=== PATIENT | male | born 1970 | race African-American/Black ===

== ENCOUNTER 2017-01-31 13:18 | Emergency (ER) | payer OTHER ==
[~2017-01-31] VITALS: Ht 188 cm; Wt 132.0 kg
[~2017-01-31 13:18] MED LIST: ALPR1TAB3 PO; ESCI10TA17 PO; ESCI1TAB18 PO; FLUT0.15 NAE; METO100T44 PO; RTL20 PO; WARF5TAB7 PO; ZOLP10TA PO
[2017-01-31 13:23] VITALS: TEMP 37; Ht 188 cm; Wt 132.0 kg
[2017-01-31] MEDS ORDERED: OXYCODONE HCL IR 5 MG TAB (IMMEDIATE RELEASE) PO STA (13:48)
[2017-01-31] MEDS ORDERED: METHYLPREDNISOLONE 125 MG VIAL IV STA (13:48)
[2017-01-31] MEDS ORDERED: DiphenhydrAMINE HCL 50 MG/ML VIAL IV STA (13:48)
[2017-01-31] MEDS ORDERED: SODIUM CHLORIDE 0.9% 1000ML 1,000 ML IV STA (13:48)
--- NOTE | 2017-01-31 13:51 | EMERGENCY ROOM VISIT NOTE ---
History Report prepared by Chad: Rohan Renteria Under the Supervision of: Dr. Nasim Ramirez D.O. First contact with patient: 13:42 Chief Complaint: CHEST INJURY Stated Complaint: CHEST PAIN - HURT LIFTING AND BAR FELL ON HIM History of Present Illness The patient is a 46 year old male who presents to the Emergency Room with complaints of an acute chest injury that occurred yesterday. The patient was lifting weights when his left side gave out. The weights fell off of the bar then the bar hit his left chest / shoulder area. The patient woke up with significant pain / muscle spasm in the area. He notes swelling in the area along with bruising. The patient denies fevers or chills. He has had some nonproductive dry coughing. The patient is prescribed Coumadin for a history of multiple pulmonary emboli. He ran out of Coumadin and has been off of it for two weeks. The patient is also on Lexapro, Xanax, Ambien, and Ritalin. He is s/ o colorectal surgery for a fissure. The patient denies tobacco or alcohol use. Source of History: patient Onset: yesterday Position: chest (left) Quality: other (injury) Timing: other (acute) Associated Symptoms: + cough, No chills, No fevers Review of Systems See HPI for pertinent positives & negatives. A total of 10 systems reviewed and were otherwise negative. 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 (23) Pharyngitis (24) Pleuritic chest pain (25) Prediabetes (26) Substernal chest pain (27) Suspected pulmonary embolism Surgical Problems: (1) H/O colonoscopy (2) H/O esophagogastroduodenoscopy (3) History of muscle biopsy (4) History of rectal surgery (5) S/P cardiac catheterization Family History Blood clots FH: brain aneurysm MOTHER (mother, age 32) Social History Smoking Status: Never Smoker Alcohol Use: occasionally Drug Use: none Marital Status: single Housing Status: lives alone Occupation Status: disabled Current/Historical Medications Scheduled Alprazolam (Xanax), 1 MG PO TID Escitalopram (Lexapro), 10 MG PO DAILY Escitalopram Oxalate (Lexapro), 20 MG PO DAILY Methylphenidate (Ritalin), 20 MG PO BID Metoprolol Succ (Toprol Xl) (Toprol-Xl ), 100 MG PO DAILY Warfarin Sod (Jantoven), 10 MG PO DAILY Warfarin Sodium (Coumadin), 5 MG PO DAILY Zolpidem Tartrate (Ambien), 10 MG PO HS Scheduled PRN Fluticasone Propionate (Nasal) (Flonase Allergy Relief), 2 SPRAYS WALDEMAR DAILY PRN for ALLERGIC REACTION Oxycodone Immediate Rel Tab (Roxicodone Ir), 1-2 TAB PO Q4H PRN for Severe Pain Allergies Coded Allergies: Iodine (Verified Allergy, Severe, THROAT SWELLING, 01/31/17) 02/18/13: patient denies IV contrast allergy Patient has been pre-treated in the past with methylprednisolone and diphenhydramine without incident following IV dye administration. Shellfish (Verified Allergy, Severe, THROAT SWELLING, 01/31/17) Iodinated Diagnostic Agents (Verified Allergy, Unknown, swelling, 01/31/17) Plasma, Human (Verified Allergy, Unknown, ANAPHYLAXIS, 01/31/17) Acetaminophen (Verified Adverse Reaction, Unknown, GI ISSUES, 01/31/17) Hydrocodone (Verified Adverse Reaction, Unknown, GI ISSUES, 01/31/17) Physical Exam Vital Signs Date Time Temp Pulse Resp B/P Pulse Ox O2 Delivery O2 Flow Rate FiO2 01/31/17 17:25 96 20 152/89 96 Room Air 01/31/17 16:21 87 01/31/17 15:34 85 18 149/99 96 Room Air 01/31/17 14:18 97 01/31/17 14:18 87 18 146/102 97 Room Air 01/31/17 14:18 97 Room Air 01/31/17 13:23 37.0 89 18 151/96 94 Physical Exam GENERAL: Patient is awake, alert, and in no acute distress. Patient is resting comfortably and showing no signs of anxiety EYES: The conjunctivae are clear. The pupils are round and reactive. EARS, NOSE, MOUTH AND THROAT: The nose is without any evidence of any deformity. Mucous membranes are moist tongue is midline NECK: The neck is nontender and supple. RESPIRATORY: Normal respiratory effort is noted there is no evidence of wheezing rhonchi or rales CARDIOVASCULAR: Regular rate and rhythm noted there no murmurs rubs or gallops normal S1 normal S2 GASTROINTESTINAL: The abdomen is soft. Bowel sounds are present in all quadrants. Abdomen is nontender MUSCULOSKELETAL/EXTREMITIES: There is no evidence of gross deformity full range of motion is noted in the hips and shoulders. Significant ecchymosis and tenderness to the left anterior chest wall. SKIN: There is no obvious evidence of any rash. There are no petechiae, pallor or cyanosis noted. NEUROLOGIC: Patient is awake alert and oriented x3. Medical Decision & Procedures ER Provider Diagnostic Interpretation: CT results as stated below per my review and radiologist interpretation. CHEST CTA for PULMONARY ARTERIES CT DOSE: 789.95 mGy.cm HISTORY: Chest pain dyspnea TECHNIQUE: Multiaxial CT images of the chest were performed following the intravenous administration of contrast to evaluate the pulmonary arteries. Maximal intensity projection images were also obtained. COMPARISON STUDY: None. FINDINGS: There is a normal caliber thoracic aorta with no evidence for dissection. There is no evidence for pulmonary embolus. No pleural effusions. No pneumothorax. The liver and spleen are unremarkable. No mediastinal or hilar lymphadenopathy. The central airways are patent. The lungs are clear. Fatty infiltration of liver. IMPRESSION: No evidence for pulmonary embolus. Lungs are clear Electronically signed by: Michael Cabrera M.D. 01/31/2017 4:25 PM Dictated Date/Time: 01/31/2017 4:24 PM Laboratory Results 01/31/17 13:50 Red Blood Count 4.59, Mean Corpuscular Volume 89.8, Mean Corpuscular Hemoglobin 30.5, Mean Corpuscular Hemoglobin Concent 34.0, Mean Platelet Volume 12.3, Neutrophils (%) (Auto) 51.1, Lymphocytes (%) (Auto) 38.5, Monocytes (%) (Auto) 5.7, Eosinophils (%) (Auto) 4.2, Basophils (%) (Auto) 0.3, Neutrophils # (Auto) 3.02, Lymphocytes # (Auto) 2.28, Monocytes # (Auto) 0.34, Eosinophils # (Auto) 0.25, Basophils # (Auto) 0.02 01/31/17 13:50 Test 01/31/17 13:50 01/31/17 14:05 White Blood Count 5.92 K/uL (4.8-10.8) Red Blood Count 4.59 M/uL (4.7-6.1) Hemoglobin 14.0 g/dL (14.0-18.0) Hematocrit 41.2 % (42-52) Mean Corpuscular Volume 89.8 fL (80-100) Mean Corpuscular Hemoglobin 30.5 pg (25-34) Mean Corpuscular Hemoglobin Concent 34.0 g/dl (32-36) Platelet Count 190 K/uL (130-400) Mean Platelet Volume 12.3 fL (7.4-10.4) Neutrophils (%) (Auto) 51.1 % Lymphocytes (%) (Auto) 38.5 % Monocytes (%) (Auto) 5.7 % Eosinophils (%) (Auto) 4.2 % Basophils (%) (Auto) 0.3 % Neutrophils # (Auto) 3.02 K/uL (1.4-6.5) Lymphocytes # (Auto) 2.28 K/uL (1.2-3.4) Monocytes # (Auto) 0.34 K/uL (0.11-0.59) Eosinophils # (Auto) 0.25 K/uL (0-0.5) Basophils # (Auto) 0.02 K/uL (0-0.2) RDW Standard Deviation 45.3 fL (36.4-46.3) RDW Coefficient of Variation 13.9 % (11.5-14.5) Immature Granulocyte % (Auto) 0.2 % Immature Granulocyte # (Auto) 0.01 K/uL (0.00-0.02) Prothrombin Time 11.5 SECONDS (9.0-12.0) Prothromb Time International Ratio 1.1 (0.9-1.1) Activated Partial Thromboplast Time 27.9 SECONDS (21.0-31.0) Partial Thromboplastin Ratio 1.1 Est Creatinine Clear Calc Drug Dose 90.8 ml/min Estimated GFR () 64.7 Estimated GFR (Non- 55.8 BUN/Creatinine Ratio 8.5 (10-20) Calcium Level 8.3 mg/dl (8.5-10.1) Total Bilirubin 0.5 mg/dl (0.2-1) Aspartate Amino Transf (AST/SGOT) 194 U/L (15-37) Alanine Aminotransferase (ALT/SGPT) 255 U/L (12-78) Alkaline Phosphatase 99 U/L (45-117) Total Creatine Kinase 1334 U/L (39-308) Creatine Kinase MB 7.6 ng/ml (0.5-3.6) Creatine Kinase MB Ratio 0.6 (0-3.0) Troponin I < 0.015 ng/ml (0-0.045) Total Protein 8.2 gm/dl (6.4-8.2) Albumin 3.7 gm/dl (3.4-5.0) Globulin 4.5 gm/dl (2.5-4.0) Albumin/Globulin Ratio 0.8 (0.9-2) Bedside Hemoglobin 14.6 g/dl (14.0-18.0) Bedside Hematocrit 43 % (42-52) Bedside Sodium 142 mEq/L (135-144) Bedside Potassium 3.7 mEq/L (3.3-5.0) Bedside Chloride 101 mEq/L (101-112) Bedside Total CO2 25 mEq/l (24-31) Anion Gap 21.0 mmol/L (16-25) Bedside Blood Urea Nitrogen 13 mg/dl (7-18) Bedside Creatinine 1.3 mg/dl (0.6-1.3) Bedside Glucose (other) 120 mg/dl (70-99) Bedside Ionized Calcium (Howard) 1.11 mmol/l (1.12-1.32) Laboratory results per my review. Medications Administered Medications (Trade) Dose Ordered Sig/Roxie Route Start Time Stop Time Status Last Admin Dose Admin Sodium Chloride (Nss 1000ml) 1,000 ml @ 125 mls/hr Q8H STAT IV 01/31/17 13:48 01/31/17 17:57 DC 01/31/17 14:23 125 MLS/HR Oxycodone HCl (Roxicodone Immediate Rel Tab) 10 mg NOW STAT PO 01/31/17 13:48 01/31/17 13:52 DC 01/31/17 14:23 10 MG Methylprednisolone Sodium Succinate (Solu-Medrol IV) 125 mg NOW STAT IV 01/31/17 13:48 01/31/17 13:52 DC 01/31/17 14:23 125 MG Diphenhydramine HCl (Benadryl Inj) 25 mg NOW STAT IV 01/31/17 13:48 01/31/17 13:52 DC 01/31/17 14:23 25 MG ECG Indication: chest pain Rate (beats per minute): 83 Rhythm: normal sinus Findings: no ectopy, other (lateral and inferior T wave abnormalities) Comparison ECG Date: 2015 Change: no significant change ED Course 1343: The patient was evaluated in room B9. A complete history and physical examination were performed. 1348: Benadryl 25 mg IV, Solu-Medrol 125 mg IV, Oxycodone IR 10 mg PO, NSS 1000 ml @ 125 mls/hr. 1700: Reassessed the patient. Discussed the findings with him. He verbalized understanding and agreement of the treatment plan. The patient is ready for discharge. Medical Decision Prior records/ancillary studies reviewed. Triage Nursing notes reviewed. The patient's history was concerning for chest pain. Differential diagnosis: Etiologies such as cardiac ischemia, aortic dissection, pulmonary embolism, pneumonia, pneumothorax, musculoskeletal, infections, pericarditis, myocarditis , esophageal rupture, gastrointestinal, as well as others were entertained. The patient is a 46-year-old male who presented to the emergency department for evaluation musculoskeletal left chest wall pain. The patient was lifting weights with the weight bar came down onto his left chest wall. The patient had ecchymosis and tenderness over this area. He also wanted to be evaluated because he stop taking his Coumadin. The patient doesn't a history of venous thromboembolic disease and pulmonary embolism. The patient had not taken his Coumadin in 3 weeks. He wished to have this refilled. I was concerned about starting him back on his Coumadin because of the large chest wall hematoma. For this reason further studies were undertaken to evaluate for venous thrombolic disease. I discussed the patient's laboratory radiographic studies with him. I also discussed his case with the emergency department case packer. He was able to be evaluated by them and set up with an appointment with the Coumadin clinic for next week. He was encouraged to rest and avoid any strenuous activity. He was encouraged to start the Coumadin next Friday and less the left chest wall hematoma and worsen. He also had an elevated CPK in the emergency department. This was noted to be on a previous exam as well. I'm unsure if this represents muscle injury from the chest wall injury or some other underlying process. He was encouraged to have this laboratory rechecked again next week with his primary care physician. He was also encouraged to return to the emergency department immediately if symptoms change worsen or the need arises. Impression Primary Impression: Contusion of left chest wall Additional Impressions: Left pectoral muscle injury History of pulmonary embolus (PE) Scribe Attestation The scribe's documentation has been prepared under my direction and personally reviewed by me in its entirety. I confirm that the note above accurately reflects all work, treatment, procedures, and medical decision making performed by me. Departure Information Dispostion Home / Self-Care Prescriptions Warfarin Sodium (COUMADIN) 5 Mg Tab 5 MG PO DAILY, #31 TAB Prov: Nasim Ramirez, 01/31/17 Oxycodone Immediate Rel Tab (ROXICODONE IR) 5 Mg Tab 1-2 TAB PO Q4H Y for Severe Pain, #25 TAB Prov: Nasim Ramirez DO 01/31/17 Referrals No Doctor, Assigned (PCP) Forms IMPORTANT VISIT INFORMATION Patient Instructions ED Contusion Chest Wall, ED Strain Muscle Ext, My [facility] Additional Instructions Rest and avoid any strenuous activity. Have your blood work rechecked by your family this week. Continue taking the Coumadin next FridayFebruary 05. Start by taking 2 pills at night followed by one pill every night thereafter. Do not start taking the Coumadin if the swelling pain and bruising on your left chest wall is worsened. Problem Qualifiers Primary Impression: Contusion of left chest wall Encounter type: initial encounter Qualified Codes: S20.212A - Contusion of left front wall of thorax, initial encounter
[2017-01-31 14:10] LABS: BASO % 0.3 %; BASO ABS # 0.02 K/uL (0-0.2); COMPLETE YES; EOS % 4.2 %; HEMATOCRIT 41.2 % (42-52); IG% 0.2 %; LYMPH % 38.5 %; LYMPH ABS # 2.28 K/uL (1.2-3.4); MEAN CELL VOLUME 89.8 fL (80-100); MEAN CORPUSCULAR HEMOGLOBIN 30.5 pg (25-34); MEAN PLATELET VOLUME 12.3 fL (7.4-10.4); MONO % 5.7 %; NEUT % 51.1 %; PLATELET COUNT 190 K/uL (130-400); RED BLOOD COUNT 4.59 M/uL (4.7-6.1); WHITE BLOOD COUNT 5.92 K/uL (4.8-10.8)
[2017-01-31 14:18] VITALS: O2SAT 97
[2017-01-31 14:18] LABS: ISTAT CREATININE 1.3 mg/dl (0.6-1.3); ISTAT HEMOGLOBIN 14.6 g/dl (14.0-18.0); ISTAT IONIZED CALCIUM 1.11 mmol/l (1.12-1.32)
[2017-01-31 14:19] LABS: INR 1.1 (0.9-1.1); PARTIAL THROMBOPLASTIN RATIO 1.1; PROTHROMBIN TIME (PATIENT) 11.5 SECONDS (9.0-12.0)
[2017-01-31] MEDS ORDERED: OPTIRAY 320 IV PRN (14:30)
[2017-01-31 14:33] LABS: ALT/SGPT 255 U/L (12-78); AST/SGOT 194 U/L (15-37); BLOOD UREA NITROGEN 13 mg/dl (7-18); BUN/CREATININE RATIO 8.5 (10-20); CALCIUM 8.3 mg/dl (8.5-10.1); CARBON DIOXIDE 30 mmol/L (21-32); CHLORIDE 105 mmol/L (98-107); GLUCOSE 123 mg/dl (70-99); POTASSIUM 3.7 mmol/L (3.5-5.1); SODIUM 140 mmol/L (136-145)
[2017-01-31 14:49] LABS: ALB/GLOB RATIO 0.8 (0.9-2); ALKALINE PHOSPHATASE 99 U/L (45-117); CKMB/CK RATIO 0.6 (0-3.0)
--- NOTE | 2017-01-31 16:28 | DIAGNOSTIC IMAGING REPORT ---
CHEST CTA for PULMONARY ARTERIES CT DOSE: 789.95 mGy.cm HISTORY: Chest pain dyspnea TECHNIQUE: Multiaxial CT images of the chest were performed following the intravenous administration of contrast to evaluate the pulmonary arteries. Maximal intensity projection images were also obtained. COMPARISON STUDY: None. FINDINGS: There is a normal caliber thoracic aorta with no evidence for dissection. There is no evidence for pulmonary embolus. No pleural effusions. No pneumothorax. The liver and spleen are unremarkable. No mediastinal or hilar lymphadenopathy. The central airways are patent. The lungs are clear. Fatty infiltration of liver. IMPRESSION: No evidence for pulmonary embolus. Lungs are clear Electronically signed by: Michael Cabrera M.D. 01/31/2017 4:25 PM Dictated Date/Time: 01/31/2017 4:24 PM
[2017-01-31] MEDS ORDERED: OXYC1TAB3 PO (16:59)
[2017-01-31] MEDS ORDERED: WARF5TAB90 PO (16:59)
[2017-01-31 17:25] VITALS: BP 152/89; PULSE 96; O2SAT 96
[2017-02-27] MEDS ORDERED: DXY100 PO (09:58)
[2017-02-27] MEDS ORDERED: CYCL10TA6 PO (09:58)
[2017-02-27] MEDS ORDERED: GLC/500 PO (09:58)
[2017-02-27] MEDS ORDERED: RXC5 PO (09:58)
[2017-03-11] MEDS ORDERED: RXC5 PO (13:39)
[2017-03-11] MEDS ORDERED: NVLGIPEN SC (13:39)
[2017-04-10] MEDS ORDERED: INSDGIPEN SQ (03:59)
[2017-04-10] MEDS ORDERED: CYCL10TA6 PO (04:00)
[2017-04-10] MEDS ORDERED: METFTAB PO (04:02)
[2017-04-10] MEDS ORDERED: OXYC1TAB3 PO (04:03)
[2017-04-10] MEDS ORDERED: RIVA1TAB4 PO (04:04)
[2017-04-11] MEDS ORDERED: PANT40TA PO (14:37)
[2017-06-15] MEDS ORDERED: METO100T44 PO ×2 (11:39→12:07)
[2017-06-15] MEDS ORDERED: MRLP17X OR ×2 (11:39→12:07)
[2017-06-15] MEDS ORDERED: SENN-65 PO ×2 (11:39→12:07)
[2017-07-24] MEDS ORDERED: ESCI1TAB18 PO (19:08)
[2017-07-24] MEDS ORDERED: OXYC1TAB3 PO (19:08)
[2017-07-24] MEDS ORDERED: CYCL10TA6 PO (19:08)
[2017-07-24] MEDS ORDERED: PANT40TA PO (19:08)
[2017-07-24] MEDS ORDERED: NVLG SQ (19:08)
[2017-07-24] MEDS ORDERED: ESCI10TA17 PO (19:08)
[2017-07-24] MEDS ORDERED: METFTAB PO (19:08)
[2017-07-24] MEDS ORDERED: INSDGIPEN SQ (19:08)
== END 2017-01-31 17:32 | disposition home or self-care (01) ==
LOC: C.EDB 13:21
DX: S20.212A Contusion of left front wall of thorax, initial encounter (principal); S29.011A Strain of muscle and tendon of front wall of thorax, initial encounter; R05 Cough; M62.838 Other muscle spasm; N18.3 Chronic kidney disease, stage 3 (moderate); I12.9 Hypertensive chronic kidney disease with stage 1 through stage 4 chronic kidney disease, or unspecified chronic kidney disease; E78.5 Hyperlipidemia, unspecified; R73.03 Prediabetes; F41.9 Anxiety disorder, unspecified; F32.9 Major depressive disorder, single episode, unspecified; K21.9 Gastro-esophageal reflux disease without esophagitis; Z79.01 Long term (current) use of anticoagulants; Z79.899 Other long term (current) drug therapy; Z86.2 Personal history of diseases of the blood and blood-forming organs and certain disorders involving the immune mechanism; Z86.711 Personal history of pulmonary embolism; Z83.2 Family history of diseases of the blood and blood-forming organs and certain disorders involving the immune mechanism; X50.0XXA Overexertion from strenuous movement or load, initial encounter; Y93.B3 Activity, free weights

== ENCOUNTER 2017-02-24 04:45 | Inpatient (IN) | payer OTHER ==
[~2017-02-24] VITALS: Ht 188 cm; Wt 138.4 kg
[~2017-02-24 04:45] MED LIST changes: +OXYC1TAB3 PO; +WARF5TAB90 PO
--- NOTE | 2017-02-24 05:08 | EMERGENCY ROOM VISIT NOTE ---
History Report prepared by Chad: Wily Rodriguez Under the Supervision of: Dr. Sharee Lebron D.O. First contact with patient: 04:52 Chief Complaint: ILLNESS Stated Complaint: HEADACHE,CHEST,BACK AND JOINT PAIN History of Present Illness The patient is a 46 year old male who presents to the Emergency Room with complaints of globalized pain that began last night. He rates his pain a 7/10 in severity. At this time, the patient began having pain in multiple places. He is experiencing muscular pain, joint pain, headache, chest pain, and back pain. His joint pain is in his elbows, fingers, shoulders, and muscle pain in his quadriceps. He denies any calf tenderness or pedal edema. He is also experiencing nausea, vomiting, chills, and diaphoresis. He has not been working out recently. He has a past medical history of 4 pulmonary embolisms and multiple re-current episodes of myositis/rhabdomyolysis. Source of History: patient Onset: last night Position: other (global) Symptom Intensity: 7/10 Quality: ache Timing: constant Associated Symptoms: + back pain, + chest pain, + chills, + diaphoresis, + fevers, + nausea, + vomiting Note: He has finger pain, elbow pain, shoulder pain, and quadriceps pain. He denies any calf tenderness or pedal edema. Review of Systems See HPI for pertinent positives & negatives. A total of 10 systems reviewed and were otherwise negative. 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 (25) Pharyngitis (26) Pleuritic chest pain (27) Prediabetes (28) Substernal chest pain (29) Suspected pulmonary embolism (30) Transaminitis Surgical Problems: (1) H/O colonoscopy (2) H/O esophagogastroduodenoscopy (3) History of muscle biopsy (4) History of rectal surgery (5) S/P cardiac catheterization Family History Blood clots FH: brain aneurysm MOTHER (mother, age 32) Social History Smoking Status: Never Smoker Alcohol Use: occasionally Drug Use: none Marital Status: single Housing Status: lives alone Occupation Status: disabled Current/Historical Medications Scheduled Alprazolam (Xanax), 1 MG PO TID Escitalopram (Lexapro), 10 MG PO DAILY Escitalopram Oxalate (Lexapro), 20 MG PO DAILY Methylphenidate (Ritalin), 20 MG PO BID Metoprolol Succ (Toprol Xl) (Toprol-Xl ), 150 MG PO DAILY Warfarin Sod (Jantoven), 5 MG PO DAILY Zolpidem Tartrate (Ambien), 10 MG PO HS Scheduled PRN Cyclobenzaprine Hcl (Flexeril), 10 MG PO TID PRN for Muscle Spasms Fluticasone Propionate (Nasal) (Flonase Allergy Relief), 2 SPRAYS WALDEMAR DAILY PRN for ALLERGIC REACTION Allergies Coded Allergies: Iodine (Verified Allergy, Severe, THROAT SWELLING, 02/24/17) 02/18/13: patient denies IV contrast allergy Patient has been pre-treated in the past with methylprednisolone and diphenhydramine without incident following IV dye administration. Shellfish (Verified Allergy, Severe, THROAT SWELLING, 02/24/17) Iodinated Diagnostic Agents (Verified Allergy, Unknown, swelling, 02/24/17) Plasma, Human (Verified Allergy, Unknown, ANAPHYLAXIS, 02/24/17) Acetaminophen (Verified Adverse Reaction, Unknown, GI ISSUES, 02/24/17) Hydrocodone (Verified Adverse Reaction, Unknown, GI ISSUES, 02/24/17) Physical Exam Vital Signs Date Time Temp Pulse Resp B/P Pulse Ox O2 Delivery O2 Flow Rate FiO2 02/24/17 07:24 37.5 105 27 142/91 93 Room Air 02/24/17 07:17 105 02/24/17 06:52 38.8 110 21 142/91 93 Room Air 02/24/17 05:53 111 20 144/96 91 Room Air 02/24/17 05:36 Room Air 02/24/17 05:16 112 02/24/17 04:49 38.5 118 18 189/97 97 Room Air Physical Exam HEENT: Head - normocephalic and atraumatic Pupils are equal, round, and reactive to light. Extraocular eye muscles are intact, and sclera are anicteric. Nose - moist nasal mucosa without discharge. Mouth - moist buccal mucosa. Oropharynx is nonerythematous and there is no tonsillar exudate or edema noted. Neck: Supple; no JVD, nuchal rigidity, cervical lymphadenopathy, or auscultated bruits. Heart: Tachycardic rate and regular rhythm. There is a normal S1 and S2 with no murmurs, clicks, or gallops appreciated. Lungs: Clear to auscultation bilaterally with no wheezes, rales, or rhonchi. Abdomen: Soft, completely nontender, nondistended, with good bowel sounds. There are no palpable pulsatile masses or hepatosplenomegaly. There is no guarding, rigidity, or rebound noted. Extremities: No evidence of cyanosis, clubbing, or edema. There are easily palpable peripheral pulses. The patient does have some discomfort with palpation to his quadriceps. Skin: warm and slightly diaphoretic with good turgor and no rashes. Medical Decision & Procedures ER Provider Diagnostic Interpretation: Radiology results as stated below per my review and the radiologist's interpretation: PORTABLE CHEST X-RAY: Significantly under penetrative, cardiomegaly, no obvious pulmonary findings. Per me [CT RESULTS] Laboratory Results 02/24/17 05:18 Red Blood Count 5.07, Mean Corpuscular Volume 88.0, Mean Corpuscular Hemoglobin 31.0, Mean Corpuscular Hemoglobin Concent 35.2, Mean Platelet Volume 12.8, Neutrophils (%) (Auto) 78.1, Lymphocytes (%) (Auto) 15.3, Monocytes (%) (Auto) 3.9, Eosinophils (%) (Auto) 2.2, Basophils (%) (Auto) 0.3, Neutrophils # (Auto) 5.08, Lymphocytes # (Auto) 0.99, Monocytes # (Auto) 0.25, Eosinophils # (Auto) 0.14, Basophils # (Auto) 0.02 02/24/17 05:18 Test 02/24/17 03:18 02/24/17 05:10 5/15/17 05:18 02/24/17 05:27 Lyme Disease IgG Antibody NEG (NEG) Lyme Disease IgM Antibody NEG (NEG) Hepatitis B Surface Antigen NEG (NEG) Hepatitis C Antibody NEG (NEG) Urine Color DK YELLOW Urine Appearance CLEAR (CLEAR) Urine pH 5.5 (4.5-7.5) Urine Specific [place] 1.033 (1.000-1.030) Urine Protein 2+ (NEG) Urine Glucose (UA) 3+ (NEG) Urine Ketones TRACE (NEG) Urine Occult Blood 1+ (NEG) Urine Nitrite NEG (NEG) Urine Bilirubin NEG (NEG) Urine Urobilinogen NEG (NEG) Urine Leukocyte Esterase NEG (NEG) Urine WBC (Auto) 1-5 /hpf (0-5) Urine RBC (Auto) 0-4 /hpf (0-4) Urine Hyaline Casts (Auto) 1-5 /lpf (0-5) Urine Epithelial Cells (Auto) 10-20 /lpf (0-5) Urine Bacteria (Auto) NEG (NEG) White Blood Count 6.49 K/uL (4.8-10.8) Red Blood Count 5.07 M/uL (4.7-6.1) Hemoglobin 15.7 g/dL (14.0-18.0) Hematocrit 44.6 % (42-52) Mean Corpuscular Volume 88.0 fL (80-100) Mean Corpuscular Hemoglobin 31.0 pg (25-34) Mean Corpuscular Hemoglobin Concent 35.2 g/dl (32-36) Platelet Count 178 K/uL (130-400) Mean Platelet Volume 12.8 fL (7.4-10.4) Neutrophils (%) (Auto) 78.1 % Lymphocytes (%) (Auto) 15.3 % Monocytes (%) (Auto) 3.9 % Eosinophils (%) (Auto) 2.2 % Basophils (%) (Auto) 0.3 % Neutrophils # (Auto) 5.08 K/uL (1.4-6.5) Lymphocytes # (Auto) 0.99 K/uL (1.2-3.4) Monocytes # (Auto) 0.25 K/uL (0.11-0.59) Eosinophils # (Auto) 0.14 K/uL (0-0.5) Basophils # (Auto) 0.02 K/uL (0-0.2) RDW Standard Deviation 40.6 fL (36.4-46.3) RDW Coefficient of Variation 12.8 % (11.5-14.5) Immature Granulocyte % (Auto) 0.2 % Immature Granulocyte # (Auto) 0.01 K/uL (0.00-0.02) Nucleated RBC Absolute Count (auto) 0.00 K/uL (0-0) Nucleated Red Blood Cells % 0.0 % Peripheral Blood Smear Path Consult Prothrombin Time 12.1 SECONDS (9.0-12.0) Prothromb Time International Ratio 1.1 (0.9-1.1) Activated Partial Thromboplast Time 27.2 SECONDS (21.0-31.0) Partial Thromboplastin Ratio 1.0 Anion Gap 8.0 mmol/L (3-11) Est Creatinine Clear Calc Drug Dose 93.1 ml/min Estimated GFR () 64.7 Estimated GFR (Non- 55.8 BUN/Creatinine Ratio 9.7 (10-20) Estimated Average Glucose 203 mg/dl Hemoglobin A1c 8.7 % (4.5-5.6) Calcium Level 9.2 mg/dl (8.5-10.1) Total Bilirubin 0.4 mg/dl (0.2-1) Aspartate Amino Transf (AST/SGOT) 194 U/L (15-37) Alanine Aminotransferase (ALT/SGPT) 182 U/L (12-78) Alkaline Phosphatase 169 U/L (45-117) Total Creatine Kinase 1572 U/L (39-308) Troponin I < 0.015 ng/ml (0-0.045) Total Protein 8.7 gm/dl (6.4-8.2) Albumin 3.8 gm/dl (3.4-5.0) Globulin 4.9 gm/dl (2.5-4.0) Albumin/Globulin Ratio 0.8 (0.9-2) Triglycerides Level 336 mg/dl (0-150) Cholesterol Level 187 mg/dl (0-200) HDL Cholesterol 29 mg/dl LDL Cholesterol, Calculated 91 mg/dl VLDL Cholesterol, Calculated 67 mg/dl Cholesterol/HDL Ratio 6.4 Beta-Hydroxybutyric Acid 0.93 mg/dL (0.2-2.81) Bedside Lactic Acid Venous 1.40 mmol/L (0.90-1.70) Laboratory results per my review. Medications Administered Medications (Trade) Dose Ordered Sig/Roxie Route Start Time Stop Time Status Last Admin Dose Admin Acetaminophen (Tylenol Tab) 1,000 mg NOW STAT PO 02/24/17 05:30 02/24/17 05:31 DC 02/24/17 05:51 1,000 MG Ondansetron HCl (Zofran Inj) 4 mg NOW STAT IV 02/24/17 05:45 02/24/17 05:46 DC 02/24/17 05:50 4 MG Hydromorphone HCl (Dilaudid Inj) 2 mg NOW STAT IV 02/24/17 06:52 02/24/17 06:53 DC 02/24/17 06:57 2 MG Procedure Tylenol Tab 1000 mg PO Zofran Inj 4 mg IV ECG Indication: chest pain, back/shoulder pain Rate (beats per minute): 110 Rhythm: sinus tachycardia Findings: T-wave inversion (Lateral), no ectopy Comparison ECG Date: January 2017 Change: no significant change ED Course 0452: Past medical records reviewed. The patient was evaluated in room B10. A complete history and physical exam was performed. A twelve-lead EKG was obtained and compared to previous EKGs and appeared unchanged. An IV lock was initiated and labs are drawn as above. 0530: Ordered Tylenol Tab 1000 mg PO 0545: Ordered Zofran Inj 4 mg IV 0610: The patient is resting comfortably at this time. He is slightly more diaphoretic. His headache is slightly better but still persists. His nausea has resolved. He will go for CT scan of the brain 0705: Upon reevaluation, I discussed findings and results with the patient. We talked about his subtherapeutic INR. He is taking 5 mg of Coumadin as directed. He had previously been taking between 10 and 15 mg of Coumadin. He verbalized agreement of the treatment plan. I spoke with a [facility]. The patient will be evaluated for further management and care. Medical Decision The patient is a 46 year old male who presents to the ED with globalized pain and fever. Differential diagnosis includes recurrent myositis, viral illness, pneumonia, sepsis, and UTI. Laboratory Results: No leukocytosis, stable H&H, BUN 15, creatinine 1.5, glucose 318, lactic acid 1.4, AST 194, ALT 182, alkaline phosphatase 169, total bilirubin normal at 0.4, total ck 1572, BHA 0.93, INR 1.1, Urinalysis and trace ketones 1+ blood. This is a 47-year-old obese black male patient who presents to the emergency department with myalgias, arthralgias, chest pain and fever. The patient has an elevated total CK which is not unusual for him as he has a history of myositis. Chest x-ray was unremarkable. Cardiac enzymes were negative. The patient does have a history of multiple recurrent pulmonary emboli and has a subtherapeutic INR at 1.1. He does currently have fever. I am uncertain as to the source of his fever at this time. He is hemodynamically stable. The patient was noted be significantly hyperglycemic. He has been told in the past that he was prediabetic. The patient was given IV Dilaudid which did seem to help the chest discomfort as well as the other arthralgias and myalgias. The patient's headache had persisted so a CT scan of the brain was performed and was negative. We talked about the possibility of obtaining a CT scan of the chest versus a VQ scan. The patient has had both of these done in the past. I discussed this with the admitting service. I discussed the case with the [facility] hospitalist as well as the [place] resident on service. They will evaluate the patient at this time. Consults Time Called: 0700 Consulting Physician: ASIF Harley Returned Call: 0720 They will be evaluating the patient for further management. Impression Primary Impression: Atypical chest pain Additional Impressions: Hyperglycemia Myositis Headache Subtherapeutic international normalized ratio (INR) Scribe Attestation The scribe's documentation has been prepared under my direction and personally reviewed by me in its entirety. I confirm that the note above accurately reflects all work, treatment, procedures, and medical decision making performed by me. Departure Information Dispostion Being Evaluated By Hospitalist Referrals No Doctor, Assigned (PCP) Patient Instructions My [facility] Problem Qualifiers
[2017-02-24 05:25] LABS: URINE APPEARANCE CLEAR (CLEAR); URINE BILIRUBIN NEG (NEG); URINE COLOR DK YELLOW; URINE NITRITE NEG (NEG); URINE PH 5.5 (4.5-7.5); URINE SPECIFIC GRAVITY 1.033 (1.000-1.030); UROBILINOGEN NEG (NEG); ZZUR CULT IF INDIC CLEAN CATCH NO
[2017-02-24] MEDS ORDERED: ACETAMINOPHEN 500 MG TAB PO STA (05:30)
[2017-02-24 05:40] LABS: MANUAL MICROSCOPIC REQUIRED? NO; REVIEW REQ? NO
[2017-02-24 05:41] LABS: BASO % 0.3 %; BASO ABS # 0.02 K/uL (0-0.2); COMPLETE YES; EOS % 2.2 %; HEMATOCRIT 44.6 % (42-52); IG% 0.2 %; LYMPH % 15.3 %; LYMPH ABS # 0.99 K/uL (1.2-3.4); MEAN CORPUSCULAR HGB CONC 35.2 g/dl (32-36); MEAN PLATELET VOLUME 12.8 fL (7.4-10.4); MONO % 3.9 %; NEUT % 78.1 %; PLATELET COUNT 178 K/uL (130-400); RED BLOOD COUNT 5.07 M/uL (4.7-6.1); WHITE BLOOD COUNT 6.49 K/uL (4.8-10.8)
[2017-02-24] MEDS ORDERED: ONDANSETRON INJ 2 MG/ML 2 ML VIAL IV STA (05:45)
[2017-02-24 05:52] LABS: INR 1.1 (0.9-1.1); PROTHROMBIN TIME (PATIENT) 12.1 SECONDS (9.0-12.0)
[2017-02-24 06:06] LABS: ALT/SGPT 182 U/L (12-78); AST/SGOT 194 U/L (15-37); BLOOD UREA NITROGEN 15 mg/dl (7-18); BUN/CREATININE RATIO 9.7 (10-20); CALCIUM 9.2 mg/dl (8.5-10.1); CARBON DIOXIDE 29 mmol/L (21-32); CHLORIDE 99 mmol/L (98-107); GLUCOSE 318 mg/dl (70-99); POTASSIUM 3.5 mmol/L (3.5-5.1); SODIUM 136 mmol/L (136-145)
[2017-02-24] MEDS ORDERED: CYCL10TA6 PO (06:11)
[2017-02-24 06:14] LABS: ALB/GLOB RATIO 0.8 (0.9-2); ALKALINE PHOSPHATASE 169 U/L (45-117)
[2017-02-24 06:21] LABS: BETA-HYDROXYBUTYRATE 0.93 mg/dL (0.2-2.81)
--- NOTE | 2017-02-24 06:34 | DIAGNOSTIC IMAGING REPORT ---
CHEST ONE VIEW PORTABLE CLINICAL HISTORY: Sepsis dyspnea COMPARISON STUDY: 08/23/2016 FINDINGS: Mild stable cardia megaly. Lungs are clear. Diaphragms smooth. IMPRESSION: Mild stable cardia megaly. Otherwise negative study Electronically signed by: Michael Cabrera M.D. 02/24/2017 6:33 AM Dictated Date/Time: 02/24/2017 6:33 AM
--- NOTE | 2017-02-24 06:51 | DIAGNOSTIC IMAGING REPORT ---
CT HEAD WITHOUT CONTRAST (CT) CLINICAL HISTORY: headache CHEST PAIN. JOINT PAIN. COMPARISON STUDY: 06/21/2015 TECHNIQUE: Axial CT of the brain is performed from the vertex to the skull base. IV contrast was not administered for this examination. CT DOSE: 614.27 mGy.cm FINDINGS: No intra or extra-axial mass lesions are visualized. There is no CT evidence of acute cortical infarction. There is no evidence of midline shift. There is no acute hemorrhage. No calvarial fractures are visualized. There is no evidence of pathologic ventricular dilatation. There is no evidence of acute sinusitis IMPRESSION: No acute intracranial findings Electronically signed by: Prakash Flores M.D. 02/24/2017 6:50 AM Dictated Date/Time: 02/24/2017 6:49 AM
[2017-02-24] MEDS ORDERED: HYDROmorphone INJ 2 MG/ML SYR/VIAL IV STA (06:52)
[2017-02-24 07:24] VITALS: BP 142/91; PULSE 105; TEMP 37.5; O2SAT 93; BMI 39.2
[2017-02-24] MEDS ORDERED: FLUTICASONE PROPIONATE NA SPR 16 GM BTL NAE PRN (08:00)
[2017-02-24] MEDS ORDERED: IBUPROFEN 200 MG TAB PO PRN (08:00)
[2017-02-24] MEDS ORDERED: ONDANSETRON INJ 2 MG/ML 2 ML VIAL IV PRN (08:00)
[2017-02-24] MEDS ORDERED: ZOLPIDEM TARTRATE 5 MG TAB PO PRN (08:00)
[2017-02-24] MEDS: MoRPHine SULFATE 4 MG/ML 1 ML CARP\\VIAL IV PRN ×2 (08:53→15:52)
[2017-02-24 09:19] LABS: LYME DISEASE AB IGG NEG (NEG); LYME DISEASE AB IGM NEG (NEG)
[2017-02-24 09:31] VITALS: BP 125/84; PULSE 109; TEMP 36.9; O2SAT 93
[2017-02-24] MEDS ORDERED: ENOXAPARIN 150 MG/1ML SYR SQ ONE (09:47)
[2017-02-24 10:02] LABS: ESTIMATED AVERAGE GLUCOSE 203 mg/dl; HA1C FLAG Normal (Normal)
[2017-02-24] MEDS: SODIUM CHLORIDE 0.9% 1000ML 1,000 ML IV SCH ×3 (11:11→21:46)
[2017-02-24 11:21] LABS: CHOLESTEROL/HDL RATIO 6.4
[2017-02-24] MEDS: ENOXAPARIN 150 MG/1ML SYR SQ SCH ×2 (11:27→20:43)
[2017-02-24] MEDS: ALPRAZOLAM 0.5 MG TAB PO SCH ×2 (13:03→20:41)
[2017-02-24] MEDS: INSULIN ASPART 100 UNITS/ML 3 ML PEN SC SCH ×3 (13:09→21:46)
[2017-02-24] MEDS ORDERED: CYCLOBENZAPRINE HCL 10 MG TAB PO PRN (14:15)
[2017-02-24] MEDS: CYCLOBENZAPRINE HCL 5 MG TAB PO PRN ×2 (14:20→19:08)
[2017-02-24] MEDS: ESCITALOPRAM OXALATE 10 MG TAB PO SCH (14:20)
[2017-02-24] MEDS: ESCITALOPRAM OXALATE 20 MG TAB PO SCH (14:20)
[2017-02-24 14:22] VITALS: BP 177/80; PULSE 105; TEMP 38.8; O2SAT 93
--- NOTE | 2017-02-24 14:23 | History and Physical ---
History & Physical Date & Time of Service: February 24, 2017 at 13:47 Chief Complaint: Fever And Chills, Myositis, Transaminitis Primary Care Physician: No Doctor, Assigned History of Present Illness Source: patient This is a 46 yo m with auto immune myositis, history of pulmonary emboli that is presenting to us with worsening mylagias and fever. The patient states that last night he started to feel generally "unwell" and felt hot and flushed. He did try taking an Ibuprofen but felt nauseated and actually vomited the Ibuprofen. He also notes that he had worsening mylagias starting last night. Since his symptoms were worsening he came to the ED. In the ED he was found to be febrile as well as a CK elevation and transaminitis. He typically will range from 300-1000so this is unusual for him. He denies any abdominal pain, diarrhea, dysuria or rashes. He complains of joint pain but when trying to determine specific sites of pain it seems to be more generalized in the muscles then the joints. He also complains of a headache which a CT head was done and was WNL. He denies any history of tick bites but does occasionally spend some time outside. He also does have a dog. When asked about exercise he will state he has not been exercising but then on a different occasion will state that he is rather active and spends time on a bike etc. He has been evaluated by [facility] rheumatology in the past and according to the patient the work up was equivocal. He does have a history of pulmonary emboli and is supposed to be taking warfarin 5 mg daily however his INR is subtherapeutic. There is question if patient is compliant with the medication. PDMP reviewed and patient's history is reflective of patient's current medication regimen with occasional oxycodone use for myositis as per patient. Past Medical/Surgical History Medical Problems: (1) BRIDGETTE (acute kidney injury) Status: Resolved (2) Anxiety Status: Chronic (3) Blood clot in vein Status: Resolved (4) Chest pain Status: Resolved (5) Chest pain Status: Resolved (6) Chest wall pain Status: Resolved (7) CKD (chronic kidney disease), stage III Status: Chronic (8) Costochondritis Status: Chronic (9) Depression Status: Chronic (10) Elevated CK Status: Chronic (11) Elevated CK Status: Resolved (12) Elevated CPK Status: Resolved (13) Essential hypertension Status: Chronic (14) GERD (gastroesophageal reflux disease) Status: Chronic (15) Hemoptysis Status: Resolved (16) History of esophageal ulcer Permanent Comment: on EGD 06/23/2014 Status: Chronic (17) History of pleural effusion Status: Resolved (18) Hx of pulmonary embolus Status: Chronic (19) Hyperglycemia Status: Resolved (20) Hyperlipidemia Status: Chronic (21) Hypertension Status: Chronic (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 (23) Pharyngitis Status: Resolved (24) Pleuritic chest pain Status: Resolved (25) Prediabetes Status: Chronic (26) Substernal chest pain Status: Resolved (27) Suspected pulmonary embolism Status: Resolved Surgical Problems: (1) H/O colonoscopy Status: Chronic (2) H/O esophagogastroduodenoscopy Permanent Comment: [id number] esophageal ulcer 06/24/2014- bleeding esophageal ulcer 08/29/2014- Grade B reflux esophagitis 11/21/2014- mild-moderate inflammation Status: Chronic (3) History of muscle biopsy Status: Chronic (4) History of rectal surgery Status: Chronic (5) S/P cardiac catheterization Permanent Comment: 2012- normal coronary arteries Status: Chronic Family History Blood clots FH: brain aneurysm MOTHER (mother, age 32) Social History Smoking Status: Never Smoker Smokeless Tobacco Use: No Alcohol Use: none Drug Use: none Marital Status: single Housing status: lives with family (brother) Occupational Status: disabled Immunizations History of Influenza Vaccine: Yes Influenza Vaccine Date: Jul 18, 2013 History of Tetanus Vaccine?: 2008 Tetanus Immunization Date: Aug 21, 2009 History of Pneumococcal: No History of Hepatitis B Vaccine: No Multi-Drug Resistant Organisms History of MDRO: No Allergies Coded Allergies: Iodine (Verified Allergy, Severe, THROAT SWELLING, 02/24/17) 02/18/13: patient denies IV contrast allergy Patient has been pre-treated in the past with methylprednisolone and diphenhydramine without incident following IV dye administration. Shellfish (Verified Allergy, Severe, THROAT SWELLING, 02/24/17) Iodinated Diagnostic Agents (Verified Allergy, Unknown, swelling, 02/24/17) Plasma, Human (Verified Allergy, Unknown, ANAPHYLAXIS, 02/24/17) Acetaminophen (Verified Adverse Reaction, Unknown, GI ISSUES, 02/24/17) Hydrocodone (Verified Adverse Reaction, Unknown, GI ISSUES, 02/24/17) Home Medications Scheduled Alprazolam (Xanax), 1 MG PO TID Escitalopram (Lexapro), 10 MG PO DAILY Escitalopram Oxalate (Lexapro), 20 MG PO DAILY Methylphenidate (Ritalin), 20 MG PO BID Metoprolol Succ (Toprol Xl) (Toprol-Xl ), 150 MG PO DAILY Warfarin Sod (Jantoven), 5 MG PO DAILY Zolpidem Tartrate (Ambien), 10 MG PO HS Scheduled PRN Cyclobenzaprine Hcl (Flexeril), 10 MG PO TID PRN for Muscle Spasms Fluticasone Propionate (Nasal) (Flonase Allergy Relief), 2 SPRAYS WALDEMAR DAILY PRN for ALLERGIC REACTION Review of Systems Constitutional: + chills, + fever, + sweats Eyes: No worsening of vision ENT: No hearing loss Respiratory: No cough, No dyspnea at rest, No dyspnea on exertion, No shortness of breath, No sputum, No wheezing Cardiovascular: No chest pain Abdomen: + nausea, + vomiting, No constipation, No diarrhea, No pain Musculoskeletal: + muscle pain, No joint pain Genitourinary - Male: No dysuria, No hematuria Neurologic: No balance problems, No numbness/tingling, No weakness Psychiatric: + anxiety Endocrine: + fatigue Integumentary: No rash Physical Exam Vital Signs Date Time Temp Pulse Resp B/P Pulse Ox O2 Delivery O2 Flow Rate FiO2 02/24/17 09:31 36.9 109 20 125/84 93 Room Air 02/24/17 09:01 134/89 02/24/17 08:15 37.8 106 20 127/91 02/24/17 07:24 37.5 105 27 142/91 93 Room Air 02/24/17 07:17 105 02/24/17 06:52 38.8 110 21 142/91 93 Room Air 02/24/17 05:53 111 20 144/96 91 Room Air 02/24/17 05:36 Room Air 02/24/17 05:16 112 02/24/17 04:49 38.5 118 18 189/97 97 Room Air General Appearance: no apparent distress, + pertinent finding (flushed, diaphoretic) Head: normocephalic, atraumatic Eyes: normal inspection ENT: normal ENT inspection Neck: supple Respiratory/Chest: normal breath sounds, no respiratory distress, no accessory muscle use Cardiovascular: no murmur, normal peripheral pulses, + tachycardia Abdomen/GI: normal bowel sounds, non tender, soft Back: normal inspection Extremities/Musculoskelatal: no calf tenderness, no pedal edema Neurologic/Psych: alert, normal mood/affect, oriented x 3 Skin: normal color, no rash, + diaphoresis Lymphatic: no adenopathy Diagnostics Laboratory Results Results Past 24 Hours Test 02/24/17 03:18 02/24/17 05:10 02/24/17 05:18 02/24/17 05:27 Range/Units Lyme Disease IgG Antibody NEG NEG Lyme Disease IgM Antibody NEG NEG Hepatitis B Surface Antigen NEG NEG Hepatitis C Antibody NEG NEG Urine Color DK YELLOW Urine Appearance CLEAR CLEAR Urine pH 5.5 4.5-7.5 Urine Specific [place] 1.033 1.000-1.030 Urine Protein 2+ NEG Urine Glucose (UA) 3+ NEG Urine Ketones TRACE NEG Urine Occult Blood 1+ NEG Urine Nitrite NEG NEG Urine Bilirubin NEG NEG Urine Urobilinogen NEG NEG Urine Leukocyte Esterase NEG NEG Urine WBC (Auto) 1-5 0-5 /hpf Urine RBC (Auto) 0-4 0-4 /hpf Urine Hyaline Casts (Auto) 1-5 0-5 /lpf Urine Epithelial Cells (Auto) 10-20 0-5 /lpf Urine Bacteria (Auto) NEG NEG White Blood Count 6.49 4.8-10.8 K/uL Red Blood Count 5.07 4.7-6.1 M/uL Hemoglobin 15.7 14.0-18.0 g/dL Hematocrit 44.6 42-52 % Mean Corpuscular Volume 88.0 80-100 fL Mean Corpuscular Hemoglobin 31.0 25-34 pg Mean Corpuscular Hemoglobin Concent 35.2 32-36 g/dl Platelet Count 178 130-400 K/uL Mean Platelet Volume 12.8 7.4-10.4 fL Neutrophils (%) (Auto) 78.1 % Lymphocytes (%) (Auto) 15.3 % Monocytes (%) (Auto) 3.9 % Eosinophils (%) (Auto) 2.2 % Basophils (%) (Auto) 0.3 % Neutrophils # (Auto) 5.08 1.4-6.5 K/uL Lymphocytes # (Auto) 0.99 1.2-3.4 K/uL Monocytes # (Auto) 0.25 0.11-0.59 K/uL Eosinophils # (Auto) 0.14 0-0.5 K/uL Basophils # (Auto) 0.02 0-0.2 K/uL RDW Standard Deviation 40.6 36.4-46.3 fL RDW Coefficient of Variation 12.8 11.5-14.5 % Immature Granulocyte % (Auto) 0.2 % Immature Granulocyte # (Auto) 0.01 0.00-0.02 K/uL Nucleated RBC Absolute Count (auto) 0.00 0-0 K/uL Nucleated Red Blood Cells % 0.0 % Peripheral Blood Smear Path Consult Prothrombin Time 12.1 9.0-12.0 SECONDS Prothromb Time International Ratio 1.1 0.9-1.1 Activated Partial Thromboplast Time 27.2 21.0-31.0 SECONDS Partial Thromboplastin Ratio 1.0 Sodium Level 136 136-145 mmol/L Potassium Level 3.5 3.5-5.1 mmol/L Chloride Level 99 98-107 mmol/L Carbon Dioxide Level 29 21-32 mmol/L Anion Gap 8.0 3-11 mmol/L Blood Urea Nitrogen 15 7-18 mg/dl Creatinine 1.50 0.60-1.40 mg/dl Est Creatinine Clear Calc Drug Dose 93.1 ml/min Estimated GFR () 64.7 Estimated GFR (Non- 55.8 BUN/Creatinine Ratio 9.7 10-20 Random Glucose 318 70-99 mg/dl Estimated Average Glucose 203 mg/dl Hemoglobin A1c 8.7 4.5-5.6 % Calcium Level 9.2 8.5-10.1 mg/dl Total Bilirubin 0.4 0.2-1 mg/dl Aspartate Amino Transf (AST/SGOT) 194 15-37 U/L Alanine Aminotransferase (ALT/SGPT) 182 12-78 U/L Alkaline Phosphatase 169 45-117 U/L Total Creatine Kinase 1572 39-308 U/L Troponin I < 0.015 0-0.045 ng/ml Total Protein 8.7 6.4-8.2 gm/dl Albumin 3.8 3.4-5.0 gm/dl Globulin 4.9 2.5-4.0 gm/dl Albumin/Globulin Ratio 0.8 0.9-2 Triglycerides Level 336 0-150 mg/dl Cholesterol Level 187 0-200 mg/dl HDL Cholesterol 29 mg/dl LDL Cholesterol, Calculated 91 mg/dl VLDL Cholesterol, Calculated 67 mg/dl Cholesterol/HDL Ratio 6.4 Beta-Hydroxybutyric Acid 0.93 0.2-2.81 mg/dL Bedside Lactic Acid Venous 1.40 0.90-1.70 mmol/L Test 02/24/17 11:45 Range/Units Bedside Glucose 228 70-99 mg/dl Microbiology Results 02/24/17 Blood Culture, Received Pending 02/24/17 Blood Culture, Received Pending Diagnostic Radiology [~ rep ct add3]] CT HEAD WITHOUT CONTRAST (CT) CLINICAL HISTORY: headache CHEST PAIN. JOINT PAIN. COMPARISON STUDY: 06/21/2015 TECHNIQUE: Axial CT of the brain is performed from the vertex to the skull base. IV contrast was not administered for this examination. CT DOSE: 614.27 mGy.cm FINDINGS: No intra or extra-axial mass lesions are visualized. There is no CT evidence of acute cortical infarction. There is no evidence of midline shift. There is no acute hemorrhage. No calvarial fractures are visualized. There is no evidence of pathologic ventricular dilatation. There is no evidence of acute sinusitis IMPRESSION: No acute intracranial findings CHEST ONE VIEW PORTABLE CLINICAL HISTORY: Sepsis dyspnea COMPARISON STUDY: 08/23/2016 FINDINGS: Mild stable cardia megaly. Lungs are clear. Diaphragms smooth. IMPRESSION: Mild stable cardia megaly. Otherwise negative study EKG Sinus tachycardia Possible Left atrial enlargement T wave abnormality, consider anterolateral ischemia Abnormal ECG When compared with ECG of 31-JAN-2017 14:18, No significant change was found Impression Assessment and Plan This is a 46 yo m with a significant history of myositis and pulmonary emboli which presented to the ED with myositis, transaminitis, fever and general malaise. SIRS criteria (fever, tachycardia) - patient received tylenol for fever which improved after receiving - blood cultures pending - UA did not reflect infection - med surg admission as stable otherwise and well appearing Elevated CK reflecting myositis - follow CK - will try and get results from [facility] - will continue to educate refraining from strenuous exercise - morphine 4 mg q 6 for pain control BRIDGETTE secondary to dehydration vs rhabdomyolysis - NSS @ 150cc/h - continue to follow I&O and bmp Transaminitis - GGT to r/o hepatic vs rhabdo as the source Subtherapeutic INR with a history of pulmonary embolism - will bridge INR with Lovenox Elevated BSG; new onset DM - HBA1C to confirm - insulin ISS Depression/ Anxiety - continue lexapro and xanax ADHD - hold ritalin because of the tachy DVT Prophylaxis - lovenox and warfarin FULL CODE Resident Physician Supervision Note: I interviewed and examined the patient. Discussed with Dr. Cheney and agree with findings and plan as documented in the note. Any exceptions or clarifications are listed here: None Documented By: Ha Harley diffuse muscle pain - chest arms back quads. gets these types of pains about 3- 4 days a week. exercise does not seem to affect the timing or frequency of the pain. fevers - often when the pain is worse - notes that while he doesn't always check temperature, he guesses about 5-6 febrile days a month. ongoing for years. last extensive w/u is what was chronicled by dr hale in consult from 2014, otherwise since has been managing on flexeril and oxycodone ros otherwise negative except for as above vitals noted pleasant nad breathing unlabored, significant (+) muscle mass diffuse muscle pain / elevated CPK - ?myositis, autoimmune pathology? other? review prior w/u and then eval for ?further testing chronic recurrent PEs - no need for diagnostic w/u since he requires anticoagulation and is subtherapeutic - lovenox bridge otherwise as above Level of Care Med/Surg Advanced Directives Existing Living Will: No Existing Power of Manifest Clerk: No Resuscitation Status FULL RESUSCITATION VTE Prophylaxis VTE Risk Assessment Done? Y/N: Yes Risk Level: High Given or contraindicated: Enoxaparin (Lovenox)SQ, Warfarin (Coumadin) Social Service Consult None Apply Note Total Time: Critical Care 30 - 74 minutes
[2017-02-24] MEDS ORDERED: ACETAMINOPHEN 325 MG TAB PO PRN (15:15)
[2017-02-24 15:34] VITALS: BP 148/90; PULSE 104; TEMP 38.8; O2SAT 91
[2017-02-24] MEDS: WARFARIN SOD 5 MG TAB PO SCH (15:54)
[2017-02-24 16:25] VITALS: BMI 39.2
[2017-02-24 17:28] VITALS: TEMP 38.4
[2017-02-24] MEDS ORDERED: SODIUM CHLORIDE 0.9% 1000ML 1,000 ML IV SCH (17:45)
[2017-02-24] MEDS: OXYCODONE HCL IR 5 MG TAB (IMMEDIATE RELEASE) PO PRN (17:54)
[2017-02-24] MEDS: IBUPROFEN 200 MG TAB PO PRN (19:06)
[2017-02-24 23:44] VITALS: BP 114/75; PULSE 82; TEMP 36.8; O2SAT 93
[2017-02-25] VITALS (7 sets, daily range): BP systolic 124–151; BP diastolic 73–90; PULSE 67–99; TEMP 36.4–37.4; O2SAT 93–95
[2017-02-25 07:58] LABS: INR 1.1 (0.9-1.1); PARTIAL THROMBOPLASTIN RATIO 1.4; PROTHROMBIN TIME (PATIENT) 11.8 SECONDS (9.0-12.0)
[2017-02-25] MEDS ORDERED: GLUCAGON FOR INJ 1 MG VIAL SQ PRN (08:00)
[2017-02-25] MEDS ORDERED: DEXTROSE 50% 50 ML SYR IV PRN (08:00)
[2017-02-25] MEDS ORDERED: GLUCOSE 40% GEL 15 GM TUBE PO PRN (08:00)
[2017-02-25] MEDS ORDERED: GLUCOSE 10 TABS/TUBE PO PRN (08:00)
[2017-02-25 08:11] LABS: HEMATOCRIT 42.1 % (42-52); MEAN CELL VOLUME 89.2 fL (80-100); MEAN CORPUSCULAR HEMOGLOBIN 30.3 pg (25-34); MEAN PLATELET VOLUME 12.5 fL (7.4-10.4); PLATELET COUNT 129 K/uL (130-400); PLT ESTIMATE DECREASED; RED BLOOD COUNT 4.72 M/uL (4.7-6.1)
[2017-02-25 08:54] LABS: ALB/GLOB RATIO 0.8 (0.9-2); BUN/CREATININE RATIO 7.2 (10-20); C-REACTIVE PROTEIN 6.85 mg/dl (0-0.29); CREATININE 1.5 mg/dl (0.60-1.40); POTASSIUM 4.1 mmol/L (3.5-5.1)
[2017-02-25 08:59] LABS: CALCIUM 8.5 mg/dl (8.5-10.1)
[2017-02-25] MEDS: METOPROLOL SUCC 50MG EXT REL TAB PO SCH (09:16)
[2017-02-25] MEDS: IBUPROFEN 200 MG TAB PO PRN ×2 (09:17→16:16)
[2017-02-25] MEDS: INSULIN ASPART 100 UNITS/ML 3 ML PEN SC SCH ×4 (09:21→21:46)
[2017-02-25] MEDS: ENOXAPARIN 150 MG/1ML SYR SQ SCH ×2 (09:22→19:56)
[2017-02-25] MEDS: ALPRAZOLAM 0.5 MG TAB PO SCH ×3 (09:23→19:55)
[2017-02-25] MEDS: ESCITALOPRAM OXALATE 20 MG TAB PO SCH (09:38)
[2017-02-25] MEDS: ESCITALOPRAM OXALATE 10 MG TAB PO SCH (09:38)
[2017-02-25] MEDS: OXYCODONE HCL IR 5 MG TAB (IMMEDIATE RELEASE) PO PRN ×2 (09:56→16:14)
[2017-02-25] MEDS: SODIUM CHLORIDE 0.9% 1000ML 1,000 ML IV SCH ×3 (10:06→19:55)
--- NOTE | 2017-02-25 10:45 | Medical Consult ---
Consultation Date of Consultation: February 25, 2017. Attending Physician: Ha Harley D.O. Reason for Consultation: FUO History of Present Illness 46-year-old male with long history of unexplained myositis with elevated CPK levels, as well as chronic elevation of liver enzymes, also unexplained, who is now admitted with several days of progressively worsening myalgias associated with fever, chills, and severe sore throat. Patient has had occasional cough without sputum production, mild nausea with 1 episode of vomiting. He eventually came to the emergency department where he was found to have significant elevations of CPK and liver enzymes, higher than his baseline. Thus far blood cultures have been negative. Patient has frequent outdoor activities showed denies any obvious tick bites. No history of rash. No ill contacts. No other significant travel or exposure history. Past Medical/Surgical History Medical Problems: (1) Acute renal failure (ARF) Status: Acute (2) Anticoagulated by anticoagulation treatment Status: Acute (3) Anxiety Status: Chronic (4) Atypical chest pain Status: Acute (5) CKD (chronic kidney disease), stage III Status: Chronic (6) Contusion of left chest wall Status: Acute (7) Costochondritis Status: Chronic (8) Depression Status: Chronic (9) Dyspnea Status: Acute (10) Elevated CK Status: Chronic (11) Epigastric abdominal pain Status: Acute (12) Essential hypertension Status: Chronic (13) GERD (gastroesophageal reflux disease) Status: Chronic (14) Headache Status: Acute (15) Hematemesis Status: Acute (16) History of esophageal ulcer Permanent Comment: on EGD 06/23/2014 Status: Chronic (17) History of pulmonary embolus (PE) Status: Acute (18) Hx of pulmonary embolus Status: Chronic (19) Hyperlipidemia Status: Chronic (20) Hypertension Status: Chronic (21) Leg pain, left Status: Acute (22) Leg pain, right Status: Acute (23) Myositis Status: Acute (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 (25) Precordial chest pain Status: Acute (26) Prediabetes Status: Chronic (27) Right leg swelling Status: Acute (28) Subtherapeutic international normalized ratio (INR) Status: Acute Surgical Problems: (1) H/O colonoscopy Status: Chronic (2) H/O esophagogastroduodenoscopy Permanent Comment: [id number]- esophageal ulcer 06/24/2014- bleeding esophageal ulcer 08/29/2014- Grade B reflux esophagitis 11/21/2014- mild-moderate inflammation Status: Chronic (3) History of muscle biopsy Status: Chronic (4) History of rectal surgery Status: Chronic (5) S/P cardiac catheterization Permanent Comment: 2012- normal coronary arteries Status: Chronic Medical Problems: (1) BRIDGETTE (acute kidney injury) (2) Anxiety (3) Blood clot in vein (4) Chest pain (5) Chest pain (6) Chest wall pain (7) CKD (chronic kidney disease), stage III (8) Costochondritis (9) Depression (10) Elevated CK (11) Elevated CK (12) Elevated CPK (13) Essential hypertension (14) Fever and chills (15) GERD (gastroesophageal reflux disease) (16) Hemoptysis (17) History of esophageal ulcer (18) History of pleural effusion (19) Hx of pulmonary embolus (20) Hyperglycemia (21) Hyperlipidemia (22) Hypertension (23) Myositis (24) Non-autoimmune myositis (25) Pharyngitis (26) Pleuritic chest pain (27) Prediabetes (28) Substernal chest pain (29) Suspected pulmonary embolism (30) Transaminitis Surgical Problems: (1) H/O colonoscopy (2) H/O esophagogastroduodenoscopy (3) History of muscle biopsy (4) History of rectal surgery (5) S/P cardiac catheterization Family History Blood clots FH: brain aneurysm MOTHER (mother, age 32) Social History Smoking Status: Never Smoker Smokeless Tobacco Use: No Alcohol Use: none Drug Use: none Marital Status: single Housing Status: lives alone Occupation Status: disabled Allergies Coded Allergies: Iodine (Verified Allergy, Severe, THROAT SWELLING, 02/24/17) 02/18/13: patient denies IV contrast allergy Patient has been pre-treated in the past with methylprednisolone and diphenhydramine without incident following IV dye administration. Shellfish (Verified Allergy, Severe, THROAT SWELLING, 02/24/17) Iodinated Diagnostic Agents (Verified Allergy, Unknown, swelling, 02/24/17) Plasma, Human (Verified Allergy, Unknown, ANAPHYLAXIS, 02/24/17) Acetaminophen (Verified Adverse Reaction, Unknown, GI ISSUES, 02/24/17) Hydrocodone (Verified Adverse Reaction, Unknown, GI ISSUES, 02/24/17) Current Inpatient Medications Current Inpatient Medications Medications (Trade) Dose Ordered Sig/Roxie Route Start Time Stop Time Status Last Admin Dose Admin Zolpidem Tartrate (Ambien Tab) 5 mg HSZ PRN PO 02/24/17 08:00 03/26/17 07:59 Ondansetron HCl (Zofran Inj) 4 mg Q6H PRN IV 02/24/17 08:00 03/26/17 07:59 Enoxaparin Sodium (Lovenox Inj) 141 mg Q12H SQ 02/24/17 08:00 03/26/17 07:59 02/25/17 09:22 141 MG Alprazolam (Xanax Tab) 1 mg TID PO 02/24/17 09:00 03/26/17 08:59 02/25/17 09:23 1 MG Fluticasone Propionate (Flonase Nasal [place]) 2 sprays DAILY PRN WALDEMAR 02/24/17 08:00 03/26/17 07:59 Metoprolol Succinate (Toprol Xl Tab) 150 mg DAILY PO 02/24/17 09:00 03/26/17 08:59 02/25/17 09:16 150 MG Warfarin Sodium (Coumadin Tab) 5 mg DAILY@1600 PO 02/24/17 16:00 03/26/17 15:59 02/24/17 15:54 5 MG Morphine Sulfate (MoRPHine SULFATE INJ) 4 mg Q6H PRN IV 02/24/17 08:00 03/10/17 07:59 02/24/17 15:52 4 MG Insulin Aspart (novoLOG ASPART) SLIDING SCALE G... ACHS SC 02/24/17 11:00 03/26/17 10:59 02/25/17 09:21 2 UNITS Cyclobenzaprine HCl (Flexeril Tab) 10 mg TID PRN PO 02/24/17 13:15 03/26/17 13:14 02/24/17 19:08 10 MG Escitalopram Oxalate (Lexapro Tab) 10 mg DAILY PO 02/24/17 14:10 03/26/17 14:09 02/25/17 09:38 10 MG Escitalopram Oxalate (Lexapro Tab) 20 mg DAILY PO 02/24/17 14:09 03/26/17 14:08 02/25/17 09:38 20 MG Ibuprofen (Advil Tab) 400 mg QID PRN PO 02/24/17 17:45 03/26/17 17:44 02/25/17 09:17 400 MG Oxycodone HCl (Roxicodone Immediate Rel Tab) 5 mg Q4 PRN PO 02/24/17 17:45 03/10/17 17:44 02/25/17 09:56 5 MG Glucose (Glucose 40% Gel) 15-30 GRAMS 15 GRAMS... UD PRN PO 02/25/17 08:00 03/27/17 07:59 Glucose (Glucose Chew Tab) 4-8 Tablets 4 Tabl... UD PRN PO 02/25/17 08:00 03/27/17 07:59 Dextrose (Dextrose 50% 50ML Syringe) 25-50ML OF 50% DW IV FOR... UD PRN IV 02/25/17 08:00 03/27/17 07:59 Glucagon 1 mg 1 mg UD PRN SQ 02/25/17 08:00 03/27/17 07:59 Sodium Chloride (Nss 1000ml) 1,000 ml @ 200 mls/hr Q5H IV 02/25/17 10:00 02/26/17 00:59 02/25/17 10:06 200 MLS/HR Review of Systems Constitutional: + chills, + fatigue, + fever, + sweats, + weakness Eyes: No problem reported ENT: + sore throat Respiratory: + cough Cardiovascular: + chest pain Abdomen: + nausea Musculoskeletal: + muscle pain Genitourinary - Male: No problem reported Neurologic: No problem reported Psychiatric: No problem reported Endocrine: + fatigue Hematologic / Lymphatic: No problem reported Integumentary: No problem reported Allergic / Immunologic: No problem reported Physical Exam Date Time Temp Pulse Resp B/P Pulse Ox O2 Delivery O2 Flow Rate FiO2 02/25/17 07:14 37.3 99 20 151/90 93 Room Air 02/24/17 23:44 36.8 82 18 114/75 93 Room Air 02/24/17 23:42 Room Air 02/24/17 17:28 38.4 02/24/17 16:00 Room Air 02/24/17 15:34 38.8 104 24 148/90 91 Room Air 02/24/17 14:22 38.8 105 20 177/80 93 Room Air General Appearance: WD/WN, no apparent distress Head: normocephalic, atraumatic Eyes: normal inspection, EOMI, sclerae normal ENT: normal ENT inspection, hearing grossly normal, pharynx normal Neck: supple, no adenopathy, thyroid normal, trachea midline Respiratory/Chest: chest non-tender, lungs clear, normal breath sounds, no respiratory distress Cardiovascular: regular rate, rhythm, no gallop, no murmur Abdomen/GI: normal bowel sounds, non tender, soft, no organomegaly Back: normal inspection, no CVA tenderness Extremities/Musculoskelatal: normal inspection, normal capillary refill, + pertinent finding (muscle tenderness) Neurologic/Psych: alert, oriented x 3 Skin: normal color, warm/dry, no rash Lymphatic: no adenopathy Laboratory Results Date/Time Source Procedure Growth Status 02/24/17 18:05 Blood Blood Culture Pending Received 02/24/17 17:58 Blood Blood Culture Pending Received Last 24 Hours Test 02/24/17 11:45 02/24/17 16:31 02/24/17 20:09 02/25/17 07:32 Bedside Glucose 228 mg/dl 168 mg/dl 239 mg/dl White Blood Count 5.80 K/uL Red Blood Count 4.72 M/uL Hemoglobin 14.3 g/dL Hematocrit 42.1 % Mean Corpuscular Volume 89.2 fL Mean Corpuscular Hemoglobin 30.3 pg Mean Corpuscular Hemoglobin Concent 34.0 g/dl RDW Standard Deviation 42.2 fL RDW Coefficient of Variation 12.9 % Platelet Count 129 K/uL Mean Platelet Volume 12.5 fL Platelet Estimate DECREASED Prothrombin Time 11.8 SECONDS Prothromb Time International Ratio 1.1 Activated Partial Thromboplast Time 36.1 SECONDS Partial Thromboplastin Ratio 1.4 Sodium Level 138 mmol/L Potassium Level 4.1 mmol/L Chloride Level 102 mmol/L Carbon Dioxide Level 32 mmol/L Anion Gap 4.0 mmol/L Blood Urea Nitrogen 11 mg/dl Creatinine 1.50 mg/dl Est Creatinine Clear Calc Drug Dose 93.1 ml/min Estimated GFR () 64.7 Estimated GFR (Non- 55.8 BUN/Creatinine Ratio 7.2 Random Glucose 266 mg/dl Calcium Level 8.5 mg/dl Total Bilirubin 0.4 mg/dl Aspartate Amino Transf (AST/SGOT) 521 U/L Alanine Aminotransferase (ALT/SGPT) 315 U/L Alkaline Phosphatase 119 U/L Total Creatine Kinase 1132 U/L C-Reactive Protein 6.85 mg/dl Total Protein 7.3 gm/dl Albumin 3.3 gm/dl Globulin 4.0 gm/dl Albumin/Globulin Ratio 0.8 Test 02/25/17 07:38 02/25/17 08:30 02/25/17 09:55 Bedside Glucose 223 mg/dl Monoscreen NEG [~ rep ct add3]] CHEST ONE VIEW PORTABLE CLINICAL HISTORY: Sepsis dyspnea COMPARISON STUDY: 08/23/2016 FINDINGS: Mild stable cardia megaly. Lungs are clear. Diaphragms smooth. IMPRESSION: Mild stable cardia megaly. Otherwise negative study Electronically signed by: Michael Cabrera M.D. 02/24/2017 6:33 AM Dictated Date/Time: 02/24/2017 6:33 AM The status of this report is Signed. Draft = Not yet reviewed or approved by Radiologist. Signed = Reviewed and approved by Radiologist. <AttendingPhy></AttendingPhy> <FamilyPhy>No Doctor, Assigned</FamilyPhy> < PrimaryPhy>No Doctor, Assigned</PrimaryPhy> <UnitNumber>[id number]</UnitNumber> <VisitNumber>[id number]</VisitNumber> <PatientName>LASHANDA GAMEZ JR</ PatientName> <DateOfBirth>1970</DateOfBirth> <Location>[facility]</Location> < ServiceDate>02/24/17</ServiceDate> <MNE>ESINDI</MNE> <OrderingPhy>Sharee Lebron D.O.</OrderingPhy> <OrderingPhyMNE>f rep ord dr roa</OrderingPhyMNE> < DictatingPhyMNE>f rep dict dr roa</DictatingPhyMNE> <CCListMNE>f rep ct mne</ CCListMNE> <AdmittingPhyMNE>f pt admit dr roa</AdmittingPhyMNE> <AttendingPhyMNE >f pt attend dr roa</AttendingPhyMNE> <ConsultingPhyMNE>f pt consult dr roa</ConsultingPhyMNE> <FamilyPhyMNE>f pt fa Assessment & Plan 46 yo male with undiagnosed "autoimmune" myositis/ hepatitis now with 3 days of fevers, myalgias with elevation of CPK and LFTs and now dropping platelet count. I am concerned about possibility of anaplasma infection, even with negative peripheral smear, and have started empirically on doxycycline pending serology results. Blood cultures and further autoimmune workup is pending. Will follow.
--- NOTE | 2017-02-25 11:29 | DIAGNOSTIC IMAGING REPORT ---
ABDOMINAL ULTRASOUND COMPLETE HISTORY: Pain. Abnormal liver function tests elevated LFT. COMPARISON: None. FINDINGS: Pancreas: The pancreas demonstrates a normal echotexture. Liver: Fatty infiltration Gallbladder: No gallbladder wall thickening. No gallstones. CBD: 5 mm Kidneys: No hydronephrosis. Spleen: Normal in size. Aorta: Normal in caliber. IVC: Patent. IMPRESSION: Fatty infiltration of liver. Otherwise negative study Electronically signed by: Michael Cabrera M.D. 02/25/2017 11:27 AM Dictated Date/Time: 02/25/2017 11:26 AM
[2017-02-25] MEDS: MoRPHine SULFATE 4 MG/ML 1 ML CARP\\VIAL IV PRN (12:15)
[2017-02-25] MEDS: DOXYCYCLINE HYCLATE 100 MG CAP PO SCH ×2 (14:14→19:55)
--- NOTE | 2017-02-25 14:54 | Family Medicine Progress Note ---
Progress Note Date of Service February 25, 2017. Subjective Pt evaluation today including: conversation w/ patient, physical exam, chart review, lab review, review of studies Pain: 02/19 PO Intake: WNL Voiding: no voiding problems Patient has ongoing generalized myalgias and states he "just doesn't feel well" He does note that he used to be on xarleto however did not continue because of insurance He also notes he has never been diagnosed with diabetes He does not have a PCP Constitutional: + chills, + fever Eyes: No worsening of vision ENT: No hearing loss Respiratory: No cough, No dyspnea on exertion, No shortness of breath, No sputum, No wheezing Cardiovascular: No chest pain Abdomen: No constipation, No diarrhea, No nausea, No pain, No vomiting Musculoskeletal: + joint pain, + muscle pain Male : No dysuria Neurologic: No balance problems, No weakness Psychiatric: No depression symptoms Endo: + fatigue Skin: No rash Medications Medications Administered Medications (Trade) Dose Ordered Sig/Roxie Route Start Time Stop Time Status Last Admin Dose Admin Acetaminophen (Tylenol Tab) 1,000 mg NOW STAT PO 02/24/17 05:30 02/24/17 05:31 DC 02/24/17 05:51 1,000 MG Ondansetron HCl (Zofran Inj) 4 mg NOW STAT IV 02/24/17 05:45 02/24/17 05:46 DC 02/24/17 05:50 4 MG Hydromorphone HCl (Dilaudid Inj) 2 mg NOW STAT IV 02/24/17 06:52 02/24/17 06:53 DC 02/24/17 06:57 2 MG Enoxaparin Sodium (Lovenox Inj) 141 mg Q12H SQ 02/24/17 08:00 03/26/17 07:59 02/25/17 09:22 141 MG Alprazolam (Xanax Tab) 1 mg TID PO 02/24/17 09:00 03/26/17 08:59 02/25/17 14:16 1 MG Metoprolol Succinate (Toprol Xl Tab) 150 mg DAILY PO 02/24/17 09:00 03/26/17 08:59 02/25/17 09:16 150 MG Warfarin Sodium (Coumadin Tab) 5 mg DAILY@1600 PO 02/24/17 16:00 03/26/17 15:59 02/24/17 15:54 5 MG Morphine Sulfate (MoRPHine SULFATE INJ) 4 mg Q6H PRN IV 02/24/17 08:00 03/10/17 07:59 02/25/17 12:15 4 MG Insulin Aspart SLIDING SCALE G... ACHS SC 02/24/17 11:00 03/26/17 10:59 02/25/17 14:20 6 UNITS Sodium Chloride (Nss 1000ml) 1,000 ml @ 150 mls/hr Q6H40M IV 02/24/17 09:00 02/25/17 03:50 DC 02/24/17 21:46 150 MLS/HR Cyclobenzaprine HCl (Flexeril Tab) 10 mg TID PRN PO 02/24/17 13:15 03/26/17 13:14 02/24/17 19:08 10 MG Escitalopram Oxalate (Lexapro Tab) 10 mg DAILY PO 02/24/17 14:10 03/26/17 14:09 02/25/17 09:38 10 MG Escitalopram Oxalate (Lexapro Tab) 20 mg DAILY PO 02/24/17 14:09 03/26/17 14:08 02/25/17 09:38 20 MG Acetaminophen 650 mg 650 mg Q4H PRN PO 02/24/17 15:15 02/24/17 17:42 DC 02/24/17 15:58 650 MG Sodium Chloride (Nss 1000ml) 1,000 ml @ 999 mls/hr Q1H1M IV 02/24/17 17:45 02/24/17 18:45 DC 02/24/17 17:55 999 MLS/HR Ibuprofen (Advil Tab) 400 mg QID PRN PO 02/24/17 17:45 03/26/17 17:44 02/25/17 09:17 400 MG Oxycodone HCl 5 mg 5 mg Q4 PRN PO 02/24/17 17:45 03/10/17 17:44 02/25/17 09:56 5 MG Sodium Chloride (Nss 1000ml) 1,000 ml @ 200 mls/hr Q5H IV 02/25/17 10:00 02/26/17 00:59 02/25/17 10:06 200 MLS/HR Doxycycline Hyclate (Vibramycin Cap) 100 mg BID PO 02/25/17 14:00 03/07/17 13:59 02/25/17 14:14 100 MG Objective Vital Signs Date Time Temp Pulse Resp B/P Pulse Ox O2 Delivery O2 Flow Rate FiO2 02/25/17 12:27 133/81 02/25/17 11:30 36.9 02/25/17 09:45 37.4 02/25/17 07:45 93 Room Air 02/25/17 07:14 37.3 99 20 151/90 93 Room Air 02/24/17 23:44 36.8 82 18 114/75 93 Room Air 02/24/17 23:42 Room Air 02/24/17 17:28 38.4 02/24/17 16:00 Room Air 02/24/17 15:34 38.8 104 24 148/90 91 Room Air Physical Exam General Appearance: no apparent distress, + pertinent finding (looks uncomfortable) Eyes: normal inspection ENT: normal ENT inspection Neck: supple Respiratory/Chest: normal breath sounds, no respiratory distress, no accessory muscle use Cardiovascular: regular rate, rhythm, no murmur Abdomen: normal bowel sounds, non tender, soft Extremities: normal inspection, no pedal edema, no calf tenderness Neurologic/Psychiatric: alert, normal mood/affect, oriented x 3 Skin: normal color, warm/dry, no rash Lymphatic: no adenopathy Laboratory Results Results Past 24 Hours Test 02/24/17 16:31 02/24/17 20:09 02/25/17 07:32 02/25/17 07:38 Range/Units Bedside Glucose 168 239 223 70-99 mg/dl White Blood Count 5.80 4.8-10.8 K/uL Red Blood Count 4.72 4.7-6.1 M/uL Hemoglobin 14.3 14.0-18.0 g/dL Hematocrit 42.1 42-52 % Mean Corpuscular Volume 89.2 80-100 fL Mean Corpuscular Hemoglobin 30.3 25-34 pg Mean Corpuscular Hemoglobin Concent 34.0 32-36 g/dl RDW Standard Deviation 42.2 36.4-46.3 fL RDW Coefficient of Variation 12.9 11.5-14.5 % Platelet Count 129 130-400 K/uL Mean Platelet Volume 12.5 7.4-10.4 fL Platelet Estimate DECREASED Erythrocyte Sedimentation Rate 28 0-14 mm/hr Prothrombin Time 11.8 9.0-12.0 SECONDS Prothromb Time International Ratio 1.1 0.9-1.1 Activated Partial Thromboplast Time 36.1 21.0-31.0 SECONDS Partial Thromboplastin Ratio 1.4 Sodium Level 138 136-145 mmol/L Potassium Level 4.1 3.5-5.1 mmol/L Chloride Level 102 98-107 mmol/L Carbon Dioxide Level 32 21-32 mmol/L Anion Gap 4.0 3-11 mmol/L Blood Urea Nitrogen 11 7-18 mg/dl Creatinine 1.50 0.60-1.40 mg/dl Est Creatinine Clear Calc Drug Dose 93.1 ml/min Estimated GFR () 64.7 Estimated GFR (Non- 55.8 BUN/Creatinine Ratio 7.2 10-20 Random Glucose 266 70-99 mg/dl Calcium Level 8.5 8.5-10.1 mg/dl Total Bilirubin 0.4 0.2-1 mg/dl Aspartate Amino Transf (AST/SGOT) 521 15-37 U/L Alanine Aminotransferase (ALT/SGPT) 315 12-78 U/L Alkaline Phosphatase 119 45-117 U/L Total Creatine Kinase 1132 39-308 U/L C-Reactive Protein 6.85 0-0.29 mg/dl Total Protein 7.3 6.4-8.2 gm/dl Albumin 3.3 3.4-5.0 gm/dl Globulin 4.0 2.5-4.0 gm/dl Albumin/Globulin Ratio 0.8 0.9-2 Test 02/25/17 08:30 02/25/17 10:28 02/25/17 14:50 Range/Units Monoscreen NEG NEG Microbiology Results 02/24/17 Blood Culture, Received Pending 02/24/17 Blood Culture, Received Pending Assessment and Plan This is a 46 yo m with a significant history of myositis and pulmonary emboli which presented to the ED with myositis, transaminitis, fever and general malaise. A review of previous notes from [facility] SIRS criteria (fever, tachycardia) - improving, autoimmune vs infection vs fever of unknown origin - patient received tylenol/Ibuprofen for fever which improved after receiving - blood cultures pending - UA did not reflect infection - CMV and EBV antigen - ID consult - appreciate input - because of ongoing concern for anaplasmosis patient will be placed on doxycycline empirically Elevated CK reflecting myositis - follow CK - will try and get [place] [facility] [place] will continue to educate refraining from strenuous exercise - morphine 4 mg q 6 and oxycodone q4 for pain control 2015 labs: - ceruloplasmin - 30 (n); [place] - Neg, IgA - 585 (elevated), Aldolase - 37.6 (elevated), Anti smooth muscle and Anti mitochondrial - negative, tTG IgA- neg, Ferritin - 204, Fe Sat - 25, Iron- 75, TIBC- 299, alpha 1 antitrypsin - 167 (nm) , CMV non reactive HCV negative; ANCA- negative; Anticardiolipin - negative; B 2 GPI- Negative BRIDGETTE secondary to dehydration vs rhabdomyolysis - NSS @ 200cc/h - continue to follow I&O and bmp Transaminitis - GGT to r/o hepatic vs rhabdo as the source Subtherapeutic INR with a history of pulmonary embolism - will bridge INR with Lovenox - Xarelto requires a pre auth so in the meantime will continue lovenox and coumadin Elevated BSG; new onset DM - HBA1C > 8% - insulin 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 Discussed with Dr. Cheney and agree with findings and plan as documented in the note. Any exceptions or clarifications are listed here: None Documented By: Ha Harley feeling about the same - meds do help w aches some. ros otherwise negative except for as above ID input noted and appreciated vitals noted fatigued appearing mmm breathing unlabored no pallor or icterus (+ ) large muscle mass labs/diagnostics noted fever/myalgias -acutely certainly could fit w anaplasmosis - discussed empiric treatment wtih pt -chronically - appearing this & recurrent PE's w high suspicion for more autoimmune or inflammatory -continue w/u as above -ongoing symptomatic care as well uncontrolled / new onset DM -insulin for now, likely metformin after discharge -lifestyle change otherwise as above Continued [facility] stay due to: other Discharge planning: uncertain
[2017-02-25] MEDS: WARFARIN SOD 5 MG TAB PO SCH (16:11)
[2017-02-25] MEDS: CYCLOBENZAPRINE HCL 5 MG TAB PO PRN (16:15)
[2017-02-25] MEDS ORDERED: DOXYCYCLINE HYCLATE 100 MG CAP PO SCH (20:00)
[2017-02-25] MEDS: INSULIN GLARGINE SOLOSTAR 100 UNITS/ML 3 ML PEN SC SCH (20:01)
[2017-02-26] VITALS: O2SAT 93
[2017-02-26 07:45] VITALS: O2SAT 95
[2017-02-26 08:15] VITALS: BP 146/83; PULSE 72; TEMP 36.6; O2SAT 95
[2017-02-26 08:17] LABS: INR 1.1 (0.9-1.1); PARTIAL THROMBOPLASTIN RATIO 1.4; PROTHROMBIN TIME (PATIENT) 12.2 SECONDS (9.0-12.0)
[2017-02-26 08:31] LABS: HEMATOCRIT 39.4 % (42-52); MEAN CELL VOLUME 88.5 fL (80-100); MEAN CORPUSCULAR HEMOGLOBIN 30.6 pg (25-34); MEAN CORPUSCULAR HGB CONC 34.5 g/dl (32-36); PLATELET COUNT 124 K/uL (130-400); RED BLOOD COUNT 4.45 M/uL (4.7-6.1); WHITE BLOOD COUNT 5.32 K/uL (4.8-10.8)
[2017-02-26 08:46] LABS: BUN/CREATININE RATIO 7.3 (10-20); CREATININE 1.2 mg/dl (0.60-1.40); POTASSIUM 3.9 mmol/L (3.5-5.1)
[2017-02-26 08:49] LABS: ALB/GLOB RATIO 0.8 (0.9-2)
[2017-02-26 08:51] LABS: CALCIUM 8.2 mg/dl (8.5-10.1)
[2017-02-26] MEDS: ESCITALOPRAM OXALATE 10 MG TAB PO SCH (09:10)
[2017-02-26] MEDS: ESCITALOPRAM OXALATE 20 MG TAB PO SCH (09:11)
[2017-02-26] MEDS: DOXYCYCLINE HYCLATE 100 MG CAP PO SCH ×2 (09:11→20:38)
[2017-02-26] MEDS: METOPROLOL SUCC 50MG EXT REL TAB PO SCH (09:11)
[2017-02-26] MEDS: ENOXAPARIN 150 MG/1ML SYR SQ SCH ×2 (09:12→20:39)
[2017-02-26] MEDS: ALPRAZOLAM 0.5 MG TAB PO SCH ×3 (09:14→20:38)
[2017-02-26] MEDS: INSULIN ASPART 100 UNITS/ML 3 ML PEN SC SCH ×4 (09:16→20:43)
[2017-02-26] MEDS: INSULIN GLARGINE SOLOSTAR 100 UNITS/ML 3 ML PEN SC SCH ×2 (09:17→20:42)
[2017-02-26] MEDS: OXYCODONE HCL IR 5 MG TAB (IMMEDIATE RELEASE) PO PRN ×2 (12:59→17:50)
[2017-02-26 14:56] VITALS: Ht 188 cm; Wt 138.4 kg
[2017-02-26 15:23] VITALS: BP 117/69; PULSE 78; TEMP 36.9; O2SAT 95
[2017-02-26 15:41] LABS: CREATININE 1.2 mg/dl (0.6-1.4)
[2017-02-26 16:16] LABS: URINE TOTAL PROTEIN CALC 513.5 mg/24 hr (0-149.1)
--- NOTE | 2017-02-26 16:34 | Family Medicine Progress Note ---
Progress Note Date of Service February 26, 2017. Subjective Pt evaluation today including: conversation w/ patient, physical exam, chart review, lab review, review of studies Pain: 3 PO Intake: WNL Voiding: no voiding problems Patient states that he is feeling better however ongoing muscle aches. Well controlled with the Flexeril and Oxycodone He has been actively asking questions about the care and is engaged however can have some high carb choices as snacks, ongoing education on diet was given Patient has apparently been discharged from the [facility] for non compliance and was on 10 mg of warfarin in the past Constitutional: No fever Eyes: No worsening of vision ENT: No hearing loss Respiratory: No cough, No dyspnea on exertion, No shortness of breath, No sputum, No wheezing Cardiovascular: No chest pain Abdomen: No constipation, No diarrhea, No nausea, No pain, No vomiting Musculoskeletal: + muscle pain, No joint pain Male : No dysuria Neurologic: No balance problems, No weakness Psychiatric: No depression symptoms Endo: No fatigue Skin: No rash Medications Medications Administered Medications (Trade) Dose Ordered Sig/Roxie Route Start Time Stop Time Status Last Admin Dose Admin Acetaminophen (Tylenol Tab) 1,000 mg NOW STAT PO 02/24/17 05:30 02/24/17 05:31 DC 02/24/17 05:51 1,000 MG Ondansetron HCl (Zofran Inj) 4 mg NOW STAT IV 02/24/17 05:45 02/24/17 05:46 DC 02/24/17 05:50 4 MG Hydromorphone HCl (Dilaudid Inj) 2 mg NOW STAT IV 02/24/17 06:52 02/24/17 06:53 DC 02/24/17 06:57 2 MG Enoxaparin Sodium (Lovenox Inj) 141 mg Q12H SQ 02/24/17 08:00 03/26/17 07:59 02/26/17 09:12 141 MG Alprazolam (Xanax Tab) 1 mg TID PO 02/24/17 09:00 03/26/17 08:59 02/26/17 13:41 1 MG Metoprolol Succinate (Toprol Xl Tab) 150 mg DAILY PO 02/24/17 09:00 03/26/17 08:59 02/26/17 09:11 150 MG Warfarin Sodium (Coumadin Tab) 5 mg DAILY@1600 PO 02/24/17 16:00 03/26/17 15:59 02/25/17 16:11 5 MG Morphine Sulfate (MoRPHine SULFATE INJ) 4 mg Q6H PRN IV 02/24/17 08:00 03/10/17 07:59 02/25/17 12:15 4 MG Insulin Aspart SLIDING SCALE G... ACHS SC 02/24/17 11:00 03/28/17 10:59 02/26/17 12:53 18 UNITS Sodium Chloride (Nss 1000ml) 1,000 ml @ 150 mls/hr Q6H40M IV 02/24/17 09:00 02/25/17 03:50 DC 02/24/17 21:46 150 MLS/HR Cyclobenzaprine HCl (Flexeril Tab) 10 mg TID PRN PO 02/24/17 13:15 03/26/17 13:14 02/25/17 16:15 10 MG Escitalopram Oxalate (Lexapro Tab) 10 mg DAILY PO 02/24/17 14:10 03/26/17 14:09 02/26/17 09:10 10 MG Escitalopram Oxalate (Lexapro Tab) 20 mg DAILY PO 02/24/17 14:09 03/26/17 14:08 02/26/17 09:11 20 MG Acetaminophen 650 mg 650 mg Q4H PRN PO 02/24/17 15:15 02/24/17 17:42 DC 02/24/17 15:58 650 MG Sodium Chloride (Nss 1000ml) 1,000 ml @ 999 mls/hr Q1H1M IV 02/24/17 17:45 02/24/17 18:45 DC 02/24/17 17:55 999 MLS/HR Ibuprofen (Advil Tab) 400 mg QID PRN PO 02/24/17 17:45 03/26/17 17:44 02/25/17 16:16 400 MG Oxycodone HCl 5 mg 5 mg Q4 PRN PO 02/24/17 17:45 03/10/17 17:44 02/26/17 12:59 5 MG Sodium Chloride (Nss 1000ml) 1,000 ml @ 200 mls/hr Q5H IV 02/25/17 10:00 02/26/17 00:59 DC 02/25/17 19:55 200 MLS/HR Doxycycline Hyclate (Vibramycin Cap) 100 mg BID PO 02/25/17 14:00 03/07/17 13:59 02/26/17 09:11 100 MG Insulin Glargine (Lantus Solostar Pen) 5 unit BID SC 02/25/17 20:00 02/26/17 14:20 DC 02/26/17 09:17 5 UNIT Objective Vital Signs Date Time Temp Pulse Resp B/P Pulse Ox O2 Delivery O2 Flow Rate FiO2 02/26/17 15:23 36.9 78 18 117/69 95 Room Air 02/26/17 08:15 36.6 72 20 146/83 95 Room Air 02/26/17 07:45 95 Room Air 02/26/17 00:00 93 Room Air 02/25/17 23:45 36.4 67 20 124/82 94 Room Air Physical Exam General Appearance: no apparent distress Eyes: normal inspection ENT: normal ENT inspection Neck: supple Respiratory/Chest: normal breath sounds, no respiratory distress, no accessory muscle use Cardiovascular: regular rate, rhythm, no murmur Abdomen: normal bowel sounds, non tender, soft Extremities: non-tender, normal inspection, no pedal edema, no calf tenderness Neurologic/Psychiatric: alert, normal mood/affect, oriented x 3 Skin: normal color, warm/dry, no rash Lymphatic: no adenopathy Laboratory Results Results Past 24 Hours Test 02/25/17 16:36 02/25/17 19:51 02/26/17 07:41 02/26/17 11:22 Range/Units Bedside Glucose 230 247 211 277 70-99 mg/dl White Blood Count 5.32 4.8-10.8 K/uL Red Blood Count 4.45 4.7-6.1 M/uL Hemoglobin 13.6 14.0-18.0 g/dL Hematocrit 39.4 42-52 % Mean Corpuscular Volume 88.5 80-100 fL Mean Corpuscular Hemoglobin 30.6 25-34 pg Mean Corpuscular Hemoglobin Concent 34.5 32-36 g/dl RDW Standard Deviation 42.4 36.4-46.3 fL RDW Coefficient of Variation 13.0 11.5-14.5 % Platelet Count 124 130-400 K/uL Mean Platelet Volume 12.0 7.4-10.4 fL Prothrombin Time 12.2 9.0-12.0 SECONDS Prothromb Time International Ratio 1.1 0.9-1.1 Activated Partial Thromboplast Time 37.3 21.0-31.0 SECONDS Partial Thromboplastin Ratio 1.4 Sodium Level 140 136-145 mmol/L Potassium Level 3.9 3.5-5.1 mmol/L Chloride Level 105 98-107 mmol/L Carbon Dioxide Level 30 21-32 mmol/L Anion Gap 5.0 3-11 mmol/L Blood Urea Nitrogen 9 7-18 mg/dl Creatinine 1.20 0.60-1.40 mg/dl Est Creatinine Clear Calc Drug Dose 116.3 ml/min Estimated GFR () 84.7 Estimated GFR (Non- 73.1 BUN/Creatinine Ratio 7.3 10-20 Random Glucose 233 70-99 mg/dl Calcium Level 8.2 8.5-10.1 mg/dl Total Bilirubin 0.3 0.2-1 mg/dl Aspartate Amino Transf (AST/SGOT) 330 15-37 U/L Alanine Aminotransferase (ALT/SGPT) 277 12-78 U/L Alkaline Phosphatase 98 45-117 U/L Total Creatine Kinase 651 39-308 U/L Total Protein 6.6 6.4-8.2 gm/dl Albumin 2.9 3.4-5.0 gm/dl Globulin 3.7 2.5-4.0 gm/dl Albumin/Globulin Ratio 0.8 0.9-2 Test 02/26/17 14:50 Range/Units Urine Collection Time 24 HOURS Urine Total Volume 3950 mL Urine Creatinine 68.0 mg/dl Urine Creatinine 24 Hour 2.7 0.6-2.5 gm/24 HR Urine Creatinine Clearance 24 Hour 103.4 97-137 ml/min Urine Total Protein 24 Hour 513.5 0-149.1 mg/24 hr Urine Total Protein 13.0 0-11.9 mg/dl Assessment and Plan This is a 46 yo m with a significant history of myositis and pulmonary emboli which presented to the ED with myositis, transaminitis, fever and general malaise. A review of previous notes from [facility] reflected that he did have some previous rheumatologic work up which is noted below. The patient's symptoms are very suspicious for a rheumatologic disorder however because of his fever and no specific origin ID was consulted. Even thought his peripheral smear was WNL, because patient was very ill doxycycline was started empirically for potential anaplasmosis infection. SIRS criteria (fever, tachycardia) - improving, autoimmune vs infection vs fever of unknown origin - patient received tylenol/Ibuprofen for fever which improved after receiving- has been afebrile - blood cultures negative to date - UA did not reflect infection - CMV and EBV antigen - anaplasmosis antigen pending - ID consult - appreciate input - because of ongoing concern for anaplasmosis patient will be placed on doxycycline empirically Elevated CK reflecting myositis - follow CK - trending down - will try and get results from [facility] [place] - will continue to educate refraining from strenuous exercise - morphine 4 mg q 6 and oxycodone q4 for pain control 2015 labs: - ceruloplasmin - 30 (n); [place] - Neg, IgA - 585 (elevated), Aldolase - 37.6 (elevated), Anti smooth muscle and Anti mitochondrial - negative, tTG IgA- neg, Ferritin - 204, Fe Sat - 25, Iron- 75, TIBC- 299, alpha 1 antitrypsin - 167 (nm) , CMV non reactive HCV negative; ANCA- negative; Anticardiolipin - negative; B 2 GPI- Negative [place] secondary to dehydration vs rhabdomyolysis - continue to follow I&O and bmp Transaminitis - GGT was elevated which reflects some potential hepatic involvement - Abd USG - fatty liver otherwise neg Subtherapeutic INR with a history of pulmonary embolism - will bridge INR with Lovenox - Xarelto requires a pre auth so in the meantime will continue lovenox and coumadin Elevated BSG; new onset DM - HBA1C > 8% - insulin ISS, lantus has been added - hope is to d/c on metformin - Dm educator Depression/ Anxiety - continue lexapro and xanax ADHD - hold ritalin because of the tachy DVT Prophylaxis - lovenox and warfarin FULL CODE Dispo: d/c tomorrow if remains afebrile Resident Physician Supervision Note: I interviewed and examined the patient. Discussed with Dr. Cheney and agree with findings and plan as documented in the note. Any exceptions or clarifications are listed here: None feeling better, labs still pending ros otherwise negative except for as above vitals noted nad breathing unlabored no pallor or icterus myalgia/fever/elevated CPK/elevated LFTs -treat acutely for presumed anaplasmosis -ongoing w/u for presumed autoimmune or inflammatory disorder -hopefully home by tomorrow PE's - warfarin, working on hopefully xarelto. chronic does not appear acute PE 's this admission otherwise as above Documented By: Ha Harley Continued [facility] stay due to: other Discharge planning: uncertain
[2017-02-26] MEDS: WARFARIN SOD 5 MG TAB PO SCH (16:43)
[2017-02-26] MEDS: CYCLOBENZAPRINE HCL 5 MG TAB PO PRN (16:43)
--- NOTE | 2017-02-26 17:18 | Infectious Disease Progress Nt ---
Progress Note Date of Service February 26, 2017. Subjective Pt evaluation today including: conversation w/ patient, physical exam, chart review, lab review, review of studies, conversation w/ professional benefits sales consultant, review of inpatient medication list patient feeling better today with less myalgias. Remains afebrile. All cultures remain negative. Liver enzymes improving. All Other Systems: Reviewed and Negative Medications Current Inpatient Medications Medications (Trade) Dose Ordered Sig/Roxie Route Start Time Stop Time Status Last Admin Dose Admin Zolpidem Tartrate (Ambien Tab) 5 mg HSZ PRN PO 02/24/17 08:00 03/26/17 07:59 Ondansetron HCl (Zofran Inj) 4 mg Q6H PRN IV 02/24/17 08:00 03/26/17 07:59 Enoxaparin Sodium (Lovenox Inj) 141 mg Q12H SQ 02/24/17 08:00 03/26/17 07:59 02/26/17 09:12 141 MG Alprazolam (Xanax Tab) 1 mg TID PO 02/24/17 09:00 03/26/17 08:59 02/26/17 13:41 1 MG Fluticasone Propionate (Flonase Nasal [place]) 2 sprays DAILY PRN WALDEMAR 02/24/17 08:00 03/26/17 07:59 Metoprolol Succinate (Toprol Xl Tab) 150 mg DAILY PO 02/24/17 09:00 03/26/17 08:59 02/26/17 09:11 150 MG Warfarin Sodium (Coumadin Tab) 5 mg DAILY@1600 PO 02/24/17 16:00 03/26/17 15:59 02/26/17 16:43 5 MG Morphine Sulfate (MoRPHine SULFATE INJ) 4 mg Q6H PRN IV 02/24/17 08:00 03/10/17 07:59 02/25/17 12:15 4 MG Insulin Aspart (novoLOG ASPART) SLIDING SCALE G... ACHS SC 02/24/17 11:00 03/28/17 10:59 02/26/17 12:53 18 UNITS Cyclobenzaprine HCl (Flexeril Tab) 10 mg TID PRN PO 02/24/17 13:15 03/26/17 13:14 02/26/17 16:43 10 MG Escitalopram Oxalate (Lexapro Tab) 10 mg DAILY PO 02/24/17 14:10 03/26/17 14:09 02/26/17 09:10 10 MG Escitalopram Oxalate (Lexapro Tab) 20 mg DAILY PO 02/24/17 14:09 03/26/17 14:08 02/26/17 09:11 20 MG Ibuprofen (Advil Tab) 400 mg QID PRN PO 02/24/17 17:45 03/26/17 17:44 02/25/17 16:16 400 MG Oxycodone HCl (Roxicodone Immediate Rel Tab) 5 mg Q4 PRN PO 02/24/17 17:45 03/10/17 17:44 02/26/17 12:59 5 MG Glucose (Glucose 40% Gel) 15-30 GRAMS 15 GRAMS... UD PRN PO 02/25/17 08:00 03/27/17 07:59 Glucose (Glucose Chew Tab) 4-8 Tablets 4 Tabl... UD PRN PO 02/25/17 08:00 03/27/17 07:59 Dextrose (Dextrose 50% 50ML Syringe) 25-50ML OF 50% DW IV FOR... UD PRN IV 02/25/17 08:00 03/27/17 07:59 Glucagon (Glucagon Inj) 1 mg UD PRN SQ 02/25/17 08:00 03/27/17 07:59 Doxycycline Hyclate (Vibramycin Cap) 100 mg BID PO 02/25/17 14:00 03/07/17 13:59 02/26/17 09:11 100 MG Insulin Glargine (Lantus Solostar Pen) 10 unit BID SC 02/26/17 20:00 03/28/17 19:59 Objective Vital Signs Date Time Temp Pulse Resp B/P Pulse Ox O2 Delivery O2 Flow Rate FiO2 02/26/17 15:23 36.9 78 18 117/69 95 Room Air 02/26/17 08:15 36.6 72 20 146/83 95 Room Air 02/26/17 07:45 95 Room Air 02/26/17 00:00 93 Room Air 02/25/17 23:45 36.4 67 20 124/82 94 Room Air Physical Exam General Appearance: WD/WN, no apparent distress Eyes: normal inspection, EOMI, sclerae normal ENT: normal ENT inspection, pharynx normal Neck: supple, no adenopathy, trachea midline Respiratory/Chest: chest non-tender, lungs clear, normal breath sounds, no respiratory distress Cardiovascular: regular rate, rhythm, no gallop, no murmur Abdomen: normal bowel sounds, non tender, soft, no organomegaly Extremities: normal inspection, + pertinent finding ( Diffuse muscle tenderness) Neurologic/Psychiatric: alert, oriented x 3 Skin: normal color, warm/dry, no rash Lymphatic: no adenopathy Laboratory Results RUN DATE: 02/26/17 [facility] PAGE 1 RUN TIME: 702 Specimen Inquiry PATIENT: LASHANDA GAMEZ LOC: [id number] U # : [id number] AGE/SX: 46/M ROOM: [facility] REG : 02/24/[address]: Ha Harley D.O. : 1970 BED: 2 DIS : STATUS: ADM IN TLOC: SPEC #: [id number] JAMES: 02/24/17 STATUS: RES REQ #: [id number] RECD: 02/24/[address]: Cherri, Ha, D.O. SOURCE: BLOOD ENTR: 02/24/17-[address]: Jennifer Shah, Assigned [facility]: Kaylyn Cheney MD ORDERED: BLOOD CULTURE Procedure Result Verified Site BLD CULT Preliminary 02/26/17-702 NO GROWTH TO DATE. Last 24 Hours Test 02/25/17 19:51 02/26/17 07:41 02/26/17 11:22 02/26/17 14:50 Bedside Glucose 247 mg/dl 211 mg/dl 277 mg/dl White Blood Count 5.32 K/uL Red Blood Count 4.45 M/uL Hemoglobin 13.6 g/dL Hematocrit 39.4 % Mean Corpuscular Volume 88.5 fL Mean Corpuscular Hemoglobin 30.6 pg Mean Corpuscular Hemoglobin Concent 34.5 g/dl RDW Standard Deviation 42.4 fL RDW Coefficient of Variation 13.0 % Platelet Count 124 K/uL Mean Platelet Volume 12.0 fL Prothrombin Time 12.2 SECONDS Prothromb Time International Ratio 1.1 Activated Partial Thromboplast Time 37.3 SECONDS Partial Thromboplastin Ratio 1.4 Sodium Level 140 mmol/L Potassium Level 3.9 mmol/L Chloride Level 105 mmol/L Carbon Dioxide Level 30 mmol/L Anion Gap 5.0 mmol/L Blood Urea Nitrogen 9 mg/dl Creatinine 1.20 mg/dl Est Creatinine Clear Calc Drug Dose 116.3 ml/min Estimated GFR () 84.7 Estimated GFR (Non- 73.1 BUN/Creatinine Ratio 7.3 Random Glucose 233 mg/dl Calcium Level 8.2 mg/dl Total Bilirubin 0.3 mg/dl Aspartate Amino Transf (AST/SGOT) 330 U/L Alanine Aminotransferase (ALT/SGPT) 277 U/L Alkaline Phosphatase 98 U/L Total Creatine Kinase 651 U/L Total Protein 6.6 gm/dl Albumin 2.9 gm/dl Globulin 3.7 gm/dl Albumin/Globulin Ratio 0.8 Urine Collection Time 24 HOURS Urine Total Volume 3950 mL Urine Creatinine 68.0 mg/dl Urine Creatinine 24 Hour 2.7 gm/24 HR Urine Creatinine Clearance 24 Hour 103.4 ml/min Urine Total Protein 24 Hour 513.5 mg/24 hr Urine Total Protein 13.0 mg/dl Test 02/26/17 16:36 Bedside Glucose 159 mg/dl Patient Name: LASHANDA GAMEZ JR Unit Number: [id number] Dictated: 02/25/171125 Transcribed: 02/25/171125 MS Printed Date/Time: [~ rep prt dt]/[~ rep prt tm] [~ rep ct labl] - [~ rep ct ivnm] [facility] [place] [address] Dictated: 02/25/171125 Transcribed: 02/25/17 112 MS Printed Date/Time: [~ rep prt dt]/[~ rep prt tm] [~ rep ct labl] - [~ rep ct ivnm] [~ rep ct add3]] ABDOMINAL ULTRASOUND COMPLETE HISTORY: Pain. Abnormal liver function tests elevated LFT. COMPARISON: None. FINDINGS: Pancreas: The pancreas demonstrates a normal echotexture. Liver: Fatty infiltration Gallbladder: No gallbladder wall thickening. No gallstones. CBD: 5 mm Kidneys: No hydronephrosis. Spleen: Normal in size. Aorta: Normal in caliber. IVC: Patent. IMPRESSION: Fatty infiltration of liver. Otherwise negative study Electronically signed by: Michael Cabrera M.D. 02/25/2017 11:27 AM Dictated Date/Time: 02/25/2017 11:26 AM The status of this report is Signed. Draft = Not yet reviewed or approved by Radiologist. Signed = Reviewed and approved by Radiologist. <AttendingPhy>Ha Harley D.O.</AttendingPhy> <FamilyPhy>No Doctor, Assigned </FamilyPhy> <PrimaryPhy>No Doctor, Assigned</PrimaryPhy> <UnitNumber>[id number] </UnitNumber> <VisitNumber>[id number]</VisitNumber> <PatientName>LASHANDA GAMEZ JR</PatientName> <DateOfBirth>1970</DateOfBirth> <Location>[facility]</ Location> <ServiceDate>02/24/17</ServiceDate> <MNE>ESINDI</MNE> <OrderingPhy> Kaylyn Cheney MD</OrderingPhy> <OrderingPhyMNE>f rep ord dr roa</ OrderingPhyMNE> <DictatingPhyMNE>f rep dict dr roa</DictatingPhyMNE> <CCListMNE> f rep ct janina</CCListMNE> <AdmittingPhyMNE>f pt admit dr roa</AdmittingPhyMNE> < AttendingPhyMNE>f pt attend dr roa</AttendingPhyMNE> <ConsultingPhyMNE>f pt consult dr roa</ConsultingPhyMNE> <FamilyPhyMNE>f pt fam dr roa</FamilyPhyMNE> <OtherPhyMNE>f pt other dr roa</OtherPhyMNE> < PrimaryPhyMNE>f pt prim care dr roa</PrimaryPhyMNE> <ReferringPhyMNE>f pt referring dr roa</ReferringPhyMNE> Assessment and Plan 46 yo male with undiagnosed "autoimmune" myositis/ hepatitis now with 3 days of fevers, myalgias with elevation of CPK and LFTs and now dropping platelet count. I am concerned about possibility of anaplasma infection, even with negative peripheral smear, and have started empirically on doxycycline pending serology results. Blood cultures and further autoimmune workup is pending. Will follow.
[2017-02-27] VITALS: BP 147/89; PULSE 70; TEMP 36.7; O2SAT 95
[2017-02-27 07:35] VITALS: BP 124/83; PULSE 63; TEMP 36.6; O2SAT 97
[2017-02-27 07:40] LABS: HEMATOCRIT 41.3 % (42-52); MEAN CELL VOLUME 87.3 fL (80-100); MEAN CORPUSCULAR HGB CONC 34.4 g/dl (32-36); MEAN PLATELET VOLUME 12.7 fL (7.4-10.4); PLATELET COUNT 168 K/uL (130-400); RED BLOOD COUNT 4.73 M/uL (4.7-6.1); WHITE BLOOD COUNT 5.52 K/uL (4.8-10.8)
[2017-02-27 07:45] VITALS: O2SAT 97
[2017-02-27 07:49] LABS: INR 1.1 (0.9-1.1); PARTIAL THROMBOPLASTIN RATIO 1.3; PROTHROMBIN TIME (PATIENT) 12.3 SECONDS (9.0-12.0)
[2017-02-27 08:25] LABS: BUN/CREATININE RATIO 5.6 (10-20); CREATININE 1.3 mg/dl (0.60-1.40); POTASSIUM 3.9 mmol/L (3.5-5.1)
[2017-02-27 08:28] LABS: ALB/GLOB RATIO 0.7 (0.9-2)
[2017-02-27] MEDS: ESCITALOPRAM OXALATE 20 MG TAB PO SCH (08:45)
[2017-02-27] MEDS: ESCITALOPRAM OXALATE 10 MG TAB PO SCH (08:45)
[2017-02-27] MEDS: DOXYCYCLINE HYCLATE 100 MG CAP PO SCH (08:45)
[2017-02-27 08:46] LABS: CALCIUM 8.7 mg/dl (8.5-10.1)
[2017-02-27] MEDS: ENOXAPARIN 150 MG/1ML SYR SQ SCH (08:46)
[2017-02-27] MEDS: METOPROLOL SUCC 50MG EXT REL TAB PO SCH (08:46)
[2017-02-27] MEDS: IBUPROFEN 200 MG TAB PO PRN (08:47)
[2017-02-27] MEDS: ALPRAZOLAM 0.5 MG TAB PO SCH (08:50)
[2017-02-27] MEDS: INSULIN GLARGINE SOLOSTAR 100 UNITS/ML 3 ML PEN SC SCH (09:09)
[2017-02-27] MEDS: INSULIN ASPART 100 UNITS/ML 3 ML PEN SC SCH ×2 (09:09→12:04)
[2017-02-27] MEDS ORDERED: LANC-393 EX (09:52)
[2017-02-27] MEDS: OXYCODONE HCL IR 5 MG TAB (IMMEDIATE RELEASE) PO PRN (09:54)
[2017-02-27] MEDS ORDERED: GLC/500 PO (09:58)
[2017-02-27] MEDS ORDERED: DXY100 PO (09:58)
[2017-02-27] MEDS ORDERED: RXC5 PO (09:58)
[2017-02-27] MEDS ORDERED: CYCL10TA6 PO (09:58)
--- NOTE | 2017-02-27 10:18 | Discharge Instructions ---
Discharge Instructions Date of Service February 27, 2017. Admission Reason for Admission: Fever And Chills, Myositis, Transaminitis Discharge Discharge Diagnosis / Problem: presumed autoimmune process still under workup, new onset diabetes Discharge Goals Goal(s): Diagnostic testing, Therapeutic intervention Activity Recommendations Activity Limitations: resume your previous activity . Instructions / Follow-Up Instructions / Follow-Up a) muscle ache/fever/blood clots -your whole syndrome certainly appears that something inflammatory or autoimmune is going on -- this is still a "work in progress" as some of the labs we sent that might define this are still pending and likely won't be back till early next week -follow up at Dr Azevedo's office next week as scheduled; depending on what they see on the labs we've sent, they may need to set up further testing or may just need the help from rheumatology. -because of this, we've gotten you already scheduled with Dr Blair at [facility] - unfortunately that's not until April - after your appointment at Dr Azevedo's next week, if it's clear that they need input from rheumatology, I would recommend calling once or twice a week to check on any cancellations. from personal experience with needing to get in with backlogged specialists with situations with my , it's surprising how often that will allow you to move an appointment up (sometimes even weeks!) -for now, continue the "band aid" of symptom control: -flexeril (cyclobenzaprine) up to three times a day for spasms -oxycodone or ibuprofen (over the counter - 400mg - so two over the counter pills) as needed for pain --- use both alternatingly so as to minimize side effect possibilities (the oxycodone can cause grogginess, mental slowing, constipation; ibuprofen can cause stomach upset/ulcers, and kidney troubles) -stay well hydrated (whatever is going on will likely hurt more if you're dehydrated) b) blood clots in the lungs --there's nothing that looked worrisome for new blood clots at this time, but since you've formed multiple clots over your lifetime, it is necessary to have you on a blood thinner indefinitely --fortunately the xarelto got approved, so no more coumadin. the xarelto is a 20mg pill once a day - the Rx has been sent to your pharmacy c) new onset diabetes -as we discussed, this has likely been slowly building for a while -most of the time the biggest part of what causes type 2 diabetes is lifestyle. since you exercise regularly the biggest thing to look at is what you eat -check sugars ~1.5 - 2 hours after you eat - goal of 100-150 for a sugar reading then. if you see sugars higher than 150, look back at what you just ate - in real time it will give you feedback on what the food has done to you - - both in terms of "high sugars clog arteries" and in terms of insulin resistance being a progressive problem (meaning that anytime you eat/drink something that bumps your sugar above 150, you've clogged a few small blood vessels that you can't get back, and you've made your muscles want a little more insulin -- made yourself slightly worse as a diabetic -- each time. the beauty of that is when you start to see the foods you eat that bump your sugar ( typically breads, pastas, potatos, sugars/starches) and you start to minimize those, not only could you get the sugar under better control and reduce risk of future heart attacks and strokes, but also there's good odds you could put your diabetes "into remission" and get rid of the sugar medications -typically for a diabetic, we also need to give strong consideration to an aspirin for small blood vessel clogging protection, and a statin (like lipitor) to protect arteries from the double-hit of sugar and cholesterol clogging -- but for now, with the need for blood thinner for the blood clots, and the elevated liver enzymes, and the "[id number]" with the fever/muscle ache issue, it's going to be safer to keep these possibilities on the back- burner...once all of the above is dealt with/figured out/stabilized, then it will be worth discussion on an aspirin and a statin (or maybe by then you'll have made yourself an "ex-diabetic" and the whole conversation will be moot!) -metformin is the typical first-line medication for type 2 diabetes - it's usual range is 500mg once a day up to 1000mg twice a day. most people tolerate it really well, sometimes people will get stomach cramps or diarrhea -- but while studies would say that might be ~15-20% of people, in my personal practice i'd say i see more like 5% have to stop it because of problems. it works to make your muscles more sensitive to the insulin your pancreas makes, and it slows down how much your liver dumps sugar into your bloodstream - because of this mechanism of action, it really can't cause low sugars, which is a nice protection -your current A1c of 8.7% is definitely in "artery clogging" range -- a nondiabetic would be less than about 6.4%. if you're able to change eating habits enough to make yourself an ex-diabetic, then perfect...if we're treating to goal with medications, because of being otherwise young and healthy, a reasonable initial target to protect you from clogging arteries and also protect you from being overmedicated would be an A1c around 6.5% (again if you make it lower by eating/exercise and you throw away the medication, great! but that is different with risks/benefits because the lifestyle has "cured" the disease as opposed to the risk/benefit balance you strike when you're medicating a disease under control) anaplasmosis -we're treating for a presumptive diagnosis of anaplasmosis - a common tick borne infection that we see around here that if we "put on blinders" and just look at how you look in the here and now (rather than the big picture of these symptoms coming and going) could easily cause exactly how you're feeling. anaplasmosis can be tough to "perfectly" diagnose since most tests for it can miss as many as 40% of people with the infection - so we're treating with the antibiotic (doxycycline) for 2 weeks with what we call empiric treatment ( meaning there's enough suspicion that this is going on, and the diagnostic tests are so inaccurate, that it's safer to treat and be sure it's no longer a factor) --the main possible thing to worry about with doxycycline is sun sensitivity. what we'd suggest is that for the time you're on the doxycycline (and a week or two after) you basically act as though you're at the beach as far as wearing sunblock, protective clothing, etc elevated liver enzymes -there's probably a few things going on there: the sugar/cholesterol end of things makes livers infiltrated with fat - that can definitely cause a big part of the elevation in your liver enzymes, and as you get that under control this will improve. it's also very common that anaplasmosis infections elevate liver enzymes, and lastly, it's also quite possible that when we "get a face" on your inflammatory/autoimmune disease that this could be elevating liver enzymes as well -for now we'll want dr azevedo to check labs again next week and then periodically thereafter depending on next weeks' results -until this is settled and done, protect your liver from other possible harms: avoid anything with tylenol (acetaminophen) as it is pretty toxic on the liver ( hence why we prescribed oxycodone instead of percocet (which combines oxycodone and acetaminophen); and obviously avoid any alcohol at all have labs (CBC, CMP) drawn at your office follow up next week (in addition to anything else that might be warranted based on your above results/progress) Current Hospital Diet Patient's current hospital diet: Diabetes Type 2 Diet, Low Sodium Diet (2gm Na) , AHA Diet (Heart Healthy) Discharge Diet Recommended Diet: Diabetes Type 2 Diet (low in sugars/starches/breads/etc) Pending Studies Studies pending at discharge: yes List of pending studies: antiphospholipid antibodies, other serology tests - that should be back by your follow up next week Laboratory Results Hemoglobin A1c Test 02/24/17 05:18 Range/Units Estimated Average Glucose 203 mg/dl Hemoglobin A1c 8.7 H 4.5-5.6 % Lipid Panel Test 02/24/17 05:18 Range/Units Triglycerides Level 336 H 0-150 mg/dl Cholesterol Level 187 0-200 mg/dl HDL Cholesterol 29 mg/dl Cholesterol/HDL Ratio 6.4 LDL Cholesterol, Calculated 91 mg/dl Medical Emergencies . Who to Call and When: Medical Emergencies: If at any time you feel your situation is an emergency, please call 911 immediately. . Non-Emergent Contact Non-Emergency issues call your: Primary Care Provider . . "Provider Documentation" section prepared by Ha Harley. . VTE Core Measure Inpt VTE Proph given/why not?: Enoxaparin (Lovenox)SQ, Warfarin (Coumadin)
[2017-02-27] MEDS ORDERED: RIVA1TAB4 PO (10:55)
[2017-02-27 11:00] VITALS: BP 124/83; PULSE 63; TEMP 36.6; O2SAT 97
--- NOTE | 2017-02-27 11:58 | Discharge Summary ---
Discharge Summary Date of Service February 27, 2017. (Kaylyn Cheney MD) Discharge Summary Admission Date: February 24, 2017 at 07:54 Discharge Date: February 27, 2017 Discharge Disposition: Home Principal Diagnosis: myositis, bridgette Problems/Secondary Diagnoses: (1) Anxiety Status: Chronic (2) CKD (chronic kidney disease), stage III Status: Chronic (3) Costochondritis Status: Chronic (4) Depression Status: Chronic (5) Elevated CK Status: Chronic (6) Essential hypertension Status: Chronic (7) GERD (gastroesophageal reflux disease) Status: Chronic (8) H/O colonoscopy Status: Chronic (9) H/O esophagogastroduodenoscopy Status: Chronic (10) History of esophageal ulcer Status: Chronic (11) History of muscle biopsy Status: Chronic (12) History of rectal surgery Status: Chronic (13) Hx of pulmonary embolus Status: Chronic (14) Hyperlipidemia Status: Chronic (15) Hypertension Status: Chronic (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 (17) Prediabetes Status: Chronic (18) S/P cardiac catheterization Status: Chronic Immunizations: Have You Had Influenza Vaccine: Yes Influenza Vaccine Date: Jul 18, 2013 History of Tetanus Vaccine?: 2008 Tetanus Immunization Date: Aug 21, 2009 History of Pneumococcal: No History of Hepatitis B Vaccine: No Consultations: Dr Hernández- infectious disease (Kaylyn Cheney MD) Medication Reconciliation New Medications: Doxycycline Hyclate (Doxycycline Hyclate) 100 Mg Cap 1 TAB PO BID, #23 TAB Lancets (Onetouch Delica Lancets) 1 Mis Mis BOX EX DIRECTED, #1 Metformin Hcl (Glucophage) 500 Mg Tab 500 MG PO DAILY, #30 TAB Rivaroxaban (Xarelto) 20 Mg Tab 1 TAB PO DAILY for 30 Days, #30 TAB 11 Refills Oxycodone HCl (Oxycodone HCl) 5 Mg Tab 5 MG PO Q4 PRN for moderate pain, #45 TAB Continued Medications: Alprazolam (Xanax) 1 Mg Tab 1 MG PO TID, TAB Cyclobenzaprine Hcl (Flexeril) 10 Mg Tab 10 MG PO TID PRN for Muscle Spasms, #30 TAB (This prescription has been renewed) Escitalopram (Lexapro) 10 Mg Tab 10 MG PO DAILY, TAB Escitalopram Oxalate (Lexapro) 20 Mg Tab 20 MG PO DAILY, TAB Fluticasone Propionate (Nasal) (Flonase Allergy Relief) 50 Mcg/Act Spr 2 SPRAYS WALDEMAR DAILY PRN for ALLERGIC REACTION Methylphenidate (Ritalin) 20 Mg Tab 20 MG PO BID, TAB Metoprolol Succ (Toprol Xl) (Toprol-Xl ) 100 Mg Tabcr 150 MG PO DAILY Zolpidem Tartrate (Ambien) 10 Mg Tab 10 MG PO HS for 30 Days, #30 TAB 5 Refills Discontinued Medications: Warfarin Sod (Jantoven) 5 Mg Tab 5 MG PO DAILY Discharge Exam Patient is feeling better, muscle aches only involving the quads and shoulders now extensive instructions given regarding diabetes and appropriate diet and reflected understanding Aware of follow up instructions Patient is agreeable to d/c Review of Systems: Constitutional: No fever Eyes: No worsening of vision ENT: No hearing loss Respiratory: No cough, No dyspnea at rest, No dyspnea on exertion, No shortness of breath, No sputum, No wheezing Cardiovascular: No chest pain Abdomen: No constipation, No diarrhea, No nausea, No pain, No vomiting Musculoskeletal: + muscle pain, No joint pain Genitourinary - Male: No dysuria, No hematuria Neurologic: No balance problems, No numbness/tingling, No weakness Psychiatric: No depression symptoms Endocrine: No fatigue Integumentary: No rash Physical Exam: General Appearance: no apparent distress Eyes: normal inspection ENT: normal ENT inspection Neck: supple Respiratory/Chest: normal breath sounds, no respiratory distress, no accessory muscle use Cardiovascular: regular rate, rhythm, no murmur Abdomen / GI: normal bowel sounds, non tender, soft Extremities: no calf tenderness, no pedal edema Neurologic/Psychiatric: alert, normal mood/affect, oriented x 3 Skin: normal color, warm/dry, no rash Lymphatic: no adenopathy (Kaylyn Cheney MD) Hospital Course This is a 46 yo m with a significant history of myositis and pulmonary emboli which presented to the ED with myositis, transaminitis, fever and general malaise. A review of previous notes from [place] reflected that he did have some previous rheumatologic work up which is noted below. The patient's symptoms are very suspicious for a rheumatologic disorder however because of his fever and no specific origin ID was consulted. Even thought his peripheral smear was WNL, because patient was very ill doxycycline was started empirically for potential anaplasmosis infection. this will be continued in the outpt setting for a 14 day course. SIRS criteria (fever, tachycardia) - improving, autoimmune vs infection vs fever of unknown origin - blood cultures negative to date - UA did not reflect infection - CMV and EBV antigen- pending - anaplasmosis antigen pending - ID consult - because of ongoing concern for anaplasmosis patient will be placed on doxycycline empirically - side effect of doxycyline instructions given Elevated CK reflecting myositis - follow CK - trending down - will continue to educate refraining from strenuous exercise 2015 labs: - ceruloplasmin - 30 (n); [place] - Neg, IgA - 585 (elevated), Aldolase - 37.6 (elevated), Anti smooth muscle and Anti mitochondrial - negative, tTG IgA- neg, Ferritin - 204, Fe Sat - 25, Iron- 75, TIBC- 299, alpha 1 antitrypsin - 167 (nm) , CMV non reactive HCV negative; ANCA- negative; Anticardiolipin - negative; B 2 GPI- Negative - Has a follow up with rheumatology in April for further investigations BRIDGETTE secondary to dehydration - resolved on d/c Transaminitis - GGT was elevated which reflects some potential hepatic involvement - Abd USG - fatty liver otherwise neg - recommend follow up LFT in approx a week Subtherapeutic INR with a history of pulmonary embolism - Xarelto pre auth accepted- rx given Elevated BSG; new onset DM - HBA1C > 8% - d/c with metformin Depression/ Anxiety - continue lexapro and xanax ADHD - hold ritalin FULL CODE Total Time Spent: Greater than 30 minutes This includes examination of the patient, discharge planning, medication reconciliation, and communication with other providers. (Kaylyn Cheney MD) Resident Physician Supervision Note: I interviewed and examined the patient. Discussed with Dr. Cheney and agree with findings and plan as documented in the note. Any exceptions or clarifications are listed here: None Documented By: Ha Harley feeling OK for discharge, explained plan - labs pending, current meds, f/u PCP then if current labs provide all answers ongoing management/if not ongoing w/u. rheumatology scheduled. 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 treating presumptively w doxy per ID elevated LFTs -possibly related to anaplasmosis, fatty liver -treat as above, follow serial CMP new onset DM -metformin -extensive lifestyle discussions, check postprandial glucoses otehrwise as above and as per discharge instructions stable for home Total Time Spent: Greater than 30 minutes (Ha Harley D.O.) Discharge Instructions Please refer to the electronic Patient Visit Report (Discharge Instructions) for additional information. (Kaylyn Cheney MD) Additional Copies To Edgardo Azevedo D.O.
[2017-02-27 18:33] LABS: ANAPLASMA PHAGOCYTOPHIL IGG <1:64 (<1:64); ANAPLASMA PHAGOCYTOPHIL IGM <1:20 (<1:20)
[2017-02-28 07:33] LABS: B2 GLYCOPROTEIN IGA <9 SAU (<=20); B2 GLYCOPROTEIN IGG <9 SGU (<=20); B2 GLYCOPROTEIN IGM <9 SMU (<=20); DRVVT MIX INTERPRETAION Not Indicated; LAC PTT SCREEN 77 sec (<=40); PHOSPHATIDYLSERINE IGA <20 U/mL (<20); PHOSPHATIDYLSERINE IGG <10 U/mL (<10); PHOSPHATIDYLSERINE IGM <25 U/mL (<25)
[2017-02-28 10:40] LABS: EBV EARLY ANTIGEN AB <0.91 INDEX; EPSTEIN BARR VIR CAPSID IGG 3.81 INDEX
[2017-03-03 12:09] LABS: LUPUS ANTICOAGULANT** TC36573X Positive (Negative); THROMBIN TIME(REFLEX!DO NOTORD 25 sec (13-19)
[2017-03-11] MEDS ORDERED: RXC5 PO (13:39)
[2017-03-11] MEDS ORDERED: NVLGIPEN SC (13:39)
[2017-04-10] MEDS ORDERED: INSDGIPEN SQ (03:59)
[2017-04-10] MEDS ORDERED: CYCL10TA6 PO (04:00)
[2017-04-10] MEDS ORDERED: METFTAB PO (04:02)
[2017-04-10] MEDS ORDERED: OXYC1TAB3 PO (04:03)
[2017-04-10] MEDS ORDERED: RIVA1TAB4 PO (04:04)
[2017-04-11] MEDS ORDERED: PANT40TA PO (14:37)
[2017-06-15] MEDS ORDERED: METO100T44 PO ×2 (11:39→12:07)
[2017-06-15] MEDS ORDERED: SENN-65 PO ×2 (11:39→12:07)
[2017-06-15] MEDS ORDERED: MRLP17X OR ×2 (11:39→12:07)
[2017-07-24] MEDS ORDERED: NVLG SQ (19:08)
[2017-07-24] MEDS ORDERED: ESCI1TAB18 PO (19:08)
[2017-07-24] MEDS ORDERED: CYCL10TA6 PO (19:08)
[2017-07-24] MEDS ORDERED: METFTAB PO (19:08)
[2017-07-24] MEDS ORDERED: ESCI10TA17 PO (19:08)
[2017-07-24] MEDS ORDERED: OXYC1TAB3 PO (19:08)
[2017-07-24] MEDS ORDERED: INSDGIPEN SQ (19:08)
[2017-07-24] MEDS ORDERED: PANT40TA PO (19:08)
[2017-09-19] MEDS ORDERED: GLC500 PO (13:03)
[2017-09-19] MEDS ORDERED: CYCL10TA6 PO (13:03)
[2017-09-19] MEDS ORDERED: NVLG SC (13:03)
[2017-09-19] MEDS ORDERED: OXYC-164 PO (13:03)
[2017-09-19] MEDS ORDERED: FSTTS EXT (13:03)
[2017-09-19] MEDS ORDERED: LVMI SC (13:03)
== END 2017-02-27 12:42 | disposition home or self-care (01) | DRG 868 ==
LOC: ENRESERVDT → ENRESERVTM → C.EDB 04:46 → C.MS4W 07:54
PROVIDERS: ADMIT Family Medicine; ATTEND Family Medicine
DX: A77.49 Other ehrlichiosis (principal); N17.9 Acute kidney failure, unspecified; M60.80 Other myositis, unspecified site; E11.65 Type 2 diabetes mellitus with hyperglycemia; E86.0 Dehydration; R74.0 Nonspecific elevation of levels of transaminase and lactic acid dehydrogenase [LDH]; R79.1 Abnormal coagulation profile; K76.0 Fatty (change of) liver, not elsewhere classified; F41.9 Anxiety disorder, unspecified; F32.9 Major depressive disorder, single episode, unspecified; F90.9 Attention-deficit hyperactivity disorder, unspecified type; Z91.14 Patient's other noncompliance with medication regimen; Z86.711 Personal history of pulmonary embolism; Z79.01 Long term (current) use of anticoagulants; Z79.899 Other long term (current) drug therapy

== ENCOUNTER 2017-03-04 19:05 | Inpatient (IN) | payer OTHER ==
[~2017-03-04] VITALS: Ht 188 cm; Wt 135.2 kg
[~2017-03-04 19:05] MED LIST changes: -FSTTS; -FSTTS EXT; -GLC500 PO; -INSDGIPEN SC; -INSDGIPEN SQ; -INSU32MI13; -LANC-393; -LISI-461 PO; -LSN20 PO; -LSN5 PO; -LVMI SC; -METFTAB PO; -METO100T7 PO; -METO50TA7 PO; -MRLP17X OR; -NVLG SC; -NVLG SQ; -NVLGIPEN SC; -OXYC-164 PO; -OXYC1TAB3 PO; -PANT40TA PO; -SENN-65 PO
[2017-03-04 19:32] LABS: BASO % 0.6 %; BASO ABS # 0.04 K/uL (0-0.2); COMPLETE YES; EOS % 2.1 %; IG% 0.2 %; LYMPH % 38.4 %; LYMPH ABS # 2.56 K/uL (1.2-3.4); MEAN CELL VOLUME 86.7 fL (80-100); MEAN CORPUSCULAR HEMOGLOBIN 29.5 pg (25-34); MEAN PLATELET VOLUME 13.2 fL (7.4-10.4); MONO % 6.2 %; NEUT % 52.5 %; PLATELET COUNT 219 K/uL (130-400); RED BLOOD COUNT 5.19 M/uL (4.7-6.1); WHITE BLOOD COUNT 6.66 K/uL (4.8-10.8)
--- NOTE | 2017-03-04 19:35 | EMERGENCY ROOM VISIT NOTE ---
History Report prepared by Chad: Jason Cavanaugh Under the Supervision of: Dr. Ha Fox D.O. First contact with patient: 19:10 Chief Complaint: HYPERGLYCEMIA Stated Complaint: DIZZINESS,FATIGUE,MUSCLE AND CHEST PAIN,HIGH SUGAR History of Present Illness The patient is a 46 year old male who presents to the Emergency Room with complaints of abnormal blood work occurring today. He had an elevated creatinine level and a blood sugar level of 761. He has not been diagnosed with diabetes and is not on any medications. He denies any family history of diabetes. He has lost about 15 pounds in the past week. He has not received any steroids recently. He has a history of borderline kidney disease. He also currently complains of chest pain which occurs with exertion. He was evaluated from February 24 to February 27 at [facility] for a similar chest pain to today. He did not receive a CT scan to check for blood clots due to elevated creatinine levels. He has a history of pulmonary embolism. He was recently switched from Coumadin to Xarelto. He also has a history of clotting disorder. He also complains of generalized weakness and generalized pain in bilateral arms and legs. He has a history of myositis. He reports nausea but denies vomiting. He has an increased frequency of urination. Pt denies headache, change in vision, fevers, shortness of breath, diarrhea, pain with urination, and melena. Source of History: patient Onset: today Position: other (global) Symptom Intensity: elevated creatinine level and a blood sugar level of 761 Quality: other (abnormal blood work) Associated Symptoms: + chest pain, + nausea, + weakness, No SOB, No diarrhea , No fevers, No headache, No vomiting Review of Systems See HPI for pertinent positives & negatives. A total of 10 systems reviewed and were otherwise negative. 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 (25) Pharyngitis (26) Pleuritic chest pain (27) Prediabetes (28) Substernal chest pain (29) Suspected pulmonary embolism (30) Transaminitis Surgical Problems: (1) H/O colonoscopy (2) H/O esophagogastroduodenoscopy (3) History of muscle biopsy (4) History of rectal surgery (5) S/P cardiac catheterization Family History Blood clots FH: brain aneurysm MOTHER (mother, age 32) Social History Smoking Status: Never Smoker Alcohol Use: occasionally Drug Use: none Marital Status: single Housing Status: lives alone Occupation Status: disabled Current/Historical Medications Scheduled Alprazolam (Xanax), 1 MG PO TID Escitalopram (Lexapro), 10 MG PO DAILY Escitalopram Oxalate (Lexapro), 20 MG PO DAILY Metformin Hcl (Glucophage), 500 MG PO DAILY Methylphenidate (Ritalin), 20 MG PO BID Metoprolol Succ (Toprol Xl) (Toprol-Xl ), 150 MG PO DAILY Rivaroxaban (Xarelto), 1 TAB PO DAILY Zolpidem Tartrate (Ambien), 10 MG PO HS Scheduled PRN Cyclobenzaprine Hcl (Flexeril), 10 MG PO TID PRN for Muscle Spasms Fluticasone Propionate (Nasal) (Flonase Allergy Relief), 2 SPRAYS WALDEMAR DAILY PRN for ALLERGIC REACTION Oxycodone HCl (Oxycodone HCl), 5 MG PO Q4 PRN for moderate pain Durable Medical Equipment Lancets (AVdirect Lancets), BOX EX DIRECTED Allergies Coded Allergies: Iodine (Verified Allergy, Severe, THROAT SWELLING, 03/04/17) 02/18/13: patient denies IV contrast allergy Patient has been pre-treated in the past with methylprednisolone and diphenhydramine without incident following IV dye administration. Shellfish (Verified Allergy, Severe, THROAT SWELLING, 03/04/17) Iodinated Diagnostic Agents (Verified Allergy, Unknown, swelling, 03/04/17) Plasma, Human (Verified Allergy, Unknown, ANAPHYLAXIS, 03/04/17) Acetaminophen (Verified Adverse Reaction, Unknown, GI ISSUES, 03/04/17) Hydrocodone (Verified Adverse Reaction, Unknown, GI ISSUES, 03/04/17) Physical Exam Vital Signs Date Time Temp Pulse Resp B/P Pulse Ox O2 Delivery O2 Flow Rate FiO2 03/04/17 21:52 Room Air 03/04/17 21:38 92 03/04/17 20:14 99 18 114/56 94 Room Air 03/04/17 19:09 36.9 76 16 121/77 95 Room Air Physical Exam GENERAL: Sitting up in bed, no distress, non-toxic EYE EXAM: normal conjunctiva OROPHARYNX: no exudate, no erythema, lips, buccal mucosa, and tongue normal and mucous membranes are moist NECK: supple, no nuchal rigidity, no adenopathy, non-tender LUNGS: Clear to auscultation. Normal chest wall mechanics HEART: Tachycardic rate and regular rhythm. no murmurs, S1 normal and S2 normal ABDOMEN: abdomen soft, non-tender, normo-active bowel sounds, no masses, no rebound or guarding. BACK: Back is symmetrical on inspection and there is no deformity, no midline tenderness, no CVA tenderness. SKIN: no rashes and no bruising UPPER EXTREMITIES: upper extremities are grossly normal. LOWER EXTREMITIES: No pitting edema. NEURO EXAM: Normal sensorium, cranial nerves II-XII grossly intact, normal speech, no gross weakness of arms, no gross weakness of legs. Medical Decision & Procedures ER Provider Diagnostic Interpretation: X-ray results as stated below per my and radiologist's interpretation: CHEST ONE VIEW PORTABLE HISTORY: Dizziness. Atypical chest pain. Fatigue. COMPARISON: Chest 02/24/2017. FINDINGS: The lungs are clear. Cardiac silhouette is normal in size. No pleural effusions. No pneumothorax. IMPRESSION: No acute process. Electronically signed by: Pete Lawson M.D. 03/04/2017 8:00 PM Dictated Date/Time: 03/04/2017 7:59 PM Laboratory Results 03/04/17 19:15 Red Blood Count 5.19, Mean Corpuscular Volume 86.7, Mean Corpuscular Hemoglobin 29.5, Mean Corpuscular Hemoglobin Concent 34.0, Mean Platelet Volume 13.2, Neutrophils (%) (Auto) 52.5, Lymphocytes (%) (Auto) 38.4, Monocytes (%) (Auto) 6.2, Eosinophils (%) (Auto) 2.1, Basophils (%) (Auto) 0.6, Neutrophils # (Auto) 3.50, Lymphocytes # (Auto) 2.56, Monocytes # (Auto) 0.41, Eosinophils # (Auto) 0.14, Basophils # (Auto) 0.04 Test 03/04/17 19:15 03/04/17 19:27 03/04/17 19:32 03/04/17 21:55 White Blood Count 6.66 K/uL (4.8-10.8) Red Blood Count 5.19 M/uL (4.7-6.1) Hemoglobin 15.3 g/dL (14.0-18.0) Hematocrit 45.0 % (42-52) Mean Corpuscular Volume 86.7 fL (80-100) Mean Corpuscular Hemoglobin 29.5 pg (25-34) Mean Corpuscular Hemoglobin Concent 34.0 g/dl (32-36) Platelet Count 219 K/uL (130-400) Mean Platelet Volume 13.2 fL (7.4-10.4) Neutrophils (%) (Auto) 52.5 % Lymphocytes (%) (Auto) 38.4 % Monocytes (%) (Auto) 6.2 % Eosinophils (%) (Auto) 2.1 % Basophils (%) (Auto) 0.6 % Neutrophils # (Auto) 3.50 K/uL (1.4-6.5) Lymphocytes # (Auto) 2.56 K/uL (1.2-3.4) Monocytes # (Auto) 0.41 K/uL (0.11-0.59) Eosinophils # (Auto) 0.14 K/uL (0-0.5) Basophils # (Auto) 0.04 K/uL (0-0.2) RDW Standard Deviation 40.0 fL (36.4-46.3) RDW Coefficient of Variation 12.6 % (11.5-14.5) Immature Granulocyte % (Auto) 0.2 % Immature Granulocyte # (Auto) 0.01 K/uL (0.00-0.02) Total Bilirubin 0.8 mg/dl (0.2-1) Direct Bilirubin 0.3 mg/dl (0-0.2) Aspartate Amino Transf (AST/SGOT) 155 U/L (15-37) Alanine Aminotransferase (ALT/SGPT) 316 U/L (12-78) Alkaline Phosphatase 168 U/L (45-117) Total Creatine Kinase 571 U/L (39-308) Troponin I < 0.015 ng/ml (0-0.045) Total Protein 9.6 gm/dl (6.4-8.2) Albumin 4.3 gm/dl (3.4-5.0) Lipase 282 U/L (73-393) HIV (1&2) Ab and P24 Ag, 4th Gener NEG (NEG) Bedside Lactic Acid Venous 2.94 mmol/L (0.90-1.70) Bedside Hemoglobin 17.0 g/dl (14.0-18.0) Bedside Hematocrit 50 % (42-52) Bedside Sodium 128 mEq/L (135-144) Bedside Potassium 4.0 mEq/L (3.3-5.0) Bedside Chloride 86 mEq/L (101-112) Bedside Total CO2 28 mEq/l (24-31) Bedside Blood Urea Nitrogen 22 mg/dl (7-18) Bedside Creatinine 2.4 mg/dl (0.6-1.3) Bedside Glucose (other) 637 mg/dl (70-99) Bedside Ionized Calcium (Howard) 1.16 mmol/l (1.12-1.32) Venous Blood pH 7.37 (7.36-7.41) Venous Blood Partial Pressure CO2 56 mmHg (38.0-50.0) Venous Blood Partial Pressure O2 28 mmHg Venous Blood HCO3 31 mmol/L Venous Blood Oxygen Saturation < 60.0 % Venous Blood Base Excess 4.7 mmol/L Laboratory results per my review. Medications Administered Medications (Trade) Dose Ordered Sig/Roxie Route Start Time Stop Time Status Last Admin Dose Admin Potassium Chloride 30 meq 30 meq NOW STAT PO 03/04/17 20:12 03/04/17 20:13 DC 03/04/17 20:48 30 MEQ Sodium Chloride 2,000 ml @ 999 mls/hr Q2H1M STAT IV 03/04/17 20:12 03/04/17 22:12 DC 03/04/17 20:45 999 MLS/HR Insulin Human Regular 4 unit/ Syringe 4 ml @ 1 mls/min TODAY@2019 IV 03/04/17 20:20 03/04/17 20:23 DC 03/04/17 20:42 1 MLS/MIN Insulin Human Regular/Sodium Chloride (novoLIN-R/Nss 250ml) 252.5 ml @ 0 mls/hr TODAY@2029 IV 03/04/17 20:30 03/04/17 23:59 DC 03/04/17 20:43 4 MLS/HR Morphine Sulfate (MoRPHine SULFATE INJ) 4 mg NOW STAT IV 03/04/17 20:27 03/04/17 20:28 DC 03/04/17 21:08 4 MG Ondansetron HCl (Zofran Inj) 4 mg NOW STAT IV 03/04/17 20:27 03/04/17 20:28 DC 03/04/17 21:07 4 MG ECG Indication: chest pain Rate (beats per minute): 103 Rhythm: sinus tachycardia Findings: T-wave inversion (Lateral), other (normal axis) Comparison ECG Date: February 24, 2017 Change: Slight ST elevation in v2 and inverted T-waves are old when compared to February 24, 2017. ED Course ED COURSE: Vital signs were reviewed and showed tachycardic. The patients medical record was reviewed The above diagnostic studies were performed and reviewed. ED treatments and interventions as stated above. 0: The patient was evaluated in room B10. A complete history and physical examination was performed. 2012: Sodium Chloride 2000 ml @ 999 mls/hr IV, Potassium Chloride 30 meq PO 2013: Insulin Human Regular 1 ea N/A 2020: Insulin Human Regular 4 unit/Syringe 4 ml @ 1 mls/min IV 2026: Zofran Inj 4 mg IV, Morphine Sulfate 4 mg IV 2030: Insulin Human Regular 250 units/Sodium Chloride 252.5 ml @ 0 mls/hr Protocol IV 2043: Upon reevaluation, the patient is resting comfortably. I discussed my findings with the patient and he understands and agrees with the treatment plan. Based on the patients age, coexisting illnesses, exam and lab findings the decision to treat as an inpatient was made. The patient remained stable while under my care. The patient will be evaluated for further management. 2049: I discussed the patient's case with Dr. Esteves, from [facility]. 2100: Insulin Aspart Sliding Scale SC Medical Decision Differential Diagnosis includes but is not limited to dehydration, stroke, anemia, hypoglycemia, hyponatremia, hypernatremia, urinary tract infection, pneumonia, bronchitis, sepsis, gastroenteritis, additional abdominal pathology, metabolic abnormalities and infections. Patient is a 46-year-old male who was referred in by his primary care doctor. He is recently seen here admitted and discharged. Upon presentation he is found to be hyperglycemic with blood sugars greater than 600. Creatinine was elevated into the threes from 1.4 baseline. Sodium is 128. He also had a large transaminitis. Lactic acid was elevated at 2.9 as well. Patient was given 2 L normal saline. UA did have ketones present. There is no significant. I do believe that this most consistent with new-onset diabetes and acute dehydration. He was given a bolus of insulin and placed on insulin drip. Potassium was repleted. Patient was updated at bedside. Blood sugar and vitals were monitored closely. He was admitted to internal medicine for further workup. EKG was unchanged from his previous. Consults Time Called: 2047 Consulting Physician: Dr. Esteves, from [facility] Returned Call: 2049 I discussed the patient's case with Dr. Esteves, from [facility]. Impression Primary Impression: Hyperglycemia Additional Impressions: Transaminitis Lactic acidosis Critical Care I have personally spent greater than 35 minutes of critical care time in the direct management of this patient. This includes bedside care, interpretation of diagnostic studies, and testing, discussion with consultants, patient, and other required patient management activities. This 35 minutes is in excess of all separately billable procedures. Scribe Attestation The scribe's documentation has been prepared under my direction and personally reviewed by me in its entirety. I confirm that the note above accurately reflects all work, treatment, procedures, and medical decision making performed by me. Departure Information Dispostion Being Evaluated By Hospitalist Referrals Edgardo Azevedo D.O. (PCP) Patient Instructions My [facility] Problem Qualifiers
--- NOTE | 2017-03-04 20:01 | DIAGNOSTIC IMAGING REPORT ---
CHEST ONE VIEW PORTABLE HISTORY: Dizziness. Atypical chest pain. Fatigue. COMPARISON: Chest 02/24/2017. FINDINGS: The lungs are clear. Cardiac silhouette is normal in size. No pleural effusions. No pneumothorax. IMPRESSION: No acute process. Electronically signed by: Pete Lawson M.D. 03/04/2017 8:00 PM Dictated Date/Time: 03/04/2017 7:59 PM
[2017-03-04 20:05] LABS: BUN/CREATININE RATIO 6.4 (10-20); CALCIUM 9.9 mg/dl (8.5-10.1); MAGNESIUM 2.4 mg/dl (1.8-2.4); POTASSIUM 3.9 mmol/L (3.5-5.1)
[2017-03-04] MEDS ORDERED: POTASSIUM CHLORIDE 10 MEQ TABCR PO STA (20:12)
[2017-03-04] MEDS ORDERED: SODIUM CHLORIDE 0.9% 1000ML 2,000 ML IV STA (20:12)
[2017-03-04] MEDS ORDERED: INSULIN IV INFUSION PROTOCOL STA ×2 (20:13→21:50)
[2017-03-04 20:15] LABS: ISTAT CREATININE 2.4 mg/dl (0.6-1.3); ISTAT IONIZED CALCIUM 1.16 mmol/l (1.12-1.32)
[2017-03-04] MEDS ORDERED: MODERATE STRESS LEVEL ONE (20:15)
[2017-03-04 20:20] LABS: BETA-HYDROXYBUTYRATE 2.42 mg/dL (0.2-2.81)
[2017-03-04] MEDS ORDERED: INSULIN HUMAN REGULAR IV BOLUS 4 UNIT in SYRINGE 0 ML IV SCH (20:20)
[2017-03-04] MEDS ORDERED: MoRPHine SULFATE 4 MG/ML 1 ML CARP\\VIAL IV STA (20:27)
[2017-03-04] MEDS ORDERED: ONDANSETRON INJ 2 MG/ML 2 ML VIAL IV STA (20:27)
[2017-03-04] MEDS ORDERED: INSULIN REGULAR 250 UNITS in SODIUM CHLORIDE 0.9% 250ML 250 ML IV SCH (20:30)
[2017-03-04] MEDS ORDERED: INSULIN ASPART 100 UNITS/ML 3 ML PEN SC SCH (21:00)
[2017-03-04 21:52] VITALS: BMI 37.4
[2017-03-04] MEDS ORDERED: PHARMACY GLYCEMIC MGMT CONSULT PRN (21:58)
[2017-03-04] MEDS ORDERED: ONDANSETRON INJ 2 MG/ML 2 ML VIAL IV PRN (22:00)
[2017-03-04] MEDS ORDERED: HHS GOAL RANGE 250-350 mg/dl ONE (22:00)
[2017-03-04] MEDS ORDERED: PENDING 1/2NSS+20mEq KCL IVF SCH (22:00)
[2017-03-04] MEDS ORDERED: DC ALL PREVIOUSLY ORDERED DIABETES MEDS ONE (22:00)
[2017-03-04 22:08] LABS: VEN BLOOD GAS BASE EXCESS 4.7 mmol/L; VENOUS BLOOD GAS PCO2 56 mmHg (38.0-50.0); VENOUS BLOOD GAS PO2 28 mmHg
[2017-03-04 22:11] LABS: VEN BLD GAS O2 SATURATION < 60.0 %
[2017-03-04] MEDS ORDERED: FLUTICASONE PROPIONATE NA SPR 16 GM BTL NAE PRN (22:15)
--- NOTE | 2017-03-04 22:36 | History and Physical ---
History & Physical Date & Time of Service: March 04, 2017 at 22:00 Chief Complaint: Dizziness,Fatigue,Muscle And Chest Pain,High Sugar Primary Care Physician: Edgardo Azevedo D.O. History of Present Illness Source: patient This is a 46 yo m with known history of chronically elevated LFT and CK, four separate incidents of pulmonary emboli and recently diagnosed diabetes. The patient was admitted recently on February 24, 2017 for fever of unknown origin, BRIDGETTE and was diagnosed with DM. the patient was treated in house with lantus and ISS and also received a glucometer for ongoing monitoring on d/c. The patient had an HBA1C of 8.4% and was asymptomatic so decision was made to continue metformin. Since the patient's discharge he started to develop polyuria, polydipsia and actually lost 6 kg from the last admission. When asked if he was checking his sugars at home at all he stated he checked it " a couple times I think they were fine". He states he has been compliant with his metformin. He was asked to come to the ED for further evaluation because he had his hospital follow up along with lab results and the patient was found to have aPSG of > 700 and an AG of 10. He was asked to come to the ED for further evaluation. Patient was being treated for potential tick borne disease as a cause of his fever with doxycycline however the patient mentions the drug was not covered so he did not purchase the drug and has not taken it since d/c. Past Medical/Surgical History Medical Problems: (1) BRIDGETTE (acute kidney injury) Status: Resolved (2) Anxiety Status: Chronic (3) Blood clot in vein Status: Resolved (4) Chest pain Status: Resolved (5) Chest pain Status: Resolved (6) Chest wall pain Status: Resolved (7) CKD (chronic kidney disease), stage III Status: Chronic (8) Costochondritis Status: Chronic (9) Depression Status: Chronic (10) Elevated CK Status: Chronic (11) Elevated CK Status: Resolved (12) Elevated CPK Status: Resolved (13) Essential hypertension Status: Chronic (14) GERD (gastroesophageal reflux disease) Status: Chronic (15) Hemoptysis Status: Resolved (16) History of esophageal ulcer Permanent Comment: on EGD 06/23/2014 Status: Chronic (17) History of pleural effusion Status: Resolved (18) Hx of pulmonary embolus Status: Chronic (19) Hyperglycemia Status: Resolved (20) Hyperlipidemia Status: Chronic (21) Hypertension Status: Chronic (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 (23) Pharyngitis Status: Resolved (24) Pleuritic chest pain Status: Resolved (25) Prediabetes Status: Chronic (26) Substernal chest pain Status: Resolved (27) Suspected pulmonary embolism Status: Resolved Surgical Problems: (1) H/O colonoscopy Status: Chronic (2) H/O esophagogastroduodenoscopy Permanent Comment: [id number]- esophageal ulcer 06/24/2014- bleeding esophageal ulcer 08/29/2014- Grade B reflux esophagitis 11/21/2014- mild-moderate inflammation Status: Chronic (3) History of muscle biopsy Status: Chronic (4) History of rectal surgery Status: Chronic (5) S/P cardiac catheterization Permanent Comment: 2012- normal coronary arteries Status: Chronic Family History Blood clots FH: brain aneurysm MOTHER (mother, age 32) Social History Smoking Status: Never Smoker Smokeless Tobacco Use: No Alcohol Use: none Drug Use: none Marital Status: single Housing status: lives with family Occupational Status: disabled Immunizations History of Influenza Vaccine: Yes Influenza Vaccine Date: Jul 18, 2013 History of Tetanus Vaccine?: 2008 Tetanus Immunization Date: Aug 21, 2009 History of Pneumococcal: No History of Hepatitis B Vaccine: No Multi-Drug Resistant Organisms History of MDRO: No Allergies Coded Allergies: Iodine (Verified Allergy, Severe, THROAT SWELLING, 03/04/17) 02/18/13: patient denies IV contrast allergy Patient has been pre-treated in the past with methylprednisolone and diphenhydramine without incident following IV dye administration. Shellfish (Verified Allergy, Severe, THROAT SWELLING, 03/04/17) Iodinated Diagnostic Agents (Verified Allergy, Unknown, swelling, 03/04/17) Plasma, Human (Verified Allergy, Unknown, ANAPHYLAXIS, 03/04/17) Acetaminophen (Verified Adverse Reaction, Unknown, GI ISSUES, 03/04/17) Hydrocodone (Verified Adverse Reaction, Unknown, GI ISSUES, 03/04/17) Home Medications Scheduled Alprazolam (Xanax), 1 MG PO TID Escitalopram (Lexapro), 10 MG PO DAILY Escitalopram Oxalate (Lexapro), 20 MG PO DAILY Metformin Hcl (Glucophage), 500 MG PO DAILY Methylphenidate (Ritalin), 20 MG PO BID Metoprolol Succ (Toprol Xl) (Toprol-Xl ), 150 MG PO DAILY Rivaroxaban (Xarelto), 1 TAB PO DAILY Zolpidem Tartrate (Ambien), 10 MG PO HS Scheduled PRN Cyclobenzaprine Hcl (Flexeril), 10 MG PO TID PRN for Muscle Spasms Fluticasone Propionate (Nasal) (Flonase Allergy Relief), 2 SPRAYS WALDEMAR DAILY PRN for ALLERGIC REACTION Oxycodone HCl (Oxycodone HCl), 5 MG PO Q4 PRN for moderate pain Review of Systems Constitutional: No fever Eyes: No worsening of vision ENT: No hearing loss Respiratory: No cough, No dyspnea at rest, No dyspnea on exertion, No shortness of breath, No sputum, No wheezing Cardiovascular: No chest pain Abdomen: No constipation, No diarrhea, No nausea, No pain, No vomiting Musculoskeletal: + muscle pain (BL), No joint pain Genitourinary - Male: No dysuria, No hematuria Neurologic: + weakness, No balance problems, No numbness/tingling Endocrine: + fatigue Hematologic / Lymphatic: No abnormal bleeding/bruising Integumentary: No rash Physical Exam Vital Signs Date Time Temp Pulse Resp B/P Pulse Ox O2 Delivery O2 Flow Rate FiO2 03/04/17 21:38 92 03/04/17 20:14 99 18 114/56 94 Room Air 03/04/17 19:09 36.9 76 16 121/77 95 Room Air General Appearance: no apparent distress Head: normocephalic, atraumatic Eyes: normal inspection ENT: normal ENT inspection Neck: supple Respiratory/Chest: normal breath sounds, no respiratory distress, no accessory muscle use Cardiovascular: regular rate, rhythm, no murmur Abdomen/GI: normal bowel sounds, non tender, soft Back: normal inspection Extremities/Musculoskelatal: no calf tenderness, no pedal edema Neurologic/Psych: alert, normal mood/affect, oriented x 3 Skin: normal color, warm/dry, no rash Lymphatic: no adenopathy Diagnostics Laboratory Results Results Past 24 Hours Test 03/04/17 19:10 03/04/17 19:15 03/04/17 19:27 03/04/17 19:32 Range/Units Bedside Glucose > 600 70-99 mg/dl White Blood Count 6.66 4.8-10.8 K/uL Red Blood Count 5.19 4.7-6.1 M/uL Hemoglobin 15.3 14.0-18.0 g/dL Hematocrit 45.0 42-52 % Mean Corpuscular Volume 86.7 80-100 fL Mean Corpuscular Hemoglobin 29.5 25-34 pg Mean Corpuscular Hemoglobin Concent 34.0 32-36 g/dl Platelet Count 219 130-400 K/uL Mean Platelet Volume 13.2 7.4-10.4 fL Neutrophils (%) (Auto) 52.5 % Lymphocytes (%) (Auto) 38.4 % Monocytes (%) (Auto) 6.2 % Eosinophils (%) (Auto) 2.1 % Basophils (%) (Auto) 0.6 % Neutrophils # (Auto) 3.50 1.4-6.5 K/uL Lymphocytes # (Auto) 2.56 1.2-3.4 K/uL Monocytes # (Auto) 0.41 0.11-0.59 K/uL Eosinophils # (Auto) 0.14 0-0.5 K/uL Basophils # (Auto) 0.04 0-0.2 K/uL RDW Standard Deviation 40.0 36.4-46.3 fL RDW Coefficient of Variation 12.6 11.5-14.5 % Immature Granulocyte % (Auto) 0.2 % Immature Granulocyte # (Auto) 0.01 0.00-0.02 K/uL Sodium Level 128 136-145 mmol/L Potassium Level 3.9 3.5-5.1 mmol/L Chloride Level 87 98-107 mmol/L Carbon Dioxide Level 30 21-32 mmol/L Anion Gap 11.0 20.0 16-25 mmol/L Blood Urea Nitrogen 19 7-18 mg/dl Creatinine 3.00 0.60-1.40 mg/dl Est Creatinine Clear Calc Drug Dose 45.4 ml/min Estimated GFR () 28.0 Estimated GFR (Non- 24.1 BUN/Creatinine Ratio 6.4 10-20 Random Glucose 645 70-99 mg/dl Calcium Level 9.9 8.5-10.1 mg/dl Magnesium Level 2.4 1.8-2.4 mg/dl Total Bilirubin 0.8 0.2-1 mg/dl Direct Bilirubin 0.3 0-0.2 mg/dl Aspartate Amino Transf (AST/SGOT) 155 15-37 U/L Alanine Aminotransferase (ALT/SGPT) 316 12-78 U/L Alkaline Phosphatase 168 45-117 U/L Total Creatine Kinase 571 39-308 U/L Troponin I < 0.015 0-0.045 ng/ml Total Protein 9.6 6.4-8.2 gm/dl Albumin 4.3 3.4-5.0 gm/dl Lipase 282 73-393 U/L Beta-Hydroxybutyric Acid 2.42 0.2-2.81 mg/dL Bedside Lactic Acid Venous 2.94 0.90-1.70 mmol/L Bedside Hemoglobin 17.0 14.0-18.0 g/dl Bedside Hematocrit 50 42-52 % Bedside Sodium 128 135-144 mEq/L Bedside Potassium 4.0 3.3-5.0 mEq/L Bedside Chloride 86 101-112 mEq/L Bedside Total CO2 28 24-31 mEq/l Bedside Blood Urea Nitrogen 22 7-18 mg/dl Bedside Creatinine 2.4 0.6-1.3 mg/dl Bedside Glucose (other) 637 70-99 mg/dl Bedside Ionized Calcium (Howard) 1.16 1.12-1.32 mmol/l Test 03/04/17 21:43 Range/Units Diagnostic Radiology [~ rep ct add3]] CHEST ONE VIEW PORTABLE HISTORY: Dizziness. Atypical chest pain. Fatigue. COMPARISON: Chest 02/24/2017. FINDINGS: The lungs are clear. Cardiac silhouette is normal in size. No pleural effusions. No pneumothorax. IMPRESSION: No acute process. Impression Assessment and Plan This is a 46 yo m presenting with Hyperglycemia and a normal AG. His rapid onset of worsening DM is concerning as he has a long history of LFT elevations, myositis and this recent fever of unknown origin. Hyperglycemia in DMII not in DKA - insulin drip started - glycemic consult overnight - plan to switch to maintenance fluids of 1/2 NSS c 20 me q @ 250cc/h - BMP q 4 hr to monitor BSG - DM educator - hold metformin Fever of unknown origin - considering the rapid nature of onset and his chronic myositis and recent fever of unknown origin will get rheum consult for a second look at the patient for further evaluation - afebrile here - Anaplasmosis was negative - will hold doxy for now BRIDGETTE secondary to dehydration - IVF per hyperglycemia protocol - follow Cr Hyponatremia - corrected sodium is 137--> 1/2 NSS for IVF - follow with hyperglycemia labs Elevated LFT and CK - continue to follow levels - rheum consult as above - chronic pain from this, continue his home oxycodone and flexeril - PDMP was reviewed and no concerns were noted HTN - continue toprol History of pulmonary emboli - continue xarelto Anxiety -continue lexapro and ativan - hold ritalin for ADHD DVT Prophylaxis - on xarelto Resident Physician Supervision Note: I was present with resident during the history and exam. I discussed the case with the resident and agree with the findings and plan as documented in the note. Any exceptions or clarifications are listed here: 46 y/o M with constellation of issues including chronic CK elevation, CKD and recent DM - no unifying etiology Has been especially weak with muscle aches over the past week - presented to the ER where it was noted that his blood Glu was > 600 with acute on chronic RF - no anion gap was present OE AAO x 3 S1.2 R CTAB NT, ND BS+ no CCE P: Placed on insulin drip overnight Will be aggressively hydrated Requested endocrine consult as he has likely become insulin-dependent Pt should likely f/u at tertiary center upon D/C due to persistent issues without etiology Documented By: Pablo Esteves Level of Care Med/Surg Resuscitation Status FULL RESUSCITATION VTE Prophylaxis VTE Risk Assessment Done? Y/N: Yes Risk Level: Moderate Given or contraindicated: Other Anticoagulation Social Service Consult None Apply Note Total Time: Critical Care 30 - 74 minutes Additional Copies To Edgardo Azevedo D.O.
[2017-03-04] MEDS ORDERED: GLUCOSE 40% GEL 15 GM TUBE PO PRN (23:00)
[2017-03-04] MEDS ORDERED: GLUCOSE 10 TABS/TUBE PO PRN (23:00)
[2017-03-04] MEDS ORDERED: DEXTROSE 50% 50 ML SYR IV PRN (23:00)
[2017-03-04] MEDS ORDERED: GLUCAGON FOR INJ 1 MG VIAL SQ PRN (23:00)
[2017-03-04 23:23] LABS: URINE APPEARANCE CLEAR (CLEAR); URINE BILIRUBIN NEG (NEG); URINE COLOR YELLOW; URINE EPITHELIAL CELL AUTO 0-5 /lpf (0-5); URINE NITRITE NEG (NEG); URINE SPECIFIC GRAVITY 1.033 (1.000-1.030); UROBILINOGEN NEG (NEG); ZZUR CULT IF INDIC CLEAN CATCH NO
[2017-03-04] MEDS: INSULIN REGULAR 250 UNITS in SODIUM CHLORIDE 0.9% 250ML 250 ML IV SCH (23:23)
[2017-03-04 23:41] LABS: MANUAL MICROSCOPIC REQUIRED? NO; REVIEW REQ? NO
[2017-03-04 23:43] VITALS: BP 152/96; PULSE 97; TEMP 36.9; O2SAT 92
[2017-03-04] MEDS: OXYCODONE HCL IR 5 MG TAB (IMMEDIATE RELEASE) PO PRN (23:55)
[2017-03-04 23:56] LABS: BUN/CREATININE RATIO 8.2 (10-20); CREATININE 2.2 mg/dl (0.60-1.40); MAGNESIUM 2.4 mg/dl (1.8-2.4); PHOSPHORUS 3.7 mg/dl (2.5-4.9); POTASSIUM 3.8 mmol/L (3.5-5.1)
[2017-03-05 00:11] LABS: BETA-HYDROXYBUTYRATE 1.56 mg/dL (0.2-2.81)
[2017-03-05] MEDS ORDERED: ZOLPIDEM TARTRATE 10 MG TAB ONE (00:12)
[2017-03-05] MEDS: RIVAROXABAN 10 MG TAB PO SCH ×2 (00:33→17:09)
[2017-03-05] MEDS: INSULIN REGULAR 250 UNITS in SODIUM CHLORIDE 0.9% 250ML 250 ML IV SCH ×11 (01:02→17:38)
[2017-03-05] MEDS: SODIUM CHLOR 0.45% + 20MEQ KCL 1,000 ML IV SCH ×3 (02:15→14:21)
[2017-03-05 04:00] LABS: HEMATOCRIT 38.4 % (42-52); MEAN CELL VOLUME 87.9 fL (80-100); MEAN CORPUSCULAR HEMOGLOBIN 30.4 pg (25-34); MEAN CORPUSCULAR HGB CONC 34.6 g/dl (32-36); PLATELET COUNT 160 K/uL (130-400); RED BLOOD COUNT 4.37 M/uL (4.7-6.1); WHITE BLOOD COUNT 6.06 K/uL (4.8-10.8)
[2017-03-05] MEDS: OXYCODONE HCL IR 5 MG TAB (IMMEDIATE RELEASE) PO PRN ×5 (04:12→23:45)
[2017-03-05 04:26] LABS: BUN/CREATININE RATIO 9.9 (10-20); CALCIUM 8.4 mg/dl (8.5-10.1); CREATININE 1.9 mg/dl (0.60-1.40); MAGNESIUM 2.1 mg/dl (1.8-2.4); POTASSIUM 4.1 mmol/L (3.5-5.1)
[2017-03-05 04:27] LABS: PHOSPHORUS 3.8 mg/dl (2.5-4.9)
--- NOTE | 2017-03-05 07:07 | Family Medicine Progress Note ---
Progress Note Date of Service March 05, 2017. Subjective Pt evaluation today including: conversation w/ patient, physical exam, chart review, lab review The patient was seen and examined at bedside. Pt is complaining of pleuritic chest pain while taking a deep breath. Patient is eating and urinating well. Plan of care was described to the patient and all questions were answered. Objective Physical Exam General Appearance: WD/WN, + obese Respiratory/Chest: no respiratory distress, no accessory muscle use, + pertinent finding (anterior wheezing, non tender chest) Abdomen: normal bowel sounds, non tender, soft, no organomegaly, no pulsatile mass Extremities: normal range of motion, no pedal edema, + calf tenderness ( bilaterally) Neurologic/Psychiatric: no motor/sensory deficits, alert, normal mood/affect, oriented x 3 Assessment and Plan This is a 46 yo m presenting with Hyperglycemia and a normal AG. His rapid onset of worsening DM is concerning as he has a long history of LFT elevations, myositis and this recent fever of unknown origin. We are transitioning to SQ insulin. Hyperglycemia in DMII not in DKA - SQ insulin, Lantus 25units + carb coverage and ISS. - c/w 1/2 NSS c 20 me q @ 250cc/h - BMP q4 hr to monitor BSG - DM educator - hold metformin Fever of unknown origin - considering the rapid nature of onset and his chronic myositis and recent fever of unknown origin will get rheum consult for a second look at the patient for further evaluation - afebrile here - Anaplasmosis was negative - will hold doxy for now BRIDGETTE secondary to dehydration - IVF per hyperglycemia protocol - follow Cr Hyponatremia - Sodium is 147. - follow with hyperglycemia labs Elevated LFT and CK - continue to follow levels - rheum consult as above - chronic pain from this, continue his home oxycodone and flexeril - PDMP was reviewed and no concerns were noted HTN - continue toprol History of pulmonary emboli - continue Xarelto Anxiety -continue lexapro and ativan - hold ritalin for ADHD DVT Prophylaxis - on Xarelto Resident Involvement: Resident Care Provided Care Provided: Adult Hospital Medicine History Resident Physician Supervision Note: I was present with Dr. Rascon during the history and exam. I discussed the case with the resident and agree with the findings and plan as documented in the note. Any exceptions or clarifications are listed here. Pt seen and examined at bedside. MSK cramping pain well controlled w/ increased pain med regimen. 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 underlying rheum disease Transaminitis - hyperglycemia .v. underlying rheum dz - trend CMP in AM BRIDGETTE - improving w/ hydration Hyponatremia - improving HTN - continue toprol h/o PE - continue xarelto Anxiety - conitnue Lexapro, Ativan
[2017-03-05 07:36] VITALS: BP 105/72; PULSE 82; TEMP 36.6; O2SAT 91
[2017-03-05] MEDS: ESCITALOPRAM OXALATE 20 MG TAB PO SCH (07:40)
[2017-03-05] MEDS: ESCITALOPRAM OXALATE 10 MG TAB PO SCH (07:40)
[2017-03-05] MEDS: ALPRAZOLAM 0.5 MG TAB PO SCH ×3 (07:40→21:29)
[2017-03-05] MEDS: METOPROLOL SUCC 50MG EXT REL TAB PO SCH (07:41)
[2017-03-05] MEDS ORDERED: INSULIN ASPART 100 UNITS/ML 3 ML PEN SC SCH (09:00)
[2017-03-05 09:10] LABS: BUN/CREATININE RATIO 9.8 (10-20); CREATININE 1.8 mg/dl (0.60-1.40); POTASSIUM 3.6 mmol/L (3.5-5.1)
[2017-03-05 09:12] LABS: PHOSPHORUS 3.1 mg/dl (2.5-4.9)
[2017-03-05] MEDS ORDERED: INSULIN GLARGINE SOLOSTAR 100 UNITS/ML 3 ML PEN SC ONE (12:30)
[2017-03-05] MEDS: INSULIN ASPART 100 UNITS/ML 3 ML PEN SC SCH ×4 (12:54→23:43)
[2017-03-05 13:04] LABS: CALCIUM 8.4 mg/dl (8.5-10.1)
[2017-03-05 13:12] LABS: BUN/CREATININE RATIO 9.2 (10-20); CREATININE 1.7 mg/dl (0.60-1.40); MAGNESIUM 2.1 mg/dl (1.8-2.4); PHOSPHORUS 2.8 mg/dl (2.5-4.9); POTASSIUM 3.8 mmol/L (3.5-5.1)
[2017-03-05 13:51] VITALS: BMI 38.3
[2017-03-05 14:57] VITALS: BP 98/64; PULSE 76; TEMP 36.6; O2SAT 94
--- NOTE | 2017-03-05 14:57 | Pharmacy Progress Note ---
Glycemic Control Intl Consult Date of Service March 05, 2017. Scope Glycemic Pharmacist consulted by Dr Cheney on 03/04/17 for glycemic control and to write orders per [facility] inpatient glycemic control protocol Objective Weight (Kilograms): 135.200 Accuchecks BSG (last 24hrs): Test 03/04/17 19:10 03/04/17 19:15 03/04/17 21:50 03/04/17 23:04 Bedside Glucose > 600 mg/dl (70-99) 447 mg/dl (70-99) 364 mg/dl (70-99) Random Glucose 645 mg/dl (70-99) Test 03/04/17 23:25 03/04/17 23:59 03/05/17 01:00 03/05/17 02:14 Random Glucose 360 mg/dl (70-99) Bedside Glucose 334 mg/dl (70-99) 379 mg/dl (70-99) 360 mg/dl (70-99) Test 03/05/17 03:02 03/05/17 03:50 03/05/17 04:02 03/05/17 04:59 Bedside Glucose 287 mg/dl (70-99) 258 mg/dl (70-99) 247 mg/dl (70-99) Random Glucose 287 mg/dl (70-99) Test 03/05/17 07:02 03/05/17 08:12 03/05/17 08:37 03/05/17 09:16 Bedside Glucose 216 mg/dl (70-99) 222 mg/dl (70-99) 207 mg/dl (70-99) Random Glucose 204 mg/dl (70-99) Test 03/05/17 10:18 03/05/17 11:16 03/05/17 12:13 03/05/17 12:31 Bedside Glucose 247 mg/dl (70-99) 236 mg/dl (70-99) 202 mg/dl (70-99) Random Glucose 210 mg/dl (70-99) Test 03/05/17 13:17 Bedside Glucose 243 mg/dl (70-99) Laboratory Data (last 24hrs) Test 03/04/17 19:15 03/04/17 19:32 03/04/17 23:25 03/05/17 03:50 Anion Gap 11.0 mmol/L 20.0 mmol/L 11.0 mmol/L 5.0 mmol/L BUN/Creatinine Ratio 6.4 8.2 9.9 Blood Urea Nitrogen 19 mg/dl 18 mg/dl 19 mg/dl Creatinine 3.00 mg/dl 2.20 mg/dl 1.90 mg/dl Potassium Level 3.9 mmol/L 3.8 mmol/L 4.1 mmol/L Sodium Level 128 mmol/L 137 mmol/L 137 mmol/L White Blood Count 6.66 K/uL 6.06 K/uL Red Blood Count 5.19 M/uL Hemoglobin 15.3 g/dL Hematocrit 45.0 % Mean Corpuscular Volume 86.7 fL Mean Corpuscular Hemoglobin 29.5 pg Mean Corpuscular Hemoglobin Concent 34.0 g/dl Platelet Count 219 K/uL Mean Platelet Volume 13.2 fL Neutrophils (%) (Auto) 52.5 % Lymphocytes (%) (Auto) 38.4 % Monocytes (%) (Auto) 6.2 % Eosinophils (%) (Auto) 2.1 % Basophils (%) (Auto) 0.6 % Neutrophils # (Auto) 3.50 K/uL Lymphocytes # (Auto) 2.56 K/uL Monocytes # (Auto) 0.41 K/uL Eosinophils # (Auto) 0.14 K/uL Basophils # (Auto) 0.04 K/uL Test 03/05/17 08:37 03/05/17 12:31 Anion Gap 5.0 mmol/L 5.0 mmol/L BUN/Creatinine Ratio 9.8 9.2 Blood Urea Nitrogen 18 mg/dl 16 mg/dl Creatinine 1.80 mg/dl 1.70 mg/dl Potassium Level 3.6 mmol/L 3.8 mmol/L Sodium Level 133 mmol/L 134 mmol/L Recent Pertinent Medications Outpatient Anti-diabetic Regimen: * Metformin * A1c = 8.7 % 02/24/17 The patient is currently receiving: * IV regular insulin drip Risk Factors for Insulin Resistance: * Diet: AHA/T2DM/low NA Assessment & Plan ASSESSMENT: * ADA & AACE recommend a goal blood sugar range 140-180 mg/dl for the majority of critically ill & non-critically ill patients. * Pt is maintained on oral antidiabetic agents as an outpatient * Oral agents are not recommended for inpatient use d/t drug interactions, changing PO intake, and difficulty titrating for acute hyper/hypoglycemia. ADA recommends re-initiating outpatient oral agents 1-2 days prior to discharge if/ when appropriate if they were held on admission. * 46 year old T2DM admitted with severe hyperglycemia of unknown cause (not DKA or HHS) and fever of unknown origin with h/o myositis. He was placed on doxycycline as an outpatient for tick borne disease - anaplasmosis test is negative thus this medication is on hold. Patient was dehydrated on admission - Scr improving. * Patient initiated on IV insulin drip at time of admission. Current rate is 1.5 units per hour. Of note patient was ordered an oral diet while on the drip. * Patient's BSGs have improved and have ranged from 202 to 243 mg/dL thus far today. Discussed transitioning to SQ basal/bolus regimen with provider, who is in agreement. * Basal and bolus parameters will be based on weight and stress of 1-2 in an insulin naive patient * Continue goal range of 140 to 180 mg/dL PLAN FOR INPATIENT GLYCEMIC CONTROL: * Transition from IV insulin drip to SQ basal/bolus regimen * Overlap insulin drip for 6 hours, unless drip shuts its self off earlier * Basal insulin: * Lantus 25 units x1 at 1230 * Lantus 12-28 units SQ BID 12 units for BSG less than 140 mg/dL 20 units for BSG 140 - 180 mg/dL 28 units for BSG greater than 180 mg/dL * Bolus Insulin with NOVOLOG per scale ACHS * Goal Range: Low 140 mg/dL - High 180 mg/dL * Correction Factor: 15 mg/dL/unit * Nutritional / Prandial insulin per carb ratio of 1 unit per 6 grams CHO consumed * Overnight checks with coverage added for 00 and 04 -> Correction factor 20 mg /dL/unit * Holding outpatient metformin * Please note that the plan above was derived based on current level of insulin resistance and hospital stress. These recommendations are appropriate for inpatient admission only. Plan of care upon discharge will need to be reassessed to avoid potential outpatient hypo/hyperglycemia. Thank you.
[2017-03-05 16:00] VITALS: O2SAT 96
[2017-03-05 16:44] LABS: BUN/CREATININE RATIO 9.7 (10-20); CALCIUM 7.9 mg/dl (8.5-10.1); CREATININE 1.5 mg/dl (0.60-1.40); MAGNESIUM 2.1 mg/dl (1.8-2.4); POTASSIUM 3.8 mmol/L (3.5-5.1)
[2017-03-05 16:45] LABS: PHOSPHORUS 2.4 mg/dl (2.5-4.9)
[2017-03-05] MEDS ORDERED: OXYCODONE HCL IR 5 MG TAB (IMMEDIATE RELEASE) PO PRN (16:45)
[2017-03-05] MEDS ORDERED: OXYCODONE HCL IR 5 MG TAB (IMMEDIATE RELEASE) ONE (17:07)
[2017-03-05] MEDS ORDERED: [UNRECOGNIZED DRUG - REMARK] ONE (18:00)
[2017-03-05] MEDS: ZOLPIDEM TARTRATE 10 MG TAB PO SCH (21:29)
[2017-03-05] MEDS: INSULIN GLARGINE SOLOSTAR 100 UNITS/ML 3 ML PEN SC SCH (21:50)
[2017-03-05] MEDS ORDERED: INSULIN GLARGINE SOLOSTAR 100 UNITS/ML 3 ML PEN SC SCH (23:00)
[2017-03-06 00:12] VITALS: BP 112/76; PULSE 76; TEMP 36.8; O2SAT 91
[2017-03-06] MEDS: INSULIN ASPART 100 UNITS/ML 3 ML PEN SC SCH ×7 (04:01→23:57)
[2017-03-06 06:47] LABS: BUN/CREATININE RATIO 8.3 (10-20); CREATININE 1.4 mg/dl (0.60-1.40); MAGNESIUM 2.2 mg/dl (1.8-2.4); POTASSIUM 4.2 mmol/L (3.5-5.1)
[2017-03-06 06:48] LABS: PHOSPHORUS 2.2 mg/dl (2.5-4.9)
[2017-03-06 07:33] VITALS: BP 132/91; PULSE 77; TEMP 36.6; O2SAT 96
[2017-03-06] MEDS: ESCITALOPRAM OXALATE 20 MG TAB PO SCH (07:42)
[2017-03-06] MEDS: ESCITALOPRAM OXALATE 10 MG TAB PO SCH (07:42)
[2017-03-06] MEDS: OXYCODONE HCL IR 5 MG TAB (IMMEDIATE RELEASE) PO PRN ×3 (07:42→21:35)
[2017-03-06] MEDS: METOPROLOL SUCC 50MG EXT REL TAB PO SCH (07:42)
--- NOTE | 2017-03-06 07:42 | Family Medicine Progress Note ---
Progress Note Date of Service March 06, 2017. Subjective Pt evaluation today including: conversation w/ patient, physical exam, chart review, lab review The patient was seen and examined at bedside. Pt received 7.5mg of Oxycodone ( one dose) overnight. In the AM pt reports that his pain is hurting him. Rheumatology from [facility] saw the pt in the AM. Pt's sugars were in the 220- 260s overnight. Patient is resting in bed. Eating and urinating well. Plan of care was described to the patient and all questions were answered. Objective Physical Exam General Appearance: WD/WN, no apparent distress, + obese Respiratory/Chest: chest non-tender, lungs clear, normal breath sounds, no respiratory distress, no accessory muscle use Cardiovascular: regular rate, rhythm, no edema, no gallop, no JVD, no murmur Abdomen: normal bowel sounds, non tender, soft, no organomegaly, no pulsatile mass Extremities: + pertinent finding (legs are tender to palpation anteriorly and posteriorly (calves), pt has FROM in the upper and lower extremities, 5/5 muscle strengh bilaterally, chest non tender. ) Assessment and Plan This is a 46M presenting with Hyperglycemia and a normal AG. His rapid onset of worsening DM is concerning as he has a long history of LFT elevations, myositis and this recent fever of unknown origin. We are transitioning to SQ insulin. Hyperglycemia in DMII not in DKA - SQ insulin, Lantus 35units BID + carb ratio 4:1, goal range of 140-180, Correction factor of 20 units. - CMP in the AM. - DM educator Rising LFTs and CK - AST, ALT have approx double in 24 hours. CK is also rising. Will restart the IVF 1/2 NSS c 20 meq @ 150cc/h - According to uptodate in 2% of individuals Xarelto can cause Increased serum transaminases (>3 x ULN) " - continue to follow levels - chronic pain from this, continue his home oxycodone and flexeril - PDMP was reviewed and no concerns were noted - Consider GI consult. Fever of unknown origin - Afebrile during the entire admission. - considering the rapid nature of onset and his chronic myositis and recent fever of unknown origin will get rheum consult for a second look at the patient for further evaluation - Will obtain Anti Yaritza antibodies. - Anaplasmosis was negative - will hold doxycycline for now BRIDGETTE secondary to dehydration -Creatinine is improving, pt is eating and drinking well. Hyponatremia - Sodium is 137. - follow with hyperglycemia labs HTN - continue toprol History of pulmonary emboli - continue Xarelto Anxiety -continue lexapro and ativan - hold ritalin for ADHD DVT Prophylaxis - on Xarelto Resident Involvement: Resident Care Provided Care Provided: Adult Hospital Medicine History Resident Physician Supervision Note: I was present with Dr. Person during the history and exam. I discussed the case with the resident and agree with the findings and plan as documented in the note. Any exceptions or clarifications are listed here. Pt reports persistent improved aching/cramping of the muscles controlled with present pain medication. In regards to diabetes - was checking sugars regularly as outpatient, seen in the 200s following recent hospital discharge. Had made modifications to diet including avoidance of sweets, decreased some carbohydrate intake, though still eating a considerable amount of cereal qAM and bread etc in the afternoons. Adherent to metformin therapy 500mg daily. General Appearance: WD/WN, no apparent distress Respiratory: chest non-tender, lungs clear, normal breath sounds, no respiratory distress Cardiovascular: normal peripheral pulses, regular rate, rhythm, no edema, no murmur Gastrointestinal: normal bowel sounds, non tender, soft, no organomegaly Extremities: normal range of motion, normal inspection, other (TTP throughout the b/l LE) Assessment/Plan 46 y/o male h/o DMII, FUO presents complaining following hyperglycemia on outpatient labs Hyperglycemia w/ DMII - glycemic consult - on lantus BID at present w/ meal coverage and ISS CK elevation/FUO - rheumatology consulted, input appreciated - testing recommended as inpatient ordered Transaminitis - increase in AST/ALT noted this AM - will repeat abd US w/ doppler, though elevation could be from involvement of MSK component of complaint. No apparent toxicity or infective cause. BRIDGETTE - improving w/ hydration Hyponatremia - improving HTN - continue toprol h/o PE - continue xarelto Anxiety - conitnue Lexapro, Ativan
[2017-03-06] MEDS: ALPRAZOLAM 0.5 MG TAB PO SCH ×3 (07:43→21:25)
--- NOTE | 2017-03-06 08:00 | Rheumatology Consultation ---
Rheumatology Consultation Date of Consultation: March 06, 2017. Reason for Consultation: Myositis History of Present Illness Mr. Delaney is a pleasant 46 year old man admitted for abnormal labs and chest pain. He was hospitalized here last week for fevers and myalgias. Etiology of his fevers were not elucidated but he became afebrile and was discharged home. He saw his PCP on the day of admission and had labs drawn which showed a glucose of 761 thus he was advised to present to the emergency room. He does not have a history of diabetes. He is now on insulin therapy. His past medical history is significant for elevated CK for several years. 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 He would often have muscle pain with intense physical activity. He was noted to have elevated CK levels at the time. He was diagnosed with pulmonary embolism in 2008 and was treated with Coumadin for 6 months. He unfortunately suffered 2 more episodes of PE and is now on Xerleto. He informs me that he has undergone workup for his elevated muscle enzymes including having an EMG that was inconclusive and a muscle biopsy from his right upper thigh that was also inconclusive. I was not able to locate these reports in the [facility] website or [facility] system. He notes that he has seen several specialists regarding his persistently elevated CK levels and myalgias. He was actually seen by Dr. Fitzgerald in 2012 and per documentation and EMG/NCS at the time was normal. He was seen in consultation by Dr. Cotter in 2014 and his presentation was not suggestive of an inflammatory muscle disease. He also reports that he was seen at [place] and in [place] and no conclusive diagnosis regarding his elevated muscle enzymes were made. Currently, he has pain in his thighs and notes pain in his ankles. He has no joint swelling. He denies any recent travel or sick contacts. He has not noticed any rashes. Fevers last week are new as he notes that is not normally ill. No past history or family history of diabetes. Parents when he was young. He does have a sister who gets muscle pain with activity but is unsure if she has elevated CK levels. Past Medical/Surgical History Anxiety Depression Elevated CK levels Myalgias Pulmonary Embolism x 3 Chronic anticoagulation CKD PSH Muscle biopsy Social History Smoking Status: Never Smoker History of Alcohol Use: Yes (seldom (Beer)) Drug Use: none Marital Status: single Housing Status: lives with family Occupation Status: disabled Review of Systems Constitutional: + fever, + weakness, + weight loss Respiratory: No cough, No dyspnea on exertion, No shortness of breath Cardiac: + chest pain Abdomen: No diarrhea, No nausea, No pain, No vomiting Musculoskeletal: + joint pain, + muscle pain Endo: + fatigue Allergies Coded Allergies: Iodine (Verified Allergy, Severe, THROAT SWELLING, 03/04/17) 02/18/13: patient denies IV contrast allergy Patient has been pre-treated in the past with methylprednisolone and diphenhydramine without incident following IV dye administration. Shellfish (Verified Allergy, Severe, THROAT SWELLING, 03/04/17) Iodinated Diagnostic Agents (Verified Allergy, Unknown, swelling, 03/04/17) Plasma, Human (Verified Allergy, Unknown, ANAPHYLAXIS, 03/04/17) Acetaminophen (Verified Adverse Reaction, Unknown, GI ISSUES, 03/04/17) Hydrocodone (Verified Adverse Reaction, Unknown, GI ISSUES, 03/04/17) Medications Current Inpatient Medications Medications (Trade) Dose Ordered Sig/Roxie Route Start Time Stop Time Status Last Admin Dose Admin Miscellaneous Information (Consult Glycemic Management Pharmacy) 1 ea UD PRN N/A 03/04/17 21:58 04/03/17 21:57 Ondansetron HCl (Zofran Inj) 4 mg Q6H PRN IV 03/04/17 22:00 04/03/17 21:59 Alprazolam (Xanax Tab) 1 mg TID PO 03/05/17 08:00 04/04/17 08:59 03/05/17 21:29 1 MG Cyclobenzaprine HCl (Flexeril Tab) 10 mg TID PRN PO 03/04/17 22:15 04/03/17 22:14 Escitalopram Oxalate (Lexapro Tab) 10 mg DAILY PO 03/05/17 08:00 04/04/17 08:59 03/05/17 07:40 10 MG Escitalopram Oxalate (Lexapro Tab) 20 mg DAILY PO 03/05/17 08:00 04/04/17 08:59 03/05/17 07:40 20 MG Fluticasone Propionate (Flonase Nasal [place]) 2 sprays DAILY PRN [place]DEMAR 03/04/17 22:15 04/03/17 22:14 Metoprolol Succinate (Toprol Xl Tab) 150 mg DAILY PO 03/05/17 08:00 04/04/17 08:59 03/05/17 07:41 150 MG Rivaroxaban (Xarelto Tab) 20 mg QDD PO 03/04/17 23:00 04/03/17 22:59 03/05/17 17:09 20 MG Zolpidem Tartrate (Ambien Tab) 10 mg HS PO 03/05/17 21:00 04/04/17 20:59 03/05/17 21:29 10 MG Glucose (Glucose 40% Gel) 15-30 GRAMS 15 GRAMS... UD PRN PO 03/04/17 23:00 04/03/17 22:59 Glucose (Glucose Chew Tab) 4-8 Tablets 4 Tabl... UD PRN PO 03/04/17 23:00 04/03/17 22:59 Dextrose (Dextrose 50% 50ML Syringe) 25-50ML OF 50% DW IV FOR... UD PRN IV 03/04/17 23:00 04/03/17 22:59 Glucagon (Glucagon Inj) 1 mg UD PRN SQ 03/04/17 23:00 04/03/17 22:59 Insulin Aspart (novoLOG ASPART) SLIDING SCALE ACHS SC 03/05/17 11:30 04/04/17 11:29 03/05/17 21:51 12 UNITS Insulin Aspart (novoLOG ASPART) SLIDING SCALE 0000,0400 SC 03/06/17 00:00 04/05/17 00:00 03/06/17 04:01 4 UNITS Insulin Glargine (Lantus Solostar Pen) SEE PROTOCOL TEXT ... BID SC 03/05/17 21:00 04/04/17 20:59 03/05/17 21:50 28 UNIT Oxycodone HCl (Roxicodone Immediate Rel Tab) 7.5 mg Q4 PRN PO 03/05/17 20:00 03/19/17 19:59 03/05/17 23:45 7.5 MG Oxycodone HCl (Roxicodone Immediate Rel Tab) 5 mg Q6H PRN PO 03/05/17 16:45 03/19/17 16:44 Physical Exam Date Time Temp Pulse Resp B/P Pulse Ox O2 Delivery O2 Flow Rate FiO2 03/06/17 00:12 36.8 76 19 112/76 91 Room Air 03/06/17 00:01 Room Air 03/05/17 16:00 96 Room Air 03/05/17 14:57 36.6 76 18 98/64 94 Room Air 03/05/17 08:00 Room Air Eyes: bilateral eyes EOMI, bilateral eyes normal inspection ENT: normal ENT inspection, hearing grossly normal Neck: supple, no adenopathy Respiratory: chest non-tender, lungs clear, normal breath sounds, no respiratory distress Cardiovascular: regular rate, rhythm, no edema Abdomen: normal bowel sounds, non tender Neurologic/Psychiatric: alert, normal mood/affect, oriented x 3, + pertinent finding (4+/5 strength in bilateral hip flexors secondary to pain per patient) Laboratory Results Last 24 Hours Test 03/05/17 08:12 03/05/17 08:32 03/05/17 08:37 03/05/17 09:16 Bedside Glucose 222 mg/dl 207 mg/dl Venous Blood pH 7.36 Sodium Level 133 mmol/L Potassium Level 3.6 mmol/L Chloride Level 96 mmol/L Carbon Dioxide Level 32 mmol/L Anion Gap 5.0 mmol/L Blood Urea Nitrogen 18 mg/dl Creatinine 1.80 mg/dl Est Creatinine Clear Calc Drug Dose 76.6 ml/min Estimated GFR () 51.9 Estimated GFR (Non- 44.8 BUN/Creatinine Ratio 9.8 Random Glucose 204 mg/dl Calcium Level 9.0 mg/dl Phosphorus Level 3.1 mg/dl Magnesium Level 2.0 mg/dl Test 03/05/17 10:18 03/05/17 11:16 03/05/17 12:13 03/05/17 12:31 Bedside Glucose 247 mg/dl 236 mg/dl 202 mg/dl Venous Blood pH 7.34 Sodium Level 134 mmol/L Potassium Level 3.8 mmol/L Chloride Level 99 mmol/L Carbon Dioxide Level 30 mmol/L Anion Gap 5.0 mmol/L Blood Urea Nitrogen 16 mg/dl Creatinine 1.70 mg/dl Est Creatinine Clear Calc Drug Dose 81.1 ml/min Estimated GFR () 55.6 Estimated GFR (Non- 48.0 BUN/Creatinine Ratio 9.2 Random Glucose 210 mg/dl Calcium Level 8.4 mg/dl Phosphorus Level 2.8 mg/dl Magnesium Level 2.1 mg/dl Test 03/05/17 13:17 03/05/17 14:22 03/05/17 15:16 03/05/17 16:03 Bedside Glucose 243 mg/dl 256 mg/dl 269 mg/dl Venous Blood pH 7.35 Sodium Level 137 mmol/L Potassium Level 3.8 mmol/L Chloride Level 101 mmol/L Carbon Dioxide Level 29 mmol/L Anion Gap 7.0 mmol/L Blood Urea Nitrogen 15 mg/dl Creatinine 1.50 mg/dl Est Creatinine Clear Calc Drug Dose 91.9 ml/min Estimated GFR () 64.7 Estimated GFR (Non- 55.8 BUN/Creatinine Ratio 9.7 Random Glucose 241 mg/dl Calcium Level 7.9 mg/dl Phosphorus Level 2.4 mg/dl Magnesium Level 2.1 mg/dl Test 03/05/17 16:17 03/05/17 17:28 03/05/17 18:18 03/05/17 20:14 Bedside Glucose 234 mg/dl 245 mg/dl 256 mg/dl 224 mg/dl Test 03/05/17 23:39 03/06/17 03:56 03/06/17 05:43 Bedside Glucose 251 mg/dl 258 mg/dl Sodium Level 137 mmol/L Potassium Level 4.2 mmol/L Chloride Level 103 mmol/L Carbon Dioxide Level 30 mmol/L Anion Gap 4.0 mmol/L Blood Urea Nitrogen 12 mg/dl Creatinine 1.40 mg/dl Est Creatinine Clear Calc Drug Dose 98.5 ml/min Estimated GFR () 70.3 Estimated GFR (Non- 60.7 BUN/Creatinine Ratio 8.3 Random Glucose 249 mg/dl Calcium Level 8.0 mg/dl Phosphorus Level 2.2 mg/dl Magnesium Level 2.2 mg/dl CK 571, XUD057, ALT 316, alk phos 168 past LDH 316, TSH 1.58 hepatitis A, B, C testing were negative HIV negative RPR negative Monospot negative Anaplasmosis negative Immune serologies: [place] neg ANCA neg APS labs neg ESR 8 Complements normal Assessment & Plan Assessment & Plan: 46 year old man with longstanding history of elevated CK levels and abnormal LFTs. Imaging did show fatty liver disease. Past evaluation for inflammatory muscle disease has been "inconclusive" per patient but review of his medical records show that his test results were reportedly normal. His exam today notable for hip flexor weakness in the setting of chronic muscle pain. New development of diabetes mellitus requiring insulin. It is unclear if this is related to his persistently elevated CK. He may benefit from repeat testing to elucidate the cause of his hyperCKemia. It could be metabolic in origin instead of autoimmune. First line treatment of inflammatory myopathies is corticosteroids which I do not believe are necessary at this time. Recommendations 1. Please trend CK, AST, ALT levels 2. Check Yaritza+ Myositis panel 3. Further work up which will include EMG, MRI of the thigh with STIR sequence, and possible muscle biopsy can be done as an outpatient. 4. Diabetes treatment per primary team 5. Will have patient follow-up with me in clinic on March 25 at the [facility] in [facility] either at 8 am or at 12:30 pm. Thank you for allowing rheumatology to participate in the care of this patient.
[2017-03-06] MEDS: CYCLOBENZAPRINE HCL 10 MG TAB PO PRN (08:35)
[2017-03-06] MEDS: INSULIN GLARGINE SOLOSTAR 100 UNITS/ML 3 ML PEN SC SCH ×2 (08:39→21:29)
[2017-03-06 10:52] LABS: ALKALINE PHOSPHATASE 117 U/L (45-117); ALT/SGPT 622 U/L (12-78); AST/SGOT 828 U/L (15-37)
--- NOTE | 2017-03-06 11:41 | Pharmacy Progress Note ---
Glycemic Control: Progress Nt Date of Service March 06, 2017. Scope Glycemic Pharmacist consulted by Dr Cheney on 03/04/17 for glycemic control and to write orders per [facility] inpatient glycemic control protocol. Objective Accuchecks BSG (last 24hrs): Test 03/05/17 12:13 03/05/17 12:31 03/05/17 13:17 03/05/17 14:22 Bedside Glucose 202 mg/dl (70-99) 243 mg/dl (70-99) 256 mg/dl (70-99) Random Glucose 210 mg/dl (70-99) Test 03/05/17 15:16 03/05/17 16:03 03/05/17 16:17 03/05/17 17:28 Bedside Glucose 269 mg/dl (70-99) 234 mg/dl (70-99) 245 mg/dl (70-99) Random Glucose 241 mg/dl (70-99) Test 03/05/17 18:18 03/05/17 20:14 03/05/17 23:39 03/06/17 03:56 Bedside Glucose 256 mg/dl (70-99) 224 mg/dl (70-99) 251 mg/dl (70-99) 258 mg/dl (70-99) Test 03/06/17 05:43 03/06/17 07:41 Random Glucose 249 mg/dl (70-99) Bedside Glucose 233 mg/dl (70-99) Laboratory Data (last 24hrs) Test 03/05/17 12:31 03/05/17 16:03 03/06/17 05:43 Anion Gap 5.0 mmol/L 7.0 mmol/L 4.0 mmol/L BUN/Creatinine Ratio 9.2 9.7 8.3 Blood Urea Nitrogen 16 mg/dl 15 mg/dl 12 mg/dl Creatinine 1.70 mg/dl 1.50 mg/dl 1.40 mg/dl Potassium Level 3.8 mmol/L 3.8 mmol/L 4.2 mmol/L Sodium Level 134 mmol/L 137 mmol/L 137 mmol/L Recent Pertinent Medications Outpatient Anti-diabetic Regimen: * Metformin * A1c = 8.7 % 02/24/17 The patient is currently receiving: * IV regular insulin drip Risk Factors for Insulin Resistance: * Diet: AHA/T2DM/low NA Assessment & Plan ASSESSMENT: * ADA & AACE recommend a goal blood sugar range 140-180 mg/dl for the majority of critically ill & non-critically ill patients. * Pt is maintained on oral antidiabetic agents as an outpatient * Oral agents are not recommended for inpatient use d/t drug interactions, changing PO intake, and difficulty titrating for acute hyper/hypoglycemia. ADA recommends re-initiating outpatient oral agents 1-2 days prior to discharge if/ when appropriate if they were held on admission. * 46 year old T2DM admitted with severe hyperglycemia of unknown cause (not DKA or HHS) and fever of unknown origin with h/o myositis. He was placed on doxycycline as an outpatient for tick borne disease - anaplasmosis test is negative thus this medication is on hold. Patient was dehydrated on admission - Scr improving. * Patient initiated on IV insulin drip at time of admission. He was transitioned to basal/bolus insulin regimen (based on wt and stress of 2) yesterday afternoon and remains hyperglycemic. Blood sugars have ranged from 202 to 258 mg/dL over that past 24 hours. * Continue to titrate basal insulin - will keep patient on Lantus scale until insulin needs are better known * Further titrate bolus insulin parameters to wt/stress 3 (this will likely need to be loosened once BSGs are in range) PLAN FOR INPATIENT GLYCEMIC CONTROL: * Basal insulin with Lantus * Lantus 35 units SQ qam * Lantus pm dose based on scale 25 units for BSG less than 160 mg/dL 35 units for BSG 160 mg/dL or greater * Bolus Insulin with NOVOLOG per scale ACHS * Goal Range: Low 140 mg/dL - High 180 mg/dL * Correction Factor: 10 mg/dL/unit * Nutritional / Prandial insulin per carb ratio of 1 unit per 4 grams CHO consumed * Overnight checks with coverage added for 00 and 04 -> Correction factor 15 mg /dL/unit * Holding outpatient metformin - will resume 1-2 days prior to discharge * Please note that the plan above was derived based on current level of insulin resistance and hospital stress. These recommendations are appropriate for inpatient admission only. Plan of care upon discharge will need to be reassessed to avoid potential outpatient hypo/hyperglycemia. Thank you.
[2017-03-06 13:53] VITALS: BMI 38.3
[2017-03-06] MEDS ORDERED: POLYETHYLENE (MIRALAX) 17 GM PACK PO PRN (14:45)
[2017-03-06 15:07] VITALS: BP 120/72; PULSE 70; TEMP 36.6; O2SAT 97
[2017-03-06] MEDS: SODIUM CHLOR 0.45% + 20MEQ KCL 1,000 ML IV SCH ×2 (15:42→21:32)
[2017-03-06] MEDS: RIVAROXABAN 10 MG TAB PO SCH (17:31)
--- NOTE | 2017-03-06 18:55 | DIAGNOSTIC IMAGING REPORT ---
ABDOMINAL ULTRASOUND, RIGHT UPPER QUADRANT HISTORY: Nausea. Vomiting. rising LFTs, new onset DM2, check liver, pancreas and GB. COMPARISON: None. FINDINGS: Pancreas: The pancreas demonstrates a normal echotexture. Liver: Fatty infiltration Gallbladder: No gallbladder wall thickening. No gallstones. CBD: 5 mm Right kidney: No hydronephrosis. IMPRESSION: Fatty infiltration of the liver. Otherwise negative study Electronically signed by: Michael Cabrera M.D. 03/06/2017 6:54 PM Dictated Date/Time: 03/06/2017 6:53 PM
--- NOTE | 2017-03-06 18:56 | DIAGNOSTIC IMAGING REPORT ---
Abdominal Doppler DUPLEX PORTAL HEPATIC VEINS CLINICAL HISTORY: rising LFTs, new onset diabetes, r/o mass, pancreas, liver, GB pain. Nausea. TECHNIQUE: Doppler COMPARISON STUDY: None FINDINGS: Venous flow is antegrade and normal within the portal and hepatic venous structures. No evidence for vascular occlusion. No evidence for thrombus formation. IMPRESSION: Normal study. Electronically signed by: Michael Cabrera M.D. 03/06/2017 6:55 PM Dictated Date/Time: 03/06/2017 6:54 PM
[2017-03-06] MEDS: ZOLPIDEM TARTRATE 10 MG TAB PO SCH (21:25)
[2017-03-06 22:58] VITALS: BP 107/69; PULSE 72; TEMP 36.8; O2SAT 95
[2017-03-07] MEDS: SODIUM CHLOR 0.45% + 20MEQ KCL 1,000 ML IV SCH ×2 (04:16→11:00)
[2017-03-07] MEDS: INSULIN ASPART 100 UNITS/ML 3 ML PEN SC SCH ×3 (04:25→12:52)
[2017-03-07 06:17] LABS: HEMATOCRIT 39.1 % (42-52); MEAN CELL VOLUME 89.5 fL (80-100); MEAN CORPUSCULAR HGB CONC 33.5 g/dl (32-36); PLATELET COUNT 154 K/uL (130-400); RED BLOOD COUNT 4.37 M/uL (4.7-6.1); WHITE BLOOD COUNT 4.75 K/uL (4.8-10.8)
[2017-03-07 06:54] LABS: BUN/CREATININE RATIO 5.3 (10-20); CALCIUM 8.2 mg/dl (8.5-10.1); CREATININE 1.6 mg/dl (0.60-1.40); MAGNESIUM 2.2 mg/dl (1.8-2.4)
[2017-03-07 07:14] LABS: ESTIMATED AVERAGE GLUCOSE 246 mg/dl; HA1C FLAG Normal (Normal)
[2017-03-07 07:29] LABS: ALB/GLOB RATIO 0.7 (0.9-2); PHOSPHORUS 1.7 mg/dl (2.5-4.9)
[2017-03-07 07:44] VITALS: BP 137/83; PULSE 74; TEMP 36.6; O2SAT 92
[2017-03-07] MEDS ORDERED: INSULIN GLARGINE SOLOSTAR 100 UNITS/ML 3 ML PEN SC SCH ×2 (08:00→12:00)
--- NOTE | 2017-03-07 08:08 | Family Medicine Progress Note ---
Progress Note Date of Service March 07, 2017. Subjective Pt evaluation today including: conversation w/ patient, physical exam, chart review, lab review The patient was seen and examined at bedside. Pt is reporting that his diffuse muscle and body pain is well controlled. Pt verbalizes that he understand how to administer insulin and the insulin regime he should be taking. Eating and urinating well. Plan of care was described to the patient and all questions were answered. Abdominal Doppler DUPLEX PORTAL HEPATIC VEINS FINDINGS: Venous flow is antegrade and normal within the portal and hepatic venous structures. No evidence for vascular occlusion. No evidence for thrombus formation. IMPRESSION: Normal study. Liver, GB and Pancreatic US. FINDINGS: Pancreas: The pancreas demonstrates a normal echotexture. Liver: Fatty infiltration Gallbladder: No gallbladder wall thickening. No gallstones. CBD: 5 mm Right kidney: No hydronephrosis. IMPRESSION: Fatty infiltration of the liver. Otherwise negative study Objective Physical Exam General Appearance: WD/WN, no apparent distress, + obese, + pertinent finding ( exam grossly unchanged from previous day) Respiratory/Chest: chest non-tender, lungs clear, normal breath sounds, no respiratory distress, no accessory muscle use Cardiovascular: regular rate, rhythm, no edema, no gallop, no JVD, no murmur Abdomen: normal bowel sounds, non tender, soft, no organomegaly, no pulsatile mass Extremities: non-tender, normal inspection, no calf tenderness, + pertinent finding (diffuse extremity tenderness, unchanged from previous day) Neurologic/Psychiatric: alert, normal mood/affect, oriented x 3 Assessment and Plan This is a 46M presenting with Hyperglycemia and a normal AG. His rapid onset of worsening DM is concerning as he has a long history of LFT elevations, myositis and this recent fever of unknown origin. We are transitioning to SQ insulin. Hyperglycemia in DMII not in DKA - Discharge on Lantus 50 units daily and 15 Novolog with meals. Rising LFTs and CK - AST, ALT and CK are stable. - continue to follow levels - chronic pain from this, continue his home oxycodone and flexeril - PDMP was reviewed and no concerns were noted - Will obtain Anti Yaritza antibodies. - Anaplasmosis was negative - [facility] rheumatology follow up in 2.5 weeks in [place]. BRIDGETTE secondary to dehydration -Creatinine is improving, pt is eating and drinking well. Hyponatremia - Sodium is 137. - follow with hyperglycemia labs HTN - continue toprol History of pulmonary emboli - continue Xarelto Anxiety -continue lexapro and ativan - hold ritalin for ADHD DVT Prophylaxis - on Xarelto Resident Involvement: Resident Care Provided Care Provided: Adult Hospital Medicine History Resident Physician Supervision Note: I was present with Dr. Person during the history and exam. I discussed the case with the resident and agree with the findings and plan as documented in the note. Any exceptions or clarifications are listed here. Aching muscular pain persists diffusely but is controlled on present pain medication regimen. Hydrating well by mouth, no issues with urination. Reviewed glucose control regimen and sugar tracking with resident in room and expresses understanding. Encourage close follow up and review of red flag sx. General Appearance: WD/WN, no apparent distress Respiratory: chest non-tender, lungs clear, normal breath sounds, no respiratory distress Cardiovascular: normal peripheral pulses, regular rate, rhythm, no edema, no gallop, no murmur Gastrointestinal: normal bowel sounds, non tender, soft, no organomegaly Assessment/Plan 46 y/o male h/o DMII, FUO presents complaining following hyperglycemia on outpatient labs Hyperglycemia w/ DMII - lantus and aspart regimen w/ qAC and qAM sugar logging and close follow up with primary care CK elevation/FUO - rheumatology will follow in 2 wks after lab results return from inpatient stay - pain control w/ percocet and flexeril Transaminitis - remains elevated, though improved compared to last admit, would repeat as outpatient Elevated creatinine - persistent in the setting of elevated CK, encouraged hydration and close monitoring of BMP as outpatient HTN - continue toprol h/o PE - continue xarelto Anxiety - conitnue Lexapro
[2017-03-07] MEDS: ESCITALOPRAM OXALATE 10 MG TAB PO SCH (09:05)
[2017-03-07] MEDS: ESCITALOPRAM OXALATE 20 MG TAB PO SCH (09:05)
[2017-03-07] MEDS: METOPROLOL SUCC 50MG EXT REL TAB PO SCH (09:05)
[2017-03-07] MEDS: OXYCODONE HCL IR 5 MG TAB (IMMEDIATE RELEASE) PO PRN ×2 (09:14→13:22)
[2017-03-07] MEDS: ALPRAZOLAM 0.5 MG TAB PO SCH ×2 (09:15→14:12)
--- NOTE | 2017-03-07 09:58 | Pharmacy Progress Note ---
Glycemic Control: Progress Nt Date of Service March 07, 2017. Scope Glycemic Pharmacist consulted by Dr Cheney on 03/04/17 for glycemic control and to write orders per [facility] inpatient glycemic control protocol. Objective Accuchecks BSG (last 24hrs): Test 03/06/17 11:38 03/06/17 16:30 03/06/17 20:20 03/06/17 23:54 Bedside Glucose 206 mg/dl (70-99) 151 mg/dl (70-99) 153 mg/dl (70-99) 122 mg/dl (70-99) Test 03/07/17 04:20 03/07/17 06:03 03/07/17 07:25 Bedside Glucose 261 mg/dl (70-99) 246 mg/dl (70-99) Random Glucose 263 mg/dl (70-99) Laboratory Data (last 24hrs) Test 03/07/17 06:03 Anion Gap 3.0 mmol/L BUN/Creatinine Ratio 5.3 Blood Urea Nitrogen 9 mg/dl Creatinine 1.60 mg/dl Hemoglobin A1c 10.2 % Potassium Level 4.0 mmol/L Sodium Level 139 mmol/L White Blood Count 4.75 K/uL HbA1c: Test 03/07/17 06:03 Hemoglobin A1c 10.2 % (4.5-5.6) H Recent Pertinent Medications Outpatient Anti-diabetic Regimen: * Metformin 500mg daily (new Rx just started after 02/27/17 admission discharge) The patient is currently receiving: * Basal insulin: Lantus 35 units every 12 hours * Correctional Insulin: Novolog Correction per scale ACHS Goal Range: Low 140 mg/dL - High 180 mg/dL Correction Factor: 10 mg/dL/unit * Prandial insulin: Per carb ratio of 1 unit per 4 grams CHO consumed * Oral Agents: Metformin on hold for [place] and per ADA guidelines * Oral agents are not recommended for inpatient use d/t drug interactions, changing PO intake, and difficulty titrating for acute hyper/hypoglycemia. ADA recommends re-initiating outpatient oral agents 1-2 days prior to discharge if/ when appropriate if they were held on admission. Risk Factors for Insulin Resistance: * ?Infection? * Baseline poor control Assessment & Plan ASSESSMENT: Initial: * 46yo newly diagnosed T2DM male initiated on metformin for A1c 8.7% from recent admission 02/24-02/27 * Pt readmitted 03/04/17 secondary to severe hyperglycemia. * Pt initiated on IV insulin infusion on admission * Pt transitioned to SQ basal bolus insulin regimen based on gtt rates and weight based insulin dosing * A1c now 10.2% (most likely secondary to significantly elevated BSGs over the past week or so). Regardless, Patient will need combination injectable therapy as A1c > 10% 03/07: * Pt has been requiring ~ 123 units of insulin over the past 24hrs with near adequate control * 60 units of basal insulin * 63 units of prandial/correctional insulin * BSGs ranging 122 - 261 over the past 24hrs * Changes needed for the next 24hrs to improve glycemic control: * AM Fasting BSG = 246mg/dl therefore Basal insulin needs increased * BSGs trending downwards throughout the day but are not low. No changes needed to CF/CR PLAN FOR INPATIENT GLYCEMIC CONTROL: * Metformin * Continue to hold for now. Will d/w provider re: resuming metformin at discharge based on renal function. * The FDA has updated its recommendations for using metformin with renal impairment. OK to start metformin with eGFR is > 45ml/min. * Additional caution is required in patients with anticipated significant fluctuations in renal status or those at risk for abrupt deterioration in kidney function, based on previous history, other comorbidities, albuminuria, and medication regimen * Metformin is the cornerstone of therapy along with healthy eating, weight control, increased physical activity, and diabetes education. Recommend continuing at discharge and titrating dosing upwards as tolerated. * Basal insulin * Slightly increasing dosing and change to once daily dosing for to minimize number of injections * Lantus 35 units SQ BID --> Will convert to Lantus 50 units SQ daily for outpatient. Empirically reducing dosing for outpatient since metformin may be restarted. * Bolus Insulin * NovoLog per scale ACHS or Q6hrs while NPO * LOWER Goal Range: Low 110 mg/dL - High 140 mg/dL. More stringent goal range based on age, minimal co-morbidities, and new diagnosis. * Correction Factor: 10 mg/dL/unit * Nutritional / Prandial insulin per carb ratio of 1 unit per 4 grams CHO consumed RECOMMENDATIONS FOR DISCHARGE: * A1c is greater than or equal to 10% --> per ADA guidelines, recommend: metformin + combination injectable therapy (basal insulin + rapid acting insulin OR GLP1-RA) * Discussed discharge planning with rcp. Pt agreeable to multiple daily insulin injections. Pt feels very poorly with high BSGs and is motivated to control hyperglycemia. * Pt has been administering own insulin injections in house for practice * DM educator consulted pt insurance ([employer]) --> $0 copay for Lantus & NovoLog Recommend: * Resuming Metformin but change to the XR version, 500mg PO daily with evening meal. * Typically the XR version of metformin is better tolerated {less GI side effects} and still low co-pay. Pt to work with PCP to continue to titrate metformin dosing upwards as recommended. Dosage increases should be made in increments of 500 mg weekly, up to 2,000 mg/day PO, given in divided doses. Doses above 2000 mg/day may be better tolerated if divided and given 3 times per day with meals. Max: 2,550 mg/day PO, in divided doses * Lantus 50 units SQ Daily in the morning * Dose will be given today prior to discharge. Pt to start this dosing 03/08/17 AM * Test blood sugar immediately upon waking up in the morning while fasting. If blood sugar is below 80mg/dl, give Lantus 25 units instead of 50 units. * Work with PCP to continue to titrate Lantus dosing for a goal fasting BSG of 80-130mg/dl * NovoLog 15 units SQ with meals * Do not administer this dose if a meal is skipped!!! * Check blood sugar before meals. Goal blood sugar before meals is 80-130mg/ dl. * May administer smaller dose of 8 units if smaller meal is consumed or carbohydrate content is very low. * May consider administering additional NovoLog for per-meal BSG above 130mg/ dl patient may want to start this after he adjusts to basal + prandial insulin Blood Sugar 131-180 Give additional 2 units of NovoLog Blood Sugar 181-240 Give additional 4 units of NovoLog Blood Sugar 241-300 Give additional 6 units of NovoLog Blood Sugar 301-350 Give additional 8 units of NovoLog Blood Sugar 351-400 Give additional 10 units of NovoLog Blood Sugar above 400 Give additional 12 units of NovoLog * Work with PCP to continue to titrate NovoLog dosing for a goal port-prandial glucose of less than 180mg/dl * Rx Needed: * Metformin XR 500mg PO daily with dinner * Lantus 50 units SQ daily in the morning (25 units if Blood sugar is below 80mg/dl) * NovoLog 15 units SQ three times daily with meals (8 units if only consuming a snack or carbohydrate content is low) * Insulin Pen [place] * One Touch Verio test strips to monitor BSG ACHS * Delica Lancets * Please note that the plan above was derived based on current level of insulin resistance and hospital stress. These recommendations are appropriate for inpatient admission only. Plan of care upon discharge will need to be reassessed to avoid potential outpatient hypo/hyperglycemia. Thank you.
[2017-03-07 11:22] VITALS: Ht 188 cm; Wt 135.2 kg
[2017-03-07] MEDS: CYCLOBENZAPRINE HCL 10 MG TAB PO PRN (13:22)
--- NOTE | 2017-03-07 13:50 | Discharge Instructions ---
Discharge Instructions Date of Service March 07, 2017. Admission Reason for Admission: Franki, Hyperglycemia Discharge Discharge Diagnosis / Problem: Hyperglycemia, Elevated CK, Elevated Liver Enzymes Discharge Goals Goal(s): Decrease discomfort, Improve function Activity Recommendations Activity Limitations: resume your previous activity . Instructions / Follow-Up Instructions / Follow-Up Follow up with your Events Specialist (Dr. Charlette Pérez) on March 25 at the [facility] in [place] either at 8 am or at 12:30 pm. Please call 2-3 days before your visit to confirm your appointment. Please continue to take your insulin and metformin as prescribed. These are your medications to treat your diabetes. We have shown you how to inject insulin, check your blood sugars and record the values in a daily log, and how to count carbohydrates. Please continue to do this . Please keep your PCP follow up appointment on March 15. We have prescribed some pain medications for you to take for your chronic muscle pains. Remember to drink a lot of water and stay well hydrated. Please continue to take your regular home medications, including Xarelto for your blood clots. Diabetes Instructions (brief) Test blood sugar immediately upon waking up in the morning while fasting. If blood sugar is below 80mg/dl, give Lantus 25 units instead of 50 units. Work with Primary Care Provider to continue to titrate Lantus dosing for a goal fasting BSG of 80-130mg/dl Use NovoLog 15 units injection with meals - Do not administer this dose if a meal is skipped!!! Check blood sugar before meals. Goal blood sugar before meals is 80-130mg/dl. May administer smaller dose of 8 units if smaller meal is consumed or carbohydrate content is very low. May consider administering additional NovoLog for per-meal BSG above 130mg/dl This is a recommended sliding scale based on your blood sugar level before meals. Blood Sugar 131-180 Give additional 2 units of NovoLog Blood Sugar 181-240 Give additional 4 units of NovoLog Blood Sugar 241-300 Give additional 6 units of NovoLog Blood Sugar 301-350 Give additional 8 units of NovoLog Blood Sugar 351-400 Give additional 10 units of NovoLog Blood Sugar above 400 Give additional 12 units of NovoLog Work with PCP to continue to titrate NovoLog dosing for a goal port-prandial glucose of less than 180mg/dl Current Hospital Diet Patient's current hospital diet: Diabetes Type 2 Diet, AHA Diet (Heart Healthy) , Low Sodium Diet (2gm Na) Discharge Diet Recommended Diet: Diabetes Type 2 Diet Pending Studies Studies pending at discharge: no Laboratory Results Hemoglobin A1c Test 03/07/17 06:03 Range/Units Estimated Average Glucose 246 mg/dl Hemoglobin A1c 10.2 H 4.5-5.6 % Lipid Panel Test 02/24/17 05:18 Range/Units Triglycerides Level 336 H 0-150 mg/dl Cholesterol Level 187 0-200 mg/dl HDL Cholesterol 29 mg/dl Cholesterol/HDL Ratio 6.4 LDL Cholesterol, Calculated 91 mg/dl Medical Emergencies . Who to Call and When: Medical Emergencies: If at any time you feel your situation is an emergency, please call 911 immediately. . Non-Emergent Contact Non-Emergency issues call your: Primary Care Provider, Specialist ( Events Specialist) . . "Provider Documentation" section prepared by Michael Person. . VTE Core Measure Inpt VTE Proph given/why not?: Other Anticoagulation Resident Involvement: Resident Care Provided Care Provided: Adult Hospital Medicine
[2017-03-07] MEDS ORDERED: NVLGIPEN SC (15:02)
[2017-03-07] MEDS ORDERED: INSDGIPEN SC (15:02)
[2017-03-07] MEDS ORDERED: FSTTS (15:13)
[2017-03-07] MEDS ORDERED: LANC-393 (15:13)
[2017-03-07] MEDS ORDERED: INSU32MI13 (15:13)
[2017-03-07] MEDS ORDERED: METFTAB PO (15:14)
[2017-03-07] MEDS ORDERED: OXYC1TAB3 PO (15:18)
[2017-03-07 15:39] VITALS: BP 137/83; PULSE 74; TEMP 36.6; O2SAT 92
--- NOTE | 2017-03-07 21:12 | Discharge Summary ---
Discharge Summary Date of Service March 07, 2017. Discharge Summary Admission Date: March 04, 2017 at 21:55 Discharge Date: March 07, 2017 Discharge Disposition: Home Principal Diagnosis: Hyperglycemia Problems/Secondary Diagnoses: (1) Anxiety Status: Chronic (2) CKD (chronic kidney disease), stage III Status: Chronic (3) Costochondritis Status: Chronic (4) Depression Status: Chronic (5) Elevated CK Status: Chronic (6) Essential hypertension Status: Chronic (7) GERD (gastroesophageal reflux disease) Status: Chronic (8) H/O colonoscopy Status: Chronic (9) H/O esophagogastroduodenoscopy Status: Chronic (10) History of esophageal ulcer Status: Chronic (11) History of muscle biopsy Status: Chronic (12) History of rectal surgery Status: Chronic (13) Hx of pulmonary embolus Status: Chronic (14) Hyperlipidemia Status: Chronic (15) Hypertension Status: Chronic (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 (17) Prediabetes Status: Chronic (18) S/P cardiac catheterization Status: Chronic Immunizations: Have You Had Influenza Vaccine: Yes Influenza Vaccine Date: Jul 18, 2013 History of Tetanus Vaccine?: 2008 Tetanus Immunization Date: Aug 21, 2009 History of Pneumococcal: No History of Hepatitis B Vaccine: No Medication Reconciliation New Medications: Glucostix Blood Test Strips (Gudogtouch Ultra Control) 1 Ea Strp PIECE, #120 Insulin Pen Needle (Bd Pen Needle/Michelle/Ultra) 1 Mis Mis SYR, #120 Lancets (Gudogtouch Delica Lancets) 1 Mis Mis APPL, #2 Metformin Ext Rel (Glucophage Ext Rel) 500 Mg Tab 1 TAB PO DAILY for 30 Days, #30 TAB 1 Refill Oxycodone Ir (Roxicodone Ir) 5 Mg Tab 5 MG PO Q6H PRN for Pain, #30 TAB Take 1 pill (5mg) or 1.5 pills (7.5mg) for pain. Insulin Aspart (Novolog Flexpen) 100 Units/Ml Inj 0 UNITS SC ACHS for 30 Days, #2 PEN Insulin Glargine (Lantus Solostar) 100 Unit/Ml Inj 50 UNIT SC DAILY for 30 Days, #2 PEN Continued Medications: Alprazolam (Xanax) 1 Mg Tab 1 MG PO TID, TAB Cyclobenzaprine Hcl (Flexeril) 10 Mg Tab 10 MG PO TID PRN for Muscle Spasms, #30 TAB Escitalopram (Lexapro) 10 Mg Tab 10 MG PO DAILY, TAB Escitalopram Oxalate (Lexapro) 20 Mg Tab 20 MG PO DAILY, TAB Fluticasone Propionate (Nasal) (Flonase Allergy Relief) 50 Mcg/Act Spr 2 SPRAYS WALDEMAR DAILY PRN for ALLERGIC REACTION Lancets (Onetouch Delica Lancets) 1 Mis Mis BOX EX DIRECTED, #1 Methylphenidate (Ritalin) 20 Mg Tab 20 MG PO BID, TAB Metoprolol Succ (Toprol Xl) (Toprol-Xl ) 100 Mg Tabcr 150 MG PO DAILY Oxycodone HCl (Oxycodone HCl) 5 Mg Tab 5 MG PO Q4 PRN for moderate pain, #45 TAB Rivaroxaban (Xarelto) 20 Mg Tab 1 TAB PO DAILY for 30 Days, #30 TAB 11 Refills Zolpidem Tartrate (Ambien) 10 Mg Tab 10 MG PO HS for 30 Days, #30 TAB 5 Refills Discontinued Medications: Metformin Hcl (Glucophage) 500 Mg Tab 500 MG PO DAILY, #30 TAB Discharge Exam The patient was seen and examined at bedside. Pt is reporting that his diffuse muscle and body pain is well controlled. Pt verbalizes that he understand how to administer insulin and the insulin regime he should be taking. Eating and urinating well. Plan of care was described to the patient and all questions were answered. Physical Exam General Appearance: WD/WN, no apparent distress, + obese, + pertinent finding ( exam grossly unchanged from previous day) Respiratory/Chest: chest non-tender, lungs clear, normal breath sounds, no respiratory distress, no accessory muscle use Cardiovascular: regular rate, rhythm, no edema, no gallop, no JVD, no murmur Abdomen: normal bowel sounds, non tender, soft, no organomegaly, no pulsatile mass Extremities: non-tender, normal inspection, no calf tenderness, + pertinent finding (diffuse extremity tenderness, unchanged from previous day) Neurologic/Psychiatric: alert, normal mood/affect, oriented x 3 Hospital Course This is a 46M presenting with Hyperglycemia (blood sugars were in the 600s) and a normal AG. His HBA1C just approximately 2 units to 10.2 in approximately two weeks. His rapid onset of worsening DM is concerning as he has a long history of LFT elevations, myositis and this recent fever of unknown origin. US imaging of the pancreas, liver and biliary tree revealed no obstruction and no other abnormalities. Rheumatology was consulted and recommended outpatient follow up. Steroids were not started due to pt's new onset DM2. Pt was discharged on the following insulin regimen: Lantus 50 units daily and 15 Novolog with meals as well as the necessary materials as well as Metformin XR 500mg daily. Total Time Spent: Greater than 30 minutes This includes examination of the patient, discharge planning, medication reconciliation, and communication with other providers. Discharge Instructions Follow up with your Vest Tailor (Dr. Charlette Pérez) on March 25 at the [facility] in [place] either at 8 am or at 12:30 pm. Please call 2-3 days before your visit to confirm your appointment. Please continue to take your insulin and metformin as prescribed. These are your medications to treat your diabetes. We have shown you how to inject insulin, check your blood sugars and record the values in a daily log, and how to count carbohydrates. Please continue to do this . Please keep your PCP follow up appointment on March 15. We have prescribed some pain medications for you to take for your chronic muscle pains. Remember to drink a lot of water and stay well hydrated. Please continue to take your regular home medications, including Xarelto for your blood clots. Diabetes Instructions (brief) Test blood sugar immediately upon waking up in the morning while fasting. If blood sugar is below 80mg/dl, give Lantus 25 units instead of 50 units. Work with Primary Care Provider to continue to titrate Lantus dosing for a goal fasting BSG of 80-130mg/dl Use NovoLog 15 units injection with meals - Do not administer this dose if a meal is skipped!!! Check blood sugar before meals. Goal blood sugar before meals is 80-130mg/dl. May administer smaller dose of 8 units if smaller meal is consumed or carbohydrate content is very low. May consider administering additional NovoLog for per-meal BSG above 130mg/dl This is a recommended sliding scale based on your blood sugar level before meals. Blood Sugar 131-180 Give additional 2 units of NovoLog Blood Sugar 181-240 Give additional 4 units of NovoLog Blood Sugar 241-300 Give additional 6 units of NovoLog Blood Sugar 301-350 Give additional 8 units of NovoLog Blood Sugar 351-400 Give additional 10 units of NovoLog Blood Sugar above 400 Give additional 12 units of NovoLog Work with PCP to continue to titrate NovoLog dosing for a goal port-prandial glucose of less than 180mg/dl Additional Copies To Edgardo Azevedo D.O. Resident Involvement: Resident Care Provided Care Provided: Adult [facility] Medicine
[2017-03-08] MEDS ORDERED: INSULIN GLARGINE SOLOSTAR 100 UNITS/ML 3 ML PEN SC SCH (08:00)
[2017-03-11] MEDS ORDERED: RXC5 PO (13:39)
[2017-03-11] MEDS ORDERED: NVLGIPEN SC (13:39)
[2017-04-10] MEDS ORDERED: INSDGIPEN SQ (03:59)
[2017-04-10] MEDS ORDERED: CYCL10TA6 PO (04:00)
[2017-04-10] MEDS ORDERED: METFTAB PO (04:02)
[2017-04-10] MEDS ORDERED: OXYC1TAB3 PO (04:03)
[2017-04-10] MEDS ORDERED: RIVA1TAB4 PO (04:04)
[2017-04-11] MEDS ORDERED: PANT40TA PO (14:37)
[2017-06-15] MEDS ORDERED: MRLP17X OR ×2 (11:39→12:07)
[2017-06-15] MEDS ORDERED: SENN-65 PO ×2 (11:39→12:07)
[2017-06-15] MEDS ORDERED: METO100T44 PO ×2 (11:39→12:07)
[2017-07-24] MEDS ORDERED: ESCI1TAB18 PO (19:08)
[2017-07-24] MEDS ORDERED: ESCI10TA17 PO (19:08)
[2017-07-24] MEDS ORDERED: INSDGIPEN SQ (19:08)
[2017-07-24] MEDS ORDERED: METFTAB PO (19:08)
[2017-07-24] MEDS ORDERED: NVLG SQ (19:08)
[2017-07-24] MEDS ORDERED: PANT40TA PO (19:08)
[2017-07-24] MEDS ORDERED: CYCL10TA6 PO (19:08)
[2017-07-24] MEDS ORDERED: OXYC1TAB3 PO (19:08)
[2017-09-19] MEDS ORDERED: OXYC-164 PO (13:03)
[2017-09-19] MEDS ORDERED: GLC500 PO (13:03)
[2017-09-19] MEDS ORDERED: LVMI SC (13:03)
[2017-09-19] MEDS ORDERED: FSTTS EXT (13:03)
[2017-09-19] MEDS ORDERED: NVLG SC (13:03)
[2017-09-19] MEDS ORDERED: CYCL10TA6 PO (13:03)
== END 2017-03-07 16:26 | disposition home or self-care (01) | DRG 638 ==
LOC: ENRESERVTM → ENRESERVDT → C.EDB 19:06 → C.4E 21:55
PROVIDERS: ADMIT Internal Medicine; ATTEND Family Medicine
DX: E11.65 Type 2 diabetes mellitus with hyperglycemia (principal); N17.9 Acute kidney failure, unspecified; M62.82 Rhabdomyolysis; E87.1 Hypo-osmolality and hyponatremia; R50.9 Fever, unspecified; E86.0 Dehydration; R74.0 Nonspecific elevation of levels of transaminase and lactic acid dehydrogenase [LDH]; R94.5 Abnormal results of liver function studies; M60.9 Myositis, unspecified; G89.29 Other chronic pain; I12.9 Hypertensive chronic kidney disease with stage 1 through stage 4 chronic kidney disease, or unspecified chronic kidney disease; E11.22 Type 2 diabetes mellitus with diabetic chronic kidney disease; N18.9 Chronic kidney disease, unspecified; F32.9 Major depressive disorder, single episode, unspecified; F41.9 Anxiety disorder, unspecified; E66.9 Obesity, unspecified; Z68.38 Body mass index [BMI] 38.0-38.9, adult; Z91.14 Patient's other noncompliance with medication regimen; Z86.711 Personal history of pulmonary embolism; Z79.01 Long term (current) use of anticoagulants; Z79.84 Long term (current) use of oral hypoglycemic drugs; Z79.891 Long term (current) use of opiate analgesic; Z79.899 Other long term (current) drug therapy

== ENCOUNTER → 2017-03-04 | Outpatient (CLI) | payer OTHER ==
[~2017-03-04] MED LIST changes: +CYCL10TA6 PO; +DXY100 PO; +FSTTS; +FSTTS EXT; +GLC/500 PO; +GLC500 PO; +INSDGIPEN SC; +INSDGIPEN SQ; +INSU32MI13; +LANC-393; +LANC-393 EX; +LISI-461 PO; +LSN20 PO; +LSN5 PO; +LVMI SC; +METFTAB PO; +METO100T7 PO; +METO50TA7 PO; +MRLP17X OR; +NVLG SC; +NVLG SQ; +NVLGIPEN SC; +OXYC-164 PO; +PANT40TA PO; +RIVA1TAB4 PO; +RXC5 PO; +SENN-65 PO; -WARF5TAB7 PO; -WARF5TAB90 PO
[2017-03-04 17:30] LABS: BASO % 0.5 %; BASO ABS # 0.03 K/uL (0-0.2); COMPLETE YES; EOS % 2.7 %; HEMATOCRIT 45.4 % (42-52); LYMPH % 36.2 %; LYMPH ABS # 2.16 K/uL (1.2-3.4); MEAN CELL VOLUME 88.2 fL (80-100); MEAN CORPUSCULAR HEMOGLOBIN 30.3 pg (25-34); MEAN CORPUSCULAR HGB CONC 34.4 g/dl (32-36); MEAN PLATELET VOLUME 13.9 fL (7.4-10.4); MONO % 4.4 %; NEUT % 56.2 %; PLATELET COUNT 223 K/uL (130-400); RED BLOOD COUNT 5.15 M/uL (4.7-6.1); WHITE BLOOD COUNT 5.96 K/uL (4.8-10.8)
[2017-03-04 17:38] LABS: PROTHROMBIN TIME (PATIENT) 10.9 SECONDS (9.0-12.0)
[2017-03-04 17:38] LABS: URINE APPEARANCE CLEAR (CLEAR); URINE BILIRUBIN NEG (NEG); URINE COLOR YELLOW; URINE NITRITE NEG (NEG); URINE SPECIFIC GRAVITY 1.038 (1.000-1.030); UROBILINOGEN NEG (NEG)
[2017-03-04 17:40] LABS: MANUAL MICROSCOPIC REQUIRED? YES; REVIEW REQ? NO
[2017-03-04 18:00] LABS: ALB/GLOB RATIO 0.8 (0.9-2); ALKALINE PHOSPHATASE 174 U/L (45-117); ALT/SGPT 320 U/L (12-78); AST/SGOT 140 U/L (15-37); BLOOD UREA NITROGEN 19 mg/dl (7-18); BUN/CREATININE RATIO 7.9 (10-20); CALCIUM 10.2 mg/dl (8.5-10.1); CARBON DIOXIDE 29 mmol/L (21-32); CHLORIDE 88 mmol/L (98-107); GLUCOSE 761 mg/dl (70-99); POTASSIUM 4.1 mmol/L (3.5-5.1); SODIUM 127 mmol/L (136-145)
[2017-03-04 18:02] LABS: URINE BACTERIA 1+ (NEG)
[2017-03-04 18:58] LABS: ZZUR CULT IF INDIC CLEAN CATCH YES
== END | disposition home or self-care (01) ==
LOC: C.LABPBG 14:09
PROVIDERS: ATTEND Physician Assistant
DX: I26.99 Other pulmonary embolism without acute cor pulmonale (principal); N19 Unspecified kidney failure; R07.2 Precordial pain; G89.29 Other chronic pain

== ENCOUNTER 2017-03-10 04:47 | Inpatient (IN) | payer OTHER ==
[~2017-03-10] VITALS: Ht 188 cm; Wt 131.1 kg
[~2017-03-10 04:47] MED LIST changes: -DXY100 PO; +FSTTS; -GLC/500 PO; +INSDGIPEN SC; +INSU32MI13; +LANC-393; +METFTAB PO; +NVLGIPEN SC; +OXYC1TAB3 PO
[2017-03-10] MEDS ORDERED: SODIUM CHLORIDE 0.9% 1000ML 1,000 ML IV STA (05:16)
[2017-03-10 05:44] LABS: ALB/GLOB RATIO 0.8 (0.9-2); ALKALINE PHOSPHATASE 177 U/L (45-117); ALT/SGPT 405 U/L (12-78); AST/SGOT 171 U/L (15-37); BLOOD UREA NITROGEN 14 mg/dl (7-18); BUN/CREATININE RATIO 6.9 (10-20); CALCIUM 9.6 mg/dl (8.5-10.1); CARBON DIOXIDE 30 mmol/L (21-32); CHLORIDE 91 mmol/L (98-107); CKMB/CK RATIO 0.4 (0-3.0); GLUCOSE 845 mg/dl (70-99); POTASSIUM 3.8 mmol/L (3.5-5.1); SODIUM 130 mmol/L (136-145)
[2017-03-10 05:50] LABS: BASO % 0.6 %; BASO ABS # 0.04 K/uL (0-0.2); COMPLETE YES; EOS % 2.1 %; HEMATOCRIT 46.1 % (42-52); IG% 0.1 %; LYMPH % 36.1 %; LYMPH ABS # 2.58 K/uL (1.2-3.4); MEAN CELL VOLUME 89.5 fL (80-100); MEAN CORPUSCULAR HEMOGLOBIN 30.5 pg (25-34); MEAN CORPUSCULAR HGB CONC 34.1 g/dl (32-36); MONO % 4.9 %; NEUT % 56.2 %; PLATELET COUNT 219 K/uL (130-400); RED BLOOD COUNT 5.15 M/uL (4.7-6.1); WHITE BLOOD COUNT 7.15 K/uL (4.8-10.8)
[2017-03-10 05:52] LABS: URINE APPEARANCE CLEAR (CLEAR); URINE BILIRUBIN NEG (NEG); URINE COLOR YELLOW; URINE NITRITE NEG (NEG); URINE SPECIFIC GRAVITY 1.035 (1.000-1.030); UROBILINOGEN NEG (NEG)
[2017-03-10 05:59] LABS: ARTERIAL BLD GAS O2 SATURATION 95.5 % (90-95); ARTERIAL BLOOD GAS BASE EXCESS 2.7 mEq/L (-9-1.8); ARTERIAL BLOOD GAS HCO3 27 mmol/L (19-24); ARTERIAL BLOOD GAS PO2 79 mm/Hg (80-95); ARTERIAL BLOOD GAS pH 7.43 (7.35-7.45)
[2017-03-10 05:59] LABS: MANUAL MICROSCOPIC REQUIRED? NO; REVIEW REQ? NO
[2017-03-10] MEDS ORDERED: MoRPHine SULFATE 4 MG/ML 1 ML CARP\\VIAL IV STA (05:59)
[2017-03-10] MEDS ORDERED: ONDANSETRON INJ 2 MG/ML 2 ML VIAL IV STA (05:59)
[2017-03-10 06:00] LABS: ALLEN TEST POS (POS); O2 ADMINISTRATION ROOM AIR
[2017-03-10 06:12] LABS: BETA-HYDROXYBUTYRATE 1.39 mg/dL (0.2-2.81)
--- NOTE | 2017-03-10 06:17 | EMERGENCY ROOM VISIT NOTE ---
History Report prepared by Chad: Duane Huntley Under the Supervision of: Dr. Sharee Lebron D.O. First contact with patient: 05:04 Chief Complaint: HYPERGLYCEMIA Stated Complaint: DIZZINESS,NAUSEA,BODY ACHES,FAINTNESS History of Present Illness The patient is a 46 year old male who presents to the Emergency Room with complaints of persistent hyperglycemia beginning four days ago. He states that he has been having problems controlling his blood sugar. He was started on insulin as well as Metformin recently. The patient states that he has been taking his Metformin and insulin regularly. He takes insulin twice a day regularly at the same time each day. He states that he has been checking his blood sugar roughly once per day, and states that they have been consistently high readings. The patient states that he does not take insulin to compensate for his meals. He also complains of abdominal pain, lightheadedness, chest pain , calf cramping, and lack of appetite. He states that he was not able to sleep last night. The patient is on Xarelto for a previous history of PE. He denies any SOB. He was discharged from the hospital four days ago for which he was there for hyperglycemia. Source of History: patient Onset: Four days ago Quality: other (hyperglycemia) Timing: other (persistent) Associated Symptoms: + abdominal pain, + chest pain, No SOB Note: The patient also complains of lightheadedness, calf cramping, and lack of appetite. Review of Systems See HPI for pertinent positives & negatives. A total of 10 systems reviewed and were otherwise negative. 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 (25) Pharyngitis (26) Pleuritic chest pain (27) Prediabetes (28) Substernal chest pain (29) Suspected pulmonary embolism (30) Transaminitis Surgical Problems: (1) H/O colonoscopy (2) H/O esophagogastroduodenoscopy (3) History of muscle biopsy (4) History of rectal surgery (5) S/P cardiac catheterization Family History Blood clots FH: brain aneurysm MOTHER (mother, age 32) Social History Smoking Status: Never Smoker Alcohol Use: occasionally Drug Use: none Marital Status: single Housing Status: lives alone Occupation Status: disabled Current/Historical Medications Scheduled Alprazolam (Xanax), 1 MG PO TID Escitalopram (Lexapro), 10 MG PO DAILY Escitalopram Oxalate (Lexapro), 20 MG PO DAILY Insulin Aspart (Novolog Flexpen), 0 UNITS SC ACHS Insulin Glargine (Lantus Solostar), 50 UNIT SC DAILY Metformin Ext Rel (Glucophage Ext Rel), 1 TAB PO DAILY Methylphenidate (Ritalin), 20 MG PO BID Metoprolol Succ (Toprol Xl) (Toprol-Xl ), 150 MG PO DAILY Rivaroxaban (Xarelto), 1 TAB PO DAILY Zolpidem Tartrate (Ambien), 10 MG PO HS Scheduled PRN Cyclobenzaprine Hcl (Flexeril), 10 MG PO TID PRN for Muscle Spasms Fluticasone Propionate (Nasal) (Flonase Allergy Relief), 2 SPRAYS WALDEMAR DAILY PRN for ALLERGIC REACTION Oxycodone HCl (Oxycodone HCl), 5 MG PO Q4 PRN for moderate pain Oxycodone Ir (Roxicodone Ir), 5 MG PO Q6H PRN for Pain Allergies Coded Allergies: Iodine (Verified Allergy, Severe, THROAT SWELLING, 03/10/17) 02/18/13: patient denies IV contrast allergy Patient has been pre-treated in the past with methylprednisolone and diphenhydramine without incident following IV dye administration. Shellfish (Verified Allergy, Severe, THROAT SWELLING, 03/10/17) Iodinated Diagnostic Agents (Verified Allergy, Unknown, swelling, 03/10/17) Plasma, Human (Verified Allergy, Unknown, ANAPHYLAXIS, 03/10/17) Acetaminophen (Verified Adverse Reaction, Unknown, GI ISSUES, 03/10/17) Hydrocodone (Verified Adverse Reaction, Unknown, GI ISSUES, 03/10/17) Physical Exam Vital Signs Date Time Temp Pulse Resp B/P Pulse Ox O2 Delivery O2 Flow Rate FiO2 03/10/17 06:07 101 20 138/98 95 Room Air 03/10/17 05:12 95 03/10/17 04:51 36.7 118 18 169/77 95 Room Air Physical Exam HEENT: Head - normocephalic and atraumatic Pupils are equal, round, and reactive to light. Extraocular eye muscles are intact, and sclera are anicteric. Nose - moist nasal mucosa without discharge. Mouth - moist buccal mucosa. Oropharynx is nonerythematous and there is no tonsillar exudate or edema noted. Neck: Supple; no JVD, nuchal rigidity, cervical lymphadenopathy. Heart: Regular rate and rhythm. There is a normal S1 and S2 with no murmurs, clicks, or gallops appreciated. Lungs: Clear to auscultation bilaterally with no wheezes, rales, or rhonchi. Abdomen: Soft, completely nontender, nondistended, with good bowel sounds. There are no palpable pulsatile masses or hepatosplenomegaly. There is no guarding, rigidity, or rebound noted. Extremities: No evidence of cyanosis, clubbing, or edema. There are easily palpable peripheral pulses. Skin: warm and dry with good turgor and no rashes. Medical Decision & Procedures Laboratory Results 03/10/17 05:00 Red Blood Count 5.15, Mean Corpuscular Volume 89.5, Mean Corpuscular Hemoglobin 30.5, Mean Corpuscular Hemoglobin Concent 34.1, Neutrophils (%) (Auto) 56.2, Lymphocytes (%) (Auto) 36.1, Monocytes (%) (Auto) 4.9, Eosinophils (%) (Auto) 2.1, Basophils (%) (Auto) 0.6, Neutrophils # (Auto) 4.02, Lymphocytes # (Auto) 2.58, Monocytes # (Auto) 0.35, Eosinophils # (Auto) 0.15, Basophils # (Auto) 0.04 03/10/17 05:00 Test 03/10/17 00:00 03/10/17 05:00 03/10/17 05:47 Urine Color YELLOW Urine Appearance CLEAR (CLEAR) Urine pH 6.0 (4.5-7.5) Urine Specific [place] 1.035 (1.000-1.030) Urine Protein NEG (NEG) Urine Glucose (UA) 3+ (NEG) Urine Ketones NEG (NEG) Urine Occult Blood NEG (NEG) Urine Nitrite NEG (NEG) Urine Bilirubin NEG (NEG) Urine Urobilinogen NEG (NEG) Urine Leukocyte Esterase NEG (NEG) White Blood Count 7.15 K/uL (4.8-10.8) Red Blood Count 5.15 M/uL (4.7-6.1) Hemoglobin 15.7 g/dL (14.0-18.0) Hematocrit 46.1 % (42-52) Mean Corpuscular Volume 89.5 fL (80-100) Mean Corpuscular Hemoglobin 30.5 pg (25-34) Mean Corpuscular Hemoglobin Concent 34.1 g/dl (32-36) Platelet Count 219 K/uL (130-400) Neutrophils (%) (Auto) 56.2 % Lymphocytes (%) (Auto) 36.1 % Monocytes (%) (Auto) 4.9 % Eosinophils (%) (Auto) 2.1 % Basophils (%) (Auto) 0.6 % Neutrophils # (Auto) 4.02 K/uL (1.4-6.5) Lymphocytes # (Auto) 2.58 K/uL (1.2-3.4) Monocytes # (Auto) 0.35 K/uL (0.11-0.59) Eosinophils # (Auto) 0.15 K/uL (0-0.5) Basophils # (Auto) 0.04 K/uL (0-0.2) Immature Granulocyte % (Auto) 0.1 % Immature Granulocyte # (Auto) 0.01 K/uL (0.00-0.02) Anion Gap 9.0 mmol/L (3-11) Est Creatinine Clear Calc Drug Dose 67.9 ml/min Estimated GFR () 45.7 Estimated GFR (Non- 39.4 BUN/Creatinine Ratio 6.9 (10-20) Bedside Glucose > 600 mg/dl (70-99) Calcium Level 9.6 mg/dl (8.5-10.1) Total Bilirubin 0.5 mg/dl (0.2-1) Aspartate Amino Transf (AST/SGOT) 171 U/L (15-37) Alanine Aminotransferase (ALT/SGPT) 405 U/L (12-78) Alkaline Phosphatase 177 U/L (45-117) Total Creatine Kinase 542 U/L (39-308) Creatine Kinase MB 2.4 ng/ml (0.5-3.6) Creatine Kinase MB Ratio 0.4 (0-3.0) Troponin I < 0.015 ng/ml (0-0.045) Total Protein 9.4 gm/dl (6.4-8.2) Albumin 4.1 gm/dl (3.4-5.0) Globulin 5.3 gm/dl (2.5-4.0) Albumin/Globulin Ratio 0.8 (0.9-2) Beta-Hydroxybutyric Acid 1.39 mg/dL (0.2-2.81) Arterial Blood pH 7.43 (7.35-7.45) Arterial Blood Partial Pressure CO2 42 mmHg (35-46) Arterial Blood Partial Pressure O2 79 mm/Hg (80-95) Arterial Blood HCO3 27 mmol/L (19-24) Arterial Blood Oxygen Saturation 95.5 % (90-95) Arterial Blood Base Excess 2.7 mEq/L (-9-1.8) Arterial Blood Gas Delivery ROOM AIR Abner Test POS (POS) Laboratory results per my review. Medications Administered Medications (Trade) Dose Ordered Sig/Roxie Route Start Time Stop Time Status Last Admin Dose Admin Sodium Chloride (Nss 1000ml) 1,000 ml @ 999 mls/hr Q1H1M STAT IV 03/10/17 05:16 03/10/17 06:16 DC 03/10/17 05:20 999 MLS/HR Morphine Sulfate (MoRPHine SULFATE INJ) 4 mg NOW STAT IV 03/10/17 05:59 03/10/17 06:00 DC 03/10/17 06:06 4 MG Ondansetron HCl (Zofran Inj) 4 mg NOW STAT IV 03/10/17 05:59 03/10/17 06:00 DC 03/10/17 06:04 4 MG Procedure Medications include: Sodium Chloride IV, Zofran IV, Morphine Sulfate IV. ECG Indication: chest pain Rate (beats per minute): 98 Rhythm: normal sinus Findings: ST depression (Inferior), T-wave inversion (lateral and inferior leads) Comparison ECG Date: February 24, 2017 Change: The inferior T-wave inversions, and ST depressions are new. ED Course 0506: Past medical records reviewed. The patient was evaluated in room A3. A complete history and physical exam was performed. An IV lock was initiated and labs are drawn as above. A twelve-lead EKG was obtained as described above. 0516: Ordered Sodium Chloride 1000 ml @ 999 mls/hr IV. 0556: I reassessed the patient. He still has chest discomfort, but would not like any Nitroglycerin for his pain because Nitroglycerin has given him headaches in the past, and has never helped with chest pain. 0559: Ordered Zofran Inj 4 mg IV, Morphine Sulfate 4 mg IV. 0610: Upon reevaluation, I discussed findings and results with the patient. He verbalized agreement of the treatment plan. I spoke with Dr. Esteves of the [facility]. The patient will be evaluated for further management and care. Medical Decision The patient is a 46 year old male who presents to the ED with hyperglycemia. Differential diagnosis includes cardiac ischemia, DKA, PE, recurrent myositis, and uncontrolled hyperglycemia. Laboratory studies: Urinalysis normal. Sodium of 130. Chloride of 91. BUN of 14. Creatinine of 2.0. Glucose 845. AST 171. ALT 405. Alk-Phos of 177. Total CK of 542. CKMB of 2.4. Troponin > 0.015. Blood gas reveals a pH of 7.4. pCO2 of 42, P02 of 79. Bicarb of 27. Stable H&H. No leukocytosis. BHA of 1.39. The patient was recently discharged from the hospital with a diagnosis of hyperglycemia. The patient was placed on twice a day dosing of insulin along with metformin. The patient explains that since he was discharged from the hospital, he has not had a reading less plan on his HIGH on his glucometer. The patient has not slept tonight and was concerned about these high blood sugar readings. The patient was started on insulin protocol for moderate stress. The patient has a blood sugar greater than 800 here in the emergency department. He was complaining of some chest discomfort. He does have new EKG findings but the troponin is negative. The patient has persistent elevated LFTs. Creatinine is up to 2.0. I discussed the case with the [facility] Hospitalist and they will evaluate for further management. Consults Time Called: [id number] Consulting Physician: Dr. Esteves -[facility] Returned Call: [phone] Discussed the patient's case. The patient will be evaluated for further management. Impression Primary Impression: Hyperglycemia Additional Impression: BRIDGETTE (acute kidney injury) Scribe Attestation The scribe's documentation has been prepared under my direction and personally reviewed by me in its entirety. I confirm that the note above accurately reflects all work, treatment, procedures, and medical decision making performed by me. Departure Information Dispostion Being Evaluated By Hospitalist Referrals No Doctor, Assigned (PCP) Patient Instructions My [facility] Problem Qualifiers
[2017-03-10] MEDS ORDERED: DKA GOAL RANGE 150-250 mg/dl 1 EA ONE (06:30)
[2017-03-10] MEDS ORDERED: INSULIN IV INFUSION PROTOCOL STA (06:40)
[2017-03-10] MEDS ORDERED: MODERATE STRESS LEVEL ONE (06:45)
[2017-03-10] MEDS ORDERED: GLUCOSE 10 TABS/TUBE PO PRN ×2 (07:00→08:30)
[2017-03-10] MEDS ORDERED: INSULIN REGULAR 250 UNITS in SODIUM CHLORIDE 0.9% 250ML 250 ML IV ONE (07:00)
[2017-03-10] MEDS ORDERED: GLUCAGON FOR INJ 1 MG VIAL SQ PRN ×2 (07:00→08:30)
[2017-03-10] MEDS ORDERED: GLUCOSE 40% GEL 15 GM TUBE PO PRN ×2 (07:00→08:30)
[2017-03-10] MEDS ORDERED: DEXTROSE 50% 50 ML SYR IV PRN ×2 (07:00→08:30)
[2017-03-10] MEDS ORDERED: INSULIN HUMAN REGULAR IV BOLUS 3.5 UNIT in SYRINGE 0 ML IV SCH (07:00)
[2017-03-10] MEDS: INSULIN REGULAR 250 UNITS in SODIUM CHLORIDE 0.9% 250ML 250 ML IV SCH ×4 (07:04→12:56)
[2017-03-10 07:10] VITALS: O2SAT 95; BMI 37.1
[2017-03-10 08:20] VITALS: O2SAT 94
[2017-03-10] MEDS ORDERED: OXYCODONE HCL IR 5 MG TAB (IMMEDIATE RELEASE) PO PRN (08:30)
[2017-03-10] MEDS ORDERED: MAGNESIUM HYDROXIDE SUSP 30 ML UDC PO PRN (08:30)
[2017-03-10] MEDS ORDERED: ALUMINUM/MAGNESIUM/SIMETH (MAALOX MAX) 30 ML UDC PO PRN (08:30)
[2017-03-10] MEDS ORDERED: POLYETHYLENE (MIRALAX) 17 GM PACK PO PRN (08:30)
[2017-03-10] MEDS ORDERED: ONDANSETRON INJ 2 MG/ML 2 ML VIAL IV PRN (08:30)
[2017-03-10] MEDS ORDERED: FLUTICASONE PROPIONATE NA SPR 16 GM BTL NAE PRN (08:30)
[2017-03-10] MEDS ORDERED: INSULIN GLARGINE SOLOSTAR 100 UNITS/ML 3 ML PEN SC ONE (09:00)
--- NOTE | 2017-03-10 09:02 | History and Physical ---
History & Physical Date & Time of Service: March 10, 2017 at 08:59 Chief Complaint: Dizziness,Nausea,Body Aches,Faintness Primary Care Physician: No Doctor, Assigned History of Present Illness Mr. Delaney is a 46 y/o male with PMHx of T2DM (Uncontrolled) , Chronic Myositis, H/O Esophageal Ulcer, and Pulmonary Emboli x 4 episodes who presents due to multiple complaints of dizziness, nausea, body aches, and hyperglycemia. He was recently admitted and D/C'd in February for similar issues. He reports that his glucose readings were in the 200s when he was hospitalized but since returning home he has been unable to control his glucose readings. He was changed from Metformin to Metformin XL on previous admission. Instructed to do the following: Metformin XL one tablet daily, Lantus 50 units SC daily, and Humalog 15 units with each meal and sliding scale for extra coverage. Patient currently doing the following: Metformin XL in AM with Lantus 25 units SC in AM and Humalog 15 units in AM. He has been injecting insulin into the side of his buttocks unsure if this is going into SC or muscle. He reports only checking his glucose readings 3 times a day and reporting all high readings from 400-600 range. He reports that he does not have much of an appetite but has not adjusted his dietary habits yet. He also plans to start exercising to help with glucose readings but hasn't. He does report an associated 20 lbs weightloss over the past few weeks. He stated that it is hard to him to retain this information because it was explained to him "when he was on his pain medications ". He does report increased anxiety as he feels like this may be instead his blood clots, as he has had 4 episodes of PEs. He is mildly tachy but with adequate oxygenation. He was originally on Coumadin but reports subtherapeutic INRs and was recently switched to Xarelto and reporting compliance. In the ED, glucose noted to be 845 without acidosis. He was initiated on an insulin gtt and BSG at 491 prior to admission. Transaminitis present but improving from previous admission. Electrolytes are largely stable except for mild hyponatremia. Plan to bridge Lantus with current insulin gtt to wean off as glucose is controlled and no evidence of DKA/Honk. He will be admitted to Med /Surg and will need extensive DM education. Past Medical/Surgical History Medical Problems: (1) BRIDGETTE (acute kidney injury) Status: Resolved (2) Anxiety Status: Chronic (3) Blood clot in vein Status: Resolved (4) Chest pain Status: Resolved (5) Chest pain Status: Resolved (6) Chest wall pain Status: Resolved (7) CKD (chronic kidney disease), stage III Status: Chronic (8) Costochondritis Status: Chronic (9) Depression Status: Chronic (10) Elevated CK Status: Chronic (11) Elevated CK Status: Resolved (12) Elevated CPK Status: Resolved (13) Essential hypertension Status: Chronic (14) GERD (gastroesophageal reflux disease) Status: Chronic (15) Hemoptysis Status: Resolved (16) History of esophageal ulcer Permanent Comment: on EGD 06/23/2014 Status: Chronic (17) History of pleural effusion Status: Resolved (18) Hx of pulmonary embolus Status: Chronic (19) Hyperglycemia Status: Resolved (20) Hyperlipidemia Status: Chronic (21) Hypertension Status: Chronic (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 (23) Pharyngitis Status: Resolved (24) Pleuritic chest pain Status: Resolved (25) Prediabetes Status: Chronic (26) Substernal chest pain Status: Resolved (27) Suspected pulmonary embolism Status: Resolved Surgical Problems: (1) H/O colonoscopy Status: Chronic (2) H/O esophagogastroduodenoscopy Permanent Comment: [id number]- esophageal ulcer 06/24/2014- bleeding esophageal ulcer 08/29/2014- Grade B reflux esophagitis 11/21/2014- mild-moderate inflammation Status: Chronic (3) History of muscle biopsy Status: Chronic (4) History of rectal surgery Status: Chronic (5) S/P cardiac catheterization Permanent Comment: 2012- normal coronary arteries Status: Chronic Family History Blood clots FH: brain aneurysm MOTHER (mother, age 32) Social History Smoking Status: Never Smoker Drug Use: none Marital Status: single Housing status: lives with family Occupational Status: disabled Immunizations History of Influenza Vaccine: Yes Influenza Vaccine Date: Jul 18, 2013 History of Tetanus Vaccine?: 2008 Tetanus Immunization Date: Aug 21, 2009 History of Pneumococcal: No History of Hepatitis B Vaccine: No Multi-Drug Resistant Organisms History of MDRO: No Allergies Coded Allergies: Iodine (Verified Allergy, Severe, THROAT SWELLING, 03/10/17) 02/18/13: patient denies IV contrast allergy Patient has been pre-treated in the past with methylprednisolone and diphenhydramine without incident following IV dye administration. Shellfish (Verified Allergy, Severe, THROAT SWELLING, 03/10/17) Iodinated Diagnostic Agents (Verified Allergy, Unknown, swelling, 03/10/17) Plasma, Human (Verified Allergy, Unknown, ANAPHYLAXIS, 03/10/17) Acetaminophen (Verified Adverse Reaction, Unknown, GI ISSUES, 03/10/17) Hydrocodone (Verified Adverse Reaction, Unknown, GI ISSUES, 03/10/17) Home Medications Scheduled Alprazolam (Xanax), 1 MG PO TID Escitalopram (Lexapro), 10 MG PO DAILY Escitalopram Oxalate (Lexapro), 20 MG PO DAILY Insulin Aspart (Novolog Flexpen), 0 UNITS SC ACHS Insulin Glargine (Lantus Solostar), 50 UNIT SC DAILY Metformin Ext Rel (Glucophage Ext Rel), 1 TAB PO DAILY Methylphenidate (Ritalin), 20 MG PO BID Metoprolol Succ (Toprol Xl) (Toprol-Xl ), 150 MG PO DAILY Rivaroxaban (Xarelto), 1 TAB PO DAILY Zolpidem Tartrate (Ambien), 10 MG PO HS Scheduled PRN Cyclobenzaprine Hcl (Flexeril), 10 MG PO TID PRN for Muscle Spasms Fluticasone Propionate (Nasal) (Flonase Allergy Relief), 2 SPRAYS WALDEMAR DAILY PRN for ALLERGIC REACTION Oxycodone HCl (Oxycodone HCl), 5 MG PO Q4 PRN for moderate pain Oxycodone Ir (Roxicodone Ir), 5 MG PO Q6H PRN for Pain Review of Systems Constitutional: + sweats, + weight loss, No chills, No fever Eyes: No worsening of vision ENT: No nasal symptoms, No sore throat, No trouble swallowing Respiratory: + shortness of breath (intermittent) Cardiovascular: + chest pain (chronic - intermittent), No palpitations Abdomen: + nausea, No GI bleeding, No constipation, No diarrhea, No pain, No vomiting Musculoskeletal: + problem reported (chronic myalgias), No calf pain, No swelling Genitourinary - Male: + urinary frequency, No dysuria Neurologic: + problem reported (dizziness/lightheaded) Psychiatric: + anxiety Endocrine: + excessive thirst, + excessive urination Hematologic / Lymphatic: + clotting problems (multiple PEs (4 episodes)) Integumentary: No rash Physical Exam Vital Signs Date Time Temp Pulse Resp B/P Pulse Ox O2 Delivery O2 Flow Rate FiO2 03/10/17 08:28 101 03/10/17 08:20 103 18 125/87 94 Room Air 03/10/17 07:10 95 Room Air 03/10/17 06:07 101 20 138/98 95 Room Air 03/10/17 05:12 95 03/10/17 04:51 36.7 118 18 169/77 95 Room Air General Appearance: WD/WN, no apparent distress, + pertinent finding (mild diaphoresis) Head: normocephalic, atraumatic Eyes: sclerae normal ENT: hearing grossly normal Neck: supple, no JVD, trachea midline Respiratory/Chest: lungs clear, normal breath sounds, no respiratory distress, no accessory muscle use Cardiovascular: regular rate, rhythm, no gallop, no murmur Abdomen/GI: normal bowel sounds, non tender, soft Back: normal inspection Extremities/Musculoskelatal: no calf tenderness, no pedal edema Neurologic/Psych: no motor/sensory deficits, alert, oriented x 3 Skin: normal color, warm/dry Diagnostics Laboratory Results Results Past 24 Hours Test 03/10/17 00:00 03/10/17 05:00 03/10/17 05:47 03/10/17 08:16 Range/Units Urine Color YELLOW Urine Appearance CLEAR CLEAR Urine pH 6.0 4.5-7.5 Urine Specific [place] 1.035 1.000-1.030 Urine Protein NEG NEG Urine Glucose (UA) 3+ NEG Urine Ketones NEG NEG Urine Occult Blood NEG NEG Urine Nitrite NEG NEG Urine Bilirubin NEG NEG Urine Urobilinogen NEG NEG Urine Leukocyte Esterase NEG NEG White Blood Count 7.15 4.8-10.8 K/uL Red Blood Count 5.15 4.7-6.1 M/uL Hemoglobin 15.7 14.0-18.0 g/dL Hematocrit 46.1 42-52 % Mean Corpuscular Volume 89.5 80-100 fL Mean Corpuscular Hemoglobin 30.5 25-34 pg Mean Corpuscular Hemoglobin Concent 34.1 32-36 g/dl Platelet Count 219 130-400 K/uL Neutrophils (%) (Auto) 56.2 % Lymphocytes (%) (Auto) 36.1 % Monocytes (%) (Auto) 4.9 % Eosinophils (%) (Auto) 2.1 % Basophils (%) (Auto) 0.6 % Neutrophils # (Auto) 4.02 1.4-6.5 K/uL Lymphocytes # (Auto) 2.58 1.2-3.4 K/uL Monocytes # (Auto) 0.35 0.11-0.59 K/uL Eosinophils # (Auto) 0.15 0-0.5 K/uL Basophils # (Auto) 0.04 0-0.2 K/uL Immature Granulocyte % (Auto) 0.1 % Immature Granulocyte # (Auto) 0.01 0.00-0.02 K/uL Sodium Level 130 136-145 mmol/L Potassium Level 3.8 3.5-5.1 mmol/L Chloride Level 91 98-107 mmol/L Carbon Dioxide Level 30 21-32 mmol/L Anion Gap 9.0 3-11 mmol/L Blood Urea Nitrogen 14 7-18 mg/dl Creatinine 2.00 0.60-1.40 mg/dl Est Creatinine Clear Calc Drug Dose 67.9 ml/min Estimated GFR () 45.7 Estimated GFR (Non- 39.4 BUN/Creatinine Ratio 6.9 10-20 Bedside Glucose > 600 491 70-99 mg/dl Random Glucose 845 70-99 mg/dl Calcium Level 9.6 8.5-10.1 mg/dl Total Bilirubin 0.5 0.2-1 mg/dl Aspartate Amino Transf (AST/SGOT) 171 15-37 U/L Alanine Aminotransferase (ALT/SGPT) 405 12-78 U/L Alkaline Phosphatase 177 45-117 U/L Total Creatine Kinase 542 39-308 U/L Creatine Kinase MB 2.4 0.5-3.6 ng/ml Creatine Kinase MB Ratio 0.4 0-3.0 Troponin I < 0.015 0-0.045 ng/ml Total Protein 9.4 6.4-8.2 gm/dl Albumin 4.1 3.4-5.0 gm/dl Globulin 5.3 2.5-4.0 gm/dl Albumin/Globulin Ratio 0.8 0.9-2 Beta-Hydroxybutyric Acid 1.39 0.2-2.81 mg/dL Arterial Blood pH 7.43 7.35-7.45 Arterial Blood Partial Pressure CO2 42 35-46 mmHg Arterial Blood Partial Pressure O2 79 80-95 mm/Hg Arterial Blood HCO3 27 19-24 mmol/L Arterial Blood Oxygen Saturation 95.5 90-95 % Arterial Blood Base Excess 2.7 -9-1.8 mEq/L Arterial Blood Gas Delivery ROOM AIR Abner Test POS POS Impression Assessment and Plan Mr. Delaney is a 46 y/o male with PMHx of T2DM (Uncontrolled) , Chronic Myositis, and Pulmonary Emboli x 4 episodes who presents due to multiple complaints of dizziness, nausea, body aches, and hyperglycemia. He was recently admitted and D/C'd in February for similar issues. Presentation today appears due to non-compliance. Hyperglycemia in T2DM without DKA/HONK: Non-Compliance - Reporting taking Metformin 1 tablet in AM and not completely sure on insulin dosing but stated Lantus 25 units in AM and taking Humalog 15 units in AM only - injecting in side of buttocks and checking sugars TID and reporting poor control - Started on insulin gtt in ED and will give Lantus 50 units SC now and allow to taper down of gtt and DC - Continue Lantus 50 units SC daily with SSI - goal 110-150, correction of 10, carb ratio 4 - Glycemic control consult and personal development educator -- Will need multiple teaching sessions, hands on demonstration, and easy to follow instructions - patient does report that he does not feel like he knows what he is doing -- D/C instructions from previous admission reviewed which stated plan however patient was not able to follow BRIDGETTE 2/2 Dehydration/Hyperglycemia: - Labile Cr per records unsure of baseline/new baseline - likely some underlying kidney dysfunction related to T2DM - 1/2 NSS + 20 mEq KCl at 100 mL/hr with repeat BMP at noon - given insulin requirements will monitor for hypokalemia from uptake and gently replace - continue monitoring and replete as necessary - Will monitor hyponatremia H/O Pulmonary Emboli: Lupus Anticoagulant Detected - Reporting Xarelto was only started approx. 1 week ago because of subtherapeutic INR on Coumadin - Xarelto 20 mg daily Chronic Elevated LFTS and CK and Chronic Myositis: TRENDING DOWN - Unknown etiology - does have fatty liver on imaging - Rheumatology on previous admission - Outpatient F/U on March 25 with Yaritza+ myositis panel performed - Chronic pain - Flexeril 10 mg TID PRN and Roxicodone 5-7.5 mg Q6H PRN HTN: - Metoprolol 150 mg daily Anxiety/Mood/ADHD: - Xanax 1 mg TID, Lexapro 30 mg daily, Ambien 10 mg HS, and Ritalin 20 mg BID DVT Prophylaxis: Xarelto Disposition: - Needs extensive DM education PA Physician Supervision Note: I interviewed and examined the patient. Discussed with Nel Rutherford PAC and agree with findings and plan as documented in the note. Any exceptions or clarifications are listed here: None Recent discharge with insulin requiring diabetes, now returns with marked hyperglycemia, upon questioning there are some gaps in his knowledge of his diabetic care. vitals stable car is tachy,lungs are clear, no fruity breath Poorly controlled diabetes without DKA or HONK will transition to basal bolus with assistance of pharmacy, will re educate patient for better home compliance Documented By: Eddie Meyers Level of Care Med/Surg Advanced Directives Existing Living Will: No Existing Power of Tool And Production Planner: No Resuscitation Status FULL RESUSCITATION VTE Prophylaxis VTE Risk Assessment Done? Y/N: Yes Risk Level: High Given or contraindicated: Other Anticoagulation (Xarelto), T.E.D. Stockings, SCD's
[2017-03-10] MEDS: ALPRAZOLAM 0.5 MG TAB PO SCH ×3 (09:15→20:38)
[2017-03-10] MEDS ORDERED: PNEUMOCOCCAL ADMINISTRATION CHARGE ONE (10:15)
[2017-03-10] MEDS ORDERED: PNEUMOCOCCAL POLYSACCHARIDES 25 MCG/0.5 ML VIAL/SYR IM. ONE (10:15)
[2017-03-10] MEDS: SODIUM CHLOR 0.45% + 20MEQ KCL 1,000 ML IV SCH ×2 (10:45→20:38)
[2017-03-10] MEDS: ESCITALOPRAM OXALATE 20 MG TAB PO SCH (10:46)
[2017-03-10] MEDS: ESCITALOPRAM OXALATE 10 MG TAB PO SCH (10:46)
[2017-03-10] MEDS ORDERED: PHARMACY GLYCEMIC MGMT CONSULT PRN (10:47)
[2017-03-10] MEDS: PANTOprazole SOD 40 MG TAB PO SCH (11:09)
[2017-03-10] MEDS: METOPROLOL SUCC 50MG EXT REL TAB PO SCH (11:09)
[2017-03-10] MEDS: INSULIN ASPART 100 UNITS/ML 3 ML PEN SC SCH ×4 (11:11→21:52)
[2017-03-10] MEDS ORDERED: NURSING VERBAL MED ORDER ONE (11:15)
[2017-03-10 12:51] LABS: BUN/CREATININE RATIO 7.1 (10-20); CALCIUM 9.3 mg/dl (8.5-10.1); CREATININE 1.8 mg/dl (0.60-1.40); MAGNESIUM 2.2 mg/dl (1.8-2.4); PHOSPHORUS 4.1 mg/dl (2.5-4.9); POTASSIUM 3.4 mmol/L (3.5-5.1)
[2017-03-10 13:06] LABS: BETA-HYDROXYBUTYRATE 1.17 mg/dL (0.2-2.81)
[2017-03-10 13:30] VITALS: BMI 37.1
--- NOTE | 2017-03-10 14:05 | Pharmacy Progress Note ---
Glycemic Control Intl Consult Date of Service March 10, 2017. Scope Glycemic Pharmacist consulted by Nel Rutherford PA-C on 03/10/17 for glycemic control and to write orders per [facility] inpatient glycemic control protocol Objective Weight (Kilograms): 131.100 Accuchecks BSG (last 24hrs): Test 03/10/17 05:00 03/10/17 08:16 03/10/17 09:21 03/10/17 10:13 Bedside Glucose > 600 mg/dl (70-99) 491 mg/dl (70-99) 425 mg/dl (70-99) 421 mg/dl (70-99) Random Glucose 845 mg/dl (70-99) Test 03/10/17 11:37 03/10/17 12:15 03/10/17 12:48 Bedside Glucose 300 mg/dl (70-99) 231 mg/dl (70-99) Random Glucose 308 mg/dl (70-99) HbA1c 10.2% on 03/07/17 Recent Pertinent Medications Outpatient Anti-diabetic Regimen: * Metformin XR 500mg PO daily with evening meal. --> pt is taking in AM * Lantus 50 units SQ Daily in the morning --> pt taking Lantus 25 units in AM * NovoLog 15 units SQ with meals --> pt only taking in AM * Do not administer this dose if a meal is skipped!!! * May administer smaller dose of 8 units if smaller meal is consumed or carbohydrate content is very low. * NovoLog for hyperglycemia {pt not doing this additional insulin} Blood Sugar 131-180 Give additional 2 units of NovoLog Blood Sugar 181-240 Give additional 4 units of NovoLog Blood Sugar 241-300 Give additional 6 units of NovoLog Blood Sugar 301-350 Give additional 8 units of NovoLog Blood Sugar 351-400 Give additional 10 units of NovoLog Blood Sugar above 400 Give additional 12 units of NovoLog Assessment & Plan ASSESSMENT: * 46yo newly diagnosed T2DM male with recurrent admissions for hyperglycemia. * Pt initiated on metformin upon discharge from 02/24 - 02/27 admission & A1c = 8.7% * Pt readmitted 03/04-03/07 and was initiated on metformin XR, Lantus, & Novolog at discharge A1c 10.2% * Pt did get new Rx filled but has been taking lower than prescribed doses and is unsure about his administration technique. * Pt with SEVERE hyperglycemia on admission but no metabolic abnormalities. Pt is dehydrated secondary to osmotic diuresis. * Rehydration results in a more robust response to low-dose insulin therapy * IV insulin infusion warranted but will not be needed for a long period of time * Will start transition from IV --> SQ basal bolus insulin regimen based on previous admission glycemic data * Pt will need to work with diabetes educations for additional insulin training. Pt would benefit from outpatient DSME. PLAN FOR INPATIENT GLYCEMIC CONTROL: * Metformin * Hold for admission as Scr elevated * Basal insulin * Lantus 50 units SQ daily in AM * Additional Lantus 15 units SQ x 1 dose tonight if BSG > 180mg/dl. Additional dose may be needed secondary to highly insulin resistance state and glucose toxicity. * Bolus Insulin * NovoLog per scale ACHS or Q6hrs while NPO. Additional checks + coverage at 0000 & 0400 for sustained severe hyperglycemia * Please note that the plan above was derived based on current level of insulin resistance and hospital stress. These recommendations are appropriate for inpatient admission only. Plan of care upon discharge will need to be reassessed to avoid potential outpatient hypo/hyperglycemia. Thank you.
[2017-03-10] MEDS ORDERED: DC IV INSULIN INFUSION ONE (15:00)
[2017-03-10] MEDS: CYCLOBENZAPRINE HCL 10 MG TAB PO PRN (15:21)
[2017-03-10 15:41] VITALS: BP 92/60; PULSE 70; TEMP 36.7; O2SAT 96
[2017-03-10] MEDS ORDERED: MoRPHine SULFATE 2 MG/ML CARP IV PRN (17:30)
[2017-03-10] MEDS ORDERED: OXYCODONE HCL IR 5 MG TAB (IMMEDIATE RELEASE) ONE (17:52)
[2017-03-10] MEDS: RIVAROXABAN 20 MG TAB PO SCH (17:56)
[2017-03-10] MEDS: OXYCODONE HCL IR 5 MG TAB (IMMEDIATE RELEASE) PO PRN ×2 (17:59→23:35)
[2017-03-10] MEDS: METHYLPHENIDATE HCL 10 MG TAB PO SCH (20:38)
[2017-03-10] MEDS ORDERED: ZOLPIDEM TARTRATE 10 MG TAB PO SCH (21:00)
[2017-03-10] MEDS ORDERED: INSULIN GLARGINE SOLOSTAR 100 UNITS/ML 3 ML PEN SC SCH (21:00)
[2017-03-10 23:50] VITALS: BP 118/73; PULSE 73; TEMP 37; O2SAT 93
[2017-03-11] MEDS: INSULIN ASPART 100 UNITS/ML 3 ML PEN SC SCH ×5 (00:19→18:43)
[2017-03-11] MEDS: MoRPHine SULFATE 4 MG/ML 1 ML CARP\\VIAL IV PRN ×2 (02:11→09:20)
[2017-03-11] MEDS: CYCLOBENZAPRINE HCL 10 MG TAB PO PRN (04:11)
[2017-03-11] MEDS: SODIUM CHLOR 0.45% + 20MEQ KCL 1,000 ML IV SCH (06:06)
[2017-03-11 06:50] LABS: HEMATOCRIT 41.8 % (42-52); MEAN CELL VOLUME 87.6 fL (80-100); MEAN CORPUSCULAR HEMOGLOBIN 29.1 pg (25-34); MEAN CORPUSCULAR HGB CONC 33.3 g/dl (32-36); MEAN PLATELET VOLUME 12.9 fL (7.4-10.4); PLATELET COUNT 204 K/uL (130-400); RED BLOOD COUNT 4.77 M/uL (4.7-6.1); WHITE BLOOD COUNT 7.35 K/uL (4.8-10.8)
[2017-03-11 07:07] VITALS: BP 128/83; PULSE 72; TEMP 37; O2SAT 94
--- NOTE | 2017-03-11 07:17 | Progress Note ---
Subjective Date of Service: March 11, 2017. Problem List Medical Problems: (1) Acute renal failure (ARF) Status: Acute (2) Anticoagulated by anticoagulation treatment Status: Acute (3) Anxiety Status: Chronic (4) Atypical chest pain Status: Acute (5) CKD (chronic kidney disease), stage III Status: Chronic (6) Contusion of left chest wall Status: Acute (7) Costochondritis Status: Chronic (8) Depression Status: Chronic (9) DKA (diabetic ketoacidoses) Status: Acute (10) Dyspnea Status: Acute (11) Elevated CK Status: Chronic (12) Epigastric abdominal pain Status: Acute (13) Essential hypertension Status: Chronic (14) GERD (gastroesophageal reflux disease) Status: Chronic (15) Headache Status: Acute (16) Hematemesis Status: Acute (17) History of esophageal ulcer Permanent Comment: on EGD 06/23/2014 Status: Chronic (18) History of pulmonary embolus (PE) Status: Acute (19) Hx of pulmonary embolus Status: Chronic (20) Hyperlipidemia Status: Chronic (21) Hypertension Status: Chronic (22) Lactic acidosis Status: Acute (23) Leg pain, left Status: Acute (24) Leg pain, right Status: Acute (25) Myositis Status: Acute (26) Non-autoimmune myositis Status: Chronic (27) Precordial chest pain Status: Acute (28) Prediabetes Status: Chronic (29) Right leg swelling Status: Acute Surgical Problems: (1) H/O colonoscopy Status: Chronic (2) H/O esophagogastroduodenoscopy Permanent Comment: [id number] esophageal ulcer 06/24/2014- bleeding esophageal ulcer 08/29/2014- Grade B reflux esophagitis 11/21/2014- mild-moderate inflammation Status: Chronic (3) History of muscle biopsy Status: Chronic (4) History of rectal surgery Status: Chronic (5) S/P cardiac catheterization Permanent Comment: 2012- normal coronary arteries Status: Chronic Objective Vital Signs Date Time Temp Pulse Resp B/P Pulse Ox O2 Delivery O2 Flow Rate FiO2 03/11/17 07:07 37.0 72 16 128/83 94 Room Air 03/11/17 00:15 Room Air 03/10/17 23:50 37.0 73 18 118/73 93 Room Air 03/10/17 15:50 Room Air 03/10/17 15:41 36.7 70 18 92/60 96 Room Air 03/10/17 08:28 101 03/10/17 08:20 103 18 125/87 94 Room Air Laboratory Results Last 24 Hours Test 03/10/17 08:16 03/10/17 09:21 03/10/17 10:13 03/10/17 11:37 Bedside Glucose 491 mg/dl 425 mg/dl 421 mg/dl 300 mg/dl Test 03/10/17 12:15 03/10/17 12:48 03/10/17 13:56 03/10/17 15:06 Sodium Level 136 mmol/L Potassium Level 3.4 mmol/L Chloride Level 98 mmol/L Carbon Dioxide Level 31 mmol/L Anion Gap 7.0 mmol/L Blood Urea Nitrogen 13 mg/dl Creatinine 1.80 mg/dl Est Creatinine Clear Calc Drug Dose 75.4 ml/min Estimated GFR () 51.9 Estimated GFR (Non- 44.8 BUN/Creatinine Ratio 7.1 Random Glucose 308 mg/dl Calcium Level 9.3 mg/dl Phosphorus Level 4.1 mg/dl Magnesium Level 2.2 mg/dl Beta-Hydroxybutyric Acid 1.17 mg/dL Bedside Glucose 231 mg/dl 243 mg/dl 180 mg/dl Test 03/10/17 17:05 03/10/17 20:54 03/11/17 00:04 03/11/17 04:04 Bedside Glucose 122 mg/dl 187 mg/dl 353 mg/dl 253 mg/dl Test 03/11/17 06:40 White Blood Count 7.35 K/uL Red Blood Count 4.77 M/uL Hemoglobin 13.9 g/dL Hematocrit 41.8 % Mean Corpuscular Volume 87.6 fL Mean Corpuscular Hemoglobin 29.1 pg Mean Corpuscular Hemoglobin Concent 33.3 g/dl RDW Standard Deviation 40.8 fL RDW Coefficient of Variation 12.7 % Platelet Count 204 K/uL Mean Platelet Volume 12.9 fL Assessment and Plan 46 M with uncontrolled diabetes, Chronic Myositis of undetermined diagnosis, , and Pulmonary Emboli Hyperglycemia in T2DM without DKA/HONK: Lantus 50 units SC daily with SSI - goal 110-150, correction of 10, carb ratio 4 - Glycemic control consult and early childhood special educator BRIDGETTE 2/2 Dehydration/Hyperglycemia: hydrate H/O Pulmonary Emboli: Lupus Anticoagulant Detected Xarelto 20 mg daily was only started approx. 1 week ago because of subtherapeutic INR on Coumadin Chronic Elevated LFTS and CK and Chronic Myositis:unknown etiology - does have fatty liver on imaging - Rheumatology on previous admission - Outpatient F/U on March 25 with Yaritza+ myositis panel performed HTN stable Metoprolol 150 mg daily Anxiety/Mood/ADHD:- Xanax 1 mg TID, Lexapro 30 mg daily, Ambien 10 mg HS, and Ritalin 20 mg BID DVT Prophylaxis: Xarelto
[2017-03-11 07:23] LABS: BUN/CREATININE RATIO 8.1 (10-20); CALCIUM 8.3 mg/dl (8.5-10.1); CREATININE 1.6 mg/dl (0.60-1.40); MAGNESIUM 2.1 mg/dl (1.8-2.4); POTASSIUM 3.3 mmol/L (3.5-5.1)
[2017-03-11] MEDS: PANTOprazole SOD 40 MG TAB PO SCH (07:35)
[2017-03-11] MEDS: ESCITALOPRAM OXALATE 10 MG TAB PO SCH (07:37)
[2017-03-11] MEDS: METOPROLOL SUCC 50MG EXT REL TAB PO SCH (07:37)
[2017-03-11] MEDS: ESCITALOPRAM OXALATE 20 MG TAB PO SCH (07:37)
[2017-03-11] MEDS: OXYCODONE HCL IR 5 MG TAB (IMMEDIATE RELEASE) PO PRN ×2 (07:53→13:51)
[2017-03-11] MEDS: ALPRAZOLAM 0.5 MG TAB PO SCH ×2 (08:56→13:50)
[2017-03-11] MEDS: METHYLPHENIDATE HCL 10 MG TAB PO SCH (08:57)
[2017-03-11] MEDS ORDERED: INSULIN GLARGINE SOLOSTAR 100 UNITS/ML 3 ML PEN SC SCH (09:00)
--- NOTE | 2017-03-11 09:37 | Pharmacy Progress Note ---
Glycemic Control: Progress Nt Date of Service March 11, 2017. Scope Glycemic Pharmacist consulted by Dr Rutherford on 03/10/17 for glycemic control and to write orders per [facility] inpatient glycemic control protocol. Objective Accuchecks BSG (last 24hrs): Test 03/10/17 10:13 03/10/17 11:37 03/10/17 12:15 03/10/17 12:48 Bedside Glucose 421 mg/dl (70-99) 300 mg/dl (70-99) 231 mg/dl (70-99) Random Glucose 308 mg/dl (70-99) Test 03/10/17 13:56 03/10/17 15:06 03/10/17 17:05 03/10/17 20:54 Bedside Glucose 243 mg/dl (70-99) 180 mg/dl (70-99) 122 mg/dl (70-99) 187 mg/dl (70-99) Test 03/11/17 00:04 03/11/17 04:04 03/11/17 06:40 03/11/17 07:59 Bedside Glucose 353 mg/dl (70-99) 253 mg/dl (70-99) 136 mg/dl (70-99) Random Glucose 169 mg/dl (70-99) Laboratory Data (last 24hrs) Test 03/10/17 12:15 03/11/17 06:40 Anion Gap 7.0 mmol/L 5.0 mmol/L BUN/Creatinine Ratio 7.1 8.1 Blood Urea Nitrogen 13 mg/dl 13 mg/dl Creatinine 1.80 mg/dl 1.60 mg/dl Potassium Level 3.4 mmol/L 3.3 mmol/L Sodium Level 136 mmol/L 137 mmol/L White Blood Count 7.35 K/uL Recent Pertinent Medications Outpatient Anti-diabetic Regimen: * Metformin XR 500mg PO daily with evening meal. --> pt is taking in AM * Lantus 50 units SQ Daily in the morning --> pt taking Lantus 25 units in AM * NovoLog 15 units SQ with meals --> pt only taking in AM * Do not administer this dose if a meal is skipped!!! * May administer smaller dose of 8 units if smaller meal is consumed or carbohydrate content is very low. * NovoLog for hyperglycemia {pt not doing this additional insulin} Blood Sugar 131-180 Give additional 2 units of NovoLog Blood Sugar 181-240 Give additional 4 units of NovoLog Blood Sugar 241-300 Give additional 6 units of NovoLog Blood Sugar 301-350 Give additional 8 units of NovoLog Blood Sugar 351-400 Give additional 10 units of NovoLog Blood Sugar above 400 Give additional 12 units of NovoLog Current Inpatient Regimen: * Oral agents: on hold due to renal impairment * Basal insulin: Lantus 50 units SQ daily + additional 15 units qPM if BSG is greater than 180 md/dL * Correctional Insulin: Novolog Correction per scale ACHS Goal Range: Low 110 mg/dL - High 140 mg/dL Correction Factor: 10 mg/dL/unit * Prandial insulin: Per carb ratio of 1 unit per 4 grams CHO consumed Assessment & Plan ASSESSMENT: * 46yo newly diagnosed T2DM male with recurrent admissions for hyperglycemia. * Pt initiated on metformin upon discharge from 02/24 - 02/27 admission & A1c = 8.7% * Pt readmitted 03/04-03/07 and was initiated on metformin XR, Lantus, & Novolog at discharge A1c 10.2% * Pt did get new Rx filled but has been taking lower than prescribed doses and is unsure about his administration technique. * Pt admitted with SEVERE hyperglycemia requiring IV insulin drip. Patient transitioned to SQ basal/bolus insulin on 03/10 * Pt has been followed by the diabetes educations this admission. Will attempt to coordinate outpatient follow up with Plant Electrician. PLAN FOR INPATIENT GLYCEMIC CONTROL: * Metformin * Continue to hold for admission as Scr elevated * Basal insulin * Continue Lantus 50 units SQ daily in AM * Bolus Insulin * NovoLog per scale ACHS * Correction factor: 10 * Carb ration: 1 units per 4 grams of carbohydrate * Additional checks + coverage at 0000 & 0400 RECOMMENDATIONS FOR DISCHARGE: * Discussed out patient regimen with Preprint Analyst, Vangie Espinoza, and Dr. Meyers. * Based on my discussion with Vangie, it was determined that the patient would benefit from a simpler insulin dosing regimen initially. The patient was not following his prescribed outpatient regimen due to confusion and uncertainty of technique. * [facility], Endocrinology contacted to arrange out patient follow up. * The following regimen was reviewed with the patient and family member prior to discharge. Patient was agreeable. * Continue Metformin (as renal function permits) * Dose can be titrated as an outpatient to a maximum of 2550 mg/day divided twice daily * Increase by 500 mg per week as tolerated * Continue to administer with food to decrease incidence of GI side effects * Basal Insulin - Lantus 50 units SQ daily in the morning * Recommend giving half dose (25 units) if BSG is less than 80 mg/dL * Novolog 12 units SQ three times daily with meals and at bedtime if snack is eaten * DO NOT administer if meal is skipped * Check blood sugar before meals. Goal blood sugar before meals is 80-130 mg/dL * If eating a low carbohydrate meal, may administer smaller insulin dose of 6 units Note, initial dosing is on the conservative side - Insulin dosing will require further titration as an outpatient. * Please note that the plan above was derived based on current level of insulin resistance and hospital stress. These recommendations are appropriate for inpatient admission only. Plan of care upon discharge will need to be reassessed to avoid potential outpatient hypo/hyperglycemia. Thank you. Discharge Information Upcoming appointment at [facility], Endocrinology Where: [facility], [address], [place] [address] When: March at 8:30 am March at 1:00 pm Please arrive 30 minutes early. Appointment will last two hours.
[2017-03-11] MEDS ORDERED: NVLGIPEN SC (13:39)
[2017-03-11] MEDS ORDERED: RXC5 PO (13:39)
--- NOTE | 2017-03-11 13:42 | Discharge Instructions ---
Discharge Instructions Date of Service March 11, 2017. Admission Reason for Admission: Hyperglycemia Discharge Discharge Diagnosis / Problem: uncontrolled diabetes Discharge Goals Goal(s): Diagnostic testing, Therapeutic intervention Activity Recommendations Activity Limitations: resume your previous activity . Instructions / Follow-Up Instructions / Follow-Up follow up with diabetic physician office in one week Current Hospital Diet Patient's current hospital diet: Diabetes Type 2 Diet Discharge Diet Recommended Diet: Diabetes Type 1 Diet Pending Studies Studies pending at discharge: no Laboratory Results Hemoglobin A1c Test 03/07/17 06:03 Range/Units Estimated Average Glucose 246 mg/dl Hemoglobin A1c 10.2 H 4.5-5.6 % Lipid Panel Test 02/24/17 05:18 Range/Units Triglycerides Level 336 H 0-150 mg/dl Cholesterol Level 187 0-200 mg/dl HDL Cholesterol 29 mg/dl Cholesterol/HDL Ratio 6.4 LDL Cholesterol, Calculated 91 mg/dl Medical Emergencies . Who to Call and When: Medical Emergencies: If at any time you feel your situation is an emergency, please call 911 immediately. . Non-Emergent Contact Non-Emergency issues call your: Primary Care Provider Call Non-Emergent contact if: temperature is above 101, your pain is unusual for you . . "Provider Documentation" section prepared by Eddie Meyers. . VTE Core Measure Inpt VTE Proph given/why not?: Other Anticoagulation (Xarelto), T.E.Bert Stockings, SCD's
--- NOTE | 2017-03-11 13:50 | Discharge Summary ---
Discharge Summary Date of Service March 11, 2017. Discharge Summary Admission Date: March 10, 2017 at 08:26 Discharge Date: March 11, 2017 Discharge Disposition: Home Principal Diagnosis: uncontrolled diabetes Problems/Secondary Diagnoses: (1) Anxiety Status: Chronic (2) CKD (chronic kidney disease), stage III Status: Chronic (3) Costochondritis Status: Chronic (4) Depression Status: Chronic (5) Elevated CK Status: Chronic (6) Essential hypertension Status: Chronic (7) GERD (gastroesophageal reflux disease) Status: Chronic (8) H/O colonoscopy Status: Chronic (9) H/O esophagogastroduodenoscopy Status: Chronic (10) History of esophageal ulcer Status: Chronic (11) History of muscle biopsy Status: Chronic (12) History of rectal surgery Status: Chronic (13) Hx of pulmonary embolus Status: Chronic (14) Hyperlipidemia Status: Chronic (15) Hypertension Status: Chronic (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 (17) Prediabetes Status: Chronic (18) S/P cardiac catheterization Status: Chronic Immunizations: Have You Had Influenza Vaccine: Yes Influenza Vaccine Date: Jul 18, 2013 History of Tetanus Vaccine?: 2008 Tetanus Immunization Date: Aug 21, 2009 History of Pneumococcal: No History of Hepatitis B Vaccine: No Medication Reconciliation Changed Medications: Insulin Aspart (Novolog Flexpen) 100 Units/Ml Inj 12 UNITS SC ACHS for 30 Days, #2 PEN 6 Refills (Changed from: 0 UNITS; Refills: ) please be sure the pen capacity will be enough for one month Oxycodone HCl (Oxycodone HCl) 5 Mg Tab 10 MG PO Q4 PRN for moderate pain, #30 TAB (Changed from: 5 MG; 45) Continued Medications: Alprazolam (Xanax) 1 Mg Tab 1 MG PO TID, TAB Cyclobenzaprine Hcl (Flexeril) 10 Mg Tab 10 MG PO TID PRN for Muscle Spasms, #30 TAB Escitalopram (Lexapro) 10 Mg Tab 10 MG PO DAILY, TAB Escitalopram Oxalate (Lexapro) 20 Mg Tab 20 MG PO DAILY, TAB Fluticasone Propionate (Nasal) (Flonase Allergy Relief) 50 Mcg/Act Spr 2 SPRAYS WALDEMAR DAILY PRN for ALLERGIC REACTION Insulin Glargine (Lantus Solostar) 100 Unit/Ml Inj 50 UNIT SC DAILY for 30 Days, #2 PEN Metformin Ext Rel (Glucophage Ext Rel) 500 Mg Tab 1 TAB PO DAILY for 30 Days, #30 TAB 1 Refill Methylphenidate (Ritalin) 20 Mg Tab 20 MG PO BID, TAB Metoprolol Succ (Toprol Xl) (Toprol-Xl ) 100 Mg Tabcr 150 MG PO DAILY Rivaroxaban (Xarelto) 20 Mg Tab 1 TAB PO DAILY for 30 Days, #30 TAB 11 Refills Zolpidem Tartrate (Ambien) 10 Mg Tab 10 MG PO HS for 30 Days, #30 TAB 5 Refills Discontinued Medications: Oxycodone Ir (Roxicodone Ir) 5 Mg Tab 5 MG PO Q6H PRN for Pain, #30 TAB Take 1 pill (5mg) or 1.5 pills (7.5mg) for pain. Discharge Exam Review of Systems: Constitutional: No chills, No fever Respiratory: No cough, No sputum Cardiovascular: No chest pain, No orthopnea Abdomen: No diarrhea, No nausea, No pain, No vomiting Physical Exam: General Appearance: WD/WN, + mild distress Neck: supple, no JVD Respiratory/Chest: chest non-tender, lungs clear, normal breath sounds Cardiovascular: regular rate, rhythm, no edema, no murmur Abdomen / GI: normal bowel sounds, non tender, soft Hospital Course 46 M with uncontrolled diabetes, Chronic Myositis of undetermined diagnosis, , and Pulmonary Emboli Hyperglycemia in T2DM without DKA/HONK: Lantus 50 units SC daily since carb counting did create some confusion for now will use 12 units with each meal and snack and follow up with out pt educator senior clinical for further education. has been seen inpt by pharmacy and educator senior clinical BRIDGETTE 2/2 Dehydration/Hyperglycemia: hydrate H/O Pulmonary Emboli: Lupus Anticoagulant Detected Xarelto 20 mg daily was only started approx. 1 week ago because of subtherapeutic INR on Coumadin Chronic Elevated LFTS and CK and Chronic Myositis:unknown etiology - does have fatty liver on imaging - Rheumatology on previous admission - Outpatient F/U on March 25 with Yaritza+ myositis panel performed, will follow up as outpt HTN stable Metoprolol 150 mg daily Anxiety/Mood/ADHD:- Xanax 1 mg TID, Lexapro 30 mg daily, Ambien 10 mg HS, and Ritalin 20 mg BID Total Time Spent: Greater than 30 minutes This includes examination of the patient, discharge planning, medication reconciliation, and communication with other providers. Discharge Instructions Please refer to the electronic Patient Visit Report (Discharge Instructions) for additional information.
[2017-03-11 14:27] VITALS: BMI 37.1
[2017-03-11 15:02] VITALS: BP 122/72; PULSE 76; TEMP 36.7; O2SAT 94
[2017-03-11 16:54] VITALS: BP 122/72; PULSE 76; TEMP 36.7; O2SAT 94
[2017-03-11 17:32] VITALS: BP 125/80; PULSE 69; O2SAT 92
[2017-03-11] MEDS ORDERED: NALOXONE HCL 0.4 MG/1 ML VIAL/CARP ONE (18:14)
[2017-03-11] MEDS ORDERED: NURSING VERBAL MED ORDER ONE (18:15)
[2017-03-11] MEDS ORDERED: NALOXONE HCL 0.4 MG/1 ML VIAL/CARP IV STA (18:25)
--- NOTE | 2017-03-11 18:30 | Progress Note ---
Progress Note Date of Service March 11, 2017. Progress Note Called by nursing that pt is lethargic, pt did receive oxycodone at 1350. Nurse was uncomfortable with discharge gave 0.4 mg narcan iv, ecg shows nsr no acute changes, cxr without significant changes remarkable recovery after narcan cautioned pt about pain medicine use will discharge
--- NOTE | 2017-03-11 18:34 | DIAGNOSTIC IMAGING REPORT ---
SINGLE VIEW CHEST CLINICAL HISTORY: Dyspnea. Hyperglycemia. FINDINGS: An AP, portable, upright chest radiograph is compared to study dated 03/04/2017 and correlated with chest CT dated 01/31/2017. The examination is degraded by portable technique, large body habitus, and patient rotation. The heart is mildly enlarged. The pulmonary vasculature is noncongested. There are low lung volumes and bibasilar atelectasis. No focal airspace consolidation is seen and there is no large pleural effusion. No pneumothorax is seen. The bony thorax is grossly intact. IMPRESSION: Low lung volume and cardiomegaly. No acute cardiopulmonary abnormality is seen. Electronically signed by: Kendall Dee M.D. 03/11/2017 6:32 PM Dictated Date/Time: 03/11/2017 6:31 PM
[2017-03-11] MEDS: RIVAROXABAN 20 MG TAB PO SCH (18:42)
[2017-03-12 13:30] VITALS: Ht 188 cm; Wt 131.1 kg
[2017-04-10] MEDS ORDERED: INSDGIPEN SQ (03:59)
[2017-04-10] MEDS ORDERED: CYCL10TA6 PO (04:00)
[2017-04-10] MEDS ORDERED: METFTAB PO (04:02)
[2017-04-10] MEDS ORDERED: OXYC1TAB3 PO (04:03)
[2017-04-10] MEDS ORDERED: RIVA1TAB4 PO (04:04)
[2017-04-11] MEDS ORDERED: PANT40TA PO (14:37)
[2017-06-15] MEDS ORDERED: SENN-65 PO ×2 (11:39→12:07)
[2017-06-15] MEDS ORDERED: METO100T44 PO ×2 (11:39→12:07)
[2017-06-15] MEDS ORDERED: MRLP17X OR ×2 (11:39→12:07)
[2017-07-24] MEDS ORDERED: NVLG SQ (19:08)
[2017-07-24] MEDS ORDERED: OXYC1TAB3 PO (19:08)
[2017-07-24] MEDS ORDERED: INSDGIPEN SQ (19:08)
[2017-07-24] MEDS ORDERED: ESCI1TAB18 PO (19:08)
[2017-07-24] MEDS ORDERED: CYCL10TA6 PO (19:08)
[2017-07-24] MEDS ORDERED: METFTAB PO (19:08)
[2017-07-24] MEDS ORDERED: ESCI10TA17 PO (19:08)
[2017-07-24] MEDS ORDERED: PANT40TA PO (19:08)
[2017-09-19] MEDS ORDERED: NVLG SC (13:03)
[2017-09-19] MEDS ORDERED: LVMI SC (13:03)
[2017-09-19] MEDS ORDERED: GLC500 PO (13:03)
[2017-09-19] MEDS ORDERED: FSTTS EXT (13:03)
[2017-09-19] MEDS ORDERED: OXYC-164 PO (13:03)
[2017-09-19] MEDS ORDERED: CYCL10TA6 PO (13:03)
== END 2017-03-11 19:20 | disposition home health service (06) | DRG 638 ==
LOC: ENRESERVDT → ENRESERVTM → C.EDB 04:48 → C.MSN 08:26
PROVIDERS: ADMIT Internal Medicine; ATTEND Internal Medicine
DX: E11.65 Type 2 diabetes mellitus with hyperglycemia (principal); N17.9 Acute kidney failure, unspecified; D68.62 Lupus anticoagulant syndrome; M60.9 Myositis, unspecified; E86.0 Dehydration; R53.83 Other fatigue; T40.2X5A Adverse effect of other opioids, initial encounter; Y92.230 Patient room in hospital as the place of occurrence of the external cause; R94.5 Abnormal results of liver function studies; R74.8 Abnormal levels of other serum enzymes; K76.0 Fatty (change of) liver, not elsewhere classified; I10 Essential (primary) hypertension; G89.29 Other chronic pain; F41.9 Anxiety disorder, unspecified; F32.9 Major depressive disorder, single episode, unspecified; F90.9 Attention-deficit hyperactivity disorder, unspecified type; Z91.14 Patient's other noncompliance with medication regimen; Z86.711 Personal history of pulmonary embolism; Z79.01 Long term (current) use of anticoagulants; Z79.4 Long term (current) use of insulin; Z79.84 Long term (current) use of oral hypoglycemic drugs; Z79.891 Long term (current) use of opiate analgesic; Z79.899 Other long term (current) drug therapy

== ENCOUNTER 2017-04-10 02:25 | Observation (INO) | payer OTHER ==
[~2017-04-10] VITALS: Ht 188 cm; Wt 137.9 kg
[~2017-04-10 02:25] MED LIST changes: -FSTTS; -INSU32MI13; -LANC-393; -LANC-393 EX; -METO100T44 PO; +METO1TAB69 PO; -OXYC1TAB3 PO
[2017-04-10] MEDS ORDERED: ONDANSETRON INJ 2 MG/ML 2 ML VIAL ONE (03:12)
[2017-04-10] MEDS ORDERED: DEXTROSE 50% 50 ML SYR ONE (03:13)
[2017-04-10] MEDS ORDERED: SODIUM CHLORIDE 0.9% 1000ML 1,000 ML IV SCH (03:15)
[2017-04-10] MEDS ORDERED: INSDGIPEN SQ ×2 (03:59)
[2017-04-10] MEDS ORDERED: INSDGIPEN SC (03:59)
[2017-04-10] MEDS ORDERED: CYCL10TA6 PO ×2 (04:00)
[2017-04-10] MEDS ORDERED: METFTAB PO ×2 (04:02)
[2017-04-10] MEDS ORDERED: OXYC1TAB3 PO ×2 (04:03)
[2017-04-10] MEDS ORDERED: RIVA1TAB4 PO ×2 (04:04)
[2017-04-10 04:14] LABS: ALKALINE PHOSPHATASE 126 U/L (45-117); ALT/SGPT 247 U/L (12-78); AST/SGOT 175 U/L (15-37); BLOOD UREA NITROGEN 12 mg/dl (7-18); BUN/CREATININE RATIO 7.9 (10-20); CARBON DIOXIDE 24 mmol/L (21-32); CHLORIDE 111 mmol/L (98-107); GLUCOSE 61 mg/dl (70-99); POTASSIUM 3.1 mmol/L (3.5-5.1); SODIUM 146 mmol/L (136-145)
[2017-04-10] MEDS ORDERED: DEXTROSE 50% 50 ML SYR IV STA ×2 (04:20→05:50)
--- NOTE | 2017-04-10 04:22 | EMERGENCY ROOM VISIT NOTE ---
History Report prepared by Chad: Crissy Byrne Under the Supervision of: Dr. Catalino Dale M.D. First contact with patient: 03:45 Stated Complaint: EXTREME PAIN, LOW SUGAR, DIABETIC History of Present Illness The patient is a 46 year old male who presents to the Emergency Room with complaints of persistent vomiting that began several days ago. The patient states that he has a history of diabetes and notes that he ran out of his insulin today. He states that his blood glucose was 289 mg/dL this evening. The patient states that his blood glucose dropped this evening. He additionally notes chest pain, shortness of breath, abdominal pain, dizziness, and fatigue. The patient states that he has a history of pulmonary emboli, noting that he is on Xarelto. He denies any history of heart problems. The patient denies any recent sick contacts. He denies any history of a cholecystectomy. Source of History: patient Onset: several days ago Position: other (global) Quality: other (vomiting) Timing: other (persistent) Associated Symptoms: + chest pain, + SOB, + abdominal pain, + fatigue Note: Associated Symptoms: dizziness, drop in blood glucose Review of Systems See HPI for pertinent positives & negatives. A total of 10 systems reviewed and were otherwise negative. Past Medical & Surgical Medical Problems: (1) BRIDGETTE (acute kidney injury) (2) Anxiety (3) Blood clot in vein (4) Chest pain (5) Chest pain (6) Chest wall pain (7) CKD (chronic kidney disease), stage III (8) Costochondritis (9) Depression (10) Diabetes (11) Elevated CK (12) Elevated CK (13) Elevated CPK (14) Essential hypertension (15) Fever and chills (16) GERD (gastroesophageal reflux disease) (17) Hemoptysis (18) History of esophageal ulcer (19) History of pleural effusion (20) Hx of pulmonary embolus (21) Hyperglycemia (22) Hyperlipidemia (23) Hypertension (24) Myositis (25) Non-autoimmune myositis (26) Pharyngitis (27) Pleuritic chest pain (28) Prediabetes (29) Substernal chest pain (30) Suspected pulmonary embolism (31) Transaminitis Surgical Problems: (1) H/O colonoscopy (2) H/O esophagogastroduodenoscopy (3) History of muscle biopsy (4) History of rectal surgery (5) S/P cardiac catheterization Family History Blood clots FH: brain aneurysm MOTHER (mother, age 32) Social History Smoking Status: Never Smoker Alcohol Use: occasionally Drug Use: none Marital Status: single Housing Status: lives alone Occupation Status: disabled Current/Historical Medications Scheduled Alprazolam (Xanax), 1 MG PO TID Escitalopram (Lexapro), 10 MG PO DAILY Escitalopram Oxalate (Lexapro), 20 MG PO DAILY Insulin Aspart (Novolog Flexpen), 12 UNITS SC ACHS Insulin Glargine (Lantus Solostar), 50 UNITS SQ QAM Metformin Ext Rel (Glucophage Ext Rel), 500 MG PO DAILY Methylphenidate (Ritalin), 20 MG PO BID Metoprolol Succ (Toprol Xl) (Toprol-Xl ), 150 MG PO DAILY Rivaroxaban (Xarelto), 20 MG PO DAILY Zolpidem Tartrate (Ambien), 10 MG PO HS Scheduled PRN Cyclobenzaprine Hcl (Flexeril), 10 MG PO TID PRN for SPASMS Fluticasone Propionate (Nasal) (Flonase Allergy Relief), 2 SPRAYS WALDEMAR DAILY PRN for ALLERGIC REACTION Oxycodone Ir (Roxicodone Ir), 10 MG PO Q4H PRN for Severe Pain Allergies Coded Allergies: Iodine (Verified Allergy, Severe, THROAT SWELLING, 03/10/17) 02/18/13: patient denies IV contrast allergy Patient has been pre-treated in the past with methylprednisolone and diphenhydramine without incident following IV dye administration. Shellfish (Verified Allergy, Severe, THROAT SWELLING, 03/10/17) Iodinated Diagnostic Agents (Verified Allergy, Unknown, swelling, 03/10/17) Plasma, Human (Verified Allergy, Unknown, ANAPHYLAXIS, 03/10/17) Acetaminophen (Verified Adverse Reaction, Unknown, GI ISSUES, 03/10/17) Hydrocodone (Verified Adverse Reaction, Unknown, GI ISSUES, 03/10/17) Physical Exam Vital Signs Date Time Temp Pulse Resp B/P (MAP) Pulse Ox O2 Delivery O2 Flow Rate FiO2 04/10/17 02:50 74 Physical Exam GENERAL: Patient is uncomfortable appearing and in mild distress. Periodically dry heaving. HEENT: No acute trauma, normocephalic atraumatic, mucous membranes moist, no nasal congestion, no scleral icterus. NECK: No stridor, no adenopathy, no meningismus, trachea is midline. LUNGS: No dyspnea. Clear to auscultation and equal bilaterally. No wheeze, no rhonchi. HEART: Regular rate and rhythm. No murmurs, rubs, gallops appreciated. ABDOMEN: Vague right upper quadrant tenderness to palpation. Soft, bowel sounds positive, no masses appreciated, no peritonitis. BACK: No midline tenderness, no CVA tenderness EXTREMITIES: Normal motion all extremities, no cyanosis, no edema. NEUROLOGIC: Alert and oriented, no acute motor or sensory deficits, no focal weakness, cranial nerves grossly intact. SKIN: No rash, no jaundice, no diaphoresis. Medical Decision & Procedures ER Provider Diagnostic Interpretation: X ray results are stated below per my interpretation: Chest: 1 view: No infiltrate, no effusion, normal cardiac border. No free air under the diaphragm. Radiology results and stated below per my review and radiologist interpretation: US GALLBLADDER: Hepatic steatosis. Biliary sludge. Gallbladder wall is at the upper limits of normal in thickness. No pericholecystic fluid. CBD is mildly dilated to 6 mm in caliber. Right kidney is unremarkable. Radiologist: Sloan Juárez MD Study ready at 0354 and initial results transmitted at 1072 Laboratory Results 04/10/17 02:50 Red Blood Count 4.51, Mean Corpuscular Volume 89.6, Mean Corpuscular Hemoglobin 30.2, Mean Corpuscular Hemoglobin Concent 33.7, Mean Platelet Volume 12.9, Neutrophils (%) (Auto) 41.0, Lymphocytes (%) (Auto) 50.5, Monocytes (%) (Auto) 5.7, Eosinophils (%) (Auto) 2.3, Basophils (%) (Auto) 0.3, Neutrophils # (Auto) 2.72, Lymphocytes # (Auto) 3.34, Monocytes # (Auto) 0.38, Eosinophils # (Auto) 0.15, Basophils # (Auto) 0.02 04/10/17 02:50 Test 04/10/17 02:50 04/10/17 04:58 White Blood Count 6.62 K/uL (4.8-10.8) Red Blood Count 4.51 M/uL (4.7-6.1) Hemoglobin 13.6 g/dL (14.0-18.0) Hematocrit 40.4 % (42-52) Mean Corpuscular Volume 89.6 fL (80-100) Mean Corpuscular Hemoglobin 30.2 pg (25-34) Mean Corpuscular Hemoglobin Concent 33.7 g/dl (32-36) Platelet Count 160 K/uL (130-400) Mean Platelet Volume 12.9 fL (7.4-10.4) Neutrophils (%) (Auto) 41.0 % Lymphocytes (%) (Auto) 50.5 % Monocytes (%) (Auto) 5.7 % Eosinophils (%) (Auto) 2.3 % Basophils (%) (Auto) 0.3 % Neutrophils # (Auto) 2.72 K/uL (1.4-6.5) Lymphocytes # (Auto) 3.34 K/uL (1.2-3.4) Monocytes # (Auto) 0.38 K/uL (0.11-0.59) Eosinophils # (Auto) 0.15 K/uL (0-0.5) Basophils # (Auto) 0.02 K/uL (0-0.2) RDW Standard Deviation 45.4 fL (36.4-46.3) RDW Coefficient of Variation 14.0 % (11.5-14.5) Immature Granulocyte % (Auto) 0.2 % Immature Granulocyte # (Auto) 0.01 K/uL (0.00-0.02) Large Platelets 1+ Prothrombin Time 12.0 SECONDS (9.0-12.0) Prothromb Time International Ratio 1.1 (0.9-1.1) Activated Partial Thromboplast Time 28.9 SECONDS (21.0-31.0) Partial Thromboplastin Ratio 1.1 Anion Gap 11.0 mmol/L (3-11) Estimated GFR () 64.7 Estimated GFR (Non- 55.8 BUN/Creatinine Ratio 7.9 (10-20) Calcium Level 9.0 mg/dl (8.5-10.1) Total Bilirubin 0.3 mg/dl (0.2-1) Direct Bilirubin < 0.1 mg/dl (0-0.2) Aspartate Amino Transf (AST/SGOT) 175 U/L (15-37) Alanine Aminotransferase (ALT/SGPT) 247 U/L (12-78) Alkaline Phosphatase 126 U/L (45-117) Total Protein 8.0 gm/dl (6.4-8.2) Albumin 3.5 gm/dl (3.4-5.0) Lipase 316 U/L (73-393) Bedside Glucose 85 mg/dl (70-99) Laboratory results as reviewed by me. Medications Administered Medications (Trade) Dose Ordered Sig/Roxie Route Start Time Stop Time Status Last Admin Dose Admin Dextrose (Dextrose 50% 50ML Syringe) 50 ml NOW STAT IV 04/10/17 04:20 04/10/17 04:21 DC 04/10/17 04:28 50 ML Ondansetron HCl (Zofran Inj) 4 mg NOW STAT IV 04/10/17 04:30 04/10/17 04:32 DC 04/10/17 05:00 4 MG ECG Rate (beats per minute): 74 Rhythm: normal sinus Findings: T-wave inversion (Lateral), no acute ischemic change, no ectopy Comparison ECG Date: 03/11/17 Change: no significant change ED Course 0246: The patient was evaluated in room A3. A complete history and physical exam was performed. 0420: Ordered Dextrose 50 ml IV. 0425: I reevaluated the patient and he is still nauseous and vomiting. He states that he cannot drink orange juice due to nausea. I discussed the exam findings with him and I discussed the treatment plan. He verbalized complete understanding and agreement. He will be evaluated for further treatment. 0430: Ordered Zofran Inj 4 mg IV. 0520: I discussed the patient's case with Dr. Jon [facility]. He will evaluate the patient for further treatment. Medical Decision Differential: Sepsis, Infectious (UTI/Pneumonia/Meningitis/etc), Metabolic/ Electrolyte Abnormality, Cardiac, Hepatic, Endocrine, Toxicologic, Neurologic, amongst other pathologies entertained. Medication Reconciliation: I attest that I have personally reviewed the patient 's current medication list. Blood pressure screening: Patient was found to have an elevated blood pressure and will be monitored by the hospitalist for further treatment. 46 yr old non-compliant diabetic with host of other comorbidities including previous PEs. He is not acutely sob, nor hypoxic, nor do symptoms go with PE thus I do not feel this is PE, plus he does state he has been taking his xarelto. BG is quite low and even after total 2 amps D50 can not keep glucose elevated. Drank some OJ than started vomiting again. I suspect he will not do well if discharged given persistent hypoglycemia. LFTs elevated though actually improved from normal. US RUQ with questionable GB findings though non- specific. Discussed with hospitalist who will bring him in with plan for HIDA scan later. He is not actively septic nor does he have surgical/peritonitis abdomen. EKG unchanged from previous and Trop negative. Consults Time Called: [phone] Consulting Physician: ASIF Rodas Returned Call: [phone] I discussed the patient's case with ASIF Rodas. He will evaluate the patient for further treatment. Impression Primary Impression: Hypoglycemia Additional Impression: Intractable vomiting Scribe Attestation The scribe's documentation has been prepared under my direction and personally reviewed by me in its entirety. I confirm that the note above accurately reflects all work, treatment, procedures, and medical decision making performed by me. Departure Information Dispostion Being Evaluated By Hospitalist Referrals Edgardo Azevedo D.O. (PCP) Problem Qualifiers
[2017-04-10 04:26] LABS: HEMATOCRIT 40.4 % (42-52); MEAN CELL VOLUME 89.6 fL (80-100); MEAN CORPUSCULAR HEMOGLOBIN 30.2 pg (25-34); MEAN CORPUSCULAR HGB CONC 33.7 g/dl (32-36); MEAN PLATELET VOLUME 12.9 fL (7.4-10.4); PLATELET COUNT 160 K/uL (130-400); RED BLOOD COUNT 4.51 M/uL (4.7-6.1); WHITE BLOOD COUNT 6.62 K/uL (4.8-10.8)
[2017-04-10 04:29] LABS: INR 1.1 (0.9-1.1); PARTIAL THROMBOPLASTIN RATIO 1.1
[2017-04-10] MEDS ORDERED: ONDANSETRON INJ 2 MG/ML 2 ML VIAL IV STA (04:30)
[2017-04-10] MEDS ORDERED: CIPROFLOXACIN 400MG / 200ML D5W IV STA (05:26)
[2017-04-10 05:27] LABS: BASO % 0.3 %; BASO ABS # 0.02 K/uL (0-0.2); COMPLETE YES; EOS % 2.3 %; IG% 0.2 %; LARGE PLATELETS 1+; LYMPH % 50.5 %; LYMPH ABS # 3.34 K/uL (1.2-3.4); MONO % 5.7 %
[2017-04-10] MEDS ORDERED: PROMETHAZINE HCL INJ 25 MG in SODIUM CHLORIDE 0.9% 50ML 50 ML IV PRN (05:30)
[2017-04-10] MEDS ORDERED: DEXTROSE 50% 50 ML SYR IV PRN (05:30)
[2017-04-10] MEDS ORDERED: FLUTICASONE PROPIONATE NA SPR 16 GM BTL NAE PRN (05:30)
[2017-04-10] MEDS ORDERED: GLUCOSE 10 TABS/TUBE PO PRN (05:30)
[2017-04-10] MEDS ORDERED: GLUCAGON FOR INJ 1 MG VIAL SQ PRN (05:30)
[2017-04-10] MEDS ORDERED: ONDANSETRON INJ 2 MG/ML 2 ML VIAL IV PRN (05:30)
[2017-04-10] MEDS ORDERED: DiphenhydrAMINE HCL 50 MG/ML VIAL IV PRN ×2 (05:30)
[2017-04-10] MEDS ORDERED: GLUCOSE 40% GEL 15 GM TUBE PO PRN (05:30)
[2017-04-10] MEDS ORDERED: IV FLUIDS COMPLETED PRN (05:30)
--- NOTE | 2017-04-10 05:51 | History and Physical ---
History & Physical Date & Time of Service: Apr 10, 2017 at 05:35 Chief Complaint: Extreme Pain, Low Sugar, Diabetic Primary Care Physician: Edgardo Azevedo D.O. History of Present Illness Source: patient, hospital records The patient is a 46-year-old male who presents emergency department with complaint of several days of persistent vomiting. He also reports that he ran out of his insulin earlier in the day today, that his last blood glucose testing was 289 earlier this evening, and that it feels like his blood sugar dropped this evening. He also complains of chest pain, shortness of breath, abdominal pain, dizziness and fatigue. He has not had any recent travels or any sick contacts. His most recent hospitalizations at [facility] are from February 24 to February 27, March 04 to March 07, and March 10 to March 11. Past Medical/Surgical History Medical Problems: (1) BRIDGETTE (acute kidney injury) Status: Resolved (2) Anxiety Status: Chronic (3) Blood clot in vein Status: Resolved (4) Chest pain Status: Resolved (5) Chest pain Status: Resolved (6) Chest wall pain Status: Resolved (7) CKD (chronic kidney disease), stage III Status: Chronic (8) Costochondritis Status: Chronic (9) Depression Status: Chronic (10) Elevated CK Status: Chronic (11) Elevated CK Status: Resolved (12) Elevated CPK Status: Resolved (13) Essential hypertension Status: Chronic (14) GERD (gastroesophageal reflux disease) Status: Chronic (15) Hemoptysis Status: Resolved (16) History of esophageal ulcer Permanent Comment: on EGD 06/23/2014 Status: Chronic (17) History of pleural effusion Status: Resolved (18) Hx of pulmonary embolus Status: Chronic (19) Hyperglycemia Status: Resolved (20) Hyperlipidemia Status: Chronic (21) Hypertension Status: Chronic (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 (23) Pharyngitis Status: Resolved (24) Pleuritic chest pain Status: Resolved (25) Prediabetes Status: Chronic (26) Substernal chest pain Status: Resolved (27) Suspected pulmonary embolism Status: Resolved Surgical Problems: (1) H/O colonoscopy Status: Chronic (2) H/O esophagogastroduodenoscopy Permanent Comment: [id number]- esophageal ulcer 06/24/2014- bleeding esophageal ulcer 08/29/2014- Grade B reflux esophagitis 11/21/2014- mild-moderate inflammation Status: Chronic (3) History of muscle biopsy Status: Chronic (4) History of rectal surgery Status: Chronic (5) S/P cardiac catheterization Permanent Comment: 2012- normal coronary arteries Status: Chronic Family History Blood clots FH: brain aneurysm MOTHER (mother, age 32) Social History Smoking Status: Never Smoker Smokeless Tobacco Use: No Alcohol Use: none Drug Use: none Marital Status: single Housing status: lives with family Occupational Status: disabled Immunizations History of Influenza Vaccine: Yes Influenza Vaccine Date: Jul 18, 2013 History of Tetanus Vaccine?: 2008 Tetanus Immunization Date: Aug 21, 2009 History of Pneumococcal: No History of Hepatitis B Vaccine: No Multi-Drug Resistant Organisms History of MDRO: No Allergies Coded Allergies: Iodine (Verified Allergy, Severe, THROAT SWELLING, 03/10/17) 02/18/13: patient denies IV contrast allergy Patient has been pre-treated in the past with methylprednisolone and diphenhydramine without incident following IV dye administration. Shellfish (Verified Allergy, Severe, THROAT SWELLING, 03/10/17) Iodinated Diagnostic Agents (Verified Allergy, Unknown, swelling, 03/10/17) Plasma, Human (Verified Allergy, Unknown, ANAPHYLAXIS, 03/10/17) Acetaminophen (Verified Adverse Reaction, Unknown, GI ISSUES, 03/10/17) Hydrocodone (Verified Adverse Reaction, Unknown, GI ISSUES, 03/10/17) Home Medications Scheduled Alprazolam (Xanax), 1 MG PO TID Escitalopram (Lexapro), 10 MG PO DAILY Escitalopram Oxalate (Lexapro), 20 MG PO DAILY Insulin Aspart (Novolog Flexpen), 12 UNITS SC ACHS Insulin Glargine (Lantus Solostar), 50 UNITS SQ QAM Metformin Ext Rel (Glucophage Ext Rel), 500 MG PO DAILY Methylphenidate (Ritalin), 20 MG PO BID Metoprolol Succ (Toprol Xl) (Toprol-Xl ), 150 MG PO DAILY Rivaroxaban (Xarelto), 20 MG PO DAILY Zolpidem Tartrate (Ambien), 10 MG PO HS Scheduled PRN Cyclobenzaprine Hcl (Flexeril), 10 MG PO TID PRN for SPASMS Fluticasone Propionate (Nasal) (Flonase Allergy Relief), 2 SPRAYS WALDEMAR DAILY PRN for ALLERGIC REACTION Oxycodone Ir (Roxicodone Ir), 10 MG PO Q4H PRN for Severe Pain Review of Systems The patient denies lower extremity swelling, sore throat, fevers, chills, sweats, blood in urine or stool, dysuria, urinary frequency or urgency, memory loss, rash, abnormal bruising or bleeding, imbalance, focal weakness, numbness or tingling in arms or legs, arthralgias or myalgias, back or neck pain, night sweats. The review of systems is otherwise negative other than for that already noted above, and at least 10 systems have been reviewed. Physical Exam Vital Signs Date Time Temp Pulse Resp B/P (MAP) Pulse Ox O2 Delivery O2 Flow Rate FiO2 04/10/17 02:50 74 The patient is awake, well-developed and adequately nourished, alert and oriented 3, normocephalic and atraumatic, lying in bed and in no acute distress. HEENT--PERRL, EOMI, mucous membranes and oropharynx dry. Neck--supple, no JVD or bruits, thyroid normal, trachea midline, no adenopathy. Heart--normal S1 and S2, no extra beats, no murmurs, rubs or gallops. Lungs--clear bilaterally but diminished throughout, no respiratory distress, no accessory muscle use. Abdomen--normal bowel sounds and soft, nontender and nondistended, no hernias or masses, no organomegaly. Extremities--no cyanosis, clubbing or edema. There are good distal pulses b/l. Dermatologic--normal skin turgor, normal color, warm and dry, no abnormal lymph nodes, no rash. Neurologic--cranial nerves II through XII grossly intact. Rheumatologic--deferred Psychiatric--normal affect. Diagnostics Laboratory Results Results Past 24 Hours Test 04/10/17 02:50 04/10/17 04:19 04/10/17 04:58 Range/Units White Blood Count 6.62 4.8-10.8 K/uL Red Blood Count 4.51 4.7-6.1 M/uL Hemoglobin 13.6 14.0-18.0 g/dL Hematocrit 40.4 42-52 % Mean Corpuscular Volume 89.6 80-100 fL Mean Corpuscular Hemoglobin 30.2 25-34 pg Mean Corpuscular Hemoglobin Concent 33.7 32-36 g/dl Platelet Count 160 130-400 K/uL Mean Platelet Volume 12.9 7.4-10.4 fL Neutrophils (%) (Auto) 41.0 % Lymphocytes (%) (Auto) 50.5 % Monocytes (%) (Auto) 5.7 % Eosinophils (%) (Auto) 2.3 % Basophils (%) (Auto) 0.3 % Neutrophils # (Auto) 2.72 1.4-6.5 K/uL Lymphocytes # (Auto) 3.34 1.2-3.4 K/uL Monocytes # (Auto) 0.38 0.11-0.59 K/uL Eosinophils # (Auto) 0.15 0-0.5 K/uL Basophils # (Auto) 0.02 0-0.2 K/uL RDW Standard Deviation 45.4 36.4-46.3 fL RDW Coefficient of Variation 14.0 11.5-14.5 % Immature Granulocyte % (Auto) 0.2 % Immature Granulocyte # (Auto) 0.01 0.00-0.02 K/uL Large Platelets 1+ Prothrombin Time 12.0 9.0-12.0 SECONDS Prothromb Time International Ratio 1.1 0.9-1.1 Activated Partial Thromboplast Time 28.9 21.0-31.0 SECONDS Partial Thromboplastin Ratio 1.1 Sodium Level 146 136-145 mmol/L Potassium Level 3.1 3.5-5.1 mmol/L Chloride Level 111 98-107 mmol/L Carbon Dioxide Level 24 21-32 mmol/L Anion Gap 11.0 3-11 mmol/L Blood Urea Nitrogen 12 7-18 mg/dl Creatinine 1.50 0.60-1.40 mg/dl Estimated GFR () 64.7 Estimated GFR (Non- 55.8 BUN/Creatinine Ratio 7.9 10-20 Random Glucose 61 70-99 mg/dl Calcium Level 9.0 8.5-10.1 mg/dl Total Bilirubin 0.3 0.2-1 mg/dl Direct Bilirubin < 0.1 0-0.2 mg/dl Aspartate Amino Transf (AST/SGOT) 175 15-37 U/L Alanine Aminotransferase (ALT/SGPT) 247 12-78 U/L Alkaline Phosphatase 126 45-117 U/L Total Protein 8.0 6.4-8.2 gm/dl Albumin 3.5 3.4-5.0 gm/dl Lipase 316 73-393 U/L Bedside Glucose 46 85 70-99 mg/dl Diagnostic Radiology Gallbladder ultrasound: Fatty liver, biliary sludge, common bile duct at top normal of 6 mm, gallbladder wall thickening at upper limit of normal. Impression Assessment and Plan Intractable nausea, vomiting and abdominal pain--the patient will be admitted to the medical surgical floor and will be kept nothing by mouth except essential medications. His gallbladder ultrasound is somewhat abnormal, with abnormal liver enzymes, and will therefore order a HIDA scan with gallbladder ejection fraction. Start on Cipro 400 mg IV every 12 hours with first dose now. We'll follow CBC with differential, BMP, liver function and magnesium levels. Insulin-requiring Diabetes mellitus--patient reports that he ran out of insulin earlier in the day. He is quite hypoglycemic in the emergency department with a blood sugar of 46, requiring amps of D50 bolus pushes IV. There is question as to whether the patient intentionally or inadvertently took too much insulin and/or metformin. We'll hold his Lantus 50 units subcutaneous every morning, NovoLog 12 units subcutaneous before meals and at bedtime, and metformin 500 mg by mouth daily. We'll place on Accu-Cheks before meals and at bedtime with NovoLog coverage. He'll be placed on D5 1/2 NSS with KCl 20 mEq at 100 mils per hour. Hypertension/renal insufficiency/hypokalemia/hypernatremia--IV fluids as noted above. Follow serial BMP and magnesium levels. Change metoprolol succinate from 150 mg by mouth daily to 50 mg by mouth every 8 hours with hold parameters. Pulmonary embolism/DVT history--hold Xarelto 20 mg by mouth daily for now, in the event of an upcoming procedure. Anxiety/depression--continue alprazolam 1 mg by mouth 3 times a day, and hold Lexapro 30 mg by mouth daily for now. Attention deficit--hold Ritalin 20 mg by mouth twice a day. Level of Care Med/Surg Advanced Directives Existing Advance Directive: No Existing Living Will: No Existing Power of Back Grinder: No Resuscitation Status FULL RESUSCITATION VTE Prophylaxis VTE Risk Assessment Done? Y/N: Yes Risk Level: Moderate Given or contraindicated: Other Anticoagulation (Xarelto)
[2017-04-10] MEDS ORDERED: D5W AND 1/2NSS + 20MEQ KCL 1,000 ML IV ONE (06:00)
[2017-04-10 06:35] VITALS: BP 118/74; PULSE 69; TEMP 36.8; O2SAT 96; BMI 39.0
--- NOTE | 2017-04-10 07:17 | DIAGNOSTIC IMAGING REPORT ---
ULTRASOUND RIGHT UPPER QUADRANT ABDOMEN CLINICAL HISTORY: Right upper quadrant abdominal pain.. COMPARISON STUDY: Abdominal ultrasound dated 03/06/2017. TECHNIQUE: Real-time, grayscale, and color flow sonography of the right upper quadrant of the abdomen was performed. Images are reviewed in the transverse and longitudinal planes. FINDINGS: Liver: The liver is enlarged and demonstrates heterogeneously increased echotexture consistent with severe hepatic steatosis. Note that this degrades acoustic penetration of the liver. Fatty sparing is seen adjacent to the gallbladder fossa. There is no intrahepatic biliary ductal dilatation. The main portal vein is patent. Gallbladder: The gallbladder is partially contracted and normal in appearance. Minimal biliary sludge is questioned. No gallstones are identified. There is no gallbladder wall thickening or pericholecystic fluid. A sonographic Blair's sign is reportedly absent. The common bile duct measures up to 0.5 cm in diameter. Pancreas: Not well visualized due to overlying bowel gas. Right kidney: Survey images of the right kidney demonstrate normal size and echotexture. There is no hydronephrosis. Ascites: None. IMPRESSION: 1. No acute sonographic abnormality is identified. No shadowing gallstones are seen. 2. Hepatomegaly and severe hepatic steatosis. Electronically signed by: Kendall Dee M.D. 04/10/2017 7:16 AM Dictated Date/Time: 04/10/2017 7:14 AM
--- NOTE | 2017-04-10 07:58 | DIAGNOSTIC IMAGING REPORT ---
CHEST ONE VIEW PORTABLE CLINICAL HISTORY: CHEST PAIN dyspnea COMPARISON STUDY: 03/11/2017 FINDINGS: Mild stable cardiomegaly. Diaphragms smooth. Lungs are clear. IMPRESSION: Mild stable cardiomegaly. Otherwise negative study Electronically signed by: Michael Cabrera M.D. 04/10/2017 7:57 AM Dictated Date/Time: 04/10/2017 7:56 AM
[2017-04-10 08:00] VITALS: O2SAT 96
[2017-04-10] MEDS: CIPROFLOXACIN / D5W 400 MG in PREMIXED IN D5W 200 ML IV SCH ×2 (08:02→19:45)
[2017-04-10] MEDS: METOPROLOL SUCC 50MG EXT REL TAB PO SCH ×3 (08:03→20:41)
[2017-04-10] MEDS: ALPRAZOLAM 0.5 MG TAB PO SCH ×3 (08:13→20:41)
[2017-04-10] MEDS ORDERED: SODIUM CHLORIDE 0.9% IV ONE (10:15)
[2017-04-10] MEDS ORDERED: SINCALIDE IV ONE (10:15)
[2017-04-10 11:39] LABS: ISTAT CREATININE 1.4 mg/dl (0.6-1.3); ISTAT HEMOGLOBIN 14.3 g/dl (14.0-18.0); ISTAT IONIZED CALCIUM 1.16 mmol/l (1.12-1.32)
--- NOTE | 2017-04-10 11:59 | DIAGNOSTIC IMAGING REPORT ---
NUCLEAR MEDICINE HEPATOBILIARY SCAN WITH EJECTION FRACTION HISTORY: Pain. Nausea. ABNORMAL Lift's COMPARISON: None. TECHNIQUE: Immediately following the intravenous administration of 5.8 mCi Tc-99m Choletec, dynamic anterior abdominal imaging pre/post 2.76 mcg of Kinevac was performed. FINDINGS: Uniform hepatic accumulation. Normal visualization of the biliary ductal system and gallbladder within 15 minutes. Small bowel activity is somewhat delayed. The gallbladder ejection fraction following administration of Kinevac was 85%. Small bowel activity is unremarkable. % (normal >35%). IMPRESSION: 1. No evidence for cystic duct obstruction. 2. Gallbladder ejection fraction calculated to be 85% %. 3. Slight delay in isotope transit to the small bowel which may indicate a component of mild distal common duct sphincter dysfunction Electronically signed by: Michael Cabrera M.D. 04/10/2017 11:58 AM Dictated Date/Time: 04/10/2017 11:45 AM
[2017-04-10] MEDS: INSULIN ASPART 100 UNITS/ML 3 ML PEN SC SCH ×2 (13:30→17:37)
[2017-04-10 15:11] VITALS: BP 132/82; PULSE 68; TEMP 36.9; O2SAT 96
--- NOTE | 2017-04-10 15:16 | Medical Student: [facility] ---
Med Student Progress Note Date of Service Apr 10, 2017. Subjective Pt evaluation today including: conversation w/ patient, chart review, lab review PO Intake: NPO 46 year old male with a history of GERD, HTN, and DM presents with several days of vomiting. Along with that he complains of chest pain, shortness of breath, abdominal pain, dizziness, and fatigue. He says that his chest pain is in the middle of his chest and is constantly there. He feels both the chest pain and shortness of breath at rest. He says that his abdominal pain is all over and diffuse. He also recently ran out of his insulin and his last blood sugar was 289. He was recently hospitalized at [facility] 3 times during the month of February 2017 for diabetic complications. Review of Systems Constitutional: + fatigue, No fever, No chills Eyes: No worsening of vision, No eye pain, No redness, No discharge ENT: No hearing loss, No tinnitus Respiratory: + shortness of breath Cardiac: + chest pain Abdomen: + pain, No nausea, No vomiting Musculoskeletal: No swelling Objective Vital Signs Date Time Temp Pulse Resp B/P (MAP) Pulse Ox O2 Delivery O2 Flow Rate FiO2 04/10/17 08:00 96 Room Air 04/10/17 06:35 36.8 69 18 118/74 96 Room Air 04/10/17 02:50 74 Physical Exam General Appearance: WD/WN, no apparent distress Eyes: bilateral eyes PERRL ENT: normal ENT inspection, hearing grossly normal, pharynx normal Neck: no adenopathy, no JVD, trachea midline Respiratory/Chest: lungs clear, normal breath sounds, no respiratory distress, no accessory muscle use, + pertinent finding (chest tenderness along the sternal area upon palpation) Cardiovascular: regular rate, rhythm, no edema, no gallop, no JVD, no murmur Abdomen: normal bowel sounds, soft, no organomegaly, no pulsatile mass, + tenderness (diffuse tenderness) Extremities: normal inspection, no pedal edema Neurologic/Psychiatric: alert, oriented x 3 Skin: normal color Laboratory Results Last 24 Hours Test 04/10/17 02:50 04/10/17 03:00 04/10/17 04:19 04/10/17 04:58 White Blood Count 6.62 K/uL Red Blood Count 4.51 M/uL Hemoglobin 13.6 g/dL Hematocrit 40.4 % Mean Corpuscular Volume 89.6 fL Mean Corpuscular Hemoglobin 30.2 pg Mean Corpuscular Hemoglobin Concent 33.7 g/dl Platelet Count 160 K/uL Mean Platelet Volume 12.9 fL Neutrophils (%) (Auto) 41.0 % Lymphocytes (%) (Auto) 50.5 % Monocytes (%) (Auto) 5.7 % Eosinophils (%) (Auto) 2.3 % Basophils (%) (Auto) 0.3 % Neutrophils # (Auto) 2.72 K/uL Lymphocytes # (Auto) 3.34 K/uL Monocytes # (Auto) 0.38 K/uL Eosinophils # (Auto) 0.15 K/uL Basophils # (Auto) 0.02 K/uL RDW Standard Deviation 45.4 fL RDW Coefficient of Variation 14.0 % Immature Granulocyte % (Auto) 0.2 % Immature Granulocyte # (Auto) 0.01 K/uL Large Platelets 1+ Prothrombin Time 12.0 SECONDS Prothromb Time International Ratio 1.1 Activated Partial Thromboplast Time 28.9 SECONDS Partial Thromboplastin Ratio 1.1 Sodium Level 146 mmol/L Potassium Level 3.1 mmol/L Chloride Level 111 mmol/L Carbon Dioxide Level 24 mmol/L Anion Gap 11.0 mmol/L 19.0 mmol/L Blood Urea Nitrogen 12 mg/dl Creatinine 1.50 mg/dl Estimated GFR () 64.7 Estimated GFR (Non- 55.8 BUN/Creatinine Ratio 7.9 Random Glucose 61 mg/dl Calcium Level 9.0 mg/dl Total Bilirubin 0.3 mg/dl Direct Bilirubin < 0.1 mg/dl Aspartate Amino Transf (AST/SGOT) 175 U/L Alanine Aminotransferase (ALT/SGPT) 247 U/L Alkaline Phosphatase 126 U/L Total Protein 8.0 gm/dl Albumin 3.5 gm/dl Lipase 316 U/L Bedside Hemoglobin 14.3 g/dl Bedside Hematocrit 42 % Bedside Sodium 145 mEq/L Bedside Potassium 3.1 mEq/L Bedside Chloride 107 mEq/L Bedside Total CO2 22 mEq/l Bedside Blood Urea Nitrogen 11 mg/dl Bedside Creatinine 1.4 mg/dl Bedside Glucose (other) 64 mg/dl Bedside Ionized Calcium (Howard) 1.16 mmol/l Bedside Glucose 46 mg/dl 85 mg/dl Test 04/10/17 05:43 04/10/17 06:39 04/10/17 11:52 04/10/17 12:19 Bedside Glucose 60 mg/dl 127 mg/dl 47 mg/dl 136 mg/dl Medications Current Inpatient Medications Medications (Trade) Dose Ordered Sig/Roxie Route Start Time Stop Time Status Last Admin Dose Admin Alprazolam (Xanax Tab) 1 mg TID PO 04/10/17 08:00 05/10/17 08:59 04/10/17 08:13 1 MG Fluticasone Propionate (Flonase Nasal [place]) 2 sprays DAILY PRN WALDEMAR 04/10/17 05:30 05/10/17 05:29 Metoprolol Succinate (Toprol Xl Tab) 50 mg Q8 PO 04/10/17 07:00 05/10/17 06:59 04/10/17 08:03 50 MG Ondansetron HCl (Zofran Inj) 4 mg Q6H PRN IV 04/10/17 05:30 05/10/17 05:29 Insulin Aspart (novoLOG ASPART) SLIDING SCALE If C... Q6 SC 04/10/17 12:00 05/10/17 11:59 04/10/17 13:30 6 UNITS Glucose (Glucose 40% Gel) UD PRN PO 04/10/17 05:30 05/10/17 05:29 Glucose (Glucose Chew Tab) 1 tabs UD PRN PO 04/10/17 05:30 05/10/17 05:29 Dextrose (Dextrose 50% 50ML Syringe) 50 ml UD PRN IV 04/10/17 05:30 05/10/17 05:29 04/10/17 12:02 50 ML Glucagon (Glucagon Inj) 1 mg UD PRN SQ 04/10/17 05:30 05/10/17 05:29 Potassium Chloride/Dextrose/ Sod Cl 1,000 ml @ 100 mls/hr Q10H IV 04/10/17 16:00 05/10/17 15:59 Diphenhydramine HCl (Benadryl Inj) 25 mg Q4H PRN IV 04/10/17 05:30 05/10/17 05:29 Diphenhydramine HCl (Benadryl Inj) 50 mg Q6H PRN IV 04/10/17 05:30 05/10/17 05:29 Ciprofloxacin/ Dextrose 400 mg/ Prmx 200 ml @ 100 mls/hr Q12H IV 04/10/17 07:00 04/20/17 06:59 04/10/17 08:02 100 MLS/HR Miscellaneous (Iv Fluids Completed) 1 ea PRN PRN N/A 04/10/17 05:30 04/10/18 05:29 Promethazine HCl 25 mg/Sodium Chloride 51 ml @ 204 mls/hr Q6H PRN IV 04/10/17 05:30 05/10/17 05:29 Potassium Chloride/Dextrose/ Sod Cl 1,000 ml @ 100 mls/hr Q10H ONCE IV 04/10/17 06:00 04/10/17 15:59 04/10/17 08:08 100 MLS/HR Assessment and Plan Problems Chest pain Hypoglycemia Intractable vomiting Assessment and Plan: 46 year old male who presented to the ED with persistent vomiting and diffuse abdominal pain. He has a history of DM II, HTN, Costochondritis, Esophageal Ulcers, GERD, PE, Depression and Anxiety. DDx includes: cholecystitis, choledocholithiasis, pancreatitis, and gastroparesis Intractable vomiting & Abdominal Pain To investigate the cause of his vomiting, abdominal pain and elevated LFTs, an abdominal ultrasound was done and showed: * Hepatic steatosis/Fatty liver * Biliary Sludge * Common Bile Duct dilation * Gall bladder wall thickening To further investigate the findings from the ultrasound and rule out cholecystitis, a HIDA scan was done. The HIDA scan showed no cholecystitis but there was a slowing of the dye when moving through the CBD. There is a concern for possible bile duct obstruction. Plan: Based on the results from the HIDA scan, a GI consult was ordered. Hypoglycemia Although insulin had not been administered, labs low levels glucose. It is possible that he may have not taken his insulin and metformin properly. Plan: Stop diabetes medications (Insulin and Metformin), administer IV Fluids with Dextrose, and monitor glucose levels. Chest Pain Chest x-ray came back with clear lungs and midstable cardiomegaly. It is possible that this is a flare up of his costochondritis. Hypokalemia & Hypernatremia Administer IV fluids with K+ and monitor electrolytes. Depression & Anxiety Hold Lexapro, continue alazopram ADHD Hold Ritalin Continued [facility] stay due to: other (GI evaluation )
[2017-04-10 15:19] VITALS: Ht 188 cm; Wt 137.9 kg
[2017-04-10] MEDS: D5W AND 1/2NSS + 20MEQ KCL 1,000 ML IV SCH (15:24)
--- NOTE | 2017-04-10 16:47 | Anesthesiology Progress Note ---
Anesthesia Progress Note Date of Service Apr 10, 2017. Progress Notes Pt is scheduled for ERCP on 04/11/17. Pt is 46M h/o PE, DM, CKD, GERD, obesity, anxiety/depression, ADHD who recently presented with nausea/vomiting and elevated liver enzymes. Pt has good functional status. Labs and studies have been reviewed. He has mild hypokalemia with a potassium of 3.1. He recently received potassium. Pt is an acceptable candidate for general anesthesia. Consent was obtained from the patient. All questions/concerns were addressed.
--- NOTE | 2017-04-10 17:46 | Family Medicine Progress Note ---
Progress Note Date of Service Apr 10, 2017. Subjective Pt evaluation today including: conversation w/ patient, physical exam, chart review, lab review Pain: abdominal pain Voiding: no voiding problems Patient was seen at the bedside. When I enter the room, patient was sleeping comfortably. He states that he doesn't feel nauseated anymore and denies vomiting this morning. Continues to complain of generalized abdominal pain radiating to his chest. Denies SOB. Constitutional: No fever Respiratory: No cough, No sputum, No wheezing, No shortness of breath Cardiovascular: + chest pain (generalized chest pain), No orthopnea, No edema Abdomen: + pain (generalized abdominal pain), No nausea, No vomiting, No diarrhea, No constipation, No GI bleeding Male : No dysuria Skin: No rash Medications Current Inpatient Medications Medications (Trade) Dose Ordered Sig/Roxie Route Start Time Stop Time Status Last Admin Dose Admin Alprazolam (Xanax Tab) 1 mg TID PO 04/10/17 08:00 05/10/17 08:59 04/10/17 15:23 1 MG Fluticasone Propionate (Flonase Nasal [place]) 2 sprays DAILY PRN WALDEMAR 04/10/17 05:30 05/10/17 05:29 Metoprolol Succinate (Toprol Xl Tab) 50 mg Q8 PO 04/10/17 07:00 05/10/17 06:59 04/10/17 15:23 50 MG Ondansetron HCl (Zofran Inj) 4 mg Q6H PRN IV 04/10/17 05:30 05/10/17 05:29 Insulin Aspart (novoLOG ASPART) SLIDING SCALE If C... Q6 SC 04/10/17 12:00 05/10/17 11:59 04/10/17 13:30 6 UNITS Glucose (Glucose 40% Gel) UD PRN PO 04/10/17 05:30 05/10/17 05:29 Glucose (Glucose Chew Tab) 1 tabs UD PRN PO 04/10/17 05:30 05/10/17 05:29 Dextrose (Dextrose 50% 50ML Syringe) 50 ml UD PRN IV 04/10/17 05:30 05/10/17 05:29 04/10/17 12:02 50 ML Glucagon (Glucagon Inj) 1 mg UD PRN SQ 04/10/17 05:30 05/10/17 05:29 Potassium Chloride/Dextrose/ Sod Cl 1,000 ml @ 100 mls/hr Q10H IV 04/10/17 16:00 05/10/17 15:59 04/10/17 15:24 100 MLS/HR Diphenhydramine HCl (Benadryl Inj) 25 mg Q4H PRN IV 04/10/17 05:30 05/10/17 05:29 Diphenhydramine HCl (Benadryl Inj) 50 mg Q6H PRN IV 04/10/17 05:30 05/10/17 05:29 Ciprofloxacin/ Dextrose 400 mg/ Prmx 200 ml @ 100 mls/hr Q12H IV 04/10/17 07:00 04/20/17 06:59 04/10/17 08:02 100 MLS/HR Miscellaneous (Iv Fluids Completed) 1 ea PRN PRN N/A 04/10/17 05:30 04/10/18 05:29 Promethazine HCl 25 mg/Sodium Chloride 51 ml @ 204 mls/hr Q6H PRN IV 04/10/17 05:30 05/10/17 05:29 Objective Vital Signs Date Time Temp Pulse Resp B/P (MAP) Pulse Ox O2 Delivery O2 Flow Rate FiO2 04/10/17 15:53 Room Air 04/10/17 15:11 36.9 68 18 132/82 (99) 96 Room Air 04/10/17 08:00 96 Room Air 04/10/17 06:35 36.8 69 18 118/74 96 Room Air 04/10/17 02:50 74 Physical Exam General Appearance: WD/WN, no apparent distress Neck: supple, trachea midline Respiratory/Chest: chest non-tender, lungs clear, normal breath sounds, no respiratory distress, no accessory muscle use Cardiovascular: regular rate, rhythm, no edema Abdomen: normal bowel sounds, soft, no pulsatile mass, + tenderness ( generalized tenderness on palpation) Extremities: non-tender, no pedal edema Neurologic/Psychiatric: alert, normal mood/affect, oriented x 3 Skin: normal color, warm/dry, no rash Laboratory Results Results Past 24 Hours Test 04/10/17 02:50 04/10/17 03:00 04/10/17 04:19 04/10/17 04:58 Range/Units White Blood Count 6.62 4.8-10.8 K/uL Red Blood Count 4.51 4.7-6.1 M/uL Hemoglobin 13.6 14.0-18.0 g/dL Hematocrit 40.4 42-52 % Mean Corpuscular Volume 89.6 80-100 fL Mean Corpuscular Hemoglobin 30.2 25-34 pg Mean Corpuscular Hemoglobin Concent 33.7 32-36 g/dl Platelet Count 160 130-400 K/uL Mean Platelet Volume 12.9 7.4-10.4 fL Neutrophils (%) (Auto) 41.0 % Lymphocytes (%) (Auto) 50.5 % Monocytes (%) (Auto) 5.7 % Eosinophils (%) (Auto) 2.3 % Basophils (%) (Auto) 0.3 % Neutrophils # (Auto) 2.72 1.4-6.5 K/uL Lymphocytes # (Auto) 3.34 1.2-3.4 K/uL Monocytes # (Auto) 0.38 0.11-0.59 K/uL Eosinophils # (Auto) 0.15 0-0.5 K/uL Basophils # (Auto) 0.02 0-0.2 K/uL RDW Standard Deviation 45.4 36.4-46.3 fL RDW Coefficient of Variation 14.0 11.5-14.5 % Immature Granulocyte % (Auto) 0.2 % Immature Granulocyte # (Auto) 0.01 0.00-0.02 K/uL Large Platelets 1+ Prothrombin Time 12.0 9.0-12.0 SECONDS Prothromb Time International Ratio 1.1 0.9-1.1 Activated Partial Thromboplast Time 28.9 21.0-31.0 SECONDS Partial Thromboplastin Ratio 1.1 Sodium Level 146 136-145 mmol/L Potassium Level 3.1 3.5-5.1 mmol/L Chloride Level 111 98-107 mmol/L Carbon Dioxide Level 24 21-32 mmol/L Anion Gap 11.0 19.0 16-25 mmol/L Blood Urea Nitrogen 12 7-18 mg/dl Creatinine 1.50 0.60-1.40 mg/dl Estimated GFR () 64.7 Estimated GFR (Non- 55.8 BUN/Creatinine Ratio 7.9 10-20 Random Glucose 61 70-99 mg/dl Calcium Level 9.0 8.5-10.1 mg/dl Total Bilirubin 0.3 0.2-1 mg/dl Direct Bilirubin < 0.1 0-0.2 mg/dl Aspartate Amino Transf (AST/SGOT) 175 15-37 U/L Alanine Aminotransferase (ALT/SGPT) 247 12-78 U/L Alkaline Phosphatase 126 45-117 U/L Total Protein 8.0 6.4-8.2 gm/dl Albumin 3.5 3.4-5.0 gm/dl Lipase 316 73-393 U/L Bedside Hemoglobin 14.3 14.0-18.0 g/dl Bedside Hematocrit 42 42-52 % Bedside Sodium 145 135-144 mEq/L Bedside Potassium 3.1 3.3-5.0 mEq/L Bedside Chloride 107 101-112 mEq/L Bedside Total CO2 22 24-31 mEq/l Bedside Blood Urea Nitrogen 11 7-18 mg/dl Bedside Creatinine 1.4 0.6-1.3 mg/dl Bedside Glucose (other) 64 70-99 mg/dl Bedside Ionized Calcium (Howard) 1.16 1.12-1.32 mmol/l Bedside Glucose 46 85 70-99 mg/dl Test 04/10/17 05:43 04/10/17 06:39 04/10/17 11:52 04/10/17 12:19 Range/Units Bedside Glucose 60 127 47 136 70-99 mg/dl Test 04/10/17 16:46 Range/Units Bedside Glucose 128 70-99 mg/dl Assessment and Plan This is a 46 y/o male with PMHx of DM, GERD, HTN, and PE presented to the hospital complaining of nausea, vomiting, and abdominal pain X2-3days. Lab works showed elevated LFTs. Patient was recently diagnosed with DM on his last admission in [facility] and started on insulin and metformin. * Nausea/Vomiting/Abdominal pain/elevated LFTs - This could be secondary to liver or gallbladder pathology (cholecystitis, viral hepatitis, hepatic steatosis, alcoholic cirrhosis) - Gallbladder US showed hepatomegaly and severe hepatic steatosis. No gallstones were noted - HIDA scan showed 1. no evidence for cystic duct obstruction, 2. Gallbladder ejection fraction calculated to be 85% %. 3. Slight delay in isotope transit to the small bowel which may indicate a component of mild distal common duct sphincter dysfunction - Given the abnormal finding on HIDA scan, MRCP ordered - pending - Will continue with Ciprofloxacin 400mg for now q12h - C/w D5 + 1/2 NSS + 20KCL @ 100mls/hr - GI consulted. * DMII - recently diagnosed - Patient was diagnosed with DM recently (about 3 wks ago) on his last admission in [facility] - Patient was hypoglycemic in ED (glucose level 46) requiring D50 bolus. Questionable whether patient intentionally or inadvertently took too much insulin. - Will continue to hold Lantus 50unit and metformin - start on sliding scale with NovoLog * HTN - Changed Metoprolol succinate from 150mg to 50mg q8h. *Electrolytes abnormalities - Patient has hypokalemia and hypernatremia - Will continue with the IVF with potassium - F/u on BMP tomorrow am * History of PE - Will continue to hold Xarelto 20mg for now given the upcoming procedure, Resume Xarelto after the procedure * Anxiety/Depression - C/w alprazolam 1mg QID - C/w to hold Lexapro 30mg *ADD - C/w to hold Ritalin 20mg * DVT Prophylaxis - Will continue to hold chemical prophylaxis given upcoming procedure. - SCDs Reviewed: Pt Seen/Exam by Me History nausea is better but continues to complain of abd pain Constitutional: denies: fever Respiratory: negative: short of breath Cardiovascular: denies chest pain Gastrointestinal/Abdominal: positive: abdominal pain General Appearance: no apparent distress Respiratory: lungs clear, no respiratory distress Cardiovascular: regular rate, rhythm Gastrointestinal: normal bowel sounds, soft, tenderness (? diffuse upper abdomen tenderness) Neurologic/Psychiatric: alert, oriented x 3 Skin Characteristics: warm/dry Assessment/Plan Resident Physician Supervision Note: I was present with Dr. Jimenez in bedside. I verified the hines history and physical , reviewed labs and image studies, discussed the case with the resident and agree with the findings and care plan.
--- NOTE | 2017-04-10 23:26 | DIAGNOSTIC IMAGING REPORT ---
MRCP CLINICAL HISTORY: Abnormal HIDA scan. Right upper quadrant pain, nausea and vomiting. COMPARISON STUDY: CT of the abdomen and pelvis March 24, 2016, right upper quadrant ultrasound and hepatobiliary scan April 10, 2017. TECHNIQUE: Utilizing a 1.5 [place] magnet, multiplanar, multi echo imaging of the upper abdomen was performed without IV contrast. FINDINGS: There is no intra or extrahepatic biliary ductal dilatation. Common bile duct measures 6 mm in caliber. No common bile duct calculi are identified. The course and caliber of the main pancreatic duct is normal. There is no peripancreatic infiltration or fluid. No gallstones are identified. Hepatomegaly and fatty infiltration of the liver is noted. Fatty infiltration is better appreciated on ultrasound performed earlier today. There is no abdominal adenopathy or ascites. Unenhanced images of the spleen, adrenal glands and kidneys are normal. There is no hydronephrosis. IMPRESSION: 1. No biliary ductal dilatation. 2. No choledocholithiasis. 3. Hepatomegaly and fatty infiltration of the liver. Electronically signed by: Lukas Duke M.D. 04/10/2017 11:25 PM Dictated Date/Time: 04/10/2017 11:19 PM
[2017-04-10] MEDS ORDERED: KETOROLAC TROMETHAMINE 30 MG/ML VIAL IV STA (23:57)
[2017-04-11 00:26] VITALS: BP 146/74; PULSE 78; TEMP 36.3; O2SAT 93
[2017-04-11] MEDS: INSULIN ASPART 100 UNITS/ML 3 ML PEN SC SCH ×3 (00:39→11:41)
[2017-04-11] MEDS: D5W AND 1/2NSS + 20MEQ KCL 1,000 ML IV SCH ×2 (00:49→11:40)
--- NOTE | 2017-04-11 05:43 | Gastrointestinal Consultation ---
Gastrointestinal Consultation Date of Consultation: Apr 10, 2017 Attending Physician: Dr John Consulting Physician: Yoel Werner MD Reason for Consultation: abnormal HIDA, abbnormal LFTs, N/V History of Present Illness Patient is a 46 year old male with several days of N/V RUQ abd pain.Pt has poorly controlled DM which is a new Dx by pt hx ( last few weeks). Pt hospitalized last year and found to have esophagitis and ulcer. Pt has had LFT elevations ( transaminases greater than alk phos) for at least one lear. + fatty liver suggested on imaging. Pt reports weight gain. No changes in BMs ( diarrhea, constipation, BRB or melena). Pt denies hematemesis/coffee emesis. No prior hx of liver disease. Past Medical/Surgical History Medical Problems: (1) Acute renal failure (ARF) Status: Acute (2) Anticoagulated by anticoagulation treatment Status: Acute (3) Anxiety Status: Chronic (4) Atypical chest pain Status: Acute (5) CKD (chronic kidney disease), stage III Status: Chronic (6) Contusion of left chest wall Status: Acute (7) Costochondritis Status: Chronic (8) Depression Status: Chronic (9) DKA (diabetic ketoacidoses) Status: Acute (10) Dyspnea Status: Acute (11) Elevated CK Status: Chronic (12) Epigastric abdominal pain Status: Acute (13) Essential hypertension Status: Chronic (14) GERD (gastroesophageal reflux disease) Status: Chronic (15) Headache Status: Acute (16) Hematemesis Status: Acute (17) History of esophageal ulcer Permanent Comment: on EGD 06/23/2014 Status: Chronic (18) History of pulmonary embolus (PE) Status: Acute (19) Hx of pulmonary embolus Status: Chronic (20) Hyperlipidemia Status: Chronic (21) Hypertension Status: Chronic (22) Hypoglycemia Status: Acute (23) Intractable vomiting Status: Acute (24) Lactic acidosis Status: Acute (25) Leg pain, left Status: Acute (26) Leg pain, right Status: Acute (27) Myositis Status: Acute (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 (29) Precordial chest pain Status: Acute (30) Prediabetes Status: Chronic (31) Right leg swelling Status: Acute Surgical Problems: (1) H/O colonoscopy Status: Chronic (2) H/O esophagogastroduodenoscopy Permanent Comment: [id number]- esophageal ulcer 06/24/2014- bleeding esophageal ulcer 08/29/2014- Grade B reflux esophagitis 11/21/2014- mild-moderate inflammation Status: Chronic (3) History of muscle biopsy Status: Chronic (4) History of rectal surgery Status: Chronic (5) S/P cardiac catheterization Permanent Comment: 2012- normal coronary arteries Status: Chronic Family History Blood clots FH: brain aneurysm MOTHER (mother, age 32) No history of chronic liver disease. No hx of CRC; otherwise FH non contributory Social History Smoking Status: Never Smoker Alcohol Use: occasionally Drug Use: none Marital Status: single Housing Status: lives alone Occupation Status: disabled Allergies Coded Allergies: Iodine (Verified Allergy, Severe, THROAT SWELLING, 03/10/17) 02/18/13: patient denies IV contrast allergy Patient has been pre-treated in the past with methylprednisolone and diphenhydramine without incident following IV dye administration. Shellfish (Verified Allergy, Severe, THROAT SWELLING, 03/10/17) Iodinated Diagnostic Agents (Verified Allergy, Unknown, swelling, 03/10/17) Plasma, Human (Verified Allergy, Unknown, ANAPHYLAXIS, 03/10/17) Acetaminophen (Verified Adverse Reaction, Unknown, GI ISSUES, 03/10/17) Hydrocodone (Verified Adverse Reaction, Unknown, GI ISSUES, 03/10/17) Current Medications Home Meds and Scripts Medications Dose Route/Sig Max Daily Dose Days Date Category Dose Instructions Xarelto (Rivaroxaban) 20 Mg Tab 20 Mg PO DAILY 04/10/17 Reported Roxicodone Ir (Oxycodone HCl) 5 Mg Tab 10 Mg PO Q4H PRN 04/10/17 Reported Glucophage Ext Rel (Metformin HCl) 500 Mg Tab 500 Mg PO DAILY 04/10/17 Reported Flexeril (Cyclobenzaprine Hcl) 10 Mg Tab 10 Mg PO TID PRN 04/10/17 Reported Lantus Solostar (Insulin Glargine) 100 Unit/Ml Inj 50 Units SQ QAM 04/10/17 Reported Novolog Flexpen (Insulin Aspart) 100 Units/Ml Inj 12 Units SC ACHS 30 03/11/17 Rx please be sure the pen capacity will be enough for one month Lexapro (Escitalopram Oxalate) 20 Mg Tab 20 Mg PO DAILY 08/23/16 Reported Flonase Allergy Relief (Fluticasone Propionate (Nasal)) 50 Mcg/Act Spr 2 Sprays WALDEMAR DAILY PRN 08/20/16 Reported Lexapro (Escitalopram Oxalate) 10 Mg Tab 10 Mg PO DAILY 08/20/16 Reported Toprol-Xl (Metoprolol Succinate) 100 Mg Tabcr 150 Mg PO DAILY 08/20/16 Reported Ritalin (Methylphenidate HCl) 20 Mg Tab 20 Mg PO BID 08/20/16 Reported Xanax (Alprazolam) 1 Mg Tab 1 Mg PO TID 08/20/16 Reported Ambien (Zolpidem Tartrate) 10 Mg Tab 10 Mg PO HS 08/20/16 Reported Review of Systems Constitutional: No see HPI, No fever, No chills, No sweats, No weight loss, No weakness, No fatigue, No problem reported Eyes: No see HPI, No worsening of vision, No eye pain, No redness, No discharge , No diplopia, No problem reported ENT: No see HPI, No hearing loss, No unusual epistaxis, No nasal symptoms, No sore throat, No tinnitus, No dental problems, No trouble swallowing, No pain on swallowing, No problem reported Respiratory: No see HPI, No cough, No sputum, No wheezing, No shortness of breath, No dyspnea on exertion, No dyspnea at rest, No hemoptysis, No problem reported Cardiac: No see HPI, No chest pain, No orthopnea, No PND, No edema, No claudication, No palpitations, No problem reported Abdomen: + see HPI, + pain, + nausea, + vomiting, + diarrhea, + constipation, + GI bleeding, + dysphagia, + odynophagia, + acolic stools, + jaundice, + dark urine, + problem reported Musculoskeletal: + see HPI, + joint pain, + muscle pain, + swelling, + calf pain, + problem reported Male : No see HPI, No dysuria, No urinary frequency, No incontinence, No nocturia more than once/night, No slowing stream, No hematuria, No sexual dysfunction, No problem reported Neuro: No see HPI, No memory loss, No paralysis, No weakness, No numbness/ tingling, No vertigo, No balance problems, No problem reported Psych: No see HPI, No depression symptoms, No anhedonism, No anxiety, No insomnia, No substance abuse, No problem reported Heme: + see HPI, + abnormal bleeding/bruising, + clotting problems, + swollen lymph nodes, + night sweats, + problem reported Physical Exam Date Time Temp Pulse Resp B/P (MAP) Pulse Ox O2 Delivery O2 Flow Rate FiO2 04/11/17 00:26 36.3 78 18 146/74 (98) 93 Room Air 04/11/17 00:00 Room Air 04/10/17 23:24 Room Air 04/10/17 15:53 Room Air 04/10/17 15:11 36.9 68 18 132/82 (99) 96 Room Air 04/10/17 08:00 96 Room Air 04/10/17 06:35 36.8 69 18 118/74 96 Room Air General Appearance: WD/WN, + mild distress Eyes: normal inspection, PERRL ENT: hearing grossly normal Neck: supple, no adenopathy Respiratory/Chest: chest non-tender, lungs clear, normal breath sounds, no respiratory distress Cardiovascular: regular rate, rhythm, no edema, no JVD, no murmur Abdomen: normal bowel sounds, soft, + tenderness Extremities: normal range of motion, non-tender, no pedal edema Neurologic/Psych: no motor/sensory deficits, alert, oriented x 3 Skin: normal color, warm/dry, no rash AAOx3 Nls1s2 Lungs CTA Abd soft ND, + obese, tender in RUQ without rebound -CCE no abdominal bruits no adenopathy, no thyromegaly rectal deferred. Stools Heme negative per labs Laboratory Results Test 04/10/17 02:50 04/10/17 03:00 04/10/17 16:46 04/11/17 00:31 White Blood Count 6.62 Red Blood Count 4.51 Hemoglobin 13.6 Hematocrit 40.4 Mean Corpuscular Volume 89.6 Mean Corpuscular Hemoglobin 30.2 Mean Corpuscular Hemoglobin Concent 33.7 Platelet Count 160 Mean Platelet Volume 12.9 Neutrophils (%) (Auto) 41.0 Lymphocytes (%) (Auto) 50.5 Monocytes (%) (Auto) 5.7 Eosinophils (%) (Auto) 2.3 Basophils (%) (Auto) 0.3 Neutrophils # (Auto) 2.72 Lymphocytes # (Auto) 3.34 Monocytes # (Auto) 0.38 Eosinophils # (Auto) 0.15 Basophils # (Auto) 0.02 RDW Standard Deviation 45.4 RDW Coefficient of Variation 14.0 Immature Granulocyte % (Auto) 0.2 Immature Granulocyte # (Auto) 0.01 Large Platelets 1+ Prothrombin Time 12.0 Prothrombin Time INR 1.1 PTT 28.9 Partial Thromboplastin Ratio 1.1 Sodium Level 146 Potassium Level 3.1 Chloride Level 111 Carbon Dioxide Level 24 Blood Urea Nitrogen 12 Creatinine 1.50 Estimated GFR () 64.7 Estimated GFR (Non- 55.8 BUN/Creatinine Ratio 7.9 Random Glucose 61 Calcium Level 9.0 Total Bilirubin 0.3 Direct Bilirubin < 0.1 Aspartate Amino Transferase (AST) 175 Alanine Aminotransferase (ALT) 247 Alkaline Phosphatase 126 Total Protein 8.0 Albumin 3.5 Lipase 316 POC Hemoglobin 14.3 POC Hematocrit 42 POC Sodium 145 POC Potassium 3.1 POC Chloride 107 POC Total CO2 22 Anion Gap 19.0 POC Blood Urea Nitrogen 11 POC Creatinine 1.4 POC Glucose 64 128 161 POC Ionized Calcium (Howard) 1.16 Test 04/11/17 04:44 White Blood Count Pending Red Blood Count Pending Hemoglobin Pending Hematocrit Pending Mean Corpuscular Volume Pending Mean Corpuscular Hemoglobin Pending Mean Corpuscular Hemoglobin Concent Pending Platelet Count Pending Prothrombin Time Pending Prothrombin Time INR Pending PTT Pending Partial Thromboplastin Ratio Pending Sodium Level Pending Potassium Level Pending Chloride Level Pending Carbon Dioxide Level Pending Anion Gap Pending Blood Urea Nitrogen Pending Creatinine Pending Estimated GFR () Pending Estimated GFR (Non- Pending BUN/Creatinine Ratio Pending Random Glucose Pending Calcium Level Pending Magnesium Level Pending Ferritin Pending Total Bilirubin Pending Direct Bilirubin Pending Aspartate Amino Transferase (AST) Pending Alanine Aminotransferase (ALT) Pending Alkaline Phosphatase Pending Total Protein Pending Albumin Pending [id number] Pending [id number] Pending [id number] Pending [id number] Pending Gamma Globulins Pending Prot Electrophor Monoclonal Peak 3 Pending Serum Monoclonal Protein Pending Serum Monoclonal Protein (2) Pending Protein Electrophoresis Interpret Pending [id number] Pending Ceruloplasmin Pending Serum Immunofixation Pending Total Protein (YAS) Pending Albumin (YAS) Pending Anti-Nuclear Antibody Screen Pending Anti-Mitochondrial Antibody Pending Hepatitis A Antibody Total Pending Hepatitis B Surface Antibody Pending Reported Home Medications Medications Dose Route/Sig Max Daily Dose Days Date Category Dose Instructions Xarelto (Rivaroxaban) 20 Mg Tab 20 Mg PO DAILY 04/10/17 Reported Roxicodone Ir (Oxycodone HCl) 5 Mg Tab 10 Mg PO Q4H PRN 04/10/17 Reported Glucophage Ext Rel (Metformin HCl) 500 Mg Tab 500 Mg PO DAILY 04/10/17 Reported Flexeril (Cyclobenzaprine Hcl) 10 Mg Tab 10 Mg PO TID PRN 04/10/17 Reported Lantus Solostar (Insulin Glargine) 100 Unit/Ml Inj 50 Units SQ QAM 04/10/17 Reported Novolog Flexpen (Insulin Aspart) 100 Units/Ml Inj 12 Units SC ACHS 30 03/11/17 Rx please be sure the pen capacity will be enough for one month Lexapro (Escitalopram Oxalate) 20 Mg Tab 20 Mg PO DAILY 08/23/16 Reported Flonase Allergy Relief (Fluticasone Propionate (Nasal)) 50 Mcg/Act Spr 2 Sprays WALDEMAR DAILY PRN 08/20/16 Reported Lexapro (Escitalopram Oxalate) 10 Mg Tab 10 Mg PO DAILY 08/20/16 Reported Toprol-Xl (Metoprolol Succinate) 100 Mg Tabcr 150 Mg PO DAILY 08/20/16 Reported Ritalin (Methylphenidate HCl) 20 Mg Tab 20 Mg PO BID 08/20/16 Reported Xanax (Alprazolam) 1 Mg Tab 1 Mg PO TID 08/20/16 Reported Ambien (Zolpidem Tartrate) 10 Mg Tab 10 Mg PO HS 08/20/16 Reported Results Past 24 Hours Test 04/10/17 05:43 04/10/17 06:39 04/10/17 11:52 04/10/17 12:19 Range/Units Bedside Glucose 60 127 47 136 70-99 mg/dl Test 04/10/17 16:46 04/11/17 00:31 04/11/17 04:44 Range/Units Bedside Glucose 128 161 70-99 mg/dl Last 24 Hours Test 04/10/17 04:58 04/10/17 05:43 04/10/17 06:39 04/10/17 11:52 Bedside Glucose 85 mg/dl 60 mg/dl 127 mg/dl 47 mg/dl Test 04/10/17 12:19 04/10/17 16:46 04/11/17 00:31 04/11/17 04:21 Bedside Glucose 136 mg/dl 128 mg/dl 161 mg/dl Impression Patient is a 46 year old male with poorly controlled and newly diagnosed DM, with N/V hx of LFT elevations and RUQ pain. HIDA with delayed distal CBD emptying although US is unrevealing for CBD dialtion or CBD stones. sludge in GB. DDX N/V due to poor gylcemic control, possible retained stones/sludge. Also with elevated CPK of unclear etiology Plan 1) recommend MRCP; if retained CBD stone or ductal dilation, ERCP recommended 2) for N/V- plan for EGD Friday with Dr Rangel if ERCP is not needed 3)source of persistently elevated LFT unclear(ALT/AST > alk phos, steatohepatitis, AIH or other chronic live disroder. Will add additional markers but if no evidence for bilary obstruction, then may need liver biopsy. DDx also need to exclude amyloid. 4) with new onset of DM, may need to consider cross sectional imaging of the pancreas to exclude malignancy especially in light of hypercoag state. ( pt on home anticoagulants) Further recs once MRCP available. Thank You marvin
[2017-04-11] MEDS: CIPROFLOXACIN / D5W 400 MG in PREMIXED IN D5W 200 ML IV SCH (05:47)
[2017-04-11] MEDS: METOPROLOL SUCC 50MG EXT REL TAB PO SCH ×2 (05:47→14:24)
[2017-04-11 06:51] LABS: BASO % 0.3 %; BASO ABS # 0.02 K/uL (0-0.2); COMPLETE YES; EOS % 1.7 %; HEMATOCRIT 38.5 % (42-52); IG% 0.2 %; LYMPH ABS # 2.56 K/uL (1.2-3.4); MEAN CELL VOLUME 89.1 fL (80-100); MEAN CORPUSCULAR HEMOGLOBIN 29.6 pg (25-34); MEAN CORPUSCULAR HGB CONC 33.2 g/dl (32-36); MEAN PLATELET VOLUME 12.3 fL (7.4-10.4); MONO % 5.6 %; NEUT % 53.2 %; PLATELET COUNT 144 K/uL (130-400); RED BLOOD COUNT 4.32 M/uL (4.7-6.1); WHITE BLOOD COUNT 6.57 K/uL (4.8-10.8)
[2017-04-11 06:56] LABS: INR 1.1 (0.9-1.1); PROTHROMBIN TIME (PATIENT) 11.4 SECONDS (9.0-12.0)
[2017-04-11 07:27] LABS: BUN/CREATININE RATIO 4.6 (10-20); CREATININE 1.3 mg/dl (0.60-1.40); MAGNESIUM 1.8 mg/dl (1.8-2.4); POTASSIUM 3.5 mmol/L (3.5-5.1)
[2017-04-11 07:32] LABS: CALCIUM 8.9 mg/dl (8.5-10.1); FERRITIN 168.4 ng/ml (8.0-388.0)
[2017-04-11 07:36] VITALS: BP 147/80; PULSE 68; TEMP 36.9; O2SAT 96
--- NOTE | 2017-04-11 07:50 | Family Medicine Progress Note ---
Progress Note Date of Service Apr 11, 2017. Subjective Pt evaluation today including: conversation w/ patient, physical exam, chart review, lab review Pain: complains of generalized abdominal pain Voiding: no voiding problems Patient was comfortably lying down on his. No acute event overnight. MRCP will be performed today. Patient continues to complain of generalized abdominal pain radiating to his chest. Denies any nausea or vomiting this morning. Constitutional: No fever Respiratory: No cough, No sputum, No wheezing, No shortness of breath Cardiovascular: No palpitations Abdomen: + pain (generalized pain (6/10)), No nausea, No vomiting, No diarrhea, No constipation Musculoskeletal: No muscle pain Skin: No rash Medications Current Inpatient Medications Medications (Trade) Dose Ordered Sig/Roxie Route Start Time Stop Time Status Last Admin Dose Admin Alprazolam (Xanax Tab) 1 mg TID PO 04/10/17 08:00 05/10/17 08:59 04/10/17 20:41 1 MG Fluticasone Propionate (Flonase Nasal [place]) 2 sprays DAILY PRN WALDEMAR 04/10/17 05:30 05/10/17 05:29 Metoprolol Succinate (Toprol Xl Tab) 50 mg Q8 PO 04/10/17 07:00 05/10/17 06:59 04/11/17 05:47 50 MG Ondansetron HCl (Zofran Inj) 4 mg Q6H PRN IV 04/10/17 05:30 05/10/17 05:29 Insulin Aspart (novoLOG ASPART) SLIDING SCALE If C... Q6 SC 04/10/17 12:00 05/10/17 11:59 04/11/17 05:54 4 UNITS Glucose (Glucose 40% Gel) UD PRN PO 04/10/17 05:30 05/10/17 05:29 Glucose (Glucose Chew Tab) 1 tabs UD PRN PO 04/10/17 05:30 05/10/17 05:29 Dextrose (Dextrose 50% 50ML Syringe) 50 ml UD PRN IV 04/10/17 05:30 05/10/17 05:29 04/10/17 12:02 50 ML Glucagon (Glucagon Inj) 1 mg UD PRN SQ 04/10/17 05:30 05/10/17 05:29 Potassium Chloride/Dextrose/ Sod Cl 1,000 ml @ 100 mls/hr Q10H IV 04/10/17 16:00 05/10/17 15:59 04/11/17 00:49 100 MLS/HR Diphenhydramine HCl (Benadryl Inj) 25 mg Q4H PRN IV 04/10/17 05:30 05/10/17 05:29 04/10/17 21:01 50 MG Diphenhydramine HCl (Benadryl Inj) 50 mg Q6H PRN IV 04/10/17 05:30 05/10/17 05:29 Ciprofloxacin/ Dextrose 400 mg/ Prmx 200 ml @ 100 mls/hr Q12H IV 04/10/17 07:00 04/20/17 06:59 04/11/17 05:47 100 MLS/HR Miscellaneous (Iv Fluids Completed) 1 ea PRN PRN N/A 04/10/17 05:30 04/10/18 05:29 Promethazine HCl 25 mg/Sodium Chloride 51 ml @ 204 mls/hr Q6H PRN IV 04/10/17 05:30 05/10/17 05:29 Objective Vital Signs Date Time Temp Pulse Resp B/P (MAP) Pulse Ox O2 Delivery O2 Flow Rate FiO2 04/11/17 07:36 36.9 68 18 147/80 (102) 96 Room Air 04/11/17 06:16 Room Air 04/11/17 00:26 36.3 78 18 146/74 (98) 93 Room Air 04/11/17 00:00 Room Air 04/10/17 23:24 Room Air 04/10/17 15:53 Room Air 04/10/17 15:11 36.9 68 18 132/82 (99) 96 Room Air 04/10/17 08:00 96 Room Air Physical Exam General Appearance: WD/WN, no apparent distress, + obese Neck: supple, trachea midline Respiratory/Chest: chest non-tender, lungs clear, normal breath sounds, no respiratory distress, no accessory muscle use Cardiovascular: regular rate, rhythm, no edema Abdomen: normal bowel sounds, soft, + tenderness Extremities: non-tender, no pedal edema Neurologic/Psychiatric: alert, normal mood/affect, oriented x 3 Skin: normal color, warm/dry, no rash Laboratory Results Results Past 24 Hours Test 04/10/17 11:52 04/10/17 12:19 04/10/17 16:46 04/11/17 00:31 Range/Units Bedside Glucose 47 136 128 161 70-99 mg/dl Test 04/11/17 05:50 04/11/17 06:26 Range/Units Bedside Glucose 270 70-99 mg/dl White Blood Count 6.57 4.8-10.8 K/uL Red Blood Count 4.32 4.7-6.1 M/uL Hemoglobin 12.8 14.0-18.0 g/dL Hematocrit 38.5 42-52 % Mean Corpuscular Volume 89.1 80-100 fL Mean Corpuscular Hemoglobin 29.6 25-34 pg Mean Corpuscular Hemoglobin Concent 33.2 32-36 g/dl Platelet Count 144 130-400 K/uL Mean Platelet Volume 12.3 7.4-10.4 fL Neutrophils (%) (Auto) 53.2 % Lymphocytes (%) (Auto) 39.0 % Monocytes (%) (Auto) 5.6 % Eosinophils (%) (Auto) 1.7 % Basophils (%) (Auto) 0.3 % Neutrophils # (Auto) 3.50 1.4-6.5 K/uL Lymphocytes # (Auto) 2.56 1.2-3.4 K/uL Monocytes # (Auto) 0.37 0.11-0.59 K/uL Eosinophils # (Auto) 0.11 0-0.5 K/uL Basophils # (Auto) 0.02 0-0.2 K/uL RDW Standard Deviation 45.7 36.4-46.3 fL RDW Coefficient of Variation 13.9 11.5-14.5 % Immature Granulocyte % (Auto) 0.2 % Immature Granulocyte # (Auto) 0.01 0.00-0.02 K/uL Prothrombin Time 11.4 9.0-12.0 SECONDS Prothromb Time International Ratio 1.1 0.9-1.1 Activated Partial Thromboplast Time 27.1 21.0-31.0 SECONDS Partial Thromboplastin Ratio 1.0 Sodium Level 140 136-145 mmol/L Potassium Level 3.5 3.5-5.1 mmol/L Chloride Level 108 98-107 mmol/L Carbon Dioxide Level 25 21-32 mmol/L Anion Gap 7.0 3-11 mmol/L Creatinine 1.30 0.60-1.40 mg/dl Est Creatinine Clear Calc Drug Dose 107.2 ml/min Estimated GFR () 76.9 Estimated GFR (Non- 66.4 BUN/Creatinine Ratio 4.6 10-20 Random Glucose 253 70-99 mg/dl Calcium Level 8.9 8.5-10.1 mg/dl Magnesium Level 1.8 1.8-2.4 mg/dl Ferritin 168.4 8.0-388.0 ng/ml Total Bilirubin 0.3 0.2-1 mg/dl Direct Bilirubin 0.1 0-0.2 mg/dl Aspartate Amino Transf (AST/SGOT) 195 15-37 U/L Alanine Aminotransferase (ALT/SGPT) 219 12-78 U/L Alkaline Phosphatase 105 45-117 U/L Total Protein 6.5 6.4-8.2 gm/dl Albumin 2.9 3.4-5.0 gm/dl Assessment and Plan This is a 46 y/o male with PMHx of DM, GERD, HTN, and PE presented to the hospital complaining of nausea, vomiting, and abdominal pain X2-3days. Lab works showed elevated LFTs. Patient was recently diagnosed with DM on his last admission in [facility] and started on insulin and metformin. * Nausea/Vomiting/Abdominal pain/elevated LFTs - This could be secondary to liver or gallbladder pathology (cholecystitis, viral hepatitis, hepatic steatosis, alcoholic cirrhosis) - Gallbladder US showed hepatomegaly and severe hepatic steatosis. No gallstones were noted - HIDA scan showed 1. no evidence for cystic duct obstruction, 2. Gallbladder ejection fraction calculated to be 85% %. 3. Slight delay in isotope transit to the small bowel which may indicate a component of mild distal common duct sphincter dysfunction - Given the abnormal finding on HIDA scan, MRCP was ordered - pending - Will continue with Ciprofloxacin 400mg for now q12h - C/w D5 + 1/2 NSS + 20KCL @ 100mls/hr - [place], anti-mitochondrial Ab, serum immunofixation, and viral serology (Hep A & Hep B) ordered - pending - GI was consulted and Dr. Suarez recommended MRCP; if retained CBD stone or ductal dilation, ERCP recommended. For N/V - EGD today with Dr Rangel if ERCP is not needed. Will continue to appreciate his recommendation. * DMII - recently diagnosed - Patient was recently diagnosed with DM on his last admission in [facility] and started on insulin and metformin. - Patient was hypoglycemic in ED (glucose level 46) requiring D50 bolus. Questionable whether patient intentionally or inadvertently took too much insulin. - Will continue to hold Lantus 50unit and metformin - start on sliding scale with NovoLog - Given new onset of DM, and state of hypercoagulability, Dr. Werner recommended imaging of pancreas * HTN - Changed Metoprolol succinate from 150mg to 50mg q8h. *Electrolytes abnormalities - Patient has hypokalemia and hypernatremia - Will continue with the IVF with potassium - F/u on BMP tomorrow am * History of PE - Will continue to hold Xarelto 20mg for now given the upcoming procedure, Resume Xarelto after the procedure * Anxiety/Depression - C/w alprazolam 1mg QID - C/w to hold Lexapro 30mg *ADD - C/w to hold Ritalin 20mg * DVT Prophylaxis - Will continue to hold chemical prophylaxis given upcoming procedure. - SCDs
[2017-04-11] MEDS: ALPRAZOLAM 0.5 MG TAB PO SCH ×2 (08:52→14:24)
[2017-04-11] MEDS ORDERED: ESCITALOPRAM OXALATE 10 MG TAB PO ONE (11:00)
[2017-04-11] MEDS ORDERED: CIPROFLOXACIN 400MG / 200ML D5W ONE (11:43)
[2017-04-11] MEDS ORDERED: FENTANYL CITRATE INJ 50 MCG/1 ML 2 ML VIAL ONE (12:40)
[2017-04-11] MEDS ORDERED: LIDOCAINE HCL 2% 2 ML VIAL (20MG/ML) ONE (12:40)
[2017-04-11] MEDS ORDERED: PROPOFOL IV EMULSION 10 MG/ML 20 ML VIAL IV ONE ×2 (12:40→13:09)
--- NOTE | 2017-04-11 13:03 | Endo History and Physical ---
History & Physical Date of Service: Apr 11, 2017. Chief Complaint: RUQ pain Referring Physician: Dr Werner History of Present Illness For EGD Past Medical History Pulmonary Emboli, Anxiety, Reflux, Hypertension, Kidney Disease, Depression Past Surgical History Hx Cardiac Surgery: Yes (cardiac cath) Hx Internal Defibrillator: No Hx Pacemaker: No Hx Abdominal Surgery: Yes (rectal) Hx Post-Op Nausea and Vomiting: No Hx Cancer Surgery: No Hx Thoracic Surgery: No Hx Orthopedic: No Hx Urinary Tract Surgery: No Social History Smoking Status: Never Smoker Smokeless Tobacco Use: No Hx Substance Use: Yes Hx Alcohol Use: No Allergies Coded Allergies: Iodine (Verified Allergy, Severe, THROAT SWELLING, 03/10/17) 02/18/13: patient denies IV contrast allergy Patient has been pre-treated in the past with methylprednisolone and diphenhydramine without incident following IV dye administration. Shellfish (Verified Allergy, Severe, THROAT SWELLING, 03/10/17) Iodinated Diagnostic Agents (Verified Allergy, Unknown, swelling, 03/10/17) Plasma, Human (Verified Allergy, Unknown, ANAPHYLAXIS, 03/10/17) Acetaminophen (Verified Adverse Reaction, Unknown, GI ISSUES, 03/10/17) Hydrocodone (Verified Adverse Reaction, Unknown, GI ISSUES, 03/10/17) Current Medications Reported Home Medications Medications Dose Route/Sig Max Daily Dose Days Date Category Dose Instructions Xarelto (Rivaroxaban) 20 Mg Tab 20 Mg PO DAILY 04/10/17 Reported Roxicodone Ir (Oxycodone HCl) 5 Mg Tab 10 Mg PO Q4H PRN 04/10/17 Reported Glucophage Ext Rel (Metformin HCl) 500 Mg Tab 500 Mg PO DAILY 04/10/17 Reported Flexeril (Cyclobenzaprine Hcl) 10 Mg Tab 10 Mg PO TID PRN 04/10/17 Reported Lantus Solostar (Insulin Glargine) 100 Unit/Ml Inj 50 Units SQ QAM 04/10/17 Reported Novolog Flexpen (Insulin Aspart) 100 Units/Ml Inj 12 Units SC ACHS 30 03/11/17 Rx please be sure the pen capacity will be enough for one month Lexapro (Escitalopram Oxalate) 20 Mg Tab 20 Mg PO DAILY 08/23/16 Reported Flonase Allergy Relief (Fluticasone Propionate (Nasal)) 50 Mcg/Act Spr 2 Sprays WALDEMAR DAILY PRN 08/20/16 Reported Lexapro (Escitalopram Oxalate) 10 Mg Tab 10 Mg PO DAILY 08/20/16 Reported Toprol-Xl (Metoprolol Succinate) 100 Mg Tabcr 150 Mg PO DAILY 08/20/16 Reported Ritalin (Methylphenidate HCl) 20 Mg Tab 20 Mg PO BID 08/20/16 Reported Xanax (Alprazolam) 1 Mg Tab 1 Mg PO TID 08/20/16 Reported Ambien (Zolpidem Tartrate) 10 Mg Tab 10 Mg PO HS 08/20/16 Reported Vital Signs Weight (Kilograms): 137.900 Height (Feet): 6 Height (Inches): 2.00 Date Time Temp Pulse Resp B/P (MAP) Pulse Ox O2 Delivery O2 Flow Rate FiO2 04/11/17 08:00 Room Air 04/11/17 07:36 36.9 68 18 147/80 (102) 96 Room Air 04/11/17 06:16 Room Air 04/11/17 00:26 36.3 78 18 146/74 (98) 93 Room Air 04/11/17 00:00 Room Air 04/10/17 23:24 Room Air 04/10/17 15:53 Room Air 04/10/17 15:11 36.9 68 18 132/82 (99) 96 Room Air Physical Exam General Appearance: WD/WN Respiratory/Chest: Respiratory effort: no dyspnea Cardiovascular: Heart Auscultation: RRR Abdomen: Inspection & Palpation: soft Assessment and Plan RUQ pain for EGD
--- NOTE | 2017-04-11 13:04 | Discharge Instructions ---
Endoscopy Patient Instructions Date / Procedure(s) Performed Apr 11, 2017. EGD Allergy Information Coded Allergies: Iodine (Verified Allergy, Severe, THROAT SWELLING, 03/10/17) 02/18/13: patient denies IV contrast allergy Patient has been pre-treated in the past with methylprednisolone and diphenhydramine without incident following IV dye administration. Shellfish (Verified Allergy, Severe, THROAT SWELLING, 03/10/17) Iodinated Diagnostic Agents (Verified Allergy, Unknown, swelling, 03/10/17) Plasma, Human (Verified Allergy, Unknown, ANAPHYLAXIS, 03/10/17) Acetaminophen (Verified Adverse Reaction, Unknown, GI ISSUES, 03/10/17) Hydrocodone (Verified Adverse Reaction, Unknown, GI ISSUES, 03/10/17) Discharge Date / Findings Apr 11, 2017. esophagitis Medication Instructions Restart Stopped Medication(s): resume meds Current Inpatient Medications Medications (Trade) Dose Ordered Sig/Roxie Route Start Time Stop Time Status Last Admin Dose Admin Alprazolam (Xanax Tab) 1 mg TID PO 04/10/17 08:00 05/10/17 08:59 04/11/17 08:52 1 MG Fluticasone Propionate (Flonase Nasal [place]) 2 sprays DAILY PRN WALDEMAR 04/10/17 05:30 05/10/17 05:29 Metoprolol Succinate (Toprol Xl Tab) 50 mg Q8 PO 04/10/17 07:00 05/10/17 06:59 04/11/17 05:47 50 MG Ondansetron HCl (Zofran Inj) 4 mg Q6H PRN IV 04/10/17 05:30 05/10/17 05:29 Insulin Aspart (novoLOG ASPART) SLIDING SCALE If C... Q6 SC 04/10/17 12:00 05/10/17 11:59 04/11/17 05:54 4 UNITS Glucose (Glucose 40% Gel) UD PRN PO 04/10/17 05:30 05/10/17 05:29 Glucose (Glucose Chew Tab) 1 tabs UD PRN PO 04/10/17 05:30 05/10/17 05:29 Dextrose (Dextrose 50% 50ML Syringe) 50 ml UD PRN IV 04/10/17 05:30 05/10/17 05:29 04/10/17 12:02 50 ML Glucagon (Glucagon Inj) 1 mg UD PRN SQ 04/10/17 05:30 05/10/17 05:29 Potassium Chloride/Dextrose/ Sod Cl 1,000 ml @ 100 mls/hr Q10H IV 04/10/17 16:00 05/10/17 15:59 04/11/17 11:40 100 MLS/HR Diphenhydramine HCl (Benadryl Inj) 25 mg Q4H PRN IV 04/10/17 05:30 05/10/17 05:29 04/10/17 21:01 50 MG Diphenhydramine HCl (Benadryl Inj) 50 mg Q6H PRN IV 04/10/17 05:30 05/10/17 05:29 Ciprofloxacin/ Dextrose 400 mg/ Prmx 200 ml @ 100 mls/hr Q12H IV 04/10/17 07:00 04/20/17 06:59 04/11/17 05:47 100 MLS/HR Miscellaneous (Iv Fluids Completed) 1 ea PRN PRN N/A 04/10/17 05:30 04/10/18 05:29 Promethazine HCl 25 mg/Sodium Chloride 51 ml @ 204 mls/hr Q6H PRN IV 04/10/17 05:30 05/10/17 05:29 Escitalopram Oxalate (Lexapro Tab) 10 mg DAILY PO 04/12/17 08:00 05/12/17 07:59 Escitalopram Oxalate (Lexapro Tab) 20 mg DAILY PO 04/12/17 08:00 05/12/17 07:59 Zolpidem Tartrate (Ambien Tab) 10 mg HS PO 04/11/17 21:00 05/11/17 20:59 Provider Instructions Activity Restrictions - No exercising or heavy lifting for 24 hours. - Do not drink alcohol the day of the procedure. - Do not drive a car or operate machinery until the day after the procedure. - Do not make any important decisions or sign important papers in 24 hours after the procedure. Following Day: - Return to full activity which may include returning to work/school. Diet Start your diet with liquids and light foods (jello, soup, juice, toast). Then eat your usual diet if not nauseated. Treatment For Common After Affects For mild abdominal pain, bloating, or excessive gas: - Rest - Eat lightly - Lie on right side Follow-Up Information Follow-up with as scheduled Anesthesia Information What You Should Know You have had a procedure that required some medicine to reduce anxiety and discomfort. This treatment is called moderate sedation. After receiving the treatment, you may be sleepy, but you will be able to breathe on your own. The effects of the treatment may last for several hours. Follow these instructions along with Activity/Diet recommendations noted above: * Do NOT do anything where dizziness or clumsiness would be dangerous. * Rest quietly at home today, then you can be up and about tomorrow. * Have a responsible person stay with you the rest of today. * You may have had an I.V. today. If so, you may take the dressing off later today. Recommendations Call your doctor if: * Trouble breathing * Continuous vomiting for more than 24 hours * Temperature above 101 degrees * Severe abdominal pain or bloating * Pain not relieved by pain medicine ordered * There is increased drainage or redness from any incision * A large amount of rectal bleeding greater than 2-3 tablespoons. (If you had a polyp/s removed or have hemorrhoids, a small amount of blood - from the rectum is to be expected.) * You have any unanswered questions or concerns. IN THE EVENT OF A SERIOUS EMERGENCY, GO TO THE NEAREST EMERGENCY ROOM Your discharge instructions were prepared by provider Rashel Rangel. Patient Instructions Signature Page Jordan Delaney Patient (or Guardian) Signature/Date: I have read and understand the instructions given to me by my caregivers. Caregiver/RN/Doctor Signature/Date: The above-named patient and/or guardian has received patient instructions on this date. + Original Patient Signature Page (only) stays with chart. Please make copy for patient.
--- NOTE | 2017-04-11 13:15 | GI REPORT ---
Procedure Date: 04/11/2017 12:27 PM Procedure: Upper GI endoscopy Indications: Abdominal pain in the right upper quadrant Medicines: Fentanyl 100 micrograms IV, Propofol total dose 250 mg IV, Lidocaine 40 mg IV Complications: No immediate complications. Estimated Blood Loss: Estimated blood loss was minimal. Procedure: Pre-Anesthesia Assessment: - Prior to the procedure, a History and Physical was performed, and patient medications, allergies and sensitivities were reviewed. The patient's tolerance of previous anesthesia was reviewed. - The risks and benefits of the procedure and the sedation options and risks were discussed with the patient. All questions were answered and informed consent was obtained. After obtaining informed consent, the endoscope was passed under direct vision. Throughout the procedure, the patient's blood pressure, pulse, and oxygen saturations were monitored continuously. The On-site loaner was introduced through the mouth, and advanced to the second part of duodenum. The upper GI endoscopy was accomplished without difficulty. The patient tolerated the procedure well. Findings: The Z-line was regular and was found 40 cm from the incisors. LA Grade B (one or more mucosal breaks greater than 5 mm, not extending between the tops of two mucosal folds) esophagitis with no bleeding was found 40 cm from the incisors. The entire examined stomach was normal. The 2nd part of the duodenum was normal. Biopsies were taken with a cold forceps for histology. Estimated blood loss was minimal. Impression: - Z-line regular, 40 cm from the incisors. - LA Grade B reflux esophagitis. - Normal stomach. - Normal 2nd part of the duodenum. Biopsied. Recommendation: - [facility] care. Rashel Rangel M.D. Rashel Rangel MD 04/11/2017 1:15:21 PM This report has been signed electronically. Note Initiated On: 04/11/2017 12:27 PM I attest to the content of the Intraoperative Record and orders documented therein, exceptions below
--- NOTE | 2017-04-11 13:19 | Anesthesiology Progress Note ---
Anesthesia Post Op Note Date & Time Apr 11, 2017 at 13:19 Vital Signs Pain Intensity: 8 Vital Signs Past 12 Hours Date Time Temp Pulse Resp B/P (MAP) Pulse Ox O2 Delivery O2 Flow Rate FiO2 04/11/17 13:06 72 20 126/79 (95) 97 Room Air 04/11/17 12:20 64 20 143/98 (113) 96 Room Air 04/11/17 08:00 Room Air 04/11/17 07:36 36.9 68 18 147/80 (102) 96 Room Air 04/11/17 06:16 Room Air Notes Mental Status: alert / awake / arousable, participated in evaluation Pt Amnestic to Procedure: Yes Nausea / Vomiting: adequately controlled Pain: adequately controlled Airway Patency, RR, SpO2: stable & adequate BP & HR: stable & adequate Hydration State: stable & adequate Anesthetic Complications: no major complications apparent
[2017-04-11 13:39] VITALS: BP 146/87; PULSE 73; TEMP 36.6; O2SAT 97
[2017-04-11] MEDS ORDERED: PANT40TA PO ×2 (14:37)
--- NOTE | 2017-04-11 14:41 | Discharge Instructions ---
Discharge Instructions Date of Service Apr 11, 2017. Admission Reason for Admission: Intractable Vomiting Discharge Discharge Diagnosis / Problem: Esophagitis, Elevated LFT Discharge Goals Goal(s): Improve disease control Activity Recommendations Activity Limitations: resume your previous activity . Instructions / Follow-Up Instructions / Follow-Up With family physician in one week With Dr. Werner in 2 weeks Current Hospital Diet Patient's current hospital diet: Clear Liquid Diet Discharge Diet Recommended Diet: Low Fat Diet Procedures Procedures Performed: EGD, BX Pending Studies Studies pending at discharge: yes List of pending studies: Multiple labs as work up for elevated liver enzymes. Laboratory Results Hemoglobin A1c Test 03/07/17 06:03 Range/Units Estimated Average Glucose 246 mg/dl Hemoglobin A1c 10.2 H 4.5-5.6 % Lipid Panel Test 02/24/17 05:18 Range/Units Triglycerides Level 336 H 0-150 mg/dl Cholesterol Level 187 0-200 mg/dl HDL Cholesterol 29 mg/dl Cholesterol/HDL Ratio 6.4 LDL Cholesterol, Calculated 91 mg/dl Medical Emergencies . Who to Call and When: Medical Emergencies: If at any time you feel your situation is an emergency, please call 911 immediately. . Non-Emergent Contact Non-Emergency issues call your: Primary Care Provider . . "Provider Documentation" section prepared by Jess John. . VTE Core Measure Inpt VTE Proph given/why not?: Other Anticoagulation (Xarelto)
[2017-04-11 15:10] VITALS: BP 146/87; PULSE 73; TEMP 36.6; O2SAT 97
[2017-04-11 16:00] VITALS: BP 153/85; PULSE 72
--- NOTE | 2017-04-11 16:44 | Discharge Summary ---
Discharge Summary Date of Service Apr 11, 2017. Discharge Summary Admission Date: Apr 10, 2017 at 05:19 Discharge Date: Apr 11, 2017 Discharge Disposition: Home Principal Diagnosis: Esophagitis, Abnormal LFT Problems/Secondary Diagnoses: (1) Anxiety Status: Chronic (2) CKD (chronic kidney disease), stage III Status: Chronic (3) Costochondritis Status: Chronic (4) Depression Status: Chronic (5) Elevated CK Status: Chronic (6) Essential hypertension Status: Chronic (7) GERD (gastroesophageal reflux disease) Status: Chronic (8) H/O colonoscopy Status: Chronic (9) H/O esophagogastroduodenoscopy Status: Chronic (10) History of esophageal ulcer Status: Chronic (11) History of muscle biopsy Status: Chronic (12) History of rectal surgery Status: Chronic (13) Hx of pulmonary embolus Status: Chronic (14) Hyperlipidemia Status: Chronic (15) Hypertension Status: Chronic (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 Rangel Consultations: [place] - [facility] [place]ication Reconciliation New Medications: Pantoprazole (Protonix) 40 Mg Tab 40 MG PO DAILY, #30 TAB Continued Medications: Alprazolam (Xanax) 1 Mg Tab 1 MG PO TID, TAB Cyclobenzaprine Hcl (Flexeril) 10 Mg Tab 10 MG PO TID PRN for SPASMS, TAB Escitalopram (Lexapro) 10 Mg Tab 10 MG PO DAILY, TAB Escitalopram Oxalate (Lexapro) 20 Mg Tab 20 MG PO DAILY, TAB Fluticasone Propionate (Nasal) (Flonase Allergy Relief) 50 Mcg/Act Spr 2 SPRAYS WALDEMAR DAILY PRN for ALLERGIC REACTION Insulin Aspart (Novolog Flexpen) 100 Units/Ml Inj 12 UNITS SC ACHS for 30 Days, #2 PEN 6 Refills please be sure the pen capacity will be enough for one month Insulin Glargine (Lantus Solostar) 100 Unit/Ml Inj 50 UNITS SQ QAM, PEN Metformin Ext Rel (Glucophage Ext Rel) 500 Mg Tab 500 MG PO DAILY, TAB Methylphenidate (Ritalin) 20 Mg Tab 20 MG PO BID, TAB Metoprolol Succ (Toprol Xl) (Toprol-Xl ) 100 Mg Tabcr 150 MG PO DAILY Oxycodone Ir (Roxicodone Ir) 5 Mg Tab 10 MG PO Q4H PRN for Severe Pain, TAB Rivaroxaban (Xarelto) 20 Mg Tab 20 MG PO DAILY, TAB Zolpidem Tartrate (Ambien) 10 Mg Tab 10 MG PO HS, TAB 5 Refills Discharge Exam no more nausea, vomiting, abdominal pain improved tolerated his meal Review of Systems: Constitutional: No fever Respiratory: No shortness of breath Cardiovascular: No chest pain Abdomen: No pain, No nausea, No vomiting Physical Exam: General Appearance: no apparent distress Respiratory/Chest: lungs clear, no respiratory distress Cardiovascular: regular rate, rhythm Abdomen / GI: normal bowel sounds, non tender, soft Neurologic/Psychiatric: alert, oriented x 3 Skin: warm/dry Hospital Course 46 y/o male with PMHx of DM, GERD, HTN, and PE presented to the hospital complaining of nausea, vomiting, and abdominal pain X2-3days. Lab works showed elevated LFTs. Patient was recently diagnosed with DM on his last admission in [facility] and started on insulin and metformin. * Nausea/Vomiting/Abdominal pain/elevated LFTs - Gallbladder US showed hepatomegaly and severe hepatic steatosis. No gallstones were noted - HIDA scan showed 1. no evidence for cystic duct obstruction, 2. Gallbladder ejection fraction calculated to be 85% %. 3. Slight delay in isotope transit to the small bowel which may indicate a component of mild distal common duct sphincter dysfunction - Given the abnormal finding on HIDA scan, MRCP ordered - results negative. - [place], anti-mitochondrial Ab, serum immunofixation, and viral serology (Hep A & Hep B) ordered - pending - EGD done for nausea and vomiting showed esophagitis and patient started sent home on protonix. - Xarelto was held in anticipation of procedure. Resumed at the time of discharge. * DMII - recently diagnosed - Recommended compliance with lantus and metformin. Total Time Spent: Greater than 30 minutes This includes examination of the patient, discharge planning, medication reconciliation, and communication with other providers. Discharge Instructions Please refer to the electronic Patient Visit Report (Discharge Instructions) for additional information. Additional Copies To Yoel Werner M.D.; Edgardo Azevedo D.O.
[2017-04-11] MEDS ORDERED: ZOLPIDEM TARTRATE 10 MG TAB PO SCH (21:00)
[2017-04-12] MEDS ORDERED: ESCITALOPRAM OXALATE 20 MG TAB PO SCH (08:00)
[2017-04-12] MEDS ORDERED: ESCITALOPRAM OXALATE 10 MG TAB PO SCH (08:00)
[2017-04-16 11:34] LABS: ALBUMIN 3.4 G/DL (3.8-4.8); ALPHA-1-ANTITRYPSIN TC 67710E 129 MG/DL (83-199); GAMMA GLOBULIN 1.2 G/DL (0.8-1.7); TOTAL PROTEIN 6.3 G/DL (6.2-8.3)
[2017-06-15] MEDS ORDERED: SENN-65 PO ×2 (11:39→12:07)
[2017-06-15] MEDS ORDERED: METO1TAB69 PO ×2 (11:39→12:07)
[2017-06-15] MEDS ORDERED: MRLP17X OR ×2 (11:39→12:07)
[2017-07-24] MEDS ORDERED: CYCL10TA6 PO (19:08)
[2017-07-24] MEDS ORDERED: METFTAB PO (19:08)
[2017-07-24] MEDS ORDERED: PANT40TA PO (19:08)
[2017-07-24] MEDS ORDERED: NVLG SQ (19:08)
[2017-07-24] MEDS ORDERED: OXYC1TAB3 PO (19:08)
[2017-07-24] MEDS ORDERED: ESCI1TAB18 PO (19:08)
[2017-07-24] MEDS ORDERED: ESCI10TA17 PO (19:08)
[2017-07-24] MEDS ORDERED: INSDGIPEN SQ (19:08)
== END 2017-04-11 16:51 | disposition home or self-care (01) ==
LOC: C.EDA 02:25 → C.4E 05:19 → ENRESERV 05:35
PROVIDERS: ADMIT Hospitalist; ATTEND Family Medicine
DX: E11.649 Type 2 diabetes mellitus with hypoglycemia without coma (principal); E11.22 Type 2 diabetes mellitus with diabetic chronic kidney disease; I12.9 Hypertensive chronic kidney disease with stage 1 through stage 4 chronic kidney disease, or unspecified chronic kidney disease; N18.3 Chronic kidney disease, stage 3 (moderate); E13.10 Other specified diabetes mellitus with ketoacidosis without coma; E78.5 Hyperlipidemia, unspecified; K21.0 Gastro-esophageal reflux disease with esophagitis; K92.0 Hematemesis; M94.0 Chondrocostal junction syndrome [Tietze]; M60.9 Myositis, unspecified; F41.9 Anxiety disorder, unspecified; F32.9 Major depressive disorder, single episode, unspecified; M79.605 Pain in left leg; M79.604 Pain in right leg; Z86.711 Personal history of pulmonary embolism; Z79.4 Long term (current) use of insulin; Z79.899 Other long term (current) drug therapy

== ENCOUNTER → 2017-04-16 | Outpatient (CLI) | payer OTHER ==
[~2017-04-16] MED LIST changes: +INSDGIPEN SQ; +LISI-461 PO; +LSN20 PO; +LSN5 PO; +METO100T7 PO; +METO50TA7 PO; +MRLP17X OR; +NVLG SQ; +OXYC1TAB3 PO; +PANT40TA PO; +SENN-65 PO
[2017-04-16 17:37] LABS: ALT/SGPT 178 U/L (12-78); AST/SGOT 182 U/L (15-37); BLOOD UREA NITROGEN 13 mg/dl (7-18); CALCIUM 8.7 mg/dl (8.5-10.1); CARBON DIOXIDE 25 mmol/L (21-32); CHLORIDE 108 mmol/L (98-107); GLUCOSE 120 mg/dl (70-99); POTASSIUM 3.7 mmol/L (3.5-5.1); SODIUM 141 mmol/L (136-145)
[2017-04-16 17:48] LABS: ALB/GLOB RATIO 0.8 (0.9-2); ALKALINE PHOSPHATASE 139 U/L (45-117); CHOLESTEROL 151 mg/dl (0-200); CHOLESTEROL/HDL RATIO 5.4; HDL CHOLESTEROL 28 mg/dl; LDL CHOLESTEROL CALCULATED 79 mg/dl; TRIGLYCERIDES 221 mg/dl (0-150); VERY LOW DENSITY LIPOPROT CALC 44 mg/dl
[2017-04-16 18:04] LABS: RATIO 25.8 mcg/mg (0-30.0)
[2017-04-16 19:35] LABS: MAGNESIUM 1.8 mg/dl (1.8-2.4); PHOSPHORUS 1.6 mg/dl (2.5-4.9)
[2017-04-17 06:35] LABS: ESTIMATED AVERAGE GLUCOSE 258 mg/dl; HA1C FLAG Normal (Normal)
== END | disposition home or self-care (01) ==
LOC: C.LABPBG 12:25
PROVIDERS: ATTEND Neuromusculoskeletal Medicine & OMM
DX: Z00.00 Encounter for general adult medical examination without abnormal findings (principal); E11.65 Type 2 diabetes mellitus with hyperglycemia; I10 Essential (primary) hypertension; F32.9 Major depressive disorder, single episode, unspecified

== ENCOUNTER 2017-05-07 20:04 | Emergency (ER) | payer OTHER ==
[~2017-05-07] VITALS: Ht 188 cm; Wt 141.6 kg
[2017-05-07 20:04] VITALS: TEMP 36.8; Ht 188 cm; Wt 141.6 kg
[~2017-05-07 20:04] MED LIST changes: -INSDGIPEN SC; -LISI-461 PO; -LSN20 PO; -LSN5 PO; -METO100T7 PO; -METO50TA7 PO; -MRLP17X OR; -NVLG SQ; -RXC5 PO; -SENN-65 PO
[2017-05-07] MEDS ORDERED: SODIUM CHLORIDE 0.9% 1000ML 1,000 ML IV STA (20:18)
[2017-05-07] MEDS ORDERED: DEXTROSE 50% 50 ML SYR IV STA (20:23)
[2017-05-07 20:31] LABS: BASO % 0.3 %; BASO ABS # 0.03 K/uL (0-0.2); COMPLETE YES; EOS % 1.8 %; HEMATOCRIT 42.5 % (42-52); IG% 0.2 %; LYMPH ABS # 3.45 K/uL (1.2-3.4); MEAN CELL VOLUME 90.6 fL (80-100); MEAN CORPUSCULAR HEMOGLOBIN 31.3 pg (25-34); MEAN CORPUSCULAR HGB CONC 34.6 g/dl (32-36); MEAN PLATELET VOLUME 12.6 fL (7.4-10.4); MONO % 7.8 %; NEUT % 55.9 %; PLATELET COUNT 229 K/uL (130-400); RED BLOOD COUNT 4.69 M/uL (4.7-6.1); WHITE BLOOD COUNT 10.16 K/uL (4.8-10.8)
--- NOTE | 2017-05-07 20:44 | DIAGNOSTIC IMAGING REPORT ---
CHEST ONE VIEW PORTABLE CLINICAL HISTORY: Chest pain. COMPARISON STUDY: Chest radiograph April 10, 2017. FINDINGS: Lung volumes are at the lower limits of normal. There is no pneumothorax or pleural effusion. Cardiomediastinal silhouette is stable. There is no evidence of pulmonary edema. IMPRESSION: No acute cardiopulmonary findings. Electronically signed by: Lukas Duke M.D. 05/07/2017 8:43 PM Dictated Date/Time: 05/07/2017 8:42 PM
[2017-05-07 20:47] LABS: INR 1.1 (0.9-1.1); PARTIAL THROMBOPLASTIN RATIO 1.1; PROTHROMBIN TIME (PATIENT) 11.5 SECONDS (9.0-12.0)
[2017-05-07 20:59] LABS: ALT/SGPT 256 U/L (12-78); AST/SGOT 296 U/L (15-37); BLOOD UREA NITROGEN 11 mg/dl (7-18); BUN/CREATININE RATIO 8.2 (10-20); CALCIUM 9.3 mg/dl (8.5-10.1); CARBON DIOXIDE 28 mmol/L (21-32); CHLORIDE 104 mmol/L (98-107); POTASSIUM 3.1 mmol/L (3.5-5.1); SODIUM 141 mmol/L (136-145)
[2017-05-07 21:00] LABS: GLUCOSE 43 mg/dl (70-99)
[2017-05-07 21:05] LABS: ALKALINE PHOSPHATASE 135 U/L (45-117); CKMB/CK RATIO 0.5 (0-3.0)
--- NOTE | 2017-05-07 21:08 | EMERGENCY ROOM VISIT NOTE ---
History Report prepared by Chad: Georges Joseph Under the Supervision of: Dr. Nasim Ramirez D.O. First contact with patient: 20:10 Chief Complaint: HYPOGLYCEMIA Stated Complaint: Hypoglycemia History of Present Illness The patient is a 46 year old male who presents to the Emergency Room with complaints of worsening hypoglycemia starting this morning. The patient states that he is additionally having some chest tightness. The patient states that he did not eat this morning, though later in the day he had two strawberry yogurts. The patient did not hit his head or fall, though he just fell asleep The patient states that he just started taking insulin about a month ago, so he is still getting used to it. Source of History: patient Onset: this morning Position: other (global) Quality: other (hypoglycemia) Timing: worsening Associated Symptoms: + chest pain Review of Systems See HPI for pertinent positives & negatives. A total of 10 systems reviewed and were otherwise negative. Past Medical & Surgical Medical Problems: (1) Abdominal pain (2) BR[place]GETTE (acute kidney injury) (3) Anxiety (4) Blood clot in vein (5) Chest pain (6) Chest pain (7) Chest wall pain (8) CKD (chronic kidney disease), stage III (9) Costochondritis (10) Depression (11) Diabetes (12) Elevated CK (13) Elevated CK (14) Elevated CPK (15) Essential hypertension (16) Fever and chills (17) GERD (gastroesophageal reflux disease) (18) Hemoptysis (19) History of esophageal ulcer (20) History of pleural effusion (21) Hx of pulmonary embolus (22) Hyperglycemia (23) Hyperlipidemia (24) Hypertension (25) Myositis (26) Non-autoimmune myositis (27) Pharyngitis (28) Pleuritic chest pain (29) Prediabetes (30) Substernal chest pain (31) Suspected pulmonary embolism (32) Transaminitis Surgical Problems: (1) H/O colonoscopy (2) H/O esophagogastroduodenoscopy (3) History of muscle biopsy (4) History of rectal surgery (5) S/P cardiac catheterization Family History Blood clots FH: brain aneurysm MOTHER (mother, age 32) Social History Smoking Status: Never Smoker Alcohol Use: occasionally Drug Use: none Marital Status: single Housing Status: lives alone Occupation Status: disabled Current/Historical Medications Scheduled Alprazolam (Xanax), 1 MG PO TID Escitalopram (Lexapro), 10 MG PO DAILY Escitalopram Oxalate (Lexapro), 20 MG PO DAILY Insulin Aspart (Novolog Flexpen), 12 UNITS SC ACHS Insulin Glargine (Lantus Solostar), 50 UNITS SQ QAM Lisinopril (Lisinopril), 1 TAB PO DAILY Metformin Ext Rel (Glucophage Ext Rel), 500 MG PO DAILY Methylphenidate (Ritalin), 20 MG PO BID Metoprolol Succ (Toprol Xl) (Toprol-Xl ), 150 MG PO DAILY Pantoprazole (Protonix), 40 MG PO DAILY Rivaroxaban (Xarelto), 20 MG PO DAILY Zolpidem Tartrate (Ambien), 10 MG PO HS Scheduled PRN Cyclobenzaprine Hcl (Flexeril), 10 MG PO TID PRN for SPASMS Fluticasone Propionate (Nasal) (Flonase Allergy Relief), 2 SPRAYS WALDEMAR DAILY PRN for ALLERGIC REACTION Oxycodone Ir (Roxicodone Ir), 10 MG PO Q4H PRN for Severe Pain Allergies Coded Allergies: Iodine (Verified Allergy, Severe, THROAT SWELLING, 05/07/17) 02/18/13: patient denies IV contrast allergy Patient has been pre-treated in the past with methylprednisolone and diphenhydramine without incident following IV dye administration. Shellfish (Verified Allergy, Severe, THROAT SWELLING, 05/07/17) Iodinated Diagnostic Agents (Verified Allergy, Unknown, swelling, 05/07/17) Plasma, Human (Verified Allergy, Unknown, ANAPHYLAXIS, 05/07/17) Acetaminophen (Verified Adverse Reaction, Unknown, GI ISSUES, 05/07/17) Hydrocodone (Verified Adverse Reaction, Unknown, GI ISSUES, 05/07/17) Physical Exam Vital Signs Date Time Temp Pulse Resp B/P (MAP) Pulse Ox O2 Delivery O2 Flow Rate FiO2 05/07/17 22:31 179/115 05/07/17 22:14 76 24 05/07/17 22:01 168/115 05/07/17 21:44 75 27 05/07/17 21:31 159/111 05/07/17 21:14 74 25 95 05/07/17 21:09 77 20 05/07/17 21:01 167/113 05/07/17 20:39 80 22 95 05/07/17 20:34 83 28 94 05/07/17 20:31 183/96 05/07/17 20:25 82 05/07/17 20:24 179/105 05/07/17 20:16 176/150 05/07/17 20:04 36.8 83 18 179/105 96 Room Air Physical Exam GENERAL: Patient is awake, alert, somewhat anxious appearing, but comfortable. EYES: The conjunctivae are clear. The pupils are round and reactive. EARS, NOSE, MOUTH AND THROAT: The nose is without any evidence of any deformity. Mucous membranes are moist tongue is midline NECK: The neck is nontender and supple. RESPIRATORY: Normal respiratory effort is noted there is no evidence of wheezing rhonchi or rales CARDIOVASCULAR: Regular rate and rhythm noted there no murmurs rubs or gallops normal S1 normal S2 GASTROINTESTINAL: The abdomen is soft. Bowel sounds are present in all quadrants. Abdomen is nontender MUSCULOSKELETAL/EXTREMITIES: There is no evidence of gross deformity full range of motion is noted in the hips and shoulders SKIN: Cool, diaphoretic. No pedal edema. NEUROLOGIC: Patient is awake alert and oriented x3 Medical Decision & Procedures ER Provider Diagnostic Interpretation: Radiology results as stated below per my review and radiologist interpretation: CHEST ONE VIEW PORTABLE CLINICAL HISTORY: Chest pain. COMPARISON STUDY: Chest radiograph April 10, 2017. FINDINGS: Lung volumes are at the lower limits of normal. There is no pneumothorax or pleural effusion. Cardiomediastinal silhouette is stable. There is no evidence of pulmonary edema. IMPRESSION: No acute cardiopulmonary findings. Electronically signed by: Lukas Duke M.D. 05/07/2017 8:43 PM Dictated Date/Time: 05/07/2017 8:42 PM Laboratory Results 05/07/17 20:15 Red Blood Count 4.69, Mean Corpuscular Volume 90.6, Mean Corpuscular Hemoglobin 31.3, Mean Corpuscular Hemoglobin Concent 34.6, Mean Platelet Volume 12.6, Neutrophils (%) (Auto) 55.9, Lymphocytes (%) (Auto) 34.0, Monocytes (%) (Auto) 7.8, Eosinophils (%) (Auto) 1.8, Basophils (%) (Auto) 0.3, Neutrophils # (Auto) 5.69, Lymphocytes # (Auto) 3.45, Monocytes # (Auto) 0.79, Eosinophils # (Auto) 0.18, Basophils # (Auto) 0.03 05/07/17 20:15 Test 05/07/17 20:15 05/07/17 23:06 White Blood Count 10.16 K/uL (4.8-10.8) Red Blood Count 4.69 M/uL (4.7-6.1) Hemoglobin 14.7 g/dL (14.0-18.0) Hematocrit 42.5 % (42-52) Mean Corpuscular Volume 90.6 fL (80-100) Mean Corpuscular Hemoglobin 31.3 pg (25-34) Mean Corpuscular Hemoglobin Concent 34.6 g/dl (32-36) Platelet Count 229 K/uL (130-400) Mean Platelet Volume 12.6 fL (7.4-10.4) Neutrophils (%) (Auto) 55.9 % Lymphocytes (%) (Auto) 34.0 % Monocytes (%) (Auto) 7.8 % Eosinophils (%) (Auto) 1.8 % Basophils (%) (Auto) 0.3 % Neutrophils # (Auto) 5.69 K/uL (1.4-6.5) Lymphocytes # (Auto) 3.45 K/uL (1.2-3.4) Monocytes # (Auto) 0.79 K/uL (0.11-0.59) Eosinophils # (Auto) 0.18 K/uL (0-0.5) Basophils # (Auto) 0.03 K/uL (0-0.2) RDW Standard Deviation 46.9 fL (36.4-46.3) RDW Coefficient of Variation 14.3 % (11.5-14.5) Immature Granulocyte % (Auto) 0.2 % Immature Granulocyte # (Auto) 0.02 K/uL (0.00-0.02) Prothrombin Time 11.5 SECONDS (9.0-12.0) Prothromb Time International Ratio 1.1 (0.9-1.1) Activated Partial Thromboplast Time 28.9 SECONDS (21.0-31.0) Partial Thromboplastin Ratio 1.1 Anion Gap 9.0 mmol/L (3-11) Est Creatinine Clear Calc Drug Dose 108.7 ml/min Estimated GFR () 76.9 Estimated GFR (Non- 66.4 BUN/Creatinine Ratio 8.2 (10-20) Calcium Level 9.3 mg/dl (8.5-10.1) Total Bilirubin 0.3 mg/dl (0.2-1) Direct Bilirubin 0.1 mg/dl (0-0.2) Aspartate Amino Transf (AST/SGOT) 296 U/L (15-37) Alanine Aminotransferase (ALT/SGPT) 256 U/L (12-78) Alkaline Phosphatase 135 U/L (45-117) Total Creatine Kinase 1444 U/L (39-308) Creatine Kinase MB 7.2 ng/ml (0.5-3.6) Creatine Kinase MB Ratio 0.5 (0-3.0) Troponin I < 0.015 ng/ml (0-0.045) Total Protein 9.1 gm/dl (6.4-8.2) Albumin 3.8 gm/dl (3.4-5.0) Lipase 283 U/L (73-393) Bedside Glucose 93 mg/dl (70-99) Laboratory results per my review. Medications Administered Medications (Trade) Dose Ordered Sig/Roxie Route Start Time Stop Time Status Last Admin Dose Admin Sodium Chloride 1,000 ml @ 999 mls/hr Q1H1M STAT IV 05/07/17 20:18 05/07/17 21:18 DC 05/07/17 20:28 999 MLS/HR Dextrose (Dextrose 50% 50ML Syringe) 50 ml NOW STAT IV 05/07/17 20:23 05/07/17 20:24 DC 05/07/17 20:29 50 ML ECG Indication: chest pain, other (hypoglycemia) Rate (beats per minute): 83 Rhythm: normal sinus Findings: T-wave inversion (Lateral), other (LVH by voltage criteria) Comparison ECG Date: 04/10/17 Change: no significant change ED Course 2009: The patient was evaluated in room B9. A complete history and physical examination were performed. 2018: NSS 1,000 ml @ 999 mls/hr IV 2022: Dextrose 50% 50ml syringe IV 2204: Upon reevaluation, the patient is feeling well. I discussed the results and treatment plan with him. He verbalized agreement of the treatment plan. He was discharged home. Medical Decision Differential diagnosis: Etiologies such as metabolic, infection, hypo/hyperglycemia, electrolyte abnormalities, cardiac sources, intracerebral event, toxicologic, neurologic, as well as others were entertained. Nursing notes reviewed. Additional history is obtained from the patient's significant other. The patient is a 46-year-old male who presented to emergency department for an evaluation of altered mental status. The patient was recently started on insulin for diabetes. He states that he is unsure but thinks she may have missed a meal earlier in the day. The patient was diaphoretic and hypoglycemic prior to arrival. He was treated with IV dextrose and oral dextrose in the emergency department. On subsequent reevaluation he was feeling much better. I discussed the patient's laboratory and radiographic studies with him. He doesn' t a history of having rhabdomyolysis in the past. He states that he is currently being referred for this condition. The patient was reevaluated multiple times. He was given a full meal in the emergency department. He was encouraged to continue all medications as prescribed. He was also encouraged to rest and avoid any strenuous activity. He was also encouraged to return to the emergency Department immediately if symptoms change worsen or the need arises. Medication Reconcilliation Current Medication List: was personally reviewed by me Blood Pressure Screening Patient's blood pressure: Elevated blood pressure Blood pressure disposition: Referred to PCP Impression Primary Impression: Precordial chest pain Additional Impressions: Hypoglycemia Rhabdomyolysis Scribe Attestation The scribe's documentation has been prepared under my direction and personally reviewed by me in its entirety. I confirm that the note above accurately reflects all work, treatment, procedures, and medical decision making performed by me. Departure Information Dispostion Home / Self-Care Referrals Edgardo Azevedo D.O. (PCP) Forms HOME CARE DOCUMENTATION FORM, IMPORTANT VISIT INFORMATION, WORK / SCHOOL INSTRUCTIONS, Work Instructions Patient Instructions Hypoglycemia, My [facility] Additional Instructions Continue all medications as prescribed. Follow-up with your doctor tomorrow. Continue to monitor your blood sugar 4-5 times a day. Do not miss any meals. Return to the emergency department immediately if symptoms change worsen or the need arises. Problem Qualifiers Additional Impressions: Rhabdomyolysis Rhabdomyolysis type: non-traumatic Qualified Codes: M62.82 - Rhabdomyolysis
[2017-05-07] MEDS ORDERED: LSN5 PO (21:13)
[2017-05-08 00:24] VITALS: BP 151/95; PULSE 75; O2SAT 98
[2017-06-15] MEDS ORDERED: METO1TAB69 PO ×2 (11:39→12:07)
[2017-06-15] MEDS ORDERED: SENN-65 PO ×2 (11:39→12:07)
[2017-06-15] MEDS ORDERED: MRLP17X OR ×2 (11:39→12:07)
[2017-07-24] MEDS ORDERED: OXYC1TAB3 PO (19:08)
[2017-07-24] MEDS ORDERED: CYCL10TA6 PO (19:08)
[2017-07-24] MEDS ORDERED: NVLG SQ (19:08)
[2017-07-24] MEDS ORDERED: PANT40TA PO (19:08)
[2017-07-24] MEDS ORDERED: ESCI10TA17 PO (19:08)
[2017-07-24] MEDS ORDERED: INSDGIPEN SQ (19:08)
[2017-07-24] MEDS ORDERED: ESCI1TAB18 PO (19:08)
[2017-07-24] MEDS ORDERED: METFTAB PO (19:08)
== END 2017-05-08 00:25 | disposition home or self-care (01) ==
LOC: EDBD 20:04 → C.EDB 20:05
DX: R07.2 Precordial pain (principal); E11.649 Type 2 diabetes mellitus with hypoglycemia without coma; M62.82 Rhabdomyolysis; E11.22 Type 2 diabetes mellitus with diabetic chronic kidney disease; N18.3 Chronic kidney disease, stage 3 (moderate); I12.9 Hypertensive chronic kidney disease with stage 1 through stage 4 chronic kidney disease, or unspecified chronic kidney disease; F41.9 Anxiety disorder, unspecified; F32.9 Major depressive disorder, single episode, unspecified; K21.9 Gastro-esophageal reflux disease without esophagitis; E78.5 Hyperlipidemia, unspecified; Z86.711 Personal history of pulmonary embolism; Z86.718 Personal history of other venous thrombosis and embolism; Z79.4 Long term (current) use of insulin; Z79.84 Long term (current) use of oral hypoglycemic drugs; Z83.2 Family history of diseases of the blood and blood-forming organs and certain disorders involving the immune mechanism

== ENCOUNTER 2017-06-13 00:16 | Inpatient (IN) | payer OTHER ==
[~2017-06-13] VITALS: Ht 188 cm; Wt 132.8 kg
[~2017-06-13 00:16] MED LIST changes: +LSN5 PO
[2017-06-13] MEDS ORDERED: LIDOCAINE HCL 2% VISC SOLN 20 ML UDC PO STA (00:52)
[2017-06-13] MEDS ORDERED: ALUMINUM/MAGNESIUM SUSP 30 ML UDC PO STA (00:52)
[2017-06-13 01:04] LABS: BASO % 0.7 %; BASO ABS # 0.05 K/uL (0-0.2); COMPLETE YES; EOS % 2.7 %; IG% 0.1 %; LYMPH % 40.6 %; LYMPH ABS # 3.06 K/uL (1.2-3.4); MEAN CELL VOLUME 88.1 fL (80-100); MEAN CORPUSCULAR HEMOGLOBIN 31.2 pg (25-34); MEAN CORPUSCULAR HGB CONC 35.5 g/dl (32-36); MONO % 5.7 %; NEUT % 50.2 %; PLATELET COUNT 184 K/uL (130-400); RED BLOOD COUNT 4.77 M/uL (4.7-6.1); WHITE BLOOD COUNT 7.53 K/uL (4.8-10.8)
[2017-06-13 01:30] LABS: INR 1.2 (0.9-1.1); PARTIAL THROMBOPLASTIN RATIO 1.3; PROTHROMBIN TIME (PATIENT) 13.4 SECONDS (9.0-12.0)
[2017-06-13 01:52] LABS: ALKALINE PHOSPHATASE 137 U/L (45-117); ALT/SGPT 244 U/L (12-78); AST/SGOT 243 U/L (15-37); BLOOD UREA NITROGEN 11 mg/dl (7-18); BUN/CREATININE RATIO 7.4 (10-20); CARBON DIOXIDE 23 mmol/L (21-32); CHLORIDE 105 mmol/L (98-107); GLUCOSE 211 mg/dl (70-99); POTASSIUM 3.6 mmol/L (3.5-5.1); SODIUM 138 mmol/L (136-145)
[2017-06-13] MEDS ORDERED: SUCRALFATE 1 GM/10 ML UDC PO STA (02:19)
[2017-06-13 03:08] LABS: CKMB/CK RATIO 0.6 (0-3.0)
[2017-06-13] MEDS ORDERED: ONDANSETRON INJ 2 MG/ML 2 ML VIAL IV STA (03:23)
[2017-06-13] MEDS ORDERED: SODIUM CHLORIDE 0.9% 1000ML 1,000 ML IV STA ×2 (03:23)
[2017-06-13] MEDS ORDERED: MoRPHine SULFATE 4 MG/ML 1 ML CARP\\VIAL IV STA (03:23)
[2017-06-13] MEDS ORDERED: PANTOprazole INJ 80 MG in DEXTROSE 5% 100ML 100 ML IV SCH (03:30)
[2017-06-13] MEDS ORDERED: ONDANSETRON INJ 2 MG/ML 2 ML VIAL IV PRN (05:30)
--- NOTE | 2017-06-13 05:43 | EMERGENCY ROOM VISIT NOTE ---
History First contact with patient: 00:34 Chief Complaint: ABDOMINAL PAIN Stated Complaint: SEVERE STOMACH & BACK PAIN.BLEEDING WITH GOING TO History of Present Illness The patient is a 47 year old male who presents to the Emergency Room with complaints of epigastric discomfort for the past few days who was on Protonix and pain is currently 5 out of 10. Nothing makes it better or worse. It Does not radiate. Patient states today he had 2 episodes of blood in his stool. His stools are brown. He has a history of a fissure that was repaired by GI in 2012. Patient denies chest pain, dyspnea, nausea, vomiting, diarrhea, black stool, urinary symptoms, fever, chills. No prior heart disease. No history of stroke. He has had GI bleeding in the past. He is on Xarelto. Review of Systems See HPI for pertinent positives & negatives. A total of 10 systems reviewed and were otherwise negative. Past Medical/Surgical History Medical Problems: (1) Abdominal pain (2) BRIDGETTE (acute kidney injury) (3) Anxiety (4) Blood clot in vein (5) Chest pain (6) Chest pain (7) Chest wall pain (8) CKD (chronic kidney disease), stage III (9) Costochondritis (10) Depression (11) Diabetes (12) Elevated CK (13) Elevated CK (14) Elevated CPK (15) Essential hypertension (16) Fever and chills (17) GERD (gastroesophageal reflux disease) (18) GI bleed (19) Hemoptysis (20) History of esophageal ulcer (21) History of pleural effusion (22) Hx of pulmonary embolus (23) Hyperglycemia (24) Hyperlipidemia (25) Hypertension (26) Myositis (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 (28) Pharyngitis (29) Pleuritic chest pain (30) Prediabetes (31) Substernal chest pain (32) Suspected pulmonary embolism (33) Transaminitis Surgical Problems: (1) H/O colonoscopy (2) H/O esophagogastroduodenoscopy (3) History of muscle biopsy (4) History of rectal surgery (5) S/P cardiac catheterization Family History Blood clots FH: brain aneurysm MOTHER (mother, age 32) Social History Smoking Status: Never Smoker Alcohol Use: occasionally Drug Use: none Marital Status: single Housing Status: lives alone Occupation Status: disabled Current/Historical Medications Scheduled Alprazolam (Xanax), 1 MG PO TID Escitalopram (Lexapro), 10 MG PO DAILY Escitalopram Oxalate (Lexapro), 20 MG PO DAILY Insulin Aspart (Novolog Flexpen), 12 UNITS SC ACHS Insulin Glargine (Lantus Solostar), 50 UNITS SQ QAM Lisinopril (Lisinopril), 1 TAB PO DAILY Metformin Ext Rel (Glucophage Ext Rel), 500 MG PO DAILY Methylphenidate (Ritalin), 20 MG PO BID Metoprolol Succ (Toprol Xl) (Toprol-Xl ), 150 MG PO DAILY Pantoprazole (Protonix), 40 MG PO DAILY Rivaroxaban (Xarelto), 20 MG PO DAILY Zolpidem Tartrate (Ambien), 10 MG PO HS Scheduled PRN Cyclobenzaprine Hcl (Flexeril), 10 MG PO TID PRN for SPASMS Fluticasone Propionate (Nasal) (Flonase Allergy Relief), 2 SPRAYS WALDEMAR DAILY PRN for ALLERGIC REACTION Oxycodone Ir (Roxicodone Ir), 10 MG PO Q4H PRN for Severe Pain Allergies Coded Allergies: Iodine (Verified Allergy, Severe, THROAT SWELLING, 06/13/17) 02/18/13: patient denies IV contrast allergy Patient has been pre-treated in the past with methylprednisolone and diphenhydramine without incident following IV dye administration. Shellfish (Verified Allergy, Severe, THROAT SWELLING, 06/13/17) Iodinated Diagnostic Agents (Verified Allergy, Unknown, swelling, 06/13/17) Plasma, Human (Verified Allergy, Unknown, ANAPHYLAXIS, 06/13/17) Acetaminophen (Verified Adverse Reaction, Unknown, GI ISSUES, 06/13/17) Hydrocodone (Verified Adverse Reaction, Unknown, GI ISSUES, 06/13/17) Physical Exam Vital Signs Date Time Temp Pulse Resp B/P (MAP) Pulse Ox O2 Delivery O2 Flow Rate FiO2 06/13/17 03:51 101 18 159/105 96 Room Air 06/13/17 02:04 86 18 149/90 95 Room Air 06/13/17 00:19 37.2 109 18 151/90 95 Room Air Physical Exam VITALS: Vitals are noted on the nurse's note and reviewed by myself. Vital signs stable. GENERAL: Pleasant male, in no acute distress, nondiaphoretic, well-developed well-nourished. SKIN: The skin was without rashes, erythema, edema, or bruising. There is no tenting of the skin. Capillary reflex less than 2 seconds. HEAD: Normocephalic atraumatic. EARS: External auditory canals clear, tympanic membranes pearly conte without erythema or effusion bilaterally. EYES: Pupils equal round and reactive to light and accommodation. Conjunctivae without injection, sclerae without icterus. Extraocular movements intact. NOSE: Patent, turbinates without inflammation or discharge. MOUTH: Mucous membranes moist. Pharynx without erythema or exudate. Uvula midline. Airway patent. Tongue does not deviate. NECK: Supple without nuchal rigidity. No lymphadenopathy. No thyromegaly. Cervical spine is nontender. No JVD. HEART: Regular rate and rhythm LUNGS: Clear to auscultation bilaterally without wheezes, rales or rhonchi. No dullness to percussion. No retractions or accessory muscle use. ABDOMEN: Positive bowel sounds x 4. Normal tympanic percussion. Soft, minimally tender epigastric region, no CVA tenderness, without masses or organomegaly. Blair sign negative. No guarding or rebound tenderness. Rectal exam: Brown stool, guaiac positive, no external hemorrhoids appreciated, acquisitions analyst present MUSCULOSKELETAL: No muscle atrophy, erythema, or edema noted. NEURO: Patient was alert and oriented to person place and time. Normal sensation to light and sharp touch. No focal neurological deficits. Medical Decision & Procedures Laboratory Results 06/13/17 00:35 Red Blood Count 4.77, Mean Corpuscular Volume 88.1, Mean Corpuscular Hemoglobin 31.2, Mean Corpuscular Hemoglobin Concent 35.5, Mean Platelet Volume 13.0, Neutrophils (%) (Auto) 50.2, Lymphocytes (%) (Auto) 40.6, Monocytes (%) (Auto) 5.7, Eosinophils (%) (Auto) 2.7, Basophils (%) (Auto) 0.7, Neutrophils # (Auto) 3.78, Lymphocytes # (Auto) 3.06, Monocytes # (Auto) 0.43, Eosinophils # (Auto) 0.20, Basophils # (Auto) 0.05 06/13/17 00:35 Test 06/13/17 00:35 06/13/17 01:03 White Blood Count 7.53 K/uL (4.8-10.8) Red Blood Count 4.77 M/uL (4.7-6.1) Hemoglobin 14.9 g/dL (14.0-18.0) Hematocrit 42.0 % (42-52) Mean Corpuscular Volume 88.1 fL (80-100) Mean Corpuscular Hemoglobin 31.2 pg (25-34) Mean Corpuscular Hemoglobin Concent 35.5 g/dl (32-36) Platelet Count 184 K/uL (130-400) Mean Platelet Volume 13.0 fL (7.4-10.4) Neutrophils (%) (Auto) 50.2 % Lymphocytes (%) (Auto) 40.6 % Monocytes (%) (Auto) 5.7 % Eosinophils (%) (Auto) 2.7 % Basophils (%) (Auto) 0.7 % Neutrophils # (Auto) 3.78 K/uL (1.4-6.5) Lymphocytes # (Auto) 3.06 K/uL (1.2-3.4) Monocytes # (Auto) 0.43 K/uL (0.11-0.59) Eosinophils # (Auto) 0.20 K/uL (0-0.5) Basophils # (Auto) 0.05 K/uL (0-0.2) RDW Standard Deviation 43.0 fL (36.4-46.3) RDW Coefficient of Variation 13.3 % (11.5-14.5) Immature Granulocyte % (Auto) 0.1 % Immature Granulocyte # (Auto) 0.01 K/uL (0.00-0.02) Prothrombin Time 13.4 SECONDS (9.0-12.0) Prothromb Time International Ratio 1.2 (0.9-1.1) Activated Partial Thromboplast Time 33.9 SECONDS (21.0-31.0) Partial Thromboplastin Ratio 1.3 Anion Gap 10.0 mmol/L (3-11) Est Creatinine Clear Calc Drug Dose 90.1 ml/min Estimated GFR () 64.2 Estimated GFR (Non- 55.4 BUN/Creatinine Ratio 7.4 (10-20) Calcium Level 9.0 mg/dl (8.5-10.1) Total Bilirubin 0.3 mg/dl (0.2-1) Direct Bilirubin < 0.1 mg/dl (0-0.2) Aspartate Amino Transf (AST/SGOT) 243 U/L (15-37) Alanine Aminotransferase (ALT/SGPT) 244 U/L (12-78) Alkaline Phosphatase 137 U/L (45-117) Total Creatine Kinase 1509 U/L (39-308) Creatine Kinase MB 9.2 ng/ml (0.5-3.6) Creatine Kinase MB Ratio 0.6 (0-3.0) Troponin I 0.021 ng/ml (0-0.045) Total Protein 8.3 gm/dl (6.4-8.2) Albumin 3.7 gm/dl (3.4-5.0) Lipase 211 U/L (73-393) Chemistry Specimen Hemolysis Bedside Troponin I < 0.030 ng/ml (0-0.045) Medications Administered Medications (Trade) Dose Ordered Sig/Roxie Route Start Time Stop Time Status Last Admin Dose Admin Lidocaine HCl (Viscous Lidocaine 2% Soln) 10 ml NOW STAT PO 06/13/17 00:52 06/13/17 00:54 DC 06/13/17 01:15 10 ML Al Hydroxide/Mg Hydroxide (Maalox Susp) 30 ml NOW STAT PO 06/13/17 00:52 06/13/17 00:54 DC 06/13/17 01:15 30 ML Sucralfate (Carafate Susp) 1 gm NOW STAT PO 06/13/17 02:19 06/13/17 02:21 DC 06/13/17 02:29 1 GM Morphine Sulfate (MoRPHine SULFATE INJ) 4 mg NOW STAT IV 06/13/17 03:23 06/13/17 03:25 DC 06/13/17 03:45 4 MG Ondansetron HCl (Zofran Inj) 4 mg NOW STAT IV 06/13/17 03:23 06/13/17 03:25 DC 06/13/17 03:44 4 MG Pantoprazole Sodium 80 mg/ Dextrose 120 ml @ 400 mls/hr NOW IV 06/13/17 03:30 07/13/17 03:29 06/13/17 04:14 400 MLS/HR Sodium Chloride 1,000 ml @ 999 mls/hr Q1H1M STAT IV 06/13/17 03:23 06/13/17 04:23 DC 06/13/17 03:42 999 MLS/HR Sodium Chloride 1,000 ml @ 125 mls/hr Q8H STAT IV 06/13/17 03:23 06/13/17 11:22 06/13/17 04:51 125 MLS/HR ED Course Prior records/ancillary studies reviewed. Triage Nursing notes reviewed. The patient's history was concerning for possible gastrointestinal bleeding. Differential diagnosis: Etiologies such as diverticulosis, AVM, coagulopathy, colitis, inflammatory bowel disease, malignancy, [place]-Pop tear, esophagitis, peptic ulcer disease , variceal bleed, gastritis, epistaxis, fissure, hemorrhoids, as well as others were entertained. Physical exam: As above. The patients vital signs were stable. ER treatment provided: GI cocktail On reassessment the patient felt better. Diagnostics interpreted by me: ECG: Normal sinus, T-wave inversions in the lateral leads, rate of 101, impression sinus tachycardia with T-wave inversions in lateral leads interpreted by myself. EKG compared to prior EKG from April 2017 and unchanged. The labs revealed negative troponin. Mildly elevated LFTs unchanged from prior. Negative hepatitis panel from a few months ago from chart review Imaging studies: Ultrasound negative for cholecystitis Chest x-ray with no acute consolidation, pneumothorax or free air per my interpretation Consultation: A consultation was placed with Dr. Esteves, hospitalist. The case was discussed and diagnostics were reviewed. The patient was evaluated in the ER for further treatment. This appears to be consistent with epigastric discomfort with rectal bleeding he was on Xarelto. Patient does not have acute abdomen on exam. Patient had another bloody bowel movement while in the ER. He is currently on Xarelto. He will be evaluated by medicine for possible admission. By the evaluation outlined above emergent etiologies such as esophageal perforation, variceal bleed, gastritis, epistaxis, malignancy, inflammatory bowel disease, as well as others were deemed relatively unlikely. The pt informed about the findings as listed above. All questions were answered and pleased with the treatment. Case reviewed with my attending Medical Decision as above Impression Primary Impression: GI bleeding Additional Impression: Rectal bleeding Departure Information Dispostion Being Evaluated By Hospitalist Condition FAIR Referrals Edgardo Azevedo D.O. (PCP) Patient Instructions My [facility] Problem Qualifiers Primary Impression: GI bleeding GI bleed type/associated pathology: unspecified gastrointestinal hemorrhage type Qualified Codes: K92.2 - Gastrointestinal hemorrhage, unspecified
--- NOTE | 2017-06-13 05:51 | History and Physical ---
History & Physical Date & Time of Service: Jun 13, 2017 at 05:34 Chief Complaint: Severe Stomach & Back Pain.bleeding With Going To Primary Care Physician: Edgardo Azevedo D.O. History of Present Illness Source: patient 47 y/o M Hx hypercoagulable state, multiple PEs, DM, HTN, esophageal ulcer, Chronic myositis - chronically elevated CK and chronic LFT elevation. The pt is prescribed Xarelto for PEs. He developed upper abdominal pain earlier in the day which was followed by black/tarry stool. He presented to the ER where he had an additional episode of Melena. He denies CP, SOB or lightheadedness. Initial Hb was WNL. The pt's vital signs are stable at the time of admission. Past Medical/Surgical History Medical Problems: (1) BRIDGETTE (acute kidney injury) Status: Resolved (2) Anxiety Status: Chronic (3) Blood clot in vein Status: Resolved (4) Chest pain Status: Resolved (5) Chest pain Status: Resolved (6) Chest wall pain Status: Resolved (7) CKD (chronic kidney disease), stage III Status: Chronic (8) Costochondritis Status: Chronic (9) Depression Status: Chronic (10) Elevated CK Status: Chronic (11) Elevated CK Status: Resolved (12) Elevated CPK Status: Resolved (13) Essential hypertension Status: Chronic (14) GERD (gastroesophageal reflux disease) Status: Chronic (15) Hemoptysis Status: Resolved (16) History of esophageal ulcer Permanent Comment: on EGD 06/23/2014 Status: Chronic (17) History of pleural effusion Status: Resolved (18) Hx of pulmonary embolus Status: Chronic (19) Hyperglycemia Status: Resolved (20) Hyperlipidemia Status: Chronic (21) Hypertension Status: Chronic (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 (23) Pharyngitis Status: Resolved (24) Pleuritic chest pain Status: Resolved (25) Prediabetes Status: Chronic (26) Substernal chest pain Status: Resolved (27) Suspected pulmonary embolism Status: Resolved Surgical Problems: (1) H/O colonoscopy Status: Chronic (2) H/O esophagogastroduodenoscopy Permanent Comment: [id number]- esophageal ulcer 06/24/2014- bleeding esophageal ulcer 08/29/2014- Grade B reflux esophagitis 11/21/2014- mild-moderate inflammation Status: Chronic (3) History of muscle biopsy Status: Chronic (4) History of rectal surgery Status: Chronic (5) S/P cardiac catheterization Permanent Comment: 2012- normal coronary arteries Status: Chronic Family History Blood clots FH: brain aneurysm MOTHER (mother, age 32) Social History Smoking Status: Never Smoker Drug Use: none Marital Status: single Housing status: lives with family Occupational Status: disabled Immunizations History of Influenza Vaccine: Yes Influenza Vaccine Date: Jul 18, 2013 History of Tetanus Vaccine?: 2008 Tetanus Immunization Date: Aug 21, 2009 History of Pneumococcal: No History of Hepatitis B Vaccine: No Multi-Drug Resistant Organisms History of MDRO: No Allergies Coded Allergies: Iodine (Verified Allergy, Severe, THROAT SWELLING, 06/13/17) 02/18/13: patient denies IV contrast allergy Patient has been pre-treated in the past with methylprednisolone and diphenhydramine without incident following IV dye administration. Shellfish (Verified Allergy, Severe, THROAT SWELLING, 06/13/17) Iodinated Diagnostic Agents (Verified Allergy, Unknown, swelling, 06/13/17) Plasma, Human (Verified Allergy, Unknown, ANAPHYLAXIS, 06/13/17) Acetaminophen (Verified Adverse Reaction, Unknown, GI ISSUES, 06/13/17) Hydrocodone (Verified Adverse Reaction, Unknown, GI ISSUES, 06/13/17) Home Medications Scheduled Alprazolam (Xanax), 1 MG PO TID Escitalopram (Lexapro), 10 MG PO DAILY Escitalopram Oxalate (Lexapro), 20 MG PO DAILY Insulin Aspart (Novolog Flexpen), 12 UNITS SC ACHS Insulin Glargine (Lantus Solostar), 50 UNITS SQ QAM Lisinopril (Lisinopril), 1 TAB PO DAILY Metformin Ext Rel (Glucophage Ext Rel), 500 MG PO DAILY Methylphenidate (Ritalin), 20 MG PO BID Metoprolol Succ (Toprol Xl) (Toprol-Xl ), 150 MG PO DAILY Pantoprazole (Protonix), 40 MG PO DAILY Rivaroxaban (Xarelto), 20 MG PO DAILY Zolpidem Tartrate (Ambien), 10 MG PO HS Scheduled PRN Cyclobenzaprine Hcl (Flexeril), 10 MG PO TID PRN for SPASMS Fluticasone Propionate (Nasal) (Flonase Allergy Relief), 2 SPRAYS WALDEMAR DAILY PRN for ALLERGIC REACTION Oxycodone Ir (Roxicodone Ir), 10 MG PO Q4H PRN for Severe Pain Physical Exam Vital Signs Date Time Temp Pulse Resp B/P (MAP) Pulse Ox O2 Delivery O2 Flow Rate FiO2 06/13/17 03:51 101 18 159/105 96 Room Air 06/13/17 02:04 86 18 149/90 95 Room Air 06/13/17 00:19 37.2 109 18 151/90 95 Room Air General Appearance: WD/WN, no apparent distress Head: normocephalic Eyes: normal inspection ENT: pharynx normal Neck: supple, no JVD Respiratory/Chest: chest non-tender, lungs clear, normal breath sounds Cardiovascular: regular rate, rhythm, no edema, no gallop, no JVD Abdomen/GI: normal bowel sounds, non tender, soft Back: normal inspection, no CVA tenderness, no muscle spasm, normal range of motion Extremities/Musculoskelatal: normal inspection, no calf tenderness, normal capillary refill, no pedal edema, normal range of motion Neurologic/Psych: 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-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 nml as tested, no motor/sensory deficits, alert, oriented x 3 Skin: normal color Diagnostics Laboratory Results Results Past 24 Hours Test 06/13/17 00:35 06/13/17 01:03 Range/Units White Blood Count 7.53 4.8-10.8 K/uL Red Blood Count 4.77 4.7-6.1 M/uL Hemoglobin 14.9 14.0-18.0 g/dL Hematocrit 42.0 42-52 % Mean Corpuscular Volume 88.1 80-100 fL Mean Corpuscular Hemoglobin 31.2 25-34 pg Mean Corpuscular Hemoglobin Concent 35.5 32-36 g/dl Platelet Count 184 130-400 K/uL Mean Platelet Volume 13.0 7.4-10.4 fL Neutrophils (%) (Auto) 50.2 % Lymphocytes (%) (Auto) 40.6 % Monocytes (%) (Auto) 5.7 % Eosinophils (%) (Auto) 2.7 % Basophils (%) (Auto) 0.7 % Neutrophils # (Auto) 3.78 1.4-6.5 K/uL Lymphocytes # (Auto) 3.06 1.2-3.4 K/uL Monocytes # (Auto) 0.43 0.11-0.59 K/uL Eosinophils # (Auto) 0.20 0-0.5 K/uL Basophils # (Auto) 0.05 0-0.2 K/uL RDW Standard Deviation 43.0 36.4-46.3 fL RDW Coefficient of Variation 13.3 11.5-14.5 % Immature Granulocyte % (Auto) 0.1 % Immature Granulocyte # (Auto) 0.01 0.00-0.02 K/uL Prothrombin Time 13.4 9.0-12.0 SECONDS Prothromb Time International Ratio 1.2 0.9-1.1 Activated Partial Thromboplast Time 33.9 21.0-31.0 SECONDS Partial Thromboplastin Ratio 1.3 Sodium Level 138 136-145 mmol/L Potassium Level 3.6 3.5-5.1 mmol/L Chloride Level 105 98-107 mmol/L Carbon Dioxide Level 23 21-32 mmol/L Anion Gap 10.0 3-11 mmol/L Blood Urea Nitrogen 11 7-18 mg/dl Creatinine 1.50 0.60-1.40 mg/dl Est Creatinine Clear Calc Drug Dose 90.1 ml/min Estimated GFR () 64.2 Estimated GFR (Non- 55.4 BUN/Creatinine Ratio 7.4 10-20 Random Glucose 211 70-99 mg/dl Calcium Level 9.0 8.5-10.1 mg/dl Total Bilirubin 0.3 0.2-1 mg/dl Direct Bilirubin < 0.1 0-0.2 mg/dl Aspartate Amino Transf (AST/SGOT) 243 15-37 U/L Alanine Aminotransferase (ALT/SGPT) 244 12-78 U/L Alkaline Phosphatase 137 45-117 U/L Total Creatine Kinase 1509 39-308 U/L Creatine Kinase MB 9.2 0.5-3.6 ng/ml Creatine Kinase MB Ratio 0.6 0-3.0 Troponin I 0.021 0-0.045 ng/ml Total Protein 8.3 6.4-8.2 gm/dl Albumin 3.7 3.4-5.0 gm/dl Lipase 211 73-393 U/L Chemistry Specimen Hemolysis Bedside Troponin I < 0.030 0-0.045 ng/ml Impression Assessment and Plan 47 y/o M Hx hypercoagulable state, multiple PEs, DM, HTN, esophageal ulcer, Chronic myositis - chronically elevated CK and chronic LFT elevation. The pt is prescribed Xarelto for PEs. He developed upper abdominal pain earlier in the day which was followed by black/tarry stool. He presented to the ER where he had an additional episode of Melena. He denies CP, SOB or lightheadedness. Initial Hb was WNL. The pt's vital signs are stable at the time of admission. 1) GI bleed - likely upper - we will obtain serial Hbs, IVF, NPO, GI consult - hold Xarelto, placed on Protonix drip. 2) Multiple PEs - Will need to restart anticoagulation at earliest time - this may merit early endoscopy regardless if bleeding resolves. 3) Chronic myositis and CK, LFT elevations - Labs are approximately at baseline. 4) DM - placed on SS - long-acting held while NPO 5) HTN - Cont B tristan - Lisinopril held for potential procedure Full code - SCDs Total time for this admit including review of labs, meds, extensive records - discussion with pt and ER attending - 38 min Level of Care Med/Surg Resuscitation Status FULL RESUSCITATION VTE Prophylaxis VTE Risk Assessment Done? Y/N: Yes Risk Level: High Given or contraindicated: SCD's
[2017-06-13 06:20] VITALS: BP 147/87; PULSE 104; TEMP 36.8; O2SAT 95; Ht 188 cm; Wt 132.8 kg
[2017-06-13] MEDS ORDERED: NSS + 20MEQ KCL 1000ML 1,000 ML IV SCH (06:30)
[2017-06-13] MEDS: MoRPHine SULFATE 4 MG/ML 1 ML CARP\\VIAL IV PRN ×5 (06:37→21:32)
[2017-06-13] MEDS: PANTOprazole INJ 40 MG in DEXTROSE 5% 100ML IV SCH ×4 (06:46→21:31)
--- NOTE | 2017-06-13 07:17 | DIAGNOSTIC IMAGING REPORT ---
CHEST ONE VIEW PORTABLE CLINICAL HISTORY: 47 years-old Male presenting with CHEST PAIN. TECHNIQUE: Portable upright AP view of the chest was obtained. COMPARISON: 05/07/2017. FINDINGS: Cardiomediastinal silhouette normal. Lungs and pleural spaces clear. Osseous structures normal. Upper abdomen normal. IMPRESSION: 1. No acute cardiopulmonary disease. Electronically signed by: Ras Day M.D. 06/13/2017 7:15 AM Dictated Date/Time: 06/13/2017 7:15 AM
--- NOTE | 2017-06-13 07:19 | DIAGNOSTIC IMAGING REPORT ---
GALLBLADDER-ABD LIMITED CLINICAL HISTORY: 47 years-old Male presenting with epigastric pain, nausea, hematochezia, abdominal pain for 2 days. TECHNIQUE: Real-time grayscale and limited color Doppler ultrasound imaging of the abdomen limited to the right upper quadrant was performed. COMPARISON: 04/10/2017. FINDINGS: Pancreas: Obscured due to overlying bowel gas. Liver: Moderately hyperechogenic parenchyma with partial obscuration of the right hemidiaphragm, likely indicating moderate steatosis. The liver measures 20 cm in maximal sagittal dimension. Hypoechoic region in the gallbladder fossa likely represents fatty sparing. Main portal vein patent with normal directional flow. Biliary: No intrahepatic biliary ductal dilatation. Common bile duct measures up to 3-5 mm in diameter. Gallbladder: No evidence of gallstones, gallbladder wall thickening, gallbladder distention, or pericholecystic fluid or inflammatory change. Sonographic Blair's sign negative. Right kidney: Normal in appearance. No hydronephrosis. Ascites: None. IMPRESSION: 1. Hepatic steatosis. 2. Hepatomegaly. 3. No biliary ductal dilatation. No cholecystitis. Electronically signed by: Ras Day M.D. 06/13/2017 7:18 AM Dictated Date/Time: 06/13/2017 7:16 AM
[2017-06-13 07:20] VITALS: BP 171/107; PULSE 95; TEMP 37.3; O2SAT 92
[2017-06-13] MEDS: ESCITALOPRAM OXALATE 10 MG TAB PO SCH (08:59)
[2017-06-13] MEDS: ESCITALOPRAM OXALATE 20 MG TAB PO SCH (08:59)
[2017-06-13] MEDS: METOPROLOL SUCC 50MG EXT REL TAB PO SCH (09:00)
[2017-06-13] MEDS: ALPRAZOLAM 0.5 MG TAB PO SCH ×3 (09:04→21:31)
[2017-06-13] MEDS: INSULIN ASPART 100 UNITS/ML 3 ML PEN SC SCH ×4 (10:03→21:38)
--- NOTE | 2017-06-13 14:31 | Endo History and Physical ---
History & Physical Date of Service: Jun 13, 2017. Chief Complaint: Nausea, rectal bleeding Referring Physician: Dr Azevedo History of Present Illness For EGD Past Medical History Pulmonary Emboli, Anxiety, Reflux, Hypertension, Kidney Disease, Depression Past Surgical History Hx Cardiac Surgery: Yes (cath) Hx Internal Defibrillator: No Hx Pacemaker: No Hx Abdominal Surgery: Yes (colorectal-2013, abdominal fissure repair) Hx Post-Op Nausea and Vomiting: No Hx Cancer Surgery: No Hx Thoracic Surgery: No Hx Orthopedic: No Hx Urinary Tract Surgery: No Social History Smoking Status: Never Smoker Hx Substance Use: No Hx Alcohol Use: Yes (beer-seldom) Allergies Coded Allergies: Iodine (Verified Allergy, Severe, THROAT SWELLING, 06/13/17) 02/18/13: patient denies IV contrast allergy Patient has been pre-treated in the past with methylprednisolone and diphenhydramine without incident following IV dye administration. Shellfish (Verified Allergy, Severe, THROAT SWELLING, 06/13/17) Iodinated Diagnostic Agents (Verified Allergy, Unknown, swelling, 06/13/17) Plasma, Human (Verified Allergy, Unknown, ANAPHYLAXIS, 06/13/17) Acetaminophen (Verified Adverse Reaction, Unknown, GI ISSUES, 06/13/17) Hydrocodone (Verified Adverse Reaction, Unknown, GI ISSUES, 06/13/17) Current Medications Reported Home Medications Medications Dose Route/Sig Max Daily Dose Days Date Category Dose Instructions Lisinopril 5 Mg Tab 1 Tab PO DAILY 05/07/17 Reported Protonix (Pantoprazole Sodium) 40 Mg Tab 40 Mg PO DAILY 04/11/17 Rx Xarelto (Rivaroxaban) 20 Mg Tab 20 Mg PO DAILY 04/10/17 Reported Roxicodone Ir (Oxycodone HCl) 5 Mg Tab 10 Mg PO Q4H PRN 04/10/17 Reported Glucophage Ext Rel (Metformin HCl) 500 Mg Tab 500 Mg PO DAILY 04/10/17 Reported Flexeril (Cyclobenzaprine Hcl) 10 Mg Tab 10 Mg PO TID PRN 04/10/17 Reported Lantus Solostar (Insulin Glargine) 100 Unit/Ml Inj 50 Units SQ QAM 04/10/17 Reported Novolog Flexpen (Insulin Aspart) 100 Units/Ml Inj 12 Units SC ACHS 30 03/11/17 Rx please be sure the pen capacity will be enough for one month Lexapro (Escitalopram Oxalate) 20 Mg Tab 20 Mg PO DAILY 08/23/16 Reported Flonase Allergy Relief (Fluticasone Propionate (Nasal)) 50 Mcg/Act Spr 2 Sprays WALDEMAR DAILY PRN 08/20/16 Reported Lexapro (Escitalopram Oxalate) 10 Mg Tab 10 Mg PO DAILY 08/20/16 Reported Toprol-Xl (Metoprolol Succinate) 100 Mg Tabcr 150 Mg PO DAILY 08/20/16 Reported Ritalin (Methylphenidate HCl) 20 Mg Tab 20 Mg PO BID 08/20/16 Reported Xanax (Alprazolam) 1 Mg Tab 1 Mg PO TID 08/20/16 Reported Ambien (Zolpidem Tartrate) 10 Mg Tab 10 Mg PO HS 08/20/16 Reported Vital Signs Weight (Kilograms): 132.800 Height (Feet): 6 Height (Inches): 2.00 Date Time Temp Pulse Resp B/P (MAP) Pulse Ox O2 Delivery O2 Flow Rate FiO2 06/13/17 13:47 37.1 78 20 158/81 (106) 94 Room Air 06/13/17 08:45 Room Air 06/13/17 07:20 37.3 95 18 171/107 (128) 92 Room Air 06/13/17 06:20 36.8 104 18 147/87 95 Room Air 06/13/17 05:41 94 16 156/100 94 Room Air 06/13/17 03:51 101 18 159/105 96 Room Air 06/13/17 02:04 86 18 149/90 95 Room Air 06/13/17 00:19 37.2 109 18 151/90 95 Room Air Physical Exam General Appearance: + thin, + obese Respiratory/Chest: Respiratory effort: no dyspnea Cardiovascular: Heart Auscultation: RRR Abdomen: Inspection & Palpation: soft Assessment and Plan Nausea for EGD
[2017-06-13] MEDS ORDERED: FENTANYL CITRATE INJ 50 MCG/1 ML 2 ML VIAL ONE (14:35)
--- NOTE | 2017-06-13 14:51 | Discharge Instructions ---
Endoscopy Patient Instructions Date / Procedure(s) Performed Jun 13, 2017. Push Enteroscopy, EGD Allergy Information Coded Allergies: Iodine (Verified Allergy, Severe, THROAT SWELLING, 06/13/17) 02/18/13: patient denies IV contrast allergy Patient has been pre-treated in the past with methylprednisolone and diphenhydramine without incident following IV dye administration. Shellfish (Verified Allergy, Severe, THROAT SWELLING, 06/13/17) Iodinated Diagnostic Agents (Verified Allergy, Unknown, swelling, 06/13/17) Plasma, Human (Verified Allergy, Unknown, ANAPHYLAXIS, 06/13/17) Acetaminophen (Verified Adverse Reaction, Unknown, GI ISSUES, 06/13/17) Hydrocodone (Verified Adverse Reaction, Unknown, GI ISSUES, 06/13/17) Discharge Date / Findings Jun 13, 2017. Normal EGD Medication Instructions Restart Stopped Medication(s): Current Inpatient Medications Medications (Trade) Dose Ordered Sig/Roxie Route Start Time Stop Time Status Last Admin Dose Admin Alprazolam (Xanax Tab) 1 mg TID PO 06/13/17 09:00 07/13/17 08:59 06/13/17 09:04 1 MG Cyclobenzaprine HCl (Flexeril Tab) 10 mg TID PRN PO 06/13/17 05:30 07/13/17 05:29 Escitalopram Oxalate (Lexapro Tab) 10 mg DAILY PO 06/13/17 09:00 07/13/17 08:59 06/13/17 08:59 10 MG Escitalopram Oxalate (Lexapro Tab) 20 mg DAILY PO 06/13/17 09:00 07/13/17 08:59 06/13/17 08:59 20 MG Metoprolol Succinate (Toprol Xl Tab) 150 mg DAILY PO 06/13/17 09:00 07/13/17 08:59 06/13/17 09:00 150 MG Zolpidem Tartrate (Ambien Tab) 10 mg HS PO 06/13/17 21:00 07/13/17 20:59 Ondansetron HCl (Zofran Inj) 4 mg Q6H PRN IV 06/13/17 05:30 07/13/17 05:29 Morphine Sulfate (MoRPHine SULFATE INJ) 4 mg Q3H PRN IV 06/13/17 06:00 06/27/17 05:59 06/13/17 13:24 4 MG Potassium Chloride/Sodium Chloride 1,000 ml @ 100 mls/hr Q10H IV 06/13/17 06:30 06/13/17 16:29 06/13/17 06:45 100 MLS/HR Insulin Aspart (novoLOG ASPART) SLIDING SCALE G... Q6 SC 06/13/17 06:30 07/13/17 06:29 Pantoprazole Sodium 40 mg/ Dextrose 100 ml @ 20 mls/hr Q5H IV 06/13/17 06:30 07/13/17 06:29 06/13/17 11:56 20 MLS/HR Nitroglycerin (Nitroglycerin 2% Oint) 0.5 inch Q6H EXT 06/13/17 13:00 07/13/17 12:59 Current Inpatient Medications Medications (Trade) Dose Ordered Sig/Roxie Route Start Time Stop Time Status Last Admin Dose Admin Alprazolam (Xanax Tab) 1 mg TID PO 06/13/17 09:00 07/13/17 08:59 06/13/17 09:04 1 MG Cyclobenzaprine HCl (Flexeril Tab) 10 mg TID PRN PO 06/13/17 05:30 07/13/17 05:29 Escitalopram Oxalate (Lexapro Tab) 10 mg DAILY PO 06/13/17 09:00 07/13/17 08:59 06/13/17 08:59 10 MG Escitalopram Oxalate (Lexapro Tab) 20 mg DAILY PO 06/13/17 09:00 07/13/17 08:59 06/13/17 08:59 20 MG Metoprolol Succinate (Toprol Xl Tab) 150 mg DAILY PO 06/13/17 09:00 07/13/17 08:59 06/13/17 09:00 150 MG Zolpidem Tartrate (Ambien Tab) 10 mg HS PO 06/13/17 21:00 07/13/17 20:59 Ondansetron HCl (Zofran Inj) 4 mg Q6H PRN IV 06/13/17 05:30 07/13/17 05:29 Morphine Sulfate (MoRPHine SULFATE INJ) 4 mg Q3H PRN IV 06/13/17 06:00 06/27/17 05:59 06/13/17 13:24 4 MG Potassium Chloride/Sodium Chloride 1,000 ml @ 100 mls/hr Q10H IV 06/13/17 06:30 06/13/17 16:29 06/13/17 06:45 100 MLS/HR Insulin Aspart (novoLOG ASPART) SLIDING SCALE G... Q6 SC 06/13/17 06:30 07/13/17 06:29 Pantoprazole Sodium 40 mg/ Dextrose 100 ml @ 20 mls/hr Q5H IV 06/13/17 06:30 07/13/17 06:29 06/13/17 11:56 20 MLS/HR Nitroglycerin (Nitroglycerin 2% Oint) 0.5 inch Q6H EXT 06/13/17 13:00 07/13/17 12:59 Provider Instructions Activity Restrictions - No exercising or heavy lifting for 24 hours. - Do not drink alcohol the day of the procedure. - Do not drive a car or operate machinery until the day after the procedure. - Do not make any important decisions or sign important papers in 24 hours after the procedure. Following Day: - Return to full activity which may include returning to work/school. Diet Start your diet with liquids and light foods (jello, soup, juice, toast). Then eat your usual diet if not nauseated. Treatment For Common After Affects For mild abdominal pain, bloating, or excessive gas: - Rest - Eat lightly - Lie on right side Follow-Up Information Follow-up with as scheduled Anesthesia Information What You Should Know You have had a procedure that required some medicine to reduce anxiety and discomfort. This treatment is called moderate sedation. After receiving the treatment, you may be sleepy, but you will be able to breathe on your own. The effects of the treatment may last for several hours. Follow these instructions along with Activity/Diet recommendations noted above: * Do NOT do anything where dizziness or clumsiness would be dangerous. * Rest quietly at home today, then you can be up and about tomorrow. * Have a responsible person stay with you the rest of today. * You may have had an I.V. today. If so, you may take the dressing off later today. Recommendations Call your doctor if: * Trouble breathing * Continuous vomiting for more than 24 hours * Temperature above 101 degrees * Severe abdominal pain or bloating * Pain not relieved by pain medicine ordered * There is increased drainage or redness from any incision * A large amount of rectal bleeding greater than 2-3 tablespoons. (If you had a polyp/s removed or have hemorrhoids, a small amount of blood - from the rectum is to be expected.) * You have any unanswered questions or concerns. IN THE EVENT OF A SERIOUS EMERGENCY, GO TO THE NEAREST EMERGENCY ROOM Your discharge instructions were prepared by provider Rashel Rangel. Patient Instructions Signature Page Jordan Delaney Patient (or Guardian) Signature/Date: I have read and understand the instructions given to me by my caregivers. Caregiver/RN/Doctor Signature/Date: The above-named patient and/or guardian has received patient instructions on this date. + Original Patient Signature Page (only) stays with chart. Please make copy for patient.
--- NOTE | 2017-06-13 14:55 | GI REPORT ---
Procedure Date: 06/13/2017 2:36 PM Procedure: Upper GI endoscopy Indications: Hematochezia, Nausea Medicines: Fentanyl 100 micrograms IV, Propofol total dose 100 mg IV, Lidocaine 80 mg IV Complications: No immediate complications. Estimated Blood Loss: Estimated blood loss: none. Procedure: Pre-Anesthesia Assessment: - Prior to the procedure, a History and Physical was performed, and patient medications, allergies and sensitivities were reviewed. The patient's tolerance of previous anesthesia was reviewed. - The risks and benefits of the procedure and the sedation options and risks were discussed with the patient. All questions were answered and informed consent was obtained. After obtaining informed consent, the endoscope was passed under direct vision. Throughout the procedure, the patient's blood pressure, pulse, and oxygen saturations were monitored continuously. The scope was introduced through the mouth, and advanced to the second part of duodenum. The upper GI endoscopy was accomplished without difficulty. The patient tolerated the procedure fairly well. Findings: The esophagus was normal. The stomach was normal. The examined duodenum was normal. Impression: - Normal esophagus. - Normal stomach. - Normal examined duodenum. - No specimens collected. Recommendation: - [facility]. - Continue present medications. Rashel Rangel M.D. Rashel Rangel MD 06/13/2017 2:54:45 PM This report has been signed electronically. Note Initiated On: 06/13/2017 2:36 PM I attest to the content of the Intraoperative Record and orders documented therein, exceptions below
[2017-06-13] MEDS ORDERED: LIDOCAINE HCL 2% 2 ML VIAL (20MG/ML) ONE (14:56)
[2017-06-13] MEDS ORDERED: PROPOFOL IV EMULSION 10 MG/ML 20 ML VIAL IV ONE (14:56)
--- NOTE | 2017-06-13 15:27 | PROGRESS NOTE ---
DATE: 06/13/2017 The patient underwent an EGD today which was carried down to the second portion of the duodenum. The exam was completely normal without any signs of inflammation, ulceration, or other pathology. Inspection of the anal area while the patient was sedated revealed a posterior anal fissure which most likely explains his bright red rectal bleeding and anal pain. IMPRESSION: The patient has normal EGD, has an anal fissure which most likely explains rectal bleeding and anal pain and I suspect he can go back on Xarelto at this point. His abnormal liver tests will be evaluated with further tests. His ultrasound showed some hepatic steatosis, which is not unusual given his body habitus, but I think given his elevated CPK over 1500 that a lot of his ALT and AST elevations may be coming from muscle rather than liver. Dr. Hallman will be covering over the weekend.
--- NOTE | 2017-06-13 15:41 | Anesthesiology Progress Note ---
Anesthesia Post Op Note Date & Time Jun 13, 2017 at 15:40 Vital Signs Pain Intensity: 0 Vital Signs Past 12 Hours Date Time Temp Pulse Resp B/P (MAP) Pulse Ox O2 Delivery O2 Flow Rate FiO2 06/13/17 15:20 76 20 126/83 (97) 94 Room Air 06/13/17 15:10 77 20 140/81 (100) 96 Room Air 06/13/17 15:06 79 20 130/83 (99) 97 Room Air 06/13/17 15:00 82 20 134/82 (99) 92 Room Air 06/13/17 13:47 37.1 78 20 158/81 (106) 94 Room Air 06/13/17 08:45 Room Air 06/13/17 07:20 37.3 95 18 171/107 (128) 92 Room Air 06/13/17 06:20 36.8 104 18 147/87 95 Room Air 06/13/17 05:41 94 16 156/100 94 Room Air 06/13/17 03:51 101 18 159/105 96 Room Air Notes Mental Status: alert / awake / arousable, participated in evaluation Pt Amnestic to Procedure: Yes Nausea / Vomiting: adequately controlled Pain: adequately controlled Airway Patency, RR, SpO2: stable & adequate BP & HR: stable & adequate Hydration State: stable & adequate Anesthetic Complications: no major complications apparent
[2017-06-13 15:45] VITALS: BP 143/93; PULSE 85; TEMP 37; O2SAT 92
[2017-06-13] MEDS: NITROGLYCERIN OINT 2% 1GM PACKET EXT SCH ×2 (16:19→19:00)
[2017-06-13] MEDS ORDERED: NURSING VERBAL MED ORDER ONE ×3 (16:30→20:45)
--- NOTE | 2017-06-13 17:25 | Progress Note ---
Subjective Date of Service: Jun 13, 2017. Subjective Pt evaluation today including: conversation w/ patient, physical exam, chart review, lab review, review of inpatient medication list Problem List Medical Problems: (1) Acute renal failure (ARF) Status: Acute (2) Anticoagulated by anticoagulation treatment Status: Acute (3) Anxiety Status: Chronic (4) Atypical chest pain Status: Acute (5) CKD (chronic kidney disease), stage III Status: Chronic (6) Contusion of left chest wall Status: Acute (7) Costochondritis Status: Chronic (8) Depression Status: Chronic (9) DKA (diabetic ketoacidoses) Status: Acute (10) Dyspnea Status: Acute (11) Elevated CK Status: Chronic (12) Epigastric abdominal pain Status: Acute (13) Essential hypertension Status: Chronic (14) GERD (gastroesophageal reflux disease) Status: Chronic (15) GI bleeding Status: Acute (16) Headache Status: Acute (17) Hematemesis Status: Acute (18) History of esophageal ulcer Permanent Comment: on EGD 06/23/2014 Status: Chronic (19) History of pulmonary embolus (PE) Status: Acute (20) Hx of pulmonary embolus Status: Chronic (21) Hyperlipidemia Status: Chronic (22) Hypertension Status: Chronic (23) Hypoglycemia Status: Acute (24) Hypoglycemia Status: Acute (25) Intractable vomiting Status: Acute (26) Lactic acidosis Status: Acute (27) Leg pain, left Status: Acute (28) Leg pain, right Status: Acute (29) Myositis Status: Acute (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 (31) Precordial chest pain Status: Acute (32) Prediabetes Status: Chronic (33) Rectal bleeding Status: Acute (34) Rhabdomyolysis Status: Acute (35) Right leg swelling Status: Acute Surgical Problems: (1) H/O colonoscopy Status: Chronic (2) H/O esophagogastroduodenoscopy Permanent Comment: [id number]- esophageal ulcer 06/24/2014- bleeding esophageal ulcer 08/29/2014- Grade B reflux esophagitis 11/21/2014- mild-moderate inflammation Status: Chronic (3) History of muscle biopsy Status: Chronic (4) History of rectal surgery Status: Chronic (5) S/P cardiac catheterization Permanent Comment: 2012- normal coronary arteries Status: Chronic Review of Systems Constitutional: + weakness, + fatigue, No see HPI, No fever, No chills, No sweats, No weight loss, No problem reported Eyes: No see HPI, No worsening of vision, No eye pain, No redness, No discharge , No diplopia, No problem reported ENT: No see HPI, No hearing loss, No unusual epistaxis, No nasal symptoms, No sore throat, No tinnitus, No dental problems, No trouble swallowing, No problem reported Respiratory: No see HPI, No cough, No sputum, No wheezing, No shortness of breath, No dyspnea on exertion, No dyspnea at rest, No hemoptysis, No problem reported Cardiac: No see HPI, No chest pain, No orthopnea, No PND, No edema, No claudication, No palpitations, No problem reported Abdomen: + GI bleeding, No see HPI, No pain, No nausea, No vomiting, No diarrhea, No constipation, No problem reported Musculoskeletal: + joint pain, + muscle pain, No see HPI, No swelling, No calf pain, No problem reported Neurologic: No see HPI, No memory loss, No paralysis, No weakness, No numbness/ tingling, No vertigo, No balance problems, No problem reported Psychiatric: No see HPI, No depression symptoms, No anhedonism, No anxiety, No insomnia, No substance abuse, No problem reported Heme: No see HPI, No abnormal bleeding/bruising, No clotting problems, No swollen lymph nodes, No night sweats, No problem reported Endo: No see HPI, No fatigue, No excessive thirst, No excessive urination, No problem reported Skin: No see HPI, No rash, No itch, No new/changing skin lesions, No color change, No bleeding, No problem reported Objective Vital Signs Date Time Temp Pulse Resp B/P (MAP) Pulse Ox O2 Delivery O2 Flow Rate FiO2 06/13/17 15:45 37.0 85 18 143/93 (110) 92 Room Air 06/13/17 15:20 76 20 126/83 (97) 94 Room Air 06/13/17 15:10 77 20 140/81 (100) 96 Room Air 06/13/17 15:06 79 20 130/83 (99) 97 Room Air 06/13/17 15:00 82 20 134/82 (99) 92 Room Air 06/13/17 13:47 37.1 78 20 158/81 (106) 94 Room Air 06/13/17 08:45 Room Air 06/13/17 07:20 37.3 95 18 171/107 (128) 92 Room Air 06/13/17 06:20 36.8 104 18 147/87 95 Room Air 06/13/17 05:41 94 16 156/100 94 Room Air 06/13/17 03:51 101 18 159/105 96 Room Air 06/13/17 02:04 86 18 149/90 95 Room Air 06/13/17 00:19 37.2 109 18 151/90 95 Room Air Physical Exam General Appearance: WD/WN, no apparent distress Eyes: normal inspection, EOMI ENT: normal ENT inspection, hearing grossly normal Neck: supple Respiratory/Chest: chest non-tender, lungs clear, normal breath sounds, no respiratory distress, no accessory muscle use Cardiovascular: regular rate, rhythm, no edema, no gallop, no JVD, no murmur, + JVD Abdomen: normal bowel sounds, soft, no pulsatile mass, + tenderness Extremities: normal range of motion, non-tender, normal inspection, no pedal edema Neurologic/Psychiatric: 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 tested, no motor/sensory deficits, alert, normal mood/affect, oriented x 3 Skin: normal color, warm/dry, no rash Laboratory Results Last 24 Hours Test 06/13/17 00:35 06/13/17 01:03 06/13/17 07:56 06/13/17 10:01 White Blood Count 7.53 K/uL Red Blood Count 4.77 M/uL Hemoglobin 14.9 g/dL 13.4 g/dL Hematocrit 42.0 % Mean Corpuscular Volume 88.1 fL Mean Corpuscular Hemoglobin 31.2 pg Mean Corpuscular Hemoglobin Concent 35.5 g/dl Platelet Count 184 K/uL Mean Platelet Volume 13.0 fL Neutrophils (%) (Auto) 50.2 % Lymphocytes (%) (Auto) 40.6 % Monocytes (%) (Auto) 5.7 % Eosinophils (%) (Auto) 2.7 % Basophils (%) (Auto) 0.7 % Neutrophils # (Auto) 3.78 K/uL Lymphocytes # (Auto) 3.06 K/uL Monocytes # (Auto) 0.43 K/uL Eosinophils # (Auto) 0.20 K/uL Basophils # (Auto) 0.05 K/uL RDW Standard Deviation 43.0 fL RDW Coefficient of Variation 13.3 % Immature Granulocyte % (Auto) 0.1 % Immature Granulocyte # (Auto) 0.01 K/uL Prothrombin Time 13.4 SECONDS Prothromb Time International Ratio 1.2 Activated Partial Thromboplast Time 33.9 SECONDS Partial Thromboplastin Ratio 1.3 Sodium Level 138 mmol/L Potassium Level 3.6 mmol/L Chloride Level 105 mmol/L Carbon Dioxide Level 23 mmol/L Anion Gap 10.0 mmol/L Blood Urea Nitrogen 11 mg/dl Creatinine 1.50 mg/dl Est Creatinine Clear Calc Drug Dose 90.1 ml/min Estimated GFR () 64.2 Estimated GFR (Non- 55.4 BUN/Creatinine Ratio 7.4 Random Glucose 211 mg/dl Calcium Level 9.0 mg/dl Total Bilirubin 0.3 mg/dl Direct Bilirubin < 0.1 mg/dl Aspartate Amino Transf (AST/SGOT) 243 U/L Alanine Aminotransferase (ALT/SGPT) 244 U/L Alkaline Phosphatase 137 U/L Total Creatine Kinase 1509 U/L Creatine Kinase MB 9.2 ng/ml Creatine Kinase MB Ratio 0.6 Troponin I 0.021 ng/ml Total Protein 8.3 gm/dl Albumin 3.7 gm/dl Lipase 211 U/L Chemistry Specimen Hemolysis Bedside Troponin I < 0.030 ng/ml Bedside Glucose 108 mg/dl Test 06/13/17 11:53 06/13/17 12:53 Hemoglobin 13.0 g/dL Bedside Glucose 102 mg/dl Assessment and Plan 47 years old man with persistently elevated LFT , uncontrolled diabetes mellitus , chronic myositis, hypercoagulable state with multiple PEs currently on Xarelto and hypertension Presented to the ED with black tarry stool. GI bleed/melena EGD was done today and was negative for any acute ulcer Colonoscopy will be done over the weekend persistently elevated LFT , differential diagnoses includes chronic viral hepatitis, steatohepatitis or autoimmune hepatitis. previous alpha-1- antitrypsin and ceruloplasmin both were checked 03/2017 and were negative. may need liver biopsy at some point Multiple PEs Xarelto is on hold Need clearance from GI prior to starting Xarelto Keep on SCD boot for now Chronic myositis and CK, We'll inquire about marijuana use from him DM - last hemoglobin A1c is 10.6 in April 2017 , placed on SS HTN - Cont B tristan - and continue holding Lisinopril
[2017-06-13] MEDS: OXYCODONE/ACETAMINOPHEN 5-325 TAB PO PRN (19:15)
--- NOTE | 2017-06-13 20:37 | CARDIOLOGY CONSULTATION ---
DATE OF CONSULTATION: 06/13/2017 REFERRING PHYSICIANS: Dr. Esteves, Dr. Sharpe. INDICATIONS: Preoperative evaluation planned and upper endoscopy. HISTORY OF PRESENT ILLNESS: The patient is a 47-year-old male with complex history. PAST MEDICAL HISTORY: Notable for: 1. Chronic chest pain and chronic myositis. 2. Past cardiac catheterization in 2012 without coronary disease. 3. Hypercoagulable state, ill-defined with history of past multiple pulmonary emboli, on chronic anticoagulation with Xarelto. 4. Hypertension. 5. Chronic gastroesophageal reflux. 6. Recent diagnosis of diabetes mellitus. The patient presents today, noting having developed abdominal pain and discomfort approximately 4 days prior to admission. Symptoms progressed and then were notable for episodes of melena and hematochezia with resultant ER presentation. He continues to complain of abdominal bloating, fullness and mild tenderness. Notes no fevers, chills or productive cough. Notes no recent use of nonsteroidals. Notes no recent injury. He has been taking medications as previously prescribed. Has had multiple episodes of bloody stools, now less since last night on admission. He anticipates upper endoscopy later today. His past medical history is notable for esophageal ulcer and recurrent esophageal irritation and esophagitis. Last ulcer documented in 2013. He is generally active about his home, notes no limitations. Notes no change in exercise capacity. Does note myositis can be inflamed by exercise, though he does work out at the gym, walks his dog, etc. in tolerance. Findings generally well. Notes no acute decline in functional capacity. Notes no tachypalpitations, syncope or near syncope. Notes no prior history of congestive heart failure, rheumatic fever, scarlet fever, renal or hepatic disease. REVIEW OF SYSTEMS: As per HPI and otherwise negative. ALLERGIES: IODINE, SHELLFISH, IODINATED CONTRAST, HYDROCODONE. MEDICATIONS: Prior to admission were alprazolam 1 mg t.i.d., Lexapro 10 mg p.o. q. day and 20 mg p.o. q. day for a total of 30. Per list, Novolin and Lantus insulin, lisinopril 5 mg p.o. q. day, metformin 500 mg p.o. q. day, Ritalin 20 mg b.i.d., Toprol-XL 150 mg p.o. q. day, Protonix 40 mg p.o. q. day, rivaroxaban 20 mg p.o. q. day, Ambien p.r.n. PAST SURGICAL HISTORY: Notable for repair of rectal fissure, prior muscle biopsy. FAMILY HISTORY: Not specifically notable for coronary disease. There is a history of brain aneurysm and clotting disorders. SOCIAL HISTORY: The patient is a resident of [place]. He is currently on disability. He is a nonsmoker and very, very rare alcohol user. He is physically active without change in exercise capacity, uses no significant [id number] medications other than as described. PHYSICAL EXAMINATION: GENERAL: The patient is an male. Currently, denying any acute distress other than mild abdominal tenderness and bloating. VITAL SIGNS: Heart rate is 95, blood pressure is 110/107. HEENT: Normocephalic and atraumatic. Nares without discharge. Throat was clear. NECK: Supple without thyromegaly, lymphadenopathy, JVD. There are no carotid bruits. LUNGS: Clear to auscultation. CARDIOVASCULAR: Regular with normal S1, S2. There is no murmur, gallop or rub. ABDOMEN: Soft with mild distention. There is tenderness in the left upper quadrant. There is no rebound. EXTREMITIES: Without cyanosis or clubbing. Femoral and distal pulses are 2+/4. There are no femoral bruits. NEUROLOGIC: The patient is answering questions, moving extremities with strength. LABORATORY DATA: Initial hemoglobin was 14.9. Hemoglobin this morning was 13.0. EKG reveals sinus rhythm with nonspecific ST segment changes, lateral T-wave abnormalities consistent with left ventricular hypertrophy, rate is 101 on EKG tracing. In comparison to prior studies, there is no significant change. Sodium is 138, potassium is 3.6, chloride is 105, bicarb is 23, BUN is 11, creatinine is 1.5. AST and ALT are elevated at 243, 244. Troponin on 2 testings are negative. Albumin is 3.7. CK is 1509. IMPRESSION: A 47-year-old male with history of chronic myositis, past history of hypercoagulable state and multiple pulmonary emboli, on chronic anticoagulation with Xarelto who presents now with presumed upper gastrointestinal bleeding with anticipated upper endoscopy, carries a history of past esophageal ulcer and gastrointestinal bleeds. Xarelto has been held now for 24 hours. He currently denies any chest pain or discomfort. There are no cardiac contraindications to patient proceeding with procedure and activities as planned. Blood pressures are trending higher. Would resume lisinopril as soon as possible post-procedure. Re-initiation of anticoagulation will be dependent on results of studies. With noted effect of Xarelto, patient will be immediately anticoagulated within 1-1/2 hours after initiating drug. The patient's prior cardiac history is notable for noncardiac chest pains with evaluations on multiple occasions including left heart catheterization without coronary artery disease. We will follow patient as clinical course proceeds. In the interim, we will add low dose topical nitrates 1/2 inch q. 6 hours for blood pressure control only. This may be removed if blood pressures diminish and when lisinopril is restarted.
[2017-06-13] MEDS: ZOLPIDEM TARTRATE 10 MG TAB PO SCH (21:31)
[2017-06-13] MEDS: RIVAROXABAN 20 MG TAB PO SCH (21:33)
[2017-06-13 23:18] VITALS: BP 130/82; PULSE 76; TEMP 36.2; O2SAT 94
[2017-06-14] MEDS: OXYCODONE/ACETAMINOPHEN 5-325 TAB PO PRN ×4 (00:38→20:34)
[2017-06-14] MEDS: NITROGLYCERIN OINT 2% 1GM PACKET EXT SCH ×4 (01:00→18:28)
--- NOTE | 2017-06-14 01:58 | GASTROINTESTINAL CONSULTATION ---
DATE OF CONSULTATION: 06/13/2017 CHIEF COMPLAINT: Acute gastrointestinal bleeding, abdominal pain, nausea. HISTORY OF PRESENT ILLNESS: Mr. Delaney is a 47-year-old male who reports an approximate 4-day history of abdominal distress with nausea. The patient did not experience any vomiting or initially any changes in his stool patterns. However, over the last several hours prior to admission, the patient experienced maroon colored stools and upon arrival at [facility], bright red blood per rectum. The patient takes Xarelto chronically for recurrent pulmonary emboli of unclear origin. The patient denied any hematemesis, coffee-ground emesis. PAST MEDICAL HISTORY: Extensive and includes pulmonary emboli, chronic kidney disease, hypertension, and diabetes requiring insulin, which is a relatively new diagnosis. Chronic myositis, chronically elevated CPKs with MB fraction. SOCIAL HISTORY: The patient denies tobacco and drinks alcoholic beverages perhaps 1 or 2 beers a month. ALLERGIES: HE HAS ALLERGIES TO IODINE, SHELLFISH, ACETAMINOPHEN, HYDROCODONE. CURRENT MEDICATIONS AT HOME: Include lisinopril, Protonix, Xarelto, Roxicodone, Glucophage, Flexeril, Lantus, NovoLog, Lexapro, Flonase, Toprol, Ritalin, Xanax and Ambien. FAMILY HISTORY: Noncontributory. REVIEW OF SYSTEMS: Otherwise noncontributory based on 13-point exam. PHYSICAL EXAMINATION: VITAL SIGNS: On admission, the patient was hypertensive, blood pressure 151/90, pulse ox 95% on room air, heart rate 109, afebrile at 37.2, respirations 18. This morning, patient remains hypertensive at 171/107, heart rate 95, afebrile, 92% on room air, 18 respirations. HEENT: The patient's sclerae are anicteric. Oral mucosa moist, conjunctiva moist. GENERAL: The patient is awake, alert and oriented x3. HEART: Normal S1, S2. LUNGS: Clear to auscultation without rales, rhonchi or wheezes. ABDOMEN: Soft, minimally tender in the epigastrium without rebound or guarding. The abdomen is obese. I do not appreciate hepatosplenomegaly. EXTREMITIES: Without clubbing, cyanosis. There is minimal pretibial edema bilaterally. RECTAL: Deferred at this time. LABORATORY STUDIES: On admission reveal a white count of 7.5, hemoglobin 14.9 and platelets 184,000. MCV is 88.1. Serum chemistry shows a BUN and creatinine of 11 and 1.5, potassium 3.6. LFTs are chronically elevated with a total bilirubin of 0.3; however, transaminases are AST 243, ALT 244, alkaline phosphatase 137. In addition, CPK is 1509 with an MB fraction of 9.2, total protein is 8.3 with albumin of 3.1, lipase is normal at 211. EKG changes showed perhaps nonspecific ST-T wave changes in the lateral leads. The patient underwent an ultrasound which revealed a gallbladder that was normal without stones, ductal dilation although did show a moderately hyperechoic parenchyma to the liver. This suggests steatosis and liver size is enlarged at 20 cm. Portal vein is patent. The gallbladder is normal. Chest x-ray showed no acute distress. IMPRESSION AND PLAN: I spoke with Dr. Sharpe regarding this patient's presentation. From a gastrointestinal standpoint, although there was a change in the color of the patient's stools, BUN is low. The hemoglobin is stable and I do not suspect a brisk upper gastrointestinal bleed; however, with his Xarelto requirements for recurrent PEs, upper endoscopy today is reasonable, particularly with his symptoms of nausea and epigastric abdominal discomfort which he has been recently experiencing although also has chronic symptoms. If this is unrevealing, then ultimately a colonoscopy may be needed. The patient did report having had a colonoscopy in 2012 where a fissure was identified, which historically had bled and caused discomfort. Today's episodes were a nonpainful bleeding. The patient will require eventual resumption of the Xarelto. The patient did report a pattern of dyspnea on exertion and with his chronically elevated CPKs, which do have an MB fraction, perhaps cardiac workup may be necessary to exclude occult coronary artery disease. I did ask Dr. Sharpe if it was acceptable to proceed with EGD and he plans to reevaluate the patient this morning prior to the study. One other note is a persistently elevated transaminase pattern with mild alkaline phosphatase elevation in the setting of a normal bilirubin. The etiology of this is unclear, but these have been chronic elevations that are for the most part, stable in pattern. This would suggest either a cholestatic or hepatocellular origin to this and does not necessarily suggest biliary obstruction. This may be multifactorial including medications, possibly fatty liver, although these transaminase levels seem to be higher than one would expect for nonalcoholic steatohepatitis. Regarding prior workup, the patient did have a normal alpha-1 antitrypsin and ceruloplasmin earlier this year and I would recommend a serum protein electrophoresis, viral markers to exclude hepatitis B and C along with A to ensure that vaccination is not needed. Ultimately a liver biopsy may be necessary either by percutaneous or a transjugular approach in order to better identify the nature of this abnormal liver tests and hepatomegaly. Dr. Rangel will be performing upperendoscopy today. All questions answered. Further recommendations once the upper endoscopy is completed. Historically, in March 2017, there is no description of portal hypertension by way of varices and prior endoscopy did show esophagitis and inflammation, but did not suggest evidence of portal gastropathy. All questions answered. Thank you for allowing me to participate in this patient's care. DONELL
[2017-06-14] MEDS: PANTOprazole INJ 40 MG in DEXTROSE 5% 100ML IV SCH ×3 (03:08→12:27)
[2017-06-14 06:34] LABS: BASO % 0.6 %; BASO ABS # 0.03 K/uL (0-0.2); COMPLETE YES; EOS % 4.2 %; HEMATOCRIT 38.4 % (42-52); LYMPH ABS # 2.36 K/uL (1.2-3.4); MEAN CELL VOLUME 90.6 fL (80-100); MEAN CORPUSCULAR HGB CONC 33.1 g/dl (32-36); MEAN PLATELET VOLUME 12.8 fL (7.4-10.4); MONO % 6.2 %; PLATELET COUNT 131 K/uL (130-400); RED BLOOD COUNT 4.24 M/uL (4.7-6.1); WHITE BLOOD COUNT 5.02 K/uL (4.8-10.8)
[2017-06-14 06:58] LABS: BUN/CREATININE RATIO 10.1 (10-20); CALCIUM 8.4 mg/dl (8.5-10.1); CREATININE 1.5 mg/dl (0.60-1.40); MAGNESIUM 2.1 mg/dl (1.8-2.4)
[2017-06-14 07:01] LABS: ALB/GLOB RATIO 0.7 (0.9-2); PHOSPHORUS 3.6 mg/dl (2.5-4.9)
[2017-06-14 07:36] VITALS: BP 138/77; PULSE 72; TEMP 36.2; O2SAT 92
[2017-06-14] MEDS: INSULIN ASPART 100 UNITS/ML 3 ML PEN SC SCH ×4 (08:00→20:30)
[2017-06-14] MEDS: CYCLOBENZAPRINE HCL 10 MG TAB PO PRN ×2 (08:41→10:54)
[2017-06-14] MEDS: ESCITALOPRAM OXALATE 10 MG TAB PO SCH (08:41)
[2017-06-14] MEDS: ESCITALOPRAM OXALATE 20 MG TAB PO SCH (08:42)
[2017-06-14] MEDS: METOPROLOL SUCC 50MG EXT REL TAB PO SCH (08:43)
[2017-06-14] MEDS: ALPRAZOLAM 0.5 MG TAB PO SCH ×3 (08:47→21:52)
--- NOTE | 2017-06-14 14:20 | Gastroenterology Progress Note ---
Progress Note Date of Service: Jun 14, 2017 Subjective Pt evaluation today including: conversation w/ patient, physical exam, chart review, lab review, review of studies, review of inpatient medication list CC F/U rectal bleeding, LUQ pain HPI Pt states has ongoing LUQ pain needing meds for that. Some nausea and anorexia but is eating solid food. NO stools or rectal bleeding overnight or today. Pt was having red bleeding per rectum at home. EGD yesterday negative and RUQ u/s hepatomegaly and fatty liver but no explanation for abd pain. Review of Systems Respiratory: No shortness of breath Cardiac: No chest pain Medications Current Inpatient Medications Medications (Trade) Dose Ordered Sig/Roxie Route Start Time Stop Time Status Last Admin Dose Admin Alprazolam (Xanax Tab) 1 mg TID PO 06/13/17 09:00 07/13/17 08:59 06/14/17 13:40 1 MG Cyclobenzaprine HCl (Flexeril Tab) 10 mg TID PRN PO 06/13/17 05:30 07/13/17 05:29 06/14/17 10:54 10 MG Escitalopram Oxalate (Lexapro Tab) 10 mg DAILY PO 06/13/17 09:00 07/13/17 08:59 06/14/17 08:41 10 MG Escitalopram Oxalate (Lexapro Tab) 20 mg DAILY PO 06/13/17 09:00 07/13/17 08:59 06/14/17 08:42 20 MG Metoprolol Succinate (Toprol Xl Tab) 150 mg DAILY PO 06/13/17 09:00 07/13/17 08:59 06/14/17 08:43 150 MG Zolpidem Tartrate (Ambien Tab) 10 mg HS PO 06/13/17 21:00 07/13/17 20:59 06/13/17 21:31 10 MG Ondansetron HCl (Zofran Inj) 4 mg Q6H PRN IV 06/13/17 05:30 07/13/17 05:29 Morphine Sulfate (MoRPHine SULFATE INJ) 4 mg Q3H PRN IV 06/13/17 06:00 06/27/17 05:59 06/13/17 21:32 4 MG Pantoprazole Sodium 40 mg/ Dextrose 100 ml @ 20 mls/hr Q5H IV 06/13/17 06:30 07/13/17 06:29 06/14/17 12:27 20 MLS/HR Nitroglycerin (Nitroglycerin 2% Oint) 0.5 inch Q6H EXT 06/13/17 13:00 07/13/17 12:59 Oxycodone/ Acetaminophen (Percocet 5-325mg Tab) Percocet 1-2 tab PO q4h ... Q4H PRN PO 06/13/17 16:45 06/27/17 16:44 06/14/17 07:52 2 TAB Rivaroxaban (Xarelto Tab) 20 mg QDD PO 06/14/17 17:45 07/14/17 17:44 06/13/17 21:33 20 MG Insulin Aspart (novoLOG ASPART) SLIDING SCALE G... ACHS SC 06/13/17 21:00 07/13/17 20:59 06/13/17 21:38 1 UNITS Objective Vital Signs Date Time Temp Pulse Resp B/P (MAP) Pulse Ox O2 Delivery O2 Flow Rate FiO2 06/14/17 11:31 Room Air 06/14/17 07:36 36.2 72 18 138/77 (97) 92 Room Air 06/14/17 00:30 Room Air 06/13/17 23:18 36.2 76 17 130/82 (98) 94 Room Air 06/13/17 16:00 Room Air 06/13/17 15:45 37.0 85 18 143/93 (110) 92 Room Air 06/13/17 15:20 76 20 126/83 (97) 94 Room Air 06/13/17 15:10 77 20 140/81 (100) 96 Room Air 06/13/17 15:06 79 20 130/83 (99) 97 Room Air 06/13/17 15:00 82 20 134/82 (99) 92 Room Air Physical Exam General Appearance: WD/WN, no apparent distress ENT: hearing grossly normal, pharynx normal Respiratory/Chest: lungs clear, no respiratory distress Cardiovascular: regular rate, rhythm, no edema Abdomen: normal bowel sounds, soft, + pertinent finding (no guarding nor rebound, ) Skin: normal color, no jaundice Laboratory Results Last 24 Hours Test 06/13/17 17:40 06/13/17 18:04 06/13/17 20:39 06/14/17 05:54 Erythrocyte Sedimentation Rate 17 mm/hr C-Reactive Protein 2.07 mg/dl Bedside Glucose 72 mg/dl 162 mg/dl White Blood Count 5.02 K/uL Red Blood Count 4.24 M/uL Hemoglobin 12.7 g/dL Hematocrit 38.4 % Mean Corpuscular Volume 90.6 fL Mean Corpuscular Hemoglobin 30.0 pg Mean Corpuscular Hemoglobin Concent 33.1 g/dl Platelet Count 131 K/uL Mean Platelet Volume 12.8 fL Neutrophils (%) (Auto) 42.0 % Lymphocytes (%) (Auto) 47.0 % Monocytes (%) (Auto) 6.2 % Eosinophils (%) (Auto) 4.2 % Basophils (%) (Auto) 0.6 % Neutrophils # (Auto) 2.11 K/uL Lymphocytes # (Auto) 2.36 K/uL Monocytes # (Auto) 0.31 K/uL Eosinophils # (Auto) 0.21 K/uL Basophils # (Auto) 0.03 K/uL RDW Standard Deviation 44.9 fL RDW Coefficient of Variation 13.6 % Immature Granulocyte % (Auto) 0.0 % Immature Granulocyte # (Auto) 0.00 K/uL Sodium Level 139 mmol/L Potassium Level 4.0 mmol/L Chloride Level 106 mmol/L Carbon Dioxide Level 27 mmol/L Anion Gap 6.0 mmol/L Blood Urea Nitrogen 15 mg/dl Creatinine 1.50 mg/dl Est Creatinine Clear Calc Drug Dose 90.1 ml/min Estimated GFR () 64.2 Estimated GFR (Non- 55.4 BUN/Creatinine Ratio 10.1 Random Glucose 151 mg/dl Calcium Level 8.4 mg/dl Phosphorus Level 3.6 mg/dl Magnesium Level 2.1 mg/dl Total Bilirubin 0.4 mg/dl Aspartate Amino Transf (AST/SGOT) 281 U/L Alanine Aminotransferase (ALT/SGPT) 222 U/L Alkaline Phosphatase 111 U/L Total Protein 7.1 gm/dl Albumin 3.0 gm/dl Globulin 4.1 gm/dl Albumin/Globulin Ratio 0.7 Test 06/14/17 08:27 06/14/17 12:21 Bedside Glucose 127 mg/dl 105 mg/dl Assessment and Plan LUQ pain--no etiology on EGD or u/s. Check A/P CT. Oral contrast only since elevated CK hard on kidneys. abdominal distension by history--A/P CT rectal bleeding--mostly likely lower from anal fissure--xarelto has been restarted. No need for IV protonix so switch to po.
[2017-06-14 15:01] VITALS: BP 132/93; PULSE 77; TEMP 36.5; O2SAT 94
--- NOTE | 2017-06-14 16:26 | DIAGNOSTIC IMAGING REPORT ---
ABD/PELVIS NO IV OR ORAL CONT HISTORY: 47 years-old Male ABD PAIN acute generalized abdominal pain with possible GI bleed. COMPARISON: Right upper quadrant ultrasound 06/13/2017, MRCP 04/10/2017, CT abdomen and pelvis 03/24/2016 TECHNIQUE: Multiple axial CT images of the abdomen and pelvis were obtained without IV contrast. A dose lowering technique was used consistent with the principals of DYLON. FINDINGS: Linear subsegmental bibasilar opacities suggest atelectasis. There is no pneumoperitoneum. The imaged inferior cardiac chambers are unremarkable with trace pericardial effusion. There is enlargement of the liver with marked fatty infiltration. Minimal fatty infiltration is seen adjacent to the paul hepatis. The spleen, pancreas and adrenal glands are within normal limits. There is a nonspecific 10 x 6 mm nodular density adjacent to the posterior right hepatic lobe in the region of the right posterior perirenal space as seen on image 147 which appears new from prior study. Kidneys, ureters, urinary bladder and prostate are unremarkable. Abdominal aorta is normal in course and caliber. No bulky adenopathy identified. Mild wall thickening of the distal esophagus is seen, improved from prior. There is no bowel obstruction. No focal bowel wall thickening identified. Scattered noninflamed colonic diverticula are noted. Moderate stool burden. The appendix appears normal. Soft tissues are unremarkable. Bones are intact. IMPRESSION: 1. No acute intra-abdominal or intrapelvic abnormality identified. Normal appendix. 2. Mild circumferential wall thickening of the distal esophagus, improved from prior study. 3. Hepatomegaly with marked hepatic steatosis. 4. 10 x 6 mm nodular density adjacent to the posterior right hepatic lobe within the region of the right posterior pararenal space is new from prior study dated 03/24/2016 and is nonspecific. Attention at follow-up recommended. The above report was generated using voice recognition software. It may contain grammatical, syntax or spelling errors. Electronically signed by: Romulo Madden M.D. 06/14/2017 4:24 PM Dictated Date/Time: 06/14/2017 3:21 PM
--- NOTE | 2017-06-14 17:26 | Progress Note ---
Subjective Date of Service: Jun 14, 2017. Subjective Pt evaluation today including: conversation w/ patient, physical exam, chart review, lab review, review of studies, review of inpatient medication list Problem List Medical Problems: (1) Acute renal failure (ARF) Status: Acute (2) Anticoagulated by anticoagulation treatment Status: Acute (3) Anxiety Status: Chronic (4) Atypical chest pain Status: Acute (5) CKD (chronic kidney disease), stage III Status: Chronic (6) Contusion of left chest wall Status: Acute (7) Costochondritis Status: Chronic (8) Depression Status: Chronic (9) DKA (diabetic ketoacidoses) Status: Acute (10) Dyspnea Status: Acute (11) Elevated CK Status: Chronic (12) Epigastric abdominal pain Status: Acute (13) Essential hypertension Status: Chronic (14) GERD (gastroesophageal reflux disease) Status: Chronic (15) GI bleeding Status: Acute (16) Headache Status: Acute (17) Hematemesis Status: Acute (18) History of esophageal ulcer Permanent Comment: on EGD 06/23/2014 Status: Chronic (19) History of pulmonary embolus (PE) Status: Acute (20) Hx of pulmonary embolus Status: Chronic (21) Hyperlipidemia Status: Chronic (22) Hypertension Status: Chronic (23) Hypoglycemia Status: Acute (24) Hypoglycemia Status: Acute (25) Intractable vomiting Status: Acute (26) Lactic acidosis Status: Acute (27) Leg pain, left Status: Acute (28) Leg pain, right Status: Acute (29) Myositis Status: Acute (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 (31) Precordial chest pain Status: Acute (32) Prediabetes Status: Chronic (33) Rectal bleeding Status: Acute (34) Rhabdomyolysis Status: Acute (35) Right leg swelling Status: Acute Surgical Problems: (1) H/O colonoscopy Status: Chronic (2) H/O esophagogastroduodenoscopy Permanent Comment: [id number]- esophageal ulcer 06/24/2014- bleeding esophageal ulcer 08/29/2014- Grade B reflux esophagitis 11/21/2014- mild-moderate inflammation Status: Chronic (3) History of muscle biopsy Status: Chronic (4) History of rectal surgery Status: Chronic (5) S/P cardiac catheterization Permanent Comment: 2012- normal coronary arteries Status: Chronic Review of Systems Constitutional: No see HPI, No fever, No chills, No sweats, No weight loss, No weakness, No fatigue, No problem reported Eyes: No see HPI, No worsening of vision, No eye pain, No redness, No discharge , No diplopia, No problem reported ENT: No see HPI, No hearing loss, No unusual epistaxis, No nasal symptoms, No sore throat, No tinnitus, No dental problems, No trouble swallowing, No problem reported Respiratory: No see HPI, No cough, No sputum, No wheezing, No shortness of breath, No dyspnea on exertion, No dyspnea at rest, No hemoptysis, No problem reported Cardiac: No see HPI, No chest pain, No orthopnea, No PND, No edema, No claudication, No palpitations, No problem reported Abdomen: + pain, + GI bleeding, No see HPI, No nausea, No vomiting, No diarrhea , No constipation, No problem reported Musculoskeletal: + joint pain, + muscle pain, No see HPI, No swelling, No calf pain, No problem reported Male : No see HPI, No dysuria, No urinary frequency, No incontinence, No nocturia more than once/night, No slowing stream, No hematuria, No sexual dysfunction, No problem reported Neurologic: No see HPI, No memory loss, No paralysis, No weakness, No numbness/ tingling, No vertigo, No balance problems, No problem reported Heme: No see HPI, No abnormal bleeding/bruising, No clotting problems, No swollen lymph nodes, No night sweats, No problem reported Endo: No see HPI, No fatigue, No excessive thirst, No excessive urination, No problem reported Skin: No see HPI, No rash, No itch, No new/changing skin lesions, No color change, No bleeding, No problem reported Objective Vital Signs Date Time Temp Pulse Resp B/P (MAP) Pulse Ox O2 Delivery O2 Flow Rate FiO2 06/14/17 15:01 36.5 77 18 132/93 (106) 94 Room Air 06/14/17 11:31 Room Air 06/14/17 07:36 36.2 72 18 138/77 (97) 92 Room Air 06/14/17 00:30 Room Air 06/13/17 23:18 36.2 76 17 130/82 (98) 94 Room Air Physical Exam General Appearance: no apparent distress, + obese Eyes: normal inspection, EOMI ENT: normal ENT inspection, hearing grossly normal Neck: supple Respiratory/Chest: chest non-tender, lungs clear, normal breath sounds, no respiratory distress, no accessory muscle use Cardiovascular: regular rate, rhythm, no edema, no gallop, no JVD, no murmur Abdomen: normal bowel sounds, soft, no organomegaly, no pulsatile mass, + tenderness Extremities: normal range of motion, non-tender, normal inspection, no pedal edema, no calf tenderness 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, no motor/sensory deficits, alert, normal mood/affect, oriented x 3 Skin: normal color, warm/dry, no rash Laboratory Results Last 24 Hours Test 06/13/17 17:40 06/13/17 18:04 06/13/17 20:39 06/14/17 05:54 Erythrocyte Sedimentation Rate 17 mm/hr C-Reactive Protein 2.07 mg/dl Bedside Glucose 72 mg/dl 162 mg/dl White Blood Count 5.02 K/uL Red Blood Count 4.24 M/uL Hemoglobin 12.7 g/dL Hematocrit 38.4 % Mean Corpuscular Volume 90.6 fL Mean Corpuscular Hemoglobin 30.0 pg Mean Corpuscular Hemoglobin Concent 33.1 g/dl Platelet Count 131 K/uL Mean Platelet Volume 12.8 fL Neutrophils (%) (Auto) 42.0 % Lymphocytes (%) (Auto) 47.0 % Monocytes (%) (Auto) 6.2 % Eosinophils (%) (Auto) 4.2 % Basophils (%) (Auto) 0.6 % Neutrophils # (Auto) 2.11 K/uL Lymphocytes # (Auto) 2.36 K/uL Monocytes # (Auto) 0.31 K/uL Eosinophils # (Auto) 0.21 K/uL Basophils # (Auto) 0.03 K/uL RDW Standard Deviation 44.9 fL RDW Coefficient of Variation 13.6 % Immature Granulocyte % (Auto) 0.0 % Immature Granulocyte # (Auto) 0.00 K/uL Sodium Level 139 mmol/L Potassium Level 4.0 mmol/L Chloride Level 106 mmol/L Carbon Dioxide Level 27 mmol/L Anion Gap 6.0 mmol/L Blood Urea Nitrogen 15 mg/dl Creatinine 1.50 mg/dl Est Creatinine Clear Calc Drug Dose 90.1 ml/min Estimated GFR () 64.2 Estimated GFR (Non- 55.4 BUN/Creatinine Ratio 10.1 Random Glucose 151 mg/dl Calcium Level 8.4 mg/dl Phosphorus Level 3.6 mg/dl Magnesium Level 2.1 mg/dl Total Bilirubin 0.4 mg/dl Aspartate Amino Transf (AST/SGOT) 281 U/L Alanine Aminotransferase (ALT/SGPT) 222 U/L Alkaline Phosphatase 111 U/L Total Protein 7.1 gm/dl Albumin 3.0 gm/dl Globulin 4.1 gm/dl Albumin/Globulin Ratio 0.7 Test 06/14/17 08:27 06/14/17 12:21 Bedside Glucose 127 mg/dl 105 mg/dl Assessment and Plan 47 years old man with persistently elevated LFT , uncontrolled diabetes mellitus , chronic myositis, hypercoagulable state with multiple PEs currently on Xarelto and hypertension Presented to the ED with black tarry stool. GI bleed/melena S/P EGD negative for any acute ulcer likely anal fissure start Anusol PPI switched to po by GI persistently elevated LFT , differential diagnoses includes chronic viral hepatitis, steatohepatitis or autoimmune hepatitis. previous alpha-1- antitrypsin and ceruloplasmin both were checked 03/2017 and were negative. may need liver biopsy at some point Multiple PEs Xarelto was restarted Chronic myositis and CK, denies marijuana use DM - last hemoglobin A1c is 10.6 in April 2017 , placed on SS HTN - Cont B tristan - and continue holding Lisinopril
[2017-06-14] MEDS: RIVAROXABAN 20 MG TAB PO SCH (18:26)
[2017-06-14] MEDS: ZOLPIDEM TARTRATE 10 MG TAB PO SCH (21:51)
[2017-06-14 23:15] VITALS: BP 117/75; PULSE 72; TEMP 36.9; O2SAT 93
[2017-06-15] MEDS: NITROGLYCERIN OINT 2% 1GM PACKET EXT SCH ×2 (01:00→06:19)
[2017-06-15] MEDS: OXYCODONE/ACETAMINOPHEN 5-325 TAB PO PRN ×2 (03:38→11:35)
[2017-06-15 07:13] LABS: ALB/GLOB RATIO 0.7 (0.9-2); BUN/CREATININE RATIO 9.1 (10-20); CALCIUM 8.1 mg/dl (8.5-10.1); CREATININE 1.4 mg/dl (0.60-1.40); MAGNESIUM 1.8 mg/dl (1.8-2.4); POTASSIUM 3.9 mmol/L (3.5-5.1)
[2017-06-15 07:48] LABS: BASO % 0.4 %; BASO ABS # 0.02 K/uL (0-0.2); COMPLETE YES; EOS % 4.5 %; GIANT PLATELETS 2+; HEMATOCRIT 38.3 % (42-52); LYMPH % 48.3 %; LYMPH ABS # 2.15 K/uL (1.2-3.4); MEAN CELL VOLUME 91.2 fL (80-100); MEAN CORPUSCULAR HEMOGLOBIN 29.3 pg (25-34); MEAN CORPUSCULAR HGB CONC 32.1 g/dl (32-36); MEAN PLATELET VOLUME 12.5 fL (7.4-10.4); MONO % 4.9 %; NEUT % 41.9 %; PLATELET COUNT 117 K/uL (130-400); WHITE BLOOD COUNT 4.45 K/uL (4.8-10.8)
[2017-06-15 07:49] VITALS: BP 126/89; PULSE 80; TEMP 36.8; O2SAT 93
[2017-06-15] MEDS ORDERED: PANTOprazole SOD 40 MG TAB PO SCH (09:00)
[2017-06-15] MEDS: ALPRAZOLAM 0.5 MG TAB PO SCH (09:09)
[2017-06-15] MEDS: ESCITALOPRAM OXALATE 20 MG TAB PO SCH (09:09)
[2017-06-15] MEDS: ESCITALOPRAM OXALATE 10 MG TAB PO SCH (09:09)
[2017-06-15] MEDS: METOPROLOL SUCC 50MG EXT REL TAB PO SCH (09:10)
[2017-06-15] MEDS: INSULIN ASPART 100 UNITS/ML 3 ML PEN SC SCH (09:14)
[2017-06-15] MEDS: CYCLOBENZAPRINE HCL 10 MG TAB PO PRN (09:16)
[2017-06-15] MEDS ORDERED: MRLP17X OR ×2 (11:39→12:07)
[2017-06-15] MEDS ORDERED: SENN-65 PO ×2 (11:39→12:07)
[2017-06-15] MEDS ORDERED: METO1TAB69 PO ×2 (11:39→12:07)
[2017-06-15 12:24] VITALS: BP 126/89; PULSE 80; TEMP 36.8; O2SAT 93
--- NOTE | 2017-06-15 15:43 | Discharge Summary ---
Discharge Summary Date of Service Jun 15, 2017. Discharge Summary Admission Date: Jun 13, 2017 at 05:31 Discharge Date: Jun 15, 2017 Discharge Disposition: Home Principal Diagnosis: GI bleed Problems/Secondary Diagnoses: (1) Anxiety Status: Chronic (2) CKD (chronic kidney disease), stage III Status: Chronic (3) Costochondritis Status: Chronic (4) Depression Status: Chronic (5) Elevated CK Status: Chronic (6) Essential hypertension Status: Chronic (7) GERD (gastroesophageal reflux disease) Status: Chronic (8) H/O colonoscopy Status: Chronic (9) H/O esophagogastroduodenoscopy Status: Chronic (10) History of esophageal ulcer Status: Chronic (11) History of muscle biopsy Status: Chronic (12) History of rectal surgery Status: Chronic (13) Hx of pulmonary embolus Status: Chronic (14) Hyperlipidemia Status: Chronic (15) Hypertension Status: Chronic (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 (17) Prediabetes Status: Chronic (18) S/P cardiac catheterization Status: Chronic Immunizations: Have You Had Influenza Vaccine: Yes Influenza Vaccine Date: Jul 18, 2013 History of Tetanus Vaccine?: 2008 Tetanus Immunization Date: Aug 21, 2009 History of Pneumococcal: No History of Hepatitis B Vaccine: No Medication Reconciliation New Medications: Polyethylene (Miralax) 17 Gm Pow 1 PKT OR DAILY for 30 Days, #30 PKT 3 Refills Senna/Docusate Sod (Senokot S) 1 Tab Tab 1 TAB PO BID for 30 Days, #60 TAB 3 Refills stop if you develope diarrhea Continued Medications: Alprazolam (Xanax) 1 Mg Tab 1 MG PO TID, TAB Cyclobenzaprine Hcl (Flexeril) 10 Mg Tab 10 MG PO TID PRN for SPASMS, TAB Escitalopram (Lexapro) 10 Mg Tab 10 MG PO DAILY, TAB Escitalopram Oxalate (Lexapro) 20 Mg Tab 20 MG PO DAILY, TAB Fluticasone Propionate (Nasal) (Flonase Allergy Relief) 50 Mcg/Act Spr 2 SPRAYS WALDEMAR DAILY PRN for ALLERGIC REACTION Insulin Aspart (Novolog Flexpen) 100 Units/Ml Inj 12 UNITS SC ACHS for 30 Days, #2 PEN 6 Refills please be sure the pen capacity will be enough for one month Insulin Glargine (Lantus Solostar) 100 Unit/Ml Inj 50 UNITS SQ QAM, PEN Lisinopril (Lisinopril) 5 Mg Tab 1 TAB PO DAILY, #30 Metformin Ext Rel (Glucophage Ext Rel) 500 Mg Tab 500 MG PO DAILY, TAB Methylphenidate (Ritalin) 20 Mg Tab 20 MG PO BID, TAB Metoprolol Succ (Toprol Xl) (Toprol-Xl ) 100 Mg Tabcr 100 MG PO DAILY for 30 Days, #30 TAB 1 Refill (This prescription has been renewed) Oxycodone Ir (Roxicodone Ir) 5 Mg Tab 10 MG PO Q4H PRN for Severe Pain, TAB Pantoprazole (Protonix) 40 Mg Tab 40 MG PO DAILY, #30 TAB Rivaroxaban (Xarelto) 20 Mg Tab 20 MG PO DAILY, TAB Zolpidem Tartrate (Ambien) 10 Mg Tab 10 MG PO HS, TAB 5 Refills Referrals At Discharge Follow up Referrals: Distributor [facility]er Referral - Within 1-2 Weeks with Yoel Werner M.D. Discharge Exam Review of Systems: Constitutional: No fever, No chills, No sweats, No weight loss, No weakness , No fatigue, No problem reported Eyes: No worsening of vision, No eye pain, No redness, No discharge, No diplopia, No problem reported ENT: No hearing loss, No unusual epistaxis, No nasal symptoms, No sore throat, No tinnitus, No dental problems, No trouble swallowing, No problem reported Respiratory: No cough, No sputum, No wheezing, No shortness of breath, No dyspnea on exertion, No dyspnea at rest, No hemoptysis, No problem reported Cardiovascular: No chest pain, No orthopnea, No PND, No edema, No claudication, No palpitations, No problem reported Abdomen: No pain, No nausea, No vomiting, No diarrhea, No constipation, No GI bleeding, No problem reported Musculoskeletal: + muscle pain, No joint pain, No swelling, No calf pain, No problem reported Genitourinary - Male: No hematuria, No dysuria, No urinary frequency, No urinary urgency, No urinary hesitancy, No urinary retention, No urinary incontinence, No penile discharge, No lesions, No impotence, No problem reported Neurologic: No memory loss, No paralysis, No weakness, No numbness/tingling , No vertigo, No balance problems, No problem reported Psychiatric: No depression symptoms, No anhedonism, No anxiety, No insomnia , No substance abuse, No problem reported Endocrine: No fatigue, No excessive thirst, No excessive urination, No problem reported Hematologic / Lymphatic: No abnormal bleeding/bruising, No clotting problems , No swollen lymph nodes, No night sweats, No problem reported Integumentary: No rash, No itch, No new/changing skin lesions, No color change, No bleeding, No problem reported Physical Exam: General Appearance: no apparent distress Eyes: normal inspection, EOMI ENT: normal ENT inspection Neck: supple Respiratory/Chest: chest non-tender, lungs clear, normal breath sounds, no respiratory distress, no accessory muscle use Cardiovascular: regular rate, rhythm, no edema, no gallop Abdomen / GI: normal bowel sounds, non tender, soft, no organomegaly, no pulsatile mass Extremities: normal inspection, no calf tenderness, normal capillary refill , no pedal edema, normal range of motion 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 For his GI bleed/melena S/P EGD negative for any acute ulcer likely bleeding is secondary to anal fissure PPI switched to po by GI. CT scan abdomen with ordered, results as attached below 10 x 6 mm nodular density adjacent to the posterior right hepatic lobe within the region of the right posterior pararenal space is new from prior study dated 03/24/2016 and is nonspecific. Attention at follow-up recommended. I contacted the patient and informed him about results and that he needs to see GI physicians within 2 weeks of discharge. For his persistently elevated LFT , differential diagnoses includes chronic viral hepatitis, steatohepatitis or autoimmune hepatitis. 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 Clinically suspected obstructive sleep apnea he was instructed to have sleep study as an outpatient Total Time Spent: Greater than 30 minutes This includes examination of the patient, discharge planning, medication reconciliation, and communication with other providers. Discharge Instructions Please refer to the electronic Patient Visit Report (Discharge Instructions) for additional information.
[2017-07-24] MEDS ORDERED: INSDGIPEN SQ (19:08)
[2017-07-24] MEDS ORDERED: OXYC1TAB3 PO (19:08)
[2017-07-24] MEDS ORDERED: CYCL10TA6 PO (19:08)
[2017-07-24] MEDS ORDERED: PANT40TA PO (19:08)
[2017-07-24] MEDS ORDERED: ESCI10TA17 PO (19:08)
[2017-07-24] MEDS ORDERED: METFTAB PO (19:08)
[2017-07-24] MEDS ORDERED: ESCI1TAB18 PO (19:08)
[2017-07-24] MEDS ORDERED: NVLG SQ (19:08)
== END 2017-06-15 12:54 | disposition home or self-care (01) | DRG 394 ==
LOC: C.EDB 00:17 → C.MSW 05:31 → ENRESERV 05:41
PROVIDERS: ADMIT Internal Medicine; ATTEND Internal Medicine
PROC: 0DJ08ZZ Inspection of Upper Intestinal Tract, Via Natural or Artificial Opening Endoscopic (ICD-10-PCS; principal; 2017-06-13 13:39)
DX: K60.2 Anal fissure, unspecified (principal); D68.59 Other primary thrombophilia; K92.2 Gastrointestinal hemorrhage, unspecified; R79.89 Other specified abnormal findings of blood chemistry; N18.3 Chronic kidney disease, stage 3 (moderate); E11.9 Type 2 diabetes mellitus without complications; I12.9 Hypertensive chronic kidney disease with stage 1 through stage 4 chronic kidney disease, or unspecified chronic kidney disease; M60.9 Myositis, unspecified; K21.9 Gastro-esophageal reflux disease without esophagitis; F41.9 Anxiety disorder, unspecified; F32.9 Major depressive disorder, single episode, unspecified; Z79.899 Other long term (current) drug therapy; Z79.01 Long term (current) use of anticoagulants; Z79.4 Long term (current) use of insulin; Z86.711 Personal history of pulmonary embolism; Z82.49 Family history of ischemic heart disease and other diseases of the circulatory system; Z83.2 Family history of diseases of the blood and blood-forming organs and certain disorders involving the immune mechanism

== ENCOUNTER 2017-06-23 15:53 | Emergency (ER) | payer OTHER ==
[~2017-06-23] VITALS: Ht 188 cm; Wt 131.1 kg
[~2017-06-23 15:53] MED LIST changes: +MRLP17X OR; +SENN-65 PO
[2017-06-23 15:59] VITALS: TEMP 36.7; Ht 188 cm; Wt 131.1 kg
[2017-06-23] MEDS ORDERED: SODIUM CHLORIDE 0.9% 1000ML 1,000 ML IV STA (16:07)
[2017-06-23] MEDS ORDERED: ONDANSETRON INJ 2 MG/ML 2 ML VIAL IV STA (16:11)
[2017-06-23] MEDS ORDERED: FENTANYL CITRATE INJ 50 MCG/1 ML 2 ML VIAL IV PRN (16:15)
--- NOTE | 2017-06-23 16:19 | DIAGNOSTIC IMAGING REPORT ---
CHEST ONE VIEW PORTABLE CLINICAL HISTORY: ABDOMINAL PAIN/GI pain. Nausea. COMPARISON STUDY: 06/13/2017 FINDINGS: Mild cardiomegaly. Diaphragms smooth. Lungs are clear. IMPRESSION: Mild cardia megaly. Otherwise negative study. The above report was generated using voice recognition software. It may contain grammatical, syntax or spelling errors. Electronically signed by: Michael Cabrera M.D. 06/23/2017 4:18 PM Dictated Date/Time: 06/23/2017 4:18 PM
--- NOTE | 2017-06-23 16:41 | EMERGENCY ROOM VISIT NOTE ---
History Report prepared by Chad: Bijan Corona Under the Supervision of: Dr. Nasim Ramirez D.O. First contact with patient: 16:02 Chief Complaint: ABDOMINAL PAIN Stated Complaint: ABD & BACK PAIN History of Present Illness The patient is a 47 year old male who presents to the Emergency Room with complaints of intermittent upper abdominal pain that started June 06. He rates his pain as a 7/10 in severity. He describes the pain as a sharp sensation and reports that the pain is worsened with exertion. The patient states that the pain is relieved with pain medication. He states that he came into the ED June 13 for abdominal pain and rectal bleeding. The patient states saw Dr. Vargas, Dr. Rangel, and Dr. Lombardo for his pain and rectal bleeding and was admitted for a couple of days. The patient states that he had an endoscope and a CT scan done, which showed a fissure and lesion on his liver. He states that he has had fissure in the past, which he had surgery for in 2012 along with colorectal surgery. The patient states that he was given pain medication, but denies any relief of pain. He states that he is still experiencing abdominal pain and rectal bleeding. The patient also admits to experiencing constipation four days ago. He states that he takes Xarelto for blood clots in his lungs, which he admits has occurred four times. The patient states that his PCP is Dr. Azevedo, but denies seeing him for his symptoms. He denies any ulcers, hemorrhoids, and cholecystectomy, Source of History: patient Onset: June 06 Position: abdomen Symptom Intensity: 7/10 Quality: sharp Timing: intermittent Modifying Factors (Worsening): exertion Modifying Factors (Relieving): other (pain medication) Note: Associated symptoms include: constipation and rectal bleeding Review of Systems See HPI for pertinent positives & negatives. A total of 10 systems reviewed and were otherwise negative. Past Medical & Surgical Medical Problems: (1) Abdominal pain (2) BRIDGETTE (acute kidney injury) (3) Anxiety (4) Blood clot in vein (5) Chest pain (6) Chest pain (7) Chest wall pain (8) CKD (chronic kidney disease), stage III (9) Costochondritis (10) Depression (11) Diabetes (12) Elevated CK (13) Elevated CK (14) Elevated CPK (15) Essential hypertension (16) Fever and chills (17) GERD (gastroesophageal reflux disease) (18) GI bleed (19) Hemoptysis (20) History of esophageal ulcer (21) History of pleural effusion (22) Hx of pulmonary embolus (23) Hyperglycemia (24) Hyperlipidemia (25) Hypertension (26) Myositis (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 (28) Pharyngitis (29) Pleuritic chest pain (30) Prediabetes (31) Substernal chest pain (32) Suspected pulmonary embolism (33) Transaminitis Surgical Problems: (1) H/O colonoscopy (2) H/O esophagogastroduodenoscopy (3) History of muscle biopsy (4) History of rectal surgery (5) S/P cardiac catheterization Family History Blood clots FH: brain aneurysm MOTHER (mother, age 32) Social History Smoking Status: Never Smoker Alcohol Use: occasionally Drug Use: none Marital Status: single Housing Status: lives alone Occupation Status: disabled Current/Historical Medications Scheduled Alprazolam (Xanax), 1 MG PO TID Escitalopram (Lexapro), 10 MG PO DAILY Escitalopram Oxalate (Lexapro), 20 MG PO DAILY Insulin Aspart (Novolog), 12 UNITS SQ ACHS Insulin Glargine (Lantus Solostar), 50 UNITS SQ QAM Lisinopril (Zestril), 10 MG PO QAM Metformin Ext Rel (Glucophage Ext Rel), 500 MG PO DAILY Methylphenidate (Ritalin), 20 MG PO BID Metoprolol Succinate (Toprol Xl), 100 MG PO DAILY Pantoprazole (Protonix), 40 MG PO DAILY Rivaroxaban (Xarelto), 20 MG PO DAILY Zolpidem Tartrate (Ambien), 10 MG PO HS Scheduled PRN Cyclobenzaprine Hcl (Flexeril), 10 MG PO TID PRN for SPASMS Fluticasone Propionate (Nasal) (Flonase Allergy Relief), 2 SPRAYS WALDEMAR DAILY PRN for ALLERGIC REACTION Oxycodone Ir (Roxicodone Ir), 10 MG PO Q4H PRN for Severe Pain Allergies Coded Allergies: Iodine (Verified Allergy, Severe, THROAT SWELLING, 06/23/17) 02/18/13: patient denies IV contrast allergy Patient has been pre-treated in the past with methylprednisolone and diphenhydramine without incident following IV dye administration. Shellfish (Verified Allergy, Severe, THROAT SWELLING, 06/23/17) Iodinated Diagnostic Agents (Verified Allergy, Unknown, swelling, 06/23/17) Plasma, Human (Verified Allergy, Unknown, ANAPHYLAXIS, 06/23/17) Acetaminophen (Verified Adverse Reaction, Unknown, GI ISSUES, 06/23/17) Hydrocodone (Verified Adverse Reaction, Unknown, GI ISSUES, 06/23/17) Physical Exam Vital Signs Date Time Temp Pulse Resp B/P (MAP) Pulse Ox O2 Delivery O2 Flow Rate FiO2 06/23/17 19:15 71 19 164/91 96 06/23/17 17:00 69 18 154/87 96 06/23/17 16:45 71 06/23/17 15:59 36.7 76 20 152/101 97 Room Air Physical Exam GENERAL: Patient is awake, alert, and in no acute distress. Patient is resting comfortably and showing no signs of anxiety EYES: The conjunctivae are clear. The pupils are round and reactive. EARS, NOSE, MOUTH AND THROAT: The nose is without any evidence of any deformity. Mucous membranes are moist tongue is midline NECK: The neck is nontender and supple. RESPIRATORY: Normal respiratory effort is noted there is no evidence of wheezing rhonchi or rales CARDIOVASCULAR: Regular rate and rhythm noted there no murmurs rubs or gallops normal S1 normal S2 GASTROINTESTINAL: Mildly distended but soft. Diffuse tenderness upon palpation, especially in the upper quadrant. No guarding or rigidity. MUSCULOSKELETAL/EXTREMITIES: There is no evidence of gross deformity full range of motion is noted in the hips and shoulders SKIN: There is no obvious evidence of any rash. There are no petechiae, pallor or cyanosis noted. NEUROLOGIC: Awake and alert oriented x3. Medical Decision & Procedures ER Provider Diagnostic Interpretation: X-ray results as stated below per interpretation by me and the radiologist. CHEST ONE VIEW PORTABLE CLINICAL HISTORY: ABDOMINAL PAIN/GI pain. Nausea. COMPARISON STUDY: 06/13/2017 FINDINGS: Mild cardiomegaly. Diaphragms smooth. Lungs are clear. IMPRESSION: Mild cardia megaly. Otherwise negative study. The above report was generated using voice recognition software. It may contain grammatical, syntax or spelling errors. Electronically signed by: Michael Cabrera M.D. 06/23/2017 4:18 PM Dictated Date/Time: 06/23/2017 4:18 PM Laboratory Results 06/23/17 16:30 Red Blood Count 4.68, Mean Corpuscular Volume 87.6, Mean Corpuscular Hemoglobin 29.9, Mean Corpuscular Hemoglobin Concent 34.1, Mean Platelet Volume 13.0, Neutrophils (%) (Auto) 49.8, Lymphocytes (%) (Auto) 40.5, Monocytes (%) (Auto) 4.9, Eosinophils (%) (Auto) 4.0, Basophils (%) (Auto) 0.6, Neutrophils # (Auto) 3.15, Lymphocytes # (Auto) 2.56, Monocytes # (Auto) 0.31, Eosinophils # (Auto) 0.25, Basophils # (Auto) 0.04 06/23/17 16:30 Test 06/23/17 16:30 06/23/17 16:42 06/23/17 18:30 White Blood Count 6.32 K/uL (4.8-10.8) Red Blood Count 4.68 M/uL (4.7-6.1) Hemoglobin 14.0 g/dL (14.0-18.0) Hematocrit 41.0 % (42-52) Mean Corpuscular Volume 87.6 fL (80-100) Mean Corpuscular Hemoglobin 29.9 pg (25-34) Mean Corpuscular Hemoglobin Concent 34.1 g/dl (32-36) Platelet Count 194 K/uL (130-400) Mean Platelet Volume 13.0 fL (7.4-10.4) Neutrophils (%) (Auto) 49.8 % Lymphocytes (%) (Auto) 40.5 % Monocytes (%) (Auto) 4.9 % Eosinophils (%) (Auto) 4.0 % Basophils (%) (Auto) 0.6 % Neutrophils # (Auto) 3.15 K/uL (1.4-6.5) Lymphocytes # (Auto) 2.56 K/uL (1.2-3.4) Monocytes # (Auto) 0.31 K/uL (0.11-0.59) Eosinophils # (Auto) 0.25 K/uL (0-0.5) Basophils # (Auto) 0.04 K/uL (0-0.2) RDW Standard Deviation 42.8 fL (36.4-46.3) RDW Coefficient of Variation 13.4 % (11.5-14.5) Immature Granulocyte % (Auto) 0.2 % Immature Granulocyte # (Auto) 0.01 K/uL (0.00-0.02) Prothrombin Time 13.8 SECONDS (9.0-12.0) Prothromb Time International Ratio 1.3 (0.9-1.1) Activated Partial Thromboplast Time 34.9 SECONDS (21.0-31.0) Partial Thromboplastin Ratio 1.3 Anion Gap 9.0 mmol/L (3-11) Est Creatinine Clear Calc Drug Dose 111.9 ml/min Estimated GFR () 84.1 Estimated GFR (Non- 72.6 BUN/Creatinine Ratio 9.9 (10-20) Calcium Level 8.7 mg/dl (8.5-10.1) Total Bilirubin 0.3 mg/dl (0.2-1) Direct Bilirubin 0.1 mg/dl (0-0.2) Aspartate Amino Transf (AST/SGOT) 219 U/L (15-37) Alanine Aminotransferase (ALT/SGPT) 234 U/L (12-78) Alkaline Phosphatase 168 U/L (45-117) Total Creatine Kinase 982 U/L (39-308) Creatine Kinase MB 5.7 ng/ml (0.5-3.6) Creatine Kinase MB Ratio 0.6 (0-3.0) Troponin I < 0.015 ng/ml (0-0.045) Total Protein 8.6 gm/dl (6.4-8.2) Albumin 3.6 gm/dl (3.4-5.0) Lipase 344 U/L (73-393) Bedside Lactic Acid Venous 1.16 mmol/L (0.90-1.70) Urine Color YELLOW Urine Appearance CLEAR (CLEAR) Urine pH 6.0 (4.5-7.5) Urine Specific [place] 1.026 (1.000-1.030) Urine Protein 1+ (NEG) Urine Glucose (UA) NEG (NEG) Urine Ketones NEG (NEG) Urine Occult Blood NEG (NEG) Urine Nitrite NEG (NEG) Urine Bilirubin NEG (NEG) Urine Urobilinogen NEG (NEG) Urine Leukocyte Esterase NEG (NEG) Urine WBC (Auto) 1-5 /hpf (0-5) Urine RBC (Auto) 0-4 /hpf (0-4) Urine Hyaline Casts (Auto) 1-5 /lpf (0-5) Urine Epithelial Cells (Auto) 5-10 /lpf (0-5) Urine Bacteria (Auto) NEG (NEG) Laboratory results per my review. Medications Administered Medications (Trade) Dose Ordered Sig/Roxie Route Start Time Stop Time Status Last Admin Dose Admin Sodium Chloride 1,000 ml @ 999 mls/hr Q1H1M STAT IV 06/23/17 16:07 06/23/17 17:07 DC 06/23/17 16:07 999 MLS/HR Fentanyl Citrate (Fentanyl Inj) 100 mcg Q15M PRN IV 06/23/17 16:15 06/23/17 20:21 DC 06/23/17 16:41 100 MCG Ondansetron HCl (Zofran Inj) 4 mg NOW STAT IV 06/23/17 16:11 06/23/17 16:12 DC 06/23/17 16:41 4 MG Oxycodone HCl (Roxicodone Immediate Rel 5MG Home Pack) 1 homepack UD ONCE PO 06/23/17 19:00 06/23/17 19:01 DC 06/23/17 19:00 1 HOMEPACK ECG Indication: abdominal pain Rate (beats per minute): 71 Rhythm: normal sinus Findings: T-wave inversion (Anterior, Lateral), no ectopy Comparison ECG Date: 06/13/17 Change: no significant change ED Course 1603: The patient was evaluated in room A09A. A complete history and physical examination were performed. 1607: Ordered Sodium Chloride 1000 ml @ 999 mls/hr IV. 1611: Ordered Zofran Injection 4 mg IV. 1615: Ordered Fentanyl Injection 100 mcg IV. 1815: I discussed the patients case with Dr. Rangel, [facility]. He advises that the patient follows up with him tomorrow. 1845: Upon reevaluation, the patient is doing well. I discussed the results and treatment plan with him. The patient verbalized agreement of the treatment plan. He was discharged home. 1900: Ordered Oxycodone HCl 1 homepack PO. Medical Decision The differential diagnosis includes etiologies such as appendicitis, diverticulitis, PUD, biliary pathology, UTI, pancreatitis, obstruction, mesenteric ischemia, aortic pathology, infections, inflammatory bowel disease, renal colic, as well as others were entertained. Nursing notes reviewed. Patient's previous electronic medical were reviewed. The patient is a 47-year-old male who has a history of abdominal pain who presented to the emergency department for an evaluation of upper abdominal pain. The patient also was having rectal bleeding but he has a known rectal fissure appears to be some bleeding. The patient was treated with IV fluids IV pain medicine and IV antiemetics in the emergency department. I discussed the patient's laboratory and radiographic studies with him. I also discussed his case with his primary GI physician. I reviewed the patient's recent workup which included CT the abdomen and pelvis. At this time his physical exam was not consistent with an acute surgical abdomen. Studies do not suggest a different process at this time. He is feeling much better on subsequent reevaluation. 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 He was also encouraged to drink plenty clear liquids and continue all medications as prescribed. He was also encouraged to return to emergency department immediately if symptoms change worsen or the need arises. Medication Reconcilliation Current Medication List: was personally reviewed by me Blood Pressure Screening Patient's blood pressure: Elevated blood pressure Blood pressure disposition: Elevated BP felt to be situational Consults Time Called: 1814 Consulting Physician: Dr. Rangel, [facility] Returned Call: [id number]: I discussed the patients case with Dr. Rangel, [facility]. He advises that the patient follows up with him tomorrow. Impression Primary Impression: Upper abdominal pain Additional Impressions: Rectal bleeding Elevated liver function tests Rhabdomyolysis Scribe Attestation The scribe's documentation has been prepared under my direction and personally reviewed by me in its entirety. I confirm that the note above accurately reflects all work, treatment, procedures, and medical decision making performed by me. Departure Information Dispostion Home / Self-Care Referrals Edgardo Azevedo D.O. (PCP) Forms Call Back Authorization, HOME CARE DOCUMENTATION FORM, IMPORTANT VISIT INFORMATION Patient Instructions Abdominal Pain, My [facility] tabulate Additional Instructions Call the GI doctor in the morning to schedule a follow-up appointment. Drink plenty clear liquids. Continue all medications as prescribed. Problem Qualifiers Additional Impressions: Rhabdomyolysis Rhabdomyolysis type: non-traumatic Qualified Codes: M62.82 - Rhabdomyolysis
[2017-06-23 16:57] LABS: INR 1.3 (0.9-1.1); PARTIAL THROMBOPLASTIN RATIO 1.3; PROTHROMBIN TIME (PATIENT) 13.8 SECONDS (9.0-12.0)
[2017-06-23 17:01] LABS: BASO % 0.6 %; BASO ABS # 0.04 K/uL (0-0.2); COMPLETE YES; IG% 0.2 %; LYMPH % 40.5 %; LYMPH ABS # 2.56 K/uL (1.2-3.4); MEAN CELL VOLUME 87.6 fL (80-100); MEAN CORPUSCULAR HEMOGLOBIN 29.9 pg (25-34); MEAN CORPUSCULAR HGB CONC 34.1 g/dl (32-36); MONO % 4.9 %; NEUT % 49.8 %; PLATELET COUNT 194 K/uL (130-400); RED BLOOD COUNT 4.68 M/uL (4.7-6.1); WHITE BLOOD COUNT 6.32 K/uL (4.8-10.8)
[2017-06-23] MEDS ORDERED: PANT40TA PO (17:12)
[2017-06-23] MEDS ORDERED: METO100T7 PO (17:12)
[2017-06-23] MEDS ORDERED: LISI-461 PO (17:12)
[2017-06-23] MEDS ORDERED: NVLG SQ (17:12)
[2017-06-23 17:28] LABS: POTASSIUM 3.5 mmol/L (3.5-5.1)
[2017-06-23 17:36] LABS: AST/SGOT 219 U/L (15-37)
[2017-06-23 17:39] LABS: ALKALINE PHOSPHATASE 168 U/L (45-117); ALT/SGPT 234 U/L (12-78); BLOOD UREA NITROGEN 12 mg/dl (7-18); BUN/CREATININE RATIO 9.9 (10-20); CALCIUM 8.7 mg/dl (8.5-10.1); CARBON DIOXIDE 26 mmol/L (21-32); CHLORIDE 106 mmol/L (98-107); CKMB/CK RATIO 0.6 (0-3.0); GLUCOSE 148 mg/dl (70-99)
[2017-06-23 17:40] LABS: SODIUM 139 mmol/L (136-145)
[2017-06-23 18:52] LABS: URINE APPEARANCE CLEAR (CLEAR); URINE BILIRUBIN NEG (NEG); URINE COLOR YELLOW; URINE NITRITE NEG (NEG); URINE SPECIFIC GRAVITY 1.026 (1.000-1.030); UROBILINOGEN NEG (NEG)
[2017-06-23 18:55] LABS: MANUAL MICROSCOPIC REQUIRED? NO; REVIEW REQ? NO
[2017-06-23] MEDS ORDERED: OXYCODONE IR HOME PACK PO ONE (19:00)
[2017-06-23 19:15] VITALS: BP 164/91; PULSE 71; O2SAT 96
[2017-07-24] MEDS ORDERED: NVLG SQ (19:08)
[2017-07-24] MEDS ORDERED: CYCL10TA6 PO (19:08)
[2017-07-24] MEDS ORDERED: PANT40TA PO (19:08)
[2017-07-24] MEDS ORDERED: METFTAB PO (19:08)
[2017-07-24] MEDS ORDERED: ESCI10TA17 PO (19:08)
[2017-07-24] MEDS ORDERED: INSDGIPEN SQ (19:08)
[2017-07-24] MEDS ORDERED: ESCI1TAB18 PO (19:08)
[2017-07-24] MEDS ORDERED: OXYC1TAB3 PO (19:08)
== END 2017-06-23 19:42 | disposition home or self-care (01) ==
LOC: C.EDB 15:54 → C.EDA 19:42
DX: R10.10 Upper abdominal pain, unspecified (principal); K62.5 Hemorrhage of anus and rectum; R79.89 Other specified abnormal findings of blood chemistry; M62.82 Rhabdomyolysis; N17.9 Acute kidney failure, unspecified; F41.9 Anxiety disorder, unspecified; Z86.718 Personal history of other venous thrombosis and embolism; N18.3 Chronic kidney disease, stage 3 (moderate); F32.9 Major depressive disorder, single episode, unspecified; E11.9 Type 2 diabetes mellitus without complications; I12.9 Hypertensive chronic kidney disease with stage 1 through stage 4 chronic kidney disease, or unspecified chronic kidney disease; K21.9 Gastro-esophageal reflux disease without esophagitis; Z86.711 Personal history of pulmonary embolism; E78.5 Hyperlipidemia, unspecified; Z82.49 Family history of ischemic heart disease and other diseases of the circulatory system; Z79.01 Long term (current) use of anticoagulants; Z79.4 Long term (current) use of insulin; Z79.899 Other long term (current) drug therapy

== ENCOUNTER 2017-07-22 10:42 | Inpatient (IN) | payer OTHER ==
[~2017-07-22] VITALS: Ht 188 cm; Wt 141.8 kg
[~2017-07-22 10:42] MED LIST changes: +LISI-461 PO; -LSN5 PO; +METO100T7 PO; -METO1TAB69 PO; -MRLP17X OR; +NVLG SQ; -NVLGIPEN SC; -SENN-65 PO
--- NOTE | 2017-07-22 11:01 | EMERGENCY ROOM VISIT NOTE ---
History First contact with patient: 10:47 Chief Complaint: HEADACHE Stated Complaint: URIAS AND NOSEBLEEDS History of Present Illness The patient is a 47 year old male who presents to the Emergency Room via private vehicle with complaints of "headache and nosebleeds". The patient states that he is on Xarelto 2 years for a life time history of 4x pulmonary embolisms. He states that about one week ago he started to have spontaneous nose bleeds, sometimes in his sleep. He states that about one day after he began to have headaches. He is at the headaches for about 4 days now. He points to the back of the head as the location of pain. He rates the headache pain as a 6/10. He notes that sometimes she will feel lightheaded. He states that today while having a bowel movement he noticed some dark red blood he believes. He also has cold sweats. He denies any chest pain, shortness of breath. He denies any history of hemorrhoids. Review of Systems A complete 10-point Review of Systems was discussed with the patient, with pertinent positives and negatives listed in the History of Present Illness. All remaining Review of Systems questions can be considered negative unless otherwise specified. Past Medical/Surgical History Medical Problems: (1) Abdominal pain (2) Abnormal EKG (3) BRIDGETTE (acute kidney injury) (4) Anxiety (5) Blood clot in vein (6) Chest pain (7) Chest pain (8) Chest wall pain (9) CKD (chronic kidney disease), stage III (10) Costochondritis (11) Depression (12) Diabetes (13) Elevated CK (14) Elevated CK (15) Elevated CPK (16) Essential hypertension (17) Fever and chills (18) GERD (gastroesophageal reflux disease) (19) GI bleed (20) Hemoptysis (21) History of esophageal ulcer (22) History of pleural effusion (23) Hx of pulmonary embolus (24) Hyperglycemia (25) Hyperlipidemia (26) Hypertension (27) Myositis (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 (29) Pharyngitis (30) Pleuritic chest pain (31) Prediabetes (32) Substernal chest pain (33) Suspected pulmonary embolism (34) Transaminitis Surgical Problems: (1) H/O colonoscopy (2) H/O esophagogastroduodenoscopy (3) History of muscle biopsy (4) History of rectal surgery (5) S/P cardiac catheterization Family History Blood clots FH: brain aneurysm MOTHER (mother, age 32) Social History Smoking Status: Never Smoker Alcohol Use: occasionally Drug Use: none Marital Status: single Housing Status: lives alone Occupation Status: disabled Current/Historical Medications Scheduled Alprazolam (Xanax), 1 MG PO TID Escitalopram (Lexapro), 10 MG PO DAILY Escitalopram Oxalate (Lexapro), 20 MG PO DAILY Insulin Aspart (Novolog), 12 UNITS SQ ACHS Insulin Glargine (Lantus Solostar), 50 UNITS SQ QAM Lisinopril (Lisinopril), 1 TAB PO QAM Metformin Ext Rel (Glucophage Ext Rel), 500 MG PO DAILY Methylphenidate (Ritalin), 20 MG PO BID Metoprolol Succ (Toprol Xl) (Toprol-Xl), 150 MG PO DAILY Pantoprazole (Protonix), 40 MG PO DAILY Rivaroxaban (Xarelto), 20 MG PO DAILY Zolpidem Tartrate (Ambien), 10 MG PO HS Scheduled PRN Cyclobenzaprine Hcl (Flexeril), 10 MG PO TID PRN for SPASMS Oxycodone Ir (Roxicodone Ir), 10 MG PO Q4H PRN for Severe Pain Physical Exam Vital Signs Date Time Temp Pulse Resp B/P (MAP) Pulse Ox O2 Delivery O2 Flow Rate FiO2 07/22/17 13:36 88 18 120/72 99 Room Air 07/22/17 13:30 99 Room Air 07/22/17 12:12 93 16 113/72 96 Room Air 07/22/17 10:45 36.9 102 16 146/97 99 Room Air Physical Exam VITAL SIGNS - Vital signs and nursing notes were reviewed. Stable. Hypertensive. GENERAL -47-year-old male appearing his stated age who is in no acute distress. Communicates well with provider and answers questions appropriately. SKIN - Without rashes. No petechial rashes. HEAD - NC/AT. EYES - PERRL with EOMI bilaterally. Sclera anicteric. No hyphema. EARS - No deformities of external structures noted on gross examination bilaterally. No pain elicited with palpation of the tragus bilaterally. External auditory canals without discharge or otorrhea. Tympanic membranes pearly conte without retraction or bulging. No fluid or purulent material visualized behind the TM. Handle of malleus, umbo, cone of light, pars tensa/ flaccid all easily visualized. No hemotympanum. NOSE - Midline and without cyanosis. There is a scant amount of bleeding from the bilateral nostrils, with evidence of a tissue rolled into the first nostril. No active hemorrhaging. Septum midline without deviation or septal hematoma noted. MOUTH/OROPHARYNX - Without perioral cyanosis. Buccal mucosa pink and moist and without leukoplakia. Tongue midline with equal elevation of palate bilaterally. No tonsillar hypertrophy, erythema, or exudates noted. Fair dentition noted. No blood in the posterior pharynx. LUNGS - Chest wall symmetric without accessory muscle use, intercostals retractions, or central cyanosis. Normal vesicular breath sounds CTA B/L. No wheezes, rales, or rhonchi appreciated. CARDIAC - RRR with S1/S2. No murmur, rubs, or gallops appreciated. ABDOMEN - Abdominal contour normal without pulsations or visible masses. BS normoactive all four quadrants. No tenderness, palpable masses, hepatosplenomegaly, or ascites noted. EXTREMITIES - No clubbing or peripheral cyanosis. No pretibial edema present. +5 /5 strength noted in UE/LE bilaterally. NEUROLOGIC - Cranial nerves II through XII grossly intact. PSYCH - A&O, and cooperates fully with examiner. Pt is very pleasant and interacts well with examiner. Medical Decision & Procedures ER Provider Diagnostic Interpretation: HEAD WITHOUT CONTRAST (CT) CLINICAL HISTORY: 47 years-old Male presenting with On xarelto, spontaneous headache x 4 days.. TECHNIQUE: Multidetector CT imaging of the head was performed without the use of intravenous contrast. IV contrast: None. A dose lowering technique was used consistent with the principles of ALARA (as low as reasonably achievable). COMPARISON: 02/24/2017. CT DOSE (mGy.cm): The estimated cumulative dose is 558.98 mGy.cm. FINDINGS: Wet Room Worker topogram: Unremarkable. Ventricles and sulci normal in size. Brain parenchyma normal in appearance with preserved conte-white differentiation. No mass effect or midline shift. No hemorrhage or acute territorial infarct. No extra-axial fluid collection. Paranasal sinuses and mastoid air cells clear. Calvarium intact. IMPRESSION: 1. No acute intracranial pathology. Electronically signed by: Ras Day M.D. 07/22/2017 12:03 PM Dictated Date/Time: 07/22/2017 12:00 PM Laboratory Results 07/22/17 11:04 Red Blood Count 4.84, Mean Corpuscular Volume 86.8, Mean Corpuscular Hemoglobin 30.4, Mean Corpuscular Hemoglobin Concent 35.0, Mean Platelet Volume 13.7, Neutrophils (%) (Auto) 62.7, Lymphocytes (%) (Auto) 29.6, Monocytes (%) (Auto) 5.3, Eosinophils (%) (Auto) 1.5, Basophils (%) (Auto) 0.7, Neutrophils # (Auto) 3.77, Lymphocytes # (Auto) 1.78, Monocytes # (Auto) 0.32, Eosinophils # (Auto) 0.09, Basophils # (Auto) 0.04 07/22/17 11:04 Test 07/22/17 11:04 07/22/17 13:43 White Blood Count 6.01 K/uL (4.8-10.8) Red Blood Count 4.84 M/uL (4.7-6.1) Hemoglobin 14.7 g/dL (14.0-18.0) Hematocrit 42.0 % (42-52) Mean Corpuscular Volume 86.8 fL (80-100) Mean Corpuscular Hemoglobin 30.4 pg (25-34) Mean Corpuscular Hemoglobin Concent 35.0 g/dl (32-36) Platelet Count 142 K/uL (130-400) Mean Platelet Volume 13.7 fL (7.4-10.4) Neutrophils (%) (Auto) 62.7 % Lymphocytes (%) (Auto) 29.6 % Monocytes (%) (Auto) 5.3 % Eosinophils (%) (Auto) 1.5 % Basophils (%) (Auto) 0.7 % Neutrophils # (Auto) 3.77 K/uL (1.4-6.5) Lymphocytes # (Auto) 1.78 K/uL (1.2-3.4) Monocytes # (Auto) 0.32 K/uL (0.11-0.59) Eosinophils # (Auto) 0.09 K/uL (0-0.5) Basophils # (Auto) 0.04 K/uL (0-0.2) RDW Standard Deviation 41.5 fL (36.4-46.3) RDW Coefficient of Variation 13.0 % (11.5-14.5) Immature Granulocyte % (Auto) 0.2 % Immature Granulocyte # (Auto) 0.01 K/uL (0.00-0.02) Platelet Estimate NORMAL Giant Platelets 2+ Prothrombin Time 13.8 SECONDS (9.0-12.0) Prothromb Time International Ratio 1.3 (0.9-1.1) Activated Partial Thromboplast Time 34.7 SECONDS (21.0-31.0) Partial Thromboplastin Ratio 1.3 Anion Gap 9.0 mmol/L (3-11) Est Creatinine Clear Calc Drug Dose 65.6 ml/min Estimated GFR () 42.8 Estimated GFR (Non- 36.9 BUN/Creatinine Ratio 8.9 (10-20) Calcium Level 9.4 mg/dl (8.5-10.1) Magnesium Level 2.1 mg/dl (1.8-2.4) Total Bilirubin 0.7 mg/dl (0.2-1) Aspartate Amino Transf (AST/SGOT) 275 U/L (15-37) Alanine Aminotransferase (ALT/SGPT) 310 U/L (12-78) Alkaline Phosphatase 231 U/L (45-117) Total Protein 9.3 gm/dl (6.4-8.2) Albumin 3.9 gm/dl (3.4-5.0) Globulin 5.4 gm/dl (2.5-4.0) Albumin/Globulin Ratio 0.7 (0.9-2) Beta-Hydroxybutyric Acid 1.15 mg/dL (0.2-2.81) Troponin I < 0.015 ng/ml (0-0.045) Medications Administered Medications (Trade) Dose Ordered Sig/Roxie Route Start Time Stop Time Status Last Admin Dose Admin Oxymetazoline HCl (Afrin 0.05% Nasal [place]) 75 sprays STK-MED ONCE .ROUTE 07/22/17 11:14 07/22/17 11:15 DC 07/22/17 11:25 75 SPRAYS Sodium Chloride 1,000 ml @ 999 mls/hr Q1H1M STAT IV 07/22/17 12:16 07/22/17 13:16 DC 07/22/17 12:16 999 MLS/HR Oxycodone HCl (Roxicodone Immediate Rel Tab) 5 mg NOW STAT PO 07/22/17 12:16 07/22/17 12:18 DC 07/22/17 12:36 5 MG Insulin Human Regular (novoLIN-R U-100 PER UNIT) 5 units NOW STAT IV 07/22/17 12:29 07/22/17 12:30 DC 07/22/17 12:36 5 UNITS Insulin Human Regular (novoLIN-R U-100 PER UNIT) 5 units ONE ONCE IV 07/22/17 14:00 07/22/17 14:01 DC 07/22/17 14:27 5 UNITS Insulin Human Regular (novoLIN-R U-100 PER UNIT) 24 units ONE ONCE SC 07/22/17 14:00 07/22/17 14:01 DC 07/22/17 14:27 24 UNITS Medical Decision Patient was seen and evaluated as above. He presents to us today with headache , nosebleeds, and is diaphoretic. He has a history of pulmonary embolism of which he is on Xarelto for. He is also diabetic. He has been having cold sweats. He states that he has been experiencing more nosebleeds, any bad headache. The concern is that he may be experiencing an intracranial bleed, or hypertension Xarelto. CT scan was obtained with results as above. This was found to be negative. Beta EKG does reveal concerning changes with nonspecific T wave changes, as well as some elevation in the lateral leads of the ST segment. I was called by the chip tester reading the EKG and notes that although it is similar to previous, there is some concern that there are changes. I was called by Dr. Moncada. I performed troponins which were initially negative. Repeat EKG is similar compared to previous. Repeat troponin was negative. I consult with the admission team because of the patient 's interval elevation of creatinine, diaphoresis, EKG changes, recurrent nosebleeds, headache and glucose that was severely high. He was given insulin here which helped slightly. With an inpatient management is warranted. Case was discussed with Dr. Bearden who will evaluate the patient for admission. Please refer to further documentation regarding the patient's stay. CBC reveals no concerning leukocytosis or anemia. Coags reveal INR 1.3, noting Xarelto is not gauged based upon this. Random glucose was 578. Sodium low at 1 :30, creatinine high at 2.1. AST, L2 and alkaline phosphatase were all elevated. Troponin negative 2. In evaluation treatment of this patient following differential diagnoses were entertained: CA, PE, intracranial bleed, concussion, epistaxis, among others. Impression Primary Impression: Headache Additional Impressions: Abnormal EKG GI bleed BRIDGETTE (acute kidney injury) Epistaxis Departure Information Dispostion Admitted as an inpatient Condition FAIR Referrals No Doctor, Assigned (PCP) Patient Instructions [facility] Problem Qualifiers
[2017-07-22] MEDS ORDERED: OXYMETAZOLINE HCL 0.05% NA SPR 15 ML BTL ONE (11:14)
[2017-07-22 11:23] LABS: MEAN CELL VOLUME 86.8 fL (80-100); MEAN CORPUSCULAR HEMOGLOBIN 30.4 pg (25-34); RED BLOOD COUNT 4.84 M/uL (4.7-6.1); WHITE BLOOD COUNT 6.01 K/uL (4.8-10.8)
[2017-07-22 11:32] LABS: INR 1.3 (0.9-1.1); PARTIAL THROMBOPLASTIN RATIO 1.3; PROTHROMBIN TIME (PATIENT) 13.8 SECONDS (9.0-12.0)
[2017-07-22 11:49] LABS: ALB/GLOB RATIO 0.7 (0.9-2); ALKALINE PHOSPHATASE 231 U/L (45-117); ALT/SGPT 310 U/L (12-78); AST/SGOT 275 U/L (15-37); BLOOD UREA NITROGEN 19 mg/dl (7-18); BUN/CREATININE RATIO 8.9 (10-20); CALCIUM 9.4 mg/dl (8.5-10.1); CARBON DIOXIDE 28 mmol/L (21-32); CHLORIDE 93 mmol/L (98-107); GLUCOSE 578 mg/dl (70-99); MAGNESIUM 2.1 mg/dl (1.8-2.4); SODIUM 130 mmol/L (136-145)
[2017-07-22 11:53] LABS: MEAN PLATELET VOLUME 13.7 fL (7.4-10.4); PLATELET COUNT 142 K/uL (130-400)
[2017-07-22 11:56] LABS: BASO % 0.7 %; BASO ABS # 0.04 K/uL (0-0.2); COMPLETE YES; EOS % 1.5 %; GIANT PLATELETS 2+; IG% 0.2 %; LYMPH % 29.6 %; LYMPH ABS # 1.78 K/uL (1.2-3.4); MONO % 5.3 %; NEUT % 62.7 %; PLT ESTIMATE NORMAL
--- NOTE | 2017-07-22 12:04 | DIAGNOSTIC IMAGING REPORT ---
HEAD WITHOUT CONTRAST (CT) CLINICAL HISTORY: 47 years-old Male presenting with On xarelto, spontaneous headache x 4 days.. TECHNIQUE: Multidetector CT imaging of the head was performed without the use of intravenous contrast. IV contrast: None. A dose lowering technique was used consistent with the principles of ALARA (as low as reasonably achievable). COMPARISON: 02/24/2017. CT DOSE (mGy.cm): The estimated cumulative dose is 558.98 mGy.cm. FINDINGS: Director Advanced topogram: Unremarkable. Ventricles and sulci normal in size. Brain parenchyma normal in appearance with preserved conte-white differentiation. No mass effect or midline shift. No hemorrhage or acute territorial infarct. No extra-axial fluid collection. Paranasal sinuses and mastoid air cells clear. Calvarium intact. IMPRESSION: 1. No acute intracranial pathology. Electronically signed by: Ras Day M.D. 07/22/2017 12:03 PM Dictated Date/Time: 07/22/2017 12:00 PM
[2017-07-22] MEDS ORDERED: SODIUM CHLORIDE 0.9% 1000ML 1,000 ML IV STA (12:16)
[2017-07-22] MEDS ORDERED: OXYCODONE HCL IR 5 MG TAB (IMMEDIATE RELEASE) PO STA (12:16)
[2017-07-22] MEDS ORDERED: LSN20 PO (12:17)
[2017-07-22] MEDS ORDERED: METO50TA7 PO (12:17)
[2017-07-22] MEDS ORDERED: SILVER NITR/POTASSIUM NITRATE 10 APPLICATOR PACK EXT STA (12:22)
[2017-07-22] MEDS ORDERED: NovoLIN-R INSULIN PER UNIT CHARGE IV STA (12:29)
[2017-07-22 12:43] LABS: BETA-HYDROXYBUTYRATE 1.15 mg/dL (0.2-2.81)
[2017-07-22 13:30] VITALS: O2SAT 99; BMI 39.0
[2017-07-22] MEDS ORDERED: MoRPHine SULFATE 2 MG/ML CARP IV PRN (13:30)
[2017-07-22] MEDS ORDERED: NITROGLYCERIN 0.4 MG SL PER TAB CHARGE SL PRN (13:30)
[2017-07-22] MEDS ORDERED: GLUCOSE 10 TABS/TUBE PO PRN (13:45)
[2017-07-22] MEDS ORDERED: DEXTROSE 50% 50 ML SYR IV PRN (13:45)
[2017-07-22] MEDS ORDERED: GLUCOSE 40% GEL 15 GM TUBE PO PRN (13:45)
[2017-07-22] MEDS ORDERED: GLUCAGON FOR INJ 1 MG VIAL SQ PRN (13:45)
[2017-07-22] MEDS ORDERED: ONDANSETRON INJ 2 MG/ML 2 ML VIAL IV PRN (13:45)
[2017-07-22] MEDS ORDERED: NovoLIN-R INSULIN PER UNIT CHARGE IV ONE (14:00)
[2017-07-22] MEDS ORDERED: NovoLIN-R INSULIN PER UNIT CHARGE SC ONE (14:00)
--- NOTE | 2017-07-22 15:26 | DIAGNOSTIC IMAGING REPORT ---
ABDOMEN CT WITHOUT CONTRAST CT DOSE: 742.77 mGycm HISTORY: abnormal lfts and renal function TECHNIQUE: Multiaxial CT images of the abdomen were performed without contrast. A dose lowering technique was utilized adhering to the principles of ALARA. COMPARISON STUDY: Abdomen and pelvis CT 06/14/2017. FINDINGS: Mild dependent changes seen at the lung bases posteriorly. No suspicious lytic or blastic osseous lesions. Mild thickening of the distal esophagus, unchanged. The visualized loops of bowel show no wall thickening or obstruction. Hepatic steatosis is again noted with a few scattered areas of focal fatty sparing. The unenhanced gallbladder, pancreas, spleen, adrenal glands, and kidneys are unremarkable. No retroperitoneal lymphadenopathy. Stable 9 mm nodule posterior to the right hepatic lobe on image 131. This may contain a few punctate calcifications and is likely benign. The liver remains enlarged at 21 cm in length. IMPRESSION: 1. No significant change compared to the prior study. 2. Mild thickening of the distal esophagus is again noted. 3. Hepatomegaly with fatty change. 4. Stable 9 mm nodule posterior to the right hepatic lobe. This may contain a few punctate calcifications and is therefore likely benign. Electronically signed by: Pete Lawson M.D. 07/22/2017 3:25 PM Dictated Date/Time: 07/22/2017 3:20 PM
[2017-07-22] MEDS ORDERED: METOPROLOL TARTRATE 25 MG TAB PO STA (15:53)
--- NOTE | 2017-07-22 16:16 | ECHOCARDIOGRAM REPORT ---
*NOTICE TO RECEIVING [employer] This information is strictly Confidential and protected under [place] law. [place] law prohibits you from making any further disclosure of this information unless further disclosure is expressly permitted by the written consent of the person to whom it pertains or is authorized by law. A general authorization for the release of medical or other information is not sufficient for this purpose. Hospital accepts no responsibility if the information is made available to any other person, INCLUDING THE PATIENT. Interpretation Summary * Name: LASHANDA GAMEZ JR Study Date: 07/22/2017 03:03 PM BP: 120/72 mmHg * Patient Location: [facility] HR: 88 * : 1970 (M/d/yyyy) Gender: Male Height: 74 in * Age: 47 yrs Ethnicity: AA Weight: 303 lb * Ordering Physician: Azael Jon * Performed By: Lissy Azevedo * * Reason For Study: CHEST PAIN * BSA: 2.6 m2 * -- Conclusions -- * 1. Normal LV size, mild concentric LVH. * 2. Normal LV systolic function. LVEF 60-65%. No regional wall motion abnormalities. * 3. Normal RV size and function. * 4. No significant valvular pathology. * 5. Compared with prior study on 03/27/2015: No significant changes. Procedure Details * A complete two-dimensional transthoracic echocardiogram was performed (2D, M-mode, Doppler and color flow Doppler). Left Ventricle * The left ventricle is grossly normal size. * There is mild concentric left ventricular hypertrophy. * Ejection Fraction = 60-65%. * No regional wall motion abnormalities noted. Right Ventricle * The right ventricle is grossly normal size. * The right ventricular systolic function is normal as assessed by tricuspid annular plane systolic excursion (TAPSE) (normal >1.5 cm). Atria * The left atrial size is normal. * Right atrial size is normal. * No ASD detected; PFO is not assessed. Mitral Valve * The mitral valve leaflets appear thickened, but open well. * There is no mitral valve stenosis. * There is trace mitral regurgitation. Tricuspid Valve * The tricuspid valve is not well visualized, but is grossly normal. * Significant tricuspid regurgitation is absent. Aortic Valve * The aortic valve opens well. * No hemodynamically significant valvular aortic stenosis. * There is no significant aortic regurgitation. Pulmonic Valve * The pulmonic valve is not well seen, but is grossly normal. * Pulmonic stenosis is absent. * Trace pulmonic valvular regurgitation. Great Vessels * The aortic root and proximal ascending aorta are normal sized. Pericardium/Pleural * There is no pericardial effusion. MMode 2D Measurements and Calculations IVSd 1.3 cm IVSs 1.7 cm LVIDd 4.3 cm LVIDs 2.8 cm LVPWd 1.4 cm LVPWs 2.5 cm IVS/LVPW 0.89 FS 35.2 % EDV(Teich) 82.5 ml ESV(Teich) 29.0 ml EF(Teich) 64.8 % EDV(cubed) 78.9 ml ESV(cubed) 21.5 ml EF(cubed) 72.7 % % IVS thick 34.6 % % LVPW thick 69.9 % LV mass(C)d 222.9 grams LV mass(C)dI 86.0 grams/m\S\2 LV mass(C)s 264.2 grams LV mass(C)sI 101.9 grams/m\S\2 CO(Teich) 4.7 l/min CI(Teich) 1.8 l/min/m\S\2 SV(Teich) 53.5 ml SI(Teich) 20.6 ml/m\S\2 CO(cubed) 5.0 l/min CI(cubed) 1.9 l/min/m\S\2 SV(cubed) 57.4 ml SI(cubed) 22.1 ml/m\S\2 ACS 1.8 cm LA dimension 4.0 cm asc Aorta Diam 2.8 cm LVOT diam 2.3 cm LVOT area 4.2 cm\S\2 LVAd ap4 36.9 cm\S\2 LVLd ap4 8.4 cm EDV(MOD-sp4) 133.0 ml LVAs ap4 22.4 cm\S\2 LVLs ap4 7.2 cm ESV(MOD-sp4) 61.6 ml EF(MOD-sp4) 53.7 % LVAd ap2 23.5 cm\S\2 LVLd ap2 8.0 cm EDV(MOD-sp2) 60.3 ml LVAs ap2 13.9 cm\S\2 LVLs ap2 6.6 cm ESV(MOD-sp2) 27.6 ml EF(MOD-sp2) 54.2 % CO(MOD-sp4) 6.2 l/min CI(MOD-sp4) 2.4 l/min/m\S\2 SV(MOD-sp4) 71.4 ml SI(MOD-sp4) 27.5 ml/m\S\2 CO(MOD-sp2) 2.8 l/min CI(MOD-sp2) 1.1 l/min/m\S\2 SV(MOD-sp2) 32.7 ml SI(MOD-sp2) 12.6 ml/m\S\2 Doppler Measurements and Calculations MV E max siomara 67.5 cm/sec MV A max siomara 58.3 cm/sec MV E/A 1.2 MV dec time 0.17 sec Ao V2 max 108.6 cm/sec Ao max PG 4.7 mmHg Ao max PG (full) 1.7 mmHg TETO(V,A) 3.4 cm\S\2 TETO(V,D) 3.4 cm\S\2 LV V1 max PG 3.0 mmHg LV V1 max 87.1 cm/sec PA V2 max 74.7 cm/sec PA max PG 2.2 mmHg PI end-d siomara 150.7 cm/sec
[2017-07-22] MEDS: SODIUM CHLORIDE 0.9% 1000ML 1,000 ML IV SCH (17:12)
[2017-07-22] MEDS: OXYCODONE HCL IR 5 MG TAB (IMMEDIATE RELEASE) PO PRN (17:14)
[2017-07-22] MEDS: INSULIN ASPART 100 UNITS/ML 3 ML PEN SC SCH ×2 (18:23→21:00)
[2017-07-22 19:24] VITALS: BP 143/87; PULSE 95; TEMP 37; O2SAT 92
[2017-07-22] MEDS: CYCLOBENZAPRINE HCL 10 MG TAB PO PRN (19:41)
[2017-07-22] MEDS: METOPROLOL TARTRATE 25 MG TAB PO SCH (22:16)
[2017-07-22] MEDS: ZOLPIDEM TARTRATE 10 MG TAB PO SCH (22:16)
[2017-07-22] MEDS: ALPRAZOLAM 0.5 MG TAB PO SCH (22:20)
[2017-07-22 22:27] LABS: CKMB/CK RATIO 0.5 (0-3.0)
[2017-07-23] VITALS (10 sets, daily range): BP systolic 105–134; BP diastolic 68–88; PULSE 80–91; TEMP 36.5–36.9; O2SAT 92–97
[2017-07-23] MEDS: SODIUM CHLORIDE 0.9% 1000ML 1,000 ML IV SCH ×3 (02:43→22:38)
[2017-07-23 07:16] LABS: INR 1.2 (0.9-1.1); PARTIAL THROMBOPLASTIN RATIO 1.2; PROTHROMBIN TIME (PATIENT) 12.4 SECONDS (9.0-12.0)
[2017-07-23 07:28] LABS: BUN/CREATININE RATIO 8.8 (10-20); CALCIUM 8.1 mg/dl (8.5-10.1); CREATININE 1.5 mg/dl (0.60-1.40); MAGNESIUM 1.8 mg/dl (1.8-2.4); POTASSIUM 3.5 mmol/L (3.5-5.1)
[2017-07-23 07:41] LABS: HEMATOCRIT 37.9 % (42-52); MEAN CELL VOLUME 86.9 fL (80-100); MEAN CORPUSCULAR HEMOGLOBIN 29.4 pg (25-34); MEAN CORPUSCULAR HGB CONC 33.8 g/dl (32-36); PLATELET COUNT 110 K/uL (130-400); RED BLOOD COUNT 4.36 M/uL (4.7-6.1); WHITE BLOOD COUNT 4.87 K/uL (4.8-10.8)
[2017-07-23 07:42] LABS: BASO % 0.4 %; BASO ABS # 0.02 K/uL (0-0.2); COMPLETE YES; EOS % 2.7 %; IG% 0.2 %; LYMPH % 42.9 %; LYMPH ABS # 2.09 K/uL (1.2-3.4); MONO % 5.1 %; NEUT % 48.7 %; PLT ESTIMATE DECREASED
[2017-07-23 07:46] LABS: CKMB/CK RATIO 0.5 (0-3.0)
[2017-07-23] MEDS ORDERED: METOPROLOL SUCC 50MG EXT REL TAB PO SCH (09:00)
[2017-07-23] MEDS: PANTOprazole SOD 40 MG TAB PO SCH (09:03)
[2017-07-23] MEDS: METOPROLOL TARTRATE 25 MG TAB PO SCH ×2 (09:03→21:13)
[2017-07-23] MEDS: ESCITALOPRAM OXALATE 20 MG TAB PO SCH (09:04)
[2017-07-23] MEDS: ALPRAZOLAM 0.5 MG TAB PO SCH ×3 (09:12→21:19)
[2017-07-23] MEDS: OXYCODONE HCL IR 5 MG TAB (IMMEDIATE RELEASE) PO PRN ×2 (09:12→17:53)
[2017-07-23] MEDS: INSULIN ASPART 100 UNITS/ML 3 ML PEN SC SCH ×4 (09:17→21:16)
[2017-07-23] MEDS: INSULIN GLARGINE SOLOSTAR 100 UNITS/ML 3 ML PEN SQ SCH (09:18)
[2017-07-23] MEDS: CYCLOBENZAPRINE HCL 10 MG TAB PO PRN ×2 (09:19→21:12)
--- NOTE | 2017-07-23 09:42 | History and Physical ---
History & Physical Date & Time of Service: Jul 23, 2017 at 09:23. The patient was seen and examined on 07/22/2017 Chief Complaint: Abnormal Ekg, Transaminitis Primary Care Physician: No Doctor, Assigned History of Present Illness Source: patient, hospital records The patient is a 47-year-old male with a past medical history of pulmonary emboli on chronic Xarelto for 2 years, who presents to the emergency department with nosebleeds and occipital headaches that began about one week ago, occasionally starting in his sleep. His stools have become occasionally dark, and has not noted any bright red blood. He's had no recent trauma. Past Medical/Surgical History Medical Problems: (1) BRIDGETTE (acute kidney injury) Status: Resolved (2) Anxiety Status: Chronic (3) Blood clot in vein Status: Resolved (4) Chest pain Status: Resolved (5) Chest pain Status: Resolved (6) Chest wall pain Status: Resolved (7) CKD (chronic kidney disease), stage III Status: Chronic (8) Costochondritis Status: Chronic (9) Depression Status: Chronic (10) Elevated CK Status: Chronic (11) Elevated CK Status: Resolved (12) Elevated CPK Status: Resolved (13) Essential hypertension Status: Chronic (14) GERD (gastroesophageal reflux disease) Status: Chronic (15) Hemoptysis Status: Resolved (16) History of esophageal ulcer Permanent Comment: on EGD 06/23/2014 Status: Chronic (17) History of pleural effusion Status: Resolved (18) Hx of pulmonary embolus Status: Chronic (19) Hyperglycemia Status: Resolved (20) Hyperlipidemia Status: Chronic (21) Hypertension Status: Chronic (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 (23) Pharyngitis Status: Resolved (24) Pleuritic chest pain Status: Resolved (25) Prediabetes Status: Chronic (26) Substernal chest pain Status: Resolved (27) Suspected pulmonary embolism Status: Resolved Surgical Problems: (1) H/O colonoscopy Status: Chronic (2) H/O esophagogastroduodenoscopy Permanent Comment: [id number]- esophageal ulcer 06/24/2014- bleeding esophageal ulcer 08/29/2014- Grade B reflux esophagitis 11/21/2014- mild-moderate inflammation Status: Chronic (3) History of muscle biopsy Status: Chronic (4) History of rectal surgery Status: Chronic (5) S/P cardiac catheterization Permanent Comment: 2012- normal coronary arteries Status: Chronic Family History Blood clots FH: brain aneurysm MOTHER (mother, age 32) Social History Smoking Status: Never Smoker Smokeless Tobacco Use: No Alcohol Use: none Drug Use: none Marital Status: single Housing status: lives with family Occupational Status: disabled Immunizations History of Influenza Vaccine: Yes Influenza Vaccine Date: Jul 18, 2013 History of Tetanus Vaccine?: 2008 Tetanus Immunization Date: Aug 21, 2009 History of Pneumococcal: No History of Hepatitis B Vaccine: No Multi-Drug Resistant Organisms History of MDRO: No Allergies Coded Allergies: Iodine (Verified Allergy, Severe, THROAT SWELLING, 07/22/17) 02/18/13: patient denies IV contrast allergy Patient has been pre-treated in the past with methylprednisolone and diphenhydramine without incident following IV dye administration. Shellfish (Verified Allergy, Severe, THROAT SWELLING, 07/22/17) Iodinated Diagnostic Agents (Verified Allergy, Unknown, swelling, 07/22/17 ) Plasma, Human (Verified Allergy, Unknown, ANAPHYLAXIS, 07/22/17) Acetaminophen (Verified Adverse Reaction, Unknown, GI ISSUES, 07/22/17) Hydrocodone (Verified Adverse Reaction, Unknown, GI ISSUES, 07/22/17) Home Medications Scheduled Alprazolam (Xanax), 1 MG PO TID Escitalopram (Lexapro), 10 MG PO DAILY Escitalopram Oxalate (Lexapro), 20 MG PO DAILY Insulin Aspart (Novolog), 12 UNITS SQ ACHS Insulin Glargine (Lantus Solostar), 50 UNITS SQ QAM Lisinopril (Lisinopril), 1 TAB PO QAM Metformin Ext Rel (Glucophage Ext Rel), 500 MG PO DAILY Methylphenidate (Ritalin), 20 MG PO BID Metoprolol Succ (Toprol Xl) (Toprol-Xl), 150 MG PO DAILY Pantoprazole (Protonix), 40 MG PO DAILY Rivaroxaban (Xarelto), 20 MG PO DAILY Zolpidem Tartrate (Ambien), 10 MG PO HS Scheduled PRN Cyclobenzaprine Hcl (Flexeril), 10 MG PO TID PRN for SPASMS Oxycodone Ir (Roxicodone Ir), 10 MG PO Q4H PRN for Severe Pain Review of Systems The patient denies chest pain, palpitations, shortness of breath, cough, lower extremity swelling, vision change, hearing change, sore throat, fevers, chills, sweats, weight change, fatigue, nausea, vomiting, diarrhea or constipation, abdominal pain, pelvic pain, blood in urine or stool, dysuria, urinary frequency or urgency, memory loss, rash, imbalance, focal or generalized weakness, numbness or tingling in arms or legs, generalized arthralgias or myalgias, back or neck pain, or night sweats. The review of systems is otherwise negative other than for that already noted above, and at least 10 systems have been reviewed. Physical Exam Vital Signs Date Time Temp Pulse Resp B/P (MAP) Pulse Ox O2 Delivery O2 Flow Rate FiO2 07/23/17 07:56 36.5 80 20 105/68 (80) 94 Room Air 07/23/17 04:00 Room Air 07/23/17 04:00 36.5 83 20 133/72 (92) 94 Room Air 07/23/17 00:24 36.8 89 20 109/72 (84) 93 Room Air 07/23/17 00:05 Room Air 07/22/17 19:24 37.0 95 18 143/87 (105) 92 Room Air 07/22/17 14:56 36.6 85 18 139/96 96 Room Air 07/22/17 13:36 88 18 120/72 99 Room Air 07/22/17 13:30 99 Room Air 07/22/17 12:12 93 16 113/72 96 Room Air 07/22/17 10:45 36.9 102 16 146/97 99 Room Air The patient is awake, well-developed and adequately nourished, alert and oriented 3, normocephalic and atraumatic, lying in bed and in no acute distress. HEENT--PERRL, EOMI, mucous membranes and oropharynx dry. Neck--supple, no JVD or bruits, thyroid normal, trachea midline, no adenopathy. Heart--normal S1 and S2, no extra beats, no murmurs, rubs or gallops. Lungs--clear bilaterally with good air movement, no respiratory distress, no accessory muscle use. Abdomen--normal bowel sounds and soft, nontender and nondistended, no hernias or masses, no organomegaly. Extremities--no cyanosis, clubbing or edema. There are good distal pulses b/l. Dermatologic--normal skin turgor, normal color, warm and dry, no abnormal lymph nodes, no rash. Neurologic--cranial nerves II through XII grossly intact, motor and sensory examination normal. Rheumatologic--normal range of motion, nontender, muscles and joints. Psychiatric--normal affect. Diagnostics Laboratory Results Results Past 24 Hours Test 07/22/17 11:04 07/22/17 13:43 07/22/17 14:54 07/22/17 16:37 Range/Units White Blood Count 6.01 4.8-10.8 K/uL Red Blood Count 4.84 4.7-6.1 M/uL Hemoglobin 14.7 14.0-18.0 g/dL Hematocrit 42.0 42-52 % Mean Corpuscular Volume 86.8 80-100 fL Mean Corpuscular Hemoglobin 30.4 25-34 pg Mean Corpuscular Hemoglobin Concent 35.0 32-36 g/dl Platelet Count 142 130-400 K/uL Mean Platelet Volume 13.7 7.4-10.4 fL Neutrophils (%) (Auto) 62.7 % Lymphocytes (%) (Auto) 29.6 % Monocytes (%) (Auto) 5.3 % Eosinophils (%) (Auto) 1.5 % Basophils (%) (Auto) 0.7 % Neutrophils # (Auto) 3.77 1.4-6.5 K/uL Lymphocytes # (Auto) 1.78 1.2-3.4 K/uL Monocytes # (Auto) 0.32 0.11-0.59 K/uL Eosinophils # (Auto) 0.09 0-0.5 K/uL Basophils # (Auto) 0.04 0-0.2 K/uL RDW Standard Deviation 41.5 36.4-46.3 fL RDW Coefficient of Variation 13.0 11.5-14.5 % Immature Granulocyte % (Auto) 0.2 % Immature Granulocyte # (Auto) 0.01 0.00-0.02 K/uL Platelet Estimate NORMAL Giant Platelets 2+ Prothrombin Time 13.8 9.0-12.0 SECONDS Prothromb Time International Ratio 1.3 0.9-1.1 Activated Partial Thromboplast Time 34.7 21.0-31.0 SECONDS Partial Thromboplastin Ratio 1.3 Sodium Level 130 136-145 mmol/L Potassium Level 4.0 3.5-5.1 mmol/L Chloride Level 93 98-107 mmol/L Carbon Dioxide Level 28 21-32 mmol/L Anion Gap 9.0 3-11 mmol/L Blood Urea Nitrogen 19 7-18 mg/dl Creatinine 2.10 0.60-1.40 mg/dl Est Creatinine Clear Calc Drug Dose 65.6 ml/min Estimated GFR () 42.8 Estimated GFR (Non- 36.9 BUN/Creatinine Ratio 8.9 10-20 Random Glucose 578 70-99 mg/dl Calcium Level 9.4 8.5-10.1 mg/dl Magnesium Level 2.1 1.8-2.4 mg/dl Total Bilirubin 0.7 0.2-1 mg/dl Aspartate Amino Transf (AST/SGOT) 275 15-37 U/L Alanine Aminotransferase (ALT/SGPT) 310 12-78 U/L Alkaline Phosphatase 231 45-117 U/L Troponin I < 0.015 < 0.015 0-0.045 ng/ml Total Protein 9.3 6.4-8.2 gm/dl Albumin 3.9 3.4-5.0 gm/dl Globulin 5.4 2.5-4.0 gm/dl Albumin/Globulin Ratio 0.7 0.9-2 Beta-Hydroxybutyric Acid 1.15 0.2-2.81 mg/dL Hepatitis B Surface Antigen NEG NEG Hepatitis C Antibody NEG NEG Bedside Glucose 298 241 70-99 mg/dl Test 07/22/17 20:47 07/22/17 21:34 07/22/17 22:11 07/23/17 06:46 Range/Units Bedside Glucose 163 133 70-99 mg/dl Total Creatine Kinase 4383 5750 39-308 U/L Creatine Kinase MB 21.7 27.8 0.5-3.6 ng/ml Creatine Kinase MB Ratio 0.5 0.5 0-3.0 Troponin I 0.018 0.021 0-0.045 ng/ml White Blood Count 4.87 4.8-10.8 K/uL Red Blood Count 4.36 4.7-6.1 M/uL Hemoglobin 12.8 14.0-18.0 g/dL Hematocrit 37.9 42-52 % Mean Corpuscular Volume 86.9 80-100 fL Mean Corpuscular Hemoglobin 29.4 25-34 pg Mean Corpuscular Hemoglobin Concent 33.8 32-36 g/dl Platelet Count 110 130-400 K/uL Neutrophils (%) (Auto) 48.7 % Lymphocytes (%) (Auto) 42.9 % Monocytes (%) (Auto) 5.1 % Eosinophils (%) (Auto) 2.7 % Basophils (%) (Auto) 0.4 % Neutrophils # (Auto) 2.37 1.4-6.5 K/uL Lymphocytes # (Auto) 2.09 1.2-3.4 K/uL Monocytes # (Auto) 0.25 0.11-0.59 K/uL Eosinophils # (Auto) 0.13 0-0.5 K/uL Basophils # (Auto) 0.02 0-0.2 K/uL RDW Standard Deviation 42.2 36.4-46.3 fL RDW Coefficient of Variation 13.2 11.5-14.5 % Immature Granulocyte % (Auto) 0.2 % Immature Granulocyte # (Auto) 0.01 0.00-0.02 K/uL Platelet Estimate DECREASED Prothrombin Time 12.4 9.0-12.0 SECONDS Prothromb Time International Ratio 1.2 0.9-1.1 Activated Partial Thromboplast Time 30.8 21.0-31.0 SECONDS Partial Thromboplastin Ratio 1.2 Sodium Level 138 136-145 mmol/L Potassium Level 3.5 3.5-5.1 mmol/L Chloride Level 104 98-107 mmol/L Carbon Dioxide Level 26 21-32 mmol/L Anion Gap 8.0 3-11 mmol/L Blood Urea Nitrogen 13 7-18 mg/dl Creatinine 1.50 0.60-1.40 mg/dl Est Creatinine Clear Calc Drug Dose 91.9 ml/min Estimated GFR () 64.2 Estimated GFR (Non- 55.4 BUN/Creatinine Ratio 8.8 10-20 Random Glucose 271 70-99 mg/dl Calcium Level 8.1 8.5-10.1 mg/dl Magnesium Level 1.8 1.8-2.4 mg/dl Total Bilirubin 0.5 0.2-1 mg/dl Direct Bilirubin 0.2 0-0.2 mg/dl Aspartate Amino Transf (AST/SGOT) 488 15-37 U/L Alanine Aminotransferase (ALT/SGPT) 298 12-78 U/L Alkaline Phosphatase 136 45-117 U/L Total Protein 7.4 6.4-8.2 gm/dl Albumin 3.0 3.4-5.0 gm/dl Diagnostic Radiology Patient Name: LASHANDA GAMEZ JR Unit Number: [id number] Dictated: 07/22/171199 Transcribed: 07/22/171199 [facility] Printed Date/Time: [~ rep prt dt]/[~ rep prt tm] [~ rep ct labl] - [~ rep ct ivnm] [facility] [place] [address] Dictated: 07/22/171199 Transcribed: 07/22/171199 [facility] Printed Date/Time: [~ rep prt dt]/[~ rep prt tm] [~ rep ct labl] - [~ rep ct ivnm] HEAD WITHOUT CONTRAST (CT) CLINICAL HISTORY: 47 years-old Male presenting with On xarelto, spontaneous headache x 4 days.. TECHNIQUE: Multidetector CT imaging of the head was performed without the use of intravenous contrast. IV contrast: None. A dose lowering technique was used consistent with the principles of ALARA (as low as reasonably achievable). COMPARISON: 02/24/2017. CT DOSE (mGy.cm): The estimated cumulative dose is 558.98 mGy.cm. FINDINGS: [employer] Production topogram: Unremarkable. Ventricles and sulci normal in size. Brain parenchyma normal in appearance with preserved conte-white differentiation. No mass effect or midline shift. No hemorrhage or acute territorial infarct. No extra-axial fluid collection. Paranasal sinuses and mastoid air cells clear. Calvarium intact. IMPRESSION: 1. No acute intracranial pathology. Electronically signed by: Ras Day M.D. 07/22/2017 12:03 PM Dictated Date/Time: 07/22/2017 12:00 PM The status of this report is Signed. Draft = Not yet reviewed or approved by Radiologist. Signed = Reviewed and approved by Radiologist. <AttendingPhy></AttendingPhy> <FamilyPhy>No Doctor, Assigned</FamilyPhy> < PrimaryPhy>No Doctor, Assigned</PrimaryPhy> <UnitNumber>[id number]</UnitNumber> <VisitNumber>[id number]</VisitNumber> <PatientName>LASHANDA GAMEZ </ PatientName> <DateOfBirth>1970</DateOfBirth> <Location>[facility]</Location> < ServiceDate>07/22/17</ServiceDate> <MNE>ESINDI</MNE> <OrderingPhy>Richard Domo Aranda PA-C</OrderingPhy> <OrderingPhyMNE>f rep ord dr roa</OrderingPhyMNE> < DictatingPhyMNE>f rep dict dr roa</DictatingPhyMNE> <CCListMNE>f rep ct mne</ CCListMNE> <AdmittingPhyMNE>f pt admit dr roa</AdmittingPhyMNE> <AttendingPhyMNE >f pt attend dr roa</AttendingPhyMNE> <ConsultingPhyMNE>f pt consult dr roa</ConsultingPhyMNE> <FamilyPhyMNE>f pt fam dr roa</FamilyPhyMNE> <OtherPhyMNE>f pt other dr roa</OtherPhyMNE> < PrimaryPhyMNE>f pt prim care dr roa</PrimaryPhyMNE> <ReferringPhyMNE>f pt referring dr roa</ReferringPhyMNE> Patient Name: LASHANDA GAMEZ JR Unit Number: [id number] Dictated: 07/22/171519 Transcribed: 07/22/171519 [facility] Printed Date/Time: [~ rep prt dt]/[~ rep prt tm] [~ rep ct labl] - [~ rep ct ivnm] [facility] [place] [address] Dictated: 07/22/171519 Transcribed: 07/22/171519 [facility] Printed Date/Time: [~ rep prt dt]/[~ rep prt tm] [~ rep ct labl] - [~ rep ct ivnm] [~ rep ct add3]] ABDOMEN CT WITHOUT CONTRAST CT DOSE: 742.77 mGycm HISTORY: abnormal lfts and renal function TECHNIQUE: Multiaxial CT images of the abdomen were performed without contrast. A dose lowering technique was utilized adhering to the principles of ALARA. COMPARISON STUDY: Abdomen and pelvis CT 06/14/2017. FINDINGS: Mild dependent changes seen at the lung bases posteriorly. No suspicious lytic or blastic osseous lesions. Mild thickening of the distal esophagus, unchanged. The visualized loops of bowel show no wall thickening or obstruction. Hepatic steatosis is again noted with a few scattered areas of focal fatty sparing. The unenhanced gallbladder, pancreas, spleen, adrenal glands, and kidneys are unremarkable. No retroperitoneal lymphadenopathy. Stable 9 mm nodule posterior to the right hepatic lobe on image 131. This may contain a few punctate calcifications and is likely benign. The liver remains enlarged at 21 cm in length. IMPRESSION: 1. No significant change compared to the prior study. 2. Mild thickening of the distal esophagus is again noted. 3. Hepatomegaly with fatty change. 4. Stable 9 mm nodule posterior to the right hepatic lobe. This may contain a few punctate calcifications and is therefore likely benign. Electronically signed by: Pete Lawson M.D. 07/22/2017 3:25 PM Dictated Date/Time: 07/22/2017 3:20 PM The status of this report is Signed. Draft = Not yet reviewed or approved by Radiologist. Signed = Reviewed and approved by Radiologist. <AttendingPhy></AttendingPhy> <FamilyPhy>No Doctor, Assigned</FamilyPhy> < PrimaryPhy>No Doctor, Assigned</PrimaryPhy> <UnitNumber>[id number]</UnitNumber> <VisitNumber>[id number]</VisitNumber> <PatientName>LASHANDA GAMEZ JR</ PatientName> <DateOfBirth>1970</DateOfBirth> <Location>[facility]</Location> < ServiceDate>07/22/17</ServiceDate> <MNE>ESINDI</MNE> <OrderingPhy>Azael Jon M.D.</OrderingPhy> <OrderingPhyMNE>f rep ord dr roa</OrderingPhyMNE> < DictatingPhyMNE>f rep dict dr roa</DictatingPhyMNE> <CCListMNE>f rep ct milagrose</ CCListMNE> <AdmittingPhyMNE>f pt admit dr roa</AdmittingPhyMNE> <AttendingPhyMNE >f pt attend dr roa</AttendingPhyMNE> <ConsultingPhyMNE>f pt consult dr roa</ConsultingPhyMNE> <FamilyPhyMNE>f pt fam dr roa</FamilyPhyMNE> <OtherPhyMNE>f pt other dr roa</OtherPhyMNE> < PrimaryPhyMNE>f pt prim care dr roa</PrimaryPhyMNE> <ReferringPhyMNE>f pt referring dr roa</ReferringPhyMNE> EKG EKG shows normal sinus rhythm at 94 bpm, J-point elevation in leads 1 and aVL, V1 and V2, with T-wave inversions in the lateral chest leads. This EKG was discussed with Dr. Moncada who felt that with normal troponin ( was not an acute finding. Impression Assessment and Plan Headache with epistaxis on Xarelto-- Normal CT of the head. Hold Xarelto. No active site of bleeding noted in the ED. He begins to bleed again, we'll consult ENT. Abnormal EKG-- Patient does have some exertional chest pressure as he's tried to begin an exercise program over the past 2 weeks. The patient will be admitted to telemetry for serial cardiac enzymes, cardiac rhythm monitoring and a 2-D echocardiogram with Dopplers. Start aspirin 324 mg by mouth every morning. Start metoprolol tartrate 12.5 mg by mouth twice a day. Normal saline at 75 ML's per hour. His EKG was discussed in detail with Dr. Moncada, who will expedite an echocardiogram to be completed SABA. His blood pressure is low at this time to tolerate any further interventions including Nitropaste. Hold lisinopril. Diabetes mellitus/hyperglycemia-- Patient reports that he drank Gatorade this morning, was likely has caused the significant elevation in his blood sugar this morning. Continue Lantus 50 units subcutaneous every morning. Give Additional regular insulin IV and NovoLog subcutaneous in the ED. Place on Accu-Cheks before meals and at bedtime with NovoLog coverage per scale. Hydrate with IV fluids as above. Acute renal insufficiency/creatinine is 2.10-- Hold lisinopril. Hydrate with normal saline. Repeat BMP and magnesium levels in the a.m. Transaminitis-- Order CT of abdomen and pelvis without contrast to assess liver and kidney abnormalities. Serial laboratories. Suspect fatty liver on the basis of diabetes, hyperlipidemia and obesity. Level of Care Telemetry Advanced Directives Existing Advance Directive: No Existing Living Will: No Existing Power of Systems Navigator: No Resuscitation Status FULL RESUSCITATION VTE Prophylaxis VTE Risk Assessment Done? Y/N: Yes Risk Level: Moderate Given or contraindicated: SCD's
--- NOTE | 2017-07-23 16:19 | Hospitalist Progress Note ---
Hospitalist Progress Note Date of Service Jul 23, 2017. (Digna Tran ., FABIANA-C) Subjective Pt evaluation today including: conversation w/ patient, physical exam, chart review, lab review, review of studies, review of inpatient medication list Pain: 8/10 upper abdominal pain PO Intake: Tolerating PO diet Voiding: no voiding problems The patient states that his nose bleeds have stopped. His headache is also improving. He states that he has intermittent 6/10 sharp mid chest pain but denies any currently. This pain happens with exertion only. In the last 2 weeks, he has had pretty much constant upper abdominal pain. He has not noticed any alleviating or aggravating factors. He currently complains of an 8/ 10 sharp pain, but he looks very comfortable. He has nausea but denies vomiting. The patient denies fevers, chills, sweats, palpitations, claudication , cough, wheezing, shortness of breath, vomiting, dysuria, hematuria, urinary retention, paralysis, weakness, numbness and tingling. Additional Comments: .See HPI for pertinent positives and negatives. All other systems reviewed and negative. (Digna Tran ., PA-C) Objective Vital Signs Date Time Temp Pulse Resp B/P (MAP) Pulse Ox O2 Delivery O2 Flow Rate FiO2 07/23/17 15:25 36.9 89 20 134/88 (103) 92 Room Air 07/23/17 12:00 94 Room Air 07/23/17 11:45 36.6 88 18 124/84 (97) 97 Room Air 07/23/17 08:00 94 Room Air 07/23/17 07:56 36.5 80 20 105/68 (80) 94 Room Air 07/23/17 04:00 Room Air 07/23/17 04:00 36.5 83 20 133/72 (92) 94 Room Air 07/23/17 00:24 36.8 89 20 109/72 (84) 93 Room Air 07/23/17 00:05 Room Air 07/22/17 19:24 37.0 95 18 143/87 (105) 92 Room Air (Digna Tran ., FABIANA-C) Physical Exam Notes: General appearance: +Obese. Well-developed, well-nourished, no apparent distress Head: Normocephalic, atraumatic Eyes: Normal inspection, PERRL, EOMI ENT: Normal ENT inspection, hearing grossly normal, pharynx normal Neck: Supple, no JVD, trachea midline Respiratory/Chest: Lungs clear to auscultation, normal breath sounds, no respiratory distress Cardiovascular: Regular rate & rhythm, no gallop, no murmur Abdomen/GI: +Upper abdominal quadrants TTP. Normal bowel sounds, non-tender, soft Extremities/Musculoskeletal: Normal inspection, no calf tenderness, no pedal edema Neurological/Psych: Alert, normal mood/affect, oriented x 3 Skin: Normal color, warm/dry, no rash (Digna Tran, RADHA) Laboratory Results Last 24 Hours Test 07/22/17 16:37 07/22/17 20:47 07/22/17 21:34 07/22/17 22:11 Bedside Glucose 241 mg/dl 163 mg/dl 133 mg/dl Total Creatine Kinase 4383 U/L Creatine Kinase MB 21.7 ng/ml Creatine Kinase MB Ratio 0.5 Troponin I 0.018 ng/ml Test 07/23/17 06:46 07/23/17 07:43 07/23/17 11:27 White Blood Count 4.87 K/uL Red Blood Count 4.36 M/uL Hemoglobin 12.8 g/dL Hematocrit 37.9 % Mean Corpuscular Volume 86.9 fL Mean Corpuscular Hemoglobin 29.4 pg Mean Corpuscular Hemoglobin Concent 33.8 g/dl Platelet Count 110 K/uL Neutrophils (%) (Auto) 48.7 % Lymphocytes (%) (Auto) 42.9 % Monocytes (%) (Auto) 5.1 % Eosinophils (%) (Auto) 2.7 % Basophils (%) (Auto) 0.4 % Neutrophils # (Auto) 2.37 K/uL Lymphocytes # (Auto) 2.09 K/uL Monocytes # (Auto) 0.25 K/uL Eosinophils # (Auto) 0.13 K/uL Basophils # (Auto) 0.02 K/uL RDW Standard Deviation 42.2 fL RDW Coefficient of Variation 13.2 % Immature Granulocyte % (Auto) 0.2 % Immature Granulocyte # (Auto) 0.01 K/uL Platelet Estimate DECREASED Prothrombin Time 12.4 SECONDS Prothromb Time International Ratio 1.2 Activated Partial Thromboplast Time 30.8 SECONDS Partial Thromboplastin Ratio 1.2 Sodium Level 138 mmol/L Potassium Level 3.5 mmol/L Chloride Level 104 mmol/L Carbon Dioxide Level 26 mmol/L Anion Gap 8.0 mmol/L Blood Urea Nitrogen 13 mg/dl Creatinine 1.50 mg/dl Est Creatinine Clear Calc Drug Dose 91.9 ml/min Estimated GFR () 64.2 Estimated GFR (Non- 55.4 BUN/Creatinine Ratio 8.8 Random Glucose 271 mg/dl Calcium Level 8.1 mg/dl Magnesium Level 1.8 mg/dl Total Bilirubin 0.5 mg/dl Direct Bilirubin 0.2 mg/dl Aspartate Amino Transf (AST/SGOT) 488 U/L Alanine Aminotransferase (ALT/SGPT) 298 U/L Alkaline Phosphatase 136 U/L Total Creatine Kinase 5750 U/L Creatine Kinase MB 27.8 ng/ml Creatine Kinase MB Ratio 0.5 Troponin I 0.021 ng/ml Total Protein 7.4 gm/dl Albumin 3.0 gm/dl Bedside Glucose 253 mg/dl 300 mg/dl (Digna Tran, RADHA) Diagnostic Results Echo Interpretation Summary * Name: LASHANDA GAMEZ JR Study Date: 07/22/2017 03:03 PM BP: 120/72 mmHg * Patient Location: [facility] HR: 88 * : 1970 (M/d/yyyy) Gender: Male Height: 74 in * Age: 47 yrs Ethnicity: AA Weight: 303 lb * Ordering Physician: Azael Jon * Performed By: Lissy Azevedo * * Reason For Study: CHEST PAIN * BSA: 2.6 m2 * -- Conclusions -- * 1. Normal LV size, mild concentric LVH. * 2. Normal LV systolic function. LVEF 60-65%. No regional wall motion abnormalities. * 3. Normal RV size and function. * 4. No significant valvular pathology. * 5. Compared with prior study on 03/27/2015: No significant changes. Procedure Details * A complete two-dimensional transthoracic echocardiogram was performed (2D, M- mode, Doppler and color flow Doppler). Left Ventricle * The left ventricle is grossly normal size. * There is mild concentric left ventricular hypertrophy. * Ejection Fraction = 60-65%. * No regional wall motion abnormalities noted. Right Ventricle * The right ventricle is grossly normal size. * The right ventricular systolic function is normal as assessed by tricuspid annular plane systolic excursion (TAPSE) (normal >1.5 cm). Atria * The left atrial size is normal. * Right atrial size is normal. * No ASD detected; PFO is not assessed. Mitral Valve * The mitral valve leaflets appear thickened, but open well. * There is no mitral valve stenosis. * There is trace mitral regurgitation. Tricuspid Valve * The tricuspid valve is not well visualized, but is grossly normal. * Significant tricuspid regurgitation is absent. Aortic Valve * The aortic valve opens well. * No hemodynamically significant valvular aortic stenosis. * There is no significant aortic regurgitation. Pulmonic Valve * The pulmonic valve is not well seen, but is grossly normal. * Pulmonic stenosis is absent. * Trace pulmonic valvular regurgitation. Great Vessels * The aortic root and proximal ascending aorta are normal sized. Pericardium/Pleural * There is no pericardial effusion. (Digna Tran ., PA-C) Assessment and Plan 47 y/o male with a history of chronic PE on Xarelto, DM II, and HTN who presented to the ED on 07/22 with nosebleeds and headache. Exertional chest pain -Admit to tele. Pt in sinus rhythm with HR 80s-90s -Troponin negative x 3 -CK elevated on admission, increased further to 5750 on 07/23 -Increase NSS to 150 cc/hr -EKG with T wave inversions -Echo shows LVEF of 60-65%, no WMA -Continue ASA, Lopressor 12.5 mg PO BID -Cardiology consulted, appreciate recs BRIDGETTE--improving -Baseline creatinine 1.2-1.4 -IVF as above -Hold lisinopril -Creatinine 2.1 on admission -Creatinine 1.5 on 07/23 Abdominal pain, elevated LFTs -A/P CT on admission stable from previous study. Hepatic nodule likely benign. Pt had liver ultrasound last month showing the hepatic nodule and no GB disease -LFTs continuing to increase -NPO after midnight for HIDA scan Headache with epistaxis on Xarelto--resolved -Normal CT of the head -Bleeding has stopped, resume Xarelto DM II--last HgbA1c 10.6 on 04/16/17 -Hold metformin -Continue Lantus 50 units SC qam -Insulin sliding scale -Check BSGs q ac and qhs -Recheck HgbA1c HTN--stable -Lisinopril held due to BRIDGETTE DVT prophylaxis -Xarelto -MIKE ritchie and SCDs Code Status -Level I, FULL RESUSCITATION STATUS (Digna Tran ., PA-C) I examined patient. I agree with above note. I discussed plan with patient and APC. My exam did not differ from the exam done by the APC. (Naresh Calabrese M.D.)
[2017-07-23] MEDS ORDERED: RIVAROXABAN 20 MG TAB PO ONE (16:30)
--- NOTE | 2017-07-23 18:07 | Cardiology Consultation ---
Cardiology Consultation Date of Consultation: Jul 23, 2017. Requesting Physician: Marc Reason for Consultation: Chest Pain Pt evaluation today including: conversation w/ patient, physical exam, chart review, lab review, review of studies, review of inpatient medication list, conversation w/ attending History of Present Illness The patient is a 47-year-old gentleman without a known history of coronary disease who was admitted to [facility] for symptoms of persistent headache and nose bleeds. The patient is an active individual who was accustomed to routine exercise. He performed a aerobic activity as well as weightlifting. He does have some symptoms when he is active. However, he has not had reduce his exercise regimen recently he does not have limiting symptoms. He does have some discomfort in aches and pains in his muscles. He also reports a sensation of abdominal bloating with activity. This is described primarily as epigastric in nature. His resolve with discontinuation of his activity. He denies precordial pain. He has not had any precordial or chest pain with activity. On occasion he will have some chest discomfort which also involves the back and shoulders. This appears to be primarily pleuritic in nature. He also has some tenderness in his muscles at times. The patient has also been diagnosed with pulmonary embolus in the past. The symptoms surrounding these events are unclear. They do appear to be distinct from symptoms he is experiencing at this time. He does relate diagnosis of a clotting disorder. Claims to have been compliant with his anticoagulation. Past Medical/Surgical History Diabetes mellitus Depression Esophagitis History of gastrointestinal hemorrhage Hypertension Hyperlipidemia Myositis Pulmonary embolism Renal insufficiency Past surgical history Colon surgery Family History Blood clots FH: brain aneurysm MOTHER (mother, age 32) Social History Smoking Status: Never Smoker History of Alcohol Use: Yes (beer-seldom) No premature coronary disease Review of Systems He denies recent gastrointestinal symptoms such as nausea and vomiting. He does have chronic muscle aches and pains. He denies any palpitations or racing heartbeats. He has not had symptoms of dizziness or lightheadedness. He denies any syncopal episodes. Denies orthopnea or paroxysmal nocturnal dyspnea. All Other Systems: Reviewed and Negative Allergies Coded Allergies: Iodine (Verified Allergy, Severe, THROAT SWELLING, 07/22/17) 02/18/13: patient denies IV contrast allergy Patient has been pre-treated in the past with methylprednisolone and diphenhydramine without incident following IV dye administration. Shellfish (Verified Allergy, Severe, THROAT SWELLING, 07/22/17) Iodinated Diagnostic Agents (Verified Allergy, Unknown, swelling, 07/22/17 ) Plasma, Human (Verified Allergy, Unknown, ANAPHYLAXIS, 07/22/17) Acetaminophen (Verified Adverse Reaction, Unknown, GI ISSUES, 07/22/17) Hydrocodone (Verified Adverse Reaction, Unknown, GI ISSUES, 07/22/17) Medications Current Inpatient Medications Medications (Trade) Dose Ordered Sig/Roxie Route Start Time Stop Time Status Last Admin Dose Admin Sodium Chloride 1,000 ml @ 150 mls/hr Q6H40M IV 07/22/17 13:23 08/21/17 13:22 07/23/17 16:12 150 MLS/HR Nitroglycerin (Nitrostat Tab) 0.4 mg UD PRN SL 07/22/17 13:30 08/21/17 13:29 Morphine Sulfate (MoRPHine SULFATE INJ) 2 mg Q30M PRN IV 07/22/17 13:30 08/05/17 13:29 Alprazolam (Xanax Tab) 1 mg TID PO 07/22/17 21:00 08/21/17 20:59 07/23/17 14:22 1 MG Cyclobenzaprine HCl (Flexeril Tab) 10 mg TID PRN PO 07/22/17 13:30 08/21/17 13:29 07/23/17 09:19 10 MG Escitalopram Oxalate (Lexapro Tab) 30 mg DAILY PO 07/23/17 09:00 08/22/17 08:59 07/23/17 09:04 30 MG Insulin Glargine (Lantus Solostar Pen) 50 units QAM SQ 07/23/17 09:00 08/22/17 08:59 07/23/17 09:18 50 UNITS Oxycodone HCl (Roxicodone Immediate Rel Tab) 10 mg Q4H PRN PO 07/22/17 13:30 08/05/17 13:29 07/23/17 17:53 10 MG Pantoprazole Sodium (Protonix Tab) 40 mg DAILY PO 07/23/17 09:00 08/22/17 08:59 07/23/17 09:03 40 MG Zolpidem Tartrate (Ambien Tab) 10 mg HS PO 07/22/17 21:00 08/21/17 20:59 07/22/17 22:16 10 MG Ondansetron HCl (Zofran Inj) 4 mg Q6H PRN IV 07/22/17 13:45 08/21/17 13:44 Insulin Aspart (novoLOG ASPART) SLIDING SCALE If C... ACHS SC 07/22/17 16:30 08/21/17 16:29 07/23/17 17:49 12 UNITS Glucose (Glucose 40% Gel) UD PRN PO 07/22/17 13:45 08/21/17 13:44 Glucose (Glucose Chew Tab) 1 tabs UD PRN PO 07/22/17 13:45 08/21/17 13:44 Dextrose (Dextrose 50% 50ML Syringe) 50 ml UD PRN IV 07/22/17 13:45 08/21/17 13:44 Glucagon (Glucagon Inj) 1 mg UD PRN SQ 07/22/17 13:45 08/21/17 13:44 Metoprolol Tartrate (Lopressor Tab) 12.5 mg BID PO 07/22/17 21:00 08/21/17 20:59 07/23/17 09:03 12.5 MG Rivaroxaban (Xarelto Tab) 20 mg QDD PO 07/24/17 17:00 08/23/17 16:59 Physical Exam Vital Signs Past 12 Hours Date Time Temp Pulse Resp B/P (MAP) Pulse Ox O2 Delivery O2 Flow Rate FiO2 07/23/17 16:08 92 Room Air 07/23/17 15:25 36.9 89 20 134/88 (103) 92 Room Air 07/23/17 12:00 94 Room Air 07/23/17 11:45 36.6 88 18 124/84 (97) 97 Room Air 07/23/17 08:00 94 Room Air 07/23/17 07:56 36.5 80 20 105/68 (80) 94 Room Air The patient is alert and oriented. Mood and affect appeared normal. He answered all questions appropriately. HEENT: Pupils are equal and reactive to light and accommodation. Extraocular movements are intact. The sclerae are anicteric. Neuro: Cranial nerves intact Neck: Patient's neck is supple. He has palpable carotid pulses bilaterally without bruits on auscultation. There is no evidence of jugular venous distention. The thyroid is not enlarged. Lungs: Clear to auscultation bilaterally. He has good air movement without use of accessory muscles. No rales wheezes or rhonchi. Cardiac: Heart demonstrates a regular rate and rhythm. Normal S1 and S2. No murmurs on examination. Pulses: The patient has palpable radial pulses bilaterally that are equal in intensity Extremities: There was no evidence of hypoperfusion. There is no cyanosis or clubbing. There is no edema. Skin: I did not appreciate any rashes on examination today. Data Laboratory Results: Last 24 Hours Test 07/22/17 20:47 07/22/17 21:34 07/22/17 22:11 07/23/17 06:46 Bedside Glucose 163 mg/dl 133 mg/dl Total Creatine Kinase 4383 U/L 5750 U/L Creatine Kinase MB 21.7 ng/ml 27.8 ng/ml Creatine Kinase MB Ratio 0.5 0.5 Troponin I 0.018 ng/ml 0.021 ng/ml White Blood Count 4.87 K/uL Red Blood Count 4.36 M/uL Hemoglobin 12.8 g/dL Hematocrit 37.9 % Mean Corpuscular Volume 86.9 fL Mean Corpuscular Hemoglobin 29.4 pg Mean Corpuscular Hemoglobin Concent 33.8 g/dl Platelet Count 110 K/uL Neutrophils (%) (Auto) 48.7 % Lymphocytes (%) (Auto) 42.9 % Monocytes (%) (Auto) 5.1 % Eosinophils (%) (Auto) 2.7 % Basophils (%) (Auto) 0.4 % Neutrophils # (Auto) 2.37 K/uL Lymphocytes # (Auto) 2.09 K/uL Monocytes # (Auto) 0.25 K/uL Eosinophils # (Auto) 0.13 K/uL Basophils # (Auto) 0.02 K/uL RDW Standard Deviation 42.2 fL RDW Coefficient of Variation 13.2 % Immature Granulocyte % (Auto) 0.2 % Immature Granulocyte # (Auto) 0.01 K/uL Platelet Estimate DECREASED Prothrombin Time 12.4 SECONDS Prothromb Time International Ratio 1.2 Activated Partial Thromboplast Time 30.8 SECONDS Partial Thromboplastin Ratio 1.2 Sodium Level 138 mmol/L Potassium Level 3.5 mmol/L Chloride Level 104 mmol/L Carbon Dioxide Level 26 mmol/L Anion Gap 8.0 mmol/L Blood Urea Nitrogen 13 mg/dl Creatinine 1.50 mg/dl Est Creatinine Clear Calc Drug Dose 91.9 ml/min Estimated GFR () 64.2 Estimated GFR (Non- 55.4 BUN/Creatinine Ratio 8.8 Random Glucose 271 mg/dl Calcium Level 8.1 mg/dl Magnesium Level 1.8 mg/dl Total Bilirubin 0.5 mg/dl Direct Bilirubin 0.2 mg/dl Aspartate Amino Transf (AST/SGOT) 488 U/L Alanine Aminotransferase (ALT/SGPT) 298 U/L Alkaline Phosphatase 136 U/L Total Protein 7.4 gm/dl Albumin 3.0 gm/dl Test 07/23/17 07:43 07/23/17 11:27 07/23/17 16:35 Bedside Glucose 253 mg/dl 300 mg/dl 319 mg/dl Imaging: I reviewed the results of HIDA scan which was negative. I reviewed the results of his head CT and abdominal CT. These are unremarkable with the exception of a liver nodule measured at 9 millimeters. EKG: Serial EKGs were performed and I reviewed the source images. This reveals sinus rhythm with marked ST and T-wave changes. These appear to be stable however. Telemetry reviewed: No significant arrhythmia Echocardiogram performed during this admission was essentially normal. Preserved LV systolic function without significant valvular disease. Assessment & Plan 1. Chest pain: I think more accurate description of the patient's symptoms involved epigastric discomfort and bloating. He has multiple risk factors for coronary artery disease but I do not think his symptoms are anginal in nature. He is very active individual despite his medical history. He is able to exercise routinely without development of any precordial symptoms. At this point would seem reasonable to continue with aggressive risk factor modification. He is on an [place] inhibitor, and beta-tristan. He would definitely benefit from being on at least moderate dose atorvastatin. I suspect that his myositis has limited use of this medication. I think would be important to see him in the clinic. We can continue to follow his symptoms on an outpatient basis and at some point consider perfusion imaging for additional evaluation. 2. Pulmonary embolus: He is not appear to have symptoms related to chronic thromboembolic disease. He has been maintained on Xarelto and this can be continued. 3. Hypertension: Patient appears to have reasonable control on current medical regimen.
[2017-07-23] MEDS: ZOLPIDEM TARTRATE 10 MG TAB PO SCH (21:11)
[2017-07-24] VITALS (8 sets, daily range): BP systolic 126–137; BP diastolic 74–91; PULSE 79–88; TEMP 36.5–37.1; O2SAT 92–95; Ht 188 cm; Wt 141.8 kg
[2017-07-24] MEDS: SODIUM CHLORIDE 0.9% 1000ML 1,000 ML IV SCH ×3 (05:48→18:46)
[2017-07-24 06:00] LABS: INR 1.2 (0.9-1.1); PARTIAL THROMBOPLASTIN RATIO 1.2; PROTHROMBIN TIME (PATIENT) 12.5 SECONDS (9.0-12.0)
[2017-07-24 06:25] LABS: BUN/CREATININE RATIO 8.3 (10-20); CALCIUM 7.8 mg/dl (8.5-10.1); CREATININE 1.3 mg/dl (0.60-1.40); MAGNESIUM 1.9 mg/dl (1.8-2.4); POTASSIUM 4.4 mmol/L (3.5-5.1)
[2017-07-24 06:39] LABS: BETA-HYDROXYBUTYRATE 1.41 mg/dL (0.2-2.81)
[2017-07-24 06:51] LABS: HEMATOCRIT 36.4 % (42-52); MEAN CELL VOLUME 87.1 fL (80-100); MEAN CORPUSCULAR HEMOGLOBIN 28.7 pg (25-34); MEAN PLATELET VOLUME 13.8 fL (7.4-10.4); PLATELET COUNT 101 K/uL (130-400); RED BLOOD COUNT 4.18 M/uL (4.7-6.1); WHITE BLOOD COUNT 4.39 K/uL (4.8-10.8)
[2017-07-24 06:58] LABS: BASO % 0.2 %; BASO ABS # 0.01 K/uL (0-0.2); COMPLETE YES; EOS % 2.7 %; LYMPH % 51.7 %; LYMPH ABS # 2.27 K/uL (1.2-3.4); MONO % 5.7 %; NEUT % 39.7 %; PLT ESTIMATE DECREASED
[2017-07-24] MEDS: INSULIN ASPART 100 UNITS/ML 3 ML PEN SC SCH ×3 (08:05→17:33)
[2017-07-24] MEDS: INSULIN GLARGINE SOLOSTAR 100 UNITS/ML 3 ML PEN SQ SCH (08:06)
[2017-07-24] MEDS: ESCITALOPRAM OXALATE 20 MG TAB PO SCH (09:13)
[2017-07-24] MEDS: METOPROLOL TARTRATE 25 MG TAB PO SCH (09:14)
[2017-07-24] MEDS: PANTOprazole SOD 40 MG TAB PO SCH (09:14)
[2017-07-24] MEDS: CYCLOBENZAPRINE HCL 10 MG TAB PO PRN (09:14)
[2017-07-24] MEDS: OXYCODONE HCL IR 5 MG TAB (IMMEDIATE RELEASE) PO PRN (09:15)
[2017-07-24] MEDS: ALPRAZOLAM 0.5 MG TAB PO SCH ×2 (09:15→13:50)
--- NOTE | 2017-07-24 10:01 | DIAGNOSTIC IMAGING REPORT ---
NUCLEAR MEDICINE HEPATOBILIARY SCAN HISTORY: Generalized abdominal pain, elevated LFTs COMPARISON: Abdomen and pelvis CT 07/22/2017. Hepatobiliary scan 04/10/2017. TECHNIQUE: Immediately following the intravenous administration of 5.6 mCi Tc-99m Choletec, dynamic anterior abdominal imaging was performed. FINDINGS: Uniform hepatic tracer accumulation is shown. Prompt intrahepatic biliary excretion is seen. The gallbladder, common bile duct, and small bowel are all visualized by 50 minutes. This appearance represents the normal sequence of biliary excretion. IMPRESSION: 1. No evidence for cystic duct obstruction. Electronically signed by: Pete Lawson M.D. 07/24/2017 9:59 AM Dictated Date/Time: 07/24/2017 9:58 AM
[2017-07-24 13:30] LABS: ESTIMATED AVERAGE GLUCOSE 292 mg/dl; HA1C FLAG Normal (Normal)
[2017-07-24] MEDS ORDERED: RIVAROXABAN 20 MG TAB PO SCH (17:00)
[2017-07-24] MEDS ORDERED: SODIUM CHLORIDE 0.9% 1000ML 1,000 ML IV ONE (17:15)
[2017-07-24] MEDS ORDERED: PANT40TA PO (19:08)
[2017-07-24] MEDS ORDERED: CYCL10TA6 PO (19:08)
[2017-07-24] MEDS ORDERED: METFTAB PO (19:08)
[2017-07-24] MEDS ORDERED: ESCI10TA17 PO (19:08)
[2017-07-24] MEDS ORDERED: INSDGIPEN SQ (19:08)
[2017-07-24] MEDS ORDERED: NVLG SQ (19:08)
[2017-07-24] MEDS ORDERED: ESCI1TAB18 PO (19:08)
[2017-07-24] MEDS ORDERED: OXYC1TAB3 PO (19:08)
--- NOTE | 2017-07-24 19:12 | Discharge Instructions ---
Discharge Instructions Date of Service Jul 24, 2017. Admission Reason for Admission: Abnormal Ekg, Transaminitis Discharge Discharge Diagnosis / Problem: Rhabdomyolisis Discharge Goals Goal(s): Decrease discomfort, Improve function Activity Recommendations Activity Limitations: as noted below Lifting Limitations: gradually increase as tolerated Exercise/Sports Limitations: until after follow-up appointment May Resume Sexual Activity: when tolerated Shower/Bathe: no limitations Driving or Machine Use: no limitations Do not exercise for a week. Drink plenty of fluids such as water with goal of clear urine (water cleared) Instructions / Follow-Up Instructions / Follow-Up F/U with PCP in 1 week Current Hospital Diet Patient's current hospital diet: AHA Diet (Heart Healthy), Diabetes Type 2 Diet Discharge Diet Recommended Diet: AHA Diet (Heart Healthy), Diabetes Type 2 Diet Pending Studies Studies pending at discharge: no Laboratory Results Hemoglobin A1c Test 07/24/17 05:34 Range/Units Estimated Average Glucose 292 mg/dl Hemoglobin A1c 11.8 H 4.5-5.6 % Medical Emergencies . Who to Call and When: Medical Emergencies: If at any time you feel your situation is an emergency, please call 911 immediately. . Non-Emergent Contact Non-Emergency issues call your: Primary Care Provider Call Non-Emergent contact if: you have any medication questions (increased pain ) . . "Provider Documentation" section prepared by Naresh Calabrese. . VTE Core Measure Inpt VTE Proph given/why not?: SCD's [place] Drug Monitoring Program Search Results: no issues identified
--- NOTE | 2017-08-03 17:57 | Discharge Summary ---
Discharge Summary Date of Service Aug 03, 2017. Discharge Summary Admission Date: Jul 22, 2017 at 13:23 Discharge Date: Jul 24, 2017 Discharge Disposition: Home Principal Diagnosis: Rhabdomyolisis Problems/Secondary Diagnoses: (1) Anxiety Status: Chronic (2) CKD (chronic kidney disease), stage III Status: Chronic (3) Costochondritis Status: Chronic (4) Depression Status: Chronic (5) Elevated CK Status: Chronic (6) Essential hypertension Status: Chronic (7) GERD (gastroesophageal reflux disease) Status: Chronic (8) H/O colonoscopy Status: Chronic (9) H/O esophagogastroduodenoscopy Status: Chronic (10) History of esophageal ulcer Status: Chronic (11) History of muscle biopsy Status: Chronic (12) History of rectal surgery Status: Chronic (13) Hx of pulmonary embolus Status: Chronic (14) Hyperlipidemia Status: Chronic (15) Hypertension Status: Chronic (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 (17) Prediabetes Status: Chronic (18) S/P cardiac catheterization Status: Chronic Immunizations: Have You Had Influenza Vaccine: Yes Influenza Vaccine Date: Jul 18, 2013 History of Tetanus Vaccine?: 2008 Tetanus Immunization Date: Aug 21, 2009 History of Pneumococcal: No History of Hepatitis B Vaccine: No Consultations: Cardiology Consultation Date of Consultation: Jul 23, 2017. Requesting Physician: Marc Reason for Consultation: Chest Pain Pt evaluation today including: conversation w/ patient, physical exam, chart review, lab review, review of studies, review of inpatient medication list, conversation w/ attending History of Present Illness The patient is a 47-year-old gentleman without a known history of coronary disease who was admitted to [facility] for symptoms of persistent headache and nose bleeds. The patient is an active individual who was accustomed to routine exercise. He performed a aerobic activity as well as weightlifting. He does have some symptoms when he is active. However, he has not had reduce his exercise regimen recently he does not have limiting symptoms. He does have some discomfort in aches and pains in his muscles. He also reports a sensation of abdominal bloating with activity. This is described primarily as epigastric in nature. His resolve with discontinuation of his activity. He denies precordial pain. He has not had any precordial or chest pain with activity. On occasion he will have some chest discomfort which also involves the back and shoulders. This appears to be primarily pleuritic in nature. He also has some tenderness in his muscles at times. The patient has also been diagnosed with pulmonary embolus in the past. The symptoms surrounding these events are unclear. They do appear to be distinct from symptoms he is experiencing at this time. He does relate diagnosis of a clotting disorder. Claims to have been compliant with his anticoagulation. Past Medical/Surgical History Diabetes mellitus Depression Esophagitis History of gastrointestinal hemorrhage Hypertension Hyperlipidemia Myositis Pulmonary embolism Renal insufficiency Past surgical history Colon surgery Family History Blood clots FH: brain aneurysm MOTHER (mother, age 32) Social History Smoking Status: Never Smoker History of Alcohol Use: Yes (beer-seldom) No premature coronary disease Review of Systems He denies recent gastrointestinal symptoms such as nausea and vomiting. He does have chronic muscle aches and pains. He denies any palpitations or racing heartbeats. He has not had symptoms of dizziness or lightheadedness. He denies any syncopal episodes. Denies orthopnea or paroxysmal nocturnal dyspnea. All Other Systems: Reviewed and Negative Allergies Coded Allergies: Iodine (Verified Allergy, Severe, THROAT SWELLING, 07/22/17) 02/18/13: patient denies IV contrast allergy Patient has been pre-treated in the past with methylprednisolone and diphenhydramine without incident following IV dye administration. Shellfish (Verified Allergy, Severe, THROAT SWELLING, 07/22/17) Iodinated Diagnostic Agents (Verified Allergy, Unknown, swelling, 07/22/17 ) Plasma, Human (Verified Allergy, Unknown, ANAPHYLAXIS, 07/22/17) Acetaminophen (Verified Adverse Reaction, Unknown, GI ISSUES, 07/22/17) Hydrocodone (Verified Adverse Reaction, Unknown, GI ISSUES, 07/22/17) Medications Current Inpatient Medications Medications (Trade) Dose Ordered Sig/Roxie Route Start Time Stop Time Status Last Admin Dose Admin Sodium Chloride 1,000 ml @ 150 mls/hr Q6H40M IV 07/22/17 13:23 08/21/17 13:22 07/23/17 16:12 150 MLS/HR Nitroglycerin (Nitrostat Tab) 0.4 mg UD PRN SL 07/22/17 13:30 08/21/17 13:29 Morphine Sulfate (MoRPHine SULFATE INJ) 2 mg Q30M PRN IV 07/22/17 13:30 08/05/17 13:29 Alprazolam (Xanax Tab) 1 mg TID PO 07/22/17 21:00 08/21/17 20:59 07/23/17 14:22 1 MG Cyclobenzaprine HCl (Flexeril Tab) 10 mg TID PRN PO 07/22/17 13:30 08/21/17 13:29 07/23/17 09:19 10 MG Escitalopram Oxalate (Lexapro Tab) 30 mg DAILY PO 07/23/17 09:00 08/22/17 08:59 07/23/17 09:04 30 MG Insulin Glargine (Lantus Solostar Pen) 50 units QAM SQ 07/23/17 09:00 08/22/17 08:59 07/23/17 09:18 50 UNITS Oxycodone HCl (Roxicodone Immediate Rel Tab) 10 mg Q4H PRN PO 07/22/17 13:30 08/05/17 13:29 07/23/17 17:53 10 MG Pantoprazole Sodium (Protonix Tab) 40 mg DAILY PO 07/23/17 09:00 08/22/17 08:59 07/23/17 09:03 40 MG Zolpidem Tartrate (Ambien Tab) 10 mg HS PO 07/22/17 21:00 08/21/17 20:59 07/22/17 22:16 10 MG Ondansetron HCl (Zofran Inj) 4 mg Q6H PRN IV 07/22/17 13:45 08/21/17 13:44 Insulin Aspart (novoLOG ASPART) SLIDING SCALE If C... ACHS SC 07/22/17 16:30 08/21/17 16:29 07/23/17 17:49 12 UNITS Glucose (Glucose 40% Gel) UD PRN PO 07/22/17 13:45 08/21/17 13:44 Glucose (Glucose Chew Tab) 1 tabs UD PRN PO 07/22/17 13:45 08/21/17 13:44 Dextrose (Dextrose 50% 50ML Syringe) 50 ml UD PRN IV 07/22/17 13:45 08/21/17 13:44 Glucagon (Glucagon Inj) 1 mg UD PRN SQ 07/22/17 13:45 08/21/17 13:44 Metoprolol Tartrate (Lopressor Tab) 12.5 mg BID PO 07/22/17 21:00 08/21/17 20:59 07/23/17 09:03 12.5 MG Rivaroxaban (Xarelto Tab) 20 mg QDD PO 07/24/17 17:00 08/23/17 16:59 Physical Exam Vital Signs Past 12 Hours Date Time Temp Pulse Resp B/P (MAP) Pulse Ox O2 Delivery O2 Flow Rate FiO2 07/23/17 16:08 92 Room Air 07/23/17 15:25 36.9 89 20 134/88 (103) 92 Room Air 07/23/17 12:00 94 Room Air 07/23/17 11:45 36.6 88 18 124/84 (97) 97 Room Air 07/23/17 08:00 94 Room Air 07/23/17 07:56 36.5 80 20 105/68 (80) 94 Room Air The patient is alert and oriented. Mood and affect appeared normal. He answered all questions appropriately. HEENT: Pupils are equal and reactive to light and accommodation. Extraocular movements are intact. The sclerae are anicteric. Neuro: Cranial nerves intact Neck: Patient's neck is supple. He has palpable carotid pulses bilaterally without bruits on auscultation. There is no evidence of jugular venous distention. The thyroid is not enlarged. Lungs: Clear to auscultation bilaterally. He has good air movement without use of accessory muscles. No rales wheezes or rhonchi. Cardiac: Heart demonstrates a regular rate and rhythm. Normal S1 and S2. No murmurs on examination. Pulses: The patient has palpable radial pulses bilaterally that are equal in intensity Extremities: There was no evidence of hypoperfusion. There is no cyanosis or clubbing. There is no edema. Skin: I did not appreciate any rashes on examination today. Data Laboratory Results: Last 24 Hours Test 07/22/17 20:47 07/22/17 21:34 07/22/17 22:11 07/23/17 06:46 Bedside Glucose 163 mg/dl 133 mg/dl Total Creatine Kinase 4383 U/L 5750 U/L Creatine Kinase MB 21.7 ng/ml 27.8 ng/ml Creatine Kinase MB Ratio 0.5 0.5 Troponin I 0.018 ng/ml 0.021 ng/ml White Blood Count 4.87 K/uL Red Blood Count 4.36 M/uL Hemoglobin 12.8 g/dL Hematocrit 37.9 % Mean Corpuscular Volume 86.9 fL Mean Corpuscular Hemoglobin 29.4 pg Mean Corpuscular Hemoglobin Concent 33.8 g/dl Platelet Count 110 K/uL Neutrophils (%) (Auto) 48.7 % Lymphocytes (%) (Auto) 42.9 % Monocytes (%) (Auto) 5.1 % Eosinophils (%) (Auto) 2.7 % Basophils (%) (Auto) 0.4 % Neutrophils # (Auto) 2.37 K/uL Lymphocytes # (Auto) 2.09 K/uL Monocytes # (Auto) 0.25 K/uL Eosinophils # (Auto) 0.13 K/uL Basophils # (Auto) 0.02 K/uL RDW Standard Deviation 42.2 fL RDW Coefficient of Variation 13.2 % Immature Granulocyte % (Auto) 0.2 % Immature Granulocyte # (Auto) 0.01 K/uL Platelet Estimate DECREASED Prothrombin Time 12.4 SECONDS Prothromb Time International Ratio 1.2 Activated Partial Thromboplast Time 30.8 SECONDS Partial Thromboplastin Ratio 1.2 Sodium Level 138 mmol/L Potassium Level 3.5 mmol/L Chloride Level 104 mmol/L Carbon Dioxide Level 26 mmol/L Anion Gap 8.0 mmol/L Blood Urea Nitrogen 13 mg/dl Creatinine 1.50 mg/dl Est Creatinine Clear Calc Drug Dose 91.9 ml/min Estimated GFR () 64.2 Estimated GFR (Non- 55.4 BUN/Creatinine Ratio 8.8 Random Glucose 271 mg/dl Calcium Level 8.1 mg/dl Magnesium Level 1.8 mg/dl Total Bilirubin 0.5 mg/dl Direct Bilirubin 0.2 mg/dl Aspartate Amino Transf (AST/SGOT) 488 U/L Alanine Aminotransferase (ALT/SGPT) 298 U/L Alkaline Phosphatase 136 U/L Total Protein 7.4 gm/dl Albumin 3.0 gm/dl Test 07/23/17 07:43 07/23/17 11:27 07/23/17 16:35 Bedside Glucose 253 mg/dl 300 mg/dl 319 mg/dl Imaging: I reviewed the results of HIDA scan which was negative. I reviewed the results of his head CT and abdominal CT. These are unremarkable with the exception of a liver nodule measured at 9 millimeters. EKG: Serial EKGs were performed and I reviewed the source images. This reveals sinus rhythm with marked ST and T-wave changes. These appear to be stable however. Telemetry reviewed: No significant arrhythmia Echocardiogram performed during this admission was essentially normal. Preserved LV systolic function without significant valvular disease. Assessment & Plan 1. Chest pain: I think more accurate description of the patient's symptoms involved epigastric discomfort and bloating. He has multiple risk factors for coronary artery disease but I do not think his symptoms are anginal in nature. He is very active individual despite his medical history. He is able to exercise routinely without development of any precordial symptoms. At this point would seem reasonable to continue with aggressive risk factor modification. He is on an [place] inhibitor, and beta-tristan. He would definitely benefit from being on at least moderate dose atorvastatin. I suspect that his myositis has limited use of this medication. I think would be important to see him in the clinic. We can continue to follow his symptoms on an outpatient basis and at some point consider perfusion imaging for additional evaluation. 2. Pulmonary embolus: He is not appear to have symptoms related to chronic thromboembolic disease. He has been maintained on Xarelto and this can be continued. 3. Hypertension: Patient appears to have reasonable control on current medical regimen. <Electronically signed by Delroy López MD> Signed: 07/29/17 0923 Signed: The status of this report is Signed * If report status is Draft, the document has not been finalized by the responsible provider. Medication Reconciliation Continued Medications: Alprazolam (Xanax) 1 Mg Tab 1 MG PO TID, TAB Cyclobenzaprine Hcl (Flexeril) 10 Mg Tab 10 MG PO TID PRN for SPASMS for 3 Days, #9 TAB (This prescription has been renewed) Escitalopram (Lexapro) 10 Mg Tab 10 MG PO DAILY for 30 Days, #30 TAB (This prescription has been renewed) WITH 20MG TAB FOR 30MG DOSE Escitalopram Oxalate (Lexapro) 20 Mg Tab 20 MG PO DAILY for 30 Days, #30 TAB (This prescription has been renewed) WITH 10MG TAB FOR 30MG DOSE Insulin Aspart (Novolog) 100 Units/Ml Inj 12 UNITS SQ ACHS for 7 Days, #1 BTL (This prescription has been renewed) Insulin Glargine (Lantus Solostar) 100 Unit/Ml Inj 50 UNITS SQ QAM for 30 Days, #2 PEN (This prescription has been renewed) Lisinopril (Lisinopril) 20 Mg Tab 1 TAB PO QAM Metformin Ext Rel (Glucophage Ext Rel) 500 Mg Tab 500 MG PO DAILY for 30 Days, #30 TAB (This prescription has been renewed) Methylphenidate (Ritalin) 20 Mg Tab 20 MG PO BID, TAB Metoprolol Succ (Toprol Xl) (Toprol-Xl) 50 Mg Tabcr 150 MG PO DAILY, #30 TAB Oxycodone Ir (Roxicodone Ir) 5 Mg Tab 10 MG PO Q4H PRN for Severe Pain for 3 Days, #24 TAB (This prescription has been renewed) Pantoprazole (Protonix) 40 Mg Tab 40 MG PO DAILY, #30 TAB (This prescription has been renewed) Rivaroxaban (Xarelto) 20 Mg Tab 20 MG PO DAILY, TAB Zolpidem Tartrate (Ambien) 10 Mg Tab 10 MG PO HS, TAB 5 Refills Discharge Exam Review of Systems: Constitutional: No fever, No chills, No sweats Respiratory: No cough, No sputum, No wheezing Cardiovascular: No chest pain, No orthopnea, No PND Abdomen: No pain, No nausea, No vomiting Psychiatric: No depression symptoms, No anhedonism Endocrine: No fatigue Physical Exam: General Appearance: WD/WN, no apparent distress Neck: supple, no adenopathy Respiratory/Chest: chest non-tender, lungs clear, normal breath sounds Cardiovascular: regular rate, rhythm, no edema, no gallop Abdomen / GI: normal bowel sounds, non tender, soft Extremities: normal inspection, no calf tenderness Skin: normal color Lymphatic: no adenopathy Hospital Course History & Physical Date & Time of Service: Jul 23, 2017 at 09:23. The patient was seen and examined on 07/22/2017 Chief Complaint: Abnormal Ekg, Transaminitis Primary Care Physician: No Doctor, Assigned History of Present Illness Source: patient, hospital records The patient is a 47-year-old male with a past medical history of pulmonary emboli on chronic Xarelto for 2 years, who presents to the emergency department with nosebleeds and occipital headaches that began about one week ago, occasionally starting in his sleep. His stools have become occasionally dark, and has not noted any bright red blood. He's had no recent trauma. Past Medical/Surgical History Medical Problems: (1) BRIDGETTE (acute kidney injury) Status: Resolved (2) Anxiety Status: Chronic (3) Blood clot in vein Status: Resolved (4) Chest pain Status: Resolved (5) Chest pain Status: Resolved (6) Chest wall pain Status: Resolved (7) CKD (chronic kidney disease), stage III Status: Chronic (8) Costochondritis Status: Chronic (9) Depression Status: Chronic (10) Elevated CK Status: Chronic (11) Elevated CK Status: Resolved (12) Elevated CPK Status: Resolved (13) Essential hypertension Status: Chronic (14) GERD (gastroesophageal reflux disease) Status: Chronic (15) Hemoptysis Status: Resolved (16) History of esophageal ulcer Permanent Comment: on EGD 06/23/2014 Status: Chronic (17) History of pleural effusion Status: Resolved (18) Hx of pulmonary embolus Status: Chronic (19) Hyperglycemia Status: Resolved (20) Hyperlipidemia Status: Chronic (21) Hypertension Status: Chronic (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 (23) Pharyngitis Status: Resolved (24) Pleuritic chest pain Status: Resolved (25) Prediabetes Status: Chronic (26) Substernal chest pain Status: Resolved (27) Suspected pulmonary embolism Status: Resolved Surgical Problems: (1) H/O colonoscopy Status: Chronic (2) H/O esophagogastroduodenoscopy Permanent Comment: [id number]- esophageal ulcer 06/24/2014- bleeding esophageal ulcer 08/29/2014- Grade B reflux esophagitis 11/21/2014- mild-moderate inflammation Status: Chronic (3) History of muscle biopsy Status: Chronic (4) History of rectal surgery Status: Chronic (5) S/P cardiac catheterization Permanent Comment: 2012- normal coronary arteries Status: Chronic Family History Blood clots FH: brain aneurysm MOTHER (mother, age 32) Social History Smoking Status: Never Smoker Smokeless Tobacco Use: No Alcohol Use: none Drug Use: none Marital Status: single Housing status: lives with family Occupational Status: disabled Immunizations History of Influenza Vaccine: Yes Influenza Vaccine Date: Jul 18, 2013 History of Tetanus Vaccine?: 2008 Tetanus Immunization Date: Aug 21, 2009 History of Pneumococcal: No History of Hepatitis B Vaccine: No Multi-Drug Resistant Organisms History of MDRO: No Allergies Coded Allergies: Iodine (Verified Allergy, Severe, THROAT SWELLING, 07/22/17) 02/18/13: patient denies IV contrast allergy Patient has been pre-treated in the past with methylprednisolone and diphenhydramine without incident following IV dye administration. Shellfish (Verified Allergy, Severe, THROAT SWELLING, 07/22/17) Iodinated Diagnostic Agents (Verified Allergy, Unknown, swelling, 07/22/17 ) Plasma, Human (Verified Allergy, Unknown, ANAPHYLAXIS, 07/22/17) Acetaminophen (Verified Adverse Reaction, Unknown, GI ISSUES, 07/22/17) Hydrocodone (Verified Adverse Reaction, Unknown, GI ISSUES, 07/22/17) Home Medications Scheduled Alprazolam (Xanax), 1 MG PO TID Escitalopram (Lexapro), 10 MG PO DAILY Escitalopram Oxalate (Lexapro), 20 MG PO DAILY Insulin Aspart (Novolog), 12 UNITS SQ ACHS Insulin Glargine (Lantus Solostar), 50 UNITS SQ QAM Lisinopril (Lisinopril), 1 TAB PO QAM Metformin Ext Rel (Glucophage Ext Rel), 500 MG PO DAILY Methylphenidate (Ritalin), 20 MG PO BID Metoprolol Succ (Toprol Xl) (Toprol-Xl), 150 MG PO DAILY Pantoprazole (Protonix), 40 MG PO DAILY Rivaroxaban (Xarelto), 20 MG PO DAILY Zolpidem Tartrate (Ambien), 10 MG PO HS Scheduled PRN Cyclobenzaprine Hcl (Flexeril), 10 MG PO TID PRN for SPASMS Oxycodone Ir (Roxicodone Ir), 10 MG PO Q4H PRN for Severe Pain Review of Systems The patient denies chest pain, palpitations, shortness of breath, cough, lower extremity swelling, vision change, hearing change, sore throat, fevers, chills, sweats, weight change, fatigue, nausea, vomiting, diarrhea or constipation, abdominal pain, pelvic pain, blood in urine or stool, dysuria, urinary frequency or urgency, memory loss, rash, imbalance, focal or generalized weakness, numbness or tingling in arms or legs, generalized arthralgias or myalgias, back or neck pain, or night sweats. The review of systems is otherwise negative other than for that already noted above, and at least 10 systems have been reviewed. Physical Exam Vital Signs Date Time Temp Pulse Resp B/P (MAP) Pulse Ox O2 Delivery O2 Flow Rate FiO2 07/23/17 07:56 36.5 80 20 105/68 (80) 94 Room Air 07/23/17 04:00 Room Air 07/23/17 04:00 36.5 83 20 133/72 (92) 94 Room Air 07/23/17 00:24 36.8 89 20 109/72 (84) 93 Room Air 07/23/17 00:05 Room Air 07/22/17 19:24 37.0 95 18 143/87 (105) 92 Room Air 07/22/17 14:56 36.6 85 18 139/96 96 Room Air 07/22/17 13:36 88 18 120/72 99 Room Air 07/22/17 13:30 99 Room Air 07/22/17 12:12 93 16 113/72 96 Room Air 07/22/17 10:45 36.9 102 16 146/97 99 Room Air The patient is awake, well-developed and adequately nourished, alert and oriented 3, normocephalic and atraumatic, lying in bed and in no acute distress. HEENT--PERRL, EOMI, mucous membranes and oropharynx dry. Neck--supple, no JVD or bruits, thyroid normal, trachea midline, no adenopathy. Heart--normal S1 and S2, no extra beats, no murmurs, rubs or gallops. Lungs--clear bilaterally with good air movement, no respiratory distress, no accessory muscle use. Abdomen--normal bowel sounds and soft, nontender and nondistended, no hernias or masses, no organomegaly. Extremities--no cyanosis, clubbing or edema. There are good distal pulses b/l. Dermatologic--normal skin turgor, normal color, warm and dry, no abnormal lymph nodes, no rash. Neurologic--cranial nerves II through XII grossly intact, motor and sensory examination normal. Rheumatologic--normal range of motion, nontender, muscles and joints. Psychiatric--normal affect. Diagnostics Laboratory Results Results Past 24 Hours Test 07/22/17 11:04 07/22/17 13:43 07/22/17 14:54 07/22/17 16:37 Range/Units White Blood Count 6.01 4.8-10.8 K/uL Red Blood Count 4.84 4.7-6.1 M/uL Hemoglobin 14.7 14.0-18.0 g/dL Hematocrit 42.0 42-52 % Mean Corpuscular Volume 86.8 80-100 fL Mean Corpuscular Hemoglobin 30.4 25-34 pg Mean Corpuscular Hemoglobin Concent 35.0 32-36 g/dl Platelet Count 142 130-400 K/uL Mean Platelet Volume 13.7 7.4-10.4 fL Neutrophils (%) (Auto) 62.7 % Lymphocytes (%) (Auto) 29.6 % Monocytes (%) (Auto) 5.3 % Eosinophils (%) (Auto) 1.5 % Basophils (%) (Auto) 0.7 % Neutrophils # (Auto) 3.77 1.4-6.5 K/uL Lymphocytes # (Auto) 1.78 1.2-3.4 K/uL Monocytes # (Auto) 0.32 0.11-0.59 K/uL Eosinophils # (Auto) 0.09 0-0.5 K/uL Basophils # (Auto) 0.04 0-0.2 K/uL RDW Standard Deviation 41.5 36.4-46.3 fL RDW Coefficient of Variation 13.0 11.5-14.5 % Immature Granulocyte % (Auto) 0.2 % Immature Granulocyte # (Auto) 0.01 0.00-0.02 K/uL Platelet Estimate NORMAL Giant Platelets 2+ Prothrombin Time 13.8 9.0-12.0 SECONDS Prothromb Time International Ratio 1.3 0.9-1.1 Activated Partial Thromboplast Time 34.7 21.0-31.0 SECONDS Partial Thromboplastin Ratio 1.3 Sodium Level 130 136-145 mmol/L Potassium Level 4.0 3.5-5.1 mmol/L Chloride Level 93 98-107 mmol/L Carbon Dioxide Level 28 21-32 mmol/L Anion Gap 9.0 3-11 mmol/L Blood Urea Nitrogen 19 7-18 mg/dl Creatinine 2.10 0.60-1.40 mg/dl Est Creatinine Clear Calc Drug Dose 65.6 ml/min Estimated GFR () 42.8 Estimated GFR (Non- 36.9 BUN/Creatinine Ratio 8.9 10-20 Random Glucose 578 70-99 mg/dl Calcium Level 9.4 8.5-10.1 mg/dl Magnesium Level 2.1 1.8-2.4 mg/dl Total Bilirubin 0.7 0.2-1 mg/dl Aspartate Amino Transf (AST/SGOT) 275 15-37 U/L Alanine Aminotransferase (ALT/SGPT) 310 12-78 U/L Alkaline Phosphatase 231 45-117 U/L Troponin I < 0.015 < 0.015 0-0.045 ng/ml Total Protein 9.3 6.4-8.2 gm/dl Albumin 3.9 3.4-5.0 gm/dl Globulin 5.4 2.5-4.0 gm/dl Albumin/Globulin Ratio 0.7 0.9-2 Beta-Hydroxybutyric Acid 1.15 0.2-2.81 mg/dL Hepatitis B Surface Antigen NEG NEG Hepatitis C Antibody NEG NEG Bedside Glucose 298 241 70-99 mg/dl Test 07/22/17 20:47 07/22/17 21:34 07/22/17 22:11 07/23/17 06:46 Range/Units Bedside Glucose 163 133 70-99 mg/dl Total Creatine Kinase 4383 5750 39-308 U/L Creatine Kinase MB 21.7 27.8 0.5-3.6 ng/ml Creatine Kinase MB Ratio 0.5 0.5 0-3.0 Troponin I 0.018 0.021 0-0.045 ng/ml White Blood Count 4.87 4.8-10.8 K/uL Red Blood Count 4.36 4.7-6.1 M/uL Hemoglobin 12.8 14.0-18.0 g/dL Hematocrit 37.9 42-52 % Mean Corpuscular Volume 86.9 80-100 fL Mean Corpuscular Hemoglobin 29.4 25-34 pg Mean Corpuscular Hemoglobin Concent 33.8 32-36 g/dl Platelet Count 110 130-400 K/uL Neutrophils (%) (Auto) 48.7 % Lymphocytes (%) (Auto) 42.9 % Monocytes (%) (Auto) 5.1 % Eosinophils (%) (Auto) 2.7 % Basophils (%) (Auto) 0.4 % Neutrophils # (Auto) 2.37 1.4-6.5 K/uL Lymphocytes # (Auto) 2.09 1.2-3.4 K/uL Monocytes # (Auto) 0.25 0.11-0.59 K/uL Eosinophils # (Auto) 0.13 0-0.5 K/uL Basophils # (Auto) 0.02 0-0.2 K/uL RDW Standard Deviation 42.2 36.4-46.3 fL RDW Coefficient of Variation 13.2 11.5-14.5 % Immature Granulocyte % (Auto) 0.2 % Immature Granulocyte # (Auto) 0.01 0.00-0.02 K/uL Platelet Estimate DECREASED Prothrombin Time 12.4 9.0-12.0 SECONDS Prothromb Time International Ratio 1.2 0.9-1.1 Activated Partial Thromboplast Time 30.8 21.0-31.0 SECONDS Partial Thromboplastin Ratio 1.2 Sodium Level 138 136-145 mmol/L Potassium Level 3.5 3.5-5.1 mmol/L Chloride Level 104 98-107 mmol/L Carbon Dioxide Level 26 21-32 mmol/L Anion Gap 8.0 3-11 mmol/L Blood Urea Nitrogen 13 7-18 mg/dl Creatinine 1.50 0.60-1.40 mg/dl Est Creatinine Clear Calc Drug Dose 91.9 ml/min Estimated GFR () 64.2 Estimated GFR (Non- 55.4 BUN/Creatinine Ratio 8.8 10-20 Random Glucose 271 70-99 mg/dl Calcium Level 8.1 8.5-10.1 mg/dl Magnesium Level 1.8 1.8-2.4 mg/dl Total Bilirubin 0.5 0.2-1 mg/dl Direct Bilirubin 0.2 0-0.2 mg/dl Aspartate Amino Transf (AST/SGOT) 488 15-37 U/L Alanine Aminotransferase (ALT/SGPT) 298 12-78 U/L Alkaline Phosphatase 136 45-117 U/L Total Protein 7.4 6.4-8.2 gm/dl Albumin 3.0 3.4-5.0 gm/dl Diagnostic Radiology Patient Name: LASHANDA GAMEZ JR Unit Number: [id number] Dictated: [id number]/[id number] Transcribed: 07/22/171199 PBS Printed Date/Time: / - [facility] [place] [address] Dictated: 07/[id number] Transcribed: 07/22/171199 PBS Printed Date/Time: / - HEAD WITHOUT CONTRAST (CT) CLINICAL HISTORY: 47 years-old Male presenting with On xarelto, spontaneous headache x 4 days.. TECHNIQUE: Multidetector CT imaging of the head was performed without the use of intravenous contrast. IV contrast: None. A dose lowering technique was used consistent with the principles of ALARA (as low as reasonably achievable). COMPARISON: 02/24/2017. CT DOSE (mGy.cm): The estimated cumulative dose is 558.98 mGy.cm. FINDINGS: Hairspring Adjuster topogram: Unremarkable. Ventricles and sulci normal in size. Brain parenchyma normal in appearance with preserved conte-white differentiation. No mass effect or midline shift. No hemorrhage or acute territorial infarct. No extra-axial fluid collection. Paranasal sinuses and mastoid air cells clear. Calvarium intact. IMPRESSION: 1. No acute intracranial pathology. Electronically signed by: Ras Day M.D. 07/22/2017 12:03 PM Dictated Date/Time: 07/22/2017 12:00 PM The status of this report is Signed. Draft = Not yet reviewed or approved by Radiologist. Signed = Reviewed and approved by Radiologist. <AttendingPhy></AttendingPhy> <FamilyPhy>No Doctor, Assigned</FamilyPhy> < PrimaryPhy>No Doctor, Assigned</PrimaryPhy> <UnitNumber>[id number]</UnitNumber> <VisitNumber>[id number]</VisitNumber> <PatientName>LASHANDA GAMEZ JR</ PatientName> <DateOfBirth>1970</DateOfBirth> <Location>[facility]</Location> < ServiceDate>07/22/17</ServiceDate> <MNE>ESINDI</MNE> <OrderingPhy>Domo Ramos PA-C</OrderingPhy> <OrderingPhyMNE>f rep ord dr roa</OrderingPhyMNE> < DictatingPhyMNE>f rep dict dr roa</DictatingPhyMNE> <CCListMNE>f rep ct mne</ CCListMNE> <AdmittingPhyMNE>f pt admit dr roa</AdmittingPhyMNE> <AttendingPhyMNE >f pt attend dr roa</AttendingPhyMNE> <ConsultingPhyMNE>f pt consult dr roa</ConsultingPhyMNE> <FamilyPhyMNE>f pt fam dr roa</FamilyPhyMNE> <OtherPhyMNE>f pt other dr roa</OtherPhyMNE> < PrimaryPhyMNE>f pt prim care dr roa</PrimaryPhyMNE> <ReferringPhyMNE>f pt referring dr roa</ReferringPhyMNE> Patient Name: LASHANDA GAMEZ JR Unit Number: [id number] Dictated: 07/22/171519 Transcribed: 07/22/171519 PAJ Printed Date/Time: / - [facility] [place] [address] Dictated: 07/22/171519 Transcribed: 07/22/171519 PAJ Printed Date/Time: / - ] ABDOMEN CT WITHOUT CONTRAST CT DOSE: 742.77 mGycm HISTORY: abnormal lfts and renal function TECHNIQUE: Multiaxial CT images of the abdomen were performed without contrast. A dose lowering technique was utilized adhering to the principles of ALARA. COMPARISON STUDY: Abdomen and pelvis CT 06/14/2017. FINDINGS: Mild dependent changes seen at the lung bases posteriorly. No suspicious lytic or blastic osseous lesions. Mild thickening of the distal esophagus, unchanged. The visualized loops of bowel show no wall thickening or obstruction. Hepatic steatosis is again noted with a few scattered areas of focal fatty sparing. The unenhanced gallbladder, pancreas, spleen, adrenal glands, and kidneys are unremarkable. No retroperitoneal lymphadenopathy. Stable 9 mm nodule posterior to the right hepatic lobe on image 131. This may contain a few punctate calcifications and is likely benign. The liver remains enlarged at 21 cm in length. IMPRESSION: 1. No significant change compared to the prior study. 2. Mild thickening of the distal esophagus is again noted. 3. Hepatomegaly with fatty change. 4. Stable 9 mm nodule posterior to the right hepatic lobe. This may contain a few punctate calcifications and is therefore likely benign. Electronically signed by: Pete Lawson M.D. 07/22/2017 3:25 PM Dictated Date/Time: 07/22/2017 3:20 PM The status of this report is Signed. Draft = Not yet reviewed or approved by Radiologist. Signed = Reviewed and approved by Radiologist. <AttendingPhy></AttendingPhy> <FamilyPhy>No Doctor, Assigned</FamilyPhy> < PrimaryPhy>No Doctor, Assigned</PrimaryPhy> <UnitNumber>[id number]</UnitNumber> <VisitNumber>[id number]</VisitNumber> <PatientName>LASHANDA GAMEZ JR</ PatientName> <DateOfBirth>1970</DateOfBirth> <Location>[facility]</Location> < ServiceDate>07/22/17</ServiceDate> <MNE>ESINDI</MNE> <OrderingPhy>Azael Jon M.D.</OrderingPhy> <OrderingPhyMNE>f rep ord dr roa</OrderingPhyMNE> < DictatingPhyMNE>f rep dict dr roa</DictatingPhyMNE> <CCListMNE>f rep ct janina</ CCListMNE> <AdmittingPhyMNE>f pt admit dr roa</AdmittingPhyMNE> <AttendingPhyMNE >f pt attend dr roa</AttendingPhyMNE> <ConsultingPhyMNE>f pt consult dr roa</ConsultingPhyMNE> <FamilyPhyMNE>f pt fam dr roa</FamilyPhyMNE> <OtherPhyMNE>f pt other dr roa</OtherPhyMNE> < PrimaryPhyMNE>f pt prim care dr roa</PrimaryPhyMNE> <ReferringPhyMNE>f pt referring dr roa</ReferringPhyMNE> EKG EKG shows normal sinus rhythm at 94 bpm, J-point elevation in leads 1 and aVL, V1 and V2, with T-wave inversions in the lateral chest leads. This EKG was discussed with Dr. Moncada who felt that with normal troponin ( was not an acute finding. Impression Assessment and Plan Headache with epistaxis on Xarelto-- Normal CT of the head. Hold Xarelto. No active site of bleeding noted in the ED. He begins to bleed again, we'll consult ENT. Abnormal EKG-- Patient does have some exertional chest pressure as he's tried to begin an exercise program over the past 2 weeks. The patient will be admitted to telemetry for serial cardiac enzymes, cardiac rhythm monitoring and a 2-D echocardiogram with Dopplers. Start aspirin 324 mg by mouth every morning. Start metoprolol tartrate 12.5 mg by mouth twice a day. Normal saline at 75 ML's per hour. His EKG was discussed in detail with Dr. Moncada, who will expedite an echocardiogram to be completed [facility]. His blood pressure is low at this time to tolerate any further interventions including Nitropaste. Hold lisinopril. Diabetes mellitus/hyperglycemia-- Patient reports that he drank Gatorade this morning, was likely has caused the significant elevation in his blood sugar this morning. Continue Lantus 50 units subcutaneous every morning. Give Additional regular insulin IV and NovoLog subcutaneous in the ED. Place on Accu-Cheks before meals and at bedtime with NovoLog coverage per scale. Hydrate with IV fluids as above. Acute renal insufficiency/creatinine is 2.10-- Hold lisinopril. Hydrate with normal saline. Repeat BMP and magnesium levels in the a.m. Transaminitis-- Order CT of abdomen and pelvis without contrast to assess liver and kidney abnormalities. Serial laboratories. Suspect fatty liver on the basis of diabetes, hyperlipidemia and obesity. Level of Care Telemetry Advanced Directives Existing Advance Directive: No Existing Living Will: No Existing Power of Silk Finisher: No Resuscitation Status FULL RESUSCITATION VTE Prophylaxis VTE Risk Assessment Done? Y/N: Yes Risk Level: Moderate Given or contraindicated: SCD's <Electronically signed by Azael Jon M.D.> Signed: 07/23/17 0942 Signed: The status of this report is Signed * If report status is Draft, the document has not been finalized by the responsible provider. Hospitasl Course Patient had elevated CK and LFTs likely from Rhabdomyolisis. This is attributed likely from his dehydration, from not drinking adequate fluids, to his uncontrolled diabetes. Patient received IVFs and his CK peaked at 5,000 and began to improve. Patient however, did not want to stay in the hospital and wanted to leave. I exlained the risks to the patient. But he states that he needs to go home to take care of his dog. I explained that his CK is going down and that CK is not toxic, its the myoglobin and that this has a short half life. owveevr, I would want the patient to recheck his LFTS and CK in 1 week. Patient understood. Below is the AP for other problems. Exertional chest pain -Admit to tele. Pt in sinus rhythm with HR 80s-90s -Troponin negative x 3 -CK elevated on admission, increased further to 5750 on 07/23 -Increase NSS to 150 cc/hr -EKG with T wave inversions -Echo shows LVEF of 60-65%, no WMA -Continue ASA, Lopressor 12.5 mg PO BID -Cardiology consulted, appreciate recs BRIDGETTE--improving Abdominal pain, elevated LFTs -A/P CT on admission stable from previous study. Hepatic nodule likely benign. Pt had liver ultrasound last month showing the hepatic nodule and no GB disease HIDA scan was normal Headache with epistaxis on Xarelto--resolved -Normal CT of the head DM II--last HgbA1c 10.6 on 04/16/17 - HTN--stable -Lisinopril held due to BRIDGETTE DVT prophylaxis -Xarelto -MIKE hose and SCDs Total Time Spent: Greater than 30 minutes This includes examination of the patient, discharge planning, medication reconciliation, and communication with other providers. Discharge Instructions Please refer to the electronic Patient Visit Report (Discharge Instructions) for additional information. Follow-Up F/U with PCP IN 1-2 WEEKS
== END 2017-07-24 19:49 | disposition home or self-care (01) | DRG 558 ==
LOC: C.EDB 10:43 → C.MED 13:23 → ENRESERV 14:32
PROVIDERS: ADMIT Hospitalist; ATTEND Internal Medicine Sports Medicine
DX: M62.82 Rhabdomyolysis (principal); I27.82 Chronic pulmonary embolism; N17.9 Acute kidney failure, unspecified; R04.0 Epistaxis; E86.0 Dehydration; E11.65 Type 2 diabetes mellitus with hyperglycemia; R74.0 Nonspecific elevation of levels of transaminase and lactic acid dehydrogenase [LDH]; I12.9 Hypertensive chronic kidney disease with stage 1 through stage 4 chronic kidney disease, or unspecified chronic kidney disease; E11.22 Type 2 diabetes mellitus with diabetic chronic kidney disease; N18.3 Chronic kidney disease, stage 3 (moderate); F32.9 Major depressive disorder, single episode, unspecified; K21.9 Gastro-esophageal reflux disease without esophagitis; E78.5 Hyperlipidemia, unspecified; E66.9 Obesity, unspecified; Z79.01 Long term (current) use of anticoagulants; Z79.4 Long term (current) use of insulin; Z79.84 Long term (current) use of oral hypoglycemic drugs; Z79.899 Other long term (current) drug therapy

== ENCOUNTER 2017-09-15 10:19 | Inpatient (IN) | payer OTHER ==
[2017-09-15] VITALS (15 sets, daily range): BP systolic 95–134; BP diastolic 60–83; PULSE 77–90; TEMP 36.7–37.1; O2SAT 90–97; BMI 35.4
[~2017-09-15] VITALS: Ht 188 cm; Wt 128.5 kg
[~2017-09-15 10:19] MED LIST changes: -FLUT0.15 NAE; -LISI-461 PO; +LSN20 PO; -METO100T7 PO; +METO50TA7 PO
[2017-09-15] MEDS ORDERED: ONDANSETRON INJ 2 MG/ML 2 ML VIAL IV STA (10:39)
[2017-09-15] MEDS ORDERED: SODIUM CHLORIDE 0.9% 1000ML 1,000 ML IV STA ×2 (10:39→12:49)
[2017-09-15] MEDS ORDERED: FAMOTIDINE 20MG/5ML IV PUSH IV STA (10:39)
--- NOTE | 2017-09-15 11:03 | EMERGENCY ROOM VISIT NOTE ---
History Report prepared by Chad: Wily Rodriguez Under the Supervision of: Dr. Ayaz Baez M.D. First contact with patient: 10:37 Chief Complaint: ABDOMINAL PAIN Stated Complaint: CHEST AND ABDPAIN, EXCESSIVE URINATION/WEIGHT LOSS Nursing Triage Summary: pt reports losing weight in last 2 weeks approx 37 lbs . reports feeling nauseated has been urinating alot. left upper abd pain. History of Present Illness The patient is a 47 year old male who presents to the Emergency Room with complaints of generalized cramping body aches that began a couple of weeks ago. He rates his pain moderate in severity. He has a past medical history of previous PE's and type 2 diabetes. Over this time period, he has been experiencing randomized pains through his body with very frequent urination. He has lost 41 pounds in the past month. He notes that his diet has not changed, and he had been working out 4 times a week. However, he has lost his appetite and has only been working out 2 times a week recently. He denies any fevers, cough, congestion, hematuria, or burning with urination. He is currently nauseated. He is currently on Metformin and Protonics. He has a family history of blood clots as well. He is currently on Xarelto. Source of History: patient Onset: a couple weeks ago Position: other (global) Symptom Intensity: moderate Quality: ache Timing: constant Associated Symptoms: + urinary symptoms (Frequent urination, no burning or hematuria), No fevers, No cough Note: He has lost 41 pounds over the past month. Review of Systems See HPI for pertinent positives and negatives. A total of ten systems were reviewed and were otherwise negative. Past Medical & Surgical Medical Problems: (1) Abdominal pain (2) Abnormal EKG (3) Acute renal failure (4) BRIDGETTE (acute kidney injury) (5) Anxiety (6) Blood clot in vein (7) Chest pain (8) Chest pain (9) Chest wall pain (10) CKD (chronic kidney disease), stage III (11) Costochondritis (12) Depression (13) Diabetes (14) Elevated CK (15) Elevated CK (16) Elevated CPK (17) Essential hypertension (18) Fever and chills (19) GERD (gastroesophageal reflux disease) (20) GI bleed (21) Hemoptysis (22) History of esophageal ulcer (23) History of pleural effusion (24) Hx of pulmonary embolus (25) Hyperglycemia (26) Hyperlipidemia (27) Hypertension (28) Myositis (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 (30) Pharyngitis (31) Pleuritic chest pain (32) Prediabetes (33) Substernal chest pain (34) Suspected pulmonary embolism (35) Transaminitis Surgical Problems: (1) H/O colonoscopy (2) H/O esophagogastroduodenoscopy (3) History of muscle biopsy (4) History of rectal surgery (5) S/P cardiac catheterization Family History Blood clots FH: brain aneurysm MOTHER (mother, age 32) Social History Smoking Status: Never Smoker Alcohol Use: occasionally Drug Use: none Marital Status: single Housing Status: lives alone Occupation Status: disabled Current/Historical Medications Scheduled Alprazolam (Xanax), 1 MG PO TID Escitalopram (Lexapro), 10 MG PO DAILY Escitalopram Oxalate (Lexapro), 20 MG PO DAILY Insulin Aspart (Novolog), 12 UNITS SC AC Insulin Glargine (Lantus Solostar), 50 UNITS SC HS Lisinopril (Lisinopril), 1 TAB PO QAM Metformin Ext Rel (Glucophage Ext Rel), 500 MG PO DAILY Methylphenidate (Ritalin), 20 MG PO BID Metoprolol Succ (Toprol Xl) (Toprol-Xl), 150 MG PO DAILY Pantoprazole (Protonix), 40 MG PO DAILY Rivaroxaban (Xarelto), 20 MG PO DAILY Zolpidem Tartrate (Ambien), 10 MG PO HS Scheduled PRN Cyclobenzaprine Hcl (Flexeril), 10 MG PO TID PRN for SPASMS Oxycodone Ir (Roxicodone Ir), 10 MG PO Q4H PRN for Severe Pain Allergies Coded Allergies: Iodine (Verified Allergy, Severe, THROAT SWELLING, 09/15/17) 02/18/13: patient denies IV contrast allergy Patient has been pre-treated in the past with methylprednisolone and diphenhydramine without incident following IV dye administration. Shellfish (Verified Allergy, Severe, THROAT SWELLING, 09/15/17) Iodinated Diagnostic Agents (Verified Allergy, Unknown, swelling, 09/15/17) Plasma, Human (Verified Allergy, Unknown, ANAPHYLAXIS, 09/15/17) Acetaminophen (Verified Adverse Reaction, Unknown, GI ISSUES, 09/15/17) Hydrocodone (Verified Adverse Reaction, Unknown, GI ISSUES, 09/15/17) Physical Exam Vital Signs Date Time Temp Pulse Resp B/P (MAP) Pulse Ox O2 Delivery O2 Flow Rate FiO2 09/15/17 13:48 78 18 134/77 98 Room Air 09/15/17 13:32 36.7 84 18 134/83 96 Room Air 09/15/17 12:06 81 09/15/17 10:22 36.7 98 18 134/83 96 Room Air Physical Exam GENERAL: Awake, alert, well-appearing, in no distress HENT: Normocephalic, atraumatic. Oropharynx unremarkable. EYES: Normal conjunctiva. Sclera non-icteric. NECK: Supple. No nuchal rigidity. FROM. No JVD. RESPIRATORY: Clear to auscultation. CARDIAC: Regular rate, normal rhythm. Extremities warm and well perfused. Pulses equal. ABDOMEN: Soft, non-distended. No tenderness to palpation. No rebound or guarding. No masses. RECTAL: Deferred. MUSCULOSKELETAL: Chest examination reveals no tenderness. The back is symmetrical on inspection without obvious abnormality. There is no CVA tenderness to palpation. No joint edema. LOWER EXTREMITIES: Calves are equal size bilaterally and non-tender. No edema. No discoloration. NEURO: Normal sensorium. No sensory or motor deficits noted. SKIN: No rash or jaundice noted. Medical Decision & Procedures ER Provider Diagnostic Interpretation: Radiology results as stated below per my review and radiologist interpretation: CHEST ONE VIEW PORTABLE CLINICAL HISTORY: ABDOMINAL PAIN/GI pain COMPARISON STUDY: 2016 FINDINGS: The bones soft tissues and hemidiaphragms are normal. The cardiomediastinal silhouette is normal. The lungs are clear. The pulmonary vasculature is normal. IMPRESSION: Negative chest. The above report was generated using voice recognition software. It may contain grammatical, syntax or spelling errors. Electronically signed by: Michael Cabrera M.D. 09/15/2017 11:10 AM Dictated Date/Time: 09/15/2017 11:10 AM Laboratory Results 09/15/17 11:45 Red Blood Count 4.91, Mean Corpuscular Volume 88.2, Mean Corpuscular Hemoglobin 31.0, Mean Corpuscular Hemoglobin Concent 35.1, Mean Platelet Volume 13.9, Neutrophils (%) (Auto) 64.0, Lymphocytes (%) (Auto) 28.4, Monocytes (%) (Auto) 5.5, Eosinophils (%) (Auto) 1.0, Basophils (%) (Auto) 0.9, Neutrophils # (Auto) 3.70, Lymphocytes # (Auto) 1.64, Monocytes # (Auto) 0.32, Eosinophils # (Auto) 0.06, Basophils # (Auto) 0.05 Test 09/15/17 11:45 09/15/17 12:59 White Blood Count 5.78 K/uL (4.8-10.8) Red Blood Count 4.91 M/uL (4.7-6.1) Hemoglobin 15.2 g/dL (14.0-18.0) Hematocrit 43.3 % (42-52) Mean Corpuscular Volume 88.2 fL (80-100) Mean Corpuscular Hemoglobin 31.0 pg (25-34) Mean Corpuscular Hemoglobin Concent 35.1 g/dl (32-36) Platelet Count 177 K/uL (130-400) Mean Platelet Volume 13.9 fL (7.4-10.4) Neutrophils (%) (Auto) 64.0 % Lymphocytes (%) (Auto) 28.4 % Monocytes (%) (Auto) 5.5 % Eosinophils (%) (Auto) 1.0 % Basophils (%) (Auto) 0.9 % Neutrophils # (Auto) 3.70 K/uL (1.4-6.5) Lymphocytes # (Auto) 1.64 K/uL (1.2-3.4) Monocytes # (Auto) 0.32 K/uL (0.11-0.59) Eosinophils # (Auto) 0.06 K/uL (0-0.5) Basophils # (Auto) 0.05 K/uL (0-0.2) RDW Standard Deviation 44.8 fL (36.4-46.3) RDW Coefficient of Variation 13.8 % (11.5-14.5) Immature Granulocyte % (Auto) 0.2 % Immature Granulocyte # (Auto) 0.01 K/uL (0.00-0.02) Nucleated RBC Absolute Count (auto) 0.02 K/uL (0-0) Nucleated Red Blood Cells % 0.3 % Urine Color YELLOW Urine Appearance CLEAR (CLEAR) Urine pH 5.0 (4.5-7.5) Urine Specific [place] 1.037 (1.000-1.030) Urine Protein NEG (NEG) Urine Glucose (UA) 3+ (NEG) Urine Ketones TRACE (NEG) Urine Occult Blood TRACE (NEG) Urine Nitrite NEG (NEG) Urine Bilirubin NEG (NEG) Urine Urobilinogen NEG (NEG) Urine Leukocyte Esterase NEG (NEG) Urine WBC (Auto) /hpf (0-5) Urine RBC (Auto) /hpf (0-4) Urine Hyaline Casts (Auto) /lpf (0-5) Urine Epithelial Cells (Auto) /lpf (0-5) Urine Bacteria (Auto) (NEG) Urine RBC 0-4 /hpf (0-4) Urine WBC 1-5 /hpf (0-5) Urine Epithelial Cells 0-5 /lpf (0-5) Urine Bacteria NEG (NEG) Osmolality 306 mOsm/kg (280-300) Total Bilirubin 0.9 mg/dl (0.2-1) Direct Bilirubin 0.4 mg/dl (0-0.2) Aspartate Amino Transf (AST/SGOT) 171 U/L (15-37) Alanine Aminotransferase (ALT/SGPT) 254 U/L (12-78) Alkaline Phosphatase 225 U/L (45-117) Total Creatine Kinase 474 U/L (39-308) Troponin I < 0.015 ng/ml (0-0.045) Total Protein 9.8 gm/dl (6.4-8.2) Albumin 4.1 gm/dl (3.4-5.0) Triglycerides Level 503 mg/dl (0-150) Lipase 474 U/L (73-393) Lactic Acid Level 1.3 mmol/L (0.4-2.0) Laboratory results reviewed by me Medications Administered Medications (Trade) Dose Ordered Sig/Roxie Route Start Time Stop Time Status Last Admin Dose Admin Sodium Chloride 1,000 ml @ 999 mls/hr Q1H1M STAT IV 09/15/17 10:39 09/15/17 11:39 DC 09/15/17 12:06 999 MLS/HR Ondansetron HCl (Zofran Inj) 4 mg NOW STAT IV 09/15/17 10:39 09/15/17 10:47 DC 09/15/17 12:07 4 MG Famotidine (Pepcid 20mg Iv Push) 20 mg NOW STAT IV 09/15/17 10:39 09/15/17 10:47 DC 09/15/17 12:06 20 MG Sodium Chloride 1,000 ml @ 125 mls/hr Q8H STAT IV 09/15/17 12:49 09/15/17 16:29 DC 09/15/17 14:42 125 MLS/HR Miscellaneous (Insulin Protocol Hhs Goal Range) 1 ea ONE ONCE N/A 09/15/17 13:00 09/15/17 13:01 DC 09/15/17 14:42 1 EA Insulin Human Regular 3 unit/ Syringe 3 ml @ 1 mls/min TODAY@1400 IV 09/15/17 14:00 09/15/17 16:00 DC 09/15/17 14:38 1 MLS/MIN Insulin Human Regular 250 units/ Sodium Chloride 252.5 ml @ 0 mls/hr TODAY@1400 IV 09/15/17 14:00 09/15/17 16:45 DC 09/15/17 14:34 3.1 MLS/HR ECG Indication: abdominal pain Rate (beats per minute): 86 Rhythm: normal sinus Findings: other (normal axis, convex ST segment in V2 with mild elevation, early repolarization in 1, V5, V6) Comparison ECG Date: 24 Jul 2017 Change: no significant change ED Course 1037: The patient was evaluated in room B4. A complete history and physical exam was performed. 1308: Upon reexamination, the patient was resting. I discussed the test results and treatment plan with him. I discussed the patient's case with Dr. Delacruz of [facility]. The patient will be evaluated for further management. Medical Decision I reviewed the patient's past medical history, medications, and the nursing notes as described above. Differential diagnosis includes but is not limited to: dehydration, electrolyte abnormality, rapid myolysis, metformin induced hyper-lacticemia, and uncontrolled diabetes. The patient is a 47-year-old gentleman with IDDM2 on metformin and insulin, history of PE on Xarelto since emergency Department with generalized body aches for the past couple of weeks per history of present illness. Arrival the patient is in no acute distress, afebrile stable vital signs. Labs notable for elevated glucose to 700s with seated sodium of 116. There is no Agap. However , he does have elevated ketones. Osmolarity is marginally elevated at 306. She also has a mild BRIDGETTE with creatinine to 2.2 which is up from 1.3 last month. Thus, his presentation is likely consistent with an early HHS, and so the patient was treated with IV fluid hydration and insulin drip. Case was discussed with Dr. Delacruz, [facility] hospitalist who will admit the patient for further management. Case was also discussed with Dr. Eid, ICU rural health consultant given the patient will be admitted to ICU for frequent lab draws. Cardiology was consulted on behalf of admitting team for ? of V2 elevation on EKG, which EKG machine read as STEMI. However, concave morphology is similar to prior EKGs. Otherwise patient does have convex earlier report in lead I, V5,V6 that is similar to prior. Given this and negative trop, unlikely to be ACS. Case was d/ w cardiology, Dr. Tam, who will see the patient. Medication Reconcilliation Current Medication List: was personally reviewed by me Blood Pressure Screening Patient's blood pressure: Elevated blood pressure Blood pressure disposition: Elevated BP felt to be situational Consults Time Called: 1305 Consulting Physician: Dr. Delacruz - [facility] Returned Call: 1308 I discussed the patient with him - he will evaluate the patient for further treatment. Impression Primary Impression: Hyperglycemia Additional Impressions: Hyponatremia BRIDGETTE (acute kidney injury) Type 2 diabetes mellitus with hyperosmolar nonketotic hyperglycemia Critical Care I have personally spent greater than 35 minutes of critical care time in the direct management of this patient. This includes bedside care, interpretation of diagnostic studies, and testing, discussion with consultants, patient, and family members, and other required patient management activities. This 35 minutes is in excess of all separately billable procedures. Scribe Attestation The scribe's documentation has been prepared under my direction and personally reviewed by me in its entirety. I confirm that the note above accurately reflects all work, treatment, procedures, and medical decision making performed by me. Departure Information Dispostion Being Evaluated By Hospitalist Referrals No Doctor, Assigned (PCP) Patient Instructions My [facility] Problem Qualifiers
--- NOTE | 2017-09-15 11:12 | DIAGNOSTIC IMAGING REPORT ---
CHEST ONE VIEW PORTABLE CLINICAL HISTORY: ABDOMINAL PAIN/GI pain COMPARISON STUDY: -2016 FINDINGS: The bones soft tissues and hemidiaphragms are normal. The cardiomediastinal silhouette is normal. The lungs are clear. The pulmonary vasculature is normal. IMPRESSION: Negative chest. The above report was generated using voice recognition software. It may contain grammatical, syntax or spelling errors. Electronically signed by: Michael Cabrera M.D. 09/15/2017 11:10 AM Dictated Date/Time: 09/15/2017 11:10 AM
[2017-09-15 12:11] LABS: BASO % 0.9 %; BASO ABS # 0.05 K/uL (0-0.2); COMPLETE YES; HEMATOCRIT 43.3 % (42-52); IG% 0.2 %; LYMPH % 28.4 %; LYMPH ABS # 1.64 K/uL (1.2-3.4); MEAN CELL VOLUME 88.2 fL (80-100); MEAN CORPUSCULAR HGB CONC 35.1 g/dl (32-36); MEAN PLATELET VOLUME 13.9 fL (7.4-10.4); MONO % 5.5 %; PLATELET COUNT 177 K/uL (130-400); RED BLOOD COUNT 4.91 M/uL (4.7-6.1); WHITE BLOOD COUNT 5.78 K/uL (4.8-10.8)
[2017-09-15 12:21] LABS: URINE APPEARANCE CLEAR (CLEAR); URINE BILIRUBIN NEG (NEG); URINE COLOR YELLOW; URINE NITRITE NEG (NEG); URINE SPECIFIC GRAVITY 1.037 (1.000-1.030); UROBILINOGEN NEG (NEG); ZZUR CULT IF INDIC CLEAN CATCH NO
[2017-09-15 12:24] LABS: BUN/CREATININE RATIO 11.5 (10-20); CALCIUM 10.2 mg/dl (8.5-10.1); CREATININE 2.22 mg/dl (0.60-1.40); MAGNESIUM 2.4 mg/dl (1.8-2.4); MANUAL MICROSCOPIC REQUIRED? YES; POTASSIUM 5.3 mmol/L (3.5-5.1); REVIEW REQ? NO
[2017-09-15 12:30] LABS: PHOSPHORUS 3.9 mg/dl (2.5-4.9)
[2017-09-15 12:34] LABS: BETA-HYDROXYBUTYRATE 16.98 mg/dL (0.2-2.81)
[2017-09-15 12:47] LABS: URINE BACTERIA NEG (NEG); URINE RBC 0-4 /hpf (0-4)
[2017-09-15] MEDS ORDERED: HHS GOAL RANGE 250-350 mg/dl ONE ×3 (13:00→15:15)
[2017-09-15] MEDS ORDERED: INSDGIPEN SC (13:16)
[2017-09-15] MEDS ORDERED: NVLG SC (13:16)
[2017-09-15] MEDS ORDERED: INSULIN IV INFUSION PROTOCOL SCH (13:30)
[2017-09-15] MEDS ORDERED: INSULIN HUMAN REGULAR IV BOLUS 3 UNIT in SYRINGE 0 ML IV SCH (14:00)
[2017-09-15] MEDS ORDERED: INSULIN REGULAR 250 UNITS in SODIUM CHLORIDE 0.9% 250ML 250 ML IV SCH (14:00)
[2017-09-15] MEDS ORDERED: SODIUM CHLORIDE 0.9% 1000ML 1,000 ML IV SCH ×2 (14:35→15:09)
[2017-09-15] MEDS ORDERED: INSULIN IV INFUSION PROTOCOL STA ×2 (14:35→15:09)
[2017-09-15] MEDS ORDERED: SEVERE STRESS LEVEL ONE (14:45)
[2017-09-15] MEDS ORDERED: ONDANSETRON INJ 2 MG/ML 2 ML VIAL IV PRN ×2 (14:45→15:15)
[2017-09-15] MEDS ORDERED: DC ALL PREVIOUSLY ORDERED DIABETES MEDS ONE (14:45)
--- NOTE | 2017-09-15 15:14 | Critical Care Consultation ---
Critical Care Consultation Date of Consultation: Sep 15, 2017. Attending Physician: Nubia Reason for Consultation: Hyperglycemic Hyperosmolar Syndrome History of Present Illness Patient is a 47-year-old male with a past medical history of diabetes, hypertension, depression, and multiple PEs with one episode while on Xarelto that presented with abdominal pain, cramping, and nausea. The patient states that he was mowing his lawn this morning and the cramping made him increasingly short of breath, and he was having worsening abdominal pain throughout the day and decided to come to the emergency department. He has been feeling exceedingly worse over the last 2 weeks since being discharged from the hospital for evaluation of elevated sugars and shortness of breath. The patient also reports a 40 pound weight loss since July during his last episode of PEs. The patient states that he takes 50 units of Lantus every night , and is on a sliding scale of 12 units of NovoLog 3 times per day. The patient also takes metformin for his diabetes. The patient states that he usually checks his sugars, but misses a reading here or there. He states that his blood sugars were in the 130s this morning when he checked. He states that the abdominal pain as a bandlike sensation along his upper abdomen and also in the chest. The pain is a 7 out of 10 at its worst. He states that when he lays still he is no longer short of breath and his cramping stops. He is also having significant cramping in his hands and feet. Denies any confusion or any altered mental status. Past Medical/Surgical History Past medical history Diabetes mellitus Depression Esophagitis History of gastrointestinal hemorrhage Hypertension Hyperlipidemia Myositis Pulmonary embolism Renal insufficiency Past surgical history Colon surgery Family History Blood clots FH: brain aneurysm MOTHER (mother, age 32) Social History Smoking Status: Never Smoker Drug Use: none Marital Status: single Housing Status: lives alone Occupation Status: disabled Allergies Coded Allergies: Iodine (Verified Allergy, Severe, THROAT SWELLING, 09/15/17) 02/18/13: patient denies IV contrast allergy Patient has been pre-treated in the past with methylprednisolone and diphenhydramine without incident following IV dye administration. Shellfish (Verified Allergy, Severe, THROAT SWELLING, 09/15/17) Iodinated Diagnostic Agents (Verified Allergy, Unknown, swelling, 09/15/17) Plasma, Human (Verified Allergy, Unknown, ANAPHYLAXIS, 09/15/17) Acetaminophen (Verified Adverse Reaction, Unknown, GI ISSUES, 09/15/17) Hydrocodone (Verified Adverse Reaction, Unknown, GI ISSUES, 09/15/17) Home Medications Scheduled Alprazolam (Xanax), 1 MG PO TID Escitalopram (Lexapro), 10 MG PO DAILY Escitalopram Oxalate (Lexapro), 20 MG PO DAILY Insulin Aspart (Novolog), 12 UNITS SC AC Insulin Glargine (Lantus Solostar), 50 UNITS SC HS Lisinopril (Lisinopril), 1 TAB PO QAM Metformin Ext Rel (Glucophage Ext Rel), 500 MG PO DAILY Methylphenidate (Ritalin), 20 MG PO BID Metoprolol Succ (Toprol Xl) (Toprol-Xl), 150 MG PO DAILY Pantoprazole (Protonix), 40 MG PO DAILY Rivaroxaban (Xarelto), 20 MG PO DAILY Zolpidem Tartrate (Ambien), 10 MG PO HS Scheduled PRN Cyclobenzaprine Hcl (Flexeril), 10 MG PO TID PRN for SPASMS Oxycodone Ir (Roxicodone Ir), 10 MG PO Q4H PRN for Severe Pain Current Inpatient Medications Current Inpatient Medications Medications (Trade) Dose Ordered Sig/Roxie Route Start Time Stop Time Status Last Admin Dose Admin Sodium Chloride 1,000 ml @ 125 mls/hr Q8H STAT IV 09/15/17 12:49 09/15/17 20:48 09/15/17 14:42 125 MLS/HR Insulin Human Regular 3 unit/ Syringe 3 ml @ 1 mls/min TODAY@1400 IV 09/15/17 14:00 09/15/17 16:00 09/15/17 14:38 1 MLS/MIN Insulin Human Regular 250 units/ Sodium Chloride 252.5 ml @ 0 mls/hr TODAY@1400 IV 09/15/17 14:00 09/15/17 23:59 09/15/17 14:34 3.1 MLS/HR Insulin Aspart (novoLOG ASPART) SLIDING SCALE P[facility]S [place] 09/15/17 19:00 10/15/17 18:59 UNV Sodium Chloride 1,000 ml @ 250 mls/hr Q4H IV 09/15/17 14:35 10/15/17 14:34 UNV Miscellaneous Information (Pending D5 1/ 2nss Ivf) 1 ea Q2H N/A 09/15/17 14:45 10/15/17 14:44 UNV Miscellaneous (Insulin Protocol Hhs Goal Range) 1 ea ONE ONCE N/A 09/15/17 14:45 09/15/17 14:46 UNV Insulin Human Regular (Insulin IV Infusion Protocol) 1 ea NOW STAT N/A 09/15/17 14:35 09/15/17 14:36 UNV Miscellaneous (Insulin Protocol Severe Stress) 1 ea ONE ONCE N/A 09/15/17 14:45 09/15/17 14:46 UNV Miscellaneous Information (Dc All Previously Ordered Diabetes Meds) 1 ea ONE ONCE N/A 09/15/17 14:45 09/15/17 14:46 UNV Ondansetron HCl (Zofran Inj) 4 mg Q6H PRN IV 09/15/17 14:45 10/15/17 14:44 UNV Review of Systems Constitutional: + chills, + sweats, + weight loss, + fatigue, No fever Respiratory: No cough, No sputum, No shortness of breath Cardiovascular: + chest pain, No edema, No palpitations Abdomen: + pain, + nausea, No vomiting, No diarrhea, No constipation, No GI bleeding Musculoskeletal: + muscle pain, + problem reported (Cramping), No joint pain Neurologic: + weakness, + numbness/tingling, No paralysis, No vertigo Endocrine: + fatigue, + excessive urination Integumentary: No rash Physical Exam Date Time Temp Pulse Resp B/P (MAP) Pulse Ox O2 Delivery O2 Flow Rate FiO2 09/15/17 13:48 78 18 134/77 98 Room Air 09/15/17 13:32 36.7 84 18 134/83 96 Room Air 09/15/17 12:06 81 09/15/17 10:22 36.7 98 18 134/83 96 Room Air General Appearance: well-appearing, WD/WN, no apparent distress Head: normocephalic, atraumatic Eyes: PERRLA, EOMI, sclerae normal, conjunctivae normal ENT: normal mouth exam, normal throat exam Respiratory: breath sounds normal, clear to auscultation Cardiovasular: regular rate/rhythm, normal S1S2, no M/G/R Abdomen: normal bowel sounds, no rebound, other (Tenderness to palpation in all 4 quadrants, most significant at the LUQ and RUQ) Back: normal inspection, no CVA tenderness Upper Extremities: no edema Lower Extremities: no edema Pulses: radial (R) (2+), radial (L) (2+) Neuro: alert, oriented x 3, normal motor exam Laboratory Results Last 24 Hours Test 09/15/17 11:45 09/15/17 12:59 09/15/17 14:35 09/15/17 14:59 White Blood Count 5.78 K/uL Red Blood Count 4.91 M/uL Hemoglobin 15.2 g/dL Hematocrit 43.3 % Mean Corpuscular Volume 88.2 fL Mean Corpuscular Hemoglobin 31.0 pg Mean Corpuscular Hemoglobin Concent 35.1 g/dl Platelet Count 177 K/uL Mean Platelet Volume 13.9 fL Neutrophils (%) (Auto) 64.0 % Lymphocytes (%) (Auto) 28.4 % Monocytes (%) (Auto) 5.5 % Eosinophils (%) (Auto) 1.0 % Basophils (%) (Auto) 0.9 % Neutrophils # (Auto) 3.70 K/uL Lymphocytes # (Auto) 1.64 K/uL Monocytes # (Auto) 0.32 K/uL Eosinophils # (Auto) 0.06 K/uL Basophils # (Auto) 0.05 K/uL RDW Standard Deviation 44.8 fL RDW Coefficient of Variation 13.8 % Immature Granulocyte % (Auto) 0.2 % Immature Granulocyte # (Auto) 0.01 K/uL Nucleated RBC Absolute Count (auto) 0.02 K/uL Nucleated Red Blood Cells % 0.3 % Urine Color YELLOW Urine Appearance CLEAR Urine pH 5.0 Urine Specific [place] 1.037 Urine Protein NEG Urine Glucose (UA) 3+ Urine Ketones TRACE Urine Occult Blood TRACE Urine Nitrite NEG Urine Bilirubin NEG Urine Urobilinogen NEG Urine Leukocyte Esterase NEG Urine WBC (Auto) /hpf Urine RBC (Auto) /hpf Urine Hyaline Casts (Auto) /lpf Urine Epithelial Cells (Auto) /lpf Urine Bacteria (Auto) Urine RBC 0-4 /hpf Urine WBC 1-5 /hpf Urine Epithelial Cells 0-5 /lpf Urine Bacteria NEG Sodium Level 116 mmol/L Potassium Level 5.3 mmol/L Chloride Level 80 mmol/L Carbon Dioxide Level 26 mmol/L Anion Gap 11.0 mmol/L Blood Urea Nitrogen 26 mg/dl Creatinine 2.22 mg/dl Est Creatinine Clear Calc Drug Dose 59.0 ml/min Estimated GFR () 40.0 Estimated GFR (Non- 34.5 BUN/Creatinine Ratio 11.5 Random Glucose 706 mg/dl Osmolality 306 mOsm/kg Calcium Level 10.2 mg/dl Phosphorus Level 3.9 mg/dl Magnesium Level 2.4 mg/dl Total Bilirubin 0.9 mg/dl Direct Bilirubin 0.4 mg/dl Aspartate Amino Transf (AST/SGOT) 171 U/L Alanine Aminotransferase (ALT/SGPT) 254 U/L Alkaline Phosphatase 225 U/L Total Creatine Kinase 474 U/L Troponin I < 0.015 ng/ml Total Protein 9.8 gm/dl Albumin 4.1 gm/dl Lipase 474 U/L Beta-Hydroxybutyric Acid 16.98 mg/dL Lactic Acid Level 1.3 mmol/L Diagnostic Results BILIARY ABDOMEN LIMITED CLINICAL HISTORY: Elevated LFTs COMPARISON STUDY: CT scan dated 07/22/2017 FINDINGS: The pancreas appears normal as visualized. The liver measures 19.4 cm. The liver is slightly heterogeneous in echotexture. There is increased hepatic echogenicity, nonspecific finding most often seen in hepatic steatosis. There is no ductal dilatation. The common bile duct measures 5 mm in maximal diameter. There is no right-sided hydronephrosis. There is a small amount of sludge in the gallbladder. No shadowing calculi are visualized. IMPRESSION: 1. Increased hepatic echogenicity, a nonspecific finding most often seen in hepatic steatosis 2. No evidence of ductal dilatation 3. Small amount of sludge within the gallbladder. No shadowing calculi are visualized. PORTAL AND HEPATIC VEIN ULTRASOUND DUPLEX EXAMINATION CLINICAL HISTORY: Elevated LFTs. History of pulmonary embolism. Abdominal pain. COMPARISON STUDY: Biliary ultrasound dated 06/13/2017 FINDINGS: Color flow and spectral analysis was performed. The hepatic veins were patent with normal directional flow. The portal veins were patent with normal directional flow. The hepatic artery was patent with a normal waveform with peak systolic velocity of 42 cm/s. The splenic vein was patent with normal directional flow. IMPRESSION: No evidence of portal or hepatic vein thrombosis. Electronically signed by: Parkash Flores M.D. 09/15/2017 4:11 PM Dictated Date/Time: 09/15/2017 4:09 PM Assessment & Plan The patient is a 47-year-old male with a past medical history of diabetes, hypertension, and history of multiple bilateral PEs that presents with nausea, weakness, cramping in the upper and lower extremities, and abdominal pain. He was found in the emergency department to be hyperglycemic (706), hyponatremic ( 116), and an elevated lipase with transaminitis. Neuro: - Cam ICU negative - Alert and oriented 3 - Dilaudid 0.5 mg every 4 hours when necessary for severe pain - Reviewed PDMP and patient currently on almost 16 mg per day of oxycodone CV: - Hypertension: Continue home metoprolol, holding home lisinopril due to acute kidney injury - EKG: Possible ST changes in inferior leads - Consult cardiology - Serial troponins - initial troponin less than 0.015 - Echo: 07/29 - EF 60-65%, No regional wall abnormalities, LVH Resp: - Chest x-ray: No acute cardiopulmonary abnormalities - Satting 98% on room air GI: - Transaminitis: D Bili - 0.4, AST -171, ALT - 254, Alk Phos - 225 - Lipase 474 - Portal and Hepatic Vein Duplex US: No sign of thrombosis - Triglycerides ordered - Acute Hepatitis Panel Ordered - RUQ US ordered Renal: - BRIDGETTE --> Cr 2.22 (Baseline 1.3) - IV - Normosol 250 mls/hr - Hold Nephrotoxic Medications - Hypovolemia with dehydration (BUN 26), Hyperkalemia, and Hyponatremia - Corrected sodium of 131 (116 on BMP) - BMP q6h x 4 Heme: - History of multiple PEs - Xarelto 20mg PO daily Endocrine: - Diabetic Ketoacidosis - Received Insulin bolus in the ED - Insulin drip using bolus of 3.1 with rate of 3.1 - Beta-Hydroxybutyric Acid of 16.98 DVT Prophylaxis: - Xarelto GI Prophylaxis: - Protonix Code Status: - Full Resuscitation Lines: - 1 peripheral IV currently Resident Physician Supervision Note: Dr. Restrepo was resident physician during care of patient. I separately evaluated patient and did history and exam. I discussed the case with the resident and generally agree with the findings and plan. Patient with diabetic ketoacidosis who is improving with an insulin infusion, he is experiencing hypovolemic hyponatremia, his curve corrected sodium equates to approximately 131. He'll be supplementing his potassium given the insulin infusion there has been significant improvement in his beta hydroxybutyrate and mild improvement in his acute kidney injury. Given his transaminitis and history of extensive venous thromboembolism we will obtain an ultrasound to exclude portal venous thrombus and further elucidate his biliary tree. His hepatitis panel is unremarkable at this point. He has hypertriglyceridemia which may be contributing to hepatic steatosis. Will likely need lifestyle modification and possibly statin medication. I reviewed his [employer], he is on regular oxycodone, Ambien, methylphenidate, and Xanax. I am concerned about the potential habit-forming qualities of these medications. I have personally spent 50 minutes of critical care time in the direct management of this patient. This is a life/limb threatening event. This includes time spent evaluating patient, direct bedside care, chart review, placing orders, interpretation of diagnostic studies, discussion with consultants, patient, and family members, as well as other required patient management activities. This time is exclusive of all separately billable procedures, and teaching time and separate from and in addition to any other critical care service time. Documented By: Darren Eid DO Resident Tracking Resident Involvement: Resident Care Provided Care Provided: Adult Hospital Medicine
[2017-09-15] MEDS ORDERED: MAGNESIUM HYDROXIDE SUSP 30 ML UDC PO PRN (15:15)
[2017-09-15] MEDS ORDERED: ALUMINUM/MAGNESIUM/SIMETH (MAALOX MAX) 30 ML UDC PO PRN (15:15)
[2017-09-15] MEDS ORDERED: ICU PROTOCOL FOR HYPERGLYCEMIA PRN (15:15)
[2017-09-15] MEDS ORDERED: OXYCODONE HCL IR 5 MG TAB (IMMEDIATE RELEASE) PO PRN (15:30)
--- NOTE | 2017-09-15 15:49 | History and Physical ---
History & Physical Date & Time of Service: Sep 15, 2017 at 15:27 Chief Complaint: Chest And Abdpain, Excessive Urination/Weight Loss Primary Care Physician: Edgardo Azevedo D.O. History of Present Illness Source: patient, clinic records, hospital records This is a 47 y/o male with a history of uncontrolled DM II, HTN, hypertriglyceridemia, CKD stage III, chronic PE, anxiety/depression, and GERD who presented to the ED on 09/15 with generalized cramping pain, excessive urination and unintentional weight loss. The patient states that he has lost about 41 pounds over the last month unintentionally. He complains of decreased appetite and increased fatigue. He states he has had ongoing generalized cramping pain diffusely over his body, up to a 7/10 in severity, that has been going on for weeks. This pain is exacerbated by certain movements and is sometimes accompanied by diaphoresis. The pain is sometimes in his chest and abdomen, but is really all over his body. The patient also complains of nausea but denies any vomiting. He states he has had excessive urination, going 10-15 times at night, as well as increased thirst. He also complains of night chills for the last several weeks. The patient denies fevers, palpitations, claudication, cough, wheezing, shortness of breath, vomiting, dysuria, hematuria , urinary retention, paralysis, weakness, numbness and tingling. Past Medical/Surgical History Medical Problems: (1) BRIDGETTE (acute kidney injury) Status: Resolved (2) Anxiety Status: Chronic (3) Blood clot in vein Status: Resolved (4) Chest pain Status: Resolved (5) Chest pain Status: Resolved (6) Chest wall pain Status: Resolved (7) CKD (chronic kidney disease), stage III Status: Chronic (8) Costochondritis Status: Chronic (9) Depression Status: Chronic (10) Elevated CK Status: Chronic (11) Elevated CK Status: Resolved (12) Elevated CPK Status: Resolved (13) Essential hypertension Status: Chronic (14) GERD (gastroesophageal reflux disease) Status: Chronic (15) Hemoptysis Status: Resolved (16) History of esophageal ulcer Permanent Comment: on EGD 06/23/2014 Status: Chronic (17) History of pleural effusion Status: Resolved (18) Hx of pulmonary embolus Status: Chronic (19) Hyperglycemia Status: Resolved (20) Hyperlipidemia Status: Chronic (21) Hypertension Status: Chronic (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 (23) Pharyngitis Status: Resolved (24) Pleuritic chest pain Status: Resolved (25) Prediabetes Status: Chronic (26) Substernal chest pain Status: Resolved (27) Suspected pulmonary embolism Status: Resolved DM II Hypertriglyceridemia Surgical Problems: (1) H/O colonoscopy Status: Chronic (2) H/O esophagogastroduodenoscopy Permanent Comment: [id number]- esophageal ulcer 06/24/2014- bleeding esophageal ulcer 08/29/2014- Grade B reflux esophagitis 11/21/2014- mild-moderate inflammation Status: Chronic (3) History of muscle biopsy Status: Chronic (4) History of rectal surgery Status: Chronic (5) S/P cardiac catheterization Permanent Comment: 2012- normal coronary arteries Status: Chronic Family History Blood clots FH: brain aneurysm MOTHER (mother, age 32) Social History Smoking Status: Never Smoker Smokeless Tobacco Use: No Alcohol Use: none Drug Use: none Marital Status: single Housing status: lives alone Occupational Status: disabled Immunizations History of Influenza Vaccine: Yes Influenza Vaccine Date: Jul 18, 2013 History of Tetanus Vaccine?: 2008 Tetanus Immunization Date: Aug 21, 2009 History of Pneumococcal: No History of Hepatitis B Vaccine: No Multi-Drug Resistant Organisms History of MDRO: No Allergies Coded Allergies: Iodine (Verified Allergy, Severe, THROAT SWELLING, 09/15/17) 02/18/13: patient denies IV contrast allergy Patient has been pre-treated in the past with methylprednisolone and diphenhydramine without incident following IV dye administration. Shellfish (Verified Allergy, Severe, THROAT SWELLING, 09/15/17) Iodinated Diagnostic Agents (Verified Allergy, Unknown, swelling, 09/15/17) Plasma, Human (Verified Allergy, Unknown, ANAPHYLAXIS, 09/15/17) Acetaminophen (Verified Adverse Reaction, Unknown, GI ISSUES, 09/15/17) Hydrocodone (Verified Adverse Reaction, Unknown, GI ISSUES, 09/15/17) Home Medications Scheduled Alprazolam (Xanax), 1 MG PO TID Escitalopram (Lexapro), 10 MG PO DAILY Escitalopram Oxalate (Lexapro), 20 MG PO DAILY Insulin Aspart (Novolog), 12 UNITS SC AC Insulin Glargine (Lantus Solostar), 50 UNITS SC HS Lisinopril (Lisinopril), 1 TAB PO QAM Metformin Ext Rel (Glucophage Ext Rel), 500 MG PO DAILY Methylphenidate (Ritalin), 20 MG PO BID Metoprolol Succ (Toprol Xl) (Toprol-Xl), 150 MG PO DAILY Pantoprazole (Protonix), 40 MG PO DAILY Rivaroxaban (Xarelto), 20 MG PO DAILY Zolpidem Tartrate (Ambien), 10 MG PO HS Scheduled PRN Cyclobenzaprine Hcl (Flexeril), 10 MG PO TID PRN for SPASMS Oxycodone Ir (Roxicodone Ir), 10 MG PO Q4H PRN for Severe Pain Review of Systems Constitutional: +Chills at night, intermittent sweats. No fever Eyes: No worsening of vision, No eye pain, No diplopia ENT: No hearing loss, No nasal symptoms, No trouble swallowing Respiratory: No cough, No wheezing, No shortness of breath Cardiovascular: +Chest pain. No claudication, No palpitations Abdomen: +Abdominal pain, nausea. No vomiting Musculoskeletal: +Diffuse cramping pain. No joint pain, No swelling Genitourinary - Male: +Increased urinary frequency. No dysuria, No urinary retention, No hematuria Neurologic: No paralysis, No weakness, No numbness/tingling Integumentary: No rash, No itch, No color change Physical Exam Vital Signs Date Time Temp Pulse Resp B/P (MAP) Pulse Ox O2 Delivery O2 Flow Rate FiO2 09/15/17 13:48 78 18 134/77 98 Room Air 09/15/17 13:32 36.7 84 18 134/83 96 Room Air 09/15/17 12:06 81 09/15/17 10:22 36.7 98 18 134/83 96 Room Air General appearance: +Obese. Well-developed, well-nourished, no apparent distress Head: Normocephalic, atraumatic Eyes: Normal inspection, PERRL, EOMI ENT: Normal ENT inspection, hearing grossly normal, pharynx normal Neck: Supple, no JVD, trachea midline Respiratory/Chest: +Chest pain reproducible with palpation. Lungs clear to auscultation, normal breath sounds, no respiratory distress Cardiovascular: Regular rate & rhythm, no gallop, no murmur Abdomen/GI: +Diffuse tenderness. Normal bowel sounds, soft Extremities/Musculoskeletal: Normal inspection, no calf tenderness, no pedal edema Neurological/Psych: Alert, normal mood/affect, oriented x 3 Skin: Normal color, warm/dry, no rash Diagnostics Laboratory Results Results Past 24 Hours Test 09/15/17 11:45 09/15/17 12:59 09/15/17 14:35 09/15/17 14:59 Range/Units White Blood Count 5.78 4.8-10.8 K/uL Red Blood Count 4.91 4.7-6.1 M/uL Hemoglobin 15.2 14.0-18.0 g/dL Hematocrit 43.3 42-52 % Mean Corpuscular Volume 88.2 80-100 fL Mean Corpuscular Hemoglobin 31.0 25-34 pg Mean Corpuscular Hemoglobin Concent 35.1 32-36 g/dl Platelet Count 177 130-400 K/uL Mean Platelet Volume 13.9 7.4-10.4 fL Neutrophils (%) (Auto) 64.0 % Lymphocytes (%) (Auto) 28.4 % Monocytes (%) (Auto) 5.5 % Eosinophils (%) (Auto) 1.0 % Basophils (%) (Auto) 0.9 % Neutrophils # (Auto) 3.70 1.4-6.5 K/uL Lymphocytes # (Auto) 1.64 1.2-3.4 K/uL Monocytes # (Auto) 0.32 0.11-0.59 K/uL Eosinophils # (Auto) 0.06 0-0.5 K/uL Basophils # (Auto) 0.05 0-0.2 K/uL RDW Standard Deviation 44.8 36.4-46.3 fL RDW Coefficient of Variation 13.8 11.5-14.5 % Immature Granulocyte % (Auto) 0.2 % Immature Granulocyte # (Auto) 0.01 0.00-0.02 K/uL Nucleated RBC Absolute Count (auto) 0.02 0-0 K/uL Nucleated Red Blood Cells % 0.3 % Urine Color YELLOW Urine Appearance CLEAR CLEAR Urine pH 5.0 4.5-7.5 Urine Specific [place] 1.037 1.000-1.030 Urine Protein NEG NEG Urine Glucose (UA) 3+ NEG Urine Ketones TRACE NEG Urine Occult Blood TRACE NEG Urine Nitrite NEG NEG Urine Bilirubin NEG NEG Urine Urobilinogen NEG NEG Urine Leukocyte Esterase NEG NEG Urine WBC (Auto) 0-5 /hpf Urine RBC (Auto) 0-4 /hpf Urine Hyaline Casts (Auto) 0-5 /lpf Urine Epithelial Cells (Auto) 0-5 /lpf Urine Bacteria (Auto) NEG Urine RBC 0-4 0-4 /hpf Urine WBC 1-5 0-5 /hpf Urine Epithelial Cells 0-5 0-5 /lpf Urine Bacteria NEG NEG Sodium Level 116 136-145 mmol/L Potassium Level 5.3 3.5-5.1 mmol/L Chloride Level 80 98-107 mmol/L Carbon Dioxide Level 26 21-32 mmol/L Anion Gap 11.0 3-11 mmol/L Blood Urea Nitrogen 26 7-18 mg/dl Creatinine 2.22 0.60-1.40 mg/dl Est Creatinine Clear Calc Drug Dose 59.0 ml/min Estimated GFR () 40.0 Estimated GFR (Non- 34.5 BUN/Creatinine Ratio 11.5 10-20 Random Glucose 706 70-99 mg/dl Osmolality 306 280-300 mOsm/kg Calcium Level 10.2 8.5-10.1 mg/dl Phosphorus Level 3.9 2.5-4.9 mg/dl Magnesium Level 2.4 1.8-2.4 mg/dl Total Bilirubin 0.9 0.2-1 mg/dl Direct Bilirubin 0.4 0-0.2 mg/dl Aspartate Amino Transf (AST/SGOT) 171 15-37 U/L Alanine Aminotransferase (ALT/SGPT) 254 12-78 U/L Alkaline Phosphatase 225 45-117 U/L Total Creatine Kinase 474 39-308 U/L Troponin I < 0.015 0-0.045 ng/ml Total Protein 9.8 6.4-8.2 gm/dl Albumin 4.1 3.4-5.0 gm/dl Lipase 474 73-393 U/L Beta-Hydroxybutyric Acid 16.98 0.2-2.81 mg/dL Lactic Acid Level 1.3 0.4-2.0 mmol/L Diagnostic Radiology Reviewed the following studies and agree with interpretation as follows: CHEST ONE VIEW PORTABLE CLINICAL HISTORY: ABDOMINAL PAIN/GI pain COMPARISON STUDY: 2016 FINDINGS: The bones soft tissues and hemidiaphragms are normal. The cardiomediastinal silhouette is normal. The lungs are clear. The pulmonary vasculature is normal. IMPRESSION: Negative chest. EKG Reviewed EKG and agree with interpretation as follows: 86 bpm, NSR, lateral ST elevations are UNCHANGED from 07/24/17 (chronic) Impression Assessment and Plan 47 y/o male with a history of uncontrolled DM II, HTN, hypertriglyceridemia, CKD stage III, chronic PE, anxiety/depression, and GERD who presented to the ED on 09/15 with generalized cramping pain, excessive urination and unintentional weight loss. Pt afebrile, VSS on arrival. BSG 706. Pt was given IVF and started on insulin drip. Potassium 5.3. Sodium 116. Serum osmolality high at 306. Creatinine 2.22. Beta hydroxybutyric acid 16.98. LFTs elevated but improved from last admission. Troponin negative. Hyperglycemia/HHS, h/o uncontrolled DM II -Admit to ICU. Speeder Worker consulted and will manage -Insulin drip per [facility] protocol -Check serial labs -Pseudohyponatremia with sodium of 116. Corrected sodium 128. Continue NSS at 250 cc/hr -Potassium stable at 5.3 -NPO -Last HgbA1c checked 07/24/17 was 11.8. Repeat A1c pending Acute renal failure on CKD stage III -Baseline creatinine 1.3 -Creatinine 2.22 on arrival -IVF as above, continue to monitor -Hold lisinopril and metformin Chest pain--reproducible w/palpation, initial troponin negative. ST elevations on EKG are chronic and EKG actually improved compared to Jul 2017 -Cardiology consulted, appreciate recs: Spoke with Dr. Gonzales, will trend cardiac enzymes x 3. No need to repeat echo -Trend cardiac enzymes q8h x 3 sets, first set negative -EKG q am and prn chest pain -Echo 07/22/17 showed LVEF of 60-65%, no WMA. No significant valvular pathology. Normal LV and RV size and function. HTN--stable -Lisinopril on hold due to ARF -Continue metoprolol succinate 150 mg PO qd Chronic PE--stable, not tachycardic or hypoxic -Continue Xarelto 20 mg PO qd Anxiety/depression--stable -Continue Lexapro 30 mg PO qd and Xanax 1 mg PO TID Elevated LFTs--improving -LFTs still elevated but improved compared to previous admission in July 2017 -Pt had unremarkable abdomen CT, RUQ US and HIDA Jun-Jul 2017 DVT prophylaxis -Xarelto -MIKE ritchie and SCDs Code Status -Level I, FULL RESUSCITATION STATUS Level of Care Critical Care Advanced Directives Existing Living Will: No Existing Power of Taper/Finisher: No Resuscitation Status FULL RESUSCITATION VTE Prophylaxis VTE Risk Assessment Done? Y/N: Yes Risk Level: Moderate Given or contraindicated: Other Anticoagulation (Xarelto), T.E.D. Stockings, SCD's
--- NOTE | 2017-09-15 16:13 | DIAGNOSTIC IMAGING REPORT ---
PORTAL AND HEPATIC VEIN ULTRASOUND DUPLEX EXAMINATION CLINICAL HISTORY: Elevated LFTs. History of pulmonary embolism. Abdominal pain. COMPARISON STUDY: Biliary ultrasound dated 06/13/2017 FINDINGS: Color flow and spectral analysis was performed. The hepatic veins were patent with normal directional flow. The portal veins were patent with normal directional flow. The hepatic artery was patent with a normal waveform with peak systolic velocity of 42 cm/s. The splenic vein was patent with normal directional flow. IMPRESSION: No evidence of portal or hepatic vein thrombosis. Electronically signed by: Prakash Flores M.D. 09/15/2017 4:11 PM Dictated Date/Time: 09/15/2017 4:09 PM
--- NOTE | 2017-09-15 16:49 | CARDIOLOGY CONSULTATION ---
DATE OF CONSULTATION: 09/15/2017 TIME: 15:32 p.m. CONSULTING PHYSICIAN: Dr. Baez. REASON FOR CONSULTATION: ST elevations. PRIMARY CHILD DEVELOPMENT ASSOCIATE TEACHER: Dr. López. HISTORY OF PRESENT ILLNESS: Mr. Delaney is a pleasant 47-year-old gentleman who presented to the Emergency Department with abdominal and chest pain. He has a history of type 2 diabetes, pulmonary embolism, and hypertension as well as gastric ulcers and esophagitis. He was seen by Dr. López on 07/23/2017 with chest discomfort while hospitalized at [facility]. He was noted to have ST elevation at that time and had an echocardiogram without wall motion abnormalities. He also had serial troponin levels, which were unremarkable. He states that for the past 2 weeks, he has had body aching in his hands, his toes, his legs and his abdomen. Whenever he had the abdominal cramping, it would radiate into his central chest. It was not related with exertion and rather occurred at rest. The only specific trigger that he is identified is that it was more likely to occur if he did not eat or drink. Chest discomfort would last for 1-2 minutes before spontaneously resolving. He described it as a cramping sensation with the severity as high as 7/10. It was accompanied by shortness of breath, nausea and diaphoresis. He denies any vomiting. He has lost 41 pounds in the past 2 weeks. He states he is trying to lose weight, but has not done any measures to account for 41-pound weight loss over 2 weeks. He had been working out at the gym 4 days per week including stationary bicycle for 20 minutes and other cardiovascular exercises. He also does some light weight lifting, but no heavy weights. While exercising, he denies any chest discomfort or dyspnea with exertion. He also denies orthopnea, syncope, near syncope, or palpitations. He denies bleeding. He denies edema. He has had chest pain intermittently for approximately 4 years. He underwent cardiac catheterization on 09/08/2013, which was described as normal coronary arteries without CAD. He also has chronically elevated transaminase levels. He had an echocardiogram done during his last hospitalization with similar symptoms, which demonstrated normal LV systolic function without wall motion abnormality. During his initial presentation today, he was found to have a glucose level of 706 as well as hyponatremia, mild hyperkalemia, and worsening renal function compared to his baseline. REVIEW OF SYSTEMS: As above and review of systems otherwise negative/unremarkable. PAST MEDICAL HISTORY: 1. Type 2 diabetes. 2. Pulmonary embolism x4. 3. Depression. 4. Esophagitis. 5. Gastric ulcers. 6. Hypertension. 7. GI bleeding. 8. Myositis. 9. Renal insufficiency. 10. Status post colon surgery. 11. Noncompliance: He admits that he sometimes misses the doses of his diabetic regimen, but not on a regular basis. HOME MEDICATIONS: Include metoprolol succinate 150 mg daily, lisinopril 20 mg daily, metformin, insulin, Lexapro, Xanax, Protonix, Ritalin 20 mg p.o. b.i.d. ALLERGIES AND INTOLERANCES: LISTED ACETAMINOPHEN, HYDROCODONE, IV CONTRAST AND PLASMA. FAMILY HISTORY: No known premature CAD. Both of his parents are . SOCIAL HISTORY: Denies smoking. Occasional alcohol. No drugs. He lives alone. He is . He has 3 children and remain active in their life. 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 He is currently alone in his hospital room in the Emergency Department. PHYSICAL EXAMINATION: VITAL SIGNS: Temperature 36.7 degrees, heart rate 78 beats per minute, respiratory rate 18, blood pressure 134/77 mmHg, and oxygen saturation 98% on room air. Weight 125 kg. GENERAL: In no acute distress. He is alert and oriented. HEENT: Anicteric sclerae. NECK: Thick, but no appreciable JVD. No bruits. Normal carotid upstrokes bilaterally. CARDIAC EXAMINATION: PMI was nondisplaced. There was no ventricular heave. Regular, normal S1 and S2. There were no audible murmurs, rubs or gallops. LUNGS: Clear to auscultation bilaterally without wheezes, rales or rhonchi. ABDOMEN: Soft and nondistended. Normoactive bowel sounds. No bruits noted. Tenderness in the epigastric and left upper quadrant areas, reproducing his abdominal discomfort described above. EXTREMITIES: No cyanosis or pitting edema. 2+ radial pulses bilaterally. 2+ dorsalis pedis pulses bilaterally. PSYCHIATRIC: Affect appears appropriate. CHEST: Tender to palpation, reproducing his chest discomfort as described in the HPI. He is tender along the sternum. No rash or palpable mass in that area. ECG on 09/15/2017 at 11:30 a.m. personally reviewed. Normal sinus rhythm at [address] elevation in the lateral leads. No significant change from prior ECG on 07/24/2017. Repeat ECG at 13:46 also personally reviewed. Sinus rhythm at [address] elevation in the lateral leads and also lead 2, similar to prior ECG. Echocardiogram on 07/22/2017 report reviewed. Normal LV size and systolic function. EF 60%-65%. Normal wall motion. No significant valvular abnormalities. LABORATORY DATA: Sodium 116, potassium 5.3, BUN 26, creatinine 2.22, and glucose 706. AST 171 and ALT 254. Troponin undetectable. Lipase 474 and albumin 4.1. WBC 5.78, hemoglobin 15.2, platelets 177, and magnesium 2.4. Chest x-ray report reviewed, negative chest per radiology. Cardiac catheterization on 09/08/2013: No coronary artery disease reported. ASSESSMENT AND PLAN: 1. Abnormal ECG: He does have ST elevations, which appear to be a chronic issue when reviewing prior ECGs. He denies angina and has had echocardiogram done for the same chest discomfort and ECG findings without wall motion abnormalities and has had negative troponins. Recommend no further ischemic evaluation at this time unless clinical course changes for a higher suspicion of ischemic heart disease as playing a role. His chest pain is reproducible. 2. Chest pain: Reproducible and likely musculoskeletal. It also seems to be radiating from his abdominal pain as it was in July 2017 when he was evaluated by Dr. López. Recommend further evaluation for noncardiac chest pain. He does have a history of esophagitis and gastric ulcers. 3. Hypertension: Continue the patient on outpatient medications as his blood pressure appears to be adequately controlled currently. Risk factor modification given his risk factors for coronary disease is recommended. 4. Hyperglycemia: Treatment as per primary service. 5. Elevated transaminases: This can be followed at primary service. This is a chronic issue as well. 6. Disposition: Cardiology will sign off at this time. If there are any further questions or concerns, please do not hesitate to contact Dr. López or the on-call motorbike courier for [facility]. Plan of care has been discussed with Digna Tran of the admitting hospitalist service. Thank you for allowing me to participate in the care of Mr. Delaney. Sincerely,
[2017-09-15] MEDS ORDERED: INSULIN ASPART 100 UNITS/ML 3 ML PEN SC SCH (17:15)
[2017-09-15 17:26] LABS: BUN/CREATININE RATIO 13.2 (10-20); CALCIUM 9.6 mg/dl (8.5-10.1); CREATININE 1.92 mg/dl (0.60-1.40); MAGNESIUM 2.5 mg/dl (1.8-2.4); PHOSPHORUS 3.7 mg/dl (2.5-4.9); POTASSIUM 3.6 mmol/L (3.5-5.1)
--- NOTE | 2017-09-15 17:32 | DIAGNOSTIC IMAGING REPORT ---
BILIARY ABDOMEN LIMITED CLINICAL HISTORY: Elevated LFTs COMPARISON STUDY: CT scan dated 07/22/2017 FINDINGS: The pancreas appears normal as visualized. The liver measures 19.4 cm. The liver is slightly heterogeneous in echotexture. There is increased hepatic echogenicity, nonspecific finding most often seen in hepatic steatosis. There is no ductal dilatation. The common bile duct measures 5 mm in maximal diameter. There is no right-sided hydronephrosis. There is a small amount of sludge in the gallbladder. No shadowing calculi are visualized. IMPRESSION: 1. Increased hepatic echogenicity, a nonspecific finding most often seen in hepatic steatosis 2. No evidence of ductal dilatation 3. Small amount of sludge within the gallbladder. No shadowing calculi are visualized. Electronically signed by: Prakash Flores M.D. 09/15/2017 5:31 PM Dictated Date/Time: 09/15/2017 5:29 PM
[2017-09-15 17:38] LABS: BETA-HYDROXYBUTYRATE 6.46 mg/dL (0.2-2.81)
[2017-09-15] MEDS ORDERED: PENDING D5 1/2NSS IVF SCH (18:00)
[2017-09-15] MEDS: NORMOSOL R 1,000 ML IV SCH ×2 (18:01→20:30)
[2017-09-15] MEDS: HYDROmorphone INJ 0.5 MG/0.5 ML SYR IV PRN ×2 (18:24→23:34)
[2017-09-15] MEDS: METHYLPHENIDATE HCL 10 MG TAB PO SCH (18:24)
[2017-09-15] MEDS: INSULIN ASPART 100 UNITS/ML 3 ML PEN SC SCH ×2 (18:32→21:00)
[2017-09-15] MEDS ORDERED: POTASSIUM ACETATE INJ 10 MEQ in SODIUM CHLORIDE 0.9% 100ML 100 ML IV ONE (19:30)
[2017-09-15 20:36] LABS: CKMB/CK RATIO 0.6 (0-3.0)
[2017-09-15] MEDS: POTASSIUM CHLORIDE 20 MEQ TABCR PO SCH ×2 (20:59→21:00)
[2017-09-15] MEDS: INSULIN GLARGINE SOLOSTAR 100 UNITS/ML 3 ML PEN SC SCH (21:03)
[2017-09-15 21:15] LABS: BUN/CREATININE RATIO 13.3 (10-20); CALCIUM 9.3 mg/dl (8.5-10.1); CREATININE 1.88 mg/dl (0.60-1.40); MAGNESIUM 2.5 mg/dl (1.8-2.4); PHOSPHORUS 3.6 mg/dl (2.5-4.9); POTASSIUM 3.7 mmol/L (3.5-5.1)
[2017-09-15] MEDS ORDERED: NURSING VERBAL MED ORDER ONE (21:30)
[2017-09-15] MEDS: ALPRAZOLAM 0.5 MG TAB PO SCH (21:30)
[2017-09-15] MEDS: ZOLPIDEM TARTRATE 10 MG TAB PO SCH (21:31)
[2017-09-15 21:32] LABS: BETA-HYDROXYBUTYRATE 5.29 mg/dL (0.2-2.81)
[2017-09-15] MEDS ORDERED: D5W AND 1/2NSS 1,000 ML IV SCH (21:45)
[2017-09-16] VITALS (11 sets, daily range): BP systolic 94–119; BP diastolic 45–70; PULSE 72–83; TEMP 36.7–36.8; O2SAT 89–96; BMI 36.9
[2017-09-16] MEDS: NORMOSOL R 1,000 ML IV SCH ×2 (01:30→06:17)
[2017-09-16 01:33] LABS: BUN/CREATININE RATIO 11.9 (10-20); CALCIUM 8.3 mg/dl (8.5-10.1); CREATININE 1.73 mg/dl (0.60-1.40); MAGNESIUM 2.1 mg/dl (1.8-2.4); PHOSPHORUS 3.5 mg/dl (2.5-4.9); POTASSIUM 3.7 mmol/L (3.5-5.1)
[2017-09-16 01:43] LABS: BETA-HYDROXYBUTYRATE 6.71 mg/dL (0.2-2.81)
[2017-09-16] MEDS ORDERED: POTASSIUM CHLORIDE 20 MEQ TABCR PO ONE (02:00)
[2017-09-16] MEDS ORDERED: AMIODARONE 360MG / 200ML D5W ONE (03:52)
[2017-09-16] MEDS ORDERED: AMIODARONE 150MG / 100ML D5W ONE (03:53)
[2017-09-16 03:55] LABS: HEMATOCRIT 38.9 % (42-52); MEAN CELL VOLUME 87.8 fL (80-100); MEAN CORPUSCULAR HGB CONC 34.2 g/dl (32-36); MEAN PLATELET VOLUME 13.3 fL (7.4-10.4); PLATELET COUNT 156 K/uL (130-400); RED BLOOD COUNT 4.43 M/uL (4.7-6.1); WHITE BLOOD COUNT 6.13 K/uL (4.8-10.8)
[2017-09-16 04:18] LABS: BLOOD UREA NITROGEN 21 mg/dl (7-18); BUN/CREATININE RATIO 12.1 (10-20); CALCIUM 8.6 mg/dl (8.5-10.1); CARBON DIOXIDE 31 mmol/L (21-32); CHLORIDE 95 mmol/L (98-107); CREATININE 1.72 mg/dl (0.60-1.40); GLUCOSE 273 mg/dl (70-99); MAGNESIUM 2.3 mg/dl (1.8-2.4); POTASSIUM 3.8 mmol/L (3.5-5.1); SODIUM 128 mmol/L (136-145)
[2017-09-16 04:25] LABS: CHOLESTEROL 214 mg/dl (0-200); CHOLESTEROL/HDL RATIO 7.9; CKMB/CK RATIO 0.5 (0-3.0); HDL CHOLESTEROL 27 mg/dl; LDL CHOLESTEROL CALCULATED 120 mg/dl; PHOSPHORUS 2.6 mg/dl (2.5-4.9); TRIGLYCERIDES 333 mg/dl (0-150); VERY LOW DENSITY LIPOPROT CALC 67 mg/dl
[2017-09-16] MEDS ORDERED: HEPARIN 25,000 UNIT/500ML D5W 500 ML IV PRN (07:00)
[2017-09-16] MEDS: INSULIN ASPART 100 UNITS/ML 3 ML PEN SC SCH ×5 (08:00→21:48)
[2017-09-16 08:32] LABS: ESTIMATED AVERAGE GLUCOSE > 438 mg/dl
[2017-09-16 08:43] LABS: BUN/CREATININE RATIO 13.1 (10-20); CALCIUM 8.6 mg/dl (8.5-10.1); CREATININE 1.41 mg/dl (0.60-1.40); MAGNESIUM 2.3 mg/dl (1.8-2.4); PHOSPHORUS 2.7 mg/dl (2.5-4.9); POTASSIUM 3.7 mmol/L (3.5-5.1)
[2017-09-16] MEDS ORDERED: ESCITALOPRAM OXALATE 20 MG TAB PO SCH (09:00)
[2017-09-16] MEDS ORDERED: RIVAROXABAN 10 MG TAB PO SCH (09:00)
[2017-09-16 09:31] LABS: HA1C FLAG Reference Range (Normal)
[2017-09-16] MEDS: PANTOprazole SOD 40 MG TAB PO SCH (10:33)
[2017-09-16] MEDS: ESCITALOPRAM OXALATE 10 MG TAB PO SCH (10:33)
[2017-09-16] MEDS: METOPROLOL SUCC 50MG EXT REL TAB PO SCH (10:33)
[2017-09-16] MEDS: POTASSIUM CHLORIDE 20 MEQ TABCR PO SCH (10:34)
[2017-09-16] MEDS: METHYLPHENIDATE HCL 10 MG TAB PO SCH ×2 (10:38→17:04)
[2017-09-16] MEDS: ALPRAZOLAM 0.5 MG TAB PO SCH ×3 (10:38→21:43)
[2017-09-16] MEDS ORDERED: RIVAROXABAN 20 MG TAB PO SCH (11:30)
[2017-09-16 12:38] LABS: BUN/CREATININE RATIO 11.7 (10-20); CALCIUM 8.3 mg/dl (8.5-10.1); CREATININE 1.4 mg/dl (0.60-1.40); MAGNESIUM 2.3 mg/dl (1.8-2.4); POTASSIUM 4.1 mmol/L (3.5-5.1)
[2017-09-16 12:45] LABS: PHOSPHORUS 1.9 mg/dl (2.5-4.9)
[2017-09-16] MEDS ORDERED: INSULIN REGULAR 250 UNITS in SODIUM CHLORIDE 0.9% 250ML 250 ML IV SCH (14:00)
--- NOTE | 2017-09-16 14:03 | Critical Care Progress Note ---
Critical Care Progress Note Date of Service Sep 16, 2017. ICU Day ICU Day Number: [address] Eid Subjective Patient resting comfortably in bed this morning in no acute distress. States that his discomfort is improved from yesterday, currently 5/10 and the same character, a crampy like pain in the upper abdomen. His nausea has also improved from yesterday. Objective GENERAL: Awake, alert, well-appearing, in no distress HENT: Normocephalic, atraumatic. Oropharynx unremarkable. EYES: Normal conjunctiva. Sclera non-icteric. NECK: Supple. RESPIRATORY: Clear to auscultation. CARDIAC: Regular rate, normal rhythm. Extremities warm and well perfused. Pulses equal. ABDOMEN: Soft, non-distended. Mild tenderness over RUQ of abdomen RECTAL: Deferred. MUSCULOSKELETAL: Chest examination reveals no tenderness. The back is symmetrical on inspection without obvious abnormality. There is no CVA tenderness to palpation. LOWER EXTREMITIES: Calves are equal size bilaterally and non-tender. No edema. No discoloration. NEURO: Normal sensorium. No sensory or motor deficits noted. SKIN: No rash or jaundice noted. Current SOFA Score SOFA Score Response (Comments) Value Platelets (x10) > 150 0 Bilirubin (mg/dL) < 1.2 0 [place] Coma Score 15 0 Level of Hypotension No Hypotension 0 Creatinine (mg/dL) 1.2 - 1.9 1 Total 1 Assessment & Plan The patient is a 47-year-old male with a past medical history of diabetes, hypertension, and history of multiple bilateral PEs that presents with nausea, weakness, cramping in the upper and lower extremities, and abdominal pain. He was found in the emergency department to be hyperglycemic (706), hyponatremic ( 116), and an elevated lipase with transaminitis. His blood sugars improved overnight while on the insulin drip that was running at 4.2 units/hr this morning with a blood glucose of 126. Although his sodium appears to have rapidly corrected that must be corrected for his significantly elevated blood sugars. The patient is not at goal, we have discontinued his fluids, he has tolerated PO diet, and we will transfer him to the floor. Neuro: - Cam ICU negative - Alert and oriented 3 - Oxycodone 5mg q4h PRN for pain - Reviewed PDMP and patient currently on almost 16 mg per day of oxycodone CV: - Hypertension: Continue home metoprolol, holding home lisinopril due to acute kidney injury - EKG: Possible ST changes in inferior leads - Consult cardiology - Serial troponins - initial troponin less than 0.015 - Echo: 07/29 - EF 60-65%, No regional wall abnormalities, LVH Resp: - Chest x-ray: No acute cardiopulmonary abnormalities - Satting 98% on room air GI: - Patient tolerating PO intake this morning and abdominal pain improving - Transaminitis and elevated lipase on admission --> Plan to repeat LFTs and Lipase ordered for tomorrow - Transaminitis: D Bili - 0.4, AST -171, ALT - 254, Alk Phos - 225 - Lipase 474 - Portal and Hepatic Vein Duplex US: No sign of thrombosis - Triglycerides > 500 on admission + Elevated Total Cholesterol - Calculated ASCVD 16.4% - Hold adding Statin at this time due to elevated CK - Acute Hepatitis Panel pending - RUQ US: 1. Increased hepatic echogenicity, a nonspecific finding most often seen in hepatic steatosis 2. No evidence of ductal dilatation 3. Small amount of sludge within the gallbladder. No shadowing calculi are visualized. Renal: - BRIDGETTE --> Cr improved with IV fluids overnight 2.22 --> 1.72 (Baseline 1.3) - D/C IV Fluids - Hold Nephrotoxic Medications - Hypovolemic Hyponatremia dehydration improving - BMP q6h tomorrow morning Heme: - History of multiple PEs - Xarelto 20mg PO daily - Factor 10 level pending Endocrine: - Diabetic Ketoacidosis/ HHS - Insulin drip over last 24 hours range from 5.3 - 3.1, blood sugar now well controlled, although clearly poorly compliant with HbA1c > 16 - Ordered 40 units of Lantus at 1400 on 09/16 when transitioning patient - Will discontinue the drip in 6 hours - Continue 50 units of lantus at bedtime - ISS with CR of 10 and carb coverage 1:4 - BSG checks every 4 hours - Beta-Hydroxybutyric Acid of 16.98 Sleep: - Element of OHS/MEAGAN - Desaturating at night + clear snoring at bedside evaluation - Outpatient evaluations recommended DVT Prophylaxis: - Xarelto GI Prophylaxis: - Protonix Code Status: - Full Resuscitation Resident Physician Supervision Note: Dr. Restrepo was resident physician during care of patient. I separately evaluated patient and did history and exam. I discussed the case with the resident and generally agree with the findings and plan. Stable for downgrade out of ICU Documented By: Darren Eid DO Consults & Procedures Consultants: Cardiology Procedures: None Data Medications: Current Inpatient Medications Medications (Trade) Dose Ordered Sig/Roxie Route Start Time Stop Time Status Last Admin Dose Admin Insulin Aspart (novoLOG ASPART) SLIDING SCALE PCHS SC 09/15/17 17:15 10/15/17 18:59 09/16/17 12:04 9 UNITS Ondansetron HCl (Zofran Inj) 4 mg Q6H PRN IV 09/15/17 14:45 10/15/17 14:44 Alprazolam (Xanax Tab) 1 mg TID PO 09/15/17 21:00 10/15/17 20:59 09/16/17 10:38 1 MG Escitalopram Oxalate (Lexapro Tab) 30 mg DAILY PO 09/16/17 09:00 10/16/17 08:59 09/16/17 10:33 30 MG Methylphenidate HCl (Ritalin Tab) 20 mg BID17 PO 09/15/17 17:00 09/29/17 16:59 09/16/17 10:38 20 MG Metoprolol Succinate (Toprol Xl Tab) 150 mg DAILY PO 09/16/17 09:00 10/16/17 08:59 09/16/17 10:33 150 MG Pantoprazole Sodium (Protonix Tab) 40 mg DAILY PO 09/16/17 09:00 10/16/17 08:59 09/16/17 10:33 40 MG Zolpidem Tartrate (Ambien Tab) 10 mg HS PO 09/15/17 21:00 10/15/17 20:59 09/15/17 21:31 10 MG Al Hydrox/Mg Hydrox/Simethicone (Maalox Max Susp) 15 ml Q4H PRN PO 09/15/17 15:15 10/15/17 15:14 Magnesium Hydroxide (Milk Of Magnesia Susp) 30 ml Q12H PRN PO 09/15/17 15:15 10/15/17 15:14 Oxycodone HCl (Roxicodone Immediate Rel Tab) 10 mg Q4H PRN PO 09/15/17 15:30 09/29/17 15:29 09/16/17 11:54 10 MG Hydromorphone HCl (Dilaudid Inj) 0.5 mg Q4H PRN IV 09/15/17 15:45 09/29/17 15:44 09/15/17 23:34 0.5 MG Insulin Human Regular 250 units/ Sodium Chloride 252.5 ml @ 0 mls/hr Q24H IV 09/15/17 14:30 10/15/17 14:29 Potassium Chloride (Klor-Con Tab) 60 meq BID PO 09/15/17 18:30 10/15/17 18:29 09/16/17 10:34 60 MEQ Insulin Glargine (Lantus Solostar Pen) 50 units HS SC 09/15/17 21:00 10/15/17 20:59 09/15/17 21:03 50 UNITS Rivaroxaban (Xarelto Tab) 20 mg DAILYBD PO 09/16/17 13:30 10/16/17 13:29 Vital Signs: Date Time Temp Pulse Resp B/P (MAP) Pulse Ox O2 Delivery O2 Flow Rate FiO2 09/16/17 12:00 36.7 83 17 110/68 (82) 95 Room Air 09/16/17 12:00 Room Air 09/16/17 10:00 83 16 116/64 (81) 94 Room Air 09/16/17 08:00 Room Air 09/16/17 08:00 36.8 72 16 110/59 (76) 94 Room Air 09/16/17 08:00 Room Air 09/16/17 06:01 72 18 94/46 (62) 92 Room Air 09/16/17 04:07 76 12 95/57 (70) 93 Room Air 09/16/17 04:01 36.8 75 16 96/48 (64) 96 Room Air 09/16/17 04:00 Room Air 09/16/17 03:01 75 15 111/55 (73) 95 Room Air 09/16/17 01:00 75 14 119/59 (79) 89 Room Air 09/16/17 00:01 36.8 79 16 106/45 (65) 95 Room Air 09/16/17 00:00 Room Air 09/15/17 22:01 81 23 113/60 (68) 95 09/15/17 22:00 37.0 09/15/17 21:00 85 18 94 09/15/17 20:00 83 15 96 09/15/17 20:00 94 Room Air 09/15/17 20:00 37.0 09/15/17 19:04 79 21 95/60 (83) 95 09/15/17 19:01 77 14 125/65 (83) 92 09/15/17 18:02 85 23 125/80 (97) 97 09/15/17 17:49 79 23 123/62 (94) 90 09/15/17 17:30 81 20 93 09/15/17 17:15 82 22 90 09/15/17 17:14 90 26 104/70 (83) 96 09/15/17 16:45 82 19 94 09/15/17 16:30 83 14 93 09/15/17 16:23 37.1 83 17 109/65 (76) 94 09/15/17 16:00 18 137/77 98 09/15/17 13:48 78 18 134/77 98 Room Air 09/15/17 13:32 36.7 84 18 134/83 96 Room Air Laboratory Results: Last 24 Hours Test 09/15/17 14:30 09/15/17 16:27 09/15/17 16:38 09/15/17 17:35 Bedside Glucose 519 mg/dl 467 mg/dl 412 mg/dl Venous Blood pH 7.42 Sodium Level 127 mmol/L Potassium Level 3.6 mmol/L Chloride Level 90 mmol/L Carbon Dioxide Level 29 mmol/L Anion Gap 8.0 mmol/L Blood Urea Nitrogen 25 mg/dl Creatinine 1.92 mg/dl Est Creatinine Clear Calc Drug Dose 68.3 ml/min Estimated GFR () 47.7 Estimated GFR (Non- 41.1 BUN/Creatinine Ratio 13.2 Random Glucose 486 mg/dl Calcium Level 9.6 mg/dl Phosphorus Level 3.7 mg/dl Magnesium Level 2.5 mg/dl Beta-Hydroxybutyric Acid 6.46 mg/dL Hepatitis B Surface Antigen NEG Hepatitis C Antibody NEG Test 09/15/17 18:37 09/15/17 19:40 09/15/17 20:01 09/15/17 20:38 Bedside Glucose 405 mg/dl 399 mg/dl 340 mg/dl Venous Blood pH 7.44 Sodium Level 129 mmol/L Potassium Level 3.7 mmol/L Chloride Level 91 mmol/L Carbon Dioxide Level 28 mmol/L Anion Gap 10.0 mmol/L Blood Urea Nitrogen 25 mg/dl Creatinine 1.88 mg/dl Est Creatinine Clear Calc Drug Dose 69.7 ml/min Estimated GFR () 48.9 Estimated GFR (Non- 42.2 BUN/Creatinine Ratio 13.3 Random Glucose 381 mg/dl Calcium Level 9.3 mg/dl Phosphorus Level 3.6 mg/dl Magnesium Level 2.5 mg/dl Total Creatine Kinase 502 U/L Creatine Kinase MB 2.8 ng/ml Creatine Kinase MB Ratio 0.6 Troponin I < 0.015 ng/ml Beta-Hydroxybutyric Acid 5.29 mg/dL Test 09/15/17 21:37 09/15/17 22:49 09/15/17 23:42 09/16/17 00:51 Bedside Glucose 377 mg/dl 363 mg/dl 364 mg/dl 394 mg/dl Test 09/16/17 00:53 09/16/17 02:00 09/16/17 03:10 09/16/17 03:47 Venous Blood pH 7.38 7.36 Sodium Level 126 mmol/L 128 mmol/L Potassium Level 3.7 mmol/L 3.8 mmol/L Chloride Level 92 mmol/L 95 mmol/L Carbon Dioxide Level 29 mmol/L 31 mmol/L Anion Gap 5.0 mmol/L 2.0 mmol/L Blood Urea Nitrogen 21 mg/dl 21 mg/dl Creatinine 1.73 mg/dl 1.72 mg/dl Est Creatinine Clear Calc Drug Dose 75.8 ml/min 76.2 ml/min Estimated GFR () 54.1 54.4 Estimated GFR (Non- 46.6 47.0 BUN/Creatinine Ratio 11.9 12.1 Random Glucose 416 mg/dl 273 mg/dl Calcium Level 8.3 mg/dl 8.6 mg/dl Phosphorus Level 3.5 mg/dl 2.6 mg/dl Magnesium Level 2.1 mg/dl 2.3 mg/dl Beta-Hydroxybutyric Acid 6.71 mg/dL Bedside Glucose 345 mg/dl 333 mg/dl White Blood Count 6.13 K/uL Red Blood Count 4.43 M/uL Hemoglobin 13.3 g/dL Hematocrit 38.9 % Mean Corpuscular Volume 87.8 fL Mean Corpuscular Hemoglobin 30.0 pg Mean Corpuscular Hemoglobin Concent 34.2 g/dl RDW Standard Deviation 44.9 fL RDW Coefficient of Variation 13.8 % Platelet Count 156 K/uL Mean Platelet Volume 13.3 fL Total Creatine Kinase 617 U/L Creatine Kinase MB 2.9 ng/ml Creatine Kinase MB Ratio 0.5 Troponin I < 0.015 ng/ml Triglycerides Level 333 mg/dl Cholesterol Level 214 mg/dl HDL Cholesterol 27 mg/dl LDL Cholesterol, Calculated 120 mg/dl VLDL Cholesterol, Calculated 67 mg/dl Cholesterol/HDL Ratio 7.9 Test 09/16/17 04:06 09/16/17 05:14 09/16/17 07:26 09/16/17 07:58 Bedside Glucose 261 mg/dl 208 mg/dl 126 mg/dl Venous Blood pH 7.39 Sodium Level 135 mmol/L Potassium Level 3.7 mmol/L Chloride Level 99 mmol/L Carbon Dioxide Level 28 mmol/L Anion Gap 8.0 mmol/L Blood Urea Nitrogen 19 mg/dl Creatinine 1.41 mg/dl Est Creatinine Clear Calc Drug Dose 95.0 ml/min Estimated GFR () 69.2 Estimated GFR (Non- 59.7 BUN/Creatinine Ratio 13.1 Random Glucose 144 mg/dl Calcium Level 8.6 mg/dl Phosphorus Level 2.7 mg/dl Magnesium Level 2.3 mg/dl Test 09/16/17 08:32 09/16/17 11:53 Bedside Glucose 136 mg/dl Venous Blood pH 7.35 Sodium Level 129 mmol/L Potassium Level 4.1 mmol/L Chloride Level 97 mmol/L Carbon Dioxide Level 32 mmol/L Anion Gap 0.0 mmol/L Blood Urea Nitrogen 16 mg/dl Creatinine 1.40 mg/dl Est Creatinine Clear Calc Drug Dose 95.7 ml/min Estimated GFR () 69.8 Estimated GFR (Non- 60.3 BUN/Creatinine Ratio 11.7 Random Glucose 278 mg/dl Calcium Level 8.3 mg/dl Phosphorus Level 1.9 mg/dl Magnesium Level 2.3 mg/dl Resident Tracking Resident Involvement: Resident Care Provided Care Provided: Adult Hospital Medicine
[2017-09-16] MEDS ORDERED: INSULIN GLARGINE SOLOSTAR 100 UNITS/ML 3 ML PEN SC ONE (14:15)
[2017-09-16] MEDS: RIVAROXABAN 10 MG TAB PO SCH (14:19)
[2017-09-16] MEDS: INSULIN REGULAR 250 UNITS in SODIUM CHLORIDE 0.9% 250ML 250 ML IV SCH ×2 (15:07→18:08)
[2017-09-16] MEDS ORDERED: DC IV INSULIN INFUSION ONE (20:00)
[2017-09-16] MEDS: OXYCODONE HCL IR 5 MG TAB (IMMEDIATE RELEASE) PO PRN (20:04)
[2017-09-16] MEDS: ZOLPIDEM TARTRATE 10 MG TAB PO SCH (21:44)
[2017-09-16] MEDS: INSULIN GLARGINE SOLOSTAR 100 UNITS/ML 3 ML PEN SC SCH (21:47)
[2017-09-16] MEDS: DICYCLOMINE HCL 20 MG TAB PO SCH (23:14)
[2017-09-17] MEDS: OXYCODONE HCL IR 5 MG TAB (IMMEDIATE RELEASE) PO PRN ×4 (00:02→20:58)
--- NOTE | 2017-09-17 00:06 | Hospitalist Progress Note ---
Hospitalist Progress Note Date of Service Sep 16, 2017. Subjective Pt evaluation today including: conversation w/ patient Pt feeling much better than yesterday. Still having epigastric pain with tight bands of pain across entire upper abdomen. No heartburn symptoms. He had EGD about 6 weeks ago that was normal. Lipase mildly elevated this admission. Pain has been going on x 2 weeks, is not worse with eating here. Pt reports he always took his Lantus 50 units, but often did not take his Novolog with meals. He only checks his glucose 1-2x/week Musculoskeletal: + muscle pain (all over but much improved from previous) Male : + urinary frequency (but improving) All Other Systems: Reviewed and Negative Objective Vital Signs Date Time Temp Pulse Resp B/P (MAP) Pulse Ox O2 Delivery O2 Flow Rate FiO2 09/16/17 16:07 36.8 73 18 108/70 (83) 90 Room Air 09/16/17 15:45 Room Air 09/16/17 14:00 80 20 116/70 (85) 96 Room Air 09/16/17 12:00 36.7 83 17 110/68 (82) 95 Room Air 09/16/17 12:00 Room Air 09/16/17 10:00 83 16 116/64 (81) 94 Room Air 09/16/17 08:00 Room Air 09/16/17 08:00 36.8 72 16 110/59 (76) 94 Room Air 09/16/17 08:00 Room Air 09/16/17 06:01 72 18 94/46 (62) 92 Room Air 09/16/17 04:07 76 12 95/57 (70) 93 Room Air 09/16/17 04:01 36.8 75 16 96/48 (64) 96 Room Air 09/16/17 04:00 Room Air 09/16/17 03:01 75 15 111/55 (73) 95 Room Air 09/16/17 01:00 75 14 119/59 (79) 89 Room Air 09/16/17 00:01 36.8 79 16 106/45 (65) 95 Room Air 09/16/17 00:00 Room Air Physical Exam General Appearance: WD/WN, no apparent distress Eyes: normal inspection, sclerae normal ENT: hearing grossly normal Neck: trachea midline Respiratory/Chest: lungs clear, normal breath sounds, no respiratory distress, no accessory muscle use Cardiovascular: regular rate, rhythm, no edema, no gallop, no murmur Abdomen: normal bowel sounds, soft, no organomegaly, no pulsatile mass, + tenderness (in epigastric region without guarding or rebound) Extremities: non-tender, normal inspection, no pedal edema, no calf tenderness Neurologic/Psychiatric: alert, normal mood/affect, oriented x 3 Skin: normal color, warm/dry, no rash Laboratory Results Last 24 Hours Test 09/15/17 23:42 09/16/17 00:51 09/16/17 00:53 09/16/17 02:00 Bedside Glucose 364 mg/dl 394 mg/dl 345 mg/dl Venous Blood pH 7.38 Sodium Level 126 mmol/L Potassium Level 3.7 mmol/L Chloride Level 92 mmol/L Carbon Dioxide Level 29 mmol/L Anion Gap 5.0 mmol/L Blood Urea Nitrogen 21 mg/dl Creatinine 1.73 mg/dl Est Creatinine Clear Calc Drug Dose 75.8 ml/min Estimated GFR () 54.1 Estimated GFR (Non- 46.6 BUN/Creatinine Ratio 11.9 Random Glucose 416 mg/dl Calcium Level 8.3 mg/dl Phosphorus Level 3.5 mg/dl Magnesium Level 2.1 mg/dl Beta-Hydroxybutyric Acid 6.71 mg/dL Test 09/16/17 03:10 09/16/17 03:47 09/16/17 04:06 09/16/17 05:14 Bedside Glucose 333 mg/dl 261 mg/dl 208 mg/dl White Blood Count 6.13 K/uL Red Blood Count 4.43 M/uL Hemoglobin 13.3 g/dL Hematocrit 38.9 % Mean Corpuscular Volume 87.8 fL Mean Corpuscular Hemoglobin 30.0 pg Mean Corpuscular Hemoglobin Concent 34.2 g/dl RDW Standard Deviation 44.9 fL RDW Coefficient of Variation 13.8 % Platelet Count 156 K/uL Mean Platelet Volume 13.3 fL Venous Blood pH 7.36 Sodium Level 128 mmol/L Potassium Level 3.8 mmol/L Chloride Level 95 mmol/L Carbon Dioxide Level 31 mmol/L Anion Gap 2.0 mmol/L Blood Urea Nitrogen 21 mg/dl Creatinine 1.72 mg/dl Est Creatinine Clear Calc Drug Dose 76.2 ml/min Estimated GFR () 54.4 Estimated GFR (Non- 47.0 BUN/Creatinine Ratio 12.1 Random Glucose 273 mg/dl Calcium Level 8.6 mg/dl Phosphorus Level 2.6 mg/dl Magnesium Level 2.3 mg/dl Total Creatine Kinase 617 U/L Creatine Kinase MB 2.9 ng/ml Creatine Kinase MB Ratio 0.5 Troponin I < 0.015 ng/ml Triglycerides Level 333 mg/dl Cholesterol Level 214 mg/dl HDL Cholesterol 27 mg/dl LDL Cholesterol, Calculated 120 mg/dl VLDL Cholesterol, Calculated 67 mg/dl Cholesterol/HDL Ratio 7.9 Test 09/16/17 07:26 09/16/17 07:58 09/16/17 08:32 09/16/17 09:29 Bedside Glucose 126 mg/dl 136 mg/dl 132 mg/dl Venous Blood pH 7.39 Sodium Level 135 mmol/L Potassium Level 3.7 mmol/L Chloride Level 99 mmol/L Carbon Dioxide Level 28 mmol/L Anion Gap 8.0 mmol/L Blood Urea Nitrogen 19 mg/dl Creatinine 1.41 mg/dl Est Creatinine Clear Calc Drug Dose 95.0 ml/min Estimated GFR () 69.2 Estimated GFR (Non- 59.7 BUN/Creatinine Ratio 13.1 Random Glucose 144 mg/dl Calcium Level 8.6 mg/dl Phosphorus Level 2.7 mg/dl Magnesium Level 2.3 mg/dl Test 09/16/17 10:45 09/16/17 11:53 09/16/17 11:57 09/16/17 13:14 Bedside Glucose 147 mg/dl 263 mg/dl 316 mg/dl Venous Blood pH 7.35 Sodium Level 129 mmol/L Potassium Level 4.1 mmol/L Chloride Level 97 mmol/L Carbon Dioxide Level 32 mmol/L Anion Gap 0.0 mmol/L Blood Urea Nitrogen 16 mg/dl Creatinine 1.40 mg/dl Est Creatinine Clear Calc Drug Dose 95.7 ml/min Estimated GFR () 69.8 Estimated GFR (Non- 60.3 BUN/Creatinine Ratio 11.7 Random Glucose 278 mg/dl Calcium Level 8.3 mg/dl Phosphorus Level 1.9 mg/dl Magnesium Level 2.3 mg/dl Test 09/16/17 14:01 09/16/17 15:07 09/16/17 16:04 09/16/17 16:48 Bedside Glucose 299 mg/dl 297 mg/dl 262 mg/dl 274 mg/dl Test 09/16/17 18:03 09/16/17 19:08 09/16/17 20:51 Bedside Glucose 309 mg/dl 226 mg/dl 303 mg/dl Assessment and Plan This pt is a 47 y/o male with a history of uncontrolled DM II, HTN, hypertriglyceridemia, CKD stage III, 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 BSG 706 and had HHS. Pt was given IVF and started on insulin drip. Also with dehydration and BRIDGETTE with Creatinine 2.22. LFTs elevated but improved from last admission. Troponin negative. Hyperglycemia/HHS, h/o uncontrolled DM II- HgbA1C >16% here and was 10% 6 weeks ago at last admission. Not compliant with short acting insulin, but obviously also needs improved control of glucose with higher dose of Lantus as well. Has received diabetic education. -Admitted to ICU on insulin gtt, improved and transferred to medical floor today -Extra Lantus 40 units given today and will continue Lantus 50 units qhs, dc insulin gtt 6 hours after afternoon Lantus given -continue accuchecks q4h -Pseudohyponatremia with sodium of 116 and Corrected sodium 128 on admission. 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 Mild elevation in lipase on admission. Also has h/o PUD but had recent EGD in 07/2017 that was normal. -continue PPI -will allow him to eat for now -consult GI in AM for opinion on pain -consider repeat imaging of pancreas Suspected OHS/MEAGAN - Desaturating at night + clear snoring at bedside evaluation - Outpatient evaluations recommended for formal sleep study -overnight oximetry prior to discharge to see if qualifies for nocturnal O2 Chest pain--reproducible w/palpation, troponins negative. ST elevations on EKG are chronic and EKG actually improved compared to Jul 2017 -Cardiology consulted, appreciate recs: No need to repeat echo as just had one 1 month ago -Echo 07/22/17 showed LVEF of 60-65%, no WMA. No significant valvular pathology. Normal LV and RV size and function. -resolved HTN--stable -Lisinopril on hold due to ARF -Continue metoprolol succinate 150 mg PO qd H/o recurrent PEs--stable, not tachycardic or hypoxic. All previous w/u for hypercoag d/o negative -Continue Xarelto 20 mg PO qd Anxiety/depression, ADHD--stable -Continue Lexapro 30 mg PO qd and Xanax 1 mg PO TID -continue stimulant drug Elevated LFTs--still elevated but improved compared to previous admission in July 2017. Abd US here is consistent with fatty liver, had gallbladder sludge , no portal vein thrombosis -recommended improved control of DM, low fat and low carb diet -should be followed by GI and considering liver biopsy -f/u hepatitis panel DVT prophylaxis -Xarelto -MIKE ritchie and SCDs GI Prophylaxis: - Protonix Code Status -Level I, FULL RESUSCITATION STATUS
[2017-09-17 00:13] VITALS: BP 108/70; PULSE 77; TEMP 36.5; O2SAT 94
[2017-09-17 07:25] VITALS: BP 106/71; PULSE 74; TEMP 36.6; O2SAT 96
[2017-09-17 07:25] LABS: BUN/CREATININE RATIO 9.6 (10-20); CALCIUM 8.2 mg/dl (8.5-10.1); CREATININE 1.32 mg/dl (0.60-1.40); MAGNESIUM 2.3 mg/dl (1.8-2.4); POTASSIUM 4.1 mmol/L (3.5-5.1)
[2017-09-17 08:05] LABS: HEMATOCRIT 36.1 % (42-52); MEAN CELL VOLUME 89.1 fL (80-100); MEAN CORPUSCULAR HEMOGLOBIN 29.9 pg (25-34); MEAN CORPUSCULAR HGB CONC 33.5 g/dl (32-36); MEAN PLATELET VOLUME 12.6 fL (7.4-10.4); PLATELET COUNT 119 K/uL (130-400); RED BLOOD COUNT 4.05 M/uL (4.7-6.1)
[2017-09-17 08:06] LABS: PLT ESTIMATE NORMAL
[2017-09-17] MEDS: DICYCLOMINE HCL 20 MG TAB PO SCH ×2 (08:06→13:11)
[2017-09-17] MEDS: ESCITALOPRAM OXALATE 10 MG TAB PO SCH (08:07)
[2017-09-17] MEDS: METOPROLOL SUCC 50MG EXT REL TAB PO SCH (08:07)
[2017-09-17] MEDS: PANTOprazole SOD 40 MG TAB PO SCH (08:08)
[2017-09-17] MEDS: INSULIN ASPART 100 UNITS/ML 3 ML PEN SC SCH ×4 (08:15→20:59)
[2017-09-17 08:20] LABS: INR 1.1 (0.9-1.1)
[2017-09-17] MEDS: METHYLPHENIDATE HCL 10 MG TAB PO SCH ×2 (08:22→17:06)
[2017-09-17] MEDS: ALPRAZOLAM 0.5 MG TAB PO SCH ×3 (08:22→20:57)
[2017-09-17] MEDS ORDERED: INSULIN GLARGINE SOLOSTAR 100 UNITS/ML 3 ML PEN SC SCH ×2 (09:00→21:00)
[2017-09-17 11:03] VITALS: BMI 36.3
[2017-09-17 15:25] VITALS: BP 107/66; PULSE 86; TEMP 37.1; O2SAT 95
[2017-09-17] MEDS: RIVAROXABAN 10 MG TAB PO SCH (17:06)
[2017-09-17] MEDS ORDERED: GI COCKTAIL PO PRN (17:15)
[2017-09-17] MEDS ORDERED: ALUMINUM/MAGNESIUM SUSP 72 ML, LIDOCAINE HCL 2% VISCOUS SOLN 24 ML, BARCODE IDENTIFIER ... PO PRN ×2 (17:30)
[2017-09-17] MEDS: CYCLOBENZAPRINE HCL 10 MG TAB PO PRN (18:06)
[2017-09-17] MEDS: ZOLPIDEM TARTRATE 10 MG TAB PO SCH (20:57)
--- NOTE | 2017-09-17 22:58 | Progress Note ---
Post ICU Progress Note Date & Time Sep 17, 2017 at 22:24 Vital Signs Vital Signs Past 12 Hours Date Time Temp Pulse Resp B/P (MAP) Pulse Ox O2 Delivery O2 Flow Rate FiO2 09/17/17 20:00 Room Air 09/17/17 16:00 Room Air 09/17/17 15:25 37.1 86 18 107/66 (80) 95 Room Air Notes Mental Status: see Notes (Chart Review) Nausea / Vomiting: adequately controlled Pain: see Notes (See Notes) Airway Patency, RR, SpO2: stable & adequate BP & HR: stable & adequate Jordan Delaney is a 47 yo male who presented to [facility] on 09/15 for abdominal pain , cramping, and nausea. He was brought to the ICU for hyperglycemia (gluc 706) and BRIDGETTE (Cr 2.2). Pt was treated with insulin infusion and IV fluids. He remained hemodynamically stable overnight and was downgraded out of the ICU the following day. His glucose has remained elevated and the hospital team continues to titrate his Lantus in effects to stabilize the pts DM. Pt is still complaining of abd pain, GI and Rheum were consulted. Pt did not require intubation or invasive monitoring during this admission. Pt remains hemodynamically stable. Consider outpatient follow up in 1 to 2 weeks with: Dr. Delfina Morgan ( Endocrinology) September 23 @ 10:[address] Edgardo Azevedo September 24 @ 10:00 ( Case management has already set up appointments for follow up.) Repeat imaging needed: Per GI Follow up cultures: N/A Reviewed progress notes, labs, and inpatient medication list Continue current management Additional recommendations: None Pt remains stable, CCM will sign off at this time. Thank you for including us in the care of this patient; please feel free to reconsult as needed. Consults & Procedures Consultants: Cardiology: Dr. Gonzales GI: Dr. Rangel Rheum: Dr. Figueroa Procedures: None
[2017-09-17 23:20] VITALS: BP 110/70; PULSE 77; TEMP 36.9; O2SAT 95
--- NOTE | 2017-09-18 00:44 | Hospitalist Progress Note ---
Hospitalist Progress Note Date of Service Sep 17, 2017. Subjective Pt evaluation today including: conversation w/ patient, conversation w/ network consultant (GI), review of inpatient medication list Pt reports he is still having diffuse myalgias and muscle cramps especially in his hamstrings. States that the oxycodone 5mg tabs are not helping enough for the pain. Also he states flexeril has helped him in the past. He has a 10 year h /o myalgias and cramping that waxes and wanes. He feels like it was more manageable until the last month when he started having the polyuria, polydipsia , and weight loss associated with his hyperglycemia. He reports having a muscle biopsy with [facility] in 2015 but thinks the results were inconclusive. He also reports seeing some sort of Muscular Specialist at [facility] [place] at that time who ran a bunch of tests and then told him they did not know what was wrong with him. He does not recall ever seeing a Core Java Software Engineer. Denies joints pains except knees. 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 His mother of a ruptured cerebral aneurysm at age 33; his father of a traumatic head injury in his early 40s and had depression and EtOH-ism. Siblings have no health problems. No autoimmune problems in the family. Glucose readings still inthe 200s-300s at times today Constitutional: + weight loss, + fatigue, No fever Eyes: No problem reported ENT: No problem reported Respiratory: No problem reported Cardiovascular: + chest pain (some muscle cramping in chest) Breast: + problem reported Abdomen: + pain (in abdominal muscles) Musculoskeletal: + joint pain (chronic in knees only), + muscle pain Male : No problem reported Neurologic: No problem reported Psychiatric: + depression symptoms, + anxiety, + insomnia Heme: + clotting problems Endo: No excessive thirst, No excessive urination Skin: No rash All Other Systems: Reviewed and Negative Objective Vital Signs Date Time Temp Pulse Resp B/P (MAP) Pulse Ox O2 Delivery O2 Flow Rate FiO2 09/18/17 00:00 Room Air 09/17/17 23:20 36.9 77 18 110/70 (83) 95 Room Air 09/17/17 20:00 Room Air 09/17/17 16:00 Room Air 09/17/17 15:25 37.1 86 18 107/66 (80) 95 Room Air 09/17/17 08:00 Room Air 09/17/17 07:25 36.6 74 12 106/71 (83) 96 Room Air Physical Exam General Appearance: WD/WN, no apparent distress Eyes: normal inspection, sclerae normal ENT: hearing grossly normal Neck: trachea midline Respiratory/Chest: lungs clear, normal breath sounds, no respiratory distress, no accessory muscle use Cardiovascular: regular rate, rhythm, no edema, no gallop, no murmur Abdomen: normal bowel sounds, soft, + tenderness (diffusely without guarding) Extremities: no pedal edema, + pertinent finding (+TTP over all muscle groups palpated in upper and lower extremities as well as back and torso) Neurologic/Psychiatric: alert, normal mood/affect, oriented x 3 Skin: normal color, warm/dry, no rash Lymphatic: no adenopathy Laboratory Results Last 24 Hours Test 09/17/17 03:01 09/17/17 06:37 09/17/17 07:43 09/17/17 07:54 Bedside Glucose 231 mg/dl 223 mg/dl White Blood Count 4.40 K/uL Red Blood Count 4.05 M/uL Hemoglobin 12.1 g/dL Hematocrit 36.1 % Mean Corpuscular Volume 89.1 fL Mean Corpuscular Hemoglobin 29.9 pg Mean Corpuscular Hemoglobin Concent 33.5 g/dl RDW Standard Deviation 45.9 fL RDW Coefficient of Variation 14.0 % Platelet Count 119 K/uL Mean Platelet Volume 12.6 fL Platelet Estimate NORMAL Sodium Level 133 mmol/L Potassium Level 4.1 mmol/L Chloride Level 99 mmol/L Carbon Dioxide Level 29 mmol/L Anion Gap 5.0 mmol/L Blood Urea Nitrogen 13 mg/dl Creatinine 1.32 mg/dl Est Creatinine Clear Calc Drug Dose 100.6 ml/min Estimated GFR () 75.0 Estimated GFR (Non- 64.7 BUN/Creatinine Ratio 9.6 Random Glucose 228 mg/dl Calcium Level 8.2 mg/dl Phosphorus Level 2.0 mg/dl Magnesium Level 2.3 mg/dl Total Bilirubin 0.7 mg/dl Direct Bilirubin 0.3 mg/dl Aspartate Amino Transf (AST/SGOT) 705 U/L Alanine Aminotransferase (ALT/SGPT) 489 U/L Alkaline Phosphatase 146 U/L Total Creatine Kinase 576 U/L Total Protein 7.3 gm/dl Albumin 2.9 gm/dl Lipase 331 U/L Prothrombin Time 12.0 SECONDS Prothromb Time International Ratio 1.1 Test 09/17/17 11:16 09/17/17 16:08 09/17/17 20:12 Bedside Glucose 312 mg/dl 193 mg/dl 222 mg/dl Assessment and Plan This pt is a 47 y/o male with a history of uncontrolled DM II, HTN, hypertriglyceridemia, unspecified myositis, CKD stage III, chronic recurrent 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 BSG 706 and had HHS. Pt was given IVF and started on insulin drip. Also with dehydration and BRIDGETTE with Creatinine 2.22. LFTs elevated but improved from last admission. Troponin negative. Hyperglycemia/HHS, h/o uncontrolled DM II- HgbA1C >16% here and was 10% 6 weeks ago at last admission. Not compliant with short acting insulin, but obviously also needs improved control of glucose with higher dose of Lantus as well. Has received diabetic education. Continues to have hyperglycemia in 200s-300s -Admitted to ICU on insulin gtt, improved and transferred to medical floor -increase Lantus to 45 units in AM and 55 units in PM based on total requirement of daily insulin with half being in long acting form--> continue to titrate up as needed -continue accuchecks qachs -Pseudohyponatremia with sodium of 116 and Corrected sodium 128 on admission. Received large amounts of IVFs and Na+ improved -needs close PCP follow up and Endocrine as outpt -cannot be on statin due to myositis Myositis/Myalgias/Elevated AST/ALT/CPK/Fatty liver--> ongoing for many years, waxing and waning, exacerbated currently by severe dehydration with HHS, 40 lb weight loss from hyperglycemia. CPK and ALT, AST elevated for 8 years in our records. Previous muscle biopsy performed, results not available but were not telling as per pt. Having diffuse pains. Has not yet seen Rheumatology that he is aware of. Has Lupus anticoagulant positive x 1 in the past, hypercoagulable state with h/ o recurrent PEs. CPK elevated to 500s-600s or higher for many years, currently 576 AST and ALT elevated which is likely a combo of myositis and fatty liver, while TBili normal and Alk phos actually almost normal Hepatitis panel negative. Abd US here is consistent with fatty liver, had gallbladder sludge, no portal vein thrombosis -restart IVFs for hydration -Consult Rheumatology for further workup for myositis and hypercoagulable disorder -consult GI for further evaluation of fatty liver and elevated LFTs -follow AST/ALT/CPK -increase oxycodone to 10mg po q4 h prn pain for now -add on flexeril for muscle cramping -may need liver bx at some point Acute renal failure on CKD stage III -Baseline creatinine 1.3 -Creatinine 2.22 on arrival -IVF were given as above, auricular detoxification specialist improved to 1.3 today -Holding lisinopril and metformin for now -follow PRP Abdominal pain-epigastric and more diffuse in all abdominal muscles. Lipase initially mildly elevated and now normal despite persistent pain which is likely his myositis. He has h/o PUD but had recent EGD in 07/2017 that was normal. -continue PPI -add on GI cocktail as needed Suspected OHS/MEAGAN - Desaturating at night + clear snoring at bedside evaluation - Outpatient evaluations recommended for formal sleep study -overnight oximetry prior to discharge to see if qualifies for nocturnal O2 Chest pain--reproducible w/palpation, troponins negative. ST elevations on EKG are chronic and EKG actually improved compared to Jul 2017. Noncardiac and again likely related to myositis -Cardiology consulted, appreciate recs: No need to repeat echo as just had one 1 month ago -Echo 07/22/17 showed LVEF of 60-65%, no WMA. No significant valvular pathology. Normal LV and RV size and function. HTN--stable -Lisinopril on hold due to ARF -Continue metoprolol succinate 150 mg PO qd H/o recurrent PEs--stable, not tachycardic or hypoxic. Has lupus anticoagulant positive x 1, all other hypercoag workup in our system is negative. Seen by Dr. Baig at [facility] in the past -Continue Xarelto 20 mg PO qd Thrombocytopenia-mild today, plts down to 119 -could be related to liver issues? -follow CBC Anxiety/depression, ADHD--stable -Continue Lexapro 30 mg PO qd and Xanax 1 mg PO TID -continue stimulant drug DVT prophylaxis -Xarelto GI Prophylaxis: - Protonix Code Status -Level I, FULL RESUSCITATION STATUS Dispo- to home in 1-2 days when glucose under better control and after Rheum eval for elevated muscle enzymes
[2017-09-18] MEDS: SODIUM CHLORIDE 0.9% 1000ML 1,000 ML IV SCH ×3 (01:21→21:20)
[2017-09-18 06:47] LABS: HEMATOCRIT 35.5 % (42-52); MEAN CELL VOLUME 90.8 fL (80-100); MEAN CORPUSCULAR HEMOGLOBIN 29.7 pg (25-34); MEAN CORPUSCULAR HGB CONC 32.7 g/dl (32-36); MEAN PLATELET VOLUME 13.4 fL (7.4-10.4); PLATELET COUNT 108 K/uL (130-400); RED BLOOD COUNT 3.91 M/uL (4.7-6.1)
[2017-09-18 06:50] LABS: BASO % 0.3 %; BASO ABS # 0.01 K/uL (0-0.2); COMPLETE YES; EOS % 2.2 %; LYMPH % 61.1 %; LYMPH ABS # 2.26 K/uL (1.2-3.4); MONO % 5.9 %; NEUT % 30.5 %
[2017-09-18 07:01] VITALS: BP 112/67; PULSE 70; TEMP 36.6; O2SAT 94
[2017-09-18 07:19] LABS: BUN/CREATININE RATIO 6.2 (10-20); CALCIUM 7.8 mg/dl (8.5-10.1); CREATININE 1.37 mg/dl (0.60-1.40); MAGNESIUM 2.3 mg/dl (1.8-2.4); PHOSPHORUS 1.8 mg/dl (2.5-4.9); POTASSIUM 4.7 mmol/L (3.5-5.1)
--- NOTE | 2017-09-18 07:20 | GASTROINTESTINAL CONSULTATION ---
DATE OF CONSULTATION: 09/17/2017 CHIEF COMPLAINT: Abnormal liver function tests, chest pressure, reflux. REQUESTING PHYSICIAN: Charley Gallardo MD. HISTORY OF PRESENT ILLNESS: Mr. Delaney is a 47-year-old -Chinese male known to me from a prior hospitalization for a similar presentation. The patient was admitted on September 15 for abdominal pain, excessive urination, weight loss. The patient was admitted with findings suggesting of a marked hyperglycemia, profound weight loss over 41 pounds over the past month. He also has anorexia. The patient has had a longstanding history of abnormal CKPs, felt to be related to skeletal muscle myositis. He has also had abnormal liver tests. The patient has symptoms of diffuse body aches, although some of his symptoms also reflect epigastric discomfort and also a substernal chest pressure and pain for which there is no specific evidence for an active cardiac issue per his consultation. The patient is on Protonix chronically and this does seem to help reflux symptoms. He does not believe that the current symptoms that he experience that present as a band-like chest pressure at times are reflux related specifically. He denies odynophagia, dysphagia. He has not reported any melena or bright red blood per rectum. PAST MEDICAL HISTORY: Extensive and includes acute kidney injury, anxiety, DVTs and PEs, chest pain, diffuse skeletal muscle pain, depression, chronically elevated CPK, essential hypertension, GERD, hemoptysis, history of esophageal ulceration. PAST SURGICAL HISTORY: He had a colonoscopy and EGD. In June 2014, there was an esophageal ulcer, bleeding ulcer along with esophagitis and in the calendar year 2013. He did undergo a recent upper endoscopy. FAMILY HISTORY: Significant for blood clots and mother who at age 32 from a brain aneurysm. SOCIAL HISTORY: The patient denies tobacco or alcohol use. He is single, lives alone. ALLERGIES: INCLUDE IODINE, SHELLFISH, ACETAMINOPHEN, HYDROCODONE. CURRENT HOME MEDICATIONS: Include Xanax, Lexapro, Lantus, lisinopril, Glucophage, Ritalin, Protonix, Xarelto and Ambien. REVIEW OF SYSTEMS: Otherwise noncontributory based on 13-point exam except for mentioned above. The patient denies any vomiting, hematemesis or coffee-ground emesis but does report abdominal pain along with chest pain. PHYSICAL EXAMINATION: VITAL SIGNS: At the present time afebrile at 37.1, blood pressure 107/66, respirations 18, 95% on room air, heart rate 86. GENERAL: The patient is awake, alert and oriented x3. HEENT: Sclerae are anicteric, conjunctiva moist. Oral mucosa moist. HEART: Normal S1, S2. LUNGS: Clear to auscultation. ABDOMEN: Soft, mildly tender in the epigastrium without rebound or guarding. There is no costochondral or costal margin tenderness. There was noted tenderness along with palpation over the sternum. EXTREMITIES: Without clubbing, cyanosis. Trace edema. RECTAL: Deferred. LABORATORY STUDIES: On admission showed a white count of 5.7, this is now 4.4, hemoglobin was 15.2, down to 12.1 with hydration, platelet count 177 down to 119 today. Serum chemistries today sodium 133, BUN and creatinine are 13 and 1.3. Blood sugars are averaging mid 200 range. Phosphorus low at 2.0, calcium 8.2, total bilirubin 0.7, direct 0.3, AST markedly elevated at 705, ALT 49, alkaline phosphatase 149, total creatinine kinase 576. His albumin is low at 2.9, lipase 331. Urinalysis showed trace ketones and blood, leukocyte esterase and nitrite negative. Hepatitis C antibody, core IgM, hepatitis A IgM and B surface antigen are all negative. Imaging studies on admission showed a chest x-ray that was negative. A liver ultrasound that demonstrated no evidence for portal or hepatic vein thrombosis and an abdominal ultrasound that revealed increased hepatic echogenicity consistent with steatosis, no evidence of ductal dilation. There is a small amount of sludge in the gallbladder without shadow. The liver panel trend since admission showed a rise in his liver enzymes since admission at which time they were total indirect bilirubin of 0.9 and 0.4, AST of 171. On 09/15/2017, ALT 254, alkaline phosphatase 225. Total protein is markedly elevated at 9.8, although some of these numbers may reflect a hyperosmolar state given his hyperglycemia, bicarbonate was normal on admission, although his sodium and chloride were markedly diminished. IMPRESSION AND PLAN: Mr. Delaney is a complex medical case with multiorgan effects including diffuse myositis of unclear origin, poorly controlled diabetes, abnormal LFTs that appear mostly in a hepatocellular pattern, although there is alkaline phosphatase elevation that could suggest infiltrative cholestatic process. Infiltrative process such as amyloid should also be considered. At the present time, liver biopsy would not be warranted given his anticoagulation requirement, although this may need to be considered at some point if these values persistent no other source is identified especially as his other metabolic derangements are brought into a more stable pattern. The source of the patient's chest discomfort is unclear. On June 13, the patient did have an upper endoscopy by Dr. Rangel which revealed a normal examination. Reflux may be an issue, although chest wall tenderness due to his diffuse myositis may be a culprit. I believe it is reasonable to continue his Protonix as well as a GI cocktail on an as needed basis for these events of chest pressure and chest discomfort to see if this can curb any breakthrough reflux that may be happening. At the present time, I do not see a need to perform an upper endoscopy given his recent results of a normal EGD in June. However, this may change depending on symptoms. We would carefully monitor his liver function tests. Ultimately, an MR may be necessary. We will review his prior laboratory studies and see if I can obtain any information from his [facility] workup regarding rheumatologic assessment. All questions answered. We will follow with you.
[2017-09-18 07:29] LABS: BETA-HYDROXYBUTYRATE 2.17 mg/dL (0.2-2.81)
[2017-09-18] MEDS ORDERED: INSULIN ASPART 100 UNITS/ML 3 ML PEN SC ONE (08:00)
[2017-09-18] MEDS: ALPRAZOLAM 0.5 MG TAB PO SCH ×3 (08:36→19:40)
[2017-09-18] MEDS: METHYLPHENIDATE HCL 10 MG TAB PO SCH ×2 (08:36→17:22)
[2017-09-18] MEDS: ESCITALOPRAM OXALATE 10 MG TAB PO SCH (08:36)
[2017-09-18] MEDS: METOPROLOL SUCC 50MG EXT REL TAB PO SCH (08:36)
[2017-09-18] MEDS: PANTOprazole SOD 40 MG TAB PO SCH (08:37)
[2017-09-18] MEDS ORDERED: PHARMACY GLYCEMIC MGMT CONSULT PRN (08:39)
[2017-09-18] MEDS ORDERED: INSULIN GLARGINE SOLOSTAR 100 UNITS/ML 3 ML PEN SC SCH ×2 (09:00)
[2017-09-18] MEDS: INSULIN ASPART 100 UNITS/ML 3 ML PEN SC SCH ×4 (09:02→19:40)
--- NOTE | 2017-09-18 11:09 | Pharmacy Progress Note ---
Glycemic Control Intl Consult Date of Service Sep 18, 2017. Scope Glycemic Pharmacist consulted by Dr Painting on 09/18/17 for glycemic control and to write orders per [facility] inpatient glycemic control protocol Objective Weight (Kilograms): 127.400 Accuchecks BSG (last 24hrs): Test 09/17/17 11:16 09/17/17 16:08 09/17/17 20:12 09/18/17 06:03 Bedside Glucose 312 mg/dl (70-99) 193 mg/dl (70-99) 222 mg/dl (70-99) Random Glucose 370 mg/dl (70-99) Test 09/18/17 07:28 Bedside Glucose 295 mg/dl (70-99) Laboratory Data (last 24hrs) Test 09/18/17 06:03 Anion Gap 3.0 mmol/L BUN/Creatinine Ratio 6.2 Blood Urea Nitrogen 9 mg/dl Creatinine 1.37 mg/dl Potassium Level 4.7 mmol/L Sodium Level 134 mmol/L White Blood Count 3.70 K/uL Red Blood Count 3.91 M/uL Hemoglobin 11.6 g/dL Hematocrit 35.5 % Mean Corpuscular Volume 90.8 fL Mean Corpuscular Hemoglobin 29.7 pg Mean Corpuscular Hemoglobin Concent 32.7 g/dl Platelet Count 108 K/uL Mean Platelet Volume 13.4 fL Neutrophils (%) (Auto) 30.5 % Lymphocytes (%) (Auto) 61.1 % Monocytes (%) (Auto) 5.9 % Eosinophils (%) (Auto) 2.2 % Basophils (%) (Auto) 0.3 % Neutrophils # (Auto) 1.13 K/uL Lymphocytes # (Auto) 2.26 K/uL Monocytes # (Auto) 0.22 K/uL Eosinophils # (Auto) 0.08 K/uL Basophils # (Auto) 0.01 K/uL HbA1c Test 09/15/17 11:45 Hemoglobin A1c > 16.9 % (4.5-5.6) H Recent Pertinent Medications Outpatient Anti-diabetic Regimen: * Lantus 50 units qHS * Novolog 12 units with meals * Metformin 500 mg daily The patient is currently receiving: * Basal insulin: Lantus 40 units in the AM, 55 units in the PM * Correctional Insulin: Novolog Correction per scale ACHS Goal Range: Low 140 mg/dL - High 180 mg/dL Correction Factor: 10 mg/dL/unit * Prandial insulin: Per carb ratio of 1 unit per 4 grams CHO consumed * Oral Agents: None at this time Risk Factors for Insulin Resistance: * Diet: type 2 diabetes - ave of 60 gm CHO with each meal * Baseline insulin resistance with significantly elevated A1c Assessment & Plan ASSESSMENT: * 47 y/o male admitted with HHS, poorly controlled diabetes with significantly elevated A1c * He was initiated on an insulin infusion which was transitioned to SQ on 09/16. Since then, SQ insulin regimen has been adjusted to control BSGs * Yesterday, he received 164 units of insulin with BSGs ranging from 193-370 mg/ dL in the past 24 hours * No changes to stressors from yesterday to today * Anticipate total daily insulin dose to be ~200 units/day * Physician already increased the Lantus dose which I am in agreement with * Will plan to tighten CF/CR to be consistent with this PLAN FOR INPATIENT GLYCEMIC CONTROL: * Continue with Lantus 55 units BID - increased by provider this AM * Continue Novolog ACHS * Goal 140-180 (okay for now since patient has been used to much higher BSGs) * TIGHTEN CF to 8 * TIGHTEN CR to 3 * Spoke with the nurse this AM and told her to not give the 10 units of Novolog that was ordered, but to instead follow the tightened Novolog scale * Can consider resuming metformin (recommend increasing to 500 mg BID) if SCr remains stable and no plans for upcoming procedures Discharge Recommendations: * Insulin requirements still being determined but at this point, would recommend : * Levemir 50 units BID (CDE reports patient's insurance has a limit of 15 mL w / both Lantus and Basaglar; Levemir would be free) * Novolog 20 units with meals * Metformin 500 mg BID Thank you.
[2017-09-18 11:24] VITALS: Ht 188 cm; Wt 128.5 kg
--- NOTE | 2017-09-18 13:02 | Progress Note ---
Subjective Date of Service: Sep 18, 2017. Subjective Pt evaluation today including: conversation w/ patient, physical exam, chart review, lab review, review of studies, review of inpatient medication list Pt reports pain in lower back and hamstrings, worse this AM No fevers or chills Resting comfortably in bed No acute events overnight Pain controlled on current regimen Problem List Medical Problems: (1) Acute renal failure (ARF) Status: Acute (2) Anticoagulated by anticoagulation treatment Status: Acute (3) Anxiety Status: Chronic (4) Atypical chest pain Status: Acute (5) CKD (chronic kidney disease), stage III Status: Chronic (6) Contusion of left chest wall Status: Acute (7) Costochondritis Status: Chronic (8) Depression Status: Chronic (9) DKA (diabetic ketoacidoses) Status: Acute (10) Dyspnea Status: Acute (11) Elevated CK Status: Chronic (12) Elevated liver function tests Status: Acute (13) Epigastric abdominal pain Status: Acute (14) Epistaxis Status: Acute (15) Essential hypertension Status: Chronic (16) GERD (gastroesophageal reflux disease) Status: Chronic (17) GI bleeding Status: Acute (18) Headache Status: Acute (19) Headache Status: Acute (20) Hematemesis Status: Acute (21) HHS (hypothenar hammer syndrome) Status: Acute (22) History of esophageal ulcer Permanent Comment: on EGD 06/23/2014 Status: Chronic (23) History of pulmonary embolus (PE) Status: Acute (24) Hx of pulmonary embolus Status: Chronic (25) Hyperlipidemia Status: Chronic (26) Hypertension Status: Chronic (27) Hypoglycemia Status: Acute (28) Hypoglycemia Status: Acute (29) Hyponatremia Status: Acute (30) Intractable vomiting Status: Acute (31) Lactic acidosis Status: Acute (32) Leg pain, left Status: Acute (33) Leg pain, right Status: Acute (34) Myositis Status: Acute (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 (36) Precordial chest pain Status: Acute (37) Prediabetes Status: Chronic (38) Rectal bleeding Status: Acute (39) Rectal bleeding Status: Acute (40) Rhabdomyolysis Status: Acute (41) Rhabdomyolysis Status: Acute (42) Right leg swelling Status: Acute (43) Type 2 diabetes mellitus with hyperosmolar nonketotic hyperglycemia Status: Acute (44) Upper abdominal pain Status: Acute Surgical Problems: (1) H/O colonoscopy Status: Chronic (2) H/O esophagogastroduodenoscopy Permanent Comment: [id number]- esophageal ulcer 06/24/2014- bleeding esophageal ulcer 08/29/2014- Grade B reflux esophagitis 11/21/2014- mild-moderate inflammation Status: Chronic (3) History of muscle biopsy Status: Chronic (4) History of rectal surgery Status: Chronic (5) S/P cardiac catheterization Permanent Comment: 2012- normal coronary arteries Status: Chronic Review of Systems Constitutional: No fever, No chills, No sweats, No weakness Eyes: No worsening of vision, No eye pain, No redness, No discharge ENT: No hearing loss, No unusual epistaxis, No nasal symptoms, No sore throat Respiratory: No cough, No sputum, No wheezing, No shortness of breath Cardiac: No chest pain, No orthopnea, No PND, No edema Abdomen: No pain, No nausea, No vomiting, No diarrhea, No constipation Musculoskeletal: + muscle pain, No joint pain, No swelling, No calf pain Male : No dysuria, No urinary frequency, No incontinence, No slowing stream Neurologic: No memory loss, No paralysis, No weakness, No numbness/tingling Psychiatric: No depression symptoms, No anhedonism, No anxiety Endo: No fatigue, No excessive thirst, No excessive urination Skin: No rash, No itch, No new/changing skin lesions Objective Vital Signs Date Time Temp Pulse Resp B/P (MAP) Pulse Ox O2 Delivery O2 Flow Rate FiO2 09/18/17 08:00 Room Air 09/18/17 07:01 36.6 70 18 112/67 (82) 94 Room Air 09/18/17 00:00 Room Air 09/17/17 23:20 36.9 77 18 110/70 (83) 95 Room Air 09/17/17 20:00 Room Air 09/17/17 16:00 Room Air 09/17/17 15:25 37.1 86 18 107/66 (80) 95 Room Air Physical Exam General Appearance: WD/WN, no apparent distress Eyes: normal inspection, PERRL, EOMI, sclerae normal Neck: supple, no adenopathy, thyroid normal, no JVD Respiratory/Chest: chest non-tender, lungs clear, normal breath sounds, no respiratory distress Cardiovascular: regular rate, rhythm, no edema, no gallop, no JVD Abdomen: normal bowel sounds, non tender, soft, no organomegaly Extremities: normal range of motion, non-tender, normal inspection, no pedal edema Neurologic/Psychiatric: no motor/sensory deficits, alert, normal mood/affect, oriented x 3 Laboratory Results Last 24 Hours Test 09/17/17 16:08 09/17/17 20:12 09/18/17 06:03 09/18/17 06:08 Bedside Glucose 193 mg/dl 222 mg/dl White Blood Count 3.70 K/uL Red Blood Count 3.91 M/uL Hemoglobin 11.6 g/dL Hematocrit 35.5 % Mean Corpuscular Volume 90.8 fL Mean Corpuscular Hemoglobin 29.7 pg Mean Corpuscular Hemoglobin Concent 32.7 g/dl Platelet Count 108 K/uL Mean Platelet Volume 13.4 fL Neutrophils (%) (Auto) 30.5 % Lymphocytes (%) (Auto) 61.1 % Monocytes (%) (Auto) 5.9 % Eosinophils (%) (Auto) 2.2 % Basophils (%) (Auto) 0.3 % Neutrophils # (Auto) 1.13 K/uL Lymphocytes # (Auto) 2.26 K/uL Monocytes # (Auto) 0.22 K/uL Eosinophils # (Auto) 0.08 K/uL Basophils # (Auto) 0.01 K/uL RDW Standard Deviation 46.5 fL RDW Coefficient of Variation 14.2 % Immature Granulocyte % (Auto) 0.0 % Immature Granulocyte # (Auto) 0.00 K/uL Sodium Level 134 mmol/L Potassium Level 4.7 mmol/L Chloride Level 101 mmol/L Carbon Dioxide Level 29 mmol/L Anion Gap 3.0 mmol/L Blood Urea Nitrogen 9 mg/dl Creatinine 1.37 mg/dl Est Creatinine Clear Calc Drug Dose 96.6 ml/min Estimated GFR () 71.7 Estimated GFR (Non- 61.8 BUN/Creatinine Ratio 6.2 Random Glucose 370 mg/dl Calcium Level 7.8 mg/dl Phosphorus Level 1.8 mg/dl Magnesium Level 2.3 mg/dl Total Bilirubin 0.5 mg/dl Direct Bilirubin 0.2 mg/dl Aspartate Amino Transf (AST/SGOT) 631 U/L Alanine Aminotransferase (ALT/SGPT) 518 U/L Alkaline Phosphatase 196 U/L Total Creatine Kinase 421 U/L Total Protein 7.1 gm/dl Albumin 2.8 gm/dl Beta-Hydroxybutyric Acid 2.17 mg/dL Venous Blood pH 7.36 Test 09/18/17 07:28 09/18/17 11:36 Bedside Glucose 295 mg/dl 339 mg/dl Assessment and Plan This pt is a 47 y/o male with a history of uncontrolled DM II, HTN, hypertriglyceridemia, unspecified myositis, CKD stage III, chronic recurrent PEs 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 BSG 706 and had HHS. Pt was given IVF and started on insulin drip. Also with dehydration and BRIDGETTE with Creatinine 2.22. LFTs elevated but improved from last admission. Troponin negative. Hyperglycemia/HHS, h/o uncontrolled DM II- HgbA1C >16% here and was 10% 6 weeks ago at last admission. Not compliant with short acting insulin, but obviously also needs improved control of glucose with higher dose of Lantus as well. Has received diabetic education. Continues to have hyperglycemia in 200s-300s -Admitted to ICU on insulin gtt, improved and transferred to medical floor -Increase Lantus to 65 units BID per pharmacist rec, still uncontrolled, restart on metformin -continue accuchecks qachs -Pseudohyponatremia with sodium of 116 and Corrected sodium 128 on admission. Received large amounts of IVFs and Na+ improved -needs close PCP follow up and Endocrine as outpt -cannot be on statin due to myositis Myositis/Myalgias/Elevated AST/ALT/CPK/Fatty liver--> ongoing for many years, waxing and waning, exacerbated currently by severe dehydration with HHS, 40 lb weight loss from hyperglycemia. CPK and ALT, AST elevated for 8 years in our records. Previous muscle biopsy performed, results not available but were not telling as per pt. Having diffuse pains. Has not yet seen Rheumatology that he is aware of. Has Lupus anticoagulant positive x 1 in the past, hypercoagulable state with h/ o recurrent PEs. CPK elevated to 500s-600s or higher for many years, currently 576 AST and ALT elevated which is likely a combo of myositis and fatty liver, while TBili normal and Alk phos actually almost normal Hepatitis panel negative. Abd US here is consistent with fatty liver, had gallbladder sludge, no portal vein thrombosis -restart IVFs for hydration -Consult Rheumatology for further workup for myositis and hypercoagulable disorder -consult GI for further evaluation of fatty liver and elevated LFTs -follow AST/ALT/CPK -cont oxycodone to 10mg po q4 h prn pain for now -cont flexeril for muscle cramping Acute renal failure on CKD stage III -Baseline creatinine 1.3 -Creatinine 2.22 on arrival -Holding lisinopril and metformin for now, can resume at this time Abdominal pain-epigastric and more diffuse in all abdominal muscles. Lipase initially mildly elevated and now normal despite persistent pain which is likely his myositis. He has h/o PUD but had recent EGD in 07/2017 that was normal. -continue PPI -add on GI cocktail as needed, GI eval completed, no EGD at this time, cont PPI Suspected OHS/MEAGAN - Desaturating at night + clear snoring at bedside evaluation - Outpatient evaluations recommended for formal sleep study -overnight oximetry prior to discharge to see if qualifies for nocturnal O2 Chest pain--reproducible w/palpation, troponins negative. ST elevations on EKG are chronic and EKG actually improved compared to Jul 2017. Noncardiac and again likely related to myositis -Cardiology consulted, appreciate recs: No need to repeat echo as just had one 1 month ago -Echo 07/22/17 showed LVEF of 60-65%, no WMA. No significant valvular pathology. Normal LV and RV size and function. HTN--stable -Lisinopril on hold due to ARF -Continue metoprolol succinate 150 mg PO qd H/o recurrent PEs--stable, not tachycardic or hypoxic. Has lupus anticoagulant positive x 1, all other hypercoag workup in our system is negative. Seen by Dr. Baig at [facility] in the past -Continue Xarelto 20 mg PO qd Thrombocytopenia-mild today, plts down to 108 - Cont to monitor, no evidence of bleeding, likely hepatic etiology Anxiety/depression, ADHD--stable -Continue Lexapro 30 mg PO qd and Xanax 1 mg PO TID -continue stimulant drug DVT prophylaxis -Xarelto GI Prophylaxis: - Protonix Code Status -Level I, FULL RESUSCITATION STATUS
[2017-09-18] MEDS: OXYCODONE HCL IR 5 MG TAB (IMMEDIATE RELEASE) PO PRN ×3 (14:01→23:19)
[2017-09-18 15:55] VITALS: BP 115/72; PULSE 71; TEMP 36.9; O2SAT 94
--- NOTE | 2017-09-18 16:56 | Rheumatology Consultation ---
Rheumatology Consultation Date of Consultation: Sep 18, 2017. Reason for Consultation: chronic elevation of muscle enzymes,myalgias and history of PE on Xarelto History of Present Illness patient was admitted for DKA,in to the ICU , patient has had a history of elevated cpk for over 8 years . A biopsy was performed and was sent to the neuromuscular clinic at [facility]. He was told that he did not have an active polymyositis of his muscles and that he did not require any specific treatment at this time. His enzymes today were 451. He has no muscle weakness. He complains of muscle twitching and achiness. These symptoms are not part of an inflammatory myositis. He has had a full autoimmune work up in the past twice and all of the work up was negative. Other than his diabetes related symptoms he does not have any other symptoms associated with an autoimmune disease. He has had multiple PE and an anticoagulant and is on Xarelto. Past Medical/Surgical History Medical History: chronic back pain, diabetes Surgical History: no surgical history Family History he has no history of an autoimmune disease Social History Smoking Status: Never Smoker History of Alcohol Use: Yes (beer-seldom) Drug Use: none Marital Status: single Housing Status: lives alone Occupation Status: disabled Review of Systems Constitutional: + weight loss (40pound), No see HPI, No fever, No chills, No sweats, No weakness, No fatigue, No problem reported Eyes: No see HPI, No worsening of vision, No eye pain, No redness, No discharge , No diplopia, No problem reported ENT: No see HPI, No hearing loss, No unusual epistaxis, No nasal symptoms, No sore throat, No tinnitus, No dental problems, No trouble swallowing, No problem reported Respiratory: No see HPI, No cough, No sputum, No wheezing, No shortness of breath, No dyspnea on exertion, No dyspnea at rest, No hemoptysis, No problem reported Cardiac: No see HPI, No chest pain, No orthopnea, No PND, No edema, No claudication, No palpitations, No problem reported Musculoskeletal: + joint pain (her has some mild rib pain), + muscle pain ( generalized muscle tenderness and twitching that has lessened with the correction of his DKA) Male : No see HPI, No dysuria, No urinary frequency, No incontinence, No nocturia more than once/night, No slowing stream, No hematuria, No sexual dysfunction, No problem reported Neurologic: No see HPI, No memory loss, No paralysis, No weakness, No numbness/ tingling, No vertigo, No balance problems, No problem reported Psychiatric: No see HPI, No depression symptoms, No anhedonism, No anxiety, No insomnia, No substance abuse, No problem reported Endo: + see HPI Skin: No see HPI, No rash, No itch, No new/changing skin lesions, No color change, No bleeding, No problem reported patient has good motor strength 02/14 throughout Allergies Coded Allergies: Iodine (Verified Allergy, Severe, THROAT SWELLING, 09/15/17) 02/18/13: patient denies IV contrast allergy Patient has been pre-treated in the past with methylprednisolone and diphenhydramine without incident following IV dye administration. Shellfish (Verified Allergy, Severe, THROAT SWELLING, 09/15/17) Iodinated Diagnostic Agents (Verified Allergy, Unknown, swelling, 09/15/17) Plasma, Human (Verified Allergy, Unknown, ANAPHYLAXIS, 09/15/17) Acetaminophen (Verified Adverse Reaction, Unknown, GI ISSUES, 09/15/17) Hydrocodone (Verified Adverse Reaction, Unknown, GI ISSUES, 09/15/17) Medications Current Inpatient Medications Medications (Trade) Dose Ordered Sig/Roxie Route Start Time Stop Time Status Last Admin Dose Admin Ondansetron HCl (Zofran Inj) 4 mg Q6H PRN IV 09/15/17 14:45 10/15/17 14:44 Alprazolam (Xanax Tab) 1 mg TID PO 09/15/17 21:00 10/15/17 20:59 09/18/17 14:01 1 MG Escitalopram Oxalate (Lexapro Tab) 30 mg DAILY PO 09/16/17 09:00 10/16/17 08:59 09/18/17 08:36 30 MG Methylphenidate HCl (Ritalin Tab) 20 mg BID17 PO 09/15/17 17:00 09/29/17 16:59 09/18/17 08:36 20 MG Metoprolol Succinate (Toprol Xl Tab) 150 mg DAILY PO 09/16/17 09:00 10/16/17 08:59 09/18/17 08:36 150 MG Pantoprazole Sodium (Protonix Tab) 40 mg DAILY PO 09/16/17 09:00 10/16/17 08:59 09/18/17 08:37 40 MG Zolpidem Tartrate (Ambien Tab) 10 mg HS PO 09/15/17 21:00 10/15/17 20:59 09/17/17 20:57 10 MG Al Hydrox/Mg Hydrox/Simethicone (Maalox Max Susp) 15 ml Q4H PRN PO 09/15/17 15:15 10/15/17 15:14 Magnesium Hydroxide (Milk Of Magnesia Susp) 30 ml Q12H PRN PO 09/15/17 15:15 10/15/17 15:14 Rivaroxaban (Xarelto Tab) 20 mg DAILYBD PO 09/16/17 13:30 10/16/17 13:29 09/17/17 17:06 20 MG Insulin Aspart (novoLOG ASPART) SLIDING SCALE If CARB RA... ACHS SC 09/16/17 16:00 10/16/17 15:59 09/18/17 12:30 52 UNITS Oxycodone HCl (Roxicodone Immediate Rel Tab) 10 mg Q4H PRN PO 09/17/17 17:00 09/30/17 13:44 09/18/17 14:01 10 MG Cyclobenzaprine HCl (Flexeril Tab) 10 mg TID PRN PO 09/17/17 17:15 10/17/17 17:14 09/17/17 18:06 10 MG Al Hydroxide/Mg Hydroxide/ Lidocaine HCl/ Barcode BID PRN PO 09/17/17 17:30 10/17/17 17:29 Sodium Chloride 1,000 ml @ 100 mls/hr Q10H IV 09/18/17 00:30 10/18/17 00:29 09/18/17 12:30 100 MLS/HR Miscellaneous Information (Consult Glycemic Management Pharmacy) 1 ea UD PRN N/A 09/18/17 08:39 10/18/17 08:38 Insulin Glargine (Lantus Solostar Pen) 65 units BID SC 09/18/17 21:00 10/18/17 20:59 Insulin Aspart (novoLOG ASPART) SLIDING SCALE If CARB RA... 0200 ONCE SC 09/19/17 02:00 09/19/17 02:01 Metformin HCl (Glucophage Tab) 500 mg BIDM PO 09/18/17 17:00 10/18/17 16:59 Physical Exam Date Time Temp Pulse Resp B/P (MAP) Pulse Ox O2 Delivery O2 Flow Rate FiO2 09/18/17 15:55 36.9 71 18 115/72 (86) 94 Room Air 09/18/17 08:00 Room Air 09/18/17 07:01 36.6 70 18 112/67 (82) 94 Room Air 09/18/17 00:00 Room Air 09/17/17 23:20 36.9 77 18 110/70 (83) 95 Room Air 09/17/17 20:00 Room Air General Appearance: WD/WN, no apparent distress Eyes: bilateral eyes normal inspection, bilateral eyes PERRL, bilateral eyes EOMI ENT: normal ENT inspection Neck: supple, no adenopathy Respiratory: chest non-tender, lungs clear, normal breath sounds, no respiratory distress Cardiovascular: regular rate, rhythm, no edema Abdomen: non tender, soft Neurologic/Psychiatric: no motor/sensory deficits, alert, normal mood/affect, oriented x 3 Skin: normal color, warm/dry Lymphatic: no adenopathy Laboratory Results Last 24 Hours Test 09/17/17 20:12 09/18/17 06:03 09/18/17 06:08 09/18/17 07:28 Bedside Glucose 222 mg/dl 295 mg/dl White Blood Count 3.70 K/uL Red Blood Count 3.91 M/uL Hemoglobin 11.6 g/dL Hematocrit 35.5 % Mean Corpuscular Volume 90.8 fL Mean Corpuscular Hemoglobin 29.7 pg Mean Corpuscular Hemoglobin Concent 32.7 g/dl Platelet Count 108 K/uL Mean Platelet Volume 13.4 fL Neutrophils (%) (Auto) 30.5 % Lymphocytes (%) (Auto) 61.1 % Monocytes (%) (Auto) 5.9 % Eosinophils (%) (Auto) 2.2 % Basophils (%) (Auto) 0.3 % Neutrophils # (Auto) 1.13 K/uL Lymphocytes # (Auto) 2.26 K/uL Monocytes # (Auto) 0.22 K/uL Eosinophils # (Auto) 0.08 K/uL Basophils # (Auto) 0.01 K/uL RDW Standard Deviation 46.5 fL RDW Coefficient of Variation 14.2 % Immature Granulocyte % (Auto) 0.0 % Immature Granulocyte # (Auto) 0.00 K/uL Sodium Level 134 mmol/L Potassium Level 4.7 mmol/L Chloride Level 101 mmol/L Carbon Dioxide Level 29 mmol/L Anion Gap 3.0 mmol/L Blood Urea Nitrogen 9 mg/dl Creatinine 1.37 mg/dl Est Creatinine Clear Calc Drug Dose 96.6 ml/min Estimated GFR () 71.7 Estimated GFR (Non- 61.8 BUN/Creatinine Ratio 6.2 Random Glucose 370 mg/dl Calcium Level 7.8 mg/dl Phosphorus Level 1.8 mg/dl Magnesium Level 2.3 mg/dl Total Bilirubin 0.5 mg/dl Direct Bilirubin 0.2 mg/dl Aspartate Amino Transf (AST/SGOT) 631 U/L Alanine Aminotransferase (ALT/SGPT) 518 U/L Alkaline Phosphatase 196 U/L Total Creatine Kinase 421 U/L Total Protein 7.1 gm/dl Albumin 2.8 gm/dl Beta-Hydroxybutyric Acid 2.17 mg/dL Venous Blood pH 7.36 Test 09/18/17 11:36 Bedside Glucose 339 mg/dl Assessment & Plan Assessment & Plan: patient s/p DKA/myalgias and an elevated CPK/ history of clots on Xarelto 1)elevated CKP: This is not new. according to the patient he fluctuates between 400 and 1000 EPK elevation. A prior muscle biopsy was performed and was sent along with the patient to [place] [facility]. According to the patient ,he was told that there was not specific diagnosis and that he did not need specific medication.They would call him if any treatments were developed. He had a full autoimmune disease work up twice and it was completely negative. 2)Recurrent PE and a hypercoagulative state on intermediate Xarelto.If this need further work up . Hematology would be most helpful even if there is a lupus inhibitor. 3)Myalgias: this is usually not seen with a myositis . With myositis one would see weakness only The patient notes cramping. unclear of this etiology I do not have any specific recommendation for this patients the muscle issue has been quantified. I would not recommend treatment as there is not a specific diagnosis form a tertiary neuro muscular center. Return to this center would be appropriate if muscular issue arise.
[2017-09-18] MEDS: RIVAROXABAN 10 MG TAB PO SCH (17:22)
[2017-09-18] MEDS: METFORMIN HCL 500 MG TAB PO SCH (18:12)
[2017-09-18] MEDS: ZOLPIDEM TARTRATE 10 MG TAB PO SCH (19:39)
[2017-09-18] MEDS: INSULIN GLARGINE SOLOSTAR 100 UNITS/ML 3 ML PEN SC SCH (19:42)
[2017-09-18 23:43] VITALS: BP 112/79; PULSE 83; TEMP 36.8; O2SAT 94
[2017-09-19] MEDS ORDERED: INSULIN ASPART 100 UNITS/ML 3 ML PEN SC ONE (02:00)
[2017-09-19] MEDS: OXYCODONE HCL IR 5 MG TAB (IMMEDIATE RELEASE) PO PRN ×2 (06:29→11:43)
[2017-09-19 07:18] VITALS: BP 91/56; PULSE 73; TEMP 36.5; O2SAT 97
[2017-09-19] MEDS: SODIUM CHLORIDE 0.9% 1000ML 1,000 ML IV SCH (07:36)
[2017-09-19] MEDS: ALPRAZOLAM 0.5 MG TAB PO SCH (07:44)
[2017-09-19] MEDS: ESCITALOPRAM OXALATE 10 MG TAB PO SCH (07:45)
[2017-09-19] MEDS: PANTOprazole SOD 40 MG TAB PO SCH (07:45)
--- NOTE | 2017-09-19 07:45 | GASTROENTEROLOGY PROGRESS NOTE ---
DATE: 09/18/2017 This is an inpatient gastroenterology progress note. SUBJECTIVE: The chart reviewed. The patient examined. The patient continues to feel about the same. He found no appreciable benefit from the GI cocktail during episodes of chest discomfort. I reviewed his laboratory studies, which show a white count of 3.7, hemoglobin 11.6, platelets of 108,000. His serum chemistries continue to show markedly elevated blood sugar in the 200 to 300 range and sometimes higher. His liver tests remain elevated with an alkaline phosphatase of 196, ALT 518, and AST 631. Total creatine kinase is 421, phosphorous is low at 1.8, calcium 7.8, BUN and creatinine are 9 and 1.37. Prior LFTs showed a total and direct bilirubin of 0.7 and 0.3 respectively. AST 705, ALT 489, alkaline phosphatase 146. Therefore, some of the liver tests are variable in their pattern, but generally remain elevated in the similar range. CURRENT MEDICATIONS: Include insulin, metformin, cyclobenzaprine, oxycodone, Lexapro, Toprol, Xanax, Ritalin, milk of magnesia, Zofran. REVIEW OF SYSTEMS: Otherwise noncontributory based on 13-point exam except for mentioned above. The patient denies any melena or bright red blood per rectum. IMAGING STUDIES: Since admission, again found no evidence of bile duct dilation, though there is a heterogenous pattern to the liver that suggests hepatic steatosis. There is no evidence for portal or hepatic vein thrombosis on Dopplers. PHYSICAL EXAMINATION: GENERAL: Today, the patient is awake, alert, and oriented x3. HEENT: Sclerae are anicteric. Conjunctivae moist. Oral mucosa moist. HEART: Normal S1 and S2. LUNGS: Clear to auscultation. ABDOMEN: Minimally diffusely tender, although this may reflect the abdominal wall origin and not specifically a visceral source. EXTREMITIES: Without clubbing, cyanosis, or edema. RECTAL: Exam is deferred. LUNGS: Clear to auscultation. HEART: Normal S1 and S2. IMPRESSION: I reviewed the patient's labs and imaging studies. The patient's liver pattern may be multifactorial, although fatty liver and the early development of cirrhosis may be a culprit. His prior endoscopy several weeks did not show evidence of portal hypertension and this certainly is good and there is no evidence for abnormal portal flows based on recent Dopplers. His complex medical history that is multi-systemic presents a challenge for Mr. Delaney in diagnosing. Ultimately, a liver biopsy, I believe is prudent. He has been off of his Xarelto for a period of time, and it may be reasonable to consider a liver biopsy if Radiology is willing to obtain. However, given the complexity of potentially other sources of his transaminase including those of muscle origin, at some point, a referral to Hepatology at [place] may be prudent. Additionally, follow up with the neuromuscular experts down in [place] may also be helpful to see if there are any new thoughts or diagnostics approaches for the patient's diffuse myositis. But until now it is characterized as a nonspecific inflammation. It is unclear of the specific timing of all of this and whether or not it could be related to a medication or medications. Liver biopsy, I believe is ultimately necessary. If percutaneous liver biopsy is not possible, then a transjugular approach may provide an alternatives to minimize bleeding risk. Lastly, it may be helpful for the patient to have an evaluation by Endocrinology to address the challenges with his lipids and diabetes as the lipid management with statins may be problematic with the already elevated CPKs and transaminitis. However, it is possible that with good glycemic control, some of these number may in fact improve and eventually permit some opportunity to use a statin or other lipid lowering agent. We would also obtain a vitamin D level if not recently performed and treat if there is evidence of low vitamin D level. All questions answered to the patient. We would maintain normal electrolytes including magnesium, phosphorous, and potassium.
[2017-09-19] MEDS: CYCLOBENZAPRINE HCL 10 MG TAB PO PRN (08:27)
[2017-09-19] MEDS: METHYLPHENIDATE HCL 10 MG TAB PO SCH (08:27)
[2017-09-19] MEDS ORDERED: SODIUM PHOSPHATE 3 MMOL/1 ML INFUSION IV STA (08:32)
[2017-09-19] MEDS: INSULIN GLARGINE SOLOSTAR 100 UNITS/ML 3 ML PEN SC SCH (08:33)
[2017-09-19] MEDS: INSULIN ASPART 100 UNITS/ML 3 ML PEN SC SCH ×2 (08:33→12:25)
[2017-09-19] MEDS ORDERED: SODIUM PHOSPHATE INJ 24 MMOL in SODIUM CHLORIDE 0.9% 500ML 500 ML IV ONE (08:45)
[2017-09-19] MEDS: METFORMIN HCL 500 MG TAB PO SCH (08:49)
[2017-09-19 09:04] VITALS: BP 107/70; PULSE 102
[2017-09-19] MEDS: METOPROLOL SUCC 50MG EXT REL TAB PO SCH (09:10)
[2017-09-19 10:05] LABS: BUN/CREATININE RATIO 5.2 (10-20); CALCIUM 7.8 mg/dl (8.5-10.1); CREATININE 1.21 mg/dl (0.60-1.40); POTASSIUM 4.3 mmol/L (3.5-5.1)
[2017-09-19 10:09] LABS: ALB/GLOB RATIO 0.7 (0.9-2)
[2017-09-19] MEDS ORDERED: CYCL10TA6 PO (13:03)
[2017-09-19] MEDS ORDERED: OXYC-164 PO (13:03)
[2017-09-19] MEDS ORDERED: GLC500 PO (13:03)
[2017-09-19] MEDS ORDERED: NVLG SC (13:03)
[2017-09-19] MEDS ORDERED: FSTTS EXT (13:03)
[2017-09-19] MEDS ORDERED: LVMI SC (13:03)
--- NOTE | 2017-09-19 13:12 | Discharge Instructions ---
Discharge Instructions Date of Service Sep 19, 2017. Admission Reason for Admission: Acute Renal Failure, Hyperglycemia Discharge Discharge Diagnosis / Problem: Acute renal failure, hyperglycemia Discharge Goals Goal(s): Decrease discomfort, Improve function, Increase independence, Improve disease control, Diagnostic testing, Therapeutic intervention, Prevent Disease Progression Activity Recommendations Activity Limitations: resume your previous activity Exercise/Sports Limitations: as tolerated . Instructions / Follow-Up Instructions / Follow-Up Patient to be discharged home Instructed to adhere to diabetic diet Patient will now take levemir in place of lantus, prescription sent to pharmacy for 50 units twice a day Also increase novolog to 20 units to take before EVERY meal Prescription sent for more test strips as well Finally prescriptions for oxycodone and flexeril, to take as directed Please follow up with Dr Morgan as directed Please follow up with Dr Azevedo in 1 week Current Hospital Diet Patient's current hospital diet: Low Fat Diet, Diabetes Type 2 Diet Discharge Diet Recommended Diet: Diabetes Type 2 Diet, Low Fat Diet Pending Studies Studies pending at discharge: no Laboratory Results Hemoglobin A1c Test 09/15/17 11:45 Range/Units Estimated Average Glucose > 438 mg/dl Hemoglobin A1c > 16.9 H 4.5-5.6 % Lipid Panel Test 09/16/17 03:47 Range/Units Triglycerides Level 333 H 0-150 mg/dl Cholesterol Level 214 H 0-200 mg/dl HDL Cholesterol 27 mg/dl Cholesterol/HDL Ratio 7.9 LDL Cholesterol, Calculated 120 mg/dl Medical Emergencies . Who to Call and When: Medical Emergencies: If at any time you feel your situation is an emergency, please call 911 immediately. . Non-Emergent Contact Non-Emergency issues call your: Primary Care Provider Call Non-Emergent contact if: you have a fever, your pain is worsening, you have any medication questions . . "Provider Documentation" section prepared by Dwayne Painting. . VTE Core Measure Inpt VTE Proph given/why not?: Other Anticoagulation (Xarelto), T.E.DSimona Stockings, SCD's
[2017-09-19 13:55] VITALS: BP 107/70; PULSE 102; TEMP 36.5; O2SAT 97
--- NOTE | 2017-09-19 17:26 | Discharge Summary ---
Discharge Summary Date of Service Sep 19, 2017. Discharge Summary Admission Date: Sep 15, 2017 at 15:25 Discharge Date: Sep 19, 2017 Discharge Disposition: Home Principal Diagnosis: Hyperglycemia Problems/Secondary Diagnoses: (1) Anxiety Status: Chronic (2) CKD (chronic kidney disease), stage III Status: Chronic (3) Costochondritis Status: Chronic (4) Depression Status: Chronic (5) Elevated CK Status: Chronic (6) Essential hypertension Status: Chronic (7) GERD (gastroesophageal reflux disease) Status: Chronic (8) H/O colonoscopy Status: Chronic (9) H/O esophagogastroduodenoscopy Status: Chronic (10) History of esophageal ulcer Status: Chronic (11) History of muscle biopsy Status: Chronic (12) History of rectal surgery Status: Chronic (13) Hx of pulmonary embolus Status: Chronic (14) Hyperlipidemia Status: Chronic (15) Hypertension Status: Chronic (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 (17) Prediabetes Status: Chronic (18) S/P cardiac catheterization Status: Chronic Immunizations: Have You Had Influenza Vaccine: Yes Influenza Vaccine Date: Jul 18, 2013 History of Tetanus Vaccine?: 2008 Tetanus Immunization Date: Aug 21, 2009 History of Pneumococcal: No History of Hepatitis B Vaccine: No Consultations: Endocrine GI Medication Reconciliation New Medications: Glucostix Blood Test Strips (LUXAuch Ultra Control) 1 Ea Strp BOX EXT, #1 Insulin Detemir (Levemir) 100 Units/Ml Inj 50 UNITS SC BID, #1 BOX 5 Refills Oxycodone Hcl (Oxycodone Hcl) 10 Mg Tab 1 TAB PO QID PRN for Pain for 14 Days, #56 TAB Metformin HCl (Metformin HCl) 500 Mg Tab 500 MG PO BIDM, #60 TAB Changed Medications: Insulin Aspart (Novolog) 100 Units/Ml Inj 20 UNITS SC AC, #1 VIAL 3 Refills (Changed from: 12 UNITS; Refills: ) Continued Medications: Alprazolam (Xanax) 1 Mg Tab 1 MG PO TID, TAB Cyclobenzaprine Hcl (Flexeril) 10 Mg Tab 10 MG PO TID PRN for SPASMS, #30 TAB (This prescription has been renewed) Escitalopram (Lexapro) 10 Mg Tab 10 MG PO DAILY for 30 Days, #30 TAB WITH 20MG TAB FOR 30MG DOSE Escitalopram Oxalate (Lexapro) 20 Mg Tab 20 MG PO DAILY for 30 Days, #30 TAB WITH 10MG TAB FOR 30MG DOSE Lisinopril (Lisinopril) 20 Mg Tab 1 TAB PO QAM Methylphenidate (Ritalin) 20 Mg Tab 20 MG PO BID, TAB Metoprolol Succ (Toprol Xl) (Toprol-Xl) 50 Mg Tabcr 150 MG PO DAILY, #30 TAB Pantoprazole (Protonix) 40 Mg Tab 40 MG PO DAILY, #30 TAB Rivaroxaban (Xarelto) 20 Mg Tab 20 MG PO DAILY, TAB Zolpidem Tartrate (Ambien) 10 Mg Tab 10 MG PO HS, TAB 5 Refills Discontinued Medications: Insulin Glargine (Lantus Solostar) 100 Unit/Ml Inj 50 UNITS SC HS Metformin Ext Rel (Glucophage Ext Rel) 500 Mg Tab 500 MG PO DAILY for 30 Days, #30 TAB Oxycodone Ir (Roxicodone Ir) 5 Mg Tab 10 MG PO Q4H PRN for Severe Pain for 3 Days, #24 TAB Discharge Exam Review of Systems: Constitutional: No fever, No chills, No sweats, No weakness ENT: No hearing loss, No unusual epistaxis, No nasal symptoms, No sore throat Respiratory: No cough, No sputum, No wheezing, No shortness of breath Cardiovascular: No chest pain, No orthopnea, No PND, No edema Abdomen: No pain, No nausea, No vomiting, No diarrhea Musculoskeletal: + muscle pain, No joint pain, No swelling, No calf pain Genitourinary - Male: No hematuria, No dysuria, No urinary frequency, No urinary urgency Neurologic: No memory loss, No paralysis, No weakness, No numbness/tingling Psychiatric: No depression symptoms, No anhedonism, No anxiety, No insomnia Endocrine: No fatigue, No excessive thirst Integumentary: No rash, No itch Physical Exam: General Appearance: WD/WN, no apparent distress Eyes: normal inspection, PERRL, EOMI, sclerae normal Neck: supple, no adenopathy, thyroid normal, no JVD Respiratory/Chest: chest non-tender, lungs clear, normal breath sounds, no respiratory distress Cardiovascular: regular rate, rhythm, no edema, no gallop, no JVD Abdomen / GI: normal bowel sounds, non tender, soft, no organomegaly Extremities: normal inspection, no calf tenderness, normal capillary refill , no pedal edema Neurologic/Psychiatric: no motor/sensory deficits, alert, normal mood/affect , normal reflexes Skin: normal color, warm/dry, no rash Lymphatic: no adenopathy Hospital Course This pt is a 47 y/o male with a history of uncontrolled DM II, HTN, hypertriglyceridemia, unspecified myositis, CKD stage III, chronic recurrent PEs on mcc AC with 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 BSG 706 and had HHS. Pt was given IVF and started on insulin drip. Also with dehydration and BRIDGETTE with Creatinine 2.22. LFTs elevated but improved from last admission. Troponin negative. Hyperglycemia/HHS, h/o uncontrolled DM II- HgbA1C >16% here and was 10% 6 weeks ago at last admission. Not compliant with short acting insulin, but obviously also needs improved control of glucose with higher dose of Lantus as well. Has received diabetic education. Continues to have hyperglycemia in 200s-300s -Admitted to ICU on insulin gtt, improved and transferred to medical floor -Increase Lantus to 65 units BID per pharmacist rec, still uncontrolled, restart on metformin but increased to metformin 500 mg PO BID -Switched to levemir 50 mg DC BID, and novolog increased to 20 units with every meal, instructed on adhering to diabetic diet, also f/u with Dr Delfina Morgan on DC -Pseudohyponatremia with sodium of 116 and Corrected sodium 128 on admission. Received large amounts of IVFs and Na+ improved -needs close PCP follow up and Endocrine as outpt -cannot be on statin due to ?myositis Myositis/Myalgias/Elevated AST/ALT/CPK/Fatty liver--> ongoing for many years, waxing and waning, exacerbated currently by severe dehydration with HHS, 40 lb weight loss from hyperglycemia. CPK and ALT, AST elevated for 8 years in our records. Previous muscle biopsy performed, results not available but were not telling as per pt. Having diffuse pains. Has not yet seen Rheumatology that he is aware of. Has Lupus anticoagulant positive x 1 in the past, hypercoagulable state with h/ o recurrent PEs. CPK elevated to 500s-600s or higher for many years, currently 576 AST and ALT elevated which is likely a combo of myositis and fatty liver, while Tbili normal and Alk phos actually almost normal Hepatitis panel negative. Abd US here is consistent with fatty liver, had gallbladder sludge, no portal vein thrombosis -restart IVFs for hydration -Consulted rheumatology, no further w/u at this time, has has autoimmune workup in past and was neg, will likely need to f/u at tertiary care and likely will need neurology workup -GI consulted for further evaluation of fatty liver and elevated LFTs, ? early cirrhosis, no sign or portal HTN or varcies on previous EGD, would best benefit with hepatology w/u at tertiary care -Cont oxycodone to 10mg po q4 h prn pain for now in addition to flexeril Acute renal failure on CKD stage III -Baseline creatinine 1.3 -Creatinine 2.22 on arrival -Holding lisinopril and metformin for now, can resume on DC Abdominal pain-epigastric and more diffuse in all abdominal muscles. Lipase initially mildly elevated and now normal despite persistent pain which is likely his myositis. He has h/o PUD but had recent EGD in 07/2017 that was normal. -continue PPI -add on GI cocktail as needed, GI eval completed, no EGD at this time, cont PPI Suspected OHS/MEAGAN - Desaturating at night + clear snoring at bedside evaluation - Outpatient evaluations recommended for formal sleep study -overnight oximetry prior to discharge to see if qualifies for nocturnal O2 Chest pain--reproducible w/palpation, troponins negative. ST elevations on EKG are chronic and EKG actually improved compared to Jul 2017. Noncardiac and again likely related to myositis -Cardiology consulted, appreciate recs: No need to repeat echo as just had one 1 month ago -Echo 07/22/17 showed LVEF of 60-65%, no WMA. No significant valvular pathology. Normal LV and RV size and function. HTN--stable -Lisinopril on hold due to ARF, see above -Continue metoprolol succinate 150 mg PO qd H/o recurrent PEs--stable, not tachycardic or hypoxic. Has lupus anticoagulant positive x 1, all other hypercoag workup in our system is negative. Seen by Dr. Baig at [facility] in the past -Continue Xarelto 20 mg PO qd Thrombocytopenia-mild today, plts down to 108 - Cont to monitor, no evidence of bleeding, likely hepatic etiology Anxiety/depression, ADHD--stable -Continue Lexapro 30 mg PO qd and Xanax 1 mg PO TID -continue stimulant drug DVT prophylaxis -Xarelto GI Prophylaxis: - Protonix Code Status -Level I, FULL RESUSCITATION STATUS Total Time Spent: Greater than 30 minutes This includes examination of the patient, discharge planning, medication reconciliation, and communication with other providers. Discharge Instructions Please refer to the electronic Patient Visit Report (Discharge Instructions) for additional information. Additional Copies To Edgardo Azevedo D.O.
== END 2017-09-19 14:08 | disposition home or self-care (01) | DRG 638 ==
LOC: C.EDB 10:21 → C.MSICU 15:25 → ENRESERV 15:31 → C.MS2W 09-16 15:31
PROVIDERS: ADMIT Hospitalist; ATTEND Hospitalist
DX: E11.69 Type 2 diabetes mellitus with other specified complication (principal); I27.82 Chronic pulmonary embolism; E87.1 Hypo-osmolality and hyponatremia; N17.9 Acute kidney failure, unspecified; N18.3 Chronic kidney disease, stage 3 (moderate); F32.9 Major depressive disorder, single episode, unspecified; K21.9 Gastro-esophageal reflux disease without esophagitis; E78.5 Hyperlipidemia, unspecified; E11.65 Type 2 diabetes mellitus with hyperglycemia; E11.22 Type 2 diabetes mellitus with diabetic chronic kidney disease; I12.9 Hypertensive chronic kidney disease with stage 1 through stage 4 chronic kidney disease, or unspecified chronic kidney disease; G47.33 Obstructive sleep apnea (adult) (pediatric); E86.0 Dehydration; D69.6 Thrombocytopenia, unspecified; F41.9 Anxiety disorder, unspecified; M79.1 Myalgia; K76.0 Fatty (change of) liver, not elsewhere classified; Z79.4 Long term (current) use of insulin; Z79.899 Other long term (current) drug therapy; Z79.84 Long term (current) use of oral hypoglycemic drugs; Z91.041 Radiographic dye allergy status; Z88.6 Allergy status to analgesic agent

== ENCOUNTER 2017-10-23 23:32 | Emergency (ER) | payer OTHER ==
[~2017-10-23] VITALS: Ht 188 cm; Wt 135.4 kg
[~2017-10-23 23:32] MED LIST changes: +FSTTS EXT; +GLC500 PO; -INSDGIPEN SQ; +LVMI SC; -METFTAB PO; +NVLG SC; -NVLG SQ; -OXYC1TAB3 PO
[2017-10-24 00:05] VITALS: TEMP 36.7; Ht 188 cm; Wt 135.4 kg
[2017-10-24] MEDS ORDERED: SODIUM CHLORIDE 0.9% 500ML 500 ML IV STA (00:50)
--- NOTE | 2017-10-24 01:01 | EMERGENCY ROOM VISIT NOTE ---
History Report prepared by Chad: Yoel Kim Under the Supervision of: Dr. Tiffanie Medrano M.D. First contact with patient: 00:39 Chief Complaint: FALL Stated Complaint: FELL DOWN THE STEPS, NECK, BACK, ARMS HURT History of Present Illness The patient is a 47 year old male who presents to the Emergency Room with complaints of worsening neck and back pain beginning a few days ago. The patient states he slipped and fell down four stairs a few days ago. He reports his pain worsened because he stiffened up. The patient notes he hit his head, neck, and back when he fell. He states he has been dizzy since. The patient reports he took an oxycodone and Flexeril for pain about 13 hours ago. He notes he tried to go to the gym and everything tightened up on him. He states he is on Xarelto for a history with blood clots. The patient reports his last recorded blood sugar was 480 ten hours ago. He notes he doubled his Metformin dose. The patient denies vomiting. Source of History: patient Onset: a few days ago Position: neck, back Timing: worsening Associated Symptoms: + headache, No vomiting Note: Associated symptoms: dizziness, blood sugar of 480 Review of Systems See HPI for pertinent positives & negatives. A total of 10 systems reviewed and were otherwise negative. Past Medical & Surgical Medical Problems: (1) Abdominal pain (2) Abnormal EKG (3) Acute renal failure (4) BRIDGETTE (acute kidney injury) (5) Anxiety (6) Blood clot in vein (7) Chest pain (8) Chest pain (9) Chest wall pain (10) CKD (chronic kidney disease), stage III (11) Costochondritis (12) Depression (13) Diabetes (14) Elevated CK (15) Elevated CK (16) Elevated CPK (17) Essential hypertension (18) Fever and chills (19) GERD (gastroesophageal reflux disease) (20) GI bleed (21) Hemoptysis (22) History of esophageal ulcer (23) History of pleural effusion (24) Hx of pulmonary embolus (25) Hyperglycemia (26) Hyperlipidemia (27) Hypertension (28) Myositis (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 (30) Pharyngitis (31) Pleuritic chest pain (32) Prediabetes (33) Substernal chest pain (34) Suspected pulmonary embolism (35) Transaminitis Surgical Problems: (1) H/O colonoscopy (2) H/O esophagogastroduodenoscopy (3) History of muscle biopsy (4) History of rectal surgery (5) S/P cardiac catheterization Family History Blood clots FH: brain aneurysm MOTHER (mother, age 32) Social History Smoking Status: Never Smoker Alcohol Use: occasionally Drug Use: none Marital Status: single Housing Status: lives alone Occupation Status: disabled Current/Historical Medications Scheduled Alprazolam (Xanax), 1 MG PO TID Escitalopram (Lexapro), 10 MG PO DAILY Escitalopram Oxalate (Lexapro), 20 MG PO DAILY Insulin Aspart (Novolog), 20 UNITS SC AC Insulin Detemir (Levemir), 50 UNITS SC BID Lisinopril (Lisinopril), 1 TAB PO QAM Metformin HCl (Metformin HCl), 500 MG PO BIDM Methylphenidate (Ritalin), 20 MG PO BID Metoprolol Succ (Toprol Xl) (Toprol-Xl), 150 MG PO DAILY Pantoprazole (Protonix), 40 MG PO DAILY Rivaroxaban (Xarelto), 20 MG PO DAILY Zolpidem Tartrate (Ambien), 10 MG PO HS Scheduled PRN Cyclobenzaprine Hcl (Flexeril), 10 MG PO TID PRN for SPASMS Durable Medical Equipment Glucostix Blood Test Strips (kontoblick Ultra Control), BOX EXT Allergies Coded Allergies: Iodine (Verified Allergy, Severe, THROAT SWELLING, 10/24/17) 02/18/13: patient denies IV contrast allergy Patient has been pre-treated in the past with methylprednisolone and diphenhydramine without incident following IV dye administration. Plasma, Human (Verified Allergy, Severe, ANAPHYLAXIS, 10/24/17) Shellfish (Verified Allergy, Severe, THROAT SWELLING, 10/24/17) Iodinated Diagnostic Agents (Verified Allergy, Intermediate, swelling, 09/29) Acetaminophen (Verified Adverse Reaction, Intermediate, GI ISSUES, 10/24/17 ) Hydrocodone (Verified Adverse Reaction, Intermediate, GI ISSUES, 10/24/17) Physical Exam Vital Signs Date Time Temp Pulse Resp B/P (MAP) Pulse Ox O2 Delivery O2 Flow Rate FiO2 10/24/17 02:27 85 19 10/24/17 02:12 88 13 97 10/24/17 02:00 118/64 10/24/17 01:57 89 21 95 10/24/17 01:48 88 18 129/78 97 Room Air 10/24/17 01:22 90 18 97 10/24/17 01:17 90 20 97 10/24/17 01:12 93 20 96 10/24/17 01:10 92 10/24/17 01:07 93 17 96 Room Air 10/24/17 01:00 117/72 10/24/17 00:05 36.7 97 20 136/80 94 Room Air Physical Exam Vital signs reviewed. General: Well-appearing 47 yo male, in no significant distress. HEENT: No scleral icterus, PERRLA, neck supple. Atraumatic. Cardiovascular: Regular rate and rhythm, no extra sounds. Pulmonary: Clear to auscultation bilaterally, normal work of breathing. Abdomen: Soft, nontender, nondistended, positive bowel sounds. Musculoskeletal: Atraumatic, no significant deformity. Mild diffuse tenderness along the lower cervical spine. Tenderness to the low lumbar spine. Thoracic spine was palpated, nontender, no step-off or deformity appreciated. Neurologic: Patient awake alert and oriented x 3, full strength in all 4 extremities. Skin: Warm, dry, no rash. No significant abrasions/laceration. Medical Decision & Procedures ER Provider Diagnostic Interpretation: Per stat rad: CT Head: negative for acute IC abnl CT cervical spine: negative acute fx or subluxation. CT lumbar spine: Negative for acute fx or subluxation. Laboratory Results 10/24/17 01:20 Red Blood Count 4.11, Mean Corpuscular Volume 90.3, Mean Corpuscular Hemoglobin 30.2, Mean Corpuscular Hemoglobin Concent 33.4, Mean Platelet Volume 12.6, Neutrophils (%) (Auto) 43.8, Lymphocytes (%) (Auto) 49.2, Monocytes (%) (Auto) 4.6, Eosinophils (%) (Auto) 2.0, Basophils (%) (Auto) 0.3, Neutrophils # (Auto) 3.07, Lymphocytes # (Auto) 3.45, Monocytes # (Auto) 0.32, Eosinophils # (Auto) 0.14, Basophils # (Auto) 0.02 10/24/17 01:20 Test 10/24/17 01:17 10/24/17 01:20 Bedside Glucose 287 mg/dl (70-99) White Blood Count 7.01 K/uL (4.8-10.8) Red Blood Count 4.11 M/uL (4.7-6.1) Hemoglobin 12.4 g/dL (14.0-18.0) Hematocrit 37.1 % (42-52) Mean Corpuscular Volume 90.3 fL (80-100) Mean Corpuscular Hemoglobin 30.2 pg (25-34) Mean Corpuscular Hemoglobin Concent 33.4 g/dl (32-36) Platelet Count 199 K/uL (130-400) Mean Platelet Volume 12.6 fL (7.4-10.4) Neutrophils (%) (Auto) 43.8 % Lymphocytes (%) (Auto) 49.2 % Monocytes (%) (Auto) 4.6 % Eosinophils (%) (Auto) 2.0 % Basophils (%) (Auto) 0.3 % Neutrophils # (Auto) 3.07 K/uL (1.4-6.5) Lymphocytes # (Auto) 3.45 K/uL (1.2-3.4) Monocytes # (Auto) 0.32 K/uL (0.11-0.59) Eosinophils # (Auto) 0.14 K/uL (0-0.5) Basophils # (Auto) 0.02 K/uL (0-0.2) RDW Standard Deviation 47.3 fL (36.4-46.3) RDW Coefficient of Variation 14.4 % (11.5-14.5) Immature Granulocyte % (Auto) 0.1 % Immature Granulocyte # (Auto) 0.01 K/uL (0.00-0.02) Anion Gap 6.0 mmol/L (3-11) Est Creatinine Clear Calc Drug Dose 113.8 ml/min Estimated GFR () 84.1 Estimated GFR (Non- 72.6 BUN/Creatinine Ratio 5.6 (10-20) Calcium Level 8.2 mg/dl (8.5-10.1) Total Bilirubin 0.4 mg/dl (0.2-1) Direct Bilirubin 0.1 mg/dl (0-0.2) Aspartate Amino Transf (AST/SGOT) 301 U/L (15-37) Alanine Aminotransferase (ALT/SGPT) 216 U/L (12-78) Alkaline Phosphatase 136 U/L (45-117) Total Protein 8.2 gm/dl (6.4-8.2) Albumin 3.3 gm/dl (3.4-5.0) Laboratory results per my review. Medications Administered Medications (Trade) Dose Ordered Sig/Roxie Route Start Time Stop Time Status Last Admin Dose Admin Sodium Chloride 500 ml @ 999 mls/hr Q31M STAT IV 10/24/17 00:50 10/24/17 01:20 DC 10/24/17 01:20 999 MLS/HR Oxycodone HCl (Roxicodone Immediate Rel Tab) 10 mg NOW STAT PO 10/24/17 01:48 10/24/17 01:50 DC 10/24/17 02:02 10 MG Potassium Chloride (Klor-Con M10) 40 meq NOW STAT PO 10/24/17 02:05 10/24/17 02:06 DC 10/24/17 02:44 40 MEQ ED Course 0048: Past medical records reviewed. The patient was evaluated in room A10. A complete history and physical examination was performed. 0050: Ordered Sodium Chloride 500 ml @ 999 mls/hr IV Medical Decision DDx: Intracranial injury, cervical spine injury, intrathoracic injury, intra- abdominal injury, musculoskeletal injury, hyperglycemia, medication noncompliance. This pt was evaluated and appeared to be in no distress. PE is significant for tenderness along the cervical and lumbar spines. Pt is on xaralto, therefore a head CT was performed. This study is negative. CT cervical and lumbar spines were performed and are negative for fx or subluxation. Lab work is stable er baseline, potassium is mildly depleted but likely related to shifts in glucose. Pt was given 10 mg of oxy and 40 MEq of potassium. He was informed of the findings and then stated he had sent his ride home. He drove himself to the ED and he lives>1 hr away. Pt was d/c to the waiting room and advised not to drive. He has an appt with his PCP in the am locally. Pt will return to the ED for worsening of symptoms or any medical concerns. Impression Primary Impression: Fall Additional Impression: Contusion of multiple sites Scribe Attestation The scribe's documentation has been prepared under my direction and personally reviewed by me in its entirety. I confirm that the note above accurately reflects all work, treatment, procedures, and medical decision making performed by me. Departure Information Referrals Edgardo Azevedo D.O. (PCP) Patient Instructions My [facility] Problem Qualifiers
[2017-10-24 01:33] LABS: BASO % 0.3 %; BASO ABS # 0.02 K/uL (0-0.2); EOS ABS # 0.14 K/uL (0-0.5); HEMATOCRIT 37.1 % (42-52); HEMOGLOBIN 12.4 g/dL (14.0-18.0); IG# 0.01 K/uL (0.00-0.02); LYMPH % 49.2 %; LYMPH ABS # 3.45 K/uL (1.2-3.4); MEAN CELL VOLUME 90.3 fL (80-100); MEAN CORPUSCULAR HEMOGLOBIN 30.2 pg (25-34); MEAN CORPUSCULAR HGB CONC 33.4 g/dl (32-36); MEAN PLATELET VOLUME 12.6 fL (7.4-10.4); MONO % 4.6 %; MONO ABS # 0.32 K/uL (0.11-0.59); NEUT % 43.8 %; NEUT ABS # 3.07 K/uL (1.4-6.5); PLATELET COUNT 199 K/uL (130-400); RED CELL DISTRIBUTION WIDTH CV 14.4 % (11.5-14.5); RED CELL DISTRIBUTION WIDTH SD 47.3 fL (36.4-46.3); WHITE BLOOD COUNT 7.01 K/uL (4.8-10.8)
[2017-10-24] MEDS ORDERED: OXYCODONE HCL IR 5 MG TAB (IMMEDIATE RELEASE) PO STA (01:48)
[2017-10-24 01:56] LABS: ALBUMIN 3.3 gm/dl (3.4-5.0); CALCIUM 8.2 mg/dl (8.5-10.1); CREATININE 1.2 mg/dl (0.60-1.40); POTASSIUM 3.2 mmol/L (3.5-5.1)
[2017-10-24 01:59] LABS: TOTAL PROTEIN 8.2 gm/dl (6.4-8.2)
[2017-10-24 02:00] VITALS: BP 118/64
[2017-10-24] MEDS ORDERED: POTASSIUM CHLORIDE 10 MEQ TABCR PO STA (02:05)
[2017-10-24 02:12] VITALS: O2SAT 97
[2017-10-24 02:27] VITALS: PULSE 85
--- NOTE | 2017-10-24 06:33 | DIAGNOSTIC IMAGING REPORT ---
CT HEAD WITHOUT CONTRAST (CT) CLINICAL HISTORY: Head trauma. Patient on anticoagulants. COMPARISON STUDY: 07/22/2017 TECHNIQUE: Axial CT of the brain is performed from the vertex to the skull base. IV contrast was not administered for this examination. A dose lowering technique was utilized adhering to the principles of ALARA. CT DOSE: 1356.40 mGy.cm FINDINGS: No intra or extra-axial mass lesions are visualized. There is no CT evidence of acute cortical infarction. There is no evidence of midline shift. There is no acute hemorrhage. No calvarial fractures are visualized. There is no evidence of pathologic ventricular dilatation. There is no evidence of acute sinusitis IMPRESSION: No acute intracranial findings Electronically signed by: Prakash Flores M.D. 10/24/2017 6:31 AM Dictated Date/Time: 10/24/2017 6:31 AM
--- NOTE | 2017-10-24 07:03 | DIAGNOSTIC IMAGING REPORT ---
CT SCAN OF THE CERVICAL SPINE CLINICAL HISTORY: Fall. COMPARISON STUDY: No priors. TECHNIQUE: CT scan of the cervical spine is performed from the skull base to the upper thoracic spine. Images are reviewed in the axial, sagittal, and coronal planes. IV contrast was not administered for this examination. A dose lowering technique was utilized adhering to the principles of ALARA. FINDINGS: Skeletal structures: The skeletal structures are well mineralized. There is no evidence of fracture or subluxation involving the cervical spine. Vertebral body height and alignment are maintained. The odontoid process and lateral masses are intact. The atlantoaxial articulation is preserved noting mild productive degenerative change. The spinous processes appear intact. Intervertebral discs: The disc spaces are well maintained. Central canal: Widely patent. Soft tissues: The prevertebral and paraspinous soft tissues are within normal limits. Calvarium: The visualized calvarium at the skull base appears intact. Brain parenchyma: Partially visualized brain parenchyma the skull base is within normal limits. Sinuses and mastoids: The visualized paranasal sinuses are clear. The mastoid air cells are well pneumatized. Lung apices: Clear as visualized. IMPRESSION: There is no evidence of fracture or subluxation involving the cervical spine. Electronically signed by: Kendall Dee M.D. 10/24/2017 7:02 AM Dictated Date/Time: 10/24/2017 7:01 AM
--- NOTE | 2017-10-24 07:39 | DIAGNOSTIC IMAGING REPORT ---
LUMBAR SPINE WITHOUT CLINICAL HISTORY: fall, xaralto COMPARISON STUDY: Lumbar spine radiographs April 04, 2014. FINDINGS: Alignment of the lumbar spine is anatomic. Vertebral body heights are maintained. No fracture or suspicious lesion is identified. Paravertebral soft tissues are unremarkable. There is joint space narrowing with sclerosis and irregularity of the sacroiliac joints. Statistically, this likely reflects osteoarthritis however sacroiliitis could appear similar. IMPRESSION: No acute lumbar spine fracture or subluxation. Electronically signed by: Lukas Duke M.D. 10/24/2017 7:38 AM Dictated Date/Time: 10/24/2017 7:33 AM
== END 2017-10-24 02:46 | disposition home or self-care (01) ==
LOC: C.EDB 23:35 → C.EDA 10-24 02:46
DX: S30.0XXA Contusion of lower back and pelvis, initial encounter (principal); S10.93XA Contusion of unspecified part of neck, initial encounter; W10.9XXA Fall (on) (from) unspecified stairs and steps, initial encounter; E11.22 Type 2 diabetes mellitus with diabetic chronic kidney disease; I12.9 Hypertensive chronic kidney disease with stage 1 through stage 4 chronic kidney disease, or unspecified chronic kidney disease; N18.3 Chronic kidney disease, stage 3 (moderate); F41.9 Anxiety disorder, unspecified; F32.9 Major depressive disorder, single episode, unspecified; K21.9 Gastro-esophageal reflux disease without esophagitis; E78.5 Hyperlipidemia, unspecified; Z86.711 Personal history of pulmonary embolism; Z79.01 Long term (current) use of anticoagulants; Z79.84 Long term (current) use of oral hypoglycemic drugs; Z79.4 Long term (current) use of insulin; Z83.2 Family history of diseases of the blood and blood-forming organs and certain disorders involving the immune mechanism

== ENCOUNTER → 2018-05-06 | Outpatient (CLI) | payer OTHER ==
[~2018-05-06] MED LIST changes: +ESCI1TAB10 PO; +GLC/500 PO; +LISI-726 PO; -LSN20 PO; -METO50TA7 PO; +METO50TA8 PO; +OXYC-737 PO
[2018-05-06 10:02] LABS: BASO % 0.5 %; BASO ABS # 0.03 K/uL (0-0.2); EOS ABS # 0.11 K/uL (0-0.5); HEMATOCRIT 39.9 % (42-52); HEMOGLOBIN 13.3 g/dL (14.0-18.0); LYMPH ABS # 2.65 K/uL (1.2-3.4); MEAN CELL VOLUME 86.6 fL (80-100); MEAN CORPUSCULAR HEMOGLOBIN 28.9 pg (25-34); MEAN CORPUSCULAR HGB CONC 33.3 g/dl (32-36); MONO % 4.5 %; MONO ABS # 0.25 K/uL (0.11-0.59); NEUT ABS # 2.48 K/uL (1.4-6.5); PLATELET COUNT 200 K/uL (130-400); RED CELL DISTRIBUTION WIDTH CV 14.4 % (11.5-14.5); RED CELL DISTRIBUTION WIDTH SD 44.9 fL (36.4-46.3); WHITE BLOOD COUNT 5.52 K/uL (4.8-10.8)
[2018-05-06 13:31] LABS: HEMOGLOBIN A1C 6.9 % (4.5-5.6)
[2018-05-06 13:41] LABS: LIPASE 198 U/L (73-393)
[2018-05-06 13:49] LABS: ALBUMIN 3.5 gm/dl (3.4-5.0); ALKALINE PHOSPHATASE 129 U/L (45-117); ALT/SGPT 120 U/L (12-78); AST/SGOT 99 U/L (15-37); BLOOD UREA NITROGEN 9 mg/dl (7-18); CALCIUM 8.4 mg/dl (8.5-10.1); CARBON DIOXIDE 25 mmol/L (21-32); CHOLESTEROL 158 mg/dl (0-200); GLUCOSE 221 mg/dl (70-99); LDL CHOLESTEROL CALCULATED 81 mg/dl; POTASSIUM 3.7 mmol/L (3.5-5.1); SODIUM 138 mmol/L (136-145); TOTAL PROTEIN 7.9 gm/dl (6.4-8.2)
== END | disposition home or self-care (01) ==
LOC: C.LAB1850 09:21
PROVIDERS: ATTEND Neuromusculoskeletal Medicine & OMM
DX: I12.9 Hypertensive chronic kidney disease with stage 1 through stage 4 chronic kidney disease, or unspecified chronic kidney disease (principal); E11.65 Type 2 diabetes mellitus with hyperglycemia; N18.3 Chronic kidney disease, stage 3 (moderate); E78.1 Pure hyperglyceridemia; K76.9 Liver disease, unspecified

== ENCOUNTER 2018-05-16 03:28 | Emergency (ER) | payer OTHER ==
[~2018-05-16] VITALS: Ht 188 cm; Wt 141.8 kg
[~2018-05-16 03:28] MED LIST changes: -ESCI1TAB18 PO; -FSTTS EXT; -GLC500 PO
[2018-05-16 03:38] VITALS: TEMP 37; Ht 188 cm; Wt 141.8 kg
[2018-05-16 06:19] VITALS: BP 108/58; PULSE 95; O2SAT 94
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
--- NOTE | 2018-05-16 08:16 | DIAGNOSTIC IMAGING REPORT ---
LUMBAR SPINE 5 VIEWS CLINICAL HISTORY: Low back pain. FINDINGS: 5 views of the lumbar spine are compared to study dated 11/21/2012 and correlated with lumbar spine CT dated 10/24/2017. The skeletal structures are well mineralized. There is no radiographic evidence of fracture or malalignment. Vertebral body height and alignment are maintained. The transverse and spinous processes are intact. There is no evidence of spondylolysis. The intervertebral disc spaces are well-maintained. Tiny anterior osteophytes are noted at L3-L4. The visualized bony pelvis appears intact. Mild sclerotic degenerative change is noted in the sacroiliac joints. There is a nonobstructed abdominal bowel gas pattern. IMPRESSION: No acute bony abnormality is seen involving the lumbosacral spine. Electronically signed by: Kendall Dee M.D. 05/16/2018 8:15 AM Dictated Date/Time: 05/16/2018 8:14 AM
--- NOTE | 2018-05-16 08:40 | DIAGNOSTIC IMAGING REPORT ---
SINGLE VIEW PELVIS; 2 VIEWS RIGHT HIP CLINICAL HISTORY: Right hip and leg pain. FINDINGS: An AP view of the pelvis with AP and frog-leg views of the right hip are correlated with pelvic CT dated 06-29. The skeletal structures are well mineralized. No fracture is seen in the hips or bony pelvis. The joint spaces of the hips are well-maintained. Mild sclerotic change is noted in the sacroiliac joints. The overlying soft tissues are within normal limits. No bowel obstruction is seen. IMPRESSION: No acute bony abnormality is identified in the hips or pelvis. Electronically signed by: Kendall Dee M.D. 05/16/2018 8:39 AM Dictated Date/Time: 05/16/2018 8:37 AM
[2018-05-17] MEDS ORDERED: OXYC-90 PO (01:54)
== END 2018-05-16 06:20 | disposition home or self-care (01) ==
LOC: EDBD 03:28 → C.EDB 03:30
DX: S39.92XA Unspecified injury of lower back, initial encounter (principal); S79.911A Unspecified injury of right hip, initial encounter; W51.XXXA Accidental striking against or bumped into by another person, initial encounter; F10.929 Alcohol use, unspecified with intoxication, unspecified; F41.9 Anxiety disorder, unspecified; N18.3 Chronic kidney disease, stage 3 (moderate); I12.9 Hypertensive chronic kidney disease with stage 1 through stage 4 chronic kidney disease, or unspecified chronic kidney disease; F32.9 Major depressive disorder, single episode, unspecified; K21.9 Gastro-esophageal reflux disease without esophagitis; Z86.711 Personal history of pulmonary embolism; Z79.84 Long term (current) use of oral hypoglycemic drugs; Z79.4 Long term (current) use of insulin; Z79.899 Other long term (current) drug therapy; Z79.01 Long term (current) use of anticoagulants

== ENCOUNTER 2018-05-17 00:46 | Emergency (ER) | payer OTHER ==
[~2018-05-17] VITALS: Ht 188 cm; Wt 132.1 kg
[2018-05-17 00:50] VITALS: TEMP 37.1; Ht 188 cm; Wt 132.1 kg
[2018-05-17] MEDS ORDERED: METHYLPREDNISOLONE 125 MG VIAL IV STA (01:40)
[2018-05-17] MEDS ORDERED: SODIUM CHLORIDE 0.9% 1000ML 1,000 ML IV STA ×3 (01:40→04:28)
[2018-05-17] MEDS ORDERED: DiphenhydrAMINE HCL 50 MG/ML VIAL IV STA (01:40)
[2018-05-17] MEDS ORDERED: OPTIRAY 320 IV PRN (01:45)
[2018-05-17] MEDS ORDERED: OXYC-90 PO (01:54)
[2018-05-17 02:00] LABS: BASO % 0.5 %; BASO ABS # 0.04 K/uL (0-0.2); EOS % 1.7 %; EOS ABS # 0.15 K/uL (0-0.5); HEMATOCRIT 38.1 % (42-52); HEMOGLOBIN 12.8 g/dL (14.0-18.0); IG# 0.01 K/uL (0.00-0.02); LYMPH ABS # 3.79 K/uL (1.2-3.4); MEAN CORPUSCULAR HEMOGLOBIN 29.6 pg (25-34); MEAN CORPUSCULAR HGB CONC 33.6 g/dl (32-36); MEAN PLATELET VOLUME 11.9 fL (7.4-10.4); MONO % 5.6 %; MONO ABS # 0.48 K/uL (0.11-0.59); NEUT % 48.1 %; NEUT ABS # 4.14 K/uL (1.4-6.5); PLATELET COUNT 184 K/uL (130-400); RED CELL DISTRIBUTION WIDTH CV 14.8 % (11.5-14.5); RED CELL DISTRIBUTION WIDTH SD 47.8 fL (36.4-46.3); WHITE BLOOD COUNT 8.61 K/uL (4.8-10.8)
[2018-05-17 02:03] LABS: ISTAT CREATININE 1.7 mg/dl (0.6-1.3); ISTAT IONIZED CALCIUM 1.05 mmol/l (1.12-1.32); ISTAT POTASSIUM 3.7 mEq/L (3.3-5.0)
[2018-05-17 02:45] LABS: BLOOD UREA NITROGEN 11 mg/dl (7-18); CALCIUM 8.3 mg/dl (8.5-10.1); CARBON DIOXIDE 24 mmol/L (21-32); CREATININE 1.43 mg/dl (0.60-1.40); GLUCOSE 122 mg/dl (70-99); POTASSIUM 3.8 mmol/L (3.5-5.1); SODIUM 140 mmol/L (136-145)
[2018-05-17 03:41] LABS: PTT PATIENT 26.4 SECONDS (21.0-31.0)
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
[2018-05-17 05:11] LABS: CALCIUM 7.5 mg/dl (8.5-10.1); CREATININE 1.41 mg/dl (0.60-1.40); POTASSIUM 4.4 mmol/L (3.5-5.1)
[2018-05-17 06:14] VITALS: BP 155/98; PULSE 93; O2SAT 95
--- NOTE | 2018-05-17 06:42 | DIAGNOSTIC IMAGING REPORT ---
(CHEST FOR PE) ANGIO WITH CT DOSE: 715.42 mGy.cm HISTORY: Chest pain dyspnea TECHNIQUE: Multiaxial CT images of the chest were performed following the intravenous administration of contrast to evaluate the pulmonary arteries. Maximal intensity projection images were also obtained. A dose lowering technique was utilized adhering to the principles of ALARA. COMPARISON STUDY: None. FINDINGS: There is a normal caliber thoracic aorta with no evidence for dissection. There is no evidence for pulmonary embolus. No pleural effusions. No pneumothorax. The liver and spleen are unremarkable. No mediastinal or hilar lymphadenopathy. The central airways are patent. The lungs are clear. IMPRESSION: No evidence for pulmonary embolus. The lungs are clear. Small hiatal hernia. The above report was generated using voice recognition software. It may contain grammatical, syntax or spelling errors. Electronically signed by: Michael Cabrera M.D. 05/17/2018 6:40 AM Dictated Date/Time: 05/17/2018 6:39 AM
--- NOTE | 2018-05-17 06:42 | DIAGNOSTIC IMAGING REPORT ---
CHEST ONE VIEW PORTABLE CLINICAL HISTORY: Chest Pain dyspnea COMPARISON STUDY: 09/15/2017 FINDINGS: The bones soft tissues and hemidiaphragms are normal. The cardiomediastinal silhouette is normal. The lungs are clear. The pulmonary vasculature is normal. IMPRESSION: Negative chest. The above report was generated using voice recognition software. It may contain grammatical, syntax or spelling errors. Electronically signed by: Michael Cabrera M.D. 05/17/2018 6:41 AM Dictated Date/Time: 05/17/2018 6:41 AM
--- NOTE | 2018-05-17 06:44 | DIAGNOSTIC IMAGING REPORT ---
L ANKLE MIN 3 VIEWS ROUTINE CLINICAL HISTORY: left ankle injury trauma. Pain. COMPARISON: None. DISCUSSION: Small old avulsions from the medial as well as lateral malleolus. Moderate soft tissue edema. Subtalar joint is intact. No well-defined fracture. IMPRESSION: Soft tissue edema. Small old avulsions from the medial as well as lateral malleolus. No acute bony abnormality. The above report was generated using voice recognition software. It may contain grammatical, syntax or spelling errors. Electronically signed by: Michael Cabrera M.D. 05/17/2018 6:43 AM Dictated Date/Time: 05/17/2018 6:42 AM
== END 2018-05-17 06:33 | disposition home or self-care (01) ==
LOC: C.EDB 00:48 → C.EDA 06:33
DX: M25.572 Pain in left ankle and joints of left foot (principal); W50.1XXA Accidental kick by another person, initial encounter; R07.89 Other chest pain; F10.929 Alcohol use, unspecified with intoxication, unspecified; R74.8 Abnormal levels of other serum enzymes; I12.9 Hypertensive chronic kidney disease with stage 1 through stage 4 chronic kidney disease, or unspecified chronic kidney disease; Y90.6 Blood alcohol level of 120-199 mg/100 ml; R00.0 Tachycardia, unspecified; T76.11XA Adult physical abuse, suspected, initial encounter; N18.3 Chronic kidney disease, stage 3 (moderate); E11.22 Type 2 diabetes mellitus with diabetic chronic kidney disease; Z86.711 Personal history of pulmonary embolism; Z79.01 Long term (current) use of anticoagulants; Z79.84 Long term (current) use of oral hypoglycemic drugs; Z79.899 Other long term (current) drug therapy; Z91.041 Radiographic dye allergy status; Z91.048 Other nonmedicinal substance allergy status; Z91.013 Allergy to seafood; Z88.6 Allergy status to analgesic agent

== ENCOUNTER 2018-11-23 12:33 | Inpatient (IN) ==
[2018-11-23] MEDS ORDERED: NovoLIN-R INSULIN PER UNIT CHARGE IV STA (13:19)
[2018-11-23 13:27] LABS: Basophils # (auto) 0.02 K/uL (0-0.2); Basophils % (auto) 0.3 %; Eosinophils # (auto) 0.09 K/uL (0-0.5); Eosinophils % (auto) 1.5 %; Hematocrit (blood only) 40.3 % (42-52); Hemoglobin 14.3 g/dL (14.0-18.0); Immature Granulocytes # (auto) 0.01 K/uL (0.00-0.02); Immature Granulocytes % (auto) 0.2 %; Lymphocytes # (auto) 1.13 K/uL (1.2-3.4); Lymphocytes % (auto) 18.4 %; Mean Corpuscular Hgb Conc 35.5 g/dL (32-36); Mean Corpuscular Volume 86.1 fL (80-100); Mean Platelet Volume 13.4 fL (7.4-10.4); Monocytes % (auto) 3.3 %; Neutrophils # (auto) 4.69 K/uL (1.4-6.5); Neutrophils % (auto) 76.3 %; Platelet Count 157 K/uL (130-400); RDW Standard Deviation 40.8 fL (36.4-46.3); Red Blood Count 4.68 M/uL (4.7-6.1); White Blood Count 6.14 K/uL (4.8-10.8)
[2018-11-23] MEDS ORDERED: SODIUM CHLORIDE 0.9% 1000ML 1,000 ML IV SCH (13:30)
[2018-11-23 13:31] LABS: Appearance Urine Clear (Clear); Bilirubin Urine Negative (Negative); Color Urine Yellow; Glucose Urine UA 3+ (Negative); Ketones Urine Negative (Negative); Leukocyte Esterase Urine Negative (Negative); Nitrite Urine Negative (Negative); Protein Urine Negative (Negative); Specific Gravity Urine 1.033 (1.000-1.030); Urobilinogen Urine Negative (Negative); pH Urine 5.5 (4.5-7.5)
--- NOTE | 2018-11-23 13:42 | XRay Report ---
XR chest 1V portable HISTORY: weakness COMPARISON: Chest 05/17/2018. FINDINGS: The lungs are clear. Cardiac silhouette is normal in size. No pleural effusions. No pneumot horax. IMPRESSION: No acute process. Electronically signed by: Pete Lawson M.D. 11/23/2018 1:41 PM
[2018-11-23 13:55] LABS: Alanine Aminotransferase 95 U/L (12-78); Albumin Globulin Ratio 0.9 (0.9-2); Albumin Level 3.8 gm/dl (3.4-5.0); Alkaline Phosphatase 220 U/L (45-117); Aspartate Aminotransferase 58 U/L (15-37); BUN Creatinine Ratio 7.7 (10-20); Bilirubin,Total 0.3 mg/dl (0.2-1); Blood Urea Nitrogen 15 mg/dl (7-18); Calcium 9.7 mg/dl (8.5-10.1); Carbon Dioxide 26 mmol/L (21-32); Chloride 88 mmol/L (98-107); Creatinine Clr Calc Pharmacy 64.6 ml/min; Est GFR (African American) 44.8; Est GFR (Non-African American) 38.6; Globulin 4.4 gm/dl (2.5-4.0); Glucose 968 mg/dl (70-99); Potassium 4.3 mmol/L (3.5-5.1); Sodium 124 mmol/L (136-145); Total Protein 8.2 gm/dl (6.4-8.2); Troponin I < 0.015 ng/ml (0-0.045)
[2018-11-23] MEDS ORDERED: SODIUM CHLORIDE 0.9% 1000ML 1,000 ML IV STA (14:04)
[2018-11-23] MEDS ORDERED: SEVERE STRESS LEVEL ONE (14:14)
[2018-11-23] MEDS ORDERED: INSULIN PROTOCOL GOAL RANGE ONE (14:14)
[2018-11-23] MEDS ORDERED: HHS GOAL RANGE 250-350 mg/dl ONE ×2 (14:14→18:23)
[2018-11-23] MEDS ORDERED: NovoLIN-R BOLUS FROM BAG IV ONE (14:21)
[2018-11-23] MEDS ORDERED: GLUCOSE 40% GEL 15 GM TUBE PO PRN (14:21)
[2018-11-23] MEDS ORDERED: DEXTROSE 50% 50 ML SYRINGE IV PRN (14:21)
[2018-11-23] MEDS ORDERED: GLUCOSE 10 TABS/TUBE PO PRN (14:21)
[2018-11-23] MEDS ORDERED: CARBOHYDRATES FOR HYPOGLYCEMIA PO PRN (14:21)
[2018-11-23] MEDS ORDERED: GLUCAGON FOR INJ 1 MG VIAL IM PRN (14:21)
[2018-11-23] MEDS: INSULIN REGULAR 250 UNITS in SODIUM CHLORIDE 0.9% 247.5 ML IV SCH (15:05)
[2018-11-23] MEDS ORDERED: MoRPHine SULFATE 4 MG/ML 1 ML CARP\\VIAL IV STA (15:46)
--- NOTE | 2018-11-23 16:15 | Emergency Department Note ---
Entered by Elisa King acting as a scribe for History of Present Illness General Chief complaint: Hyperglycemia Stated complaint: LIGHT-HEADED,BLOOD SUGAR 600,COLLAR BONE,CHESTPAIN Time Seen by Provider: 11/23/18 13:12 Source: patient History of Present Illness Onset (ago): day(s) (this morning) Severity: severe (too high for the meter to read) Pain Consistency: + other (episode) Maximum Pain Intensity: 7 Quality: + other (hyperglycemia) Associated symptoms: + denies other symptoms (diarrhea), + cough and + other ( increased thirst, increased urination, weight loss); no fever/chills (fever) and no nausea/vomiting (vomiting) The patient is a 48 year old male who presents to the Emergency Room with complaints of an episode of hyperglycemia starting this morning. The patient states that he has a history of Diabetes, but recently his sugars have been all over the place. He states that he is supposed to be on Novalog, but hasnt been for a month since the insurance company wont pay for it. He states that he has only been on his long acting insulin. The patient states that today he went to check his blood sugar and it was so high, his meter wouldnt read it. The patient complains of increased thirst, increased urination, and weight loss. He notes that he was in DKA once before 2 years ago. He notes that he had an episode of diarrhea a few days ago, but none today. He notes that he is still on Xarelto. The patient states that he had bronchitis a month ago, but feels like it is coming back because he has had a productive cough. The patient denies vomiting and fever. Home Medications Home Medications Medication Instructions Recorded Confirmed Type alprazolam [Xanax] 1 mg PO TID PRN 10/22/18 11/23/18 History cefdinir 300 mg PO BID #14 cap 10/22/18 11/23/18 Rx codeine-guaifenesin [Guaifenesin 10 ml PO HS #118 ml 10/22/18 11/23/18 Rx AC] duloxetine [Cymbalta] 20 mg PO QAM 10/22/18 11/23/18 History escitalopram oxalate [Lexapro] 20 mg PO QAM 10/22/18 11/23/18 History insulin aspart U-100 20 unit SUBCUT AC 10/22/18 11/23/18 History insulin glargine [Basaglar KwikPen 50 unit SUBCUT BID 10/22/18 11/23/18 History U-100 Insulin] lisinopril 20 mg PO QAM 10/22/18 11/23/18 History methylphenidate HCl [Ritalin] 20 mg PO BID 10/22/18 11/23/18 History oxycodone 5 - 10 mg PO Q4H PRN 10/22/18 11/23/18 History pantoprazole 40 mg PO QAM 10/22/18 11/23/18 History rivaroxaban [Xarelto] 20 mg PO PM 10/22/18 11/23/18 History zolpidem [Ambien] 10 mg PO HS 10/22/18 11/23/18 History epinephrine 0.3 mg IM UD 11/23/18 11/23/18 History methocarbamol 500 mg PO TID PRN 11/23/18 11/23/18 History metoprolol succinate 150 mg PO QAM 11/23/18 11/23/18 History Allergies Allergy/AdvReac Type Severity Reaction Status Date / Time iodine Allergy Severe THROAT Verified 11/23/18 15:00 SWELLING shellfish derived Allergy Severe THROAT Verified 11/23/18 15:00 SWELLING Iodinated Contrast- Oral and Allergy Intermediate swelling Verified 11/23/18 15: 00 IV Dye acetaminophen AdvReac Intermediate GI ISSUES Verified 11/23/18 15:00 hydrocodone AdvReac Intermediate GI ISSUES Verified 11/23/18 15:00 Plasma, Human Allergy Severe ANAPHYLAXIS Uncoded 11/23/18 15:00 Past Med/Surg History Medical History History of pleural effusion (Resolved) Chest pain (Resolved) Blood clot in vein (Resolved) Hyperglycemia (Resolved) Substernal chest pain (Resolved) Hemoptysis (Resolved) Pharyngitis (Resolved) Pleuritic chest pain (Resolved) Chest wall pain (Resolved) Elevated CPK (Resolved) Abdominal pain Elevated CK (Resolved) BRIDGETTE (acute kidney injury) (Resolved) Suspected pulmonary embolism (Resolved) Right knee pain (Acute) Precordial chest pain (Acute) Pulmonary emboli (Acute) Alcohol intoxication (Acute) Subtherapeutic international normalized ratio (INR) (Acute) Myositis Fever and chills Transaminitis Diabetes Abnormal EKG Acute renal failure Contusion of multiple sites (Acute) Fall (Acute) GI bleed Hypertension (Acute) Left ankle sprain (Acute) Family History Mother , s/p brain aneurysm Aneurysm Other HTN (hypertension) Social History marital status: Single Current Living Situation: Alone current occupational status: disabled Other Information That Helps Us Care for You: No Feels Safe at Home: Yes Safety Concerns: Feels Safe At This Time Smoking Status: Never smoker Do You Dip or Chew Tobacco: No Hx Alcohol Use: No Hx Substance Use: No Beliefs That Will Affect Care: Spiritism Spiritism Beliefs: Mu-Ism Preferred Language: Slovak Communication Ability: Effective Tobacco Hanger Required: No Review of Systems See HPI for pertinent positives & negatives. and A total of 10 systems reviewed and were otherwise negative Physical Exam Vital Signs Vital Signs - 24 hr 11/23/18 12:37 11/23/18 13:07 11/23/18 13:24 Temperature 36.9 C Temperature Source Oral Sepsis Recent Fever Within 48 Hours No Sepsis New/Unexplained Change in Mental Status No Sepsis Action Taken by Nursing No Action Required Pulse Rate 109 H Pulse Rate [Left Apical] Pulse Rate [Left Finger] Pulse Rhythm [Left Apical] Pulse Strength [Left Apical] Respiratory Rate 18 Respiratory Effort / Characteristics Non-Labored Spontaneous Respiratory Depth Normal Respiratory Pattern Regular Blood Pressure 145/84 H Blood Pressure [Left Arm] Blood Pressure Mean 104 Blood Pressure Mean [Left Arm] Blood Pressure Position Sitting Blood Pressure Position [Left Arm] Pulse Oximetry 96 96 97 Oxygen Delivery Method Room Air Room Air Room Air 11/23/18 13:56 11/23/18 15:00 11/23/18 16:52 Temperature Temperature Source Sepsis Recent Fever Within 48 Hours Sepsis New/Unexplained Change in Mental Status Sepsis Action Taken by Nursing Pulse Rate Pulse Rate [Left Apical] 101 H 108 H Pulse Rate [Left Finger] 112 H Pulse Rhythm [Left Apical] Regular Regular Pulse Strength [Left Apical] Normal Normal Respiratory Rate 22 18 20 Respiratory Effort / Characteristics Non-Labored Spontaneous Non-Labored Spontaneous Respiratory Depth Normal Normal Respiratory Pattern Regular Regular Blood Pressure Blood Pressure [Left Arm] 133/77 134/83 121/81 Blood Pressure Mean Blood Pressure Mean [Left Arm] 95 100 94 Blood Pressure Position Blood Pressure Position [Left Arm] Sitting Sitting Pulse Oximetry 95 96 97 Oxygen Delivery Method Room Air Room Air Room Air 11/23/18 17:31 11/23/18 17:55 Temperature Temperature Source Sepsis Recent Fever Within 48 Hours Sepsis New/Unexplained Change in Mental Status Sepsis Action Taken by Nursing Pulse Rate 101 H Pulse Rate [Left Apical] Pulse Rate [Left Finger] Pulse Rhythm [Left Apical] Pulse Strength [Left Apical] Respiratory Rate 18 Respiratory Effort / Characteristics Respiratory Depth Respiratory Pattern Regular Blood Pressure 117/82 Blood Pressure [Left Arm] Blood Pressure Mean Blood Pressure Mean [Left Arm] Blood Pressure Position Blood Pressure Position [Left Arm] Pulse Oximetry 97 Oxygen Delivery Method Room Air Room Air GENERAL: Patient is in no acute distress. HEENT: No acute trauma, normocephalic atraumatic, mucous membranes are dry, no nasal congestion, no scleral icterus. NECK: No stridor, no adenopathy, no meningismus, trachea is midline. LUNGS: Clear to auscultation bilaterally, no wheeze, no rhonchi, breath sounds equal. HEART: Tachycardic with a regular rhythm. No murmurs. ABDOMEN: Soft, nontender, bowel sounds positive, no hernias, no peritonitis. EXTREMITIES: No cyanosis or edema, full range of motion of all the joints without pain or difficulty, no signs for acute trauma. NEUROLOGIC: Oriented x 3, no acute motor or sensory deficits, no focal weakness. SKIN: No rash, no jaundice, no diaphoresis. Course 1316: Past medical records reviewed. The patient was evaluated in room B11A, and a complete history and physical examination were performed. 1400: I reevaluated the patient and updated him on his test results. I discussed the treatment plan with him. He verbally agrees and understands. 1402: I paged the hospitalist at this time. 1408: I reviewed the patient's case with Dr. Wilfred GOLD Hospitalist. She will evaluate the patient for further management. Consultations Consultation #1: I reviewed the patient's case with Dr. Wilfred GOLD Hospitalist. She will evaluate the patient for further management. Time: 14:08 Administered Medications Insulin Human Regular 250 (units/ Sodium Chloride) 250 mls @ 4.7 mls/hr IV .Q24H [facility]; Protocol Stop: 12/23/18 14:14 Last Titration: 11/23/18 16:57 Dose: Titration: 11/23/18 16:40 Dose: 2.8 units/hr, 2.8 mls/hr Titration: 11/23/18 16:21 Dose: Titration: 11/23/18 16:00 Dose: 0 units/hr, 0 mls/hr Admin: 11/23/18 15:05 Dose: 4.7 units/hr, 4.7 mls/hr Discontinued Medications Sodium Chloride (Nss 1000ml) 1,000 mls @ 999 mls/hr IV .Q1H1M DIAMOND Stop: 11/23/18 14:30 Last Infusion: 11/23/18 14:46 Dose: 0 mls/hr Admin: 11/23/18 13:45 Dose: 999 mls/hr Sodium Chloride (Nss 1000ml) 1,000 mls @ 999 mls/hr IV .Q1H1M STA Stop: 11/23/18 15:04 Last Infusion: 11/23/18 16:10 Dose: 0 mls/hr Admin: 11/23/18 15:08 Dose: 999 mls/hr Insulin Human Regular (Novolin R U-100 Per Unit) 10 units IV NOW STA Stop: 11/23/18 13:20 Last Admin: 11/23/18 13:45 Dose: 10 units Insulin Human Regular (Novolin R Bolus From Bag) 4.5 units IV ONE ONE Stop: 11/23/18 14:22 Last Admin: 11/23/18 15:05 Dose: 4.5 units Morphine Sulfate (Morphine Sulfate) 4 mg IV NOW STA Stop: 11/23/18 15:47 Last Admin: 11/23/18 16:10 Dose: 4 mg Medical Decision Making Differential Diagnosis Differential diagnoses include DKA, hyperglycemia, dehydration, electrolyte imbalance, anemia, UTI, pneumonia or bronchitis. Medical Records Attestation: I reviewed the patient's medical records. Home Medications Current Medication List: was personally reviewed by me Laboratory Data Attestation: I reviewed the patient's lab results. Result diagrams: 11/23/18 13:15 11/23/18 13:15 Lab Results 11/23/18 11/23/18 11/23/18 Range/Units 12:40 12:41 13:00 WBC (4.8-10.8) K/uL RBC (4.7-6.1) M/uL Hgb (14.0-18.0) g/dL Hct (42-52) % MCV (80-100) fL MCH (25-34) pg MCHC (32-36) g/dL RDW Std Deviation (36.4-46.3) fL RDW Coeff of Lillie (11.5-14.5) % Plt Count (130-400) K/uL MPV (7.4-10.4) fL Immature Gran % (Auto) % Neut % (Auto) % Lymph % (Auto) % [place] % (Auto) % Eos % (Auto) % Baso % (Auto) % Immature Gran # (Auto) (0.00-0.02) K/uL Neut # (Auto) (1.4-6.5) K/uL Lymph # (Auto) (1.2-3.4) K/uL [place] # (Auto) (0.11-0.59) K/uL Eos # (Auto) (0-0.5) K/uL Baso # (Auto) (0-0.2) K/uL Sodium (136-145) mmol/L Potassium (3.5-5.1) mmol/L Chloride (98-107) mmol/L Carbon Dioxide (21-32) mmol/L Anion Gap (3-11) BUN (7-18) mg/dl Creatinine (0.6-1.4) mg/dl Est Cr Clr Drug Dosing ml/min Est GFR ( Amer) Est GFR (Non-Af Amer) BUN/Creatinine Ratio (10-20) Glucose (70-99) mg/dl POC Glucose > 600 H* > 600 H* (70-99) Calcium (8.5-10.1) mg/dl Magnesium (1.8-2.4) mg/dl Total Bilirubin (0.2-1) mg/dl AST (15-37) U/L ALT (12-78) U/L Alkaline Phosphatase (45-117) U/L Troponin I (0-0.045) ng/ml Total Protein (6.4-8.2) gm/dl Albumin (3.4-5.0) gm/dl Globulin (2.5-4.0) gm/dl Albumin/Globulin Ratio (0.9-2) Beta-Hydroxybutyric Acd (0.2-2.81) mg/dl Urine Color Yellow Urine Appearance Clear (Clear) Urine pH 5.5 (4.5-7.5) Ur Specific Boyce 1.033 H (1.000-1.030) Urine Protein Negative (Negative) Urine Glucose (UA) 3+ H (Negative) Urine Ketones Negative (Negative) Urine Blood Negative (Negative) Urine Nitrite Negative (Negative) Urine Bilirubin Negative (Negative) Urine Urobilinogen Negative (Negative) Ur Leukocyte Esterase Negative (Negative) 11/23/18 11/23/18 11/23/18 Range/Units 13:09 13:15 13:15 WBC 6.14 (4.8-10.8) K/uL RBC 4.68 L (4.7-6.1) M/uL Hgb 14.3 (14.0-18.0) g/dL Hct 40.3 L (42-52) % MCV 86.1 (80-100) fL MCH 30.6 (25-34) pg MCHC 35.5 (32-36) g/dL RDW Std Deviation 40.8 (36.4-46.3) fL RDW Coeff of Lillie 13.0 (11.5-14.5) % Plt Count 157 (130-400) K/uL MPV 13.4 H (7.4-10.4) fL Immature Gran % (Auto) 0.2 % Neut % (Auto) 76.3 % Lymph % (Auto) 18.4 % [place] % (Auto) 3.3 % Eos % (Auto) 1.5 % Baso % (Auto) 0.3 % Immature Gran # (Auto) 0.01 (0.00-0.02) K/uL Neut # (Auto) 4.69 (1.4-6.5) K/uL Lymph # (Auto) 1.13 L (1.2-3.4) K/uL [place] # (Auto) 0.20 (0.11-0.59) K/uL Eos # (Auto) 0.09 (0-0.5) K/uL Baso # (Auto) 0.02 (0-0.2) K/uL Sodium 124 L (136-145) mmol/L Potassium 4.3 (3.5-5.1) mmol/L Chloride 88 L (98-107) mmol/L Carbon Dioxide 26 (21-32) mmol/L Anion Gap 11.0 (3-11) BUN 15 (7-18) mg/dl Creatinine 2.01 H (0.6-1.4) mg/dl Est Cr Clr Drug Dosing 64.6 ml/min Est GFR ( Amer) 44.8 Est GFR (Non-Af Amer) 38.6 BUN/Creatinine Ratio 7.7 L (10-20) Glucose 968 H* (70-99) mg/dl POC Glucose > 600 H* (70-99) Calcium 9.7 (8.5-10.1) mg/dl Magnesium 2.0 (1.8-2.4) mg/dl Total Bilirubin 0.3 (0.2-1) mg/dl AST 58 H (15-37) U/L ALT 95 H (12-78) U/L Alkaline Phosphatase 220 H (45-117) U/L Troponin I < 0.015 (0-0.045) ng/ml Total Protein 8.2 (6.4-8.2) gm/dl Albumin 3.8 (3.4-5.0) gm/dl Globulin 4.4 H (2.5-4.0) gm/dl Albumin/Globulin Ratio 0.9 (0.9-2) Beta-Hydroxybutyric Acd 1.42 (0.2-2.81) mg/dl Urine Color Urine Appearance (Clear) Urine pH (4.5-7.5) Ur Specific [place] (1.000-1.030) Urine Protein (Negative) Urine Glucose (UA) (Negative) Urine Ketones (Negative) Urine Blood (Negative) Urine Nitrite (Negative) Urine Bilirubin (Negative) Urine Urobilinogen (Negative) Ur Leukocyte Esterase (Negative) 11/23/18 11/23/18 11/23/18 Range/Units 14:29 15:57 16:00 WBC (4.8-10.8) K/uL RBC (4.7-6.1) M/uL Hgb (14.0-18.0) g/dL Hct (42-52) % MCV (80-100) fL MCH (25-34) pg MCHC (32-36) g/dL RDW Std Deviation (36.4-46.3) fL RDW Coeff of Lillie (11.5-14.5) % Plt Count (130-400) K/uL MPV (7.4-10.4) fL Immature Gran % (Auto) % Neut % (Auto) % Lymph % (Auto) % [place] % (Auto) % Eos % (Auto) % Baso % (Auto) % Immature Gran # (Auto) (0.00-0.02) K/uL Neut # (Auto) (1.4-6.5) K/uL Lymph # (Auto) (1.2-3.4) K/uL [place] # (Auto) (0.11-0.59) K/uL Eos # (Auto) (0-0.5) K/uL Baso # (Auto) (0-0.2) K/uL Sodium (136-145) mmol/L Potassium (3.5-5.1) mmol/L Chloride (98-107) mmol/L Carbon Dioxide (21-32) mmol/L Anion Gap (3-11) BUN (7-18) mg/dl Creatinine (0.6-1.4) mg/dl Est Cr Clr Drug Dosing ml/min Est GFR ( Amer) Est GFR (Non-Af Amer) BUN/Creatinine Ratio (10-20) Glucose (70-99) mg/dl POC Glucose > 600 H* 418 H* 447 H* (70-99) Calcium (8.5-10.1) mg/dl Magnesium (1.8-2.4) mg/dl Total Bilirubin (0.2-1) mg/dl AST (15-37) U/L ALT (12-78) U/L Alkaline Phosphatase (45-117) U/L Troponin I (0-0.045) ng/ml Total Protein (6.4-8.2) gm/dl Albumin (3.4-5.0) gm/dl Globulin (2.5-4.0) gm/dl Albumin/Globulin Ratio (0.9-2) Beta-Hydroxybutyric Acd (0.2-2.81) mg/dl Urine Color Urine Appearance (Clear) Urine pH (4.5-7.5) Ur Specific [place] (1.000-1.030) Urine Protein (Negative) Urine Glucose (UA) (Negative) Urine Ketones (Negative) Urine Blood (Negative) Urine Nitrite (Negative) Urine Bilirubin (Negative) Urine Urobilinogen (Negative) Ur Leukocyte Esterase (Negative) 11/23/18 11/23/18 11/23/18 Range/Units 16:43 16:45 17:38 WBC (4.8-10.8) K/uL RBC (4.7-6.1) M/uL Hgb (14.0-18.0) g/dL Hct (42-52) % MCV (80-100) fL MCH (25-34) pg MCHC (32-36) g/dL RDW Std Deviation (36.4-46.3) fL RDW Coeff of Lillie (11.5-14.5) % Plt Count (130-400) K/uL MPV (7.4-10.4) fL Immature Gran % (Auto) % Neut % (Auto) % Lymph % (Auto) % [place] % (Auto) % Eos % (Auto) % Baso % (Auto) % Immature Gran # (Auto) (0.00-0.02) K/uL Neut # (Auto) (1.4-6.5) K/uL Lymph # (Auto) (1.2-3.4) K/uL [place] # (Auto) (0.11-0.59) K/uL Eos # (Auto) (0-0.5) K/uL Baso # (Auto) (0-0.2) K/uL Sodium (136-145) mmol/L Potassium (3.5-5.1) mmol/L Chloride (98-107) mmol/L Carbon Dioxide (21-32) mmol/L Anion Gap (3-11) BUN (7-18) mg/dl Creatinine (0.6-1.4) mg/dl Est Cr Clr Drug Dosing ml/min Est GFR ( Amer) Est GFR (Non-Af Amer) BUN/Creatinine Ratio (10-20) Glucose (70-99) mg/dl POC Glucose 414 H* 422 H* 404 H* (70-99) Calcium (8.5-10.1) mg/dl Magnesium (1.8-2.4) mg/dl Total Bilirubin (0.2-1) mg/dl AST (15-37) U/L ALT (12-78) U/L Alkaline Phosphatase (45-117) U/L Troponin I (0-0.045) ng/ml Total Protein (6.4-8.2) gm/dl Albumin (3.4-5.0) gm/dl Globulin (2.5-4.0) gm/dl Albumin/Globulin Ratio (0.9-2) Beta-Hydroxybutyric Acd (0.2-2.81) mg/dl Urine Color Urine Appearance (Clear) Urine pH (4.5-7.5) Ur Specific [place] (1.000-1.030) Urine Protein (Negative) Urine Glucose (UA) (Negative) Urine Ketones (Negative) Urine Blood (Negative) Urine Nitrite (Negative) Urine Bilirubin (Negative) Urine Urobilinogen (Negative) Ur Leukocyte Esterase (Negative) 11/23/18 Range/Units 17:40 WBC (4.8-10.8) K/uL RBC (4.7-6.1) M/uL Hgb (14.0-18.0) g/dL Hct (42-52) % MCV (80-100) fL MCH (25-34) pg MCHC (32-36) g/dL RDW Std Deviation (36.4-46.3) fL RDW Coeff of Lillie (11.5-14.5) % Plt Count (130-400) K/uL MPV (7.4-10.4) fL Immature Gran % (Auto) % Neut % (Auto) % Lymph % (Auto) % [place] % (Auto) % Eos % (Auto) % Baso % (Auto) % Immature Gran # (Auto) (0.00-0.02) K/uL Neut # (Auto) (1.4-6.5) K/uL Lymph # (Auto) (1.2-3.4) K/uL [place] # (Auto) (0.11-0.59) K/uL Eos # (Auto) (0-0.5) K/uL Baso # (Auto) (0-0.2) K/uL Sodium (136-145) mmol/L Potassium (3.5-5.1) mmol/L Chloride (98-107) mmol/L Carbon Dioxide (21-32) mmol/L Anion Gap (3-11) BUN (7-18) mg/dl Creatinine (0.6-1.4) mg/dl Est Cr Clr Drug Dosing ml/min Est GFR ( Amer) Est GFR (Non-Af Amer) BUN/Creatinine Ratio (10-20) Glucose (70-99) mg/dl POC Glucose 389 H* (70-99) Calcium (8.5-10.1) mg/dl Magnesium (1.8-2.4) mg/dl Total Bilirubin (0.2-1) mg/dl AST (15-37) U/L ALT (12-78) U/L Alkaline Phosphatase (45-117) U/L Troponin I (0-0.045) ng/ml Total Protein (6.4-8.2) gm/dl Albumin (3.4-5.0) gm/dl Globulin (2.5-4.0) gm/dl Albumin/Globulin Ratio (0.9-2) Beta-Hydroxybutyric Acd (0.2-2.81) mg/dl Urine Color Urine Appearance (Clear) Urine pH (4.5-7.5) Ur Specific [place] (1.000-1.030) Urine Protein (Negative) Urine Glucose (UA) (Negative) Urine Ketones (Negative) Urine Blood (Negative) Urine Nitrite (Negative) Urine Bilirubin (Negative) Urine Urobilinogen (Negative) Ur Leukocyte Esterase (Negative) Imaging Data Radiologist's Impression: Radiology results as stated below per my review and the radiologist's interpretation: XR chest 1V portable HISTORY: weakness COMPARISON: Chest 05/17/2018. FINDINGS: The lungs are clear. Cardiac silhouette is normal in size. No pleural effusions. No pneumothorax. IMPRESSION: No acute process. Electronically signed by: Pete Lawson M.D. 11/23/2018 1:41 PM ECG Data Attestation: I personally reviewed and interpreted this ECG as follows: Indication: toxicologic Rate (beats per minute): 102 Rhythm: sinus tachycardia Findings: + other (ST flattening laterally), + T-wave inversion (inferior leads ) and + ST elevation (subtle in anterior and high lateral leads) Comparison ECG Date: from (10/22/2018) Change: no significant change Blood Pressure Blood Pressure Findings: Elevated blood pressure Blood Pressure Disposition: further management by hospitalist [facility] Narrative There is no leukocytosis or worrisome anemia. Renal panel testing shows a low sodium and chloride, likely from his high sugar. Sugar returned elevated at 968. There was a bump to the creatinine at 2.01, this is consistent with dehydration. LFTs are mildly elevated. EKG shows a sinus tachycardia, no acute ischemia. This EKG is somewhat abnormal in appearance but baseline looking back at previous EKGs. Cardiac enzyme testing x1 is not consistent with acute cardiac injury. Urinalysis shows glucose, no signs of infection. Chest film does not show pneumonia or CHF. The patient presents with a high blood sugar. He is dehydrated. He does have some acute kidney injury. He received IV saline, 2 L. He was given a bolus of IV insulin and then placed on an insulin drip. Given the high sugar value, given the elevated creatinine, I do think a hospital stay is warranted. This is not an issue that can be fixed in a few hours in the ED. I spoke to the patient and manager rn case. The on-call hospitalist was consulted. The patient is aware of all his findings. Impression & Plan Hyperglycemia, Acute kidney injury, Dehydration, Hyponatremia Critical Care Time I have personally spent greater than 31 minutes of critical care time in the direct management of this patient. This includes bedside care, interpretation of diagnostic studies and testing, discussion with consultants, the patient, and family members, and other required patient management activities. This 31 minutes is in excess of all separately billable procedures. Critical Care Time: Yes Total Critical Care Time: 31 Discharge Plan Visit Data Chief Complaint: Hyperglycemia Stated Complaint: LIGHT-HEADED,BLOOD SUGAR 600,COLLAR BONE,CHESTPAIN ED Provider: Kendall Dobbins Discharge Problem: Hyperglycemia, Acute kidney injury, Dehydration, Hyponatremia Patient Disposition: Being Evaluated by Hospitalist Discharge Instructions Interventions: ED Discharge Assessment Last Done: 11/23/18 17:55 The scribe's documentation has been prepared under my direction and personally reviewed by me in its entirety. I confirm that the note above accurately reflects all work, treatment, procedures, and medical decision making performed by me.
--- NOTE | 2018-11-23 17:13 | History & Physical Report ---
Date of Service November 23, 2018 Assessment & Plan (1) Hyperglycemia: In the setting of insurance no longer covering SSI A1c with PCP Friday reported as 10.8 DKA protocol CM assistance for medication coverage Improving on insulin drip and IVF Continue (2) Acute kidney injury: In the setting of HHS Monitor with improved BS and hydration (3) Hyponatremia: Likely related to HHS Monitor with insulin tx (4) Pulmonary emboli: Hx x4 States hypercoag panels x4 have been neg Continue xarelto (5) Hypertension: continue home meds (6) Depression: continue home meds (7) DM type 2 (diabetes mellitus, type 2): As noted above Holding home regimen for now (8) Anxiety: continue home meds (9) DVT prophylaxis: Xarelto History of Present Illness Primary Care Provider: Edgardo Azevedo, DO 48 y/o M c/o elevated BS. Pt states he was doing well with his DM management until 1 month ago when his insurance would no longer cover his novolog. Pt was able to continue taking his long acting insulin and has been watching his diet as well. He monitors his BS and his meter was not able to read them as they were >600. He started to feel lightheaded, nauseated, abd cramping, increased thirst and urination, and diarrhea over the last two days, much worse today. He was seen by PCP last Friday. Labs were checked. His A1c had been in the 5 range, it was 10.8 on recheck last week. He was to have f/u with PCP today, however he developed these sx and came to the ED instead. Pt denies fever, SOB, chest pain, abd pain, LE pain or swelling. Allergies Allergy/AdvReac Type Severity Reaction Status Date / Time iodine Allergy Severe THROAT Verified 11/23/18 15:00 SWELLING shellfish derived Allergy Severe THROAT Verified 11/23/18 15:00 SWELLING Iodinated Contrast- Oral and Allergy Intermediate swelling Verified 11/23/18 15: 00 IV Dye acetaminophen AdvReac Intermediate GI ISSUES Verified 11/23/18 15:00 hydrocodone AdvReac Intermediate GI ISSUES Verified 11/23/18 15:00 Plasma, Human Allergy Severe ANAPHYLAXIS Uncoded 11/23/18 15:00 Home Medications Home Medications Medication Instructions Recorded Confirmed Type alprazolam [Xanax] 1 mg PO TID PRN 10/22/18 11/23/18 History cefdinir 300 mg PO BID #14 cap 10/22/18 11/23/18 Rx codeine-guaifenesin [Guaifenesin 10 ml PO HS #118 ml 10/22/18 11/23/18 Rx AC] duloxetine [Cymbalta] 20 mg PO QAM 10/22/18 11/23/18 History escitalopram oxalate [Lexapro] 20 mg PO QAM 10/22/18 11/23/18 History insulin aspart U-100 20 unit SUBCUT AC 10/22/18 11/23/18 History insulin glargine [Basaglar KwikPen 50 unit SUBCUT BID 10/22/18 11/23/18 History U-100 Insulin] lisinopril 20 mg PO QAM 10/22/18 11/23/18 History methylphenidate HCl [Ritalin] 20 mg PO BID 10/22/18 11/23/18 History oxycodone 5 - 10 mg PO Q4H PRN 10/22/18 11/23/18 History pantoprazole 40 mg PO QAM 10/22/18 11/23/18 History rivaroxaban [Xarelto] 20 mg PO PM 10/22/18 11/23/18 History zolpidem [Ambien] 10 mg PO HS 10/22/18 11/23/18 History epinephrine 0.3 mg IM UD 11/23/18 11/23/18 History methocarbamol 500 mg PO TID PRN 11/23/18 11/23/18 History metoprolol succinate 150 mg PO QAM 11/23/18 11/23/18 History Past Med/Surg History Medical History History of pleural effusion (Resolved) Chest pain (Resolved) Blood clot in vein (Resolved) Hyperglycemia (Resolved) Substernal chest pain (Resolved) Hemoptysis (Resolved) Pharyngitis (Resolved) Pleuritic chest pain (Resolved) Chest wall pain (Resolved) Elevated CPK (Resolved) Abdominal pain Elevated CK (Resolved) BRIDGETTE (acute kidney injury) (Resolved) Suspected pulmonary embolism (Resolved) Right knee pain (Acute) Precordial chest pain (Acute) Pulmonary emboli (Acute) Alcohol intoxication (Acute) Subtherapeutic international normalized ratio (INR) (Acute) Myositis Fever and chills Transaminitis Diabetes Abnormal EKG Acute renal failure Contusion of multiple sites (Acute) Fall (Acute) GI bleed Hypertension (Acute) Left ankle sprain (Acute) Family History Mother , s/p brain aneurysm Aneurysm Other HTN (hypertension) Social History marital status: Single Current Living Situation: Alone current occupational status: disabled Feels Safe at Home: Yes Smoking Status: Never smoker Hx Alcohol Use: No Hx Substance Use: No Preferred Language: Serbian Review of Systems Pertinent positives and negatives reviewed in HPI--all others negative Physical Exam 2 Vital Signs (Past 24 Hours): Last Vital Signs Temp 36.9 C 11/23/18 12:37 Pulse 108 H 11/23/18 16:52 Resp 20 11/23/18 16:52 BP 121/81 11/23/18 16:52 Pulse Ox 97 11/23/18 16:52 Constitutional: WD/WN, vitals as above Eyes: normal visual méndez by confrontation and + anicteric sclerae Neck: normal visual inspection and trachea midline Respiratory: normal respiratory effort, lungs clear to auscultation Cardiovascular: Rate/Rhythm: regular rate and regular rhythm Gastrointestinal (Abdomen): Inspection/Auscultation: abdomen not distended Percussion/Palpation: abdomen soft; abdomen nontender Musculoskeletal: Head/Neck/Chest: normocephalic and head atraumatic negative for edema, peripheral pulses intact Skin: no rashes, warm and dry Neurologic: awake; not confused Speech / Cognition: normal speech Psychiatric: A+Ox3, euthymic affect Results & Data Diagnostic Findings CXR: neg for acute ECG Rhythm: sinus tachycardia Code Status & VTE Plan Code Status Full code VTE Prophylaxis Plan VTE Prophylaxis will be ordered: Yes
[2018-11-23] MEDS ORDERED: ACETAMINOPHEN 325 MG TAB PO PRN (18:23)
[2018-11-23] MEDS ORDERED: MAGNESIUM HYDROXIDE SUSP 30 ML UDC PO PRN (18:23)
[2018-11-23] MEDS ORDERED: EPINEPHRINE ADULT AUTO-INJECT 0.3 MG SYR IM SCH (18:23)
[2018-11-23] MEDS ORDERED: ONDANSETRON INJ 2 MG/ML 2 ML VIAL IV PRN (18:23)
[2018-11-23] MEDS ORDERED: INSULIN REGULAR 250 UNITS in SODIUM CHLORIDE 0.9% 247.5 ML IV SCH (18:23)
[2018-11-23] MEDS ORDERED: INSULIN ASPART 100 UNITS/ML 3 ML PEN SC SCH (18:23)
[2018-11-23] MEDS ORDERED: METHOCARBAMOL 500 MG TABLET PO PRN (18:23)
[2018-11-23] MEDS ORDERED: PHARMACY GLYCEMIC MGMT CONSULT PRN (18:45)
[2018-11-23] MEDS ORDERED: PENDING NSS+20mEq KCL IVF SCH (19:00)
[2018-11-23] MEDS ORDERED: PENDING D5 1/2NS+20mEq KCL IVF SCH (19:00)
[2018-11-23 19:27] LABS: BUN Creatinine Ratio 7.6 (10-20); Calcium 9.5 mg/dl (8.5-10.1); Creatinine Clr Calc Pharmacy 80.7 ml/min; Est GFR (African American) 58.6; Est GFR (Non-African American) 50.5; Magnesium 1.9 mg/dl (1.8-2.4); Phosphorus 3.4 mg/dl (2.5-4.9)
[2018-11-23] MEDS ORDERED: INSULIN GLARGINE SOLOSTAR 100 UNITS/ML 3 ML PEN SC ONE ×2 (19:45→20:00)
[2018-11-23] MEDS: INSULIN ASPART 100 UNITS/ML 3 ML PEN SC SCH ×2 (19:57→21:06)
[2018-11-23 20:05] LABS: Potassium 3.5 mmol/L (3.5-5.1)
[2018-11-23] MEDS: OXYCODONE HCL IR 5 MG TAB (IMMEDIATE RELEASE) PO PRN (20:09)
[2018-11-23] MEDS: SODIUM CHLORIDE 0.45 % 1,000 ML IV SCH (20:10)
[2018-11-23] MEDS ORDERED: METHYLPHENIDATE HCL 10 MG TABLET PO SCH (21:00)
[2018-11-23] MEDS ORDERED: GUAIFENESIN/CODEINE 100MG/10MG 5ML UDC PO SCH (21:00)
[2018-11-23] MEDS: ZOLPIDEM TARTRATE 10 MG TAB PO SCH (21:36)
[2018-11-23] MEDS: RIVAROXABAN 20 MG TAB PO SCH (21:36)
[2018-11-23 23:10] LABS: BUN Creatinine Ratio 8.5 (10-20); Calcium 9.2 mg/dl (8.5-10.1); Est GFR (African American) 65.9; Est GFR (Non-African American) 56.9; Magnesium 1.8 mg/dl (1.8-2.4); Phosphorus 3.5 mg/dl (2.5-4.9); Potassium 3.2 mmol/L (3.5-5.1)
[2018-11-24] MEDS ORDERED: INSULIN ASPART 100 UNITS/ML 3 ML PEN SC ONE (01:00)
[2018-11-24 02:38] LABS: BUN Creatinine Ratio 7.4 (10-20); Calcium 8.5 mg/dl (8.5-10.1); Est GFR (African American) 65.9; Est GFR (Non-African American) 56.9; Magnesium 1.6 mg/dl (1.8-2.4); Potassium 3.2 mmol/L (3.5-5.1)
[2018-11-24 02:39] LABS: Phosphorus 3.5 mg/dl (2.5-4.9)
[2018-11-24] MEDS: SODIUM CHLORIDE 0.45 % 1,000 ML IV SCH ×2 (05:43→16:19)
[2018-11-24] MEDS: OXYCODONE HCL IR 5 MG TAB (IMMEDIATE RELEASE) PO PRN ×4 (05:43→22:45)
[2018-11-24] MEDS ORDERED: METHYLPHENIDATE HCL 10 MG TABLET PO SCH (06:00)
[2018-11-24 07:22] LABS: BUN Creatinine Ratio 7.9 (10-20); Calcium 8.3 mg/dl (8.5-10.1); Creatinine Clr Calc Pharmacy 96.2 ml/min; Est GFR (African American) 72.5; Est GFR (Non-African American) 62.5; Magnesium 1.6 mg/dl (1.8-2.4); Phosphorus 3.1 mg/dl (2.5-4.9); Potassium 3.1 mmol/L (3.5-5.1)
[2018-11-24] MEDS: INSULIN ASPART 100 UNITS/ML 3 ML PEN SC SCH ×4 (07:34→22:35)
[2018-11-24] MEDS: METOPROLOL SUCC 50MG EXT REL TAB PO SCH (07:38)
[2018-11-24] MEDS: LISINOPRIL 20 MG TAB PO SCH (07:38)
[2018-11-24] MEDS: DULOXETINE HCL 20 MG CAP PO SCH (07:39)
[2018-11-24] MEDS: PANTOprazole 40 MG TAB PO SCH (07:39)
[2018-11-24] MEDS: METHYLPHENIDATE HCL 10 MG TABLET PO SCH ×2 (07:42→11:45)
[2018-11-24] MEDS: ALPRAZolam 0.5 MG TABLET PO PRN ×2 (07:46→20:48)
[2018-11-24] MEDS: MAGNESIUM SULFATE / D5W 1 GM/100 ML BAG IV SCH ×2 (08:42→09:59)
[2018-11-24] MEDS: POTASSIUM CHLORIDE 20 MEQ TABCR PO SCH ×3 (08:43→20:49)
[2018-11-24] MEDS ORDERED: INSULIN GLARGINE SOLOSTAR 100 UNITS/ML 3 ML PEN SC ONE (09:00)
[2018-11-24 11:00] LABS: BUN Creatinine Ratio 7.5 (10-20); Calcium 8.3 mg/dl (8.5-10.1); Creatinine Clr Calc Pharmacy 98.4 ml/min; Est GFR (African American) 74.5; Est GFR (Non-African American) 64.2; Magnesium 2.1 mg/dl (1.8-2.4); Potassium 3.4 mmol/L (3.5-5.1)
[2018-11-24 11:02] LABS: Phosphorus 2.4 mg/dl (2.5-4.9)
[2018-11-24] MEDS: THIAMINE HCL 100 MG TAB PO SCH ×2 (11:25→20:49)
[2018-11-24] MEDS: FOLIC ACID 1 MG TAB PO SCH (11:25)
--- NOTE | 2018-11-24 11:30 | XRay Report ---
LEFT SHOULDER 3 VIEWS HISTORY: impingement syndrome/tendonitis COMPARISON: None. FINDINGS: There is no fracture or dislocation. Soft tissues are unremarkable. No radiopaque foreign b odies. Minimal cartilage space narrowing within the glenohumeral joint consistent with developing deg enerative change. IMPRESSION: No fractures. Minimal degenerative change at the glenohumeral joint. Electronically signed by: Pete Lawson M.D. 11/24/2018 11:29 AM
[2018-11-24] MEDS: DICLOFENAC SOD 1% GEL 100 GM TUBE EXT SCH ×3 (11:45→20:49)
--- NOTE | 2018-11-24 15:21 | Pharmacy Report ---
Glycemic Control Progress Note - Date of Service November 24, 2018 - Scope Glycemic Pharmacist consulted for glycemic control to write orders per [facility] inpatient glycemic control protocol. - Objective Accuchecks BSG(last 24 hours):: 11/23/18 11/23/18 11/23/18 15:57 16:00 16:43 Glucose POC Glucose 418 H* 447 H* 414 H* 11/23/18 11/23/18 11/23/18 16:45 17:38 17:40 Glucose POC Glucose 422 H* 404 H* 389 H* 11/23/18 11/23/18 11/23/18 18:33 18:42 19:42 Glucose 383 H* POC Glucose 371 H* 331 H 11/23/18 11/23/18 11/23/18 20:40 21:40 22:45 Glucose 247 H POC Glucose 313 H 267 H 11/23/18 11/24/18 11/24/18 23:45 00:40 01:46 Glucose POC Glucose 223 H 200 H 238 H 11/24/18 11/24/18 11/24/18 02:10 02:25 03:32 Glucose 269 H POC Glucose 260 H 281 H 11/24/18 11/24/18 11/24/18 05:34 06:21 06:44 Glucose 221 H POC Glucose 207 H 216 H 11/24/18 11/24/18 11/24/18 07:26 08:28 09:26 Glucose POC Glucose 215 H 360 H* 422 H* 11/24/18 11/24/18 11/24/18 10:28 10:34 11:32 Glucose 345 H POC Glucose 366 H* 305 H 11/24/18 11/24/18 11/24/18 12:32 13:32 14:29 Glucose POC Glucose 361 H* 317 H 303 H - Recent Pertinent Medications The patient is currently receiving: * Basal insulin: Lantus 40 units X1 last evening in addition to insulin infusion * Correctional Insulin: Novolog Correction per scale [facility] Goal Range: Low 250 mg/dL - High 350 mg/dL Correction Factor: per calculator * Prandial insulin: Per calculator - Outpatient Anti-Diabetic Meds Basaglar 50 units BID 20 units TID before meals - Assessment & Plan ASSESSMENT: * Patient admitted with HHS with last known basal administration 11/22. Patient also indicated he has not been taking humolog at home. Patient started on insulin infusion and received one dose of 40 units of lantus last evening. BSG downtrending nicely until the patient started eating. I will order a fixed carb ratio as the insulin infusion calculator carb ratio is likely not enough. I will also lower the goal range of the insulin infusion. PLAN FOR INPATIENT GLYCEMIC CONTROL: * IV insulin infusion per severe stress protocol was started last evening (goal range 250-350), will continue but lower goal range * Goal Range 110 - 180 mg/dl * Basal insulin- will continue to dose with lantus in order to help ease eventual drip transition * Lantus 40 units SQ BID * Bolus insulin * NovoLog per scale PCHS * Correction Factor: per calculator * Nutritional / Prandial insulin per carb ratio of 1 unit per 3 grams CHO consumed * Please note that the plan above was derived based on current level of insulin resistance and hospital stress. These recommendations are appropriate for inpatient admission only. Plan of care upon discharge will need to be reassessed to avoid potential outpatient hypo/hyperglycemia. Thank you.
[2018-11-24 15:26] LABS: BUN Creatinine Ratio 7.1 (10-20); Calcium 8.2 mg/dl (8.5-10.1); Creatinine Clr Calc Pharmacy 87.2 ml/min; Est GFR (African American) 64.3; Est GFR (Non-African American) 55.5; Magnesium 1.9 mg/dl (1.8-2.4); Potassium 3.9 mmol/L (3.5-5.1)
[2018-11-24] MEDS: RIVAROXABAN 20 MG TAB PO SCH (16:20)
[2018-11-24] MEDS: INSULIN REGULAR 250 UNITS in SODIUM CHLORIDE 0.9% 247.5 ML IV SCH (17:17)
[2018-11-24] MEDS: GUAIFENESIN/CODEINE 100MG/10MG 5ML UDC PO PRN (18:22)
--- NOTE | 2018-11-24 20:26 | Hospitalist Progress Note ---
Date of Service November 24, 2018 Assessment & Plan (1) DM w/o complication type II, uncontrolled: Insurance formulary changes occurred about 1 month ago and patient reports he stopped taking novolog because of that. Our DM educator and social workers looked into this and his insurance will cover Admelog. They will continue to cover the basaglar. He is on insulin drip; pharmacy managing; should be able to wean off the drip later today. Once off drip continue lantus BID + novolog; then transition to basaglar & admelog at d/c. Present on Admission?: Yes (2) Acute kidney injury: 2nd to dehydration in setting of severe hyperglycemia at admission. Resolved. Present on Admission?: Yes (3) Dehydration: Resolving. Should be able to stop fluids in the AM. (4) Hyponatremia: Pseudohyponatremia from hyperglycemia + volume depletion - resolved. (5) Hemoptysis: associated with bronchitis in the setting of chronic anticoagulation - hemoptysis now resolved. CTA chest in 10/2018 negative for PE or other acute findings. Present on Admission?: No (6) Rotator cuff syndrome of left shoulder: voltaren gel QID. x-rays. consider injection if pain is refractory. is already set up for outpatient MRI. (7) Hypokalemia: KCL 40meq TID x 3 doses. serial labs. 2nd to hyperglycemia and wasting from such. (8) History of pulmonary embolus (PE): remains on xarelto chronically. (9) Depression: cont outpatient meds. (10) History of alcohol abuse: place on thiamine and folic acid. low threshold to institute etoh withdrawal pathway if symptoms/signs of etoh withdrawal but nothing to suggest such at this time. (11) DVT prophylaxis: xarelto could potentially d/c home tomorrow if stable off insulin drip & has decent glycemic control Subjective patient states his insurance changed its formulary coverage about 1 month ago and they no longer covered novolog. they did continue to cover his basaglar and thus he continued 50 units BID of such. he did not have bolus coverage however for the last few weeks. he reports battling "bronchitis" for at least 6-8 weeks. during the early phases of it he had hemoptysis - he showed me pictures of the phlegm on his phone. the hemoptysis has resolved. he cont with dry cough. no dyspnea. he also c/o left shoulder pain with movement. saw local PCP (Dr. Azevedo) and MRI left shoulder was ordered as outpatient. he plans to return to [facility] soon remains on insulin drip Constitutional: no fever Respiratory: + cough; no dyspnea and no dyspnea on exertion Cardiovascular: no chest pain Gastrointestinal: no abdominal pain, no nausea and no vomiting Physical Exam 2 Vital Signs (Past 24 Hours): Last Vital Signs Temp 36.4 C L 11/24/18 16:00 Pulse 75 11/24/18 17:00 Resp 20 11/24/18 16:00 BP 132/81 11/24/18 16:00 Pulse Ox 94 11/24/18 16:00 Constitutional: well developed and well nourished; no acute distress and not ill appearing ENMT: external ear and nose normal, oropharynx normal Respiratory: normal respiratory effort, lungs clear to auscultation Cardiovascular: RRR, no murmur, no edema Heart Sounds: normal S1 and normal S2 Vessels: posterior tibial pulses present and dorsalis pedis pulses present; no JVD Gastrointestinal (Abdomen): normal bowel sounds, soft, nontender, no hepatosplenomegaly Musculoskeletal: left shoulder - tender over subacromial bursa region; tender with passive external rotation and abduction of arm Psychiatric: A+Ox3, euthymic affect Results & Data Laboratory Results Laboratory Results - last 24 hr 11/23/18 11/23/18 11/23/18 20:40 21:40 22:45 Sodium 137 Potassium 3.2 L Chloride 100 Carbon Dioxide 29 Anion Gap 8.0 BUN 12 Creatinine 1.46 H Est Cr Clr Drug Dosing 89.0 Est GFR ( Amer) 65.9 Est GFR (Non-Af Amer) 56.9 BUN/Creatinine Ratio 8.5 L Glucose 247 H POC Glucose 313 H 267 H Calcium 9.2 Phosphorus 3.5 Magnesium 1.8 Beta-Hydroxybutyric Acd 11/23/18 11/24/18 11/24/18 23:45 00:40 01:46 Sodium Potassium Chloride Carbon Dioxide Anion Gap BUN Creatinine Est Cr Clr Drug Dosing Est GFR ( Amer) Est GFR (Non-Af Amer) BUN/Creatinine Ratio Glucose POC Glucose 223 H 200 H 238 H Calcium Phosphorus Magnesium Beta-Hydroxybutyric Acd 11/24/18 11/24/18 11/24/18 02:10 02:25 03:32 Sodium 136 Potassium 3.2 L Chloride 102 Carbon Dioxide 30 Anion Gap 4.0 BUN 11 Creatinine 1.46 H Est Cr Clr Drug Dosing 89.0 Est GFR ( Amer) 65.9 Est GFR (Non-Af Amer) 56.9 BUN/Creatinine Ratio 7.4 L Glucose 269 H POC Glucose 260 H 281 H Calcium 8.5 Phosphorus 3.5 Magnesium 1.6 L Beta-Hydroxybutyric Acd 11/24/18 11/24/18 11/24/18 05:34 06:21 06:44 Sodium 136 Potassium 3.1 L Chloride 103 Carbon Dioxide 26 Anion Gap 7.0 BUN 11 Creatinine 1.35 Est Cr Clr Drug Dosing 96.2 Est GFR ( Amer) 72.5 Est GFR (Non-Af Amer) 62.5 BUN/Creatinine Ratio 7.9 L Glucose 221 H POC Glucose 207 H 216 H Calcium 8.3 L Phosphorus 3.1 Magnesium 1.6 L Beta-Hydroxybutyric Acd 11/24/18 11/24/18 11/24/18 07:26 08:28 09:26 Sodium Potassium Chloride Carbon Dioxide Anion Gap BUN Creatinine Est Cr Clr Drug Dosing Est GFR ( Amer) Est GFR (Non-Af Amer) BUN/Creatinine Ratio Glucose POC Glucose 215 H 360 H* 422 H* Calcium Phosphorus Magnesium Beta-Hydroxybutyric Acd 11/24/18 11/24/18 11/24/18 10:28 10:34 11:32 Sodium 131 L Potassium 3.4 L Chloride 100 Carbon Dioxide 27 Anion Gap 4.0 BUN 10 Creatinine 1.32 Est Cr Clr Drug Dosing 98.4 Est GFR ( Amer) 74.5 Est GFR (Non-Af Amer) 64.2 BUN/Creatinine Ratio 7.5 L Glucose 345 H POC Glucose 366 H* 305 H Calcium 8.3 L Phosphorus 2.4 L Magnesium 2.1 Beta-Hydroxybutyric Acd 1.22 11/24/18 11/24/18 11/24/18 12:32 13:32 14:17 Sodium 135 L Potassium 3.9 Chloride 100 Carbon Dioxide 30 Anion Gap 4.0 BUN 11 Creatinine 1.49 H Est Cr Clr Drug Dosing 87.2 Est GFR ( Amer) 64.3 Est GFR (Non-Af Amer) 55.5 BUN/Creatinine Ratio 7.1 L Glucose 300 H POC Glucose 361 H* 317 H Calcium 8.2 L Phosphorus 2.0 L Magnesium 1.9 Beta-Hydroxybutyric Acd 11/24/18 11/24/18 11/24/18 14:29 15:31 16:32 Sodium Potassium Chloride Carbon Dioxide Anion Gap BUN Creatinine Est Cr Clr Drug Dosing Est GFR ( Amer) Est GFR (Non-Af Amer) BUN/Creatinine Ratio Glucose POC Glucose 303 H 287 H 252 H Calcium Phosphorus Magnesium Beta-Hydroxybutyric Acd 11/24/18 11/24/18 17:18 18:31 Sodium Potassium Chloride Carbon Dioxide Anion Gap BUN Creatinine Est Cr Clr Drug Dosing Est GFR ( Amer) Est GFR (Non-Af Amer) BUN/Creatinine Ratio Glucose POC Glucose 244 H 212 H Calcium Phosphorus Magnesium Beta-Hydroxybutyric Acd _ (1) DM w/o complication type II, uncontrolled Glycemic state: with hyperglycemia Qualified Code(s): E11.65 - Type 2 diabetes mellitus with hyperglycemia (2) Depression Depression Type: other depression Qualified Code(s): F32.89 - Other specified depressive episodes
[2018-11-24] MEDS: INSULIN GLARGINE SOLOSTAR 100 UNITS/ML 3 ML PEN SC SCH (20:50)
[2018-11-24] MEDS ORDERED: CHLORASEPTIC 1.4% SOLN 180 ML BTL MT PRN (21:42)
[2018-11-24] MEDS ORDERED: COUGH DROP (SUGAR FREE) LOZ 24 LOZ/1 BOX BUCCAL PRN (21:42)
[2018-11-24] MEDS ORDERED: BENZONATATE 100 MG CAPSULE PO ONE (22:00)
[2018-11-25] MEDS: ZOLPIDEM TARTRATE 10 MG TAB PO SCH ×2 (00:18→21:27)
[2018-11-25] MEDS ORDERED: INSULIN ASPART 100 UNITS/ML 3 ML PEN SC ONE (00:30)
[2018-11-25] MEDS: SODIUM CHLORIDE 0.45 % 1,000 ML IV SCH ×2 (02:26→11:43)
[2018-11-25] MEDS: INSULIN ASPART 100 UNITS/ML 3 ML PEN SC SCH ×5 (04:10→21:24)
[2018-11-25 06:29] LABS: BUN Creatinine Ratio 8.1 (10-20); Calcium 7.9 mg/dl (8.5-10.1); Creatinine Clr Calc Pharmacy 110.1 ml/min; Est GFR (African American) 85.3; Est GFR (Non-African American) 73.6; Potassium 3.7 mmol/L (3.5-5.1)
[2018-11-25] MEDS: OXYCODONE HCL IR 5 MG TAB (IMMEDIATE RELEASE) PO PRN ×3 (08:41→21:27)
[2018-11-25] MEDS: METHYLPHENIDATE HCL 10 MG TABLET PO SCH ×2 (08:41→11:43)
[2018-11-25] MEDS: DULOXETINE HCL 20 MG CAP PO SCH (08:42)
[2018-11-25] MEDS: METOPROLOL SUCC 50MG EXT REL TAB PO SCH (08:43)
[2018-11-25] MEDS: FOLIC ACID 1 MG TAB PO SCH (08:43)
[2018-11-25] MEDS: PANTOprazole 40 MG TAB PO SCH (08:43)
[2018-11-25] MEDS: LISINOPRIL 20 MG TAB PO SCH (08:43)
[2018-11-25] MEDS: THIAMINE HCL 100 MG TAB PO SCH ×2 (08:43→19:18)
[2018-11-25] MEDS: DICLOFENAC SOD 1% GEL 100 GM TUBE EXT SCH ×4 (08:44→21:30)
[2018-11-25] MEDS: INSULIN GLARGINE SOLOSTAR 100 UNITS/ML 3 ML PEN SC SCH ×2 (08:44→21:23)
[2018-11-25] MEDS: ALPRAZolam 0.5 MG TABLET PO PRN ×2 (08:54→19:18)
[2018-11-25] MEDS: GUAIFENESIN/CODEINE 100MG/10MG 5ML UDC PO PRN (11:47)
--- NOTE | 2018-11-25 13:43 | Pharmacy Report ---
Pharmacy Glycemic Short Note 2 - Date of Service November 25, 2018 - Glycemic Short BSG Results (Last 24 hours): 11/24/18 11/24/18 11/24/18 13:32 14:17 14:29 Glucose 300 H POC Glucose 317 H 303 H 11/24/18 11/24/18 11/24/18 15:31 16:32 17:18 Glucose POC Glucose 287 H 252 H 244 H 11/24/18 11/24/18 11/24/18 18:31 20:32 21:16 Glucose POC Glucose 212 H 140 H 177 H 11/24/18 11/24/18 11/25/18 22:27 23:04 00:06 Glucose POC Glucose 110 H 117 H 121 H 11/25/18 11/25/18 11/25/18 02:22 03:59 05:28 Glucose 134 H POC Glucose 125 H 146 H 11/25/18 11/25/18 07:00 11:05 Glucose POC Glucose 131 H 223 H OUTPATIENT ANTIDIABETIC REGIMEN: * Basaglar 50 units BID, Novolog 20 units AC * A1c 10.9% 11/20/18 ASSESSMENT: * Patient transitioned off of insulin drip yesterday, fasting this AM 131 * Patient's outpatient regimen estimates lantus 40 BID, CF 10, CR 3 * Patient started on CF 20, CR 6 with elevated post prandial BSG this morning in the 200s- will tighten * No change in lantus for now PLAN FOR INPATIENT GLYCEMIC CONTROL: * Hold outpatient oral diabetes medications * Basal insulin * Lantus 40 units SQ BID * Bolus insulin * NovoLog per scale ACHS or Q6hrs while NPO * Goal Range: Low 110 mg/dL - High 180 mg/dL * Correction Factor: 20 mg/dL/unit * Nutritional / Prandial insulin per carb ratio of 1 unit per 4 grams CHO consumed
[2018-11-25] MEDS: RIVAROXABAN 20 MG TAB PO SCH (15:35)
--- NOTE | 2018-11-25 16:52 | Discharge Summary ---
Date of Service November 26, 2018 Admission HPI Per Admitting Provider 48 y/o M c/o elevated BS. Pt states he was doing well with his DM management until 1 month ago when his insurance would no longer cover his novolog. Pt was able to continue taking his long acting insulin and has been watching his diet as well. He monitors his BS and his meter was not able to read them as they were >600. He started to feel lightheaded, nauseated, abd cramping, increased thirst and urination, and diarrhea over the last two days, much worse today. He was seen by PCP last Friday. Labs were checked. His A1c had been in the 5 range, it was 10.8 on recheck last week. He was to have f/u with PCP today, however he developed these sx and came to the ED instead. Pt denies fever, SOB, chest pain, abd pain, LE pain or swelling. Principal Diagnosis Hyperosmolar hyperglycemic state Discharge Exam Constitutional WD/WN, vitals as above Eyes PERRL, conjunctivae normal, anicteric sclerae ENMT external ear and nose normal, oropharynx normal Neck trachea midline, no thyromegaly Respiratory normal respiratory effort, lungs clear to auscultation Cardiovascular RRR, no murmur, no edema Gastrointestinal (Abdomen) normal bowel sounds, soft, nontender, no hepatosplenomegaly Musculoskeletal Extremities: no cyanosis and no clubbing Skin no rashes, warm and dry Neurologic moves all extremities and awake; no focal motor deficits Psychiatric A+Ox3, euthymic affect Discharge Data Allergies Allergy/AdvReac Type Severity Reaction Status Date / Time iodine Allergy Severe THROAT Verified 11/23/18 15:00 SWELLING shellfish derived Allergy Severe THROAT Verified 11/23/18 15:00 SWELLING Iodinated Contrast- Oral and Allergy Intermediate swelling Verified 11/23/18 15: 00 IV Dye acetaminophen AdvReac Intermediate GI ISSUES Verified 11/23/18 15:00 hydrocodone AdvReac Intermediate GI ISSUES Verified 11/23/18 15:00 Plasma, Human Allergy Severe ANAPHYLAXIS Uncoded 11/23/18 15:00 Consultations Cardiology Procedures Performed Stress ECHO Resting ECHO Ordered Studies Left shoulder xray CXR Hospital Course (1) DM w/o complication type II, uncontrolled: Blood sugars greater than 600-900 upon admission, with [facility] Insurance formulary changes occurred about 1 month ago and patient reports he stopped taking novolog because of that. Our DM educator and social workers looked into this and his insurance will cover Admelog-[facility] and they are ordering this in and will be available tomorrow They will continue to cover the basaglar 20 units bid -continue insulin lispro 12 units qac and adjust as outpt Blood sugars much improved, hemoglobin A1c here significantly elevated at 10.9% (2) Acute kidney injury: 2nd to dehydration in setting of severe hyperglycemia at admission. Resolved. (3) Dehydration: Resolved, secondary to hyperglycemia DC IV fluids (4) Hyponatremia: Pseudohyponatremia from hyperglycemia + volume depletion - resolved. (5) Hemoptysis: associated with bronchitis in the setting of chronic anticoagulation - hemoptysis now resolved. CTA chest in 10/2018 negative for PE or other acute findings. (6) Rotator cuff syndrome of left shoulder: voltaren gel QID. x-rays. consider injection if pain is refractory. is already set up for outpatient MRI, yet patient continues to request that it be done inpatient so that it will "be covered by insurance"-explained that it would not be covered as is not related to the reason for this hospital admission. (7) Hypokalemia: 2nd to hyperglycemia and wasting from such. Replaced with p.o. potassium and now resolved (8) History of pulmonary embolus (PE): Has had for episodes of VTE, reports being seen by a specialist at [place] and had a negative genetic workup -Remains on xarelto chronically. (9) Depression: cont outpatient meds. (10) History of alcohol abuse: place on thiamine and folic acid. low threshold to institute etoh withdrawal pathway if symptoms/signs of etoh withdrawal but nothing to suggest such at this time. (11) Abnormal EKG: Has had numerous ECGs in the past which showed T wave inversions throughout the precordial leads, as well as some ST elevation almost diffusely. This is intermittent. T wave inversions on ECG on hospital day #3 are actually now resolved. -Troponin negative x2 here I do not believe his left shoulder pain is cardiac in nature as it is musculoskeletal -he had a resting EHCO which showed mild LVH, otherwise normal Cardiology was consulted and decided to pursue exercise stress ECHO which was negative for inducible ischemia -advised he has an abnormal appearing ECG but normal functioning heart -continue to monitor for HTN and treat accordingly with PCP (12) DVT prophylaxis: xarelto Disposition-stable for dc to home Total Time Total Time Spent Total Time Spent (In Minutes): >30 min Total Time Includes: Examination of the Patient, Discharge Planning, Medication Reconciliation and Communication With Other Providers (Cardiology) Discharge Plan Discharge Items Patient Disposition: Home - Self-Care Reason For Visit: HYPERGLYCEMIA Discharge Diagnosis: Diabetes mellitus with hyperglycemia Condition: Good Discharge Goals: Decrease discomfort, Learn about illness and Therapeutic intervention Activity: Resume your previous activity Lifting: Gradually increase as tolerated Bathing: No limitations Exercise/Sports: Gradually increase as tolerated Non-emergency contact: Primary Care Provider Call non-emergency contact if: you have any medication questions and your symptoms worsen Follow-up/Referrals: Edgardo Azevedo, DO [Primary Care Provider] - 12/01/18 9:20 am (Please, follow up with Dr. Edgardo Azevedo on FridayDecember 01 at 9:20 am. *If you need to change this appointment, call the office at [phone].) Diet: Carb Consistent or DM2 and Heart Healthy Addtl Provider Instructions: You were admitted with high blood sugars due to running out of your insulin. Please continue the insulin regimen as prescribed for you from the hospital. Please follow up with Dr. Azevedo for your other chronic issues such as your left shoulder pain and you cough. Prescriptions: New diclofenac sodium [Voltaren] 1 % Gel 1 % EXT QID PRN (Reason: shoulder pain) Qty: 100 RF: 0 folic acid 1 mg Tablet 1 mg PO QAM Qty: 30 RF: 0 thiamine HCl (vitamin B1) [Vitamin B-1] 100 mg Tablet 100 mg PO BID Qty: 30 RF: 0 insulin glargine [Basaglar KwikPen U-100 Insulin] 100 unit/mL (3 mL) Insulin Pen 40 unit SUBCUT BID Qty: 15 RF: 0 albuterol sulfate 90 mcg/actuation HFA aerosol inhaler 2 inha INH Q4H PRN (Reason: cough) Qty: 18 RF: 0 insulin lispro [Admelog SoloStar U-100 Insulin] 100 unit/mL insulin pen 12 units SQ AC Qty: 15 RF: 0 Continue alprazolam [Xanax] 1 mg Tablet 1 mg PO TID PRN (Reason: Anxiety) RF: 0 escitalopram oxalate [Lexapro] 20 mg Tablet 20 mg PO QAM RF: 0 lisinopril 20 mg Tablet 20 mg PO QAM RF: 0 methylphenidate HCl [Ritalin] 20 mg Tablet 20 mg PO BID RF: 0 oxycodone 10 mg Tablet 5 - 10 mg PO Q4H PRN (Reason: Pain) RF: 0 pantoprazole 40 mg Tablet,Delayed Release (Dr/Ec) 40 mg PO QAM RF: 0 rivaroxaban [Xarelto] 20 mg Tablet 20 mg PO PM RF: 0 zolpidem [Ambien] 10 mg Tablet 10 mg PO HS RF: 0 duloxetine [Cymbalta] 20 mg Capsule,Delayed Release(Dr/Ec) 20 mg PO QAM RF: 0 methocarbamol 500 mg tablet 500 mg PO TID PRN (Reason: Muscle Spasm) RF: 0 metoprolol succinate 100 mg tablet extended release 24 hr 150 mg PO QAM RF: 0 epinephrine 0.3 mg/0.3 mL auto-injector 0.3 mg IM UD RF: 0 metformin 500 mg tablet 500 mg PO BID Qty: 60 RF: 0 Discontinued insulin aspart U-100 100 unit/mL Solution 20 unit SUBCUT AC RF: 0 codeine-guaifenesin [Guaifenesin AC] 10-100 mg/5 mL liquid 10 ml PO HS Qty: 118 RF: 0 cefdinir 300 mg capsule 300 mg PO BID Qty: 14 RF: 0 Stand-Alone Forms: [facility] Discharge Orders: Discharge Order (Routine); Ordered 11/26/18 Ordered By: Charley Gallardo Admission Data Admit Date/Time: 11/23/18 17:03 Attending Provider: Charley Gallardo Admit Provider: Desiree Preciado Primary Care Provider: Edgardo Azevedo Other Providers: Desiree Preciado ; Daniel Moncada Service: Telemetry Other Pending Studies at Discharge: No
--- NOTE | 2018-11-25 17:11 | Hospitalist Progress Note ---
Date of Service November 25, 2018 Assessment & Plan (1) Abnormal EKG: Has had numerous ECGs in the past which showed T wave inversions throughout the precordial leads, as well as some ST elevation almost diffusely. This is intermittent. T wave inversions on ECG today are actually now resolved. He reports no stress test in at least 5 years and has not had any imaging of the heart such as echocardiogram -Troponin negative x2 here I do not believe his left shoulder pain is cardiac in nature as it is musculoskeletal -Despite this, I feel he should stay overnight for continued telemetry monitoring, resting echocardiogram, possible stress echocardiogram, and evaluation with cardiology (2) DM w/o complication type II, uncontrolled: Blood sugars greater than 600 upon admission Insurance formulary changes occurred about 1 month ago and patient reports he stopped taking novolog because of that. Our DM educator and social workers looked into this and his insurance will cover Admelog-called his [facility] and they do not have this type of insulin-we will have to find a different pharmacy for this. They will continue to cover the basaglar which is [place] called into [facility]. He is now off the insulin drip; pharmacy managing and on Lantus Blood sugars much improved, hemoglobin A1c here significantly elevated at 10.9% -Lantus BID + novolog; then transition to basaglar & admelog at d/c. (3) Acute kidney injury: 2nd to dehydration in setting of severe hyperglycemia at admission. Resolved. (4) Dehydration: Resolved, secondary to hyperglycemia DC IV fluids (5) Hyponatremia: Pseudohyponatremia from hyperglycemia + volume depletion - resolved. (6) Hemoptysis: associated with bronchitis in the setting of chronic anticoagulation - hemoptysis now resolved. CTA chest in 10/2018 negative for PE or other acute findings. (7) Rotator cuff syndrome of left shoulder: voltaren gel QID. x-rays. consider injection if pain is refractory. is already set up for outpatient MRI, yet patient continues to request that it be done inpatient so that it will "be covered by insurance"-explained that it would not be covered as is not related to the reason for this hospital admission. (8) Hypokalemia: 2nd to hyperglycemia and wasting from such. Replaced with p.o. potassium and now resolved (9) History of pulmonary embolus (PE): Has had for episodes of VTE, reports being seen by a specialist at [place] and had a negative genetic workup -Remains on xarelto chronically. (10) Depression: cont outpatient meds. (11) History of alcohol abuse: place on thiamine and folic acid. low threshold to institute etoh withdrawal pathway if symptoms/signs of etoh withdrawal but nothing to suggest such at this time. (12) DVT prophylaxis: xarelto Disposition-remain on telemetry overnight for further cardiac workup given abnormal ECGs Subjective Blood sugars are much improved today. Plan was for discharge, but his ECG review revealed dynamically changing and abnormal EKGs. Patient has been having constant left shoulder pain as well as pain under the left clavicle for 6 weeks. It is not worse with exertion. It is worse with movement of the left upper extremity such as reaching overhead. He also reports a cough for 6 weeks and is requesting a prescription for cough syrup with codeine on top of his normal oxycodone for when he goes home which I promptly declined. I discussed his EKGs with the fitness coordinator on the phone-decision made to keep him overnight for more of a cardiac workup -Telemetry with normal sinus rhythm, rates in the 70s Review of Systems All systems reviewed & are unremarkable except as noted in HPI & below (Denies shortness of breath, but with chronic cough for 6 weeks, no abdominal pain or nausea, he is tolerating p.o. well) Physical Exam 2 Vital Signs (Past 24 Hours): Last Vital Signs Temp 37.4 C 11/25/18 15:25 Pulse 79 11/25/18 15:25 Resp 16 11/25/18 15:25 BP 144/80 H 11/25/18 15:25 Pulse Ox 97 11/25/18 15:25 Constitutional: WD/WN, vitals as above Eyes: PERRL, conjunctivae normal, anicteric sclerae ENMT: external ear and nose normal, oropharynx normal Neck: trachea midline, no thyromegaly Respiratory: normal respiratory effort, lungs clear to auscultation Cardiovascular: RRR, no murmur, no edema Gastrointestinal (Abdomen): normal bowel sounds, soft, nontender, no hepatosplenomegaly Musculoskeletal: Extremities: extremities normal to inspection (He is able to raise his left upper extremity over his head but causes pain, positive tenderness palpation over the left anterior shoulder); no cyanosis and no clubbing Skin: no rashes, warm and dry Neurologic: moves all extremities and awake; no focal motor deficits Psychiatric: A+Ox3, euthymic affect Results & Data Laboratory Results 11/26/18 11/25/18 11/25/18 Range/Units 05:32 20:18 16:35 Sodium 140 (136-145) mmol/L Potassium 3.7 (3.5-5.1) mmol/L Chloride 108 H (98-107) mmol/L Carbon Dioxide 29 (21-32) mmol/L Anion Gap 3.0 (3-11) BUN 9 (7-18) mg/dl Creatinine 1.26 (0.6-1.4) mg/dl Est Cr Clr Drug Dosing 102.0 ml/min Est GFR ( Amer) 78.8 Est GFR (Non-Af Amer) 68.0 BUN/Creatinine Ratio 7.0 L (10-20) Glucose 104 H (70-99) mg/dl POC Glucose 93 143 H (70-99) Calcium 7.9 L (8.5-10.1) mg/dl Phosphorus 2.8 (2.5-4.9) mg/dl Magnesium 1.9 (1.8-2.4) mg/dl Troponin I (0-0.045) ng/ml 11/25/18 11/25/18 11/25/18 Range/Units 11:05 09:21 07:00 Sodium (136-145) mmol/L Potassium (3.5-5.1) mmol/L Chloride (98-107) mmol/L Carbon Dioxide (21-32) mmol/L Anion Gap (3-11) BUN (7-18) mg/dl Creatinine (0.6-1.4) mg/dl Est Cr Clr Drug Dosing ml/min Est GFR ( Amer) Est GFR (Non-Af Amer) BUN/Creatinine Ratio (10-20) Glucose (70-99) mg/dl POC Glucose 223 H 131 H (70-99) Calcium (8.5-10.1) mg/dl Phosphorus (2.5-4.9) mg/dl Magnesium (1.8-2.4) mg/dl Troponin I < 0.015 (0-0.045) ng/ml _ (1) Depression Active/Remission status: Depression Type: other depression Major depression episode severity: Major depression recurrence: Psychotic features : Trimester: Qualified Code(s): F32.89 - Other specified depressive episodes (2) DM w/o complication type II, uncontrolled Coma presence: Glycemic state: with hyperglycemia Qualified Code(s): E11.65 - Type 2 diabetes mellitus with hyperglycemia
[2018-11-26] MEDS: OXYCODONE HCL IR 5 MG TAB (IMMEDIATE RELEASE) PO PRN ×3 (04:31→14:22)
[2018-11-26 06:16] LABS: Calcium 7.9 mg/dl (8.5-10.1); Est GFR (African American) 78.8; Magnesium 1.9 mg/dl (1.8-2.4); Potassium 3.7 mmol/L (3.5-5.1)
[2018-11-26 06:18] LABS: Phosphorus 2.8 mg/dl (2.5-4.9)
[2018-11-26] MEDS: FOLIC ACID 1 MG TAB PO SCH (07:41)
[2018-11-26] MEDS: THIAMINE HCL 100 MG TAB PO SCH (07:41)
[2018-11-26] MEDS: DULOXETINE HCL 20 MG CAP PO SCH (07:42)
[2018-11-26] MEDS: LISINOPRIL 20 MG TAB PO SCH (07:42)
[2018-11-26] MEDS: PANTOprazole 40 MG TAB PO SCH (07:42)
[2018-11-26] MEDS: METOPROLOL SUCC 50MG EXT REL TAB PO SCH (07:42)
[2018-11-26] MEDS: INSULIN ASPART 100 UNITS/ML 3 ML PEN SC SCH ×2 (07:44→12:02)
[2018-11-26] MEDS: METHYLPHENIDATE HCL 10 MG TABLET PO SCH ×2 (07:49→12:01)
[2018-11-26] MEDS: DICLOFENAC SOD 1% GEL 100 GM TUBE EXT SCH ×2 (07:54→12:03)
[2018-11-26] MEDS ORDERED: INSULIN GLARGINE SOLOSTAR 100 UNITS/ML 3 ML PEN SC SCH ×2 (09:00→21:00)
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
== END 2018-11-26 15:43 | disposition home or self-care (01) | DRG 638 ==
LOC: ED 12:33 → SUATTDRO 17:03 → 2E 17:03
DX: T38.3X6A Underdosing of insulin and oral hypoglycemic [antidiabetic] drugs, initial encounter; M75.102 Unspecified rotator cuff tear or rupture of left shoulder, not specified as traumatic; N17.9 Acute kidney failure, unspecified; Z79.899 Other long term (current) drug therapy; Z79.01 Long term (current) use of anticoagulants; R94.31 Abnormal electrocardiogram [ECG] [EKG]; Z86.718 Personal history of other venous thrombosis and embolism; J40 Bronchitis, not specified as acute or chronic; F32.9 Major depressive disorder, single episode, unspecified; E87.6 Hypokalemia; Z86.59 Personal history of other mental and behavioral disorders; Z91.013 Allergy to seafood; F98.8 Other specified behavioral and emotional disorders with onset usually occurring in childhood and adolescence; Z88.6 Allergy status to analgesic agent; Z88.8 Allergy status to other drugs, medicaments and biological substances; F41.0 Panic disorder [episodic paroxysmal anxiety]; Z86.711 Personal history of pulmonary embolism; Z88.5 Allergy status to narcotic agent; E86.0 Dehydration; Z91.041 Radiographic dye allergy status; E11.65 Type 2 diabetes mellitus with hyperglycemia; R07.9 Chest pain, unspecified; Z79.4 Long term (current) use of insulin; E87.1 Hypo-osmolality and hyponatremia; Z91.120 Patient's intentional underdosing of medication regimen due to financial hardship; E11.00 Type 2 diabetes mellitus with hyperosmolarity without nonketotic hyperglycemic-hyperosmolar coma (NKHHC); D68.59 Other primary thrombophilia

== ENCOUNTER 2019-02-25 23:51 | Inpatient (IN) ==
[2019-02-26] MEDS ORDERED: KETOROLAC 30 MG/ML VIAL IV STA (00:31)
[2019-02-26 00:51] LABS: Basophils # (auto) 0.03 K/uL (0-0.2); Basophils % (auto) 0.4 %; Eosinophils # (auto) 0.19 K/uL (0-0.5); Eosinophils % (auto) 2.6 %; Hematocrit (blood only) 40.6 % (42-52); Hemoglobin 14.7 g/dL (14.0-18.0); Immature Granulocytes # (auto) 0.01 K/uL (0.00-0.02); Immature Granulocytes % (auto) 0.1 %; Lymphocytes # (auto) 3.19 K/uL (1.2-3.4); Mean Corpuscular Hgb Conc 36.2 g/dL (32-36); Mean Corpuscular Volume 84.9 fL (80-100); Mean Platelet Volume 11.8 fL (7.4-10.4); Monocytes # (auto) 0.39 K/uL (0.11-0.59); Monocytes % (auto) 5.3 %; Neutrophils # (auto) 3.61 K/uL (1.4-6.5); Neutrophils % (auto) 48.6 %; Platelet Count 272 K/uL (130-400); RDW Coefficient of Variation 13.7 % (11.5-14.5); RDW Standard Deviation 41.9 fL (36.4-46.3); Red Blood Count 4.78 M/uL (4.7-6.1); White Blood Count 7.42 K/uL (4.8-10.8)
[2019-02-26 01:00] LABS: Alanine Aminotransferase 69 U/L (12-78); Albumin Level 3.6 gm/dl (3.4-5.0); Aspartate Aminotransferase 92 U/L (15-37); BUN Creatinine Ratio 9.4 (10-20); Blood Urea Nitrogen 14 mg/dl (7-18); Calcium 8.6 mg/dl (8.5-10.1); Carbon Dioxide 25 mmol/L (21-32); Chloride 109 mmol/L (98-107); Creatinine Clr Calc Pharmacy 91.2 ml/min; Est GFR (African American) 66.5; Est GFR (Non-African American) 57.3; Glucose 127 mg/dl (70-99); Potassium 3.7 mmol/L (3.5-5.1); Sodium 141 mmol/L (136-145)
[2019-02-26 01:02] LABS: D Dimer 250 ug/L FEU (0-500)
[2019-02-26 01:04] LABS: Albumin Globulin Ratio 0.8 (0.9-2); Alkaline Phosphatase 114 U/L (45-117); Bilirubin,Total 0.3 mg/dl (0.2-1); Globulin 4.4 gm/dl (2.5-4.0); Troponin I < 0.015 ng/ml (0-0.045)
[2019-02-26] MEDS ORDERED: DICLOFENAC SOD 1% GEL 100 GM TUBE EXT PRN (03:53)
[2019-02-26] MEDS ORDERED: MoRPHine SULFATE 4 MG/ML 1 ML CARP\\VIAL IV PRN (03:53)
[2019-02-26] MEDS ORDERED: ONDANSETRON INJ 2 MG/ML 2 ML VIAL IV PRN (03:53)
[2019-02-26] MEDS ORDERED: MAGNESIUM HYDROXIDE SUSP 30 ML UDC PO PRN (03:53)
[2019-02-26] MEDS ORDERED: ACETAMINOPHEN 325 MG TAB PO PRN (03:53)
[2019-02-26] MEDS ORDERED: ALUMINUM/MAGNESIUM SUSP 30 ML UDC PO PRN (03:53)
[2019-02-26] MEDS ORDERED: NSS + 20MEQ KCL 20 MEQ/1,000 ML BAG IV SCH (03:53)
[2019-02-26] MEDS ORDERED: METHOCARBAMOL 500 MG TABLET PO PRN (03:53)
[2019-02-26] MEDS ORDERED: NITROGLYCERIN SL 0.4 MG/TAB TAB SL PRN (03:53)
[2019-02-26] MEDS ORDERED: ALBUTEROL HFA 8 GM INHALER INH PRN (03:53)
[2019-02-26 04:08] VITALS: TEMP 98.6; O2SAT 93
--- NOTE | 2019-02-26 04:10 | History & Physical Report ---
Date of Service February 26, 2019 Assessment & Plan (1) Left-sided chest pain: Chest pain/hypertension/CKD stage III Patient presents with left-sided chest pain and EKG with ischemic type changes, T wave inversions in leads V4, V5 and V6 that are new compared to previous. The patient will be admitted to telemetry for serial cardiac enzymes, serial EKG's, cardiac rhythm monitoring and a 2-D echocardiogram with Dopplers. We will change from Xopenex to IV heparin at 8:30 this AM, Pending evaluation by cardiology. Continue metoprolol succinate 150 mg p.o. every morning with hold parameters. Aspirin 81 mg p.o. every morning. Present on Admission?: Yes (2) Left-sided weakness: Patient as above presented with left shoulder discomfort and left arm weakness, and also reports he noticed his left leg weakness when he has been working out recently. No CT at yet been ordered in the ED, will therefore order an MRI of the brain, with which we can assess both for bleeding while on Xarelto, and for any possible acute stroke. Present on Admission?: Yes (3) Hypertriglyceridemia: Not presently listed as being on any medication. We will check a fasting lipid panel. Present on Admission?: Yes (4) Chronic pain: Continue duloxetine. Continue PRN methocarbamol. Continue oxycodone 5 mg p.o. every 4 hours as needed for moderate pain. Add morphine sulfate 4 mg IV every 3 hours as needed severe pain. Present on Admission?: Yes (5) CKD (chronic kidney disease), stage III: See above Present on Admission?: Yes (6) Hypertension: See above Present on Admission?: Yes (7) Esophagitis: Continue pantoprazole 40 mg every morning Present on Admission?: Yes (8) History of pulmonary embolus (PE): History of pulmonary embolism/chronic anticoagulation- Has been on Xarelto 20 mg daily, usually taking it around 8:30 AM. The Xarelto will be discontinued at 830 this a.m., in favor of IV heparin standard dosing via protocol. Present on Admission?: Yes (9) Chronic anticoagulation: As above. Present on Admission?: Yes (10) Anxiety: Anxiety/depression- Continue duloxetine, methylphenidate, and alprazolam. Present on Admission?: Yes (11) History of alcohol abuse: History of Present Illness Chief Complaint: The patient presents to the emergency department with left- sided chest pain and shoulder pain, initially began several months ago, with worsening over the past month. He also describes weakness of his left arm and left leg worsening over the past week or so. Primary Care Provider: Edgardo Azevedo DO The patient is a 48-year-old male with a past medical history including diabetes mellitus insulin-dependent, pulmonary embolism, hypertriglyceridemia, esophagitis, CKD stage III, history of alcohol abuse, hypertension and anxiety who presents to the emergency department with progressively worsening symptoms of left shoulder and chest discomfort, left arm and leg decreased strength, and EKG changes suggestive of lateral ischemia with T wave inversions in leads V4, V5 and V6. Allergies Allergy/AdvReac Type Severity Reaction Status Date / Time iodine Allergy Severe THROAT Verified 02/26/19 00:55 SWELLING shellfish derived Allergy Severe THROAT Verified 02/26/19 00:55 SWELLING Iodinated Contrast- Oral and Allergy Intermediate swelling Verified 02/26/19 00:55 IV Dye acetaminophen AdvReac Intermediate GI ISSUES Verified 02/26/19 00:55 hydrocodone AdvReac Intermediate GI ISSUES Verified 02/26/19 00:55 Plasma, Human Allergy Severe ANAPHYLAXIS Uncoded 01/28/19 19:06 Home Medications Home Medications Medication Instructions Recorded Confirmed Type Xarelto 20 mg PO PM 10/22/18 02/26/19 History alprazolam [Xanax] 1 mg PO TID 10/22/18 02/26/19 History duloxetine [Cymbalta] 20 mg PO QAM 10/22/18 02/26/19 History methylphenidate HCl [Ritalin] 20 mg PO BID 10/22/18 02/26/19 History oxycodone 5 - 10 mg PO Q4H PRN 10/22/18 02/26/19 History pantoprazole 40 mg PO QAM 10/22/18 02/26/19 History zolpidem [Ambien] 10 mg PO HS 10/22/18 02/26/19 History methocarbamol 500 mg PO TID PRN 11/23/18 02/26/19 History metoprolol succinate 150 mg PO QAM 11/23/18 02/26/19 History diclofenac sodium [Voltaren] 1 % EXT QID PRN #100 gm 11/25/18 02/26/19 Rx metformin 500 mg PO BID #60 tab 11/25/18 02/26/19 Rx albuterol sulfate 2 inha INH Q4H PRN #18 gm 11/26/18 02/26/19 Rx insulin lispro [Admelog SoloStar 12 units SQ AC #15 ml 11/26/18 02/26/19 Rx U-] insulin glargine [Basaglar KwikPen 50 unit SUBCUT BID 02/26/19 02/26/19 History U-100 Insulin] Past Med/Surg History Medical History Vitamin D deficiency (Acute) Uncontrolled type 2 diabetes mellitus with insulin therapy (Acute) Seafood allergy (Acute) Pulmonary embolism (Acute) Precordial chest pain (Acute) Obesity (Acute) Myalgia and myositis (Acute) Lesion of liver (Acute) Insomnia (Acute) Hypertriglyceridemia (Acute) Gastrointestinal hemorrhage (Acute) Esophagitis (Acute) Chronic use of opiate for therapeutic purpose (Acute) Chronic pain (Acute) Chest pain (Acute) CKD (chronic kidney disease), stage III (Acute) History of pleural effusion (Resolved) Abnormal EKG Hypertension (Acute) Alcohol intoxication Blood clot in vein Chest pain Fall GI bleed Hemoptysis Left ankle sprain Pulmonary emboli Right knee pain Transaminitis Family History Mother , s/p brain aneurysm Aneurysm Other Hypertension Social History Preferred Language: [place] Communication Ability: Effective Beliefs That Will Affect Care: Latter Day Latter Day Beliefs: Mormonism marital status: Single Current Living Situation: Alone current occupational status: disabled Feels Safe at Home: Yes Safety Concerns: Feels Safe At This Time Smoking Status: Never smoker Hx Alcohol Use: No Hx Substance Use: No Review of Systems Review of Systems: The patient denies palpitations, cough, lower extremity swelling, sore throat, fevers, chills, sweats, weight change, fatigue, nausea, vomiting, diarrhea , constipation, abdominal pain, pelvic pain, blood in urine or stool, dysuria, urinary frequency or urgency, lightheadedness, dizziness, headache, memory loss, loss of consciousness, rash, abnormal bruising or bleeding, imbalance, focal weakness, numbness or tingling in right arm or leg, generalized arthralgias or myalgias, neck pain, or night sweats. The review of systems is otherwise negative other than for that already noted above, and at least 10 systems have been reviewed. Physical Exam Physical Exam: The patient is awake, alert and oriented 3, well developed and well nourished, normocephalic and atraumatic, lying in bed and in no acute distress. HEENT--PERRL, EOMI, mucous membranes and oropharynx normal. Neck--supple. No JVD. No bruits. Thyroid normal, trachea midline, no adenopathy. Heart--normal S1 and S2. No murmurs, rubs or gallops. Lungs--clear bilaterally, no respiratory distress, no accessory muscle use. Abdomen--normal bowel sounds and soft. Nontender. Nondistended. Obese. Extremities--no cyanosis or clubbing. No edema. There are good distal pulses b/l. Dermatologic--normal skin turgor, normal color, no abnormal lymph nodes, no rash. Neurologic--cranial nerves II through XII grossly intact. Rheumatologic--normal range of motion. Psychiatric--normal affect. Results & Data Vital Signs (Past 12 Hours) Vital Signs Temp Pulse Pulse Resp BP BP Pulse Ox 02/26/19 03:45 98.6 F 78 18 159/79 H 93 02/26/19 02:49 76 16 152/88 H 95 02/26/19 01:39 76 16 148/75 H 96 02/26/19 00:36 72 16 138/81 94 02/26/19 00:31 95 02/26/19 00:06 95 02/25/19 23:56 98.2 F 74 16 138/79 96 Laboratory Results Laboratory Results WBC 6.76 K/uL (4.8-10.8) 02/26/19 04:13 RBC 4.37 M/uL (4.7-6.1) L 02/26/19 04:13 Hgb 13.3 g/dL (14.0-18.0) L 02/26/19 04:13 Hct 37.4 % (42-52) L 02/26/19 04:13 MCV 85.6 fL (80-100) 02/26/19 04:13 MCH 30.4 pg (25-34) 02/26/19 04:13 MCHC 35.6 g/dL (32-36) 02/26/19 04:13 RDW Std Deviation 42.8 fL (36.4-46.3) 02/26/19 04:13 RDW Coeff of Lillie 13.8 % (11.5-14.5) 02/26/19 04:13 Plt Count 229 K/uL (130-400) 02/26/19 04:13 MPV 11.4 fL (7.4-10.4) H 02/26/19 04:13 Immature Gran % (Auto) 0.1 % 02/26/19 04:13 Neut % (Auto) 43.9 % 02/26/19 04:13 Lymph % (Auto) 49.3 % 02/26/19 04:13 [place] % (Auto) 4.9 % 02/26/19 04:13 Eos % (Auto) 1.5 % 02/26/19 04:13 Baso % (Auto) 0.3 % 02/26/19 04:13 Immature Gran # (Auto) 0.01 K/uL (0.00-0.02) 02/26/19 04:13 Neut # (Auto) 2.97 K/uL (1.4-6.5) 02/26/19 04:13 Lymph # (Auto) 3.33 K/uL (1.2-3.4) 02/26/19 04:13 [place] # (Auto) 0.33 K/uL (0.11-0.59) 02/26/19 04:13 Eos # (Auto) 0.10 K/uL (0-0.5) 02/26/19 04:13 Baso # (Auto) 0.02 K/uL (0-0.2) 02/26/19 04:13 PT 11.4 Seconds (9.0-12.0) 02/26/19 04:13 INR 1.1 (0.9-1.1) 02/26/19 04:13 APTT 28.3 Seconds (21.0-31.0) 02/26/19 04:13 PTT Ratio 1.0 02/26/19 04:13 250 ug/L FEU (0-500) 02/26/19 00:08 Sodium 139 mmol/L (136-145) 02/26/19 04:13 Potassium 3.6 mmol/L (3.5-5.1) 02/26/19 04:13 Chloride 107 mmol/L (98-107) 02/26/19 04:13 Carbon Dioxide 26 mmol/L (21-32) 02/26/19 04:13 6.0 (3-11) 02/26/19 04:13 BUN 16 mg/dl (7-18) 02/26/19 04:13 1.49 mg/dl (0.6-1.4) H 02/26/19 04:13 Est Cr Clr Drug Dosing 88.5 ml/min 02/26/19 04:13 Est GFR ( Amer) 64.3 02/26/19 04:13 Est GFR (Non-Af Amer) 55.5 02/26/19 04:13 10.9 (10-20) 02/26/19 04:13 Glucose 158 mg/dl (70-99) H 02/26/19 04:13 POC Glucose 165 (70-99) H 02/26/19 04:22 Calcium 8.0 mg/dl (8.5-10.1) L 02/26/19 04:13 0.3 mg/dl (0.2-1) 02/26/19 04:13 AST 76 U/L (15-37) H 02/26/19 04:13 ALT 58 U/L (12-78) 02/26/19 04:13 111 U/L (45-117) 02/26/19 04:13 < 0.015 ng/ml (0-0.045) 02/26/19 04:13 7.3 gm/dl (6.4-8.2) 02/26/19 04:13 3.3 gm/dl (3.4-5.0) L 02/26/19 04:13 4.0 gm/dl (2.5-4.0) 02/26/19 04:13 0.8 (0.9-2) L 02/26/19 04:13 Code Status & VTE Plan Code Status Full code VTE Prophylaxis Plan VTE Prophylaxis will be ordered: Yes
[2019-02-26] MEDS ORDERED: GLUCAGON FOR INJ 1 MG VIAL SQ PRN (04:15)
[2019-02-26] MEDS ORDERED: GLUCOSE 10 TABS/TUBE PO PRN (04:15)
[2019-02-26] MEDS ORDERED: GLUCOSE 40% GEL 15 GM TUBE PO PRN (04:15)
[2019-02-26] MEDS ORDERED: DEXTROSE 50% 50 ML SYRINGE IV PRN (04:15)
[2019-02-26] MEDS ORDERED: CARBOHYDRATES FOR HYPOGLYCEMIA PO PRN (04:15)
--- NOTE | 2019-02-26 04:30 | Emergency Department Note ---
Entered by Colette Keith acting as a scribe for Sharee Lebron DO History of Present Illness General Chief complaint: Chest Pain Stated complaint: CHEST,SHOULDER PAIN Time Seen by Provider: 02/26/19 00:01 Source: patient Limitations: no limitations History of Present Illness Onset (ago): month(s) 6 Location: chest and upper extremity (left shoulder) Pain Consistency: + constant Maximum Pain Intensity: 8 Quality: + other (worsening pain) Relieved By: + movement Associated symptoms: + denies other symptoms (abdominal pain) and + other (diarrhea, weakness in the left upper extremity) The patient is a 48 year old male who presents to the ED complaining of constant left shoulder and chest pain that began 6 months ago. He states that the pain worsened over the past month, noting that he began to have difficulty breathing yesterday. The patient states that the chest pain occurs when he breaths deeply, and he notes that the shoulder pain worsens with movement. He complains that he had a fever and a cough, but he denies any current fever or cough. The patient complains of weakness in the left arm and diarrhea a few days ago. The patient denies any abdominal pain. He notes that he has been getting SOB quicker when biking and doing the elliptical. He notes a history of blood clots and bronchitis. The patient states that he takes Xarelto daily, and he has not missed any doses recently. Home Medications Home Medications Medication Instructions Recorded Confirmed Type Xarelto 20 mg PO PM 10/22/18 02/26/19 History alprazolam [Xanax] 1 mg PO TID 10/22/18 02/26/19 History duloxetine [Cymbalta] 20 mg PO QAM 10/22/18 02/26/19 History methylphenidate HCl [Ritalin] 20 mg PO BID 10/22/18 02/26/19 History oxycodone 5 - 10 mg PO Q4H PRN 10/22/18 02/26/19 History pantoprazole 40 mg PO QAM 10/22/18 02/26/19 History zolpidem [Ambien] 10 mg PO HS 10/22/18 02/26/19 History methocarbamol 500 mg PO TID PRN 11/23/18 02/26/19 History metoprolol succinate 150 mg PO QAM 11/23/18 02/26/19 History diclofenac sodium [Voltaren] 1 % EXT QID PRN #100 gm 11/25/18 02/26/19 Rx metformin 500 mg PO BID #60 tab 11/25/18 02/26/19 Rx albuterol sulfate 2 inha INH Q4H PRN #18 gm 11/26/18 02/26/19 Rx insulin lispro [Admelog SoloStar 12 units SQ AC #15 ml 11/26/18 02/26/19 Rx U-] insulin glargine [Basaglar KwikPen 50 unit SUBCUT BID 02/26/19 02/26/19 History U-100 Insulin] Allergies Allergy/AdvReac Type Severity Reaction Status Date / Time iodine Allergy Severe THROAT Verified 02/26/19 00:55 SWELLING shellfish derived Allergy Severe THROAT Verified 02/26/19 00:55 SWELLING Iodinated Contrast- Oral and Allergy Intermediate swelling Verified 02/26/19 00:55 IV Dye acetaminophen AdvReac Intermediate GI ISSUES Verified 02/26/19 00:55 hydrocodone AdvReac Intermediate GI ISSUES Verified 02/26/19 00:55 Plasma, Human Allergy Severe ANAPHYLAXIS Uncoded 01/28/19 19:06 Past Med/Surg History Medical History Vitamin D deficiency (Acute) Uncontrolled type 2 diabetes mellitus with insulin therapy (Acute) Seafood allergy (Acute) Pulmonary embolism (Acute) Precordial chest pain (Acute) Obesity (Acute) Myalgia and myositis (Acute) Lesion of liver (Acute) Insomnia (Acute) Hypertriglyceridemia (Acute) Gastrointestinal hemorrhage (Acute) Esophagitis (Acute) Chronic use of opiate for therapeutic purpose (Acute) Chronic pain (Acute) Chest pain (Acute) CKD (chronic kidney disease), stage III (Acute) History of pleural effusion (Resolved) Abnormal EKG Hypertension (Acute) Alcohol intoxication Blood clot in vein Chest pain Fall GI bleed Hemoptysis Left ankle sprain Pulmonary emboli Right knee pain Transaminitis Family History Mother , s/p brain aneurysm Aneurysm Other Hypertension Social History Preferred Language: American Communication Ability: Effective Beliefs That Will Affect Care: Congregation Congregation Beliefs: Denominational marital status: Single Current Living Situation: Alone current occupational status: disabled Feels Safe at Home: Yes Safety Concerns: Feels Safe At This Time Smoking Status: Never smoker Hx Alcohol Use: No Hx Substance Use: No Review of Systems See HPI for pertinent positives & negatives. and A total of 10 systems reviewed and were otherwise negative Physical Exam Vital Signs Vital Signs - 24 hr 02/25/19 23:56 02/26/19 00:06 02/26/19 00:31 Temperature 36.8 C Temperature Source Oral Sepsis Recent Fever Within 48 Hours No Sepsis New/Unexplained Change in Mental Status No Sepsis Action Taken by Nursing No Action Required Pulse Rate 74 Pulse Rate [Apical] Pulse Rhythm [Apical] Pulse Strength [Apical] Respiratory Rate 16 Respiratory Effort / Characteristics Non-Labored Spontaneous Respiratory Depth Normal Blood Pressure 138/79 Blood Pressure [Left Arm] Blood Pressure Mean 98 Blood Pressure Mean [Left Arm] Blood Pressure Position [Left Arm] Pulse Oximetry 96 95 95 Oxygen Delivery Method Room Air Room Air Room Air 02/26/19 00:36 02/26/19 01:39 Temperature Temperature Source Sepsis Recent Fever Within 48 Hours Sepsis New/Unexplained Change in Mental Status Sepsis Action Taken by Nursing Pulse Rate Pulse Rate [Apical] 72 76 Pulse Rhythm [Apical] Regular Regular Pulse Strength [Apical] Normal Normal Respiratory Rate 16 16 Respiratory Effort / Characteristics Non-Labored Spontaneous Non-Labored Respiratory Depth Normal Normal Blood Pressure Blood Pressure [Left Arm] 138/81 148/75 H Blood Pressure Mean Blood Pressure Mean [Left Arm] 100 99 Blood Pressure Position [Left Arm] Sitting Pulse Oximetry 94 96 Oxygen Delivery Method Room Air Room Air HEENT: Head - normocephalic and atraumatic Pupils are equal, round, and reactive to light. Extraocular eye muscles are intact, and sclera are anicteric. Nose - moist nasal mucosa without discharge. Mouth - moist buccal mucosa. Oropharynx is nonerythematous and there is no tonsillar exudate or edema noted. Neck: Supple; no JVD, nuchal rigidity, cervical lymphadenopathy. Heart: Regular rate and rhythm. There is a normal S1 and S2 with no murmurs, clicks, or gallops appreciated. Lungs: Clear to auscultation bilaterally with no wheezes, rales, or rhonchi. Abdomen: Soft, completely nontender, nondistended, with good bowel sounds. There are no palpable pulsatile masses or hepatosplenomegaly. There is no guarding, rigidity, or rebound noted. Extremities: No evidence of cyanosis, clubbing, or edema. There are easily palpable peripheral pulses. He has pain to palpation over the left trapezius and supraspinatus muscle. Skin: warm and dry with good turgor and no rashes. Neuro: The patient is moving all 4 extremities without difficulty. Course 0018: The patient was evaluated in room A12B. A complete history and physical exam was performed. A saline lock was initiated, and labs were drawn as above. A twelve-lead EKG was obtained. The patient was observed on the assistant professor surgical technology and pulse oximeter. Previous electronic medical records were reviewed. 0031: Toradol 30 mg IV. The patient had a chest x-ray as described above. 0141: I spoke with Dr. Jon, [facility] hospitalist, about the patients case. He will further evaluate the patient. Consultations Consultation #1: I spoke with Dr. Jon, [facility] hospitalist, about the patients case. He will further evaluate the patient. Time: 01:41 Administered Medications Potassium Chloride/Sodium Chloride (Normal Saline W/20 Meq Kcl) 20 meq in 1,000 mls @ 100 mls/hr IV .Q10H DIAMOND Stop: 03/28/19 03:52 Last Admin: 02/26/19 04:20 Dose: 100 mls/hr Documented by: [id number] Discontinued Medications Ketorolac Tromethamine (Toradol) 30 mg IV NOW STA Stop: 02/26/19 00:32 Last Admin: 02/26/19 00:35 Dose: 30 mg Documented by: [id number] Medical Decision Making Differential Diagnosis The differential diagnosis includes: musculoskeletal pain, PE, cardiac ischemia, pleurisy, and costochondritis. Medical Records Attestation: I reviewed the patient's medical records. Home Medications Current Medication List: was personally reviewed by me Laboratory Data Attestation: I reviewed the patient's lab results. Result diagrams: 02/26/19 00:08 02/26/19 00:08 Lab Results 02/26/19 02/26/19 02/26/19 Range/Units 00:08 00:08 00:08 WBC 7.42 (4.8-10.8) K/uL RBC 4.78 (4.7-6.1) M/uL Hgb 14.7 (14.0-18.0) g/dL Hct 40.6 L (42-52) % MCV 84.9 (80-100) fL MCH 30.8 (25-34) pg MCHC 36.2 H (32-36) g/dL RDW Std Deviation 41.9 (36.4-46.3) fL RDW Coeff of Lillie 13.7 (11.5-14.5) % Plt Count 272 (130-400) K/uL MPV 11.8 H (7.4-10.4) fL Immature Gran % (Auto) 0.1 % Neut % (Auto) 48.6 % Lymph % (Auto) 43.0 % [place] % (Auto) 5.3 % Eos % (Auto) 2.6 % Baso % (Auto) 0.4 % Immature Gran # (Auto) 0.01 (0.00-0.02) K/uL Neut # (Auto) 3.61 (1.4-6.5) K/uL Lymph # (Auto) 3.19 (1.2-3.4) K/uL [place] # (Auto) 0.39 (0.11-0.59) K/uL Eos # (Auto) 0.19 (0-0.5) K/uL Baso # (Auto) 0.03 (0-0.2) K/uL D-Dimer 250 (0-500) ug/L FEU Sodium 141 (136-145) mmol/L Potassium 3.7 (3.5-5.1) mmol/L Chloride 109 H (98-107) mmol/L Carbon Dioxide 25 (21-32) mmol/L Anion Gap 8.0 (3-11) BUN 14 (7-18) mg/dl Creatinine 1.45 H (0.6-1.4) mg/dl Est Cr Clr Drug Dosing 91.2 ml/min Est GFR ( Amer) 66.5 Est GFR (Non-Af Amer) 57.3 BUN/Creatinine Ratio 9.4 L (10-20) Glucose 127 H (70-99) mg/dl Calcium 8.6 (8.5-10.1) mg/dl Total Bilirubin 0.3 (0.2-1) mg/dl AST 92 H (15-37) U/L ALT 69 (12-78) U/L Alkaline Phosphatase 114 (45-117) U/L Troponin I < 0.015 (0-0.045) ng/ml Total Protein 8.0 (6.4-8.2) gm/dl Albumin 3.6 (3.4-5.0) gm/dl Globulin 4.4 H (2.5-4.0) gm/dl Albumin/Globulin Ratio 0.8 L (0.9-2) Imaging Data Attestation: I personally reviewed and interpreted this imaging study as follows: My Impression: XR CHEST 1V: Borderline cardiomegaly. No obvious pulmonary infiltrates or pneumothorax. Unchanged compared to previous. ECG Data Attestation: I personally reviewed and interpreted this ECG as follows: Indication: chest pain Rate (beats per minute): 71 Rhythm: normal sinus Findings: + T-wave inversion (Anterior) Comparison ECG Date: from (previous EKGs) Change: the following changes noted (T-wave inversion is new) Blood Pressure Blood Pressure Findings: Elevated blood pressure Blood Pressure Disposition: further management by hospitalist JEFF Carrasquillo The patient is a 48 year old male who presents to the ED complaining of constant left shoulder and chest pain that began 6 months ago. The pain in the patient's left shoulder is easily reproducible with palpation to the left trapezius muscle as well as the supraspinatus muscle. Range of motion seems to exacerbate the pain as well. I spent a great deal time talking to the patient about his histor y and remember seeing him in the past where he was diagnosed with pulmonary emboli despite having a negative d-dimer. The patient is currently taking Xarelto. He does describe previous history of PEs while on anticoagulation. However, the patient's oxygen saturation is 96 or higher and pulse is in the 70s. He is not currently short of breath. The patient got minimal relief of the left shoulder pain after receiving IV Toradol. The patient had new T wave inversions in the lateral leads of his EKG. This was concerning for ischemia. I discussed the case with Dr. Bearden and he will evaluate for further management. Impression & Plan Left-sided chest pain Discharge Plan Visit Data *Final* Discharge Date/Time: 02/26/19 02:49 Chief Complaint: Chest Pain Stated Complaint: CHEST,SHOULDER PAIN ED Provider: Sharee Lebron Discharge Problem: Left-sided chest pain Patient Disposition: Admitted As Inpatient Discharge Instructions Interventions: ED Discharge Assessment Last Done: 02/26/19 02:49 The scribe's documentation has been prepared under my direction and personally reviewed by me in its entirety. I confirm that the note above accurately reflects all work, treatment, procedures, and medical decision making performed by me.
[2019-02-26 04:35] LABS: Basophils # (auto) 0.02 K/uL (0-0.2); Basophils % (auto) 0.3 %; Eosinophils % (auto) 1.5 %; Hematocrit (blood only) 37.4 % (42-52); Hemoglobin 13.3 g/dL (14.0-18.0); Immature Granulocytes # (auto) 0.01 K/uL (0.00-0.02); Immature Granulocytes % (auto) 0.1 %; Lymphocytes # (auto) 3.33 K/uL (1.2-3.4); Lymphocytes % (auto) 49.3 %; Mean Corpuscular Hgb Conc 35.6 g/dL (32-36); Mean Corpuscular Volume 85.6 fL (80-100); Mean Platelet Volume 11.4 fL (7.4-10.4); Monocytes # (auto) 0.33 K/uL (0.11-0.59); Monocytes % (auto) 4.9 %; Neutrophils # (auto) 2.97 K/uL (1.4-6.5); Neutrophils % (auto) 43.9 %; Platelet Count 229 K/uL (130-400); RDW Coefficient of Variation 13.8 % (11.5-14.5); RDW Standard Deviation 42.8 fL (36.4-46.3); Red Blood Count 4.37 M/uL (4.7-6.1); White Blood Count 6.76 K/uL (4.8-10.8)
[2019-02-26 04:46] LABS: INR 1.1 (0.9-1.1); Partial Thromboplastin Time 28.3 Seconds (21.0-31.0); Prothrombin Time 11.4 Seconds (9.0-12.0)
[2019-02-26 04:53] LABS: Alanine Aminotransferase 58 U/L (12-78); Albumin Level 3.3 gm/dl (3.4-5.0); Aspartate Aminotransferase 76 U/L (15-37); BUN Creatinine Ratio 10.9 (10-20); Blood Urea Nitrogen 16 mg/dl (7-18); Carbon Dioxide 26 mmol/L (21-32); Chloride 107 mmol/L (98-107); Creatinine Clr Calc Pharmacy 88.5 ml/min; Est GFR (African American) 64.3; Est GFR (Non-African American) 55.5; Glucose 158 mg/dl (70-99); Potassium 3.6 mmol/L (3.5-5.1); Sodium 139 mmol/L (136-145)
[2019-02-26 04:58] LABS: Albumin Globulin Ratio 0.8 (0.9-2); Alkaline Phosphatase 111 U/L (45-117); Bilirubin,Total 0.3 mg/dl (0.2-1); Total Protein 7.3 gm/dl (6.4-8.2); Troponin I < 0.015 ng/ml (0-0.045)
[2019-02-26] MEDS ORDERED: NITROGLYCERIN 2% OINTMENT 30GM TUBE EXT SCH (06:00)
[2019-02-26] MEDS: OXYCODONE HCL IR 5 MG TAB (IMMEDIATE RELEASE) PO PRN ×2 (06:05→10:48)
[2019-02-26 06:24] VITALS: BP 149/81; PULSE 76
--- NOTE | 2019-02-26 06:25 | Magnetic Resonance Report ---
MR brain wo con HISTORY: Pain. Neuropathy. left arm and leg weakness TECHNIQUE: Multiplanar multisequence MRI of the brain was performed without the use of contrast. COMPARISON STUDY: 05/10/2015 FINDINGS: There are no areas of restricted diffusion to suggest acute infarction. The midline structu res are intact. The paranasal sinuses are clear. The mastoid air cells are clear. The ventricles and sulci are within normal limits for age. There is no mass, hematoma, midline shift. The major vascular flow-voids at the skull base are well maintained. Minimal development of 2 small foci of increased s ignal posterior left frontal lobe. These are nonspecific for age and can be seen with a history of ch ronic headache. IMPRESSION: No acute intracranial abnormality. No significant change from the prior study. The above report was generated using voice recognition software. It may contain grammatical, syntax or spelling errors. Electronically signed by: Michael Cabrera M.D. 02/26/2019 6:24 AM
--- NOTE | 2019-02-26 06:59 | XRay Report ---
XR chest 1V portable CLINICAL HISTORY: 48 years-old Male presenting with left-sided Chest Pain. TECHNIQUE: Portable upright AP view of the chest was obtained. COMPARISON: . FINDINGS: The heart is borderline enlarged. No focal opacity. No large effusion or pneumothorax. Osseous struct ures normal. Upper abdomen normal. IMPRESSION: 1. Borderline cardiomegaly. Otherwise no acute cardiopulmonary disease. Electronically signed by: Ras Day M.D. 02/26/2019 6:57 AM
[2019-02-26] MEDS ORDERED: DULOXETINE HCL 20 MG CAP PO SCH (09:00)
[2019-02-26] MEDS ORDERED: INSULIN GLARGINE SOLOSTAR 100 UNITS/ML 3 ML PEN SQ SCH (09:00)
[2019-02-26] MEDS ORDERED: ALPRAZolam 0.5 MG TABLET PO SCH (09:00)
[2019-02-26] MEDS ORDERED: METOPROLOL SUCC 50MG EXT REL TAB PO SCH (09:00)
[2019-02-26] MEDS ORDERED: PANTOprazole 40 MG TAB PO SCH (09:00)
[2019-02-26] MEDS ORDERED: ASPIRIN 81 MG ECTAB PO SCH (09:00)
--- NOTE | 2019-02-26 12:51 | Cardiology Consultation ---
Date of Consultation February 26, 2019 Assessment & Plan (1) Left-sided chest pain: The patient's description of a left-sided sharp stabbing chest pain occurring at rest, not with exercise is atypical for angina pectoris. The patient is summer presentation back in November and had a normal stress echocardiogram. No need for further evaluation at this time. (2) Abnormal EKG: His EKG notes left ventricle hypertrophy with repolarization changes. This is unchanged when compared to prior tracings done both in January in November. (3) LVH (left ventricular hypertrophy): Mild left ventricular hypertrophy was noted on his echocardiogram performed in November 2018. (4) Hypertension: Adequate control on current medical regimen. History of Present Illness Attending Physician: Omid Azevedo MD History of Present Illness Mr. Delaney is a 48-year-old male admitted yesterday with a chest pain syndrome. This consultation was ordered cysts management. The patient explains his usual state of health until approximately 2-3 weeks prior to presentation. He would notice the abrupt onset of a sharp stabbing sensation in the left chest which typically occurred while driving or when at rest. His discomfort would last for several seconds up to 1 minute and resolved spontaneously. There are no other associated symptoms such as shortness of breath, nausea, vomiting, diaphoresis, or radiation of the discomfort. The patient does exercise routinely. He often plays basketball, or exercises using elliptical security trainer. He has never experienced chest discomfort during physical activity. He further denies syncope, presyncope, PND, orthopnea, palpitations, lower extremity edema, and claudication. The patient has also complained of a persistent discomfort in the left shoulder for several years. He attributes this to his left rotator cuff injury. He is contemplating an appointment with an orthopedic surgeon. The patient was hospitalized back in November 26 with similar complaints of chest discomfort. He had a stress echocardiogram performed at that time which showed no evidence of myocardial ischemia at a high exercise level. Currently, patient is resting comfortably in bed without complaints. Past medical and surgical history 1. Hypertension 2. Mild LVH 3. Hypercholesterolemia 4. Diabetes mellitus 5. Chronic renal failure 6. History of recurrent pulmonary emboli 7. Blood clotting disorder-[facility]-2015-chronic anticoagulation 8. GERD 9. Obesity 10. Left rotator cuff syndrome 11. Anxiety/depression Social history Single, currently on disability Travels to [place] frequently to visit children No tobacco Stopped alcohol use 8 months ago Family history Mother at 35 from a brain aneurysm Father at 49 in a traumatic accident No early coronary artery disease Review of systems A 10 point review of systems was undertaken and negative except for that described above. Allergies Allergy/AdvReac Type Severity Reaction Status Date / Time iodine Allergy Severe THROAT Verified 02/26/19 00:55 SWELLING shellfish derived Allergy Severe THROAT Verified 02/26/19 00:55 SWELLING Iodinated Contrast- Oral and Allergy Intermediate swelling Verified 02/26/19 00:55 IV Dye acetaminophen AdvReac Intermediate GI ISSUES Verified 02/26/19 00:55 hydrocodone AdvReac Intermediate GI ISSUES Verified 02/26/19 00:55 Plasma, Human Allergy Severe ANAPHYLAXIS Uncoded 01/28/19 19:06 Home Medications Home Medications Medication Instructions Recorded Confirmed Type alprazolam [Xanax] 1 mg PO TID 10/22/18 02/26/19 History duloxetine [Cymbalta] 20 mg PO QAM 10/22/18 02/26/19 History methylphenidate HCl [Ritalin] 20 mg PO BID 10/22/18 02/26/19 History oxycodone 5 - 10 mg PO Q4H PRN 10/22/18 02/26/19 History zolpidem [Ambien] 10 mg PO HS 10/22/18 02/26/19 History methocarbamol 500 mg PO TID PRN 11/23/18 02/26/19 History metoprolol succinate 150 mg PO QAM 11/23/18 02/26/19 History diclofenac sodium [Voltaren] 1 % EXT QID PRN #100 gm 11/25/18 02/26/19 Rx metformin 500 mg PO BID #60 tab 11/25/18 02/26/19 Rx albuterol sulfate 2 inha INH Q4H PRN #18 gm 11/26/18 02/26/19 Rx insulin lispro [Admelog SoloStar 12 units SQ AC #15 ml 11/26/18 02/26/19 Rx U-100 Insulin] Basaglar KwikPen U-100 Insulin 50 unit SUBCUT BID 02/26/19 02/26/19 History apixaban 5 mg PO BID #60 tab 02/26/19 Rx pantoprazole 40 mg PO BID #60 tab 02/26/19 Rx Patient History Medical History Vitamin D deficiency (Acute) Uncontrolled type 2 diabetes mellitus with insulin therapy (Resolved) Seafood allergy (Acute) Pulmonary embolism (Acute) Precordial chest pain (Acute) Obesity (Acute) Myalgia and myositis (Acute) Lesion of liver (Acute) Insomnia (Acute) Hypertriglyceridemia (Acute) Gastrointestinal hemorrhage (Acute) Esophagitis (Acute) Chronic use of opiate for therapeutic purpose (Acute) Chronic pain (Acute) Chest pain (Acute) CKD (chronic kidney disease), stage III (Acute) History of pleural effusion (Resolved) Abnormal EKG Hypertension (Acute) Alcohol intoxication Blood clot in vein Chest pain Fall GI bleed Hemoptysis Left ankle sprain Pulmonary emboli Right knee pain Transaminitis Family History Mother , s/p brain aneurysm Aneurysm Other Hypertension Social History Preferred Language: Surinamese Communication Ability: Effective Beliefs That Will Affect Care: Anabaptist Anabaptist Beliefs: Anabaptist marital status: Single Current Living Situation: Alone current occupational status: disabled Feels Safe at Home: Yes Safety Concerns: Feels Safe At This Time Smoking Status: Never smoker Hx Alcohol Use: No Hx Substance Use: No Physical Exam Physical Exam: In general this is a well-developed well-nourished black male in no acute distress. HEENT exam is negative. Neck is supple with full carotid upstrokes. There are no carotid bruits. Jugular venous pressure is flat at 90. There is no thyromegaly. Cardiovascular exam reveals a regular rhythm with a normal S1 and S2. No S3, S4, or murmurs are noted. Lungs are clear without rales, rhonchi, or wheezes. Abdomen is soft and nontender without bruits. Extremities reveal intact radial artery and posterior tibial pulses bilaterally. There is no peripheral edema. Results & Data Vital Signs (Past 12 Hours) Vital Signs Temp Pulse Pulse Resp BP BP Pulse Ox 02/26/19 11:49 37 C 76 18 149/81 H 93 02/26/19 06:00 76 149/81 H 02/26/19 04:40 72 02/26/19 03:45 37 C 78 18 159/79 H 93 02/26/19 02:49 76 16 152/88 H 95 02/26/19 01:39 76 16 148/75 H 96 Laboratory Results CBC notes hemoglobin 13.3, hematocrit 37.4, white count 6.76, and a platelet count of [id number]. Electrolytes noted a sodium of 139, potassium 3.6, chloride 107, bicarb 26, BUN 16, creatinine 1.49, and glucose of 158. Two troponin I levels are undetectable less than 0.015. EKG notes normal sinus rhythm and left ventricular hypertrophy with repolarization changes. This is unchanged when compared with a tracing done January 28, 2019. Diagnostic Findings EKG notes normal sinus rhythm and left ventricular hypertrophy with repolarization changes. This is unchanged when compared with a tracing done January 28, 2019.
--- NOTE | 2019-02-26 17:54 | Discharge Summary ---
Date of Service February 26, 2019 Admission HPI Per Admitting Provider The patient is a 48-year-old male with a past medical history including diabetes mellitus insulin-dependent, pulmonary embolism, hypertriglyceridemia, esophagitis, CKD stage III, history of alcohol abuse, hypertension and anxiety who presents to the emergency department with progressively worsening symptoms of left shoulder and chest discomfort, left arm and leg decreased strength, and EKG changes suggestive of lateral ischemia with T wave inversions in leads V4, V5 and V6. Principal Diagnosis GERD and possible rotator cuff pain Discharge Exam Constitutional WD/WN, vitals as above Eyes EOM intact bilaterally; no conjunctival abnormality ENMT external ear and nose normal, oropharynx normal Neck trachea midline, no thyromegaly normal visual inspection Respiratory normal respiratory effort, lungs clear to auscultation no respiratory distress Cardiovascular RRR, no murmur, no edema Gastrointestinal (Abdomen) Inspection/Auscultation: abdomen normal to inspection; abdomen not distended Musculoskeletal no cyanosis or clubbing, extremities motor strength 5/5 Skin no rashes, warm and dry Neurologic moves all extremities and awake Psychiatric Orientation: alert, oriented to person and cooperative Discharge Data Allergies Allergy/AdvReac Type Severity Reaction Status Date / Time iodine Allergy Severe THROAT Verified 02/26/19 00:55 SWELLING shellfish derived Allergy Severe THROAT Verified 02/26/19 00:55 SWELLING Iodinated Contrast- Oral and Allergy Intermediate swelling Verified 02/26/19 00:55 IV Dye acetaminophen AdvReac Intermediate GI ISSUES Verified 02/26/19 00:55 hydrocodone AdvReac Intermediate GI ISSUES Verified 02/26/19 00:55 Plasma, Human Allergy Severe ANAPHYLAXIS Uncoded 01/28/19 19:06 Consultations 02/26/19 01:42 ED Decision to Admit Stat 02/26/19 03:53 Consult Cardiology Routine Consult Case Management - Discharge Planning Routine Ordered Studies 02/26/19 02:44 MR brain wo con Urgent Hospital Course (1) Left-sided chest pain: Possibly GERD vs. sternal pain. Shoulder pain likely from rotator cuff. - Seen by cardiology with no concern for cardiac disease. Had negative stress in November and all EKGs/troponins negative. - Dishcarged on protonix BID and GI follow up. Recommended ortho follow up for rotator cuff. (2) Left-sided weakness: Patient as above presented with left shoulder discomfort and left arm weakness, and also reports he noticed his left leg weakness when he has been working out recently. - MRI brain was normal. Denied any further weakness that was not related to rotator cuff pain. (3) Hypertriglyceridemia: Not presently listed as being on any medication. We will check a fasting lipid panel. (4) Chronic pain: Continue duloxetine. Continue PRN methocarbamol. Continue oxycodone 5 mg p.o. every 4 hours as needed for moderate pain. Add morphine sulfate 4 mg IV every 3 hours as needed severe pain. (5) CKD (chronic kidney disease), stage III: See above (6) Hypertension: See above (7) Esophagitis: Continue pantoprazole 40 mg every morning (8) History of pulmonary embolus (PE): History of pulmonary embolism/chronic anticoagulation- Has been on Xarelto 20 mg daily, usually taking it around 8:30 AM. - Requested switch to Eliquis. Script and coupon card provided. (9) Chronic anticoagulation: As above. (10) Anxiety: Anxiety/depression- Continue duloxetine, methylphenidate, and alprazolam. (11) History of alcohol abuse: Total Time Total Time Spent Total Time Spent (In Minutes): 30 Discharge Plan Discharge Items Patient Disposition: Home - Self-Care Reason For Visit: LEFT SIDE WEAKNESS, CHEST DISCOMFORT Discharge Diagnosis: Chest and shoulder pain - Possibly GI-related vs. rotator cuff Discharge Goals: Decrease discomfort and Diagnostic testing Activity: Resume your previous activity Non-emergency contact: Primary Care Provider Call non-emergency contact if: you have any medication questions, your symptoms worsen and your pain is not controlled Follow-up/Referrals: Edgardo Azevedo, [Primary Care Provider] - Diet: Regular Addtl Provider Instructions: You were admitte for chest and left shoulder pain. We do not think this pain is heart-related. It may be due to stomach irritation, as you have had stomach ulcers in the past. You also have had some pain in the left shoulder that appears to be rotator cuff related. Please follow up with your GI doctor (Dr. Callejas) for the stomach issues. We will send you out on twice a day Protonix in case there is some stomach irritation. Please follow up with the orthopedic doctors for your rotator cuff. We also switched you from Xarelto to Eliquis for your history of pulmonary embolism per your request. Prescriptions: New apixaban 5 mg tablet 5 mg PO BID Qty: 60 RF: 0 Continued alprazolam [Xanax] 1 mg Tablet 1 mg PO TID RF: 0 methylphenidate HCl [Ritalin] 20 mg Tablet 20 mg PO BID RF: 0 oxycodone 10 mg Tablet 5 - 10 mg PO Q4H PRN (Reason: Pain) RF: 0 zolpidem [Ambien] 10 mg Tablet 10 mg PO HS RF: 0 duloxetine [Cymbalta] 20 mg Capsule,Delayed Release(Dr/Ec) 20 mg PO QAM RF: 0 methocarbamol 500 mg tablet 500 mg PO TID PRN (Reason: Muscle Spasm) RF: 0 metoprolol succinate 100 mg tablet extended release 24 hr 150 mg PO QAM RF: 0 diclofenac sodium [Voltaren] 1 % Gel 1 % EXT QID PRN (Reason: shoulder pain) Qty: 100 RF: 0 metformin 500 mg tablet 500 mg PO BID Qty: 60 RF: 0 albuterol sulfate 90 mcg/actuation HFA aerosol inhaler 2 inha INH Q4H PRN (Reason: cough) Qty: 18 RF: 0 insulin lispro [Admelog SoloStar U-100 Insulin] 100 unit/mL insulin pen 12 units SQ AC Qty: 15 RF: 0 Basaglar KwikPen U-100 Insulin 100 unit/mL (3 mL) insulin pen 50 unit SUBCUT BID RF: 0 Changed pantoprazole 40 mg Tablet,Delayed Release (Dr/Ec) 40 mg PO BID Qty: 60 RF: 0 Discontinued Xarelto 20 mg Tablet 20 mg PO PM RF: 0 Stand-Alone Forms: Call Back Authorization, [facility] Discharge Orders: Discharge Order (Routine); Ordered 02/26/19 Ordered By: Omid Azevedo Admission Data Admit Date/Time: 02/26/19 02:14 Attending Provider: Omid Azevedo Admit Provider: Azael Jon Primary Care Provider: Edgardo Azevedo Other Providers: Srikanth Gonzales ; Omid Azevedo Service: Telemetry Other Interventions: Discharge Summary Assessment (RN) Last Done: 02/26/19 11:49 DC Date/Time DO NOT enter until pt leaves facility: 02/26/19 12:40
[2019-02-26] MEDS ORDERED: ZOLPIDEM TARTRATE 10 MG TAB PO SCH (21:00)
== END 2019-02-26 12:40 | disposition home or self-care (01) | DRG 392 ==
LOC: ED 23:51 → SUATTDRO 02-26 02:14 → 2S 02-26 02:14
DX: I12.9 Hypertensive chronic kidney disease with stage 1 through stage 4 chronic kidney disease, or unspecified chronic kidney disease; E78.1 Pure hyperglyceridemia; Z79.4 Long term (current) use of insulin; N18.3 Chronic kidney disease, stage 3 (moderate); E11.9 Type 2 diabetes mellitus without complications; Z79.01 Long term (current) use of anticoagulants; E55.9 Vitamin D deficiency, unspecified; R07.9 Chest pain, unspecified; Z79.84 Long term (current) use of oral hypoglycemic drugs; Z86.718 Personal history of other venous thrombosis and embolism; G89.29 Other chronic pain; Z79.891 Long term (current) use of opiate analgesic; Z68.36 Body mass index [BMI] 36.0-36.9, adult; K21.0 Gastro-esophageal reflux disease with esophagitis; Z86.711 Personal history of pulmonary embolism; E66.9 Obesity, unspecified; Z82.49 Family history of ischemic heart disease and other diseases of the circulatory system; M75.81 Other shoulder lesions, right shoulder

== ENCOUNTER 2020-08-10 13:06 | Observation (INO) ==
[2020-08-10] MEDS ORDERED: diphenhydrAMINE 50 MG/ML VIAL IV STA (13:29)
[2020-08-10] MEDS ORDERED: KETOROLAC TROMETHAMINE 15 MG/ML VIAL IV STA (13:29)
[2020-08-10] MEDS ORDERED: methylPREDNISolone 125 MG/2 ML VIAL IV STA (13:29)
[2020-08-10 13:44] LABS: Basophils # (auto) 0.03 K/uL (0-0.2); Basophils % (auto) 0.5 %; Eosinophils # (auto) 0.15 K/uL (0-0.5); Eosinophils % (auto) 2.5 %; Hematocrit (blood only) 44.2 % (42-52); Hemoglobin 14.9 g/dL (14.0-18.0); Immature Granulocytes # (auto) 0.01 K/uL (0.00-0.02); Immature Granulocytes % (auto) 0.2 %; Lymphocytes # (auto) 2.69 K/uL (1.2-3.4); Mean Corpuscular Hemoglobin 29.8 pg (25-34); Mean Corpuscular Hgb Conc 33.7 g/dL (32-36); Mean Corpuscular Volume 88.4 fL (80-100); Mean Platelet Volume 12.2 fL (7.4-10.4); Monocytes # (auto) 0.34 K/uL (0.11-0.59); Monocytes % (auto) 5.6 %; Neutrophils # (auto) 2.89 K/uL (1.4-6.5); Neutrophils % (auto) 47.2 %; Platelet Count 224 K/uL (130-400); RDW Coefficient of Variation 13.4 % (11.5-14.5); RDW Standard Deviation 43.4 fL (36.4-46.3); White Blood Count 6.11 K/uL (4.8-10.8)
[2020-08-10 13:51] LABS: INR 1.1 (0.9-1.1); Partial Thromboplastin Ratio 1.1; Partial Thromboplastin Time 30.5 Seconds (21.0-31.0); Prothrombin Time 11.4 Seconds (9.0-12.0)
[2020-08-10 14:01] LABS: BUN Creatinine Ratio 7.6 (10-20); Blood Urea Nitrogen 11 mg/dl (7-18); Calcium 8.9 mg/dl (8.5-10.1); Carbon Dioxide 29 mmol/L (21-32); Chloride 110 mmol/L (98-107); Est GFR (African American) 66.1; Glucose 95 mg/dl (70-99); Potassium 3.8 mmol/L (3.5-5.1); Sodium 142 mmol/L (136-145)
[2020-08-10] MEDS ORDERED: MoRPHine SULFATE 2 MG/ML CARP IV STA (14:01)
[2020-08-10] MEDS ORDERED: NITROGLYCERIN SL 0.4 MG/TAB TAB SL STA (14:04)
[2020-08-10 14:06] LABS: Troponin I < 0.015 ng/ml (0-0.045)
--- NOTE | 2020-08-10 15:42 | Emergency Department Note ---
History of Present Illness General Chief Complaint: Chest Pain Stated Complaint: CHEST PAIN Time Seen by Provider: 08/10/20 13:15 History of Present Illness Provider Complaint: chest pain Onset (ago): week(s) Onset (Weeks): 1 Duration: intermittent Onset: during rest Pain Location: substernal, left chest and right chest Pain Radiation: none Severity: moderate Maximum Pain Intensity: 8 Current Pain Intensity: 8 Quality: + aching, + sharp and + dull Relieved By: + nothing Exacerbated By: + nothing Context: + history of DVT/PE (History of PE, feels similar to his previous PEs.) Associated symptoms: + dyspnea; no syncope, no palpitations, no fever, no cough and no leg swelling Patient states he was recently admitted and [facility]. He states there they did a CT scan but were not able to evaluate if he had small PEs. Patient is on Eliquis. He states he has not missed any doses of Eliquis. Patient states he saw his PCP, Dr. Azevedo today who did a blood test, a D-dimer test which was elevated and told him to come to the emergency department to get a CTA of the chest to rule out PE. Home Medications Home Medications Medication Instructions Recorded Confirmed Type albuterol sulfate 90 mcg/actuation 2 inha INH Q4H PRN gm 03/16/19 08/10/20 History aerosol inhaler thiamine HCl (vitamin B1) 100 mg 100 mg PO BID tab 06/10/19 08/10/20 History tablet naloxone 4 mg/actuation nasal spray 1 sprays INTRANASAL Q2M PRN ea 07/27/19 08/10/20 History enoxaparin [Lovenox] 120 mg SUBCUT UD PRN 11/25/19 08/10/20 History baclofen 10 mg tablet 10 mg PO TID #270 tab 01/10/20 08/10/20 Rx insulin glargine 100 unit/mL 50 units SQ BID #30 ml 04/10/20 08/10/20 Rx subcutaneous solution pantoprazole 40 mg tablet,delayed 40 mg PO QAM #90 tab 04/20/20 08/10/20 Rx release blood-glucose meter #1 ea 04/27/20 08/10/20 Rx metformin 500 mg tablet 500 mg PO BID #180 tab 05/11/20 08/10/20 Rx blood sugar diagnostic #400 ea 07/14/20 08/10/20 Rx lancets 33 gauge #400 ea 07/14/20 08/10/20 Rx epinephrine 0.3 mg/0.3 mL 0.3 mg IM UD #1 ea 07/26/20 08/10/20 Rx injection, auto-injector diclofenac sodium 1 % topical gel 2 g TOP QID PRN #100 g 07/31/20 08/10/20 Rx lisinopril 20 mg tablet 20 mg PO QAM #90 tab 07/31/20 08/10/20 Rx metoprolol succinate 100 mg 150 mg PO DAILY #135 tab 07/31/20 08/10/20 Rx tablet,extended release 24 hr clonazepam 1 mg tablet 1 mg PO TID #90 tab 08/01/20 08/10/20 Rx oxycodone 10 mg tablet 10 mg PO Q8H PRN 30 Days #90 tab 08/01/20 08/10/20 Rx insulin aspart U-100 100 unit/mL 12 unit SQ AC #15 ml 08/02/20 08/10/20 Rx (3 mL) subcutaneous pen dextroamphetamine-amphetamine ER 25 mg PO DAILY #7 cap 08/04/20 08/10/20 Rx 25 mg 24hr capsule,extend release amlodipine 5 mg tablet 5 mg PO DAILY #30 tab 08/10/20 08/10/20 Rx apixaban 5 mg tablet 5 mg PO BID #180 tab 08/10/20 08/10/20 Rx duloxetine 60 mg PO DAILY 08/10/20 08/10/20 History methylphenidate HCl 20 mg tablet 20 mg PO BIDM #14 tab 08/10/20 08/10/20 Rx trazodone 50 mg PO HS 08/10/20 08/10/20 History Allergies Allergy/AdvReac Type Severity Reaction Status Date / Time iodine Allergy Severe THROAT Verified 08/10/20 10:48 SWELLING shellfish derived Allergy Severe THROAT Verified 08/10/20 10:48 SWELLING Iodinated Contrast Media Allergy Intermediate swelling Verified 08/10/20 10:48 hydrocodone AdvReac Intermediate GI ISSUES Verified 08/10/20 10:48 Plasma, Human Allergy Severe ANAPHYLAXIS Uncoded 08/10/20 10:48 Past Med/Surg History Medical History Abnormal EKG 2017 > no further follow up needed per patient Alcohol intoxication hx Anxiety Blood clotting disorder unsure of specific details > Dr. Azevedo PCP Chest pain Chronic pain Chronic use of opiate for therapeutic purpose CKD (chronic kidney disease), stage III pt denies > says kidneys are normal Depression DM w/o complication type II, uncontrolled Esophagitis Gastrointestinal hemorrhage 2016 > resolved Hemoptysis resolved History of pleural effusion 2014> [facility] Hypertension Hypertriglyceridemia Insomnia Left ankle sprain Lesion of liver just watching > Dr. Azevedo Myalgia and myositis Obesity Precordial chest pain resolved Pulmonary embolism 4 total> last one 2016> Eliquis > came to [facility] Right knee pain Seafood allergy Transaminitis Uncontrolled type 2 diabetes mellitus with insulin therapy Vitamin D deficiency Surgical History History of cardiac cath 2016 due to chest pain> was clear per patient> no stents> [facility] History of colonoscopy History of esophagogastroduodenoscopy (EGD) Hx of surgical procedure colorectal for fissure S/P arthroscopy of shoulder 07/23/19 Dr. Cortes Carranza- Left shoulder arthroscopy with superior labrum anterior to posterior repair; Debridement of glenoid labrum; Synovectomy; Subacromial decompression with acromioplasty; Distal clavicle excision with excision of 10 mm of distal clavicle. Family History Mother , s/p brain aneurysm Aneurysm Other Hypertension Denies family history of Ovarian cancer Prostate cancer Myocardial infarction Breast cancer Colorectal cancer Social History Smoking Status: Never smoker Second Hand Exposure: No; Hx Alcohol Use: No Hx Substance Use: No Preferred Language: Telugu Communication Ability: Effective Visual Impairment: No Limitations Hearing Ability: Normal [employer] Helper Required: No Beliefs That Will Affect Care: [employer] Beliefs: Baptist marital status: Single Current Living Situation: Alone current occupational status: disabled Feels Safe at Home: Yes Dental Care, Regularly: Yes Physical Activity Frequency: Does not Exercise Seatbelt Use: always Sunscreen Use: No Assistive Devices: None Review of Systems A total of 10 systems reviewed and were otherwise negative Physical Exam Vital Signs Vital Signs - 24 hr 08/10/20 13:08 08/10/20 13:23 08/10/20 13:29 Temperature 36.8 C Temperature Source Oral Pulse Rate 82 80 80 Pulse Rate [Right Finger] Pulse Rate from SpO2 Sensor 79 Respiratory Rate 20 16 20 Respiratory Effort / Characteristics Non-Labored Respiratory Depth Normal Respiratory Pattern Regular Blood Pressure 182/113 H 192/148 H Blood Pressure [Right Radial Artery] Blood Pressure Mean 136 155 Blood Pressure Mean [Right Radial Artery] Blood Pressure Position [Right Radial Artery] Pulse Oximetry 97 97 Oxygen Delivery Method Room Air Sepsis Recent Fever Within 48 Hours No Sepsis New/Unexplained Change in Mental Status No Sepsis Action Taken by Nursing No Action Required 08/10/20 13:30 08/10/20 13:40 08/10/20 13:50 Temperature Temperature Source Pulse Rate 80 83 81 Pulse Rate [Right Finger] Pulse Rate from SpO2 Sensor 80 83 Respiratory Rate 19 19 20 Respiratory Effort / Characteristics Respiratory Depth Respiratory Pattern Blood Pressure 167/112 H Blood Pressure [Right Radial Artery] Blood Pressure Mean 139 Blood Pressure Mean [Right Radial Artery] Blood Pressure Position [Right Radial Artery] Pulse Oximetry 97 97 Oxygen Delivery Method Sepsis Recent Fever Within 48 Hours Sepsis New/Unexplained Change in Mental Status Sepsis Action Taken by Nursing 08/10/20 14:00 08/10/20 14:01 08/10/20 14:05 Temperature Temperature Source Pulse Rate Pulse Rate [Right Finger] Pulse Rate from SpO2 Sensor 80 79 Respiratory Rate 32 H 20 Respiratory Effort / Characteristics Respiratory Depth Respiratory Pattern Blood Pressure 206/123 H 193/119 H Blood Pressure [Right Radial Artery] Blood Pressure Mean 144 140 Blood Pressure Mean [Right Radial Artery] Blood Pressure Position [Right Radial Artery] Pulse Oximetry 97 97 96 Oxygen Delivery Method Room Air Sepsis Recent Fever Within 48 Hours Sepsis New/Unexplained Change in Mental Status Sepsis Action Taken by Nursing 08/10/20 14:10 08/10/20 14:20 08/10/20 14:30 Temperature Temperature Source Pulse Rate Pulse Rate [Right Finger] Pulse Rate from SpO2 Sensor 80 84 77 Respiratory Rate 25 H 17 17 Respiratory Effort / Characteristics Respiratory Depth Respiratory Pattern Blood Pressure 185/110 H Blood Pressure [Right Radial Artery] Blood Pressure Mean 131 Blood Pressure Mean [Right Radial Artery] Blood Pressure Position [Right Radial Artery] Pulse Oximetry 97 94 92 Oxygen Delivery Method Sepsis Recent Fever Within 48 Hours Sepsis New/Unexplained Change in Mental Status Sepsis Action Taken by Nursing 08/10/20 14:40 08/10/20 14:49 08/10/20 14:50 Temperature Temperature Source Pulse Rate Pulse Rate [Right Finger] 80 Pulse Rate from SpO2 Sensor 81 84 Respiratory Rate 25 H 20 19 Respiratory Effort / Characteristics Non-Labored Respiratory Depth Normal Respiratory Pattern Regular Blood Pressure 183/116 H Blood Pressure [Right Radial Artery] 183/116 H Blood Pressure Mean 133 Blood Pressure Mean [Right Radial Artery] 138 Blood Pressure Position [Right Radial Artery] Sitting Pulse Oximetry 96 100 96 Oxygen Delivery Method Room Air Sepsis Recent Fever Within 48 Hours Sepsis New/Unexplained Change in Mental Status Sepsis Action Taken by Nursing 08/10/20 14:51 08/10/20 15:00 08/10/20 15:10 Temperature Temperature Source Pulse Rate Pulse Rate [Right Finger] Pulse Rate from SpO2 Sensor 83 80 86 Respiratory Rate 18 23 20 Respiratory Effort / Characteristics Respiratory Depth Respiratory Pattern Blood Pressure 188/111 H Blood Pressure [Right Radial Artery] Blood Pressure Mean 128 Blood Pressure Mean [Right Radial Artery] Blood Pressure Position [Right Radial Artery] Pulse Oximetry 97 96 95 Oxygen Delivery Method Sepsis Recent Fever Within 48 Hours Sepsis New/Unexplained Change in Mental Status Sepsis Action Taken by Nursing 08/10/20 15:20 08/10/20 15:25 08/10/20 15:30 Temperature Temperature Source Pulse Rate Pulse Rate [Right Finger] Pulse Rate from SpO2 Sensor 84 85 78 Respiratory Rate 21 21 16 Respiratory Effort / Characteristics Respiratory Depth Respiratory Pattern Blood Pressure 191/123 H 205/129 H Blood Pressure [Right Radial Artery] Blood Pressure Mean 134 149 Blood Pressure Mean [Right Radial Artery] Blood Pressure Position [Right Radial Artery] Pulse Oximetry 96 97 97 Oxygen Delivery Method Sepsis Recent Fever Within 48 Hours Sepsis New/Unexplained Change in Mental Status Sepsis Action Taken by Nursing 08/10/20 15:40 08/10/20 15:50 08/10/20 16:00 Temperature Temperature Source Pulse Rate Pulse Rate [Right Finger] Pulse Rate from SpO2 Sensor 81 81 81 Respiratory Rate 18 16 25 H Respiratory Effort / Characteristics Respiratory Depth Respiratory Pattern Blood Pressure 179/110 H Blood Pressure [Right Radial Artery] Blood Pressure Mean 133 Blood Pressure Mean [Right Radial Artery] Blood Pressure Position [Right Radial Artery] Pulse Oximetry 96 95 95 Oxygen Delivery Method Sepsis Recent Fever Within 48 Hours Sepsis New/Unexplained Change in Mental Status Sepsis Action Taken by Nursing 08/10/20 16:10 Temperature Temperature Source Pulse Rate Pulse Rate [Right Finger] Pulse Rate from SpO2 Sensor 85 Respiratory Rate 22 Respiratory Effort / Characteristics Respiratory Depth Respiratory Pattern Blood Pressure Blood Pressure [Right Radial Artery] Blood Pressure Mean Blood Pressure Mean [Right Radial Artery] Blood Pressure Position [Right Radial Artery] Pulse Oximetry 96 Oxygen Delivery Method Sepsis Recent Fever Within 48 Hours Sepsis New/Unexplained Change in Mental Status Sepsis Action Taken by Nursing Physical Exam GENERAL: He is oriented to person, place, and time. He appears well-developed and well-nourished. He does not appear distressed. HENT: Exam performed. - Head: Normocephalic and atraumatic. - Right Ear: External ear normal. No mastoid tenderness. - Left Ear: External ear normal. No mastoid tenderness. - Mouth/Throat: The oropharynx is clear and moist. No trismus in the jaw. No dental abscesses or uvula swelling. No oropharyngeal exudate or tonsillar abscesses. EYES: Conjunctivae and EOM are normal. Pupils are equal, round, and reactive to light. Right eye exhibits no discharge. Left eye exhibits no discharge. No scleral icterus. NECK: Normal range of motion. Neck supple. No JVD present. No spinous process tenderness present. No carotid bruit present. No rigidity. No tracheal deviation and normal range of motion present. No Brudzinski's sign and no Kernig's sign noted. CV: Normal rate, regular rhythm, normal heart sounds and intact distal pulses. There is no peripheral edema. Palpable radial pulses bue. PULM/CHEST: Effort normal and breath sounds normal. No respiratory distress. No stridor. He has no wheezes. He has no rales. - Chest Wall: He exhibits no tenderness. ABD: The abdomen is soft. Bowel sounds are normal. He has no distension. No mass is present. There is no tenderness. There is no rebound, no guarding, no Blair's sign and no tenderness at McBurney's point. Rovsig negative. MUSC/SKEL: Normal range of motion. There is no peripheral edema, tenderness or deformity. LYMPH: No cervical adenopathy. NEURO: He is alert and oriented to person, place, and time. He has normal strength. No cranial nerve deficit or sensory deficit. Coordination and gait normal. GCS eye subscore is 4. GCS verbal subscore is 5. GCS motor subscore is 6. Cerebellar tests wnl. SKIN: Skin is warm and dry. He is not diaphoretic. PSYCH: He has a normal mood and affect. Behavior is normal. Judgment and thought content normal. Course Course 1315: The patient was evaluated in room C6. A complete history and physical exam was performed. Cardiac monitoring: An order was placed for continuous cardiac monitoring. The monitor shows a rate of 80 with sinus rhythm 1350: Spoke with radiology who states that they do not feel comfortable administering contrast to the patient given he has a history of throat swelling and closing when receiving iodine contrast. I did discuss with him that he has had multiple CTAs in the past here after being pretreated with Benadryl and Solu-Medrol however they still recommended against this and recommended getting a VQ scan. EMR reviewed. Patient has had 2 CTAs of the chest in 2019 in our system which were both negative for PE. Patient has scanned in radiology reports from [facility]. CTA of the chest done on July 27 showed no evidence of a large central PE but distal PEs cannot be excluded. Patient had a negative NM stress test done on July 28 at [facility] which was also negative. 1407: Patient was hypertensive in the emergency department still reporting chest pain. He states his pain feels exactly like when he has had PEs in the past. Discussed with Dr. Azevedo, the patient's PCP who referred him to the emergency department. Dr. Azevedo states he was concerned that the patient might have a small PE in the segmental branches and that is why he referred him to the emergency department to have a CTA of his chest. I informed him of the patient's blood pressure, and both Dr. Azevedo and I felt that if the patient was comfortable staying overnight that it would be prudent to admit him overnight for observation to have a VQ scan done in the morning. There is no available contrast to perform VQ scan in the emergency department right now. I feel it is extremely low risk that the patient has a PE given he is on Eliquis and states he has not missed any doses and he is not tachypneic and his oxygen saturation is normal, however given this is the reason the patient was sent to the emergency department by his PCP who knows him much better than I do has an established care I felt we would stick with their plan. [facility] hospitalist Dr. Neumann was notified of the patient. Administered Medications Discontinued Medications Diphenhydramine HCl (Diphenhydramine 50 Mg/Ml Vial) 25 mg IV NOW STA Stop: 08/10/20 13:30 Last Admin: 08/10/20 13:56 Dose: 25 mg Documented by: [id number] Ketorolac Tromethamine (Ketorolac Tromethamine 15 Mg/Ml Vial) 15 mg IV NOW STA Stop: 08/10/20 13:30 Last Admin: 08/10/20 13:56 Dose: 15 mg Documented by: [id number] Methylprednisolone (Methylprednisolone 125 Mg/2 Ml Vial) 125 mg IV NOW STA Stop: 08/10/20 13:30 Last Admin: 08/10/20 13:56 Dose: 125 mg Documented by: [id number] Morphine Sulfate (Morphine Sulfate 2 Mg/Ml Carp) 2 mg IV NOW STA Stop: 08/10/20 14:02 Last Admin: 08/10/20 14:12 Dose: 2 mg Documented by: [id number] Nitroglycerin (Nitroglycerin Sl 0.4 Mg/Tab Tab) 0.4 mg SL NOW STA Stop: 08/10/20 14:05 Last Admin: 08/10/20 14:12 Dose: 0.4 mg Documented by: [id number] Medical Decision Making Laboratory Data Result diagrams: 08/10/20 13:30 08/10/20 13:30 Labs: Lab Results 08/10/20 08/10/20 08/10/20 Range/Units 13:30 13:30 13:30 WBC 6.11 (4.8-10.8) K/uL RBC 5.00 (4.7-6.1) M/uL Hgb 14.9 (14.0-18.0) g/dL Hct 44.2 (42-52) % MCV 88.4 (80-100) fL MCH 29.8 (25-34) pg MCHC 33.7 (32-36) g/dL RDW Std Deviation 43.4 (36.4-46.3) fL RDW Coeff of Lillie 13.4 (11.5-14.5) % Plt Count 224 (130-400) K/uL MPV 12.2 H (7.4-10.4) fL Immature Gran % (Auto) 0.2 % Neut % (Auto) 47.2 % Lymph % (Auto) 44.0 % [place] % (Auto) 5.6 % Eos % (Auto) 2.5 % Baso % (Auto) 0.5 % Neut # (Auto) 2.89 (1.4-6.5) K/uL Lymph # (Auto) 2.69 (1.2-3.4) K/uL [place] # (Auto) 0.34 (0.11-0.59) K/uL Eos # (Auto) 0.15 (0-0.5) K/uL Baso # (Auto) 0.03 (0-0.2) K/uL Immature Gran # (Auto) 0.01 (0.00-0.02) K/uL PT 11.4 (9.0-12.0) Seconds INR 1.1 (0.9-1.1) APTT 30.5 (21.0-31.0) Seconds PTT Ratio 1.1 Sodium 142 (136-145) mmol/L Potassium 3.8 (3.5-5.1) mmol/L Chloride 110 H (98-107) mmol/L Carbon Dioxide 29 (21-32) mmol/L Anion Gap 3.0 (3-11) BUN 11 (7-18) mg/dl Creatinine 1.44 H (0.6-1.4) mg/dl Est Cr Clr Drug Dosing 93.0 ml/min Est GFR ( Amer) 66.1 Est GFR (Non-Af Amer) 57.0 BUN/Creatinine Ratio 7.6 L (10-20) Glucose 95 (70-99) mg/dl Calcium 8.9 (8.5-10.1) mg/dl Troponin I < 0.015 (0-0.045) ng/ml Imaging Data Chest x-ray: Radiologist's impression: SINGLE VIEW CHEST CLINICAL HISTORY: Atypical chest pain. FINDINGS: An AP, portable, upright chest radiograph is compared to study dated 02/26/2019. The examination is degraded by portable technique and apical lordotic positioning. The cardiomediastinal silhouette is unremarkable. The lungs and pleural spaces are clear. No pneumothorax is seen. The bony thorax is grossly intact. IMPRESSION: No active disease in the chest. ACT 112: Negative or not required by law. Electronically signed by: Kendall Dee M.D. 08/10/2020 4:02 PM Dictated: 08/10/20 160 Transcribed: 08/10/20 160 ECG Data Indication: chest pain Rate (beats per minute): 79 Rhythm: normal sinus Findings: + T-wave inversion (Lead III only); no ST depression and no ST elevation Additional Comments: GA QRS and QTc intervals are within normal limits MDM Narrative 1315: The patient was evaluated in room C6. A complete history and physical exam was performed. Cardiac monitoring: An order was placed for continuous cardiac monitoring. The monitor shows a rate of 80 with sinus rhythm 1350: Spoke with radiology who states that they do not feel comfortable administering contrast to the patient given he has a history of throat swelling and closing when receiving iodine contrast. I did discuss with him that he has had multiple CTAs in the past here after being pretreated with Benadryl and Solu-Medrol however they still recommended against this and recommended getting a VQ scan. EMR reviewed. Patient has had 2 CTAs of the chest in 2019 in our system which were both negative for PE. Patient has scanned in radiology reports from [facility]. CTA of the chest done on July 27 showed no evidence of a large central PE but distal PEs cannot be excluded. Patient had a negative NM stress test done on July 28 at [facility] which was also negative. 1407: Patient was hypertensive in the emergency department still reporting chest pain. He states his pain feels exactly like when he has had PEs in the past. Discussed with Dr. Azevedo, the patient's PCP who referred him to the emergency department. Dr. Azevedo states he was concerned that the patient might have a small PE in the segmental branches and that is why he referred him to the emergency department to have a CTA of his chest. I informed him of the patien t's blood pressure, and both Dr. Azevedo and I felt that if the patient was comfortable staying overnight that it would be prudent to admit him overnight for observation to have a VQ scan done in the morning. There is no available contrast to perform VQ scan in the emergency department right now. I feel it is extremely low risk that the patient has a PE given he is on Eliquis and states he has not missed any doses and he is not tachypneic and his oxygen saturation is normal, however given this is the reason the patient was sent to the emergency department by his PCP who knows him much better than I do has an established care I felt we would stick with their plan. [facility] hospitalist Dr. Neumann was notified of the patient. Impression & Plan Chest pain Discharge Plan Visit Data Chief Complaint: Chest Pain Stated Complaint: CHEST PAIN ED Provider: Eugenio Azar Discharge Problem: Chest pain Patient Disposition: Being Evaluated by Hospitalist Forms Stand Alone Forms: My [facility] Prescriptions Prescriptions: No Action baclofen 10 mg tablet 10 mg PO TID Qty: 270 RF: 1 Lantus U-100 Insulin 100 unit/mL solution 50 units SQ BID Qty: 30 RF: 5 pantoprazole 40 mg tablet,delayed release (DR/EC) 40 mg PO QAM Qty: 90 RF: 1 (DME) blood-glucose meter [QuanttusTouch Verio Meter] Misc See Rx Instructions .ROUTE .MEDSUPPLY Qty: 1 RF: 0 metformin 500 mg tablet 500 mg PO BID Qty: 180 RF: 3 (DME) OneTouch Verio test strips Strip See Rx Instructions .ROUTE .MEDSUPPLY Qty: 400 RF: 1 (DME) lancets [QuanttusTouch Delica Lancets] 33 gauge misc See Rx Instructions .ROUTE .MEDSUPPLY Qty: 400 RF: 1 epinephrine 0.3 mg/0.3 mL auto-injector 0.3 mg IM UD Qty: 1 RF: 2 diclofenac sodium 1 % gel 2 g TOP QID PRN (Reason: L shoulder postoperative pain) Qty: 100 RF: 2 lisinopril 20 mg tablet 20 mg PO QAM Qty: 90 RF: 1 metoprolol succinate 100 mg tablet extended release 24 hr 150 mg PO DAILY Qty: 135 RF: 1 clonazepam [Klonopin] 1 mg tablet 1 mg PO TID Qty: 90 RF: 0 insulin aspart U-100 [Novolog Flexpen U-100 Insulin] 100 unit/mL (3 mL) insulin pen 12 unit SQ AC Qty: 15 RF: 2 dextroamphetamine-amphetamine [Adderall XR] 25 mg capsule,extended release 24hr 25 mg PO DAILY Qty: 7 RF: 0 albuterol sulfate 90 mcg/actuation HFA aerosol inhaler 2 inha INH Q4H PRN (Reason: cough) RF: 0 thiamine HCl (vitamin B1) 100 mg tablet 100 mg PO BID RF: 0 naloxone 4 mg/actuation spray,non-aerosol 1 sprays intranasal Q2M PRN (Reason: (Drug) Ingestion) RF: 0 oxycodone 10 mg tablet 10 mg PO Q8H PRN (Reason: Pain) 30 Days Qty: 90 RF: 0 methylphenidate HCl [Ritalin] 20 mg tablet 20 mg PO BIDM Qty: 14 RF: 0 Eliquis 5 mg tablet 5 mg PO BID Qty: 180 RF: 1 amlodipine 5 mg tablet 5 mg PO DAILY Qty: 30 RF: 5 trazodone 50 mg tablet 50 mg PO HS RF: 0 duloxetine 60 mg capsule,delayed release(DR/EC) 60 mg PO DAILY RF: 0 enoxaparin [Lovenox] 120 mg/0.8 mL Syringe 120 mg SUBCUT UD PRN (Reason: ..) RF: 0 Referrals Referrals: Edgardo Azevedo DO [Primary Care Provider] - Discharge Problem: Chest pain Qualifiers: Chest pain type: unspecified Qualified Code(s): R07.9 - Chest pain, unspecified
--- NOTE | 2020-08-10 16:01 | History & Physical Report ---
Date of Service August 10, 2020 Assessment & Plan (1) Chest pain: Patient with acute on chronic chest pain. Questionable diagnosis of myositis previously described as causing his chest pain although patient adamantly feels this is the same pain he gets when he has had PEs before in the past. Plan for V/Q scan tomorrow. Despite apparent compliance with Eliquis possible failure due to his increased BMI - would consider switch back to warfarin if positive. Given constant nature for the last 2 weeks with recent negative NM stress at [place] no plan for further cardiac workup here. Patient reports prior negative testing for sickle cell therefore no suspicion of sickle cell crisis causing his ongoing pains. Discussed the possibility of pleuritis caused by alternative etiology other than PEs although patient is current not open to this suggestion at this stage. (2) Elevated creatine kinase: Suspect related to his muscle mass and stimulant use. IV fluids overnight. Possible myositis flare but given normal ESR suspect this is less likely unless he has a definitive rheumatological diagnosis of this in the past. Possible this with his elevated BP is causing his pain. Recommend discontinuation of stimulants (3) Hypertensive urgency: (4) DM type 2 (diabetes mellitus, type 2): HbA1C 7.3 Will continue patients usual Lantus 50 units BID with Novolog correction and carb coverage based on his basal dosing of insulin. (5) Anxiety: Continue his usual clonazepam and duloxetine (6) Elevated LFTs: Prior history of alcohol abuse. [facility] with hepatic steatosis - monitor with PCP, recommend weight loss. Possibly also from muscle given concurrent CK increase. Discontinue/wean stimulants as above. (7) Esophagitis: Continue pantoprazole Admission and Anticipated Discharge Date Admission Date: 08/10/2020 History of Present Illness Chief Complaint: Chest pain Primary Care Provider: DO Jordan Aguilar is a 50 year old male with history of rhabdomyolysis/myositis, pulmonary embolism, DKA who presents to the ER with chest pain. Pain is currently severity 8/10, across anterior chest wall, occasional radiation to his left arm, dull ache, worse on inspiration, feels like his lungs are being squeezed, ongoing since July 24 (never completely resolved since then. The patient also reports having night sweats and elevated blood pressure. He notes having all the same symptoms prior to his prior diagnoses of having a pulmonary embolism with negative d-dimers at that time. He was hospitalized at [facility] overnight from 07/27-07/28 and already had a workup for this same pain which has been persistent since then. Stayed overnight and had CT for PE however contrast timed such that distal PE could not be ruled out. Patient read this therefore feels it was not adequate to say he does not have a pulmonary embolism. NM perfusion scan was negative. He was started on amlodipine for hypertension but reported not picking this up yet. Per PCP note he missed his cardiology appointment. He reports compliance with taking his Eliquis. Previously only warfarin although he reports it was difficult to maintain adequate INR as per patient recollection. Of note he has had multiple prior workups for chest pain in the past most recently here in February 2019en he was diagnosed with GERD and rotator cuff pain. Normal stress echo here in Nov 2018. Patient reports this episode is different to those. He was followed up by his PCP today who performed a d-dimer which was elevated and therefore recommended coming to the ER for further evaluation. In the ER physician planned for CT for PE with pre-treatment of steroids/Benadryl however concerned about history of throat swelling to iodinated contrast that scan was not approved despite patient having multiple prior CT scans with contrast that he has not had symptoms. Therefore patient was referred to medicine for admission overnight for V/Q scan. Of note he is on a concerning combination of benzodiazepines, opiates and stimulants as an outpatient - reportedly unhappy with changing his psychiatrist as many of his medications were changed therefore planning on making smaller changes with his PCP currently. Most recently switching Xanax to clonazepam. Allergies Allergy/AdvReac Type Severity Reaction Status Date / Time iodine Allergy Severe THROAT Verified 08/10/20 10:48 SWELLING shellfish derived Allergy Severe THROAT Verified 08/10/20 10:48 SWELLING Iodinated Contrast Media Allergy Intermediate swelling Verified 08/10/20 10:48 hydrocodone AdvReac Intermediate GI ISSUES Verified 08/10/20 10:48 Plasma, Human Allergy Severe ANAPHYLAXIS Uncoded 08/10/20 10:48 Home Medications Home Medications Medication Instructions Recorded Confirmed Type albuterol sulfate 90 mcg/actuation 2 inha INH Q4H PRN gm 03/16/19 08/10/20 History aerosol inhaler thiamine HCl (vitamin B1) 100 mg 100 mg PO BID tab 06/10/19 08/10/20 History tablet naloxone 4 mg/actuation nasal spray 1 sprays INTRANASAL Q2M PRN ea 07/27/19 08/10/20 History enoxaparin [Lovenox] 120 mg SUBCUT UD PRN 11/25/19 08/10/20 History baclofen 10 mg tablet 10 mg PO TID #270 tab 01/10/20 08/10/20 Rx insulin glargine 100 unit/mL 50 units SQ BID #30 ml 04/10/20 08/10/20 Rx subcutaneous solution pantoprazole 40 mg tablet,delayed 40 mg PO QAM #90 tab 04/20/20 08/10/20 Rx release blood-glucose meter #1 ea 04/27/20 08/10/20 Rx metformin 500 mg tablet 500 mg PO BID #180 tab 05/11/20 08/10/20 Rx blood sugar diagnostic #400 ea 07/14/20 08/10/20 Rx lancets 33 gauge #400 ea 07/14/20 08/10/20 Rx epinephrine 0.3 mg/0.3 mL 0.3 mg IM UD #1 ea 07/26/20 08/10/20 Rx injection, auto-injector diclofenac sodium 1 % topical gel 2 g TOP QID PRN #100 g 07/31/20 08/10/20 Rx lisinopril 20 mg tablet 20 mg PO QAM #90 tab 07/31/20 08/10/20 Rx metoprolol succinate 100 mg 150 mg PO DAILY #135 tab 07/31/20 08/10/20 Rx tablet,extended release 24 hr clonazepam 1 mg tablet 1 mg PO TID #90 tab 08/01/20 08/10/20 Rx oxycodone 10 mg tablet 10 mg PO Q8H PRN 30 Days #90 tab 08/01/20 08/10/20 Rx insulin aspart U-100 100 unit/mL 12 unit SQ AC #15 ml 08/02/20 08/10/20 Rx (3 mL) subcutaneous pen dextroamphetamine-amphetamine ER 25 mg PO DAILY #7 cap 08/04/20 08/10/20 Rx 25 mg 24hr capsule,extend release amlodipine 5 mg tablet 5 mg PO DAILY #30 tab 08/10/20 08/10/20 Rx apixaban 5 mg tablet 5 mg PO BID #180 tab 08/10/20 08/10/20 Rx duloxetine 60 mg PO DAILY 08/10/20 08/10/20 History methylphenidate HCl 20 mg tablet 20 mg PO BIDM #14 tab 08/10/20 08/10/20 Rx trazodone 50 mg PO HS 08/10/20 08/10/20 History Past Med/Surg History Medical History Abnormal EKG 2017 > no further follow up needed per patient Alcohol intoxication hx Anxiety Blood clotting disorder unsure of specific details > Dr. Azevedo PCP Chest pain Chronic pain Chronic use of opiate for therapeutic purpose CKD (chronic kidney disease), stage III pt denies > says kidneys are normal Depression DM w/o complication type II, uncontrolled Esophagitis Gastrointestinal hemorrhage 2016 > resolved Hemoptysis resolved History of pleural effusion 2013> [facility] Hypertension Hypertriglyceridemia Insomnia Left ankle sprain Lesion of liver just watching > Dr. Azevedo Myalgia and myositis Obesity Precordial chest pain resolved Pulmonary embolism 4 total> last one 2015> Eliquis > came to [facility] Right knee pain Seafood allergy Transaminitis Uncontrolled type 2 diabetes mellitus with insulin therapy Vitamin D deficiency Surgical History History of cardiac cath 2016 due to chest pain> was clear per patient> no stents> [facility] History of colonoscopy History of esophagogastroduodenoscopy (EGD) Hx of surgical procedure colorectal for fissure S/P arthroscopy of shoulder 07/23/19 Dr. Cortes Carranza- Left shoulder arthroscopy with superior labrum anterior to posterior repair; Debridement of glenoid labrum; Synovectomy; Subacromial decompression with acromioplasty; Distal clavicle excision with excision of 10 mm of distal clavicle. Family History Mother , s/p brain aneurysm Aneurysm Other Hypertension Denies family history of Ovarian cancer Prostate cancer Myocardial infarction Breast cancer Colorectal cancer Social History Smoking Status: Never smoker Second Hand Exposure: No; Do You Dip or Chew Tobacco: No; Tobacco Cessation Education Requested by Patient: No Hx Alcohol Use: Yes Hx Substance Use: No Preferred Language: [place] Communication Ability: Effective Visual Impairment: No Limitations Hearing Ability: Normal Staff Writer Required: No Beliefs That Will Affect Care: None marital status: Single Current Living Situation: Alone current occupational status: disabled Other Information That Helps Us Care for You: No Feels Safe at Home: Yes Safety Concerns: Feels Safe At This Time Dental Care, Regularly: Yes Physical Activity Frequency: Does not Exercise Seatbelt Use: always Sunscreen Use: No Assistive Devices: None Review of Systems Review of Systems: All systems reviewed & are unremarkable except as noted in HPI & below Physical Exam Constitutional: well developed, well nourished and + obese; no acute distress Eyes: + anicteric sclerae; normal pupil size ENMT: external ear and nose normal, oropharynx normal Neck: trachea midline, no thyromegaly Respiratory: normal respiratory effort, lungs clear to auscultation Cardiovascular: RRR, no murmur, no edema Gastrointestinal (Abdomen): normal bowel sounds, soft, nontender, no hepatosplenomegaly Musculoskeletal: no cyanosis or clubbing, extremities motor strength 5/5 Skin: no rashes, warm and dry Neurologic: moves all extremities and awake; not confused Psychiatric: A+Ox3, euthymic affect Genitourinary: no CVA tenderness Results & Data Results & Data ([facility]) Vital Signs (Past 12 Hours) Vital Signs Temp Pulse Pulse Resp BP BP Pulse Ox 08/10/20 15:25 21 191/123 H 97 08/10/20 15:20 21 96 08/10/20 15:10 20 95 08/10/20 15:00 23 188/111 H 96 08/10/20 14:51 18 97 08/10/20 14:50 19 183/116 H 96 08/10/20 14:49 80 20 183/116 H 100 08/10/20 14:40 25 H 96 08/10/20 14:30 17 185/110 H 92 08/10/20 14:20 17 94 08/10/20 14:10 25 H 97 08/10/20 14:05 96 08/10/20 14:01 20 193/119 H 97 08/10/20 14:00 32 H 206/123 H 97 08/10/20 13:50 81 20 08/10/20 13:40 83 19 97 08/10/20 13:30 80 19 167/112 H 97 08/10/20 13:29 80 20 97 08/10/20 13:23 80 16 192/148 H 08/10/20 13:08 36.8 C 82 20 182/113 H 97 Diagnostic Findings SINGLE VIEW CHEST IMPRESSION: No active disease in the chest. ECG Indication: chest pain Rate (beats per minute): 79 Rhythm: normal sinus Findings: + T-wave inversion (Inferior) Comparison ECG Date: from (02/26/2019) Change: the following changes noted (TWI inferiorly new from last EKG but similar to prior EKGs prior to this) Code Status & VTE Plan Code Status Full VTE Prophylaxis Plan VTE Prophylaxis will be ordered: Yes PG Care Time/CCT Total # of Minutes Spent Total Time Spent with Patient: Total time spent is greater than 50% in coordination of care (as documented) at patient's floor/unit and/or counseling patient: Coding Level of Care Code 37365 OBS Care - Level 3 Diagnoses Chest pain R07.9 Chest pain type: unspecified Elevated creatine kinase R74.8 Hypertensive urgency I16.0 DM type 2 (diabetes mellitus, type 2) E11.9 Anxiety F41.9 Elevated LFTs R79.89 Esophagitis K20.9 (1) Chest pain Chest pain type: unspecified Qualified Code(s): R07.9 - Chest pain, unspecified
--- NOTE | 2020-08-10 16:03 | XRay Report ---
SINGLE VIEW CHEST CLINICAL HISTORY: Atypical chest pain. FINDINGS: An AP, portable, upright chest radiograph is compared to study dated 02/26/2019. The examina tion is degraded by portable technique and apical lordotic positioning. The cardiomediastinal silhoue tte is unremarkable. The lungs and pleural spaces are clear. No pneumothorax is seen. The bony thorax is grossly intact. IMPRESSION: No active disease in the chest. ACT 112: Negative or not required by law. Electronically signed by: Kendall Dee M.D. 08/10/2020 4:02 PM
[2020-08-10 16:52] LABS: C Reactive Protein 1.04 mg/dl (0-0.29)
[2020-08-10] MEDS: oxyCODONE HCL IR 5 MG TAB (IMMEDIATE RELEASE) PO PRN (17:46)
[2020-08-10] MEDS ORDERED: oxyCODONE HCL IR 5 MG TAB (IMMEDIATE RELEASE) PO PRN (19:20)
[2020-08-10] MEDS ORDERED: GLUCOSE 10 TABS/TUBE PO PRN (19:20)
[2020-08-10] MEDS ORDERED: GLUCAGON FOR INJ 1 MG VIAL SQ PRN (19:20)
[2020-08-10] MEDS ORDERED: POLYETHYLENE (MIRALAX) 17 GM PACK PO PRN (19:20)
[2020-08-10] MEDS ORDERED: DICLOFENAC SOD 1% GEL 100 GM TUBE EXT PRN (19:20)
[2020-08-10] MEDS ORDERED: DEXTROSE 50% 50 ML SYRINGE IV PRN (19:20)
[2020-08-10] MEDS ORDERED: ACETAMINOPHEN 325 MG TAB PO PRN (19:20)
[2020-08-10] MEDS ORDERED: ONDANSETRON INJ 2 MG/ML 2 ML VIAL IV PRN (19:20)
[2020-08-10] MEDS ORDERED: CARBOHYDRATES FOR HYPOGLYCEMIA PO PRN (19:20)
[2020-08-10] MEDS ORDERED: GLUCOSE 40% GEL 15 GM TUBE PO PRN (19:20)
[2020-08-10] MEDS ORDERED: hydrALAZINE HCL 20 MG/ML VIAL IV PRN (19:20)
[2020-08-10] MEDS: INSULIN ASPART 100 UNITS/ML 3 ML PEN SC SCH ×2 (20:15→21:10)
[2020-08-10] MEDS: ALBUT/IPRATROP 3MG/0.5MG NEB 3 ML VIAL NEB SCH (20:28)
[2020-08-10] MEDS ORDERED: traZODone HCL 50 MG TAB PO SCH (21:00)
[2020-08-10] MEDS: clonazePAM 1 MG TAB PO SCH (21:07)
[2020-08-10] MEDS: APIXABAN 5 MG TABLET PO SCH (21:08)
[2020-08-10] MEDS: amLODIPine BESYLATE 5 MG TAB PO SCH (21:08)
[2020-08-10] MEDS: BACLOFEN 10 MG TAB PO SCH (21:08)
[2020-08-10] MEDS: MoRPHine SULFATE 2 MG/ML CARP IV PRN ×2 (21:09→23:48)
[2020-08-10] MEDS: THIAMINE HCL 100 MG TAB PO SCH (21:09)
[2020-08-10] MEDS: INSULIN GLARGINE SOLOSTAR 100 UNITS/ML 3 ML PEN SQ SCH (21:09)
[2020-08-10] MEDS: NSS + 20MEQ KCL 20 MEQ/1,000 ML BAG IV SCH (21:27)
[2020-08-11] MEDS: oxyCODONE HCL IR 5 MG TAB (IMMEDIATE RELEASE) PO PRN ×2 (03:00→12:04)
[2020-08-11] MEDS: NSS + 20MEQ KCL 20 MEQ/1,000 ML BAG IV SCH ×2 (03:01→11:58)
[2020-08-11] MEDS: MoRPHine SULFATE 2 MG/ML CARP IV PRN (06:44)
[2020-08-11] MEDS: ALBUT/IPRATROP 3MG/0.5MG NEB 3 ML VIAL NEB SCH ×2 (07:46→11:12)
--- NOTE | 2020-08-11 08:32 | Nuclear Medicine Report ---
NM pulmonary perfusion CLINICAL HISTORY: Suspected pulmonary embolism COMPARISON STUDY: Chest x-ray dated 08/10/2020 FINDINGS: The patient was injected with 5.8 mCi of technetium 99m MAA. Images were acquired in the anterior pos terior and oblique projections. There are no significant perfusion abnormalities. IMPRESSION: Normal study. ACT 112: Negative or not required by law. Electronically signed by: Prakash Flores M.D. 08/11/2020 8:31 AM
[2020-08-11] MEDS: INSULIN ASPART 100 UNITS/ML 3 ML PEN SC SCH ×3 (08:36→16:49)
[2020-08-11] MEDS: INSULIN GLARGINE SOLOSTAR 100 UNITS/ML 3 ML PEN SQ SCH (08:37)
[2020-08-11] MEDS: THIAMINE HCL 100 MG TAB PO SCH (08:41)
[2020-08-11] MEDS: APIXABAN 5 MG TABLET PO SCH (08:42)
[2020-08-11] MEDS: BACLOFEN 10 MG TAB PO SCH ×2 (08:42→15:58)
[2020-08-11] MEDS: amLODIPine BESYLATE 5 MG TAB PO SCH (08:42)
[2020-08-11] MEDS: clonazePAM 1 MG TAB PO SCH ×2 (08:45→15:58)
[2020-08-11] MEDS ORDERED: METOPROLOL SUCC 50MG EXT REL TAB PO SCH (09:00)
[2020-08-11] MEDS ORDERED: PANTOprazole 40 MG TAB PO SCH (09:00)
[2020-08-11] MEDS ORDERED: DULoxetine HCL 60 MG CAP PO SCH (09:00)
[2020-08-11] MEDS ORDERED: lisinopril 20 MG TAB PO SCH (09:00)
[2020-08-11] MEDS ORDERED: diphenhydrAMINE 50 MG/ML VIAL IV STA (11:44)
[2020-08-11] MEDS ORDERED: methylPREDNISolone 40 MG in SYRINGE 0 ML IV ONE (12:00)
[2020-08-11 12:32] LABS: BUN Creatinine Ratio 9.5 (10-20); Calcium 8.4 mg/dl (8.5-10.1); Creatinine Clr Calc Pharmacy 97.1 ml/min; Est GFR (African American) 69.6; Potassium 3.7 mmol/L (3.5-5.1)
[2020-08-11] MEDS ORDERED: ALBUT/IPRATROP 3MG/0.5MG NEB 3 ML VIAL NEB PRN (13:43)
[2020-08-11] MEDS ORDERED: diphenhydrAMINE 50 MG/ML VIAL IV SCH (15:00)
[2020-08-11] MEDS ORDERED: OPTIRAY 320 125ml IV ONE (15:54)
--- NOTE | 2020-08-11 16:08 | CT Scan Report ---
CT ANGIOGRAM OF THE CHEST CLINICAL HISTORY: Atypical chest pain. COMPARISON STUDY: Chest CT scans dated 01/28/2019 and 05/17/2018. Nuclear pulmonary perfusion scan date d 08/11/2020. TECHNIQUE: Following the IV administration of 116 cc of Optiray 320, CT angiogram of the chest was pe rformed from the upper abdomen to the thoracic inlet utilizing the pulmonary embolus protocol. Images are reviewed in the axial, sagittal, and coronal planes. 3-D MIPS images are created and assessed. I V contrast was administered without complication. A dose lowering technique was utilized adhering to the principles of ALARA. CT DOSE: 844.45 mGy.cm FINDINGS: Thyroid: Imaged portions of the thyroid gland are normal in size and attenuation. Thoracic aorta: The thoracic aorta is normal in caliber and demonstrates standard 3-vessel arch anato my. No dissection is seen. Pulmonary vasculature: The pulmonary trunk is normal in caliber. There are no filling defects identif ied in main, lobar, or segmental pulmonary branches to suggest pulmonary embolus. Heart: The heart is normal in size and without pericardial effusion. Lungs and pleural spaces: There is no airspace consolidation or pleural effusion. Dependent atelectas is is seen bilaterally. The trachea and central airways are clear. Mediastinum: There is no mediastinal lymphadenopathy. Leisa: Clear. Axillae: There is no axillary lymphadenopathy. Upper abdomen: There is a small hiatal hernia. The liver appears steatotic. Skeletal structures: No lytic or blastic bony lesions are seen. IMPRESSION: 1. There is no evidence of pulmonary embolus in the main, lobar, or segmental pulmonary arteries. 2. There is no airspace consolidation or pleural effusion. ACT 112: Negative or not required by law. Electronically signed by: Kendall Dee M.D. 08/11/2020 4:07 PM
--- NOTE | 2020-08-11 17:04 | Discharge Summary ---
Date of Service August 11, 2020 Admission HPI Per Admitting Provider Jordan Delaney is a 50 year old male with history of rhabdomyolysis/myositis, pulmonary embolism, DKA who presents to the ER with chest pain. Pain is currently severity 8/10, across anterior chest wall, occasional radiation to his left arm, dull ache, worse on inspiration, feels like his lungs are being squeezed, ongoing since July 24 (never completely resolved since then. The patient also reports having night sweats and elevated blood pressure. He notes having all the same symptoms prior to his prior diagnoses of having a pulmonary embolism with negative d-dimers at that time. He was hospitalized at [facility] overnight from 07/27-07/28 and already had a workup for this same pain which has been persistent since then. Stayed overnight and had CT for PE however contrast timed such that distal PE could not be ruled out. Patient read this therefore feels it was not adequate to say he does not have a pulmonary embolism. NM perfusion scan was negative. He was started on amlodipine for hypertension but reported not picking this up yet. Per PCP note he missed his cardiology appointment. He reports compliance with taking his Eliquis. Previously only warfarin although he reports it was difficult to maintain adequate INR as per patient recollection. Of note he has had multiple prior workups for chest pain in the past most recently here in February 2019en he was diagnosed with GERD and rotator cuff pain. Normal stress echo here in Nov 2018. Patient reports this episode is different to those. He was followed up by his PCP today who performed a d-dimer which was elevated and therefore recommended coming to the ER for further evaluation. In the ER physician planned for CT for PE with pre-treatment of steroids/Benadryl however concerned about history of throat swelling to iodinated contrast that scan was not approved despite patient having multiple prior CT scans with contrast that he has not had symptoms. Therefore patient was referred to medicine for admission overnight for V/Q scan. Of note he is on a concerning combination of benzodiazepines, opiates and stimulants as an outpatient - reportedly unhappy with changing his psychiatrist as many of his medications were changed therefore planning on making smaller changes with his PCP currently. Most recently switching Xanax to clonazepam. Principal Diagnosis Pleuritic chest pain Discharge Exam Constitutional WD/WN, vitals as above Neck trachea midline, no thyromegaly Respiratory normal respiratory effort, lungs clear to auscultation Cardiovascular RRR, no murmur, no edema Gastrointestinal (Abdomen) normal bowel sounds, soft, nontender, no hepatosplenomegaly Musculoskeletal no cyanosis or clubbing, extremities motor strength 5/5 Skin no rashes, warm and dry Neurologic patellar DTR's 2+ bilat, sensation intact and PERRL, EOMI, accommodation nl, no face palsy, no dysarthria Psychiatric A+Ox3, euthymic affect Lymphatic no cervical or axillary lymphadenopathy Discharge Data Allergies Allergy/AdvReac Type Severity Reaction Status Date / Time iodine Allergy Severe THROAT Verified 08/10/20 10:48 SWELLING shellfish derived Allergy Severe THROAT Verified 08/10/20 10:48 SWELLING Iodinated Contrast Media Allergy Intermediate swelling Verified 08/10/20 10:48 hydrocodone AdvReac Intermediate GI ISSUES Verified 08/10/20 10:48 Plasma, Human Allergy Severe ANAPHYLAXIS Uncoded 08/10/20 10:48 Consultations 08/10/20 14:36 ED Decision to Admit Stat Ordered Studies 08/11/20 15:30 CT angio chest PE protocol Urgent Hospital Course (1) Chest pain: Patient with acute on chronic chest pain. Questionable diagnosis of myositis previously described as causing his chest pain although patient adamantly feels this is the same pain he gets when he has had PEs before in the past. V/Q scan was normal on 08/11 he was still concerned about a PE, said that he has had 5 PE's in his lifetime he has been on Coumadin and then Xarelto and then Coumadin and now Eliquis he said he has been tested for hypercoagulable mutations, he has seen specialists at [place] and [place] with no explanation for his recurrent clots on anticoagulation CTA of the chest done after he was premedicated with Solu Medrol and Benadryl no evidence of segmental or subsegmental PE, no infiltrate, no changes in pleural lining discussed with patient that on imaging there is no explanation for his pain he said that he has a stress test last week at [place] so there is no need to repeat that will discharge to home, recommend follow up with his PCP (2) Elevated creatine kinase: Suspect related to his muscle mass and stimulant use. IV fluids overnight. Possible myositis flare but given normal ESR suspect this is less likely unless he has a definitive rheumatological diagnosis of this in the past. Possible this with his elevated BP is causing his pain. Recommend discontinuation of stimulants, follow up with PCP (3) Hypertensive urgency: (4) DM type 2 (diabetes mellitus, type 2): HbA1C 7.3 Will continue patients usual Lantus 50 units BID with Novolog correction and carb coverage based on his basal dosing of insulin. (5) Anxiety: Continue his usual clonazepam and duloxetine (6) Elevated LFTs: Prior history of alcohol abuse. [facility] [place] with hepatic steatosis - monitor with PCP, recommend weight loss. Possibly also from muscle given concurrent CK increase. Discontinue/wean stimulants as above. (7) Esophagitis: Continue pantoprazole Total Time Total Time Spent Total Time Spent (In Minutes): 32 Total Time Includes: Examination of the Patient, Discharge Planning and Medication Reconciliation Discharge Plan Discharge Items Patient Disposition: Home - Self-Care Reason For Visit: CHEST PAIN, CONCERN FOR PE Discharge Diagnosis: Pleuritic chest pain, unclear etiology Condition on Discharge: Good Activity: Resume your previous activity Non-emergency contact: Primary Care Provider Call non-emergency contact if: you have any medication questions Follow-up/Referrals: Edgardo Azevedo DO [Primary Care Provider] - 08/17/20 2:00 pm (one week) Diet: Carb Consistent or DM2 and Heart Healthy Addtl Attending Provider Instructions: No medication changes No evidence of pulmonary embolism on testing V/Q scan was normal this morning CT angiogram of the chest shows no evidence of pulmonary embolism, no pneumonia, no rib injury, no thickening of pleural lining recommend follow up with PCP if pain continues Pending Studies at Discharge: No Stand-Alone Forms: My [facility] [employer], Smoking Cessation Medications and DC Order Prescriptions: Continued baclofen 10 mg tablet 10 mg PO TID Qty: 270 RF: 1 Lantus U-100 Insulin 100 unit/mL solution 50 units SQ BID Qty: 30 RF: 5 pantoprazole 40 mg tablet,delayed release (DR/EC) 40 mg PO QAM Qty: 90 RF: 1 (DME) blood-glucose meter [OneTouch Verio Meter] Misc See Rx Instructions .ROUTE .MEDSUPPLY Qty: 1 RF: 0 metformin 500 mg tablet 500 mg PO BID Qty: 180 RF: 3 (DME) OneTouch Verio test strips Strip See Rx Instructions .ROUTE .MEDSUPPLY Qty: 400 RF: 1 (DME) lancets [OneTouch Delica Lancets] 33 gauge misc See Rx Instructions .ROUTE .MEDSUPPLY Qty: 400 RF: 1 epinephrine 0.3 mg/0.3 mL auto-injector 0.3 mg IM UD Qty: 1 RF: 2 diclofenac sodium 1 % gel 2 g TOP QID PRN (Reason: L shoulder postoperative pain) Qty: 100 RF: 2 lisinopril 20 mg tablet 20 mg PO QAM Qty: 90 RF: 1 metoprolol succinate 100 mg tablet extended release 24 hr 150 mg PO DAILY Qty: 135 RF: 1 clonazepam [Klonopin] 1 mg tablet 1 mg PO TID Qty: 90 RF: 0 insulin aspart U-100 [Novolog Flexpen U-100 Insulin] 100 unit/mL (3 mL) insulin pen 12 unit SQ AC Qty: 15 RF: 2 dextroamphetamine-amphetamine [Adderall XR] 25 mg capsule,extended release 24hr 25 mg PO DAILY Qty: 7 RF: 0 albuterol sulfate 90 mcg/actuation HFA aerosol inhaler 2 inha INH Q4H PRN (Reason: cough) RF: 0 thiamine HCl (vitamin B1) 100 mg tablet 100 mg PO BID RF: 0 naloxone 4 mg/actuation spray,non-aerosol 1 sprays intranasal Q2M PRN (Reason: (Drug) Ingestion) RF: 0 oxycodone 10 mg tablet 10 mg PO Q8H PRN (Reason: Pain) 30 Days Qty: 90 RF: 0 methylphenidate HCl [Ritalin] 20 mg tablet 20 mg PO BIDM Qty: 14 RF: 0 Eliquis 5 mg tablet 5 mg PO BID Qty: 180 RF: 1 amlodipine 5 mg tablet 5 mg PO DAILY Qty: 30 RF: 5 trazodone 50 mg tablet 50 mg PO HS RF: 0 duloxetine 60 mg capsule,delayed release(DR/EC) 60 mg PO DAILY RF: 0 enoxaparin [Lovenox] 120 mg/0.8 mL Syringe 120 mg SUBCUT UD PRN (Reason: ..) RF: 0 Discharge Orders: Discharge Order (Routine); Ordered 08/11/20 Ordered By: Marcus Morgan Admission Data Admit Date/Time: 08/10/20 16:29 Attending Provider: Marcus Morgan Admit Provider: Charlie Neumann Primary Care Provider: Edgardo Azevedo Other Providers: Charlie Neumann Other Interventions: Discharge Summary Assessment (RN) Last Done: 08/11/20 16:40 Coding Level of Care Code 59799 OBS Care - Discharge Diagnoses Chest pain R07.9 Chest pain type: unspecified Elevated creatine kinase R74.8 Hypertensive urgency I16.0 DM type 2 (diabetes mellitus, type 2) E11.9 Anxiety F41.9 Elevated LFTs R79.89 Esophagitis K20.9
--- NOTE | 2020-08-11 19:11 | Electrocardiogram Report ---
Test Reason : Blood Pressure : / mmHG Vent. Rate : 079 BPM Atrial Rate : 079 BPM P-R Int : 156 ms QRS Dur : 086 ms QT Int : 378 ms P-R-T Axes : 056 028 -21 degrees QTc Int : 433 ms Normal sinus rhythm T wave abnormality, consider inferolateral ischemia Abnormal ECG When compared with ECG of 26-FEB-2019 00:03, Inverted T waves have replaced nonspecific T wave abnormality in Inferior leads T wave inversion less evident in Anterolateral leads Confirmed by Srikanth Gonzales ([id number]) on 08/11/2020 7:11:06 PM Referred By: Edgardo Azevedo Confirmed By:Srikanth Gonzales
== END 2020-08-11 17:40 | disposition home or self-care (01) ==
LOC: ED 13:06 → 2N 13:06 → SUATTDRO 16:29 → 2N 19:09

== ENCOUNTER 2022-01-19 00:12 | Observation (INO) ==
--- NOTE | 2022-01-19 00:25 | Emergency Department Note ---
Impression & Plan Acute cholecystitis ADMIT ED Provider Note HPI: The patient is a 51-year-old male who presents the emergency department with a chief complaint of 3 days of nausea and vomiting, patient states he has had some pain in his upper abdomen during this time. Patient states he is also had some mild shortness of breath, states he has had discomfort in the lower portion of his chest/upper abdomen. Patient states he is concerned because he is supposed to be taking Eliquis for history of PE, states that he has been vomiting so much that he believes he has vomited up his Eliquis when he is taking it over the past 3 days. On arrival here to the ED the patient is tachycardic in the 120s, he is otherwise saturating well on room air and he is in hemodynamically stable condition aside from his tachycardia on presentation. ROS: -GI: Upper abdominal pain, nausea and vomiting -Pulmonary: Shortness of breath *10 point review systems was conducted and is otherwise negative unless stated above *Outpatient medications and allergy history reviewed PE: General: Alert, NAD, Obese HEENT: Normocephalic, atraumatic Eyes: Extraocular eye movement is intact, no scleral erythema Pulmonary: Clear to auscultation bilaterally, no wheezing Cardio: Tachycardic rate with regular rhythm GI: Abdomen is soft, moderate tenderness to palpation in the upper abdomen, there is tenderness in the right upper quadrant to palpation : No suprapubic tenderness MSK: No evidence of trauma or malformation of the extremities, no edema Skin: No evidence of rash Neuro: Alert, no focal deficits 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 No aortic aneurysm or dissection. The heart size is normal. Lungs are clear. No pathologically enlarged lymph nodes. No fracture. CT ABDOMEN & PELVIS With Contrast: Fatty infiltration of the liver. The remaining solid organs are within normal limits. No bowel obstruction. Normal appendix. Diverticulosis. Thickening of the urinary bladder wall is concerning for cystitis. There is a small amount of fluid in the pelvis which is nonspecific. No fracture. Radiologist: Carlene Palacios MD US RUQ: Hepatomegaly and fatty infiltration of the liver. Gallbladder sludge. Mild thickening of the wall of the gallbladder with pericholecystic fluid is concerning for acute cholecystitis. No other acute finding. Radiologist: Carlene Palacios MD EKG: Rate: 131 Rhythm: Sinus tachycardia Intervals: Within normal limits ST changes: No ST elevation Time: 0044 Medical Decision Making: Patient presented to the emergency department with nausea and vomiting, com plained of some upper abdominal pain, he states he does have a history of PE and he is unsure whether or not he has tolerated his Eliquis over the past several days secondary to his vomiting. Shortly after arrival IV was established, lab work obtained, patient was placed on a monitoring analyst, noted to be tachycardic but otherwise hemodynamically stable. Patient was given morphine and Zofran, lab work shows evidence of a mildly elevated troponin at 0.05, patient denies any chest pain, lab work also shows evidence of acute on chronic kidney injury with creatinine of 2.16, this is slightly above the patient's baseline, he was given IV fluids in the ED, also noted to have a very significant transaminitis with AST elevated at greater than 7000, ALT greater than 2500, bilirubin of 2.7. CT imaging of the chest does not show any evidence of pulmonary embolism or dissection, CT imaging of the abdomen pelvis does not show any acute surgical abnormality. Given the patient's transaminitis and hyperbilirubinemia I did obtain ultrasound imaging of the right upper quadrant as the patient was having some tenderness in this area on my exam as well, ultrasound imaging is concerning for acute cholecystitis with mention of gallbladder sludge, mild thickening of the wall of the gallbladder as well as pericholecystic fluid. Case was discussed with on-call general surgery midlevel provider, Miles Lee PA-C, for surgical consultation here in the ED. Patient will be admitted to the medicine service given his ongoing comorbidities as well as a slightly elevated troponin, I suspect this is demand ischemia in the setting of his tachycardia given that he does not have any chest pain his EKG does not show any acute ischemic changes. Given the patient's multiple comorbidities as well as his e levated troponin, transaminitis, elevated bilirubin, patient will be admitted to the medicine service following my discussion with the on-call hospitalist, Dr. Stanton. Patient is in agreement to the above plan he was admitted in stable condition. Diagnosis: 1. Acute cholecystitis 2. Transaminitis, hyperbilirubinemia 3. Acute abdominal pain, upper portion 4. Elevated troponin 5. Tachycardia 6. Nausea and vomiting Disposition: ADMIT Michael Smith, DO Emergency Medicine Past Med/Surg History Medical History Abnormal EKG 2017 > no further follow up needed per patient Alcohol intoxication hx Anxiety Blood clotting disorder unsure of specific details > Dr. Azevedo PCP Chest pain Chronic pain Chronic use of opiate for therapeutic purpose CKD (chronic kidney disease), stage III pt denies > says kidneys are normal Depression DM w/o complication type II, uncontrolled Esophagitis Gastrointestinal hemorrhage 2016 > resolved Hemoptysis resolved History of pleural effusion 2013> [facility] Hypertension Hypertriglyceridemia Insomnia Left ankle sprain Lesion of liver just watching > Dr. Azevedo Myalgia and myositis Obesity Precordial chest pain resolved Pulmonary embolism 4 total> last one 2015> Eliquis > came to [facility] Right knee pain Seafood allergy Transaminitis Uncontrolled type 2 diabetes mellitus with insulin therapy Vitamin D deficiency Surgical History History of cardiac cath 2016 due to chest pain> was clear per patient> no stents> [facility] History of colonoscopy History of esophagogastroduodenoscopy (EGD) History of shoulder surgery (~11/2019) left Hx of surgical procedure colorectal for fissure S/P arthroscopy of shoulder 07/23/19 Dr. Cortes Carranza- Left shoulder arthroscopy with superior labrum anterior to posterior repair; Debridement of glenoid labrum; Synovectomy; Subacromial decompression with acromioplasty; Distal clavicle excision with excision of 10 mm of distal clavicle. Family History Mother , s/p brain aneurysm Aneurysm Other Hypertension Denies family history of Ovarian cancer Prostate cancer Myocardial infarction Breast cancer Colorectal cancer Social History Smoking Status: Never smoker Second Hand Exposure: No; Hx Alcohol Use: No Hx Substance Use: No Preferred Language: Malay Communication Ability: Effective Visual Impairment: No Limitations Hearing Ability: Normal Unix Engineer Required: No Beliefs That Will Affect Care: None marital status: Single Current Living Situation: Alone current occupational status: disabled Feels Safe at Home: Yes Dental Care, Regularly: Yes Physical Activity Frequency: Does not Exercise Seatbelt Use: always Sunscreen Use: No Assistive Devices: None Allergies Allergies Allergy/AdvReac Type Severity Reaction Status Date / Time iodine Allergy Severe THROAT Verified 12/13/21 15:54 SWELLING shellfish derived Allergy Severe THROAT Verified 12/13/21 15:54 SWELLING acetaminophen Allergy Intermediate Chest Pain Verified 12/13/21 15:54 Iodinated Contrast Media Allergy Intermediate swelling Verified 12/13/21 15:54 hydrocodone AdvReac Intermediate GI ISSUES Verified 12/13/21 15:54 Plasma, Human Allergy Severe ANAPHYLAXIS Uncoded 12/13/21 15:54 Home Meds Home Medications Medication Instructions Recorded Confirmed naloxone 4 mg/actuation nasal spray 1 sprays INTRANASAL Q2M PRN ea 07/27/19 12/13/21 Previous Rx's Medication Instructions Recorded blood-glucose meter (OneTouch #1 ea 04/27/20 Verio Meter) blood sugar diagnostic (OneTouch #400 ea 07/14/20 Verio test strips) lancets 33 gauge (OneTouch Delica #400 ea 07/14/20 Lancets) epinephrine 0.3 mg/0.3 mL 0.3 mg IM UD #1 ea 07/26/20 injection, auto-injector miscellaneous medical supply #1 ea 08/21/20 (Blood Pressure Cuff) blood sugar diagnostic (FreeStyle #100 ea 10/16/20 Test) diclofenac sodium 1 % topical gel 2 g TOPICAL QID #100 g 03/30/21 lisinopril 20 mg tablet 20 mg PO QAM #90 tab 06/26/21 TENS units (TENS 502) #1 ea 08/06/21 pantoprazole 40 mg tablet,delayed 40 mg PO QAM #90 tab 08/20/21 release apixaban 5 mg tablet (Eliquis) 5 mg PO BID #180 tab 09/14/21 insulin aspart U-100 100 unit/mL 12 unit SQ AC #45 ml 09/19/21 (3 mL) subcutaneous pen (Novolog Flexpen U-100 Insulin aspart) insulin glargine 100 unit/mL (3 50 unit SUBCUT BID #45 ml 09/19/21 mL) subcutaneous pen (Lantus Solostar U-100 Insulin) pen needle, diabetic 32 gauge x #300 ea 09/19/2110/16" (BD Ultra-Fine Micro Pen Needle) duloxetine 60 mg capsule,delayed 60 mg PO QAM #30 cap 10/22/21 release baclofen 10 mg tablet 10 mg PO TID #270 tab 11/14/21 duloxetine 20 mg capsule,delayed 20 mg PO QAM #30 cap 01/07/22 release clonazepam 2 mg tablet 2 mg PO BID 30 Days #60 tab 01/11/22 methylphenidate HCl 20 mg tablet 20 mg PO BIDM 30 Days #60 tab 01/11/22 (Ritalin) Results & Data (ED) Vital Signs Vital Signs - 24 hr 01/19/22 00:22 01/19/22 01:10 01/19/22 02:17 Temperature 37 C Temperature Source Oral Pulse Rate 127 H Pulse Rate [Right Radial] 122 H 115 H Respiratory Rate 22 22 20 Respiratory Effort / Characteristics Non-Labored Spontaneous Non-Labored Spontaneous Non-Labored Respiratory Depth Normal Normal Normal Blood Pressure 127/91 Blood Pressure [Right Arm] 126/59 L 128/97 Blood Pressure Mean 103 Blood Pressure Mean [Right Arm] 81 107 Blood Pressure Position Sitting Blood Pressure Position [Right Arm] Sitting Sitting Pulse Oximetry 97 97 98 Oxygen Delivery Method Room Air Room Air Room Air Sepsis Recent Fever Within 48 Hours No Sepsis New/Unexplained Change in Mental Status No Sepsis Action Taken by Nursing No Action Required 01/19/22 03:17 01/19/22 04:55 Temperature Temperature Source Pulse Rate Pulse Rate [Right Radial] 113 H 118 H Respiratory Rate 22 20 Respiratory Effort / Characteristics Non-Labored Spontaneous Non-Labored Respiratory Depth Normal Normal Blood Pressure Blood Pressure [Right Arm] 149/87 H 135/87 Blood Pressure Mean Blood Pressure Mean [Right Arm] 107 103 Blood Pressure Position Blood Pressure Position [Right Arm] Sitting Sitting Pulse Oximetry 95 95 Oxygen Delivery Method Room Air Room Air Sepsis Recent Fever Within 48 Hours Sepsis New/Unexplained Change in Mental Status Sepsis Action Taken by Nursing Laboratory Data Result diagrams: 01/19/22 00:04 01/19/22 00:04 Lab Results 01/19/22 01/19/22 01/19/22 Range/Units 00:04 00:04 03:30 WBC 8.60 (4.8-10.8) K/uL RBC 5.16 (4.7-6.1) M/uL Hgb 15.7 (14.0-18.0) g/dL Hct 44.8 (42-52) % MCV 86.8 (80-100) fL MCH 30.4 (25-34) pg MCHC 35.0 (32-36) g/dL RDW Std Deviation 42.8 (36.4-46.3) fL RDW Coeff of Lillie 13.6 (11.5-14.5) % Plt Count 33 L (130-400) K/uL Immature Gran % (Auto) 0.1 % Neut % (Auto) 86.8 % Lymph % (Auto) 8.6 % [place] % (Auto) 4.4 % Eos % (Auto) 0.0 % Baso % (Auto) 0.1 % Neut # (Auto) 7.46 H (1.4-6.5) K/uL Lymph # (Auto) 0.74 L (1.2-3.4) K/uL [place] # (Auto) 0.38 (0.11-0.59) K/uL Eos # (Auto) 0.00 (0-0.5) K/uL Baso # (Auto) 0.01 (0-0.2) K/uL Immature Gran # (Auto) 0.01 (0.00-0.02) K/uL Platelet Estimate SIGNIFIC DECREASED (Normal) Sodium 140 (136-145) mmol/L Potassium 4.6 (3.5-5.1) mmol/L Chloride 99 (98-107) mmol/L Carbon Dioxide 20 L (21-32) mmol/L Anion Gap 21 H (3-11) BUN 25 H (6-23) mg/dl Creatinine 2.19 H (0.6-1.4) mg/dl Est Cr Clr Drug Dosing 55.7 ml/min Est GFR ( Amer) 39.5 ml/min Est GFR (Non-Af Amer) 34.1 ml/min BUN/Creatinine Ratio 11.4 (10-20) Glucose 180 H (70-99(Fasting)) mg/dl Calcium 10.0 (8.5-10.1) mg/dl Total Bilirubin 2.7 H (0.2-1.0) mg/dl AST 7295 H (13-39) U/L ALT > 2500 H (7-52) U/L Alkaline Phosphatase 149 H (34-104) U/L Troponin I 0.05 H* (0-0.04) ng/ml Total Protein 9.0 H (6.0-8.3) gm/dl Albumin 4.7 (3.4-5.0) gm/dl Globulin 4.3 H (2.5-4.0) gm/dl Albumin/Globulin Ratio 1.1 (0.9-2) Lipase 105 H (11-82) U/L Urine Color Urine Appearance (Clear) Urine pH (4.5-7.5) Ur Specific [place] (1.000-1.030) Urine Protein (Negative) Urine Glucose (UA) (Negative) Urine Ketones (Negative) Urine Blood (Negative) Urine Nitrite (Negative) Urine Bilirubin (Negative) Urine Urobilinogen (Negative) Ur Leukocyte Esterase (Negative) Ethyl Alcohol mg/dL < 10.0 (<10.0) mg/dl 01/19/22 Range/Units 03:30 WBC (4.8-10.8) K/uL RBC (4.7-6.1) M/uL Hgb (14.0-18.0) g/dL Hct (42-52) % MCV (80-100) fL MCH (25-34) pg MCHC (32-36) g/dL RDW Std Deviation (36.4-46.3) fL RDW Coeff of Lillie (11.5-14.5) % Plt Count (130-400) K/uL Immature Gran % (Auto) % Neut % (Auto) % Lymph % (Auto) % [place] % (Auto) % Eos % (Auto) % Baso % (Auto) % Neut # (Auto) (1.4-6.5) K/uL Lymph # (Auto) (1.2-3.4) K/uL [place] # (Auto) (0.11-0.59) K/uL Eos # (Auto) (0-0.5) K/uL Baso # (Auto) (0-0.2) K/uL Immature Gran # (Auto) (0.00-0.02) K/uL Platelet Estimate (Normal) Sodium (136-145) mmol/L Potassium (3.5-5.1) mmol/L Chloride (98-107) mmol/L Carbon Dioxide (21-32) mmol/L Anion Gap (3-11) BUN (6-23) mg/dl Creatinine (0.6-1.4) mg/dl Est Cr Clr Drug Dosing ml/min Est GFR ( Amer) ml/min Est GFR (Non-Af Amer) ml/min BUN/Creatinine Ratio (10-20) Glucose (70-99(Fasting)) mg/dl Calcium (8.5-10.1) mg/dl Total Bilirubin (0.2-1.0) mg/dl AST (13-39) U/L ALT (7-52) U/L Alkaline Phosphatase (34-104) U/L Troponin I (0-0.04) ng/ml Total Protein (6.0-8.3) gm/dl Albumin (3.4-5.0) gm/dl Globulin (2.5-4.0) gm/dl Albumin/Globulin Ratio (0.9-2) Lipase (11-82) U/L Urine Color Dark Yellow Urine Appearance Turbid A (Clear) Urine pH 5.0 (4.5-7.5) Ur Specific [place] > 1.045 H (1.000-1.030) Urine Protein 3+ H (Negative) Urine Glucose (UA) Negative (Negative) Urine Ketones Trace H (Negative) Urine Blood 3+ H (Negative) Urine Nitrite Negative (Negative) Urine Bilirubin Negative (Negative) Urine Urobilinogen Negative (Negative) Ur Leukocyte Esterase Negative (Negative) Ethyl Alcohol mg/dL (<10.0) mg/dl Administered Medications Discontinued Medications Diphenhydramine HCl (Diphenhydramine 50 Mg/Ml Vial) 25 mg IV NOW STA Stop: 01/19/22 00:31 Last Admin: 01/19/22 00:50 Dose: 25 mg Documented by: [id number] Hydromorphone HCl (Hydromorphone Inj 1 Mg/Ml Syringe) 1 mg IV NOW STA Stop: 01/19/22 04:30 Last Admin: 01/19/22 04:43 Dose: 1 mg Documented by: [id number] Sodium Chloride (Nss 1000ml) 1,000 mls @ 999 mls/hr IV .Q1H1M ONE Stop: 01/19/22 01:31 Last Infusion: 01/19/22 01:39 Dose: 0 mls/hr Documented by: [id number] Admin: 01/19/22 00:50 Dose: 999 mls/hr Documented by: [id number] Sodium Chloride (Nss 1000ml) 1,000 mls @ 999 mls/hr IV .Q1H1M ONE Stop: 01/19/22 02:36 Last Infusion: 01/19/22 02:42 Dose: 0 mls/hr Documented by: [id number] Admin: 01/19/22 02:13 Dose: 999 mls/hr Documented by: [id number] Ioversol (Optiray 320 125ml) 120 ml IV ONCE ONE Stop: 01/19/22 01:59 Last Admin: 01/19/22 01:54 Dose: 120 ml Documented by: [id number] Methylprednisolone (Methylprednisolone 125 Mg/2 Ml Vial) 125 mg IV NOW STA Stop: 01/19/22 00:31 Last Admin: 01/19/22 00:50 Dose: 125 mg Documented by: [id number] Morphine Sulfate (Morphine Sulfate 4 Mg/Ml 1 Ml Carp\\Vial) 4 mg IV NOW STA Stop: 01/19/22 00:31 Last Admin: 01/19/22 00:50 Dose: 4 mg Documented by: [id number] Morphine Sulfate (Morphine Sulfate 4 Mg/Ml 1 Ml Carp\\Vial) 4 mg IV NOW STA Stop: 01/19/22 01:33 Last Admin: 01/19/22 01:35 Dose: 4 mg Documented by: [id number] Ondansetron HCl (Ondansetron Inj 2 Mg/Ml 2 Ml Vial) 4 mg IV NOW STA Stop: 01/19/22 00:31 Last Admin: 01/19/22 00:50 Dose: 4 mg Documented by: [id number] Discharge Plan Visit Data Chief Complaint: Flank Pain Stated Complaint: Flank Pain ED Provider: Michael Smith Discharge Problem: Acute cholecystitis Forms Stand Alone Forms: [facility] Prescriptions Prescriptions: No Action (DME) blood-glucose meter [OneTouch Verio Meter] Misc See Rx Instructions .ROUTE .MEDSUPPLY Qty: 1 RF: 0 (DME) OneTouch Verio test strips Strip See Rx Instructions .ROUTE .MEDSUPPLY Qty: 400 RF: 1 (DME) lancets [OneTouch Delica Lancets] 33 gauge misc See Rx Instructions .ROUTE .MEDSUPPLY Qty: 400 RF: 1 epinephrine 0.3 mg/0.3 mL auto-injector 0.3 mg IM UD Qty: 1 RF: 2 (DME) Blood Pressure Cuff Misc See Rx Instructions .ROUTE .MEDSUPPLY Qty: 1 RF: 0 (DME) FreeStyle Test Strip See Rx Instructions .ROUTE .MEDSUPPLY Qty: 100 RF: 0 diclofenac sodium 1 % gel 2 g topical QID Qty: 100 RF: 2 lisinopril 20 mg tablet 20 mg PO QAM Qty: 90 RF: 1 (DME) TENS 502 Device See Rx Instructions .Route Qty: 1 RF: 0 pantoprazole 40 mg tablet,delayed release (DR/EC) 40 mg PO QAM Qty: 90 RF: 1 Eliquis 5 mg tablet 5 mg PO BID Qty: 180 RF: 1 insulin aspart U-100 [Novolog Flexpen U-100 Insulin] 100 unit/mL (3 mL) insulin pen 12 unit SQ AC Qty: 45 RF: 1 Lantus Solostar U-100 Insulin 100 unit/mL (3 mL) insulin pen 50 unit subcut BID Qty: 45 RF: 1 (DME) pen needle, diabetic [BD Ultra-Fine Micro Pen Needle] 32 gauge x 1/4" needle See Rx Instructions .Route Qty: 300 RF: 1 duloxetine 60 mg capsule,delayed release(DR/EC) 60 mg PO QAM Qty: 30 RF: 11 baclofen 10 mg tablet 10 mg PO TID Qty: 270 RF: 1 duloxetine 20 mg capsule,delayed release(DR/EC) 20 mg PO QAM Qty: 30 RF: 11 clonazepam 2 mg tablet 2 mg PO BID 30 Days Qty: 60 RF: 0 methylphenidate HCl [Ritalin] 20 mg tablet 20 mg PO BIDM 30 Days Qty: 60 RF: 0 naloxone 4 mg/actuation spray,non-aerosol 1 sprays intranasal Q2M PRN (Reason: (Drug) Ingestion) RF: 0 Referrals Referrals: PCP,NO [Primary Care Provider] -
[2022-01-19] MEDS ORDERED: methylPREDNISolone 125 MG/2 ML VIAL IV STA (00:30)
[2022-01-19] MEDS ORDERED: diphenhydrAMINE 50 MG/ML VIAL IV STA (00:30)
[2022-01-19] MEDS ORDERED: MoRPHine SULFATE 4 MG/ML 1 ML CARP\\VIAL IV STA ×2 (00:30→01:32)
[2022-01-19] MEDS ORDERED: ONDANSETRON INJ 2 MG/ML 2 ML VIAL IV STA (00:30)
[2022-01-19] MEDS ORDERED: SODIUM CHLORIDE 0.9% 1000ML 1,000 ML IV ONE ×2 (00:31→01:36)
[2022-01-19 01:12] LABS: Basophils # (auto) 0.01 K/uL (0-0.2); Basophils % (auto) 0.1 %; Hematocrit (blood only) 44.8 % (42-52); Hemoglobin 15.7 g/dL (14.0-18.0); Immature Granulocytes # (auto) 0.01 K/uL (0.00-0.02); Immature Granulocytes % (auto) 0.1 %; Lymphocytes # (auto) 0.74 K/uL (1.2-3.4); Lymphocytes % (auto) 8.6 %; Mean Corpuscular Hemoglobin 30.4 pg (25-34); Mean Corpuscular Volume 86.8 fL (80-100); Monocytes # (auto) 0.38 K/uL (0.11-0.59); Monocytes % (auto) 4.4 %; Neutrophils # (auto) 7.46 K/uL (1.4-6.5); Neutrophils % (auto) 86.8 %; Platelet Count 33 K/uL (130-400); Platelet Estimate SIGNIFIC DECREASED (Normal); RDW Coefficient of Variation 13.6 % (11.5-14.5); RDW Standard Deviation 42.8 fL (36.4-46.3); Red Blood Count 5.16 M/uL (4.7-6.1)
[2022-01-19 01:13] LABS: Anion Gap 21 (3-11); BUN Creatinine Ratio 11.4 (10-20); Blood Urea Nitrogen 25 mg/dl (6-23); Carbon Dioxide 20 mmol/L (21-32); Chloride 99 mmol/L (98-107); Creatinine Clr Calc Pharmacy 55.7 ml/min; Est GFR (African American) 39.5 ml/min; Est GFR (Non-African American) 34.1 ml/min; Glucose 180 mg/dl (70-99(Fasting)); Potassium 4.6 mmol/L (3.5-5.1); Sodium 140 mmol/L (136-145)
[2022-01-19 01:21] LABS: Albumin Globulin Ratio 1.1 (0.9-2); Albumin Level 4.7 gm/dl (3.4-5.0); Alkaline Phosphatase 149 U/L (34-104); Bilirubin,Total 2.7 mg/dl (0.2-1.0); Globulin 4.3 gm/dl (2.5-4.0); Lipase 105 U/L (11-82); Troponin I 0.05 ng/ml (0-0.04)
[2022-01-19 01:26] LABS: Alanine Aminotransferase > 2500 U/L (7-52); Aspartate Aminotransferase 7295 U/L (13-39)
[2022-01-19] MEDS ORDERED: OPTIRAY 320 125ml IV ONE (01:58)
[2022-01-19 03:46] LABS: Appearance Urine Turbid (Clear); Bilirubin Urine Negative (Negative); Blood Urine 3+ (Negative); Color Urine Dark Yellow; Epithelial Cell Urine Auto >30 /lpf (0-5); Glucose Urine UA Negative (Negative); Ketones Urine Trace (Negative); Leukocyte Esterase Urine Negative (Negative); Nitrite Urine Negative (Negative); Protein Urine 3+ (Negative); Specific Gravity Urine > 1.045 (1.000-1.030); Urobilinogen Urine Negative (Negative)
--- NOTE | 2022-01-19 04:08 | Surgery Consultation ---
Date of Consultation January 19, 2022 Assessment & Plan (1) Cholecystitis: Due to the patient's imaging and clinical presentation he is being admitted to the hospital on the hospitalist service. We recommend proceeding as follows: Provide analgesics Provide antiemetics Recommend initiating antibiotics provide IV fluid for hydration Patient has several confounding issues that will need to be addressed prior to surgical intervention is entertained.: He has known chronic kidney disease with superimposed acute kidney injury. This may be on the basis of hydration. Would recommend avoiding nephrotoxins and hydrating with IV fluids above. Serial labs to be followed Patient is noted to have elevated LFTs. This may be to passing microlithiasis, stones, or sludge through the biliary system. Would recommend following serial labs. Would recommend obtaining a GI consult and consideration should be given to performing an MRCP. Patient has a slight elevation of his lipase and does have some clinical evidence of pancreatitis. Would recommend keeping the patient n.p.o. and provi ding hydration with IV fluids and follow serial labs. The patient has a history of pulmonary emboli for which he takes Eliquis. The patient notes that this PE were diagnosed in 2008. Patient's primary care records were reviewed and apparently patient underwent a hypercoagulable evaluation that was inconclusive. Did discuss with the medical service if Eliquis can be held prior to surgery. It would be preferable to have the patient off Eliquis for several days before any surgery is performed. The patient is noted to have thrombocytopenia. Because of this is on clear at this time but review of records show that he has never had platelet count this low before. His current platelet count this would need to be addressed prior to any surgical intervention. Patient is noted to have an elevated troponin. Will await evaluation by medicine to determine if further cardiac evaluation is required. Additional recommendations be forthcoming as his clinical course unfolds. Supervising Physician Co-Signing Physician Notes 51-year-old male admitted with right flank pain and elevated liver enzymes. He does have a history of PEs in the past and is on anticoagulation. Pain has been going on for several weeks but is been getting worse. He also noted some blood in his urine. On exam he is afebrile with mild tachycardia. He appears in no distress. His abdomen is soft, mildly tender in the right upper quadrant and flank. Labs with normal WBC, platelet count 33, INR 2.3, creatinine 2.2, lactate 10.8, bilirubin 2.5, direct bilirubin 1.4, AST greater than 10,000, ALT greater than 2500, ammonia 436, creatine kinase 1294. Ultrasound with no stones and small amount of sludge with edematous wall along the hepatic surface likely related to liver findings. CT with hepatomegaly and severe hepatic steatosis. Given his symptoms, laboratory findings, and imaging studies, this is unlikely to be related to his gallbladder. An MRCP may give us more information. I believe this is a primary hepatic problem that may be viral, drug-related, or autoimmune. He denies much alcohol use. Recommend GI consultation. Given his elevated INR and low platelets, we would not entertain surgery unless his INR was less than 1.5 and his platelets were above 50,000. Surgery will follow peripherally. History of Present Illness Reason for Consultation: Cholecystitis History of Present Illness This is a 51-year-old male who presented to the [facility] emergency department secondary to abdominal pain. Patient notes that the pain has been present for approximately 3 days and first became severe after eating a meal. He notes the pain is in the epigastric area as well as the right upper quadrant. Patient notes over the past several weeks he does note some vague right upper quadrant abdominal pain after eating but became markedly worse 3 days ago prompting his visit to the emergency department. He denies any fevers, shakes, chills. He notes that the pain is described as an ache and bloating. He has associated nausea vomiting. He notes the pain does not radiate. He notes that he has never had prior abdominal surgery. He does add that he has a history of pulmonary emboli first diagnosed in 2008 for which he takes Eliquis. In the emergency department the patient had labs and imaging which I independently reviewed. He did undergo a gallbladder ultrasound that showed gallbladder sludge with mild thickening of the wall the gallbladder with pericholecystic fluid. He had a CT scan of the chest that showed no evidence of pulmonary emboli. CT scan of the abdomen did not identify any acute cholecystitis. Labs include a CBC her white blood cell count, hemoglobin, hematocrit, were within the normal range. His platelet count was low at 33,000. Chemistry profile showed sodium and potassium were both normal. His BUN and creatinine were 25 and 2.1. This creatinine level was noted to be above his baseline which usually runs between 1.4 and 1.8. Patient was noted to have elevation of his LFTs with a total bilirubin of 2.7. His transaminases were also elevated with an AST of 7295 and an ALT of greater than 2500. His alkaline phosphatase was elevated at 149. His lipase had a slight elevation at 105. Patient did have a slight elevation of his troponin at 0.05. A Covid test has been ordered and is pending. An EKG showed sinus tachycardia with nonspecific T wave abnormalities but there is no evidence of ST segment elevation. At the time of my interview he was resting comfortably in bed in no distress Allergies Allergy/AdvReac Type Severity Reaction Status Date / Time iodine Allergy Severe THROAT Verified 12/13/21 15:54 SWELLING shellfish derived Allergy Severe THROAT Verified 12/13/21 15:54 SWELLING acetaminophen Allergy Intermediate Chest Pain Verified 12/13/21 15:54 Iodinated Contrast Media Allergy Intermediate swelling Verified 12/13/21 15:54 hydrocodone AdvReac Intermediate GI ISSUES Verified 12/13/21 15:54 Plasma, Human Allergy Severe ANAPHYLAXIS Uncoded 12/13/21 15:54 Home Medications Medication Instructions Recorded Confirmed Type naloxone 4 mg/actuation nasal spray 1 sprays INTRANASAL Q2M PRN ea 07/27/19 12/13/21 History blood-glucose meter (OneTouch #1 ea 04/27/20 12/13/21 Rx Verio Meter) blood sugar diagnostic (OneTouch #400 ea 07/14/20 12/13/21 Rx Verio test strips) lancets 33 gauge (OneTouch Delica #400 ea 07/14/20 12/13/21 Rx Lancets) epinephrine 0.3 mg/0.3 mL 0.3 mg IM UD #1 ea 07/26/20 01/19/22 Rx injection, auto-injector miscellaneous medical supply #1 ea 08/21/20 12/13/21 Rx (Blood Pressure Cuff) blood sugar diagnostic (FreeStyle #100 ea 10/16/20 12/13/21 Rx Test) diclofenac sodium 1 % topical gel 2 g TOPICAL QID #100 g 03/30/21 01/19/22 Rx lisinopril 20 mg tablet 20 mg PO QAM #90 tab 06/26/21 01/19/22 Rx TENS units (TENS 502) #1 ea 08/06/21 12/13/21 Rx pantoprazole 40 mg tablet,delayed 40 mg PO QAM #90 tab 08/20/21 01/19/22 Rx release apixaban 5 mg tablet (Eliquis) 5 mg PO BID #180 tab 09/14/21 01/19/22 Rx insulin aspart U-100 100 unit/mL 12 unit SQ AC #45 ml 09/19/21 01/19/22 Rx (3 mL) subcutaneous pen (Novolog Flexpen U-100 Insulin aspart) insulin glargine 100 unit/mL (3 50 unit SUBCUT BID #45 ml 09/19/21 01/19/22 Rx mL) subcutaneous pen (Lantus Solostar U-100 Insulin) pen needle, diabetic 32 gauge x #300 ea 09/19/21 12/13/21 Rx 1/4" (BD Ultra-Fine Micro Pen Needle) duloxetine 60 mg capsule,delayed 60 mg PO QAM #30 cap 10/22/21 01/19/22 Rx release baclofen 10 mg tablet 10 mg PO TID #270 tab 11/14/21 01/19/22 Rx duloxetine 20 mg capsule,delayed 20 mg PO QAM #30 cap 01/07/22 Rx release clonazepam 2 mg tablet 2 mg PO BID 30 Days #60 tab 01/11/22 01/19/22 Rx methylphenidate HCl 20 mg tablet 20 mg PO BIDM 30 Days #60 tab 01/11/22 01/19/22 Rx (Ritalin) Patient History Medical History (Updated 01/19/22 @ 05:31 by Crissy Stanton DO) Abnormal EKG 2017 > no further follow up needed per patient Anxiety Blood clotting disorder unsure of specific details > Dr. Azevedo PCP Chest pain CKD (chronic kidney disease), stage III pt denies > says kidneys are normal Depression DM w/o complication type II, uncontrolled Esophagitis Gastrointestinal hemorrhage 2016 > resolved Hemoptysis resolved History of pleural effusion 2013> [facility] Hypertension Hypertriglyceridemia Insomnia Lesion of liver just watching > Dr. Azevedo Myalgia and myositis Obesity Precordial chest pain resolved Pulmonary embolism 4 total> last one 2016> Eliquis > came to [facility] Seafood allergy Transaminitis Uncontrolled type 2 diabetes mellitus with insulin therapy Vitamin D deficiency Surgical History History of cardiac cath 2016 due to chest pain> was clear per patient> no stents> [facility] History of colonoscopy History of esophagogastroduodenoscopy (EGD) History of shoulder surgery (~11/2019) left Hx of surgical procedure colorectal for fissure S/P arthroscopy of shoulder 07/23/19 Dr. Cortes Carranza- Left shoulder arthroscopy with superior labrum anterior to posterior repair; Debridement of glenoid labrum; Synovectomy; Subacromial decompression with acromioplasty; Distal clavicle excision with excision of 10 mm of distal clavicle. Family History Mother , s/p brain aneurysm Aneurysm Other Hypertension Denies family history of Ovarian cancer Prostate cancer Myocardial infarction Breast cancer Colorectal cancer Social History Smoking Status: Never smoker Second Hand Exposure: No; Hx Alcohol Use: Yes Hx Substance Use: No Preferred Language: [place] Communication Ability: Effective Visual Impairment: No Limitations Hearing Ability: Normal Cutter Inspector Required: No Beliefs That Will Affect Care: None marital status: Single Current Living Situation: Alone current occupational status: disabled Feels Safe at Home: Yes Dental Care, Regularly: Yes Physical Activity Frequency: Does not Exercise Seatbelt Use: always Sunscreen Use: No Assistive Devices: None Review of Systems Constitutional: no fever and no chills Eyes: no diplopia Ear, Nose, Mouth, Throat: no ear pain Respiratory: no cough and no dyspnea Cardiovascular: no chest pain Gastrointestinal: + abdominal pain, + nausea and + vomiting Genitourinary: no dysuria Musculoskeletal: no back pain Integumentary: no rash Neurologic: no localized weakness Physical Exam Constitutional: WD/WN, vitals as above Eyes: no conjunctival abnormality ENMT: Ears: no hearing impairment and no external ear abnormality Mouth: no oropharynx abnormality Neck: trachea midline Respiratory: normal respiratory effort; no respiratory distress and no labored breathing Cardiovascular: Rate/Rhythm: regular rate and regular rhythm Gastrointestinal (Abdomen): Ms. nondistended. Bowel sounds are present. The patient had marked tenderness over the right upper quadrant and to a lesser degree the epigastric area with palpation. Musculoskeletal: No calf tenderness Skin: no rashes Neurologic: moves all extremities Psychiatric: A+Ox3, euthymic affect Results & Data ([facility]) Vital Signs (Past 12 Hours) Vital Signs Temp Pulse Pulse Resp BP BP Pulse Ox 01/19/22 03:17 113 H 22 149/87 H 95 01/19/22 02:17 115 H 20 128/97 98 01/19/22 01:10 122 H 22 126/59 L 97 01/19/22 00:22 37 C 127 H 22 127/91 97 PG Care Time/CCT Total # of Minutes Spent Total Time Spent with Patient: Total time spent is greater than 50% in coordination of care (as documented) at patient's floor/unit and/or counseling patient: Coding Level of Care Code 23958 Inpt Consult Level 5 Diagnoses Cholecystitis K81.9
[2022-01-19] MEDS ORDERED: HYDROmorphone INJ 1 MG/ML SYRINGE IV STA (04:29)
[2022-01-19 05:05] LABS: Bacteria Urine Automated 3+ (Negative)
[2022-01-19 05:06] LABS: Mucus Urine Present (None Prsent)
--- NOTE | 2022-01-19 05:27 | History & Physical Report ---
Date of Service January 19, 2022 Assessment & Plan (1) Acute cholecystitis: Plan: 51yo male with history of DM, HTN, CKD, remote PE on lifelong anticoagulation with Apixaban presenting with 3 days of upper abdominal pain, nausea, poor oral intake. Workup significant for abnormal LFTs in mixed - obstructive/hepatocellular pattern with marked elevation of AST/ALT of 7295 and >2500, respectively. RUQUS suggestive of acute cholecystitis. Gallbladder sludge present but no mention of stones or CBD dilatation. Patient does not drink EtOH. He is allergic to Tylenol and does not take any at all. No history of blood transfusion. He does report taking an herbal supplement that he bought online one month ago but is now sure of the name. Ddx to include: hepatic ischemia, toxin/acetaminophen overdose, acute hepatitis, acute cholecystitis -Admit to PCU -Keep NPO except ice chips/sips -Dilaudid as needed for pain with rescue Narcan available -Zofran as needed for nausea -Zosyn 3.375gm IV q 6 hours -Appreciate General Surgery assessment -Will consult GI -MRCP ordered - elevated Tbili, AP as well as Lipase (2) Abnormal liver function test: Plan: Patient with abnormal liver studies in mixed obstructive/hepatocellular pattern with FH=062, Tbili=2.7, JGA=8526, ALT >2500. Also with thrombocytopenia with platelets=33 which is a new finding. Albumin is normal at 4.7. Na normal as well. -Check INR -Check Lactate -Check ammonia level -Check Ferritin, Acetaminophen level, acute hepatitis panel -Check LFTs -Check Liver doppler to assess for PVT - patient with history of prior VTE - uncertain if he vomited his Apixaban over the last 3 days -GI consultation appreciated -Avoid hepatotoxic medications (3) Acute kidney injury superimposed on CKD: Plan: BUN=25, Cr=2.19 which is increased from last measurement of 26 and 1.85, respectively, on 08/30/21. Suspect multifactorial - dehydration, decreased oral intake, medication effects -Check CK total -Check urine Na and Cr for FeNA -IVF with LR at 125mL/hr x 2 liters -Avoid nephrotoxic agents -Renal dosing where needed for CrCl of 55.7, GFR of 39.5 (4) Thrombocytopenia: Plan: Platelets = 33. No active bleed, epistaxis or petechiae. Ddx to include liver disease, sepsis, medication effects -Check Lyme and Anaplasmosis smear - abnormal LFTs + thrombocytopenia + history of night sweats -Checking INR as above -Continue to monitor -Will avoid tx with heparin or lovenox for now (5) Elevated troponin: Plan: Patient with mild elevation in troponin. Does endorse some vague, non- exertional chest discomfort. -Trend troponin -Telemetry monitoring -Check 2D echo -Consider Cardiology consultation (6) Pulmonary embolism: Plan: Remote history of PE. Patient is presently on anticoagulation with Apixaban 5mg BID. He states he may have vomited his last couple of doses, unsure. -Continue Apixaban 5mg po BID for now. Will need to be addressed pending surgic al needs, platelet count, etc -Ordered for today at 21:00 in event of possible ERCP or other GI intervention (7) Hypertension: Plan: Blood pressure elevated -Pain control as above -Hold Lisinopril in setting of BRIDGETTE (8) DM type 2 (diabetes mellitus, type 2): Plan: Patient takes his insulin as needed. Blood sugar =180. WEll controlled - last AIC on 12/12/20 = 6.5 -Lantus 10u BID -ISS -Goal blood sugar 100 - 140 (9) Depression: Plan: Chronic. -Continue Duloxetine 60mg po daily Patient with diagnosis of ADHD -Continue Methylphenidate 20mg PO BID (10) Anxiety: Plan: Chronic. Controlled with medications -Continue Duloxetine -Continue Clonazepam BID. Cautious with opioid use in acute pain (11) Chronic pain: Plan: -Continue Baclofen -Continue Diclofenac Plan: F/E/N - LR at 125mL/hr, monitor electrolytes, NPO Ppx - On Apixaban Code - Full Dispo -Admit to PCU History of Present Illness Chief Complaint: Abdominal pain Primary Care Provider: NO PCP Jordan Delaney is a pleasant 51yo male presenting with abdominal pain. Patient states he has had 3 days of persistent nausea with non-bloody/non-bilious vomiting, poor appetite with decreased po intake and diffuse abdominal pain. Abdominal pain originally started as bandlike discomfort across the upper abdomen with radiation into the back, 8-9/10 in severity, worse with meals. Also with abdominal bloating. Now with diffuse abdominal pain, still worst in upper abdomen and RUQ. He reports mild, intermittent right sided chest discomfort. Dry cough. Chills. Night sweats for which he was seen by his PCP. He noted his urine to be orange in color today which prompted him to come to the ER. He denies URIAS, SOB, diarrhea, dysuria. No additional complaints at this time. In the ER patient afebrile, tachycardic, hypertensive. He is in acute pain during my encounter with diaphoresis. Dilaudid x 1mg ordered Patient evaluated by General Surgery ER Course: Morphine 4mg IV x 2, Zofran 4mg IV, NSS x 2L, Dilaudid 1mg Solumedrol 125mg x 1, Benadryl 25mg IV, Contrast dye Allergies Allergy/AdvReac Type Severity Reaction Status Date / Time iodine Allergy Severe THROAT Verified 12/13/21 15:54 SWELLING shellfish derived Allergy Severe THROAT Verified 12/13/21 15:54 SWELLING acetaminophen Allergy Intermediate Chest Pain Verified 12/13/21 15:54 Iodinated Contrast Media Allergy Intermediate swelling Verified 12/13/21 15:54 hydrocodone AdvReac Intermediate GI ISSUES Verified 12/13/21 15:54 Plasma, Human Allergy Severe ANAPHYLAXIS Uncoded 12/13/21 15:54 Home Medications Medication Instructions Recorded Confirmed Type naloxone 4 mg/actuation nasal spray 1 sprays INTRANASAL Q2M PRN ea 07/27/19 12/13/21 History blood-glucose meter (OneTouch #1 ea 04/27/20 12/13/21 Rx Verio Meter) blood sugar diagnostic (OneTouch #400 ea 07/14/20 12/13/21 Rx Verio test strips) lancets 33 gauge (OneTouch Delica #400 ea 07/14/20 12/13/21 Rx Lancets) epinephrine 0.3 mg/0.3 mL 0.3 mg IM UD #1 ea 07/26/20 01/19/22 Rx injection, auto-injector miscellaneous medical supply #1 ea 08/21/20 12/13/21 Rx (Blood Pressure Cuff) blood sugar diagnostic (FreeStyle #100 ea 10/16/20 12/13/21 Rx Test) diclofenac sodium 1 % topical gel 2 g TOPICAL QID #100 g 03/30/21 01/19/22 Rx lisinopril 20 mg tablet 20 mg PO QAM #90 tab 06/26/21 01/19/22 Rx TENS units (TENS 502) #1 ea 08/06/21 12/13/21 Rx pantoprazole 40 mg tablet,delayed 40 mg PO QAM #90 tab 08/20/21 01/19/22 Rx release apixaban 5 mg tablet (Eliquis) 5 mg PO BID #180 tab 09/14/21 01/19/22 Rx insulin aspart U-100 100 unit/mL 12 unit SQ AC #45 ml 09/19/21 01/19/22 Rx (3 mL) subcutaneous pen (Novolog Flexpen U-100 Insulin aspart) insulin glargine 100 unit/mL (3 50 unit SUBCUT BID #45 ml 09/19/21 01/19/22 Rx mL) subcutaneous pen (Lantus Solostar U-100 Insulin) pen needle, diabetic 32 gauge x #300 ea 09/19/21 12/13/21 Rx 1/4" (BD Ultra-Fine Micro Pen Needle) duloxetine 60 mg capsule,delayed 60 mg PO QAM #30 cap 10/22/21 01/19/22 Rx release baclofen 10 mg tablet 10 mg PO TID #270 tab 11/14/21 01/19/22 Rx duloxetine 20 mg capsule,delayed 20 mg PO QAM #30 cap 01/07/22 Rx release clonazepam 2 mg tablet 2 mg PO BID 30 Days #60 tab 01/11/22 01/19/22 Rx methylphenidate HCl 20 mg tablet 20 mg PO BIDM 30 Days #60 tab 01/11/22 01/19/22 Rx (Ritalin) Past Med/Surg History Medical History (Updated 01/19/22 @ 05:31 by Crissy Stanton DO) Abnormal EKG 2017 > no further follow up needed per patient Anxiety Blood clotting disorder unsure of specific details > Dr. Azevedo PCP Chest pain CKD (chronic kidney disease), stage III pt denies > says kidneys are normal Depression DM w/o complication type II, uncontrolled Esophagitis Gastrointestinal hemorrhage 2016 > resolved Hemoptysis resolved History of pleural effusion 2013> [facility] Hypertension Hypertriglyceridemia Insomnia Lesion of liver just watching > Dr. Azevedo Myalgia and myositis Obesity Precordial chest pain resolved Pulmonary embolism 4 total> last one 2016> Eliquis > came to [facility] Seafood allergy Transaminitis Uncontrolled type 2 diabetes mellitus with insulin therapy Vitamin D deficiency Surgical History History of cardiac cath 2016 due to chest pain> was clear per patient> no stents> [facility] History of colonoscopy History of esophagogastroduodenoscopy (EGD) History of shoulder surgery (~11/2019) left Hx of surgical procedure colorectal for fissure S/P arthroscopy of shoulder 07/23/19 Dr. Cortes Carranza- Left shoulder arthroscopy with superior labrum anterior to posterior repair; Debridement of glenoid labrum; Synovectomy; Subacromial decompression with acromioplasty; Distal clavicle excision with excision of 10 mm of distal clavicle. Family History Mother , s/p brain aneurysm Aneurysm Other Hypertension Denies family history of Ovarian cancer Prostate cancer Myocardial infarction Breast cancer Colorectal cancer Social History Smoking Status: Never smoker Second Hand Exposure: No; Hx Alcohol Use: No Hx Substance Use: No Preferred Language: [place] Communication Ability: Effective Visual Impairment: No Limitations Hearing Ability: Normal Research Engineer Required: No Beliefs That Will Affect Care: None marital status: Single Current Living Situation: Alone current occupational status: disabled Feels Safe at Home: Yes Dental Care, Regularly: Yes Physical Activity Frequency: Does not Exercise Seatbelt Use: always Sunscreen Use: No Assistive Devices: None Review of Systems Review of Systems: All systems reviewed & are unremarkable except as noted in HPI & below Physical Exam Physical Exam: General: patient appears uncomfortable, restless, mildly diaphoretic, NAD, non-toxic in appearance, AA&O x 4 Skin: warm, dry, intact, no rashes or lesions, tattoos present - professionally done HEENT: NC/AT, PERRL, EOMI, anicteric sclera, conjunctiva without injection, external ear normal to inspection and nontender, nares patent, moist mucus membranes, dentition intact, no oropharyngeal lesions, neck supple, trachea midline, no LAD, no thyromegaly, no JVD Heart: +S1/S2, regular, tachycardic, no m/r/g Lungs: equal air entry bilaterally, no rales/rhonchi/wheezes Abd: Diminished bowel sounds, soft, tenderness in RUQ, upper abdomen and lower abdomen with voluntary guarding, +Blair's sign, no rebound, no peritoneal signs Ext: warm, 2+ pulses in UE/LE bilaterally, no clubbing/cyanosis or edema Neuro: nonfocal, patient AA&O x 4, speech intact, no facial droop, moving all extremities on command with equal strength 5/5 Results & Data Results & Data ([facility]) Vital Signs (Past 12 Hours) Vital Signs Temp Pulse Pulse Resp BP BP Pulse Ox 01/19/22 04:55 118 H 20 135/87 95 01/19/22 03:17 113 H 22 149/87 H 95 01/19/22 02:17 115 H 20 128/97 98 01/19/22 01:10 122 H 22 126/59 L 97 01/19/22 00:22 37 C 127 H 22 127/91 97 Laboratory Results Laboratory Results WBC 8.60 K/uL (4.8-10.8) 01/19/22 00:04 RBC 5.16 M/uL (4.7-6.1) 01/19/22 00:04 Hgb 15.7 g/dL (14.0-18.0) 01/19/22 00:04 Hct 44.8 % (42-52) 01/19/22 00:04 MCV 86.8 fL (80-100) 01/19/22 00:04 MCH 30.4 pg (25-34) 01/19/22 00:04 MCHC 35.0 g/dL (32-36) 01/19/22 00:04 RDW Std Deviation 42.8 fL (36.4-46.3) 01/19/22 00:04 RDW Coeff of Lillie 13.6 % (11.5-14.5) 01/19/22 00:04 Plt Count 33 K/uL (130-400) L 01/19/22 00:04 Immature Gran % (Auto) 0.1 % 01/19/22 00:04 Neut % (Auto) 86.8 % 01/19/22 00:04 Lymph % (Auto) 8.6 % 01/19/22 00:04 Hale % (Auto) 4.4 % 01/19/22 00:04 Eos % (Auto) 0.0 % 01/19/22 00:04 Baso % (Auto) 0.1 % 01/19/22 00:04 Neut # (Auto) 7.46 K/uL (1.4-6.5) H 01/19/22 00:04 Lymph # (Auto) 0.74 K/uL (1.2-3.4) L 01/19/22 00:04 Hale # (Auto) 0.38 K/uL (0.11-0.59) 01/19/22 00:04 Eos # (Auto) 0.00 K/uL (0-0.5) 01/19/22 00:04 Baso # (Auto) 0.01 K/uL (0-0.2) 01/19/22 00:04 Immature Gran # (Auto) 0.01 K/uL (0.00-0.02) 01/19/22 00:04 Platelet Estimate SIGNIFIC DECREASED (Normal) 01/19/22 00:04 Sodium 140 mmol/L (136-145) 01/19/22 00:04 Potassium 4.6 mmol/L (3.5-5.1) 01/19/22 00:04 Chloride 99 mmol/L (98-107) 01/19/22 00:04 Carbon Dioxide 20 mmol/L (21-32) L 01/19/22 00:04 Anion Gap 21 (3-11) H 01/19/22 00:04 BUN 25 mg/dl (6-23) H 01/19/22 00:04 Creatinine 2.19 mg/dl (0.6-1.4) H 01/19/22 00:04 Est Cr Clr Drug Dosing 55.7 ml/min 01/19/22 00:04 Est GFR ( Amer) 39.5 ml/min 01/19/22 00:04 Est GFR (Non-Af Amer) 34.1 ml/min 01/19/22 00:04 BUN/Creatinine Ratio 11.4 (10-20) 01/19/22 00:04 Glucose 180 mg/dl (70-99(Fasting)) H 01/19/22 00:04 Calcium 10.0 mg/dl (8.5-10.1) 01/19/22 00:04 Total Bilirubin 2.7 mg/dl (0.2-1.0) H 01/19/22 00:04 AST 7295 U/L (13-39) H 01/19/22 00:04 ALT > 2500 U/L (7-52) H 01/19/22 00:04 Alkaline Phosphatase 149 U/L (34-104) H 01/19/22 00:04 Troponin I 0.05 ng/ml (0-0.04) H* 01/19/22 00:04 Total Protein 9.0 gm/dl (6.0-8.3) H 01/19/22 00:04 Albumin 4.7 gm/dl (3.4-5.0) 01/19/22 00:04 Globulin 4.3 gm/dl (2.5-4.0) H 01/19/22 00:04 Albumin/Globulin Ratio 1.1 (0.9-2) 01/19/22 00:04 Lipase 105 U/L (11-82) H 01/19/22 00:04 Urine Color Dark Yellow 01/19/22 03:30 Urine Appearance Turbid (Clear) A 01/19/22 03:30 Urine pH 5.0 (4.5-7.5) 01/19/22 03:30 Ur Specific Cedar > 1.045 (1.000-1.030) H 01/19/22 03:30 Urine Protein 3+ (Negative) H 01/19/22 03:30 Urine Glucose (UA) Negative (Negative) 01/19/22 03:30 Urine Ketones Trace (Negative) H 01/19/22 03:30 Urine Blood 3+ (Negative) H 01/19/22 03:30 Urine Nitrite Negative (Negative) 01/19/22 03:30 Urine Bilirubin Negative (Negative) 01/19/22 03:30 Urine Urobilinogen Negative (Negative) 01/19/22 03:30 Ur Leukocyte Esterase Negative (Negative) 01/19/22 03:30 Urine WBC (Auto) 10-30 /hpf (0-5) H 01/19/22 03:30 Urine RBC (Auto) 5-10 /hpf (0-4) H 01/19/22 03:30 U Hyaline Cast (Auto) 1-5 /lpf (0-5) 01/19/22 03:30 U Epithel Cells (Auto) >30 /lpf (0-5) H 01/19/22 03:30 Urine Bacteria (Auto) 3+ (Negative) H 01/19/22 03:30 Ur Renal Epithelial Cell Not Reportable 01/19/22 03:30 Granular Casts 5-10 /lpf (0) H 01/19/22 03:30 Urine Mucus Present (None Prsent) A 01/19/22 03:30 Ethyl Alcohol mg/dL < 10.0 mg/dl (<10.0) 01/19/22 03:30 Diagnostic Findings Gallbladder US - Per STAT rad - Hepatomegaly and fatty infiltration of the liver. Gallbladder sludge. Mild thickening of the wall of the gallbladder with pericholecystic fluid is concerning for acute cholecystitis. No other acute findings. CTA Chest - Per STAT rad - No PE. No aortic aneurysm or dissection. The heart size is normal. Lungs are clear. No pathologically enlarged lymph nodes. No fracture. CT A/P with Contrast: Per STAT rad - Fatty infiltration of the liver. The remaining solid organs are within normal limits. No bowel obstruction. Normal appendix. Diverticulosis. Thickening of th eurinary bladder wall is concerning for cystitis. There is a small amount of fluid in the pelvis which is nonspecific. No fractures ECG Additional Comments: EKG wtih ST at 131, VW=655, QRS=70, HGy=574, nonspecific T wave abnormality Code Status & VTE Plan VTE Prophylaxis Plan VTE Prophylaxis will be ordered: Yes PG Care Time/CCT Total # of Minutes Spent Total Time Spent with Patient: Total time spent is greater than 50% in coordination of care (as documented) at patient's floor/unit and/or counseling patient: Coding Level of Care Code 82712 Initial Inpt Care Lvl 3 Diagnoses Hypertension I10 Depression F32.89 Depression Type: other depression DM type 2 (diabetes mellitus, type 2) E11.9 Anxiety F41.9 Chronic pain G89.29 Pulmonary embolism I26.99 Acute cholecystitis K81.0 Acute kidney injury superimposed on CKD N17.9; N18.9 Elevated troponin R77.8 Thrombocytopenia D69.6 Abnormal liver function test R79.89 (1) Depression Depression Type: other depression Qualified Code(s): F32.89 - Other specified depressive episodes
[2022-01-19] MEDS ORDERED: NALOXONE HCL 0.4 MG/1 ML VIAL/CARP IV PRN (06:40)
[2022-01-19] MEDS ORDERED: LACTATED RINGER'S 1,000 ML IV SCH (06:40)
[2022-01-19] MEDS ORDERED: GLUCOSE 40% GEL 15 GM TUBE PO PRN (06:40)
[2022-01-19] MEDS ORDERED: GLUCAGON FOR INJ 1 MG VIAL SQ PRN (06:40)
[2022-01-19] MEDS ORDERED: HYDROmorphone INJ 0.5 MG/0.5 ML SYR IV PRN (06:40)
[2022-01-19] MEDS ORDERED: GLUCOSE 10 TABS/TUBE PO PRN (06:40)
[2022-01-19] MEDS ORDERED: POLYETHYLENE (MIRALAX) 17 GM PACK PO PRN (06:40)
[2022-01-19] MEDS ORDERED: CARBOHYDRATES FOR HYPOGLYCEMIA PO PRN (06:40)
[2022-01-19] MEDS ORDERED: DEXTROSE 50% 50 ML SYRINGE IV PRN (06:40)
[2022-01-19] MEDS ORDERED: PIPERACILL/TAZOBAC CONSULT ACTIVE PRN (06:40)
[2022-01-19] MEDS ORDERED: DOCUSATE SODIUM 100 MG CAP PO PRN (06:40)
[2022-01-19] MEDS ORDERED: bisacodyL 10 MG SUPP PR PRN (06:40)
--- NOTE | 2022-01-19 06:56 | Ultrasound Report ---
ABDOMINAL ULTRASOUND, RIGHT UPPER QUADRANT HISTORY: Transaminitis, elevated bilirubin. COMPARISON: Abdomen and pelvis CT 01/19/2022. FINDINGS: Pancreas: The pancreatic head and tail are obscured by overlying bowel gas. The remaining portions of the pancreas are within normal limits. Liver: The liver is echogenic consistent with fatty change. 21 cm in length. Gallbladder: Edematous gallbladder wall measuring up to 6 mm along the hepatic service. Trace sludge within the gallbladder. Negative sonographic Blair's sign. No gallstones. CBD: 4 mm. Right kidney: No hydronephrosis. IMPRESSION: 1. Hepatomegaly demonstrating fatty change. 2. Edematous gallbladder wall along the hepatic surface. This is likely secondary to the underlying h epatic disease. Acute cholecystitis is considered less likely but not entirely excluded. 3. Trace gallbladder sludge. ACT 112: Negative or not required by law. Electronically signed by: Pete Lawson M.D. 01/19/2022 6:54 AM
[2022-01-19] MEDS ORDERED: PIPERACILLIN/TAZOBACTAM 3.375 GM in DEXTROSE 5% 100 ML IV ONE (07:15)
[2022-01-19] MEDS: ONDANSETRON INJ 2 MG/ML 2 ML VIAL IV PRN ×2 (07:25→14:19)
[2022-01-19] MEDS: HYDROmorphone INJ 0.5 MG/0.5 ML SYR IV PRN ×3 (07:26→14:09)
[2022-01-19 07:30] LABS: INR 2.3 (0.9-1.1); Prothrombin Time 23.9 Seconds (9.0-12.0)
[2022-01-19 07:55] LABS: Troponin I 0.08 ng/ml (0-0.04)
--- NOTE | 2022-01-19 08:05 | CT Scan Report ---
CHEST CTA for PULMONARY ARTERIES CT DOSE: HISTORY: Right-sided chest pain. Assess for pulmonary embolus. TECHNIQUE: Multiaxial CT images of the chest were performed following the intravenous administration of contrast to evaluate the pulmonary arteries. Maximal intensity projection images were also obtaine d. A dose lowering technique was utilized adhering to the principles of ALARA. COMPARISON STUDY: Chest CTA 08/11/2020. FINDINGS: Mild respiratory motion artifact. There is a normal caliber thoracic aorta with no evidence for dissection. There is no evidence for pulmonary embolus. No pleural effusions. No pneumothorax. N o mediastinal or hilar lymphadenopathy. The central airways are patent. The lungs are clear. IMPRESSION: No evidence for pulmonary embolus. ACT 112: Negative or not required by law. Electronically signed by: Pete Lawson M.D. 01/19/2022 8:02 AM
[2022-01-19 08:09] LABS: Lyme Ab IgG w/WB Rflx Negative (Negative); Lyme Ab IgM w/WB Rflx Negative (Negative)
--- NOTE | 2022-01-19 08:09 | CT Scan Report ---
ABDOMEN AND PELVIS CT WITH IV CONTRAST CT DOSE: 2017.51 mGy.cm HISTORY: Right flank pain. Upper ABD pain, N/V TECHNIQUE: Multiaxial CT images of the abdomen and pelvis were performed following the use of intrave nous contrast. A dose lowering technique was utilized adhering to the principles of ALARA. COMPARISON STUDY: Abdomen and pelvis CT 01/28/2019. FINDINGS: The lung bases are clear. No pneumoperitoneum. No pneumatosis. No fractures within the visu alized osseous structures. Severe hepatic steatosis. The main portal vein is patent. Trace pericholec ystic fluid along the hepatic surface. No gallbladder wall thickening. The spleen, adrenal glands, pa ncreas, and kidneys are unremarkable. No hydronephrosis. Moderate bladder wall thickening. This could be due to underdistention. Trace ascites is noted. Normal caliber abdominal aorta. No retroperitonea l lymphadenopathy. No bowel wall thickening or obstruction. Normal appendix. Colonic diverticulosis. No evidence for acute diverticulitis. IMPRESSION: 1. Severe hepatic steatosis. 2. Trace ascites. 3. No bowel wall thickening or obstruction. 4. Normal appendix. 5. Colonic diverticulosis. No evidence for acute diverticulitis. 6. Bladder wall thickening. This is likely due to underdistention. Recommend correlation with urinaly sis to exclude a cystitis. ACT 112: Negative or not required by law. Electronically signed by: Pete Lawson M.D. 01/19/2022 8:07 AM
[2022-01-19] MEDS: INSULIN ASPART PER UNIT SC SCH ×3 (08:20→17:32)
[2022-01-19] MEDS: BACLOFEN 10 MG TAB PO SCH ×2 (08:37→14:15)
[2022-01-19] MEDS: METHYLPHENIDATE HCL 10 MG TABLET PO SCH ×2 (08:37→16:42)
[2022-01-19] MEDS: DICLOFENAC SOD 1% GEL 100 GM TUBE EXT SCH ×3 (08:38→16:08)
[2022-01-19] MEDS ORDERED: clonazePAM 1 MG TAB PO SCH (09:00)
[2022-01-19] MEDS ORDERED: DULoxetine HCL 60 MG CAP PO SCH (09:00)
[2022-01-19] MEDS ORDERED: PANTOprazole 40 MG TAB PO SCH (09:00)
[2022-01-19] MEDS ORDERED: INSULIN GLARGINE SOLOSTAR 100 UNITS/ML 3 ML PEN SC SCH (09:00)
[2022-01-19 09:04] LABS: Alanine Aminotransferase > 2500 U/L (7-52); Albumin Level 4.3 gm/dl (3.4-5.0); Alkaline Phosphatase 143 U/L (34-104); Aspartate Aminotransferase > 10000 U/L (13-39); Bilirubin Direct 1.4 mg/dl (0-0.2); Bilirubin,Total 2.5 mg/dl (0.2-1.0); Creatine Kinase 1294 U/L (30-223); Magnesium 1.9 mg/dl (1.7-2.4); Total Protein 8.4 gm/dl (6.0-8.3)
--- NOTE | 2022-01-19 09:43 | Critical Care Consultation ---
Date of Consultation January 19, 2022 Assessment & Plan (1) Fulminant hepatic failure: Reason Critically Ill: 51-year-old male with fulminant liver failure likely secondary to nutritional supplement use containing acetaminophen PLAN: Neuro: Hyperammonemia -Patient alert oriented and appropriate. Has capacity at this time. Cymbalta 60mg daily Klonopin 2mg bid Baclofen 10mg TID CV: Tachycardia Fluids/Renal: Acute kidney injury High gap metabolic acidosis -likely secondary to lactic acidosis -Normosol at 80 mils per hour - discontinue LR ID: Obtaining blood and fungal cultures -Zosyn every 8 hours GI/Nutrition: Fulminant liver failure -loading with Mucomyst -Duplex of portal veins ordered -MRCP ordered - MELD: 26 Heme: History of venous thromboembolism -Lifelong apixaban DVT prophylaxis: Apixaban 5mg BID Endocrine: ICU hyperglycemia protocol A1C pending Vascular access: Peripherial IVs Code Status: Full Code Disposition: Transfer to [facility] Obtaining Durable healthcare power of commercial litigation attorney for patient to complete as he desires his fiance to be his medical decision-maker should he become incapacitated (2) High anion gap metabolic acidosis: (3) Acute kidney injury superimposed on CKD: Supervising Physician Co-Signing Physician Notes I have personally spent 70 minutes of critical care time in the direct management of this patient. This is a life/limb threatening event. This includes time spent evaluating patient, direct bedside care, chart review, placing orders, interpretation of diagnostic studies, discussion with con sultants, patient, and/or family members regarding treatment decisions, as well as other required patient management activities. This time is exclusive of all separately billable procedures, and teaching time and separate from and in addition to any other critical care service time. 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 Patient had recently been taking a workout supplements from [facility], he was unaware that the supplements contained Tylenol in some form. He had been taking 3 scoops of the supplement daily. Over the last 3 to 4 weeks he has had increasing abdominal pain and nausea along with low back pain. He presented to the emergency room yesterday evening for vomiting poor oral intake and nausea. At that time he was found to have acute hepatitis and advanced imaging demonstrated concerns for acute cholecystitis. He was seen by general surgery and was felt required additional medical work-up and management. Repeat laboratory analysis demonstrated significant worsening in transaminitis, I am concerned for fulminant liver failure. He denies tobacco use, occasional alcohol use last drink being approximately 1 week ago, no daily use no history of abuse or withdrawal symptoms. No history of drug use including IVDA. History of prior blood transfusion after having gastrointestinal bleeding several years ago. Currently he has continued nausea and upper abdominal pain. No shortness of breath, no headaches no dizziness. Patient reports that he is engaged, he has no adult children, his parents have , he expresses desire to have his fiance be his medical power of commercial litigation attorney in event of incapacitation. Allergies Allergy/AdvReac Type Severity Reaction Status Date / Time iodine Allergy Severe THROAT Verified 12/13/21 15:54 SWELLING shellfish derived Allergy Severe THROAT Verified 12/13/21 15:54 SWELLING acetaminophen Allergy Intermediate Chest Pain Verified 12/13/21 15:54 Iodinated Contrast Media Allergy Intermediate swelling Verified 12/13/21 15:54 hydrocodone AdvReac Intermediate GI ISSUES Verified 12/13/21 15:54 Plasma, Human Allergy Severe ANAPHYLAXIS Uncoded 12/13/21 15:54 Home Medications Medication Instructions Recorded Confirmed Type naloxone 4 mg/actuation nasal spray 1 sprays INTRANASAL Q2M PRN ea 07/27/19 12/13/21 History blood-glucose meter (OneTouch #1 ea 04/27/20 12/13/21 Rx Verio Meter) blood sugar diagnostic (OneTouch #400 ea 07/14/20 12/13/21 Rx Verio test strips) lancets 33 gauge (OneTouch Delica #400 ea 07/14/20 12/13/21 Rx Lancets) epinephrine 0.3 mg/0.3 mL 0.3 mg IM UD #1 ea 07/26/20 01/19/22 Rx injection, auto-injector miscellaneous medical supply #1 ea 08/21/20 12/13/21 Rx (Blood Pressure Cuff) blood sugar diagnostic (FreeStyle #100 ea 10/16/20 12/13/21 Rx Test) diclofenac sodium 1 % topical gel 2 g TOPICAL QID #100 g 03/30/21 01/19/22 Rx lisinopril 20 mg tablet 20 mg PO QAM #90 tab 06/26/21 01/19/22 Rx TENS units (TENS 502) #1 ea 08/06/21 12/13/21 Rx pantoprazole 40 mg tablet,delayed 40 mg PO QAM #90 tab 08/20/21 01/19/22 Rx release apixaban 5 mg tablet (Eliquis) 5 mg PO BID #180 tab 09/14/21 01/19/22 Rx insulin aspart U-100 100 unit/mL 12 unit SQ AC #45 ml 09/19/21 01/19/22 Rx (3 mL) subcutaneous pen (Novolog Flexpen U-100 Insulin aspart) insulin glargine 100 unit/mL (3 50 unit SUBCUT BID #45 ml 09/19/21 01/19/22 Rx mL) subcutaneous pen (Lantus Solostar U-100 Insulin) pen needle, diabetic 32 gauge x #300 ea 09/19/21 12/13/21 Rx 1/4" (BD Ultra-Fine Micro Pen Needle) duloxetine 60 mg capsule,delayed 60 mg PO QAM #30 cap 10/22/21 01/19/22 Rx release baclofen 10 mg tablet 10 mg PO TID #270 tab 11/14/21 01/19/22 Rx duloxetine 20 mg capsule,delayed 20 mg PO QAM #30 cap 01/07/22 Rx release clonazepam 2 mg tablet 2 mg PO BID 30 Days #60 tab 01/11/22 01/19/22 Rx methylphenidate HCl 20 mg tablet 20 mg PO BIDM 30 Days #60 tab 01/11/22 01/19/22 Rx (Ritalin) Patient History Medical History Abnormal EKG 2017 > no further follow up needed per patient Anxiety Blood clotting disorder unsure of specific details > Dr. Azevedo PCP Chest pain CKD (chronic kidney disease), stage III pt denies > says kidneys are normal Depression DM w/o complication type II, uncontrolled Esophagitis Gastrointestinal hemorrhage 2016 > resolved Hemoptysis resolved History of pleural effusion 2013> [facility] Hypertension Hypertriglyceridemia Insomnia Lesion of liver just watching > Dr. Azevedo Myalgia and myositis Obesity Precordial chest pain resolved Pulmonary embolism 4 total> last one 2016> Eliquis > came to [facility] Seafood allergy Transaminitis Uncontrolled type 2 diabetes mellitus with insulin therapy Vitamin D deficiency Surgical History History of cardiac cath 2016 due to chest pain> was clear per patient> no stents> [facility] History of colonoscopy History of esophagogastroduodenoscopy (EGD) History of shoulder surgery (~11/2019) left Hx of surgical procedure colorectal for fissure S/P arthroscopy of shoulder 07/23/19 Dr. Cortes Carranza- Left shoulder arthroscopy with superior labrum anterior to posterior repair; Debridement of glenoid labrum; Synovectomy; Subacromial decompression with acromioplasty; Distal clavicle excision with excision of 10 mm of distal clavicle. 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 nontoxic. Skin: Warm, dry, no jaundice, no scleral icterus Head: Atraumatic Ears, nose, mouth and throat: airway patent Cardiovascular: Normal peripheral perfusion, tachycardia Respiratory: no respiratory distress Gastrointestinal: Non distended, tenderness with deep palpation, no guarding no rebound, negative rise of eggs, this is a nonsurgical abdomen Musculoskeletal: No deformity, trace edema in bilateral lower extremities Results & Data Results [facility] ([facility] Vital Signs (Past 12 Hours) Vital Signs Temp Pulse Pulse Resp BP BP Pulse Ox 01/19/22 06:30 37.3 C 115 H 18 143/84 H 94 01/19/22 06:16 118 H 20 125/83 97 01/19/22 05:58 118 H 20 125/83 97 01/19/22 04:55 118 H 20 135/87 95 01/19/22 03:17 113 H 22 149/87 H 95 01/19/22 02:17 115 H 20 128/97 98 01/19/22 01:10 122 H 22 126/59 L 97 01/19/22 00:22 37 C 127 H 22 127/91 97 Critical Care Results & Data Vital Signs (Past 12 Hours) Vital Signs Temp Pulse Pulse Resp BP BP Pulse Ox 01/19/22 08:00 117 H 01/19/22 06:30 37.3 C 115 H 18 143/84 H 94 01/19/22 06:16 118 H 20 125/83 97 01/19/22 05:58 118 H 20 125/83 97 01/19/22 04:55 118 H 20 135/87 95 01/19/22 03:17 113 H 22 149/87 H 95 01/19/22 02:17 115 H 20 128/97 98 01/19/22 01:10 122 H 22 126/59 L 97 01/19/22 00:22 37 C 127 H 22 127/91 97 Lab & Micro Results (Past 24 Hours) RBC 5.16 M/uL (4.7-6.1) 01/19/22 WBC 8.60 K/uL (4.8-10.8) 01/19/22 Hgb 15.7 g/dL (14.0-18.0) 01/19/22 Hct 44.8 % (42-52) 01/19/22 MCV 86.8 fL (80-100) 01/19/22 MCH 30.4 pg (25-34) 01/19/22 MCHC 35.0 g/dL (32-36) 01/19/22 RDW Standard Deviation 42.8 fL (36.4-46.3) 01/19/22 RDW Coefficient of Variation 13.6 % (11.5-14.5) 01/19/22 Plt Count 33 K/uL (130-400) L 01/19/22 Neutrophils (%) (Auto) 86.8 % 01/19/22 Lymphocytes (%) (Auto) 8.6 % 01/19/22 Monocytes # (Auto) 0.38 K/uL (0.11-0.59) 01/19/22 Eosinophils # (Auto) 0.00 K/uL (0-0.5) 01/19/22 Immature Granulocyte % (Auto) 0.1 % 01/19/22 Neutrophils # (Auto) 7.46 K/uL (1.4-6.5) H 01/19/22 Lymphocytes # (Auto) 0.74 K/uL (1.2-3.4) L 01/19/22 Monocytes # (Auto) 0.38 K/uL (0.11-0.59) 01/19/22 Eosinophils # (Auto) 0.00 K/uL (0-0.5) 01/19/22 Basophils # (Auto) 0.01 K/uL (0-0.2) 01/19/22 Immature Granulocyte # (Auto) 0.01 K/uL (0.00-0.02) 01/19/22 Na 140 mmol/L (136-145) 01/19/22 K 4.6 mmol/L (3.5-5.1) 01/19/22 Cl 99 mmol/L (98-107) 01/19/22 CO2 20 mmol/L (21-32) L 01/19/22 Anion Gap 21 (3-11) H 01/19/22 BUN 25 mg/dl (6-23) H 01/19/22 Creatinine 2.19 mg/dl (0.6-1.4) H 01/19/22 Estimated GFR ( Amer) 39.5 ml/min 01/19/22 Estimated GFR (Non-Af Amer) 34.1 ml/min 01/19/22 BUN/Creatinine Ratio 11.4 (10-20) 01/19/22 Glu 180 mg/dl (70-99(Fasting)) H 01/19/22 Ca 10.0 mg/dl (8.5-10.1) 01/19/22 Total Bilirubin 2.5 mg/dl (0.2-1.0) H 01/19/22 Direct Bilirubin 1.4 mg/dl (0-0.2) H 01/19/22 AST > 79471 U/L (13-39) H 01/19/22 ALT > 2500 U/L (7-52) H 01/19/22 Alkaline Phosphatase 143 U/L (34-104) H 01/19/22 TP 8.4 gm/dl (6.0-8.3) H 01/19/22 Albumin 4.3 gm/dl (3.4-5.0) 01/19/22 Globulin 4.3 gm/dl (2.5-4.0) H 01/19/22 Albumin/Globulin Ratio 1.1 (0.9-2) 01/19/22 Mg 1.9 mg/dl (1.7-2.4) 01/19/22 06:58 01/19/22 Calcium Level 10.0 mg/dl (8.5-10.1) 01/19/22 00:04 01/19/22 Prothromb Time International Ratio 2.3 (0.9-1.1) H 01/19/22 06:58 01/19/22 Diagnostic Findings (Past 24 Hours) Abdomen/Pelvis CT 01/19/22 00:[address] WITH IV CONTRAST CT DOSE: 2017.51 mGy.cm HISTORY: Right flank pain. Upper ABD pain, N/V TECHNIQUE: Multiaxial CT images of the abdomen and pelvis were performed following the use of intravenous contrast. A dose lowering technique was utilized adhering to the principles of ALARA. COMPARISON STUDY: Abdomen and pelvis CT 01/28/2019. FINDINGS: The lung bases are clear. No pneumoperitoneum. No pneumatosis. No fractures within the visualized osseous structures. Severe hepatic steatosis. The main portal vein is patent. Trace pericholecystic fluid along the hepatic surface. No gallbladder wall thickening. The spleen, adrenal glands, pancreas, and kidneys are unremarkable. No hydronephrosis. Moderate bladder wall thickening. This could be due to underdistention. Trace ascites is noted. Normal caliber abdominal aorta. No retroperitoneal lymphadenopathy. No bowel wall thickening or obstruction. Normal appendix. Colonic diverticulosis. No evidence for acute diverticulitis. IMPRESSION: 1. Severe hepatic steatosis. 2. Trace ascites. 3. No bowel wall thickening or obstruction. 4. Normal appendix. 5. Colonic diverticulosis. No evidence for acute diverticulitis. 6. Bladder wall thickening. This is likely due to underdistention. Recommend correlation with urinalysis to exclude a cystitis. ACT 112: Negative or not required by law. Electronically signed by: Pete Lawson M.D. 01/19/2022 8:07 AM Chest CTA 01/19/22 00:29 CHEST CTA for PULMONARY ARTERIES CT DOSE: HISTORY: Right-sided chest pain. Assess for pulmonary embolus. TECHNIQUE: Multiaxial CT images of the chest were performed following the intravenous administration of contrast to evaluate the pulmonary arteries. Maximal intensity projection images were also obtained. A dose lowering technique was utilized adhering to the principles of ALARA. COMPARISON STUDY: Chest CTA 08/11/2020. FINDINGS: Mild respiratory motion artifact. There is a normal caliber thoracic aorta with no evidence for dissection. There is no evidence for pulmonary embolus. No pleural effusions. No pneumothorax. No mediastinal or hilar lymphadenopathy. The central airways are patent. The lungs are clear. IMPRESSION: No evidence for pulmonary embolus. ACT 112: Negative or not required by law. Electronically signed by: Pete Lawson M.D. 01/19/2022 8:02 AM Gallbladder Ultrasound 01/19/22 01:28 ABDOMINAL ULTRASOUND, RIGHT UPPER QUADRANT HISTORY: Transaminitis, elevated bilirubin. COMPARISON: Abdomen and pelvis CT 01/19/2022. FINDINGS: Pancreas: The pancreatic head and tail are obscured by overlying bowel gas. The remaining portions of the pancreas are within normal limits. Liver: The liver is echogenic consistent with fatty change. 21 cm in length. Gallbladder: Edematous gallbladder wall measuring up to 6 mm along the hepatic service. Trace sludge within the gallbladder. Negative sonographic Blair's sign. No gallstones. CBD: 4 mm. Right kidney: No hydronephrosis. IMPRESSION: 1. Hepatomegaly demonstrating fatty change. 2. Edematous gallbladder wall along the hepatic surface. This is likely secondar y to the underlying hepatic disease. Acute cholecystitis is considered less likely but not entirely excluded. 3. Trace gallbladder sludge. ACT 112: Negative or not required by law. Electronically signed by: Pete Lawson M.D. 01/19/2022 6:54 AM I & O Totals 24 Hours 01/18/22 01/19/22 01/20/22 06:59 06:59 06:59 Intake Total 1999 115 / 115 Output Total 450 / 450 Balance 1999 -335 / -335 Cumulative 01/19/22 00:10 thru 01/19/22 10:16 Intake Total 2115 Output Total 450 Balance 1665 RT Ventilator Mngmt (Last Documented) Ventilator Ordered Settings Respiratory Rate 18 01/19/22 06:30 Ventilator - PT Measurements Respiratory Rate 18 Coding Level of Care Code Critical Care 1st 30-74 mins Diagnoses Fulminant hepatic failure K72.90 High anion gap metabolic acidosis E87.2 Acute kidney injury superimposed on CKD N17.9; N18.9
[2022-01-19] MEDS ORDERED: CONSULT PHARMACY STA ×2 (09:54→16:33)
[2022-01-19] MEDS ORDERED: AcetylCYSTEINE 15,000 MG in D5W 200mL (Load) IV ONE (10:15)
[2022-01-19] MEDS ORDERED: NORMOSOL-R 1,000 ML IV SCH (10:45)
[2022-01-19 11:02] LABS: Fibrinogen 261 mg/dl (184-400)
[2022-01-19 11:39] LABS: Estimated Average Glucose 223 mg/dl; Hemoglobin A1C 9.4 % (4.5-5.6)
[2022-01-19 11:59] LABS: Acetaminophen 3 ug/ml (10-30); Salicylate < 3.0 mg/dl (3.0-30)
[2022-01-19] MEDS ORDERED: PIPERACILLIN/TAZOBACTAM 3.375 GM in DEXTROSE 5% 100 ML IV SCH (12:00)
--- NOTE | 2022-01-19 13:17 | Electrocardiogram Report ---
Test Reason : Blood Pressure : / mmHG Vent. Rate : 131 BPM Atrial Rate : 131 BPM P-R Int : 112 ms QRS Dur : 070 ms QT Int : 322 ms P-R-T Axes : 059 031 -30 degrees QTc Int : 475 ms Poor data quality, interpretation may be adversely affected Sinus tachycardia Nonspecific T wave abnormality Abnormal ECG When compared with ECG of 10-SEP-2021 15:01, Vent. rate has increased BY 49 BPM Confirmed by Daniel Moncada ([id number]) on 01/19/2022 1:16:32 PM Referred By: REFERRED SELF Confirmed By:Daniel Moncada
--- NOTE | 2022-01-19 13:36 | Magnetic Resonance Report ---
MR MRCP HISTORY: abnormal LFTs TECHNIQUE: MRCP of the abdomen was performed without contrast according to standard departmental prot ocol. COMPARISON STUDY: Abdominal ultrasound 01/19/2022. MRCP 04/10/2017. FINDINGS: Suboptimal evaluation due to the mild motion artifact. The lung bases appear clear. Hepatic steatosis is again noted. No hepatic or splenic masses. The adrenal glands, kidneys, and pancreas ap pear unremarkable. There is mild periportal edema and trace pericholecystic fluid. No gallbladder wal l thickening or gallstones identified. Normal caliber common bile duct and main pancreatic duct. The common bile duct measuring up to 5 mm. No definite filling defects within the common bile duct to sug gest choledocholithiasis. Of note, the distal common bile duct is partially obscured by the motion ar tifact. The stomach is distended and filled with fluid. This raises the possibility of gastroparesis. No intrapancreatic bile duct dilatation. IMPRESSION: 1. Suboptimal evaluation due to the mild motion artifact. 2. Normal caliber common bile duct. No evidence for choledocholithiasis. 3. Mild periportal edema and trace pericholecystic fluid. 4. No gallbladder wall thickening or gallstones identified. 5. Hepatic steatosis, unchanged. 6. Distended and fluid-filled stomach. Although nonspecific this raises the possibility of gastropare sis. ACT 112: Negative or not required by law. Electronically signed by: Pete Lawson M.D. 01/19/2022 1:34 PM
[2022-01-19] MEDS ORDERED: THIAMINE HCL 500 MG in SODIUM CHLORIDE 0.9% 50 ML IV STA (14:58)
[2022-01-19] MEDS ORDERED: AcetylCYSTEINE 5,000mg in D5W 500mL (Maint Dose #1) IV SCH (15:45)
[2022-01-19 15:46] LABS: Base Excess VBG -16.4 mEq/L; Oxygen Saturation VBG 80.7 %; pH VBG 7.05 (7.36-7.41)
[2022-01-19 16:16] LABS: Fibrinogen 246 mg/dl (184-400); Partial Thromboplastin Ratio 1.3; Partial Thromboplastin Time 35.7 Seconds (21.0-31.0)
[2022-01-19 16:24] LABS: Albumin Level 4.1 gm/dl (3.4-5.0); Alkaline Phosphatase 126 U/L (34-104); Anion Gap 26 (3-11); BUN Creatinine Ratio 8.9 (10-20); Bilirubin Direct 1.4 mg/dl (0-0.2); Bilirubin,Total 2.3 mg/dl (0.2-1.0); Blood Urea Nitrogen 41 mg/dl (6-23); Carbon Dioxide 16 mmol/L (21-32); Chloride 91 mmol/L (98-107); Creatinine Clr Calc Pharmacy 27.3 ml/min; Est GFR (Non-African American) 13.8 ml/min; Glucose 243 mg/dl (70-99(Fasting)); Phosphorus 9.6 mg/dl (2.5-4.9); Sodium 133 mmol/L (136-145); Total Protein 7.8 gm/dl (6.0-8.3); Troponin I 0.17 ng/ml (0-0.04)
[2022-01-19 16:30] LABS: Alanine Aminotransferase > 2500 U/L (7-52); Aspartate Aminotransferase > 10000 U/L (13-39)
[2022-01-19] MEDS ORDERED: STAT IV STA (16:31)
[2022-01-19] MEDS ORDERED: SODIUM BICARB 8.4% INJ 50 MEQ/50 ML SYR IV STA (16:36)
--- NOTE | 2022-01-19 16:42 | XCELERA ---
[id number]
[2022-01-19] MEDS ORDERED: SODIUM BICARBONATE 8.4% 150 MEQ in DEXTROSE 5% 1,000 ML IV SCH (16:45)
[2022-01-19] MEDS ORDERED: DEXTROSE 50% 50 ML SYRINGE IV ONE (16:45)
[2022-01-19] MEDS ORDERED: SODIUM POLYSTYRENE SULFONATE 15G/60ML SUSP PO ONE (17:00)
[2022-01-19] MEDS ORDERED: INSULIN HUMAN REGULAR PER UNIT 10 UNITS in SYRINGE 9.9 ML IV ONE (17:00)
[2022-01-19] MEDS ORDERED: LIDOCAINE 2% JELLY 5 ML TUBE ONE (17:13)
[2022-01-19] MEDS ORDERED: AcetylCYSTEINE 10,000 MG in D5W 1L (Maint Dose #2) IV SCH (20:00)
[2022-01-19] MEDS ORDERED: APIXABAN 5 MG TABLET PO SCH (21:00)
[2022-01-20 03:42] LABS: HBSAG NON-REACTIVE (NON-REACTIVE); Hepatitis A Antibody IgM NON-REACTIVE (NON-REACTIVE); Hepatitis B Core Antibody IgM NON-REACTIVE (NON-REACTIVE)
--- NOTE | 2022-01-21 20:33 | Discharge Summary ---
Date of Service January 19, 2022 Admission HPI Per Admitting Provider Jordan Delaney is a pleasant 51yo male presenting with abdominal pain. Patient states he has had 3 days of persistent nausea with non-bloody/non-bilious vomiting, poor appetite with decreased po intake and diffuse abdominal pain. Abdominal pain originally started as bandlike discomfort across the upper abdomen with radiation into the back, 8-9/10 in severity, worse with meals. Also with abdominal bloating. Now with diffuse abdominal pain, still worst in upper abdomen and RUQ. He reports mild, intermittent right sided chest discomfort. Dry cough. Chills. Night sweats for which he was seen by his PCP. He noted his urine to be orange in color today which prompted him to come to the ER. He denies URIAS, SOB, diarrhea, dysuria. No additional complaints at this time. In the ER patient afebrile, tachycardic, hypertensive. He is in acute pain during my encounter with diaphoresis. Dilaudid x 1mg ordered Patient evaluated by General Surgery ER Course: Morphine 4mg IV x 2, Zofran 4mg IV, NSS x 2L, Dilaudid 1mg Solumedrol 125mg x 1, Benadryl 25mg IV, Contrast dye Principal Diagnosis fulminant hepatic failure Discharge Exam General: patient appears uncomfortable, restless, mildly diaphoretic, NAD, non- toxic in appearance, AA&O x 4 Skin: warm, dry, intact, no rashes or lesions, tattoos present - professionally done HEENT: NC/AT, PERRL, EOMI, anicteric sclera, conjunctiva without injection, external ear normal to inspection and nontender, nares patent, moist mucus membranes, dentition intact, no oropharyngeal lesions, neck supple, trachea midline, no LAD, no thyromegaly, no JVD Heart: +S1/S2, regular, tachycardic, no m/r/g Lungs: equal air entry bilaterally, no rales/rhonchi/wheezes Abd: Diminished bowel sounds, soft, tenderness in RUQ, upper abdomen and lower abdomen with voluntary guarding, +Blair's sign, no rebound, no peritoneal signs Ext: warm, 2+ pulses in UE/LE bilaterally, no clubbing/cyanosis or edema Neuro: nonfocal, patient AA&O x 4, speech intact, no facial droop, moving all extremities on command with equal strength 5/5 Discharge Data Allergies Allergy/AdvReac Type Severity Reaction Status Date / Time iodine Allergy Severe THROAT Verified 12/13/21 15:54 SWELLING shellfish derived Allergy Severe THROAT Verified 12/13/21 15:54 SWELLING acetaminophen Allergy Intermediate Chest Pain Verified 12/13/21 15:54 Iodinated Contrast Media Allergy Intermediate swelling Verified 12/13/21 15:54 hydrocodone AdvReac Intermediate GI ISSUES Verified 12/13/21 15:54 Plasma, Human Allergy Severe ANAPHYLAXIS Uncoded 12/13/21 15:54 Consultations 01/19/22 04:39 ED Decision to Admit Stat 01/19/22 06:40 Consult General Surgery Routine 01/19/22 12:30 Consult Media Librarian Routine 01/19/22 13:44 Burn CD for patient Stat Ordered Studies 01/19/22 00:29 CT abd pelvis IV con only Urgent CT angio chest PE protocol Urgent 01/19/22 01:28 US gallbladder Urgent 01/19/22 06:40 MR MRCP Routine Diabetes Follow up Diabetes Follow-up Needed for HgbA1c >9% Hospital Course (1) Fulminant hepatic failure: Patient is admitted with fulminant hepatic failure. /T ALT are extremely elevated and above lab threshold. Lactic acid is 10. Concern over hepatic steatosis and or acetaminophen toxicity. Patient reports he has not been drinking. Patient was transferred to ICU. However, patient was then placed to a tertiary center as he was having worsening acidosis. (2) Acute cholecystitis: Does not appar to be acute cholecystitis. (3) Abnormal liver function test: Patient with abnormal liver studies in mixed obstructive/hepatocellular pattern with NH=048, Tbili=2.7, BDT=4737, ALT >2500. Also with thrombocytopenia with platelets=33 which is a new finding. Albumin is normal at 4.7. Na normal as well. -Check INR -Check Lactate -Check ammonia level -Check Ferritin, Acetaminophen level, acute hepatitis panel -Check LFTs -Check Liver doppler to assess for PVT - patient with history of prior VTE - uncertain if he vomited his Apixaban over the last 3 days -GI consultation appreciated -Avoid hepatotoxic medications (4) Acute kidney injury superimposed on CKD: BUN=25, Cr=2.19 which is increased from last measurement of 26 and 1.85, respectively, on 08/30/21. Suspect multifactorial - dehydration, decreased oral intake, medication effects -Check CK total -Check urine Na and Cr for FeNA -IVF with LR at 125mL/hr x 2 liters -Avoid nephrotoxic agents -Renal dosing where needed for CrCl of 55.7, GFR of 39.5 (5) Thrombocytopenia: Platelets = 33. No active bleed, epistaxis or petechiae. Ddx to include liver disease, sepsis, medication effects -Check Lyme and Anaplasmosis smear - abnormal LFTs + thrombocytopenia + history of night sweats -Checking INR as above -Continue to monitor -Will avoid tx with heparin or lovenox for now (6) Elevated troponin: Patient with mild elevation in troponin. Does endorse some vague, non- exertional chest discomfort. -Trend troponin -Telemetry monitoring -Check 2D echo -Consider Cardiology consultation (7) Pulmonary embolism: Remote history of PE. Patient is presently on anticoagulation with Apixaban 5mg BID. He states he may have vomited his last couple of doses, unsure. -Continue Apixaban 5mg po BID for now. Will need to be addressed pending surgical needs, platelet count, etc -Ordered for today at 21:00 in event of possible ERCP or other GI intervention (8) Hypertension: Blood pressure elevated -Pain control as above -Hold Lisinopril in setting of BRIDGETTE (9) DM type 2 (diabetes mellitus, type 2): Patient takes his insulin as needed. Blood sugar =180. WEll controlled - last AIC on 12/12/20 = 6.5 -Lantus 10u BID -ISS -Goal blood sugar 100 - 140 (10) Depression: Chronic. -Continue Duloxetine 60mg po daily Patient with diagnosis of ADHD -Continue Methylphenidate 20mg PO BID (11) Anxiety: Chronic. Controlled with medications -Continue Duloxetine -Continue Clonazepam BID. Cautious with opioid use in acute pain (12) Chronic pain: -Continue Baclofen -Continue Diclofenac F/E/N - LR at 125mL/hr, monitor electrolytes, NPO Ppx - On Apixaban Code - Full Dispo -Admit to PCU Total Time Total Time Spent Total Time Spent (In Minutes): 45 Discharge Plan Discharge Items Patient Disposition: Transfer Acute Care Hospital Reason For Visit: ABDOMINAL PAIN, ACUTE CHOLECYSTITIS Discharge Diagnosis: fulminant liver failure Activity: Resume your previous activity Non-emergency contact: Primary Care Provider Call non-emergency contact if: you have any medication questions Follow-up/Referrals: PCP,NO [Primary Care Provider] - Diet: Other - See Diet Comment Addtl Attending Provider Instructions: transfer Pending Studies at Discharge: No Stand-Alone Forms: My [facility] Skilled Items Patient informed of condition?: Yes DNR: No Discharge Level of Care: Other Communicable Disease: No Discharge Prognosis: Deteriorating Lines: Saline Lock Urinary Catheter: No Medications and DC Order Prescriptions: Continued (DME) blood-glucose meter [OneTouch Verio Meter] Misc See Rx Instructions .ROUTE .MEDSUPPLY Qty: 1 RF: 0 (DME) OneTouch Verio test strips Strip See Rx Instructions .ROUTE .MEDSUPPLY Qty: 400 RF: 1 (DME) lancets [OneTouch Delica Lancets] 33 gauge misc See Rx Instructions .ROUTE .MEDSUPPLY Qty: 400 RF: 1 epinephrine 0.3 mg/0.3 mL auto-injector 0.3 mg IM UD Qty: 1 RF: 2 (DME) Blood Pressure Cuff Misc See Rx Instructions .ROUTE .MEDSUPPLY Qty: 1 RF: 0 (DME) FreeStyle Test Strip See Rx Instructions .ROUTE .MEDSUPPLY Qty: 100 RF: 0 diclofenac sodium 1 % gel 2 g topical QID Qty: 100 RF: 2 lisinopril 20 mg tablet 20 mg PO QAM Qty: 90 RF: 1 (DME) TENS 502 Device See Rx Instructions .Route Qty: 1 RF: 0 pantoprazole 40 mg tablet,delayed release (DR/EC) 40 mg PO QAM Qty: 90 RF: 1 Eliquis 5 mg tablet 5 mg PO BID Qty: 180 RF: 1 insulin aspart U-100 [Novolog Flexpen U-100 Insulin] 100 unit/mL (3 mL) insulin pen 12 unit SQ AC Qty: 45 RF: 1 Lantus Solostar U-100 Insulin 100 unit/mL (3 mL) insulin pen 50 unit subcut BID Qty: 45 RF: 1 (DME) pen needle, diabetic [BD Ultra-Fine Micro Pen Needle] 32 gauge x 1/4" needle See Rx Instructions .Route Qty: 300 RF: 1 duloxetine 60 mg capsule,delayed release(DR/EC) 60 mg PO QAM Qty: 30 RF: 11 baclofen 10 mg tablet 10 mg PO TID Qty: 270 RF: 1 duloxetine 20 mg capsule,delayed release(DR/EC) 20 mg PO QAM Qty: 30 RF: 11 clonazepam 2 mg tablet 2 mg PO BID 30 Days Qty: 60 RF: 0 methylphenidate HCl [Ritalin] 20 mg tablet 20 mg PO BIDM 30 Days Qty: 60 RF: 0 naloxone 4 mg/actuation spray,non-aerosol 1 sprays intranasal Q2M PRN (Reason: (Drug) Ingestion) RF: 0 Discharge Orders: Discharge Order (Routine); Ordered 01/19/22 Ordered By: Naresh Davis/Other Patient Handouts: Managing Type 2 Diabetes Admission Data Admit Date/Time: 01/19/22 05:02 Attending Provider: Naresh Calabrese Admit Provider: Crissy Stanton Primary Care Provider: PCP,NO Other Providers: Crissy Stanton ; Jaspreet Samayoa ; Darren Eid Other Interventions: Discharge Summary Assessment (RN) Last Done: 01/19/22 17:58 Coding Level of Care Code D/C DAY MANAGEMENT >30 MINS Diagnoses Acute cholecystitis K81.0 Abnormal liver function test R79.89 Acute kidney injury superimposed on CKD N17.9; N18.9 Thrombocytopenia D69.6 Elevated troponin R77.8 Pulmonary embolism I26.99 Hypertension I10 DM type 2 (diabetes mellitus, type 2) E11.9 Depression F32.89 Depression Type: other depression Anxiety F41.9 Chronic pain G89.29 Fulminant hepatic failure K72.90 Time Spent (min) 45
== END 2022-01-19 18:03 | disposition short-term general hospital (02) ==
LOC: ED 00:12 → INTOOBSV 05:02 → 2S 05:02 → SUATTDRO 05:02 → 2S 06:16 → 1E 09:50

== ENCOUNTER 2022-02-08 06:19 | Inpatient (IN) ==
[2022-02-08] MEDS ORDERED: SODIUM CHLORIDE 0.9% 1000ML 1,000 ML IV STA (07:29)
[2022-02-08] MEDS ORDERED: ONDANSETRON INJ 2 MG/ML 2 ML VIAL IV STA (07:33)
[2022-02-08] MEDS ORDERED: MoRPHine SULFATE 4 MG/ML 1 ML CARP\\VIAL IV STA ×2 (07:33→10:34)
[2022-02-08 07:43] LABS: Basophils # (auto) 0.06 K/uL (0-0.2); Basophils % (auto) 0.9 %; Eosinophils # (auto) 0.21 K/uL (0-0.5); Eosinophils % (auto) 3.1 %; Hematocrit (blood only) 29.6 % (42-52); Hemoglobin 9.3 g/dL (14.0-18.0); Immature Granulocytes # (auto) 0.01 K/uL (0.00-0.02); Immature Granulocytes % (auto) 0.1 %; Lymphocytes # (auto) 1.96 K/uL (1.2-3.4); Lymphocytes % (auto) 29.3 %; Mean Corpuscular Hemoglobin 29.4 pg (25-34); Mean Corpuscular Hgb Conc 31.4 g/dL (32-36); Mean Corpuscular Volume 93.7 fL (80-100); Mean Platelet Volume 12.9 fL (7.4-10.4); Monocytes # (auto) 0.32 K/uL (0.11-0.59); Monocytes % (auto) 4.8 %; Neutrophils # (auto) 4.12 K/uL (1.4-6.5); Neutrophils % (auto) 61.8 %; Platelet Count 357 K/uL (130-400); RDW Coefficient of Variation 16.1 % (11.5-14.5); RDW Standard Deviation 55.5 fL (36.4-46.3); Red Blood Count 3.16 M/uL (4.7-6.1); White Blood Count 6.68 K/uL (4.8-10.8)
--- NOTE | 2022-02-08 07:50 | Emergency Department Note ---
History of Present Illness General Chief complaint: Abdominal Pain Stated complaint: ABD PAIN,GALL BLADDER Time Seen by Provider: 02/08/22 07:04 History of Present Illness Maximum Pain Intensity: 8 This is a 51-year-old male with a history of type 2 diabetes, CKD, hypertension, pulmonary embolism on Eliquis, recent acute liver failure requiring transfer to [facility], acute cholecystitis still has his gallbladder, who presents with right upper abdominal pain that has been ongoing since he was discharged about 1 week ago. This is a continuation of the pain that he was experiencing that brought him to the emergency department on 01/19/2022. This pain is exacerbated by eating any types of food and is accompanied by nausea, but no vomiting. Endorses anorexia. He does endorse a history of constipation recently. This pain is alleviated by not eating, so he feels like he has not been eating enough. Patient initially presented to this ED on 01/19/2022 for RUQ pain, nausea, vomiting. RUQ US was concerning for acute cholecystitis, MRI subsequently demonstrated no evidence of acute cholecystitis. Patient was initially admitted however his liver enzymes continue to increase so he was transferred to [facility], and ended up being intubated for a period of time in the ICU. Per patient, this was felt to be secondary to a preworkout drink that he was taking that had Tylenol in it. Patient is frustrated because he feels like all these other issues were identified but the issue that initially brought him to the emergency department was never discussed. He did follow-up with his primary care provider after being discharged and his liver enzymes and renal function had returned to a baseline status. He has not followed up with general surgery although he was under the impression that he needed to have his gallbladder removed. He denies any fevers, chills, body aches, chest pain, shortness of breath, lightheadedness, dizziness, dark tarry stools or blood in his stools, dysuria, generalized weakness. Denies any alcohol use recently since being discharged Home Medications Medication Instructions Recorded Confirmed Type naloxone 4 mg/actuation nasal spray 1 sprays INTRANASAL Q2M PRN ea 07/27/19 History insulin aspart U-100 100 unit/mL 12 unit SQ AC #45 ml 09/19/21 02/08/22 Rx (3 mL) subcutaneous pen (Novolog Flexpen U-100 Insulin aspart) insulin glargine 100 unit/mL (3 50 unit SUBCUT BID #45 ml 09/19/21 02/08/22 Rx mL) subcutaneous pen (Lantus Solostar U-100 Insulin) duloxetine 60 mg capsule,delayed 60 mg PO QAM #30 cap 10/22/21 02/08/22 Rx release duloxetine 20 mg capsule,delayed 20 mg PO QAM #30 cap 01/07/22 02/08/22 Rx release diclofenac sodium 1 % topical gel 2 g TOPICAL QID PRN 02/02/22 02/08/22 History epinephrine 0.3 mg/0.3 mL 0.3 mg IM DIRECTED PRN 02/02/22 02/08/22 History injection, auto-injector apixaban 5 mg tablet (Eliquis) 5 mg PO BID #180 tab 02/06/22 02/08/22 Rx clonazepam 2 mg tablet 2 mg PO BID 30 Days #60 tab 02/06/22 02/08/22 Rx methylphenidate HCl 20 mg tablet 20 mg PO BIDM 30 Days #60 tab 02/06/22 02/08/22 Rx (Ritalin) Allergies Allergy/AdvReac Type Severity Reaction Status Date / Time iodine Allergy Severe THROAT Verified 02/08/22 07:33 SWELLING shellfish derived Allergy Severe THROAT Verified 02/08/22 07:33 SWELLING acetaminophen Allergy Intermediate Chest Pain Verified 02/08/22 07:33 Iodinated Contrast Media Allergy Intermediate swelling Verified 02/08/22 07:33 hydrocodone AdvReac Intermediate GI ISSUES Verified 02/08/22 07:33 Plasma, Human Allergy Severe ANAPHYLAXIS Uncoded 02/08/22 07:33 Past Med/Surg History Medical History Abnormal EKG 2017 > no further follow up needed per patient Anxiety Blood clotting disorder unsure of specific details > Dr. Azevedo PCP Chest pain CKD (chronic kidney disease), stage III pt denies > says kidneys are normal Depression DM w/o complication type II, uncontrolled Esophagitis Gastrointestinal hemorrhage 2016 > resolved Hemoptysis resolved History of pleural effusion 2014> [facility] Hypertension Hypertriglyceridemia Insomnia Lesion of liver just watching > Dr. Azevedo Myalgia and myositis Obesity Precordial chest pain resolved Pulmonary embolism 4 total> last one 2016> Eliquis > came to [facility] Seafood allergy Transaminitis Uncontrolled type 2 diabetes mellitus with insulin therapy Vitamin D deficiency Surgical History History of cardiac cath 2016 due to chest pain> was clear per patient> no stents> [facility] History of colonoscopy History of esophagogastroduodenoscopy (EGD) History of shoulder surgery (~11/2019) left Hx of surgical procedure colorectal for fissure S/P arthroscopy of shoulder 07/23/19 Dr. Cortes Carranza- Left shoulder arthroscopy with superior labrum anterior to posterior repair; Debridement of glenoid labrum; Synovectomy; Subacromial decompression with acromioplasty; Distal clavicle excision with excision of 10 mm of distal clavicle. Family History Mother , s/p brain aneurysm Aneurysm Other Hypertension Denies family history of Ovarian cancer Prostate cancer Myocardial infarction Breast cancer Colorectal cancer Social History Smoking Status: Never smoker Second Hand Exposure: No; Hx Alcohol Use: No Hx Substance Use: No Preferred Language: Latvian Communication Ability: Effective Visual Impairment: No Limitations Hearing Ability: Normal Commutator Tester Required: No Beliefs That Will Affect Care: None marital status: Single Current Living Situation: Alone current occupational status: disabled Feels Safe at Home: Yes Childhood Exposure to Second-Hand Smoke: No Dental Care, Regularly: Yes Physical Activity Frequency: Does not Exercise Seatbelt Use: always Sunscreen Use: No Assistive Devices: None Review of Systems See HPI for pertinent positives & negatives. and A total of 10 systems reviewed and were otherwise negative Physical Exam Vital Signs Vital Signs - 24 hr 02/08/22 06:27 02/08/22 06:39 02/08/22 07:36 Temperature 99.0 F Temperature Source Temporal Artery Scan Pulse Rate 111 H Pulse Rate [Right] 97 H Pulse Rhythm [Right] Regular Pulse Strength [Right] Normal Respiratory Rate 18 20 Respiratory Effort / Characteristics Non-Labored Respiratory Depth Normal Respiratory Pattern Regular Blood Pressure 98/64 L Blood Pressure [Right Arm] 143/91 H Blood Pressure Mean 75 Blood Pressure Mean [Right Arm] 108 Blood Pressure Position Sitting Blood Pressure Position [Right Arm] Sitting Pulse Oximetry 98 100 98 Oxygen Delivery Method Room Air Room Air Room Air Sepsis Recent Fever Within 48 Hours No Sepsis New/Unexplained Change in Mental Status No Sepsis Action Taken by Nursing No Action Required 02/08/22 08:19 02/08/22 10:00 Temperature Temperature Source Pulse Rate Pulse Rate [Right] 87 82 Pulse Rhythm [Right] Pulse Strength [Right] Respiratory Rate 18 18 Respiratory Effort / Characteristics Respiratory Depth Respiratory Pattern Blood Pressure Blood Pressure [Right Arm] 137/84 132/78 Blood Pressure Mean Blood Pressure Mean [Right Arm] 101 96 Blood Pressure Position Blood Pressure Position [Right Arm] Pulse Oximetry 97 95 Oxygen Delivery Method Room Air Room Air Sepsis Recent Fever Within 48 Hours Sepsis New/Unexplained Change in Mental Status Sepsis Action Taken by Nursing CONSTITUTIONAL: Well developed, well nourished, in no acute distress. HEAD: Normocephalic, atraumatic. EYES: PERRL, conjunctivae normal, extraocular muscles intact. ENMT: External ears normal. Nose with normal external appearance, no congestion. Oral mucous membranes dry. Oropharynx normal. No tongue fas ciculations NECK: Full active range of motion. RESPIRATORY: Breathing unlabored and symmetric. Lungs clear to auscultation bilaterally. No wheeze, rales, or rhonchi. CARDIOVASCULAR: Regular rate and rhythm. No murmurs, rubs, or gallops. ABDOMEN: Normal bowel sounds. Abdomen is soft, there is diffuse abdominal tenderness noted especially in the upper region with a positive Blair sign. Left-sided CVA tenderness noted. No masses. Occult blood guaiac is negative per my evaluation. MUSCULOSKELETAL: Moves all extremities at all joints without pain or difficulty. No cyanosis or edema. Back with full range of motion. SKIN: [place], warm, dry. No jaundice NEUROLOGIC: Alert and oriented x 3. No acute motor or sensory deficits. Cranial nerves grossly intact. PSYCHIATRIC: Appropriate. Normal affect. Course Administered Medications Lactated Ringer's (Lr) 1,000 mls @ 200 mls/hr IV .Q5H DIAMOND Stop: 03/10/22 11:14 Last Admin: 02/08/22 11:43 Dose: 200 mls/hr Documented by: [id number] Piperacillin Sod/Tazobactam Sod (Zosyn) 4.5 gm in 120 mls @ 200 mls/hr IV NOW STA; Protocol Stop: 02/08/22 12:02 Last Admin: 02/08/22 11:56 Dose: 200 mls/hr Documented by: [id number] Discontinued Medications Sodium Chloride (Nss 1000ml) 1,000 mls @ 999 mls/hr IV .Q1H1M STA Stop: 02/08/22 08:29 Last Infusion: 02/08/22 08:47 Dose: 0 mls/hr Documented by: [id number] Admin: 02/08/22 07:46 Dose: 999 mls/hr Documented by: [id number] Morphine Sulfate (Morphine Sulfate 4 Mg/Ml 1 Ml Carp\Vial) 4 mg IV NOW STA Stop: 02/08/22 07:34 Last Admin: 02/08/22 07:46 Dose: 4 mg Documented by: [id number] Morphine Sulfate (Morphine Sulfate 4 Mg/Ml 1 Ml Carp\Vial) 4 mg IV NOW STA Stop: 02/08/22 10:35 Last Admin: 02/08/22 10:48 Dose: 4 mg Documented by: [id number] Ondansetron HCl (Ondansetron Inj 2 Mg/Ml 2 Ml Vial) 4 mg IV NOW STA Stop: 02/08/22 07:34 Last Admin: 02/08/22 07:46 Dose: 4 mg Documented by: [id number] Medical Decision Making Differential Diagnosis Appendicitis, testicular torsion, infections, diverticulitis, UTI, obstruction, mesenteric ischemia, aortic pathology, inflammatory bowel disease, renal colic, PUD, pancreatitis, biliary pathology, hernia, volvulus, constipation, as well as other pathologies. Medical Records Attestation: I reviewed the patient's medical records. Laboratory Data Result diagrams: 02/08/22 09:43 02/08/22 06:45 Lab Results 02/08/22 02/08/22 02/08/22 Range/Units 06:45 06:45 06:45 WBC 6.68 (4.8-10.8) K/uL RBC 3.16 L (4.7-6.1) M/uL Hgb 9.3 L (14.0-18.0) g/dL Hct 29.6 L (42-52) % MCV 93.7 (80-100) fL MCH 29.4 (25-34) pg MCHC 31.4 L (32-36) g/dL RDW Std Deviation 55.5 H (36.4-46.3) fL RDW Coeff of Lillie 16.1 H (11.5-14.5) % Plt Count 357 (130-400) K/uL MPV 12.9 H (7.4-10.4) fL Immature Gran % (Auto) 0.1 % Neut % (Auto) 61.8 % Lymph % (Auto) 29.3 % Gordon % (Auto) 4.8 % Eos % (Auto) 3.1 % Baso % (Auto) 0.9 % Neut # (Auto) 4.12 (1.4-6.5) K/uL Lymph # (Auto) 1.96 (1.2-3.4) K/uL Gordon # (Auto) 0.32 (0.11-0.59) K/uL Eos # (Auto) 0.21 (0-0.5) K/uL Baso # (Auto) 0.06 (0-0.2) K/uL Immature Gran # (Auto) 0.01 (0.00-0.02) K/uL PT (9.0-12.0) Seconds INR (0.9-1.1) APTT (21.0-31.0) Seconds PTT Ratio Sodium 133 L (136-145) mmol/L Potassium 4.6 (3.5-5.1) mmol/L Chloride 104 (98-107) mmol/L Carbon Dioxide 23 (21-32) mmol/L Anion Gap 6 (3-11) BUN 23 (6-23) mg/dl Creatinine 1.87 H (0.6-1.4) mg/dl Est Cr Clr Drug Dosing 65.7 ml/min Est GFR ( Amer) 47.8 ml/min Est GFR (Non-Af Amer) 41.3 ml/min BUN/Creatinine Ratio 12.3 (10-20) Glucose 301 H* (70-99(Fasting)) mg/dl POC Glucose (70-99) mg/dl Calcium 8.7 (8.5-10.1) mg/dl Iron (35-175) mcg/dl TIBC (250-450) mcg/dl Unsaturated IBC (155-355) mcg/dl Transferrin % Sat (20-50) % Total Bilirubin 1.6 H (0.2-1.0) mg/dl AST 171 H (13-39) U/L ALT 170 H (7-52) U/L Alkaline Phosphatase 364 H (34-104) U/L Total Protein 8.2 (6.0-8.3) gm/dl Albumin 3.1 L (3.4-5.0) gm/dl Globulin 5.1 H (2.5-4.0) gm/dl Albumin/Globulin Ratio 0.6 L (0.9-2) Lipase 2023 H (11-82) U/L Vitamin B12 (180-914) pg/ml Folate (>5.38) ng/ml Urine Color Yellow Urine Appearance Clear (Clear) Urine pH 6.0 (4.5-7.5) Ur Specific [place] 1.014 (1.000-1.030) Urine Protein Negative (Negative) Urine Glucose (UA) 3+ H (Negative) Urine Ketones Negative (Negative) Urine Blood Negative (Negative) Urine Nitrite Negative (Negative) Urine Bilirubin Negative (Negative) Urine Urobilinogen Negative (Negative) Ur Leukocyte Esterase Negative (Negative) SARS-CoV-2, RNA, NAAT (NEGATIVE) 02/08/22 02/08/22 02/08/22 Range/Units 09:43 09:43 09:46 WBC (4.8-10.8) K/uL RBC (4.7-6.1) M/uL Hgb 8.8 L (14.0-18.0) g/dL Hct 28.5 L (42-52) % MCV (80-100) fL MCH (25-34) pg MCHC (32-36) g/dL RDW Std Deviation (36.4-46.3) fL RDW Coeff of Lillie (11.5-14.5) % Plt Count (130-400) K/uL MPV (7.4-10.4) fL Immature Gran % (Auto) % Neut % (Auto) % Lymph % (Auto) % Gordon % (Auto) % Eos % (Auto) % Baso % (Auto) % Neut # (Auto) (1.4-6.5) K/uL Lymph # (Auto) (1.2-3.4) K/uL Gordon # (Auto) (0.11-0.59) K/uL Eos # (Auto) (0-0.5) K/uL Baso # (Auto) (0-0.2) K/uL Immature Gran # (Auto) (0.00-0.02) K/uL PT 11.9 (9.0-12.0) Seconds INR 1.1 (0.9-1.1) APTT 28.6 (21.0-31.0) Seconds PTT Ratio 1.0 Sodium (136-145) mmol/L Potassium (3.5-5.1) mmol/L Chloride (98-107) mmol/L Carbon Dioxide (21-32) mmol/L Anion Gap (3-11) BUN (6-23) mg/dl Creatinine (0.6-1.4) mg/dl Est Cr Clr Drug Dosing ml/min Est GFR ( Amer) ml/min Est GFR (Non-Af Amer) ml/min BUN/Creatinine Ratio (10-20) Glucose (70-99(Fasting)) mg/dl POC Glucose (70-99) mg/dl Calcium (8.5-10.1) mg/dl Iron 70 (35-175) mcg/dl TIBC 223 L (250-450) mcg/dl Unsaturated IBC 153 L (155-355) mcg/dl Transferrin % Sat 31 (20-50) % Total Bilirubin (0.2-1.0) mg/dl AST (13-39) U/L ALT (7-52) U/L Alkaline Phosphatase (34-104) U/L Total Protein (6.0-8.3) gm/dl Albumin (3.4-5.0) gm/dl Globulin (2.5-4.0) gm/dl Albumin/Globulin Ratio (0.9-2) Lipase (11-82) U/L Vitamin B12 (180-914) pg/ml Folate (>5.38) ng/ml Urine Color Urine Appearance (Clear) Urine pH (4.5-7.5) Ur Specific [place] (1.000-1.030) Urine Protein (Negative) Urine Glucose (UA) (Negative) Urine Ketones (Negative) Urine Blood (Negative) Urine Nitrite (Negative) Urine Bilirubin (Negative) Urine Urobilinogen (Negative) Ur Leukocyte Esterase (Negative) SARS-CoV-2, RNA, NAAT (NEGATIVE) 02/08/22 02/08/22 02/08/22 Range/Units 09:46 10:27 11:16 WBC (4.8-10.8) K/uL RBC (4.7-6.1) M/uL Hgb (14.0-18.0) g/dL Hct (42-52) % MCV (80-100) fL MCH (25-34) pg MCHC (32-36) g/dL RDW Std Deviation (36.4-46.3) fL RDW Coeff of Lillie (11.5-14.5) % Plt Count (130-400) K/uL MPV (7.4-10.4) fL Immature Gran % (Auto) % Neut % (Auto) % Lymph % (Auto) % Gordon % (Auto) % Eos % (Auto) % Baso % (Auto) % Neut # (Auto) (1.4-6.5) K/uL Lymph # (Auto) (1.2-3.4) K/uL [place] # (Auto) (0.11-0.59) K/uL Eos # (Auto) (0-0.5) K/uL Baso # (Auto) (0-0.2) K/uL Immature Gran # (Auto) (0.00-0.02) K/uL PT (9.0-12.0) Seconds INR (0.9-1.1) APTT (21.0-31.0) Seconds PTT Ratio Sodium (136-145) mmol/L Potassium (3.5-5.1) mmol/L Chloride (98-107) mmol/L Carbon Dioxide (21-32) mmol/L Anion Gap (3-11) BUN (6-23) mg/dl Creatinine (0.6-1.4) mg/dl Est Cr Clr Drug Dosing ml/min Est GFR ( Amer) ml/min Est GFR (Non-Af Amer) ml/min BUN/Creatinine Ratio (10-20) Glucose (70-99(Fasting)) mg/dl POC Glucose 167 H (70-99) mg/dl Calcium (8.5-10.1) mg/dl Iron (35-175) mcg/dl TIBC (250-450) mcg/dl Unsaturated IBC (155-355) mcg/dl Transferrin % Sat (20-50) % Total Bilirubin (0.2-1.0) mg/dl AST (13-39) U/L ALT (7-52) U/L Alkaline Phosphatase (34-104) U/L Total Protein (6.0-8.3) gm/dl Albumin (3.4-5.0) gm/dl Globulin (2.5-4.0) gm/dl Albumin/Globulin Ratio (0.9-2) Lipase (11-82) U/L Vitamin B12 > 1500 H (180-914) pg/ml Folate 7.75 (>5.38) ng/ml Urine Color Urine Appearance (Clear) Urine pH (4.5-7.5) Ur Specific [place] (1.000-1.030) Urine Protein (Negative) Urine Glucose (UA) (Negative) Urine Ketones (Negative) Urine Blood (Negative) Urine Nitrite (Negative) Urine Bilirubin (Negative) Urine Urobilinogen (Negative) Ur Leukocyte Esterase (Negative) SARS-CoV-2, RNA, NAAT NEGATIVE (NEGATIVE) Imaging Data Radiologist's Impression: Gallbladder Ultrasound 02/08/22 07:29 US gallbladder CLINICAL HISTORY: RUQ pain, worse after eating, hx same. COMPARISON: None. TECHNIQUE: Multiple grayscale and color images of the right upper quadrant of the abdomen. FINDINGS: The study is limited by overlying bowel gas. Pancreas: The imaged portion of the pancreas is within normal limits with no focal mass or peripancreatic fluid collection identified. Liver: The liver is homogeneous in echogenicity There is no evidence for a focal mass. There is no intrahepatic biliary duct dilatation. Gallbladder: The gallbladder is well distended with no evidence of cholelithiasis, wall thickening or pericholecystic edema. However, there is mobile sludge within the gallbladder. Common Bile Duct: (CBD): It is normal in size measuring 5 mm. However, there is question of minimal sludge within the common bile duct as well. Inferior Vena Cava (IVC): The imaged IVC is patent. Right kidney: There is no evidence for hydronephrosis, calculus or gross renal mass. The kidney is normal in size. IMPRESSION: 1. Limited examination with sludge present within the gallbladder. 2. There is also suspicion of sludge within the common bile duct without dilatation of the common bile duct. ACT 112: Negative or not required by law. Electronically signed by: Richard Ortega M.D. 02/08/2022 8:52 AM Chest X-Ray 02/08/22 09:37 XR chest 1V portable CLINICAL HISTORY: Atypical chest pain. COMPARISON STUDY: Chest CT January 19, 2022. FINDINGS: Lung volumes are mildly diminished. There is no pneumothorax or pleural effusion. Minimal left basilar opacity favors atelectasis. No consolidation to suggest pneumonia. Cardiac size is within normal limits on this hypoventilatory AP study. IMPRESSION: No acute cardiopulmonary findings. ACT 112: Negative or not required by law. Electronically signed by: Lukas Duke M.D. 02/08/2022 10:13 AM MDM Narrative 51-year-old male presents with ongoing abdominal pain, anorexia, difficulty eating. This is complicated by a recent transfer to [facility] for acute liver and renal failure where he was subsequently intubated for a period of time, and received hemodialysis for acute renal failure. Per chart review from [facility] he was also placed on antibiotics for suspected pneumonia. He was encouraged to follow-up with nephrology and primary care. He returns with symptoms that he was initially having prior to his first presentation to this facility on 01/19/2022. On exam, patient is overall well-appearing in no acute distress although he does have significant abdominal tenderness especially in the right upper quadrant with a positive Blair sign. His oral mucous membranes are dry likely secondary to decreased oral intake due to his ongoing symptoms. Patient was placed on the domestic housekeeper and normal sinus rhythm was visualized, not tachycardic. Overall concern for ongoing hepatobiliary dysfunction. Labs and fluids obtained and administered. Right upper quadrant ultrasound ordered. Overall labs demonstrate an anemia with a hemoglobin of 9.3 which she was 15.7 recently at this facility although per chart review at time of discharge from [facility] hemoglobin was 10.6. No thrombocytopenia noted today although he was low at time of discharge from [facility]. Sodium decreased at 133, likely secondary to decreased intake. Creatinine 1.87, likely about his baseline. Hyperglycemic at 301. Liver enzymes likely back to baseline in the 170 range. Alkaline phosphatase now 364 from 126 from most recent visit to [facility]. Urine no evidence of infection although he has 3+ glucose. Most notably, patient's lipase is now elevated at 2022 and it was near normal 2 weeks ago, acute pancreatitis Ultrasound demonstrates sludge in the gallbladder as well as the common bile duct although no stones or evidence of cholecystitis was noted. Patient's pain was controlled with 2 doses of morphine, and he received IV fluids which did lower his blood glucose levels to 160 so he did not receive any insulin in the emergency department. I consulted with general surgery, GI, and the hospitalist and a plan was de termined to admit the patient for ongoing management and perform an ERCP today. Patient will be admitted under Dr. Gallardo. Impression & Plan Acute pancreatitis, Hyperglycemia, Anemia, Acute hyponatremia Discharge Plan Visit Data Chief Complaint: Abdominal Pain Stated Complaint: ABD PAIN,GALL BLADDER ED Provider: Jose Garcia ED Midlevel Provider: [place] Discharge Problem: Acute pancreatitis, Hyperglycemia, Anemia, Acute hyponatremia Forms Stand Alone Forms: My [facility] [employer] Prescriptions Prescriptions: No Action insulin aspart U-100 [Novolog Flexpen U-100 Insulin] 100 unit/mL (3 mL) insulin pen 12 unit SQ AC Qty: 45 RF: 1 Lantus Solostar U-100 Insulin 100 unit/mL (3 mL) insulin pen 50 unit subcut BID Qty: 45 RF: 1 duloxetine 60 mg capsule,delayed release(DR/EC) 60 mg PO QAM Qty: 30 RF: 11 duloxetine 20 mg capsule,delayed release(DR/EC) 20 mg PO QAM Qty: 30 RF: 11 clonazepam 2 mg tablet 2 mg PO BID 30 Days Qty: 60 RF: 0 methylphenidate HCl [Ritalin] 20 mg tablet 20 mg PO BIDM 30 Days Qty: 60 RF: 0 Eliquis 5 mg tablet 5 mg PO BID Qty: 180 RF: 1 naloxone 4 mg/actuation spray,non-aerosol 1 sprays intranasal Q2M PRN (Reason: (Drug) Ingestion) RF: 0 epinephrine 0.3 mg/0.3 mL auto-injector 0.3 mg IM DIRECTED PRN (Reason: Allergic Reaction) RF: 0 diclofenac sodium 1 % gel 2 g topical QID PRN (Reason: Pain) RF: 0 Referrals Referrals: Edgardo Azevedo DO [Primary Care Provider] - Discharge Problem: Acute pancreatitis Qualifiers: Pancreatitis type: unspecified pancreatitis type Acute pancreatitis complication: unspecified Qualified Code(s): K85.90 - Acute pancreatitis without necrosis or infection, unspecified Anemia Qualifiers: Anemia type: unspecified type Qualified Code(s): D64.9 - Anemia, unspecified
[2022-02-08 07:54] LABS: Appearance Urine Clear (Clear); Bilirubin Urine Negative (Negative); Blood Urine Negative (Negative); Color Urine Yellow; Glucose Urine UA 3+ (Negative); Ketones Urine Negative (Negative); Leukocyte Esterase Urine Negative (Negative); Nitrite Urine Negative (Negative); Protein Urine Negative (Negative); Specific Gravity Urine 1.014 (1.000-1.030); Urobilinogen Urine Negative (Negative)
[2022-02-08 08:20] LABS: Albumin Globulin Ratio 0.6 (0.9-2); Albumin Level 3.1 gm/dl (3.4-5.0); BUN Creatinine Ratio 12.3 (10-20); Bilirubin,Total 1.6 mg/dl (0.2-1.0); Calcium 8.7 mg/dl (8.5-10.1); Creatinine Clr Calc Pharmacy 65.7 ml/min; Est GFR (African American) 47.8 ml/min; Est GFR (Non-African American) 41.3 ml/min; Globulin 5.1 gm/dl (2.5-4.0); Potassium 4.6 mmol/L (3.5-5.1); Total Protein 8.2 gm/dl (6.0-8.3)
--- NOTE | 2022-02-08 08:54 | Ultrasound Report ---
US gallbladder CLINICAL HISTORY: RUQ pain, worse after eating, hx same. COMPARISON: None. TECHNIQUE: Multiple grayscale and color images of the right upper quadrant of the abdomen. FINDINGS: The study is limited by overlying bowel gas. Pancreas: The imaged portion of the pancreas is within normal limits with no focal mass or peripancre atic fluid collection identified. Liver: The liver is homogeneous in echogenicity There is no evidence for a focal mass. There is no in trahepatic biliary duct dilatation. Gallbladder: The gallbladder is well distended with no evidence of cholelithiasis, wall thickening or pericholecystic edema. However, there is mobile sludge within the gallbladder. Common Bile Duct: (CBD): It is normal in size measuring 5 mm. However, there is question of minimal s ludge within the common bile duct as well. Inferior Vena Cava (IVC): The imaged IVC is patent. Right kidney: There is no evidence for hydronephrosis, calculus or gross renal mass. The kidney is no rmal in size. IMPRESSION: 1. Limited examination with sludge present within the gallbladder. 2. There is also suspicion of sludge within the common bile duct without dilatation of the common makenzie e duct. ACT 112: Negative or not required by law. Electronically signed by: Richard Ortega M.D. 02/08/2022 8:52 AM
[2022-02-08 09:59] LABS: Hematocrit (blood only) 28.5 % (42-52); Hemoglobin 8.8 g/dL (14.0-18.0)
[2022-02-08] MEDS ORDERED: INSULIN ASPART PER UNIT SC ONE (10:00)
[2022-02-08] MEDS ORDERED: INSULIN GLARGINE SOLOSTAR 100 UNITS/ML 3 ML PEN SC ONE (10:15)
--- NOTE | 2022-02-08 10:15 | XRay Report ---
XR chest 1V portable CLINICAL HISTORY: Atypical chest pain. COMPARISON STUDY: Chest CT January 19, 2022. FINDINGS: Lung volumes are mildly diminished. There is no pneumothorax or pleural effusion. Minimal l eft basilar opacity favors atelectasis. No consolidation to suggest pneumonia. Cardiac size is within normal limits on this hypoventilatory AP study. IMPRESSION: No acute cardiopulmonary findings. ACT 112: Negative or not required by law. Electronically signed by: Lukas Duke M.D. 02/08/2022 10:13 AM
[2022-02-08 10:30] LABS: Iron 70 mcg/dl (35-175); Total Iron Binding Cap Calc 223 mcg/dl (250-450); Transferrin (FE) Percent Satur 31 % (20-50); Unsaturated Iron Binding Cap 153 mcg/dl (155-355)
[2022-02-08 10:48] LABS: INR 1.1 (0.9-1.1); Partial Thromboplastin Time 28.6 Seconds (21.0-31.0); Prothrombin Time 11.9 Seconds (9.0-12.0)
[2022-02-08 10:50] LABS: Folate (Folic Acid) 7.75 ng/ml (>5.38); Vitamin B12 > 1500 pg/ml (180-914)
[2022-02-08] MEDS ORDERED: INDOMETHACIN 50 MG SUPP PR ONE ×2 (10:52→13:14)
--- NOTE | 2022-02-08 10:55 | History & Physical Report ---
Date of Service February 08, 2022 Assessment & Plan (1) Acute pancreatitis: Plan: - Elevated lipase, with abdominal pain consistent with pancreatitis, ? gallstone pancreatitis, RUQ U/S shows gallbladder sludge and CBD sludge. - GI consulted, plan for EGD/EUS with potential ERCP with Dr. Valdivia today. - NPO, LRs @ 200 cc/hr, Zosyn q8h for coverage of possible acute cholecystitis/cholangitis especially as blood cultures positive from last admission-unclear if this was treated - Eliquis for recurrent PEs/possible clotting disorder, last dose yesterday 07. Will continue to hold. Dr. Shultz consulted, plan for [facility]cent[facility] in pre-op. - General surgery also consulted for for cholecystectomy when medically stable (2) Fulminant hepatic failure: Plan: - Hospitalized 01/19 - 02/02 at [facility], thought to be due to a preworkout mix containing Tylenol. See scanned discharge summary note from 02/02. - AST/ALT 171/170, improving. - Alk phos 364, T bili 1.6. - Coag panel wnl today and platelets back to normal indicating normal synthetic function of the liver -With work-up for gallstone pancreatitis as above (3) Blood clotting disorder: Plan: - 4 blood clots between 2008- 2015, reportedly being evaluated for possible clotting disorder. Without recurrence since starting Eliquis. - Holding Eliquis as above. -SCDs for now for DVT prophylaxis (4) CKD (chronic kidney disease), stage III: Plan: - Baseline Cr ~1.8, is 1.87 today. Creatinine was noted to be 3.6 on the day of discharge from [facility] on 02/02 -He did require temporary CRRT during his ICU hospitalization at [facility] - PCP note states a possible nephrology referral in future. He reports he has an appointment with nephrology scheduled for next week - LRs @ 200cc/hr for NPO, pancreatitis. - Renally dose medications, avoid nephrotoxic agents. (5) DM type 2 (diabetes mellitus, type 2): Plan: - Home insulin regimen is basal/bolus with 50 units BID and 12 units with meals. - Continue this while inpatient, will decrease basal dose by 50% while NPO and use NovoLog correction factor every 6 hours - Initially hyperglycemic with glucose 301, repeat 4 hours later after fluids and Lantus 25 units is 167. - last AIC on 12/12/20 = 6.5 (6) Anxiety: Plan: - Chronic, stable. - Continue Duloxetine - Clonazepam BID. (7) Depression: Plan: Continue duloxetine as above (8) Hypertension: Plan: - Recently on lisinopril, held in setting of BRIDGETTE and then d/c'd by PCP following reported 60 lb weight loss this month due to prolonged hospitalization. - Slightly hypertensive in ED, likely in setting of pain. - Monitor, can consider adding on a new anti-hypertensive at discharge if patient continues to be hypertensive despite adequate pain control. (9) Acute hyponatremia: Plan: - 133, corrects to normal when accounting for glucose 301. (10) Anemia: Plan: - Hgb 8.8, on d/c one week ago was 8.6. MCV 93.7 MCHC 31.4 - No reports of acute bleeding; no hematemesis, hematuria, dark, tarry stools or hematochezia. -Could be due to previous GI bleeding as black stools noted on discharge summary from [facility]; also with recent renal failure requiring dialysis - TIBC 223, transferrin 31% Fe 70 - Folate, B12 normal. -Follow CBC and transfuse PRBCs as needed if hemoglobin less than 7 (11) Bacteremia: Plan: -Blood cultures from 01/19 here growing alpha Streptococcus-not strep pneumo or Enterococcus in 1/ bottles-it is unclear if this was ever treated once he was transferred to [facility] - Per d/c summary on 02/02, blood cultures were negative. He is afebrile here, VS wnl, repeating blood cultures today prior to Zosyn. - Lactate 1.1. Plan: - PCU. - SCDs, hold Eliquis due to planned procedures. - Full Code. History of Present Illness Chief Complaint: Abdominal pain Primary Care Provider: Edgardo Azevedo DO Mr. Delaney is a 51-year-old male with past medical history of fulminant liver failure with BRIDGETTE on CKD hospitalized from 01/19- 02/02 (see 02/02 scanned discharge summary report) DM2, hypertension, recurrent PEs on Eliquis, depression, anxiety, and ADHD who presents today with right upper quadrant pain. This was actually the patient's presenting symptom in our ED 01/19 he was diagnosed with liver failure, he was transferred to [facility] for further management, and states they were not able to operate on his gallbladder at the time due to his liver and kidney function. Since discharge 6 days ago, his right upper quadrant pain has not acutely however it persists, and is migrating to his back and right side as well as bilateral shoulders. He has constantly been nauseous and unable to eat much. The largest meal he has had over the past 6 days is a salad, and he was very nauseous after this. He says he had 1 or 2 episodes of emesis earlier this week, otherwise has not been vomiting, no hematemesis. Bowel movements unchanged, although he has had been having less as he is not eating. No dark tarry stools, no jomar red blood, diarrhea. Without urinary symptoms, no dysuria or hematuria. No fever/chills, weakness, chest pain, SOB. Allergies Allergy/AdvReac Type Severity Reaction Status Date / Time iodine Allergy Severe THROAT Verified 02/08/22 07:33 SWELLING shellfish derived Allergy Severe THROAT Verified 02/08/22 07:33 SWELLING acetaminophen Allergy Intermediate Chest Pain Verified 02/08/22 07:33 Iodinated Contrast Media Allergy Intermediate swelling Verified 02/08/22 07:33 hydrocodone AdvReac Intermediate GI ISSUES Verified 02/08/22 07:33 Plasma, Human Allergy Severe ANAPHYLAXIS Uncoded 02/08/22 07:33 Home Medications Medication Instructions Recorded Confirmed Type naloxone 4 mg/actuation nasal spray 1 sprays INTRANASAL Q2M PRN ea 07/27/19 02/08/22 History insulin aspart U-100 100 unit/mL 12 unit SQ AC #45 ml 09/19/21 02/08/22 Rx (3 mL) subcutaneous pen (Novolog Flexpen U-100 Insulin aspart) insulin glargine 100 unit/mL (3 50 unit SUBCUT BID #45 ml 09/19/21 02/08/22 Rx mL) subcutaneous pen (Lantus Solostar U-100 Insulin) duloxetine 60 mg capsule,delayed 60 mg PO QAM #30 cap 10/22/21 02/08/22 Rx release duloxetine 20 mg capsule,delayed 20 mg PO QAM #30 cap 01/07/22 02/08/22 Rx release diclofenac sodium 1 % topical gel 2 g TOPICAL QID PRN 02/02/22 02/08/22 History epinephrine 0.3 mg/0.3 mL 0.3 mg IM DIRECTED PRN 02/02/22 02/08/22 History injection, auto-injector apixaban 5 mg tablet (Eliquis) 5 mg PO BID #180 tab 02/06/22 02/08/22 Rx clonazepam 2 mg tablet 2 mg PO BID 30 Days #60 tab 02/06/22 02/08/22 Rx methylphenidate HCl 20 mg tablet 20 mg PO BIDM 30 Days #60 tab 02/06/22 02/08/22 Rx (Ritalin) Past Med/Surg History Medical History (Updated 02/08/22 @ 13:43 by Charley Gallardo MD) Abnormal EKG 2017 > no further follow up needed per patient Anxiety Blood clotting disorder unsure of specific details > Dr. Azevedo PCP Chest pain CKD (chronic kidney disease), stage III Depression DM w/o complication type II, uncontrolled Esophagitis Gastrointestinal hemorrhage 2016 > resolved Hemoptysis resolved History of liver failure History of pleural effusion 2013> [facility] Hypertension Hypertriglyceridemia Insomnia Lesion of liver just watching > Dr. Azevedo Myalgia and myositis Obesity Precordial chest pain resolved Pulmonary embolism 4 total> last one 2016> Eliquis > came to [facility] Seafood allergy Transaminitis Uncontrolled type 2 diabetes mellitus with insulin therapy Vitamin D deficiency Surgical History History of cardiac cath 2016 due to chest pain> was clear per patient> no stents> [facility] History of colonoscopy History of esophagogastroduodenoscopy (EGD) History of shoulder surgery (~11/2019) left Hx of surgical procedure colorectal for fissure S/P arthroscopy of shoulder 07/23/19 Dr. Cortes Carranza- Left shoulder arthroscopy with superior labrum anterior to posterior repair; Debridement of glenoid labrum; Synovectomy; Subacromial decompression with acromioplasty; Distal clavicle excision with excision of 10 mm of distal clavicle. Family History Mother , s/p brain aneurysm Aneurysm Other Hypertension Denies family history of Ovarian cancer Prostate cancer Myocardial infarction Breast cancer Colorectal cancer Social History Smoking Status: Never smoker Second Hand Exposure: No; Hx Alcohol Use: No Hx Substance Use: No Preferred Language: Afghan Communication Ability: Effective Visual Impairment: No Limitations Hearing Ability: Normal Treatment Plant Mechanic Required: No Beliefs That Will Affect Care: None marital status: Single Current Living Situation: Alone current occupational status: disabled Feels Safe at Home: Yes Childhood Exposure to Second-Hand Smoke: No Dental Care, Regularly: Yes Physical Activity Frequency: Does not Exercise Seatbelt Use: always Sunscreen Use: No Assistive Devices: None Review of Systems Review of Systems: Constitutional: No fever/chills, weakness, fatigue, myalgias, anorexia, night sweats Eyes: No diplopia, no worsening or blurred vision ENT: normal hearing, no trouble swallowing Respiratory: No cough, sputum, dyspnea at rest or on exertion Cardiovascular: No chest pain, tightness or palpitations Abdomen: Right upper quadrant abdominal pain that radiates to his back, right side, bilateral shoulders associated with nausea, 1-2 episodes of nonbloody emesis earlier this week, no diarrhea or constipation : Denies dysuria, hematuria, increased urgency/frequency, urinary retention Musculoskeletal: No joint pain, calf pain, swelling Neurologic: No weakness, numbness/tingling, or balance problems Psychiatric: No anxiety or depression Skin: Reports knots in his abdomen with bruising since discharge from [facility] 6 days ago, however states they developed while he was in the hospital and not after discharge Physical Exam Physical Exam: General: awake, alert, no apparent distress, on room air Head: Normocephalic, atraumatic ENT: PERRL, EOMI, no pharyngeal exudate, mucous membranes moist Chest: Clear to auscultation, on room air, no adventitious breath sounds Cardiac: Regular rate and rhythm, no murmur, no JVD, normal peripheral pulses, good capillary refill Abdominal: Right upper quadrant tenderness with some radiation to the epigastric region, otherwise no abdominal pain, no rebound, guarding; NABS throughout Extremities: Normal inspection, no peripheral edema or erythema, calfs nontender to palpation Psych: Normal mood and affect Neuro: AAO x 3, strength intact bilaterally and rated 5/5, no motor deficits, speech is clear, no peripheral sensory deficits Skin: There is some minor bruising in the lower quadrants of his abdomen with 2 SQ nodules palpated in right lower quadrant near surface of skin, 1 about quarter size and 1 about half dollar size consistent with where patient reports he was receiving SQ injections at [facility] Results & Data Results & Data ([facility]) Vital Signs (Past 12 Hours) Vital Signs Temp Pulse Pulse Resp BP BP Pulse Ox 02/08/22 10:00 82 18 132/78 95 02/08/22 08:19 87 18 137/84 97 02/08/22 07:36 98 02/08/22 06:39 97 H 20 143/91 H 100 02/08/22 06:27 37.2 C 111 H 18 98/64 L 98 Laboratory Results Abnormal lab results 02/08/22 02/08/22 02/08/22 Range/Units 06:45 06:45 06:45 RBC 3.16 L (4.7-6.1) M/uL Hgb 9.3 L (14.0-18.0) g/dL Hct 29.6 L (42-52) % MCHC 31.4 L (32-36) g/dL RDW Std Deviation 55.5 H (36.4-46.3) fL RDW Coeff of Lillie 16.1 H (11.5-14.5) % MPV 12.9 H (7.4-10.4) fL Sodium 133 L (136-145) mmol/L Creatinine 1.87 H (0.6-1.4) mg/dl Glucose 301 H* (70-99(Fasting)) mg/dl POC Glucose (70-99) mg/dl TIBC (250-450) mcg/dl Unsaturated IBC (155-355) mcg/dl Total Bilirubin 1.6 H (0.2-1.0) mg/dl AST 171 H (13-39) U/L ALT 170 H (7-52) U/L Alkaline Phosphatase 364 H (34-104) U/L Albumin 3.1 L (3.4-5.0) gm/dl Globulin 5.1 H (2.5-4.0) gm/dl Albumin/Globulin Ratio 0.6 L (0.9-2) Lipase 2023 H (11-82) U/L Vitamin B12 (180-914) pg/ml Urine Glucose (UA) 3+ H (Negative) 02/08/22 02/08/22 02/08/22 Range/Units 09:43 09:46 09:46 RBC (4.7-6.1) M/uL Hgb 8.8 L (14.0-18.0) g/dL Hct 28.5 L (42-52) % MCHC (32-36) g/dL RDW Std Deviation (36.4-46.3) fL RDW Coeff of Lillie (11.5-14.5) % MPV (7.4-10.4) fL Sodium (136-145) mmol/L Creatinine (0.6-1.4) mg/dl Glucose (70-99(Fasting)) mg/dl POC Glucose (70-99) mg/dl TIBC 223 L (250-450) mcg/dl Unsaturated IBC 153 L (155-355) mcg/dl Total Bilirubin (0.2-1.0) mg/dl AST (13-39) U/L ALT (7-52) U/L Alkaline Phosphatase (34-104) U/L Albumin (3.4-5.0) gm/dl Globulin (2.5-4.0) gm/dl Albumin/Globulin Ratio (0.9-2) Lipase (11-82) U/L Vitamin B12 > 1500 H (180-914) pg/ml Urine Glucose (UA) (Negative) 02/08/22 Range/Units 10:27 RBC (4.7-6.1) M/uL Hgb (14.0-18.0) g/dL Hct (42-52) % MCHC (32-36) g/dL RDW Std Deviation (36.4-46.3) fL RDW Coeff of Lillie (11.5-14.5) % MPV (7.4-10.4) fL Sodium (136-145) mmol/L Creatinine (0.6-1.4) mg/dl Glucose (70-99(Fasting)) mg/dl POC Glucose 167 H (70-99) mg/dl TIBC (250-450) mcg/dl Unsaturated IBC (155-355) mcg/dl Total Bilirubin (0.2-1.0) mg/dl AST (13-39) U/L ALT (7-52) U/L Alkaline Phosphatase (34-104) U/L Albumin (3.4-5.0) gm/dl Globulin (2.5-4.0) gm/dl Albumin/Globulin Ratio (0.9-2) Lipase (11-82) U/L Vitamin B12 (180-914) pg/ml Urine Glucose (UA) (Negative) Diagnostic Findings Gallbladder Ultrasound 02/08/22 07:29 US gallbladder CLINICAL HISTORY: RUQ pain, worse after eating, hx same. COMPARISON: None. TECHNIQUE: Multiple grayscale and color images of the right upper quadrant of the abdomen. FINDINGS: The study is limited by overlying bowel gas. Pancreas: The imaged portion of the pancreas is within normal limits with no focal mass or peripancreatic fluid collection identified. Liver: The liver is homogeneous in echogenicity There is no evidence for a focal mass. There is no intrahepatic biliary duct dilatation. Gallbladder: The gallbladder is well distended with no evidence of cholelithiasis, wall thickening or pericholecystic edema. However, there is mobile sludge within the gallbladder. Common Bile Duct: (CBD): It is normal in size measuring 5 mm. However, there is question of minimal sludge within the common bile duct as well. Inferior Vena Cava (IVC): The imaged IVC is patent. Right kidney: There is no evidence for hydronephrosis, calculus or gross renal mass. The kidney is normal in size. IMPRESSION: 1. Limited examination with sludge present within the gallbladder. 2. There is also suspicion of sludge within the common bile duct without dilatation of the common bile duct. ACT 112: Negative or not required by law. Electronically signed by: Richard Ortega M.D. 02/08/2022 8:52 AM Chest X-Ray 02/08/22 09:37 XR chest 1V portable CLINICAL HISTORY: Atypical chest pain. COMPARISON STUDY: Chest CT January 19, 2022. FINDINGS: Lung volumes are mildly diminished. There is no pneumothorax or pl eural effusion. Minimal left basilar opacity favors atelectasis. No consolidation to suggest pneumonia. Cardiac size is within normal limits on this hypoventilatory AP study. IMPRESSION: No acute cardiopulmonary findings. ACT 112: Negative or not required by law. Electronically signed by: Lukas Duke M.D. 02/08/2022 10:13 AM Code Status & VTE Plan Code Status Full Code. VTE Prophylaxis Plan VTE Prophylaxis will be ordered: Yes Supervising Physician Co-Signing Physician Notes PA Supervision Note: I personally saw and examined the patient. I verified all hines points and agree with FABIANA Phipps with the following exceptions and/or additions: This patient is a 51-year-old male with a history of recent prolonged ICU hospitalization first here and then [facility] in [place] for acute fulminant liver failure and acute kidney injury requiring temporary hemodialysis. The cause of his liver failure and then hepatorenal syndrome is unclear but was thought perhaps to be due to a preworkout supplement that did include Tylenol although his APAP levels here were negative. He also has been having the same right upper quadrant pain for several weeks which is why he presented back again today because he is unable to tolerate any p.o., has continued significant upper abdominal pain radiating through to the back and shoulder blades. Although his LFTs are improving today except alkaline phosphatase is back up, his lipase is newly elevated at 1999 consistent with pancreatitis. Right upper quadrant ultrasound shows gallbladder sludge and possible sludge in the CBD without dilatation. Fortunately the synthetic function of his liver has improved with normal coags and platelets have recovered to normal. He is chronically anemic but it is stable from discharge from [facility] 1 week ago as per review of their records. He has not had any GI bleeding recently. History and ROS reviewed as above I discussed his case with the GI nurse practitioner and the general surgeon on- call. O- Vitals reviewed Gen: AAOx3, NAD HEENT: Anicteric sclerae, EOMI CV: RRR no mgr nl S1S2 Pulm: CTAB no wcr Abd: +BS soft mildly tender in the upper abdomen right upper quadrant and epigastric region without guarding or rebound tenderness, ND no masses or hernias Ext: No edema, 2+ DP pulses Skin: No rashes, warm/dry Neuro: Full strength throughout Labs and rads reviewed A/M-87-pkt[age]-old male with history noted as above, here with persistent epigastric and right upper quadrant pain with acute pancreatitis. Appreciate GI consultation-plan for EUS and ERCP today to see/rule out choledocholithiasis as cause of pancreatitis Start empiric antibiotics for acute cholecystitis/cholangitis given recent hepatic failure and with recent bacteremia Repeat blood cultures -Check lactate-normal -Follow LFTs, renal function Continue n.p.o. status, IV fluids, pain medicine as needed General surgery consult for cholecystectomy PG Care Time/CCT Total # of Minutes Spent Total Time Spent with Patient: Total time spent is greater than 50% in coordination of care (as documented) at patient's floor/unit and/or counseling patient: Coding Level of Care Code 41755 Initial Inpt Care Lvl 3 Diagnoses Acute pancreatitis K85.90 Acute pancreatitis complication: unspecified Pancreatitis type: unspecified pancreatitis type Fulminant hepatic failure K72.90 Blood clotting disorder D68.9 CKD (chronic kidney disease), stage III N18.3 DM type 2 (diabetes mellitus, type 2) E11.9 Anxiety F41.9 Depression F32.89 Depression Type: other depression Hypertension I10 Acute hyponatremia E87.1 Anemia D64.9 Anemia type: unspecified type Bacteremia R78.81 (1) Anemia Anemia type: unspecified type Qualified Code(s): D64.9 - Anemia, unspecified (2) Depression Depression Type: other depression Qualified Code(s): F32.89 - Other specified depressive episodes (3) Acute pancreatitis Acute pancreatitis complication: unspecified Pancreatitis type: unspecified pancreatitis type Qualified Code(s): K85.90 - Acute pancreatitis without necrosis or infection, unspecified
--- NOTE | 2022-02-08 11:02 | Gastrointestinal Consultation ---
Date of Consultation February 08, 2022 Assessment & Plan (1) Pancreatitis: Pt is a 51 yo male w symptoms of abd pain, n/v, noted to have elevated lipase, LFTs. Recent hx of acute liver and kidney failure suspected to be related to preworkout supplement containing APAP. U/S showed signs of gallb ladder and CBD sludge. ? gallstone pancreatitis. - Keep NPO - Start IV antibiotics - Plan for EGD/EUS with potential ERCP in OR by Dr. Valdivia today - He is on Eliquis for hx of PEs, last dose 7:30a yesterday. Spoke w Dr. Tobias, plan for Kcentra 2000units while pt is in pre-op holding Supervising Physician Co-Signing Physician Notes I saw and evaluated the patient. He had presented in the recent past with significant elevation of his liver associated enzymes thought to be related to medication he presented to the ER this morning with abdominal discomfort persistent elevation of liver enzymes although improved from past and imaging suggestive of biliary sludge. The patient reports he has right-sided abdominal discomfort associate with nausea. Physical examination Patient in mild distress Right upper quadrant tender palpation ImPression patient with a significant elevation of his liver associated enzymes and I think it would be prudent to proceed with upper endoscopy and endoscopic ultrasound to determine if the patient may have process within the biliary tree, imaging which seems to suggest biliary sludge. I think it would be prudent to proceed with upper endoscopy endoscopic ultrasound to screen for evidence of choledocholithiasis. If positive we would then plan for ERCP during the same procedure. I discussed the risks of the procedure with the patient to include bleeding infection perforation pain pancreatitis and need for follow-up studies. History of Present Illness Reason for Consultation: Elevated Lipase Requesting Physician: Dr. Jose Sanchez Attending Physician: Dr. Sahra Valdivia History of Present Illness Pt presented to ED w c/o abd pain, nausea, vomiting. He presented w similar symptoms 3 weeks ago, found at that time to have ARF, liver failure 2/2 pre workout drink which contained APAP. [place] [facility] 02/02. He was stable on DC. However returns today to ED w original symptoms. States he's been having diffuse abd pain, soon after eating. Last food intake was yesterday evening, some soup. On eval, labs notable for anemia, H/H 06/09, Cr 1.8, LFTs: Tbili 10/18, AST/ALT 171/170, Alk phos 364, lipase 2022. He denies tobacco, ETOH, illicit drugs. US: 1. Limited examination with sludge present within the gallbladder. 2. There is also suspicion of sludge within the common bile duct without dilatation of the common bile duct. CXR: negative Allergies Allergy/AdvReac Type Severity Reaction Status Date / Time iodine Allergy Severe THROAT Verified 02/08/22 07:33 SWELLING shellfish derived Allergy Severe THROAT Verified 02/08/22 07:33 SWELLING acetaminophen Allergy Intermediate Chest Pain Verified 02/08/22 07:33 Iodinated Contrast Media Allergy Intermediate swelling Verified 02/08/22 07:33 hydrocodone AdvReac Intermediate GI ISSUES Verified 02/08/22 07:33 Plasma, Human Allergy Severe ANAPHYLAXIS Uncoded 02/08/22 07:33 Home Medications Medication Instructions Recorded Confirmed Type naloxone 4 mg/actuation nasal spray 1 sprays INTRANASAL Q2M PRN ea 07/27/19 02/08/22 History insulin aspart U-100 100 unit/mL 12 unit SQ AC #45 ml 09/19/21 02/08/22 Rx (3 mL) subcutaneous pen (Novolog Flexpen U-100 Insulin aspart) insulin glargine 100 unit/mL (3 50 unit SUBCUT BID #45 ml 09/19/21 02/08/22 Rx mL) subcutaneous pen (Lantus Solostar U-100 Insulin) duloxetine 60 mg capsule,delayed 60 mg PO QAM #30 cap 10/22/21 02/08/22 Rx release duloxetine 20 mg capsule,delayed 20 mg PO QAM #30 cap 01/07/22 02/08/22 Rx release diclofenac sodium 1 % topical gel 2 g TOPICAL QID PRN 02/02/22 02/08/22 History epinephrine 0.3 mg/0.3 mL 0.3 mg IM DIRECTED PRN 02/02/22 02/08/22 History injection, auto-injector apixaban 5 mg tablet (Eliquis) 5 mg PO BID #180 tab 02/06/22 02/08/22 Rx clonazepam 2 mg tablet 2 mg PO BID 30 Days #60 tab 02/06/22 02/08/22 Rx methylphenidate HCl 20 mg tablet 20 mg PO BIDM 30 Days #60 tab 02/06/22 02/08/22 Rx (Ritalin) Patient History Medical History Abnormal EKG 2017 > no further follow up needed per patient Anxiety Blood clotting disorder unsure of specific details > Dr. Azevedo PCP Chest pain CKD (chronic kidney disease), stage III pt denies > says kidneys are normal Depression DM w/o complication type II, uncontrolled Esophagitis Gastrointestinal hemorrhage 2016 > resolved Hemoptysis resolved History of pleural effusion 2013> [facility] Hypertension Hypertriglyceridemia Insomnia Lesion of liver just watching > Dr. Azevedo Myalgia and myositis Obesity Precordial chest pain resolved Pulmonary embolism 4 total> last one 2016> Eliquis > came to [facility] Seafood allergy Transaminitis Uncontrolled type 2 diabetes mellitus with insulin therapy Vitamin D deficiency Surgical History History of cardiac cath 2016 due to chest pain> was clear per patient> no stents> [facility] History of colonoscopy History of esophagogastroduodenoscopy (EGD) History of shoulder surgery (~11/2019) left Hx of surgical procedure colorectal for fissure S/P arthroscopy of shoulder 07/23/19 Dr. Cortes Carranza- Left shoulder arthroscopy with superior labrum anterior to posterior repair; Debridement of glenoid labrum; Synovectomy; Subacromial decompression with acromioplasty; Distal clavicle excision with excision of 10 mm of distal clavicle. Family History Mother , s/p brain aneurysm Aneurysm Other Hypertension Denies family history of Ovarian cancer Prostate cancer Myocardial infarction Breast cancer Colorectal cancer Social History Smoking Status: Never smoker Second Hand Exposure: No; Hx Alcohol Use: No Hx Substance Use: No Preferred Language: Croatian Communication Ability: Effective Visual Impairment: No Limitations Hearing Ability: Normal Die Equipment Operator Required: No Beliefs That Will Affect Care: None marital status: Single Current Living Situation: Alone current occupational status: disabled Feels Safe at Home: Yes Childhood Exposure to Second-Hand Smoke: No Dental Care, Regularly: Yes Physical Activity Frequency: Does not Exercise Seatbelt Use: always Sunscreen Use: No Assistive Devices: None Review of Systems Review of Systems: All systems reviewed & are unremarkable except as noted in HPI & below Physical Exam Constitutional: WD/WN, vitals as above well groomed, cooperative and comfortable Eyes: PERRL, conjunctivae normal, anicteric sclerae ENMT: external ear and nose normal, oropharynx normal Respiratory: normal respiratory effort, lungs clear to auscultation Cardiovascular: RRR, no murmur, no edema Gastrointestinal (Abdomen): Diffuse TTP on abd areas. BS hypoactive Skin: no rashes, warm and dry no jaundice Neurologic: Motor/Sensory: no asterixis Psychiatric: A+Ox3, euthymic affect Lymphatic: no lymphedema Results & Data ([facility]) Vital Signs (Past 12 Hours) Vital Signs Temp Pulse Pulse Resp BP BP Pulse Ox 02/08/22 10:00 82 18 132/78 95 02/08/22 08:19 87 18 137/84 97 02/08/22 07:36 98 02/08/22 06:39 97 H 20 143/91 H 100 02/08/22 06:27 37.2 C 111 H 18 98/64 L 98
[2022-02-08] MEDS ORDERED: PIPERACILL/TAZOBAC CONSULT ACTIVE PRN ×2 (11:07→15:56)
[2022-02-08] MEDS ORDERED: PIPERACILLIN/TAZOBACTAM 4.5 GM/120 ML BAG IV STA (11:27)
--- NOTE | 2022-02-08 11:37 | Anesthesiology Consultation ---
Date of Service February 08, 2022 Assessment & Plan Chart Review Chart Review: Acceptable Risk for Surgery and Patient NOT seen in Pre Admission Testing Consults Requested none ASA [id number] Proposed Anesthesia Anesthesia Type: General History Surgery Operation Date: 02/08/22 14:35 Proposed Procedures p Esophagogastroduodenoscopy - Sahra Valdivia DO s Endoscopic Retrograde Cholangiopancreatogram - DO paula Aguirre Endoscopic Ultrasonography Upper - Sahra Valdivia DO Height/Weight Height: 6 ft 2 in Weight: 119.6 kg Allergies Allergy/AdvReac Type Severity Reaction Status Date / Time iodine Allergy Severe THROAT Verified 02/08/22 07:33 SWELLING shellfish derived Allergy Severe THROAT Verified 02/08/22 07:33 SWELLING acetaminophen Allergy Intermediate Chest Pain Verified 02/08/22 07:33 Iodinated Contrast Media Allergy Intermediate swelling Verified 02/08/22 07:33 hydrocodone AdvReac Intermediate GI ISSUES Verified 02/08/22 07:33 Plasma, Human Allergy Severe ANAPHYLAXIS Uncoded 02/08/22 07:33 Medications Home Medications Medication Instructions Recorded Confirmed Last Taken naloxone 4 mg/actuation nasal spray 1 sprays INTRANASAL Q2M PRN ea 07/27/19 02/08/22 02/07/22 insulin aspart U-100 100 unit/mL 12 unit SQ AC #45 ml 09/19/21 02/08/22 02/07/22 (3 mL) subcutaneous pen (Novolog Flexpen U-100 Insulin aspart) insulin glargine 100 unit/mL (3 50 unit SUBCUT BID #45 ml 09/19/21 02/08/22 02/07/22 mL) subcutaneous pen (Lantus Solostar U-100 Insulin) duloxetine 60 mg capsule,delayed 60 mg PO QAM #30 cap 10/22/21 02/08/22 02/07/22 release duloxetine 20 mg capsule,delayed 20 mg PO QAM #30 cap 01/07/22 02/08/22 02/07/22 release diclofenac sodium 1 % topical gel 2 g TOPICAL QID PRN 02/02/22 02/08/22 Unknown epinephrine 0.3 mg/0.3 mL 0.3 mg IM DIRECTED PRN 02/02/22 02/08/22 Unknown injection, auto-injector apixaban 5 mg tablet (Eliquis) 5 mg PO BID #180 tab 02/06/22 02/08/2222 clonazepam 2 mg tablet 2 mg PO BID 30 Days #60 tab 02/06/22 02/08/22 02/07/22 methylphenidate HCl 20 mg tablet 20 mg PO BIDM 30 Days #60 tab 02/06/22 02/08/22 02/07/22 (Ritalin) Past Medical History Medical History Abnormal EKG 2017 > no further follow up needed per patient Anxiety Blood clotting disorder unsure of specific details > Dr. Azevedo PCP Chest pain CKD (chronic kidney disease), stage III pt denies > says kidneys are normal Depression DM w/o complication type II, uncontrolled Esophagitis Gastrointestinal hemorrhage 2016 > resolved Hemoptysis resolved History of pleural effusion 2013> [facility] Hypertension Hypertriglyceridemia Insomnia Lesion of liver just watching > Dr. Azevedo Myalgia and myositis Obesity Precordial chest pain resolved Pulmonary embolism 4 total> last one 2015> Eliquis > came to [facility] Seafood allergy Transaminitis Uncontrolled type 2 diabetes mellitus with insulin therapy Vitamin D deficiency Exercise / Class Metabolic Activity II 4-5 Yardwork/Stairs/Walk up hill Past Family History Family History Mother , s/p brain aneurysm Aneurysm Other Hypertension Denies family history of Ovarian cancer Prostate cancer Myocardial infarction Breast cancer Colorectal cancer Past Surgical History Surgical History History of cardiac cath 2016 due to chest pain> was clear per patient> no stents> [facility] History of colonoscopy History of esophagogastroduodenoscopy (EGD) History of shoulder surgery (~11/2019) left Hx of surgical procedure colorectal for fissure S/P arthroscopy of shoulder 07/23/19 Dr. Cortes Carranza- Left shoulder arthroscopy with superior labrum anterior to posterior repair; Debridement of glenoid labrum; Synovectomy; Subacromial decompression with acromioplasty; Distal clavicle excision with excision of 10 mm of distal clavicle. Past Anesthesia History No Hx of Anesthesia Complications and No Family Hx of Anesthesia Complications History of PONV No Hx of PONV and No Hx of Motion Sickness Social History Smoking Status: Never smoker Hx Alcohol Use: No alcohol intake frequency: holidays/special occasions only Hx Substance Use: No substance use type: does not use Physical Exam Vital Signs Last Vital Signs Temp 37.2 C 02/08/22 06:27 Pulse 82 02/08/22 10:00 Resp 18 02/08/22 10:00 BP 132/78 02/08/22 10:00 Pulse Ox 95 02/08/22 10:00 Testing Laboratory Results 02/08/22 09:43 02/08/22 06:45 PT 11.9 Seconds (9.0-12.0) 02/08/22 09:43 INR 1.1 (0.9-1.1) 02/08/22 09:43 APTT 28.6 Seconds (21.0-31.0) 02/08/22 09:43 Urine Color Yellow 02/08/22 06:45 Urine Appearance Clear (Clear) 02/08/22 06:45 Urine pH 6.0 (4.5-7.5) 02/08/22 06:45 Ur Specific [place] 1.014 (1.000-1.030) 02/08/22 06:45 Urine Protein Negative (Negative) 02/08/22 06:45 Urine Glucose (UA) 3+ (Negative) H 02/08/22 06:45 Urine Ketones Negative (Negative) 02/08/22 06:45 Urine Nitrite Negative (Negative) 02/08/22 06:45 Ur Leukocyte Esterase Negative (Negative) 02/08/22 06:45 02/08/22 10:27 POC Glucose 167 H Electrocardiogram Date: 01/24/22 Findings: + NSR @ (at 89) Chest X-Ray Date: 02/08/22 Findings: + NAD Echocardiogram Date: 01/20/22 EF: 60% LV Function: normal RWMA: + none Other Findings: + LVH and + diastolic dysfunction (grade 1) Valvular Disease: + no significant valvular disease RV cavity mildly dilated
[2022-02-08] MEDS: LACTATED RINGER'S 1,000 ML IV SCH ×3 (11:43→21:56)
[2022-02-08] MEDS ORDERED: KCENTRA (500unit vial) 2000 units IVP IV ONE (12:15)
[2022-02-08] MEDS ORDERED: FLUMAZENIL 0.1 MG/1 ML 10 ML VIAL IV PRN (12:41)
[2022-02-08] MEDS ORDERED: NALOXONE HCL 0.4 MG/1 ML VIAL/CARP IV PRN (12:41)
[2022-02-08] MEDS ORDERED: ONDANSETRON INJ 2 MG/ML 2 ML VIAL IV PRN (12:41)
[2022-02-08] MEDS ORDERED: ATROPINE SULFATE 0.1 MG/ML 10ML SYR IV PRN (12:41)
[2022-02-08] MEDS ORDERED: fentaNYL citrate 100 MCG/2 ML VIAL IV PRN (12:41)
[2022-02-08] MEDS ORDERED: PROMETHAZINE HCL 12.5 MG in SODIUM CHLORIDE 0.9% 50 ML IV PRN (12:41)
[2022-02-08] MEDS ORDERED: LABETALOL HCL IV 5 MG/ML 20ML IV PRN (12:41)
[2022-02-08] MEDS ORDERED: ePHEDrine sulfate 50 MG/ML AMP IV PRN (12:41)
[2022-02-08] MEDS ORDERED: LIDOCAINE 2% 2 ML VIAL/AMP(20MG/ML) INFIL ONE (13:06)
[2022-02-08] MEDS ORDERED: ROCURONIUM BROMIDE 10 MG/ML 5 ML VIAL IV ONE (13:06)
[2022-02-08] MEDS ORDERED: PROPOFOL IV EMULSION 10 MG/ML 20 ML VIAL IV ONE (13:06)
[2022-02-08] MEDS ORDERED: MIDAZOLAM HCL 1 MG/ML 2ML VIAL ONE (13:06)
[2022-02-08] MEDS ORDERED: fentaNYL citrate 100 MCG/2 ML VIAL ONE (13:07)
[2022-02-08] MEDS ORDERED: KETAMINE 50 MG/5 ML SYRINGE ONE (13:26)
--- NOTE | 2022-02-08 13:42 | GI REPORT ---
Patient Name: Jordan Delaney Procedure Date: 02/08/2022 1:34 PM Date of : 1970 Admit Type: Inpatient Age: 51 Gender: Male Attending MD: Sahra Valdivia DO Procedure: Upper GI endoscopy Providers: Sahra Valdivia DO Referring MD: Edgardo Azevedo Indications: Epigastric abdominal pain Medicines: General Anesthesia Complications: No immediate complications. Estimated blood loss: Minimal. Estimated Blood Loss: Estimated blood loss: none. Procedure: Pre-Anesthesia Assessment: - Prior to the procedure, a History and Physical was performed, and patient medications, allergies and sensitivities were reviewed. The patient's tolerance of previous anesthesia was reviewed. - The risks and benefits of the procedure and the sedation options and risks were discussed with the patient. All questions were answered and informed consent was obtained. - Patient identification and proposed procedure were verified prior to the procedure by the physician, the nurse and the geoscience laboratory technician. The procedure was verified in the procedure room. - Pre-procedure physical examination revealed no contraindications to sedation. - ASA Grade Assessment: IV - A patient with severe systemic disease that is a constant threat to life. - After reviewing the risks and benefits, the patient was deemed in satisfactory condition to undergo the procedure. - The anesthesia plan was to use general anesthesia. - Immediately prior to administration of medications, the patient was re-assessed for adequacy to receive sedatives. - The heart rate, respiratory rate, oxygen saturations, blood pressure, adequacy of pulmonary ventilation, and response to care were monitored throughout the procedure. - The physical status of the patient was re-assessed after the procedure. After obtaining informed consent, the endoscope was passed under direct vision. Throughout the procedure, the patient's blood pressure, pulse, and oxygen saturations were monitored continuously. The Endoscope was introduced through the mouth, and advanced to the third part of duodenum. The upper GI endoscopy was accomplished without difficulty. The patient tolerated the procedure well. Findings: The examined esophagus was normal. The Z-line was regular and was found 35 cm from the incisors. The entire examined stomach was normal. The examined duodenum was normal. Impression: - Normal esophagus. - Z-line regular, 35 cm from the incisors. - Normal stomach. - Normal examined duodenum. - No specimens collected. Recommendation: - Perform an upper endoscopic ultrasound (UEUS) today. Sahra Valdivia D.O. Sahra Valdivia, 02/08/2022 1:41:52 PM This report has been signed electronically. Note Initiated On: 02/08/2022 1:34 PM Number of Addenda: 0 I attest to the content of the Intraoperative Record and orders documented therein, exceptions below {[id number]}
[2022-02-08] MEDS ORDERED: ONDANSETRON INJ 2 MG/ML 2 ML VIAL ONE (13:57)
[2022-02-08] MEDS ORDERED: NEOSTIGMINE METHYLSULFATE 1 MG/ML 10ML VIAL ONE (13:57)
[2022-02-08] MEDS ORDERED: GLYCOPYRROLATE 0.2 MG/ML VIAL ONE (13:57)
[2022-02-08] MEDS ORDERED: DEXAMETHASONE SOD INJ 4 MG/ML VIAL ONE (13:57)
[2022-02-08] MEDS ORDERED: LABETALOL HCL IV 5 MG/ML 20ML IV ONE (14:32)
--- NOTE | 2022-02-08 14:44 | Fluoroscopy Report ---
[place] ERCP biliary ductal CLINICAL HISTORY: Right upper quadrant pain. COMPARISON STUDY: Abdominal ultrasound 02/08/2022. FLUOROSCOPY TIME: 26 seconds. FINDINGS: 6 fluoroscopic spot image of the right upper quadrant were submitted. The ampulla was cannu lated and contrast injected into the common bile duct. A main pancreatic duct stent is identified but is not present on the final image and may have been removed. A common bile duct stent was placed and appears in good position. IMPRESSION: Fluoroscopic assistance provided for ERCP as above. ACT 112: Negative or not required by law. Electronically signed by: Pete Lawson M.D. 02/08/2022 2:42 PM
--- NOTE | 2022-02-08 14:54 | Post Operative Brief Note ---
Immediate Post Op Note v1 Date of Surgery February 08, 2022 Pre & Post Diagnosis Operation Date: 02/08/22 14:35 Pre-Op Diagnosis: ABD PAIN,GALL BLADDER Post-Op Diagnosis: NORMAL UPPER ENDOSCOPY COMMON BILE DUCT SLUDGE, GALL BLADDER SLUDGE CHOLELITHIASIS I identified the patient and participated in the time-out.: Yes Procedure Operation Date: 02/08/22 14:35 Actual Procedures p Esophagogastroduodenoscopy - DO paula Aguirre Endoscopic Ultrasonography Upper - DO paula Aguirre Endoscopic Retrograde Cholangiopancreato - Sahra Valdivia DO Surgeon Sahra Valdivia DO Washer Assembler none Estimated Blood Loss 0 Findings Consistent with Post-Op Diagnosis
--- NOTE | 2022-02-08 15:01 | GI REPORT ---
Patient Name: Jordan Delaney Procedure Date: 02/08/2022 1:41 PM Date of : 1970 Admit Type: Outpatient Age: 51 Gender: Male Attending MD: Sahra Valdivia DO Procedure: Upper EUS Providers: Sahra Valdivia DO Referring MD: Edgardo Azevedo Indications: Abnormal ultrasound of the abdomen, Elevated liver enzymes Medicines: General Anesthesia Complications: No immediate complications. Estimated blood loss: Minimal. Estimated Blood Loss: Estimated blood loss was minimal. Procedure: Pre-Anesthesia Assessment: - Prior to the procedure, a History and Physical was performed, and patient medications, allergies and sensitivities were reviewed. The patient's tolerance of previous anesthesia was reviewed. - The risks and benefits of the procedure and the sedation options and risks were discussed with the patient. All questions were answered and informed consent was obtained. - Patient identification and proposed procedure were verified prior to the procedure by the physician, the nurse and the block engraver. The procedure was verified in the procedure room. - Pre-procedure physical examination revealed no contraindications to sedation. - ASA Grade Assessment: IV - A patient with severe systemic disease that is a constant threat to life. - After reviewing the risks and benefits, the patient was deemed in satisfactory condition to undergo the procedure. - The anesthesia plan was to use general anesthesia. - Immediately prior to administration of medications, the patient was re-assessed for adequacy to receive sedatives. - The heart rate, respiratory rate, oxygen saturations, blood pressure, adequacy of pulmonary ventilation, and response to care were monitored throughout the procedure. - The physical status of the patient was re-assessed after the procedure. After obtaining informed consent, the endoscope was passed under direct vision. Throughout the procedure, the patient's blood pressure, pulse, and oxygen saturations were monitored continuously. The Endosonoscope was introduced through the mouth, and advanced to the second part of duodenum. The upper EUS was accomplished without difficulty. Findings: ENDOSONOGRAPHIC FINDING: : There was dilation in the common bile duct which measured up to 8 mm. Moderate hyperechoic material consistent with sludge was visualized endosonographically in the common bile duct. Extensive hyperechoic material consistent with sludge was visualized endosonographically filling a majority of the gallbladder. There was no sign of significant endosonographic abnormality in the visualized portion of the liver. Homogeneous parenchyma, no focal pathology and no pathologic lymphadenopathy were identified. Pancreatic parenchymal abnormalities were noted in the entire pancreas. These consisted of lobularity consistent with acute pancreatitis. No lymphadenopathy seen. There was no sign of significant endosonographic abnormality in the left adrenal gland. No adrenal gland enlargement was identified. Impression: - There was dilation in the common bile duct which measured up to 8 mm. - Hyperechoic material consistent with sludge was visualized endosonographically in the common bile duct. - Hyperechoic material consistent with sludge was visualized endosonographically in the gallbladder. - There was no evidence of significant pathology in the visualized portion of the liver. - Pancreatic parenchymal abnormalities consisting of lobularity were noted in the entire pancreas. - Endosonographic images of the left adrenal gland were unremarkable. - No specimens collected. Recommendation: - Perform an ERCP today. Sahra Valdivia D.O. Sahra Valdivia, 02/08/2022 3:00:37 PM This report has been signed electronically. Note Initiated On: 02/08/2022 1:41 PM Number of Addenda: 0 I attest to the content of the Intraoperative Record and orders documented therein, exceptions below {[id number]}
--- NOTE | 2022-02-08 15:06 | Anesthesiology Progress Note ---
Date of Service February 08, 2022 Anesthesia Post Procedure Vital Signs Vital Signs: Temp Pulse Pulse Resp BP BP Pulse Ox 02/08/22 12:18 37.0 C 88 18 138/84 98 02/08/22 10:00 82 18 132/78 95 02/08/22 08:19 87 18 137/84 97 02/08/22 07:36 98 02/08/22 06:39 97 H 20 143/91 H 100 02/08/22 06:27 37.2 C 111 H 18 98/64 L 98 Pain Intensity Bilateral Abdomen: Pain Intensity: 8 Transfer of Care Handoff Completed per policy Notes Mental Status: alert / awake / arousable Patient Amnestic to Procedure: Yes Nausea / Vomiting: adequately controlled Pain: adequately controlled Airway Patency, RR, SpO2: stable & adequate BP & HR: stable & adequate Hydration State: stable & adequate Anesthetic Complications: no major complications apparent
--- NOTE | 2022-02-08 15:17 | GI REPORT ---
Patient Name: Jordan Delaney Procedure Date: 02/08/2022 1:52 PM Date of : 1970 Admit Type: Outpatient Age: 51 Gender: Male Attending MD: Sahra Valdivia DO Procedure: ERCP Providers: Sahra Valdivia DO Referring MD: Edgardo Azevedo Indications: Common bile duct stone(s) Medicines: Indomethacin 100 mg DE, General Anesthesia Complications: No immediate complications. Estimated Blood Loss: Estimated blood loss was minimal. Procedure: Pre-Anesthesia Assessment: - Prior to the procedure, a History and Physical was performed, and patient medications, allergies and sensitivities were reviewed. The patient's tolerance of previous anesthesia was reviewed. - The risks and benefits of the procedure and the sedation options and risks were discussed with the patient. All questions were answered and informed consent was obtained. - Patient identification and proposed procedure were verified prior to the procedure by the physician, the nurse and the scrap iron loader. The procedure was verified in the procedure room. - Pre-procedure physical examination revealed no contraindications to sedation. - ASA Grade Assessment: IV - A patient with severe systemic disease that is a constant threat to life. - After reviewing the risks and benefits, the patient was deemed in satisfactory condition to undergo the procedure. - The anesthesia plan was to use general anesthesia. - Immediately prior to administration of medications, the patient was re-assessed for adequacy to receive sedatives. - The heart rate, respiratory rate, oxygen saturations, blood pressure, adequacy of pulmonary ventilation, and response to care were monitored throughout the procedure. - The physical status of the patient was re-assessed after the procedure. After obtaining informed consent, the scope was passed under direct vision. Throughout the procedure, the patient's blood pressure, pulse, and oxygen saturations were monitored continuously. The Duodenoscope was introduced through the mouth, and advanced to the duodenum and used to inject contrast into the bile duct and ventral pancreatic duct. The total fluoroscopy exposure time was 24 seconds. The ERCP was somewhat difficult due to challenging cannulation because of papillary stenosis. Successful completion of the procedure was aided by performing the maneuvers documented (below) in this report. Findings: The calculation reviewer film was normal. The esophagus was successfully intubated under direct vision without detailed examination of the pharynx, larynx, and associated structures, and upper GI tract. The upper GI tract was grossly normal. The major papilla was congested. The ventral pancreatic duct was inadvertently cannulated with the short-nosed traction sphincterotome and guidewire without any complications, this was left in place to aid in biliary cannulation with a double wire technique and later place a prophylactic pancreatic stent. The bile duct was deeply cannulated with the short-nosed traction sphincterotome and guidewire. Contrast was injected. I personally interpreted the bile duct images. Contrast extended to the hepatic ducts. The main bile duct was moderately dilated. The largest diameter was 9 mm. The biliary orifice was stenotic. This appeared benign. The lower third of the main bile duct and middle third of the main bile duct contained filling defect(s) thought to be a stone and sludge. Biliary sphincterotomy was made with a monofilament Fusion OMNI sphincterotome using ERBE electrocautery. There was no post-sphincterotomy bleeding. One 5 Fr by 7 cm pancreatic stent with a full external pigtail and no internal flaps was placed 7 cm into the ventral pancreatic duct. Clear fluid flowed through the stent. The stent was in good position. To discover objects, the biliary tree was swept with a 12 mm balloon and 15 mm balloon starting at the bifurcation. Sludge was swept from the duct. One stone was removed. No stones remained. One 10 Fr by 7 cm biliary stent with a single external flap and a single internal flap was placed 7 cm into the common bile duct. Bile flowed through the stent. The stent was in good position. The endoscope was withdrawn from the patient. Impression: - The major papilla appeared congested. - Biliary papillary stenosis, benign. - Choledocholithiasis was found. Complete removal was accomplished by biliary sphincterotomy and balloon extraction. - A biliary sphincterotomy was performed. - One pancreatic stent was placed into the ventral pancreatic duct. - One biliary stent was placed into the common bile duct. Recommendation: - Avoid aspirin and nonsteroidal anti-inflammatory medicines for 1 week. - Clear liquid diet today. - Use broad spectrum antibiotics for 10 days. - Refer to a surgeon to discuss cholecystectomy. Sahra Valdivia D.O. Sahra Valdivia DO 02/08/2022 3:16:43 PM This report has been signed electronically. Note Initiated On: 02/08/2022 1:52 PM Number of Addenda: 0 I attest to the content of the Intraoperative Record and orders documented therein, exceptions below {[id number]}
[2022-02-08] MEDS ORDERED: POLYETHYLENE (MIRALAX) 17 GM PACK PO PRN (15:56)
[2022-02-08] MEDS ORDERED: GLUCAGON FOR INJ 1 MG VIAL SQ PRN (15:56)
[2022-02-08] MEDS ORDERED: MoRPHine SULFATE 2 MG/ML CARP IV PRN (15:56)
[2022-02-08] MEDS ORDERED: GLUCOSE 40% GEL 15 GM TUBE PO PRN (15:56)
[2022-02-08] MEDS ORDERED: GLUCOSE 10 TABS/TUBE PO PRN (15:56)
[2022-02-08] MEDS ORDERED: CARBOHYDRATES FOR HYPOGLYCEMIA PO PRN (15:56)
[2022-02-08] MEDS ORDERED: DEXTROSE 50% 50 ML SYRINGE IV PRN (15:56)
--- NOTE | 2022-02-08 16:05 | Surgery Consultation ---
Date of Consultation February 08, 2022 Assessment & Plan (1) Pancreatitis: Biliary pancreatitis with recent drug-related liver failure. WBC 6, Cr 1.8, Lipase 2,023. He anxious to undergo cholecystectomy although we would prefer he have a longer recovery period if possible. There was not evidence of cholecystitis on ultrasound. We will continue to monitor symptoms, trend white count and lipase, and discuss options with him over the next 24-48 hours. Supervising Physician Co-Signing Physician Notes I personally saw and evaluated the patient with [place] PA-C and agree with the assessment and plan. 51-year-old male with recent fulminant hepatic failure due to acetaminophen overdose, now here with gallstone pancreatitis He scheduled for an ERCP will follow up these results Does not look like he has acute cholecystitis We will continue to follow History of Present Illness Attending Physician: Charley Gallardo MD History of Present Illness 51 y/o male returned to ED today with RUQ pain. He presented with similar symptoms on 01/19/22 and was transferred to [facility] for hepatic failure related to pre workout mix containing acetaminophen. Was discharged from [facility] on 02/02. Today was noted to have sludge in in CBD and pancreatitis and underwent ERCP and stenting this afternoon. We were asked to evaluate for cholecystectomy. Allergies Allergy/AdvReac Type Severity Reaction Status Date / Time iodine Allergy Severe THROAT Verified 02/08/22 07:33 SWELLING shellfish derived Allergy Severe THROAT Verified 02/08/22 07:33 SWELLING acetaminophen Allergy Intermediate Chest Pain Verified 02/08/22 07:33 Iodinated Contrast Media Allergy Intermediate swelling Verified 02/08/22 07:33 hydrocodone AdvReac Intermediate GI ISSUES Verified 02/08/22 07:33 Plasma, Human Allergy Severe ANAPHYLAXIS Uncoded 02/08/22 07:33 Home Medications Medication Instructions Recorded Confirmed Type naloxone 4 mg/actuation nasal spray 1 sprays INTRANASAL Q2M PRN ea 07/27/19 02/08/22 History insulin aspart U-100 100 unit/mL 12 unit SQ AC #45 ml 09/19/21 02/08/22 Rx (3 mL) subcutaneous pen (Novolog Flexpen U-100 Insulin aspart) insulin glargine 100 unit/mL (3 50 unit SUBCUT BID #45 ml 09/19/21 02/08/22 Rx mL) subcutaneous pen (Lantus Solostar U-100 Insulin) duloxetine 60 mg capsule,delayed 60 mg PO QAM #30 cap 10/22/21 02/08/22 Rx release duloxetine 20 mg capsule,delayed 20 mg PO QAM #30 cap 01/07/22 02/08/22 Rx release diclofenac sodium 1 % topical gel 2 g TOPICAL QID PRN 02/02/22 02/08/22 History epinephrine 0.3 mg/0.3 mL 0.3 mg IM DIRECTED PRN 02/02/22 02/08/22 History injection, auto-injector apixaban 5 mg tablet (Eliquis) 5 mg PO BID #180 tab 02/06/22 02/08/22 Rx clonazepam 2 mg tablet 2 mg PO BID 30 Days #60 tab 02/06/22 02/08/22 Rx methylphenidate HCl 20 mg tablet 20 mg PO BIDM 30 Days #60 tab 02/06/22 02/08/22 Rx (Ritalin) Patient History Medical History Abnormal EKG 2017 > no further follow up needed per patient Anxiety Blood clotting disorder unsure of specific details > Dr. Azevedo PCP Chest pain CKD (chronic kidney disease), stage III Depression DM w/o complication type II, uncontrolled Esophagitis Gastrointestinal hemorrhage 2016 > resolved Hemoptysis resolved History of liver failure History of pleural effusion 2013> [facility] Hypertension Hypertriglyceridemia Insomnia Lesion of liver just watching > Dr. Azevedo Myalgia and myositis Obesity Precordial chest pain resolved Pulmonary embolism 4 total> last one 2016> Eliquis > came to [facility] Seafood allergy Transaminitis Uncontrolled type 2 diabetes mellitus with insulin therapy Vitamin D deficiency Surgical History History of cardiac cath 2016 due to chest pain> was clear per patient> no stents> [facility] History of colonoscopy History of esophagogastroduodenoscopy (EGD) History of shoulder surgery (~11/2019) left Hx of surgical procedure colorectal for fissure S/P arthroscopy of shoulder 07/23/19 Dr. Cortes Carranza- Left shoulder arthroscopy with superior labrum anterior to posterior repair; Debridement of glenoid labrum; Synovectomy; Subacromial decompression with acromioplasty; Distal clavicle excision with excision of 10 mm of distal clavicle. Family History Mother , s/p brain aneurysm Aneurysm Other Hypertension Denies family history of Ovarian cancer Prostate cancer Myocardial infarction Breast cancer Colorectal cancer Social History Smoking Status: Never smoker Second Hand Exposure: No; Hx Alcohol Use: No Hx Substance Use: No Preferred Language: Yoruba Communication Ability: Effective Visual Impairment: No Limitations Hearing Ability: Normal Offset Machine Operator Required: No Beliefs That Will Affect Care: None marital status: Single Current Living Situation: Significant Other current occupational status: disabled Other Information That Helps Us Care for You: No Feels Safe at Home: Yes Safety Concerns: Feels Safe At This Time Childhood Exposure to Second-Hand Smoke: No Dental Care, Regularly: Yes Physical Activity Frequency: Does not Exercise Seatbelt Use: always Sunscreen Use: No Assistive Devices: None Review of Systems Constitutional: no fever and no chills Gastrointestinal: + abdominal pain and + nausea; no vomiting Physical Exam Constitutional: WD/WN, vitals as above Gastrointestinal (Abdomen): Inspection/Auscultation: abdomen not distended Percussion/Palpation: + abdomen tender (mild RUQ) and abdomen soft Results & Data ([facility]) Vital Signs (Past 12 Hours) Vital Signs Temp Pulse Pulse Resp BP BP Pulse Ox 02/08/22 15:25 36.8 C 75 21 117/76 98 02/08/22 15:15 75 21 120/87 99 02/08/22 15:05 75 22 129/82 98 02/08/22 14:55 78 25 H 140/83 95 02/08/22 14:45 79 13 128/82 98 02/08/22 14:38 37.0 C 84 18 126/78 95 02/08/22 12:18 37.0 C 88 18 138/84 98 02/08/22 10:00 82 18 132/78 95 02/08/22 08:19 87 18 137/84 97 02/08/22 07:36 98 02/08/22 06:39 97 H 20 143/91 H 100 02/08/22 06:27 37.2 C 111 H 18 98/64 L 98 PG Care Time/CCT Total # of Minutes Spent Total Time Spent with Patient: Total time spent is greater than 50% in coordination of care (as documented) at patient's floor/unit and/or counseling patient: Coding Level of Care Code 14813 Inpt Consult Level 3 Diagnoses Pancreatitis K85.90
[2022-02-08] MEDS: MoRPHine SULFATE 4 MG/ML 1 ML CARP\\VIAL IV PRN ×3 (16:17→21:46)
--- NOTE | 2022-02-08 16:29 | Communication Note ---
Date of Service: February 08, 2022 The patient underwent upper endoscopy endoscopic ultrasound and ultimately ERCP this afternoon. He was found to have evidence of sludge and stone material within the common bile duct. In addition his gallbladder is almost completely filled with thick sludge. Performed ERCP with gallstones and sludge extraction. A prophylactic pancreatic stent was placed and a biliary stent was placed. Recommendations Continue IV hydration May have clear liquids from my standpoint Broad-spectrum antibiotic coverage for total of 10 days Avoid nonsteroidals for 1 week Avoid anticoagulation for 1 week please Consult general surgery to discuss cholecystectomy timing Repeat ERCP in 6 to 8 weeks for biliary stent removal Please call with any questions or concerns over the weekend
[2022-02-08] MEDS ORDERED: METHYLPHENIDATE HCL 5 MG TABLET PO SCH (17:00)
[2022-02-08] MEDS: INSULIN ASPART PER UNIT SC SCH ×2 (18:00→21:55)
[2022-02-08] MEDS: PIPERACILLIN/TAZOBACTAM 3.375 GM in DEXTROSE 5% 100 ML IV SCH (18:11)
[2022-02-08] MEDS: clonazePAM 1 MG TAB PO SCH (21:41)
[2022-02-08] MEDS: INSULIN GLARGINE SOLOSTAR 100 UNITS/ML 3 ML PEN SQ SCH (21:55)
[2022-02-09] MEDS: PIPERACILLIN/TAZOBACTAM 3.375 GM in DEXTROSE 5% 100 ML IV SCH ×3 (01:23→18:41)
[2022-02-09] MEDS: MoRPHine SULFATE 4 MG/ML 1 ML CARP\\VIAL IV PRN ×4 (01:36→14:26)
[2022-02-09] MEDS: LACTATED RINGER'S 1,000 ML IV SCH ×2 (02:19→09:36)
[2022-02-09] MEDS ORDERED: diphenhydrAMINE Capsule 25 MG CAP PO PRN (03:59)
--- NOTE | 2022-02-09 05:57 | Surgery Progress Note ---
Date of Service February 09, 2022 Assessment & Plan (1) Pancreatitis: Plan: Patient has been admitted by the hospitalist. He has undergone an ERCP on 02/08/2022 revealing choledocholithiasis. From a surgical perspective we recommend proceeding as follows: Continue analgesics Continue antiemetics Continue antibiotics in form of Zosyn Continue IV fluid for hydration Continue n.p.o. status Continue to follow serial labs We will consider performing cholecystectomy once his pancreatitis has improved/resolved Admission and Anticipated Discharge Date Admission Date: February 08, 2022 Supervising Physician Co-Signing Physician Notes I personally saw and evaluated the patient with Gene Lee PA-C and agree with the assessment and plan. 51-year-old male with recent fulminant hepatic failure due to acetaminophen overdose, now here with gallstone pancreatitis status post ERCP ERCP results and images noted He still having a decent mount of pain from his pancreatitis Okay to advance to clear liquids for today Plan will be to have him follow-up as an outpatient a week or 2 after discharge and set him up electively for cholecystectomy No plans for cholecystectomy this admission Will continue to follow Subjective Patient notes continued pain in his abdomen greatest in the epigastric area and somewhat in the right upper quadrant. He denies any nausea vomiting. No bowel movement or flatus noted Physical Exam Gastrointestinal (Abdomen): Abdomen is soft and nondistended. Patient does have significant pain with palpation in the epigastric area. Results & Data ([facility]) Vital Signs (Past 12 Hours) Vital Signs Temp Pulse Pulse Resp BP Pulse Ox 02/09/22 03:55 36.3 C L 93 H 18 114/63 98 02/08/22 23:48 36.9 C 88 18 122/71 94 02/08/22 23:45 91 H 02/08/22 20:17 36.6 C 72 18 162/86 H 95 PG Care Time/CCT Total # of Minutes Spent Total Time Spent with Patient: Total time spent is greater than 50% in coordination of care (as documented) at patient's floor/unit and/or counseling patient: Coding Level of Care Code 32313 Subseq Hosp Care Lvl 1 Diagnoses Pancreatitis K85.90
[2022-02-09] MEDS: INSULIN GLARGINE SOLOSTAR 100 UNITS/ML 3 ML PEN SQ SCH (08:45)
[2022-02-09] MEDS: INSULIN ASPART PER UNIT SC SCH ×4 (08:45→20:32)
[2022-02-09 09:11] LABS: Basophils # (auto) 0.02 K/uL (0-0.2); Basophils % (auto) 0.2 %; Eosinophils # (auto) 0.01 K/uL (0-0.5); Eosinophils % (auto) 0.1 %; Hematocrit (blood only) 27.9 % (42-52); Hemoglobin 8.8 g/dL (14.0-18.0); Immature Granulocytes # (auto) 0.03 K/uL (0.00-0.02); Immature Granulocytes % (auto) 0.3 %; Lymphocytes # (auto) 0.87 K/uL (1.2-3.4); Lymphocytes % (auto) 7.8 %; Mean Corpuscular Hgb Conc 31.5 g/dL (32-36); Mean Corpuscular Volume 92.1 fL (80-100); Mean Platelet Volume 12.1 fL (7.4-10.4); Monocytes # (auto) 0.37 K/uL (0.11-0.59); Monocytes % (auto) 3.3 %; Neutrophils # (auto) 9.89 K/uL (1.4-6.5); Neutrophils % (auto) 88.3 %; Platelet Count 407 K/uL (130-400); RDW Coefficient of Variation 16.2 % (11.5-14.5); RDW Standard Deviation 54.9 fL (36.4-46.3); Red Blood Count 3.03 M/uL (4.7-6.1); White Blood Count 11.19 K/uL (4.8-10.8)
[2022-02-09 09:25] LABS: INR 1.1 (0.9-1.1); Prothrombin Time 12.1 Seconds (9.0-12.0)
[2022-02-09] MEDS: clonazePAM 1 MG TAB PO SCH ×2 (09:35→20:30)
[2022-02-09] MEDS: DULoxetine HCL 60 MG CAP PO SCH (09:37)
[2022-02-09] MEDS: DULoxetine HCL 20 MG CAP PO SCH (09:37)
[2022-02-09 09:41] LABS: Estimated Average Glucose 192 mg/dl; Hemoglobin A1C 8.3 % (4.5-5.6)
[2022-02-09 09:50] LABS: Albumin Level 3.2 gm/dl (3.4-5.0); BUN Creatinine Ratio 14.1 (10-20); Bilirubin Direct 0.7 mg/dl (0-0.2); Calcium 8.8 mg/dl (8.5-10.1); Creatinine Clr Calc Pharmacy 67.2 ml/min; Est GFR (African American) 48.5 ml/min; Est GFR (Non-African American) 41.8 ml/min; Phosphorus 3.8 mg/dl (2.5-4.9); Potassium 5.6 mmol/L (3.5-5.1); Total Protein 7.9 gm/dl (6.0-8.3)
[2022-02-09] MEDS ORDERED: SODIUM POLYSTYRENE SULFONATE 15G/60ML SUSP PO STA (10:21)
--- NOTE | 2022-02-09 10:32 | Hospitalist Progress Note ---
Date of Service February 09, 2022 Assessment & Plan (1) Acute pancreatitis: Plan: - Elevated lipase (now improving), with abdominal pain consistent with pancreatitis. Secondary to gallstone pancreatitis, RUQ U/S shows gallbladder sludge and CBD sludge. - s/p ERCP 02/08 - biliary papillary stenosis, choledocholithiasis, biliary sphincterectomy and balloon extraction, pancreatic and biliary stents placed. - 10 days of broad spectrum antibiotics, currently on Zosyn - Advanced to clear liquids (emphasized to avoid anything that makes his pain worse), switch IV fluids to NSS @ 125ml/hr - Continue to hold Eliquis for cholecystectomy on Friday - Appreciate general surgery consult - planning on cholecystectomy on Friday (2) Choledocholithiasis with obstruction: Plan: see above (3) Fulminant hepatic failure: Plan: Diagnosis on prior hospitalization. No concern for this currently - Hospitalized 01/19 - 02/02 at [facility], thought to be due to a preworkout mix containing Tylenol. See scanned discharge summary note from 02/02. - AST/ALT 171/170, improving. - Alk phos 364, T bili 1.6. - Coag panel wnl today and platelets back to normal indicating normal synthetic function of the liver -With work-up for gallstone pancreatitis as above (4) Blood clotting disorder: Plan: - 4 blood clots between 2008- 2015, reportedly being evaluated for possible clotting disorder. Without recurrence since starting Eliquis. - Holding Eliquis as above. -SCDs for now for DVT prophylaxis (5) CKD (chronic kidney disease), stage III: Plan: Secondary to biliary obstruction and reduced oral intake. Unknown if new baseline following recent need for CRRT No need for urgent dialysis but will watch potassium closely as increased today. Will give kayexalate and repeat this afternoon Continue IV fluids as above (6) DM type 2 (diabetes mellitus, type 2): Plan: HbA1C 8.3 - Home insulin regimen is basal/bolus with 50 units BID and 12 units with meals. - Increase Lantus back to 30 units BID now eating - Novolog: Goal BSG Range: Low 100 mg/dL, High 140 mg/dL Correction Factor: 10 mg/dL/unit Carbohydrate ratio = 3 g/unit BSGs ACHS if eating, q6h if npo (7) Anxiety: Plan: - Chronic, stable. - Continue Duloxetine - Clonazepam BID. (8) Depression: Plan: Continue duloxetine as above (9) Hypertension: Plan: - Recently on lisinopril, held in setting of [place] and then d/c'd by PCP following reported 60 lb weight loss this month due to prolonged hospitalization. - Slightly hypertensive in ED, likely in setting of pain. - Monitor, can consider adding on a new anti-hypertensive at discharge if patient continues to be hypertensive despite adequate pain control. (10) Acute hyponatremia: Plan: - Switch to NSS as above (11) Anemia: Plan: - Hgb 8.8, on d/c one week ago was 8.6. MCV 93.7 MCHC 31.4. Currently 8.8 today. - No reports of acute bleeding; no hematemesis, hematuria, dark, tarry stools or hematochezia. - Could be due to previous GI bleeding as black stools noted on discharge summary from [facility]; also with recent renal failure requiring dialysis - TIBC 223, transferrin 31% Fe 70 - Folate, B12 normal. - Follow CBC and transfuse PRBCs as needed if hemoglobin less than 7 (12) Bacteremia: Plan: Suspect contaminant from prior hospitalization - Blood cultures from 01/19 here growing alpha Streptococcus-not strep pneumo or Enterococcus in / bottles-it is unclear if this was ever treated once he was transferred to [facility] - Per d/c summary on 02/02, blood cultures were negative. He is afebrile here, VS wnl, repeating blood cultures today prior to Zosyn. - Lactate 1.1. Plan: Diet - clear liquids, T2DM, low fat VTE Prophylaxis - SCDs, hold Eliquis due to planned procedures. - Full Code. Disposition - continue on PCU given severity of illness Admission and Anticipated Discharge Date Admission Date: February 08, 2022 Subjective No nausea or vomiting. Still having epigastric pain. Started on clear liquids by surgery this morning and he has noticed some worsening of pain with liquids other than water. Not yet had a bowel movement. Reports having a lot of urine output. Review of Systems Review of Systems: All systems reviewed & are unremarkable except as noted in Subjective Physical Exam Constitutional: WD/WN, vitals as above + obese ENMT: external ear and nose normal, oropharynx normal Neck: trachea midline, no thyromegaly Respiratory: normal respiratory effort, lungs clear to auscultation Cardiovascular: RRR, no murmur, no edema Gastrointestinal (Abdomen): Inspection/Auscultation: normal bowel sounds Percussion/Palpation: + abdomen tender (generalized but epigastric worst, no guarding or rebound) and abdomen soft; abdomen not rigid Musculoskeletal: no cyanosis or clubbing, extremities motor strength 5/5 Skin: no rashes, warm and dry Neurologic: moves all extremities and awake; not confused Psychiatric: A+Ox3, euthymic affect Genitourinary: no CVA tenderness Results & Data Results & Data ([facility]) Vital Signs (Past 12 Hours) Vital Signs Temp Pulse Pulse Resp BP Pulse Ox 02/09/22 08:03 36.7 C 90 18 115/72 96 02/09/22 03:55 36.3 C L 93 H 18 114/63 98 02/08/22 23:48 36.9 C 88 18 122/71 94 02/08/22 23:45 91 H PG Care Time/CCT Total # of Minutes Spent Total Time Spent with Patient: Total time spent is greater than 50% in coordination of care (as documented) at patient's floor/unit and/or counseling patient: Coding Level of Care Code 24539 Subseq Hosp Care Lvl 3 Diagnoses Acute pancreatitis K85.90 Acute pancreatitis complication: unspecified Pancreatitis type: unspecified pancreatitis type Fulminant hepatic failure K72.90 Blood clotting disorder D68.9 CKD (chronic kidney disease), stage III N18.3 DM type 2 (diabetes mellitus, type 2) E11.9 Anxiety F41.9 Depression F32.89 Depression Type: other depression Hypertension I10 Acute hyponatremia E87.1 Anemia D64.9 Anemia type: unspecified type Bacteremia R78.81 Choledocholithiasis with obstruction K80.51 (1) Anemia Anemia type: unspecified type Qualified Code(s): D64.9 - Anemia, unspecified (2) Depression Depression Type: other depression Qualified Code(s): F32.89 - Other specified depressive episodes (3) Acute pancreatitis Acute pancreatitis complication: unspecified Pancreatitis type: unspecified pancreatitis type Qualified Code(s): K85.90 - Acute pancreatitis without necrosis or infection, unspecified
[2022-02-09] MEDS: MAGNESIUM SULFATE / D5W 1 GM/100 ML BAG IV SCH ×3 (11:29→15:20)
[2022-02-09] MEDS: SODIUM CHLORIDE 0.9% 1000ML 1,000 ML IV SCH ×2 (11:30→18:45)
[2022-02-09] MEDS: HYDROmorphone INJ 1 MG/ML SYRINGE IV PRN ×2 (17:32→21:53)
[2022-02-09 18:03] LABS: Calcium 8.6 mg/dl (8.5-10.1); Creatinine Clr Calc Pharmacy 72.3 ml/min; Est GFR (African American) 52.9 ml/min; Est GFR (Non-African American) 45.7 ml/min; Potassium 4.5 mmol/L (3.5-5.1)
[2022-02-09] MEDS ORDERED: INSULIN GLARGINE SOLOSTAR 100 UNITS/ML 3 ML PEN SQ STA (20:53)
[2022-02-09] MEDS ORDERED: INSULIN GLARGINE SOLOSTAR 100 UNITS/ML 3 ML PEN SQ SCH (21:00)
[2022-02-10] MEDS: PIPERACILLIN/TAZOBACTAM 3.375 GM in DEXTROSE 5% 100 ML IV SCH ×3 (01:53→20:36)
[2022-02-10] MEDS: SODIUM CHLORIDE 0.9% 1000ML 1,000 ML IV SCH ×2 (01:55→12:15)
[2022-02-10] MEDS: HYDROmorphone INJ 1 MG/ML SYRINGE IV PRN ×5 (02:00→20:37)
--- NOTE | 2022-02-10 05:36 | Surgery Progress Note ---
Date of Service February 10, 2022 Assessment & Plan (1) Pancreatitis: Plan: Patient has been admitted by the hospitalist. He has undergone an ERCP on 02/08/2022 revealing choledocholithiasis. From a surgical perspective we recommend proceeding as follows: Continue analgesics Continue antiemetics Continue antibiotics in form of Zosyn Continue IV fluid for hydration Continue clear liquids Continue to follow serial labs Then will be for patient to recover from his acute illness with plans for consideration of elective cholecystectomy as an outpatient Admission and Anticipated Discharge Date Admission Date: February 08, 2022 Supervising Physician Co-Signing Physician Notes I personally saw and evaluated the patient with Gene Lee PA-C and agree with the assessment and plan. 51-year-old male with recent fulminant hepatic failure due to acetaminophen overdose, now here with gallstone pancreatitis status post ERCP His labs are improved, is tolerating clear liquids Can advance his diet slowly as tolerated Plan will be to have him follow-up as an outpatient a week or 2 after discharge and set him up electively for cholecystectomy No plans for cholecystectomy this admission Will continue to follow Subjective Patient notes continued epigastric pain. He denies any nausea or vomiting at the present time. Physical Exam Gastrointestinal (Abdomen): Abdomen is nondistended. Patient did have pain with palpation in the epigastric area. Results & Data ([facility]) Vital Signs (Past 12 Hours) Vital Signs Temp Pulse Pulse Resp BP Pulse Ox 02/10/22 03:58 36.5 C 83 18 104/62 93 02/09/22 23:33 36.5 C 89 18 105/52 L 92 02/09/22 22:20 79 02/09/22 19:38 36.5 C 107 H 18 113/68 93 02/09/22 17:44 92 H PG Care Time/CCT Total # of Minutes Spent Total Time Spent with Patient: Total time spent is greater than 50% in coordination of care (as documented) at patient's floor/unit and/or counseling patient: Coding Level of Care Code 81461 Subseq Hosp Care Lvl 1 Diagnoses Pancreatitis K85.90
[2022-02-10 06:27] LABS: Basophils # (auto) 0.03 K/uL (0-0.2); Basophils % (auto) 0.4 %; Eosinophils # (auto) 0.23 K/uL (0-0.5); Eosinophils % (auto) 2.9 %; Hemoglobin 8.6 g/dL (14.0-18.0); Immature Granulocytes # (auto) 0.02 K/uL (0.00-0.02); Immature Granulocytes % (auto) 0.3 %; Lymphocytes # (auto) 1.94 K/uL (1.2-3.4); Lymphocytes % (auto) 24.7 %; Mean Corpuscular Hemoglobin 29.5 pg (25-34); Mean Corpuscular Hgb Conc 30.7 g/dL (32-36); Mean Corpuscular Volume 95.9 fL (80-100); Mean Platelet Volume 12.4 fL (7.4-10.4); Monocytes # (auto) 0.39 K/uL (0.11-0.59); Neutrophils # (auto) 5.25 K/uL (1.4-6.5); Neutrophils % (auto) 66.7 %; Platelet Count 362 K/uL (130-400); RDW Coefficient of Variation 16.4 % (11.5-14.5); RDW Standard Deviation 57.7 fL (36.4-46.3); Red Blood Count 2.92 M/uL (4.7-6.1); White Blood Count 7.86 K/uL (4.8-10.8)
[2022-02-10 06:59] LABS: Albumin Globulin Ratio 0.7 (0.9-2); Albumin Level 2.9 gm/dl (3.4-5.0); Bilirubin,Total 1.7 mg/dl (0.2-1.0); Calcium 8.4 mg/dl (8.5-10.1); Creatinine Clr Calc Pharmacy 79.6 ml/min; Est GFR (African American) 58.7 ml/min; Est GFR (Non-African American) 50.6 ml/min; Globulin 4.3 gm/dl (2.5-4.0); Magnesium 1.6 mg/dl (1.7-2.4); Potassium 4.5 mmol/L (3.5-5.1); Total Protein 7.2 gm/dl (6.0-8.3)
[2022-02-10] MEDS: INSULIN ASPART PER UNIT SC SCH ×4 (07:57→20:42)
[2022-02-10] MEDS: INSULIN GLARGINE SOLOSTAR 100 UNITS/ML 3 ML PEN SQ SCH ×2 (07:57→20:42)
[2022-02-10] MEDS: DULoxetine HCL 20 MG CAP PO SCH (08:37)
[2022-02-10] MEDS: clonazePAM 1 MG TAB PO SCH ×2 (08:37→20:48)
[2022-02-10] MEDS: DULoxetine HCL 60 MG CAP PO SCH (08:37)
--- NOTE | 2022-02-10 09:39 | Hospitalist Progress Note ---
Date of Service February 10, 2022 Assessment & Plan (1) Acute pancreatitis: Plan: - Elevated lipase (now improving), with abdominal pain consistent with pancreatitis. Secondary to gallstone pancreatitis, RUQ U/S shows gallbladder sludge and CBD sludge. - s/p ERCP 02/08 - biliary papillary stenosis, choledocholithiasis, biliary sphincterectomy and balloon extraction, pancreatic and biliary stents placed. - 10 days of broad spectrum antibiotics, currently on Zosyn - Continue on clear liquids (emphasized to avoid anything that makes his pain worse), reduce IV fluids to NSS @ 80ml/hr - Continue to hold Eliquis for cholecystectomy on Friday - Appreciate general surgery consult - planning on cholecystectomy as outpatient (2) Choledocholithiasis with obstruction: Plan: see above (3) Fulminant hepatic failure: Plan: Diagnosis on prior hospitalization. No concern for this currently - Hospitalized 01/19 - 02/02 at [facility], thought to be due to a preworkout mix containing Tylenol. See scanned discharge summary note from 02/02. - AST/ALT 171/170, improving. - Alk phos 364, T bili 1.6. - Coag panel wnl today and platelets back to normal indicating normal synthetic function of the liver - With work-up for gallstone pancreatitis as above (4) Blood clotting disorder: Plan: - 4 blood clots between 2008- 2015, reportedly being evaluated for possible clotting disorder. Without recurrence since starting Eliquis. - Restart Eliquis now no immediate surgery planned. (5) CKD (chronic kidney disease), stage III: Plan: Secondary to biliary obstruction and reduced oral intake. Unknown if new baseline following recent need for CRRT Potassium 4.5 Continue IV fluids as above (6) DM type 2 (diabetes mellitus, type 2): Plan: HbA1C 8.3 - Home insulin regimen is basal/bolus with 50 units BID and 12 units with meals. - Continue Lantus 30 units BID now eating - Novolog: Goal BSG Range: Low 100 mg/dL, High 140 mg/dL Correction Factor: 10 mg/dL/unit Carbohydrate ratio = 3 g/unit BSGs ACHS if eating, q6h if npo (7) Anxiety: Plan: - Chronic, stable. - Continue Duloxetine - Clonazepam BID. (8) Depression: Plan: Continue duloxetine as above (9) Hypertension: Plan: - Recently on lisinopril, held in setting of BRIDGETTE and then d/c'd by PCP following reported 60 lb weight loss this month due to prolonged hospitalization. - Slightly hypertensive in ED, likely in setting of pain. - Monitor, can consider adding on a new anti-hypertensive at discharge if patient continues to be hypertensive despite adequate pain control. (10) Acute hyponatremia: Plan: Resolved - Switched to NSS as above (11) Anemia: Plan: - Hgb 8.8, on d/c one week ago was 8.6. MCV 93.7 MCHC 31.4. Currently 8.8 today. - No reports of acute bleeding; no hematemesis, hematuria, dark, tarry stools or hematochezia. - Could be due to previous GI bleeding as black stools noted on discharge summary from [facility]; also with recent renal failure requiring dialysis - TIBC 223, transferrin 31% Fe 70 - Folate, B12 normal. - Follow CBC and transfuse PRBCs as needed if hemoglobin less than 7 (12) Bacteremia: Plan: Suspect contaminant from prior hospitalization - Blood cultures from 01/19 here growing alpha Streptococcus-not strep pneumo or Enterococcus in / bottles-it is unclear if this was ever treated once he was transferred to [facility] - Per d/c summary on 02/02, blood cultures were negative. He is afebrile here, VS wnl, repeating blood cultures on admission prior to Zosyn. - Lactate 1.1. Plan: Diet - clear liquids, T2DM, low fat VTE Prophylaxis - SCDs, Eliquis 5mg PO BID - Full Code. Disposition - stable for downgrade to med/surg, no abnormal rhythms on telemetry Admission and Anticipated Discharge Date Admission Date: February 08, 2022 Subjective No nausea or vomiting. Still having epigastric pain, no radiation, he reports worse with some liquids but not water. Had a BM yesterday. No fever or chills. Review of Systems Review of Systems: All systems reviewed & are unremarkable except as noted in Subjective Physical Exam Constitutional: WD/WN, vitals as above + obese ENMT: external ear and nose normal, oropharynx normal Neck: trachea midline, no thyromegaly Respiratory: normal respiratory effort, lungs clear to auscultation Cardiovascular: RRR, no murmur, no edema Gastrointestinal (Abdomen): Inspection/Auscultation: normal bowel sounds Percussion/Palpation: + abdomen tender (generalized (improved) but epigastric worst, no guarding or rebound) and abdomen soft; abdomen not rigid Musculoskeletal: no cyanosis or clubbing, extremities motor strength 5/5 Skin: no rashes, warm and dry Neurologic: moves all extremities and awake; not confused Psychiatric: A+Ox3, euthymic affect Results & Data Results & Data ([facility]) Vital Signs (Past 12 Hours) Vital Signs Temp Pulse Pulse Resp BP Pulse Ox 02/10/22 07:58 36.8 C 88 18 116/62 97 02/10/22 07:49 78 02/10/22 03:58 36.5 C 83 18 104/62 93 02/09/22 23:33 36.5 C 89 18 105/52 L 92 02/09/22 22:20 79 PG Care Time/CCT Total # of Minutes Spent Total Time Spent with Patient: Total time spent is greater than 50% in coordination of care (as documented) at patient's floor/unit and/or counseling patient: Coding Level of Care Code 40042 Subseq Hosp Care Lvl 3 Diagnoses Acute pancreatitis K85.90 Acute pancreatitis complication: unspecified Pancreatitis type: unspecified pancreatitis type Choledocholithiasis with obstruction K80.51 Fulminant hepatic failure K72.90 Blood clotting disorder D68.9 CKD (chronic kidney disease), stage III N18.3 DM type 2 (diabetes mellitus, type 2) E11.9 Anxiety F41.9 Depression F32.89 Depression Type: other depression Hypertension I10 Acute hyponatremia E87.1 Anemia D64.9 Anemia type: unspecified type Bacteremia R78.81 (1) Anemia Anemia type: unspecified type Qualified Code(s): D64.9 - Anemia, unspecified (2) Depression Depression Type: other depression Qualified Code(s): F32.89 - Other specified depressive episodes (3) Acute pancreatitis Acute pancreatitis complication: unspecified Pancreatitis type: unspecified pancreatitis type Qualified Code(s): K85.90 - Acute pancreatitis without necrosis or infection, unspecified
[2022-02-10] MEDS: MAGNESIUM SULFATE / D5W 1 GM/100 ML BAG IV SCH ×2 (10:08→12:10)
[2022-02-10] MEDS: APIXABAN 5 MG TABLET PO SCH ×2 (12:11→20:37)
[2022-02-10] MEDS ORDERED: PIPERACILLIN/TAZOBACTAM 3.375 GM in DEXTROSE 5% 100 ML IV ONE (15:30)
[2022-02-10] MEDS: ONDANSETRON INJ 2 MG/ML 2 ML VIAL IV PRN (18:11)
[2022-02-10] MEDS: oxyCODONE HCL IR 5 MG TAB (IMMEDIATE RELEASE) PO PRN (18:48)
[2022-02-11] MEDS: oxyCODONE HCL IR 5 MG TAB (IMMEDIATE RELEASE) PO PRN ×2 (00:51→08:02)
[2022-02-11] MEDS: ONDANSETRON INJ 2 MG/ML 2 ML VIAL IV PRN ×2 (00:54→08:10)
[2022-02-11] MEDS: HYDROmorphone INJ 1 MG/ML SYRINGE IV PRN ×2 (04:00→10:53)
[2022-02-11] MEDS: PIPERACILLIN/TAZOBACTAM 3.375 GM in DEXTROSE 5% 100 ML IV SCH (04:00)
[2022-02-11 07:48] LABS: Basophils # (auto) 0.04 K/uL (0-0.2); Basophils % (auto) 0.9 %; Eosinophils # (auto) 0.29 K/uL (0-0.5); Eosinophils % (auto) 6.3 %; Hematocrit (blood only) 26.2 % (42-52); Hemoglobin 8.1 g/dL (14.0-18.0); Lymphocytes # (auto) 1.87 K/uL (1.2-3.4); Lymphocytes % (auto) 40.3 %; Mean Corpuscular Hemoglobin 29.5 pg (25-34); Mean Corpuscular Hgb Conc 30.9 g/dL (32-36); Mean Corpuscular Volume 95.3 fL (80-100); Mean Platelet Volume 11.9 fL (7.4-10.4); Monocytes # (auto) 0.32 K/uL (0.11-0.59); Monocytes % (auto) 6.9 %; Neutrophils # (auto) 2.12 K/uL (1.4-6.5); Neutrophils % (auto) 45.6 %; Platelet Count 297 K/uL (130-400); RDW Coefficient of Variation 16.4 % (11.5-14.5); RDW Standard Deviation 57.1 fL (36.4-46.3); Red Blood Count 2.75 M/uL (4.7-6.1); White Blood Count 4.64 K/uL (4.8-10.8)
[2022-02-11] MEDS: clonazePAM 1 MG TAB PO SCH (08:03)
[2022-02-11] MEDS: APIXABAN 5 MG TABLET PO SCH (08:03)
[2022-02-11] MEDS: DULoxetine HCL 60 MG CAP PO SCH (08:03)
[2022-02-11] MEDS: DULoxetine HCL 20 MG CAP PO SCH (08:03)
[2022-02-11 08:15] LABS: Albumin Globulin Ratio 0.8 (0.9-2); Albumin Level 2.8 gm/dl (3.4-5.0); BUN Creatinine Ratio 9.6 (10-20); Bilirubin,Total 1.2 mg/dl (0.2-1.0); Calcium 8.2 mg/dl (8.5-10.1); Creatinine Clr Calc Pharmacy 80.1 ml/min; Est GFR (African American) 59.1 ml/min; Globulin 3.7 gm/dl (2.5-4.0); Potassium 4.5 mmol/L (3.5-5.1); Total Protein 6.5 gm/dl (6.0-8.3)
[2022-02-11] MEDS: INSULIN ASPART PER UNIT SC SCH ×2 (09:24→13:09)
[2022-02-11] MEDS: INSULIN GLARGINE SOLOSTAR 100 UNITS/ML 3 ML PEN SQ SCH (09:24)
--- NOTE | 2022-02-11 10:28 | Surgery Progress Note ---
Date of Service February 11, 2022 Assessment & Plan (1) Pancreatitis: Plan: Patient here with gallstone pancreatitis, s/p ERCP on 02/08. Recent hepatic failure requiring hospitalization at [facility] for APAP overdose Labs today WBC 4.6, Lipase 410, Tb 1.2 He may continue on a diet as tolerates. Pain overall improving Will need f/u with his PCP Dr. Azevedo upon discharge for surgical clearance prior to surgery No plans for cholecystectomy while inpt... he may f/u with Dr. Vela next week and we will schedule surgery in the upcoming weeks to continue to allow him to heal from his ailments He may discharge to home when medicine okay. We will sign off, but please call with any questions/concerns. Admission and Anticipated Discharge Date Admission Date: February 08, 2022 Supervising Physician Co-Signing Physician Notes I personally saw and evaluated the patient with Erica Card PA-C and agree with the assessment and plan. 51-year-old male with recent fulminant hepatic failure due to acetaminophen overdose, now here with gallstone pancreatitis status post ERCP He continues to improve slowly and is tolerating a diet Plan will be to have him follow-up as an outpatient a week or 2 after discharge and set him up electively for cholecystectomy No plans for cholecystectomy this admission Please call with any questions or concerns Subjective Patient is feeling better, but still having some mild abdominal pain and nausea. He did eat a little bit of food for bfast, no emesis. Physical Exam Physical Exam: awake/alert Gastrointestinal (Abdomen): Percussion/Palpation: + abdomen tender and abdomen soft Results & Data ([facility]) Vital Signs (Past 12 Hours) Vital Signs Temp Pulse Resp BP Pulse Ox 02/11/22 07:46 36.6 C 70 16 128/78 96 02/10/22 23:12 36.5 C 85 18 125/73 91 PG Care Time/CCT Total # of Minutes Spent Total Time Spent with Patient: Total time spent is greater than 50% in coordination of care (as documented) at patient's floor/unit and/or counseling patient: Coding Level of Care Code 16883 Subseq Hosp Care Lvl 1 Diagnoses Pancreatitis K85.90
[2022-02-11] MEDS ORDERED: AMOXICILLIN/CLAVULANATE 875 MG TAB PO SCH (12:00)
--- NOTE | 2022-02-11 13:24 | Discharge Summary ---
Date of Service February 11, 2022 Admission HPI Per Admitting Provider Mr. Delaney is a 51-year-old male with past medical history of fulminant liver failure with BRIDGETTE on CKD hospitalized from 01/19- 02/02 (see 02/02 scanned discharge summary report) DM2, hypertension, recurrent PEs on Eliquis, depression, anxiety, and ADHD who presents today with right upper quadrant pain. This was actually the patient's presenting symptom in our ED 01/19 he was diagnosed with liver failure, he was transferred to [facility] for further management, and states they were not able to operate on his gallbladder at the time due to his liver and kidney function. Since discharge 6 days ago, his right upper quadrant pain has not acutely however it persists, and is migrating to his back and right side as well as bilateral shoulders. He has constantly been nauseous and unable to eat much. The largest meal he has had over the past 6 days is a salad, and he was very nauseous after this. He says he had 1 or 2 episodes of emesis earlier this week, otherwise has not been vomiting, no hematemesis. Bowel movements unchanged, although he has had been having less as he is not eating. No dark tarry stools, no jomar red blood, diarrhea. Without urinary symptoms, no dysuria or hematuria. No fever/chills, weakness, chest pain, SOB. Principal Diagnosis Gallstone pancreatitis Discharge Exam Constitutional WD/WN, vitals as above + obese ENMT external ear and nose normal, oropharynx normal Respiratory normal respiratory effort, lungs clear to auscultation Cardiovascular RRR, no murmur, no edema Gastrointestinal (Abdomen) Inspection/Auscultation: normal bowel sounds Percussion/Palpation: + abdomen tender (epigastric (improving), no guarding or rebound) and abdomen soft; abdomen not rigid Musculoskeletal no cyanosis or clubbing, extremities motor strength 5/5 Skin no rashes, warm and dry Neurologic moves all extremities and awake; not confused Psychiatric A+Ox3, euthymic affect Discharge Data Allergies Allergy/AdvReac Type Severity Reaction Status Date / Time iodine Allergy Severe THROAT Verified 02/08/22 07:33 SWELLING shellfish derived Allergy Severe THROAT Verified 02/08/22 07:33 SWELLING acetaminophen Allergy Intermediate Chest Pain Verified 02/08/22 07:33 Iodinated Contrast Media Allergy Intermediate swelling Verified 02/08/22 07:33 hydrocodone AdvReac Intermediate GI ISSUES Verified 02/08/22 07:33 Plasma, Human Allergy Severe ANAPHYLAXIS Uncoded 02/08/22 07:33 Consultations 02/08/22 11:15 ED Decision to Admit Stat 02/08/22 14:20 Consult General Surgery Routine 02/08/22 15:56 Consult Gastroenterology Routine Consult General Surgery Routine Procedures Performed Operation Date: 02/08/22 14:35 Actual Procedures s Endoscopic Ultrasonography Upper - Sahra Valdivia DO s Endoscopic Retrograde Cholangiopancreato - Sahra Valdivia DO p Esophagogastroduodenoscopy - Sahra Valdivia DO Ordered Studies 02/08/22 07:29 US gallbladder Stat IMPRESSION: 1. Limited examination with sludge present within the gallbladder. 2. There is also suspicion of sludge within the common bile duct without dilatation of the common bile duct. 02/08/22 12:30 FL ERCP biliary ductal Routine 02/08/22 13:31 US upper EUS PACS images Routine Hospital Course (1) Acute pancreatitis: Jordan Delaney is a 51 year old male admitted to [facility] from February 08 to February 11, 2022 due to abdominal pain. He was diagnosed with gallstone pancreatitis due to an obstructed biliary duct. This was treated with ERCP with biliary stent insertion performed by Dr. Valdivia on February 08. He received antibiotic prophylaxis initially with Zosyn and switched to Augmentin for a total course of 10 days after ERCP as advised by gastroenterdimitri connolly. He was reviewed by general surgery and wished him to recover from his pancreatitis before cholecystectomy therefore this will be done as an outpatient. LFTs and lipase improved. However he is still having epigastric pain requiring opiates therefore will be switched back to clear liquid diet as he doesn't seen to be tolerating a regular low fat diet. He declined continued admission to monitor his pain therefore he was discharged with instructions on how to slowly advance his diet. He was prescribed oxycodone to help with pain management on discharge. This is a significant decrease from what he had been receiving as an inpatient but he declined continued admission. He was warned regarding the combination of benzodiazepines and opiates however given his recent fulminant liver failure we wish to avoid acetaminophen and NSAIDs. He was advised not to operate any heavy machinery or drive while on these medications. Ritalin discontinued as this has been associated with pancreatitis (likely can be restarted by PCP as pain improves). He was advised to reduce Lantus to 30 units twice a day while on a clear liquid diet and increase back to his usual dosing as his diet normalizes. He was advised to follow-up with his primary care physician in approximately 1 week for clearance for cholecystectomy. He should follow-up with surgery as above in approximately 2 weeks for cholecystectomy. He should follow-up with gastroenterology in 6 to 8 weeks for repeat ERCP and biliary stent removal. (2) Choledocholithiasis with obstruction: (3) Fulminant hepatic failure: Diagnosis on prior hospitalization. No concern for this currently. (4) Blood clotting disorder: (5) CKD (chronic kidney disease), stage III: (6) DM type 2 (diabetes mellitus, type 2): (7) Anxiety: (8) Depression: (9) Hypertension: (10) Acute hyponatremia: (11) Anemia: (12) Bacteremia: Ruled out Total Time Total Time Spent Total Time Spent (In Minutes): 40 Discharge Plan Discharge Items Patient Disposition: Home - Self-Care Reason For Visit: RUQ PAIN, HX OF FULMINANT LIVER FAILURE D/C ONE WK Discharge Diagnosis: Gallstone pancreatitis Activity: Resume your previous activity Non-emergency contact: Primary Care Provider Call non-emergency contact if: you have any medication questions and your symptoms worsen Follow-up/Referrals: Edgardo Azevedo DO [Primary Care Provider] - 02/13/22 9:20 am Clayton Vela DO [Physician] - 02/21/22 10:30 am (Please call to schedule follow up in clinic for surgical planning in 1-2 weeks) Sahra Valdivia DO [Physician] - (Repeat ERCP 6 to 8 weeks for biliary stent removal) Diet: Carb Consistent or DM2, Low Fat and Other - See Diet Comment Diet Comment: Clear liquids Addtl Attending Provider Instructions: You were admitted to [facility] from February 08 to February 11, 2022 due to abdominal pain. You were diagnosed with pancreatitis due to an obstruction of your biliary duct from gallstones. This was treated with ERCP (endoscopic retrograde cholangiopancreatography) with biliary stents insertion performed by Dr. Valdivia on February 08. Recommend you continue on broad-spectrum antibiotics initially on Zosyn during her inpatient admission and will be switched to Augmentin on discharge for a total of 10 days following ERCP (7 further days). Liver function tests and lipase have improved. Concerning is your ongoing epigastric pain requiring opiates. This is concerning for ongoing pancreatic inflammation and recommend you go back on to a clear liquid low-fat diet until follow-up with your primary care physician On discussion with yourself you wish to be discharged. We will provide you with oxycodone for pain. This is a significant decrease to the pain medication you have been receiving during hos pitalization as you have been receiving this as well as Dilaudid therefore I would expect your pain to be less well controlled at home. However, if your pain continues to increase recommend returning to the emergency room. Recommend discontinuing Ritalin as this has been associated with pancreatitis. Recommend reducing your Lantus to 30 units twice a day while on a clear liquid diet. Of note the combination of clonazepam and opiates such as oxycodone increase the risk of sedation, respiratory depression, coma and . Please do not operate any heavy machinery or drive while on these medications. Please follow-up with your primary care physician in approximately 1 week for clearance for cholecystectomy (gallbladder removal) Please follow-up with surgery as above in approximately 2 weeks for cholecystectomy. Please follow-up with gastroenterology in 6 to 8 weeks for repeat ERCP and biliary stent removal. Pending Studies at Discharge: No Stand-Alone Forms: My [employer], Smoking Cessation Medications and DC Order Prescriptions: New amoxicillin-pot clavulanate 875-125 mg tablet 1 tab PO BID 7 Days Qty: 14 RF: 0 oxycodone 5 mg Tablet 5 - 10 mg PO Q4H PRN (Reason: pain) Qty: 60 RF: 0 Continued insulin aspart U-100 [Novolog Flexpen U-100 Insulin] 100 unit/mL (3 mL) insulin pen 12 unit SQ AC Qty: 45 RF: 1 Lantus Solostar U-100 Insulin 100 unit/mL (3 mL) insulin pen 50 unit subcut BID Qty: 45 RF: 1 duloxetine 60 mg capsule,delayed release(DR/EC) 60 mg PO QAM Qty: 30 RF: 11 duloxetine 20 mg capsule,delayed release(DR/EC) 20 mg PO QAM Qty: 30 RF: 11 clonazepam 2 mg tablet 2 mg PO BID 30 Days Qty: 60 RF: 0 Eliquis 5 mg tablet 5 mg PO BID Qty: 180 RF: 1 naloxone 4 mg/actuation spray,non-aerosol 1 sprays intranasal Q2M PRN (Reason: (Drug) Ingestion) RF: 0 epinephrine 0.3 mg/0.3 mL auto-injector 0.3 mg IM DIRECTED PRN (Reason: Allergic Reaction) RF: 0 diclofenac sodium 1 % gel 2 g topical QID PRN (Reason: Pain) RF: 0 Discontinued methylphenidate HCl 20 mg tablet 20 mg PO BIDM RF: 0 Discharge Orders: Discharge Order (Routine); Ordered 02/11/22 Ordered By: Charlie Davis/Other Patient Handouts: Lipase, Managing Type 2 Diabetes, Understanding Pancreatitis, ED Cholecystitis, Confirmed Admission Data Admit Date/Time: 02/08/22 11:07 Attending Provider: Charlie Neumann Admit Provider: Charley Gallardo Primary Care Provider: Edgardo Azevedo Other Providers: Clayton Vela ; Marilee Valdivia ; Charley Gallardo ; Sahra Valdivia Other Interventions: Discharge Summary Assessment (RN) Last Done: 02/11/22 13:56 Coding Level of Care Code D/C DAY MANAGEMENT >30 MINS Diagnoses Acute pancreatitis K85.90 Acute pancreatitis complication: unspecified Pancreatitis type: unspecified pancreatitis type Choledocholithiasis with obstruction K80.51 Fulminant hepatic failure K72.90 Blood clotting disorder D68.9 CKD (chronic kidney disease), stage III N18.3 DM type 2 (diabetes mellitus, type 2) E11.9 Anxiety F41.9 Depression F32.89 Depression Type: other depression Hypertension I10 Acute hyponatremia E87.1 Anemia D64.9 Anemia type: unspecified type Bacteremia R78.81
== END 2022-02-11 14:28 | disposition home or self-care (01) | DRG 444 ==
LOC: ED 06:19 → SUATTDRO 11:07 → 2E 11:07 → ASU 12:40 → 3E 02-10 14:00

== ENCOUNTER 2022-03-06 04:42 | Inpatient (IN) ==
--- NOTE | 2022-03-06 04:57 | Emergency Department Note ---
History of Present Illness General Chief complaint: Unable to Void Stated complaint: HAD SURGERY YESTERDAY, UNABLE TO VOID Time Seen by Provider: 03/06/22 04:53 History of Present Illness Maximum Pain Intensity: 8 This 51-year-old presents to the ER complaining of urinary retention Location: Bladder Quality: Unable to urinate Severity: Moderate Duration: Past 2 days Timing: Started 2 days ago Context: Patient could not urinate and came in Modifying factors: better with nothing; worse with activity No prior history of urinary retention. Patient denies fevers, vomiting, or any other medical problems. He is currently on oxycodone for his recent gallbladder surgery. Home Medications Medication Instructions Recorded Confirmed Type naloxone 4 mg/actuation nasal spray 1 sprays INTRANASAL Q2M PRN ea 07/27/19 03/06/22 History insulin glargine 100 unit/mL (3 50 unit SUBCUT BID #45 ml 09/19/21 03/06/22 Rx mL) subcutaneous pen (Lantus Solostar U-100 Insulin) duloxetine 60 mg capsule,delayed 60 mg PO QAM #30 cap 10/22/21 03/06/22 Rx release duloxetine 20 mg capsule,delayed 20 mg PO QAM #30 cap 01/07/22 03/06/22 Rx release diclofenac sodium 1 % topical gel 2 g TOPICAL QID PRN 02/02/22 03/06/22 History epinephrine 0.3 mg/0.3 mL 0.3 mg IM DIRECTED PRN 02/02/22 03/06/22 History injection, auto-injector clonazepam 2 mg tablet 2 mg PO BID 30 Days #60 tab 02/06/22 03/06/22 Rx insulin aspart U-100 100 unit/mL 0 unit SQ AC 02/26/22 03/06/22 History (3 mL) subcutaneous pen (Novolog Flexpen U-100 Insulin aspart) methylphenidate HCl 20 mg tablet 20 mg PO BID 02/26/22 03/06/22 History oxycodone 5 mg tablet 5 - 10 mg PO .[id number] PRN #12 tab 03/05/22 03/06/22 Rx Allergies Allergy/AdvReac Type Severity Reaction Status Date / Time iodine Allergy Severe THROAT Verified 03/06/22 07:35 SWELLING shellfish derived Allergy Severe THROAT Verified 03/06/22 07:35 SWELLING acetaminophen Allergy Intermediate Chest Pain Verified 03/06/22 18:56 & SOB Iodinated Contrast Media Allergy Intermediate swelling Verified 03/06/22 07:35 hydrocodone AdvReac Intermediate GI ISSUES Verified 03/06/22 07:35 Plasma, Human Allergy Severe ANAPHYLAXIS Uncoded 03/06/22 07:35 Past Med/Surg History Medical History Abnormal EKG 2017 > no further follow up needed per patient Anemia Anxiety Blood clotting disorder unsure of specific details > Dr. Azevedo PCP CKD (chronic kidney disease), stage III no specialist > improving per pt report Depression DM w/o complication type II, uncontrolled Most recent Hgb A1C 7.1 on 02/26/22 Esophagitis Gastrointestinal hemorrhage 2016 > resolved History of liver failure Due to acetaminophen intake per PCP records 01/2022 History of pleural effusion 2013> [facility] Hypertension Hypertriglyceridemia Insomnia Lesion of liver Under observation > Dr. Azevedo Myalgia and myositis Obesity Pancreatitis with biliary duct stent done 02/08/22 PTSD (post-traumatic stress disorder) Pulmonary embolism 4 total> last one 2015> Eliquis Transaminitis Surgical History History of cardiac cath 2016 due to chest pain> was clear per patient> no stents> [facility] History of colonoscopy History of ERCP History of esophagogastroduodenoscopy (EGD) History of shoulder surgery (~11/2019) left Hx laparoscopic cholecystectomy (03/05/22) Laparoscopic Cholecystectomy(Not Applicable) - Clayton Vela, DO Hx of surgical procedure colorectal for fissure S/P arthroscopy of shoulder 07/23/19 Dr. Cortes Carranza- Left shoulder arthroscopy with superior labrum anterior to posterior repair; Debridement of glenoid labrum; Synovectomy; Subacromial decompression with acromioplasty; Distal clavicle excision with excision of 10 mm of distal clavicle. Family History Mother , s/p brain aneurysm Aneurysm Other Hypertension Denies family history of Ovarian cancer Prostate cancer Myocardial infarction Breast cancer Colorectal cancer Social History Smoking Status: Never smoker Second Hand Exposure: No; Hx Alcohol Use: No (Former alcohol use - long time ago) Hx Substance Use: No Preferred Language: Maltese Communication Ability: Effective Visual Impairment: No Limitations Hearing Ability: Normal Vice President Education Required: No Beliefs That Will Affect Care: None marital status: Single Current Living Situation: Alone current occupational status: disabled Other Information That Helps Us Care for You: No Feels Safe at Home: Yes Safety Concerns: Feels Safe At This Time Childhood Exposure to Second-Hand Smoke: No Dental Care, Regularly: Yes Physical Activity Frequency: Does not Exercise Seatbelt Use: always Sunscreen Use: No Assistive Devices: None Review of Systems A total of 10 systems reviewed and were otherwise negative Physical Exam Vital Signs Vital Signs - 24 hr 03/06/22 04:45 03/06/22 06:45 03/06/22 08:00 Temperature 37.4 C 37.3 C Temperature Source Oral Oral Pulse Rate 122 H Pulse Rate [Finger] 105 H 106 H Pulse Rhythm [Finger] Regular Pulse Strength [Finger] Normal Respiratory Rate 20 18 18 Respiratory Effort / Characteristics Non-Labored Spontaneous Non-Labored Spontaneous Respiratory Depth Normal Normal Respiratory Pattern Regular Regular Blood Pressure 136/79 Blood Pressure [Right Arm] 128/84 137/79 Blood Pressure Mean 98 Blood Pressure Mean [Right Arm] 98 98 Blood Pressure Position [Right Arm] Lying Lying Pulse Oximetry 95 98 97 Oxygen Delivery Method Room Air Room Air Room Air Sepsis Recent Fever Within 48 Hours No Sepsis New/Unexplained Change in Mental Status N/A Sepsis Action Taken by Nursing No Action Required 03/06/22 08:30 Temperature Temperature Source Pulse Rate Pulse Rate [Finger] 104 H Pulse Rhythm [Finger] Pulse Strength [Finger] Normal Respiratory Rate 24 Respiratory Effort / Characteristics Non-Labored Spontaneous Respiratory Depth Normal Respiratory Pattern Regular Blood Pressure Blood Pressure [Right Arm] 121/75 Blood Pressure Mean Blood Pressure Mean [Right Arm] 90 Blood Pressure Position [Right Arm] Lying Pulse Oximetry 96 Oxygen Delivery Method Room Air Sepsis Recent Fever Within 48 Hours Sepsis New/Unexplained Change in Mental Status Sepsis Action Taken by Nursing VITALS: Vitals are noted on the nurse's note and reviewed by myself. Vital signs stable. GENERAL: Pleasant male pacing the room who appears in pain, in no acute distress, nondiaphoretic, well-developed well-nourished. SKIN: The skin was without rashes, erythema, edema, or bruising. There is no tenting of the skin. Capillary reflex less than 2 seconds. HEAD: Normocephalic atraumatic. EARS: External auditory canals clear, EYES: Pupils equal round and reactive to light and accommodation. Conjunctivae without injection, sclerae without icterus. Extraocular movements intact. NOSE: Patent, turbinates without inflammation or discharge. MOUTH: Mucous membranes moist. Pharynx without erythema or exudate. Uvula midline. Airway patent. Tongue does not deviate. NECK: Supple without nuchal rigidity. No lymphadenopathy. No thyromegaly. Cervical spine is nontender. No JVD. HEART: Regular rate and rhythm LUNGS: Clear to auscultation bilaterally without wheezes, rales or rhonchi. No retractions or accessory muscle use. ABDOMEN: Positive bowel sounds x 4. Normal tympanic percussion. Soft, distended bladder, nontender, without masses or organomegaly. Blair sign negative. No guarding or rebound tenderness. No CVA tenderness MUSCULOSKELETAL: No muscle atrophy, erythema, or edema noted. NEURO: Patient was alert and oriented to person place and time. Normal sensation to light and sharp touch. No focal neurological deficits. Course Administered Medications Clonazepam (Clonazepam 1 Mg Tab) 2 mg PO BID [facility] Stop: 04/05/22 10:14 Last Admin: 03/06/22 20:47 Dose: 2 mg Documented by: [id number] Admin: 03/06/22 11:02 Dose: 2 mg Documented by: [id number] Duloxetine HCl (Duloxetine Hcl 20 Mg Cap) [facility] [place] Stop: 04/05/22 10:29 Last Admin: 03/06/22 11:00 Dose: 20 mg Documented by: [id number] Duloxetine HCl (Duloxetine Hcl 60 Mg Cap) 60 mg PO QAM [facility] Stop: 04/05/22 10:29 Last Admin: 03/06/22 11:00 Dose: 60 mg Documented by: [id number] Sodium Chloride (Nss 1000ml) 1,000 mls @ 125 mls/hr IV .Q8H [facility] Stop: 04/05/22 18:59 Last Admin: 03/06/22 19:48 Dose: 125 mls/hr Documented by: [id number] Ceftriaxone Sodium 2,000 mg/ (Dextrose) 70 mls @ 100 mls/hr IV Q24H [facility]; Protocol Stop: 03/16/22 18:59 Last Infusion: 03/06/22 20:33 Dose: 0 mls/hr Documented by: [id number] Admin: 03/06/22 19:50 Dose: 100 mls/hr Documented by: [id number] Insulin Aspart (Insulin Aspart Per Unit) 0 units SC ACHS [facility]; Protocol Stop: 04/05/22 11:29 Last Admin: 03/06/22 20:47 Dose: Not Given Documented by: [id number] Cosigned by: [id number] Admin: 03/06/22 16:58 Dose: Not Given Documented by: [id number] Admin: 03/06/22 12:17 Dose: 12 units Documented by: [id number] Cosigned by: [id number] Insulin Glargine (Insulin Glargine Solostar 100 Units/Ml 3 Ml Pen) 50 units SQ BID [facility]; Protocol Stop: 04/05/22 11:04 Last Admin: 03/06/22 20:48 Dose: 50 units Documented by: [id number] Cosigned by: [id number] Admin: 03/06/22 11:19 Dose: 50 units Documented by: [id number] Cosigned by: [id number] Morphine Sulfate (Morphine Sulfate 2 Mg/Ml Carp) 2 mg IV Q2H PRN PRN Reason: Pain Stop: 03/20/22 18:47 Last Admin: 03/06/22 19:47 Dose: 2 mg Documented by: [id number] Oxycodone HCl (Oxycodone Hcl Ir 5 Mg Tab (Immediate Release)) 5 mg PO Q4H PRN PRN Reason: Pain Stop: 03/20/22 09:59 Last Admin: 03/06/22 15:50 Dose: 5 mg Documented by: [id number] Admin: 03/06/22 11:00 Dose: 5 mg Documented by: [id number] Tamsulosin HCl (Tamsulosin Hcl 0.4 Mg Cap) 0.4 mg PO HS [facility] Stop: 04/05/22 20:59 Last Admin: 03/06/22 20:47 Dose: 0.4 mg Documented by: [id number] Discontinued Medications Ciprofloxacin (Ciprofloxacin 500 Mg Tab) 500 mg PO BID [facility]; Protocol Stop: 03/16/22 10:29 Last Admin: 03/06/22 11:00 Dose: 500 mg Documented by: [id number] Sodium Chloride (Nss 1000ml) 1,000 mls @ 999 mls/hr IV .Q1H1M ONE Stop: 03/06/22 06:43 Last Infusion: 03/06/22 07:02 Dose: 0 mls/hr Documented by: [id number] Admin: 03/06/22 05:59 Dose: 999 mls/hr Documented by: [id number] Sodium Chloride (Nss 1000ml) 1,000 mls @ 999 mls/hr IV .Q1H1M ONE Stop: 03/06/22 09:22 Last Infusion: 03/06/22 09:38 Dose: 0 mls/hr Documented by: [id number] Admin: 03/06/22 08:30 Dose: 999 mls/hr Documented by: [id number] Insulin Human Regular 5 units/ (Syringe) 5 mls @ 30 mls/min IV NOW STA Stop: 03/06/22 11:03 Last Admin: 03/06/22 12:14 Dose: 30 mls/min Documented by: [id number] Cosigned by: [id number] Insulin Human Regular (Novolin-R Insulin Per Unit Charge) 5 units IV NOW STA Stop: 03/06/22 07:25 Last Admin: 03/06/22 07:37 Dose: 5 units Documented by: [id number] Cosigned by: [id number] Morphine Sulfate (Morphine Sulfate 4 Mg/Ml 1 Ml Carp\Vial) 4 mg IV NOW STA Stop: 03/06/22 06:52 Last Admin: 03/06/22 06:55 Dose: 4 mg Documented by: [id number] Ondansetron HCl (Ondansetron Inj 2 Mg/Ml 2 Ml Vial) 4 mg IV NOW STA Stop: 03/06/22 06:52 Last Admin: 03/06/22 06:55 Dose: 4 mg Documented by: [id number] Medical Decision Making Medical Records Attestation: I reviewed the patient's medical records. Home Medications Current Medication List: was personally reviewed by me Laboratory Data Attestation: I reviewed the patient's lab results. Result diagrams: 03/06/22 05:55 03/06/22 18:34 Lab Results 03/06/22 03/06/22 03/06/22 Range/Units 05:10 05:37 05:55 WBC 20.12 H (4.8-10.8) K/uL RBC 3.19 L (4.7-6.1) M/uL Hgb 9.2 L (14.0-18.0) g/dL POC Hgb 10.5 L (14.0-18.0) g/dl Hct 28.3 L (42-52) % POC Hct 31 L (42-52) % MCV 88.7 (80-100) fL MCH 28.8 (25-34) pg MCHC 32.5 (32-36) g/dL RDW Std Deviation 45.5 (36.4-46.3) fL RDW Coeff of Lillie 13.9 (11.5-14.5) % Plt Count 174 (130-400) K/uL MPV 12.7 H (7.4-10.4) fL Immature Gran % (Auto) 0.2 % Neut % (Auto) 88.9 % Lymph % (Auto) 4.3 % [place] % (Auto) 6.5 % Eos % (Auto) 0.1 % Baso % (Auto) 0.0 % Neut # (Auto) 17.86 H (1.4-6.5) K/uL Lymph # (Auto) 0.87 L (1.2-3.4) K/uL [place] # (Auto) 1.31 H (0.11-0.59) K/uL Eos # (Auto) 0.02 (0-0.5) K/uL Baso # (Auto) 0.01 (0-0.2) K/uL Immature Gran # (Auto) 0.05 H (0.00-0.02) K/uL POC Sodium 131 L (135-144) mmol/L Sodium (136-145) mmol/L POC Potassium 6.2 H* (3.3-5.0) mmol/L Potassium (3.5-5.1) mmol/L POC Chloride 98 L (101-112) mmol/L Chloride (98-107) mmol/L Carbon Dioxide (21-32) mmol/L POC Total CO2 23 L (24-31) mmol/L Anion Gap (3-11) POC Anion Gap 18.0 (16-25) mmol/L POC BUN 16 (7-18) mg/dl BUN (6-23) mg/dl Creatinine (0.6-1.4) mg/dl POC Creatinine 1.7 H (0.6-1.3) mg/dl Est Cr Clr Drug Dosing ml/min Est GFR ( Amer) ml/min Est GFR (Non-Af Amer) ml/min BUN/Creatinine Ratio (10-20) Glucose (70-99(Fasting)) mg/dl POC Glucose (70-99) mg/dl POC Glucose (other) 338 H (70-99) mg/dl Calcium (8.5-10.1) mg/dl POC Ioniz Calcium Howard 1.13 (1.12-1.32) mmol/l Total Bilirubin (0.2-1.0) mg/dl AST (13-39) U/L ALT (7-52) U/L Alkaline Phosphatase (34-104) U/L Total Protein (6.0-8.3) gm/dl Albumin (3.4-5.0) gm/dl Globulin (2.5-4.0) gm/dl Albumin/Globulin Ratio (0.9-2) Urine Color Yellow Urine Appearance Clear (Clear) Urine pH 5.5 (4.5-7.5) Ur Specific [place] 1.024 (1.000-1.030) Urine Protein Negative (Negative) Urine Glucose (UA) 3+ H (Negative) Urine Ketones Trace H (Negative) Urine Blood Negative (Negative) Urine Nitrite Negative (Negative) Urine Bilirubin Negative (Negative) Urine Urobilinogen Negative (Negative) Ur Leukocyte Esterase Negative (Negative) SARS-CoV-2, RNA, NAAT (NEGATIVE) 03/06/22 03/06/22 03/06/22 Range/Units 05:55 07:00 07:41 WBC (4.8-10.8) K/uL RBC (4.7-6.1) M/uL Hgb (14.0-18.0) g/dL POC Hgb (14.0-18.0) g/dl Hct (42-52) % POC Hct (42-52) % MCV (80-100) fL MCH (25-34) pg MCHC (32-36) g/dL RDW Std Deviation (36.4-46.3) fL RDW Coeff of Lillie (11.5-14.5) % Plt Count (130-400) K/uL MPV (7.4-10.4) fL Immature Gran % (Auto) % Neut % (Auto) % Lymph % (Auto) % [place] % (Auto) % Eos % (Auto) % Baso % (Auto) % Neut # (Auto) (1.4-6.5) K/uL Lymph # (Auto) (1.2-3.4) K/uL [place] # (Auto) (0.11-0.59) K/uL Eos # (Auto) (0-0.5) K/uL Baso # (Auto) (0-0.2) K/uL Immature Gran # (Auto) (0.00-0.02) K/uL POC Sodium (135-144) mmol/L Sodium 129 L (136-145) mmol/L POC Potassium (3.3-5.0) mmol/L Potassium 6.4 H* D (3.5-5.1) mmol/L POC Chloride (101-112) mmol/L Chloride 98 (98-107) mmol/L Carbon Dioxide 25 (21-32) mmol/L POC Total CO2 (24-31) mmol/L Anion Gap 6 (3-11) POC Anion Gap (16-25) mmol/L POC BUN (7-18) mg/dl BUN 16 (6-23) mg/dl Creatinine 1.62 H D (0.6-1.4) mg/dl POC Creatinine (0.6-1.3) mg/dl Est Cr Clr Drug Dosing 74.2 ml/min Est GFR ( Amer) 56.9 ml/min Est GFR (Non-Af Amer) 49.1 ml/min BUN/Creatinine Ratio 9.9 L (10-20) Glucose 317 H* (70-99(Fasting)) mg/dl POC Glucose 336 H* (70-99) mg/dl POC Glucose (other) (70-99) mg/dl Calcium 8.5 (8.5-10.1) mg/dl POC Ioniz Calcium Howard (1.12-1.32) mmol/l Total Bilirubin 1.1 H (0.2-1.0) mg/dl AST 52 H (13-39) U/L ALT 33 (7-52) U/L Alkaline Phosphatase 131 H (34-104) U/L Total Protein 7.3 (6.0-8.3) gm/dl Albumin 3.7 (3.4-5.0) gm/dl Globulin 3.6 (2.5-4.0) gm/dl Albumin/Globulin Ratio 1.0 (0.9-2) Urine Color Urine Appearance (Clear) Urine pH (4.5-7.5) Ur Specific [place] (1.000-1.030) Urine Protein (Negative) Urine Glucose (UA) (Negative) Urine Ketones (Negative) Urine Blood (Negative) Urine Nitrite (Negative) Urine Bilirubin (Negative) Urine Urobilinogen (Negative) Ur Leukocyte Esterase (Negative) SARS-CoV-2, RNA, NAAT NEGATIVE (NEGATIVE) MDM Narrative Prior records/ancillary studies reviewed and summarized above. Nursing notes reviewed. Additional history obtained from nursing. The patient's history was concerning for urinary retention. Differential diagnosis: Etiologies such as UTI, obstruction, metabolic, infection, as well as others were entertained. Physical examination: As above. ER treatment provided: Bladder scan, Jones On reassessment the patient felt better. Diagnostics interpretation by me: The labs revealed leukocytosis, most likely from recent surgery from yesterday Urine not infected Hyperglycemia without DKA Case signed out to oncoming provider pending labs and reevaluation in stable condition. The chart was completed utilizing [employer] Speech voice recognition software. Grammatical errors, random word insertions, pronoun errors, and incomplete sentences are an occassional consequence of this system due to software limitations, ambient noise, and hardware issues. Any formal questions or concerns about the content, text, or information contained within the body of this dictation should be directly addressed to the physician starch treating assistant for clarification. Impression & Plan Acute urinary retention, Acute hyperglycemia Discharge Plan Visit Data Chief Complaint: Unable to Void Stated Complaint: HAD SURGERY YESTERDAY, UNABLE TO VOID ED Provider: Sharee Lebron ED Midlevel Provider: Miranda Robles Discharge Problem: Acute urinary retention, Acute hyperglycemia Patient Disposition: Admitted As Inpatient Condition: Good Discharge Instructions Interventions: ED Discharge Assessment Last Done: 03/06/22 09:34
[2022-03-06] MEDS ORDERED: SODIUM CHLORIDE 0.9% 1000ML 1,000 ML IV ONE ×2 (05:43→08:22)
[2022-03-06 05:50] LABS: iSTAT Creatinine 1.7 mg/dl (0.6-1.3); iSTAT Hemoglobin 10.5 g/dl (14.0-18.0); iSTAT Ionized Calcium 1.13 mmol/l (1.12-1.32); iSTAT Potassium 6.2 mmol/L (3.3-5.0)
[2022-03-06 06:19] LABS: Appearance Urine Clear (Clear); Bilirubin Urine Negative (Negative); Blood Urine Negative (Negative); Color Urine Yellow; Glucose Urine UA 3+ (Negative); Ketones Urine Trace (Negative); Leukocyte Esterase Urine Negative (Negative); Nitrite Urine Negative (Negative); Protein Urine Negative (Negative); Specific Gravity Urine 1.024 (1.000-1.030); Urobilinogen Urine Negative (Negative); pH Urine 5.5 (4.5-7.5)
[2022-03-06 06:31] LABS: Basophils # (auto) 0.01 K/uL (0-0.2); Eosinophils # (auto) 0.02 K/uL (0-0.5); Eosinophils % (auto) 0.1 %; Hematocrit (blood only) 28.3 % (42-52); Hemoglobin 9.2 g/dL (14.0-18.0); Immature Granulocytes # (auto) 0.05 K/uL (0.00-0.02); Immature Granulocytes % (auto) 0.2 %; Lymphocytes # (auto) 0.87 K/uL (1.2-3.4); Lymphocytes % (auto) 4.3 %; Mean Corpuscular Hemoglobin 28.8 pg (25-34); Mean Corpuscular Hgb Conc 32.5 g/dL (32-36); Mean Corpuscular Volume 88.7 fL (80-100); Mean Platelet Volume 12.7 fL (7.4-10.4); Monocytes # (auto) 1.31 K/uL (0.11-0.59); Monocytes % (auto) 6.5 %; Neutrophils # (auto) 17.86 K/uL (1.4-6.5); Neutrophils % (auto) 88.9 %; Platelet Count 174 K/uL (130-400); RDW Coefficient of Variation 13.9 % (11.5-14.5); RDW Standard Deviation 45.5 fL (36.4-46.3); Red Blood Count 3.19 M/uL (4.7-6.1); White Blood Count 20.12 K/uL (4.8-10.8)
[2022-03-06] MEDS ORDERED: ONDANSETRON INJ 2 MG/ML 2 ML VIAL IV STA (06:51)
[2022-03-06] MEDS ORDERED: MoRPHine SULFATE 4 MG/ML 1 ML CARP\\VIAL IV STA (06:51)
[2022-03-06 07:04] LABS: Albumin Level 3.7 gm/dl (3.4-5.0); BUN Creatinine Ratio 9.9 (10-20); Bilirubin,Total 1.1 mg/dl (0.2-1.0); Calcium 8.5 mg/dl (8.5-10.1); Creatinine Clr Calc Pharmacy 74.2 ml/min; Est GFR (African American) 56.9 ml/min; Est GFR (Non-African American) 49.1 ml/min; Globulin 3.6 gm/dl (2.5-4.0); Potassium 6.4 mmol/L (3.5-5.1); Total Protein 7.3 gm/dl (6.0-8.3)
[2022-03-06] MEDS ORDERED: NovoLIN-R INSULIN PER UNIT CHARGE IV STA (07:24)
--- NOTE | 2022-03-06 08:15 | CT Scan Report ---
CT OF THE ABDOMEN AND PELVIS WITHOUT CONTRAST CLINICAL HISTORY: leukocytosis, surgery yesterday, urinary retention COMPARISON STUDY: CT of the abdomen and pelvis February 26, 2022. TECHNIQUE: Axial images of the abdomen and pelvis were obtained without IV contrast. Images were revi ewed in the axial, sagittal, and coronal planes. Automated exposure control was utilized for the gila dy. A dose lowering technique was utilized adhering to the principles of ALARA. FINDINGS: Linear and ground glass opacities within the lower lungs reflect atelectasis. A small amoun t of pneumoperitoneum is noted. This also extraperitoneal gas and gas within the abdominal wall. Thes e findings are not unexpected in the early postoperative setting. A biliary stent is in place. Fluid and stranding within the cholecystectomy bed is noted. No drainable fluid collection is present. Eval uation of the abdomen and pelvis is suboptimal on this unenhanced exam. Slight nodularity of the live r surface is noted. There is no biliary or pancreatic ductal dilatation. No peripancreatic infiltrati on. The spleen, adrenal glands and kidneys are normal. There is no hydronephrosis. There are no urina ry calculi. Bladder is decompressed, containing a Jones balloon. There is bladder wall thickening. Th ere is trace gas within the bladder. Prostate is enlarged, measuring 5.2 cm in transverse dimension. There are few prominent fluid-filled loops of proximal small bowel. Colonic diverticulosis is noted w ithout evidence for acute diverticulitis. The appendix is normal. IMPRESSION: 1. Fluid and stranding within the cholecystectomy bed. Although nonspecific, this finding is not unex pected in the early postoperative setting. No drainable fluid collection. 2. Pneumoperitoneum and gas within the anterior abdominal wall which is postsurgical. 3. Common bile duct stent in place. No biliary ductal dilatation. 4. Jones balloon within the bladder which is collapsed. Enlarged prostate. No hydronephrosis. No urin winnie calculi. 5. A few prominent fluid-filled loops of proximal small bowel. These findings do not suggest a bowel obstruction. ACT 112: Negative or not required by law. Electronically signed by: Lukas Duke M.D. 03/06/2022 8:13 AM
[2022-03-06] MEDS ORDERED: METHYLPHENIDATE HCL 10 MG TABLET PO SCH (10:15)
[2022-03-06] MEDS ORDERED: CIPROFLOXACIN 500 MG TAB PO SCH (10:30)
[2022-03-06] MEDS ORDERED: APIXABAN 5 MG TABLET PO SCH (10:30)
[2022-03-06] MEDS: oxyCODONE HCL IR 5 MG TAB (IMMEDIATE RELEASE) PO PRN ×2 (11:00→15:50)
[2022-03-06] MEDS: DULoxetine HCL 20 MG CAP PO SCH (11:00)
[2022-03-06] MEDS: DULoxetine HCL 60 MG CAP PO SCH (11:00)
[2022-03-06] MEDS ORDERED: PHARMACY GLYCEMIC MGMT CONSULT PRN (11:01)
[2022-03-06] MEDS ORDERED: INSULIN HUMAN REGULAR PER UNIT 5 UNITS in SYRINGE 4.95 ML IV STA (11:02)
[2022-03-06] MEDS: clonazePAM 1 MG TAB PO SCH ×2 (11:02→20:47)
[2022-03-06] MEDS ORDERED: DEXTROSE 50% 50 ML SYRINGE IV PRN (11:15)
[2022-03-06] MEDS ORDERED: GLUCOSE 10 TABS/TUBE PO PRN (11:15)
[2022-03-06] MEDS ORDERED: CARBOHYDRATES FOR HYPOGLYCEMIA PO PRN (11:15)
[2022-03-06] MEDS ORDERED: GLUCOSE 40% GEL 15 GM TUBE PO PRN (11:15)
[2022-03-06] MEDS ORDERED: GLUCAGON FOR INJ 1 MG VIAL IM PRN (11:15)
[2022-03-06] MEDS: INSULIN GLARGINE SOLOSTAR 100 UNITS/ML 3 ML PEN SQ SCH ×2 (11:19→20:48)
[2022-03-06] MEDS: INSULIN ASPART PER UNIT SC SCH ×3 (12:17→20:47)
--- NOTE | 2022-03-06 13:40 | Urology Consultation ---
Date of Consultation March 06, 2022 Assessment & Plan (1) Acute urinary retention: 51yo M who is s/p laparoscopic cholecystectomy yesterday (03/05) admitted with acute urinary retention, BRIDGETTE, hyperkalemia. - Urology consulted for urinary retention. - Jones catheter placed in ED with 1200ml of urine output. Currently draining clear yellow urine. - CT abdomen pelvis reviewed - Collapsed bladder, enlarged prostate, no hydronephrosis or urinary calculi. - Urinary retention likely due to underlying bladder outlet obstruction from enlarged prostate exacerbated by recent anesthesia. - Pt afebrile, hemodynamically stable. - Labs reviewed - Wbc 20.12, Creatinine 1.62. PSA (02/26/22)- 7.17. - Urinalysis with no evidence of infection. UC&S from 02/26 negative for infection. - Maintain Jones catheter until outpatient voiding trial with urology. - Recommend starting Flomax if ok from medical standpoint. - Continue supportive care and management per primary team. - Will arrange outpatient follow-up for voiding trial in 1 week and provider visit with repeat PSA in 1 month. - Patient agreeable to plan, all questions were answered. - Urology will sign off. Please contact us with any additional questions, concerns, or changes in patient status. Supervising Physician Co-Signing Physician Notes Discussed patient with TAMMY. Agree with plan. History of Present Illness Reason for Consultation: urinary retention Attending Physician: Naresh Calabrese History of Present Illness 51yo M with a past medical history including recent hx of acute liver and kidney failure suspected to be related to preworkout supplement containing APAP, DM2, hypertension, recurrent PEs on Eliquis, depression, anxiety, and ADHD admitted with acute urinary retention, BRIDGETTE, hyperkalemia. Chart reviewed. He was admitted initially to [facility] in early January with fulminant hepatic failure due to [id number] supplement containing acetaminophen and was transferred to [facility] at that time. He recovered well and was discharged on 02/02/2022. However he developed epigastric and right upper quadrant pain and was admitted again on 02/08/2022 and was found to have gallstone pancreatitis. He underwent ERCP with biliary and pancreatic stenting at that time and c holedocholithiasis was found. Due to his recent liver failure it was thought that cholecystectomy should be delayed a couple weeks to have him fully recovered from this.He then presented to the ED on 02/26 with c/o nocturia and concerned of prostate infection with his upcoming surgery. His PSA was 7.170 and his creatinine was slightly elevated from baseline at 1.85. He was diagnosed with prostatitis, given IVF, and discharged home on Cipro 500mg BID x 10days. A urine culture was collected and finalized with no growth. He underwent laparoscopic cholecystectomy on 03/[address] Vela and was discharged home. He returned to the ED today (03/06) with complaints of urinary retention and suprapubic discomfort/distention. A Jones catheter was placed with 1200ml of urine output. In ED, he was afebrile and hemodynamically stable. Labs revealed a white count of 20.12, creatinine 1.62, potassium 6.4. He was admitted to medicine service for further management and urology was consulted due to urinary retention. CT abdomen pelvis 03/06/2022 - 1. Fluid and stranding within the cholecystectomy bed. Although nonspecific, this finding is not unexpected in the early postoperative setting. No drainable fluid collection. 2. Pneumoperitoneum and gas within the anterior abdominal wall which is postsurgical. 3. Common bile duct stent in place. No biliary ductal dilatation. 4. Jones balloon within the bladder which is collapsed. Enlarged prostate. No hydronephrosis. No urinary calculi. 5. A few prominent fluid-filled loops of proximal small bowel. These findings do not suggest a bowel obstruction. CT abdomen pelvis 02/26/2022- 1. No urinary calculi or hydronephrosis. 2. No acute process within the abdomen or pelvis on unenhanced exam. 3. Common bile duct stent in place with expected pneumobilia. 4. Nodularity of the liver surface which raises the possibility of cirrhosis. 5. Bladder wall thickening, accentuated by underdistention. Mildly enlarged prostate. Pt examined at bedside this afternoon. Awake, resting in bed on arrival. No acute distress. Reports a significant improvement in lower abdominal/suprapubic pain following catheter placement. Denies back and flank pain. Jones catheter intact, currently draining clear yellow urine. No fevers or chills. Denies nausea or vomiting. Reports some generalized abd discomfort from surgical incisions. Offered no additional complaints at time of exam. Reports he had been noticing mild urinary symptoms over the past year. Symptoms included urinary frequency, nocturia, hesitancy, and slow stream. No hematuria or dysuria. States he was always eventually able to go, but would have trouble initially with starting his stream and felt he had to push/strain at times. He has not seen a urologist in the past. He denies prior urological hx. Denies pertinent family hx. Allergies Allergy/AdvReac Type Severity Reaction Status Date / Time iodine Allergy Severe THROAT Verified 03/06/22 07:35 SWELLING shellfish derived Allergy Severe THROAT Verified 03/06/22 07:35 SWELLING acetaminophen Allergy Intermediate Chest Pain Verified 03/06/22 18:56 & SOB Iodinated Contrast Media Allergy Intermediate swelling Verified 03/06/22 07:35 hydrocodone AdvReac Intermediate GI ISSUES Verified 03/06/22 07:35 Plasma, Human Allergy Severe ANAPHYLAXIS Uncoded 03/06/22 07:35 Home Medications Medication Instructions Recorded Confirmed Type naloxone 4 mg/actuation nasal spray 1 sprays INTRANASAL Q2M PRN ea 07/27/19 03/06/22 History insulin glargine 100 unit/mL (3 50 unit SUBCUT BID #45 ml 09/19/21 03/06/22 Rx mL) subcutaneous pen (Lantus Solostar U-100 Insulin) duloxetine 60 mg capsule,delayed 60 mg PO QAM #30 cap 10/22/21 03/06/22 Rx release duloxetine 20 mg capsule,delayed 20 mg PO QAM #30 cap 01/07/22 03/06/22 Rx release diclofenac sodium 1 % topical gel 2 g TOPICAL QID PRN 02/02/22 03/06/22 History epinephrine 0.3 mg/0.3 mL 0.3 mg IM DIRECTED PRN 02/02/22 03/06/22 History injection, auto-injector clonazepam 2 mg tablet 2 mg PO BID 30 Days #60 tab 02/06/22 03/06/22 Rx insulin aspart U-100 100 unit/mL 0 unit SQ AC 02/26/22 03/06/22 History (3 mL) subcutaneous pen (Novolog Flexpen U-100 Insulin aspart) methylphenidate HCl 20 mg tablet 20 mg PO BID 02/26/22 03/06/22 History oxycodone 5 mg tablet 5 - 10 mg PO .[id number] PRN #12 tab 03/05/22 03/06/22 Rx Patient History Medical History Abnormal EKG 2017 > no further follow up needed per patient Anemia Anxiety Blood clotting disorder unsure of specific details > Dr. Azevedo PCP CKD (chronic kidney disease), stage III no specialist > improving per pt report Depression DM w/o complication type II, uncontrolled Most recent Hgb A1C 7.1 on 02/26/22 Esophagitis Gastrointestinal hemorrhage 2016 > resolved History of liver failure Due to acetaminophen intake per PCP records 01/2022 History of pleural effusion 2013> [facility] Hypertension Hypertriglyceridemia Insomnia Lesion of liver Under observation > Dr. Azevedo Myalgia and myositis Obesity Pancreatitis with biliary duct stent done 02/08/22 PTSD (post-traumatic stress disorder) Pulmonary embolism 4 total> last one 2015> Eliquis Transaminitis Surgical History History of cardiac cath 2016 due to chest pain> was clear per patient> no stents> [facility] History of colonoscopy History of ERCP History of esophagogastroduodenoscopy (EGD) History of shoulder surgery (~11/2019) left Hx laparoscopic cholecystectomy (03/05/22) Laparoscopic Cholecystectomy(Not Applicable) - Clayton Vela, DO Hx of surgical procedure colorectal for fissure S/P arthroscopy of shoulder 07/23/19 Dr. Cortes Carranza- Left shoulder arthroscopy with superior labrum anterior to posterior repair; Debridement of glenoid labrum; Synovectomy; Subacromial decompression with acromioplasty; Distal clavicle excision with excision of 10 mm of distal clavicle. Family History Mother , s/p brain aneurysm Aneurysm Other Hypertension Denies family history of Ovarian cancer Prostate cancer Myocardial infarction Breast cancer Colorectal cancer Social History Smoking Status: Never smoker Second Hand Exposure: No; Hx Alcohol Use: No (Former alcohol use - long time ago) Hx Substance Use: No Preferred Language: Gren[place] Communication Ability: Effective Visual Impairment: No Limitations Hearing Ability: Normal Legal Administrator Required: No Beliefs That Will Affect Care: None marital status: Single Current Living Situation: Alone current occupational status: disabled Other Information That Helps Us Care for You: No Feels Safe at Home: Yes Safety Concerns: Feels Safe At This Time Childhood Exposure to Second-Hand Smoke: No Dental Care, Regularly: Yes Physical Activity Frequency: Does not Exercise Seatbelt Use: always Sunscreen Use: No Assistive Devices: None Review of Systems Review of Systems: All systems reviewed & are unremarkable except as noted in HPI & below Physical Exam Constitutional: well developed and well nourished; no acute distress Neck: normal visual inspection Respiratory: normal respiratory effort; no respiratory distress and no labored breathing Cardiovascular: Extremities: no calf tenderness Gastrointestinal (Abdomen): Percussion/Palpation: + abdomen tender (Mild tenderness with palpation) and abdomen soft; no guarding Surgical dressings intact Musculoskeletal: Head/Neck/Chest: normocephalic Skin: Warm and dry Neurologic: moves all extremities and awake Psychiatric: Orientation: alert, oriented x 3 and cooperative Genitourinary: Jones catheter intact Results & Data ([facility]) Vital Signs (Past 12 Hours) Vital Signs Temp Pulse Pulse Resp BP BP Pulse Ox 03/06/22 10:27 105 H 03/06/22 10:00 37.0 C 111 H 14 136/86 100 03/06/22 09:13 104 H 20 120/70 98 03/06/22 08:59 105 H 20 120/70 99 03/06/22 08:30 104 H 24 121/75 96 03/06/22 08:00 106 H 18 137/79 97 03/06/22 06:45 37.3 C 105 H 18 128/84 98 03/06/22 04:45 37.4 C 122 H 20 136/79 95 PG Care Time/CCT Total # of Minutes Spent Total Time Spent with Patient: Total time spent is greater than 50% in coordination of care (as documented) at patient's floor/unit and/or counseling patient: Coding Level of Care Code 05544 Inpt Consult Level 3 Diagnoses Acute urinary retention R33.8
--- NOTE | 2022-03-06 14:05 | Electrocardiogram Report ---
Test Reason : Blood Pressure : / mmHG Vent. Rate : 108 BPM Atrial Rate : 108 BPM P-R Int : 152 ms QRS Dur : 078 ms QT Int : 340 ms P-R-T Axes : 035 006 -05 degrees QTc Int : 455 ms Sinus tachycardia T wave abnormality, consider inferior ischemia Abnormal ECG When compared with ECG of 26-FEB-2022 13:36, Non-specific change in ST segment in Inferior leads Inverted T waves have replaced nonspecific T wave abnormality in Inferior leads Confirmed by Nasim Gunn ([id number]) on 03/06/2022 2:04:59 PM Referred By: REFERRED SELF Confirmed By:Nasim Gunn
--- NOTE | 2022-03-06 14:58 | Pharmacy Report ---
Pharmacy Glycemic Short Note 2 - Date of Service March 06, 2022 - Glycemic Short BSG Results (Last 24 hours): 03/06/22 03/06/22 03/06/22 05:37 05:55 07:00 Glucose 317 H* POC Glucose 336 H* POC Glucose (other) 338 H 03/06/22 03/06/22 03/06/22 09:54 09:55 11:17 Glucose POC Glucose 323 H* 331 H* 306 H* POC Glucose (other) 03/06/22 11:18 Glucose POC Glucose 306 H* POC Glucose (other) OUTPATIENT ANTIDIABETIC REGIMEN: * Lantus 50 units SQ BID * Novolog 12 units SQ AC * HbA1c = 7.1% (02/26/22) ASSESSMENT: * 51 yo M admitted secondary to urinary retention. Pharmacy has been consulted to assist with inpatient glycemic management. Presented with BSG of 336 mg/dL and potassium of 6.4 mmol/L. He was given 5 units of IV regular insulin in the ED. * BSG upon transfer to the floor was 323 mg/dL. Gave an additional 5 units of IV regular insulin (to equal 10 unit max for hyperkalemia). Spoke with attending who will repeat BMP this afternoon to monitor K. Started home dose of Lantus 50 units BID. Given hyperglycemia, will start Novolog based on weight/stress of 3. Will add overnight checks for the first night. PLAN FOR INPATIENT GLYCEMIC CONTROL: * Basal insulin * Lantus 50 units SQ BID * Bolus insulin * NovoLog per scale ACHS or Q6hrs while NPO * Goal Range: Low 110 mg/dL - High 140 mg/dL * Correction Factor: 15 mg/dL/unit * Nutritional / Prandial insulin per carb ratio of 1 unit per 5 grams CHO consumed
[2022-03-06] MEDS ORDERED: cefTRIAXone SODIUM 2,000 MG in DEXTROSE 5% 50 ML IV SCH ×2 (18:45→20:00)
[2022-03-06 19:08] LABS: BUN Creatinine Ratio 7.9 (10-20); Calcium 8.3 mg/dl (8.5-10.1); Creatinine Clr Calc Pharmacy 95.2 ml/min; Est GFR (African American) 77.1 ml/min; Est GFR (Non-African American) 66.5 ml/min; Potassium 3.8 mmol/L (3.5-5.1)
[2022-03-06] MEDS: MoRPHine SULFATE 2 MG/ML CARP IV PRN (19:47)
[2022-03-06] MEDS: SODIUM CHLORIDE 0.9% 1000ML 1,000 ML IV SCH (19:48)
[2022-03-06] MEDS: cefTRIAXone SODIUM 2,000 MG in DEXTROSE 5% 50 ML IV SCH (19:50)
[2022-03-06] MEDS: TAMSULOSIN HCL 0.4 MG CAP PO SCH (20:47)
--- NOTE | 2022-03-06 21:08 | History & Physical Report ---
Date of Service March 06, 2022 Assessment & Plan (1) Acute urinary retention: Plan: Patient admitted with acute urinary retention causing hyperkalemia, BRIDGETTE. Patient likely has BPH given his age, prostate size from imaging and symptoms. Anticipate his creatinene and potassium will improve with folety catheter. Consulted Urology. Appreciate input. (2) Acute hyperglycemia: Plan: Patient has DM type 2. consult glycemic control (3) Sepsis: Plan: Patient tachycardic and elevated WBC. May be reactive. However as patient did not improve in the afternoon, will treat as a complicated UTI. Placed on IVF. Placed on 2 gr of ceftriaxone due to his body habitus. ordered cultures. (4) Depression: Plan: resume duloxetine (5) DM type 2 (diabetes mellitus, type 2): Plan: glycemic control (6) Anxiety: Plan: continue home meds: clonazepam and duloxetine (7) Blood clotting disorder: Plan: on Eliquis (8) Acute kidney injury superimposed on CKD: Plan: Creatinine is elevated above baseline. Likely postobstructive renal injury. Patient improved on repat BMP. Hyperkalemia also resolved. Admission and Anticipated Discharge Date Admission Date: March 06, 2022 History of Present Illness Chief Complaint: inability to urinate Primary Care Provider: Edgardo Azevedo, DO This is a pleasant 51 yo male with past medical history of: gallstone pancreatitis requiring biliary stent and 10 days of cirpofloxacin on 02/08 to 02/11, fulminant liver failure with BRIDGETTE on CKD hospitalized from 01/19- 02/02 (see 02/02 scanned discharge summary report) DM2, hypertension, recurrent PEs on Eliquis, depression, anxiety, and ADHD who presents today with right upper quadrant pain. The patient also had a cholescystectomy on 03/05. Patient reports having constant moderate dull lower abdominal pain radiates to his perineum and difficulty urinating. This prompted the patient to return to the ER. Patient reports he was told that he may have prostatitis. He had similar symptoms on 02/26. Patient denies any fever chills. In the ED, patient had a kumar placed and 1.4 liters were removed. Labs were drawn patient had a WBC >20K, hyperkalemia >6, and BRIDGETTE. Admission was called Allergies Allergy/AdvReac Type Severity Reaction Status Date / Time iodine Allergy Severe THROAT Verified 03/06/22 07:35 SWELLING shellfish derived Allergy Severe THROAT Verified 03/06/22 07:35 SWELLING acetaminophen Allergy Intermediate Chest Pain Verified 03/06/22 18:56 & SOB Iodinated Contrast Media Allergy Intermediate swelling Verified 03/06/22 07:35 hydrocodone AdvReac Intermediate GI ISSUES Verified 03/06/22 07:35 Plasma, Human Allergy Severe ANAPHYLAXIS Uncoded 03/06/22 07:35 Home Medications Medication Instructions Recorded Confirmed Type naloxone 4 mg/actuation nasal spray 1 sprays INTRANASAL Q2M PRN ea 07/27/19 03/06/22 History insulin glargine 100 unit/mL (3 50 unit SUBCUT BID #45 ml 09/19/21 03/06/22 Rx mL) subcutaneous pen (Lantus Solostar U-100 Insulin) duloxetine 60 mg capsule,delayed 60 mg PO QAM #30 cap 10/22/21 03/06/22 Rx release duloxetine 20 mg capsule,delayed 20 mg PO QAM #30 cap 01/07/22 03/06/22 Rx release diclofenac sodium 1 % topical gel 2 g TOPICAL QID PRN 02/02/22 03/06/22 History epinephrine 0.3 mg/0.3 mL 0.3 mg IM DIRECTED PRN 02/02/22 03/06/22 History injection, auto-injector clonazepam 2 mg tablet 2 mg PO BID 30 Days #60 tab 02/06/22 03/06/22 Rx insulin aspart U-100 100 unit/mL 0 unit SQ AC 02/26/22 03/06/22 History (3 mL) subcutaneous pen (Novolog Flexpen U-100 Insulin aspart) methylphenidate HCl 20 mg tablet 20 mg PO BID 02/26/22 03/06/22 History oxycodone 5 mg tablet 5 - 10 mg PO .[id number] PRN #12 tab 03/05/22 03/06/22 Rx Past Med/Surg History Medical History Abnormal EKG 2016 > no further follow up needed per patient Anemia Anxiety Blood clotting disorder unsure of specific details > Dr. Azevedo PCP CKD (chronic kidney disease), stage III no specialist > improving per pt report Depression DM w/o complication type II, uncontrolled Most recent Hgb A1C 7.1 on 02/26/22 Esophagitis Gastrointestinal hemorrhage 2016 > resolved History of liver failure Due to acetaminophen intake per PCP records 01/2022 History of pleural effusion 2013> [facility] Hypertension Hypertriglyceridemia Insomnia Lesion of liver Under observation > Dr. Azevedo Myalgia and myositis Obesity Pancreatitis with biliary duct stent done 02/08/22 PTSD (post-traumatic stress disorder) Pulmonary embolism 4 total> last one 2016> Eliquis Transaminitis Surgical History History of cardiac cath 2016 due to chest pain> was clear per patient> no stents> [facility] History of colonoscopy History of ERCP History of esophagogastroduodenoscopy (EGD) History of shoulder surgery (~11/2019) left Hx laparoscopic cholecystectomy (03/05/22) Laparoscopic Cholecystectomy(Not Applicable) - Clayton Vela, DO Hx of surgical procedure colorectal for fissure S/P arthroscopy of shoulder 07/23/19 Dr. Cortes Carranza- Left shoulder arthroscopy with superior labrum anterior to posterior repair; Debridement of glenoid labrum; Synovectomy; Subacromial decompression with acromioplasty; Distal clavicle excision with excision of 10 mm of distal clavicle. Family History Mother , s/p brain aneurysm Aneurysm Other Hypertension Denies family history of Ovarian cancer Prostate cancer Myocardial infarction Breast cancer Colorectal cancer Social History Smoking Status: Never smoker Second Hand Exposure: No; Hx Alcohol Use: No (Former alcohol use - long time ago) Hx Substance Use: No Preferred Language: [place] Communication Ability: Effective Visual Impairment: No Limitations Hearing Ability: Normal Communication Electronic Technician Required: No Beliefs That Will Affect Care: None marital status: Single Current Living Situation: Alone current occupational status: disabled Other Information That Helps Us Care for You: No Feels Safe at Home: Yes Safety Concerns: Feels Safe At This Time Childhood Exposure to Second-Hand Smoke: No Dental Care, Regularly: Yes Physical Activity Frequency: Does not Exercise Seatbelt Use: always Sunscreen Use: No Assistive Devices: None Review of Systems Constitutional: no fever and no body aches Eyes: no blind spots and no diplopia Ear, Nose, Mouth, Throat: no ear pain and no ear trauma Respiratory: no cough Gastrointestinal: no abdominal pain Genitourinary: + difficulty urinating and + urinary hesitancy Musculoskeletal: no back pain Integumentary: no acne Neurologic: no gait abnormality Psychiatric: no behavioral changes and no hopelessness Endocrine: no fatigue Hematologic / Lymphatic: no easy bleeding Allergy / Immunological: no GI upset with certain foods Physical Exam Constitutional: WD/WN, vitals as above Eyes: PERRL, conjunctivae normal, anicteric sclerae ENMT: external ear and nose normal, oropharynx normal Neck: trachea midline, no thyromegaly Respiratory: normal respiratory effort, lungs clear to auscultation Cardiovascular: Rate/Rhythm: + tachycardic Heart Sounds: normal S1 and normal S2 Vessels: no JVD Gastrointestinal (Abdomen): Inspection/Auscultation: abdomen normal to inspection (except for recent closed incisions from lap [place]) Percussion/Palpation: + abdomen tender (on RUQ) and abdomen soft Musculoskeletal: no cyanosis or clubbing, extremities motor strength 5/5 Skin: no rashes, warm and dry Neurologic: PERRL, EOMI, accommodation nl, no face palsy, no dysarthria Psychiatric: A+Ox3, euthymic affect Lymphatic: no cervical or axillary lymphadenopathy Results & Data Results & Data ([facility]) Vital Signs (Past 12 Hours) Vital Signs Temp Pulse Pulse Resp BP BP Pulse Ox 03/06/22 19:18 37.8 C H 113 H 18 127/71 92 03/06/22 15:13 37.8 C H 80 18 116/70 100 03/06/22 14:57 106 H 03/06/22 10:27 105 H 03/06/22 10:00 37.0 C 111 H 14 136/86 100 03/06/22 09:13 104 H 20 120/70 98 PG Care Time/CCT Total # of Minutes Spent Total Time Spent with Patient: Total time spent is greater than 50% in coordination of care (as documented) at patient's floor/unit and/or counseling patient: Coding Level of Care Code 41673 Initial Inpt Care Lvl 3 Diagnoses Acute urinary retention R33.8 Acute hyperglycemia R73.9 Depression F32.89 Depression Type: other depression DM type 2 (diabetes mellitus, type 2) E11.9 Anxiety F41.9 Blood clotting disorder D68.9 Sepsis A41.9 Acute kidney injury superimposed on CKD N17.9; N18.9 (1) Depression Depression Type: other depression Qualified Code(s): F32.89 - Other specified depressive episodes
[2022-03-07] MEDS: INSULIN ASPART PER UNIT SC SCH ×6 (00:04→22:09)
[2022-03-07] MEDS: MoRPHine SULFATE 2 MG/ML CARP IV PRN ×4 (00:05→09:58)
[2022-03-07] MEDS: SODIUM CHLORIDE 0.9% 1000ML 1,000 ML IV SCH ×2 (03:46→15:22)
[2022-03-07] MEDS: DULoxetine HCL 60 MG CAP PO SCH (09:04)
[2022-03-07] MEDS: DULoxetine HCL 20 MG CAP PO SCH (09:04)
[2022-03-07] MEDS: clonazePAM 1 MG TAB PO SCH ×2 (09:08→20:57)
[2022-03-07 09:23] LABS: Hematocrit (blood only) 27.4 % (42-52); Hemoglobin 8.8 g/dL (14.0-18.0); Mean Corpuscular Hemoglobin 28.9 pg (25-34); Mean Corpuscular Hgb Conc 32.1 g/dL (32-36); Mean Corpuscular Volume 89.8 fL (80-100); Mean Platelet Volume 12.8 fL (7.4-10.4); Platelet Count 146 K/uL (130-400); RDW Standard Deviation 46.2 fL (36.4-46.3); Red Blood Count 3.05 M/uL (4.7-6.1); White Blood Count 11.42 K/uL (4.8-10.8)
[2022-03-07 09:41] LABS: Albumin Globulin Ratio 0.9 (0.9-2); BUN Creatinine Ratio 7.2 (10-20); Creatinine Clr Calc Pharmacy 108.1 ml/min; Est GFR (African American) 89.9 ml/min; Est GFR (Non-African American) 77.6 ml/min; Globulin 3.3 gm/dl (2.5-4.0); Potassium 3.8 mmol/L (3.5-5.1); Total Protein 6.3 gm/dl (6.0-8.3)
[2022-03-07 10:44] LABS: Appearance Urine Clear (Clear); Bilirubin Urine Negative (Negative); Blood Urine Negative (Negative); Color Urine Yellow; Glucose Urine UA Trace (Negative); Ketones Urine Trace (Negative); Leukocyte Esterase Urine Negative (Negative); Nitrite Urine Negative (Negative); Protein Urine Negative (Negative); Specific Gravity Urine 1.016 (1.000-1.030); Urobilinogen Urine Negative (Negative)
--- NOTE | 2022-03-07 11:37 | Emergency Department Note ---
ED Visit Note I received care of this patient in signout from Mila De Leon PA-C at change of shift. At that time, patient was awaiting laboratory results. Briefly, the patient presented with urinary retention. Patient has had an extensive medical history over the past few months, initially was admitted here last month due to vomiting hepatic failure as well as renal failure. He was eventually transferred to a tertiary care facility and did recover. He then developed cholecystitis and had an uncomplicated cholecystectomy yesterday. Patient's only presenting symptom today is acute urinary retention. He does report some generalized abdominal discomfort, attributed to recent surgery. His incisions appear to be well-healing. He does have some generalized, mild abdominal tenderness to palpation. Initial labs have been performed with a [id number] BMP which showed hyperkalemia, hyperglycemia and hyponatremia. A CBC shows a white count of 20, 000. A formal CMP was then performed which does show hyponatremia with a sodium of 129, hyperkalemia with a potassium of 6.4, mild elevation of creatinine at 1.62, and hyperglycemia with a glucose of 317. CT of the abdomen/pelvis was performed and shows postoperative changes without acute findings, as below. Patient was treated with IV fluids and insulin. The case was discussed with the [facility], who agreed to evaluate the patient for further care. CT OF THE ABDOMEN AND PELVIS WITHOUT CONTRAST CLINICAL HISTORY: leukocytosis, surgery yesterday, urinary retention COMPARISON STUDY: CT of the abdomen and pelvis February 26, 2022. TECHNIQUE: Axial images of the abdomen and pelvis were obtained without IV contrast. Images were reviewed in the axial, sagittal, and coronal planes. Automated exposure control was utilized for the study. A dose lowering technique was utilized adhering to the principles of ALARA. FINDINGS: Linear and ground glass opacities within the lower lungs reflect atelectasis. A small amount of pneumoperitoneum is noted. This also extraperitoneal gas and gas within the abdominal wall. These findings are not unexpected in the early postoperative setting. A biliary stent is in place. Fluid and stranding within the cholecystectomy bed is noted. No drainable fluid collection is present. Evaluation of the abdomen and pelvis is suboptimal on this unenhanced exam. Slight nodularity of the liver surface is noted. There is no biliary or pancreatic ductal dilatation. No peripancreatic infiltration. The spleen, adrenal glands and kidneys are normal. There is no hydronephrosis. There are no urinary calculi. Bladder is decompressed, containing a Jones balloon. There is bladder wall thickening. There is trace gas within the bladder. Prostate is enlarged, measuring 5.2 cm in transverse dimension. There are few prominent fluid-filled loops of proximal small bowel. Colonic diverticulosis is noted without evidence for acute diverticulitis. The appendix is normal. IMPRESSION: 1. Fluid and stranding within the cholec ystectomy bed. Although nonspecific, this finding is not unexpected in the early postoperative setting. No drainable fluid collection. 2. Pneumoperitoneum and gas within the a nterior abdominal wall which is postsurgical. 3. Common bile duct stent in place. No b iliary ductal dilatation. 4. Jones balloon within the bladder whic h is collapsed. Enlarged prostate. No hydronephrosis. No urinary calculi. 5. A few prominent fluid-filled loops of proximal small bowel. These findings do not suggest a bowel obstruction. .
--- NOTE | 2022-03-07 12:12 | XRay Report ---
KUB CLINICAL HISTORY: Abdominal pain, recent laparoscopic cholecystectomy COMPARISON STUDY: CT of the abdomen and pelvis March 06, 2022. FINDINGS: Cholecystectomy clips and a stent within the common bile duct are noted. Gaseous distention of small and large bowel has developed since prior CT. Transverse colon measures 9.2 cm in caliber. Small bowel loops measure up to 3.7 cm in caliber. Suspected lower lung airspace opacities are partia lly imaged. IMPRESSION: Interval development of gaseous distention of small and large bowel. This likely reflect s a postoperative ileus. A bowel obstruction could appear similar although is considered less likely. Continued radiographic follow-up is recommended. ACT 112: Negative or not required by law. Electronically signed by: Lukas Duke M.D. 03/07/2022 12:10 PM
[2022-03-07] MEDS: HYDROmorphone INJ 0.5 MG/0.5 ML SYR IV PRN ×3 (12:14→22:06)
[2022-03-07] MEDS: oxyCODONE HCL IR 5 MG TAB (IMMEDIATE RELEASE) PO PRN ×2 (14:04→18:15)
--- NOTE | 2022-03-07 14:29 | Pharmacy Report ---
Pharmacy Glycemic Short Note 2 - Date of Service March 07, 2022 - Glycemic Short BSG Results (Last 24 hours): 03/06/22 03/06/22 03/06/22 16:28 18:34 20:13 Glucose 115 H POC Glucose 135 H 132 H 03/06/22 03/07/22 03/07/22 23:56 03:43 07:17 Glucose POC Glucose 142 H 143 H 152 H 03/07/22 03/07/22 08:29 11:39 Glucose 150 H POC Glucose 184 H OUTPATIENT ANTIDIABETIC REGIMEN: * Lantus 50 units SQ BID * Novolog 12 units SQ AC * HbA1c = 7.1% (02/26/22) ASSESSMENT: 03/07 * Patient received total of 123 units of insulin yesterday, of which 100 units were basal insulin * Fasting BSG 152 mg/dL, patient not eating/no carb coverage documented on DEC - feel that with the current basal dosing and no PO intake anticipate BSGs to trend down * I held this AM's basal insulin, no PO intake this morning or at lunch time - will resume basal insulin for tonight. Plan to cut back by ~50% for now. On other admissions patient required closer to 40-60 units of basal insulin per day and that was with eating 03/06 * 51 yo M admitted secondary to urinary retention. Pharmacy has been consulted to assist with inpatient glycemic management. Presented with BSG of 336 mg/dL and potassium of 6.4 mmol/L. He was given 5 units of IV regular insulin in the ED. * BSG upon transfer to the floor was 323 mg/dL. Gave an additional 5 units of IV regular insulin (to equal 10 unit max for hyperkalemia). Spoke with attending who will repeat BMP this afternoon to monitor K. Started home dose of Lantus 50 units BID. Given hyperglycemia, will start Novolog based on weight/stress of 3. Will add overnight checks for the first night. PLAN FOR INPATIENT GLYCEMIC CONTROL: * Basal insulin - decrease * Lantus 40-50 units HS * Bolus insulin * NovoLog per scale ACHS or Q6hrs while NPO * Goal Range: Low 110 mg/dL - High 140 mg/dL * Correction Factor: 15 mg/dL/unit * Nutritional / Prandial insulin per carb ratio of 1 unit per 5 grams CHO consumed
--- NOTE | 2022-03-07 15:08 | Hospitalist Progress Note ---
Date of Service March 07, 2022 Assessment & Plan (1) Ileus: Plan: 2nd to recent lap shawnee, recent pancreatitis, etc. restrict diet to clears. continue IV fluids. ambulate. serial exams. (2) BPH loc w urin obs/LUTS: Plan: s/p kumar placement this admission. s/p institution of flomax. can't rule out acute prostatitis given the low-grade fevers, elevated PSA, etc. consider JOO before d/c. remains on rocephin - this will cover the prostate well. (3) Acute urinary retention: Plan: s/p kumar. likely due to BPH in setting of recent anesthesia for lap shawnee. can't rule out acute prostatitis. (4) BRIDGETTE (acute kidney injury): Plan: resolved. likely multifactorial including obstruction from BPH/retention, etc. repeat BMP am for stability. (5) Sinus tachycardia: Plan: could be 2nd to worsening anemia, but given his mild dyspnea, prior PEs, recent surgery, and he has been off Eliquis x 1 week this is worrisome for PE. check dopplers legs, r/o DVT. prednisone protocol for contrast allergy, then CTA chest to definitively r/o PE. (6) Anemia: Plan: Check Fe studies in am. Consider IV iron if low. Repeat cbc am. (7) DM type 2 (diabetes mellitus, type 2): Plan: Glycemic consult appreciated by pharmacy. Recent a1c 7.1%. (8) S/P laparoscopic cholecystectomy: Plan: POD #2 s/p lap shawnee for gallstones & chronic cholecystitis. Incisions c/d/i. Now with mild ileus. see above. clear liquid diet. (9) History of liver failure: Plan: 01/2022 resolved fortunately recent LFTs now wnl (10) Hypertension: Plan: controlled w/o medications (11) History of pulmonary embolus (PE): Plan: multiple episodes in the past I reviewed all CTA imaging at [facility] going back many years - cannot find any radiographic evidence of such early 2000s for these events?? was recently on Eliquis 5mg BID for the prior PEs see above Re: need for repeat VTE work-up if VTE w/u is negative simply resume his Eliquis Admission and Anticipated Discharge Date Admission Date: March 06, 2022 Subjective pt complains of stomach bloating/distension, lack of flatus, no stool in several days mild nausea but no emesis continues with mild upper abdominal pain from recent surgery kumar draining clear yellow urine he did note mild dyspnea with walking earlier today no pleuritic chest pain no substernal pain denies leg pains h/o multiple PE events "years ago" - last episode dx at [facility], year uncertain no prior h/o DVT to his knowledge no family history of VTE to his knowledge except a cousin but no first degree relatives with such Review of Systems Review of Systems: gen - low-grade fevers but no chills cv - no pain pulm - no cough GI - no vomiting Physical Exam Physical Exam: gen - NAD, awake, alert neck - no JVD mouth - MMM heart - RRR, s1 s2, no murmur lungs - decreased BS bases, otherwise CTA b/l abd - distended, BS+ but decreased, mild tenderness epigastric region ext - no edema, pulses 2+ b/l skin - abdominal wall incisions c/d/i Results & Data Results & Data ([facility]) Vital Signs (Past 12 Hours) Vital Signs Temp Pulse Pulse Resp BP Pulse Ox 03/07/22 14:35 36.8 C 110 H 18 121/70 95 03/07/22 14:19 109 H 03/07/22 10:48 37.3 C 110 H 20 109/67 98 03/07/22 06:35 37.5 C 103 H 18 108/65 92 03/07/22 06:20 112 H 03/07/22 03:29 37.1 C 94 H 18 122/75 97 Laboratory Results Abnormal lab results 03/07/22 03/07/22 03/07/22 Range/Units 08:29 08:29 10:16 WBC 11.42 H (4.8-10.8) K/uL RBC 3.05 L (4.7-6.1) M/uL Hgb 8.8 L (14.0-18.0) g/dL Hct 27.4 L (42-52) % MPV 12.8 H (7.4-10.4) fL Sodium 134 L (136-145) mmol/L BUN/Creatinine Ratio 7.2 L (10-20) Glucose 150 H (70-99(Fasting)) mg/dl POC Glucose (70-99) mg/dl Calcium 8.0 L (8.5-10.1) mg/dl Iron (35-175) mcg/dl TIBC (250-450) mcg/dl Transferrin % Sat (20-50) % Alkaline Phosphatase 116 H (34-104) U/L Albumin 3.0 L (3.4-5.0) gm/dl Urine Glucose (UA) Trace H (Negative) Urine Ketones Trace H (Negative) 03/07/22 03/07/22 03/07/22 Range/Units 11:39 16:26 20:00 WBC (4.8-10.8) K/uL RBC (4.7-6.1) M/uL Hgb (14.0-18.0) g/dL Hct (42-52) % MPV (7.4-10.4) fL Sodium (136-145) mmol/L BUN/Creatinine Ratio (10-20) Glucose (70-99(Fasting)) mg/dl POC Glucose 184 H 206 H 230 H (70-99) mg/dl Calcium (8.5-10.1) mg/dl Iron (35-175) mcg/dl TIBC (250-450) mcg/dl Transferrin % Sat (20-50) % Alkaline Phosphatase (34-104) U/L Albumin (3.4-5.0) gm/dl Urine Glucose (UA) (Negative) Urine Ketones (Negative) PG Care Time/CCT Total # of Minutes Spent Total Time Spent with Patient: Total time spent is greater than 50% in coordination of care (as documented) at patient's floor/unit and/or counseling patient: Coding Level of Care Code 46173 Subseq Hosp Care Lvl 3 Diagnoses BPH loc w urin obs/LUTS N40.1 Acute urinary retention R33.8 BRIDGETTE (acute kidney injury) N17.9 Sinus tachycardia R00.0 Anemia D64.9 DM type 2 (diabetes mellitus, type 2) E11.9 S/P laparoscopic cholecystectomy Z90.49 History of liver failure Z87.19 Hypertension I10 History of pulmonary embolus (PE) Z86.711 Ileus K56.7
[2022-03-07] MEDS: diphenhydrAMINE Capsule 25 MG CAP PO SCH (15:23)
--- NOTE | 2022-03-07 17:02 | Ultrasound Report ---
US venous doppler LE BI CLINICAL HISTORY: recent surgery, tachycardia, h/o PE; eval DVT TECHNIQUE: Bilateral lower extremity real-time compression venous ultrasound with Color Doppler imagi ng. Utilizing real-time ultrasonic imaging multiple real time high-resolution ultrasonic images with compression and noncompression maneuvers of the deep venous system in addition to color doppler imagi ng were performed from the common femoral vein through the proximal calf veins. COMPARISON: Comparison is made to Doppler ultrasound of the lower extremities 08/02/2016 FINDINGS: Currently there is normal compressibility of the deep venous system from the common femoral vein thro ugh the proximal calf veins. No current evidence of acute thrombosis is identified. Impression: No evidence of deep venous thrombus. ACT 112: Negative or not required by law. Electronically signed by: Marcus Camarena M.D. 03/07/2022 5:01 PM
[2022-03-07] MEDS ORDERED: INSULIN GLARGINE SOLOSTAR 100 UNITS/ML 3 ML PEN SQ SCH ×2 (18:00→21:00)
[2022-03-07] MEDS ORDERED: predniSONE 50 MG TAB PO SCH (18:00)
[2022-03-07] MEDS: cefTRIAXone SODIUM 2,000 MG in DEXTROSE 5% 50 ML IV SCH (18:51)
[2022-03-07] MEDS: TAMSULOSIN HCL 0.4 MG CAP PO SCH (20:57)
[2022-03-08] MEDS: predniSONE 50 MG TAB PO SCH ×2 (00:04→08:45)
[2022-03-08] MEDS: INSULIN ASPART PER UNIT SC SCH ×6 (00:09→21:27)
[2022-03-08] MEDS: SODIUM CHLORIDE 0.9% 1000ML 1,000 ML IV SCH ×2 (00:12→10:26)
[2022-03-08] MEDS: oxyCODONE HCL IR 5 MG TAB (IMMEDIATE RELEASE) PO PRN ×2 (00:13→13:20)
[2022-03-08] MEDS ORDERED: INSULIN ASPART PER UNIT SC STA (04:33)
[2022-03-08] MEDS ORDERED: diphenhydrAMINE Capsule 25 MG CAP PO ONE (08:00)
[2022-03-08 08:15] LABS: Hematocrit (blood only) 27.3 % (42-52); Hemoglobin 8.8 g/dL (14.0-18.0); Mean Corpuscular Hemoglobin 28.2 pg (25-34); Mean Corpuscular Hgb Conc 32.2 g/dL (32-36); Mean Corpuscular Volume 87.5 fL (80-100); Platelet Count 152 K/uL (130-400); RDW Coefficient of Variation 13.7 % (11.5-14.5); RDW Standard Deviation 43.8 fL (36.4-46.3); Red Blood Count 3.12 M/uL (4.7-6.1); White Blood Count 9.66 K/uL (4.8-10.8)
[2022-03-08] MEDS ORDERED: INSULIN GLARGINE SOLOSTAR 100 UNITS/ML 3 ML PEN SQ ONE (08:15)
[2022-03-08 08:16] LABS: BUN Creatinine Ratio 9.2 (10-20); Calcium 8.4 mg/dl (8.5-10.1); Creatinine Clr Calc Pharmacy 110.1 ml/min; Est GFR (African American) 91.9 ml/min; Est GFR (Non-African American) 79.3 ml/min; Potassium 4.3 mmol/L (3.5-5.1)
[2022-03-08 08:35] LABS: Ferritin 54.7 ng/ml (8-388)
[2022-03-08] MEDS: HYDROmorphone INJ 0.5 MG/0.5 ML SYR IV PRN ×3 (08:39→22:10)
[2022-03-08] MEDS ORDERED: OPTIRAY 320 125ml IV ONE (09:10)
--- NOTE | 2022-03-08 09:29 | CT Scan Report ---
CT angio chest PE protocol CLINICAL HISTORY: h/o PE; tachycardia, hypoxia; eval new PE TECHNIQUE: Multidetector row helical CT of the chest was performed with angiographic protocol. Bautista l and sagittal reformations were obtained. Coronal and sagittal MIPS were obtained from the axial gil a set and were submitted for review. Automated dose lowering techniques and/or adjustment according to patient size were utilized for this exam. CT DOSE: 724.17 mGy.cm Comparison: Comparison is made to CT chest 01/19/2022 FINDINGS: Lungs and pleura: Atelectasis versus scarring is seen in the dependent portions of the lungs. Heart and pericardium: Heart size is normal. No pericardial effusion. Vessels: No evidence of pulmonary embolism. Mediastinum and tori: Unremarkable. Chest wall and lower neck: Unremarkable. Abdomen: Patient is status post cholecystectomy. Pneumobilia is noted. Bones: Unremarkable. IMPRESSION: No evidence of pulmonary embolism. Atelectasis is seen. ACT 112: Negative or not required by law. Electronically signed by: Marcus Camarena M.D. 03/08/2022 9:28 AM
[2022-03-08] MEDS: clonazePAM 1 MG TAB PO SCH ×2 (10:17→21:30)
[2022-03-08] MEDS: DULoxetine HCL 60 MG CAP PO SCH (10:17)
[2022-03-08] MEDS: DULoxetine HCL 20 MG CAP PO SCH (10:17)
--- NOTE | 2022-03-08 13:00 | Hospitalist Progress Note ---
Date of Service March 08, 2022 Assessment & Plan (1) Ileus: Plan: 2nd to recent lap shawnee, recent pancreatitis, etc. IMPROVED. passing flatus. less distension. advance diet. cut fluid rate now, then likely off by late tonight. ambulate. serial exams. (2) BPH loc w urin obs/LUTS: Plan: s/p kumar placement this admission. s/p institution of flomax. can't rule out acute prostatitis given the low-grade fevers, elevated PSA, etc. will perform JOO tomorrow. stop rocephin; change to keflex. urine cx is negative but often is with prostatitis. (3) Acute urinary retention: Plan: s/p kumar. likely due to BPH in setting of recent anesthesia for lap shawnee. can't rule out acute prostatitis. JOO tomorrow. (4) BRIDGETTE (acute kidney injury): Plan: resolved. likely multifactorial including obstruction from BPH/retention, etc. repeat BMP am for stability. (5) Sinus tachycardia: Plan: no PE on CTA chest thus PE not the cause. acute anemia likely the biggest contributor. (6) Anemia: Plan: Fe studies c/w early Fe def anemia. venofer 300mg IV x 1. repeat tomorrow as well. cbc in am for stability. (7) DM type 2 (diabetes mellitus, type 2): Plan: Glycemic consult appreciated by pharmacy. Recent a1c 7.1%. BSGs high today due to prednisone for CT contrast protocol. (8) S/P laparoscopic cholecystectomy: Plan: POD #3 s/p lap shawnee for gallstones & chronic cholecystitis. Incisions c/d/i. Ileus improved; advance diet. spoke with Gen surg - ok to resume Eliquis. (9) History of liver failure: Plan: 01/2022 resolved fortunately recent LFTs now wnl (10) Hypertension: Plan: controlled w/o medications (11) History of pulmonary embolus (PE): Plan: multiple episodes in the past I reviewed all CTA imaging at [facility] going back many years - cannot find any radiographic evidence of such early 2000s for these events?? was recently on Eliquis 5mg BID for the prior PEs CTA chest neg for PE this admission. Dopplers b/l LEs neg for DVT. Resume eliquis 5mg BID. Plan: hoping for discharge tomorrow on Friday Admission and Anticipated Discharge Date Admission Date: March 06, 2022 Subjective pt feels better today passing "lots" of gas no BM just yet no nausea or emesis asks for more food today dyspnea improved ambulating tele overnight wnl Review of Systems Review of Systems: gen - no fevers or chills cv - no orthopnea, no chest pain pulm - no cough GI - no abd pain; bloating is better Physical Exam Physical Exam: gen - NAD, awake, alert - looks better today neck - no JVD mouth - MMM heart - RRR, s1 s2, no murmur lungs - CTA b/l abd - distension improved, BS+, NT, soft, no HSM ext - no edema, pulses 2+ b/l skin - abdominal wall incisions c/d/i Results & Data Results & Data ([facility]) Vital Signs (Past 12 Hours) Vital Signs Temp Pulse Pulse Resp BP Pulse Ox 03/08/22 11:54 36.3 C L 97 H 18 127/77 93 03/08/22 07:35 84 03/08/22 07:30 36.4 C L 84 20 145/80 H 92 03/08/22 03:14 36.5 C 98 H 18 125/79 92 Laboratory Results Laboratory Results - last 24 hr 03/07/22 03/07/22 03/08/22 16:26 20:00 00:03 WBC RBC Hgb Hct MCV MCH MCHC RDW Std Deviation RDW Coeff of Lillie Plt Count MPV Sodium Potassium Chloride Carbon Dioxide Anion Gap BUN Creatinine Est Cr Clr Drug Dosing Est GFR ( Amer) Est GFR (Non-Af Amer) BUN/Creatinine Ratio Glucose POC Glucose 206 H 230 H 246 H Calcium Iron TIBC Unsaturated IBC Transferrin % Sat Ferritin 03/08/22 03/08/22 03/08/22 03:34 07:35 07:35 WBC 9.66 RBC 3.12 L Hgb 8.8 L Hct 27.3 L MCV 87.5 MCH 28.2 MCHC 32.2 RDW Std Deviation 43.8 RDW Coeff of Lillie 13.7 Plt Count 152 MPV 12.0 H Sodium 134 L Potassium 4.3 Chloride 106 Carbon Dioxide 25 Anion Gap 3 BUN 10 Creatinine 1.09 Est Cr Clr Drug Dosing 110.1 Est GFR ( Amer) 91.9 Est GFR (Non-Af Amer) 79.3 BUN/Creatinine Ratio 9.2 L Glucose 244 H POC Glucose 293 H Calcium 8.4 L Iron 18 L TIBC 248 L Unsaturated IBC 230 Transferrin % Sat 7 L Ferritin 54.7 03/08/22 03/08/22 03/08/22 07:51 10:08 11:50 WBC RBC Hgb Hct MCV MCH MCHC RDW Std Deviation RDW Coeff of Lillie Plt Count MPV Sodium Potassium Chloride Carbon Dioxide Anion Gap BUN Creatinine Est Cr Clr Drug Dosing Est GFR ( Amer) Est GFR (Non-Af Amer) BUN/Creatinine Ratio Glucose POC Glucose 273 H 278 H 258 H Calcium Iron TIBC Unsaturated IBC Transferrin % Sat Ferritin Diagnostic Findings blood/urine cx's negative PG Care Time/CCT Total # of Minutes Spent Total Time Spent with Patient: Total time spent is greater than 50% in coordination of care (as documented) at patient's floor/unit and/or counseling patient: Coding Level of Care Code 64451 Subseq Hosp Care Lvl 3 Diagnoses Ileus K56.7 BPH loc w urin obs/LUTS N40.1 Acute urinary retention R33.8 BRIDGETTE (acute kidney injury) N17.9 Sinus tachycardia R00.0 Anemia D64.9 DM type 2 (diabetes mellitus, type 2) E11.9 S/P laparoscopic cholecystectomy Z90.49 History of liver failure Z87.19 Hypertension I10 History of pulmonary embolus (PE) Z86.711
[2022-03-08] MEDS: APIXABAN 5 MG TABLET PO SCH ×2 (13:13→21:32)
[2022-03-08] MEDS ORDERED: IRON SUCROSE 300 MG in SODIUM CHLORIDE 0.9% 250 ML IV ONE (14:00)
--- NOTE | 2022-03-08 15:29 | Pharmacy Report ---
Pharmacy Glycemic Short Note 2 - Date of Service March 08, 2022 - Glycemic Short BSG Results (Last 24 hours): 03/07/22 03/07/22 03/08/22 16:26 20:00 00:03 Glucose POC Glucose 206 H 230 H 246 H 03/08/22 03/08/22 03/08/22 03:34 07:35 07:51 Glucose 244 H POC Glucose 293 H 273 H 03/08/22 03/08/22 10:08 11:50 Glucose POC Glucose 278 H 258 H OUTPATIENT ANTIDIABETIC REGIMEN: * Lantus 50 units SQ BID * Novolog 12 units SQ AC * HbA1c = 7.1% (02/26/22) ASSESSMENT: 03/08 * Patient received total of 83 units of insulin yesterday, of which 60 units were basal. Pred 50 mg x 3 doses started last evening - BSGs trending up * BSG 273 mg/dL this morning, scheduled basal dose of 60 units for this morning, however patient refused. Spoke with RN and patient concerned taking long actin g since he is not eating solid foods and on clears/liquids. I spoke with RN that we will add a scale for basal at dinner and to call us if patient has any concerns as we can work with him and give him a dose he feels comfortable with * Lunch BSG trending down but still elevated at 258 03/07 * Patient received total of 123 units of insulin yesterday, of which 100 units were basal insulin * Fasting BSG 152 mg/dL, patient not eating/no carb coverage documented on DEC - feel that with the current basal dosing and no PO intake anticipate BSGs to trend down * I held this AM's basal insulin, no PO intake this morning or at lunch time - will resume basal insulin for tonight. Plan to cut back by ~50% for now. On other admissions patient required closer to 40-60 units of basal insulin per day and that was with eating 03/06 * 51 yo M admitted secondary to urinary retention. Pharmacy has been consulted to assist with inpatient glycemic management. Presented with BSG of 336 mg/dL and potassium of 6.4 mmol/L. He was given 5 units of IV regular insulin in the ED. * BSG upon transfer to the floor was 323 mg/dL. Gave an additional 5 units of IV regular insulin (to equal 10 unit max for hyperkalemia). Spoke with attending who will repeat BMP this afternoon to monitor K. Started home dose of Lantus 50 units BID. Given hyperglycemia, will start Novolog based on weight/stress of 3. Will add overnight checks for the first night. PLAN FOR INPATIENT GLYCEMIC CONTROL: * Basal insulin * Lantus 40-60 units HS * Bolus insulin * NovoLog per scale ACHS or Q6hrs while NPO * Goal Range: Low 110 mg/dL - High 140 mg/dL * Correction Factor: 15 mg/dL/unit * Nutritional / Prandial insulin per carb ratio of 1 unit per 4 grams CHO consumed
[2022-03-08] MEDS: diphenhydrAMINE Capsule 25 MG CAP PO SCH (15:44)
[2022-03-08] MEDS ORDERED: INSULIN GLARGINE SOLOSTAR 100 UNITS/ML 3 ML PEN SQ SCH (18:00)
[2022-03-08] MEDS: TAMSULOSIN HCL 0.4 MG CAP PO SCH (21:32)
[2022-03-08] MEDS: cephALEXin 500 MG CAP PO SCH (22:09)
[2022-03-09] MEDS: INSULIN ASPART PER UNIT SC SCH ×6 (00:08→21:07)
[2022-03-09] MEDS ORDERED: IRON SUCROSE 300 MG in SODIUM CHLORIDE 0.9% 250 ML IV SCH (08:00)
[2022-03-09] MEDS: DULoxetine HCL 60 MG CAP PO SCH (08:35)
[2022-03-09] MEDS: DULoxetine HCL 20 MG CAP PO SCH (08:35)
[2022-03-09] MEDS: APIXABAN 5 MG TABLET PO SCH ×2 (08:35→21:09)
[2022-03-09] MEDS: INSULIN GLARGINE SOLOSTAR 100 UNITS/ML 3 ML PEN SQ SCH ×2 (08:37→21:10)
[2022-03-09] MEDS: clonazePAM 1 MG TAB PO SCH ×2 (08:47→21:07)
[2022-03-09] MEDS: cephALEXin 500 MG CAP PO SCH ×2 (09:38→21:09)
[2022-03-09] MEDS: oxyCODONE HCL IR 5 MG TAB (IMMEDIATE RELEASE) PO PRN ×3 (09:39→23:38)
[2022-03-09 11:45] LABS: Hematocrit (blood only) 26.8 % (42-52); Hemoglobin 8.8 g/dL (14.0-18.0)
[2022-03-09 12:09] LABS: BUN Creatinine Ratio 10.1 (10-20); Calcium 8.3 mg/dl (8.5-10.1); Creatinine Clr Calc Pharmacy 112.7 ml/min; Est GFR (African American) 91.9 ml/min; Est GFR (Non-African American) 79.3 ml/min; Potassium 3.2 mmol/L (3.5-5.1)
[2022-03-09] MEDS ORDERED: POTASSIUM CHLORIDE CRTAB 20 MEQ TABCR PO STA (12:36)
[2022-03-09] MEDS ORDERED: bisacodyL 10 MG SUPP PR STA (13:47)
[2022-03-09] MEDS: TAMSULOSIN HCL 0.4 MG CAP PO SCH (21:09)
[2022-03-09] MEDS ORDERED: traMADol HCL 50 MG TABLET PO STA (21:10)
[2022-03-09] MEDS ORDERED: HYDROmorphone INJ 0.5 MG/0.5 ML SYR IV STA (21:17)
--- NOTE | 2022-03-09 21:42 | Hospitalist Progress Note ---
Date of Service March 09, 2022 Assessment & Plan (1) Ileus: Plan: 2nd to recent lap shawnee, recent pancreatitis, etc. IMPROVED. advance diet. cont to ambulate. bowel regimen. encouraged less narcotics. (2) Acute prostatitis: Plan: suspected based on JOO findings today. plan keflex course post-d/c. Rx for total IV/PO abx of ~4 weeks. flomax. kumar. f/u urology post-d/c. (3) BPH loc w urin obs/LUTS: Plan: s/p kumar placement this admission. s/p institution of flomax. with suspected acute prostatitis. cont keflex now and post-discharge. (4) Acute urinary retention: Plan: s/p kumar. likely due to BPH in setting of recent anesthesia for lap shawnee. acute prostatitis also likely played a role. (5) BRIDGETTE (acute kidney injury): Plan: resolved. likely multifactorial including obstruction from BPH/retention, etc. repeat BMP am for stability. (6) Sinus tachycardia: Plan: no PE on CTA chest thus PE not the cause. acute anemia likely the biggest contributor. resolved. (7) Anemia: Plan: Fe studies c/w early Fe def anemia. venofer 300mg IV again today, dose #2. plan dose #3 tomorrow. cbc in am for stability. (8) DM type 2 (diabetes mellitus, type 2): Plan: Glycemic consult appreciated by pharmacy. Recent a1c 7.1%. BSGs improved. (9) S/P laparoscopic cholecystectomy: Plan: POD #4 s/p lap shawnee for gallstones & chronic cholecystitis. Incisions c/d/i. Ileus improved; advance diet. (10) History of liver failure: Plan: 01/2022 resolved fortunately recent LFTs now wnl (11) Hypertension: Plan: controlled w/o medications (12) History of pulmonary embolus (PE): Plan: multiple episodes in the past I reviewed all CTA imaging at [facility] going back many years - cannot find any radiographic evidence of such early 2000s for these events?? was recently on Eliquis 5mg BID for the prior PEs CTA chest neg for PE this admission. Dopplers b/l LEs neg for DVT. Resumed eliquis 5mg BID. Plan: ambulate today focus on bowel movements/ileus Rx diet as tolerate hopefully home tomorrow Admission and Anticipated Discharge Date Admission Date: March 06, 2022 Subjective tele stable overnight no new issues tolerating regular diet no vomiting no dyspnea ambulating still without BM, but passing plenty of flatus feels like the "BM is coming" bloating is better although not fully resolved still with incisional tenderness Review of Systems Review of Systems: gen - no fevers, no chills cv - no cp, no orthpnea GI - scant nausea x 1 episode - kumar draining without difficulty Physical Exam Physical Exam: gen - NAD, looks good today neck - no JVD mouth - MMM heart - RRR, s1 s2, no murmur lungs - CTA b/l abd - distension improved/resolved, BS+, NT, soft, no HSM ext - no edema, pulses 2+ b/l skin - abdominal wall incisions c/d/i JOO - stool in rectal vault; no blood; no masses; prostate enlarged, boggy, tender Results & Data Results & Data ([facility]) Vital Signs (Past 12 Hours) Vital Signs Temp Pulse Pulse Resp BP Pulse Ox 03/09/22 19:35 36.5 C 75 18 161/104 H 96 03/09/22 15:53 74 03/09/22 15:26 36.5 C 73 18 150/91 H 95 Laboratory Results Laboratory Results - last 24 hr 03/09/22 03/09/22 03/09/22 00:02 04:05 08:00 Hgb Hct Sodium Potassium Chloride Carbon Dioxide Anion Gap BUN Creatinine Est Cr Clr Drug Dosing Est GFR ( Amer) Est GFR (Non-Af Amer) BUN/Creatinine Ratio Glucose POC Glucose 178 H 213 H 179 H Calcium 03/09/22 03/09/22 03/09/22 11:06 11:06 11:48 Hgb 8.8 L Hct 26.8 L Sodium 142 Potassium 3.2 L D Chloride 110 H Carbon Dioxide 27 Anion Gap 5 BUN 11 Creatinine 1.09 Est Cr Clr Drug Dosing 112.7 Est GFR ( Amer) 91.9 Est GFR (Non-Af Amer) 79.3 BUN/Creatinine Ratio 10.1 Glucose 146 H POC Glucose 131 H Calcium 8.3 L 03/09/22 03/09/22 16:31 20:22 Hgb Hct Sodium Potassium Chloride Carbon Dioxide Anion Gap BUN Creatinine Est Cr Clr Drug Dosing Est GFR ( Amer) Est GFR (Non-Af Amer) BUN/Creatinine Ratio Glucose POC Glucose 169 H 204 H Calcium Diagnostic Findings blood/urine cx's negative PG Care Time/CCT Total # of Minutes Spent Total Time Spent with Patient: Total time spent is greater than 50% in coordination of care (as documented) at patient's floor/unit and/or counseling patient: Coding Level of Care Code 86515 Subseq Hosp Care Lvl 2 Diagnoses Ileus K56.7 BPH loc w urin obs/LUTS N40.1 Acute urinary retention R33.8 BRIDGETTE (acute kidney injury) N17.9 Sinus tachycardia R00.0 Anemia D64.9 DM type 2 (diabetes mellitus, type 2) E11.9 S/P laparoscopic cholecystectomy Z90.49 History of liver failure Z87.19 Hypertension I10 History of pulmonary embolus (PE) Z86.711 Acute prostatitis N41.0
[2022-03-10] MEDS: oxyCODONE HCL IR 5 MG TAB (IMMEDIATE RELEASE) PO PRN (07:25)
[2022-03-10] MEDS: INSULIN ASPART PER UNIT SC SCH ×4 (08:49→20:44)
[2022-03-10] MEDS: DULoxetine HCL 20 MG CAP PO SCH (08:52)
[2022-03-10] MEDS: cephALEXin 500 MG CAP PO SCH ×2 (08:52→20:40)
[2022-03-10] MEDS: APIXABAN 5 MG TABLET PO SCH ×2 (08:52→20:40)
[2022-03-10] MEDS: INSULIN GLARGINE SOLOSTAR 100 UNITS/ML 3 ML PEN SQ SCH ×2 (08:52→20:42)
[2022-03-10] MEDS: DULoxetine HCL 60 MG CAP PO SCH (08:52)
[2022-03-10] MEDS: clonazePAM 1 MG TAB PO SCH ×2 (08:56→20:38)
[2022-03-10] MEDS ORDERED: bisacodyL 5 MG TABEC PO ONE (09:04)
[2022-03-10] MEDS ORDERED: IRON SUCROSE 300 MG in SODIUM CHLORIDE 0.9% 250 ML IV ONE (09:30)
[2022-03-10] MEDS ORDERED: POLYETHYLENE (MIRALAX) 17 GM PACK PO SCH (09:30)
--- NOTE | 2022-03-10 10:09 | XRay Report ---
KUB CLINICAL HISTORY: Ileus. Constipation. FINDINGS: 2 AP supine abdominal radiographs are compared to study dated 03/07/2022 and correlated with abdominal CT dated 03/06/2022. There is a nonobstructed abdominal bowel gas pattern noting moderate t o severe constipation. No evidence of intraperitoneal free air is seen on these supine images. Cholec ystectomy clips and a common bile duct stent project over the right upper quadrant. There are no abno rmal abdominal calcifications. The bony structures appear intact. IMPRESSION: Moderate to severe constipation. Electronically signed by: Kendall Dee M.D. 03/10/2022 10:08 AM
[2022-03-10] MEDS ORDERED: KETOROLAC 30 MG/ML VIAL IV ONE (10:24)
[2022-03-10 10:29] LABS: Hematocrit (blood only) 28.1 % (42-52); Hemoglobin 9.3 g/dL (14.0-18.0); Mean Corpuscular Hgb Conc 33.1 g/dL (32-36); Mean Corpuscular Volume 87.5 fL (80-100); Mean Platelet Volume 10.9 fL (7.4-10.4); Nucleated RBC # (auto) 0.09 K/uL (0-0); Platelet Count 192 K/uL (130-400); RDW Coefficient of Variation 13.7 % (11.5-14.5); RDW Standard Deviation 44.2 fL (36.4-46.3); Red Blood Count 3.21 M/uL (4.7-6.1); White Blood Count 9.47 K/uL (4.8-10.8)
[2022-03-10 10:45] LABS: BUN Creatinine Ratio 8.9 (10-20); Calcium 8.5 mg/dl (8.5-10.1); Creatinine Clr Calc Pharmacy 108.8 ml/min; Est GFR (African American) 88.9 ml/min; Est GFR (Non-African American) 76.7 ml/min; Magnesium 1.7 mg/dl (1.7-2.4); Potassium 3.2 mmol/L (3.5-5.1)
[2022-03-10] MEDS ORDERED: POTASSIUM CHLORIDE CRTAB 20 MEQ TABCR PO STA (11:28)
[2022-03-10] MEDS ORDERED: LACTULOSE SYRUP 20 GM/30 ML UDC PO ONE (11:28)
--- NOTE | 2022-03-10 14:00 | Pharmacy Report ---
Pharmacy Glycemic Short Note 2 - Date of Service March 10, 2022 - Glycemic Short BSG Results (Last 24 hours): 03/09/22 03/09/22 03/10/22 16:31 20:22 07:32 Glucose POC Glucose 169 H 204 H 147 H 03/10/22 03/10/22 03/10/22 10:09 11:09 11:12 Glucose 148 H POC Glucose 522 H* 319 H* 03/10/22 03/10/22 11:14 11:19 Glucose POC Glucose 174 H 179 H OUTPATIENT ANTIDIABETIC REGIMEN: * Lantus 50 units SQ BID * Novolog 12 units SQ AC * HbA1c = 7.1% (02/26/22) ASSESSMENT: 03/10/22: * BSGs have been fairly stable for the past ~48hr since re-starting Lantus at a reduced dose. * Pt is no longer receiving steroids. * No changes required at this time. 03/08 * Patient received total of 83 units of insulin yesterday, of which 60 units were basal. Pred 50 mg x 3 doses started last evening - BSGs trending up * BSG 273 mg/dL this morning, scheduled basal dose of 60 units for this morning, however patient refused. Spoke with RN and patient concerned taking long acting since he is not eating solid foods and on clears/liquids. I spoke with RN that we will add a scale for basal at dinner and to call us if patient has any concerns as we can work with him and give him a dose he feels comfortable with * Lunch BSG trending down but still elevated at 258 03/07 * Patient received total of 123 units of insulin yesterday, of which 100 units were basal insulin * Fasting BSG 152 mg/dL, patient not eating/no carb coverage documented on DEC - feel that with the current basal dosing and no PO intake anticipate BSGs to trend down * I held this AM's basal insulin, no PO intake this morning or at lunch time - will resume basal insulin for tonight. Plan to cut back by ~50% for now. On other admissions patient required closer to 40-60 units of basal insulin per day and that was with eating 03/06 * 51 yo M admitted secondary to urinary retention. Pharmacy has been consulted to assist with inpatient glycemic management. Presented with BSG of 336 mg/dL and potassium of 6.4 mmol/L. He was given 5 units of IV regular insulin in the ED. * BSG upon transfer to the floor was 323 mg/dL. Gave an additional 5 units of IV regular insulin (to equal 10 unit max for hyperkalemia). Spoke with attending who will repeat BMP this afternoon to monitor K. Started home dose of Lantus 50 units BID. Given hyperglycemia, will start Novolog based on weight/stress of 3. Will add overnight checks for the first night. PLAN FOR INPATIENT GLYCEMIC CONTROL: * Basal insulin * Lantus 20 units SQ BID * Bolus insulin * NovoLog per scale ACHS or Q6hrs while NPO * Goal Range: Low 110 mg/dL - High 140 mg/dL * Correction Factor: 15 mg/dL/unit * Nutritional / Prandial insulin per carb ratio of 1 unit per 4 grams CHO consumed
[2022-03-10] MEDS ORDERED: oxyCODONE HCL IR 5 MG TAB (IMMEDIATE RELEASE) PO PRN (20:14)
--- NOTE | 2022-03-10 20:14 | Hospitalist Progress Note ---
Date of Service March 10, 2022 Assessment & Plan (1) Ileus: Plan: 2nd to recent lap shawnee, recent pancreatitis, etc. resolved radiographically. main issue now is that of severe constipation. gave dulcolax/miralax this am w/o relief of constipation. thus, give 20gm lactulose x 1 and then re-eval. (2) Acute prostatitis: Plan: suspected based on JOO findings 03/09. plan keflex course post-d/c. Rx for total IV/PO abx of ~4 weeks. flomax. kumar. f/u urology post-d/c. (3) BPH loc w urin obs/LUTS: Plan: s/p kumar placement this admission. s/p institution of flomax. with suspected acute prostatitis. cont keflex. (4) Acute urinary retention: Plan: s/p kumar. likely due to BPH in setting of recent anesthesia for lap shawnee. acute prostatitis also likely played a role. (5) BRIDGETTE (acute kidney injury): Plan: resolved. likely multifactorial including obstruction from BPH/retention, etc. repeat BMP am for stability. (6) Sinus tachycardia: Plan: resolved likely due to recent acute anemia (7) Anemia: Plan: Fe studies c/w early Fe def anemia. venofer 300mg IV again today, dose #3 (and final dose). H/H remain stable. (8) DM type 2 (diabetes mellitus, type 2): Plan: Glycemic consult appreciated by pharmacy. Recent a1c 7.1%. BSGs improved. (9) S/P laparoscopic cholecystectomy: Plan: POD #5 s/p lap shawnee for gallstones & chronic cholecystitis. Incisions c/d/i. Ileus resolved but with constipation - see above. tolerating regular diet. (10) History of liver failure: Plan: 01/2022 resolved fortunately recent LFTs now wnl (11) Hypertension: Plan: BPs had been wnl but now his BPs are quite high may need to institute therapy for such (12) History of pulmonary embolus (PE): Plan: multiple episodes in the past CTA chest neg for PE this admission. Dopplers b/l LEs neg for DVT as well. cont eliquis 5mg BID. Plan: d/c home tomorrow patient does not have a ride to get home today Admission and Anticipated Discharge Date Admission Date: March 06, 2022 Subjective patient still has not had a stool c/o bloating & ongoing lower abd discomfort despite such his appetite is fairly good although he gets filled up easily denies dyspnea denies nausea/emesis tele wnl Review of Systems Review of Systems: gen - no fever cv - no orthopnea pulm - no cough or dyspnea on exertion GI - mild lower abdominal pain; minimal incisional pain Physical Exam Physical Exam: gen - NAD neck - no JVD mouth - MMM heart - RRR, s1 s2, no murmur lungs - CTA b/l abd - soft, mild incisional tenderness over lap shawnee incisions, BS+, mild abd distension remains ext - no edema, pulses 2+ b/l skin - abdominal wall incisions c/d/i Results & Data Results & Data ([facility]) Vital Signs (Past 12 Hours) Vital Signs Temp Pulse Pulse Resp BP Pulse Ox 03/10/22 19:44 37.0 C 91 H 18 164/102 H 93 03/10/22 15:54 36.8 C 95 H 16 156/95 H 94 03/10/22 12:09 37.0 C 81 18 155/95 H 94 Laboratory Results Laboratory Results - last 24 hr 03/09/22 03/10/22 03/10/22 20:22 07:32 10:09 WBC 9.47 RBC 3.21 L Hgb 9.3 L Hct 28.1 L MCV 87.5 MCH 29.0 MCHC 33.1 RDW Std Deviation 44.2 RDW Coeff of Lillie 13.7 Plt Count 192 MPV 10.9 H Absolute Nucleated RBC 0.09 H Nucleated RBC % (auto) 1.0 Sodium Potassium Chloride Carbon Dioxide Anion Gap BUN Creatinine Est Cr Clr Drug Dosing Est GFR ( Amer) Est GFR (Non-Af Amer) BUN/Creatinine Ratio Glucose POC Glucose 204 H 147 H Calcium Magnesium 03/10/22 03/10/22 03/10/22 10:09 11:09 11:12 WBC RBC Hgb Hct MCV MCH MCHC RDW Std Deviation RDW Coeff of Lillie Plt Count MPV Absolute Nucleated RBC Nucleated RBC % (auto) Sodium 142 Potassium 3.2 L Chloride 108 H Carbon Dioxide 27 Anion Gap 7 BUN 10 Creatinine 1.12 Est Cr Clr Drug Dosing 108.8 Est GFR ( Amer) 88.9 Est GFR (Non-Af Amer) 76.7 BUN/Creatinine Ratio 8.9 L Glucose 148 H POC Glucose 522 H* 319 H* Calcium 8.5 Magnesium 1.7 03/10/22 03/10/22 03/10/22 11:14 11:19 16:44 WBC RBC Hgb Hct MCV MCH MCHC RDW Std Deviation RDW Coeff of Lillie Plt Count MPV Absolute Nucleated RBC Nucleated RBC % (auto) Sodium Potassium Chloride Carbon Dioxide Anion Gap BUN Creatinine Est Cr Clr Drug Dosing Est GFR ( Amer) Est GFR (Non-Af Amer) BUN/Creatinine Ratio Glucose POC Glucose 174 H 179 H 72 Calcium Magnesium Diagnostic Findings KUB X-Ray 03/10/22 09:24 KUB CLINICAL HISTORY: Ileus. Constipation. FINDINGS: 2 AP supine abdominal radiographs are compared to study dated 03/07/2022 and correlated with abdominal CT dated 03/06/2022. There is a nonobstructed abdominal bowel gas pattern noting moderate to severe constipation. No evidence of intraperitoneal free air is seen on these supine images. Cholecystectomy clips and a common bile duct stent project over the right upper quadrant. There are no abnormal abdominal calcifications. The bony structures appear intact. IMPRESSION: Moderate to severe constipation. Electronically signed by: Kendall Dee M.D. 03/10/2022 10:08 AM PG Care Time/CCT Total # of Minutes Spent Total Time Spent with Patient: Total time spent is greater than 50% in coordination of care (as documented) at patient's floor/unit and/or counseling patient: Coding Level of Care Code 90656 Subseq Hosp Care Lvl 2 Diagnoses Ileus K56.7 Acute prostatitis N41.0 BPH loc w urin obs/LUTS N40.1 Acute urinary retention R33.8 BRIDGETTE (acute kidney injury) N17.9 Sinus tachycardia R00.0 Anemia D64.9 DM type 2 (diabetes mellitus, type 2) E11.9 S/P laparoscopic cholecystectomy Z90.49 History of liver failure Z87.19 Hypertension I10 History of pulmonary embolus (PE) Z86.711
[2022-03-10] MEDS: TAMSULOSIN HCL 0.4 MG CAP PO SCH (20:40)
[2022-03-10] MEDS: POLYETHYLENE (MIRALAX) 17 GM PACK PO SCH (20:42)
[2022-03-11 07:16] LABS: BUN Creatinine Ratio 6.7 (10-20); Calcium 8.5 mg/dl (8.5-10.1); Creatinine Clr Calc Pharmacy 115.5 ml/min; Est GFR (African American) 97.3 ml/min; Est GFR (Non-African American) 83.9 ml/min; Potassium 3.1 mmol/L (3.5-5.1)
[2022-03-11] MEDS ORDERED: POTASSIUM CHLORIDE CRTAB 20 MEQ TABCR PO STA (08:07)
[2022-03-11] MEDS: INSULIN ASPART PER UNIT SC SCH ×4 (08:55→20:38)
[2022-03-11] MEDS: APIXABAN 5 MG TABLET PO SCH ×2 (08:55→20:37)
[2022-03-11] MEDS: DULoxetine HCL 20 MG CAP PO SCH (08:55)
[2022-03-11] MEDS: DULoxetine HCL 60 MG CAP PO SCH (08:55)
[2022-03-11] MEDS: cephALEXin 500 MG CAP PO SCH ×2 (08:55→20:37)
[2022-03-11] MEDS: INSULIN GLARGINE SOLOSTAR 100 UNITS/ML 3 ML PEN SQ SCH ×2 (08:56→20:39)
[2022-03-11] MEDS: POLYETHYLENE (MIRALAX) 17 GM PACK PO SCH ×2 (08:56→20:38)
[2022-03-11] MEDS: DOCUSATE SODIUM/SENNA 50/8.6MG TAB PO SCH (08:59)
[2022-03-11] MEDS: clonazePAM 1 MG TAB PO SCH ×2 (08:59→20:36)
--- NOTE | 2022-03-11 11:58 | Surgery Consultation ---
Date of Consultation March 11, 2022 Assessment & Plan (1) S/P laparoscopic cholecystectomy: (2) Ileus: 51-year-old gentleman 5 days status post lap shawnee. He continues to have pain. He is somewhat concerned about this. I recommend checking his LFTs. His white blood cell count was normal. [address] scan demonstrates no evidence of collection above the liver. He denies nausea and vomiting. Advance diet as tolerated. If the LFTs are normal, I do not believe further testing is nece ssary. We will continue to follow while he was here. History of Present Illness Requesting Physician: Charlie Patel Attending Physician: Charlie Patel History of Present Illness 51-year-old gentleman 5 days status post laparoscopic cholecystectomy. He was originally seen in the emergency department and hospital a month ago for choledocholithiasis. He underwent ERCP with biliary and pancreatic stent placement after sphincterotomy and stone extraction. After his cholecystectomy, he was discharged home but came back and was readmitted the next day for urinary retention. He was found to have a urinary tract infection and subsequently constipation. I have been asked to see him today because of apparent increasing pain in his right upper quadrant. He does not have much of an appetite. He denies nausea and vomiting. He states that his pain has been about the same since the surgery, however he is concerned about the right-sided pain. White count is normal. Last LFTs were done 4 days ago. He had a CT scan 2 days ago of his chest, at the lower aspect does not show any collection in his right upper quadrant/above his liver. Allergies Allergy/AdvReac Type Severity Reaction Status Date / Time iodine Allergy Severe THROAT Verified 03/06/22 07:35 SWELLING shellfish derived Allergy Severe THROAT Verified 03/06/22 07:35 SWELLING acetaminophen Allergy Intermediate Chest Pain Verified 03/06/22 18:56 & SOB Iodinated Contrast Media Allergy Intermediate swelling Verified 03/06/22 07:35 hydrocodone AdvReac Intermediate GI ISSUES Verified 03/06/22 07:35 Plasma, Human Allergy Severe ANAPHYLAXIS Uncoded 03/06/22 07:35 Home Medications Medication Instructions Recorded Confirmed Type naloxone 4 mg/actuation nasal spray 1 sprays INTRANASAL Q2M PRN ea 07/27/19 03/06/22 History insulin glargine 100 unit/mL (3 50 unit SUBCUT BID #45 ml 09/19/21 03/06/22 Rx mL) subcutaneous pen (Lantus Solostar U-100 Insulin) duloxetine 60 mg capsule,delayed 60 mg PO QAM #30 cap 10/22/21 03/06/22 Rx release duloxetine 20 mg capsule,delayed 20 mg PO QAM #30 cap 01/07/22 03/06/22 Rx release diclofenac sodium 1 % topical gel 2 g TOPICAL QID PRN 02/02/22 03/06/22 History epinephrine 0.3 mg/0.3 mL 0.3 mg IM DIRECTED PRN 02/02/22 03/06/22 History injection, auto-injector insulin aspart U-100 100 unit/mL 0 unit SQ AC 02/26/22 03/06/22 History (3 mL) subcutaneous pen (Novolog Flexpen U-100 Insulin aspart) methylphenidate HCl 20 mg tablet 20 mg PO BID 02/26/22 03/06/22 History oxycodone 5 mg tablet 5 - 10 mg PO .[id number] PRN #12 tab 03/05/22 03/06/22 Rx clonazepam 2 mg tablet 2 mg PO BID 30 Days #60 tab 03/08/22 Rx Saccharomyces boulardii 250 mg 250 mg PO DAILY 21 Days #21 cap 03/11/22 Rx capsule apixaban 5 mg tablet (Eliquis) 5 mg PO BID #60 tab 03/11/22 Rx cephalexin 500 mg capsule 500 mg PO BID 21 Days #42 cap 03/11/22 Rx polyethylene glycol 3350 17 gram 17 g PO DAILY #30 packet 03/11/22 Rx oral powder packet (Miralax) sennosides 8.6 mg tablet (Senokot) 17.2 mg PO DAILY #30 tab 03/11/22 Rx tamsulosin 0.4 mg capsule 0.4 mg PO HS #30 cap 03/11/22 Rx Patient History Medical History Abnormal EKG 2016 > no further follow up needed per patient Anemia Anxiety Blood clotting disorder unsure of specific details > Dr. Azevedo PCP CKD (chronic kidney disease), stage III no specialist > improving per pt report Depression DM w/o complication type II, uncontrolled Most recent Hgb A1C 7.1 on 02/26/22 Esophagitis Gastrointestinal hemorrhage 2016 > resolved History of liver failure Due to acetaminophen intake per PCP records 01/2022 History of pleural effusion 2013> [facility] Hypertension Hypertriglyceridemia Insomnia Lesion of liver Under observation > Dr. Azevedo Myalgia and myositis Obesity Pancreatitis with biliary duct stent done 02/08/22 PTSD (post-traumatic stress disorder) Pulmonary embolism 4 total> last one 2016> Eliquis Transaminitis Surgical History History of cardiac cath 2016 due to chest pain> was clear per patient> no stents> [facility] History of colonoscopy History of ERCP History of esophagogastroduodenoscopy (EGD) History of shoulder surgery (~11/2019) left Hx laparoscopic cholecystectomy (03/05/22) Laparoscopic Cholecystectomy(Not Applicable) - Clayton Vela, DO Hx of surgical procedure colorectal for fissure S/P arthroscopy of shoulder 07/23/19 Dr. Cortes Carranza- Left shoulder arthroscopy with superior labrum anterior to posterior repair; Debridement of glenoid labrum; Synovectomy; Subacromial decompression with acromioplasty; Distal clavicle excision with excision of 10 mm of distal clavicle. 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 Beliefs That Will Affect Care: None marital status: Single Current Living Situation: Alone current occupational status: disabled Other Information That Helps Us Care for You: No Feels Safe at Home: Yes Safety Concerns: Feels Safe At This Time Childhood Exposure to Second-Hand Smoke: No Dental Care, Regularly: Yes Physical Activity Frequency: Does not Exercise Seatbelt Use: always Sunscreen Use: No Assistive Devices: None Review of Systems Review of Systems: All systems reviewed & are unremarkable except as noted in HPI & below Physical Exam Constitutional: WD/WN, vitals as above Neck: trachea midline, no thyromegaly Respiratory: normal respiratory effort; no respiratory distress and no labored breathing Cardiovascular: Rate/Rhythm: regular rate and regular rhythm Gastrointestinal (Abdomen): Inspection/Auscultation: abdomen normal to inspection and + abdomen distended (Mild distention) Percussion/Palpation: + abdomen tender (Right upper quadrant and incisional) and abdomen soft; no guarding and abdomen not rigid Musculoskeletal: Extremities: no cyanosis and no clubbing Skin: no rashes, warm and dry Psychiatric: A+Ox3, euthymic affect Results & Data ([facility]) Vital Signs (Past 12 Hours) Vital Signs Temp Pulse Pulse Pulse Resp BP Pulse Ox 03/11/22 11:19 36.7 C 84 16 155/93 H 94 03/11/22 07:44 74 03/11/22 07:07 36.7 C 71 18 164/99 H 94 03/11/22 02:44 37.1 C 68 18 153/77 H 93 03/11/22 00:42 86 Laboratory Results 03/11/22 03/11/22 03/11/22 Range/Units 11:40 07:32 06:07 Sodium (136-145) mmol/L Potassium (3.5-5.1) mmol/L Chloride (98-107) mmol/L Carbon Dioxide (21-32) mmol/L Anion Gap (3-11) BUN (6-23) mg/dl Creatinine (0.6-1.4) mg/dl Est Cr Clr Drug Dosing ml/min Est GFR ( Amer) ml/min Est GFR (Non-Af Amer) ml/min BUN/Creatinine Ratio (10-20) Glucose (70-99(Fasting)) mg/dl POC Glucose 111 H 99 (70-99) mg/dl Calcium (8.5-10.1) mg/dl Total Bilirubin Pending Direct Bilirubin Pending AST Pending ALT Pending Alkaline Phosphatase Pending Total Protein Pending Albumin Pending 03/11/22 03/10/22 03/10/22 Range/Units 06:07 20:22 16:44 Sodium 142 (136-145) mmol/L Potassium 3.1 L (3.5-5.1) mmol/L Chloride 108 H (98-107) mmol/L Carbon Dioxide 29 (21-32) mmol/L Anion Gap 5 (3-11) BUN 7 (6-23) mg/dl Creatinine 1.04 (0.6-1.4) mg/dl Est Cr Clr Drug Dosing 115.5 ml/min Est GFR ( Amer) 97.3 ml/min Est GFR (Non-Af Amer) 83.9 ml/min BUN/Creatinine Ratio 6.7 L (10-20) Glucose 90 (70-99(Fasting)) mg/dl POC Glucose 89 72 (70-99) mg/dl Calcium 8.5 (8.5-10.1) mg/dl Total Bilirubin Direct Bilirubin AST ALT Alkaline Phosphatase Total Protein Albumin
[2022-03-11 12:13] LABS: Bilirubin Direct 0.2 mg/dl (0-0.2); Bilirubin,Total 0.5 mg/dl (0.2-1.0); Total Protein 6.3 gm/dl (6.0-8.3)
--- NOTE | 2022-03-11 12:34 | Pharmacy Report ---
Pharmacy Glycemic Short Note 2 - Date of Service March 11, 2022 - Glycemic Short BSG Results (Last 24 hours): 03/10/22 03/10/22 03/11/22 16:44 20:22 06:07 Glucose 90 POC Glucose 72 89 03/11/22 03/11/22 07:32 11:40 Glucose POC Glucose 99 111 H OUTPATIENT ANTIDIABETIC REGIMEN: * Lantus 50 units SQ BID * Novolog 12 units SQ AC * HbA1c = 7.1% (02/26/22) ASSESSMENT: 03/11/22: * BSGs trending on the lower range, loosen CF/CR at this time * Decrease Lantus tomorrow if blood sugars remain below goal 03/10/22: * BSGs have been fairly stable for the past ~48hr since re-starting Lantus at a reduced dose. * Pt is no longer receiving steroids. * No changes required at this time. 03/08 * Patient received total of 83 units of insulin yesterday, of which 60 units were basal. Pred 50 mg x 3 doses started last evening - BSGs trending up * BSG 273 mg/dL this morning, scheduled basal dose of 60 units for this morning, however patient refused. Spoke with RN and patient concerned taking long acting since he is not eating solid foods and on clears/liquids. I spoke with RN that we will add a scale for basal at dinner and to call us if patient has any concerns as we can work with him and give him a dose he feels comfortable with * Lunch BSG trending down but still elevated at 258 03/07 * Patient received total of 123 units of insulin yesterday, of which 100 units were basal insulin * Fasting BSG 152 mg/dL, patient not eating/no carb coverage documented on DEC - feel that with the current basal dosing and no PO intake anticipate BSGs to trend down * I held this AM's basal insulin, no PO intake this morning or at lunch time - will resume basal insulin for tonight. Plan to cut back by ~50% for now. On other admissions patient required closer to 40-60 units of basal insulin per day and that was with eating 03/06 * 51 yo M admitted secondary to urinary retention. Pharmacy has been consulted to assist with inpatient glycemic management. Presented with BSG of 336 mg/dL and potassium of 6.4 mmol/L. He was given 5 units of IV regular insulin in the ED. * BSG upon transfer to the floor was 323 mg/dL. Gave an additional 5 units of IV regular insulin (to equal 10 unit max for hyperkalemia). Spoke with attending who will repeat BMP this afternoon to monitor K. Started home dose of Lantus 50 units BID. Given hyperglycemia, will start Novolog based on weight/stress of 3. Will add overnight checks for the first night. PLAN FOR INPATIENT GLYCEMIC CONTROL: * Basal insulin * Lantus 20 units SQ BID * Bolus insulin * NovoLog per scale ACHS or Q6hrs while NPO * Goal Range: Low 110 mg/dL - High 140 mg/dL * Correction Factor: 20 mg/dL/unit * Nutritional / Prandial insulin per carb ratio of 1 unit per 6 grams CHO consumed
[2022-03-11] MEDS: TAMSULOSIN HCL 0.4 MG CAP PO SCH (20:36)
--- NOTE | 2022-03-11 22:55 | Hospitalist Progress Note ---
Date of Service March 11, 2022 Assessment & Plan (1) Ileus: Plan: 2nd to recent lap shawnee, recent pancreatitis, etc. resolved. (2) Acute prostatitis: Plan: suspected based on JOO findings 03/09. plan keflex course post-d/c x 3 weeks (had 1 week of Rx inpatient). flomax. kumar. f/u urology post-d/c. (3) BPH loc w urin obs/LUTS: Plan: s/p kumar placement this admission. s/p institution of flomax. with suspected acute prostatitis. cont keflex. (4) Acute urinary retention: Plan: s/p kumar. likely due to BPH in setting of recent anesthesia for lap shawnee. acute prostatitis also likely played a role. (5) BRIDGETTE (acute kidney injury): Plan: resolved. likely multifactorial including obstruction from BPH/retention, etc. repeat BMP am for stability. (6) Sinus tachycardia: Plan: resolved likely due to recent acute anemia (7) Anemia: Plan: Fe studies c/w early Fe def anemia. s/p venofer 300mg IV x 3 doses. H/H remain stable. (8) DM type 2 (diabetes mellitus, type 2): Plan: Glycemic consult appreciated by pharmacy. Recent a1c 7.1%. BSGs well controlled. (9) S/P laparoscopic cholecystectomy: Plan: POD #6 s/p lap shawnee for gallstones & chronic cholecystitis. Incisions c/d/i. Ileus resolved ; constipation resolved. had been eating, now c/o abd pain in the RUQ and no appetite. asked gen surgery to see to ensure nothing going on from surgical standpoint. LFTs today wnl . (10) History of liver failure: Plan: 01/2022 resolved fortunately recent LFTs now wnl (11) Hypertension: Plan: labile likely due to pain, irritability, etc trend for now (12) History of pulmonary embolus (PE): Plan: multiple episodes in the past CTA chest neg for PE this admission. Dopplers b/l LEs neg for DVT as well. cont eliquis 5mg BID. (13) Depression: Plan: on cymbalta 80mg day + klonipin 2mg BID for anxiety I asked psych to see in consult - he appears quite depressed, sleeping most of the day, not engaging, not participating in care activities, etc I am concerned his depression has worsened in the face of his numerous medical issues of late Plan: hold on d/c today pending gen surg & psych consults Admission and Anticipated Discharge Date Admission Date: March 06, 2022 Subjective patient sleeping when I came to see him he reports "my stomach hurts" and did not eat breakfast later in the day he did not eat lunch he did have 2 large BMs yesterday following multiple bowel agents he thinks the laxatives yesterday took away his appetite no vomiting continues to pass copious flatus when asked about depression he reports ongoing issues with such over the last few months "I just want to get better" he openly admits his spirits are quite low he reports he has not spoken to his development scientist which is the person that would pick him up from the hospital he confirms he indeed has housing locally in [place] [employer] he was agreeable to speaking to psych about his troubles tele overnight wnl Review of Systems Review of Systems: gen - no fever; fatigue, lack of appetite cv - no cp, no orthopnea pulm - no dyspnea GI - no vomiting despite the abd pain - kumar draining urine well Physical Exam Physical Exam: gen - NAD, flat affect, laying in bed comfortably neck - no JVD mouth - MMM heart - RRR, s1 s2, no murmur lungs - CTA b/l abd - soft, mild incisional tenderness over lap shawnee incisions, BS+, no distension ext - no edema, pulses 2+ b/l skin - abdominal wall incisions c/d/i psych - a/o x3 but flat affect Results & Data Results & Data ([facility]) Vital Signs (Past 12 Hours) Vital Signs Temp Pulse Resp BP Pulse Ox 03/11/22 19:25 36.8 C 97 H 20 136/86 92 03/11/22 15:07 86 18 153/102 H 94 03/11/22 11:19 36.7 C 84 16 155/93 H 94 Laboratory Results Laboratory Results - last 24 hr 03/11/22 03/11/22 03/11/22 06:07 06:07 07:32 Sodium 142 Potassium 3.1 L Chloride 108 H Carbon Dioxide 29 Anion Gap 5 BUN 7 Creatinine 1.04 Est Cr Clr Drug Dosing 115.5 Est GFR ( Amer) 97.3 Est GFR (Non-Af Amer) 83.9 BUN/Creatinine Ratio 6.7 L Glucose 90 POC Glucose 99 Calcium 8.5 Total Bilirubin 0.5 Direct Bilirubin 0.2 AST 27 ALT 21 Alkaline Phosphatase 120 H Total Protein 6.3 Albumin 3.0 L 03/11/22 03/11/22 03/11/22 11:40 16:52 20:23 Sodium Potassium Chloride Carbon Dioxide Anion Gap BUN Creatinine Est Cr Clr Drug Dosing Est GFR ( Amer) Est GFR (Non-Af Amer) BUN/Creatinine Ratio Glucose POC Glucose 111 H 157 H 151 H Calcium Total Bilirubin Direct Bilirubin AST ALT Alkaline Phosphatase Total Protein Albumin PG Care Time/CCT Total # of Minutes Spent Total Time Spent with Patient: Total time spent is greater than 50% in coordination of care (as documented) at patient's floor/unit and/or counseling patient: Coding Level of Care Code 90007 Subseq Hosp Care Lvl 3 Diagnoses Ileus K56.7 Acute prostatitis N41.0 BPH loc w urin obs/LUTS N40.1 Acute urinary retention R33.8 BRIDGETTE (acute kidney injury) N17.9 Sinus tachycardia R00.0 Anemia D64.9 DM type 2 (diabetes mellitus, type 2) E11.9 S/P laparoscopic cholecystectomy Z90.49 History of liver failure Z87.19 Hypertension I10 History of pulmonary embolus (PE) Z86.711 Depression F32.89 Depression Type: other depression (1) Depression Depression Type: other depression Qualified Code(s): F32.89 - Other specified depressive episodes
[2022-03-12] MEDS: cephALEXin 500 MG CAP PO SCH (07:45)
[2022-03-12] MEDS: APIXABAN 5 MG TABLET PO SCH (07:46)
[2022-03-12] MEDS: DULoxetine HCL 20 MG CAP PO SCH (07:46)
[2022-03-12] MEDS: DULoxetine HCL 60 MG CAP PO SCH (07:46)
[2022-03-12] MEDS: DOCUSATE SODIUM/SENNA 50/8.6MG TAB PO SCH (07:46)
[2022-03-12] MEDS: POLYETHYLENE (MIRALAX) 17 GM PACK PO SCH (07:47)
--- NOTE | 2022-03-12 08:17 | Surgery Progress Note ---
Date of Service March 12, 2022 Assessment & Plan (1) S/P laparoscopic cholecystectomy: Plan: He is doing well postoperatively at this point His LFTs remains normal and is tolerating regular diet He will follow-up with me next week in the clinic We discussed that he needs to follow-up with GI for his biliary stent removal as scheduled Surgery will sign off please call with any questions or concerns Admission and Anticipated Discharge Date Admission Date: March 06, 2022 Subjective Patient seen and examined. Denies any nausea vomiting. Tolerating a diet. Had a bowel movement yesterday. Afebrile. Complains of minimal incisional pain. Review of Systems Constitutional: no fever and no chills Physical Exam Constitutional: WD/WN, vitals as above Gastrointestinal (Abdomen): Soft, minimally tender, nondistended Incisions healing well without erythema or drainage Results & Data ([facility]) Vital Signs (Past 12 Hours) Vital Signs Temp Pulse Pulse Resp BP Pulse Ox 03/12/22 07:54 36.8 C 89 18 149/99 H 96 03/12/22 07:13 75 03/12/22 03:02 36.7 C 80 18 147/94 H 96 03/11/22 23:20 97 H 03/11/22 22:51 37.1 C 96 H 20 127/74 96 PG Care Time/CCT Total # of Minutes Spent Total Time Spent with Patient: Total time spent is greater than 50% in coordination of care (as documented) at patient's floor/unit and/or counseling patient: Coding Level of Care Code 07455 Subseq Hosp Care Lvl 1 Diagnoses S/P laparoscopic cholecystectomy Z90.49
[2022-03-12] MEDS: INSULIN ASPART PER UNIT SC SCH ×2 (08:41→12:12)
[2022-03-12] MEDS: clonazePAM 1 MG TAB PO SCH (08:45)
[2022-03-12] MEDS ORDERED: INSULIN GLARGINE SOLOSTAR 100 UNITS/ML 3 ML PEN SQ SCH (09:00)
[2022-03-12 10:18] LABS: Potassium 3.6 mmol/L (3.5-5.1)
[2022-03-12 10:19] LABS: BUN Creatinine Ratio 8.7 (10-20); Calcium 8.9 mg/dl (8.5-10.1); Creatinine Clr Calc Pharmacy 113.4 ml/min; Est GFR (African American) 97.3 ml/min; Est GFR (Non-African American) 83.9 ml/min; Magnesium 1.7 mg/dl (1.7-2.4)
--- NOTE | 2022-03-12 12:02 | Discharge Summary ---
Date of Service March 12, 2022 Admission HPI Per Admitting Provider This is a pleasant 51 yo male with past medical history of: gallstone pancreatitis requiring biliary stent and 10 days of cirpofloxacin on 02/08 to 02/11, fulminant liver failure with BRIDGETTE on CKD hospitalized from 01/19- 02/02 (see 02/02 scanned discharge summary report) DM2, hypertension, recurrent PEs on Eliquis, depression, anxiety, and ADHD who presents today with right upper quadrant pain. The patient also had a cholescystectomy on 03/05. Patient reports having constant moderate dull lower abdominal pain radiates to his perineum and difficulty urinating. This prompted the patient to return to the ER. Patient reports he was told that he may have prostatitis. He had similar symptoms on 02/26. Patient denies any fever chills. In the ED, patient had a kumar placed and 1.4 liters were removed. Labs were drawn patient had a WBC >20K, hyperkalemia >6, and BRIDGETTE. Admission was called Discharge Exam gen - NAD, flat affect, laying in bed comfortably neck - no JVD mouth - MMM heart - RRR, s1 s2, no murmur lungs - CTA b/l abd - soft, mild incisional tenderness over lap shawnee incisions, BS+, no distension ext - no edema, pulses 2+ b/l skin - abdominal wall incisions c/d/i psych - a/o x3 but flat affect Discharge Data Allergies Allergy/AdvReac Type Severity Reaction Status Date / Time iodine Allergy Severe THROAT Verified 03/06/22 07:35 SWELLING shellfish derived Allergy Severe THROAT Verified 03/06/22 07:35 SWELLING acetaminophen Allergy Intermediate Chest Pain Verified 03/06/22 18:56 & SOB Iodinated Contrast Media Allergy Intermediate swelling Verified 03/06/22 07:35 hydrocodone AdvReac Intermediate GI ISSUES Verified 03/06/22 07:35 Plasma, Human Allergy Severe ANAPHYLAXIS Uncoded 03/06/22 07:35 Consultations 03/06/22 08:39 ED Decision to Admit Stat 03/06/22 08:57 Consult Urology Routine 03/11/22 10:41 Consult General Surgery Routine 03/11/22 15:53 Consult Psychiatry Routine Ordered Studies 03/06/22 07:24 CT abd pelvis wo con Stat 03/07/22 15:04 US venous doppler LE BI Urgent 03/08/22 09:00 CT angio chest PE protocol Urgent Hospital Course (1) Ileus: 2nd to recent lap shawnee, recent pancreatitis, etc. resolved. (2) Acute prostatitis: suspected based on JOO findings 03/09. plan keflex course post-d/c x 3 weeks (had 1 week of Rx inpatient). flomax. kumar. f/u urology post-d/c. (3) BPH loc w urin obs/LUTS: s/p kumar placement this admission. s/p institution of flomax. with suspected acute prostatitis. cont keflex. (4) Acute urinary retention: s/p kumar. likely due to BPH in setting of recent anesthesia for lap shawnee. acute prostatitis also likely played a role. (5) BRIDGETTE (acute kidney injury): resolved. likely multifactorial including obstruction from BPH/retention, etc. repeat BMP am for stability. (6) Sinus tachycardia: resolved likely due to recent acute anemia (7) Anemia: Fe studies c/w early Fe def anemia. s/p venofer 300mg IV x 3 doses. H/H remain stable. (8) DM type 2 (diabetes mellitus, type 2): Glycemic consult appreciated by pharmacy. Recent a1c 7.1%. BSGs well controlled. (9) S/P laparoscopic cholecystectomy: POD #6 s/p lap shawnee for gallstones & chronic cholecystitis. Incisions c/d/i. Ileus resolved ; constipation resolved. had been eating, now c/o abd pain in the RUQ and no appetite. asked gen surgery to see to ensure nothing going on from surgical standpoint. LFTs today wnl . (10) History of liver failure: 01/2022 resolved fortunately recent LFTs now wnl (11) Hypertension: labile likely due to pain, irritability, etc trend for now (12) History of pulmonary embolus (PE): multiple episodes in the past CTA chest neg for PE this admission. Dopplers b/l LEs neg for DVT as well. cont eliquis 5mg BID. (13) Depression: on cymbalta 80mg day + klonipin 2mg BID for anxiety I asked psych to see in consult - he appears quite depressed, sleeping most of the day, not engaging, not participating in care activities, etc I am concerned his depression has worsened in the face of his numerous medical issues of late hold on d/c today pending gen surg & psych consults Discharge Plan Discharge Items Patient Disposition: Home - Self-Care Reason For Visit: URINARY RETENTION Discharge Diagnosis: 1. urinary retention (inability to empty the bladder) - due to "BPH" and prostatitis 2. placement of kumar catheter for #1 3. iron deficiency anemia - infusion of IV iron x 3 4. ileus - resolved 5. constipation - resolved 6. acute prostatitis (infection of prostate gland) 7. BPH - enlarged prostate 8. recent cholecystectomy on 03/05/[address] Clayton Vela 9. acute liver failure earlier this year - fully resolved 10. depression - follow-up needed Activity: Per Instructions section Lifting: No more than 10 pounds Bathing Comment: Ok to shower; no tub baths or swimming Sexual Activity: Wait until after follow-up appointment Exercise/Sports: Wait until after follow-up appointment Driving/Machine Use: NO DRIVING if you are taking oxycodone pain killer medication Non-emergency contact: Primary Care Provider, Surgeon and Urologist Call non-emergency contact if: you have any medication questions, your symptoms worsen, your pain is not controlled, your pain is worsening, you have a fever, your wound has increased redness, your wound has increased drainage and your wound pain has increased Follow-up/Referrals: Edgardo Azevedo DO [Primary Care Provider] - 03/18/22 9:20 am ( ) Clayton Vela DO [Physician] - 03/18/22 11:15 am (7-[address] Vela; post-op check from your gall bladder surgery) Ed Buenrostro MD [Physician] - (7-[address] Buenrostro for kumar catheter management, elevated PSA blood test, enlarged prostate, prostatitis. Dr. Buenrostro's office will call you with an appointment.) Diet: Carb Consistent or DM2 and Low Fat Ambulatory Orders: Prostate Specific Antigen (Routine) Timeframe: 1 Month Facility: [facility] - Location: Laboratory Main [place] Ordered By: Fe Forte Attending Provider Instructions: Mr Delaney, You were admitted to [facility] due to difficulty voiding as well as abdominal pain & various blood work abnormalities. There was concern for urinary tract infection at time of admission as well. A kumar catheter was placed into the bladder due to the urinary retention/voiding difficulty. Your stay was complicated by an "ileus" (the bowels get sleepy because of recent surgery, anesthesia, illness, pain killer medication, etc), severe constipation, anemia, and abdominal pain. The ileus is now resolved. Your constipation is improved. You received 3 infusions of iron for your anemia / low iron levels. IV, then oral, antibiotics were given to treat for possible urinary tract infection / prostatitis. [facility]rology will see you in the clinic to manage the kumar catheter, recheck your PSA blood test for the prostate, follow-up on the enlarged prostate/prostatitis, etc. Recommendations - 1. antibiotics - * cephalexin 500mg twice daily x 21 days; first dose TONIGHT; this is for prostatitis * probiotics once daily x 21 days - to help prevent diarrhea from the antibiotics 2. enlarged prostate - * tamsulosin 0.4mg each night at bedtime 3. constipation - both medications are [id number] - * senokot 2 tabs daily * miralax one serving daily; some people need to take miralax twice daily * aim for 1 soft bowel movement daily 4. gall bladder surgery post-op pain - * you were prescribed oxycodone by the surgeons following your surgery * you can take this as needed for upper abdominal pain related to your surgery * do not drink alcohol while taking oxycodone * do not drive a car while taking oxycodone * THIS MEDICATION WILL MAKE YOUR CONSTIPATION WORSE 5. resume your previous insulin regimen. Please know that we were giving you substantially less insulin while hospitalized. Upon return home resume your prior doses but please be diligent in checking your sugars 2-3 times each day. If you are having "lows" (blood sugars less than 70) please contact Dr Azevedo and he can adjust the insulin doses for you. 6. depression - please see a psychiatrist/counselor in the next few weeks to address your depression. 7. drain the catheter leg bag as needed and as directed. 8. OK to resume your Eliquis 5mg twice daily for prevention of blood clots. Follow-up - see separate section Return to [facility] if - * you have fevers over 100 degrees * you have worsening abdominal pain * you have vomiting * you have severe constipation or severe diarrhea * you have any concerns with respect to your urinary catheter * you have any concerns about the health & appearance of your surgical incisions (redness, drainage, etc) * you have worsening depression, thoughts of hurting yourself or someone else, etc * any other concerns It was our pleasure to care for you at [facility]! Best wishes for a speedy recovery, Dr Patel Pending Studies at Discharge: No Stand-Alone Forms: My [facility], Smoking Cessation Medications and DC Order Prescriptions: New tamsulosin 0.4 mg Capsule 0.4 mg PO HS Qty: 30 RF: 2 cephalexin 500 mg Capsule 500 mg PO BID 21 Days Qty: 42 RF: 0 Eliquis 5 mg Tablet 5 mg PO BID Qty: 60 RF: 0 polyethylene glycol 3350 [Miralax] 17 gram Powder In Packet 17 g PO DAILY Qty: 30 RF: 0 Saccharomyces boulardii 250 mg capsule 250 mg PO DAILY 21 Days Qty: 21 RF: 0 sennosides [Senokot] 8.6 mg tablet 17.2 mg PO DAILY Qty: 30 RF: 0 Continued Lantus Solostar U-100 Insulin 100 unit/mL (3 mL) insulin pen 50 unit subcut BID Qty: 45 RF: 1 duloxetine 60 mg capsule,delayed release(DR/EC) 60 mg PO QAM Qty: 30 RF: 11 duloxetine 20 mg capsule,delayed release(DR/EC) 20 mg PO QAM Qty: 30 RF: 11 clonazepam 2 mg tablet 2 mg PO BID 30 Days Qty: 60 RF: 0 naloxone 4 mg/actuation spray,non-aerosol 1 sprays intranasal Q2M PRN (Reason: (Drug) Ingestion) RF: 0 epinephrine 0.3 mg/0.3 mL auto-injector 0.3 mg IM DIRECTED PRN (Reason: Allergic Reaction) RF: 0 insulin aspart U-100 [Novolog Flexpen U-100 Insulin] 100 unit/mL (3 mL) insulin pen 0 unit SQ AC RF: 0 methylphenidate HCl 20 mg tablet 20 mg PO BID RF: 0 Hold Instructions: Pancreatitis oxycodone 5 mg tablet 5 - 10 mg PO .[id number] PRN (Reason: pain, for initial therapy, max 6 tabs per day) Qty: 12 RF: 0 Discontinued diclofenac sodium 1 % gel 2 g topical QID PRN (Reason: Pain) RF: 0 Discharge Orders: Discharge Order (Routine); Ordered 03/12/22 Ordered By: Charlie Davis/Other Patient Handouts: ED BPH (Enlarged Prostate), ED Prostatitis, ED Urinary Retention, Male Admission Data Admit Date/Time: 03/06/22 08:45 Attending Provider: Charlie Patel Admit Provider: Naresh Calabrese Primary Care Provider: Edgardo Azevedo Other Providers: Daniel Bingham ; Jaspreet Magallanes ; Delroy Blevins ; Fe Montemayor ; Jadiel Tapia ; Gwendolyn Cardenas ; Bisi Bradley ; Trisha Dan ; Catalino Alvarenga ; Eddie Pantoja ; Eliza Lopez ; Mariajose Dan ; Ed Buenrostro ; Naresh Calabrese ; Jadiel Azevedo ; Vidhi Suarez ; Yumiko Dudley ; Kisha Louis Coding Diagnoses Ileus K56.7 Acute prostatitis N41.0 BPH loc w urin obs/LUTS N40.1 Acute urinary retention R33.8 BRIDGETTE (acute kidney injury) N17.9 Sinus tachycardia R00.0 Anemia D64.9 DM type 2 (diabetes mellitus, type 2) E11.9 S/P laparoscopic cholecystectomy Z90.49 History of liver failure Z87.19 Hypertension I10 History of pulmonary embolus (PE) Z86.711 Depression F32.89 Depression Type: other depression
--- NOTE | 2022-03-12 12:10 | Psychiatric Consultation ---
Date of Consultation March 12, 2022 Impression / Recommendations Impression This is a 51 yo with a history of depression, anxiety admitted medically. Diagnostically consistent with adjustment disorder with mixed anxiety and depressed mood. Acute risk of self-harm is low given denial of SI. They are not interested in nor do they meet criteria for inpatient psychiatric hospitalization at this time. However, they may benefit from medication adjustments, and therapy which they are agreeable to trying. Sodium is normal and no evidence of prolonged QTc. Starting mirtazapine to help with insomnia and for mood augmentation which he consents to. He also provided consent and requested that my psychiatric consult note be faxed to his PCP office so they follow-up on these recommendations. -Starting mirtazapine 7.5 mg qhs, this could be increased in the outpatient setting to 15mg qhs and then further titrated to 30mg qhs to further target insomnia and depression if needed -Continue with Cymbalta, may want to consider reducing dose to 60mg per day if 80 mg dose is not offering further benefit -Ok to continue with methylphenidate once he returns to work -Recommend tapering his Klonopin given addictive potential and potential increased risks of respiratory depression with opioids. Would reduce by 0.125mg to 0.25 mg every 1-2 weeks to discontinuation. Consider hydroxyzine 25mg BID prn for anxiety after benzo discontinuation -psychiatric liason provided resources for local mental health services, Flory plans to contact local practice to establish outpatient therapy once he gets his stent removed and is feeling better physically (1) Adjustment disorder with mixed anxiety and depressed mood: -safe for discharge from psychiatric standpoint Risk Factors Assessment Do You Have Access To A Gun?: No Psych History Identifying Data 51 yo man living in [facility] with multiple recent serious medical illnesses admitted medically for abdominal pain and urinary retention. Psychiatry was consulted for depression. Chief Complaint "I think my mood change was due to all this medical stuff". History of Present Illness Jordan reports a history of depression on Cymbalta (also to help with nerve pain) with recent worsening in the setting of recent medical issues including hepatitis, gallstone pancreatitis and then ileus and urinary retention. 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 He was previously set to start outpatient therapy with a practice in [place] and plans to reach out to them again now that he's more medically stable to start outpatient therapy. Reviewed that he feels Cymbalta isn't doing enough to help with sleep. Reviewed past med trials and he's tried multiple SSRIs and SNRIs before. He's interested in mirtazapine and would like to start it today even though he's discharging rather than wait for an outpatient appointment to do so. Reviewed risks including but not limited to urinary retention, constipation, sedation, increased appetite, dizziness. He consents to starting this and agrees to stop it should he develop any side effects and wait to restart until he discusses it with his PCP should this o ccur. He denies any SI and is future oriented. Was given resource book by psych liason which he's looked at and is appreciative of. 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 Reviewed risks of Klonopin, especially with opioid use, and goal of tapering this with his PCP as he is no longer finding it helpful and understands you can develop tolerance quickly. No history of josef. Some recent anxiety due to racial microaggressions he's experienced in the community and he may move to [place] at some point as he feels this may be a more welcoming and safe community for him. PHQ-9 score of 21 but highest scores were for low energy, difficulty with sleep and appetite changes related to medical issues. 0 for Q9. Past Psychiatric History Current Psychiatric Diagnosis: depression, anxiety Outpatient Services: none currently Do You Have Access To A Gun?: No History of Previous Suicide Attempt: No Allergies Allergy/AdvReac Type Severity Reaction Status Date / Time iodine Allergy Severe THROAT Verified 03/06/22 07:35 SWELLING shellfish derived Allergy Severe THROAT Verified 03/06/22 07:35 SWELLING acetaminophen Allergy Intermediate Chest Pain Verified 03/06/22 18:56 & SOB Iodinated Contrast Media Allergy Intermediate swelling Verified 03/06/22 07:35 hydrocodone AdvReac Intermediate GI ISSUES Verified 03/06/22 07:35 Plasma, Human Allergy Severe ANAPHYLAXIS Uncoded 03/06/22 07:35 Home Medications Medication Instructions Recorded Confirmed Type naloxone 4 mg/actuation nasal spray 1 sprays INTRANASAL Q2M PRN ea 07/27/19 03/06/22 History insulin glargine 100 unit/mL (3 50 unit SUBCUT BID #45 ml 09/19/21 03/06/22 Rx mL) subcutaneous pen (Lantus Solostar U-100 Insulin) duloxetine 60 mg capsule,delayed 60 mg PO QAM #30 cap 10/22/21 03/06/22 Rx release duloxetine 20 mg capsule,delayed 20 mg PO QAM #30 cap 01/07/22 03/06/22 Rx release diclofenac sodium 1 % topical gel 2 g TOPICAL QID PRN 02/02/22 03/06/22 History epinephrine 0.3 mg/0.3 mL 0.3 mg IM DIRECTED PRN 02/02/22 03/06/22 History injection, auto-injector insulin aspart U-100 100 unit/mL 0 unit SQ AC 02/26/22 03/06/22 History (3 mL) subcutaneous pen (Novolog Flexpen U-100 Insulin aspart) methylphenidate HCl 20 mg tablet 20 mg PO BID 02/26/22 03/06/22 History oxycodone 5 mg tablet 5 - 10 mg PO .[id number] PRN #12 tab 03/05/22 03/06/22 Rx clonazepam 2 mg tablet 2 mg PO BID 30 Days #60 tab 03/08/22 Rx Saccharomyces boulardii 250 mg 250 mg PO DAILY 21 Days #21 cap 03/11/22 Rx capsule apixaban 5 mg tablet (Eliquis) 5 mg PO BID #60 tab 03/11/22 Rx cephalexin 500 mg capsule 500 mg PO BID 21 Days #42 cap 03/11/22 Rx polyethylene glycol 3350 17 gram 17 g PO DAILY #30 packet 03/11/22 Rx oral powder packet (Miralax) sennosides 8.6 mg tablet (Senokot) 17.2 mg PO DAILY #30 tab 03/11/22 Rx tamsulosin 0.4 mg capsule 0.4 mg PO HS #30 cap 03/11/22 Rx mirtazapine 15 mg tablet (Remeron) 7.5 mg PO HS 14 Days #7 tab 03/12/22 Rx Personal History Living Arrangements: Home (in [employer] with his suppression crew leader ) 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 Azevedo PCP CKD (chronic kidney disease), stage III no specialist > improving per pt report Depression DM w/o complication type II, uncontrolled Most recent Hgb A1C 7.1 on 02/26/22 Esophagitis Gastrointestinal hemorrhage 2016 > resolved History of liver failure Due to acetaminophen intake per PCP records 01/2022 History of pleural effusion 2013> [facility] Hypertension Hypertriglyceridemia Insomnia Lesion of liver Under observation > Dr. Azevedo Myalgia and myositis Obesity Pancreatitis with biliary duct stent done 02/08/22 PTSD (post-traumatic stress disorder) Pulmonary embolism 4 total> last one 2016> Eliquis Transaminitis Surgical History History of cardiac cath 2016 due to chest pain> was clear per patient> no stents> [facility] History of colonoscopy History of ERCP History of esophagogastroduodenoscopy (EGD) History of shoulder surgery (~11/2019) left Hx laparoscopic cholecystectomy (03/05/22) Laparoscopic Cholecystectomy(Not Applicable) - Clayton Vela, DO Hx of surgical procedure colorectal for fissure S/P arthroscopy of shoulder 07/23/19 Dr. Cortes Carranza- Left shoulder arthroscopy with superior labrum anterior to posterior repair; Debridement of glenoid labrum; Synovectomy; Subacromial decompression with acromioplasty; Distal clavicle excision with excision of 10 mm of distal clavicle. Family History Mother , s/p brain aneurysm Aneurysm Other Hypertension Denies family history of Ovarian cancer Prostate cancer Myocardial infarction Breast cancer Colorectal cancer Social History Smoking Status: Never smoker Second Hand Exposure: No; Hx Alcohol Use: No (Former alcohol use - long time ago) Hx Substance Use: No Preferred Language: Croatian Communication Ability: Effective Visual Impairment: No Limitations Hearing Ability: Normal General Agent Required: No Beliefs That Will Affect Care: None marital status: Single Current Living Situation: Alone current occupational status: disabled Feels Safe at Home: Yes Childhood Exposure to Second-Hand Smoke: No Dental Care, Regularly: Yes Physical Activity Frequency: Does not Exercise Seatbelt Use: always Sunscreen Use: No Assistive Devices: None Physical Exam Psychiatric: Orientation: alert and oriented x 3 Apperance: appropriately dressed and appropriately groomed Eye Contact: good eye contact Motor Behavior: no abnormal motor movements Speech: normal rate/rhythm/volume of speech Affect: euthymic affect (smiling) Mood: + depressed mood and + anxious mood Thought Process: goal directed thought process Thought Content: reality based without delusions Suicidal Thoughts: denies suicidal thoughts Homicidal Thoughts: denies homicidal thoughts Hallucinations: no auditory hallucinations and no visual hallucinations Cognition: recent memory grossly intact, remote memory grossly intact, attention grossly intact and language grossly intact Estimated Intelligence: consistent with education level Insight: + fair insight Judgement: + fair judgement Vital Signs (Past 24 Hours): Last Vital Signs Temp 36.8 C 03/12/22 11:42 Pulse 94 H 03/12/22 11:42 Resp 18 03/12/22 11:42 BP 142/93 H 03/12/22 11:42 Pulse Ox 93 03/12/22 11:42 Review of Systems All systems reviewed & are unremarkable except as noted in HPI & below Results & Data (PSY) Medications Administered Apixaban (Apixaban 5 Mg Tablet) 5 mg PO BID DIAMOND Stop: 04/07/22 10:29 Last Admin: 03/12/22 07:46 Dose: 5 mg Documented by: [id number] Admin: 03/11/22 20:37 Dose: 5 mg Documented by: [id number] Admin: 03/11/22 08:55 Dose: 5 mg Documented by: [id number] Admin: 03/10/22 20:40 Dose: 5 mg Documented by: [id number] Admin: 03/10/22 08:52 Dose: 5 mg Documented by: [id number] Admin: 03/09/22 21:09 Dose: 5 mg Documented by: [id number] Admin: 03/09/22 08:35 Dose: 5 mg Documented by: [id number] Admin: 03/08/22 21:32 Dose: 5 mg Documented by: [id number] Admin: 03/08/22 13:13 Dose: 5 mg Documented by: [id number] Cephalexin HCl (Cephalexin 500 Mg Cap) 500 mg PO BID DIAMOND Stop: 03/18/22 20:59 Last Admin: 03/12/22 07:45 Dose: 500 mg Documented by: [id number] Admin: 03/11/22 20:37 Dose: 500 mg Documented by: [id number] Admin: 03/11/22 08:55 Dose: 500 mg Documented by: [id number] Admin: 03/10/22 20:40 Dose: 500 mg Documented by: [id number] Admin: 03/10/22 08:52 Dose: 500 mg Documented by: [id number] Admin: 03/09/22 21:09 Dose: 500 mg Documented by: [id number] Admin: 03/09/22 09:38 Dose: 500 mg Documented by: [id number] Admin: 03/08/22 22:09 Dose: 500 mg Documented by: [id number] Clonazepam (Clonazepam 1 Mg Tab) 2 mg PO BID DIAMOND Stop: 04/05/22 10:14 Last Admin: 03/12/22 08:45 Dose: 2 mg Documented by: [id number] Admin: 03/11/22 20:36 Dose: 2 mg Documented by: [id number] Admin: 03/11/22 08:59 Dose: 2 mg Documented by: [id number] Admin: 03/10/22 20:38 Dose: 2 mg Documented by: [id number] Admin: 03/10/22 08:56 Dose: 2 mg Documented by: [id number] Admin: 03/09/22 21:07 Dose: 2 mg Documented by: [id number] Admin: 03/09/22 08:47 Dose: 2 mg Documented by: [id number] Admin: 03/08/22 21:30 Dose: 2 mg Documented by: [id number] Admin: 03/08/22 10:17 Dose: 2 mg Documented by: [id number] Admin: 03/07/22 20:57 Dose: 2 mg Documented by: [id number] Admin: 03/07/22 09:08 Dose: 2 mg Documented by: [id number] Admin: 03/06/22 20:47 Dose: 2 mg Documented by: [id number] Admin: 03/06/22 11:02 Dose: 2 mg Documented by: [id number] Duloxetine HCl (Duloxetine Hcl 20 Mg Cap) 20 mg PO QAM DIAMOND Stop: 04/05/22 10:29 Last Admin: 03/12/22 07:46 Dose: 20 mg Documented by: [id number] Admin: 03/11/22 08:55 Dose: 20 mg Documented by: [id number] Admin: 03/10/22 08:52 Dose: 20 mg Documented by: [id number] Admin: 03/09/22 08:35 Dose: 20 mg Documented by: [id number] Admin: 03/08/22 10:17 Dose: 20 mg Documented by: [id number] Admin: 03/07/22 09:04 Dose: 20 mg Documented by: [id number] Admin: 03/06/22 11:00 Dose: 20 mg Documented by: [id number] Duloxetine HCl (Duloxetine Hcl 60 Mg Cap) 60 mg PO [facility] Stop: 04/05/22 10:29 Last Admin: 03/12/22 07:46 Dose: 60 mg Documented by: [id number] Admin: 03/11/22 08:55 Dose: 60 mg Documented by: [id number] Admin: 03/10/22 08:52 Dose: 60 mg Documented by: [id number] Admin: 03/09/22 08:35 Dose: 60 mg Documented by: [id number] Admin: 03/08/22 10:17 Dose: 60 mg Documented by: [id number] Admin: 03/07/22 09:04 Dose: 60 mg Documented by: [id number] Admin: 03/06/22 11:00 Dose: 60 mg Documented by: [id number] Insulin Aspart (Insulin Aspart Per Unit) 0 units SC [facility]; Protocol Stop: 04/05/22 11:29 Last Admin: 03/12/22 08:41 Dose: Not Given Documented by: [id number] Admin: 03/11/22 20:38 Dose: 11 units Documented by: [id number] Cosigned by: [id number] Admin: 03/11/22 17:55 Dose: 5 units Documented by: [id number] Cosigned by: [id number] Admin: 03/11/22 13:09 Dose: Not Given Documented by: [id number] Admin: 03/11/22 08:55 Dose: Not Given Documented by: [id number] Admin: 03/10/22 20:44 Dose: Not Given Documented by: [id number] Admin: 03/10/22 17:22 Dose: 8 units Documented by: [id number] Cosigned by: [id number] Admin: 03/10/22 12:40 Dose: 9 units Documented by: [id number] Cosigned by: [id number] Admin: 03/10/22 08:49 Dose: 4 units Documented by: [id number] Cosigned by: [id number] Admin: 03/09/22 21:07 Dose: 5 units Documented by: [id number] Cosigned by: [id number] Admin: 03/09/22 17:26 Dose: 16 units Documented by: [id number] Cosigned by: [id number] Admin: 03/09/22 12:43 Dose: 3 units Documented by: [id number] Cosigned by: [id number] Admin: 03/09/22 08:35 Dose: 3 units Documented by: [id number] Cosigned by: [id number] Admin: 03/08/22 21:27 Dose: Not Given Documented by: [id number] Admin: 03/08/22 18:01 Dose: 5 units Documented by: [id number] Cosigned by: [id number] Admin: 03/08/22 13:18 Dose: 20 units Documented by: [id number] Cosigned by: [id number] Admin: 03/08/22 10:16 Dose: 20 units Documented by: [id number] Cosigned by: [id number] Admin: 03/07/22 22:09 Dose: 6 units Documented by: [id number] Cosigned by: [id number] Admin: 03/07/22 17:18 Dose: 5 units Documented by: [id number] Cosigned by: [id number] Admin: 03/07/22 12:15 Dose: 3 units Documented by: [id number] Cosigned by: [id number] Admin: 03/07/22 09:03 Dose: 1 units Documented by: [id number] Cosigned by: [id number] Admin: 03/06/22 20:47 Dose: Not Given Documented by: [id number] Cosigned by: [id number] Admin: 03/06/22 16:58 Dose: Not Given Documented by: [id number] Admin: 03/06/22 12:17 Dose: 12 units Documented by: [id number] Cosigned by: [id number] Insulin Glargine (Insulin Glargine Solostar 100 Units/Ml 3 Ml Pen) 18 units SQ BID [facility]; Protocol Stop: 04/11/22 08:59 Last Admin: 03/12/22 08:47 Dose: 6 units Documented by: [id number] Cosigned by: [id number] Oxycodone HCl (Oxycodone Hcl Ir 5 Mg Tab (Immediate Release)) 5 mg PO Q6H PRN PRN Reason: Pain Stop: 03/23/22 14:46 Last Admin: 03/12/22 07:54 Dose: 5 mg Documented by: [id number] Polyethylene Glycol (Polyethylene (Miralax) 17 Gm Pack) 17 gm PO BID DIAMOND Stop: 04/09/22 20:59 Last Admin: 03/12/22 07:47 Dose: Not Given Documented by: [id number] Admin: 03/11/22 20:38 Dose: Not Given Documented by: [id number] Admin: 03/11/22 08:56 Dose: 17 gm Documented by: [id number] Admin: 03/10/22 20:42 Dose: Not Given Documented by: [id number] Senna/Docusate Sodium (Docusate Sodium/Senna 50/8.6mg Tab) 1 tab PO QAM DIAMOND Stop: 04/10/22 08:59 Last Admin: 03/12/22 07:46 Dose: 1 tab Documented by: [id number] Admin: 03/11/22 08:59 Dose: 1 tab Documented by: [id number] Tamsulosin HCl (Tamsulosin Hcl 0.4 Mg Cap) 0.4 mg PO HS [facility] Stop: 04/05/22 20:59 Last Admin: 03/11/22 20:36 Dose: 0.4 mg Documented by: [id number] Admin: 03/10/22 20:40 Dose: 0.4 mg Documented by: [id number] Admin: 03/09/22 21:09 Dose: 0.4 mg Documented by: [id number] Admin: 03/08/22 21:32 Dose: 0.4 mg Documented by: [id number] Admin: 03/07/22 20:57 Dose: 0.4 mg Documented by: [id number] Admin: 03/06/22 20:47 Dose: 0.4 mg Documented by: [id number] Coding Level of Care Code 53784 Inpt Consult Level 3 Diagnoses Adjustment disorder with mixed anxiety and depressed mood F43.23
[2022-03-12] MEDS ORDERED: MIRTAZAPINE TAB 15 MG TAB PO SCH (21:00)
== END 2022-03-12 13:53 | disposition home or self-care (01) | DRG 726 ==
LOC: ED 04:42 → SUATTDRO 08:45 → 2W 08:45

== ENCOUNTER 2022-08-06 15:38 | Observation (INO) ==
[2022-08-06] MEDS ORDERED: SODIUM CHLORIDE 0.9% 500 ML IV STA (16:02)
[2022-08-06] MEDS ORDERED: ONDANSETRON INJ 2 MG/ML 2 ML VIAL IV STA ×2 (16:24→16:45)
[2022-08-06 16:38] LABS: Basophils # (auto) 0.03 K/uL (0-0.2); Basophils % (auto) 0.6 %; Eosinophils # (auto) 0.11 K/uL (0-0.50); Eosinophils % (auto) 2.3 %; Hematocrit (blood only) 42.2 % (40.1-51.0); Hemoglobin 14.6 g/dl (14.0-18.0); Immature Granulocytes # (auto) 0.01 K/uL (0.00-0.02); Immature Granulocytes % (auto) 0.2 %; Lymphocytes # (auto) 1.58 K/uL (1.2-3.4); Lymphocytes % (auto) 33.7 %; Mean Corpuscular Hemoglobin 29.2 pg (25.0-34.0); Mean Corpuscular Hgb Conc 34.6 g/dL (32.0-36.0); Mean Corpuscular Volume 84.4 fL (80.0-100.0); Mean Platelet Volume 12.2 fL (9.4-12.4); Monocytes % (auto) 6.4 %; Neutrophils # (auto) 2.66 K/uL (1.4-6.5); Neutrophils % (auto) 56.8 %; Platelet Count 209 K/uL (130-400); RDW Coefficient of Variation 13.8 % (11.5-14.5); RDW Standard Deviation 42.5 fL (36.4-46.3); White Blood Count 4.69 K/ul (4.8-10.8)
[2022-08-06] MEDS ORDERED: MoRPHine SULFATE 10 MG/ML CARP/VIAL IV STA ×2 (16:45→17:50)
[2022-08-06] MEDS ORDERED: SODIUM CHLORIDE 0.9% 1000ML 1,000 ML IV ONE (16:45)
[2022-08-06] MEDS ORDERED: methylPREDNISolone 125 MG/2 ML VIAL IV STA (16:54)
[2022-08-06] MEDS ORDERED: diphenhydrAMINE 50 MG/ML VIAL IV STA (16:54)
--- NOTE | 2022-08-06 16:58 | Emergency Department Note ---
Impression & Plan Abdominal pain, Hyperglycemia, Leucocytosis, Hypertension, Elevated troponin, Acute pancreatitis ED Provider Note NAME: LASHANDA GAMEZ AGE: 52 SEX: M : 1970 ARRIVES VIA: Walk-In INFORMANT: Patient ED PROVIDER(S): Ha Fox DO CHIEF COMPLAINT: abdominal pain HPI: Patient is a 52-year-old male who presents to the ER for periumbilical abdominal pain. Feels like his previous bouts of pancreatitis. He has a history of LVH, pulmonary embolism, thrombocytopenia, BRIDGETTE, liver failure and pancreatitis with a previous cholecystectomy. Currently on apixaban. Pain is a 10 out of 10 without radiation. Associated with nausea. Started 2 weeks ago and has been getting significantly worse. Today he cannot eat or drink. Denies any dysuria, urgency, or frequency. No other exacerbating or remitting factors. ROS: See above HPI for pertinent positives & negatives. A total of 10 systems reviewed and were otherwise negative. PAST MEDICAL HISTORY:See Below PAST SURGICAL HISTORY:See Below FAMILY HISTORY:See Below SOCIAL HISTORY:See Below HOME MEDICATIONS:See Below ALLERGIES:See Below VITALS:See Below PHYSICAL EXAMINATION: GENERAL: Sitting up in bed, alert, well appearing, well nourished, no distress, non-toxic EYE EXAM: normal conjunctiva. OROPHARYNX: mucous membranes are moist NECK: supple, no nuchal rigidity, no adenopathy, non-tender LUNGS: Clear to auscultation. Normal chest wall mechanics HEART: no murmurs, S1 normal and S2 normal ABDOMEN: abdomen soft, periumbilical tenderness, normo-active bowel sounds, no masses, no rebound or guarding. UPPER EXTREMITIES: upper extremities are grossly normal. LOWER EXTREMITIES: No pitting edema. NEURO EXAM: Normal sensorium, cranial nerves II-XII grossly intact, normal speech, no gross weakness of arms, no gross weakness of legs. MEDICAL DECISION MAKING: Patient is a 52-year-old male who presents the ER for abdominal pain. He does this feels like his previous bouts of pancreatitis. IV was established blood work was obtained. Labs show no significant anemia. Mild leukopenia 4000. BMP with slightly elevated glucose of 372. I did give him IV insulin and this trend down to 70s. He was given IV fluids Zofran and multiple doses of morphine. Troponin was elevated at 30. Lipase was normal. He was hypertensive and slightly tachycardic and I do believe this was secondary to his pain. He was updated bedside. CT abdomen pelvis was unremarkable. Question if he can still make a lipase at this point with the shock liver recently in combination with severe pancreatitis. He was updated bedside discussed with the hospitalist admitted for further work-up. Triage Nursing notes reviewed. Limited review of prior medical records performed Vital Signs: reviewed and remarkable for tachy Differential diagnosis: Differential diagnoses includes but is not limited to gastritis, peptic ulcer disease, GERD, gallbladder disease, pancreatitis, small bowel obstruction, acute coronary syndrome, pericarditis, ischemic bowel, irritable bowel disease, irritable bowel syndrome, appendicitis, diverticulitis, malignancy, hernia, urinary tract infection, torsion, [/ectopic (if female)], p erforation, trauma, infectious. ER treatment provided: See below Diagnostics interpreted by me: ECG: Sinus tachycardia rate of [address] wave changes in the inferior leads QTC 443 No STEMI change from previous Cardiac Monitoring: An order was placed for continuous cardiac monitoring. The monitor shows a rate of 110 with sinus rhythm. Laboratory studies: As stated above and show below. Imaging studies: CT abdomen pelvis as described above Consultation(s): Discussed with not any hospitalist for further evaluation Procedures: none Critical Care: None Past Med/Surg History Medical History (Updated 08/06/22 @ 23:21 by Ha Fox DO) Abnormal EKG 2017 > no further follow up needed per patient Anxiety CKD (chronic kidney disease), stage III no specialist > improving per pt report Depression DM w/o complication type II, uncontrolled Most recent Hgb A1C 7.1 on 02/26/22 Esophagitis Gastrointestinal hemorrhage 2016 > resolved History of alcohol abuse History of pleural effusion 2013> [facility] Hypertriglyceridemia Insomnia Lesion of liver Under observation > Dr. Azevedo Myalgia and myositis Obesity Pancreatitis with biliary duct stent done 02/08/22 PTSD (post-traumatic stress disorder) Pulmonary embolism 4 total> last one 2016> Eliquis Transaminitis Surgical History History of cardiac cath 2016 due to chest pain> was clear per patient> no stents> [facility] History of colonoscopy History of ERCP History of esophagogastroduodenoscopy (EGD) History of shoulder surgery (~11/2019) left Hx laparoscopic cholecystectomy (03/05/22) Laparoscopic Cholecystectomy(Not Applicable) - Clayton Vela, DO Hx of surgical procedure colorectal for fissure S/P arthroscopy of shoulder 07/23/19 Dr. Cortes Carranza- Left shoulder arthroscopy with superior labrum anterior to posterior repair; Debridement of glenoid labrum; Synovectomy; Subacromial decompression with acromioplasty; Distal clavicle excision with excision of 10 mm of distal clavicle. Status post laparoscopic cholecystectomy Family History Mother , s/p brain aneurysm Aneurysm Other Hypertension Denies family history of Ovarian cancer Prostate cancer Myocardial infarction Breast cancer Colorectal cancer Social History Smoking Status: Unknown if ever smoked Second Hand Exposure: No; Hx Alcohol Use: No (Former alcohol use - long time ago) Hx Substance Use: No Preferred Language: Luxembourgish Communication Ability: Effective Visual Impairment: No Limitations Hearing Ability: Normal Body Team Member Required: No Beliefs That Will Affect Care: None marital status: Single Current Living Situation: Alone current occupational status: disabled Feels Safe at Home: Yes Childhood Exposure to Second-Hand Smoke: No Dental Care, Regularly: Yes Physical Activity Frequency: Does not Exercise Seatbelt Use: always Sunscreen Use: No Assistive Devices: None Allergies Allergies Allergy/AdvReac Type Severity Reaction Status Date / Time iodine Allergy Severe THROAT Verified 08/06/22 17:29 SWELLING shellfish derived Allergy Severe THROAT Verified 08/06/22 17:29 SWELLING acetaminophen Allergy Intermediate Chest Pain Verified 08/06/22 17:29 & SOB Iodinated Contrast Media Allergy Intermediate swelling Verified 08/06/22 17:29 hydrocodone AdvReac Intermediate GI ISSUES Verified 08/06/22 17:29 Plasma, Human Allergy Severe ANAPHYLAXIS Uncoded 08/06/22 17:29 Home Meds Home Medications Medication Instructions Recorded Confirmed naloxone 4 mg/actuation nasal spray 1 sprays intranasal Q2M PRN (Drug) 07/27/19 08/06/22 Ingestion epinephrine 0.3 mg/0.3 mL 0.3 mg IM DIRECTED PRN Allergic 02/02/22 08/06/22 injection, auto-injector Reaction insulin aspart U-100 100 unit/mL 0 sliding scale dose subcut AC 02/26/22 08/06/22 (3 mL) subcutaneous pen (Novolog Flexpen U-100 Insulin aspart) apixaban 5 mg tablet (Eliquis) 5 mg PO BID 08/06/22 08/06/22 baclofen 10 mg tablet 10 mg PO TID PRN MUSCLE SPASMS 08/06/22 08/06/22 polyethylene glycol 3350 17 gram 17 g PO DAILY PRN Constipation 08/06/22 08/06/22 oral powder packet (Miralax) sennosides 8.6 mg tablet (Senokot) 17.2 mg PO DAILY PRN Constipation 08/06/22 08/06/22 Previous Rx's Medication Instructions Recorded duloxetine 60 mg capsule,delayed 60 mg PO QAM #30 caps 10/22/21 release duloxetine 20 mg capsule,delayed 20 mg PO QAM #30 caps 01/07/22 release insulin glargine 100 unit/mL (3 50 unit (0.5 mL) subcut BID #45 mL 03/25/22 mL) subcutaneous pen (Lantus Solostar U-100 Insulin) clonazepam 2 mg tablet 2 mg PO BID 30 days #60 tabs 07/26/22 tamsulosin 0.4 mg capsule 0.4 mg PO HS #30 caps 07/31/22 methylphenidate HCl 20 mg tablet 20 mg PO BID #60 tabs 08/02/22 Results & Data (ED) Vital Signs Vital Signs - 24 hr 08/06/22 15:57 08/06/22 17:39 08/06/22 17:39 Temperature 37.3 C Temperature Source Oral Pulse Rate 121 H 112 H Pulse Rhythm Regular Pulse Strength Normal Respiratory Rate 22 20 Respiratory Effort / Characteristics Non-Labored Spontaneous Non-Labored Respiratory Depth Normal Normal Blood Pressure 172/92 H 168/112 H Blood Pressure Mean 118 130 Pulse Oximetry 94 97 97 Oxygen Delivery Method Room Air Room Air Room Air Sepsis Recent Fever Within 48 Hours Yes Sepsis New/Unexplained Change in Mental Status No Sepsis Action Taken by Nursing No Action Required Laboratory Data Result diagrams: 08/06/22 16:21 08/06/22 16:21 Lab Results 08/06/22 08/06/22 08/06/22 Range/Units 16:21 16:21 17:53 WBC 4.69 L (4.8-10.8) K/ul RBC 5.00 (4.63-6.08) M/uL Hgb 14.6 (14.0-18.0) g/dl Hct 42.2 (40.1-51.0) % MCV 84.4 (80.0-100.0) fL MCH 29.2 (25.0-34.0) pg MCHC 34.6 (32.0-36.0) g/dL RDW Std Deviation 42.5 (36.4-46.3) fL RDW Coeff of Lillie 13.8 (11.5-14.5) % Plt Count 209 (130-400) K/uL MPV 12.2 (9.4-12.4) fL Immature Gran % (Auto) 0.2 % Neut % (Auto) 56.8 % Lymph % (Auto) 33.7 % [place] % (Auto) 6.4 % Eos % (Auto) 2.3 % Baso % (Auto) 0.6 % Neut # (Auto) 2.66 (1.4-6.5) K/uL Lymph # (Auto) 1.58 (1.2-3.4) K/uL [place] # (Auto) 0.30 (0.24-0.82) K/uL Eos # (Auto) 0.11 (0-0.50) K/uL Baso # (Auto) 0.03 (0-0.2) K/uL Immature Gran # (Auto) 0.01 (0.00-0.02) K/uL Sodium 136 (136-145) mmol/L Potassium 3.7 (3.5-5.1) mmol/L Chloride 97 L (98-107) mmol/L Carbon Dioxide 28 (21-32) mmol/L Anion Gap 11 (3-11) BUN 17 (6-23) mg/dl Creatinine 1.35 (0.6-1.4) mg/dl Est Cr Clr Drug Dosing 91.2 ml/min Est GFR ( Amer) 70.4 ml/min Est GFR (Non-Af Amer) 60.8 ml/min BUN/Creatinine Ratio 12.6 (10-20) Glucose 372 H* (70-99(Fasting)) mg/dl POC Glucose 254 H (70-99) mg/dl Calcium 9.4 (8.5-10.1) mg/dl Total Bilirubin 0.6 (0.2-1.0) mg/dl AST 57 H (13-39) U/L ALT 43 (7-52) U/L Alkaline Phosphatase 171 H (34-104) U/L Troponin I High Sens 32.1 H D (0-20) pg/ml Total Protein 8.4 H (6.0-8.3) gm/dl Albumin 4.2 (3.4-5.0) gm/dl Globulin 4.2 H (2.5-4.0) gm/dl Albumin/Globulin Ratio 1.0 (0.9-2) Lipase 44 (11-82) U/L SARS-CoV-2, RNA, NAAT (NEGATIVE) 08/06/22 Range/Units 18:19 WBC (4.8-10.8) K/ul RBC (4.63-6.08) M/uL Hgb (14.0-18.0) g/dl Hct (40.1-51.0) % MCV (80.0-100.0) fL MCH (25.0-34.0) pg MCHC (32.0-36.0) g/dL RDW Std Deviation (36.4-46.3) fL RDW Coeff of Lillie (11.5-14.5) % Plt Count (130-400) K/uL MPV (9.4-12.4) fL Immature Gran % (Auto) % Neut % (Auto) % Lymph % (Auto) % [place] % (Auto) % Eos % (Auto) % Baso % (Auto) % Neut # (Auto) (1.4-6.5) K/uL Lymph # (Auto) (1.2-3.4) K/uL [place] # (Auto) (0.24-0.82) K/uL Eos # (Auto) (0-0.50) K/uL Baso # (Auto) (0-0.2) K/uL Immature Gran # (Auto) (0.00-0.02) K/uL Sodium (136-145) mmol/L Potassium (3.5-5.1) mmol/L Chloride (98-107) mmol/L Carbon Dioxide (21-32) mmol/L Anion Gap (3-11) BUN (6-23) mg/dl Creatinine (0.6-1.4) mg/dl Est Cr Clr Drug Dosing ml/min Est GFR ( Amer) ml/min Est GFR (Non-Af Amer) ml/min BUN/Creatinine Ratio (10-20) Glucose (70-99(Fasting)) mg/dl POC Glucose (70-99) mg/dl Calcium (8.5-10.1) mg/dl Total Bilirubin (0.2-1.0) mg/dl AST (13-39) U/L ALT (7-52) U/L Alkaline Phosphatase (34-104) U/L Troponin I High Sens (0-20) pg/ml Total Protein (6.0-8.3) gm/dl Albumin (3.4-5.0) gm/dl Globulin (2.5-4.0) gm/dl Albumin/Globulin Ratio (0.9-2) Lipase (11-82) U/L SARS-CoV-2, RNA, NAAT NEGATIVE (NEGATIVE) Administered Medications Apixaban (Apixaban 5 Mg Tablet) 5 mg PO BID DIAMOND Stop: 09/05/22 20:59 Last Admin: 08/06/22 21:39 Dose: 5 mg Documented By: LAT Clonazepam (Clonazepam 1 Mg Tab) 2 mg PO BID DIAMOND Stop: 09/05/22 20:59 Last Admin: 08/06/22 21:45 Dose: 2 mg Documented By: LAT Hydromorphone HCl (Hydromorphone Inj 0.5 Mg/0.5 Ml Syr) 0.25 mg IV Q3H PRN PRN Reason: Pain (1,2,3,4,5) & Pre PT Stop: 08/20/22 20:15 Last Admin: 08/06/22 22:50 Dose: 0.25 mg Documented By: LAT Lactated Ringer's (Lr) 1,000 mls @ 125 mls/hr IV .Q8H DIAMOND Stop: 09/05/22 19:29 Last Admin: 08/06/22 20:44 Dose: 125 mls/hr Documented By: LAT Cefazolin Sodium 1,000 mg/ (Syringe) 7.5 mls @ 2.5 mls/min IV Q8H DIAMOND Stop: 08/16/22 20:59 Last Admin: 08/06/22 21:41 Dose: 2.5 mls/min Documented By: LAT Insulin Aspart (Insulin Aspart Per Unit) 0 units SC ACHS DIAMOND Stop: 09/05/22 20:59 Last Admin: 08/06/22 21:58 Dose: 1 units Documented By: JEAN-PAUL Co-signed By: YI Insulin Glargine (Lantus Per Unit Charge) 50 units SQ BID DIAMOND Stop: 09/05/22 20:59 Last Admin: 08/06/22 21:58 Dose: 50 units Documented By: JEAN-PAUL Co-signed By: YI Methylphenidate HCl (Methylphenidate Hcl 10 Mg Tablet) 20 mg PO BID@0900,1830 DIAMOND Stop: 08/20/22 18:29 Last Admin: 08/06/22 21:45 Dose: 20 mg Documented By: JEAN-PAUL Ondansetron HCl (Ondansetron Inj 2 Mg/Ml 2 Ml Vial) 4 mg IV Q6H PRN PRN Reason: Nausea Stop: 09/05/22 20:15 Last Admin: 08/06/22 22:53 Dose: 4 mg Documented By: JEAN-PAUL Tamsulosin HCl (Tamsulosin Hcl 0.4 Mg Cap) 0.4 mg PO HS DIAMOND Stop: 09/05/22 20:59 Last Admin: 08/06/22 21:41 Dose: 0.4 mg Documented By: JEAN-PAUL Discontinued Medications Diphenhydramine HCl (Diphenhydramine 50 Mg/Ml Vial) 50 mg IV NOW STA Stop: 08/06/22 16:55 Last Admin: 08/06/22 17:16 Dose: 50 mg Documented By: LILIANA Hydromorphone HCl (Hydromorphone Inj 1 Mg/Ml Syringe) 1 mg IV NOW STA Stop: 08/06/22 19:19 Last Admin: 08/06/22 19:20 Dose: 1 mg Documented By: SPENCER Sodium Chloride (Nss) 500 mls @ 999 mls/hr IV .Q31M STA Stop: 08/06/22 16:32 Last Infusion: 08/06/22 17:25 Dose: 0 mls/hr Documented By: Admin: 08/06/22 16:26 Dose: 999 mls/hr Documented By: DARREN Sodium Chloride (Nss 1000ml) 1,000 mls @ 999 mls/hr IV .Q1H1M ONE Stop: 08/06/22 17:45 Last Infusion: 08/06/22 18:16 Dose: 0 mls/hr Documented By: Admin: 08/06/22 17:15 Dose: 999 mls/hr Documented By: LILIANA Pantoprazole Sodium 40 mg/ (Syringe) 10 mls @ 5 mls/min IV NOW ONE Stop: 08/06/22 20:46 Last Admin: 08/06/22 21:38 Dose: 5 mls/min Documented By: JEAN-PAUL Famotidine 20 mg/ Syringe 5 mls @ 2.5 mls/min IV NOW ONE Stop: 08/06/22 20:46 Last Admin: 08/06/22 21:38 Dose: 2.5 mls/min Documented By: JEAN-PAUL Insulin Human Regular (Novolin-R Insulin Per Unit Charge) 7 units IV NOW STA Stop: 08/06/22 17:13 Last Admin: 08/06/22 17:22 Dose: 7 units Documented By: LILIANA Co-signed By: JAKE Ioversol (Optiray 350 100ml) 85 ml IV ONCE ONE Stop: 08/06/22 17:35 Last Admin: 08/06/22 17:35 Dose: 85 ml Documented By: CHANTEL Methylprednisolone (Methylprednisolone 125 Mg/2 Ml Vial) 125 mg IV NOW STA Stop: 08/06/22 16:55 Last Admin: 08/06/22 17:14 Dose: 125 mg Documented By: LILIANA Morphine Sulfate (Morphine Sulfate 10 Mg/Ml Carp/Vial) 6 mg IV NOW STA Stop: 08/06/22 16:46 Last Admin: 08/06/22 17:14 Dose: 6 mg Documented By: LILIANA Morphine Sulfate (Morphine Sulfate 10 Mg/Ml Carp/Vial) 6 mg IV NOW STA Stop: 08/06/22 17:51 Last Admin: 08/06/22 18:05 Dose: 6 mg Documented By: LILIANA Ondansetron HCl (Ondansetron Inj 2 Mg/Ml 2 Ml Vial) 4 mg IV NOW STA Stop: 08/06/22 16:25 Last Admin: 08/06/22 16:29 Dose: 4 mg Documented By: DARREN Ondansetron HCl (Ondansetron Inj 2 Mg/Ml 2 Ml Vial) 4 mg IV NOW STA Stop: 08/06/22 16:46 Last Admin: 08/06/22 17:14 Dose: 4 mg Documented By: LILIANA Imaging Data Radiologist's Impression: Abdomen/Pelvis CT 08/06/22 16:[address] WITH IV CONTRAST CT DOSE: 1085.62 mGy.cm HISTORY: Mid abdominal pain. ? Pancreatitis TECHNIQUE: Multiaxial CT images of the abdomen and pelvis were performed following the use of intravenous contrast. A dose lowering technique was utiliz ed adhering to the principles of ALARA. COMPARISON STUDY: Abdomen and pelvis CT 03/23/2022. FINDINGS: The lung bases are clear. No pneumoperitoneum. No pneumatosis. No fractures within the visualized osseous structures. Nodular contour to the liver consistent with cirrhosis. There is also evidence for hepatic steatosis. Geographic hypodense areas within the central liver adjacent to the paul hepatis and gallbladder fossa favor focal fatty change. Prior cholecystectomy. Small amount of pneumobilia is noted. The main portal vein is patent. The pancreas, spleen, adrenal glands, and kidneys are within normal limits. No hydronephrosis. Lateral wall thickening is likely due to underdistention. The prostate gland is mildly enlarged. There is a single mildly enlarged periportal lymph node measuring 1.5 cm. This remains unchanged and could be due to the patient's cirrhosis. Normal caliber abdominal aorta. No pelvic free fluid or pelvic lymphadenopathy. Colonic diverticulosis. No evidence for acute diverticulitis. No bowel wall thickening or obstruction. Normal appendix. IMPRESSION: 1. No CT evidence for acute pancreatitis. 2. No bowel wall thickening or obstruction. 3. Cirrhotic liver with associated steatosis. 4. Cholecystectomy. 5. Normal appendix. ACT 112: Negative or not required by law. Electronically signed by: Pete Lawson M.D. 08/06/2022 5:52 PM Discharge Plan Visit Data Chief Complaint: Abdominal Pain Stated Complaint: STOMACH,BACK PAIN DUE TO PANCREITIS ED Provider: Ha Fox Discharge Problem: Abdominal pain, Hyperglycemia, Leucocytosis, Hypertension, Elevated troponin, Acute pancreatitis Patient Disposition: Admitted As Inpatient Discharge Instructions Interventions: ED Discharge Assessment Last Done: 08/06/22 19:56
[2022-08-06 17:05] LABS: Albumin Level 4.2 gm/dl (3.4-5.0); BUN Creatinine Ratio 12.6 (10-20); Bilirubin,Total 0.6 mg/dl (0.2-1.0); Calcium 9.4 mg/dl (8.5-10.1); Creatinine Clr Calc Pharmacy 91.2 ml/min; Est GFR (African American) 70.4 ml/min; Est GFR (Non-African American) 60.8 ml/min; Globulin 4.2 gm/dl (2.5-4.0); Potassium 3.7 mmol/L (3.5-5.1); Total Protein 8.4 gm/dl (6.0-8.3)
[2022-08-06 17:11] LABS: Troponin I High Sensitivity 32.1 pg/ml (0-20)
[2022-08-06] MEDS ORDERED: NovoLIN-R INSULIN PER UNIT CHARGE IV STA (17:12)
[2022-08-06] MEDS ORDERED: OPTIRAY 350 100ml IV ONE (17:34)
--- NOTE | 2022-08-06 17:53 | CT Scan Report ---
ABDOMEN AND PELVIS CT WITH IV CONTRAST CT DOSE: 1085.62 mGy.cm HISTORY: Mid abdominal pain. ? Pancreatitis TECHNIQUE: Multiaxial CT images of the abdomen and pelvis were performed following the use of intrave nous contrast. A dose lowering technique was utilized adhering to the principles of ALARA. COMPARISON STUDY: Abdomen and pelvis CT 03/23/2022. FINDINGS: The lung bases are clear. No pneumoperitoneum. No pneumatosis. No fractures within the visu alized osseous structures. Nodular contour to the liver consistent with cirrhosis. There is also evid ence for hepatic steatosis. Geographic hypodense areas within the central liver adjacent to the paul hepatis and gallbladder fossa favor focal fatty change. Prior cholecystectomy. Small amount of pneum obilia is noted. The main portal vein is patent. The pancreas, spleen, adrenal glands, and kidneys ar e within normal limits. No hydronephrosis. Lateral wall thickening is likely due to underdistention. The prostate gland is mildly enlarged. There is a single mildly enlarged periportal lymph node measur ing 1.5 cm. This remains unchanged and could be due to the patient's cirrhosis. Normal caliber abdomi nal aorta. No pelvic free fluid or pelvic lymphadenopathy. Colonic diverticulosis. No evidence for ac [place] diverticulitis. No bowel wall thickening or obstruction. Normal appendix. IMPRESSION: 1. No CT evidence for acute pancreatitis. 2. No bowel wall thickening or obstruction. 3. Cirrhotic liver with associated steatosis. 4. Cholecystectomy. 5. Normal appendix. ACT 112: Negative or not required by law. Electronically signed by: Pete Lawson M.D. 08/06/2022 5:52 PM
--- NOTE | 2022-08-06 18:22 | History & Physical Report ---
Date of Service August 06, 2022 Assessment & Plan (1) Intractable abdominal pain: Plan: - Exact etiology unclear as he has pain + nausea consistent w/ pancreatitis x 2 weeks, however no inflammation seen on CT and lipase not elevated. Post cholecystectomy. No findings on CT to suggest appendicitis diverticulitis, obstruction, duodenitis, gastritis, or prostatitis. Increased urinary frequency and subjectuvely reported abnormal appearing urine with hx of prostatitis is concerning for UTI/prostatitis, 2 episodes of darker red blood in stool w/in past 48 hours after recent alcohol binge concerning for gastritis. - Awaiting UA, given concern for a prostatitis/epididymitis will empirically start on cefazolin. - Supportive care with clear liquid diet, IVF for rehydration, IV Dilaudid for pain control as multiple morphine doses in ED have been ineffective. Zofran for nausea and will cover with Protonix BID given concerns for gastritis. - Repeat lipase in AM. (2) Elevated troponin: Plan: - Mildly elevated to 32, with tachycardia, hypertension, but no reports of chest pain. - EKG has some nonspecific T wave inversions in V4-6 that are present on prior EKGs. - Will trend troponin overnight. - PRN hydralazine for HTN overnight, prn Lopressor for tachycardia overnight. (3) Adjustment disorder with mixed anxiety and depressed mood: Plan: - Continue Klonopin and Cymbalta. (4) Acute kidney injury superimposed on CKD: Plan: - Cr mildly elevated at 1.35, baseline < 1.10, likely secondary to dehydration and possible UTI. - mIVF ordered, monitor on daily labs. - Avoid nephrotoxins, renally dose as able. (5) DM w/o complication type II, uncontrolled: Plan: - POC glucose 254, patient has not had anything to eat/drink all day. - Received 7 units of insulin in ED. - Continue on Lantus 50units BID with SSI. - A1c in AM. - Diabetic diet when progressed from clears. (6) Pulmonary embolism: Plan: - Multiple VTEs with blood clotting disorder, to remain on Eliquis BID indefinitely. - Missed this morning's dose 2/2 nausea, no other missed doses. Plan - Admit to med/tele. - SCDs, continue Eliquis for VTE ppx. - Full Code. 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 2 weeks ago, patient developed central/upper abdominal pain with associated nausea and poor appetite. It is sharp and stabbing and occurs after meals also comes intermittently throughout the day regardless of whether he had recently eaten. He has been managing this okay at home, however this morning the pain was very sharp and severe, 07/22, therefore he presented to the ED for further evaluation. While he has been nauseous, he has not been vomiting. He typically does not drink much alcohol given his history of liver failure, but did consume >5 beers/day this past weekend while watching sporting events. Over the past 2 days he has had 2 episodes of dark red blood with his bowel movements. He also notes he has been having diarrhea and more frequent urination than usual and notes his urine looks "off ", however denies dysuria or blood in his urine. He has had some chills at home but no reported fevers. He has not been able to take [id number] medications at home for his pain given his history of liver failure and the fact that he is on a blood thinner for chronic VTE which limits him from using Tylenol or NSAIDs. Upon presentation, he has been hypertensive and tachycardic, but afebrile with SPO2 >95% on room air. Labs remarkable for decreased WBC 4.69, Hgb and platelets within normal limits, stable. Creatinine is mildly bumped from with estimated baseline 11 0.0, is 1.35 today. Glucose elevated at 254 in the setting of not eating anything all day. AST 57, ALT 43, alk phos 171, ALT at/near baseline. His troponin is mildly elevated at 32. Lipase normal at 44. COVID-[address] A/P does not show any evidence of acute pancreatitis, bowel wall thickening, obstruction. Appendix appears normal, he is s/p cholecystectomy, does have cirrhotic liver with associated steatosis. His prostate is mildly enlarged. There is no pelvic free fluid or pelvic lymphadenopathy. Allergies Allergy/AdvReac Type Severity Reaction Status Date / Time iodine Allergy Severe THROAT Verified 08/06/22 17:29 SWELLING shellfish derived Allergy Severe THROAT Verified 08/06/22 17:29 SWELLING acetaminophen Allergy Intermediate Chest Pain Verified 08/06/22 17:29 & SOB Iodinated Contrast Media Allergy Intermediate swelling Verified 08/06/22 17:29 hydrocodone AdvReac Intermediate GI ISSUES Verified 08/06/22 17:29 Plasma, Human Allergy Severe ANAPHYLAXIS Uncoded 08/06/22 17:29 Home Medications Medication Instructions Recorded Confirmed Type naloxone 4 mg/actuation nasal spray 1 sprays intranasal Q2M PRN (Drug) 07/27/19 08/06/22 History Ingestion duloxetine 60 mg capsule,delayed 60 mg PO QAM #30 caps 10/22/21 08/06/22 Rx release duloxetine 20 mg capsule,delayed 20 mg PO QAM #30 caps 01/07/22 08/06/22 Rx release epinephrine 0.3 mg/0.3 mL 0.3 mg IM DIRECTED PRN Allergic 02/02/22 08/06/22 History injection, auto-injector Reaction insulin aspart U-100 100 unit/mL 0 sliding scale dose subcut AC 02/26/22 08/06/22 History (3 mL) subcutaneous pen (Novolog Flexpen U-100 Insulin aspart) insulin glargine 100 unit/mL (3 50 unit (0.5 mL) subcut BID #45 mL 03/25/22 08/06/22 Rx mL) subcutaneous pen (Lantus Solostar U-100 Insulin) clonazepam 2 mg tablet 2 mg PO BID 30 days #60 tabs 07/26/22 08/06/22 Rx tamsulosin 0.4 mg capsule 0.4 mg PO HS #30 caps 07/31/22 08/06/22 Rx methylphenidate HCl 20 mg tablet 20 mg PO BID #60 tabs 08/02/22 08/06/22 Rx apixaban 5 mg tablet (Eliquis) 5 mg PO BID 08/06/22 08/06/22 History baclofen 10 mg tablet 10 mg PO TID PRN MUSCLE SPASMS 08/06/22 08/06/22 History polyethylene glycol 3350 17 gram 17 g PO DAILY PRN Constipation 08/06/22 08/06/22 History oral powder packet (Miralax) sennosides 8.6 mg tablet (Senokot) 17.2 mg PO DAILY PRN Constipation 08/06/22 08/06/22 History Past Med/Surg History Medical History (Updated 08/06/22 @ 19:17 by Mey Phipps PA-C) Abnormal EKG 2017 > no further follow up needed per patient Anxiety CKD (chronic kidney disease), stage III no specialist > improving per pt report Depression DM w/o complication type II, uncontrolled Most recent Hgb A1C 7.1 on 02/26/22 Esophagitis Gastrointestinal hemorrhage 2016 > resolved History of alcohol abuse History of pleural effusion 2013> [facility] Hypertriglyceridemia Insomnia Lesion of liver Under observation > Dr. Azevedo Myalgia and myositis Obesity Pancreatitis with biliary duct stent done 02/08/22 PTSD (post-traumatic stress disorder) Pulmonary embolism 4 total> last one 2015> Eliquis Transaminitis Surgical History History of cardiac cath 2016 due to chest pain> was clear per patient> no stents> [facility] History of colonoscopy History of ERCP History of esophagogastroduodenoscopy (EGD) History of shoulder surgery (~11/2019) left Hx laparoscopic cholecystectomy (03/05/22) Laparoscopic Cholecystectomy(Not Applicable) - Clayton Vela, DO Hx of surgical procedure colorectal for fissure S/P arthroscopy of shoulder 07/23/19 Dr. Cortes Carranza- Left shoulder arthroscopy with superior labrum anterior to posterior repair; Debridement of glenoid labrum; Synovectomy; Subacromial decompression with acromioplasty; Distal clavicle excision with excision of 10 mm of distal clavicle. Status post laparoscopic cholecystectomy Family History Mother , s/p brain aneurysm Aneurysm Other Hypertension Denies family history of Ovarian cancer Prostate cancer Myocardial infarction Breast cancer Colorectal cancer Social History Smoking Status: Unknown if ever smoked Second Hand Exposure: No; Hx Alcohol Use: No (Former alcohol use - long time ago) Hx Substance Use: No Preferred Language: Kyrgyz Communication Ability: Effective Visual Impairment: No Limitations Hearing Ability: Normal Puzzle Assembler Required: No Beliefs That Will Affect Care: None marital status: Single Current Living Situation: Alone current occupational status: disabled Feels Safe at Home: Yes Childhood Exposure to Second-Hand Smoke: No Dental Care, Regularly: Yes Physical Activity Frequency: Does not Exercise Seatbelt Use: always Sunscreen Use: No Assistive Devices: None Review of Systems Review of Systems: Constitutional: ongoing chills and anorexia x 2 weeks; no weakness, fatigue, myalgias, night sweats Eyes: No diplopia, no worsening or blurred vision ENT: normal hearing, no trouble swallowing Respiratory: No cough, sputum, dyspnea at rest or on exertion Cardiovascular: No chest pain, tightness or palpitations Abdomen: diffuse abdominal pain, nausea, diarrhea with dark red blood x2; no vomiting or constipation : increased frequency and abnormal appearance of urine but denies dysuria, hematuria, urinary retention Musculoskeletal: No joint pain, calf pain, swelling Neurologic: No weakness, numbness/tingling, or balance problems Psychiatric: No anxiety or depression Skin: No rash or itch Physical Exam Physical Exam: General: awake, alert, no apparent distress Head: Normocephalic, atraumatic ENT: PERRL, EOMI, no pharyngeal exudate, mucous membranes moist Chest: Clear to auscultation, on room air, no adventitious breath sounds Cardiac: tachycardic rate and regular rhythm, no murmur, no JVD, normal peripheral pulses, good capillary refill Abdominal: diffusely TTP throughout abdomen; NABS x 4 quadrants, soft, no rebound, guarding or tenderness Extremities: Normal inspection, no peripheral edema or erythema, calfs nontender to palpation Psych: Normal mood and affect Neuro: AAO x 3, strength intact bilaterally and rated 5/5, no motor deficits, speech is clear, no peripheral sensory deficits Skin: no rash or erythema Results & Data Results & Data ([facility]) Vital Signs (Past 12 Hours) Vital Signs Temp Pulse Resp BP Pulse Ox O2 Del Method 08/06/22 15:57 37.3 C 121 H 22 172/92 H 94 Room Air Laboratory Results Abnormal lab results 08/06/22 08/06/22 08/06/22 Range/Units 16:21 16:21 17:53 WBC 4.69 L (4.8-10.8) K/ul Chloride 97 L (98-107) mmol/L Glucose 372 H* (70-99(Fasting)) mg/dl POC Glucose 254 H (70-99) mg/dl AST 57 H (13-39) U/L Alkaline Phosphatase 171 H (34-104) U/L Troponin I High Sens 32.1 H D (0-20) pg/ml Total Protein 8.4 H (6.0-8.3) gm/dl Globulin 4.2 H (2.5-4.0) gm/dl Diagnostic Findings Abdomen/Pelvis CT 08/06/22 16:[address] WITH IV CONTRAST CT DOSE: 1085.62 mGy.cm HISTORY: Mid abdominal pain. ? Pancreatitis TECHNIQUE: Multiaxial CT images of the abdomen and pelvis were performed following the use of intravenous contrast. A dose lowering technique was utilized adhering to the principles of ALARA. COMPARISON STUDY: Abdomen and pelvis CT 03/23/2022. FINDINGS: The lung bases are clear. No pneumoperitoneum. No pneumatosis. No fractures within the visualized osseous structures. Nodular contour to the liver consistent with cirrhosis. There is also evidence for hepatic steatosis. Geographic hypodense areas within the central liver adjacent to the paul hepatis and gallbladder fossa favor focal fatty change. Prior cholecystectomy. Small amount of pneumobilia is noted. The main portal vein is patent. The pancreas, spleen, adrenal glands, and kidneys are within normal limits. No hydronephrosis. Lateral wall thickening is likely due to underdistention. The prostate gland is mildly enlarged. There is a single mildly enlarged periportal lymph node measuring 1.5 cm. This remains unchanged and could be due to the patient's cirrhosis. Normal caliber abdominal aorta. No pelvic free fluid or pelvic lymphadenopathy. Colonic diverticulosis. No evidence for acute diverticulitis. No bowel wall thickening or obstruction. Normal appendix. IMPRESSION: 1. No CT evidence for acute pancreatitis. 2. No bowel wall thickening or obstruction. 3. Cirrhotic liver with associated steatosis. 4. Cholecystectomy. 5. Normal appendix. ACT 112: Negative or not required by law. Electronically signed by: Pete Lawson M.D. 08/06/2022 5:52 PM ECG Additional Comments: Sinus tachycardia Possible Left atrial enlargement Nonspecific T wave abnormality Abnormal ECG When compared with ECG of 19-MAR-2022 23:08, No significant change was found. Code Status & VTE Plan Code Status Full Code. Supervising Physician Co-Signing Physician Notes Patient was seen and examined independently I discussed the case with Mey JONES I reviewed pertinent past medical social family history and also the plan of care and agree with the plan of care. Patient was seen he was having abdominal pain in the epigastrium but he also was having pain in his testicles he says this feels like his previous bout of prostatitis Examination reveals his abdomen abnormal active bowel sounds he is exquisitely tender but not with rebound tenderness mostly epigastric in nature no hepatosplenomegaly his examination shows him to have a circumcised penis his testicles are normal size and shape he is got no squelch swelling of the scrotum he got perineal pain he has minor tenderness to the right epididymal area there is no inguinal lymphadenopathy Patient comes in with abdominal pain previous history of pancreatitis after cholecystectomy imaging and labs do not show pancreatitis at this time. Pain is more reminiscent of gastritis. Patient will have his pain controlled to be given IV fluid he will be given IV Protonix will be started on Cephalexin for coverage of possible prostatitis. Urine cultures obtained. Any exceptions will be noted below PG Care Time/CCT Total # of Minutes Spent Total Time Spent with Patient: Total time spent is greater than 50% in coordination of care (as documented) at patient's floor/unit and/or counseling patient: Coding Level of Care Code 19285 Initial Inpt Care Lvl 3 Diagnoses Intractable abdominal pain R10.9 Elevated troponin R77.8 Adjustment disorder with mixed anxiety and depressed mood F43.23 Acute kidney injury superimposed on CKD N17.9; N18.9 DM w/o complication type II, uncontrolled E11.65 Glycemic state: with hyperglycemia Pulmonary embolism I26.99 (1) DM w/o complication type II, uncontrolled Glycemic state: with hyperglycemia Qualified Code(s): E11.65 - Type 2 diabetes mellitus with hyperglycemia
[2022-08-06] MEDS ORDERED: HYDROmorphone INJ 1 MG/ML SYRINGE IV STA (19:18)
[2022-08-06] MEDS ORDERED: ceFAZolin 500 MG in SYRINGE 0 ML IV SCH (19:30)
[2022-08-06] MEDS ORDERED: ceFAZolin 1000MG 1,000 MG/7.5 ML SYR IV STA (19:33)
[2022-08-06] MEDS ORDERED: POLYETHYLENE (MIRALAX) 17 GM PACK PO PRN (20:16)
[2022-08-06] MEDS ORDERED: BACLOFEN 10 MG TAB PO PRN (20:16)
[2022-08-06] MEDS ORDERED: GLUCOSE 10 TAB/TUBE PO PRN (20:16)
[2022-08-06] MEDS ORDERED: ONDANSETRON INJ 2 MG/ML 2 ML VIAL IV PRN (20:16)
[2022-08-06] MEDS ORDERED: DEXTROSE 50% 50 ML SYRINGE IV PRN (20:16)
[2022-08-06] MEDS ORDERED: SENNA 8.6 MG TAB PO PRN (20:16)
[2022-08-06] MEDS ORDERED: ALUMINUM/MAGNESIUM SUSP 30 ML UDC PO PRN (20:16)
[2022-08-06] MEDS ORDERED: METOPROLOL TARTRATE 1 MG/ML VIAL IV PRN (20:16)
[2022-08-06] MEDS ORDERED: hydrALAZINE HCL 20 MG/ML VIAL IV PRN (20:16)
[2022-08-06] MEDS ORDERED: GLUCAGON FOR INJ 1 MG VIAL SQ PRN (20:16)
[2022-08-06] MEDS ORDERED: GLUCOSE 40% GEL 15 GM TUBE PO PRN (20:16)
[2022-08-06] MEDS: LACTATED RINGER'S 1,000 ML IV SCH (20:44)
[2022-08-06] MEDS ORDERED: PANTOprazole 40 MG in SYRINGE 0 ML IV ONE (20:45)
[2022-08-06] MEDS ORDERED: FAMOTIDINE 20 MG in SYRINGE 3 ML IV ONE (20:45)
[2022-08-06] MEDS: APIXABAN 5 MG TABLET PO SCH (21:39)
[2022-08-06] MEDS: TAMSULOSIN HCL 0.4 MG CAP PO SCH (21:41)
[2022-08-06] MEDS: METHYLPHENIDATE HCL 10 MG TABLET PO SCH (21:45)
[2022-08-06] MEDS: clonazePAM 1 MG TAB PO SCH (21:45)
[2022-08-06] MEDS: LANTUS PER UNIT CHARGE SQ SCH (21:58)
[2022-08-06] MEDS: INSULIN ASPART PER UNIT SC SCH (21:58)
[2022-08-06] MEDS: HYDROmorphone INJ 0.5 MG/0.5 ML SYR IV PRN (22:50)
[2022-08-07] MEDS: HYDROmorphone INJ 0.5 MG/0.5 ML SYR IV PRN ×4 (01:50→23:04)
[2022-08-07] MEDS: LACTATED RINGER'S 1,000 ML IV SCH ×2 (03:17→16:04)
[2022-08-07] MEDS ORDERED: Flu Vaccine (Fluarix) 0.5mL SYR (Standard Dose) IM ONE (04:30)
[2022-08-07 07:58] LABS: Hematocrit (blood only) 39.3 % (40.1-51.0); Hemoglobin 13.4 g/dl (14.0-18.0); Mean Corpuscular Hemoglobin 28.9 pg (25.0-34.0); Mean Corpuscular Hgb Conc 34.1 g/dL (32.0-36.0); Mean Corpuscular Volume 84.7 fL (80.0-100.0); Mean Platelet Volume 12.4 fL (9.4-12.4); Platelet Count 209 K/uL (130-400); RDW Coefficient of Variation 13.6 % (11.5-14.5); RDW Standard Deviation 42.4 fL (36.4-46.3); Red Blood Count 4.64 M/uL (4.63-6.08); White Blood Count 10.35 K/ul (4.8-10.8)
[2022-08-07 08:17] LABS: Basophils # (auto) 0.01 K/uL (0-0.2); Basophils % (auto) 0.1 %; Immature Granulocytes # (auto) 0.03 K/uL (0.00-0.02); Immature Granulocytes % (auto) 0.3 %; Lymphocytes # (auto) 0.73 K/uL (1.2-3.4); Lymphocytes % (auto) 7.1 %; Monocytes # (auto) 0.17 K/uL (0.24-0.82); Monocytes % (auto) 1.6 %; Neutrophils # (auto) 9.41 K/uL (1.4-6.5); Neutrophils % (auto) 90.9 %
[2022-08-07 08:27] LABS: Albumin Level 3.9 gm/dl (3.4-5.0); Bilirubin,Total 0.6 mg/dl (0.2-1.0); Calcium 8.8 mg/dl (8.5-10.1); Creatinine Clr Calc Pharmacy 107.1 ml/min; Est GFR (African American) 85.5 ml/min; Est GFR (Non-African American) 73.8 ml/min; Globulin 3.8 gm/dl (2.5-4.0); Potassium 4.3 mmol/L (3.5-5.1); Total Protein 7.7 gm/dl (6.0-8.3); Troponin I High Sensitivity 25.7 pg/ml (0-20)
[2022-08-07] MEDS: LANTUS PER UNIT CHARGE SQ SCH (08:44)
[2022-08-07] MEDS: INSULIN ASPART PER UNIT SC SCH ×4 (08:44→22:18)
[2022-08-07] MEDS: PANTOprazole 40 MG TAB PO SCH ×2 (08:45→22:10)
[2022-08-07] MEDS: DULoxetine HCL 20 MG CAP PO SCH (08:45)
[2022-08-07] MEDS: DULoxetine HCL 60 MG CAP PO SCH (08:45)
[2022-08-07] MEDS: APIXABAN 5 MG TABLET PO SCH ×2 (08:46→22:10)
[2022-08-07] MEDS: clonazePAM 1 MG TAB PO SCH ×2 (08:55→22:16)
[2022-08-07] MEDS: METHYLPHENIDATE HCL 10 MG TABLET PO SCH ×2 (08:55→18:25)
[2022-08-07 10:30] LABS: Estimated Average Glucose 332 mg/dl; Hemoglobin A1C 13.2 % (4.5-5.6)
--- NOTE | 2022-08-07 14:20 | Hospitalist Progress Note ---
Date of Service August 07, 2022 Assessment & Plan (1) Intractable abdominal pain: Plan: - Exact etiology unclear as he has pain + nausea consistent w/ pancreatitis x 2 weeks, however no inflammation seen on CT and lipase not elevated. Post cholecystectomy. No findings on CT to suggest appendicitis diverticulitis, obstruction, duodenitis, gastritis, or prostatitis. -Although patient keeps complaining of his prostatitis and pancreatitis -No evidence of UTI on UA (2) BPH (benign prostatic hyperplasia): Plan: With LUTS Patient did not like kumar catheter He missed his appointment with Urology a couple of days ago Will schedule outpatient Urology for Friday Continue Flomax (3) Elevated troponin: Plan: - Mildly elevated to 32, with tachycardia, hypertension, but no reports of chest pain. Trop trending down - EKG has some nonspecific T wave inversions in V4-6 that are present on prior EKGs. - Will trend troponin overnight. - PRN hydralazine for HTN overnight, prn Lopressor for tachycardia overnight. (4) Adjustment disorder with mixed anxiety and depressed mood: Plan: - Continue Klonopin and Cymbalta. (5) Acute kidney injury superimposed on CKD: Plan: - Cr mildly elevated at 1.35, baseline < 1.10, likely secondary to dehydration and possible UTI. - mIVF ordered, monitor on daily labs. - Avoid nephrotoxins, renally dose as able. (6) DM w/o complication type II, uncontrolled: Plan: - POC glucose 254, patient has not had anything to eat/drink all day. - Received 7 units of insulin in ED. - Continue on Lantus 50units BID with SSI. - A1c in AM. - Diabetic diet when progressed from clears. (7) Pulmonary embolism: Plan: - Multiple VTEs with blood clotting disorder, to remain on Eliquis BID indefinitely. - Missed this morning's dose 2/2 nausea, no other missed doses. Plan - Hopefully d/c tomorrow - SCDs, continue Eliquis for VTE ppx. - Full Code. Admission and Anticipated Discharge Date Admission Date: August 06, 2022 Subjective patient seen and examined, complained of feeling of incomplete voiding and some abdominal pain Review of Systems Review of Systems: All systems reviewed are negative, apart from the ones contained in the history. Physical Exam Physical Exam: The patient is awake, alert and oriented 3, well developed and well nourished, normocephalic and atraumatic, lying in bed and in no acute distress. HEENT--PERRL, EOMI, mucous membranes and oropharynx mildly dry Neck--supple. No JVD. No bruits. Thyroid normal, trachea midline, no adenopathy. Heart--normal S1 and S2. No murmurs, rubs or gallops. Lungs--clear bilaterally, no respiratory distress, no accessory muscle use. Abdomen--normal bowel sounds and soft. Mild epigastric and left sided abdominal pain Extremities--no cyanosis or clubbing. No edema. Dermatologic--normal skin turgor, normal color, no abnormal lymph nodes, no rash. Neurologic--cranial nerves II through XII grossly intact. Rheumatologic--normal range of motion. Psychiatric--normal affect. Results & Data Results & Data ([facility] [place]) Vital Signs (Past 12 Hours) Vital Signs Temp Pulse Pulse Resp BP BP Pulse Ox 08/07/22 12:00 98.6 F 115 H 22 132/86 95 08/07/22 06:07 105 H 08/07/22 08:08 98.4 F 108 H 18 149/94 H 93 08/07/22 05:46 101 H 180/116 H 08/07/22 03:22 111 H 166/102 H 08/07/22 03:18 98.2 F 108 H 19 166/102 H 96 PG Care Time/CCT Total # of Minutes Spent Total Time Spent with Patient: Total time spent is greater than 50% in coordination of care (as documented) at patient's floor/unit and/or counseling patient: Coding Level of Care Code 12430 Subseq Hosp Care Lvl 2 Diagnoses Intractable abdominal pain R10.9 BPH (benign prostatic hyperplasia) N40.0 Elevated troponin R77.8 Adjustment disorder with mixed anxiety and depressed mood F43.23 Acute kidney injury superimposed on CKD N17.9; N18.9 DM w/o complication type II, uncontrolled E11.65 Glycemic state: with hyperglycemia Pulmonary embolism I26.99 Time Spent (min) 35 (1) DM w/o complication type II, uncontrolled Glycemic state: with hyperglycemia Qualified Code(s): E11.65 - Type 2 diabetes mellitus with hyperglycemia
[2022-08-07] MEDS ORDERED: PHARMACY GLYCEMIC MGMT CONSULT PRN (14:24)
[2022-08-07] MEDS ORDERED: HYDROCODONE/ACETAMOPHEN 5/325MG TAB PO PRN (15:12)
--- NOTE | 2022-08-07 15:32 | Pharmacy Report ---
Pharmacy Glycemic Short Note 2 - Date of Service August 07, 2022 - Glycemic Short BSG Results (Last 24 hours): 08/06/22 08/06/22 08/06/22 16:21 17:53 20:26 Glucose 372 H* POC Glucose 254 H 272 H 08/07/22 08/07/22 08/07/22 07:35 08:29 11:43 Glucose 316 H* POC Glucose 339 H* 258 H OUTPATIENT ANTIDIABETIC REGIMEN: * Lantus 50 units BID * Novolog 12 units with sliding scale * HbA1C = 13.2% (08/07/22) ASSESSMENT: * Mr Delaney is a 52 y/o M with a PMH of T2DM who presents with abdominal pain. * Patient's presenting BSG was 372 mg/dL on PRP. * BSGs afterwards (and after Solu-Medrol 125 mg IV x1) were 254 and 272 mg/dL. Patient received 7 units IV in ER. * BSGs today are 339 and 258 mg/dL. * Patient currently ordered Lantus 50 units BID + Novolog CF 10 CR 3. * When patient was admitted in 02/2022, he was stabilized on Lantus 20 units BID + Novolog CF 15 CR 4. His HbA1C was 7.1% (on same home regimen). * Patient received steroids this admission + has elevated HbA1C so patient most likely has insulin deficiency. Will give scale for this evening with max dose of 80 units (20% reduction from home dose). Subsequent dose to be determined on 08/08/22. * Loosen Novolog to parameters from last admission. PLAN FOR INPATIENT GLYCEMIC CONTROL: * Basal insulin * Lantus 50 units SQ this AM then 0-30 units tonight based upon BSG. * Bolus insulin * NovoLog per scale ACHS or Q6hrs while NPO * Goal Range: Low 110 mg/dL - High 140 mg/dL * Correction Factor: 15 mg/dL/unit * Nutritional / Prandial insulin per carb ratio of 1 unit per 4 grams CHO consumed
[2022-08-07] MEDS ORDERED: Nursing to Pharmacy Communication SCH (16:00)
[2022-08-07] MEDS: oxyCODONE HCL IR 5 MG TAB (IMMEDIATE RELEASE) PO PRN ×2 (16:02→22:16)
--- NOTE | 2022-08-07 19:59 | Communication Note ---
Date of Service: August 07, 2022 Messaged by nursing about this patient. Reviewed chart hx. Had presumed bacterial prostatitis during February admission per rectal exam at that time. UA w/o suggestion of bacterial infection, but bacterial prostatitis can result in neg UA. Checking PSA with AM labs. Ordered urine gc/chlamydia. consulting urology given prior hx. Currently on Ancef; consider switching to more appropriately cover empirically for bacterial prostatitis, but will defer to urology. Patient is complaining of nocturia, pain in pelvic region (sharp, throbbing).
[2022-08-07] MEDS ORDERED: LANTUS PER UNIT CHARGE SQ SCH (21:00)
[2022-08-07] MEDS: TAMSULOSIN HCL 0.4 MG CAP PO SCH (22:10)
[2022-08-07 22:49] LABS: Appearance Urine Clear (Clear); Bilirubin Urine Negative (Negative); Blood Urine Negative (Negative); Color Urine Yellow; Glucose Urine UA 3+ (Negative); Ketones Urine Negative (Negative); Leukocyte Esterase Urine Negative (Negative); Nitrite Urine Negative (Negative); Protein Urine Negative (Negative); Urobilinogen Urine Negative (Negative); pH Urine 5.5 (4.5-7.5)
--- NOTE | 2022-08-08 01:28 | Urology Consultation ---
Date of Consultation August 08, 2022 Assessment & Plan (1) BPH (benign prostatic hyperplasia): It appears as though the patient may be suffering from prostatitis. Currently the patient has been placed on antibiotics in the form of Ancef which we will continue. It does not appear that patient is suffering from a urinary tract infection by urinalysis Due to the patient's ongoing symptoms and enlarged prostate he is interested in discussing potential surgical options as a long-term relief of this problem Currently the patient is afebrile and does not exhibit leukocytosis and again does not exhibit urinary tract infection on urinalysis. Would recommend maintaining the patient on antibiotics and surgical options can be discussed by urology attending tomorrow morning. Supervising Physician Co-Signing Physician Notes I agree with the above documentation. Based on lab work and urinalysis, I have low suspicion for an acute prostatitis. His PSA is elevated and will require further work-up to be done as an outpatient. He may be a candidate for an outlet procedure to help with urinary symptoms, however he should also have an outpatient cystoscopy performed prior to any surgical intervention. Does not appear that urine culture was sent at the time of admission, at this point it would likely be unremarkable due to him being on cefazolin. Reasonable to continue antibiotics per primary team. Urology will arrange outpatient follow- up. History of Present Illness Reason for Consultation: Prostatitis Attending Physician: Billy Gaitan MD History of Present Illness This is a 52-year-old male who was admitted to [facility] secondary tractable abdominal pain. Urology has been asked to see the patient due to concerns for underlying prostatitis. The patient is known to the [facility] physician group urology department. During her previous admission after patient underwent laparoscopic cholecystectomy in February of this year the patient developed urinary retention. During this admission patient did undergo a CT scan of the abdomen pelvis that showed concern for an enlarged prostate. The patient did require discharge home with a Jones catheter in place and he did undergo a voiding trial in March which was reportedly successful. The patient reports that he did receive a course of antibiotics for urinary tract symptoms as well as potential prostatitis. He is unsure of how long he received antibiotics but believes he did take a 21-day course. In addition the patient had been initiated on Flomax which she continues to take. Concerning neurologic symptoms the patient does note some minor flank pain bilaterally. He also notes some perineal pain. In addition the patient reports some difficulty urinating with difficulty initiating the urine stream and his stream is weak at times. He also notes urinary frequency, occasional dysuria, and occasional hematuria. Urology has been asked to see the patient secondary to concern for in the patient's symptomatology which may be consistent with prostat itis. Since admission the patient has had labs and imaging which I independently reviewed. He did undergo CT scan of the abdomen and pelvis. This scan showed that the prostate gland was mildly enlarged. Labs include a CBC her white blood cell count is 10.3. Hemoglobin and hematocrit are 13.4 and 39.3. Platelet count is normal. Chemistry profile showed sodium was 132 with a normal potassium. BUN and creatinine are both normal. Urinalysis was not indicative of infection. Labs for chlamydia as well as gonorrhea have been ordered but are pending. At the time of my interview the patient was resting comfortably in bed in no distress. Allergies Allergy/AdvReac Type Severity Reaction Status Date / Time iodine Allergy Severe THROAT Verified 08/06/22 17:29 SWELLING shellfish derived Allergy Severe THROAT Verified 08/06/22 17:29 SWELLING acetaminophen Allergy Intermediate Chest Pain Verified 08/06/22 17:29 & SOB Iodinated Contrast Media Allergy Intermediate swelling Verified 08/06/22 17:29 hydrocodone AdvReac Intermediate GI ISSUES Verified 08/06/22 17:29 Plasma, Human Allergy Severe ANAPHYLAXIS Uncoded 08/06/22 17:29 Home Medications Medication Instructions Recorded Confirmed Type naloxone 4 mg/actuation nasal spray 1 sprays intranasal Q2M PRN (Drug) 07/27/19 08/06/22 History Ingestion duloxetine 60 mg capsule,delayed 60 mg PO QAM #30 caps 10/22/21 08/06/22 Rx release duloxetine 20 mg capsule,delayed 20 mg PO QAM #30 caps 01/07/22 08/06/22 Rx release epinephrine 0.3 mg/0.3 mL 0.3 mg IM DIRECTED PRN Allergic 02/02/22 08/06/22 History injection, auto-injector Reaction insulin aspart U-100 100 unit/mL 0 sliding scale dose subcut AC 02/26/22 08/06/22 History (3 mL) subcutaneous pen (Novolog Flexpen U-100 Insulin aspart) insulin glargine 100 unit/mL (3 50 unit (0.5 mL) subcut BID #45 mL 03/25/22 08/06/22 Rx mL) subcutaneous pen (Lantus Solostar U-100 Insulin) clonazepam 2 mg tablet 2 mg PO BID 30 days #60 tabs 07/26/22 08/06/22 Rx tamsulosin 0.4 mg capsule 0.4 mg PO HS #30 caps 07/31/22 08/06/22 Rx methylphenidate HCl 20 mg tablet 20 mg PO BID #60 tabs 08/02/22 08/06/22 Rx apixaban 5 mg tablet (Eliquis) 5 mg PO BID 08/06/22 08/06/22 History baclofen 10 mg tablet 10 mg PO TID PRN MUSCLE SPASMS 08/06/22 08/06/22 History polyethylene glycol 3350 17 gram 17 g PO DAILY PRN Constipation 08/06/22 08/06/22 History oral powder packet (Miralax) sennosides 8.6 mg tablet (Senokot) 17.2 mg PO DAILY PRN Constipation 08/06/22 08/06/22 History Patient History Medical History Abnormal EKG 2017 > no further follow up needed per patient Anxiety CKD (chronic kidney disease), stage III no specialist > improving per pt report Depression DM w/o complication type II, uncontrolled Most recent Hgb A1C 7.1 on 02/26/22 Esophagitis Gastrointestinal hemorrhage 2016 > resolved History of alcohol abuse History of pleural effusion 2013> [facility] Hypertriglyceridemia Insomnia Lesion of liver Under observation > Dr. Azevedo Myalgia and myositis Obesity Pancreatitis with biliary duct stent done 02/08/22 PTSD (post-traumatic stress disorder) Pulmonary embolism 4 total> last one 2016> Eliquis Transaminitis Surgical History History of cardiac cath 2016 due to chest pain> was clear per patient> no stents> [facility] History of colonoscopy History of ERCP History of esophagogastroduodenoscopy (EGD) History of shoulder surgery (~11/2019) left Hx laparoscopic cholecystectomy (03/05/22) Laparoscopic Cholecystectomy(Not Applicable) - Clayton Vela, DO Hx of surgical procedure colorectal for fissure S/P arthroscopy of shoulder 07/23/19 Dr. Cortes Carranza- Left shoulder arthroscopy with superior labrum anterior to posterior repair; Debridement of glenoid labrum; Synovectomy; Subacromial decompression with acromioplasty; Distal clavicle excision with excision of 10 mm of distal clavicle. Status post laparoscopic cholecystectomy Family History Mother , s/p brain aneurysm Aneurysm Other Hypertension Denies family history of Ovarian cancer Prostate cancer Myocardial infarction Breast cancer Colorectal cancer Social History Smoking Status: Never smoker Second Hand Exposure: Yes; Hx Alcohol Use: Yes Hx Substance Use: No Preferred Language: Slovenian Communication Ability: Effective Visual Impairment: No Limitations Hearing Ability: Normal Employment Law Attorney Required: No Beliefs That Will Affect Care: None marital status: Single Current Living Situation: Other Current Living Situation Comment: with a friend current occupational status: disabled Feels Safe at Home: Yes Childhood Exposure to Second-Hand Smoke: No Dental Care, Regularly: Yes Physical Activity Frequency: Does not Exercise Seatbelt Use: always Sunscreen Use: No Assistive Devices: None Review of Systems Constitutional: no fever and no chills Eyes: no eye pain Ear, Nose, Mouth, Throat: no ear pain Respiratory: no cough and no dyspnea Cardiovascular: no chest pain Gastrointestinal: + abdominal pain and + nausea Genitourinary: + as per Subjective / HPI Musculoskeletal: + back pain Integumentary: no rash Neurologic: no localized weakness Physical Exam Constitutional: WD/WN, vitals as above Eyes: no conjunctival abnormality ENMT: Ears: no hearing impairment and no external ear abnormality Mouth: no oropharynx abnormality Neck: trachea midline Respiratory: normal respiratory effort; no respiratory distress and no labored breathing Cardiovascular: Rate/Rhythm: regular rate and regular rhythm Gastrointestinal (Abdomen): Abdomen is soft, nondistended, and nontender. There is no rigidity. There is no pain with palpation. Musculoskeletal: No calf tenderness Skin: no rashes Neurologic: moves all extremities Psychiatric: A+Ox3, euthymic affect Genitourinary: no CVA tenderness Patient's genitals/perineum were examined. There were no external abnormalities noted of the scrotum. There are no scrotal masses. There is no abnormalities noted of the penis. Patient's perineum was examined and there were no areas of eschar or erythema. There is no crepitus noted in the soft tissue. Results & Data ([facility]) Vital Signs (Past 12 Hours) Vital Signs Temp Pulse Pulse Resp BP Pulse Ox O2 Del Method 08/07/22 23:11 143/89 H 08/07/22 22:44 36.9 C 104 H 20 171/100 H 96 Room Air 08/07/22 22:32 Room Air 08/07/22 19:20 36.6 C 107 H 22 134/69 97 Room Air 08/07/22 16:23 36.7 C 101 H 18 151/88 H 99 Room Air 08/07/22 14:17 107 H PG Care Time/CCT Total # of Minutes Spent Total Time Spent with Patient: Total time spent is greater than 50% in coordination of care (as documented) at patient's floor/unit and/or counseling patient: Coding Level of Care Code 18181 Inpt Consult Level 5 Diagnoses BPH (benign prostatic hyperplasia) N40.0
[2022-08-08] MEDS: HYDROmorphone INJ 0.5 MG/0.5 ML SYR IV PRN ×4 (04:03→21:37)
--- NOTE | 2022-08-08 05:02 | Electrocardiogram Report ---
Test Reason : Blood Pressure : / mmHG Vent. Rate : 114 BPM Atrial Rate : 114 BPM P-R Int : 126 ms QRS Dur : 086 ms QT Int : 322 ms P-R-T Axes : 046 002 -28 degrees QTc Int : 443 ms Sinus tachycardia Possible Left atrial enlargement T wave abnormality, consider inferolateral ischemia Abnormal ECG When compared with ECG of 19-MAR-2022 23:08, T wave inversion less evident in Anterior leads Confirmed by Srikanth Gonzales ([id number]) on 08/08/2022 5:02:35 AM Referred By: REFERRED SELF Confirmed By:Srikanth Gonzales
[2022-08-08 07:29] LABS: Basophils # (auto) 0.02 K/uL (0-0.2); Basophils % (auto) 0.3 %; Eosinophils # (auto) 0.05 K/uL (0-0.50); Eosinophils % (auto) 0.7 %; Hematocrit (blood only) 38.3 % (40.1-51.0); Immature Granulocytes # (auto) 0.02 K/uL (0.00-0.02); Immature Granulocytes % (auto) 0.3 %; Lymphocytes # (auto) 2.37 K/uL (1.2-3.4); Lymphocytes % (auto) 31.8 %; Mean Corpuscular Hemoglobin 29.1 pg (25.0-34.0); Mean Corpuscular Hgb Conc 33.9 g/dL (32.0-36.0); Mean Corpuscular Volume 85.7 fL (80.0-100.0); Mean Platelet Volume 12.6 fL (9.4-12.4); Monocytes # (auto) 0.36 K/uL (0.24-0.82); Monocytes % (auto) 4.8 %; Neutrophils # (auto) 4.64 K/uL (1.4-6.5); Neutrophils % (auto) 62.1 %; Platelet Count 162 K/uL (130-400); RDW Coefficient of Variation 13.9 % (11.5-14.5); RDW Standard Deviation 43.8 fL (36.4-46.3); Red Blood Count 4.47 M/uL (4.63-6.08); White Blood Count 7.46 K/ul (4.8-10.8)
--- NOTE | 2022-08-08 07:37 | Hospitalist Progress Note ---
Date of Service August 08, 2022 Assessment & Plan (1) Abdominal pain: (2) BPH (benign prostatic hyperplasia): (3) Acute kidney injury superimposed on CKD: (4) DM w/o complication type II, uncontrolled: (5) Adjustment disorder with mixed anxiety and depressed mood: (6) GERD (gastroesophageal reflux disease): Plan Abdominal pain -Exact etiology unclear as he has pain + nausea consistent w/ pancreatitis x 2 weeks, however no inflammation seen on CT and lipase not elevated. Post cholecystectomy. No findings on CT to suggest appendicitis diverticulitis, obstruction, duodenitis, gastritis, or prostatitis. -CT did show a significant amount of stool in the patient's abdomen. -Further workup can be performed but patient's symptoms may suggest constipation. -Will treat constipation with Mirlax. Given 51gm and then 34 gm on 08/08. -Will see if patient's symptoms resolve after constipation is relieved and continue further workup if needed. BPH -Patient have worsening symptoms of BPH. was treated for prostatitis in February. May still have prostatitis currently but low suspicion. Will continue with Ancef. -Chlamydia and gonorrhoeae were negative. -Continue Flomax BID. Start Finasteride BID. -Urology consulted. Surgery options for BPH will be discussed on admission and plan to have surgery following hospitalization. -Start Finasteride -No significant change in PSA, 6.084 on 08/08 (7.170 on 02/26/22) BRIDGETTE on CKD -Cr mildly elevated at 1.35 at time of admission (baseline <1.10, likely 2/2 dehydration. UTI not seen on UA. Elevated glucose in the urine. -Avoid nephrotoxins, renally dose as able. DM II - uncontrolled -HA1c was -Continue on Lantus 50 units BID with SSI Adjustment disorder with mixed anxiety and depressed mood - Continue Klonopin and Cymbalta. GERD -Continue protonix 40mg BID. Nutrition: DM 2 Code status: full code DVT ppx: SCD Dispo: med/surg with tele Thank you for allowing me to participate in the care of your patient. -Dr. Kendall Mcnulty PGY1 Admission and Anticipated Discharge Date Admission Date: August 06, 2022 Supervising Physician Co-Signing Physician Notes I personally examined the patient and verified all hines points of history and exam, discussed case, and agree with decision making with Dr Buza abdominal pain - ongoing last ~2wks or so. Diffuse epigastric down to suprapubic. They seem to play off of each other. Sometimes nausea after eating sometimes pain is worse after eating. Has had loose diarrhea 2-3 times a day sometimes watery sometimes chunky 1 time a little bit bloody. Has nocturia uri nary hesitancy and dribbling. Takes Flomax at bedtime notes that he actually pees a fairly large volume at night and not really during the day. Vitals noted, in general he is awake and alert pleasant no distress. HEENT normocephalic atraumatic mucous membranes moist. Breathing unlabored no accessory muscle use good effort. Abdomen is soft moderately distended diffuse tenderness worse left mid and left lower abdomen without guarding rebound or rigidity. Extremities show no cyanosis clubbing or edema. Hi scat scan shows copious stool. abdominal pain -suspect it is largely constipation mediated (given his negative work-up for more ominous pathology, as well as the history would that sounds consistent with overflow diarrhea, as well as the large amount of stool noted on CT in spite of a history consistent with diarrhea) and I do suspect that he has BPH with LUTSand probably the pelvic pressure is exacerbating this. Constipationmiralax BPH w LUTS -it sounds almost like the Flomax at night is working acutelyas he has multiple episodes of nocturia that is worsened since he started it, as well as a lot larger volume of urine at night. We will switch to twice daily Subjective Patient was seen today. Patient is frustrated that he is still having ab pain. States that he is still having diffuse ab pain epigastrically down to his pelvic area. Patient states that over the past couple of weeks that he has been having this ab pain with nausea and diarrhea 3X a day. He also states that he has been sweating a lot with night sweating for the past couple of months. He has had some recent wt loss over the past 6 months but states that he recently changed to a plant diet and is trying to lose wt. Review of Systems Gastrointestinal: + abdominal pain, + nausea, + constipation and + diarrhea/loose stools Genitourinary: + dysuria, + difficulty urinating, + urinary hesitancy, + post- void dribbling and + nocturia Physical Exam Physical Exam: Constitutional: well-appearing, no acute distress HEENT: NCAT, no conjunctival injection CV: regular rhythm, no murmur appreciated, extremities well-perfused, no LE edema Resp: CTABL, no wheezes/rales/rhonchi appreciated, no increased work of breathing GI: moderately distended diffuse tenderness worse left mid and left lower abdomen without guarding rebound or rigidity, BS normoactive MSK: no gross deformities appreciated Skin: warm, dry, no rash appreciated Neuro: alert, oriented, no focal neurologic deficit appreciated Results & Data Results & Data ([facility]) Vital Signs (Past 12 Hours) Vital Signs Temp Pulse Pulse Resp BP Pulse Ox O2 Del Method 08/08/22 07:15 36.7 C 89 18 149/97 H 94 Room Air 08/08/22 06:06 92 H 08/08/22 00:39 103 H 08/08/22 02:15 36.6 C 103 H 20 146/86 H 93 Room Air 08/07/22 23:11 143/89 H 08/07/22 22:44 36.9 C 104 H 20 171/100 H 96 Room Air 08/07/22 22:32 Room Air Resident Activity Tracking Resident Involvement: Resident Care Provided Care Provided: Adult Hospital Medicine (1) DM w/o complication type II, uncontrolled Glycemic state: with hyperglycemia Qualified Code(s): E11.65 - Type 2 diabetes mellitus with hyperglycemia
[2022-08-08 08:06] LABS: Albumin Globulin Ratio 1.1 (0.9-2); Albumin Level 3.5 gm/dl (3.4-5.0); BUN Creatinine Ratio 13.3 (10-20); Bilirubin,Total 0.5 mg/dl (0.2-1.0); Calcium 8.1 mg/dl (8.5-10.1); Creatinine Clr Calc Pharmacy 96.2 ml/min; Est GFR (African American) 75.1 ml/min; Est GFR (Non-African American) 64.8 ml/min; Globulin 3.3 gm/dl (2.5-4.0); Potassium 4.6 mmol/L (3.5-5.1); Total Protein 6.8 gm/dl (6.0-8.3)
[2022-08-08] MEDS ORDERED: LANTUS PER UNIT CHARGE SQ ONE (08:15)
[2022-08-08] MEDS: APIXABAN 5 MG TABLET PO SCH ×2 (08:19→21:38)
[2022-08-08] MEDS: DULoxetine HCL 20 MG CAP PO SCH (08:20)
[2022-08-08] MEDS: DULoxetine HCL 60 MG CAP PO SCH (08:20)
[2022-08-08] MEDS: PANTOprazole 40 MG TAB PO SCH ×2 (08:20→21:39)
[2022-08-08] MEDS: clonazePAM 1 MG TAB PO SCH ×2 (08:30→21:37)
[2022-08-08] MEDS: INSULIN ASPART PER UNIT SC SCH ×4 (08:30→21:33)
[2022-08-08] MEDS: METHYLPHENIDATE HCL 10 MG TABLET PO SCH ×2 (09:29→18:33)
--- NOTE | 2022-08-08 14:35 | Pharmacy Report ---
Pharmacy Glycemic Short Note 2 - Date of Service August 08, 2022 - Glycemic Short BSG Results (Last 24 hours): 08/07/22 08/07/22 08/08/22 16:44 20:06 06:59 Glucose 496 H* POC Glucose 101 H 232 H 08/08/22 08/08/22 08/08/22 07:42 07:43 11:39 Glucose POC Glucose 463 H* 457 H* 318 H* 08/08/22 11:40 Glucose POC Glucose 304 H* OUTPATIENT ANTIDIABETIC REGIMEN: * Lantus 50 units BID * Novolog 12 units with sliding scale * HbA1C = 13.2% (08/07/22) ASSESSMENT: 08/08/22: * Patient received a total of 119 units of SQ insulin yesterday * 50 units Lantus + 69 units novolog * BSGs: 339, 258, 101, 232 mg/dL * Evening dose of Lantus was held following BSG of 101 at dinner * Fasting BSG of 463 mg/dL. Patient does admit to eating tasty cakes overnight. Certainly this contributed to elevation. It is difficult to determine the appropriateness of basal dose at this time. Will continue to titrate. * Post prandial BSGs showed some improvement throughout the day yesterday but are now elevated. Carb coverage was tightened this morning. Will add overnight checks. 08/07/22: * Mr Delaney is a 52 y/o M with a PMH of T2DM who presents with abdominal pain. * Patient's presenting BSG was 372 mg/dL on PRP. * BSGs afterwards (and after Solu-Medrol 125 mg IV x1) were 254 and 272 mg/dL. Patient received 7 units IV in ER. * BSGs today are 339 and 258 mg/dL. * Patient currently ordered Lantus 50 units BID + Novolog CF 10 CR 3. * When patient was admitted in 02/2022, he was stabilized on Lantus 20 units BID + Novolog CF 15 CR 4. His HbA1C was 7.1% (on same home regimen). * Patient received steroids this admission + has elevated HbA1C so patient most likely has insulin deficiency. Will give scale for this evening with max dose of 80 units (20% reduction from home dose). Subsequent dose to be determined on 08/08/22. * Loosen Novolog to parameters from last admission. PLAN FOR INPATIENT GLYCEMIC CONTROL: * Basal insulin * Lantus 50 units SQ this AM then 0-30 units tonight based upon BSG. * Bolus insulin * NovoLog per scale ACHS or Q6hrs while NPO * Goal Range: Low 110 mg/dL - High 140 mg/dL * Correction Factor: 15 mg/dL/unit * Nutritional / Prandial insulin per carb ratio of 1 unit per 3 grams CHO consumed
--- NOTE | 2022-08-08 15:28 | Discharge Summary ---
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 2 weeks ago, patient developed central/upper abdominal pain with associated nausea and poor appetite. It is sharp and stabbing and occurs after meals also comes intermittently throughout the day regardless of whether he had recently eaten. He has been managing this okay at home, however this morning the pain was very sharp and severe, 07/22, therefore he presented to the ED for further evaluation. While he has been nauseous, he has not been vomiting. He typically does not drink much alcohol given his history of liver failure, but did consume >5 beers/day this past weekend while watching sporting events. Over the past 2 days he has had 2 episodes of dark red blood with his bowel movements. He also notes he has been having diarrhea and more frequent urination than usual and notes his urine looks "off ", however denies dysuria or blood in his urine. He has had some chills at home but no reported fevers. He has not been able to take mpqm-dls-klajocv medications at home for his pain given his history of liver failure and the fact that he is on a blood thinner for chronic VTE which limits him from using Tylenol or NSAIDs. Upon presentation, he has been hypertensive and tachycardic, but afebrile with SPO2 >95% on room air. Labs remarkable for decreased WBC 4.69, Hgb and platelets within normal limits, stable. Creatinine is mildly bumped from with estimated baseline 11 0.0, is 1.35 today. Glucose elevated at 254 in the setting of not eating anything all day. AST 57, ALT 43, alk phos 171, ALT at/near baseline. His troponin is mildly elevated at 32. Lipase normal at 44. COVID-[address] A/P does not show any evidence of acute pancreatitis, bowel wall thickening, obstruction. Appendix appears normal, he is s/p cholecystectomy, does have cir rhotic liver with associated steatosis. His prostate is mildly enlarged. There is no pelvic free fluid or pelvic lymphadenopathy. Discharge Data Allergies Allergy/AdvReac Type Severity Reaction Status Date / Time iodine Allergy Severe THROAT Verified 08/06/22 17:29 SWELLING shellfish derived Allergy Severe THROAT Verified 08/06/22 17:29 SWELLING acetaminophen Allergy Intermediate Chest Pain Verified 08/06/22 17:29 & SOB Iodinated Contrast Media Allergy Intermediate swelling Verified 08/06/22 17:29 hydrocodone AdvReac Intermediate GI ISSUES Verified 08/06/22 17:29 Plasma, Human Allergy Severe ANAPHYLAXIS Uncoded 08/06/22 17:29 Consultations 08/08/22 07:00 Consult Urology Routine Ordered Studies 08/06/22 16:54 CT Abd and Pelvis [CT abd pelvis IV con only] Stat Discharge Plan Discharge Items Patient Disposition: Home - Self-Care Reason For Visit: intractable abdominal pain Discharge Diagnosis: constipation Activity: Resume your previous activity Non-emergency contact: Primary Care Provider Call non-emergency contact if: you have any medication questions Follow-up/Referrals: Edgardo Azevedo DO [Primary Care Provider] - Josh Reid PA [Physician [employer] Manager] - 08/09/22 11:00 am Diet: Carb Consistent or DM2 Addtl Attending Provider Instructions: You were admitted to the hospital for constipation. You were treated with medicine. A discharge summary will be sent to your primary care physician to ensure continuity of care. Please bring this discharge summary with you to your next office appointment so that your provider can review it at that time. Follow-up appointments: * Make a follow-up appointment with your PCP within the next week. It is very important that you follow up with them shortly after discharge from the hospital. Medications: Your medication list has been reviewed and reconciled upon discharge to ensure accuracy and continuity of care. An updated list of all your medications is included with your hospital discharge paperwork. Please review this list closely, and make note of any changes. * If you have any issues filling these prescriptions, please call [phone] and ask to leave a message for Dr. Mcnulty. * Take your medications as instructed; do not skip a dose of your medicines. Make sure all of your doctors know every medicine you are taking (including vouf-gka-ajhfxii medicines, vitamins, and supplements). Call your primary care provider before taking any new medicines (including over- the-counter medicines, vitamins, and supplements), because some of these may interact with your current medications, or may make your symptoms worse. Tell your primary care provider if you cannot afford your medications. CONTACT YOUR PRIMARY CARE PROVIDER if you experience any of the following: * Worsening of symptoms * Fever, chills, or fatigue * Difficulty following your treatment plan, or difficulty taking medications CALL 911 OR GO TO THE EMERGENCY DEPARTMENT if you experience any of the following: * Sudden, severe abdominal pain or nausea/vomiting * Severe chest pain, or chest pain that radiates (moves) to your jaw or arm * Sudden, severe shortness of breath or difficulty breathing Thank you for allowing us to participate in your care. Pending Studies at Discharge: No Stand-Alone Forms: [facility], Smoking Cessation Medications and DC Order Prescriptions: Continued duloxetine 60 mg capsule,delayed release(DR/EC) 60 mg PO QAM Qty: 30 11RF Rx Instructions: TOTAL DOSE 80 MG--TAKES WITH 20 MG CAP. duloxetine 20 mg capsule,delayed release(DR/EC) 20 mg PO QAM Qty: 30 11RF Rx Instructions: TOTAL DOSE 80 MG--TAKES WITH 60 MG CAP. Lantus Solostar U-100 Insulin 100 unit/mL (3 mL) insulin pen 50 unit subcut BID Qty: 45 1RF clonazepam 2 mg tablet 2 mg PO BID 30 Days Qty: 60 0RF tamsulosin 0.4 mg capsule 0.4 mg PO HS Qty: 30 2RF methylphenidate HCl 20 mg tablet 20 mg PO BID Qty: 60 0RF Hold Instructions: Pancreatitis naloxone 4 mg/actuation spray,non-aerosol 1 sprays intranasal Q2M PRN (Reason: (Drug) Ingestion) Label Comments: 1 spray intranasal every 2-3 minutes as needed epinephrine 0.3 mg/0.3 mL auto-injector 0.3 mg IM DIRECTED PRN (Reason: Allergic Reaction) Rx Instructions: Insurance only covers Ra[employer] Sock [employer] (20755) insulin aspart U-100 [Novolog Flexpen U-100 Insulin] 100 unit/mL (3 mL) insulin pen 0 sliding scale dose SQ AC Rx Instructions: per sliding scale sennosides [Senokot] 8.6 mg tablet 17.2 mg PO DAILY PRN (Reason: Constipation) Rx Instructions: purchase puzr-lbq-vfakigd polyethylene glycol 3350 [Miralax] 17 gram powder in packet 17 g PO DAILY PRN (Reason: Constipation) Rx Instructions: purchase yovf-ygz-ngcarys baclofen 10 mg tablet 10 mg PO TID PRN (Reason: MUSCLE SPASMS) Eliquis 5 mg tablet 5 mg PO BID Rx Instructions: TAKE 1 TABLET BY MOUTH TWICE A DAY Discharge Orders: Discharge Order (Routine); Ordered 08/08/22 Ordered By: Kendall Davis/Other Patient Handouts: High Blood Sugar (Hyperglycemia), Hypoglycemia (Low Blood Sugar), Managing Type 2 Diabetes Admission Data Admit Date/Time: 08/06/22 18:56 Attending Provider: Ha Harley Admit Provider: Eddie Meyers Primary Care Provider: Edgardo Azevedo Other Providers: Ed Buenrostro ; Billy Gaitan
[2022-08-08] MEDS ORDERED: POLYETHYLENE (MIRALAX) 17 GM PACK PO ONE ×2 (15:45→19:45)
[2022-08-08 16:04] LABS: GC (Neis gonorrhoeae) RNA Not Detected (NotDetected)
[2022-08-08] MEDS: POLYETHYLENE (MIRALAX) 17 GM PACK PO SCH (16:09)
[2022-08-08] MEDS: oxyCODONE HCL IR 5 MG TAB (IMMEDIATE RELEASE) PO PRN (16:15)
--- NOTE | 2022-08-08 19:24 | Billing Data ---
Date of Service August 08, 2022 Coding Level of Care Code 95805 Subseq Obs Care Lvl 3
[2022-08-08] MEDS ORDERED: LANTUS PER UNIT CHARGE SQ SCH (21:00)
[2022-08-08] MEDS: TAMSULOSIN HCL 0.4 MG CAP PO SCH (21:38)
[2022-08-09] MEDS: INSULIN ASPART PER UNIT SC SCH ×4 (00:45→08:10)
[2022-08-09] MEDS: oxyCODONE HCL IR 5 MG TAB (IMMEDIATE RELEASE) PO PRN ×2 (00:50→08:05)
[2022-08-09] MEDS: HYDROmorphone INJ 0.5 MG/0.5 ML SYR IV PRN ×4 (02:37→12:45)
[2022-08-09] MEDS: CARBOHYDRATES FOR HYPOGLYCEMIA PO PRN ×3 (05:12→05:56)
--- NOTE | 2022-08-09 07:02 | Hospitalist Progress Note ---
Date of Service August 09, 2022 Assessment & Plan (1) Abdominal pain: (2) BPH (benign prostatic hyperplasia): (3) Acute kidney injury superimposed on CKD: (4) DM w/o complication type II, uncontrolled: (5) Adjustment disorder with mixed anxiety and depressed mood: (6) GERD (gastroesophageal reflux disease): Admission and Anticipated Discharge Date Admission Date: August 06, 2022 Results & Data Results & Data ([facility]) Vital Signs (Past 12 Hours) Vital Signs Temp Pulse Pulse Resp BP Pulse Ox O2 Del Method 08/09/22 03:49 36.9 C 92 H 18 167/108 H 96 Room Air 08/08/22 22:05 97 H 08/08/22 22:43 36.8 C 95 H 18 169/107 H 96 Room Air 08/08/22 19:18 36.6 C 94 H 20 165/108 H 98 Room Air (1) DM w/o complication type II, uncontrolled Glycemic state: with hyperglycemia Qualified Code(s): E11.65 - Type 2 diabetes mellitus with hyperglycemia
[2022-08-09 08:05] LABS: Hematocrit (blood only) 36.9 % (40.1-51.0); Hemoglobin 12.8 g/dl (14.0-18.0); Mean Corpuscular Hemoglobin 29.8 pg (25.0-34.0); Mean Corpuscular Hgb Conc 34.7 g/dL (32.0-36.0); Mean Platelet Volume 12.2 fL (9.4-12.4); Platelet Count 149 K/uL (130-400); RDW Coefficient of Variation 13.7 % (11.5-14.5); RDW Standard Deviation 42.8 fL (36.4-46.3); Red Blood Count 4.29 M/uL (4.63-6.08); White Blood Count 5.49 K/ul (4.8-10.8)
[2022-08-09] MEDS: PANTOprazole 40 MG TAB PO SCH (08:09)
[2022-08-09] MEDS: TAMSULOSIN HCL 0.4 MG CAP PO SCH (08:09)
[2022-08-09] MEDS: APIXABAN 5 MG TABLET PO SCH (08:09)
[2022-08-09] MEDS: DULoxetine HCL 20 MG CAP PO SCH (08:09)
[2022-08-09] MEDS: DULoxetine HCL 60 MG CAP PO SCH (08:09)
[2022-08-09] MEDS: POLYETHYLENE (MIRALAX) 17 GM PACK PO SCH (08:10)
[2022-08-09] MEDS: METHYLPHENIDATE HCL 10 MG TABLET PO SCH (08:23)
[2022-08-09] MEDS: clonazePAM 1 MG TAB PO SCH (08:23)
[2022-08-09 08:57] LABS: Albumin Globulin Ratio 1.1 (0.9-2); Albumin Level 3.5 gm/dl (3.4-5.0); BUN Creatinine Ratio 9.7 (10-20); Bilirubin,Total 0.6 mg/dl (0.2-1.0); Calcium 8.3 mg/dl (8.5-10.1); Creatinine Clr Calc Pharmacy 109.9 ml/min; Est GFR (African American) 87.4 ml/min; Est GFR (Non-African American) 75.4 ml/min; Globulin 3.2 gm/dl (2.5-4.0); Potassium 3.5 mmol/L (3.5-5.1); Total Protein 6.7 gm/dl (6.0-8.3)
[2022-08-09] MEDS ORDERED: FINASTERIDE 5 MG TAB PO SCH (09:00)
[2022-08-09] MEDS ORDERED: LANTUS PER UNIT CHARGE SQ ONE (09:00)
--- NOTE | 2022-08-09 09:40 | Urology Progress Note ---
Date of Service August 09, 2022 Assessment & Plan (1) BPH (benign prostatic hyperplasia): Plan: - Follow-up of lower urinary tract symptoms. - Remains afebrile, lab work reviewed - creatinine and WBC within normal limits. - UA was not suggestive of infection on admission, no urine culture collected. - PSA 6.084 (previously 7.170 in February when hospitalized for urinary retention). - He remains on Ancef. - Continue Tamsulosin and Finasteride. - Continue to monitor bladder emptying prn. - PSA is elevated and will require further work-up to be done as an outpatient. - Continue antibiotics, supportive care, and management per primary team. - Recommend continue with bowel regimen to normalize bowels. - He may be a candidate for an outlet procedure to help with urinary symptoms, however he should also have an outpatient cystoscopy performed prior to any surg ical intervention. - Urology will arrange outpatient follow-up. - will sign off. Admission and Anticipated Discharge Date Admission Date: August 06, 2022 Subjective Patient awake and resting in bed, no acute distress. No acute issues overnight. He is voiding spontaneously. He notes pelvic pressure and groin/scrotal discomfort with voiding. He reports stream is variable between strong and weak, but feels he is emptying his bladder fairly well. Per chart review, a bladder scan on 08/07 was 0. No dysuria or hematuria. Reports abdominal pain and nausea. He had a bowel movement overnight. No fever or chills. Reports weight loss over the past 6 months. Review of Systems Constitutional: as per Subjective / HPI Gastrointestinal: as per Subjective / HPI Genitourinary: + as per Subjective / HPI Physical Exam Constitutional: well developed and well nourished; no acute distress and not ill appearing Respiratory: normal respiratory effort; no respiratory distress and no labored breathing Cardiovascular: Extremities: no pedal edema Gastrointestinal (Abdomen): Percussion/Palpation: abdomen soft; abdomen nontender and no guarding mild distention Musculoskeletal: Head/Neck/Chest: normocephalic and head atraumatic Neurologic: moves all extremities and awake Psychiatric: Orientation: alert and oriented x 3 Results & Data ([facility]) Vital Signs (Past 12 Hours) Vital Signs Temp Pulse Pulse Resp BP Pulse Ox O2 Del Method 08/09/22 08:09 36.4 C L 90 21 168/104 H 95 Room Air 08/09/22 07:22 86 08/09/22 03:49 36.9 C 92 H 18 167/108 H 96 Room Air 08/08/22 22:05 97 H 08/08/22 22:43 36.8 C 95 H 18 169/107 H 96 Room Air PG Care Time/CCT Total # of Minutes Spent Total Time Spent with Patient: Total time spent is greater than 50% in coordination of care (as documented) at patient's floor/unit and/or counseling patient: Coding Level of Care Code 29297 Subseq Hosp Care Lvl 2 Diagnoses BPH (benign prostatic hyperplasia) N40.0
[2022-08-09] MEDS ORDERED: POLYETHYLENE (MIRALAX) 17 GM PACK PO STA (09:57)
--- NOTE | 2022-08-09 11:43 | Discharge Summary ---
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 2 weeks ago, patient developed central/upper abdominal pain with associated nausea and poor appetite. It is sharp and stabbing and occurs after meals also comes intermittently throughout the day regardless of whether he had recently eaten. He has been managing this okay at home, however this morning the pain was very sharp and severe, 10/10, therefore he presented to the ED for further evaluation. While he has been nauseous, he has not been vomiting. He typically does not drink much alcohol given his history of liver failure, but did consume >5 beers/day this past weekend while watching sporting events. Over the past 2 days he has had 2 episodes of dark red blood with his bowel moveme nts. He also notes he has been having diarrhea and more frequent urination than usual and notes his urine looks "off ", however denies dysuria or blood in his urine. He has had some chills at home but no reported fevers. He has not been able to take rska-dss-yfcjduk medications at home for his pain given his history of liver failure and the fact that he is on a blood thinner for chronic VTE whi ch limits him from using Tylenol or NSAIDs. Upon presentation, he has been hypertensive and tachycardic, but afebrile with SPO2 >95% on room air. Labs remarkable for decreased WBC 4.69, Hgb and plat elets within normal limits, stable. Creatinine is mildly bumped from with estimated baseline 11 0.0, is 1.35 today. Glucose elevated at 254 in the setting of not eating anything all day. AST 57, ALT 43, alk phos 171, ALT at/near baseline. His troponin is mildly elevated at 32. Lipase normal at 44. COVID-[address] A/P does not show any evidence of acute pancreatitis, bowel wall thickening, obstruction. Appendix appears normal, he is s/p cholecystectomy, does have cirrhotic liver with associated steatosis. His prostate is mildly enlarged. There is no pelvic free fluid or pelvic lymphadenopathy. Admission Exam Per Admitting Provider General: awake, alert, no apparent distress Head: Normocephalic, atraumatic ENT: PERRL, EOMI, no pharyngeal exudate, mucous membranes moist Chest: Clear to auscultation, on room air, no adventitious breath sounds Cardiac: tachycardic rate and regular rhythm, no murmur, no JVD, normal peripheral pulses, good capillary refill Abdominal: diffusely TTP throughout abdomen; NABS x 4 quadrants, soft, no rebound, guarding or tenderness Extremities: Normal inspection, no peripheral edema or erythema, calfs nontender to palpation Psych: Normal mood and affect Neuro: AAO x 3, strength intact bilaterally and rated 5/5, no motor deficits, speech is clear, no peripheral sensory deficits Skin: no rash or erythema Principal Diagnosis Intractable abdominal pain Discharge Exam Constitutional: well-appearing, no acute distress HEENT: NCAT, no conjunctival injection CV: regular rhythm, no murmur appreciated, extremities well-perfused, no LE edema Resp: CTABL, no wheezes/rales/rhonchi appreciated, no increased work of breathing GI: moderately distended diffuse tenderness worse left mid and left lower abdomen without guarding rebound or rigidity, BS normoactive MSK: no gross deformities appreciated Skin: warm, dry, no rash appreciated Neuro: alert, oriented, no focal neurologic deficit appreciated Discharge Data Allergies Allergy/AdvReac Type Severity Reaction Status Date / Time iodine Allergy Severe THROAT Verified 08/06/22 17:29 SWELLING shellfish derived Allergy Severe THROAT Verified 08/06/22 17:29 SWELLING acetaminophen Allergy Intermediate Chest Pain Verified 08/06/22 17:29 & SOB Iodinated Contrast Media Allergy Intermediate swelling Verified 08/06/22 17:29 hydrocodone AdvReac Intermediate GI ISSUES Verified 08/06/22 17:29 Plasma, Human Allergy Severe ANAPHYLAXIS Uncoded 08/06/22 17:29 Consultations 08/08/22 07:00 Consult Urology Routine Ordered Studies 08/06/22 16:54 CT Abd and Pelvis [CT abd pelvis IV con only] Stat Hospital Course (1) Abdominal pain: (2) BPH (benign prostatic hyperplasia): (3) Acute kidney injury superimposed on CKD: (4) DM w/o complication type II, uncontrolled: (5) Adjustment disorder with mixed anxiety and depressed mood: (6) GERD (gastroesophageal reflux disease): Plan Abdominal pain Constipation -Exact etiology unclear as he has pain + nausea consistent w/ pancreatitis x 2 weeks, however no inflammation seen on CT and lipase not elevated. Post cholecystectomy. No findings on CT to suggest appendicitis diverticulitis, obstruction, duodenitis, gastritis, or prostatitis. -CT did show a significant amount of stool in the patient's abdomen. -Further workup can be performed but patient's symptoms may suggest constipation. -Will treat constipation with Mirlax. Given 51gm and then 34 gm on 08/08. -Was planning finishing with a short bowl prep but patient wanted to leave the hospital before having a bowl movement. -He should f/u with his PCP in one week. - 7 tabs of 5mg Oxycodone sent in for ab pain though told patient that ab pain is most likely caused by constipation and oxycodone will only make the constipation worse. BPH -Patient have worsening symptoms of BPH. was treated for prostatitis in February. May still have prostatitis currently but low suspicion. Will continue with Ancef. -Chlamydia and gonorrhoeae were negative. -Continue Flomax BID. Start Finasteride BID. -Urology consulted. Surgery options for BPH will be discussed on admission and plan to have surgery following hospitalization.Appointment with urology set up. -Start Finasteride -No significant change in PSA, 6.084 on 08/08 (7.170 on 02/26/22) BRIDGETTE on CKD -Cr mildly elevated at 1.35 at time of admission (baseline <1.10, likely 2/2 dehydration. UTI not seen on UA. Elevated glucose in the urine. -Avoid nephrotoxins, renally dose as able. DM II - uncontrolled -HA1c was 13.2 on 08/07 -Continue on Lantus 50 units BID with SSI -Patient's DM was no well controlled during admission. Was working on setting him up with a better plan for his diabetes but patient wanted to leave. -Patient should follow up with his PCP within a week to get better control on his diabetes. Adjustment disorder with mixed anxiety and depressed mood - Continue Klonopin and Cymbalta. GERD -Continue protonix 40mg BID. Total Time Total Time Spent Total Time Spent (In Minutes): 30 Discharge Plan Discharge Items Patient Disposition: Home - Self-Care Reason For Visit: intractable abdominal pain Discharge Diagnosis: constipation Activity: Resume your previous activity Non-emergency contact: Primary Care Provider Call non-emergency contact if: you have any medication questions, your pain is unusual for you and your temperature is above 101.5 Follow-up/Referrals: Edgardo Azevedo DO [Primary Care Provider] - Josh Reid PA [Physician Employment Coach] - 08/13/22 1:00 pm Diet: Carb Consistent or DM2 Addtl Attending Provider Instructions: You were admitted to the hospital for constipation. You were treated with a bowl prep. You have not yet had a bowel movement at this time. Please continue to take Miralax until you are able to have a bowl movement. A discharge summary will be sent to your primary care physician to ensure continuity of care. Please bring this discharge summary with you to your next office appointment so that your provider can review it at that time. Follow-up appointments: * Make a follow-up appointment with your PCP within the next week. It is very important that you follow up with them shortly after discharge from the hospital. Medications: Your medication list has been reviewed and reconciled upon discharge to ensure accuracy and continuity of care. An updated list of all your medications is included with your hospital discharge paperwork. Please review this list closely, and make note of any changes. * No new medications were added for you on this hospitalization. * If you have any issues filling these prescriptions, please call [phone] and ask to leave a message for Dr. Mcnulty. * Take your medications as instructed; do not skip a dose of your medicines. Make sure all of your doctors know every medicine you are taking (including xnbb-etc-vypxvyp medicines, vitamins, and supplements). Call your primary care provider before taking any new medicines (including over- the-counter medicines, vitamins, and supplements), because some of these may interact with your current medications, or may make your symptoms worse. Tell your primary care provider if you cannot afford your medications. CONTACT YOUR PRIMARY CARE PROVIDER if you experience any of the following: * Worsening of symptoms * Fever, chills, or fatigue * Difficulty following your treatment plan, or difficulty taking medications CALL 911 OR GO TO THE EMERGENCY DEPARTMENT if you experience any of the following: * Sudden, severe abdominal pain or nausea/vomiting * Severe chest pain, or chest pain that radiates (moves) to your jaw or arm * Sudden, severe shortness of breath or difficulty breathing Thank you for allowing us to participate in your care. Addtl Golf Ball Marker Provider Instructions: You have been scheduled with [facility] for follow-up of urinary symptoms and elevated PSA. Your appointment is scheduled on August 13 at 1:00 pm. Please call our office at [phone] with any questions, concerns or need to reschedule appointments for any reason. We are happy to assist you. We are located at [address] [place] [address]. Pending Studies at Discharge: No Stand-Alone Forms: My [facility], Smoking Cessation Medications and DC Order Prescriptions: New oxycodone 5 mg tablet 5 mg PO TID PRN (Reason: pain) Qty: 7 0RF Continued duloxetine 60 mg capsule,delayed release(DR/EC) 60 mg PO QAM Qty: 30 11RF Rx Instructions: TOTAL DOSE 80 MG--TAKES WITH 20 MG CAP. duloxetine 20 mg capsule,delayed release(DR/EC) 20 mg PO QAM Qty: 30 11RF Rx Instructions: TOTAL DOSE 80 MG--TAKES WITH 60 MG CAP. Lantus Solostar U-100 Insulin 100 unit/mL (3 mL) insulin pen 50 unit subcut BID Qty: 45 1RF clonazepam 2 mg tablet 2 mg PO BID 30 Days Qty: 60 0RF tamsulosin 0.4 mg capsule 0.4 mg PO HS Qty: 30 2RF methylphenidate HCl 20 mg tablet 20 mg PO BID Qty: 60 0RF Hold Instructions: Pancreatitis naloxone 4 mg/actuation spray,non-aerosol 1 sprays intranasal Q2M PRN (Reason: (Drug) Ingestion) Label Comments: 1 spray intranasal every 2-3 minutes as needed epinephrine 0.3 mg/0.3 mL auto-injector 0.3 mg IM DIRECTED PRN (Reason: Allergic Reaction) Rx Instructions: Insurance only covers [employer] ([id number]) insulin aspart U-100 [Novolog Flexpen U-100 Insulin] 100 unit/mL (3 mL) insulin pen 0 sliding scale dose SQ AC Rx Instructions: per sliding scale sennosides [Senokot] 8.6 mg tablet 17.2 mg PO DAILY PRN (Reason: Constipation) Rx Instructions: purchase kwcw-aid-pmixxqp polyethylene glycol 3350 [Miralax] 17 gram powder in packet 17 g PO DAILY PRN (Reason: Constipation) Rx Instructions: purchase mpnl-ozt-uxnddhr baclofen 10 mg tablet 10 mg PO TID PRN (Reason: MUSCLE SPASMS) Eliquis 5 mg tablet 5 mg PO BID Rx Instructions: TAKE 1 TABLET BY MOUTH TWICE A DAY Discharge Orders: Discharge Order (Routine); Ordered 08/09/22 Ordered By: Kendall Davis/Other Patient Handouts: High Blood Sugar (Hyperglycemia), Hypoglycemia (Low Blood Sugar), Managing Type 2 Diabetes Admission Data Admit Date/Time: 08/09/22 09:55 Attending Provider: Ha Harley Admit Provider: Eddie Meyers Primary Care Provider: Edgardo Azevedo Other Providers: Ed Buenrostro ; Billy Gaitan Other Interventions: Discharge Summary Assessment (RN) Last Done: 08/09/22 12:42 Supervising Physician Co-Signing Physician Notes I personally examined the patient and verified all hines points of history and exam, discussed case, and agree with decision making with Dr Mcnulty abdominal pain - ongoing last ~2wks or so. Diffuse epigastric down to suprapubi c. They seem to play off of each other. Sometimes nausea after eating sometimes pain is worse after eating. Has had loose diarrhea 2-3 times a day sometimes watery sometimes chunky 1 time a little bit bloody. Has nocturia urinary hesitancy and dribbling. Takes Flomax at bedtime notes that he actually pees a fairly large volume at night and not really during the day. Vitals noted, in general he is awake and alert pleasant no distress. HEENT normocephalic atraumatic mucous membranes moist. Breathing unlabored no accessory muscle use good effort. Abdomen is soft moderately distended diffuse tenderness worse left mid and left lower abdomen without guarding rebound or rigidity. Extremities show no cyanosis clubbing or edema. Hi scat scan shows copious stool. abdominal pain -suspect it is largely constipation mediated (given his negative work-up for more ominous pathology, as well as the history would that sounds consistent with overflow diarrhea, as well as the large amount of stool noted on CT in spite of a history consistent with diarrhea) and I do suspect that he has BPH with LUTSand probably the pelvic pressure is exacerbating this. Started MiraLAX overnightsurprisingly barely had bowel movements with about 150 g of MiraLAXwe will continue to escalate to more truly bowel prep dosing, he does want to go home, which seems quite reasonable. Discussed treatment at length and in depth, and will have follow-up with PCP. Constipationmiralax, as above BPH w LUTS -it sounds almost like the Flomax at night is working acutelyas he has multiple episodes of nocturia that is worsened since he started it, as well as a lot larger volume of urine at night. For now Flomax twice daily, Proscar daily, urology on 08/13 Resident Activity Tracking Resident Involvement: Resident Care Provided Care Provided: Adult Hospital Medicine
[2022-08-09] MEDS ORDERED: POLYETHYLENE (MIRALAX) 17 GM PACK PO SCH (12:00)
[2022-08-09] MEDS ORDERED: POLYETHYLENE (MIRALAX) 17 GM PACK PO ONE ×2 (13:15→14:30)
--- NOTE | 2022-08-09 19:19 | Billing Data ---
Date of Service August 09, 2022 Coding Level of Care Code D/C DAY MANAGEMENT <30 MINS
== END 2022-08-09 13:23 | disposition home or self-care (01) ==
LOC: 2N 15:38 → ED 15:38 → SUATTDRO 18:56 → 2N 19:56

== ENCOUNTER 2022-09-26 22:52 | Inpatient (IN) ==
[2022-09-26] MEDS ORDERED: SODIUM CHLORIDE 0.9% 500 ML IV STA (23:01)
--- NOTE | 2022-09-26 23:08 | Emergency Department Note ---
Impression & Plan BRIDGETTE (acute kidney injury) ADMIT ED Provider Note HPI: The patient is a 52-year-old male with history of chronic kidney disease, history of PE, currently on Eliquis, presents the emergency department with a chief complaint of epigastric pain and vomiting since yesterday. Patient states he is also had some chest pain that is been constant during this time. Patient states his vomit has been dark in color. Patient states that his chest discomfort has been in the lower substernal area and has been constant in nature since yesterday. On arrival here to the ED the patient is noted to be mildly tachycardic and hypertensive, he is otherwise saturating well on room air, he is in no acute distress on my initial evaluation. ROS: -GI: Vomiting, epigastric pain -Cardiovascular: Nonspecific chest discomfort *10 point review systems was conducted and is otherwise negative unless stated above *Outpatient medications and allergy history reviewed PE: General: Alert HEENT: Normocephalic, trachea midline Eyes: Extraocular eye movement is intact, no scleral erythema Pulmonary: Clear to auscultation bilaterally, no wheezing Cardio: Tachycardic rate with regular rhythm GI: Abdomen is soft, moderate tenderness over the epigastrium to palpation without guarding or rigidity : No suprapubic tenderness MSK: No evidence of trauma or malformation of the extremities, no edema Skin: No evidence of rash Neuro: Alert, no focal deficits Psychiatric: 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 There is reasonable opacification of the pulmonary arterial tree, no pulmonary arterial filling defect is seen. There is a consolidation at the right base infection. No pneumothorax or large effusion. Radiologist: Tomas De Leon MD CT ABDOMEN & PELVIS With Contrast: There is mild fluid distention of small bowel loops without focal point of obstruction identified. The patient is status post cholecystectomy. No acute pathology is identified in the abdomen or pelvis. Radiologist: Tomas De Leon MD Interventions provided in ED: -IV fluid bolus, IV Solu-Medrol, IV Benadryl, IV morphine, IV Protonix, IV cefepime, IV azithromycin Medical Decision Making: Patient presented to the emergency department with epigastric discomfort, dark- colored emesis, also noted to have some substernal chest pain for about the past 24 hours. EKG does not show any acute ischemic changes, troponin is slightly elevated at 21 however this is within range to the patient's previous levels. CT angiography of the chest does not show any evidence of dissection or pulmonary embolism, there is mention of a consolidation at the right lung base. CT imaging of the abdomen and pelvis does not show any evidence of any acute surgical pathology. Patient was given a dose of Protonix for concern in regards to his epigastric pain, states he does have a history of gastric ulcers and was concerned about possible upper GI bleed. He has not had any active hematemesis while here in the ED and his hemoglobin is stable. Otherwise shows an elevated creatinine of 2.18, this is in comparison to creatinine earlier this month that was within normal range on 09/12. Patient was given 2 L of IV fluid here in the ED. Given his chest discomfort, elevated troponin, and acute kidney injury, I did discuss admission with the patient he was in agreement. COVID-19 testing is noted to be negative. We will draw blood cultures as he has a mild leukocytosis and concern for right lower lobe pneumonia on CT imaging of the chest. Patient states he has had a cough over the past 1 to 2 days. We will start antibiotics prophylactically. [facility] hospitalist service was consulted for admission. patient is in agreement to the above plan and he was admitted in stable condition. Diagnosis: 1. Chest pain, acute, nonspecific 2. Acute kidney injury 3. Elevated high-sensitivity troponin 4. Leukocytosis 5. Right lower lobe pneumonia 6. Nausea and vomiting 7. Abdominal pain, acute, epigastric Disposition: Admission Michael Smith DO Emergency Medicine Past Med/Surg History Medical History Abnormal EKG 2017 > no further follow up needed per patient Anxiety CKD (chronic kidney disease), stage III no specialist > improving per pt report Depression DM w/o complication type II, uncontrolled Most recent Hgb A1C 7.1 on 02/26/22 Esophagitis Gastrointestinal hemorrhage 2015 > resolved History of alcohol abuse History of pleural effusion 2013> [facility] Hypertriglyceridemia Insomnia Lesion of liver Under observation > Dr. Azevedo Myalgia and myositis Obesity Pancreatitis with biliary duct stent done 02/08/22 PTSD (post-traumatic stress disorder) Pulmonary embolism 4 total> last one 2016> Eliquis Transaminitis Surgical History History of cardiac cath 2016 due to chest pain> was clear per patient> no stents> [facility] History of colonoscopy History of ERCP History of esophagogastroduodenoscopy (EGD) History of shoulder surgery (~11/2019) left Hx laparoscopic cholecystectomy (03/05/22) Laparoscopic Cholecystectomy(Not Applicable) - Clayton Vela, DO Hx of surgical procedure colorectal for fissure S/P arthroscopy of shoulder 07/23/19 Dr. Cortes Carranza- Left shoulder arthroscopy with superior labrum anterior to posterior repair; Debridement of glenoid labrum; Synovectomy; Subacromial decompression with acromioplasty; Distal clavicle excision with excision of 10 mm of distal clavicle. Status post laparoscopic cholecystectomy Family History Mother , s/p brain aneurysm Aneurysm Other Hypertension Denies family history of Ovarian cancer Prostate cancer Myocardial infarction Breast cancer Colorectal cancer Social History Smoking Status: Never smoker Second Hand Exposure: Yes; Hx Alcohol Use: Yes Hx Substance Use: No Preferred Language: Gu[place]ian Communication Ability: Effective Visual Impairment: No Limitations Hearing Ability: Normal Drill Setup Operator Required: No Beliefs That Will Affect Care: None marital status: Single Current Living Situation: Other Current Living Situation Comment: with a friend current occupational status: disabled Feels Safe at Home: Yes Childhood Exposure to Second-Hand Smoke: No Dental Care, Regularly: Yes Physical Activity Frequency: Does not Exercise Seatbelt Use: always Sunscreen Use: No Assistive Devices: Glasses Allergies Allergies Allergy/AdvReac Type Severity Reaction Status Date / Time iodine Allergy Severe THROAT Verified 09/26/22 23:38 SWELLING shellfish derived Allergy Severe THROAT Verified 09/26/22 23:38 SWELLING acetaminophen Allergy Intermediate Chest Pain Verified 09/26/22 23:38 & SOB Iodinated Contrast Media Allergy Intermediate swelling Verified 09/26/22 23:38 hydrocodone AdvReac Intermediate GI ISSUES Verified 09/26/22 23:38 Plasma, Human Allergy Severe ANAPHYLAXIS Uncoded 09/26/22 23:38 Home Meds Home Medications Medication Instructions Recorded Confirmed naloxone 4 mg/actuation nasal spray 1 sprays intranasal Q2M PRN (Drug) 07/27/19 09/26/22 Ingestion epinephrine 0.3 mg/0.3 mL 0.3 mg IM DIRECTED PRN Allergic 02/02/22 09/26/22 injection, auto-injector Reaction insulin aspart U-100 100 unit/mL 0 sliding scale dose subcut AC 02/26/22 09/26/22 (3 mL) subcutaneous pen (Novolog Flexpen U-100 Insulin aspart) apixaban 5 mg tablet (Eliquis) 5 mg PO BID 08/06/22 09/26/22 baclofen 10 mg tablet 10 mg PO TID PRN MUSCLE SPASMS 08/06/22 09/26/22 polyethylene glycol 3350 17 gram 17 g PO DAILY PRN Constipation 08/06/22 09/26/22 oral powder packet (Miralax) sennosides 8.6 mg tablet (Senokot) 17.2 mg PO DAILY PRN Constipation 08/06/22 09/26/22 Previous Rx's Medication Instructions Recorded duloxetine 20 mg capsule,delayed 20 mg PO QAM #30 caps 01/07/22 release tamsulosin 0.4 mg capsule 0.4 mg PO HS #30 caps 07/31/22 insulin glargine 100 unit/mL (3 50 unit (0.5 mL) subcut BID #45 mL 08/13/22 mL) subcutaneous pen (Lantus Solostar U-100 Insulin) methylphenidate HCl 20 mg tablet 20 mg PO BID #60 tabs 08/30/22 duloxetine 60 mg capsule,delayed 60 mg PO QAM #30 caps 09/10/22 release oxycodone 5 mg tablet 5 mg PO Q6H PRN pain #6 tabs 09/12/22 clonazepam 2 mg tablet 2 mg PO BID 25 days #50 tabs 09/20/22 Results & Data (ED) Vital Signs Vital Signs - 24 hr 09/26/22 22:55 09/26/22 23:58 Temperature 36.4 C L Temperature Source Temporal Artery Scan Pulse Rate 117 H Pulse Rate [Left Finger] 114 H Respiratory Rate 18 18 Respiratory Effort / Characteristics Non-Labored Spontaneous Respiratory Depth Normal Blood Pressure 145/86 H Blood Pressure [Left Arm] 168/93 H Blood Pressure Mean 105 Blood Pressure Mean [Left Arm] 118 Blood Pressure Position Sitting Pulse Oximetry 97 94 Oxygen Delivery Method Room Air Room Air Sepsis Recent Fever Within 48 Hours No Sepsis New/Unexplained Change in Mental Status No Sepsis Action Taken by Nursing No Action Required Laboratory Data Result diagrams: 09/26/22 23:15 09/26/22 23:15 Lab Results 09/26/22 09/26/22 09/26/22 Range/Units 23:15 23:15 23:15 WBC 11.50 H (4.8-10.8) K/ul RBC 5.12 (4.63-6.08) M/uL Hgb 15.1 (14.0-18.0) g/dl Hct 45.2 (40.1-51.0) % MCV 88.3 (80.0-100.0) fL MCH 29.5 (25.0-34.0) pg MCHC 33.4 (32.0-36.0) g/dL RDW Std Deviation 41.8 (36.4-46.3) fL RDW Coeff of Lillie 12.9 (11.5-14.5) % Plt Count 297 (130-400) K/uL MPV 11.7 (9.4-12.4) fL Immature Gran % (Auto) 0.3 % Neut % (Auto) 63.3 % Lymph % (Auto) 28.3 % [place] % (Auto) 6.5 % Eos % (Auto) 1.2 % Baso % (Auto) 0.4 % Neut # (Auto) 7.28 H (1.4-6.5) K/uL Lymph # (Auto) 3.25 (1.2-3.4) K/uL [place] # (Auto) 0.75 (0.24-0.82) K/uL Eos # (Auto) 0.14 (0-0.50) K/uL Baso # (Auto) 0.05 (0-0.2) K/uL Immature Gran # (Auto) 0.03 H (0.00-0.02) K/uL PT 11.4 (9.0-12.0) Seconds INR 1.1 (0.9-1.1) APTT 27.7 (21.0-31.0) Seconds PTT Ratio 1.0 Sodium 138 (136-145) mmol/L Potassium 4.1 (3.5-5.1) mmol/L Chloride 98 (98-107) mmol/L Carbon Dioxide 31 (21-32) mmol/L Anion Gap 9 (3-11) BUN 20 (6-23) mg/dl Creatinine 2.18 H (0.6-1.4) mg/dl Est Cr Clr Drug Dosing 57.5 ml/min Est GFR ( Amer) 39.5 ml/min Est GFR (Non-Af Amer) 34.1 ml/min BUN/Creatinine Ratio 9.2 L (10-20) Glucose 286 H (70-99(Fasting)) mg/dl Calcium 9.2 (8.5-10.1) mg/dl Total Bilirubin 0.6 (0.2-1.0) mg/dl AST 79 H (13-39) U/L ALT 72 H (7-52) U/L Alkaline Phosphatase 140 H (34-104) U/L Troponin I High Sens 21.2 H (0-20) pg/ml Total Protein 8.5 H (6.0-8.3) gm/dl Albumin 4.5 (3.4-5.0) gm/dl Globulin 4.0 (2.5-4.0) gm/dl Albumin/Globulin Ratio 1.1 (0.9-2) Lipase 51 (11-82) U/L SARS-CoV-2, RNA, NAAT (NEGATIVE) 09/27/22 Range/Units 00:14 WBC (4.8-10.8) K/ul RBC (4.63-6.08) M/uL Hgb (14.0-18.0) g/dl Hct (40.1-51.0) % MCV (80.0-100.0) fL MCH (25.0-34.0) pg MCHC (32.0-36.0) g/dL RDW Std Deviation (36.4-46.3) fL RDW Coeff of Lillie (11.5-14.5) % Plt Count (130-400) K/uL MPV (9.4-12.4) fL Immature Gran % (Auto) % Neut % (Auto) % Lymph % (Auto) % [place] % (Auto) % Eos % (Auto) % Baso % (Auto) % Neut # (Auto) (1.4-6.5) K/uL Lymph # (Auto) (1.2-3.4) K/uL [place] # (Auto) (0.24-0.82) K/uL Eos # (Auto) (0-0.50) K/uL Baso # (Auto) (0-0.2) K/uL Immature Gran # (Auto) (0.00-0.02) K/uL PT (9.0-12.0) Seconds INR (0.9-1.1) APTT (21.0-31.0) Seconds PTT Ratio Sodium (136-145) mmol/L Potassium (3.5-5.1) mmol/L Chloride (98-107) mmol/L Carbon Dioxide (21-32) mmol/L Anion Gap (3-11) BUN (6-23) mg/dl Creatinine (0.6-1.4) mg/dl Est Cr Clr Drug Dosing ml/min Est GFR ( Amer) ml/min Est GFR (Non-Af Amer) ml/min BUN/Creatinine Ratio (10-20) Glucose (70-99(Fasting)) mg/dl Calcium (8.5-10.1) mg/dl Total Bilirubin (0.2-1.0) mg/dl AST (13-39) U/L ALT (7-52) U/L Alkaline Phosphatase (34-104) U/L Troponin I High Sens (0-20) pg/ml Total Protein (6.0-8.3) gm/dl Albumin (3.4-5.0) gm/dl Globulin (2.5-4.0) gm/dl Albumin/Globulin Ratio (0.9-2) Lipase (11-82) U/L SARS-CoV-2, RNA, NAAT NEGATIVE (NEGATIVE) Administered Medications Sodium Chloride (Nss 1000ml) 1,000 mls @ 999 mls/hr IV .Q1H1M ONE Stop: 09/27/22 01:57 Last Admin: 09/27/22 01:04 Dose: 999 mls/hr Documented By: Discontinued Medications Diphenhydramine HCl (Diphenhydramine 50 Mg/Ml Vial) 50 mg IV ONE ONE Stop: 12/15/22 23:10 Last Admin: 09/26/22 23:52 Dose: 50 mg Documented By: JANA Sodium Chloride (Nss) 500 mls @ 999 mls/hr IV .Q31M STA Stop: 09/26/22 23:31 Last Infusion: 09/27/22 00:34 Dose: 0 mls/hr Documented By: Admin: 09/26/22 23:52 Dose: 999 mls/hr Documented By: JANA Methylprednisolone 40 mg/ (Syringe) 0.64 mls @ 1.5 mls/min IV ONE ONE Stop: 09/26/22 23:10 Last Admin: 09/26/22 23:51 Dose: 1.5 mls/min Documented By: JANA Ioversol (Optiray 320 500ml) 125 ml IV ONCE ONE Stop: 09/27/22 00:30 Last Admin: 09/27/22 00:29 Dose: 113 ml Documented By: IFRAH Morphine Sulfate (Morphine Sulfate 4 Mg/Ml 1 Ml Carp\Vial) 4 mg IV NOW STA Stop: 09/27/22 01:16 Last Admin: 09/27/22 01:18 Dose: 4 mg Documented By: JANA Discharge Plan Visit Data Chief Complaint: Chest Pain Stated Complaint: VOMITING BLACK BLOOD, NAUSEA, CHEST PAIN ED Provider: Michael Smith Discharge Problem: BRIDGETTE (acute kidney injury) Patient Disposition: Admitted As Inpatient Forms Stand Alone Forms: [facility], Virtual Emergency Department, Important Visit Information Prescriptions Prescriptions: No Action duloxetine 20 mg capsule,delayed release(DR/EC) 20 mg PO QAM Qty: 30 11RF Rx Instructions: TOTAL DOSE 80 MG--TAKES WITH 60 MG CAP. tamsulosin 0.4 mg capsule 0.4 mg PO HS Qty: 30 2RF insulin glargine [Lantus Solostar U-100 Insulin] 100 unit/mL (3 mL) insulin pen 50 unit subcut BID Qty: 45 1RF methylphenidate HCl 20 mg tablet 20 mg PO BID Qty: 60 0RF Hold Instructions: Pancreatitis duloxetine 60 mg capsule,delayed release(DR/EC) 60 mg PO QAM Qty: 30 11RF Rx Instructions: TOTAL DOSE 80 MG--TAKES WITH 20 MG CAP. clonazepam 2 mg tablet 2 mg PO BID 25 Days Qty: 50 0RF Rx Instructions: ORDERED 09/20/22 FOR 25 DAYS. naloxone 4 mg/actuation spray,non-aerosol 1 sprays intranasal Q2M PRN (Reason: (Drug) Ingestion) Label Comments: 1 spray intranasal every 2-3 minutes as needed oxycodone 5 mg tablet 5 mg PO Q6H PRN (Reason: pain) Qty: 6 0RF epinephrine 0.3 mg/0.3 mL auto-injector 0.3 mg IM DIRECTED PRN (Reason: Allergic Reaction) Rx Instructions: Insurance only covers [employer] [employer] ([id number]) insulin aspart U-100 [Novolog Flexpen U-100 Insulin] 100 unit/mL (3 mL) insulin pen 0 sliding scale dose SQ AC Rx Instructions: per sliding scale sennosides [Senokot] 8.6 mg tablet 17.2 mg PO DAILY PRN (Reason: Constipation) Rx Instructions: purchase [id number] polyethylene glycol 3350 [Miralax] 17 gram powder in packet 17 g PO DAILY PRN (Reason: Constipation) Rx Instructions: purchase [id number] baclofen 10 mg tablet 10 mg PO TID PRN (Reason: MUSCLE SPASMS) Eliquis 5 mg tablet 5 mg PO BID Rx Instructions: TAKE 1 TABLET BY MOUTH TWICE A DAY Referrals Referrals: Edgardo Azevedo, [Primary Care Provider] -
[2022-09-26] MEDS ORDERED: methylPREDNISolone 40 MG in SYRINGE 0 ML IV ONE (23:09)
[2022-09-26] MEDS ORDERED: diphenhydrAMINE 50 MG/ML VIAL IV ONE (23:09)
[2022-09-26 23:29] LABS: Basophils # (auto) 0.05 K/uL (0-0.2); Basophils % (auto) 0.4 %; Eosinophils # (auto) 0.14 K/uL (0-0.50); Eosinophils % (auto) 1.2 %; Hematocrit (blood only) 45.2 % (40.1-51.0); Hemoglobin 15.1 g/dl (14.0-18.0); Immature Granulocytes # (auto) 0.03 K/uL (0.00-0.02); Immature Granulocytes % (auto) 0.3 %; Lymphocytes # (auto) 3.25 K/uL (1.2-3.4); Lymphocytes % (auto) 28.3 %; Mean Corpuscular Hemoglobin 29.5 pg (25.0-34.0); Mean Corpuscular Hgb Conc 33.4 g/dL (32.0-36.0); Mean Corpuscular Volume 88.3 fL (80.0-100.0); Mean Platelet Volume 11.7 fL (9.4-12.4); Monocytes # (auto) 0.75 K/uL (0.24-0.82); Monocytes % (auto) 6.5 %; Neutrophils # (auto) 7.28 K/uL (1.4-6.5); Neutrophils % (auto) 63.3 %; Platelet Count 297 K/uL (130-400); RDW Coefficient of Variation 12.9 % (11.5-14.5); RDW Standard Deviation 41.8 fL (36.4-46.3); Red Blood Count 5.12 M/uL (4.63-6.08)
[2022-09-26 23:47] LABS: INR 1.1 (0.9-1.1); Partial Thromboplastin Time 27.7 Seconds (21.0-31.0); Prothrombin Time 11.4 Seconds (9.0-12.0)
[2022-09-26 23:56] LABS: Albumin Globulin Ratio 1.1 (0.9-2); Albumin Level 4.5 gm/dl (3.4-5.0); BUN Creatinine Ratio 9.2 (10-20); Bilirubin,Total 0.6 mg/dl (0.2-1.0); Calcium 9.2 mg/dl (8.5-10.1); Creatinine Clr Calc Pharmacy 57.5 ml/min; Est GFR (African American) 39.5 ml/min; Est GFR (Non-African American) 34.1 ml/min; Potassium 4.1 mmol/L (3.5-5.1); Total Protein 8.5 gm/dl (6.0-8.3); Troponin I High Sensitivity 21.2 pg/ml (0-20)
[2022-09-27] MEDS ORDERED: OPTIRAY 320 500ml IV ONE (00:29)
[2022-09-27] MEDS ORDERED: SODIUM CHLORIDE 0.9% 1000ML 1,000 ML IV ONE (00:57)
[2022-09-27] MEDS ORDERED: AZITHROMYCIN 500 MG in DEXTROSE 5% 250 ML IV ONE (01:12)
[2022-09-27] MEDS ORDERED: CEFEPIME 2,000 MG/20 ML VIAL IV STA (01:12)
[2022-09-27] MEDS ORDERED: PANTOprazole 40 MG in SYRINGE 0 ML IV ONE (01:15)
[2022-09-27] MEDS ORDERED: MoRPHine SULFATE 4 MG/ML 1 ML CARP\\VIAL IV STA ×2 (01:15→02:36)
--- NOTE | 2022-09-27 01:22 | History & Physical Report ---
Date of Service September 27, 2022 Assessment & Plan (1) GERD (gastroesophageal reflux disease): Plan: Jordan Delaney . is a 52-year-old male with past medical history of DM 2, BPH, PTSD, chronic back pain, chronic constipation, pulmonary embolisms on Eliquis who presented due to abdominal pain and dark, tarry vomiting. Coffee-ground emesis Patient reports several episodes of coffee-ground emesis with diffuse abdominal pain, worse at the epigastrium/lower chest Patient does have history of GERD/esophagitis Hemoglobin on admission 15.1 CT A/P showing mild fluid distention of small bowel loops without focal point of obstruction, no acute pathology in the abdomen or pelvis Will make patient n.p.o. Hold home Eliquis Protonix 40 mg IV twice daily Consult gastroenterology for consideration of EGD Chest pain Likely related to above problem EKG showing sinus tachycardia without obvious ST segment/T wave abnormalities Troponin on admission 21.2, which seems consistent with most recent troponins in July could certainly be demand in the setting of pain Continue to trend EKG with chest pain as needed BRIDGETTE on CKD Creatinine 2.19 on admission, baseline creatinine at normal levels Most recently prior to this admission with eGFR in the 80s putting him at stage II CKD Renally dose medications Avoid nephrotoxins LR at 125 cc/h Monitor creatinine Lung consolidation CTA chest showing consolidation at the right lung base per stat read Patient does not have any obvious respiratory symptoms, no hypoxia at this time Leukocytosis of 11.5 with neutrophilic predominance Received cefepime and azithromycin in the ED Will continue azithromycin and switch to ceftriaxone for now Can consider discontinuation of antibiotics if he continues without symptoms Consider follow-up imaging Chronic constipation Continue as needed MiraLAX and Senokot DM 2 Lantus 50 units twice daily -- home dosing Sliding scale for coverage History of PE 4 total PEs, with the last one in 2016 On Eliquis chronically Hold Eliquis as above for concern of hematemesis Chronic back pain Continue home baclofen, duloxetine Anxiety/PTSD Continue home clonazepam twice daily BPH Continue home tamsulosin DVT prophylaxis: Eliquis on hold as above, SCDs FEN GI: N.p.o., LR at 125 cc/h Dispo: Med telemetry CODE STATUS: Full (2) Coffee ground emesis: (3) Diabetes mellitus: (4) BRIDGETTE (acute kidney injury): (5) Abdominal pain: (6) Elevated troponin: (7) BPH (benign prostatic hyperplasia): (8) Chronic back pain: (9) Pulmonary embolism: History of Present Illness Primary Care Provider: DO Jordan Aguilar Jr. is a 52-year-old male with past medical history of DM 2, BPH, PTSD, chronic back pain, chronic constipation, pulmonary embolisms on Eliquis who presented due to abdominal pain and dark, tarry vomiting. Patient states that he developed abdominal pain and had been vomiting since yesterday. He states he has vomited probably around 7 times and it has been dark, tarry. He described it as seeming like coffee grounds. Does feel that the pain is in his chest and epigastrium, he says it felt initially like indigestion and he expected this would improve, but it ended up worsening and he developed vomiting. He denies dark or bloody stools at this time. No shortness of breath, palpitations, weakness, numbness, tingling, headaches, dizziness, fever, chills, coughing. Of note, patient has history of alcohol abuse per chart denies alcohol use at this time. States he had EGD in 2015, which found ulcers but cause of these reportedly unknown. In ED, patient had lab work significant for mild troponin elevation of 21.2, creatinine elevated to 2.18, hemoglobin normal at 15.1. CT A/P showing mild fluid distention of small bowel loops without focal point of obstruction, no acute pathology in the abdomen or pelvis. CTA chest showing consolidation at the right lung base per stat rad. Allergies Allergy/AdvReac Type Severity Reaction Status Date / Time iodine Allergy Severe THROAT Verified 09/26/22 23:38 SWELLING shellfish derived Allergy Severe THROAT Verified 09/26/22 23:38 SWELLING acetaminophen Allergy Intermediate Chest Pain Verified 09/26/22 23:38 & SOB Iodinated Contrast Media Allergy Intermediate swelling Verified 09/26/22 23:38 hydrocodone AdvReac Intermediate GI ISSUES Verified 09/26/22 23:38 Plasma, Human Allergy Severe ANAPHYLAXIS Uncoded 09/26/22 23:38 Home Medications Medication Instructions Recorded Confirmed Type naloxone 4 mg/actuation nasal spray 1 sprays intranasal Q2M PRN (Drug) 07/27/19 09/26/22 History Ingestion duloxetine 20 mg capsule,delayed 20 mg PO QAM #30 caps 01/07/22 09/26/22 Rx release epinephrine 0.3 mg/0.3 mL 0.3 mg IM DIRECTED PRN Allergic 02/02/22 09/26/22 History injection, auto-injector Reaction insulin aspart U-100 100 unit/mL 0 sliding scale dose subcut AC 02/26/22 09/26/22 History (3 mL) subcutaneous pen (Novolog Flexpen U-100 Insulin aspart) tamsulosin 0.4 mg capsule 0.4 mg PO HS #30 caps 07/31/22 09/26/22 Rx apixaban 5 mg tablet (Eliquis) 5 mg PO BID 08/06/22 09/26/22 History baclofen 10 mg tablet 10 mg PO TID PRN MUSCLE SPASMS 08/06/22 09/26/22 History polyethylene glycol 3350 17 gram 17 g PO DAILY PRN Constipation 08/06/22 09/26/22 History oral powder packet (Miralax) sennosides 8.6 mg tablet (Senokot) 17.2 mg PO DAILY PRN Constipation 08/06/22 09/26/22 History insulin glargine 100 unit/mL (3 50 unit (0.5 mL) subcut BID #45 mL 08/13/22 09/26/22 Rx mL) subcutaneous pen (Lantus Solostar U-100 Insulin) methylphenidate HCl 20 mg tablet 20 mg PO BID #60 tabs 08/30/22 09/26/22 Rx duloxetine 60 mg capsule,delayed 60 mg PO QAM #30 caps 09/10/22 09/26/22 Rx release oxycodone 5 mg tablet 5 mg PO Q6H PRN pain #6 tabs 09/12/22 09/26/22 Rx clonazepam 2 mg tablet 2 mg PO BID 25 days #50 tabs 09/20/22 09/26/22 Rx Past Med/Surg History Medical History Abnormal EKG 2017 > no further follow up needed per patient Anxiety CKD (chronic kidney disease), stage III no specialist > improving per pt report Depression DM w/o complication type II, uncontrolled Most recent Hgb A1C 7.1 on 02/26/22 Esophagitis Gastrointestinal hemorrhage 2015 > resolved History of alcohol abuse History of pleural effusion 2013> [facility] Hypertriglyceridemia Insomnia Lesion of liver Under observation > Dr. Azevedo Myalgia and myositis Obesity Pancreatitis with biliary duct stent done 02/08/22 PTSD (post-traumatic stress disorder) Pulmonary embolism 4 total> last one 2016> Eliquis Transaminitis Surgical History History of cardiac cath 2016 due to chest pain> was clear per patient> no stents> [facility] History of colonoscopy History of ERCP History of esophagogastroduodenoscopy (EGD) History of shoulder surgery (~11/2019) left Hx laparoscopic cholecystectomy (03/05/22) Laparoscopic Cholecystectomy(Not Applicable) - Clayton Vela, DO Hx of surgical procedure colorectal for fissure S/P arthroscopy of shoulder 07/23/19 Dr. Cortes Carranza- Left shoulder arthroscopy with superior labrum anterior to posterior repair; Debridement of glenoid labrum; Synovectomy; Subacromial decompression with acromioplasty; Distal clavicle excision with excision of 10 mm of distal clavicle. Status post laparoscopic cholecystectomy Family History Mother , s/p brain aneurysm Aneurysm Other Hypertension Denies family history of Ovarian cancer Prostate cancer Myocardial infarction Breast cancer Colorectal cancer Social History Smoking Status: Never smoker Second Hand Exposure: Yes; Hx Alcohol Use: Yes Hx Substance Use: No Preferred Language: [place] Communication Ability: Effective Visual Impairment: No Limitations Hearing Ability: Normal Infection Control Specialist Required: No Beliefs That Will Affect Care: None marital status: Single Current Living Situation: Other Current Living Situation Comment: with a friend current occupational status: disabled Feels Safe at Home: Yes Childhood Exposure to Second-Hand Smoke: No Dental Care, Regularly: Yes Physical Activity Frequency: Does not Exercise Seatbelt Use: always Sunscreen Use: No Assistive Devices: Glasses Review of Systems Review of Systems: Per HPI Physical Exam Physical Exam: GENERAL: A&Ox3. NAD. HEENT: PERRL, EOMI. Moist mucous membranes. NECK: No JVD. No lymphadenopathy. CHEST/LUNGS: CTAB A/P. No crackles, wheezes, rales, rhonchi. HEART: Tachycardic, regular rhythm. No m/g/r. No carotid bruits. ABDOMEN: Diffusely tender to palpation, more notably in the epigastrium, ND, soft. BS+ x4 EXTREMITIES: No cyanosis, no clubbing, no edema SKIN: Warm and dry. No rashes or lesions. PSYCHIATRIC: Euthymic affect, no SI, no pressured speech, no hallucinations NEUROLOGIC: No FND. Results & Data Results & Data ([facility]) Vital Signs (Past 12 Hours) Vital Signs Temp Pulse Pulse Resp BP BP Pulse Ox 09/26/22 23:58 114 H 18 168/93 H 94 09/26/22 22:55 36.4 C L 117 H 18 145/86 H 97 O2 Del Method 09/26/22 23:58 Room Air 09/26/22 22:55 Room Air Supervising Physician Co-Signing Physician Notes Patient seen and examined, chart reviewed, case discussed with Dr. Efren Myers and I agree with his assessment and plan as documented above. In brief, patient is a 52-year-old male with history of diabetes, BPH and prior pulmonary embolisms on Eliquis presenting with diffuse abdominal pain as well as vomiting with report of dark, coffee-ground material. He does report that in 2014 he had an EGD which revealed ulcers. Patient does not report any uncontrolled GERD symptoms nor does he report frequent NSAID use or alcohol use. He is on Protonix daily but ran out several days ago. No additional complaints On exam he is resting comfortably, afebrile and hemodynamically stable. Nontoxic in appearance Skinwarm, dry, intact, no rashes or lesions HEENTnormocephalic, atraumatic, moist mucous membranes, neck supple Heart+ S1, S2, regular, tachycardic, no murmur/rub/gallops Lungsequal air entry bilaterally, no rales/rhonchi/wheezes Abdomen+ bowel sounds, soft, mildly distended, diffusely tender without rebound/guarding/peritonitis Extremitieswarm, well-perfused Labs and images reviewed. Hgb = 15.1, HCT = 45.2, platelets = 2.97 he has normal coagulation panel. BUN = 20. Mild elevation in LFTs AST = 79, ALT = 72, alk phos = 140 with normal total bili and albumin Assessment/plan 52-year-old male presenting with abdominal pain and report of coffee-ground emesis. Afebrile, hemodynamically stable Hold Eliquis Protonix 40 mg IV twice daily GI consult appreciated Chest painno acute changes in EKG. Initial troponin = 21.2 which is fairly consistent with prior values in setting of CKD. Chest pain is somewhat reproducible. We will continue to trend troponin Monitor renal function Remainder of plan as above Resident Activity Tracking Resident Involvement: Resident Care Provided Care Provided: Adult Hospital Medicine
[2022-09-27] MEDS ORDERED: ONDANSETRON INJ 2 MG/ML 2 ML VIAL IV STA (02:12)
--- NOTE | 2022-09-27 04:18 | Billing Data ---
Date of Service September 27, 2022 Coding Level of Care Code 04879 Initial Inpt Care Lvl 3
[2022-09-27] MEDS ORDERED: POLYETHYLENE (MIRALAX) 17 GM PACK PO PRN (04:45)
[2022-09-27] MEDS ORDERED: GLUCAGON FOR INJ 1 MG VIAL SQ PRN (04:45)
[2022-09-27] MEDS ORDERED: GLUCOSE 40% GEL 15 GM TUBE PO PRN (04:45)
[2022-09-27] MEDS ORDERED: EPINEPHrine ADULT AUTO-INJECT 0.3 MG SYR IM PRN (04:45)
[2022-09-27] MEDS ORDERED: GLUCOSE 10 TAB/TUBE PO PRN (04:45)
[2022-09-27] MEDS ORDERED: BACLOFEN 10 MG TAB PO PRN (04:45)
[2022-09-27] MEDS ORDERED: SENNA 8.6 MG TAB PO PRN (04:45)
[2022-09-27] MEDS: LACTATED RINGER'S 1,000 ML IV SCH ×3 (05:15→23:50)
[2022-09-27] MEDS: HYDROmorphone INJ 0.5 MG/0.5 ML SYR IV PRN ×5 (05:21→20:31)
[2022-09-27] MEDS: INSULIN ASPART PER UNIT SC SCH ×4 (05:23→23:51)
[2022-09-27] MEDS: cefTRIAXone SODIUM 2,000 MG in DEXTROSE 5% 50 ML IV SCH (07:28)
[2022-09-27] MEDS: METHYLPHENIDATE HCL 10 MG TABLET PO SCH ×2 (07:28→13:42)
[2022-09-27] MEDS: PANTOprazole 40 MG in SYRINGE 0 ML IV SCH ×2 (07:30→20:25)
[2022-09-27] MEDS: DULoxetine HCL 60 MG CAP PO SCH (07:30)
[2022-09-27] MEDS: DULoxetine HCL 20 MG CAP PO SCH (07:30)
[2022-09-27] MEDS ORDERED: FLUARIX QUADRIVALENT 0.5 ML SYR IM ONE (08:00)
--- NOTE | 2022-09-27 08:00 | XRay Report ---
XR chest 1V portable HISTORY: Atypical Chest pain, nonspecific COMPARISON: Chest 02/26/2022. FINDINGS: Hazy patchy bibasilar airspace opacities. There are low lung volumes. No pneumothorax. No p leural fusions. The cardiac silhouette is top normal in size. IMPRESSION: Hazy patchy bibasilar airspace opacities. This may represent a pneumonia. ACT 112: Negative or not required by law. Electronically signed by: Pete Lawson M.D. 09/27/2022 7:59 AM
--- NOTE | 2022-09-27 08:00 | CT Scan Report ---
CHEST CTA for PULMONARY ARTERIES CT DOSE: HISTORY: Vomiting. Mid chest pain. TECHNIQUE: Multiaxial CT images of the chest were performed following the intravenous administration of contrast to evaluate the pulmonary arteries. Maximal intensity projection images were also obtaine d. A dose lowering technique was utilized adhering to the principles of ALARA. COMPARISON STUDY: Chest CTA 03/08/2022. FINDINGS: The abdominal structures will be reported on the same day abdomen and pelvis CT. The stomac h is partially visualized and appears distended with fluid. Moderate circumferential thickening in th e mid to distal esophagus with a small amount of fluid within the distal esophagus. The thyroid gland enhances normally. No mediastinal or hilar lymphadenopathy. The heart is normal in size. No pleural or pericardial effusions. No fractures within the visualized osseous structures. The central airways are patent. No pneumothorax. Mild respiratory motion artifact. Patchy groundglass airspace opacities within the bilateral lower lobes most pronounced on the right. This is consistent with a pneumonia an d could be due to prior aspiration. No evidence for an aortic dissection. No filling defects within t he pulmonary arteries to suggest a pulmonary embolus. IMPRESSION: 1. No evidence for a pulmonary embolus. 2. Bilateral lower lobe airspace opacities consistent with a pneumonia. This could be due to prior as piration. 3. Moderate circumferential thickening of the mid to distal esophagus consistent with a nonspecific e sophagitis. Follow-up endoscopy recommended for further evaluation. 4. Fluid-filled and distended stomach. This is better appreciated on the same day abdomen and pelvis CT. ACT 112: Positive. There are findings on this exam that require communication between the performing entity and the patient following Patient Test Result Information Act ([place] Act 112) guidelines. Electronically signed by: Pete Lawson M.D. 09/27/2022 7:58 AM
--- NOTE | 2022-09-27 08:12 | Hospitalist Progress Note ---
Date of Service September 27, 2022 Assessment & Plan (1) Coffee ground emesis: Plan: Coffee-ground emesis Patient reports several episodes of coffee-ground emesis with diffuse abdominal pain, worse at the epigastrium/lower chest Patient does have history of GERD/esophagitis Hemoglobin on admission 15.1 CT A/P showing mild fluid distention of small bowel loops without focal point of obstruction, no acute pathology in the abdomen or pelvis - CT chest mild circumferential thickening of distal esophagus follow up endoscopy is recommended Will make patient n.p.o. Hold home Eliquis Protonix 40 mg IV twice daily Consult gastroenterology for consideration of EGD (2) Partial small bowel obstruction: Plan: - GI consulted and recommended a surgical consult for partial SBO - NPO - General surgery consult placed - NGT to LIS (3) Abdominal pain: Plan: Epigastric abdominal pain - Continue to monitor abdominal exams - NPO - NGT to LIS - GI and Surgery consults - Continue PPI BID - Zofran as needed Chronic constipation Continue as needed MiraLAX and Senokot (4) Diabetes mellitus: Plan: DM 2 Lantus 50 units twice daily -- home dosing Sliding scale for coverage (5) BRIDGETTE (acute kidney injury): Plan: BRIDGETTE on CKD Creatinine 2.19 on admission, baseline creatinine at normal levels Most recently prior to this admission with eGFR in the 80s putting him at stage II CKD Renally dose medications Avoid nephrotoxins LR at 125 cc/h Monitor creatinine (hx of hepatorenal syndrome secondary to prework out supplementation use in the past and had dialysis x 1 in January 2022 per patient) (6) Elevated troponin: Plan: EKG showing sinus tachycardia without obvious ST segment/T wave abnormalities Troponin on admission 21.2, now 18.2 which seems consistent with most recent troponins in July could certainly be demand in the setting of pain Continue to trend - Currently no complaints of chest pain or dyspnea EKG with chest pain as needed (7) BPH (benign prostatic hyperplasia): Plan: BPH Continue home tamsulosin (8) Chronic back pain: Plan: Chronic back pain Continue home baclofen, duloxetine (9) Pulmonary embolism: Plan: History of PE 4 total PEs, with the last one in 2016 On Eliquis chronically Hold Eliquis as above for concern of hematemesis (10) Lung consolidation: Plan: Lung consolidation CTA chest showing consolidation at the right lung base per stat read Patient does not have any obvious respiratory symptoms, no hypoxia at this time - Patient did state he vomited Friday while laying down and had some coughing with vomiting Leukocytosis of 11.5 with neutrophilic predominance Received cefepime and azithromycin in the ED Continue azithromycin and ceftriaxone for now Can consider discontinuation of antibiotics if he continues without symptoms Consider follow-up imaging (11) PTSD (post-traumatic stress disorder): Plan: Anxiety/PTSD Continue home clonazepam twice daily Plan Home Eliquis held DVT prophylaxis - SCDs NPO on IVFs NGT to LIS Awaiting GI and surgical consults Continue to monitor labs and exam PPI IV BID Admission and Anticipated Discharge Date Admission Date: September 27, 2022 Subjective Patient is awake in bed and states he is still nauseated. He tells me that he vomited x 2 last night. He still has the epigastric abdominal discomfort. Patient admits to some chills but denies any fevers, congestion or dyspnea. Patient states his last BM was Friday and was formed and brown. He does admit to passing flatus. He denies any BRB GA or melena. He states his throat feels raw from vomiting and he admits that when he first vomited on Friday he had been laying down and felt like he coughed and choked on his vomit. GI evaluated patient and were concerned about a partial SBO and recommended NGT placement and a surgical consult. Patient had a previous colonoscopy in 2012 and surgical procedure for an anal fissure in [place]. Patient's most recent EGD was in January 2022 that was normal but EUS and ERCP revealed choledocholithiasis Previous EGD pe patient was in 2014 and at that time he had gastric and esophageal ulcers. And was treated with a PPI for several years and stopped in January 2022. Review of Systems Constitutional: + chills, + fatigue and + anorexia; no fever Ear, Nose, Mouth, Throat: + sore throat; no ear pain, no nasal congestion and no facial pain Respiratory: no chest congestion and no dyspnea cough on Friday after vomiting Cardiovascular: no dyspnea, no orthopnea and no lightheadedness Additional Comments: had some chest pain with vomiting Gastrointestinal: + abdominal pain, + nausea, + vomiting and + pain with swallowing; no constipation, no diarrhea/loose stools and no blood in stools possible hematemesis Genitourinary: no dysuria, no difficulty urinating, no urinary frequency, no nocturia or no flank pain Integumentary: no rash, no lesions, no wounds and no pruritus Neurologic: no gait abnormality, no unsteadiness and no falls Psychiatric: + change in appetite; no hopelessness, no anxiety, no panic attacks, no confusion and no hallucinations Physical Exam Constitutional: WD/WN, vitals as above Eyes: PERRL, conjunctivae normal, anicteric sclerae ENMT: external ear and nose normal, oropharynx normal Neck: trachea midline, no thyromegaly Respiratory: normal respiratory effort; no respiratory distress, no labored breathing and no cough Auscultation: lungs clear to auscultation bilaterally and + crackles mild crackles right lower lung Cardiovascular: RRR, no murmur, no edema Gastrointestinal (Abdomen): Inspection/Auscultation: abdomen normal to inspection, normal bowel sounds and + abdominal surgical scar; abdomen not distended Percussion/Palpation: + abdomen tender and abdomen soft; no hepatosplenomegaly and no abdominal mass epigastric tenderness to palpation Skin: no rashes, warm and dry Psychiatric: A+Ox3, euthymic affect Results & Data Results & Data ([facility]) Vital Signs (Past 12 Hours) Vital Signs Temp Pulse Pulse Resp BP BP BP 09/27/22 06:01 112 H 09/27/22 05:35 37.3 C 112 H 18 153/81 H 09/27/22 04:45 37.3 C 112 H 18 153/81 H 09/27/22 04:45 09/27/22 02:22 179/114 H 09/27/22 01:00 160/109 H 09/27/22 02:23 37.5 C 106 H 20 179/114 H 09/26/22 23:58 114 H 18 168/93 H 09/26/22 22:55 36.4 C L 117 H 18 145/86 H Pulse Ox Pulse Ox O2 Del Method O2 Del Method 09/27/22 06:01 09/27/22 05:35 94 Room Air 09/27/22 04:45 94 Room Air 09/27/22 04:45 94 Room Air 09/27/22 02:22 96 09/27/22 01:00 94 09/27/22 02:23 96 Room Air 09/26/22 23:58 94 Room Air 09/26/22 22:55 97 Room Air Laboratory Results Abnormal lab results 09/26/22 09/26/22 09/27/22 Range/Units 23:15 23:15 04:56 WBC 11.50 H (4.8-10.8) K/ul Neut # (Auto) 7.28 H (1.4-6.5) K/uL Immature Gran # (Auto) 0.03 H (0.00-0.02) K/uL Creatinine 2.18 H (0.6-1.4) mg/dl BUN/Creatinine Ratio 9.2 L (10-20) Glucose 286 H (70-99(Fasting)) mg/dl POC Glucose 279 H (70-99) mg/dl AST 79 H (13-39) U/L ALT 72 H (7-52) U/L Alkaline Phosphatase 140 H (34-104) U/L Troponin I High Sens 21.2 H (0-20) pg/ml Total Protein 8.5 H (6.0-8.3) gm/dl Diagnostic Findings Chest X-Ray 09/26/22 23:01 XR chest 1V portable HISTORY: Atypical Chest pain, nonspecific COMPARISON: Chest 02/26/2022. FINDINGS: Hazy patchy bibasilar airspace opacities. There are low lung volumes. No pneumothorax. No pleural fusions. The cardiac silhouette is top normal in size. IMPRESSION: Hazy patchy bibasilar airspace opacities. This may represent a pneumonia. ACT 112: Negative or not required by law. Electronically signed by: Pete Lawson M.D. 09/27/2022 7:59 AM Chest CTA 09/26/22 23:09 CHEST CTA for PULMONARY ART[address] CT DOSE: HISTORY: Vomiting. Mid chest pain. TECHNIQUE: Multiaxial CT images of the chest were performed following the intravenous administration of contrast to evaluate the pulmonary arteries. Maximal intensity projection images were also obtained. A dose lowering technique was utilized adhering to the principles of ALARA. COMPARISON STUDY: Chest CTA 03/08/2022. FINDINGS: The abdominal structures will be reported on the same day abdomen and pelvis CT. The stomach is partially visualized and appears distended with fluid. Moderate circumferential thickening in the mid to distal esophagus with a small amount of fluid within the distal esophagus. The thyroid gland enhances normally. No mediastinal or hilar lymphadenopathy. The heart is normal in size. No pleural or pericardial effusions. No fractures within the visualized osseous structures. The central airways are patent. No pneumothorax. Mild respiratory motion artifact. Patchy groundglass airspace opacities within the bilateral lower lobes most pronounced on the right. This is consistent with a pneumonia and could be due to prior aspiration. No evidence for an aortic dissection. No filling defects within the pulmonary arteries to suggest a pulmonary embolus. IMPRESSION: 1. No evidence for a pulmonary embolus. 2. Bilateral lower lobe airspace opacities consistent with a pneumonia. This could be due to prior aspiration. 3. Moderate circumferential thickening of the mid to distal esophagus consistent with a nonspecific esophagitis. Follow-up endoscopy recommended for further evaluation. 4. Fluid-filled and distended stomach. This is better appreciated on the same day abdomen and pelvis CT. ACT 112: Positive. There are findings on this exam that require communication between the performing entity and the patient following Patient Test Result Information Act ([place] Act 112) guidelines. Electronically signed by: Pete Lawson M.D. 09/27/2022 7:58 AM PG Care Time/CCT Total # of Minutes Spent Total Time Spent with Patient: Total time spent is greater than 50% in coordination of care (as documented) at patient's floor/unit and/or counseling patient: Coding Level of Care Code 70472 Subseq Hosp Care Lvl 3 Medical Decision Making High Complexity Diagnoses Coffee ground emesis K92.0 Partial small bowel obstruction K56.600 Abdominal pain R10.9 Diabetes mellitus E11.9 BRIDGETTE (acute kidney injury) N17.9 Elevated troponin R77.8 BPH (benign prostatic hyperplasia) N40.0 Chronic back pain M54.9; G89.29 Pulmonary embolism I26.99 Lung consolidation J18.1 PTSD (post-traumatic stress disorder) F43.10 Time Spent (min) 20
--- NOTE | 2022-09-27 08:22 | CT Scan Report ---
ABDOMEN AND PELVIS CT WITH IV CONTRAST CT DOSE: 2245.40 mGy.cm HISTORY: Acute epigastric abdominal pain with nausea and vomiting epigastric pain, vomiting TECHNIQUE: Multiaxial CT images of the abdomen and pelvis were performed following the IV administrat ion of 113 cc of Optiray, A dose lowering technique was utilized adhering to the principles of ALARA . COMPARISON STUDY: CTA chest of same day, CT abdomen and pelvis 09/12/2022 FINDINGS: Fluid-filled distal esophagus which demonstrates circumferential wall thickening. Mild patc hy consolidation of the basal right lower lobe with left basilar atelectasis. There is no pneumatosis or pneumoperitoneum. Unremarkable spleen, pancreas and adrenal glands. Cholecystectomy. Hepatic stea tosis. Patency of the hepatic and portal veins. Unremarkable kidneys. No hydronephrosis. Subcentimeter hypodensity of the inferior pole right kidney is too small to characterize. Prostamegaly with mild nonspecific urinary bladder wall thickening. The re is resolution of the previously described inflammatory changes in the pelvis described on the prio r study. Aorta and IVC are unremarkable. There is no lymphadenopathy identified. Fluid-filled distend ed stomach. Colonic diverticulosis. There is mild to moderate colonic fecal retention. Normal appendi x. Air and fluid-filled nondilated loops of small bowel are noted within the central abdomen measurin g up to approximately 2.9 cm. No discrete transition point. Unremarkable soft tissues. Degenerative c hanges of the SI joints. No acute fracture. IMPRESSION: 1. Fluid-filled distal esophagus demonstrates circumferential wall thickening suggestive of esophagit is. 2. Mild right basilar consolidation may indicate aspiration pneumonitis. 3. Fluid-filled distended stomach with several fluid-filled borderline dilated loops of small bowel w ithin the central abdomen. Findings are concerning for a nonspecific gastroenteritis. 4. No high-grade small bowel obstruction or pneumoperitoneum. 5. Normal appendix. 6. Resolution of the previously described mid pelvic inflammatory changes. ACT 112: Negative or not required by law. The above report was generated using voice recognition software. It may contain grammatical, syntax o r spelling errors. Electronically signed by: Ezra Madden M.D. 09/27/2022 8:21 AM
[2022-09-27] MEDS: clonazePAM 1 MG TAB PO SCH ×2 (09:15→20:25)
[2022-09-27] MEDS: LANTUS PER UNIT CHARGE SQ SCH ×2 (09:16→20:24)
--- NOTE | 2022-09-27 09:16 | Electrocardiogram Report ---
Test Reason : Blood Pressure : / mmHG Vent. Rate : 113 BPM Atrial Rate : 113 BPM P-R Int : 132 ms QRS Dur : 078 ms QT Int : 308 ms P-R-T Axes : 056 007 072 degrees QTc Int : 422 ms Poor data quality, interpretation may be adversely affected Sinus tachycardia Diffuse Nonspecific T wave abnormality Abnormal ECG When compared with ECG of 12-SEP-2022 11:45, No significant change was found Confirmed by Soham Branch ([id number]) on 09/27/2022 9:16:28 AM Referred By: REFERRED SELF Confirmed By:Soham Branch
[2022-09-27] MEDS: ONDANSETRON INJ 2 MG/ML 2 ML VIAL IV PRN ×2 (09:24→18:09)
--- NOTE | 2022-09-27 09:28 | Gastrointestinal Consultation ---
Date of Consultation September 27, 2022 Assessment & Plan (1) Coffee ground emesis: 52 year old male with history of T2DM, BPH, PTSD, chronic back pain, pulmonary embolisms on admitted with pain, nausea/vomiting and coffee ground emesis. He has stable HGB w/o BUN elevation. AFter reviewing CT imaging and discussing clinical presentation with radiology staff, clinical concern for SBO. Please arrange general surgery consultation Recommend NG tube LIS NPO Hold Eliquis Trend H&H Monitor and document GI output IV PPI bolus, drip for 72 hours then can convert to either IV BID and PO BID pending clinical status Analgesia PRN Antiemetics PRN No acute indication for EGD given hemodynamic stability and clinical concern for obstructive process. Will need OP EGD. Thank you for allowing us to participate in the care of this patient. Please call with any acute changes, questions or concerns. Please see addendum below with additional recommendation from my supervising physician. Supervising Physician Co-Signing Physician Notes I think patient urinated we were consulted with a question of note the patient's had intermittent nausea and vomiting for several days. He does show distention of the small intestine and stomach suggestive of small bowel obstruction. Surgical history is notable for cholecystectomy which was performed in February of this year. Physical examination No obvious distress No scleral icterus noted Impression: Patient presenting with nausea and vomiting, CT shows distention of both the small bowel and stomach. I wonder if the patient may have adhesions from his prior surgical history. Would recommend placement of an NG tube and general surgery consultation. History of Present Illness Reason for Consultation: coffee ground emesis Requesting Physician: [place] Attending Physician: Naresh Calabrese History of Present Illness 52 year old male with history of T2DM, BPH, PTSD, chronic back pain, pulmonary embolisms on presenting to the ED with abd pain - GI asked to evaluate for coffee ground emesis. Pt was seen and evaluate, chart reviewed. He notes that he developed severe abd pain around Friday. This was epigastric in location and associated with nausea/vomiting which started . Emesis to start was food/bile followed by coffee ground appearing debris. Denies any hematemesis. He suggests since onset of his symptoms, he has not been able to pass any stool, which is uncommon for him. He has passed gas intermittent but is unable to recall when last passage of gas was. Denies previous black/bloody stools No unintentional weight loss No family history of UC or Crohn's CTAP 2021: Fluid-filled distal esophagus demonstrates circumferential wall thickening suggestive of esophagitis. Mild right basilar consolidation may indicate aspiration pneumonitis. Fluid-filled distended stomach with several fluid-filled borderline dilated loops of small bowel within the central abdomen.Findings are concerning for a nonspecific gastroenteritis. Colonoscopy: OSH, years ago per patient this was for BRBPR and was told he had a fissure Allergies Allergy/AdvReac Type Severity Reaction Status Date / Time iodine Allergy Severe THROAT Verified 09/26/22 23:38 SWELLING shellfish derived Allergy Severe THROAT Verified 09/26/22 23:38 SWELLING acetaminophen Allergy Intermediate Chest Pain Verified 09/26/22 23:38 & SOB Iodinated Contrast Media Allergy Intermediate swelling Verified 09/26/22 23:38 hydrocodone AdvReac Intermediate GI ISSUES Verified 09/26/22 23:38 Plasma, Human Allergy Severe ANAPHYLAXIS Uncoded 09/26/22 23:38 Home Medications Medication Instructions Recorded Confirmed Type naloxone 4 mg/actuation nasal spray 1 sprays intranasal Q2M PRN (Drug) 07/27/19 09/26/22 History Ingestion duloxetine 20 mg capsule,delayed 20 mg PO QAM #30 caps 01/07/22 09/26/22 Rx release epinephrine 0.3 mg/0.3 mL 0.3 mg IM DIRECTED PRN Allergic 02/02/22 09/26/22 History injection, auto-injector Reaction insulin aspart U-100 100 unit/mL 0 sliding scale dose subcut AC 02/26/22 09/26/22 History (3 mL) subcutaneous pen (Novolog Flexpen U-100 Insulin aspart) tamsulosin 0.4 mg capsule 0.4 mg PO HS #30 caps 07/31/22 09/26/22 Rx apixaban 5 mg tablet (Eliquis) 5 mg PO BID 08/06/22 09/26/22 History baclofen 10 mg tablet 10 mg PO TID PRN MUSCLE SPASMS 08/06/22 09/26/22 History polyethylene glycol 3350 17 gram 17 g PO DAILY PRN Constipation 08/06/22 09/26/22 History oral powder packet (Miralax) sennosides 8.6 mg tablet (Senokot) 17.2 mg PO DAILY PRN Constipation 08/06/22 09/26/22 History insulin glargine 100 unit/mL (3 50 unit (0.5 mL) subcut BID #45 mL 08/13/22 09/26/22 Rx mL) subcutaneous pen (Lantus Solostar U-100 Insulin) duloxetine 60 mg capsule,delayed 60 mg PO QAM #30 caps 09/10/22 09/26/22 Rx release oxycodone 5 mg tablet 5 mg PO Q6H PRN pain #6 tabs 09/12/22 09/26/22 Rx clonazepam 2 mg tablet 2 mg PO BID 25 days #50 tabs 09/20/22 09/26/22 Rx methylphenidate HCl 20 mg tablet 20 mg PO BID #60 tabs 09/27/22 Rx Patient History Medical History Abnormal EKG 2017 > no further follow up needed per patient Anxiety CKD (chronic kidney disease), stage III no specialist > improving per pt report Depression DM w/o complication type II, uncontrolled Most recent Hgb A1C 7.1 on 02/26/22 Esophagitis Gastrointestinal hemorrhage 2016 > resolved History of alcohol abuse History of pleural effusion 2013> [facility] Hypertriglyceridemia Insomnia Lesion of liver Under observation > Dr. Azevedo Myalgia and myositis Obesity Pancreatitis with biliary duct stent done 02/08/22 PTSD (post-traumatic stress disorder) Pulmonary embolism 4 total> last one 2015> Eliquis Transaminitis Surgical History History of cardiac cath 2016 due to chest pain> was clear per patient> no stents> [facility] History of colonoscopy History of ERCP History of esophagogastroduodenoscopy (EGD) History of shoulder surgery (~11/2019) left Hx laparoscopic cholecystectomy (03/05/22) Laparoscopic Cholecystectomy(Not Applicable) - Clayton Vela DO Hx of surgical procedure colorectal for fissure S/P arthroscopy of shoulder 07/23/19 Dr. Cortes Carranza- Left shoulder arthroscopy with superior labrum anterior to posterior repair; Debridement of glenoid labrum; Synovectomy; Subacromial decompression with acromioplasty; Distal clavicle excision with excision of 10 mm of distal clavicle. Status post laparoscopic cholecystectomy Family History Mother , s/p brain aneurysm Aneurysm Other Hypertension Denies family history of Ovarian cancer Prostate cancer Myocardial infarction Breast cancer Colorectal cancer Social History Smoking Status: Never smoker Second Hand Exposure: Yes; Hx Alcohol Use: Yes (Rarely) Alcohol type: beer Hx Substance Use: No Preferred Language: Georgian Communication Ability: Effective Visual Impairment: No Limitations Hearing Ability: Normal Director Medical Writing Required: No Beliefs That Will Affect Care: None marital status: Single Current Living Situation: Alone Current Living Situation Comment: with a friend current occupational status: disabled Feels Safe at Home: Yes Childhood Exposure to Second-Hand Smoke: No Dental Care, Regularly: Yes Physical Activity Frequency: Does not Exercise Seatbelt Use: always Sunscreen Use: No Assistive Devices: None Review of Systems Review of Systems: All systems reviewed & are unremarkable except as noted in HPI & below Physical Exam Constitutional: WD/WN, vitals as above Respiratory: normal respiratory effort Cardiovascular: Rate/Rhythm: regular rate and regular rhythm Gastrointestinal (Abdomen): Inspection/Auscultation: abdomen normal to inspection and + abdomen distended Percussion/Palpation: + abdomen tender and abdomen soft; no guarding and abdomen not rigid + diminished bowel sounds Skin: no rashes, warm and dry Results & Data ([facility]) Vital Signs (Past 12 Hours) Vital Signs Temp Pulse Pulse Resp BP BP BP 09/27/22 08:00 37 C 106 H 20 151/71 H 09/27/22 06:01 112 H 09/27/22 05:35 37.3 C 112 H 18 153/81 H 09/27/22 04:45 37.3 C 112 H 18 153/81 H 09/27/22 04:45 09/27/22 02:22 179/114 H 09/27/22 01:00 160/109 H 09/27/22 02:23 37.5 C 106 H 20 179/114 H 09/26/22 23:58 114 H 18 168/93 H 09/26/22 22:55 36.4 C L 117 H 18 145/86 H Pulse Ox Pulse Ox O2 Del Method O2 Del Method 09/27/22 08:00 93 Room Air 09/27/22 06:01 09/27/22 05:35 94 Room Air 09/27/22 04:45 94 Room Air 09/27/22 04:45 94 Room Air 09/27/22 02:22 96 09/27/22 01:00 94 09/27/22 02:23 96 Room Air 09/26/22 23:58 94 Room Air 09/26/22 22:55 97 Room Air Laboratory Results 09/27/22 09/27/22 09/27/22 Range/Units 05:36 04:56 02:22 WBC (4.8-10.8) K/ul RBC (4.63-6.08) M/uL Hgb (14.0-18.0) g/dl Hct (40.1-51.0) % MCV (80.0-100.0) fL MCH (25.0-34.0) pg MCHC (32.0-36.0) g/dL RDW Std Deviation (36.4-46.3) fL RDW Coeff of Lillie (11.5-14.5) % Plt Count (130-400) K/uL MPV (9.4-12.4) fL Immature Gran % (Auto) % Neut % (Auto) % Lymph % (Auto) % Alfalfa % (Auto) % Eos % (Auto) % Baso % (Auto) % Neut # (Auto) (1.4-6.5) K/uL Lymph # (Auto) (1.2-3.4) K/uL Alfalfa # (Auto) (0.24-0.82) K/uL Eos # (Auto) (0-0.50) K/uL Baso # (Auto) (0-0.2) K/uL Immature Gran # (Auto) (0.00-0.02) K/uL PT (9.0-12.0) Seconds INR (0.9-1.1) APTT (21.0-31.0) Seconds PTT Ratio Sodium (136-145) mmol/L Potassium (3.5-5.1) mmol/L Chloride (98-107) mmol/L Carbon Dioxide (21-32) mmol/L Anion Gap (3-11) BUN (6-23) mg/dl Creatinine (0.6-1.4) mg/dl Est Cr Clr Drug Dosing ml/min Est GFR ( Amer) ml/min Est GFR (Non-Af Amer) ml/min BUN/Creatinine Ratio (10-20) Glucose (70-99(Fasting)) mg/dl POC Glucose 279 H (70-99) mg/dl Calcium (8.5-10.1) mg/dl Total Bilirubin (0.2-1.0) mg/dl AST (13-39) U/L ALT (7-52) U/L Alkaline Phosphatase (34-104) U/L Troponin I High Sens 18.2 (0-20) pg/ml Total Protein (6.0-8.3) gm/dl Albumin (3.4-5.0) gm/dl Globulin (2.5-4.0) gm/dl Albumin/Globulin Ratio (0.9-2) Lipase (11-82) U/L Nasal Screen MRSA (PCR) Negative (Negative) SARS-CoV-2, RNA, NAAT (NEGATIVE) 09/27/22 09/26/22 09/26/22 Range/Units 00:14 23:15 23:15 WBC (4.8-10.8) K/ul RBC (4.63-6.08) M/uL Hgb (14.0-18.0) g/dl Hct (40.1-51.0) % MCV (80.0-100.0) fL MCH (25.0-34.0) pg MCHC (32.0-36.0) g/dL RDW Std Deviation (36.4-46.3) fL RDW Coeff of Lillie (11.5-14.5) % Plt Count (130-400) K/uL MPV (9.4-12.4) fL Immature Gran % (Auto) % Neut % (Auto) % Lymph % (Auto) % Alfalfa % (Auto) % Eos % (Auto) % Baso % (Auto) % Neut # (Auto) (1.4-6.5) K/uL Lymph # (Auto) (1.2-3.4) K/uL Alfalfa # (Auto) (0.24-0.82) K/uL Eos # (Auto) (0-0.50) K/uL Baso # (Auto) (0-0.2) K/uL Immature Gran # (Auto) (0.00-0.02) K/uL PT 11.4 (9.0-12.0) Seconds INR 1.1 (0.9-1.1) APTT 27.7 (21.0-31.0) Seconds PTT Ratio 1.0 Sodium 138 (136-145) mmol/L Potassium 4.1 (3.5-5.1) mmol/L Chloride 98 (98-107) mmol/L Carbon Dioxide 31 (21-32) mmol/L Anion Gap 9 (3-11) BUN 20 (6-23) mg/dl Creatinine 2.18 H (0.6-1.4) mg/dl Est Cr Clr Drug Dosing 57.5 ml/min Est GFR ( Amer) 39.5 ml/min Est GFR (Non-Af Amer) 34.1 ml/min BUN/Creatinine Ratio 9.2 L (10-20) Glucose 286 H (70-99(Fasting)) mg/dl POC Glucose (70-99) mg/dl Calcium 9.2 (8.5-10.1) mg/dl Total Bilirubin 0.6 (0.2-1.0) mg/dl AST 79 H (13-39) U/L ALT 72 H (7-52) U/L Alkaline Phosphatase 140 H (34-104) U/L Troponin I High Sens 21.2 H (0-20) pg/ml Total Protein 8.5 H (6.0-8.3) gm/dl Albumin 4.5 (3.4-5.0) gm/dl Globulin 4.0 (2.5-4.0) gm/dl Albumin/Globulin Ratio 1.1 (0.9-2) Lipase 51 (11-82) U/L Nasal Screen MRSA (PCR) (Negative) SARS-CoV-2, RNA, NAAT NEGATIVE (NEGATIVE) 09/26/22 Range/Units 23:15 WBC 11.50 H (4.8-10.8) K/ul RBC 5.12 (4.63-6.08) M/uL Hgb 15.1 (14.0-18.0) g/dl Hct 45.2 (40.1-51.0) % MCV 88.3 (80.0-100.0) fL MCH 29.5 (25.0-34.0) pg MCHC 33.4 (32.0-36.0) g/dL RDW Std Deviation 41.8 (36.4-46.3) fL RDW Coeff of Lillie 12.9 (11.5-14.5) % Plt Count 297 (130-400) K/uL MPV 11.7 (9.4-12.4) fL Immature Gran % (Auto) 0.3 % Neut % (Auto) 63.3 % Lymph % (Auto) 28.3 % Alfalfa % (Auto) 6.5 % Eos % (Auto) 1.2 % Baso % (Auto) 0.4 % Neut # (Auto) 7.28 H (1.4-6.5) K/uL Lymph # (Auto) 3.25 (1.2-3.4) K/uL Alfalfa # (Auto) 0.75 (0.24-0.82) K/uL Eos # (Auto) 0.14 (0-0.50) K/uL Baso # (Auto) 0.05 (0-0.2) K/uL Immature Gran # (Auto) 0.03 H (0.00-0.02) K/uL PT (9.0-12.0) Seconds INR (0.9-1.1) APTT (21.0-31.0) Seconds PTT Ratio Sodium (136-145) mmol/L Potassium (3.5-5.1) mmol/L Chloride (98-107) mmol/L Carbon Dioxide (21-32) mmol/L Anion Gap (3-11) BUN (6-23) mg/dl Creatinine (0.6-1.4) mg/dl Est Cr Clr Drug Dosing ml/min Est GFR ( Amer) ml/min Est GFR (Non-Af Amer) ml/min BUN/Creatinine Ratio (10-20) Glucose (70-99(Fasting)) mg/dl POC Glucose (70-99) mg/dl Calcium (8.5-10.1) mg/dl Total Bilirubin (0.2-1.0) mg/dl AST (13-39) U/L ALT (7-52) U/L Alkaline Phosphatase (34-104) U/L Troponin I High Sens (0-20) pg/ml Total Protein (6.0-8.3) gm/dl Albumin (3.4-5.0) gm/dl Globulin (2.5-4.0) gm/dl Albumin/Globulin Ratio (0.9-2) Lipase (11-82) U/L Nasal Screen MRSA (PCR) (Negative) SARS-CoV-2, RNA, NAAT (NEGATIVE)
--- NOTE | 2022-09-27 12:02 | Surgery Consultation ---
Date of Consultation September 27, 2022 Assessment & Plan (1) Partial small bowel obstruction: CT images and results personally viewed by myself He does have a fluid-filled stomach with some mild dilation of the small bowel which certainly could reflect a partial small bowel obstruction He is passing flatus which is a good sign He is awaiting NG tube placement No plans for any surgical intervention Will follow History of Present Illness Reason for Consultation: Small bowel obstruction Attending Physician: Naresh Calabrese History of Present Illness This is a 52-year-old male who presents to the hospital last evening with abdominal pain, coffee-ground emesis and nausea and vomiting. He states that this developed about 2 days ago after he ate some pizza hot. He then had a bowel movement since Friday but is passing significant flatus. His only abdominal surgery is a history of a laparoscopic cholecystectomy earlier this year. He describes his abdominal pain as worse in the epigastric region and is associated with some heartburn. He states the pain is sharp and there are no worsening or relieving factors. He does take Eliquis for some history of PEs. He had a CT abdomen pelvis that was concerning for gastroenteritis versus partial small bowel obstruction. At the time of my seeing him he was awaiting NG tube placement. Allergies Allergy/AdvReac Type Severity Reaction Status Date / Time iodine Allergy Severe THROAT Verified 09/26/22 23:38 SWELLING shellfish derived Allergy Severe THROAT Verified 09/26/22 23:38 SWELLING acetaminophen Allergy Intermediate Chest Pain Verified 09/26/22 23:38 & SOB Iodinated Contrast Media Allergy Intermediate swelling Verified 09/26/22 23:38 hydrocodone AdvReac Intermediate GI ISSUES Verified 09/26/22 23:38 Plasma, Human Allergy Severe ANAPHYLAXIS Uncoded 09/26/22 23:38 Home Medications Medication Instructions Recorded Confirmed Type naloxone 4 mg/actuation nasal spray 1 sprays intranasal Q2M PRN (Drug) 07/27/19 09/26/22 History Ingestion duloxetine 20 mg capsule,delayed 20 mg PO QAM #30 caps 01/07/22 09/26/22 Rx release epinephrine 0.3 mg/0.3 mL 0.3 mg IM DIRECTED PRN Allergic 02/02/22 09/26/22 History injection, auto-injector Reaction insulin aspart U-100 100 unit/mL 0 sliding scale dose subcut AC 02/26/22 09/26/22 History (3 mL) subcutaneous pen (Novolog Flexpen U-100 Insulin aspart) tamsulosin 0.4 mg capsule 0.4 mg PO HS #30 caps 07/31/22 09/26/22 Rx apixaban 5 mg tablet (Eliquis) 5 mg PO BID 08/06/22 09/26/22 History baclofen 10 mg tablet 10 mg PO TID PRN MUSCLE SPASMS 08/06/22 09/26/22 History polyethylene glycol 3350 17 gram 17 g PO DAILY PRN Constipation 08/06/22 09/26/22 History oral powder packet (Miralax) sennosides 8.6 mg tablet (Senokot) 17.2 mg PO DAILY PRN Constipation 08/06/22 09/26/22 History insulin glargine 100 unit/mL (3 50 unit (0.5 mL) subcut BID #45 mL 08/13/22 09/26/22 Rx mL) subcutaneous pen (Lantus Solostar U-100 Insulin) methylphenidate HCl 20 mg tablet 20 mg PO BID #60 tabs 08/30/22 09/26/22 Rx duloxetine 60 mg capsule,delayed 60 mg PO QAM #30 caps 09/10/22 09/26/22 Rx release oxycodone 5 mg tablet 5 mg PO Q6H PRN pain #6 tabs 09/12/22 09/26/22 Rx clonazepam 2 mg tablet 2 mg PO BID 25 days #50 tabs 09/20/22 09/26/22 Rx Patient History Medical History Abnormal EKG 2017 > no further follow up needed per patient Anxiety CKD (chronic kidney disease), stage III no specialist > improving per pt report Depression DM w/o complication type II, uncontrolled Most recent Hgb A1C 7.1 on 02/26/22 Esophagitis Gastrointestinal hemorrhage 2016 > resolved History of alcohol abuse History of pleural effusion 2013> [facility] Hypertriglyceridemia Insomnia Lesion of liver Under observation > Dr. Azevedo Myalgia and myositis Obesity Pancreatitis with biliary duct stent done 02/08/22 PTSD (post-traumatic stress disorder) Pulmonary embolism 4 total> last one 2016> Eliquis Transaminitis Surgical History History of cardiac cath 2016 due to chest pain> was clear per patient> no stents> [facility] History of colonoscopy History of ERCP History of esophagogastroduodenoscopy (EGD) History of shoulder surgery (~11/2019) left Hx laparoscopic cholecystectomy (03/05/22) Laparoscopic Cholecystectomy(Not Applicable) - Clayton Vela DO Hx of surgical procedure colorectal for fissure S/P arthroscopy of shoulder 07/23/19 Dr. Cortes Carranza- Left shoulder arthroscopy with superior labrum anterior to posterior repair; Debridement of glenoid labrum; Synovectomy; Subacromial decompression with acromioplasty; Distal clavicle excision with excision of 10 mm of distal clavicle. 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 Required: No Beliefs That Will Affect Care: None marital status: Single Current Living Situation: Alone Current Living Situation Comment: with a friend current occupational status: disabled Feels Safe at Home: Yes Childhood Exposure to Second-Hand Smoke: No Dental Care, Regularly: Yes Physical Activity Frequency: Does not Exercise Seatbelt Use: always Sunscreen Use: No Assistive Devices: Glasses Review of Systems Constitutional: no fever and no chills Eyes: no worsening vision Ear, Nose, Mouth, Throat: no ear pain and no hearing loss Respiratory: no cough and no dyspnea Cardiovascular: no chest pain and no dyspnea on exertion Gastrointestinal: + abdominal pain, + bloating, + heartburn, + nausea, + vomiting, + coffee ground emesis and + constipation Genitourinary: no dysuria Musculoskeletal: no back pain and no neck pain Integumentary: no rash, no non-healing lesions, no skin ulcer and no sores Neurologic: no headache(s) Psychiatric: no behavioral changes and no depression Hematologic / Lymphatic: no easy bleeding and no easy bruising On Eliquis Physical Exam Constitutional: WD/WN, vitals as above Eyes: PERRL, conjunctivae normal, anicteric sclerae ENMT: external ear and nose normal, oropharynx normal Neck: trachea midline, no thyromegaly Respiratory: normal respiratory effort, lungs clear to auscultation Cardiovascular: RRR, no murmur, no edema Gastrointestinal (Abdomen): Inspection/Auscultation: abdomen normal to inspection; abdomen not distended Percussion/Palpation: + abdomen tender (Mild diffuse) and abdomen soft; no guarding, abdomen not rigid and no hernia Musculoskeletal: no cyanosis or clubbing, extremities motor strength 5/5 Skin: no rashes, warm and dry Neurologic: PERRL, EOMI, accommodation nl, no face palsy, no dysarthria Psychiatric: A+Ox3, euthymic affect Results & Data ([facility]) Vital Signs (Past 12 Hours) Vital Signs Temp Pulse Pulse Resp BP BP BP 09/27/22 08:00 37 C 106 H 20 151/71 H 09/27/22 06:01 112 H 09/27/22 05:35 37.3 C 112 H 18 153/81 H 09/27/22 04:45 37.3 C 112 H 18 153/81 H 09/27/22 04:45 09/27/22 02:22 179/114 H 09/27/22 01:00 160/109 H 09/27/22 02:23 37.5 C 106 H 20 179/114 H 09/26/22 23:58 114 H 18 168/93 H Pulse Ox Pulse Ox O2 Del Method O2 Del Method 09/27/22 08:00 93 Room Air 09/27/22 06:01 09/27/22 05:35 94 Room Air 09/27/22 04:45 94 Room Air 09/27/22 04:45 94 Room Air 09/27/22 02:22 96 09/27/22 01:00 94 09/27/22 02:23 96 Room Air 09/26/22 23:58 94 Room Air Diagnostic Findings ADDENDUM 3. Fluid-filled distended stomach with several fluid-filled borderline dilated loops of small bowel within the central abdomen. Findings are concerning for a nonspecific gastroenteritis.--A low-grade or partial small bowel obstruction could appear similarly. Electronically signed by: Ezra Madden M.D. 09/27/2022 9:22 AM ADDENDUM END ABDOMEN AND PELVIS CT WITH IV CONTRAST CT DOSE: 2245.40 mGy.cm HISTORY: Acute epigastric abdominal pain with nausea and vomiting epigastric pain, vomiting TECHNIQUE: Multiaxial CT images of the abdomen and pelvis were performed following the IV administration of 113 cc of Optiray, A dose lowering technique was utilized adhering to the principles of ALARA. COMPARISON STUDY: CTA chest of same day, CT abdomen and pelvis 09/12/2022 FINDINGS: Fluid-filled distal esophagus which demonstrates circumferential wall thickening. Mild patchy consolidation of the basal right lower lobe with left ba silar atelectasis. There is no pneumatosis or pneumoperitoneum. Unremarkable spleen, pancreas and adrenal glands. Cholecystectomy. Hepatic steatosis. Patency of the hepatic and portal veins. Unremarkable kidneys. No hydronephrosis. Subcentimeter hypodensity of the inferior pole right kidney is too small to characterize. Prostamegaly with mild nonspecific urinary bladder wall thickening. There is resolution of the previously described inflammatory changes in the pelvis described on the prior study. Aorta and IVC are unremarkable. There is no lymphadenopathy identified. Fluid-filled distended stomach. Colonic diverticulosis. There is mild to moderate colonic fecal retention. Normal appendix. Air and fluid-filled nondilated loops of small bowel are noted within the central abdomen measuring up to approximately 2.9 cm. No discrete transition point. Unremarkable soft tissues. Degenerative changes of the SI joints. No acute fracture. IMPRESSION: 1. Fluid-filled distal esophagus demonstrates circumferential wall thickening suggestive of esophagitis. 2. Mild right basilar consolidation may indicate aspiration pneumonitis. 3. Fluid-filled distended stomach with several fluid-filled borderline dilated loops of small bowel within the central abdomen. Findings are concerning for a nonspecific gastroenteritis. 4. No high-grade small bowel obstruction or pneumoperitoneum. 5. Normal appendix. 6. Resolution of the previously described mid pelvic inflammatory changes. PG Care Time/CCT Total # of Minutes Spent Total Time Spent with Patient: Total time spent is greater than 50% in coordination of care (as documented) at patient's floor/unit and/or counseling patient: Coding Level of Care Code 56798 Initial Inpt Care Lvl 3 Diagnoses Partial small bowel obstruction K56.600
--- NOTE | 2022-09-27 13:16 | XRay Report ---
KUB CLINICAL HISTORY: NGT placement COMPARISON STUDY: CT of the abdomen and pelvis performed earlier today. FINDINGS: Cholecystectomy clips are incidentally noted. Tip of nasogastric tube projects over the pro ximal body of the stomach. Sidehole projects over the GE junction. The tube could be advanced an natalio tional 3 cm. IMPRESSION: Tip of nasogastric tube projects over the proximal body of the stomach. Sidehole project s over the GE junction. The tube could be advanced an additional 3 cm. ACT 112: Negative or not required by law. Electronically signed by: Lukas Duke M.D. 09/27/2022 1:14 PM
[2022-09-27] MEDS ORDERED: diphenhydrAMINE 50 MG/ML VIAL IV STA (15:33)
[2022-09-27] MEDS: TAMSULOSIN HCL 0.4 MG CAP PO SCH (20:25)
[2022-09-27] MEDS ORDERED: diphenhydrAMINE 50 MG/ML VIAL IV ONE (21:16)
[2022-09-28] MEDS: INSULIN ASPART PER UNIT SC SCH ×3 (05:19→18:05)
[2022-09-28] MEDS: DEXTROSE 50% 50 ML SYRINGE IV PRN ×2 (05:40→18:11)
[2022-09-28] MEDS: HYDROmorphone INJ 0.5 MG/0.5 ML SYR IV PRN ×4 (05:59→19:27)
[2022-09-28] MEDS ORDERED: AZITHROMYCIN 500 MG in DEXTROSE 5% 250 ML IV SCH (06:00)
[2022-09-28 06:07] LABS: Albumin Globulin Ratio 1.2 (0.9-2); Albumin Level 3.5 gm/dl (3.4-5.0); BUN Creatinine Ratio 10.7 (10-20); Bilirubin,Total 0.6 mg/dl (0.2-1.0); Calcium 7.8 mg/dl (8.5-10.1); Creatinine Clr Calc Pharmacy 95.4 ml/min; Est GFR (African American) 73.1 ml/min; Magnesium 1.5 mg/dl (1.7-2.4); Total Protein 6.5 gm/dl (6.0-8.3); Troponin I High Sensitivity 28.6 pg/ml (0-20)
[2022-09-28 06:11] LABS: Estimated Average Glucose 255 mg/dl; Hemoglobin A1C 10.5 % (4.5-5.6)
[2022-09-28 06:45] LABS: Basophils # (auto) 0.06 K/uL (0-0.2); Basophils % (auto) 0.8 %; Eosinophils # (auto) 0.06 K/uL (0-0.50); Eosinophils % (auto) 0.8 %; Hemoglobin 11.8 g/dl (14.0-18.0); Immature Granulocytes # (auto) 0.01 K/uL (0.00-0.02); Immature Granulocytes % (auto) 0.1 %; Lymphocytes # (auto) 2.34 K/uL (1.2-3.4); Lymphocytes % (auto) 31.2 %; Mean Corpuscular Hemoglobin 29.9 pg (25.0-34.0); Mean Corpuscular Hgb Conc 33.7 g/dL (32.0-36.0); Mean Corpuscular Volume 88.6 fL (80.0-100.0); Mean Platelet Volume 10.9 fL (9.4-12.4); Monocytes # (auto) 0.39 K/uL (0.24-0.82); Monocytes % (auto) 5.2 %; Neutrophils # (auto) 4.64 K/uL (1.4-6.5); Neutrophils % (auto) 61.9 %; Platelet Count 160 K/uL (130-400); RDW Coefficient of Variation 12.5 % (11.5-14.5); RDW Standard Deviation 40.6 fL (36.4-46.3); Red Blood Count 3.95 M/uL (4.63-6.08)
[2022-09-28] MEDS: POTASSIUM CHLORIDE / WTR 10 MEQ/100 ML PLCT IV SCH ×4 (07:09→11:23)
--- NOTE | 2022-09-28 07:12 | XRay Report ---
KUB CLINICAL HISTORY: Enteric tube placement. FINDINGS: An AP portable view of the lower chest and upper abdomen is compared to abdominal radiograp h and CT dated 09/27/2022. The enteric tube has been advanced. The tip now projects over the mid to d istal stomach. Cholecystectomy clips are seen in the right upper quadrant. There is no radiographic e vidence of bowel obstruction. No evidence of intraperitoneal free air seen below the diaphragm. There are no abnormal abdominal calcifications. The bony structures appear intact. Mild interspace consoli dation is seen at the lung bases. IMPRESSION: 1. An enteric tube has been advanced as above. 2. No bowel obstruction. 3. Airspace consolidation is suggested at the lung bases. Electronically signed by: Kendall Dee M.D. 09/28/2022 7:10 AM
[2022-09-28] MEDS: LACTATED RINGER'S 1,000 ML IV SCH ×3 (07:13→23:55)
--- NOTE | 2022-09-28 07:56 | Hospitalist Progress Note ---
Date of Service September 28, 2022 Assessment & Plan (1) Coffee ground emesis: Plan: Coffee-ground emesis Patient reports several episodes of coffee-ground emesis with diffuse abdominal pain, worse at the epigastrium/lower chest Patient does have history of GERD/esophagitis Hemoglobin on admission 15.1 CT A/P showing mild fluid distention of small bowel loops without focal point of obstruction, no acute pathology in the abdomen or pelvis - CT chest mild circumferential thickening of distal esophagus follow up endoscopy is recommended Will make patient n.p.o. Hold home Eliquis Protonix 40 mg IV twice daily Consult gastroenterology for consideration of EGD (2) Partial small bowel obstruction: Plan: - Surgery following - Continue NPO and NGT to LIS - Dulcolax suppository ordered - Encourage up and OOB (3) Abdominal pain: Plan: Epigastric abdominal pain - Continue to monitor abdominal exams - NPO - NGT to LIS - GI and Surgery following - Continue PPI BID - Zofran as needed Chronic constipation - Dulcolax suppository today Continue as needed MiraLAX and Senokot (4) Diabetes mellitus: Plan: DM 2 Lantus 50 units twice daily -- home dosing Placed on Hold while NPO Sliding scale for coverage (5) BRIDGETTE (acute kidney injury): Plan: BRIDGETTE on CKD Creatinine 2.19 on admission, baseline creatinine at normal levels Most recently prior to this admission with eGFR in the 80s putting him at stage II CKD Renally dose medications Avoid nephrotoxins LR at 125 cc/h Monitor creatinine (hx of hepatorenal syndrome secondary to prework out supplementation use in the past and had dialysis x 1 in January 2022 per patient) (6) Elevated troponin: Plan: EKG showing sinus tachycardia without obvious ST segment/T wave abnormalities Troponin on admission 21.2, now 18.2 which seems consistent with most recent troponins in July could certainly be demand in the setting of pain Continue to trend - Currently no complaints of chest pain or dyspnea EKG with chest pain as needed (7) BPH (benign prostatic hyperplasia): Plan: BPH Continue home tamsulosin (8) Chronic back pain: Plan: Chronic back pain Continue home baclofen, duloxetine (9) Pulmonary embolism: Plan: History of PE 4 total PEs, with the last one in 2016 On Eliquis chronically Hold Eliquis as above for concern of hematemesis (10) Lung consolidation: Plan: Lung consolidation/Possible aspiration CTA chest showing consolidation at the right lung base per stat read Patient does not have any obvious respiratory symptoms, no hypoxia at this time - Patient did state he vomited Friday while laying down and had some coughing with vomiting Leukocytosis of 11.5 with neutrophilic predominance - improving Received cefepime and azithromycin in the ED Changed to Unasyn IV q 6 hours Can consider discontinuation of antibiotics if he continues without symptoms Consider follow-up imaging (11) PTSD (post-traumatic stress disorder): Plan: Anxiety/PTSD Continue home clonazepam twice daily Plan Home Eliquis held DVT prophylaxis - SCDs NPO on IVFs NGT to LIS Awaiting GI and surgical consults Continue to monitor labs and exam PPI IV BID Admission and Anticipated Discharge Date Admission Date: September 27, 2022 Subjective Patient is awake in bed and states he feels weak and tired secondary to having a low blood sugar. He tells me that his BS was in the 58 and he was given glucose and currently his BS is 71. Patient is still NPO and with NGT to LIS with bilious drainage. He has been passing flatus but no BM. Surgery ordered a Dulcolax suppository. He does tell me that he feels less bloated today compared to yesterday. Review of Systems Constitutional: + chills, + fatigue and + anorexia; no fever Ear, Nose, Mouth, Throat: + sore throat; no ear pain, no nasal congestion and no facial pain Respiratory: no chest congestion and no dyspnea cough on Friday after vomiting Cardiovascular: no dyspnea, no orthopnea and no lightheadedness Additional Comments: had some chest pain with vomiting Gastrointestinal: + abdominal pain, + nausea, + vomiting and + pain with s wallowing; no constipation, no diarrhea/loose stools and no blood in stools possible hematemesis Genitourinary: no dysuria, no difficulty urinating, no urinary frequency, no nocturia or no flank pain Integumentary: no rash, no lesions, no wounds and no pruritus Neurologic: no gait abnormality, no unsteadiness and no falls Psychiatric: + change in appetite; no hopelessness, no anxiety, no panic attacks, no confusion and no hallucinations Physical Exam Constitutional: WD/WN, vitals as above Eyes: PERRL, conjunctivae normal, anicteric sclerae ENMT: external ear and nose normal, oropharynx normal Neck: trachea midline, no thyromegaly Respiratory: normal respiratory effort; no respiratory distress, no labored breathing and no cough Auscultation: lungs clear to auscultation bilaterally and + crackles Cardiovascular: RRR, no murmur, no edema Gastrointestinal (Abdomen): Inspection/Auscultation: abdomen normal to inspection, normal bowel sounds and + abdominal surgical scar; abdomen not distended Percussion/Palpation: + abdomen tender and abdomen soft; no hepatosplenomegaly and no abdominal mass Skin: no rashes, warm and dry Psychiatric: A+Ox3, euthymic affect Results & Data Results & Data ([facility]) Vital Signs (Past 12 Hours) Vital Signs Temp Pulse Pulse Resp BP Pulse Ox Pulse Ox 09/28/22 07:37 36.5 C 88 19 173/109 H 95 09/28/22 07:34 87 09/28/22 04:45 95 09/28/22 04:39 36.7 C 78 20 153/95 H 95 09/28/22 03:22 36.6 C 86 18 142/75 H 93 09/27/22 23:15 36.8 C 103 H 20 168/93 H 94 09/27/22 23:28 93 H O2 Del Method O2 Del Method 09/28/22 07:37 Room Air 09/28/22 07:34 09/28/22 04:45 Room Air 09/28/22 04:39 Room Air 09/28/22 03:22 Room Air 09/27/22 23:15 Room Air 09/27/22 23:28 Laboratory Results Abnormal lab results 09/27/22 09/27/22 09/28/22 Range/Units 12:27 18:02 05:01 RBC (4.63-6.08) M/uL Hgb (14.0-18.0) g/dl Hct (40.1-51.0) % Potassium (3.5-5.1) mmol/L Glucose (70-99(Fasting)) mg/dl POC Glucose 186 H 110 H 61 L* (70-99) mg/dl Hemoglobin A1c (4.5-5.6) % Calcium (8.5-10.1) mg/dl Magnesium (1.7-2.4) mg/dl AST (13-39) U/L Troponin I High Sens (0-20) pg/ml 09/28/22 09/28/22 09/28/22 Range/Units 05:25 05:25 05:25 RBC 3.95 L (4.63-6.08) M/uL Hgb 11.8 L D (14.0-18.0) g/dl Hct 35.0 L (40.1-51.0) % Potassium 3.0 L D (3.5-5.1) mmol/L Glucose 60 L (70-99(Fasting)) mg/dl POC Glucose (70-99) mg/dl Hemoglobin A1c 10.5 H (4.5-5.6) % Calcium 7.8 L (8.5-10.1) mg/dl Magnesium 1.5 L (1.7-2.4) mg/dl AST 62 H (13-39) U/L Troponin I High Sens 28.6 H D (0-20) pg/ml 09/28/22 09/28/22 Range/Units 05:28 05:54 RBC (4.63-6.08) M/uL Hgb (14.0-18.0) g/dl Hct (40.1-51.0) % Potassium (3.5-5.1) mmol/L Glucose (70-99(Fasting)) mg/dl POC Glucose 58 L* 101 H (70-99) mg/dl Hemoglobin A1c (4.5-5.6) % Calcium (8.5-10.1) mg/dl Magnesium (1.7-2.4) mg/dl AST (13-39) U/L Troponin I High Sens (0-20) pg/ml Diagnostic Findings Chest X-Ray 09/26/22 23:01 XR chest 1V portable HISTORY: Atypical Chest pain, nonspecific COMPARISON: Chest 02/26/2022. FINDINGS: Hazy patchy bibasilar airspace opacities. There are low lung volumes. No pneumothorax. No pleural fusions. The cardiac silhouette is top normal in size. IMPRESSION: Hazy patchy bibasilar airspace opacities. This may represent a pneumonia. ACT 112: Negative or not required by law. Electronically signed by: Pete Lawson M.D. 09/27/2022 7:59 AM Abdomen/Pelvis CT 09/26/22 23:[address] WITH IV CONTRAST CT DOSE: 2245.40 mGy.cm HISTORY: Acute epigastric abdominal pain with nausea and vomiting epigastric pain, vomiting TECHNIQUE: Multiaxial CT images of the abdomen and pelvis were performed following the IV administration of 113 cc of Optiray, A dose lowering technique was utilized adhering to the principles of ALARA. COMPARISON STUDY: CTA chest of same day, CT abdomen and pelvis 09/12/2022 FINDINGS: Fluid-filled distal esophagus which demonstrates circumferential wall thickening. Mild patchy consolidation of the basal right lower lobe with left basilar atelectasis. There is no pneumatosis or pneumoperitoneum. Unremarkable spleen, pancreas and adrenal glands. Cholecystectomy. Hepatic steatosis. Patency of the hepatic and portal veins. Unremarkable kidneys. No hydronephrosis. Subcentimeter hypodensity of the inferior pole right kidney is too small to characterize. Prostamegaly with mild nonspecific urinary bladder wall thickening. There is resolution of the previously described inflammatory changes in the pelvis described on the prior study. Aorta and IVC are unremarkable. There is no lymphadenopathy identified. Fluid-filled distended stomach. Colonic diverticulosis. There is mild to moderate colonic fecal retention. Normal appendix. Air and fluid-filled nondilated loops of small bowel are noted within the central abdomen measuring up to approximately 2.9 cm. No discrete transition point. Unremarkable soft tissues. Degenerative changes of the SI joints. No acute fracture. IMPRESSION: 1. Fluid-filled distal esophagus demonstrates circumferential wall thickening s uggestive of esophagitis. 2. Mild right basilar consolidation may indicate aspiration pneumonitis. 3. Fluid-filled distended stomach with several fluid-filled borderline dilated loops of small bowel within the central abdomen. Findings are concerning for a nonspecific gastroenteritis. 4. No high-grade small bowel obstruction or pneumoperitoneum. 5. Normal appendix. 6. Resolution of the previously described mid pelvic inflammatory changes. ACT 112: Negative or not required by law. The above report was generated using voice recognition software. It may contain grammatical, syntax or spelling errors. Electronically signed by: Ezra Madden M.D. 09/27/2022 8:21 AM Chest CTA 09/26/22 23:09 CHEST CTA for PULMONARY ARTERIES CT DOSE: HISTORY: Vomiting. Mid chest pain. TECHNIQUE: Multiaxial CT images of the chest were performed following the intravenous administration of contrast to evaluate the pulmonary arteries. Maximal intensity projection images were also obtained. A dose lowering technique was utilized adhering to the principles of ALARA. COMPARISON STUDY: Chest CTA 03/08/2022. FINDINGS: The abdominal structures will be reported on the same day abdomen and pelvis CT. The stomach is partially visualized and appears distended with fluid. Moderate circumferential thickening in the mid to distal esophagus with a small amount of fluid within the distal esophagus. The thyroid gland enhances normally. No mediastinal or hilar lymphadenopathy. The heart is normal in size. No pleural or pericardial effusions. No fractures within the visualized osseous structures. The central airways are patent. No pneumothorax. Mild respiratory motion artifact. Patchy groundglass airspace opacities within the bilateral lower lobes most pronounced on the right. This is consistent with a pneumonia and could be due to prior aspiration. No evidence for an aortic dissection. No filling defects within the pulmonary arteries to suggest a pulmonary embolus. IMPRESSION: 1. No evidence for a pulmonary embolus. 2. Bilateral lower lobe airspace opacities consistent with a pneumonia. This could be due to prior aspiration. 3. Moderate circumferential thickening of the mid to distal esophagus consistent with a nonspecific esophagitis. Follow-up endoscopy recommended for further evaluation. 4. Fluid-filled and distended stomach. This is better appreciated on the same day abdomen and pelvis CT. ACT 112: Positive. There are findings on this exam that require communication between the performing entity and the patient following Patient Test Result Information Act ([place] Act 112) guidelines. Electronically signed by: Pete Lawson M.D. 09/27/2022 7:58 AM KUB X-Ray 09/27/22 12:02 KUB CLINICAL HISTORY: NGT placement COMPARISON STUDY: CT of the abdomen and pelvis performed earlier today. FINDINGS: Cholecystectomy clips are incidentally noted. Tip of nasogastric tube projects over the proximal body of the stomach. Sidehole projects over the GE junction. The tube could be advanced an additional 3 cm. IMPRESSION: Tip of nasogastric tube projects over the proximal body of the stomach. Sidehole projects over the GE junction. The tube could be advanced an additional 3 cm. ACT 112: Negative or not required by law. Electronically signed by: Lukas Duke M.D. 09/27/2022 1:14 PM KUB X-Ray 09/28/22 06:10 KUB CLINICAL HISTORY: Enteric tube placement. FINDINGS: An AP portable view of the lower chest and upper abdomen is compared to abdominal radiograph and CT dated 09/27/2022. The enteric tube has been advanced. The tip now projects over the mid to distal stomach. Cholecystectomy clips are seen in the right upper quadrant. There is no radiographic evidence of bowel obstruction. No evidence of intraperitoneal free air seen below the diaphragm. There are no abnormal abdominal calcifications. The bony structures appear intact. Mild interspace consolidation is seen at the lung bases. IMPRESSION: 1. An enteric tube has been advanced as above. 2. No bowel obstruction. 3. Airspace consolidation is suggested at the lung bases. Electronically signed by: Kendall Dee M.D. 09/28/2022 7:10 AM PG Care Time/CCT Total # of Minutes Spent Total Time Spent with Patient: Total time spent is greater than 50% in coordination of care (as documented) at patient's floor/unit and/or counseling patient: Coding Level of Care Code 37803 Subseq Hosp Care Lvl 3 Diagnoses Coffee ground emesis K92.0 Partial small bowel obstruction K56.600 Abdominal pain R10.9 Diabetes mellitus E11.9 BRIDGETTE (acute kidney injury) N17.9 Elevated troponin R77.8 BPH (benign prostatic hyperplasia) N40.0 Chronic back pain M54.9; G89.29 Pulmonary embolism I26.99 Lung consolidation J18.1 PTSD (post-traumatic stress disorder) F43.10 Time Spent (min) 15
[2022-09-28] MEDS: PANTOprazole 40 MG in SYRINGE 0 ML IV SCH ×2 (08:46→20:09)
[2022-09-28] MEDS: DULoxetine HCL 60 MG CAP PO SCH (08:46)
[2022-09-28] MEDS: DULoxetine HCL 20 MG CAP PO SCH (08:47)
[2022-09-28] MEDS: METHYLPHENIDATE HCL 10 MG TABLET PO SCH ×2 (08:58→13:57)
[2022-09-28] MEDS: clonazePAM 1 MG TAB PO SCH ×2 (08:58→20:09)
[2022-09-28] MEDS: LANTUS PER UNIT CHARGE SQ SCH (09:03)
--- NOTE | 2022-09-28 09:41 | Gastroenterology Progress Note ---
Date of Service September 28, 2022 Assessment & Plan (1) Coffee ground emesis: Plan: NG drainage without blood now. H/H dropped but likely some effect of rehydration. No plans to do procedure at this time Admission and Anticipated Discharge Date Admission Date: September 27, 2022 Subjective Feeling about the same as yesterday. NG in place draining bile without blood. H/H have dropped. Passing gas but no bowel movement. Review of Systems Review of Systems: All systems reviewed & are unremarkable except as noted in HPI & below Physical Exam Constitutional: WD/WN, vitals as above Gastrointestinal (Abdomen): Percussion/Palpation: + abdomen tender and abdomen soft Results & Data ([facility]) Vital Signs (Past 12 Hours) Vital Signs Temp Pulse Pulse Resp BP Pulse Ox Pulse Ox 09/28/22 07:37 36.5 C 88 19 173/109 H 95 09/28/22 07:34 87 09/28/22 04:45 95 09/28/22 04:39 36.7 C 78 20 153/95 H 95 09/28/22 03:22 36.6 C 86 18 142/75 H 93 09/27/22 23:15 36.8 C 103 H 20 168/93 H 94 09/27/22 23:28 93 H O2 Del Method O2 Del Method 09/28/22 07:37 Room Air 09/28/22 07:34 09/28/22 04:45 Room Air 09/28/22 04:39 Room Air 09/28/22 03:22 Room Air 09/27/22 23:15 Room Air 09/27/22 23:28
[2022-09-28] MEDS ORDERED: bisacodyL 10 MG SUPP PR ONE (10:09)
--- NOTE | 2022-09-28 10:13 | Surgery Progress Note ---
Date of Service September 28, 2022 Assessment & Plan (1) Partial small bowel obstruction: Plan: His KUB from this morning was reviewed, no dilated small bowel seen He is passing flatus however just had his NG placed yesterday evening, will continue this for today Unsure if this is a true bowel obstruction versus constipation versus an enteritis No plans for surgical intervention Will give a Dulcolax suppository x1 Admission and Anticipated Discharge Date Admission Date: September 27, 2022 Subjective Patient seen and examined. Continues to pass flatus. NG tube in place draining light bilious fluid. Still has some abdominal pain. Vital signs stable. Review of Systems Constitutional: no fever and no chills Physical Exam Constitutional: WD/WN, vitals as above Gastrointestinal (Abdomen): Inspection/Auscultation: abdomen normal to inspection; abdomen not distended Percussion/Palpation: + abdomen tender (Mild diffuse) and abdomen soft; no guarding, abdomen not rigid and no hernia Results & Data ([facility]) Vital Signs (Past 12 Hours) Vital Signs Temp Pulse Pulse Resp BP Pulse Ox Pulse Ox 09/28/22 07:37 36.5 C 88 19 173/109 H 95 09/28/22 07:34 87 09/28/22 04:45 95 09/28/22 04:39 36.7 C 78 20 153/95 H 95 09/28/22 03:22 36.6 C 86 18 142/75 H 93 09/27/22 23:15 36.8 C 103 H 20 168/93 H 94 09/27/22 23:28 93 H O2 Del Method O2 Del Method 09/28/22 07:37 Room Air 09/28/22 07:34 09/28/22 04:45 Room Air 09/28/22 04:39 Room Air 09/28/22 03:22 Room Air 09/27/22 23:15 Room Air 09/27/22 23:28 PG Care Time/CCT Total # of Minutes Spent Total Time Spent with Patient: Total time spent is greater than 50% in coordination of care (as documented) at patient's floor/unit and/or counseling patient: Coding Level of Care Code 23551 Subseq Hosp Care Lvl 1 Diagnoses Partial small bowel obstruction K56.600
[2022-09-28] MEDS: CARBOHYDRATES FOR HYPOGLYCEMIA PO PRN (11:05)
[2022-09-28] MEDS: cefTRIAXone SODIUM 2,000 MG in DEXTROSE 5% 50 ML IV SCH (11:06)
[2022-09-28] MEDS: AMPICILLIN/SULBACTAM SOD 1,500 MG in 0.9 % SODIUM CHLORIDE 100 ML IV SCH ×2 (13:52→20:59)
[2022-09-28] MEDS: ONDANSETRON INJ 2 MG/ML 2 ML VIAL IV PRN (15:28)
[2022-09-28] MEDS ORDERED: Ativan PO Alcohol Withdrawal--Active Protocol PO PRN (16:09)
[2022-09-28] MEDS ORDERED: LORazepam 1 MG TAB PO PRN ×4 (16:09→16:31)
[2022-09-28] MEDS: FOLIC ACID 1 MG TAB PO SCH (17:02)
[2022-09-28] MEDS: THIAMINE HCL 100 MG TAB PO SCH (17:22)
[2022-09-28] MEDS: TAMSULOSIN HCL 0.4 MG CAP PO SCH (20:09)
[2022-09-28] MEDS ORDERED: diphenhydrAMINE 50 MG/ML VIAL IV STA (21:36)
[2022-09-29] MEDS: DEXTROSE 50% 50 ML SYRINGE IV PRN ×3 (00:07→12:07)
[2022-09-29] MEDS: INSULIN ASPART PER UNIT SC SCH ×5 (00:45→20:59)
[2022-09-29] MEDS: AMPICILLIN/SULBACTAM SOD 1,500 MG in 0.9 % SODIUM CHLORIDE 100 ML IV SCH ×4 (02:15→20:37)
[2022-09-29] MEDS: LACTATED RINGER'S 1,000 ML IV SCH ×3 (07:51→23:57)
--- NOTE | 2022-09-29 08:15 | Hospitalist Progress Note ---
Date of Service September 29, 2022 Assessment & Plan (1) Coffee ground emesis: Plan: Coffee-ground emesis Patient reports several episodes of coffee-ground emesis with diffuse abdominal pain, worse at the epigastrium/lower chest Patient does have history of GERD/esophagitis Hemoglobin on admission 15.1 CT A/P showing mild fluid distention of small bowel loops without focal point of obstruction, no acute pathology in the abdomen or pelvis - CT chest mild circumferential thickening of distal esophagus follow up endoscopy is recommended Protonix 40 mg IV twice daily Consulted gastroenterology for consideration of EGD No evidence of any gi bleeding (bilious drainage in NGT) (coral BM) (2) Partial small bowel obstruction: Plan: - Surgery following - Encourage up and OOB - NGT pulled today and started on clear liquids per surgery (3) Abdominal pain: Plan: Epigastric abdominal pain - Continue to monitor abdominal exams - GI and Surgery following - Continue PPI BID - Zofran as needed - NGT removed and started on clear liquids - Added carafate q ac and q hs Chronic constipation - Dulcolax suppository today Continue as needed MiraLAX and Senokot (4) Diabetes mellitus: Plan: DM 2 Lantus 50 units twice daily -- home dosing Placed on Hold while NPO Sliding scale for coverage (5) BRIDGETTE (acute kidney injury): Plan: BRIDGETTE on CKD Creatinine 2.19 on admission, baseline creatinine at normal levels Most recently prior to this admission with eGFR in the 80s putting him at stage II CKD Renally dose medications Avoid nephrotoxins LR at 125 cc/h Monitor creatinine (hx of hepatorenal syndrome secondary to prework out supplementation use in the past and had dialysis x 1 in January 2022 per patient) (6) Elevated troponin: Plan: EKG showing sinus tachycardia without obvious ST segment/T wave abnormalities Troponin on admission 21.2, now 18.2 which seems consistent with most recent troponins in July could certainly be demand in the setting of pain Continue to trend - Echo EKG with chest pain as needed (7) BPH (benign prostatic hyperplasia): Plan: BPH Continue home tamsulosin (8) Chronic back pain: Plan: Chronic back pain Continue home baclofen, duloxetine (9) Pulmonary embolism: Plan: History of PE 4 total PEs, with the last one in 2016 On Eliquis chronically Held Eliquis as above for concern of hematemesis - Restarted Eliquis today - Will order a STAT D-dimer (patient has pain with swallowing pain in his back and states felt this way with his previous PEs) (10) Lung consolidation: Plan: Lung consolidation/Possible aspiration CTA chest showing consolidation at the right lung base per stat read Patient does not have any obvious respiratory symptoms, no hypoxia at this time - Patient did state he vomited Friday while laying down and had some coughing with vomiting Leukocytosis of 11.5 with neutrophilic predominance - improving Received cefepime and azithromycin in the ED Changed to Unasyn IV q 6 hours Can consider discontinuation of antibiotics if he continues without symptoms Consider follow-up imaging (11) PTSD (post-traumatic stress disorder): Plan: Anxiety/PTSD Continue home clonazepam twice daily (12) Hypertension: Plan: - Added Lisinopril 10 mg today Plan DVT prophylaxis - Restarted Eliquis today Continue to monitor labs and exam PPI IV BID Added Carafate q ac nd hs Admission and Anticipated Discharge Date Admission Date: September 27, 2022 Review of Systems Constitutional: + chills, + fatigue and + anorexia; no fever Ear, Nose, Mouth, Throat: + sore throat; no ear pain, no nasal congestion and no facial pain Respiratory: no chest congestion and no dyspnea cough on Friday after vomiting hurts to take a deep breath Cardiovascular: no dyspnea, no orthopnea and no lightheadedness Additional Comments: had some chest pain with vomiting now states he has chest pain with swallowing and pain in his back Gastrointestinal: + abdominal pain, + nausea, + vomiting and + pain with swallowing; no constipation, no diarrhea/loose stools and no blood in stools possible hematemesis on admission no evidence of any active GI bleeding Bilious drainage with NGT Genitourinary: no dysuria, no difficulty urinating, no urinary frequency, no nocturia or no flank pain Integumentary: no rash, no lesions, no wounds and no pruritus Neurologic: no gait abnormality, no unsteadiness and no falls Psychiatric: + change in appetite; no hopelessness, no anxiety, no panic attacks, no confusion and no hallucinations Physical Exam Constitutional: WD/WN, vitals as above Eyes: PERRL, conjunctivae normal, anicteric sclerae ENMT: external ear and nose normal, oropharynx normal Neck: trachea midline, no thyromegaly Respiratory: normal respiratory effort; no respiratory distress, no labored breathing and no cough Auscultation: lungs clear to auscultation bilaterally and + crackles Cardiovascular: RRR, no murmur, no edema Gastrointestinal (Abdomen): Inspection/Auscultation: abdomen normal to inspection, normal bowel sounds and + abdominal surgical scar; abdomen not distended Percussion/Palpation: + abdomen tender and abdomen soft; no hepatosplenomegaly and no abdominal mass Skin: no rashes, warm and dry Psychiatric: A+Ox3, euthymic affect Results & Data Results & Data ([facility]) Vital Signs (Past 12 Hours) Vital Signs Temp Pulse Pulse Resp BP BP Pulse Ox 09/29/22 07:54 36.9 C 75 19 133/81 94 09/29/22 03:51 36.8 C 77 18 124/80 92 09/28/22 22:15 92 H 09/28/22 22:14 36.9 C 94 H 20 142/94 H 93 O2 Del Method 09/29/22 07:54 Room Air 09/29/22 03:51 Room Air 09/28/22 22:15 09/28/22 22:14 Room Air Laboratory Results Abnormal lab results 09/28/22 09/28/22 09/28/22 Range/Units 15:15 18:02 18:30 D-Dimer (0-500) ug/L FEU POC Glucose 52 L* 103 H (70-99) mg/dl Troponin I High Sens 33.0 H (0-20) pg/ml 09/28/22 09/29/22 09/29/22 Range/Units 23:58 00:00 05:49 D-Dimer (0-500) ug/L FEU POC Glucose 57 L* 58 L* (70-99) mg/dl Troponin I High Sens 31.4 H (0-20) pg/ml 09/29/22 09/29/22 09/29/22 Range/Units 05:53 11:41 11:42 D-Dimer (0-500) ug/L FEU POC Glucose 64 L* 56 L* 64 L* (70-99) mg/dl Troponin I High Sens (0-20) pg/ml 09/29/22 09/29/22 Range/Units 12:06 12:37 D-Dimer 1420 H* (0-500) ug/L FEU POC Glucose 61 L* (70-99) mg/dl Troponin I High Sens (0-20) pg/ml Diagnostic Findings KUB X-Ray 09/29/22 10:03 XR KUB/Abdomen 1 view CLINICAL HISTORY: eval sbo TECHNIQUE: 1 view of the abdomen was obtained. Comparison: Comparison is made to abdomen radiograph 09/28/2022 FINDINGS: Enteric tube is in satisfactory position. Cholecystomy clips are seen. The osseous structures are grossly unremarkable. The bowel gas pattern is nonobstructive. A moderate amount of stool is noted within the large bowel. IMPRESSION: Nonobstructive bowel gas pattern. ACT 112: Negative or not required by law. Electronically signed by: Marcus Camarena M.D. 09/29/2022 10:55 AM PG Care Time/CCT Total # of Minutes Spent Total Time Spent with Patient: Total time spent is greater than 50% in coordination of care (as documented) at patient's floor/unit and/or counseling patient: Coding Level of Care Code 79790 Subseq Hosp Care Lvl 3 Diagnoses Coffee ground emesis K92.0 Partial small bowel obstruction K56.600 Abdominal pain R10.9 Diabetes mellitus E11.9 BRIDGETTE (acute kidney injury) N17.9 Elevated troponin R77.8 BPH (benign prostatic hyperplasia) N40.0 Chronic back pain M54.9; G89.29 Pulmonary embolism I26.99 Lung consolidation J18.1 PTSD (post-traumatic stress disorder) F43.10 Hypertension I10 Time Spent (min) 20
--- NOTE | 2022-09-29 08:51 | Gastroenterology Progress Note ---
Date of Service September 29, 2022 Assessment & Plan (1) Coffee ground emesis: Plan: Stable from GI stand point. Could probably clamp and/or pull NG today. Will let surgery and hospitalist team decide about that Admission and Anticipated Discharge Date Admission Date: September 27, 2022 Subjective Feeling better. Main complaint is pain from NG. Had small BM yesterday. No bleeding. NG output bilious Physical Exam Constitutional: WD/WN, vitals as above Gastrointestinal (Abdomen): normal bowel sounds, soft, nontender, no hepatosplenomegaly Results & Data ([facility]) Vital Signs (Past 12 Hours) Vital Signs Temp Pulse Pulse Resp BP BP Pulse Ox 09/29/22 07:54 36.9 C 75 19 133/81 94 09/29/22 03:51 36.8 C 77 18 124/80 92 09/28/22 22:15 92 H 09/28/22 22:14 36.9 C 94 H 20 142/94 H 93 O2 Del Method 09/29/22 07:54 Room Air 09/29/22 03:51 Room Air 09/28/22 22:15 09/28/22 22:14 Room Air
[2022-09-29] MEDS: clonazePAM 1 MG TAB PO SCH ×2 (08:54→20:42)
[2022-09-29] MEDS: PANTOprazole 40 MG in SYRINGE 0 ML IV SCH ×2 (08:54→21:13)
[2022-09-29] MEDS: METHYLPHENIDATE HCL 10 MG TABLET PO SCH ×2 (08:54→14:41)
[2022-09-29] MEDS: THIAMINE HCL 100 MG TAB PO SCH (08:55)
[2022-09-29] MEDS: FOLIC ACID 1 MG TAB PO SCH (08:55)
[2022-09-29] MEDS: DULoxetine HCL 60 MG CAP PO SCH (08:55)
[2022-09-29] MEDS: DULoxetine HCL 20 MG CAP PO SCH (08:55)
--- NOTE | 2022-09-29 10:18 | XCELERA ---
[id number]
--- NOTE | 2022-09-29 10:30 | Surgery Progress Note ---
Date of Service September 29, 2022 Assessment & Plan (1) Partial small bowel obstruction: Plan: He has little NG tube output at this point We will follow-up KUB and possibly remove NG tube later today and start clear liquids Will follow Admission and Anticipated Discharge Date Admission Date: September 27, 2022 Subjective Patient seen and examined. Still with some abdominal pain. Had a bowel movement yesterday with the Dulcolax suppository. No nausea or vomiting. Vital signs stable. Only 200 mL out of NG tube over 12 hours. Review of Systems Constitutional: no fever and no chills Physical Exam Constitutional: WD/WN, vitals as above Gastrointestinal (Abdomen): Inspection/Auscultation: abdomen normal to inspection; abdomen not distended Percussion/Palpation: + abdomen tender (Mild diffuse) and abdomen soft; no guarding and abdomen not rigid Results & Data ([facility]) Vital Signs (Past 12 Hours) Vital Signs Temp Pulse Pulse Resp BP BP Pulse Ox 09/29/22 09:36 74 09/29/22 07:54 36.9 C 75 19 133/81 94 09/29/22 03:51 36.8 C 77 18 124/80 92 O2 Del Method 09/29/22 09:36 09/29/22 07:54 Room Air 09/29/22 03:51 Room Air PG Care Time/CCT Total # of Minutes Spent Total Time Spent with Patient: Total time spent is greater than 50% in coordination of care (as documented) at patient's floor/unit and/or counseling patient: Coding Level of Care Code 16585 Subseq Hosp Care Lvl 1 Diagnoses Partial small bowel obstruction K56.600
[2022-09-29] MEDS: HYDROmorphone INJ 0.5 MG/0.5 ML SYR IV PRN ×3 (10:56→19:23)
--- NOTE | 2022-09-29 10:58 | XRay Report ---
XR KUB/Abdomen 1 view CLINICAL HISTORY: eval sbo TECHNIQUE: 1 view of the abdomen was obtained. Comparison: Comparison is made to abdomen radiograph 09/28/2022 FINDINGS: Enteric tube is in satisfactory position. Cholecystomy clips are seen. The osseous structures are darshan ssly unremarkable. The bowel gas pattern is nonobstructive. A moderate amount of stool is noted withi n the large bowel. IMPRESSION: Nonobstructive bowel gas pattern. ACT 112: Negative or not required by law. Electronically signed by: Marcus Camarena M.D. 09/29/2022 10:55 AM
[2022-09-29] MEDS ORDERED: bisacodyL 10 MG SUPP PR STA (11:10)
[2022-09-29] MEDS: CARBOHYDRATES FOR HYPOGLYCEMIA PO PRN (11:43)
[2022-09-29 13:24] LABS: D Dimer 1420 ug/L FEU (0-500)
[2022-09-29] MEDS: lisinopril 10 MG TAB PO SCH (13:38)
[2022-09-29] MEDS ORDERED: FLUARIX QUADRIVALENT 0.5 ML SYR IM ONE (13:41)
[2022-09-29] MEDS ORDERED: Nursing to Pharmacy Communication SCH (14:00)
[2022-09-29] MEDS: APIXABAN 5 MG TABLET PO SCH ×2 (14:41→20:43)
[2022-09-29] MEDS ORDERED: traMADol HCL 50 MG TABLET PO PRN (15:29)
[2022-09-29] MEDS: SUCRALFATE 1 GM/10 ML UDC PO SCH ×2 (16:45→20:42)
[2022-09-29] MEDS ORDERED: oxyCODONE HCL IR 5 MG TAB (IMMEDIATE RELEASE) PO STA (20:39)
[2022-09-29] MEDS: TAMSULOSIN HCL 0.4 MG CAP PO SCH (20:44)
[2022-09-29] MEDS ORDERED: APIXABAN 5 MG TABLET PO SCH (21:00)
--- NOTE | 2022-09-29 21:52 | Electrocardiogram Report ---
Test Reason : Blood Pressure : / mmHG Vent. Rate : 080 BPM Atrial Rate : 080 BPM P-R Int : 154 ms QRS Dur : 092 ms QT Int : 386 ms P-R-T Axes : 042 009 -52 degrees QTc Int : 445 ms Normal sinus rhythm T wave abnormality, consider inferolateral ischemia Abnormal ECG When compared with ECG of 26-SEP-2022 23:08, Inverted T waves have replaced nonspecific T wave abnormality in Inferior leads Confirmed by Daniel Moncada ([id number]) on 09/29/2022 9:51:56 PM Referred By: REFERRED SELF Confirmed By:Daniel Moncada
[2022-09-30] MEDS: AMPICILLIN/SULBACTAM SOD 1,500 MG in 0.9 % SODIUM CHLORIDE 100 ML IV SCH ×2 (03:19→08:06)
[2022-09-30] MEDS: HYDROmorphone INJ 0.5 MG/0.5 ML SYR IV PRN ×3 (03:27→11:19)
--- NOTE | 2022-09-30 05:21 | Electrocardiogram Report ---
Test Reason : Blood Pressure : / mmHG Vent. Rate : 096 BPM Atrial Rate : 096 BPM P-R Int : 136 ms QRS Dur : 088 ms QT Int : 340 ms P-R-T Axes : 048 -04 -44 degrees QTc Int : 430 ms Normal sinus rhythm Minimal voltage criteria for LVH, may be normal variant T wave abnormality, consider inferolateral ischemia Abnormal ECG When compared with ECG of 28-SEP-2022 04:36, (unconfirmed) No significant change was found Confirmed by Daniel Moncada ([id number]) on 09/30/2022 5:21:01 AM Referred By: REFERRED SELF Confirmed By:Daniel Moncada
[2022-09-30 07:40] LABS: Hematocrit (blood only) 35.5 % (40.1-51.0); Hemoglobin 12.2 g/dl (14.0-18.0); Mean Corpuscular Hgb Conc 34.4 g/dL (32.0-36.0); Mean Corpuscular Volume 87.2 fL (80.0-100.0); Mean Platelet Volume 11.3 fL (9.4-12.4); Platelet Count 180 K/uL (130-400); RDW Standard Deviation 38.9 fL (36.4-46.3); Red Blood Count 4.07 M/uL (4.63-6.08); White Blood Count 5.59 K/ul (4.8-10.8)
[2022-09-30] MEDS: LACTATED RINGER'S 1,000 ML IV SCH (07:59)
[2022-09-30] MEDS: lisinopril 10 MG TAB PO SCH (08:06)
[2022-09-30] MEDS: SUCRALFATE 1 GM/10 ML UDC PO SCH ×2 (08:06→12:45)
[2022-09-30] MEDS: PANTOprazole 40 MG in SYRINGE 0 ML IV SCH (08:06)
[2022-09-30] MEDS: FOLIC ACID 1 MG TAB PO SCH (08:07)
[2022-09-30] MEDS: APIXABAN 5 MG TABLET PO SCH (08:07)
[2022-09-30] MEDS: DULoxetine HCL 20 MG CAP PO SCH (08:07)
[2022-09-30] MEDS: THIAMINE HCL 100 MG TAB PO SCH (08:07)
[2022-09-30] MEDS: DULoxetine HCL 60 MG CAP PO SCH (08:07)
[2022-09-30] MEDS: METHYLPHENIDATE HCL 10 MG TABLET PO SCH (08:18)
[2022-09-30] MEDS: INSULIN ASPART PER UNIT SC SCH ×2 (08:18→12:53)
[2022-09-30] MEDS: clonazePAM 1 MG TAB PO SCH (08:18)
[2022-09-30 08:43] LABS: Albumin Globulin Ratio 1.1 (0.9-2); Albumin Level 3.3 gm/dl (3.4-5.0); BUN Creatinine Ratio 7.4 (10-20); Bilirubin,Total 0.5 mg/dl (0.2-1.0); Creatinine Clr Calc Pharmacy 103.1 ml/min; Est GFR (African American) 80.4 ml/min; Est GFR (Non-African American) 69.4 ml/min; Globulin 2.9 gm/dl (2.5-4.0); Potassium 3.6 mmol/L (3.5-5.1); Total Protein 6.2 gm/dl (6.0-8.3)
--- NOTE | 2022-09-30 09:25 | Gastroenterology Progress Note ---
Date of Service September 30, 2022 Assessment & Plan (1) Odynophagia: Plan: Likely esophagitis - Hold Eliquis - Continue Pantoprazole BID. - Plan for EGD Friday. - Full liquid diet and NPO after midnight on 10/01 for EGD 10/02. Admission and Anticipated Discharge Date Admission Date: September 27, 2022 Supervising Physician Co-Signing Physician Notes I have seen and examined the patient and discussed the management with ROSELIA Acuña. Admitted with chest pressure/abd pain. Pertinent pmhx of pe on eliquis (has continued to take that) and also prior esophagitis (la grade a). PE - slightl epigastric ttp, benign abd otherwise, in no acute distress, further pe as per above Labs/imaging reviewed- hgb , cr normal CT a/p ? ileus, had ng tube in with bilious output over the weekend Would plan for clears/softs Hold eliquis, continue PPI Attempting to arrange for EGD on Fri as an outpatient. Subjective 52 yr old male w Hx of DM 2, BPH, PTSD, chronic back pain, chronic constipation, pulmonary embolisms on Eliquis (currently taking, most recent dose this morning). Presented on 09/26 for abd pain, vomiting coffee grounds, passing dark BMs. 3-4 days of "indigestion" prior to arrival. Continues with a pressure type discomfort in the lower chest "like there is something in there," which is worse after swallowing anything including water, rates the after swallowing pain as an 8 of 10. Has not been having any burning or feeling of reflux. CT on arrival w fluid filled, distended esophagus and stomach but w/o obstruction. Had NG which has been removed. KUB yesterday w/o obstruction or mention of any esophagus or stomach distention. Not hungry, ate a banna for breakfast. EGD was normal in January 2022 (complete prior to ERCP for choledocholithiasis, underwent cholecystectomy at that time as well). EGD in 2016 w grade A esophagitis. Review of Systems Review of Systems: ROS: Gen: Denies weakness, fevers, weight loss Eyes: No eye redness, or pain, no recent vision changes Resp: No SOB, no cough Cardio: No palpitations/irregular beats, no chest pain GI: As per HPI, otherwise (-) : Denies pain on urination Skin: No jaundice, itching or new rashes Physical Exam Constitutional: WD/WN, vitals as above Eyes: PERRL, conjunctivae normal, anicteric sclerae ENMT: external ear and nose normal, oropharynx normal Neck: trachea midline, no thyromegaly Respiratory: normal respiratory effort, lungs clear to auscultation Cardiovascular: RRR, no murmur, no edema Gastrointestinal (Abdomen): Inspection/Auscultation: abdomen normal to inspection and normal bowel sounds; abdomen not distended Percussion/Palpation: + abdomen tender (mild epigastric tenderness, otherwise non tender) and abdomen soft Musculoskeletal: no cyanosis or clubbing, extremities motor strength 5/5 Skin: no rashes, warm and dry Neurologic: PERRL, EOMI, accommodation nl, no face palsy, no dysarthria Psychiatric: A+Ox3, euthymic affect Lymphatic: no cervical or axillary lymphadenopathy Results & Data ([facility]) Vital Signs (Past 12 Hours) Vital Signs Temp Pulse Pulse Resp BP BP Pulse Ox 09/30/22 07:51 36.5 C 54 L 18 124/74 94 09/30/22 07:16 75 09/30/22 04:24 36.7 C 72 18 128/76 94 09/29/22 22:34 84 09/29/22 22:31 37.1 C 88 18 121/79 92 O2 Del Method 09/30/22 07:51 Room Air 09/30/22 07:16 09/30/22 04:24 Room Air 09/29/22 22:34 09/29/22 22:31 Room Air Laboratory Results 5.5, 12.2, Hb 12.2, Hct 35.5, Plts 180, Na 139, K 3.6, Cl103, Cow 35, BUN 9, Cr 1.4, glucose 116. Diagnostic Findings KUB yesterday: Nonobstructive bowel gas pattern. CTAP on arrival: 1. Fluid-filled distal esophagus demonstrates circumferential wall thickening suggestive of esophagitis. 2. Mild right basilar consolidation may indicate aspiration pneumonitis. 3. Fluid-filled distended stomach with several fluid-filled borderline dilated loops of small bowel within the central abdomen. Findings are concerning for a nonspecific gastroenteritis. 4. No high-grade small bowel obstruction or pneumoperitoneum. 5. Normal appendix. 6. Resolution of the previously described mid pelvic inflammatory changes.
--- NOTE | 2022-09-30 09:57 | Surgery Progress Note ---
Date of Service September 30, 2022 Assessment & Plan (1) Partial small bowel obstruction: Plan: KUB images and results personally viewed by myself, no dilated small bowel present He is been tolerating a diet without nausea and vomiting No plans for any surgical intervention Surgery will sign off at this time, please call with any questions or concerns Admission and Anticipated Discharge Date Admission Date: September 27, 2022 Subjective Patient seen and examined. Tolerated clears yesterday and had a regular diet for this morning. No nausea or vomiting. Continues to pass flatus. has had a few bowel movements. Review of Systems Constitutional: no fever and no chills Physical Exam Constitutional: WD/WN, vitals as above Gastrointestinal (Abdomen): Inspection/Auscultation: abdomen normal to inspection; abdomen not distended Percussion/Palpation: abdomen soft; abdomen nontender, no guarding and abdomen not rigid Results & Data ([facility]) Vital Signs (Past 12 Hours) Vital Signs Temp Pulse Pulse Resp BP BP Pulse Ox 09/30/22 07:51 36.5 C 54 L 18 124/74 94 09/30/22 07:16 75 09/30/22 04:24 36.7 C 72 18 128/76 94 09/29/22 22:34 84 09/29/22 22:31 37.1 C 88 18 121/79 92 O2 Del Method 09/30/22 07:51 Room Air 09/30/22 07:16 09/30/22 04:24 Room Air 09/29/22 22:34 09/29/22 22:31 Room Air PG Care Time/CCT Total # of Minutes Spent Total Time Spent with Patient: Total time spent is greater than 50% in coordination of care (as documented) at patient's floor/unit and/or counseling patient: Coding Level of Care Code 89017 Subseq Hosp Care Lvl 1 Diagnoses Partial small bowel obstruction K56.600
--- NOTE | 2022-09-30 12:54 | Discharge Summary ---
Date of Service September 30, 2022 Admission HPI Per Admitting Provider Jordan Jr Rhett. is a 52-year-old male with past medical history of DM 2, BPH, PTSD, chronic back pain, chronic constipation, pulmonary embolisms on Eliquis who presented due to abdominal pain and dark, tarry vomiting. Patient states that he developed abdominal pain and had been vomiting since yesterday. He states he has vomited probably around 7 times and it has been dark, tarry. He described it as seeming like coffee grounds. Does feel that the pain is in his chest and epigastrium, he says it felt initially like indigestion and he expected this would improve, but it ended up worsening and he developed vomiting. He denies dark or bloody stools at this time. No shortness of breath, palpitations, weakness, numbness, tingling, headaches, dizziness, fever, chills, coughing. Of note, patient has history of alcohol abuse per chart denies alcohol use at this time. States he had EGD in 2014, which found ulcers but cause of these reportedly unknown. In ED, patient had lab work significant for mild troponin elevation of 21.2, creatinine elevated to 2.18, hemoglobin normal at 15.1. CT A/P showing mild fluid distention of small bowel loops without focal point of obstruction, no acute pathology in the abdomen or pelvis. CTA chest showing consolidation at the right lung base per stat rad. Admission Exam Per Admitting Provider GENERAL: A&Ox3. NAD. HEENT: PERRL, EOMI. Moist mucous membranes. NECK: No JVD. No lymphadenopathy. CHEST/LUNGS: CTAB A/P. No crackles, wheezes, rales, rhonchi. HEART: Tachycardic, regular rhythm. No m/g/r. No carotid bruits. ABDOMEN: Diffusely tender to palpation, more notably in the epigastrium, ND, soft. BS+ x4 EXTREMITIES: No cyanosis, no clubbing, no edema SKIN: Warm and dry. No rashes or lesions. PSYCHIATRIC: Euthymic affect, no SI, no pressured speech, no hallucinations NEUROLOGIC: No FND. Principal Diagnosis Partial small bowel obstruction coffee ground emesis aspiration pneumonia esophagitis on CT imaging Discharge Exam Constitutional WD/WN, vitals as above NAD Eyes PERRL, conjunctivae normal, anicteric sclerae ENMT external ear and nose normal, oropharynx normal Neck trachea midline, no thyromegaly Respiratory normal respiratory effort; no respiratory distress, no labored breathing and no cough Auscultation: lungs clear to auscultation bilaterally and + crackles Cardiovascular RRR, no murmur, no edema Gastrointestinal (Abdomen) Inspection/Auscultation: abdomen normal to inspection, normal bowel sounds and + abdominal surgical scar; abdomen not distended Percussion/Palpation: abdomen soft; abdomen nontender, no hepatosplenomegaly and no abdominal mass Skin no rashes, warm and dry Psychiatric A+Ox3, euthymic affect Discharge Data Allergies Allergy/AdvReac Type Severity Reaction Status Date / Time iodine Allergy Severe THROAT Verified 09/26/22 23:38 SWELLING shellfish derived Allergy Severe THROAT Verified 09/26/22 23:38 SWELLING acetaminophen Allergy Intermediate Chest Pain Verified 09/26/22 23:38 & SOB Iodinated Contrast Media Allergy Intermediate swelling Verified 09/26/22 23:38 hydrocodone AdvReac Intermediate GI ISSUES Verified 09/26/22 23:38 Plasma, Human Allergy Severe ANAPHYLAXIS Uncoded 09/26/22 23:38 Consultations 09/27/22 01:06 ED Decision to Admit Stat 09/27/22 02:11 Consult Gastroenterology Routine - Recommend to hold Eliquis - Continue BID PPI and Carfate until EGD - Plan to do an out patient EGD 10/02/22 09/27/22 09:54 Consult General Surgery Routine - [place] was possibly a partial SBO vs Constipation - Had NGT to LIS and dulcolax suppository to aid in a BM - Repeat x ray imaging revealed no obstruction and patient was eating and having BMs Procedures Performed Operation Date: 10/01/22 16:30 <No data on this case meets the specified criteria> Ordered Studies 09/26/22 23:09 CT Abd and Pelvis [CT abd pelvis IV con only] Urgent CT angio chest PE protocol Urgent Diabetes Follow up Patient follows with Dr Azevedo HgbA1C 10.5 ( was 13.2 in July) Diabetes Follow-up Needed for HgbA1c >9% Hospital Course (1) Coffee ground emesis: Coffee-ground emesis Patient reported several episodes of coffee-ground emesis with diffuse abdominal pain, worse at the epigastrium/lower chest Patient does have history of GERD/esophagitis Hemoglobin on admission 15.1 and remained stable had a mild drop but no evidence of any active GI bleeding. Suspected drop initially was dilautional. CT A/P showing mild fluid distention of small bowel loops without focal point of obstruction, no acute pathology in the abdomen or pelvis - CT chest mild circumferential thickening of distal esophagus follow up endoscopy is recommended Protonix 40 mg IV twice daily Consulted gastroenterology - Placed NGT to LIS - Had Dulcolax suppository No evidence of any gi bleeding through out hospital stay (bilious drainage in NGT) (coral BM) Eliquis was initally held and then restarted (2) Partial small bowel obstruction: - Surgery following - Encourage up and OOB - NGT pulled 09/28 and started on clear liquids per surgery tolerated and diet was advanced to carb consistent and tolerated (3) Abdominal pain: Epigastric abdominal pain - GI and Surgery followed - Continue PPI BID - Zofran as needed - Added carafate q ac and q hs Chronic constipation - Dulcolax suppository today Continue as needed MiraLAX and Senokot (4) Diabetes mellitus: DM 2 Lantus 50 units twice daily -home dosing Placed on Hold while patient was NPO Sliding scale for coverage while in patient (5) BRIDGETTE (acute kidney injury): BRIDGETTE on CKD Creatinine 2.19 on admission, baseline creatinine at normal levels Most recently prior to this admission with eGFR in the 80s putting him at stage II CKD Renally dose medications Avoided nephrotoxins (hx of hepatorenal syndrome secondary to pre-work out supplementation use in the past and had dialysis x 1 in January 2022 per patient) (6) Elevated troponin: EKG showing sinus tachycardia without obvious ST segment/T wave abnormalities Troponin on admission 21.2, now 18.2 which seems consistent with most recent troponins in July could certainly be demand in the setting of pain Continued to trend - Echo 09/27/22 EF 50-55% ad no change when compared to 01/2022 EKG with chest pain as needed (7) BPH (benign prostatic hyperplasia): BPH Continue home tamsulosin (8) Chronic back pain: Chronic back pain Continue home baclofen, duloxetine (9) Pulmonary embolism: History of PE 4 total PEs, with the last one in 2016 On Eliquis chronically Held Eliquis as above for concern of hematemesis - CTA on admission with no PE - Patient requested a D dimer test and was elevated - Restarted Eliquis 09/29 and will hold again for EGD as outpatient on Friday10/02/22 (10) Lung consolidation: Lung consolidation/Possible aspiration CTA chest showing consolidation at the right lung base per stat read Patient does not have any obvious respiratory symptoms, no hypoxia at this time - Patient did state he vomited Friday while laying down and had some coughing with vomiting Leukocytosis of 11.5 with neutrophilic predominance - improving Received cefepime and azithromycin in the ED Changed to Unasyn IV q 6 hours Can consider discontinuation of antibiotics if he continues without symptoms Consider follow-up imaging (11) PTSD (post-traumatic stress disorder): Anxiety/PTSD Continue home clonazepam twice daily (12) Hypertension: - Added Lisinopril 10 mg today Plan DVT prophylaxis - Restarted Eliquis today Continue to monitor labs and exam PPI IV BID Added Carafate q ac nd hs Total Time Total Time Spent Total Time Spent (In Minutes): 30 Discharge Plan Discharge Items Patient Disposition: Home - Self-Care Reason For Visit: CHEST PAIN Discharge Diagnosis: small bowel obstruction constipation esophagitis on CT imaging Condition on Discharge: Good Activity: Resume your previous activity Lifting: Gradually increase as tolerated Exercise/Sports: Gradually increase as tolerated Driving/Machine Use: Resume 1 day after discharge Weightbearing: Full weightbearing Non-emergency contact: Primary Care Provider Call non-emergency contact if: you have any medication questions, your symptoms worsen and your pain is not controlled Follow-up/Referrals: Edgardo Azevedo, [Primary Care Provider] - 10/11/22 4:00 pm Diet: Carb Count or DM1 Addtl Attending Provider Instructions: You were admitted after having multiple episodes of bloody vomiting. CT revealed no Pulmonary embolism but incidentally revealed possible esophagitis as well as a possible small bowel obstruction and constipation. You were treated with a nasogastric tube into your nose to your stomach to suction to decompress and empty the GI system from above. Then your were given a dulcolax suppository to aid in a BM. You had a brown formed bowel movement with no evidence of any bleeding. The contents of your stomach seen in the NG tubing was bilious and yellow/green with no active bleeding GI and General Surgeru evaluated you during your stay. You continued to have epigastric discomfort despite the 2 x daily Protonix and had Carafate added before meals and before bed. Your Eliquis was initially held and then restarted and then held again upon discharge due to GI planning on a EGD as an ut patient for 10/02/22. You will need to be Nothing to eat after midnight on Friday for your procedure Friday and you will need a class a regional truck driver to take you home. You should follow up with your family doctor with in 1-2 weeks. Also your BP was consistently elevated and you were started on Lisinopril 10mg one pill in the AM. You should continue this medication. You will need to have a BP recheck and follow up with your family doctor. Pending Studies at Discharge: No Stand-Alone Forms: My [facility] Medications and DC Order Prescriptions: New lisinopril 10 mg Tablet 10 mg PO QAM Qty: 30 0RF sucralfate 100 mg/mL Suspension 1 g PO ACHS 5 Days Qty: 50 0RF Continued duloxetine 20 mg capsule,delayed release(DR/EC) 20 mg PO QAM Qty: 30 11RF Rx Instructions: TOTAL DOSE 80 MG--TAKES WITH 60 MG CAP. tamsulosin 0.4 mg capsule 0.4 mg PO HS Qty: 30 2RF insulin glargine [Lantus Solostar U-100 Insulin] 100 unit/mL (3 mL) insulin pen 50 unit subcut BID Qty: 45 1RF duloxetine 60 mg capsule,delayed release(DR/EC) 60 mg PO QAM Qty: 30 11RF Rx Instructions: TOTAL DOSE 80 MG--TAKES WITH 20 MG CAP. clonazepam 2 mg tablet 2 mg PO BID 25 Days Qty: 50 0RF Rx Instructions: ORDERED 09/20/22 FOR 25 DAYS. methylphenidate HCl 20 mg tablet 20 mg PO BID Qty: 60 0RF Hold Instructions: Pancreatitis baclofen 10 mg tablet 10 mg PO TID PRN (Reason: MUSCLE SPASMS) Qty: 90 1RF naloxone 4 mg/actuation spray,non-aerosol 1 sprays intranasal Q2M PRN (Reason: (Drug) Ingestion) Label Comments: 1 spray intranasal every 2-3 minutes as needed epinephrine 0.3 mg/0.3 mL auto-injector 0.3 mg IM DIRECTED PRN (Reason: Allergic Reaction) Rx Instructions: Insurance only covers [employer] (10210) insulin aspart U-100 [Novolog Flexpen U-100 Insulin] 100 unit/mL (3 mL) insulin pen 0 sliding scale dose SQ AC Rx Instructions: per sliding scale sennosides [Senokot] 8.6 mg tablet 17.2 mg PO DAILY PRN (Reason: Constipation) Rx Instructions: purchase [id number] polyethylene glycol 3350 [Miralax] 17 gram powder in packet 17 g PO DAILY PRN (Reason: Constipation) Rx Instructions: purchase sbel-swv-kzhbgpy Eliquis 5 mg tablet 5 mg PO BID Rx Instructions: TAKE 1 TABLET BY MOUTH TWICE A DAY oxycodone 5 mg tablet 5 mg PO Q6H PRN (Reason: pain) Qty: 6 0RF Discharge Orders: Discharge Order (Routine); Ordered 09/30/22 Ordered By: Margoth Davis/Other Patient Handouts: High Blood Sugar (Hyperglycemia), Hypoglycemia (Low Blood Sugar), Managing Type 2 Diabetes, Diabetes: Meal Planning Admission Data Admit Date/Time: 09/27/22 01:40 Attending Provider: Eddie Meyers Admit Provider: Flavio Malhotra Primary Care Provider: Edgardo Azevedo Other Providers: Niles Ortiz ; Crissy Stanton ; Jordan Andersen ; Gene Lee ; Jeffrey Cormier ; Coleman River Jr ; Marcel Montemayor ; Jaspreet Samayoa ; Erica Card ; Clayton Vela ; Didier Jose Coding Level of Care Code D/C DAY MANAGEMENT >30 MINS Diagnoses Coffee ground emesis K92.0 Partial small bowel obstruction K56.600 Abdominal pain R10.9 Diabetes mellitus E11.9 BRIDGETTE (acute kidney injury) N17.9 Elevated troponin R77.8 BPH (benign prostatic hyperplasia) N40.0 Chronic back pain M54.9; G89.29 Pulmonary embolism I26.99 Lung consolidation J18.1 PTSD (post-traumatic stress disorder) F43.10 Hypertension I10 Time Spent (min) 35
== END 2022-09-30 14:31 | disposition home or self-care (01) | DRG 377 ==
LOC: ED 22:52 → SUATTDRO 09-27 01:40 → 2N 09-27 01:40
DX: K56.600 Partial intestinal obstruction, unspecified as to cause; F43.10 Post-traumatic stress disorder, unspecified; K92.0 Hematemesis; J69.0 Pneumonitis due to inhalation of food and vomit; K59.09 Other constipation; N18.30 Chronic kidney disease, stage 3 unspecified; Z91.041 Radiographic dye allergy status; Z86.711 Personal history of pulmonary embolism; K20.90 Esophagitis, unspecified without bleeding; Z79.01 Long term (current) use of anticoagulants; I12.9 Hypertensive chronic kidney disease with stage 1 through stage 4 chronic kidney disease, or unspecified chronic kidney disease; N17.9 Acute kidney failure, unspecified; E11.22 Type 2 diabetes mellitus with diabetic chronic kidney disease

== ENCOUNTER 2023-01-20 10:07 | Observation (INO) ==
[2023-01-20 10:55] LABS: Basophils # (auto) 0.04 K/uL (0-0.2); Basophils % (auto) 0.5 %; Eosinophils # (auto) 0.03 K/uL (0-0.50); Eosinophils % (auto) 0.4 %; Hematocrit (blood only) 45.3 % (42.0-52.0); Hemoglobin 15.7 g/dl (14.0-18.0); Immature Granulocytes # (auto) 0.02 K/uL (0.01-0.20); Immature Granulocytes % (auto) 0.2 %; Lymphocytes # (auto) 1.57 K/uL (1.2-3.4); Lymphocytes % (auto) 18.5 %; Mean Corpuscular Hemoglobin 29.3 pg (25.0-34.0); Mean Corpuscular Hgb Conc 34.7 g/dL (32.0-36.0); Mean Corpuscular Volume 84.5 fL (80.0-100.0); Mean Platelet Volume 12.4 fL (9.4-12.4); Monocytes # (auto) 0.47 K/uL (0.11-0.59); Monocytes % (auto) 5.5 %; Neutrophils # (auto) 6.35 K/uL (1.40-6.50); Neutrophils % (auto) 74.9 %; Platelet Count 168 K/uL (130-400); RDW Coefficient of Variation 13.1 % (11.5-14.5); RDW Standard Deviation 40.1 fL (36.4-46.3); Red Blood Count 5.36 M/uL (4.70-6.10); White Blood Count 8.48 K/ul (4.8-10.8)
[2023-01-20 11:16] LABS: Albumin Globulin Ratio 1.3 (0.9-2); Albumin Level 4.5 gm/dl (3.4-5.0); BUN Creatinine Ratio 16.9 (10-20); Bilirubin,Total 0.6 mg/dl (0.2-1.0); Calcium 9.9 mg/dl (8.6-10.3); Creatinine Clr Calc Pharmacy 76.3 ml/min; Est GFR (African American) 57.4 ml/min; Est GFR (Non-African American) 49.5 ml/min; Globulin 3.5 gm/dl (2.5-4.0); Potassium 4.9 mmol/L (3.5-5.1); Troponin I High Sensitivity 15.7 pg/ml (0-20)
[2023-01-20 11:17] LABS: Partial Thromboplastin Ratio 0.9; Partial Thromboplastin Time 25.6 Seconds (21.0-31.0); Prothrombin Time 10.7 Seconds (9.0-12.0)
--- NOTE | 2023-01-20 11:20 | XRay Report ---
SINGLE VIEW CHEST CLINICAL HISTORY: Atypical chest pain. FINDINGS: An AP, portable, upright chest radiograph is compared to study dated 09/26/2022 and correla lorne with chest CT dated 09/27/2022. The cardiomediastinal silhouette is top normal for projection. Th e lungs and pleural spaces are clear noting mild bibasilar atelectasis. No pneumothorax is seen. The bony thorax is grossly intact. IMPRESSION: No acute cardiopulmonary abnormality. ACT 112: Negative or not required by law. Electronically signed by: Kendall Dee M.D. 01/20/2023 11:18 AM
[2023-01-20] MEDS ORDERED: FAMOTIDINE 20MG IV PUSH 20 MG/5 ML SYR IV STA (11:37)
[2023-01-20] MEDS ORDERED: SODIUM CHLORIDE 0.9% 1000ML 1,000 ML IV ONE ×2 (11:37→12:59)
[2023-01-20] MEDS ORDERED: ONDANSETRON INJ 2 MG/ML 2 ML VIAL IV STA (11:37)
[2023-01-20] MEDS ORDERED: SUCRALFATE 1 GM/10 ML UDC PO STA (11:37)
--- NOTE | 2023-01-20 12:23 | CT Scan Report ---
CT abd pelvis wo con CLINICAL HISTORY: abd pain nausea TECHNIQUE: Helical axial images of the abdomen and pelvis were obtained. Automated dose lowering tech niques and/or adjustment according to patient size were utilized for this exam. This exam was perfor med without intravenous contrast. CT DOSE: 956.53 mGy.cm COMPARISON: Comparison is made to CT abdomen pelvis 09/17/2022 FINDINGS: Lower chest: Bibasilar atelectasis versus scarring is seen. Liver: Hepatic steatosis is noted. Nodularity of the hepatic contour is seen compatible with cirrhosi s. Gallbladder and biliary tree: Patient is status post cholecystectomy. No intra- or extrahepatic bilia ry ductal dilation. Pancreas: Unremarkable, no focal lesions. Spleen: Unremarkable. Adrenals: Unremarkable. Kidneys and ureters: Unremarkable. Bladder: Unremarkable. Reproductive organs: Prostatomegaly is seen. Bowel: Diverticulosis is seen without evidence of diverticulitis. The appendix is normal. There is a small hiatal hernia. Lymph nodes Retroperitoneal: Unremarkable. Pelvic: Unremarkable. Mesenteric: Unremarkable. Peritoneum: Normal. Vessels: Unremarkable. Abdominal wall: Unremarkable. Bones: Minimal degenerative changes are seen. IMPRESSION: 1. No evidence of bowel obstruction. 2. Nodular contour of the liver compatible with cirrhosis. 3. Diverticulosis without diverticulitis. Normal appendix. ACT 112: Negative or not required by law. Electronically signed by: Marcus Camarena M.D. 01/20/2023 12:22 PM
[2023-01-20] MEDS ORDERED: NovoLIN-R INSULIN PER UNIT CHARGE IV STA (12:59)
[2023-01-20] MEDS ORDERED: DICYCLOMINE HCL 10 MG/ML 2 ML AMP/VIAL IM ONE (13:02)
[2023-01-20] MEDS ORDERED: INSULIN ASPART PER UNIT CHARGE SC STA (14:30)
[2023-01-20] MEDS ORDERED: LABETALOL HCL IV 5 MG/ML 20ML IV STA (14:53)
--- NOTE | 2023-01-20 15:24 | Emergency Department Note ---
Impression & Plan Hypertensive urgency, Atypical chest pain, Uncontrolled diabetes mellitus with hyperglycemia, History of esophagitis, CKD (chronic kidney disease) ED Provider Note NAME: LASHANDA GAMEZ Jr AGE: 52 SEX: M ARRIVES VIA: Walk-In INFORMANT: Patient ED PROVIDER(S): Ayaz Baez MD CHIEF COMPLAINT: Chest pain PLAN: Disposition: Admit MEDICAL DECISION MAKING: The patient is a pleasant 52-year-old gentleman with a past medical history of IDDM2, hypertension, CKD, PE with history of DVT on Eliquis, who presents to the emergency department for evaluation of substernal chest pain/burning that is been ongoing for the past 2 weeks and worsened with eating and has been constant for the past several days. Patient denies any shortness of breath with it though he reports pain when he breathes in. He is on Eliquis and has been taking this as prescribed. He does report that he has not been taking his Lantus as he ran out and was waiting for approval for new medication and so has not taken this for the past several days. He denies any fevers, chills, cough, congestion, diarrhea, constipation or urinary symptoms. On arrival the patient is uncomfortable but no acute distress, afebrile with heart in the 100s and blood pressure 170s/110s in setting of discomfort. He appears clinically dry. He has mild epigastric discomfort without discrete tenderness. EKG without overt acute ischemia. CXR negative for acute cardiopulmonary process. WBC, H/H and platelets within normal limits. Chemistry without metabolic acidosis. Creatinine 1.6 increased from recent however similar to prior values. Sodium 131 however corrects to 148 given glucose of 578 and consistent with patient's clinically dry appearance. LFTs are similar to prior. High- sensitivity troponin 15.7, within normal limits. Lipase within normal limits. Covid-19 RNA, NAAT negative. CT of the abdomen pelvis was performed and was negative for acute abnormality. Initial glucose was 578 improving to 469 following IV fluid hydration alone. He was subsequently given 10 units of regular insulin and additional IV fluid hydration with improvement only to the 400s. Additional 10 units of NovoLog SC was administered. While patient did arrive hypertensive his blood pressure did improve initially after IV fluid hydration, famotidine, Zofran and Carafate. However he did have return of his chest and back pain and blood pressure again elevated in the 200s/100s. Given the patient's chest pain with hypertension additional CT imaging of the chest without contrast was performed and was negative for acute abnormality. He was treated with IV labetalol for hypertensive urgency with subsequent improvement in blood pressure. However given patient's multiple uncontrolled comorbidities including his diabetes and hypertension he did agree with plan for admission for further management. Case was d/w Dr. Neumann [facility] hospitalist who will evaluate the patient for admission. Triage Nursing notes reviewed and agree them. Prior/outside medical records reviewed Vital Signs: reviewed Differential diagnosis: Cardiac ischemia, aortic dissection, pulmonary embolism, pneumothorax, pneumonia, pericarditis, myocarditis, esophageal rupture, GERD, cholecystitis, pancreatitis, musculoskeletal, as well as other pathologies. ER treatment provided: See below. Diagnostics interpreted by me: ECG: Sinus tachycardia, 102 bpm, no ectopy, nonspecific T wave abnormality, no overt ST elevation or depression, QTc 450 QRS 82. Cardiac Monitoring: An order for continuous cardiac monitoring was placed and demonstrated Sinus tachycardia, 102 bpm, no ectopy. Laboratory studies: See below Imaging studies: See below Consultation(s): Case was d/w Dr. Neumann [facility] hospitalist who will evaluate the patient for admission. HPI: The patient is a pleasant 52-year-old gentleman with a past medical history of IDDM2, hypertension, CKD, PE with history of DVT on Eliquis, who presents to the emergency department for evaluation of substernal chest pain/burning that is been ongoing for the past 2 weeks and worsened with eating and has been constant for the past several days. Patient denies any shortness of breath with it thoug h he reports pain when he breathes in. He is on Eliquis and has been taking this as prescribed. He does report that he has not been taking his Lantus as he ran out and was waiting for approval for new medication and so has not taken this for the past several days. He denies any fevers, chills, cough, congestion, diarrhea, constipation or urinary symptoms. ROS: See above HPI for pertinent positives & negatives. A total of 10 systems reviewed and were otherwise negative. VITALS:See Below PHYSICAL EXAMINATION: GENERAL: Awake, alert, uncomfortable-appearing, in no distress, BMI 34.2 HENT: Normocephalic, atraumatic. Oropharynx with dry mucous membranes and otherwise unremarkable. EYES: Normal conjunctiva. Sclera non-icteric. NECK: Supple. No nuchal rigidity. FROM. No JVD. RESPIRATORY: Clear to auscultation. CARDIAC: Regular rate, normal rhythm. Extremities warm and well perfused. Pulses equal. ABDOMEN: Soft, non-distended. Mild epigastric discomfort without discrete tenderness to palpation. No rebound or guarding. No masses. RECTAL: Deferred. MUSCULOSKELETAL: Chest examination reveals no tenderness. The back is symmetrical on inspection without obvious abnormality. There is no CVA tenderness to palpation. No joint edema. LOWER EXTREMITIES: Calves are equal size bilaterally and non-tender. No edema. No discoloration. NEURO: Normal sensorium. No sensory or motor deficits noted. SKIN: No rash or jaundice noted. ED COURSE: Critical Care: I have personally spent greater than 35 minutes of critical care time in the direct management of this patient. This includes bedside care, interpretation of diagnostic studies, and testing, discussion with consultants, patient, and fa inna members, and other required patient management activities. This 35 minutes is in excess of all separately billable procedures. Ayaz Baez MD Past Med/Surg History Medical History Abdominal pain Abnormal EKG 2017 > no further follow up needed per patient Acute hyponatremia Acute kidney injury superimposed on CKD Acute pancreatitis Acute urinary retention Adhesive capsulitis of shoulder BRIDGETTE (acute kidney injury) Anemia Anxiety Anxiety Blood clotting disorder unsure of specific details > Dr. Azevedo PCP Bowel obstruction recent --> inpatient at [facility] 09/26/22 until 09/30/22. no surgery. had NG Tube while inpatient BPH loc w urin obs/LUTS Cholecystitis Choledocholithiasis with obstruction CKD (chronic kidney disease), stage III no specialist > improving per pt report Coffee ground emesis Depression Depression DM type 2 (diabetes mellitus, type 2) DM w/o complication type II, uncontrolled Most recent Hgb A1C 7.1 on 02/26/22 Elevated creatine kinase Elevated LFTs Elevated troponin Elevated troponin Esophagitis Gastrointestinal hemorrhage 2015 > resolved History of alcohol abuse History of bleeding ulcers (~2014) History of liver failure Due to acetaminophen intake per PCP records 01/2022 History of pleural effusion 2013> [facility] History of pulmonary embolus (PE) History of recent hospitalization treated inpatient at [facility] from 09/26/22 - 09/30/22. treated for pneumonia, bowel obstruction, & vomitting blood. Hx of pancreatitis January 2022 --- resolved s/p lap choley Hypertension Hypertensive urgency Hypertriglyceridemia Insomnia Lesion of liver Under observation > Dr. Azevedo Lung consolidation Myalgia and myositis Obesity Odynophagia On anticoagulant therapy Pancreatitis with biliary duct stent done 02/08/22 Partial small bowel obstruction PTSD (post-traumatic stress disorder) Pulmonary embolism 4 total> last one 2015> Eliquis Transaminitis Surgical History History of cardiac cath 2016 due to chest pain> was clear per patient> no stents> [facility] History of colonoscopy History of ERCP History of esophagogastroduodenoscopy (EGD) Hx laparoscopic cholecystectomy (03/05/22) Laparoscopic Cholecystectomy(Not Applicable) - Clayton Vela, DO Hx of surgical procedure colorectal for fissure S/P arthroscopy of shoulder 07/23/19 Dr. Cortes Carranza- Left shoulder arthroscopy with superior labrum anterior to posterior repair; Debridement of glenoid labrum; Synovectomy; Subacromial decompression with acromioplasty; Distal clavicle excision with excision of 10 mm of distal clavicle. S/P laparoscopic cholecystectomy Status post laparoscopic cholecystectomy Family History Mother , s/p brain aneurysm Aneurysm Other Hypertension No family history of adverse response to anesthesia Denies family history of Ovarian cancer Prostate cancer Myocardial infarction Breast cancer Colorectal cancer Social History Smoking Status: Never smoker Second Hand Exposure: No; Hx Alcohol Use: Yes Alcohol type: beer Hx Substance Use: No Preferred Language: Jordanian Communication Ability: Effective Visual Impairment: No Limitations Hearing Ability: Normal Chromium Plater Required: No Beliefs That Will Affect Care: None marital status: Single Current Living Situation: Alone Current Living Situation Comment: with a friend current occupational status: disabled Feels Safe at Home: Yes Safety Concerns: Feels Safe At This Time Childhood Exposure to Second-Hand Smoke: No Dental Care, Regularly: Yes Physical Activity Frequency: Does not Exercise Seatbelt Use: always Sunscreen Use: No Assistive Devices: None Allergies Allergies Allergy/AdvReac Type Severity Reaction Status Date / Time iodine Allergy Severe THROAT Verified 10/22/22 09:10 SWELLING shellfish derived Allergy Severe THROAT Verified 10/22/22 09:10 SWELLING acetaminophen Allergy Intermediate Chest Pain Verified 10/22/22 09:10 & SOB Iodinated Contrast Media Allergy Intermediate swelling Verified 10/22/22 09:10 hydrocodone AdvReac Intermediate GI ISSUES Verified 10/22/22 09:10 Plasma, Human Allergy Severe ANAPHYLAXIS Uncoded 10/22/22 09:10 Home Meds Home Medications Medication Instructions Recorded Confirmed epinephrine 0.3 mg/0.3 mL 0.3 mg IM DIRECTED PRN Allergic 02/02/22 01/20/23 injection, auto-injector Reaction insulin aspart U-100 100 unit/mL 0 sliding scale dose subcut AC 02/26/22 01/20/23 (3 mL) subcutaneous pen (Novolog FlexPen U-100 Insulin aspart) polyethylene glycol 3350 17 gram 17 g PO DAILY PRN Constipation 08/06/22 01/20/23 oral powder packet (Miralax) sennosides 8.6 mg tablet (Senokot) 17.2 mg PO DAILY PRN Constipation 08/06/22 01/20/23 apixaban 5 mg tablet (Eliquis) 5 mg PO BID 01/20/23 01/20/23 baclofen 10 mg tablet 10 mg PO TID PRN Muscle Spasm 01/20/23 01/20/23 insulin aspart U-100 100 unit/mL 12 unit subcut AC 01/20/23 01/20/23 (3 mL) subcutaneous pen insulin glargine 100 unit/mL (3 50 unit subcut BID 01/20/23 01/20/23 mL) subcutaneous pen (Lantus Solostar U-100 Insulin) lisinopril 10 mg tablet 10 mg PO QAM 01/20/23 01/20/23 tamsulosin 0.4 mg capsule 0.4 mg PO HS 01/20/23 01/20/23 Previous Rx's Medication Instructions Recorded duloxetine 60 mg capsule,delayed 60 mg PO QAM #30 caps 09/10/22 release oxycodone 5 mg tablet 5 - 10 mg PO Q6H PRN pain #20 tabs 12/31/22 clonazepam 2 mg tablet 2 mg PO BID 30 days #60 tabs 01/14/23 duloxetine 20 mg capsule,delayed 20 mg PO QAM #30 caps 01/14/23 release methylphenidate HCl 20 mg tablet 20 mg PO BID #60 tabs 01/20/23 Results & Data (ED) Vital Signs Vital Signs - 24 hr 01/20/23 10:12 01/20/23 10:38 01/20/23 11:35 Temperature 36.8 C Temperature Source Temporal Artery Scan Pulse Rate 108 H 106 H Pulse Rate [Apical] 103 H Pulse Rhythm Pulse Rhythm [Apical] Regular Respiratory Rate 20 16 Respiratory Effort / Characteristics Non-Labored Spontaneous Respiratory Depth Normal Respiratory Pattern Regular Blood Pressure 173/110 H Blood Pressure [Right Arm] 162/103 H Blood Pressure Mean 131 Blood Pressure Mean [Right Arm] 122 Blood Pressure Position [Right Arm] Pulse Oximetry 98 95 Oxygen Delivery Method Room Air Room Air Sepsis Recent Fever Within 48 Hours No Sepsis New/Unexplained Change in Mental Status N/A Sepsis Action Taken by Nursing No Action Required 01/20/23 12:55 01/20/23 13:24 01/20/23 14:36 Temperature Temperature Source Pulse Rate 90 Pulse Rate [Apical] 100 H 95 H Pulse Rhythm Regular Pulse Rhythm [Apical] Regular Regular Respiratory Rate 18 17 15 Respiratory Effort / Characteristics Non-Labored Spontaneous Non-Labored Spontaneous Respiratory Depth Normal Normal Respiratory Pattern Regular Blood Pressure Blood Pressure [Right Arm] 148/93 H 221/155 H Blood Pressure Mean Blood Pressure Mean [Right Arm] 111 177 Blood Pressure Position [Right Arm] Semi-fowlers Semi-fowlers Pulse Oximetry 97 97 98 Oxygen Delivery Method Room Air Room Air Room Air Sepsis Recent Fever Within 48 Hours Sepsis New/Unexplained Change in Mental Status Sepsis Action Taken by Nursing 01/20/23 15:19 01/20/23 15:39 Temperature Temperature Source Pulse Rate 93 H Pulse Rate [Apical] 90 Pulse Rhythm Pulse Rhythm [Apical] Regular Respiratory Rate 20 Respiratory Effort / Characteristics Non-Labored Spontaneous Respiratory Depth Normal Respiratory Pattern Regular Blood Pressure Blood Pressure [Right Arm] 128/90 Blood Pressure Mean Blood Pressure Mean [Right Arm] 102 Blood Pressure Position [Right Arm] Pulse Oximetry 95 Oxygen Delivery Method Room Air Sepsis Recent Fever Within 48 Hours Sepsis New/Unexplained Change in Mental Status Sepsis Action Taken by Nursing Laboratory Data Attestation: I reviewed the patient's lab results. 01/20/23 10:30 01/20/23 10:30 Lab Results 01/20/23 01/20/23 01/20/23 Range/Units 10:30 10:30 10:30 WBC 8.48 (4.8-10.8) K/ul RBC 5.36 (4.70-6.10) M/uL Hgb 15.7 (14.0-18.0) g/dl Hct 45.3 (42.0-52.0) % MCV 84.5 (80.0-100.0) fL MCH 29.3 (25.0-34.0) pg MCHC 34.7 (32.0-36.0) g/dL RDW Std Deviation 40.1 (36.4-46.3) fL RDW Coeff of Lillie 13.1 (11.5-14.5) % Plt Count 168 (130-400) K/uL MPV 12.4 (9.4-12.4) fL Immature Gran % (Auto) 0.2 % Neut % (Auto) 74.9 % Lymph % (Auto) 18.5 % [place] % (Auto) 5.5 % Eos % (Auto) 0.4 % Baso % (Auto) 0.5 % Neut # (Auto) 6.35 (1.40-6.50) K/uL Lymph # (Auto) 1.57 (1.2-3.4) K/uL [place] # (Auto) 0.47 (0.11-0.59) K/uL Eos # (Auto) 0.03 (0-0.50) K/uL Baso # (Auto) 0.04 (0-0.2) K/uL Immature Gran # (Auto) 0.02 (0.01-0.20) K/uL PT 10.7 (9.0-12.0) Seconds INR 1.0 (0.9-1.1) APTT 25.6 (21.0-31.0) Seconds PTT Ratio 0.9 Sodium 131 L (136-145) mmol/L Potassium 4.9 (3.5-5.1) mmol/L Chloride 93 L (98-107) mmol/L Carbon Dioxide 28 (21-32) mmol/L Anion Gap 10 (3-11) BUN 27 H (6-23) mg/dl Creatinine 1.60 H (0.6-1.4) mg/dl Est Cr Clr Drug Dosing 76.3 ml/min Est GFR ( Amer) 57.4 ml/min Est GFR (Non-Af Amer) 49.5 ml/min BUN/Creatinine Ratio 16.9 (10-20) Glucose 578 H* (70-99(Fasting)) mg/dl POC Glucose (70-99) mg/dl Calcium 9.9 (8.6-10.3) mg/dl Total Bilirubin 0.6 (0.2-1.0) mg/dl AST 41 H (13-39) U/L ALT 74 H (7-52) U/L Alkaline Phosphatase 163 H (34-104) U/L Troponin I High Sens 15.7 (0-20) pg/ml Total Protein 8.0 (6.0-8.3) gm/dl Albumin 4.5 (3.4-5.0) gm/dl Globulin 3.5 (2.5-4.0) gm/dl Albumin/Globulin Ratio 1.3 (0.9-2) Lipase 57 (11-82) U/L SARS-CoV-2, RNA, NAAT (NEGATIVE) 01/20/23 01/20/23 01/20/23 Range/Units 11:47 12:51 14:24 WBC (4.8-10.8) K/ul RBC (4.70-6.10) M/uL Hgb (14.0-18.0) g/dl Hct (42.0-52.0) % MCV (80.0-100.0) fL MCH (25.0-34.0) pg MCHC (32.0-36.0) g/dL RDW Std Deviation (36.4-46.3) fL RDW Coeff of Lillie (11.5-14.5) % Plt Count (130-400) K/uL MPV (9.4-12.4) fL Immature Gran % (Auto) % Neut % (Auto) % Lymph % (Auto) % [place] % (Auto) % Eos % (Auto) % Baso % (Auto) % Neut # (Auto) (1.40-6.50) K/uL Lymph # (Auto) (1.2-3.4) K/uL [place] # (Auto) (0.11-0.59) K/uL Eos # (Auto) (0-0.50) K/uL Baso # (Auto) (0-0.2) K/uL Immature Gran # (Auto) (0.01-0.20) K/uL PT (9.0-12.0) Seconds INR (0.9-1.1) APTT (21.0-31.0) Seconds PTT Ratio Sodium (136-145) mmol/L Potassium (3.5-5.1) mmol/L Chloride (98-107) mmol/L Carbon Dioxide (21-32) mmol/L Anion Gap (3-11) BUN (6-23) mg/dl Creatinine (0.6-1.4) mg/dl Est Cr Clr Drug Dosing ml/min Est GFR ( Amer) ml/min Est GFR (Non-Af Amer) ml/min BUN/Creatinine Ratio (10-20) Glucose (70-99(Fasting)) mg/dl POC Glucose 469 H* 400 H* (70-99) mg/dl Calcium (8.6-10.3) mg/dl Total Bilirubin (0.2-1.0) mg/dl AST (13-39) U/L ALT (7-52) U/L Alkaline Phosphatase (34-104) U/L Troponin I High Sens (0-20) pg/ml Total Protein (6.0-8.3) gm/dl Albumin (3.4-5.0) gm/dl Globulin (2.5-4.0) gm/dl Albumin/Globulin Ratio (0.9-2) Lipase (11-82) U/L SARS-CoV-2, RNA, NAAT NEGATIVE (NEGATIVE) 01/20/23 Range/Units 15:41 WBC (4.8-10.8) K/ul RBC (4.70-6.10) M/uL Hgb (14.0-18.0) g/dl Hct (42.0-52.0) % MCV (80.0-100.0) fL MCH (25.0-34.0) pg MCHC (32.0-36.0) g/dL RDW Std Deviation (36.4-46.3) fL RDW Coeff of Lillie (11.5-14.5) % Plt Count (130-400) K/uL MPV (9.4-12.4) fL Immature Gran % (Auto) % Neut % (Auto) % Lymph % (Auto) % [place] % (Auto) % Eos % (Auto) % Baso % (Auto) % Neut # (Auto) (1.40-6.50) K/uL Lymph # (Auto) (1.2-3.4) K/uL [place] # (Auto) (0.11-0.59) K/uL Eos # (Auto) (0-0.50) K/uL Baso # (Auto) (0-0.2) K/uL Immature Gran # (Auto) (0.01-0.20) K/uL PT (9.0-12.0) Seconds INR (0.9-1.1) APTT (21.0-31.0) Seconds PTT Ratio Sodium (136-145) mmol/L Potassium (3.5-5.1) mmol/L Chloride (98-107) mmol/L Carbon Dioxide (21-32) mmol/L Anion Gap (3-11) BUN (6-23) mg/dl Creatinine (0.6-1.4) mg/dl Est Cr Clr Drug Dosing ml/min Est GFR ( Amer) ml/min Est GFR (Non-Af Amer) ml/min BUN/Creatinine Ratio (10-20) Glucose (70-99(Fasting)) mg/dl POC Glucose 342 H* (70-99) mg/dl Calcium (8.6-10.3) mg/dl Total Bilirubin (0.2-1.0) mg/dl AST (13-39) U/L ALT (7-52) U/L Alkaline Phosphatase (34-104) U/L Troponin I High Sens (0-20) pg/ml Total Protein (6.0-8.3) gm/dl Albumin (3.4-5.0) gm/dl Globulin (2.5-4.0) gm/dl Albumin/Globulin Ratio (0.9-2) Lipase (11-82) U/L SARS-CoV-2, RNA, NAAT (NEGATIVE) Administered Medications Apixaban (Apixaban 5 Mg Tablet) 5 mg PO BID DIAMOND Stop: 02/19/23 20:59 Last Admin: 01/20/23 20:36 Dose: 5 mg Documented By: ALONDRA Clonazepam (Clonazepam 1 Mg Tab) 2 mg PO BID DIAMOND Stop: 02/19/23 20:59 Last Admin: 01/20/23 20:36 Dose: 2 mg Documented By: ALONDRA Lactated Ringer's (Lr) 1,000 mls @ 125 mls/hr IV .Q8H DIAMOND Stop: 01/21/23 09:14 Last Admin: 01/20/23 17:19 Dose: 125 mls/hr Documented By: Famotidine 20 mg/ Syringe 5 mls @ 2.5 mls/min IV BID DIAMOND Stop: 02/19/23 20:59 Last Admin: 01/20/23 20:37 Dose: 2.5 mls/min Documented By: ALONDRA Pantoprazole Sodium 40 mg/ (Syringe) 10 mls @ 5 mls/min IV BID DIAMOND Stop: 02/19/23 20:59 Last Admin: 01/20/23 20:37 Dose: 5 mls/min Documented By: ALONDRA Insulin Aspart (Insulin Aspart Per Unit Charge) 0 units SC ACHS DIAMOND Stop: 02/19/23 20:59 Last Admin: 01/20/23 20:54 Dose: 9 units Documented By: ALONDRA Co-signed By: ERASMO Oxycodone HCl (Oxycodone Hcl Ir 5 Mg Tab (Immediate Release)) 5 mg PO Q4H PRN PRN Reason: Pain Stop: 02/03/23 20:16 Last Admin: 01/20/23 20:38 Dose: 5 mg Documented By: ALONDRA Sucralfate (Sucralfate 1 Gm Tab) 1 gm PO QID DIAMOND Stop: 02/19/23 20:59 Last Admin: 01/20/23 20:36 Dose: 1 gm Documented By: ALONDRA Tamsulosin HCl (Tamsulosin Hcl 0.4 Mg Cap) 0.4 mg PO HS DIAMOND Stop: 02/19/23 20:59 Last Admin: 01/20/23 20:35 Dose: 0.4 mg Documented By: ALONDRA Discontinued Medications Al Hydrox/Mg Hydrox/Simethicone (Gi Cocktail Ed Use) 1 dose PO ONE STA Stop: 01/20/23 15:55 Last Admin: 01/20/23 16:03 Dose: 1 dose Documented By: Dicyclomine HCl (Dicyclomine Hcl 10 Mg/Ml 2 Ml Amp/Vial) 20 mg IM NOW ONE Stop: 01/20/23 13:03 Last Admin: 01/20/23 13:08 Dose: 20 mg Documented By: AB Sodium Chloride (Nss 1000ml) 1,000 mls @ 999 mls/hr IV .Q1H1M ONE Stop: 01/20/23 12:37 Last Infusion: 01/20/23 12:58 Dose: 0 mls/hr Documented By: Admin: 01/20/23 11:50 Dose: 999 mls/hr Documented By: AB Famotidine (Pepcid 20mg Iv Push) 20 mg in 5 mls @ 2.5 mls/min IV NOW STA Stop: 01/20/23 11:38 Last Admin: 01/20/23 11:50 Dose: 2.5 mls/min Documented By: AB Sodium Chloride (Nss 1000ml) 1,000 mls @ 999 mls/hr IV .Q1H1M ONE Stop: 01/20/23 13:59 Last Infusion: 01/20/23 14:18 Dose: 0 mls/hr Documented By: Admin: 01/20/23 13:12 Dose: 999 mls/hr Documented By: AB Pantoprazole Sodium 40 mg/ (Syringe) 10 mls @ 5 mls/min IV NOW STA Stop: 01/20/23 15:53 Last Admin: 01/20/23 16:05 Dose: 5 mls/min Documented By: Insulin Aspart (Insulin Aspart Per Unit Charge) 10 units SC NOW STA Stop: 01/20/23 14:31 Last Admin: 01/20/23 14:35 Dose: 10 units Documented By: AB Co-signed By: JOHN Insulin Glargine (Lantus Per Unit Charge) 50 units SQ ONE STA Stop: 01/20/23 15:53 Last Admin: 01/20/23 16:03 Dose: 50 units Documented By: AB Co-signed By: JOHN Insulin Human Regular (Novolin-R Insulin Per Unit Charge) 10 units IV NOW STA Stop: 01/20/23 13:00 Last Admin: 01/20/23 13:07 Dose: 10 units Documented By: AB Co-signed By: JOHN Labetalol HCl (Labetalol Hcl Iv 5 Mg/Ml 20ml) 10 mg IV NOW STA Stop: 01/20/23 14:54 Last Admin: 01/20/23 14:57 Dose: 10 mg Documented By: Co-signed By: JOHN Ondansetron HCl (Ondansetron Inj 2 Mg/Ml 2 Ml Vial) 4 mg IV NOW STA Stop: 01/20/23 11:38 Last Admin: 01/20/23 11:50 Dose: 4 mg Documented By: Sucralfate (Sucralfate 1 Gm/10 Ml Udc) 1 gm PO NOW STA Stop: 01/20/23 11:38 Last Admin: 01/20/23 11:50 Dose: 1 gm Documented By: Imaging Data Radiologist's Impression: Chest CT 01/20/23 14:53 CT chest diagnostic wo con CLINICAL HISTORY: chest to back pain TECHNIQUE: Multidetector row helical CT of the chest was performed. Coronal and sagittal reformations were obtained. Automated dose lowering techniques and/or adjustment according to patient size were utilized for this exam. CT DOSE: 597.72 mGycm Comparison: Comparison is made to CT chest 09/27/2022 FINDINGS: Lungs and pleura: Atelectasis versus scarring is seen in the dependent portions of the lungs. Heart and pericardium: Heart size is normal. No pericardial effusion. Vessels: Unremarkable. Mediastinum and tori: Unremarkable. Chest wall and lower neck: Unremarkable. Abdomen: Borderline hepatic steatosis. Bones: Unremarkable. IMPRESSION: No acute abnormalities to explain chest and back pain. ACT 112: Negative or not required by law. Electronically signed by: Marcus Camarena M.D. 01/20/2023 3:25 PM Chest X-Ray 01/20/23 10:15 SINGLE VIEW CHEST CLINICAL HISTORY: Atypical chest pain. FINDINGS: An AP, portable, upright chest radiograph is compared to study dated 09/26/2022 and correlated with chest CT dated 09/27/2022. The cardiomediastinal silhouette is top normal for projection. The lungs and pleural spaces are clear noting mild bibasilar atelectasis. No pneumothorax is seen. The bony thorax is grossly intact. IMPRESSION: No acute cardiopulmonary abnormality. ACT 112: Negative or not required by law. Electronically signed by: Kendall Dee M.D. 01/20/2023 11:18 AM Abdomen/Pelvis CT 01/20/23 11:40 CT abd pelvis wo con CLINICAL HISTORY: abd pain nausea TECHNIQUE: Helical axial images of the abdomen and pelvis were obtained. Automated dose lowering techniques and/or adjustment according to patient size were utilized for this exam. This exam was performed without intravenous contrast. CT DOSE: 956.53 mGy.cm COMPARISON: Comparison is made to CT abdomen pelvis 09/17/2022 FINDINGS: Lower chest: Bibasilar atelectasis versus scarring is seen. Liver: Hepatic steatosis is noted. Nodularity of the hepatic contour is seen compatible with cirrhosis. Gallbladder and biliary tree: Patient is status post cholecystectomy. No intra- or extrahepatic biliary ductal dilation. Pancreas: Unremarkable, no focal lesions. Spleen: Unremarkable. Adrenals: Unremarkable. Kidneys and ureters: Unremarkable. Bladder: Unremarkable. Reproductive organs: Prostatomegaly is seen. Bowel: Diverticulosis is seen without evidence of diverticulitis. The appendix is normal. There is a small hiatal hernia. Lymph nodes Retroperitoneal: Unremarkable. Pelvic: Unremarkable. Mesenteric: Unremarkable. Peritoneum: Normal. Vessels: Unremarkable. Abdominal wall: Unremarkable. Bones: Minimal degenerative changes are seen. IMPRESSION: 1. No evidence of bowel obstruction. 2. Nodular contour of the liver compatible with cirrhosis. 3. Diverticulosis without diverticulitis. Normal appendix. ACT 112: Negative or not required by law. Electronically signed by: Marcus Camarena M.D. 01/20/2023 12:[address] 01/20/23 14:53 CT chest diagnostic wo con CLINICAL HISTORY: chest to back pain TECHNIQUE: Multidetector row helical CT of the chest was performed. Coronal and sagittal reformations were obtained. Automated dose lowering techniques and/or adjustment according to patient size were utilized for this exam. CT DOSE: 597.72 mGycm Comparison: Comparison is made to CT chest 09/27/2022 FINDINGS: Lungs and pleura: Atelectasis versus scarring is seen in the dependent portions of the lungs. Heart and pericardium: Heart size is normal. No pericardial effusion. Vessels: Unremarkable. Mediastinum and tori: Unremarkable. Chest wall and lower neck: Unremarkable. Abdomen: Borderline hepatic steatosis. Bones: Unremarkable. IMPRESSION: No acute abnormalities to explain chest and back pain. ACT 112: Negative or not required by law. Electronically signed by: Marcus Camarena M.D. 01/20/2023 3:25 PM Discharge Plan Visit Data Chief Complaint: Chest Pain Stated Complaint: CHEST PAIN ED Provider: Cross,Ayaz E Discharge Problem: Hypertensive urgency, Atypical chest pain, Uncontrolled diabetes mellitus with hyperglycemia, History of esophagitis, CKD (chronic kidney disease) Patient Disposition: Admitted As Inpatient Discharge Instructions Interventions: ED Discharge Assessment Last Done: 01/20/23 18:00
--- NOTE | 2023-01-20 15:35 | History & Physical Report ---
Date of Service January 20, 2023 Assessment & Plan (1) Chest pain: Plan: Coffee ground emesis in September and was supposed to be taking pantoprazole following this and have outpatient EGD - neither of which occurred. Suspect esophagitis/gastritis - GI cocktail, IV pantoprazole 40mg IV BID, IV famotidine 20mg IV BID, carafate 1g QID Consult gastroenterology as previously lost to follow up - he was also advised to follow up with gastroenterology for his liver cirrhosis, NPO after midnight Do not suspect ACS given pain ongoing for multiple days constantly with negative high sensitivity troponin (2) DM w/o complication type II, uncontrolled: Plan: Ran out of Lantus as he reports being switched to Mounjaro - although he is currently on total 136 units a day of insulin therefore I think he may be mistaken regarding the 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 Continue Lantus 50 units BID Novolog: --Goal BSG Range: Low 110 mg/dL, High 140 mg/dL --Correction Factor: 10 mg/dL/unit --Carbohydrate ratio = 3 g/unit --BSGs ACHS if eating, q6h if npo Consult pharmacy for ongoing dosing (3) BPH (benign prostatic hyperplasia): Plan: Continue tamulosin (4) Liver cirrhosis: Plan: Suspect secondary to fulminant hepatic failure in January 2022 - advised patient to follow up with a supervisor webbing regarding this (5) GERD (gastroesophageal reflux disease): (6) Hypertension: Plan: Secondary to pain in the ER Continue his antihypertensives Stop methylphenidate Plan VTE Prophylaxis - Eliquis (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 He reports this has been going on intermittently for the last 2 weeks but constant for the last 4 days. Associated nausea and unable to eat or drink anything without pain. Severity 8/10 currently. No dysphagia. Odynophagia with liquids or food. He feels he has lost 12-13 lb since September. Non-positional, worse on inspiration or exertion. No associated shortness of breath or diaphoresis. He was admitted for coffee ground emesis in September 2022. He was supposed to have a EGD on follow up but reports no one called him therefore he did not have this done. He was also supposed to be taking pantoprazole 40mg PO BID since then but reports it was never prescribed. In the ER his glucose levels were elevated to 578 mg/dL. He reports this is due to running out of his Lantus as the plan was to switch him to Mounjaro. However he is having problems with his insurance paying for that and in the mean time ran out of Lantus. 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 Allergies Allergy/AdvReac Type Severity Reaction Status Date / Time iodine Allergy Severe THROAT Verified 10/22/22 09:10 SWELLING shellfish derived Allergy Severe THROAT Verified 10/22/22 09:10 SWELLING acetaminophen Allergy Intermediate Chest Pain Verified 10/22/22 09:10 & SOB Iodinated Contrast Media Allergy Intermediate swelling Verified 10/22/22 09:10 hydrocodone AdvReac Intermediate GI ISSUES Verified 10/22/22 09:10 Plasma, Human Allergy Severe ANAPHYLAXIS Uncoded 10/22/22 09:10 Home Medications Medication Instructions Recorded Confirmed Type epinephrine 0.3 mg/0.3 mL 0.3 mg IM DIRECTED PRN Allergic 02/02/22 01/20/23 History injection, auto-injector Reaction insulin aspart U-100 100 unit/mL 0 sliding scale dose subcut AC 02/26/22 01/20/23 History (3 mL) subcutaneous pen (Novolog FlexPen U-100 Insulin aspart) polyethylene glycol 3350 17 gram 17 g PO DAILY PRN Constipation 08/06/22 01/20/23 History oral powder packet (Miralax) sennosides 8.6 mg tablet (Senokot) 17.2 mg PO DAILY PRN Constipation 08/06/22 01/20/23 History duloxetine 60 mg capsule,delayed 60 mg PO QAM #30 caps 09/10/22 01/20/23 Rx release oxycodone 5 mg tablet 5 - 10 mg PO Q6H PRN pain #20 tabs 12/31/22 01/20/23 Rx clonazepam 2 mg tablet 2 mg PO BID 30 days #60 tabs 01/14/23 01/20/23 Rx duloxetine 20 mg capsule,delayed 20 mg PO QAM #30 caps 01/14/23 01/20/23 Rx release apixaban 5 mg tablet (Eliquis) 5 mg PO BID 01/20/23 01/20/23 History baclofen 10 mg tablet 10 mg PO TID PRN Muscle Spasm 01/20/23 01/20/23 History insulin aspart U-100 100 unit/mL 12 unit subcut AC 01/20/23 01/20/23 History (3 mL) subcutaneous pen insulin glargine 100 unit/mL (3 50 unit subcut BID 01/20/23 01/20/23 History mL) subcutaneous pen (Lantus Solostar U-100 Insulin) lisinopril 10 mg tablet 10 mg PO QAM 01/20/23 01/20/23 History methylphenidate HCl 20 mg tablet 20 mg PO BID #60 tabs 01/20/23 01/20/23 Rx tamsulosin 0.4 mg capsule 0.4 mg PO HS 01/20/23 01/20/23 History Past Med/Surg History Medical History Abdominal pain Abnormal EKG 2016 > no further follow up needed per patient Acute hyponatremia Acute kidney injury superimposed on CKD Acute pancreatitis Acute urinary retention Adhesive capsulitis of shoulder BRIDGETTE (acute kidney injury) Anemia Anxiety Anxiety Blood clotting disorder unsure of specific details > Dr. Azevedo PCP Bowel obstruction recent --> inpatient at [facility] 09/26/22 until 09/30/22. no surgery. had NG Tube while inpatient BPH loc w urin obs/LUTS Cholecystitis Choledocholithiasis with obstruction CKD (chronic kidney disease), stage III no specialist > improving per pt report Coffee ground emesis Depression Depression DM type 2 (diabetes mellitus, type 2) DM w/o complication type II, uncontrolled Most recent Hgb A1C 7.1 on 02/26/22 Elevated creatine kinase Elevated LFTs Elevated troponin Elevated troponin Esophagitis Gastrointestinal hemorrhage 2015 > resolved History of alcohol abuse History of bleeding ulcers (~2014) History of liver failure Due to acetaminophen intake per PCP records 01/2022 History of pleural effusion 2013> [facility] History of pulmonary embolus (PE) History of recent hospitalization treated inpatient at [facility] from 09/26/22 - 09/30/22. treated for pneumonia, bowel obstruction, & vomitting blood. Hx of pancreatitis January 2022 --- resolved s/p lap choley Hypertension Hypertensive urgency Hypertriglyceridemia Insomnia Lesion of liver Under observation > Dr. Azevedo Lung consolidation Myalgia and myositis Obesity Odynophagia On anticoagulant therapy Pancreatitis with biliary duct stent done 02/08/22 Partial small bowel obstruction PTSD (post-traumatic stress disorder) Pulmonary embolism 4 total> last one 2016> Eliquis Transaminitis Surgical History History of cardiac cath 2016 due to chest pain> was clear per patient> no stents> [facility] History of colonoscopy History of ERCP History of esophagogastroduodenoscopy (EGD) Hx laparoscopic cholecystectomy (03/05/22) Laparoscopic Cholecystectomy(Not Applicable) - Clayton Vela, Hx of surgical procedure colorectal for fissure S/P arthroscopy of shoulder 07/23/19 Dr. Cortes Carranza- Left shoulder arthroscopy with superior labrum a nterior to posterior repair; Debridement of glenoid labrum; Synovectomy; Subacromial decompression with acromioplasty; Distal clavicle excision with excision of 10 mm of distal clavicle. S/P laparoscopic cholecystectomy Status post laparoscopic cholecystectomy Family History Mother , s/p brain aneurysm Aneurysm Other Hypertension No family history of adverse response to anesthesia Denies family history of Ovarian cancer Prostate cancer Myocardial infarction Breast cancer Colorectal cancer Social History Smoking Status: Never smoker Second Hand Exposure: No; Hx Alcohol Use: Yes Alcohol type: beer Hx Substance Use: No Preferred Language: Nigerian Communication Ability: Effective Visual Impairment: No Limitations Hearing Ability: Normal Medical Office Specialist Required: No Beliefs That Will Affect Care: None marital status: Single Current Living Situation: Alone Current Living Situation Comment: with a friend current occupational status: disabled Feels Safe at Home: Yes Safety Concerns: Feels Safe At This Time Childhood Exposure to Second-Hand Smoke: No Dental Care, Regularly: Yes Physical Activity Frequency: Does not Exercise Seatbelt Use: always Sunscreen Use: No Assistive Devices: None Review of Systems Review of Systems: All systems reviewed & are unremarkable except as noted in HPI & below Physical Exam Constitutional: WD/WN, vitals as above Respiratory: normal respiratory effort, lungs clear to auscultation Cardiovascular: RRR, no murmur, no edema Gastrointestinal (Abdomen): Inspection/Auscultation: abdomen normal to inspection; abdomen not distended Percussion/Palpation: + abdomen tender (epigastric) and abdomen soft; no guarding and abdomen not rigid Musculoskeletal: no cyanosis or clubbing, extremities motor strength 5/5 Skin: no rashes, warm and dry Neurologic: moves all extremities and awake; not confused Psychiatric: A+Ox3, euthymic affect Results & Data Results & Data Vital Signs (Past 12 Hours) Vital Signs Temp Pulse Pulse Resp BP BP Pulse Ox 01/20/23 15:19 90 20 128/90 95 01/20/23 14:36 95 H 15 221/155 H 98 01/20/23 13:24 90 17 97 01/20/23 12:55 100 H 18 148/93 H 97 01/20/23 11:35 106 H 01/20/23 10:38 103 H 16 162/103 H 95 01/20/23 10:12 36.8 C 108 H 20 173/110 H 98 O2 Del Method 01/20/23 15:19 Room Air 01/20/23 14:36 Room Air 01/20/23 13:24 Room Air 01/20/23 12:55 Room Air 01/20/23 11:35 01/20/23 10:38 Room Air 01/20/23 10:12 Room Air Laboratory Results Abnormal lab results 01/20/23 01/20/23 01/20/23 Range/Units 10:30 12:51 14:24 Sodium 131 L (136-145) mmol/L Chloride 93 L (98-107) mmol/L BUN 27 H (6-23) mg/dl Creatinine 1.60 H (0.6-1.4) mg/dl Glucose 578 H* (70-99(Fasting)) mg/dl POC Glucose 469 H* 400 H* (70-99) mg/dl AST 41 H (13-39) U/L ALT 74 H (7-52) U/L Alkaline Phosphatase 163 H (34-104) U/L 01/20/23 01/20/23 01/20/23 Range/Units 15:41 18:12 20:45 Sodium (136-145) mmol/L Chloride (98-107) mmol/L BUN (6-23) mg/dl Creatinine (0.6-1.4) mg/dl Glucose (70-99(Fasting)) mg/dl POC Glucose 342 H* 259 H 222 H (70-99) mg/dl AST (13-39) U/L ALT (7-52) U/L Alkaline Phosphatase (34-104) U/L Diagnostic Findings SINGLE VIEW CHEST CLINICAL HISTORY: Atypical chest pain. FINDINGS: An AP, portable, upright chest radiograph is compared to study dated 09/26/2022 and correlated with chest CT dated 09/27/2022. The cardiomediastinal silhouette is top normal for projection. The lungs and pleural spaces are clear noting mild bibasilar atelectasis. No pneumothorax is seen. The bony thorax is grossly intact. IMPRESSION: No acute cardiopulmonary abnormality. CT chest diagnostic wo con CLINICAL HISTORY: chest to back pain TECHNIQUE: Multidetector row helical CT of the chest was performed. Coronal and sagittal reformations were obtained. Automated dose lowering techniques and/or adjustment according to patient size were utilized for this exam. CT DOSE: 597.72 mGycm Comparison: Comparison is made to CT chest 09/27/2022 FINDINGS: Lungs and pleura: Atelectasis versus scarring is seen in the dependent portions of the lungs. Heart and pericardium: Heart size is normal. No pericardial effusion. Vessels: Unremarkable. Mediastinum and tori: Unremarkable. Chest wall and lower neck: Unremarkable. Abdomen: Borderline hepatic steatosis. Bones: Unremarkable. IMPRESSION: No acute abnormalities to explain chest and back pain. CT abd pelvis wo con CLINICAL HISTORY: abd pain nausea TECHNIQUE: Helical axial images of the abdomen and pelvis were obtained. Automated dose lowering techniques and/or adjustment according to patient size were utilized for this exam. This exam was performed without intravenous contrast. CT DOSE: 956.53 mGy.cm COMPARISON: Comparison is made to CT abdomen pelvis 09/17/2022 FINDINGS: Lower chest: Bibasilar atelectasis versus scarring is seen. Liver: Hepatic steatosis is noted. Nodularity of the hepatic contour is seen compatible with cirrhosis. Gallbladder and biliary tree: Patient is status post cholecystectomy. No intra- or extrahepatic biliary ductal dilation. Pancreas: Unremarkable, no focal lesions. Spleen: Unremarkable. Adrenals: Unremarkable. Kidneys and ureters: Unremarkable. Bladder: Unremarkable. Reproductive organs: Prostatomegaly is seen. Bowel: Diverticulosis is seen without evidence of diverticulitis. The appendix is normal. There is a small hiatal hernia. Lymph nodes Retroperitoneal: Unremarkable. Pelvic: Unremarkable. Mesenteric: Unremarkable. Peritoneum: Normal. Vessels: Unremarkable. Abdominal wall: Unremarkable. Bones: Minimal degenerative changes are seen. IMPRESSION: 1. No evidence of bowel obstruction. 2. Nodular contour of the liver compatible with cirrhosis. 3. Diverticulosis without diverticulitis. Normal appendix. Medications Administered ER Medications Given: NSS 1L bolus Famotidine 20mg IV Ondansetron 4mg IV Carafate 1g PO Insulin 10 units IV NSS 1L bolus Dicyclomine 20mg IM Insulin 10 units SC Labetalol 10mg IV ECG Rate (beats per minute): 102 Rhythm: sinus tachycardia Findings: no acute ischemic change Comparison ECG Date: from (Sep 28, 2022) Change: no significant change Code Status & VTE Plan Code Status Full VTE Prophylaxis Plan VTE Prophylaxis will be ordered: Yes PG Care Time/CCT Total # of Minutes Spent Total Time Spent with Patient: Total time spent is greater than 50% in coordination of care (as documented) at patient's floor/unit and/or counseling patient: Coding Level of Care Code 90017 INT INP/OBS CARE 3/75MIN Diagnoses Chest pain R07.9 Chest pain type: unspecified DM w/o complication type II, uncontrolled E11.65 Glycemic state: with hyperglycemia BPH (benign prostatic hyperplasia) N40.0 Liver cirrhosis K74.60 GERD (gastroesophageal reflux disease) K21.9 Hypertension I10 (1) Chest pain Chest pain type: unspecified Qualified Code(s): R07.9 - Chest pain, unspecified (2) DM w/o complication type II, uncontrolled Glycemic state: with hyperglycemia Qualified Code(s): E11.65 - Type 2 diabetes mellitus with hyperglycemia
[2023-01-20] MEDS ORDERED: LANTUS PER UNIT CHARGE SQ STA (15:52)
[2023-01-20] MEDS ORDERED: PANTOprazole 40 MG in SYRINGE 0 ML IV STA (15:52)
[2023-01-20] MEDS ORDERED: GI COCKTAIL ED USE PO STA (15:54)
[2023-01-20] MEDS: LACTATED RINGER'S 1,000 ML IV SCH (17:19)
[2023-01-20] MEDS ORDERED: SENNA 8.6 MG TAB PO PRN (18:21)
[2023-01-20] MEDS ORDERED: POLYETHYLENE (MIRALAX) 17 GM PACK PO PRN (18:21)
[2023-01-20] MEDS ORDERED: GLUCOSE 10 TAB/TUBE PO PRN (19:00)
[2023-01-20] MEDS ORDERED: GLUCOSE 40% GEL 15 GM TUBE PO PRN (19:00)
[2023-01-20] MEDS ORDERED: PHARMACY GLYCEMIC MGMT CONSULT PRN (19:00)
[2023-01-20] MEDS ORDERED: GLUCAGON FOR INJ 1 MG VIAL SQ PRN (19:00)
[2023-01-20] MEDS ORDERED: DEXTROSE 50% 50 ML SYRINGE IV PRN (19:00)
[2023-01-20] MEDS ORDERED: CARBOHYDRATES FOR HYPOGLYCEMIA PO PRN (19:00)
[2023-01-20] MEDS: APIXABAN 5 MG TABLET PO SCH (20:36)
[2023-01-20] MEDS: SUCRALFATE 1 GM TAB PO SCH (20:36)
[2023-01-20] MEDS: clonazePAM 1 MG TAB PO SCH (20:36)
[2023-01-20] MEDS: PANTOprazole 40 MG in SYRINGE 0 ML IV SCH (20:37)
[2023-01-20] MEDS: FAMOTIDINE 20 MG in SYRINGE 3 ML IV SCH (20:37)
[2023-01-20] MEDS: oxyCODONE HCL IR 5 MG TAB (IMMEDIATE RELEASE) PO PRN (20:38)
[2023-01-20] MEDS: INSULIN ASPART PER UNIT CHARGE SC SCH (20:54)
[2023-01-20] MEDS ORDERED: TAMSULOSIN HCL 0.4 MG CAP PO SCH (21:00)
[2023-01-21] MEDS: LACTATED RINGER'S 1,000 ML IV SCH (03:10)
[2023-01-21 07:55] LABS: BUN Creatinine Ratio 13.7 (10-20); Calcium 7.9 mg/dl (8.6-10.3); Creatinine Clr Calc Pharmacy 98.4 ml/min; Est GFR (African American) 78.1 ml/min; Est GFR (Non-African American) 67.4 ml/min; Potassium 4.1 mmol/L (3.5-5.1)
[2023-01-21] MEDS: APIXABAN 5 MG TABLET PO SCH (08:36)
[2023-01-21] MEDS: SUCRALFATE 1 GM TAB PO SCH ×2 (08:37→13:08)
[2023-01-21] MEDS: PANTOprazole 40 MG in SYRINGE 0 ML IV SCH (08:38)
[2023-01-21] MEDS: INSULIN ASPART PER UNIT CHARGE SC SCH ×2 (08:38→12:42)
[2023-01-21] MEDS: oxyCODONE HCL IR 5 MG TAB (IMMEDIATE RELEASE) PO PRN ×2 (08:41→12:44)
[2023-01-21] MEDS: clonazePAM 1 MG TAB PO SCH (08:41)
[2023-01-21] MEDS: FAMOTIDINE 20 MG in SYRINGE 3 ML IV SCH (08:41)
[2023-01-21 08:56] LABS: Estimated Average Glucose 378 mg/dl; Hemoglobin A1C 14.8 % (4.5-5.6)
[2023-01-21] MEDS ORDERED: lisinopril 10 MG TAB PO SCH (09:00)
[2023-01-21] MEDS ORDERED: DULoxetine HCL 20 MG CAP PO SCH (09:00)
[2023-01-21] MEDS ORDERED: DULoxetine HCL 60 MG CAP PO SCH (09:00)
[2023-01-21] MEDS ORDERED: LANTUS PER UNIT CHARGE SQ SCH ×2 (09:00→16:30)
--- NOTE | 2023-01-21 09:04 | Gastrointestinal Consultation ---
Date of Consultation January 21, 2023 Assessment & Plan (1) Atypical chest pain: (2) Odynophagia: Plan 1. Hold Eliquis 2. Plan for EGD . 3. Pantoprazole 40mg BID. 4. Carafate 1gm ac, hs. 5. Full liquid diet today. If tolerates then may advance to soft. Supervising Physician Co-Signing Physician Notes Consult is for chest pain The patient is in no acute distress on clinical exam with a benign abdomen, agree with pe as documented Essentially main complaint is chest pain. Would ensure negative cardiac work-up. Prior history of pe's on eliquis. He appears to have not followed up with GI despite prior recommendations. Agree with further plan of care as documented. History of Present Illness Reason for Consultation: severe esophagitis Requesting Physician: Dr. Suki Neumann Attending Physician: Naresh Calabrese History of Present Illness Mr. Jordan Delaney is a 52 yr old male pt of Dr. Edgardo Azevedo w a hx of PEs on Eliquis (most recent dose this morning), DM-2/insulin requiring, CKD, cirrhosis, PUD (2014), and other as below. He presented to the ED yesterday for chest and epigastric pain which began 2 wks prior. He describes a sharp, stabbing pain in the chest after swallowing anything and sharp epigastric pain after eating which persist and hour. He has nausea but no vomiting. He denies blood in BMs or black BMs. Non contrast CTAP w cirrhosis and diverticulosis, no acute abnormalities. Chest CT w/o mention of esophagus abnormalities. LFTs are mildly elevated AST 41, ALT 76, Alk Phos 163, T Bili and lipase have been normal. Troponin is normal. Most recent EGD was January 2022 for epigastric pain: normal. Allergies Allergy/AdvReac Type Severity Reaction Status Date / Time iodine Allergy Severe THROAT Verified 10/22/22 09:10 SWELLING shellfish derived Allergy Severe THROAT Verified 10/22/22 09:10 SWELLING acetaminophen Allergy Intermediate Chest Pain Verified 10/22/22 09:10 & SOB Iodinated Contrast Media Allergy Intermediate swelling Verified 10/22/22 09:10 hydrocodone AdvReac Intermediate GI ISSUES Verified 10/22/22 09:10 Plasma, Human Allergy Severe ANAPHYLAXIS Uncoded 10/22/22 09:10 Home Medications Medication Instructions Recorded Confirmed Type epinephrine 0.3 mg/0.3 mL 0.3 mg IM DIRECTED PRN Allergic 02/02/22 01/20/23 History injection, auto-injector Reaction insulin aspart U-100 100 unit/mL 0 sliding scale dose subcut AC 02/26/22 01/20/23 History (3 mL) subcutaneous pen (Novolog FlexPen U-100 Insulin aspart) polyethylene glycol 3350 17 gram 17 g PO DAILY PRN Constipation 08/06/22 01/20/23 History oral powder packet (Miralax) sennosides 8.6 mg tablet (Senokot) 17.2 mg PO DAILY PRN Constipation 08/06/22 01/20/23 History duloxetine 60 mg capsule,delayed 60 mg PO QAM #30 caps 09/10/22 01/20/23 Rx release oxycodone 5 mg tablet 5 - 10 mg PO Q6H PRN pain #20 tabs 12/31/22 01/20/23 Rx clonazepam 2 mg tablet 2 mg PO BID 30 days #60 tabs 01/14/23 01/20/23 Rx duloxetine 20 mg capsule,delayed 20 mg PO QAM #30 caps 01/14/23 01/20/23 Rx release apixaban 5 mg tablet (Eliquis) 5 mg PO BID 01/20/23 01/20/23 History baclofen 10 mg tablet 10 mg PO TID PRN Muscle Spasm 01/20/23 01/20/23 History insulin aspart U-100 100 unit/mL 12 unit subcut AC 01/20/23 01/20/23 History (3 mL) subcutaneous pen insulin glargine 100 unit/mL (3 50 unit subcut BID 01/20/23 01/20/23 History mL) subcutaneous pen (Lantus Solostar U-100 Insulin) lisinopril 10 mg tablet 10 mg PO QAM 01/20/23 01/20/23 History methylphenidate HCl 20 mg tablet 20 mg PO BID #60 tabs 01/20/23 01/20/23 Rx tamsulosin 0.4 mg capsule 0.4 mg PO HS 01/20/23 01/20/23 History Patient History Medical History Abdominal pain Abnormal EKG 2016 > no further follow up needed per patient Acute hyponatremia Acute kidney injury superimposed on CKD Acute pancreatitis Acute urinary retention Adhesive capsulitis of shoulder BRIDGETTE (acute kidney injury) Anemia Anxiety Anxiety Blood clotting disorder unsure of specific details > Dr. Azevedo PCP Bowel obstruction recent --> inpatient at [facility] 09/26/22 until 09/30/22. no surgery. had NG Tube while inpatient BPH loc w urin obs/LUTS Cholecystitis Choledocholithiasis with obstruction CKD (chronic kidney disease), stage III no specialist > improving per pt report Coffee ground emesis Depression Depression DM type 2 (diabetes mellitus, type 2) DM w/o complication type II, uncontrolled Most recent Hgb A1C 7.1 on 02/26/22 Elevated creatine kinase Elevated LFTs Elevated troponin Elevated troponin Esophagitis Gastrointestinal hemorrhage 2016 > resolved History of alcohol abuse History of bleeding ulcers (~2014) History of liver failure Due to acetaminophen intake per PCP records 01/2022 History of pleural effusion 2013> [facility] History of pulmonary embolus (PE) History of recent hospitalization treated inpatient at [facility] from 09/26/22 - 09/30/22. treated for pneumonia, bowel obstruction, & vomitting blood. Hx of pancreatitis January 2022 --- resolved s/p lap choley Hypertension Hypertensive urgency Hypertriglyceridemia Insomnia Lesion of liver Under observation > Dr. Azevedo Lung consolidation Myalgia and myositis Obesity Odynophagia On anticoagulant therapy Pancreatitis with biliary duct stent done 02/08/22 Partial small bowel obstruction PTSD (post-traumatic stress disorder) Pulmonary embolism 4 total> last one 2015> Eliquis Transaminitis Surgical History History of cardiac cath 2016 due to chest pain> was clear per patient> no stents> [facility] History of colonoscopy History of ERCP History of esophagogastroduodenoscopy (EGD) Hx laparoscopic cholecystectomy (03/05/22) Laparoscopic Cholecystectomy(Not Applicable) - Clayton Vela, Hx of surgical procedure colorectal for fissure S/P arthroscopy of shoulder 07/23/19 Dr. Cortes Carranza- Left shoulder arthroscopy with superior labrum anterior to posterior repair; Debridement of glenoid labrum; Synovectomy; Subacromial decompression with acromioplasty; Distal clavicle excision with excision of 10 mm of distal clavicle. 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 Worker Required: No Beliefs That Will Affect Care: None marital status: Single Current Living Situation: Alone Current Living Situation Comment: with a friend current occupational status: disabled Feels Safe at Home: Yes Safety Concerns: Feels Safe At This Time Childhood Exposure to Second-Hand Smoke: No Dental Care, Regularly: Yes Physical Activity Frequency: Does not Exercise Seatbelt Use: always Sunscreen Use: No Assistive Devices: None Review of Systems Review of Systems: ROS: Gen: Denies weakness, fevers, weight loss Eyes: No eye redness, or pain, no recent vision changes Resp: No SOB, no cough Cardio: + CP with swallowing, No palpitations/irregular beats GI: As per HPI otherwise (-). : Denies pain on urination Skin: No jaundice, itching or new rashes Physical Exam Constitutional: WD/WN, vitals as above Eyes: PERRL, conjunctivae normal, anicteric sclerae ENMT: external ear and nose normal, oropharynx normal Neck: trachea midline, no thyromegaly Respiratory: normal respiratory effort, lungs clear to auscultation Cardiovascular: RRR, no murmur, no edema Gastrointestinal (Abdomen): soft, + mild epigastric tenderness, non distended, no masses Musculoskeletal: no cyanosis or clubbing, extremities motor strength 5/5 Skin: no rashes, warm and dry Neurologic: PERRL, EOMI, accommodation nl, no face palsy, no dysarthria Psychiatric: A+Ox3, euthymic affect Lymphatic: no cervical or axillary lymphadenopathy Results & Data Vital Signs (Past 12 Hours) Vital Signs Temp Pulse Resp BP Pulse Ox O2 Del Method 01/21/23 07:40 36.6 C 78 18 118/75 96 Room Air Laboratory Results T Bili 0.6, AST 41, ALT 76, ALk Phos 163, WBC 8.4, Hb 15.7, Hct 45.3, Plts 168, PT 10.7, INR 1.0, Na 131, K 4.9, Cl 93, CO2 28, BUN 27, Cr 1.6, Glucose 578. Diagnostic Findings Non contrast CTAP 01/20/23: 1. No evidence of bowel obstruction. 2. Nodular contour of the liver compatible with cirrhosis. 3. Diverticulosis without diverticulitis. Normal appendix. Chest CT 01/20/23: No acute abnormalities to explain chest and back pain.
[2023-01-21 09:10] LABS: Basophils # (auto) 0.02 K/uL (0-0.2); Basophils % (auto) 0.3 %; Eosinophils # (auto) 0.03 K/uL (0-0.50); Eosinophils % (auto) 0.4 %; Hematocrit (blood only) 36.8 % (42.0-52.0); Hemoglobin 12.5 g/dl (14.0-18.0); Immature Granulocytes # (auto) 0.01 K/uL (0.01-0.20); Immature Granulocytes % (auto) 0.1 %; Lymphocytes % (auto) 26.7 %; Mean Corpuscular Hemoglobin 29.3 pg (25.0-34.0); Mean Corpuscular Volume 86.4 fL (80.0-100.0); Mean Platelet Volume 12.2 fL (9.4-12.4); Monocytes # (auto) 0.38 K/uL (0.11-0.59); Monocytes % (auto) 5.6 %; Neutrophils # (auto) 4.51 K/uL (1.40-6.50); Neutrophils % (auto) 66.9 %; Platelet Count 121 K/uL (130-400); RDW Coefficient of Variation 13.2 % (11.5-14.5); RDW Standard Deviation 40.9 fL (36.4-46.3); Red Blood Count 4.26 M/uL (4.70-6.10); White Blood Count 6.75 K/ul (4.8-10.8)
--- NOTE | 2023-01-21 09:57 | Communication Note ---
Date of Service: January 21, 2023 Pt was given Eliquis this morning. Will move EGD to Friday. Coordinated the time and got him on the schedule - so that he does not need to be reached by phone on night with his appointment time. I handed the patient a paper (hand written by myself) with his appointment day/time/location: EGD Here at [facility] FridayJanuary 24 10:30 AM No eating/drinking after 10PM. No Eliquis until after EGD.
--- NOTE | 2023-01-21 12:40 | Pharmacy Report ---
Pharmacy Glycemic Short Note 2 - Date of Service January 21, 2023 - Glycemic Short BSG Results (Last 24 hours): 01/20/23 01/20/23 01/20/23 12:51 14:24 15:41 Glucose POC Glucose 469 H* 400 H* 342 H* 01/20/23 01/20/23 01/21/23 18:12 20:45 07:16 Glucose 269 H POC Glucose 259 H 222 H 01/21/23 01/21/23 08:26 12:02 Glucose POC Glucose 239 H 259 H OUTPATIENT ANTIDIABETIC REGIMEN: * Lantus 50 units SQ BID * Aspart 12 units AC * HbA1C = 14.8% (01/21/23) ASSESSMENT: * Mr Delaney is a 52 y/o M with a PMH of IDDM who presents with esophagitis. He will undergo an EGD on Friday. * Patient's HbA1C is elevated at 14.8% therefore will go with weight-based dosing of 1 unit/kg. This is roughly 120 units/day. * Patient given Lantus 50 units this AM. Will give additional 10 units at dinner to equal 60 units today. * Novolog weight-based stress 3. PLAN FOR INPATIENT GLYCEMIC CONTROL: * Basal insulin * Lantus 60 units SQ daily * Bolus insulin * NovoLog per scale ACHS or Q6hrs while NPO * Goal Range: Low 110 mg/dL - High 140 mg/dL * Correction Factor: 15 mg/dL/unit * Nutritional / Prandial insulin per carb ratio of 1 unit per 3 grams CHO consumed
--- NOTE | 2023-01-21 12:57 | Discharge Summary ---
Date of Service January 21, 2023 Admission HPI Per Admitting Provider Jordan Delaney is a 52 year old male who presents to the ER with chest pain. He reports this has been going on intermittently for the last 2 weeks but constant for the last 4 days. Associated nausea and unable to eat or drink anything without pain. Severity 8/10 currently. No dysphagia. Odynophagia with liquids or food. He feels he has lost 12-13 lb since September. Non-positional, worse on inspiration or exertion. No associated shortness of breath or diaphoresis. He was admitted for coffee ground emesis in September 2022. He was supposed to have a EGD on follow up but reports no one called him therefore he did not have this done. He was also supposed to be taking pantoprazole 40mg PO BID since then but reports it was never prescribed. In the ER his glucose levels were elevated to 578 mg/dL. He reports this is due to running out of his Lantus as the plan was to switch him to Mounjaro. However he is having problems with his insurance paying for that and in the mean time ran out of Lantus. He plans to pickle solution maker some samples from his spud driller office. Discharge Data Allergies Allergy/AdvReac Type Severity Reaction Status Date / Time iodine Allergy Severe THROAT Verified 10/22/22 09:10 SWELLING shellfish derived Allergy Severe THROAT Verified 10/22/22 09:10 SWELLING acetaminophen Allergy Intermediate Chest Pain Verified 10/22/22 09:10 & SOB Iodinated Contrast Media Allergy Intermediate swelling Verified 10/22/22 09:10 hydrocodone AdvReac Intermediate GI ISSUES Verified 10/22/22 09:10 Plasma, Human Allergy Severe ANAPHYLAXIS Uncoded 10/22/22 09:10 Consultations 01/20/23 15:32 ED Decision to Admit Stat 01/20/23 18:21 Consult Gastroenterology Routine 01/21/23 09:07 Consult Cardiology Routine Procedures Performed Operation Date: 01/23/23 10:00 <No data on this case meets the specified criteria> Ordered Studies 01/20/23 11:40 CT abd pelvis wo con Stat 01/20/23 14:53 CT chest diagnostic wo con Stat Hospital Course (1) Chest pain: Coffee ground emesis in September and was supposed to be taking pantoprazole following this and have outpatient EGD - neither of which occurred. Suspect esophagitis/gastritis - GI cocktail, IV pantoprazole 40mg IV BID, IV famotidine 20mg IV BID, carafate 1g QID Consult gastroenterology as previously lost to follow up - he was also advised to follow up with gastroenterology for his liver cirrhosis, NPO after midnight Do not suspect ACS given pain ongoing for multiple days constantly with negative high sensitivity troponin (2) DM w/o complication type II, uncontrolled: Ran out of Lantus as he reports being switched to Mounjaro - although he is currently on total 136 units a day of insulin therefore I think he may be mistaken regarding the plan from his spud driller and the Mounjaro is in addition to the Lantus or perhaps a replacement for the Novolog? Continue Lantus 50 units BID Novolog: --Goal BSG Range: Low 110 mg/dL, High 140 mg/dL --Correction Factor: 10 mg/dL/unit --Carbohydrate ratio = 3 g/unit --BSGs ACHS if eating, q6h if npo Consult pharmacy for ongoing dosing (3) BPH (benign prostatic hyperplasia): Continue tamulosin (4) Liver cirrhosis: Suspect secondary to fulminant hepatic failure in January 2022 - advised patient to follow up with a cash processing specialist regarding this (5) GERD (gastroesophageal reflux disease): (6) Hypertension: Secondary to pain in the ER Continue his antihypertensives Stop methylphenidate Plan VTE Prophylaxis - Eliquis (history of multiple PE/DVTs on lifelong anti coagulation) Diet - clear liquids, T2DM Disposition - observation status to med/surg Discharge Plan Discharge Items Patient Disposition: Home - Self-Care Reason For Visit: ESOPHAGITIS, GASTRITIS Discharge Diagnosis: Esophagitis, Gastritis Activity: Resume your previous activity Non-emergency contact: Primary Care Provider Call non-emergency contact if: you have any medication questions Follow-up/Referrals: Edgardo Azevedo, [Primary Care Provider] - Diet: Regular Addtl Attending Provider Instructions: You have been hospitalized for an acute medical problem. During your stay at [facility], we have made an effort to correct the problem that brought you to the hospital while keeping you as comfortable as possible. Medications were used to bring your condition under control and your discharge instructions will include directions for any medications you should take after leaving the hospital. Please make sure you see your Primary Care Provider as part of your follow up plan. Recommend followup with GI to get an endoscopy this Friday in the AM. Will discharge you on 2 medications for your reflux. Pending Studies at Discharge: No Stand-Alone Forms: My [facility], Smoking Cessation Medications and DC Order Prescriptions: New pantoprazole [Protonix] 40 mg tablet,delayed release (DR/EC) 40 mg PO BID 28 Days Qty: 56 0RF sucralfate [Carafate] 1 gram tablet 1 g PO ACHS 28 Days Qty: 28 0RF Continued duloxetine 60 mg capsule,delayed release(DR/EC) 60 mg PO QAM Qty: 30 11RF Rx Instructions: TOTAL DOSE 80 MG--TAKES WITH 20 MG CAP. duloxetine 20 mg capsule,delayed release(DR/EC) 20 mg PO QAM Qty: 30 11RF Rx Instructions: TOTAL DOSE 80 MG--TAKES WITH 60 MG CAP. clonazepam 2 mg tablet 2 mg PO BID 30 Days Qty: 60 0RF methylphenidate HCl 20 mg tablet 20 mg PO BID Qty: 60 0RF Hold Instructions: Pancreatitis epinephrine 0.3 mg/0.3 mL auto-injector 0.3 mg IM DIRECTED PRN (Reason: Allergic Reaction) Rx Instructions: Insurance only covers [employer] ([id number]) insulin aspart U-100 [Novolog FlexPen U-100 Insulin] 100 unit/mL (3 mL) insulin pen 0 sliding scale dose SQ AC Rx Instructions: per sliding scale sennosides [Senokot] 8.6 mg tablet 17.2 mg PO DAILY PRN (Reason: Constipation) Rx Instructions: purchase [id number] polyethylene glycol 3350 [Miralax] 17 gram powder in packet 17 g PO DAILY PRN (Reason: Constipation) Rx Instructions: purchase [id number]-[id number] oxycodone 5 mg tablet 5 - 10 mg PO Q6H PRN (Reason: pain) Qty: 20 0RF Rx Instructions: Initial Treatment lisinopril 10 mg tablet 10 mg PO QAM tamsulosin 0.4 mg capsule 0.4 mg PO HS baclofen 10 mg tablet 10 mg PO TID PRN (Reason: Muscle Spasm) insulin aspart U-100 100 unit/mL (3 mL) insulin pen 12 unit subcut AC Rx Instructions: inject 12 units subcutaneously before meals insulin glargine [Lantus Solostar U-100 Insulin] 100 unit/mL (3 mL) insulin pen 50 unit SUBCUT BID Discontinued Eliquis 5 mg tablet 5 mg PO BID Rx Instructions: TAKE 1 TABLET BY MOUTH TWICE A DAY Discharge Orders: Discharge Order (Routine); Ordered 01/21/23 Ordered By: Naresh Calabrese Admission Data Admit Date/Time: 01/20/23 16:58 Attending Provider: Naresh Calabrese Admit Provider: Charlie Neumann Primary Care Provider: Edgardo Azevedo Other Providers: Charlie Neumann ; Thierno Ford ; Srikanth Gonzales Coding Diagnoses Chest pain R07.9 Chest pain type: unspecified DM w/o complication type II, uncontrolled E11.65 Glycemic state: with hyperglycemia BPH (benign prostatic hyperplasia) N40.0 Liver cirrhosis K74.60 GERD (gastroesophageal reflux disease) K21.9 Hypertension I10
--- NOTE | 2023-01-22 05:45 | Electrocardiogram Report ---
Test Reason : Blood Pressure : / mmHG Vent. Rate : 102 BPM Atrial Rate : 102 BPM P-R Int : 132 ms QRS Dur : 082 ms QT Int : 332 ms P-R-T Axes : 061 009 -27 degrees QTc Int : 432 ms Sinus tachycardia Nonspecific T wave abnormality Abnormal ECG When compared with ECG of 28-SEP-2022 15:23, No significant change was found Confirmed by Srikanth Gonzales ([id number]) on 01/22/2023 5:45:12 AM Referred By: REFERRED SELF Confirmed By:Srikanth Gonzales
--- NOTE | 2023-01-22 05:58 | Electrocardiogram Report ---
Test Reason : Blood Pressure : / mmHG Vent. Rate : 101 BPM Atrial Rate : 101 BPM P-R Int : 136 ms QRS Dur : 080 ms QT Int : 356 ms P-R-T Axes : 054 010 -10 degrees QTc Int : 461 ms Sinus tachycardia Nonspecific T wave abnormality Abnormal ECG When compared with ECG of 20-JAN-2023 10:13, No significant change was found Confirmed by Srikanth Gonzales ([id number]) on 01/22/2023 5:58:14 AM Referred By: REFERRED SELF Confirmed By:Srikanth Gonzales
[2023-01-22] MEDS ORDERED: LANTUS PER UNIT CHARGE SQ SCH (09:00)
== END 2023-01-21 14:34 | disposition home or self-care (01) ==
LOC: ED 10:07 → SUATTDRO 16:20 → 3N 16:20 → INTOOBSV 16:20 → 3N 18:00

== ENCOUNTER 2024-04-26 16:07 | Observation (INO) ==
--- NOTE | 2024-04-26 16:27 | ED Triage Note ---
Date of Service April 26, 2024 Provider in Triage Author: Vidhi Shannon History of Present Illness This patient was briefly evaluated while in triage. An abbreviated physical exam was performed. This patient is a 53-year-old Male who presents to the ED for evaluation of pain in right shoulder since last week. Hx pain over the last year. States also heart rate is above 100 consistently. No chest pain, reports shob. Physical Exam CONSTITUTIONAL: in no acute pain or distress, resting comfortably SKIN: pink, warm, dry CARDIAC: sinus tachycardia RESPIRATORY: in no respiratory distress, lungs clear to auscultation ABDOMEN: no TTP MSK: 5/5 strength throughout NEURO: no neuro deficits, alert and oriented x 3 Initial orders for labs and / or imaging were placed and patient was placed in the waiting area until a bed is available. Please see further documentation for the full ED course.
--- NOTE | 2024-04-26 16:44 | Emergency Department Note ---
Impression & Plan Chest pain, Elevated troponin, Pain and swelling of right upper extremity, Pain in right shoulder, History of pulmonary embolism ED Provider Note CHIEF COMPLAINT: Right shoulder pain, tachycardia, chest pain HISTORY OF PRESENTING ILLNESS: This 53-year-old male patient presents to the emergency department for evaluation of right shoulder pain, tachycardia, and chest pain. The patient states that he was playing basketball on 04/22/2024 when he thinks he tore something in the right shoulder. He states that he hyperextended it backwards and felt a pop. He had a torn labrum and rotator cuff in the left shoulder and that's what it felt like. Has had discomfort in the right shoulder since that time. He had a previous injury to this shoulder last year. He had an appointment with orthopedics today, but messed up the times and it had to get rescheduled. He now he has new onset of swelling in the right arm, chest pain, and shortness of breath since this morning. He also states that his heart rate and blood pressure have been elevated even at rest. He states that his blood pressure has been around 90/100 and his heart rate has been around 114 even at rest per his watch. He rates his discomfort as 8/10. The patient has a history of 4 previous PEs and is on Eliquis. His last PE was in 2017. He states that he does not miss doses of his Eliquis. Denies leg pain or swelling. Denies any symptoms of the left arm. The patient has a history of pancreatitis prior to having his gallbladder taken out. REVIEW OF SYSTEMS: See HPI for pertinent positives and pertinent negatives. ALLERGIES: Tylenol, hydrocodone MEDICATIONS: See below PAST MEDICAL HISTORY: See below PHYSICAL EXAM: VITALS: Vitals are noted on the nurse's note and reviewed by myself. GENERAL: Non toxic, no acute distress, non-diaphoretic. SKIN: No obvious erythema, warmth, or signs of infection of the right upper extremity. Mild edema near the right shoulder compared to the left. Capillary refill <2 sec. EYES: PERRLA. EOMI. Conjunctivae without injection, sclerae without icterus. NOSE: Patent without discharge. MOUTH: Mucous membranes moist. Uvula midline. Airway patent. NECK: Supple without nuchal rigidity. HEART: Regular rate and rhythm without murmurs gallops or rubs. LUNGS: Clear to auscultation bilaterally without wheezes, rales or rhonchi. No retractions or accessory muscle use. ABDOMEN: Positive bowel sounds x 4. Normal tympanic percussion. Soft, nontender. No masses or organomegaly. Blair sign negative. No guarding or rebound tenderness. No focal RLQ or LLQ tenderness. MUSCULOSKELETAL: The patient is tender to palpation diffusely around the right shoulder. He is also tender to palpation in the right trapezius muscles and the right biceps muscles. Decreased range of motion and strength of the right shoulder due to pain. No tenderness to palpation of the left upper extremity. No tenderness to palpation, erythema, edema, or warmth of the bilateral lower extremities. Peripheral pulses 2+ and equal in the bilateral upper and lower extremities. NEURO: Patient was alert and oriented. Normal sensation to light and sharp touch of the right upper extremity. No focal neurological deficits. DIFFERENTIAL DIAGNOSIS: Differential diagnosis includes angina, NH, pericarditis, myocarditis, aortic dissection, pleurisy, pneumothorax, PE, pneumonia, pneumomediastinum, esophagitis, esophageal spasm, GERD, perforated esophagus, perforated duodenal/gastric ulcer, pancreatitis, cholecystitis, costochondritis, musculoskeletal, bronchitis, URI, or others. ED COURSE AND MEDICAL DECISION MAKING: MONITOR: Continuous cardiac rehab nurse: Order was placed for continuous cardiac rehab nurse. Patient was placed on the cardiac rehab nurse and continuous pulse ox. Patient was noted to be in normal sinus rhythm at an initial rate of 90 bpm per my interpretation. EKG: EKG was interpreted by myself as normal sinus rhythm at 91 bpm with nonspecific T wave changes, but no acute ST or T wave changes and no significant change from his previous EKG. MEDICATIONS GIVEN: 500 mL normal saline solution bolus. Oxy IR 5 mg p.o. Aspirin 324 mg p.o. chewed. Nitroglycerin 0.4 mg sublingual. INTERPRETATION OF LABS: I interpreted the labs with full lab results as below in the lab section of this note. White blood cell count normal at 5.99. Hemoglobin low at 13.7, but higher than his previous labs. Platelet count normal at 186. Coags were normal. Creatinine elevated at 1.72. Glucose 100 and AST 43, but CMP otherwise unremarkable. Lipase slightly elevated at 173. Magnesium normal. TSH normal. High-sensitivity troponin normal at 17 with repeat high-sensitivity troponin elevated at 22.2. INTERPRETATION OF IMAGING: Imaging studies were interpreted by myself and read by radiology as per the imaging section of this note. Chest x-ray negative for acute cardiopulmonary etiology. X-ray of the right shoulder was negative for acute fracture, dislocation, or other acute abnormalities. Venous Doppler of the right upper extremity was negative for DVT or other acute abnormality. CTA of the chest and CT scan of the abdomen pelvis with IV contrast showed no evidence for PE, pneumonia, pneumothorax, or other acute cardiopulmonary etiology. The patient has a cirrhotic liver morphology, but no evidence of abnormality with his pancreas or other acute abnormalities. MDM SUMMARY: The patient was seen during a time of extreme volume and extreme acuity. Nursing triage protocols were initiated with IV lock, labs, and/or imaging studies conducted by protocol in the triage area. The patient was initially evaluated in a triage protocol room and then re-examined once they were taken back to an exam room. The patient injured the right shoulder on 04/22/2024. He believes it may be a rotator cuff or torn labrum which he has had in the left shoulder previously. However, he then started with chest pain, shortness of breath, and swelling of the right arm this morning and became concerned. The patient has a history of 4 previous PEs with his last PE in 2017. He is on Eliquis and states that he does not miss doses. The patient was given 500 mL normal saline solution bolus. The patient has had Oxy IR in the past without problems and he was given Oxy IR 5 mg p.o. for pain. The patient was initially hesitant to take aspirin due to his Eliquis use. Laboratory studies as above showed a mild anemia that was improved from previous labs. Creatinine elevated 1.72 with history of previous creatinine elevations per laboratory results. AST slightly elevated at 43, but improved from previous labs. Lipase elevated at 173 with 82 being the upper limits of normal. TSH was normal. Magnesium was normal. X-rays of the right shoulder and chest x-ray negative for acute abnormalities. Venous Doppler of the right upper extremity was negative for DVT or other acute abnormalities. CTA of the chest and CT scan of the abdomen pelvis with IV contrast showed no evidence for PE, pneumonia, or other acute cardiopulmonary etiology. It did show a known cirrhotic liver, but no other acute abnormalities. EKG and initial high-sensitivity troponin were normal. However, repeat high- sensitivity troponin went from 17-22.2. Repeat EKG showed no evidence for STEMI or other acute changes. The patient stated the pain initially improved with the oxycodone, but he was having some return of discomfort that he had been having all day. At this time the patient was agreeable to aspirin and he was given aspirin 324 mg p.o. chewed. The patient was given sublingual nitroglycerin without any change in his chest discomfort. I had a meaningful discussion about this patient with Dr. Fox who agrees with my assessment and the treatment plan. Due to the patient's chest pain with rise in his troponin, we feel the patient requires admission for trending of his troponin and further inpatient evaluation and treatment. I spoke with the on-call hospitalist who agreed to admit the patient. Please refer to their dictation for further details. The patient's care was transferred in stable condition. DIAGNOSIS: Chest pain with elevated troponin Right shoulder pain Pain and swelling of the right upper extremity History of PE Past Med/Surg History Problem List (Updated 04/26/24 @ 22:41 by Ciera Joseph PA-C) History of pulmonary embolism (Acute) Pain in right shoulder (Acute) Pain and swelling of right upper extremity (Acute) Elevated troponin (Acute) Chest pain (Acute) Hx of pancreatitis January 2022 --- resolved s/p saray choley Attention deficit disorder of adult with hyperactivity Odynophagia CKD (chronic kidney disease) (Acute) History of esophagitis (Acute) Uncontrolled diabetes mellitus with hyperglycemia (Acute) Atypical chest pain (Acute) Hypertensive urgency (Acute) Liver cirrhosis Rotator cuff tear, right Elevated PSA GERD (gastroesophageal reflux disease) BPH (benign prostatic hyperplasia) Leucocytosis (Acute) Intractable abdominal pain Adjustment disorder with mixed anxiety and depressed mood Anemia (Acute) PTSD (post-traumatic stress disorder) High anion gap metabolic acidosis Fulminant hepatic failure Thrombocytopenia Hematemesis Osteoarthritis, shoulder Osteoarthritis, knee Fatty infiltration of liver Metabolic syndrome Atypical chest pain Chest pain (Acute) Chronic back pain (Acute) Depression Anxiety Tendinitis of left rotator cuff Chronic left shoulder pain LVH (left ventricular hypertrophy) Chronic anticoagulation Vitamin D deficiency (Acute) Myalgia and myositis (Acute) Esophagitis Chronic use of opiate for therapeutic purpose (Acute) Rotator cuff syndrome of left shoulder DM w/o complication type II, uncontrolled Most recent Hgb A1C 14 01/21/23 ([place]) PT HAS PCP TAMMY TODAY TO DISCUSS Medical History Abnormal EKG Anemia Anxiety Blood clotting disorder Bowel obstruction BPH loc w urin obs/LUTS CKD (chronic kidney disease), stage III Depression Elevated LFTs Gastrointestinal hemorrhage History of alcohol abuse History of bleeding ulcers (~2014) History of coma History of liver failure History of pleural effusion History of pulmonary embolus (PE) History of recent hospitalization Hx of pancreatitis Hypertension Hypertriglyceridemia Insomnia Lesion of liver Obesity Odynophagia On anticoagulant therapy Pancreatitis PTSD (post-traumatic stress disorder) Surgical History History of cardiac cath History of colonoscopy History of ERCP History of esophagogastroduodenoscopy (EGD) Hx laparoscopic cholecystectomy (03/05/22) Hx of surgical procedure S/P arthroscopy of shoulder Family History Mother Aneurysm Other Hypertension No family history of adverse response to anesthesia Denies family history of Ovarian cancer Prostate cancer Myocardial infarction Breast cancer Colorectal cancer Social History Smoking Status: Never smoker Second Hand Exposure: No; Do You Dip or Chew Tobacco: No; Hx Alcohol Use: Yes Alcohol type: beer Hx Substance Use: No Preferred Language: Hungarian Communication Ability: Effective Visual Impairment: No Limitations Hearing Ability: Normal Heavy Cleaner Required: No Beliefs That Will Affect Care: None marital status: Single Current Living Situation: Alone Current Living Situation Comment: with a friend current occupational status: disabled Feels Safe at Home: Yes Childhood Exposure to Second-Hand Smoke: No Diet: regular Dental Care, Regularly: Yes Physical Activity Frequency: Does not Exercise Seatbelt Use: always Sunscreen Use: No Assistive Devices: None Allergies Allergies Allergy/AdvReac Type Severity Reaction Status Date / Time acetaminophen Allergy Unknown Chest Pain Verified 03/26/24 10:27 & SOB hydrocodone AdvReac Unknown GI ISSUES, Verified 03/26/24 10:27 CHEST PAIN AND SOB Home Meds Home Medications Medication Instructions Recorded Confirmed epinephrine 0.3 mg/0.3 mL 0.3 mg IM DIRECTED PRN Allergic 02/02/22 04/26/24 injection, auto-injector Reaction insulin aspart U-100 100 unit/mL 0 sliding scale dose subcut AC 02/26/22 04/26/24 (3 mL) subcutaneous pen (Novolog FlexPen U-100 Insulin aspart) polyethylene glycol 3350 17 gram 17 g PO DAILY PRN Constipation 08/06/22 04/26/24 oral powder packet (Miralax) sennosides 8.6 mg tablet (Senokot) 17.2 mg PO DAILY PRN Constipation 08/06/22 04/26/24 trazodone 50 mg tablet 50 mg PO HS 04/26/24 04/26/24 Previous Rx's Medication Instructions Recorded duloxetine 60 mg capsule,delayed 120 mg (2 x 60 mg) PO QAM #60 caps 08/07/23 release blood-glucose transmitter (Dexcom #1 ea 09/16/23 G6 Transmitter device) blood-glucose meter,continuous #1 ea 09/25/23 (Dexcom G6 Decal Cutter) tizanidine 2 mg tablet 2 mg PO Q8H PRN muscle spasticity 01/09/24 #90 tabs blood-glucose meter,continuous #1 ea 02/17/24 (Dexcom G7 Decal Cutter) blood-glucose sensor (Dexcom G7 #1 ea 02/17/24 Sensor device) insulin glargine 100 unit/mL (3 See Rx Instructions .Route 02/20/24 mL) subcutaneous pen (Lantus .COMPLEX #45 mL Solostar U-100 Insulin) pen needle, diabetic 31 gauge x #100 ea 03/05/24 5/16" (BD Ultra-Fine Short Pen Needle) buspirone 5 mg tablet 5 mg PO DAILY #60 tabs 03/11/24 semaglutide 1 mg/dose (4 mg/3 mL) 0.5 mg (0.375 mL) subcut .COMPLEX 03/26/24 subcutaneous pen injector (Ozempic) #3 mL lisinopril 10 mg tablet 10 mg PO QAM #90 tabs 04/01/24 tamsulosin 0.4 mg capsule See Rx Instructions .Route 04/09/24 .COMPLEX #30 caps blood-glucose sensor (Dexcom G6 #3 ea 04/16/24 Sensor device) alprazolam 2 mg tablet 2 mg PO BID #60 tabs 04/19/24 apixaban 5 mg tablet (Eliquis) 5 mg PO BID #60 tabs 04/19/24 blood sugar diagnostic (OneTouch #100 ea 04/19/24 Verio test strips) methylphenidate HCl 20 mg tablet 20 mg PO BID #60 tabs 04/23/24 Results & Data (ED) Vital Signs Vital Signs - 24 hr 04/26/24 16:24 04/26/24 16:28 04/26/24 18:15 Temperature 36.5 C Temperature Source Temporal Artery Scan Pulse Rate 99 H Pulse Rate [Left Apical] Pulse Rate [Right Finger] 84 Respiratory Rate 18 17 Respiratory Effort / Characteristics Non-Labored Spontaneous Non-Labored Spontaneous Non-Labored Spontaneous Respiratory Depth Normal Normal Normal Respiratory Pattern Regular Regular Regular Blood Pressure 142/84 H Blood Pressure [Right Arm] 149/99 H Blood Pressure Mean 103 Blood Pressure Mean [Right Arm] 115 Pulse Oximetry 97 97 Oxygen Delivery Method Room Air Room Air Room Air Sepsis Recent Fever Within 48 Hours No Sepsis New/Unexplained Change in Mental Status N/A Sepsis Action Taken by Nursing No Action Required 04/26/24 20:25 04/26/24 20:27 04/26/24 20:30 Temperature Temperature Source Pulse Rate 83 Pulse Rate [Left Apical] 81 Pulse Rate [Right Finger] Respiratory Rate 16 Respiratory Effort / Characteristics Non-Labored Spontaneous Respiratory Depth Normal Respiratory Pattern Regular Blood Pressure 148/98 H Blood Pressure [Right Arm] 157/109 H Blood Pressure Mean 114 Blood Pressure Mean [Right Arm] 125 Pulse Oximetry 99 Oxygen Delivery Method Room Air Sepsis Recent Fever Within 48 Hours Sepsis New/Unexplained Change in Mental Status Sepsis Action Taken by Nursing 04/26/24 20:30 04/26/24 20:36 04/26/24 20:50 Temperature Temperature Source Pulse Rate 86 90 Pulse Rate [Left Apical] Pulse Rate [Right Finger] Respiratory Rate 16 19 Respiratory Effort / Characteristics Respiratory Depth Respiratory Pattern Blood Pressure 158/103 H Blood Pressure [Right Arm] Blood Pressure Mean 118 Blood Pressure Mean [Right Arm] Pulse Oximetry 94 93 Oxygen Delivery Method Room Air Room Air Sepsis Recent Fever Within 48 Hours Sepsis New/Unexplained Change in Mental Status Sepsis Action Taken by Nursing 04/26/24 20:57 Temperature Temperature Source Pulse Rate 85 Pulse Rate [Left Apical] Pulse Rate [Right Finger] Respiratory Rate 21 Respiratory Effort / Characteristics Respiratory Depth Respiratory Pattern Blood Pressure Blood Pressure [Right Arm] Blood Pressure Mean Blood Pressure Mean [Right Arm] Pulse Oximetry 96 Oxygen Delivery Method Room Air Sepsis Recent Fever Within 48 Hours Sepsis New/Unexplained Change in Mental Status Sepsis Action Taken by Nursing Laboratory Data 04/26/24 16:46 04/26/24 16:46 Lab Results 04/26/24 04/26/24 04/26/24 Range/Units 16:46 19:00 19:05 WBC 5.99 (4.8-10.8) K/ul RBC 4.61 L (4.70-6.10) M/uL Hgb 13.7 L (14.0-18.0) g/dl Hct 40.5 L (42.0-52.0) % MCV 87.9 (80.0-100.0) fL MCH 29.7 (25.0-34.0) pg MCHC 33.8 (32.0-36.0) g/dL RDW Std Deviation 41.7 (36.4-46.3) fL RDW Coeff of Lillie 13.0 (11.5-14.5) % Plt Count 186 (130-400) K/uL MPV 12.0 (9.4-12.4) fL Immature Gran % (Auto) 0.2 % Neut % (Auto) 55.9 % Lymph % (Auto) 36.6 % [place] % (Auto) 5.3 % Eos % (Auto) 1.5 % Baso % (Auto) 0.5 % Neut # (Auto) 3.35 (1.40-6.50) K/uL Lymph # (Auto) 2.19 (1.20-3.40) K/uL [place] # (Auto) 0.32 (0.11-0.59) K/uL Eos # (Auto) 0.09 (0.00-0.50) K/uL Baso # (Auto) 0.03 (0.00-0.20) K/uL Immature Gran # (Auto) 0.01 (0.01-0.20) K/uL PT 10.7 (9.0-12.0) Seconds INR 1.0 (0.9-1.1) APTT 25 (21-31) Seconds PTT Ratio 0.9 Sodium 141 (136-145) mmol/L Potassium 3.9 (3.5-5.1) mmol/L Chloride 108 H (98-107) mmol/L Carbon Dioxide 29 (21-32) mmol/L Anion Gap 4 (3-11) BUN 12 (6-23) mg/dl Creatinine 1.72 H (0.6-1.4) mg/dl Est Cr Clr Drug Dosing 69.7 ml/min Est GFR ( Amer) 52.2 ml/min Est GFR (Non-Af Amer) 45.0 ml/min BUN/Creatinine Ratio 7.0 L (10-20) Glucose 100 H (70-99(Fasting)) mg/dl Calcium 8.8 (8.6-10.3) mg/dl Magnesium 1.7 (1.7-2.4) mg/dl Total Bilirubin 0.4 (0.2-1.0) mg/dl AST 43 H (13-39) U/L ALT 25 (7-52) U/L Alkaline Phosphatase 82 (34-104) U/L Total Creatine Kinase 802 H (30-223) U/L Troponin I High Sens 17.0 22.2 H (0-20) pg/ml Total Protein 6.3 (6.0-8.3) gm/dl Albumin 3.7 (3.4-5.0) gm/dl Globulin 2.6 (2.5-4.0) gm/dl Albumin/Globulin Ratio 1.4 (0.9-2) Triglycerides 178 H (0-150) mg/dl Lipase 173 H (11-82) U/L TSH 0.885 (0.300-4.500) uIu/ml Urine Color Yellow Urine Appearance Clear (Clear) Urine pH 5.5 (4.5-7.5) Ur Specific [place] 1.036 H (1.000-1.030) Urine Protein Negative (Negative) Urine Glucose (UA) Negative (Negative) Urine Ketones Trace H (Negative) Urine Blood Negative (Negative) Urine Nitrite Negative (Negative) Urine Bilirubin Negative (Negative) Urine Urobilinogen Negative (Negative) Ur Leukocyte Esterase Negative (Negative) Administered Medications Discontinued Medications Aspirin (Aspirin Chew 324 Mg) 324 mg PO NOW STA Stop: 04/26/24 20:33 Last Admin: 04/26/24 20:48 Dose: 324 mg Documented By: JOANNA Sodium Chloride (Nss) 500 mls @ 999 mls/hr IV .Q31M ONE Stop: 04/26/24 17:21 Last Infusion: 04/26/24 20:47 Dose: Infused Documented By: Admin: 04/26/24 16:53 Dose: 999 mls/hr Documented By: KV Ioversol (Optiray 320 125ml) 120 ml IV ONCE ONE Stop: 04/26/24 18:41 Last Admin: 04/26/24 18:40 Dose: 120 ml Documented By: PLRosi Nitroglycerin (Nitroglycerin Sl 0.4 Mg/Tab Tab) 0.4 mg SL NOW STA Stop: 04/26/24 20:12 Last Admin: 04/26/24 20:27 Dose: 0.4 mg Documented By: JUDITH Oxycodone HCl (Oxycodone Hcl Ir 5 Mg Tab (Immediate Release)) 5 mg PO NOW STA Stop: 04/26/24 16:52 Last Admin: 04/26/24 18:13 Dose: 5 mg Documented By: [facility] Imaging Data Radiologist's Impression: Chest X-Ray 04/26/24 16:27 SINGLE VIEW CHEST CLINICAL HISTORY: Atypical chest pain FINDINGS: A PA chest radiograph is compared to study dated 01/31/2023 and correlated with chest CT dated 01/20/2023. The cardiomediastinal silhouette is unremarkable. The lungs and pleural spaces are clear. No pneumothorax is seen. The bony thorax is grossly intact. Cholecystectomy clips are seen in the right upper quadrant. IMPRESSION: No active disease in the chest. ACT 112: Negative or not required by law. Electronically signed by: Kendall Dee M.D. 04/26/2024 6:05 PM Shoulder X-Ray 04/26/24 16:27 RIGHT SHOULDER 3 VIEWS CLINICAL HISTORY: Right shoulder pain. FINDINGS: 3 views of the right shoulder are compared to study dated 03/24/2023. The skeletal structures are well-mineralized. There is no radiographic evidence of fracture or dislocation. Minimal degenerative change is seen at the glenohumeral and acromioclavicular joints. The overlying soft tissues are within normal limits. The visualized right lung parenchyma appears clear. IMPRESSION: No acute bony abnormality is identified. Electronically signed by: Kendall Dee M.D. 04/26/2024 6:06 PM Chest CTA 04/26/24 16:54 CT ANGIOGRAM OF THE CHEST; CT SCAN OF THE ABDOMEN AND PELVIS WITH IV CONTRAST CLINICAL HISTORY: Atypical chest pain. Dyspnea. Upper abdominal pain. COMPARISON STUDY: Numerous prior CT scans of the chest, abdomen, and pelvis most recently dated 01/20/2023. TECHNIQUE: Following the IV administration of 120 of Optiray 320, CT angiogram of the chest is performed from the upper abdomen to the thoracic inlet utilizing the pulmonary embolus protocol. Images are reviewed in the axial, sagittal, coronal planes. 3-D MIPS images are created and assessed. Subsequently, CT scan of the abdomen and pelvis was performed from the lung bases to the proximal femora. Images are reviewed in the axial, sagittal, and coronal planes. IV contrast was administered without complication. A dose lowering technique was utilized adhering to the principles of ALARA. There is streak artifact from the right arm which could not be elevated above the chest or abdomen. CT DOSE: 2435.69 mGy.cm FINDINGS: CHEST: Thyroid: Imaged portions of the thyroid gland are normal in size and attenuation. Thoracic aorta: The thoracic aorta is normal in caliber and demonstrates standard 3-vessel arch anatomy. No dissection is seen. Pulmonary vasculature: The pulmonary trunk is normal in caliber. There are no filling defects identified in the main, lobar, or segmental pulmonary arteries to indicate pulmonary embolus. Heart: The heart is top normal in size and without pericardial effusion. Lungs and pleural spaces: The lungs and pleural spaces are clear noting dependent atelectasis. The trachea and central airways are patent. Mediastinum: There is no mediastinal lymphadenopathy. Leisa: Clear. Axillae: There is no axillary lymphadenopathy. Bony thorax: No lytic or blastic lesions are identified. ABDOMEN AND PELVIS: Liver: The contrast-enhanced liver is size and heterogeneous in attenuation. Nodularity of the surface contour indicates morphologic change of cirrhosis. There is no intrahepatic biliary ductal dilatation. The hepatic veins and portal veins are patent. Gallbladder: Surgically absent noting clips in the gallbladder fossa. Spleen: Normal in size and attenuation. Pancreas: Unremarkable. Adrenal glands: Unremarkable. Kidneys: The contrast enhanced kidneys are normal in size and without hydronephrosis. The kidneys enhance symmetrically. Abdominal vasculature: The abdominal aorta is normal in course and caliber. Bowel: There is mild to moderate colonic fecal retention. No bowel obstruction is seen. The appendix is well-visualized and normal. Peritoneum: There is no intraperitoneal free air or abdominal ascites. There is a fat-containing umbilical hernia. Lymphadenopathy: None. Pelvic viscera: The bladder, prostate, and seminal vesicles are normal as visualized. Skeletal structures: Mild sclerotic change is noted in the sacroiliac joints and pubic symphysis. Mild degenerative change is seen in the lumbar spine. No lytic or blastic lesions are seen. IMPRESSION: 1. There is no evidence of pulmonary embolus in the main, lobar, or segmental pulmonary arteries. 2. There is no airspace consolidation or pleural effusion. 3. No acute infectious or inflammatory findings are identified in the abdomen or pelvis. 4. Cirrhotic liver morphology. 5. Additional findings as above. ACT 112: Negative or not required by law. Electronically signed by: Kendall Dee M.D. 04/26/2024 6:56 PM Venous Doppler Study 04/26/24 16:54 ULTRASOUND RIGHT UPPER EXTREMITY VENOUS CLINICAL HISTORY: Right arm injury/pain. Swelling. COMPARISON STUDY: No priors. TECHNIQUE: Real-time, grayscale, and color Doppler sonography of the deep veins of the right upper extremity is performed. Compression and augmentation were utilized. FINDINGS: There is no sonographic evidence of deep venous thrombosis identified in the right upper extremity. The right internal jugular, axillary, and brachial veins are patent and normally compressible. Normal venous waveforms and augmentation are seen within the right subclavian vein. The cephalic and basilic veins are clear. The visualized radial and ulnar veins are patent. IMPRESSION: There is no sonographic evidence of deep venous thrombosis identified in the right upper extremity. ACT 112: Negative or not required by law. Electronically signed by: Kendall Dee M.D. 04/26/2024 6:01 PM Abdomen/Pelvis CT 04/26/24 17:36 CT ANGIOGRAM OF THE CHEST; CT SCAN OF THE ABDOMEN AND PELVIS WITH IV CONTRAST CLINICAL HISTORY: Atypical chest pain. Dyspnea. Upper abdominal pain. COMPARISON STUDY: Numerous prior CT scans of the chest, abdomen, and pelvis most recently dated 01/20/2023. TECHNIQUE: Following the IV administration of 120 of Optiray 320, CT angiogram of the chest is performed from the upper abdomen to the thoracic inlet utilizing the pulmonary embolus protocol. Images are reviewed in the axial, sagittal, coronal planes. 3-D MIPS images are created and assessed. Subsequently, CT scan of the abdomen and pelvis was performed from the lung bases to the proximal femora. Images are reviewed in the axial, sagittal, and coronal planes. IV contrast was administered without complication. A dose lowering technique was utilized adhering to the principles of ALARA. There is streak artifact from the right arm which could not be elevated above the chest or abdomen. CT DOSE: 2435.69 mGy.cm FINDINGS: CHEST: Thyroid: Imaged portions of the thyroid gland are normal in size and attenuation. Thoracic aorta: The thoracic aorta is normal in caliber and demonstrates standard 3-vessel arch anatomy. No dissection is seen. Pulmonary vasculature: The pulmonary trunk is normal in caliber. There are no filling defects identified in the main, lobar, or segmental pulmonary arteries to indicate pulmonary embolus. Heart: The heart is top normal in size and without pericardial effusion. Lungs and pleural spaces: The lungs and pleural spaces are clear noting dependent atelectasis. The trachea and central airways are patent. Mediastinum: There is no mediastinal lymphadenopathy. Leisa: Clear. Axillae: There is no axillary lymphadenopathy. Bony thorax: No lytic or blastic lesions are identified. ABDOMEN AND PELVIS: Liver: The contrast-enhanced liver is size and heterogeneous in attenuation. Nodularity of the surface contour indicates morphologic change of cirrhosis. There is no intrahepatic biliary ductal dilatation. The hepatic veins and portal veins are patent. Gallbladder: Surgically absent noting clips in the gallbladder fossa. Spleen: Normal in size and attenuation. Pancreas: Unremarkable. Adrenal glands: Unremarkable. Kidneys: The contrast enhanced kidneys are normal in size and without hydronephrosis. The kidneys enhance symmetrically. Abdominal vasculature: The abdominal aorta is normal in course and caliber. Bowel: There is mild to moderate colonic fecal retention. No bowel obstruction is seen. The appendix is well-visualized and normal. Peritoneum: There is no intraperitoneal free air or abdominal ascites. There is a fat-containing umbilical hernia. Lymphadenopathy: None. Pelvic viscera: The bladder, prostate, and seminal vesicles are normal as visualized. Skeletal structures: Mild sclerotic change is noted in the sacroiliac joints and pubic symphysis. Mild degenerative change is seen in the lumbar spine. No lytic or blastic lesions are seen. IMPRESSION: 1. There is no evidence of pulmonary embolus in the main, lobar, or segmental pulmonary arteries. 2. There is no airspace consolidation or pleural effusion. 3. No acute infectious or inflammatory findings are identified in the abdomen or pelvis. 4. Cirrhotic liver morphology. 5. Additional findings as above. ACT 112: Negative or not required by law. Electronically signed by: Kendall Dee M.D. 04/26/2024 6:56 PM Discharge Plan Visit Data Chief Complaint: Tachycardia Stated Complaint: RT SHOULDER MUSCLE TEAR, TACHYCARDIA/SOME CHEST P ED Provider: [facility] Midlevel Provider: Ciera Joseph Discharge Problem: Chest pain, Elevated troponin, Pain and swelling of right upper extremity, Pain in right shoulder, History of pulmonary embolism Patient Disposition: Admitted As Inpatient Condition: Good Forms Stand Alone Forms: [facility] [email or web address] Prescriptions Prescriptions: No Action duloxetine 60 mg capsule,delayed release(DR/EC) 120 mg PO QAM Qty: 60 2RF (DME) Dexcom G6 Transmitter Device See Rx Instructions .Route Qty: 1 2RF Rx Instructions: As directed (DME) Dexcom G6 Decal Cutter Misc See Rx Instructions .Route Qty: 1 0RF Rx Instructions: As directed tizanidine 2 mg tablet 2 mg PO Q8H PRN (Reason: muscle spasticity) Qty: 90 0RF (DME) Dexcom G7 Decal Cutter Misc See Rx Instructions .Route Qty: 1 0RF Rx Instructions: As directed (DME) Dexcom G7 Sensor Device See Rx Instructions .Route Qty: 1 5RF Rx Instructions: As directed insulin glargine [Lantus Solostar U-100 Insulin] 100 unit/mL (3 mL) insulin pen See Rx Instructions .ROUTE .COMPLEX Qty: 45 0RF Dose Instruction: INJECT 50 unit (0.5 mL) subcutaneously twice a day Rx Instructions: INJECT 50 unit (0.5 mL) subcutaneously twice a day (DME) pen needle, diabetic [BD Ultra-Fine Short Pen Needle] 31 gauge x 5/16" needle See Rx Instructions .Route Qty: 100 2RF Rx Instructions: As directed BID with insulin Dx E11.9 buspirone 5 mg tablet 5 mg PO DAILY Qty: 60 2RF Rx Instructions: MANAGED BY PSYCHIATRIST Seanemppraful 1 mg/dose (4 mg/3 mL) pen injector 0.5 mg subcut .COMPLEX Qty: 3 2RF Rx Instructions: once per week lisinopril 10 mg tablet 10 mg PO QAM Qty: 90 1RF tamsulosin 0.4 mg capsule See Rx Instructions .ROUTE .COMPLEX Qty: 30 5RF Dose Instruction: take 1 capsule by mouth at bedtime Rx Instructions: take 1 capsule by mouth at bedtime (DME) Dexcom G6 Sensor Device See Rx Instructions .Route Qty: 3 5RF Rx Instructions: As directed (DME) OneTouch Verio test strips Strip See Rx Instructions .Route Qty: 100 1RF Rx Instructions: As directed alprazolam 2 mg tablet 2 mg PO BID Qty: 60 0RF Eliquis 5 mg tablet 5 mg PO BID Qty: 60 5RF Patient Comments: YESTERDAY MORNING LAST DOSE methylphenidate HCl 20 mg tablet 20 mg PO BID Qty: 60 0RF Hold Instructions: Pancreatitis epinephrine 0.3 mg/0.3 mL auto-injector 0.3 mg IM DIRECTED PRN (Reason: Allergic Reaction) Rx Instructions: Insurance only covers [email or web address] ([id number]) insulin aspart U-100 [Novolog FlexPen U-100 Insulin] 100 unit/mL (3 mL) insulin pen 0 sliding scale dose SQ AC Rx Instructions: per sliding scale sennosides [Senokot] 8.6 mg tablet 17.2 mg PO DAILY PRN (Reason: Constipation) Rx Instructions: purchase myzr-dlr-ctedybj polyethylene glycol 3350 [Miralax] 17 gram powder in packet 17 g PO DAILY PRN (Reason: Constipation) Rx Instructions: purchase [id number]-nojptzv trazodone 50 mg tablet 50 mg PO HS Rx Instructions: MANAGED BY PSYCHIATRIST Referrals Referrals: Edgardo Azevedo DO [Primary Care Provider] - Discharge Problem: Chest pain Qualifiers: Chest pain type: unspecified Qualified Code(s): R07.9 - Chest pain, unspecified Pain in right shoulder Qualifiers: Chronicity: acute Qualified Code(s): M25.511 - Pain in right shoulder
[2024-04-26] MEDS: SODIUM CHLORIDE 0.9% 500 ML IV ONE (16:53)
[2024-04-26 17:30] LABS: Basophils # (auto) 0.03 K/uL (0.00-0.20); Basophils % (auto) 0.5 %; Eosinophils # (auto) 0.09 K/uL (0.00-0.50); Eosinophils % (auto) 1.5 %; Hematocrit (blood only) 40.5 % (42.0-52.0); Hemoglobin 13.7 g/dl (14.0-18.0); Immature Granulocytes # (auto) 0.01 K/uL (0.01-0.20); Immature Granulocytes % (auto) 0.2 %; Lymphocytes # (auto) 2.19 K/uL (1.20-3.40); Lymphocytes % (auto) 36.6 %; Mean Corpuscular Hemoglobin 29.7 pg (25.0-34.0); Mean Corpuscular Hgb Conc 33.8 g/dL (32.0-36.0); Mean Corpuscular Volume 87.9 fL (80.0-100.0); Monocytes # (auto) 0.32 K/uL (0.11-0.59); Monocytes % (auto) 5.3 %; Neutrophils # (auto) 3.35 K/uL (1.40-6.50); Neutrophils % (auto) 55.9 %; Platelet Count 186 K/uL (130-400); RDW Standard Deviation 41.7 fL (36.4-46.3); Red Blood Count 4.61 M/uL (4.70-6.10); White Blood Count 5.99 K/ul (4.8-10.8)
[2024-04-26 17:32] LABS: Albumin Globulin Ratio 1.4 (0.9-2); Albumin Level 3.7 gm/dl (3.4-5.0); Bilirubin,Total 0.4 mg/dl (0.2-1.0); Calcium 8.8 mg/dl (8.6-10.3); Creatinine Clr Calc Pharmacy 69.7 ml/min; Est GFR (African American) 52.2 ml/min; Globulin 2.6 gm/dl (2.5-4.0); Magnesium 1.7 mg/dl (1.7-2.4); Potassium 3.9 mmol/L (3.5-5.1); Total Protein 6.3 gm/dl (6.0-8.3)
[2024-04-26 17:47] LABS: Thyroid Stimulating Hormone 0.885 uIu/ml (0.300-4.500)
--- NOTE | 2024-04-26 18:02 | Ultrasound Report ---
ULTRASOUND RIGHT UPPER EXTREMITY VENOUS CLINICAL HISTORY: Right arm injury/pain. Swelling. COMPARISON STUDY: No priors. TECHNIQUE: Real-time, grayscale, and color Doppler sonography of the deep veins of the right upper ex tremity is performed. Compression and augmentation were utilized. FINDINGS: There is no sonographic evidence of deep venous thrombosis identified in the right upper ex tremity. The right internal jugular, axillary, and brachial veins are patent and normally compressibl e. Normal venous waveforms and augmentation are seen within the right subclavian vein. The cephalic a nd basilic veins are clear. The visualized radial and ulnar veins are patent. IMPRESSION: There is no sonographic evidence of deep venous thrombosis identified in the right upper extremity. ACT 112: Negative or not required by law. Electronically signed by: Kendall Dee M.D. 04/26/2024 6:01 PM
--- NOTE | 2024-04-26 18:07 | XRay Report ---
SINGLE VIEW CHEST CLINICAL HISTORY: Atypical chest pain FINDINGS: A PA chest radiograph is compared to study dated 01/31/2023 and correlated with chest CT gil ed 01/20/2023. The cardiomediastinal silhouette is unremarkable. The lungs and pleural spaces are romy r. No pneumothorax is seen. The bony thorax is grossly intact. Cholecystectomy clips are seen in the right upper quadrant. IMPRESSION: No active disease in the chest. ACT 112: Negative or not required by law. Electronically signed by: Kendall Dee M.D. 04/26/2024 6:05 PM
--- NOTE | 2024-04-26 18:07 | XRay Report ---
RIGHT SHOULDER 3 VIEWS CLINICAL HISTORY: Right shoulder pain. FINDINGS: 3 views of the right shoulder are compared to study dated 03/24/2023. The skeletal structure s are well-mineralized. There is no radiographic evidence of fracture or dislocation. Minimal degener ative change is seen at the glenohumeral and acromioclavicular joints. The overlying soft tissues are within normal limits. The visualized right lung parenchyma appears clear. IMPRESSION: No acute bony abnormality is identified. Electronically signed by: Kendall Dee M.D. 04/26/2024 6:06 PM
[2024-04-26 18:12] LABS: Partial Thromboplastin Ratio 0.9; Partial Thromboplastin Time 25 Seconds (21-31); Prothrombin Time 10.7 Seconds (9.0-12.0)
[2024-04-26] MEDS: oxyCODONE HCL IR 5 MG TAB (IMMEDIATE RELEASE) PO STA (18:13)
[2024-04-26] MEDS: OPTIRAY 320 125ml IV ONE (18:40)
--- NOTE | 2024-04-26 18:58 | CT Scan Report ---
CT ANGIOGRAM OF THE CHEST; CT SCAN OF THE ABDOMEN AND PELVIS WITH IV CONTRAST CLINICAL HISTORY: Atypical chest pain. Dyspnea. Upper abdominal pain. COMPARISON STUDY: Numerous prior CT scans of the chest, abdomen, and pelvis most recently dated 01/20. TECHNIQUE: Following the IV administration of 120 of Optiray 320, CT angiogram of the chest is perfor med from the upper abdomen to the thoracic inlet utilizing the pulmonary embolus protocol. Images are reviewed in the axial, sagittal, coronal planes. 3-D MIPS images are created and assessed. Subsequen tly, CT scan of the abdomen and pelvis was performed from the lung bases to the proximal femora. Imag es are reviewed in the axial, sagittal, and coronal planes. IV contrast was administered without comp lication. A dose lowering technique was utilized adhering to the principles of ALARA. There is streak artifact from the right arm which could not be elevated above the chest or abdomen. CT DOSE: 2435.69 mGy.cm FINDINGS: CHEST: Thyroid: Imaged portions of the thyroid gland are normal in size and attenuation. Thoracic aorta: The thoracic aorta is normal in caliber and demonstrates standard 3-vessel arch anato my. No dissection is seen. Pulmonary vasculature: The pulmonary trunk is normal in caliber. There are no filling defects identif ied in the main, lobar, or segmental pulmonary arteries to indicate pulmonary embolus. Heart: The heart is top normal in size and without pericardial effusion. Lungs and pleural spaces: The lungs and pleural spaces are clear noting dependent atelectasis. The tr achea and central airways are patent. Mediastinum: There is no mediastinal lymphadenopathy. Leisa: Clear. Axillae: There is no axillary lymphadenopathy. Bony thorax: No lytic or blastic lesions are identified. ABDOMEN AND PELVIS: Liver: The contrast-enhanced liver is size and heterogeneous in attenuation. Nodularity of the surfac e contour indicates morphologic change of cirrhosis. There is no intrahepatic biliary ductal dilatati on. The hepatic veins and portal veins are patent. Gallbladder: Surgically absent noting clips in the gallbladder fossa. Spleen: Normal in size and attenuation. Pancreas: Unremarkable. Adrenal glands: Unremarkable. Kidneys: The contrast enhanced kidneys are normal in size and without hydronephrosis. The kidneys enh ance symmetrically. Abdominal vasculature: The abdominal aorta is normal in course and caliber. Bowel: There is mild to moderate colonic fecal retention. No bowel obstruction is seen. The appendix is well-visualized and normal. Peritoneum: There is no intraperitoneal free air or abdominal ascites. There is a fat-containing umbi lical hernia. Lymphadenopathy: None. Pelvic viscera: The bladder, prostate, and seminal vesicles are normal as visualized. Skeletal structures: Mild sclerotic change is noted in the sacroiliac joints and pubic symphysis. Mil d degenerative change is seen in the lumbar spine. No lytic or blastic lesions are seen. IMPRESSION: 1. There is no evidence of pulmonary embolus in the main, lobar, or segmental pulmonary arteries. 2. There is no airspace consolidation or pleural effusion. 3. No acute infectious or inflammatory findings are identified in the abdomen or pelvis. 4. Cirrhotic liver morphology. 5. Additional findings as above. ACT 112: Negative or not required by law. Electronically signed by: Kendall Dee M.D. 04/26/2024 6:56 PM
[2024-04-26 19:33] LABS: Appearance Urine Clear (Clear); Bilirubin Urine Negative (Negative); Blood Urine Negative (Negative); Color Urine Yellow; Glucose Urine UA Negative (Negative); Ketones Urine Trace (Negative); Leukocyte Esterase Urine Negative (Negative); Nitrite Urine Negative (Negative); Protein Urine Negative (Negative); Specific Gravity Urine 1.036 (1.000-1.030); Urobilinogen Urine Negative (Negative); pH Urine 5.5 (4.5-7.5)
[2024-04-26 20:01] LABS: Troponin I High Sensitivity 22.2 pg/ml (0-20)
[2024-04-26] MEDS: NITROGLYCERIN SL 0.4 MG/TAB TAB SL STA (20:27)
[2024-04-26] MEDS: ASPIRIN CHEW 324 MG PO STA (20:48)
--- NOTE | 2024-04-26 20:56 | History & Physical Report ---
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 q6h as needed for pain Am CBC, BMP (2) Atypical chest pain: Plan: Patient initially presented for tachycardia around 100 bpm at rest; patient was concerned Pain radiates across the right shoulder into the chest wall; reproducible on exam Chest CTA without acute findings Troponin mildly elevated; 17-->22 on arrival Trend troponin q6h to peak Echocardiogram ordered, pending Suspect MSK at this time, but will continue to monitor via telemetry given rising troponin level (3) BRIDGETTE (acute kidney injury): Plan: BUN 12, creatinine 1.72 (baseline 1.19), and EGFR 45 Avoid nephrotoxic agents for possible; hold lisinopril for now Creatinine kinase level ordered to assess for rhabdomyolysis IVF with LR at 125 mL/hr x 2 L Recheck a.m. BMP (4) DM w/o complication type II, uncontrolled: Plan: Last A1c at 8.3% on 06/24/2023 Hold Ozempic Patient is normally on Lantus 50u daily Dose reduce Lantus to 20u BID in the setting of acute kidney injury SSI; with target BSG range 110-140mg/dL, CF 15, carb ratio 5 T2DM diet BSG ACHS Adjust regimen as needed AM A1c (5) Hx of pancreatitis: Plan: Lipase mildly elevated at 173 A/P CT revealed unremarkable pancreas Hx of pancreatitis and January 2022; resolved s/p lap [place] Triglyceride levels ordered, pending; history of high TGs in 2017 A.m. lipase (6) Liver cirrhosis: Plan: Avoid giving Tylenol for shoulder pain (7) Anxiety: Plan Disposition: Obs -admit to [facility] telemetry Full code T2DM diet VTE PPx: On Eliquis for lifelong DVT/PE PPx History of Present Illness Chief Complaint: Tachycardia Primary Care Provider: DO Jordan Aguilar is a 53-year-old male with PMH of T2DM, anxiety, depression, atypical chest pain, metabolic syndrome, PTSD, GERD, BPH, liver cirrhosis, HTN urgency, ADHD, and CKD. He presented for right-sided shoulder/chest pain and tachycardia on 04/26. Patient reports he has had ongoing right shoulder pain since he tore something in it last year; however it got acutely exacerbated last 04/22. The pain is located in his right shoulder, with radiation down the right arm into the fingers, as well as across the chest wall. He describes it as a sharp, stabbing pain that he rates 8/10 at worst. Patient does not take any pain medicine at home; he is unable to take Tylenol. The pain is worse with movements. Not worse with eating. He does have an upcoming appointment to see orthopedics. However, he came in today as his heart rate was elevated over 100 bpm at rest and he became concerned. Patient took all his regular morning medications today; no recent change in medications. He takes Eliquis for history of DVT/PE x 4; on lifelong anticoagulation. No PMH of MD or stroke. Patient denies smoking, tobacco use, recent alcohol use. Patient is hypertensive at 158/103 at time of admission; heart rate 85 bpm. ED course: Aspirin 324 mg p.o. Nitrostat 0.4 mg SL Oxycodone 5 mg p.o. NSS 500 mL IV ROS: Patient endorses night-sweats x 1 episode, right shoulder pain with radiation across the chest, intermittent nausea, and right arm swelling/pain/numbness/tingling. Patient denies fever, chills, dizziness, lightheadedness, SOB, pleuritic CP, cough, abdominal pain, vomiting, or diarrhea. Allergies Allergy/AdvReac Type Severity Reaction Status Date / Time acetaminophen Allergy Unknown Chest Pain Verified 03/26/24 10:27 & SOB hydrocodone AdvReac Unknown GI ISSUES, Verified 03/26/24 10:27 CHEST PAIN AND SOB Home Medications Medication Instructions Recorded Confirmed Type epinephrine 0.3 mg/0.3 mL 0.3 mg IM DIRECTED PRN Allergic 02/02/22 04/26/24 History injection, auto-injector Reaction insulin aspart U-100 100 unit/mL 0 sliding scale dose subcut AC 02/26/22 04/26/24 History (3 mL) subcutaneous pen (Novolog FlexPen U-100 Insulin aspart) polyethylene glycol 3350 17 gram 17 g PO DAILY PRN Constipation 08/06/22 04/26/24 History oral powder packet (Miralax) sennosides 8.6 mg tablet (Senokot) 17.2 mg PO DAILY PRN Constipation 08/06/22 04/26/24 History duloxetine 60 mg capsule,delayed 120 mg (2 x 60 mg) PO QAM #60 caps 08/07/23 04/26/24 Rx release blood-glucose transmitter (Dexcom #1 ea 09/16/23 01/29/24 Rx G6 Transmitter device) blood-glucose meter,continuous #1 ea 09/25/23 01/29/24 Rx (Dexcom G6 [employer]) tizanidine 2 mg tablet 2 mg PO Q8H PRN muscle spasticity 01/09/24 04/26/24 Rx #90 tabs blood-glucose meter,continuous #1 ea 02/17/24 Rx (Dexcom G7 [employer]) blood-glucose sensor (Dexcom G7 #1 ea 02/17/24 Rx Sensor device) insulin glargine 100 unit/mL (3 See Rx Instructions .Route 02/20/24 04/26/24 Rx mL) subcutaneous pen (Lantus .COMPLEX #45 mL Solostar U-100 Insulin) pen needle, diabetic 31 gauge x #100 ea 03/05/24 Rx 5/16" (BD Ultra-Fine Short Pen Needle) buspirone 5 mg tablet 5 mg PO DAILY #60 tabs 03/11/24 04/26/24 Rx semaglutide 1 mg/dose (4 mg/3 mL) 0.5 mg (0.375 mL) subcut .COMPLEX 03/26/24 04/26/24 Rx subcutaneous pen injector (Ozempic) #3 mL lisinopril 10 mg tablet 10 mg PO QAM #90 tabs 04/01/24 04/26/24 Rx tamsulosin 0.4 mg capsule See Rx Instructions .Route 04/09/24 04/26/24 Rx .COMPLEX #30 caps blood-glucose sensor (Dexcom G6 #3 ea 04/16/24 Rx Sensor device) alprazolam 2 mg tablet 2 mg PO BID #60 tabs 04/19/24 04/26/24 Rx apixaban 5 mg tablet (Eliquis) 5 mg PO BID #60 tabs 04/19/24 04/26/24 Rx blood sugar diagnostic (OneTouch #100 ea 04/19/24 Rx Verio test strips) methylphenidate HCl 20 mg tablet 20 mg PO BID #60 tabs 04/23/24 04/26/24 Rx trazodone 50 mg tablet 50 mg PO HS 04/26/24 04/26/24 History Past Med/Surg History Problem List (Updated 04/26/24 @ 22:41 by Ciera Joseph PA-C) History of pulmonary embolism (Acute) Pain in right shoulder (Acute) Pain and swelling of right upper extremity (Acute) Elevated troponin (Acute) Chest pain (Acute) Hx of pancreatitis January 2022 --- resolved s/p lap choley Attention deficit disorder of adult with hyperactivity Odynophagia CKD (chronic kidney disease) (Acute) History of esophagitis (Acute) Uncontrolled diabetes mellitus with hyperglycemia (Acute) Atypical chest pain (Acute) Hypertensive urgency (Acute) Liver cirrhosis Rotator cuff tear, right Elevated PSA GERD (gastroesophageal reflux disease) BPH (benign prostatic hyperplasia) Leucocytosis (Acute) Intractable abdominal pain Adjustment disorder with mixed anxiety and depressed mood Anemia (Acute) PTSD (post-traumatic stress disorder) High anion gap metabolic acidosis Fulminant hepatic failure Thrombocytopenia Hematemesis Osteoarthritis, shoulder Osteoarthritis, knee Fatty infiltration of liver Metabolic syndrome Atypical chest pain Chest pain (Acute) Chronic back pain (Acute) Depression Anxiety Tendinitis of left rotator cuff Chronic left shoulder pain LVH (left ventricular hypertrophy) Chronic anticoagulation Vitamin D deficiency (Acute) Myalgia and myositis (Acute) Esophagitis Chronic use of opiate for therapeutic purpose (Acute) Rotator cuff syndrome of left shoulder DM w/o complication type II, uncontrolled Most recent Hgb A1C 14 01/21/23 ([place]) PT HAS PCP TAMMY TODAY TO DISCUSS Medical History Abnormal EKG Anemia Anxiety Blood clotting disorder Bowel obstruction BPH loc w urin obs/LUTS CKD (chronic kidney disease), stage III Depression Elevated LFTs Gastrointestinal hemorrhage History of alcohol abuse History of bleeding ulcers (~2014) History of coma History of liver failure History of pleural effusion History of pulmonary embolus (PE) History of recent hospitalization Hx of pancreatitis Hypertension Hypertriglyceridemia Insomnia Lesion of liver Obesity Odynophagia On anticoagulant therapy Pancreatitis PTSD (post-traumatic stress disorder) Surgical History History of cardiac cath History of colonoscopy History of ERCP History of esophagogastroduodenoscopy (EGD) Hx laparoscopic cholecystectomy (03/05/22) Hx of surgical procedure S/P arthroscopy of shoulder Family History Mother Aneurysm Other Hypertension No family history of adverse response to anesthesia Denies family history of Ovarian cancer Prostate cancer Myocardial infarction Breast cancer Colorectal cancer Social History Smoking Status: Never smoker Second Hand Exposure: No; Do You Dip or Chew Tobacco: No; Hx Alcohol Use: No Hx Substance Use: No Preferred Language: Greenlandic Communication Ability: Effective Visual Impairment: No Limitations Hearing Ability: Normal Occupational Therapist Aide Required: No Beliefs That Will Affect Care: None marital status: Single Current Living Situation: Alone Current Living Situation Comment: with a friend current occupational status: disabled Other Information That Helps Us Care for You: No Feels Safe at Home: Yes Safety Concerns: Feels Safe At This Time Childhood Exposure to Second-Hand Smoke: No Diet: regular Dental Care, Regularly: Yes Physical Activity Frequency: Does not Exercise Seatbelt Use: always Sunscreen Use: No Assistive Devices: None Review of Systems Review of Systems: See HPI above Physical Exam Physical Exam: General: Mild acute physical distress secondary to right shoulder pain; anxious; pleasant affect; non-toxic appearing; cooperative; SpO2 96% on RA HEENT: normocephalic, atraumatic; no scleral icterus; PERRLA; vision and hearing grossly intact Neck: supple; no lymphadenopathy; trachea midline Skin: warm, dry without signs of tenting; no cyanosis; no rashes, bruising, le sions, or erythema noted CV: chest wall is mildly TTP substernally and on the right side; left chest wall NTP; RRR; S1/S2 normal; no murmurs/rubs/gallops; pulses intact and symmetric at radial, DP, and PT Lungs: no acute respiratory distress; symmetrical chest wall expansion; clear breath sounds across all lung méndez w/o adventitious sounds; no wheezing ABD: Soft, NTP; BS present; no rebound/guarding; no distention MSK: Right shoulder is TTP; edge blacker strength 5/5 bilaterally, but he reports this does lead to pain in the right shoulder; no tics or fasciculations; no edema noted in the LEs b/l, nonerythematous Neuro: A&Ox3; normal mood and affect; fluent speech; no focal deficits; sensation grossly intact in the LEs b/l Results & Data Results & Data Vital Signs (Past 12 Hours) Vital Signs Temp Pulse Pulse Pulse Resp BP BP 04/26/24 20:27 81 16 157/109 H 04/26/24 20:25 83 04/26/24 18:15 84 17 149/99 H 04/26/24 16:28 04/26/24 16:24 36.5 C 99 H 18 142/84 H Pulse Ox O2 Del Method 04/26/24 20:27 99 Room Air 04/26/24 20:25 04/26/24 18:15 97 Room Air 04/26/24 16:28 Room Air 04/26/24 16:24 97 Room Air Laboratory Results Abnormal lab results 04/26/24 04/26/24 04/26/24 Range/Units 16:46 19:00 19:05 RBC 4.61 L (4.70-6.10) M/uL Hgb 13.7 L (14.0-18.0) g/dl Hct 40.5 L (42.0-52.0) % Chloride 108 H (98-107) mmol/L Creatinine 1.72 H (0.6-1.4) mg/dl BUN/Creatinine Ratio 7.0 L (10-20) Glucose 100 H (70-99(Fasting)) mg/dl AST 43 H (13-39) U/L Troponin I High Sens 22.2 H (0-20) pg/ml Lipase 173 H (11-82) U/L Ur Specific [place] 1.036 H (1.000-1.030) Urine Ketones Trace H (Negative) Diagnostic Findings Chest X-Ray 04/26/24 16:27 SINGLE VIEW CHEST CLINICAL HISTORY: Atypical chest pain FINDINGS: A PA chest radiograph is compared to study dated 01/31/2023 and correlated with chest CT dated 01/20/2023. The cardiomediastinal silhouette is unremarkable. The lungs and pleural spaces are clear. No pneumothorax is seen. The bony thorax is grossly intact. Cholecystectomy clips are seen in the right upper quadrant. IMPRESSION: No active disease in the chest. ACT 112: Negative or not required by law. Electronically signed by: Kendall Dee M.D. 04/26/2024 6:05 PM Shoulder X-Ray 04/26/24 16:27 RIGHT SHOULDER 3 VIEWS CLINICAL HISTORY: Right shoulder pain. FINDINGS: 3 views of the right shoulder are compared to study dated 03/24/2023. The skeletal structures are well-mineralized. There is no radiographic evidence of fracture or dislocation. Minimal degenerative change is seen at the glenohumeral and acromioclavicular joints. The overlying soft tissues are within normal limits. The visualized right lung parenchyma appears clear. IMPRESSION: No acute bony abnormality is identified. Electronically signed by: Kendall Dee M.D. 04/26/2024 6:06 PM Chest CTA 04/26/24 16:54 CT ANGIOGRAM OF THE CHEST; CT SCAN OF THE ABDOMEN AND PELVIS WITH IV CONTRAST CLINICAL HISTORY: Atypical chest pain. Dyspnea. Upper abdominal pain. COMPARISON STUDY: Numerous prior CT scans of the chest, abdomen, and pelvis most recently dated 01/20/2023. TECHNIQUE: Following the IV administration of 120 of Optiray 320, CT angiogram of the chest is performed from the upper abdomen to the thoracic inlet utilizing the pulmonary embolus protocol. Images are reviewed in the axial, sagittal, coronal planes. 3-D MIPS images are created and assessed. Subsequently, CT scan of the abdomen and pelvis was performed from the lung bases to the proximal femora. Images are reviewed in the axial, sagittal, and coronal planes. IV contrast was administered without complication. A dose lowering technique was utilized adhering to the principles of ALARA. There is streak artifact from the right arm which could not be elevated above the chest or abdomen. CT DOSE: 2435.69 mGy.cm FINDINGS: CHEST: Thyroid: Imaged portions of the thyroid gland are normal in size and attenuation. Thoracic aorta: The thoracic aorta is normal in caliber and demonstrates standard 3-vessel arch anatomy. No dissection is seen. Pulmonary vasculature: The pulmonary trunk is normal in caliber. There are no filling defects identified in the main, lobar, or segmental pulmonary arteries to indicate pulmonary embolus. Heart: The heart is top normal in size and without pericardial effusion. Lungs and pleural spaces: The lungs and pleural spaces are clear noting dependent atelectasis. The trachea and central airways are patent. Mediastinum: There is no mediastinal lymphadenopathy. Leias: Clear. Axillae: There is no axillary lymphadenopathy. Bony thorax: No lytic or blastic lesions are identified. ABDOMEN AND PELVIS: Liver: The contrast-enhanced liver is size and heterogeneous in attenuation. Nodularity of the surface contour indicates morphologic change of cirrhosis. There is no intrahepatic biliary ductal dilatation. The hepatic veins and portal veins are patent. Gallbladder: Surgically absent noting clips in the gallbladder fossa. Spleen: Normal in size and attenuation. Pancreas: Unremarkable. Adrenal glands: Unremarkable. Kidneys: The contrast enhanced kidneys are normal in size and without hydronephrosis. The kidneys enhance symmetrically. Abdominal vasculature: The abdominal aorta is normal in course and caliber. Bowel: There is mild to moderate colonic fecal retention. No bowel obstruction is seen. The appendix is well-visualized and normal. Peritoneum: There is no intraperitoneal free air or abdominal ascites. There is a fat-containing umbilical hernia. Lymphadenopathy: None. Pelvic viscera: The bladder, prostate, and seminal vesicles are normal as visualized. Skeletal structures: Mild sclerotic change is noted in the sacroiliac joints and pubic symphysis. Mild degenerative change is seen in the lumbar spine. No lytic or blastic lesions are seen. IMPRESSION: 1. There is no evidence of pulmonary embolus in the main, lobar, or segmental pulmonary arteries. 2. There is no airspace consolidation or pleural effusion. 3. No acute infectious or inflammatory findings are identified in the abdomen or pelvis. 4. Cirrhotic liver morphology. 5. Additional findings as above. ACT 112: Negative or not required by law. Electronically signed by: Kendall Dee M.D. 04/26/2024 6:56 PM Venous Doppler Study 04/26/24 16:54 ULTRASOUND RIGHT UPPER EXTREMITY VENOUS CLINICAL HISTORY: Right arm injury/pain. Swelling. COMPARISON STUDY: No priors. TECHNIQUE: Real-time, grayscale, and color Doppler sonography of the deep veins of the right upper extremity is performed. Compression and augmentation were utilized. FINDINGS: There is no sonographic evidence of deep venous thrombosis identified in the right upper extremity. The right internal jugular, axillary, and brachial veins are patent and normally compressible. Normal venous waveforms and augmen tation are seen within the right subclavian vein. The cephalic and basilic veins are clear. The visualized radial and ulnar veins are patent. IMPRESSION: There is no sonographic evidence of deep venous thrombosis identified in the right upper extremity. ACT 112: Negative or not required by law. Electronically signed by: Kendall Dee M.D. 04/26/2024 6:01 PM Abdomen/Pelvis CT 04/26/24 17:36 CT ANGIOGRAM OF THE CHEST; CT SCAN OF THE ABDOMEN AND PELVIS WITH IV CONTRAST CLINICAL HISTORY: Atypical chest pain. Dyspnea. Upper abdominal pain. COMPARISON STUDY: Numerous prior CT scans of the chest, abdomen, and pelvis most recently dated 01/20/2023. TECHNIQUE: Following the IV administration of 120 of Optiray 320, CT angiogram of the chest is performed from the upper abdomen to the thoracic inlet utilizing the pulmonary embolus protocol. Images are reviewed in the axial, sagittal, coronal planes. 3-D MIPS images are created and assessed. Subsequently, CT scan of the abdomen and pelvis was performed from the lung bases to the proximal femora. Images are reviewed in the axial, sagittal, and coronal planes. IV contrast was administered without complication. A dose lowering technique was utilized adhering to the principles of ALARA. There is streak artifact from the right arm which could not be elevated above the chest or abdomen. CT DOSE: 2435.69 mGy.cm FINDINGS: CHEST: Thyroid: Imaged portions of the thyroid gland are normal in size and attenuation. Thoracic aorta: The thoracic aorta is normal in caliber and demonstrates pieter dard 3-vessel arch anatomy. No dissection is seen. Pulmonary vasculature: The pulmonary trunk is normal in caliber. There are no filling defects identified in the main, lobar, or segmental pulmonary arteries to indicate pulmonary embolus. Heart: The heart is top normal in size and without pericardial effusion. Lungs and pleural spaces: The lungs and pleural spaces are clear noting dependent atelectasis. The trachea and central airways are patent. Mediastinum: There is no mediastinal lymphadenopathy. Leisa: Clear. Axillae: There is no axillary lymphadenopathy. Bony thorax: No lytic or blastic lesions are identified. ABDOMEN AND PELVIS: Liver: The contrast-enhanced liver is size and heterogeneous in attenuation. Nodularity of the surface contour indicates morphologic change of cirrhosis. There is no intrahepatic biliary ductal dilatation. The hepatic veins and portal veins are patent. Gallbladder: Surgically absent noting clips in the gallbladder fossa. Spleen: Normal in size and attenuation. Pancreas: Unremarkable. Adrenal glands: Unremarkable. Kidneys: The contrast enhanced kidneys are normal in size and without hydronephrosis. The kidneys enhance symmetrically. Abdominal vasculature: The abdominal aorta is normal in course and caliber. Bowel: There is mild to moderate colonic fecal retention. No bowel obstruction is seen. The appendix is well-visualized and normal. Peritoneum: There is no intraperitoneal free air or abdominal ascites. There is a fat-containing umbilical hernia. Lymphadenopathy: None. Pelvic viscera: The bladder, prostate, and seminal vesicles are normal as visualized. Skeletal structures: Mild sclerotic change is noted in the sacroiliac joints and pubic symphysis. Mild degenerative change is seen in the lumbar spine. No lytic or blastic lesions are seen. IMPRESSION: 1. There is no evidence of pulmonary embolus in the main, lobar, or segmental pulmonary arteries. 2. There is no airspace consolidation or pleural effusion. 3. No acute infectious or inflammatory findings are identified in the abdomen or pelvis. 4. Cirrhotic liver morphology. 5. Additional findings as above. ACT 112: Negative or not required by law. Electronically signed by: Kendall Dee M.D. 04/26/2024 6:56 PM ECG Additional Comments: ECG revealed NSR at 82 bpm; QTc 441 Code Status & VTE Plan Code Status Full code VTE Prophylaxis Plan VTE Prophylaxis will be ordered: Yes Supervising Physician Co-Signing Physician Notes Attending addendum: I have physically seen this patient, have supervised the TAMMY's activities, and agree with the H&P unless as otherwise noted. Assessment and Plan: Atypical chest pain/hypertension- The patient will be admitted to telemetry for serial cardiac enzymes, serial EKG's, cardiac rhythm monitoring and a 2-D echocardiogram with Dopplers. Patient reports pain radiating across right shoulder and into the chest wall CT angiography chest PE protocol is negative Initial troponin 17 with follow-up 22.2 Acute kidney injury superimposed on CKD- Creatinine 1.72 on admission, with base 1.19 Holding semaglutide and lisinopril IV fluids as noted Recheck laboratories in a.m. Right shoulder pain- History of previous injury 1 year ago, with recurrent injury last week History of left shoulder surgery for similar incident Order MRI of right shoulder Diabetes mellitus- Hold semaglutide/Ozempic Adjustment in glargine as noted Accu-Cheks with SSI Check hemoglobin A1c Remaining orders and notations as noted PG Care Time/CCT Total # of Minutes Spent Total Time Spent with Patient: Total time spent is greater than 50% in coordination of care (as documented) at patient's floor/unit and/or counseling patient: Coding [place] [address] INT INP/OBS CARE MIN Patient Type Established Medical Decision Making High Complexity Diagnoses Rotator cuff tear, right M75.101 Atypical chest pain R07.89 BRIDGETTE (acute kidney injury) N17.9 Uncontrolled type 2 diabetes mellitus with hyperglycemia E11.65 Glycemic state: with hyperglycemia Hx of pancreatitis Z87.19 Liver cirrhosis K74.60 Anxiety F41.9 (4) DM w/o complication type II, uncontrolled Glycemic state: with hyperglycemia Qualified Code(s): E11.65 - Type 2 diabetes mellitus with hyperglycemia
[2024-04-26] MEDS: LACTATED RINGER'S 1,000 ML IV SCH (23:32)
[2024-04-26] MEDS ORDERED: oxyCODONE HCL IR 5 MG TAB (IMMEDIATE RELEASE) PO PRN (23:48)
[2024-04-27] MEDS ORDERED: CARBOHYDRATES FOR HYPOGLYCEMIA PO PRN (00:12)
[2024-04-27] MEDS ORDERED: SENNA 8.6 MG TAB PO PRN (00:12)
[2024-04-27] MEDS ORDERED: DEXTROSE 50% 50 ML SYRINGE IV PRN (00:12)
[2024-04-27] MEDS ORDERED: GLUCOSE 40% GEL 15 GM TUBE PO PRN (00:12)
[2024-04-27] MEDS ORDERED: GLUCOSE 10 TAB/TUBE PO PRN (00:12)
[2024-04-27] MEDS ORDERED: POLYETHYLENE (MIRALAX) 17 GM PACK PO PRN (00:12)
[2024-04-27] MEDS ORDERED: tiZANidine HCL 4 MG TABLET PO PRN (00:12)
[2024-04-27] MEDS ORDERED: GLUCAGON FOR INJ 1 MG VIAL SQ PRN (00:12)
[2024-04-27] MEDS: oxyCODONE HCL IR 5 MG TAB (IMMEDIATE RELEASE) PO PRN ×3 (00:46→14:50)
[2024-04-27] MEDS: traZODone HCL 50 MG TAB PO SCH (00:46)
[2024-04-27] MEDS: ALPRAZolam 0.5 MG TABLET PO SCH (00:46)
[2024-04-27] MEDS: TAMSULOSIN HCL 0.4 MG CAP PO SCH (01:37)
--- OUTSIDE RECORDS SUMMARY | 2024-04-27 04:50 | External Medical Summary | Summary of Care ---
Author Name Unknown Organization [facility] Address [address] [place] [address] Phone [phone] Care Team Providers Care Developmental Services Worker Name Role Phone Edgardo Azevedo DO Primary Care Provider Encounter Details Date Type Department Care Team (Late st Contact Info) Description 04/21/2024 Telephone [facility] [address] [facility] [address] Darren Garnett DO [address] [facility] [place] [id number] Allergies Active Allergy Reactions Criticality Noted Date Comments Iodine 10/11/2018 Plasma, Human Itching 10/22/2014 Body swelling and itchiness with blood transfusion Shellfish Allergy Hives 04/09/2013 Acetaminophen 01/29/2022 Per patient report documented as of this encounter (statuses as of 04/21/2024) Medications Medication Sig Dispensed Refills Start Date End Date Status Apixaban 5 MG Oral Tablet (Eliquis) Take by mouth 5 mg in the morning AND 5 mg before bedtime. Active clonazePAM 2 MG Oral Tablet (KlonoPIN) Take by mouth 2 mg in the morning AND 2 mg before bedtime. Active Diclofenac Sodium 1 % External Gel (Voltaren) Apply topically to affected area 2 g 4 times a day . Active EPINEPHrine 0.3 MG/0.3ML Injection Solution Prefilled Syringe Inject as directed 0.3 mg as needed . Active insulin aspart 100 UNIT/ML SC SOPN Inject under the skin 12 Units three times a day with meals . Active Insulin Glargine 100 UNIT/ML Subcutaneous Solution Pen-injector (Lantus) Inject under the skin 50 Units in the morning AND 50 Units before bedtime. Active Methylphenidate HCl 20 MG Oral Tablet (Ritalin) Take by mouth 20 mg in the morning AND 20 mg before bedtime. Active documented as of this encounter (statuses as of 04/21/2024) Active Problems Problem Noted Date Diagnosed Date Drug-induced liver injury 01/24/2022 Hepatic steatosis 01/24/2022 Diabetes mellitus type 2, insulin dependent 01/11 History of pulmonary embolism 01/24/2022 BRIDGETTE (acute kidney injury) 01/24/2022 ATN (acute tubular necrosis) 01/22/2022 Coagulopathy 01/21/2022 Hepatorenal syndrome 01/20/2022 TERMINATED MEDICATION USAGE AGREEMENT 05/18/2015 Chronic chest pain 04/18/2015 Prediabetes 10/23/2014 Overview: 10/27 a1c 5.8 Esophageal ulcer 06/24/2014 Overview: 11/21/14 EGD repeat. Path esophagitis Ulcer healed 06/24/14 scope/epinephrine injected [facility] Elevated CK 03/17/2014 Insomnia 11/30/2013 History of blood clots 11/10/2013 Overview: 2 PEs Routine general medical exam ination at a health care facility 08/26/2013 Overview: 05/17/15 Med use agreement cancelled. 07/26 Gluc 83, Cr 1.4 @[facility]. 04/25 Cr 1.56 @[facility] ck if albumin is low--though truthfully if itis will simply tell us he has inflammation (which we know he does). You could repeat spot prot/creat ratio>>he did have some protein last summer but negative f/u study. 2012 cardiac cath--WNL LDL 171 08/25 Lipids [facility] TC 236, LDL 174, HDL 36, TG 131 08/25 [facility] admit-NM stress WNL, 07/25 TTE WNL 06/[address] [facility] fatty liver otherwise WNl Hx stressors re: criminal charges, custody issues, not working due to illness Kidney disease, chronic, stage III (GFR 30-59 ml /min) 04/09/2013 Overview: 02/22 renal US WNL [facility] Hypertension goal BP (blood pressure) < 140/90 0 04/09/2013 Anxiety 04/09/2013 Other pulmonary embolism and infarction 03/23/20 13 Overview: 2008, 2012 (PE on CT with neg D-dimer) PTSD (post-traumatic stress disorder) Depression Overview: 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 No hx SI documented as of this encounter (statuses as of 04/21/2024) Resolved Problems Problem Noted Date Diagnosed Date Resolved Date Anuria 01/24/2022 02/01/2022 Acute hepatic encephalopathy 01/21/2022 02/01/2022 Acute liver failure without hepatic coma 01/20/2022 02/01/2022 Acute respiratory failure with hypercapnia 01/20/2022 02/01/2022 MEDICATION USE AGREEMENT 04/04/201502/2015 documented as of this encounter (statuses as of 04/21/2024) Immunizations Name Administration Dates Next Due COVID-19 mRNA, LNP-s, No Pre serve, 2-Dose Series (Aveillant) 10/04/2021,01/11/2021,12/11/2020 Seasonal Influenza, Split, I IV3, With Preserve, Inj 07/01/2014,08/23/2013 TDAP, Age 7 and older, IM (Adacel) 08/13/2009 documented as of this encounter Social History Tobacco Use Types Packs/Day Years Used Date Smoking Tobacco: Never Smokeless Tobacco: Never Alcohol Use Standard Drinks/Week Comments No 0 (1 standard drink = 0.6 oz pur e alcohol) Utilities Answer Date Recorded Do you have trouble paying y our heating, water, or electric bill? (Adult - for ages 18 years and over) Not on file 03/30/2024 Is your family able to pay t he heat, water, or electric bill? (Household - for ages 0-17 years) Not on file 03/30/2024 Does your family have access to good internet? (Household - for ages 0-17 years) Not on file 03/30/2024 Social Connections Answer Date Recorded How often do you feel lonely or isolated from those around you? (Adult - for ages 18 years and over) Not on file 03/30/2024 Sex and Gender Information Value Date Recorded Sex Assigned at Not on file Gender Identity Not on file Sexual Orientation Not on file Job Start Date Occupation Industry Not on file Not on file Not on file documented as of this encounter Miscellaneous Notes * Telephone Encounter - Lila Rutledge MED ASSIST - 04/21/2024 3:42 PM EDT Called and left message for patient to return call. * Telephone Encounter - Darren Garnett DO - 04/21/2024 8:41 AM EDT Please call patient and have him arrived 30 minutes early for x-rays. Please gather any additional information if able. documented in this encounter Plan of Treatment Upcoming Encounters Date Type Department Care Team (Late st Contact Info) Description 04/26/2024 12:30 PM EDT [facility] [place] [address] Darren Garnett DO [address] [place] [address] Health Maintenance Due Date Last Done Comments Pneumococcal Vaccine: Pediatrics (0 to 5 Years) and At-Risk Patients (6 to 64 Years) (1 of 2 - PCV) 1978 Diabetic Eye Exam 1990 Diabetic Foot Exam 1990 Hepatitis B Vaccine (1 of 3 - 19+ 3-dose series) 1991 Albumin/Creatinine Ratio 04/29/2015 04/29/2014 Depression Monitoring 03/08/2016 03/08/2015 Cologuard 2017 Fecal Occult Blood Test 2017 Sigmoidoscopy 2017 DTaP,Tdap,and Td Vaccines (2 - Td or Tdap) 08/13/2019 08/13/2009 Zoster Vaccines (1 of 2) 2022 HbA1c 07/23/2022 01/21/2022, 01/11, 10/22/2014 GFR 08/07/2022 02/05/2022, 01/12, 02/01/2022, Additional history exists CKD HGB USE SMARTSET 66386 02/05/202302/05, 02/05/2022, 02/02/2022, Additional history exists CKD PHOS USE SMARTSET 99195 02/05/202301/12, 02/02/2022, 02/01/2022, Additional history exists Colonoscopy 04/23/2023 04/23/2013, 04/23/2013 Colorectal Cancer Screening 04/23/2023 COVID-19 Vaccine ( season) 2023 10/04/2021, 01/11/2021, 12/11/2020 Influenza Vaccine (FLU shot) (#1) 2024 07/01/2014, 09/12/2013, 08/23/2013 Lipid Panel 01/21/2027 01/21/2022, 07/13, 10/22/2014, Additional history exists Hepatitis C Screening Completed 01/20/2022, 013 HPV (Gardasil) Vaccine Aged Out No lo nger eligible based on patient's age to complete this topic MENINGOCOCCAL (MENACTRA/MENVEO) Aged Out No longer eligible based on patient's age to complete this topic documented as of this encounter Medical Devices Not on filedocumented as of this encounter Advance Directives * Full Code (Latest Code Status on File) Date Activated Date Inactivated Comments 01/19/2022 9:27 PM 02/02/2022 4:59 PM This order re flects the patients wishes and were consensually agreed upon. Care Teams Developmental Services Worker Relationship Specialty Start Date End Date Edgardo Azevedo DO [address] [place] [place] [address] PCP - General Family Medicine 10/11/18 documented as of this encounter
--- NOTE | 2024-04-27 05:28 | Magnetic Resonance Report ---
Exam(s): MRI RIGHT SHOULDER Without Contrast EXAM: MR Right Upper Extremity Without Intravenous Contrast, Shoulder CLINICAL HISTORY: Reason for exam: Rotator cuff injury. TECHNIQUE: Multiplanar magnetic resonance images of the right shoulder without intravenous contrast. COMPARISON: No relevant prior studies available. FINDINGS: TENDONS: Supraspinatus: Mild supraspinatus tendinosis, with interstitial degeneration at the footprint measuring approximately 5 mm. Mild bursal surface fraying. Mild subacromial-subdeltoid bursitis. Moderate degeneration of the acromioclavicular joint. Infraspinatus: Unremarkable. Subscapularis: Mild infraspinatus and subscapularis tendinosis, without tear. Teres minor: Unremarkable. Biceps brachii, long head: Unremarkable. Muscles: Unremarkable. Cartilage: Grade 2 chondral degeneration of the humeral head articular cartilage. Glenoid labrum: Unremarkable. No tear. IMPRESSION: Mild supraspinatus tendinosis, with interstitial degeneration at the footprint measuring approximately 5 mm. Mild bursal surface fraying. Mild subacromial-subdeltoid bursitis. Moderate degeneration of the acromioclavicular joint. Electronically signed by: Don Harrell MD 04/27/24 05:27 AM
[2024-04-27 07:17] LABS: Troponin I High Sensitivity 22.9 pg/ml (0-20)
[2024-04-27 07:50] LABS: Estimated Average Glucose 183 mg/dl
[2024-04-27] MEDS: busPIRone 5 MG TAB PO SCH (08:32)
[2024-04-27] MEDS: APIXABAN 5 MG TABLET PO SCH (08:32)
[2024-04-27] MEDS: DULoxetine HCL 60 MG CAP PO SCH (08:32)
[2024-04-27 08:39] LABS: Calcium 7.9 mg/dl (8.6-10.3); Creatinine Clr Calc Pharmacy 83.4 ml/min; Est GFR (African American) 64.7 ml/min; Est GFR (Non-African American) 55.8 ml/min; Magnesium 1.8 mg/dl (1.7-2.4); Potassium 3.8 mmol/L (3.5-5.1)
[2024-04-27] MEDS ORDERED: ALPRAZolam 0.5 MG TABLET PO SCH (09:00)
[2024-04-27] MEDS: METHYLPHENIDATE HCL 10 MG TABLET PO SCH ×2 (09:01→14:13)
[2024-04-27] MEDS: LANTUS PER UNIT CHARGE SQ SCH ×2 (09:02→21:29)
[2024-04-27] MEDS: INSULIN ASPART PER UNIT CHARGE SC SCH (09:02)
--- NOTE | 2024-04-27 11:01 | Electrocardiogram Report ---
Test Reason : Blood Pressure : / mmHG Vent. Rate : 091 BPM Atrial Rate : 091 BPM P-R Int : 140 ms QRS Dur : 086 ms QT Int : 346 ms P-R-T Axes : 050 015 -23 degrees QTc Int : 425 ms Normal sinus rhythm Nonspecific T wave abnormality Abnormal ECG When compared with ECG of 31-JAN-2023 08:11, No significant change was found Confirmed by Nasim Gunn ([id number]) on 04/27/2024 11:00:52 AM Referred By: REFERRED SELF Confirmed By:Nasim Gunn
--- NOTE | 2024-04-27 11:09 | Electrocardiogram Report ---
Test Reason : Blood Pressure : / mmHG Vent. Rate : 082 BPM Atrial Rate : 082 BPM P-R Int : 146 ms QRS Dur : 088 ms QT Int : 378 ms P-R-T Axes : 057 006 -03 degrees QTc Int : 441 ms Normal sinus rhythm Nonspecific ST and T wave abnormality Abnormal ECG When compared with ECG of 26-APR-2024 16:43, (unconfirmed) No significant change was found Confirmed by Nasim Gunn ([id number]) on 04/27/2024 11:09:15 AM Referred By: REFERRED SELF Confirmed By:Nasim Gunn
--- NOTE | 2024-04-27 11:40 | XCELERA ---
[id number] \\[id number]
[2024-04-27] MEDS ORDERED: oxyCODONE HCL IR 5 MG TAB (IMMEDIATE RELEASE) PO PRN ×2 (12:57)
[2024-04-27] MEDS: SODIUM CHLORIDE 0.9% 1,000 ML IV SCH (14:13)
--- NOTE | 2024-04-27 14:39 | Hospitalist Progress Note ---
Date of Service April 27, 2024 Assessment & Plan (1) Rotator cuff tear, right: Plan: Patient injured his shoulder 1 year ago, but acutely exacerbated on 04/22 MRI of right shoulder reviewed. Consult orthopedics Patient is asking for higher dose of oxycodone, which has been ordered. (2) Atypical chest pain: Plan: Patient initially presented for tachycardia around 100 bpm at rest; patient was concerned Pain radiates across the right shoulder into the chest wall; reproducible on exam Chest CTA without acute findings Troponin mildly elevated; 17-->22 on arrival. Has remained flat. Echocardiogram unremarkable Suspect MSK at this time Will discontinue monitor, transfer to [facility]. (3) BRIDGETTE (acute kidney injury): Plan: BUN 12, creatinine 1.72 (baseline 1.19), and EGFR 45 on admission With IV fluids, creatinine came down from 1.7-1.4. Patient says that he has been playing basketball out in the heat and could be dehydrated. Avoid nephrotoxic agents for possible; hold lisinopril for now CK in the 800s. Continue further hydration with IV fluid normal saline at 125 mL an hour Recheck a.m. BMP (4) DM w/o complication type II, uncontrolled: Plan: Last A1c at 8.3% on 06/24/2023 Hold Ozempic Patient is normally on Lantus 50u daily Dose reduced Lantus to 20u BID in the setting of acute kidney injury But today is hypoglycemic in the 50s Will further reduce dose to 12 units twice daily SSI; with target BSG range 110-140mg/dL, CF 15, carb ratio 5 T2DM diet BSG ACHS Adjust regimen as needed A1c 8 (5) Hx of pancreatitis: Plan: Lipase mildly elevated at 173 A/P CT revealed unremarkable pancreas Hx of pancreatitis and January 2022; resolved s/p lap [place] Triglyceride levels only mildly elevated at 178 Lipase today is 106. No abdominal pain (6) Liver cirrhosis: Plan: Avoid giving Tylenol for shoulder pain (7) Anxiety: Plan Full code T2DM diet VTE PPx: On Eliquis for lifelong DVT/PE PPx Admission and Anticipated Discharge Date Admission Date: April 26, 2024 Subjective Patient complains of severe right shoulder pain specially when he moves the shoulder. He is not able to raise his arm above the level due to pain restriction. Review of Systems Review of Systems: All systems reviewed & are unremarkable except as noted in Subjective Physical Exam Physical Exam: General: Awake, conversant Heart: S1, S2/regular rate and rhythm, no murmur rubs or gallops Lungs: Clear to auscultation bilaterally. Normal effort Abdomen: Soft/nontender/nondistended. No hepatosplenomegaly Extremities: No clubbing/cyanosis. No edema Behavior: Appropriate, cooperative Results & Data Results & Data Vital Signs (Past 12 Hours) Vital Signs Temp Pulse Pulse Pulse Resp BP Pulse Ox 04/27/24 11:20 37.1 C 90 18 138/83 97 04/27/24 07:38 36.5 C 86 18 114/73 97 04/27/24 07:24 81 04/27/24 03:00 36.6 C 90 16 119/67 94 O2 Del Method 04/27/24 11:20 Room Air 04/27/24 07:38 Room Air 04/27/24 07:24 04/27/24 03:00 Room Air Laboratory Results Abnormal lab results 04/26/24 04/26/24 04/26/24 Range/Units 16:46 19:00 19:05 RBC 4.61 L (4.70-6.10) M/uL Hgb 13.7 L (14.0-18.0) g/dl Hct 40.5 L (42.0-52.0) % Chloride 108 H (98-107) mmol/L Creatinine 1.72 H (0.6-1.4) mg/dl BUN/Creatinine Ratio 7.0 L (10-20) Glucose 100 H (70-99(Fasting)) mg/dl POC Glucose (70-99) mg/dl Hemoglobin A1c (4.5-5.6) % Calcium (8.6-10.3) mg/dl AST 43 H (13-39) U/L Total Creatine Kinase 802 H (30-223) U/L Troponin I High Sens 22.2 H (0-20) pg/ml Triglycerides 178 H (0-150) mg/dl Lipase 173 H (11-82) U/L Ur Specific Effort 1.036 H (1.000-1.030) Urine Ketones Trace H (Negative) 04/26/24 04/27/24 04/27/24 Range/Units 22:52 06:05 08:14 RBC (4.70-6.10) M/uL Hgb (14.0-18.0) g/dl Hct (42.0-52.0) % Chloride 108 H (98-107) mmol/L Creatinine 1.44 H (0.6-1.4) mg/dl BUN/Creatinine Ratio 9.0 L (10-20) Glucose (70-99(Fasting)) mg/dl POC Glucose 203 H (70-99) mg/dl Hemoglobin A1c 8.0 H (4.5-5.6) % Calcium 7.9 L (8.6-10.3) mg/dl AST (13-39) U/L Total Creatine Kinase (30-223) U/L Troponin I High Sens 24.1 H 22.9 H (0-20) pg/ml Triglycerides (0-150) mg/dl Lipase 106 H (11-82) U/L Ur Specific Effort (1.000-1.030) Urine Ketones (Negative) 04/27/24 Range/Units 14:33 RBC (4.70-6.10) M/uL Hgb (14.0-18.0) g/dl Hct (42.0-52.0) % Chloride (98-107) mmol/L Creatinine (0.6-1.4) mg/dl BUN/Creatinine Ratio (10-20) Glucose (70-99(Fasting)) mg/dl POC Glucose 50 L* (70-99) mg/dl Hemoglobin A1c (4.5-5.6) % Calcium (8.6-10.3) mg/dl AST (13-39) U/L Total Creatine Kinase (30-223) U/L Troponin I High Sens (0-20) pg/ml Triglycerides (0-150) mg/dl Lipase (11-82) U/L Ur Specific Effort (1.000-1.030) Urine Ketones (Negative) PG Care Time/CCT Total # of Minutes Spent Total Time Spent with Patient: Total time spent is greater than 50% in coordination of care (as documented) at patient's floor/unit and/or counseling patient: Coding Level of Care Code 73720 SUB INP/OBS CARE 2/35MIN Diagnoses Rotator cuff tear, right M75.101 Atypical chest pain R07.89 BRIDGETTE (acute kidney injury) N17.9 Uncontrolled type 2 diabetes mellitus with hyperglycemia E11.65 Glycemic state: with hyperglycemia Hx of pancreatitis Z87.19 Liver cirrhosis K74.60 Anxiety F41.9 (4) DM w/o complication type II, uncontrolled Glycemic state: with hyperglycemia Qualified Code(s): E11.65 - Type 2 diabe ramesh mellitus with hyperglycemia
--- NOTE | 2024-04-27 16:16 | Orthopedic Consultation ---
Date of Service April 27, 2024 Assessment & Plan (1) Right rotator cuff tendonitis: - Patient reported to the emergency department on 04/26/2024 for right shoulder pain, chest pain, tachycardia. The primary focus was cardiac in nature, as to why he has been admitted to the hospital for cardiac monitoring. He also is having right shoulder pain. He was seen in the past by Dr. Jones as well as his PA for right shoulder issues. He has had injections in the past and is not interested in any corticosteroid injection at this time as he feels that the previous ones did not improve any right shoulder pain and he also understands that it impacts his blood sugar. I agree with him that this may not be the best option for him today due to his inconsistent glucose readings, A1c greater than 8 as well as his other medical comorbidities that are taking precedence at this hospital stay. He also states that they have not given him relief in the past, therefore the risks do outweigh the benefits of a corticosteroid injection in his right shoulder today. He has had a positive outcome with a left shoulder ar throscopy by Dr. Jones. He is interested in discussing surgical intervention with Dr. Jones for his right shoulder. No urgent intervention indicated at this time for his right shoulder as there is no infection, abscess, instability, fracture, etc. He should follow-up as an outpatient with Dr. Jones or his PA Darren Torres for outpatient management of his right shoulder. The patient is understanding and is thankful for today's visit. He may be weightbearing as tolerated and range of motion as tolerated in the right shoulder at this time. Please reach out to orthopedics any questions or concerns. (2) Pain in right shoulder: (3) Osteoarthritis, shoulder: History of Present Illness Reason for Consultation: right shoulder pain, re-injury Requesting Physician: . Attending Physician: Collin Teran MD Jordan is and ambidexterous 53 year old male being consulted today for right shoulder pain. He reported the emergency department on 04/26/2024 for evaluation of right shoulder pain, pain and swelling of the right arm as well as tachycardia and chest pain. He was admitted to the hospital for cardiac monitoring. An MRI of the right shoulder was obtained due to the patient's persistent right shoulder pain as well as a reinjury of his right shoulder on 04/22/2024. He was playing basketball when he feels he hyperextended his right shoulder and felt a pop. To note, he is known to [facility] orthopedics as a patient of Dr. Jones as he had a left shoulder arthroscopy a few years ago and also has been being treated for right shoulder issues about 1 to 2 years ago. He states that he has received injections in his right shoulder in the past without relief. He is not interested in any shoulder injections. He did talk with Dr. Jones at his last visit in 2022 1 year ago, about a repeat right shoulder MRI and arthroscopy. He is aware of his MRI results from today and is interested in discussing arthroscopy with Dr. Jones for definitive treatment of his right shoulder pain. He states that he has pain pushing forward, such as benching. He also states that overhead work does also cause some discomfort. He is unable to take NSAIDs due to him being on Eliquis. He is also a diabetic with his last A1c being greater than 8. His sugars have been inconsistent throughout his hospital stay as well. He denies any numbness or tingling right upper extremity. Denies any other questions or concerns today. Allergies Allergy/AdvReac Type Severity Reaction Status Date / Time acetaminophen Allergy Unknown Chest Pain Verified 03/26/24 10:27 & SOB hydrocodone AdvReac Unknown GI ISSUES, Verified 03/26/24 10:27 CHEST PAIN AND SOB Home Medications Medication Instructions Recorded Confirmed Type epinephrine 0.3 mg/0.3 mL 0.3 mg IM DIRECTED PRN Allergic 02/02/22 04/26/24 History injection, auto-injector Reaction insulin aspart U-100 100 unit/mL 0 sliding scale dose subcut AC 02/26/22 04/26/24 History (3 mL) subcutaneous pen (Novolog FlexPen U-100 Insulin aspart) polyethylene glycol 3350 17 gram 17 g PO DAILY PRN Constipation 08/06/22 04/26/24 History oral powder packet (Miralax) sennosides 8.6 mg tablet (Senokot) 17.2 mg PO DAILY PRN Constipation 08/06/22 04/26/24 History duloxetine 60 mg capsule,delayed 120 mg (2 x 60 mg) PO QAM #60 caps 08/07/23 04/26/24 Rx release blood-glucose transmitter (Dexcom #1 ea 09/16/23 01/29/24 Rx G6 Transmitter device) blood-glucose meter,continuous #1 ea 09/25/23 01/29/24 Rx (Dexcom G6 Machine Hostler) tizanidine 2 mg tablet 2 mg PO Q8H PRN muscle spasticity 01/09/24 04/26/24 Rx #90 tabs blood-glucose meter,continuous #1 ea 02/17/24 Rx (Dexcom G7 Machine Hostler) blood-glucose sensor (Dexcom G7 #1 ea 02/17/24 Rx Sensor device) insulin glargine 100 unit/mL (3 See Rx Instructions .Route 02/20/24 04/26/24 Rx mL) subcutaneous pen (Lantus .COMPLEX #45 mL Solostar U-100 Insulin) pen needle, diabetic 31 gauge x #100 ea 03/05/24 Rx 5/16" (BD Ultra-Fine Short Pen Needle) buspirone 5 mg tablet 5 mg PO DAILY #60 tabs 03/11/24 04/26/24 Rx semaglutide 1 mg/dose (4 mg/3 mL) 0.5 mg (0.375 mL) subcut .COMPLEX 03/26/24 04/26/24 Rx subcutaneous pen injector (Ozempic) #3 mL lisinopril 10 mg tablet 10 mg PO QAM #90 tabs 04/01/24 04/26/24 Rx tamsulosin 0.4 mg capsule See Rx Instructions .Route 04/09/24 04/26/24 Rx .COMPLEX #30 caps blood-glucose sensor (Dexcom G6 #3 ea 04/16/24 Rx Sensor device) alprazolam 2 mg tablet 2 mg PO BID #60 tabs 04/19/24 04/26/24 Rx apixaban 5 mg tablet (Eliquis) 5 mg PO BID #60 tabs 04/19/24 04/26/24 Rx blood sugar diagnostic (OneTouch #100 ea 04/19/24 Rx Verio test strips) methylphenidate HCl 20 mg tablet 20 mg PO BID #60 tabs 04/23/24 04/26/24 Rx trazodone 50 mg tablet 50 mg PO HS 04/26/24 04/26/24 History Past Med/Surg History Problem List (Updated 04/27/24 @ 16:24 by Nel Earl PA-C) Right rotator cuff tendonitis History of pulmonary embolism (Acute) Pain in right shoulder (Acute) Pain and swelling of right upper extremity (Acute) Elevated troponin (Acute) Chest pain (Acute) Hx of pancreatitis January 2022 --- resolved s/p lap choley Attention deficit disorder of adult with hyperactivity Odynophagia CKD (chronic kidney disease) (Acute) History of esophagitis (Acute) Uncontrolled diabetes mellitus with hyperglycemia (Acute) Atypical chest pain (Acute) Hypertensive urgency (Acute) Liver cirrhosis Rotator cuff tear, right Elevated PSA GERD (gastroesophageal reflux disease) BPH (benign prostatic hyperplasia) Leucocytosis (Acute) Intractable abdominal pain Adjustment disorder with mixed anxiety and depressed mood Anemia (Acute) PTSD (post-traumatic stress disorder) High anion gap metabolic acidosis Fulminant hepatic failure Thrombocytopenia Hematemesis Osteoarthritis, shoulder Osteoarthritis, knee Fatty infiltration of liver Metabolic syndrome Atypical chest pain Chest pain (Acute) Chronic back pain (Acute) Depression Anxiety Tendinitis of left rotator cuff Chronic left shoulder pain LVH (left ventricular hypertrophy) Chronic anticoagulation Vitamin D deficiency (Acute) Myalgia and myositis (Acute) Esophagitis Chronic use of opiate for therapeutic purpose (Acute) Rotator cuff syndrome of left shoulder DM w/o complication type II, uncontrolled Most recent Hgb A1C 14 01/21/23 ([place]) PT HAS PCP TAMMY TODAY TO DISCUSS Medical History Abnormal EKG Anemia Anxiety Blood clotting disorder Bowel obstruction BPH loc w urin obs/LUTS CKD (chronic kidney disease), stage III Depression Elevated LFTs Gastrointestinal hemorrhage History of alcohol abuse History of bleeding ulcers (~2014) History of coma History of liver failure History of pleural effusion History of pulmonary embolus (PE) History of recent hospitalization Hx of pancreatitis Hypertension Hypertriglyceridemia Insomnia Lesion of liver Obesity Odynophagia On anticoagulant therapy Pancreatitis PTSD (post-traumatic stress disorder) Surgical History History of cardiac cath History of colonoscopy History of ERCP History of esophagogastroduodenoscopy (EGD) Hx laparoscopic cholecystectomy (03/05/22) Hx of surgical procedure S/P arthroscopy of shoulder Family History Mother Aneurysm Other Hypertension No family history of adverse response to anesthesia Denies family history of Ovarian cancer Prostate cancer Myocardial infarction Breast cancer Colorectal cancer Social History Smoking Status: Never smoker Second Hand Exposure: No; Do You Dip or Chew Tobacco: No; Hx Alcohol Use: No Hx Substance Use: No Preferred Language: Belarusian Communication Ability: Effective Visual Impairment: No Limitations Hearing Ability: Normal Corporate Representative Required: No Beliefs That Will Affect Care: None marital status: Single Current Living Situation: Alone Current Living Situation Comment: with a friend current occupational status: disabled Other Information That Helps Us Care for You: No Feels Safe at Home: Yes Safety Concerns: Feels Safe At This Time Childhood Exposure to Second-Hand Smoke: No Diet: regular Dental Care, Regularly: Yes Physical Activity Frequency: Does not Exercise Seatbelt Use: always Sunscreen Use: No Assistive Devices: None Review of Systems All systems reviewed & are unremarkable except as noted in HPI & below. Physical Exam General: Alert and oriented. In no acute distress at today's visit. Please see musculoskeletal below for right shoulder exam. Cardiovascular Vascularity grossly intact Musculoskeletal Right shoulder: Inspection unremarkable. No erythema, edema, deformities noted when compared to the left shoulder. When performing active range of motion, he is able to get his right shoulder to 90 degrees forward flexion and then pain settled in. I was able to get him just a little bit further, however it did cause some discomfort. With active abduction, he is able to get to 90 degrees. He is still painful with passive range of motion as well as I cannot get him much further than 90 degrees. He does have symmetric external rotation. He is painful with internal rotation when compared to the left. Positive Meredith Sagar. He is able to perform cross body adduction with some anterior shoulder discomfort. He is tender to the AC joint. He is diffusely tender to the right shoulder. Strength testing reveals 5 out of 5 external rotation. 4+ out of 5 abduction. Sensation intact. Distal pulses palpated. Cap refill less than 3 seconds. Psychiatric A+Ox3, euthymic affect Results & Data Results & Data Laboratory Results Abnormal lab results 04/26/24 04/26/24 04/26/24 Range/Units 16:46 19:00 19:05 RBC 4.61 L (4.70-6.10) M/uL Hgb 13.7 L (14.0-18.0) g/dl Hct 40.5 L (42.0-52.0) % Chloride 108 H (98-107) mmol/L Creatinine 1.72 H (0.6-1.4) mg/dl BUN/Creatinine Ratio 7.0 L (10-20) Glucose 100 H (70-99(Fasting)) mg/dl POC Glucose (70-99) mg/dl Hemoglobin A1c (4.5-5.6) % Calcium (8.6-10.3) mg/dl AST 43 H (13-39) U/L Total Creatine Kinase 802 H (30-223) U/L Troponin I High Sens 22.2 H (0-20) pg/ml Triglycerides 178 H (0-150) mg/dl Lipase 173 H (11-82) U/L Ur Specific Spencer 1.036 H (1.000-1.030) Urine Ketones Trace H (Negative) 04/26/24 04/27/24 04/27/24 Range/Units 22:52 06:05 08:14 RBC (4.70-6.10) M/uL Hgb (14.0-18.0) g/dl Hct (42.0-52.0) % Chloride 108 H (98-107) mmol/L Creatinine 1.44 H (0.6-1.4) mg/dl BUN/Creatinine Ratio 9.0 L (10-20) Glucose (70-99(Fasting)) mg/dl POC Glucose 203 H (70-99) mg/dl Hemoglobin A1c 8.0 H (4.5-5.6) % Calcium 7.9 L (8.6-10.3) mg/dl AST (13-39) U/L Total Creatine Kinase (30-223) U/L Troponin I High Sens 24.1 H 22.9 H (0-20) pg/ml Triglycerides (0-150) mg/dl Lipase 106 H (11-82) U/L Ur Specific Spencer (1.000-1.030) Urine Ketones (Negative) 04/27/24 04/27/24 Range/Units 14:33 14:36 RBC (4.70-6.10) M/uL Hgb (14.0-18.0) g/dl Hct (42.0-52.0) % Chloride (98-107) mmol/L Creatinine (0.6-1.4) mg/dl BUN/Creatinine Ratio (10-20) Glucose (70-99(Fasting)) mg/dl POC Glucose 50 L* 63 L* (70-99) mg/dl Hemoglobin A1c (4.5-5.6) % Calcium (8.6-10.3) mg/dl AST (13-39) U/L Total Creatine Kinase (30-223) U/L Troponin I High Sens (0-20) pg/ml Triglycerides (0-150) mg/dl Lipase (11-82) U/L Ur Specific Spencer (1.000-1.030) Urine Ketones (Negative) Diagnostic Findings MRI right shoulder on 04/27/24 IMPRESSION: Mild supraspinatus tendinosis, with interstitial degeneration at the footprint measuring approximately 5 mm. Mild bursal surface fraying. Mild subacromial-subdeltoid bursitis. Moderate degeneration of the acromioclavicular joint. Myself as well as Dr. Aguirre reviewed the MRI images and report above. Agree with impression above. PG Care Time/CCT Total # of Minutes Spent Total Time Spent with Patient: Total time spent is greater than 50% in coordination of care (as documented) at patient's floor/unit and/or counseling patient: Coding Level of Care Code 84470 IN/OBS CONSULT LVL 3,45M Diagnoses Right rotator cuff tendonitis M75.81 Pain in right shoulder M25.511 Chronicity: acute Osteoarthritis, shoulder M19.019 (2) Pain in right shoulder Chronicity: acute Qualified Code(s): M25.511 - Pain in right shoulder
[2024-04-27] MEDS ORDERED: traZODone HCL 50 MG TAB PO SCH (21:00)
[2024-04-28 07:09] LABS: BUN Creatinine Ratio 7.4 (10-20); Calcium 7.7 mg/dl (8.6-10.3); Creatinine Clr Calc Pharmacy 99.3 ml/min; Est GFR (African American) 79.9 ml/min; Est GFR (Non-African American) 68.9 ml/min; Potassium 3.8 mmol/L (3.5-5.1)
--- NOTE | 2024-04-28 10:25 | Discharge Summary ---
Date of Service April 28, 2024 Admission HPI Per Admitting Provider Jordan is a 53-year-old male with PMH of T2DM, anxiety, depression, atypical chest pain, metabolic syndrome, PTSD, GERD, BPH, liver cirrhosis, HTN urgency, ADHD, and CKD. He presented for right-sided shoulder/chest pain and tachycardia on 04/26. Patient reports he has had ongoing right shoulder pain since he tore something in it last year; however it got acutely exacerbated last 04/22. The pain is located in his right shoulder, with radiation down the right arm into the fingers, as well as across the chest wall. He describes it as a sharp, stabbing pain that he rates 8/10 at worst. Patient does not take any pain medicine at home; he is unable to take Tylenol. The pain is worse with movements. Not worse with eating. He does have an upcoming appointment to see orthopedics. However, he came in today as his heart rate was elevated over 100 bpm at rest and he became concerned. Patient took all his regular morning medications today; no recent change in medications. He takes Eliquis for histor y of DVT/PE x 4; on lifelong anticoagulation. No PMH of HI or stroke. Patient denies smoking, tobacco use, recent alcohol use. Patient is hypertensive at 158/103 at time of admission; heart rate 85 bpm. ED course: Aspirin 324 mg p.o. Nitrostat 0.4 mg SL Oxycodone 5 mg p.o. NSS 500 mL IV ROS: Patient endorses night-sweats x 1 episode, right shoulder pain with radiation across the chest, intermittent nausea, and right arm swelling/pain/numbness/tingling. Patient denies fever, chills, dizziness, lightheadedness, SOB, pleuritic CP, cough, abdominal pain, vomiting, or diarrhea. Admission Exam Per Admitting Provider General: Mild acute physical distress secondary to right shoulder pain; anxious; pleasant affect; non-toxic appearing; cooperative; SpO2 96% on RA HEENT: normocephalic, atraumatic; no scleral icterus; PERRLA; vision and hearing grossly intact Neck: supple; no lymphadenopathy; trachea midline Skin: warm, dry without signs of tenting; no cyanosis; no rashes, bruising, lesions, or erythema noted CV: chest wall is mildly TTP substernally and on the right side; left chest wall NTP; RRR; S1/S2 normal; no murmurs/rubs/gallops; pulses intact and symmetric at radial, DP, and PT Lungs: no acute respiratory distress; symmetrical chest wall expansion; clear breath sounds across all lung méndez w/o adventitious sounds; no wheezing ABD: Soft, NTP; BS present; no rebound/guarding; no distention MSK: Right shoulder is TTP; clinical social worker strength 5/5 bilaterally, but he reports this does lead to pain in the right shoulder; no tics or fasciculations; no edema noted in the LEs b/l, nonerythematous Neuro: A&Ox3; normal mood and affect; fluent speech; no focal deficits; sensation grossly intact in the LEs b/l Principal Diagnosis Right rotator cuff tendonitis Musculoskeletal chest pain Acute kidney injury Discharge Exam General: Awake, conversant Heart: S1, S2/regular rate and rhythm, no murmur rubs or gallops Lungs: Clear to auscultation bilaterally. Normal effort Abdomen: Soft/nontender/nondistended. No hepatosplenomegaly Extremities: No clubbing/cyanosis. No edema Behavior: Appropriate, cooperative Discharge Data Allergies Allergy/AdvReac Type Severity Reaction Status Date / Time acetaminophen Allergy Unknown Chest Pain Verified 04/28/24 14:58 & SOB hydrocodone AdvReac Unknown GI ISSUES, Verified 04/28/24 14:58 CHEST PAIN AND SOB Consultations 04/26/24 21:00 ED Decision to Admit Stat 04/27/24 14:38 Consult Orthopedic Surgery Routine Ordered Studies 04/26/24 16:54 CT angio chest PE protocol Stat US venous doppler UE RT Stat 04/26/24 17:36 CT abd pelvis IV con only Stat 04/27/24 00:46 MR shoulder RT wo con Routine Hospital Course (1) Rotator cuff tear, right: Patient injured his shoulder 1 year ago, but acutely exacerbated on 04/22 MRI of right shoulder reviewed. Orthopedics consulted. Recommended outpatient follow-up. Pain management with oxycodone. (2) Atypical chest pain: Patient initially presented for tachycardia around 100 bpm at rest; patient was concerned Pain radiates across the right shoulder into the chest wall; reproducible on exam Chest CTA without acute findings Troponin mildly elevated; 17-->22 on arrival. Has remained flat. Echocardiogram unremarkable Suspect MSK at this time (3) BRIDGETTE (acute kidney injury): BUN 12, creatinine 1.72 (baseline 1.19), and EGFR 45 on admission With IV fluids, creatinine came down from 1.7-1.4. Patient says that he has been playing basketball out in the heat and could be dehydrated. Avoid nephrotoxic agents for possible; hold lisinopril for now CK in the 800s. Creatinine normalized Resolved Hold lisinopril upon discharge as blood pressure has been fairly stable without it. (4) DM w/o complication type II, uncontrolled: Last A1c at 8.3% on 06/24/2023 Hold Ozempic Per med rec, patient was on Lantus 50 units twice daily Dose reduced Lantus to 20u BID in the setting of acute kidney injury But today is hypoglycemic in the 50s Further reduced dose to 12 units twice daily Patient tells me that he has been using lesser and lesser dose of Lantus lately. His diabetes is very well-controlled. Now that renal function is normal, will discharge him on his home regimen of 1 times daily dosing of Lantus A1c 8 (5) Hx of pancreatitis: Lipase mildly elevated at 173 A/P CT revealed unremarkable pancreas Hx of pancreatitis and January 2022; resolved s/p lap [place] Triglyceride levels only mildly elevated at 178 Lipase today is 106. No abdominal pain (6) Liver cirrhosis: Avoid giving Tylenol for shoulder pain (7) Anxiety: (8) Right rotator cuff tendonitis: Plan Discharge to home Total Time Total Time Spent Total Time Spent (In Minutes): 35 Discharge Plan Discharge Items Patient Disposition: Home - Self-Care Reason For Visit: TACHYCARDIA, RIGHT SHOULDER PAIN Discharge Diagnosis: Right rotator cuff tendonitis Musculoskeletal chest pain Acute kidney injury Condition on Discharge: Good Activity: Resume your previous activity Non-emergency contact: Primary Care Provider Call non-emergency contact if: you have any medication questions and your symptoms worsen Follow-up/Referrals: Edgardo Azevedo DO [Primary Care Provider] - 05/05/24 11:20 am Diet: Carb Consistent or DM2 and Heart Healthy Addtl Attending Provider Instructions: Advised to follow-up with PCP in 1 week Advised to follow-up with orthopedics as per schedule Pending Studies at Discharge: No Stand-Alone Forms: My [facility] Medications and DC Order Prescriptions: Continued duloxetine 60 mg capsule,delayed release(DR/EC) 120 mg PO QAM Qty: 60 2RF (DME) Dexcom G6 Transmitter Device See Rx Instructions .Route Qty: 1 2RF Rx Instructions: As directed (DME) Dexcom G6 Cleaner Touch Up Worker Misc See Rx Instructions .Route Qty: 1 0RF Rx Instructions: As directed tizanidine 2 mg tablet 2 mg PO Q8H PRN (Reason: muscle spasticity) Qty: 90 0RF (DME) Dexcom G7 Cleaner Touch Up Worker Misc See Rx Instructions .Route Qty: 1 0RF Rx Instructions: As directed (DME) Dexcom G7 Sensor Device See Rx Instructions .Route Qty: 1 5RF Rx Instructions: [place] directed [place] [place] pen needle, diabetic [BD Ultra-Fine Short Pen Needle] 31 gauge x 5/16" needle See Rx Instructions .Route Qty: 100 2RF Rx Instructions: As directed BID with insulin Dx E11.9 buspirone 5 mg tablet 5 mg PO DAILY Qty: 60 2RF Rx Instructions: MANAGED BY PSYCHIATRIST Ozempic 1 mg/dose (4 mg/3 mL) pen injector 0.5 mg subcut .COMPLEX Qty: 3 2RF Rx Instructions: once per week tamsulosin 0.4 mg capsule See Rx Instructions .ROUTE .COMPLEX Qty: 30 5RF Dose Instruction: take 1 capsule by mouth at bedtime Rx Instructions: take 1 capsule by mouth at bedtime (DME) Dexcom G6 Sensor Device See Rx Instructions .Route Qty: 3 5RF Rx Instructions: As directed [place] [place] OneTouch Verio test strips Strip See Rx Instructions .Route Qty: 100 1RF Rx Instructions: As directed alprazolam 2 mg tablet 2 mg PO BID Qty: 60 0RF Eliquis 5 mg tablet 5 mg PO BID Qty: 60 5RF Patient Comments: YESTERDAY MORNING LAST DOSE methylphenidate HCl 20 mg tablet 20 mg PO BID Qty: 60 0RF Hold Instructions: Pancreatitis epinephrine 0.3 mg/0.3 mL auto-injector 0.3 mg IM DIRECTED PRN (Reason: Allergic Reaction) Rx Instructions: Insurance only covers [employer] ([id number]) sennosides [Senokot] 8.6 mg tablet 17.2 mg PO DAILY PRN (Reason: Constipation) Rx Instructions: purchase [id number] polyethylene glycol 3350 [Miralax] 17 gram powder in packet 17 g PO DAILY PRN (Reason: Constipation) Rx Instructions: purchase [id number] trazodone 50 mg tablet 50 mg PO HS Rx Instructions: MANAGED BY PSYCHIATRIST Changed insulin glargine [Lantus Solostar U-100 Insulin] 100 unit/mL (3 mL) insulin pen See Rx Instructions .ROUTE .COMPLEX Qty: 45 0RF Dose Instruction: INJECT 50 unit (0.5 mL) subcutaneously twice a day Rx Instructions: INJECT 50 unit (0.5 mL) subcutaneously daily Discontinued lisinopril 10 mg tablet 10 mg PO QAM Qty: 90 1RF insulin aspart U-100 [Novolog FlexPen U-100 Insulin] 100 unit/mL (3 mL) ins ulin pen 0 sliding scale dose SQ AC Rx Instructions: per sliding scale No Action oxycodone 10 mg tablet 10 mg PO Q6H PRN (Reason: pain) Qty: 120 0RF Discharge Orders: Discharge Order (Routine); Ordered 04/28/24 Ordered By: Collin Davis/Other Patient Handouts: Managing Type 2 Diabetes Admission Data Admit Date/Time: 04/26/24 21:41 Attending Provider: Collin Teran Admit Provider: Azael Jon Primary Care Provider: Edgardo Azevedo Other Providers: Azael Jon; Jose Aguirre Other Interventions: Discharge Summary Assessment (RN) Last Done: 04/28/24 13:45 Coding Level of Care Code 46658 INP/OBS DISCH >30 MIN Diagnoses Rotator cuff tear, right M75.101 Atypical chest pain R07.89 BRIDGETTE (acute kidney injury) N17.9 Uncontrolled type 2 diabetes mellitus with hyperglycemia E11.65 Glycemic state: with hyperglycemia Hx of pancreatitis Z87.19 Liver cirrhosis K74.60 Anxiety F41.9 Right rotator cuff tendonitis M75.81
== END 2024-04-28 14:39 | disposition home or self-care (01) ==
LOC: ED 16:07 → 2N 16:07 → SUATTDRO 21:41 → 2N 04-27 00:02 → 3N 04-27 22:52